=== PATIENT | female | born 1965 | race Caucasian/White ===

== ENCOUNTER 2022-10-14 13:50 | Outpatient (OUT) | payer BC, SELFPAY ==
--- NOTE | 2022-10-14 14:03 | XR_ITS ---
The [address] [address] Patient Name: CHINO SANDERS MRN: [id number] date: 1965 Sex: F Assigned Patient Location: [place] Current Patient Location: [place] Accession/Order Number: [id number] Exam Date: 10/14/2022 14:31 Report Date: 10/16/2022 17:19 At the request of: NON-STAFF PHYSICIAN Procedure: XR abdomen 1V EXAM: XR abdomen 1V HISTORY: Kidney stone N20.0 COMPARISON: None. TECHNIQUE: Abdominal X-ray, 1 view FINDINGS: Support devices: None. Bowel: Unremarkable bowel gas pattern. No bowel dilatation. Constipation. There are 0.2 cm and 0.3 cm calcific density overlying the right and left kidneys respectively, may represent nephrolithiasis.. Cholecystectomy clips are seen overlying the right upper abdomen. Additional findings: None. XR/XR abdomen 1V IMPRESSION: 0.2 cm and 0.3 cm calcific density overlying the right and left kidneys respectively, may represent nephrolithiasis.. Electronically authenticated by: BHARAT HARRIS Date: 10/16/2022 17:19
--- NOTE | 2022-10-14 14:07 | US_ITS ---
The [address] [address] Patient Name: CHINO SANDERS MRN: [id number] date: 1965 Sex: F Assigned Patient Location: Current Patient Location: Accession/Order Number: [id number] Exam Date: 10/14/2022 14:08 Report Date: 10/16/2022 07:35 At the request of: NON-STAFF PHYSICIAN Procedure: US renal BI EXAM: Renal ultrasound CLINICAL INDICATION: Kidney stone. TECHNIQUE: Grayscale and color Doppler imaging was obtained of both kidneys. FINDINGS: RIGHT: No hydronephrosis. Cortical echogenicity and thickness is preserved. The kidney measures 9.3 cm length. No abnormal renal masses identified. Multiple echogenic foci along the calyces measuring up to 3 mm. LEFT: No hydronephrosis. Cortical echogenicity and thickness is preserved. The kidney measures 9.5 cm length. No abnormal renal masses identified. Echogenic focus along a calyx measuring up to 3 mm. US/US renal BI IMPRESSION: 1. No hydronephrosis. 2. Bilateral nephrolithiasis. Electronically authenticated by: ЕЛЕНА VALDEZ Date: 10/16/2022 07:35
== END 2022-10-14 13:51 | disposition home or self-care (01) ==
LOC: US 13:57
DX: N20.0 Calculus of kidney (principal)
CPT/HCPCS: 74018; 76775

== ENCOUNTER 2022-12-19 12:40 | Outpatient (OUT) | payer BC, SELFPAY ==
--- NOTE | 2022-12-19 12:44 | MR_ITS ---
The [address] [address] Patient Name: CHINO SANDERS MRN: [id number] date: 1965 Sex: F Assigned Patient Location: MRI Current Patient Location: MRI Accession/Order Number: [id number] Exam Date: 12/19/2022 13:00 Report Date: 12/19/2022 14:05 At the request of: NON-STAFF PHYSICIAN Procedure: MR head/brain wo/w con MR head/brain wo/w con, 12/19/2022 1:00 PM EDT INDICATION: Malignant Neoplasm Of Lung C34.12 COMPARISON: Prior MRI of brain dated 07/07/2022 TECHNIQUE: Multiplanar, multisequential MRI images of brain were obtained without and with injection of contrast. FINDINGS: The cerebral sulci as well as ventricular system are appropriate for age. There is no restricted diffusion. Hyperintensities on T2 and FLAIR images in the zamora radiata and centrum semiovale with sparing of U fibers are nonspecific, most likely due to posttreatment changes. There is no intracranial mass, mass effect, midline shift, intra or extra-axial fluid collection or large hemorrhage. No abnormal enhancing lesion is noted. Normal flow-void in the intracranial vessels is noted. The visualized portions of orbits, mastoid air cells as well as paranasal sinuses are unremarkable. MR/MR head/brain wo/w con IMPRESSION: No acute intracranial process is noted. No evidence of metastasis in the current study. Electronically authenticated by: IRAJ PENALOZA Date: 12/19/2022 14:05
== END 2022-12-19 12:41 | disposition home or self-care (01) ==
LOC: MRI 12:41
DX: C34.12 Malignant neoplasm of upper lobe, left bronchus or lung (principal)
CPT/HCPCS: 70553; A9575

== ENCOUNTER 2023-02-14 15:25 | Outpatient (OUT) | payer BC, SELFPAY ==
[2023-02-14 15:50] LABS: Hematocrit 31.6 % (36.0-48.0); Hemoglobin 10.1 g/dL (12.0-16.0); Mean Corpuscular Hemoglobin 37.8 pg (26.7-34.0); Mean Corpuscular Volume 118.4 fL (81.0-99.0); Mean Platelet Volume 9.1 fL (9.5-13.5); Platelet Count 220 10^3/uL (150-450); Red Blood Count 2.67 10^6/uL (4.20-5.40); Red Cell Distribution Width 14.4 % (11.0-15.0); White Blood Count 7.6 10^3/uL (4.0-11.0)
[2023-02-14 16:07] LABS: Eosinophils Absolute Manual 0.07 10^3/uL (0.00-0.70); Lymphocytes Absolute Manual 1.36 10^3/uL (1.20-3.80); Segmented Neut Absolute Manual 5.85 10^3/uL (1.4-6.5)
[2023-02-14 16:08] LABS: Anisocytosis 1+; Macrocytosis 2+
[2023-02-14 16:36] LABS: Alanine Aminotransferase 13 U/L (14-59); Albumin Globulin Ratio 0.8; Albumin Level 2.9 g/dL (3.4-5.0); Alkaline Phosphatase 118 U/L (46-116); Anion Gap 10.4; Aspartate Amino Transferase 17 U/L (15-37); BUN Creatinine Ratio 16.7; Bilirubin Total 0.3 mg/dL (0.2-1.0); Calcium 8.5 mg/dL (8.5-10.1); Carbon Dioxide 29.3 mmol/L (21.0-32.0); Chloride 101 mmol/L (98-107); Estimated GFR (African America >60 (>=60); Estimated GFR (Non-African Ame >60 (>=60); Globulin 3.5 g/dL; Glucose 92 mg/dL (74-106); Potassium 4.7 mmol/L (3.5-5.1); Sodium 136 mmol/L (136-145); Thyroid Stimulating Hormone 0.826 uIU/mL (0.358-3.740); Total Protein 6.4 g/dL (6.4-8.2)
== END 2023-02-14 15:26 | disposition home or self-care (01) ==
LOC: LAB 15:30
PROVIDERS: Visit Provider Physician Assistant Medical
DX: D64.9 Anemia, unspecified (principal); C34.12 Malignant neoplasm of upper lobe, left bronchus or lung; R53.81 Other malaise; R53.83 Other fatigue
CPT/HCPCS: 36415; 80053; 84443; 85027

== ENCOUNTER 2023-04-27 12:29 | Outpatient (OUT) | payer BC, SELFPAY ==
--- NOTE | 2023-04-27 12:35 | MR_ITS ---
The [address] [address] Patient Name: CHINO SANDERS MRN: [id number] date: 1965 Sex: F Assigned Patient Location: MRI Current Patient Location: MRI Accession/Order Number: [id number] Exam Date: 04/27/2023 12:55 Report Date: 04/27/2023 13:53 At the request of: RAPHAEL JOLLEY Procedure: MR head/brain wo/w con EXAM: MR head/brain wo/w con HISTORY: malignant neoplasm of hilus of lung C34.00 COMPARISON: Brain MRI 12/19/2022. Technique: Multiplanar T1-weighted, axial FLAIR, and susceptibility images were obtained without intravenous contrast. Following intravenous gadolinium-based contrast administration, axial T2-weighted, diffusion, and T1-weighted images (in multiple planes) were obtained. Contrast: 7 mL Dotarem Findings: There is no mass effect, midline shift, or evidence of intracranial hemorrhage. The ventricles are proportionate to the cerebral sulci. Normal major vascular intracranial flow-voids. There is marked, confluent high signal intensity abnormality on T2/FLAIR primarily throughout the periventricular white matter with relative sparing of the subcortical U fibers, which is nonspecific, however which may be seen with post treatment changes, such as chemotherapy induced leukoencephalopathy and/or sequelae of underlying small vessel ischemic disease. Mild, patchy nonspecific high signal intensity abnormality is also seen in the lenard. There is moderate generalized cerebral atrophy. Postcontrast images demonstrate no abnormal intracranial enhancement. No abnormality of the skull marrow signal. There is a left mastoid air cell effusion and minimal fluid in the right mastoid air cells. Paranasal sinuses appear relatively clear. The orbits are grossly unremarkable. MR/MR head/brain wo/w con Impression: No convincing evidence for metastatic disease of the head or abnormal enhancement. Chronic, diffuse white matter changes are again seen. Electronically authenticated by: MERRY SILVA Date: 04/27/2023 13:53
== END 2023-04-27 12:30 | disposition home or self-care (01) ==
LOC: MRI 12:29
PROVIDERS: Visit Provider Physician Assistant Medical
DX: C34.00 Malignant neoplasm of unspecified main bronchus (principal); R53.81 Other malaise; R53.83 Other fatigue; R51.9 Headache, unspecified
CPT/HCPCS: 70553; A9575

== ENCOUNTER 2023-11-03 09:58 | Outpatient (OUT) | payer BC, SELFPAY ==
--- NOTE | 2023-11-03 10:07 | US_ITS ---
The [address] [address] Patient Name: CHINO SANDERS MRN: [id number] date: 1965 Sex: F Assigned Patient Location: US Current Patient Location: US Accession/Order Number: [id number] Exam Date: 11/03/2023 10:26 Report Date: 11/03/2023 11:06 At the request of: NASRIN RINCON Procedure: US renal BI EXAMINATION: US renal BI HISTORY: Renal stone COMPARISON: Ultrasound kidneys 10/14/2022 TECHNIQUE: Ultrasound examination was performed of the kidneys and urinary bladder. FINDINGS: RIGHT KIDNEY: Contain several nonobstructing stones, largest is 2 mm. Mild cortical thinning. Normal parenchymal echogenicity. Color Doppler demonstrates blood flow within the kidney. Kidney: 8.4 x 4.1 x 3.5 cm LEFT KIDNEY: No evidence of pelvocaliectasis, mass, or calculi. Mild cortical thinning. Normal parenchymal echogenicity. Color Doppler demonstrates blood flow within the kidney. Kidney: 8.0 x 3.7 x 4.2 cm BLADDER: No visible wall thickening, mass, or calculi. US/US renal BI IMPRESSION: 1. Nonobstructing right nephrolithiasis. 2. Minimal cortical thinning bilaterally; likely age related. Electronically authenticated by: SARA KIDD Date: 11/03/2023 11:06
--- NOTE | 2023-11-03 10:25 | XR_ITS ---
The [address] [address] Patient Name: CHINO SANDERS MRN: [id number] date: 1965 Sex: F Assigned Patient Location: US Current Patient Location: US Accession/Order Number: [id number] Exam Date: 11/03/2023 10:20 Report Date: 11/03/2023 10:50 At the request of: NASRIN RINCON Procedure: XR abdomen 1V EXAMINATION: XR abdomen 1V HISTORY: Renal stone COMPARISON: XR abdomen 10/14/2022 FINDINGS: KIDNEY/URETER - RIGHT: No visible renal or ureteral calcifications. KIDNEY/URETER - LEFT: No visible renal or ureteral calcifications. PELVIS: Numerous pelvic calcifications which appear grossly stable with most favoring phleboliths. BOWEL: No abnormal dilation or deviation. BONES: No acute abnormality. OTHER: Negative. No abnormal gaseous collections. XR/XR abdomen 1V IMPRESSION: 1. No visible urinary tract calculi, but evaluation is limited by dense overlying bowel content. 2. No appreciable ureteral stones, but there are numerous pelvic calcifications. A distal ureteral stone cannot be excluded. Electronically authenticated by: SARA KIDD Date: 11/03/2023 10:50
== END 2023-11-03 09:59 | disposition home or self-care (01) ==
LOC: US 09:58
PROVIDERS: Visit Provider Physician Assistant
DX: N20.0 Calculus of kidney (principal)
CPT/HCPCS: 74018; 76775

== ENCOUNTER 2024-01-26 12:49 | Outpatient (OUT) | payer BC, SELFPAY ==
--- NOTE | 2024-01-26 12:52 | MR_ITS ---
The [address] [address] Patient Name: CHINO SANDERS MRN: [id number] date: 1965 Sex: F Assigned Patient Location: MRI Current Patient Location: MRI Accession/Order Number: [id number] Exam Date: 01/26/2024 13:00 Report Date: 01/26/2024 15:54 At the request of: MICHAEL RDZ Procedure: MR head/brain wo/w con EXAM: MR head/brain wo/w con HISTORY: Malignant Neoplasm Of Lung, Syncope And Collapse COMPARISON: MRI brain 04/27/2023, 12/19/2022, 07/07/2022. TECHNIQUE: Multisequence MRI brain was performed with and without intravenous contrast. FINDINGS: Exam is distorted secondary to motion artifact. Findings are made within these confines. There is no acute infarct, no midline shift or abnormal extraaxial fluid collections. There is a 0.8 x 0.7 cm cortical/subcortical rim enhancing rounded lesion with restricted diffusion in the right frontal lobe (series 49488/14), new since 04/27/2023. There is surrounding mild vasogenic edema. There is mild to moderate cerebral volume loss. Redemonstrated is nonspecific confluent T2/FLAIR signal abnormality in the central lenard and supratentorial white matter. The major intracranial flow voids are visualized. The cerebellar tonsils are normal in position. The orbits demonstrate no suspicious enhancement or any focal lesions. The paranasal sinuses show no air-fluid level. There is chronic bilateral mastoid effusion, left greater than right. The calvarium and extracranial soft tissues are unremarkable. MR/MR head/brain wo/w con IMPRESSION: Within the limitations of motion artifact, no discrete acute intracranial abnormality identified. Interval development of a 0.8 x 0.7 cm cortical/subcortical rim-enhancing lesion with mild surrounding vasogenic edema in the right frontal lobe since 04/27/2023, suggestive of intracranial metastasis. Stable nonspecific supratentorial and central pontine white matter changes, likely relates to combination of posttreatment related change and small vessel disease, [id number] cerebral atrophy. Electronically authenticated by: ISSA RUSHING Date: 01/26/2024 15:54
== END 2024-01-26 12:50 | disposition home or self-care (01) ==
LOC: MRI 12:49
PROVIDERS: Visit Provider Internal Medicine Hematology & Oncology
DX: C34.90 Malignant neoplasm of unspecified part of unspecified bronchus or lung (principal); R55 Syncope and collapse
CPT/HCPCS: 70553; A9575

== ENCOUNTER 2024-03-29 13:20 | Outpatient (OUT) | payer BC, SELFPAY | END 2024-03-29 13:21 | disposition home or self-care (01) | PROVIDERS: Visit Provider Physician Assistant Medical | DX: R30.0 Dysuria (principal); C34.00 Malignant neoplasm of unspecified main bronchus | CPT/HCPCS: 81003; 87086 ==

== ENCOUNTER 2024-05-07 14:53 | Outpatient (OUT) | payer BC, SELFPAY ==
--- NOTE | 2024-05-07 14:55 | XR_ITS ---
The [address] [address] Patient Name: CHINO SANDERS MRN: [id number] date: 1965 Sex: F Assigned Patient Location: US Current Patient Location: US Accession/Order Number: [id number] Exam Date: 05/07/2024 15:44 Report Date: 05/07/2024 15:47 At the request of: NASRIN DINH Procedure: XR abdomen 1V SINGLE VIEW ABDOMEN COMPARISON: 11/02/2021 and 11/03/2023 CLINICAL DATA: Follow-up right-sided kidney stone. Supine view of the abdomen and pelvis was obtained. There is air within the stomach as well as small and large bowel loops. There is also stool throughout the colon. Both kidneys are obscured, greater on the left. No obvious radiopaque renal stones are identified. Pelvic phleboliths are again seen. There is atherosclerotic disease. No soft tissue masses are noted. There are mild degenerative changes at the spine. There are hemostasis clips from prior cholecystectomy. XR/XR abdomen 1V IMPRESSION: NONSPECIFIC BOWEL GAS PATTERN. NO OBVIOUS RADIOPAQUE CALCULI. Impression dictated by: Fany Shah M.D.05/07/2024 3:47 PM Dictation Location: [place] [address] Electronically authenticated by: [id number] Y Date: 05/07/2024 15:47
--- NOTE | 2024-05-07 14:55 | US_ITS ---
The [address] [address] Patient Name: CHINO SANDERS MRN: [id number] date: 1965 Sex: F Assigned Patient Location: US Current Patient Location: US Accession/Order Number: [id number] Exam Date: 05/07/2024 16:06 Report Date: 05/07/2024 16:10 At the request of: NASRIN DINH Procedure: US renal BI BILATERAL RENAL AND BLADDER ULTRASOUND CLINICAL HISTORY: Follow-up kidney stones COMPARISON: 11/03/2023 Estimation of renal size is approximately 8.8 cm on the right and 10.0 on the left. There are multiple echogenic foci within the right kidney suggesting stones. The largest is at the lower pole measuring 4 mm. No hydronephrosis is seen. No renal mass lesions were imaged. There is no perinephric fluid. The urinary bladder is poorly distended with a volume of 23 mL. This limits evaluation. US/US renal BI IMPRESSION: RIGHT NEPHROLITHIASIS. NO OBSTRUCTIVE UROPATHY. Impression dictated by: Fany Shah M.D.05/07/2024 4:10 PM Dictation Location: [place] [address] Electronically authenticated by: [id number] Y Date: 05/07/2024 16:10
== END 2024-05-07 14:54 | disposition home or self-care (01) ==
LOC: US 14:53
PROVIDERS: Visit Provider Physician Assistant
DX: N20.0 Calculus of kidney (principal)
CPT/HCPCS: 74018; 76775

== ENCOUNTER 2024-06-07 18:34 | Emergency (ER) | payer BC, SELFPAY ==
[2024-06-07] VITALS (21 sets, daily range): BP systolic 158–172; BP diastolic 72–101; PULSE 78–100; TEMP 37.1; O2SAT 97–100; BMI 18.0
--- OUTSIDE RECORDS SUMMARY | 2024-06-07 18:45 | XMS_ITS | CCD ---
Author Organization [facility] Care Team Providers Care Dye Lab Technician Name Role Phone Milton Madison Primary Care Provider Gasper Fong Unavailable Shaniqua OWUSU Mohamed Unavailable Shaniqua OWUSU Mohamed Unavailable [phone] Onofre OWUSU Stacy Unavailable Chris Blackburn Unavailable Milton Madison Primary Care Provider Gasper Fong Unavailable [phone] Shaniqua OWUSU, Mohamed Unavailable Onofre OWUSU Stacy Unavailable [phone] DO Finn Mejias Attending Provider NO FAMILY, PHYSICIAN Primary Care Provider Unava ilable Milton Madison Primary Care Provider Gasper Fong Unavailable Shaniqua OWUSU, Mohamed Unavailable [phone] Onofre OWUSU Stacy Unavailable [phone] Gilson Vergara Unavailable Milton Madison Primary Care Provider Gasper Fong Unavailable Shaniqua OWUSU, Mohamed Unavailable [phone] Onofre OWUSU Stacy Unavailable Mert Mcgovern MD E Unavailable NO FAMILY, PHYSICIAN Primary Care Unavailable Finn Mejias Attending Unavailabl e Randell, Finn Byrnes Admitting Unavailabl e ONOFRE, STACY Attending Unavailable ONOFRE, STACY Admitting Unavailable REQUEST, NONE LISTED Primary Care Unavaila ble ZIEBER, DR SARA [place] Consulting Unavailable KARRASHARD, STACY Consulting Unavailable MISC, DR GIRALDO Attending Unavailable REQUEST, NONE LISTED Primary Care Unavaila ble MISC, DR GIRALDO Consulting Unavailable MISC, DR GIRALDO Admitting Unavailable CHE, REI Consulting Unavailable SAMREEN, DR NOEMÍ Byrnes Consulting Unavailable SAMREEN, DR NOEMÍ Byrnes Attending Unavailable REQUEST, NONE LISTED Primary Care Unavaila ble SAMREEN, DR NOEMÍ Byrnes Admitting Unavailable RANDELL, MERRY Consulting Unavailable RANDELL, MERRY Attending Unavailable RANDELL, MERRY Admitting Unavailable REQUEST, NONE LISTED Primary Care Unavaila ble MCKENZIE, JESSIKA Attending Unavailable NEFCY, TORIN Consulting Unavailable MCKENZIE, JESSIKA Admitting Unavailable REQUEST, NONE LISTED Primary Care Unavaila ble ZITA, DENISE Consulting Unavailable MCKENZIE, JESSIKA Consulting Unavailable SAMREEN, DR NOEMÍ Byrnes Admitting Unavailable SAMREEN, DR NOEMÍ Byrnes Attending Unavailable REQUEST, NONE LISTED Primary Care Unavaila ble WEST, DR CHRIS Poole Consulting Unavailable SAMREEN, DR NOEMÍ Byrnes Consulting Unavailable SAMREEN, DR NOEMÍ Byrnes Admitting Unavailable SAMREEN, DR NOEMÍ Byrnes Consulting Unavailable SAMREEN, DR NOEMÍ Byrnes Attending Unavailable REQUEST, NONE LISTED Primary Care Unavaila ble SAMREEN, DR NOEMÍ Byrnes Admitting Unavailable SAMREEN, DR NOEMÍ Byrnes Consulting Unavailable SAMREEN, DR NOEMÍ Byrnes Attending Unavailable REQUEST, NONE LISTED Primary Care Unavaila ble Onofre OWSUU, Stacy Unavailable Judi Howell Unavailable JESSIKA ESQUIVEL Primary Care Physician [phone] MINA WALDEN Attending Unavailable STACY ADHIKARI Referring Unavailable AMBER PASTRANA Referring Unavailable JOSE RAFAEL FERNANDES Attending Unavailable Gasper Fong DO Unavailable Brianda Lewis Unavailable Luis Felipe SPIVEY, Mila Desir Unavailable Samreen PA-C, Noemí M Unavailable [phone] Reba OWUSU, Arya Unavailable Onofre OWUSU, Stacy Unavailable [phone] Onofre OWUSU, Stacy Unavailable Milton Madison Primary Care Provider Milton Madison DO Primary Care Provider Unavailable Primary Care Provider Unavailabl e Randell SINGH, Christopher Unavailable FIDELIA GARCIA Attending Unavailable Arimo , Gasper Wellsw Unavailable Unav ailable Arimo DO, Gasper Wellsw Unavailable SAMREEN, NOEMÍ M Referring Unavailable KARAMLOU, STACY Referring Unavailable ABHYANKAR, ARYA Referring Unavailable ARGENIS, ALFREDO Referring Unavailable ARGENIS, ALFREDO Admitting Unavailable ARGENIS, ALFREDO Referring Unavailable ARGENIS, ALFREDO Attending Unavailable SAMREEN, NOEMÍ M Referring Unavailable KARAMLOU, STACY Attending Unavailable SAMREEN, NOEMÍ M Referring Unavailable KARAMLOU, STACY Referring Unavailable KARAMLOU, STACY Referring Unavailable SAMREEN, NOEMÍ M Referring Unavailable SAMREEN, NOEMÍ M Referring Unavailable KARAMLOU, STACY Attending Unavailable SAMREEN, NOEMÍ M Referring Unavailable SAMREEN, NOEMÍ M Attending Unavailable KARAMLOU, STACY Referring Unavailable SAMREEN, NOEMÍ M Referring Unavailable JESSIKA CARTER Attending Unavailable ABHYANKAR, ARYA Referring Unavailable ARGENIS, ALFREDO Attending Unavailable ARGENIS, ALFREDO Attending Unavailable ARGENIS, ALFREDO Admitting Unavailable ARGENIS, ALFREDO Referring Unavailable ABHYANKAR, ARYA Referring Unavailable ABHYANKAR, ARYA Attending Unavailable SAMREEN, NOEMÍ M Referring Unavailable SAMREEN, NOEMÍ M Attending Unavailable ABHYANKAR, ARYA Referring Unavailable ARGENIS, ALFREDO Admitting Unavailable ARGENIS, ALFREDO Referring Unavailable ARGENIS, ALFREDO Attending Unavailable ARGENIS, ALFREDO Referring Unavailable SAMREEN, NOEMÍ M Referring Unavailable ABHYANKAR, ARYA Attending Unavailable KARAMLOU, STACY Referring Unavailable SAMREEN, NOEMÍ M Referring Unavailable ABHYANKAR, ARYA Attending Unavailable SAMREEN, NOEMÍ M Referring Unavailable KARAMLOU, STACY Referring Unavailable SAMREEN, NOEMÍ M Attending Unavailable SAMREEN, NOEMÍ M Referring Unavailable KARAMLOU, STACY Referring Unavailable SAMREEN, NOEMÍ M Referring Unavailable SAMREEN, NOEMÍ M Attending Unavailable KARAMLOU, STACY Referring Unavailable SAMREEN, NOEMÍ M Referring Unavailable KARAMLOU, STACY Attending Unavailable ABHYANKAR, ARYA Referring Unavailable ABHYANKAR, ARYA Attending Unavailable SAMREEN, NOEMÍ M Referring Unavailable ABHYANKAR, ARYA Referring Unavailable SAMREEN, NOEMÍ M Referring Unavailable ABHYANKAR, ARYA Referring Unavailable ABHYANKAR, ARYA Attending Unavailable SAMREEN, NOEMÍ M Attending Unavailable SAMREEN, NOEMÍ M Referring Unavailable KARAMLOU, STACY Referring Unavailable JESSIKA ESQUIVEL E Attending Unavailable MCKENZIEJESSIKA IRVIN E Attending Unavailable Allergies Allergy Classification Reported Allergen(s) Allergy Type Date of Onset Reaction(s) Facility Penicillins (antibiotic) (2 sources) Penicillins Drug Allergy 7 Unknown [facility] (12 sources) Penicillins; Translations: [penicillins] Drug Allergy 7 Unknown, Unknown (qualifier value) [facility] (9 sources) Penicillin V Drug Allergy Unknown [email or web address] Other (20 sources) Penicillins Drug Allergy 7 Unknown [facility] (1 source) Penicillins Drug allergy (disorder) 8 [facility] (1 source) Penicillins Drug allergy (disorder) 5 [facility] (2 sources) Penicillins Drug Allergy 7 Unknown [facility] Medications Current Medications Medication Drug Class(es) Dates Sig (Normalized) Sig (Original) 8 hr acetaminophen 650 mg extended release oral tablet (20 sources) Start: 06-06-2017 take 650 mg by mouth once Acetaminophen Active 650 MG PO Once June 06, 2017 12:00am Start: 02-07-2017 take 500 mg by mouth every four hours as needed for pain Tylenol 500 mg, Oral, q4hr, PRN as needed for pain Start Date: 02/07/17 Status: Ordered acetaminophen (T ylenol) 325 MG tablet every 6 (six) hours Active ACETAMINOPHEN (T YLENOL ORAL) Take by mouth. Active ACETAMINOPHEN (T YLENOL ORAL) Take by mouth. 0 Active Comment on above: Take by mouth. [id number] 200 actuat albuterol 0.09 mg/actuat metered dose inhaler (20 sources) beta2-Adrenergic Agonist Start: 06-06-2017 take 1 puff(s) by inhalation every four to six hours Albuterol Sulfate (Proair Hfa) 90 mcg/actuation Hfa Aerosol Inhaler Active 1 PUFF INHALATION EVERY 4-6 HOURS June 06, 2017 12:00am Start: 02-08-2017 take 2 puff(s) by in halation every six hours Pro-Air HFA CFC free 90 mcg/inh MDI 2 puff(s), Inhalation, q6hr Congestion, Refill(s) 0 Start Date: 02/08/17 Status: Ordered Start: 11-26-2016 End: 08-17-2022 take 1 puff(s) by mouth four times daily as needed PROAIR HFA 90 mcg/actuation inhaler INHALE 1 PUFF BY MOUTH 4 TIMES A DAY NEEDED 4 11/26/2016 08/17/2022 Discontinued Comment on above: INHALE 1 PUFF BY YAEL TH 4 TIMES A DAY NEEDED aspirin 81 mg oral tablet (20 sources) Platelet Aggregation Inhibitor, Nonsteroidal Anti-inflammatory Drug Start: 11-01-2022 take 1 mg by mouth once daily Adult Aspirin 81 mg oral tablet, chewable mg tab(s), Chewed, Daily, Refills(s) 0 Start Date: 11/01/22 Status: Ordered take 1 tablet by mouth once drew y aspirin, enteric coated (ASPIRIN, ENTERIC COATED) 81 mg EC tablet Take 81 mg by mouth once daily. Active Comment on above: Take 81 mg by mouth once daily. atorvastatin 40 mg oral tablet (20 sources) HMG-CoA Reductase Inhibitor Start: 3 take 1 tablet by mouth once daily atorvastatin (LIPITOR) 40 mg tablet Take 40 mg by mouth once daily. 06/09/2022 Active Comment on above: Take 40 mg by mouth once daily. buprenorphine 8 mg / naloxone 2 mg sublingual film (20 sources) Partial Opioid Agonist, Opioid Antagonist Start: 3 SUBOXONE 8-2 mg film Indications: Chronic bilateral low back pain without sciatica , Neck pain , Arthritis Dissolve 1 Film under the tongue twice daily for 1 day. Do not start before November 23, 2022. 0 11/23/2022 Active Start: 06-06-2017 Buprenorphine- Naloxone (Suboxone) 8-2 mg Film Active 1 FILM BUCCAL Q24H June 06, 2017 12:00am Start: 12-29-2016 End: 11-16-2022 SUBOXONE 8-2 mg film 0 12/2911/16/2022 Discontinued Start: 03-30-2015 Suboxone 8 mg- 2 mg sublingual film 1.5 strips, SubLingual, Daily, Refill(s) 0, Pain Start Date: 03/30/15 Status: Ordered take 1 tablet under the tongue once daily Suboxone 8-2 MG 1 tablet under the tongu e and allow to dissolve Sublingual Once a day Active Comment on above: Dissolve 1 Film unde r the tongue twice daily for 1 day. Do not start before November 23, 2022. Dissolve under the t ongue once daily. ciprofloxacin 500 mg oral tablet (8 sources) Quinolone Antimicrobial Start: 03-29-19 End: 04-05-19 take 1 tablet by mouth twice daily ciprofloxacin HCl (CIPRO) 500 mg tablet Take 1 tablet by mouth two times a day for 7 days. 14 tablet 03/29/2024 04/05/2024 Active Start: 02-21-2024 End: 02-28-2024 take 1 tablet by mouth twice daily ciprofloxacin HCl (CIPRO) 500 mg tablet Take 1 tablet by mouth two times a day for 7 days. 14 tablet 02/21/2024 02/28/2024 Discontinued Start: 01-25-2023 End: 02-01-2023 take 1 tablet by mouth twice daily ciprofloxacin HCl (CIPRO) 500 mg tablet Take 1 tablet by mouth two times a day for 7 days. 14 tablet 0 01/25/2023 02/01/2023 Active Start: 08-27-2021 End: 09-03-2021 take 1 tablet by mouth twice daily ciprofloxacin HCl (CIPRO) 500 mg tablet Take 1 tablet by mouth twice daily for 7 days. 14 tablet 0 08/27/2021 09/03/2021 Active Comment on above: Take 1 tablet by yael th twice daily for 7 days. Take 1 tablet by yael th two times a day for 7 days. dexamethasone 2 mg oral tablet (20 sources) Corticosteroid Start: 02-20-2024 dexAMETHasone (DECADRON) 2 mg tablet Start the day after your Gamma Knife Procedure: Decadron (dexamethasone) Take 4 mg (2 tablets) daily for 3 days. Take 2 mg (1 tablet) daily for 3 days then Stop Decadron Patient should start on February 20, 2024. 9 tablet 02/20/2024 Active Start: 01-31-2024 End: 02-28-2024 take 1 tablet by mouth twice daily at mealtime dexAMETHasone (DECADRON) 4 mg tablet Take 1 tablet by mouth two times a day with meals. 60 tablet 01/31/2024 02/28/2024 Discontinued dextrose 5 % solution 50 mL with pembrolizumab 100 MG/4ML solution (2 sources) dextrose 5 % nirmal ution 50 mL with pembrolizumab 100 MG/4ML solution Infuse into a venous catheter 1 (one) time Active famotidine 20 mg oral tablet (18 sources) Histamine-2 Receptor Antagonist Start: take 1 tablet by mouth once daily famotidine (PEPCID) 20 mg tablet Take 1 tablet by mouth once daily. 6 tablet 02/19/2024 Active fexofenadine (20 sources) Histamine-1 Receptor Antagonist Start: fexofenadine Oral, Refills(s) 0 Start Date: 09/21/21 Status: Ordered Start: 12-27-2019 End: 06-29-2022 take 1 tablet by mouth twice daily fexofenadine (DORITA) 60 mg tablet Take 60 mg by mouth twice daily. 12/27/2019 06/29/2022 Discontinued (Discontinued by Patient) Dorita Active Comment on above: Take 60 mg by mouth twice daily. folic acid 1 mg oral tablet (20 sources) Start: 09-21-2021 folic acid Daily, Refills(s) 0 Start Date: 09/21/21 Status: Ordered Start: 02-11-2021 End: 12-19-2023 take 1 tablet by mouth once daily folic acid 1 mg tablet take 1 tablet by mouth every day 90 tablet 3 12/19/2023 Active Comment on above: Take 1 tablet by yael th once daily. TAKE 1 TABLET BY YAEL TH EVERY DAY furosemide 20 mg oral tablet (20 sources) Loop Diuretic Start: 10-03-19 End: 02-09-20 take 1 tablet by mouth once daily furosemide (LASIX) 20 mg tablet TAKE 1 TABLET BY MOUTH EVERY DAY 90 tablet 1 02/02/2024 Active iv contrast (will be provided with radiology test) (20 sources) Start: 02-15-20 End: 02-16-20 inject 1 dose intravenously once iv contrast (will be provided with radiology test) Indications: Secondary malignant neoplasm of brain (HCC) MRI Brain Localization Inject, intravenously, once for 1 dose.No IV access, insert saline lock prior to beginning of sedation, infusion, injection of imaging exam.Discontinue saline lock post exam. If Pt. has a central line or IVAD, may access for administration according to line specific nursing protocol.Once exam is complete flush line and de-access according to line specific nursing protocol in the MR contrast administration guidelines link 1 Each 02/15/2024 02/16/2024 Active Start: 02-15-2024 End: 02-16-2024 inject 1 dose intravenously once iv contrast (will be provided with radiology test) Indications: Secondary malignant neoplasm of brain (HCC) MRI Brain Inject, intravenously, once for 1 dose.No IV access, insert saline lock prior to beginning of sedation, infusion, injection of imaging exam.Discontinue saline lock post exam. If Pt. has a central line or IVAD, may access for administration according to line specific nursing protocol.Once exam is complete flush line and de-access according to line specific nursing protocol in the MR contrast administration guidelines link 1 Each 02/15/2024 02/16/2024 Active Start: 12-27-2023 End: 12-28-2023 inject 1 dose intravenously once iv contrast (will be provided with radiology test) MRI Brain Inject, intravenously, once for 1 dose.No IV access, insert saline lock prior to beginning of sedation, infusion, injection of imaging exam.Discontinue saline lock post exam. If Pt. has a central line or IVAD, may access for administration according to line specific nursing protocol.Once exam is complete flush line and de-access according to line specific nursing protocol in the MR contrast administration guidelines link 1 Each 12/27/2023 12/28/2023 Start: 12-27-2023 End: 12-28-2023 inject 1 dose intravenously once iv contrast (will be provided with radiology test) MRI Brain Inject, intravenously, once for 1 dose.No IV access, insert saline lock prior to beginning of sedation, infusion, injection of imaging exam.Discontinue saline lock post exam. If Pt. has a central line or IVAD, may access for administration according to line specific nursing protocol.Once exam is complete flush line and de-access according to line specific nursing protocol in the MR contrast administration guidelines link 1 Each 12/27/2023 12/28/2023 Active Start: 08-22-2023 End: 08-23-2023 iv contrast (will be provide d with radiology test) Indications: Malignant neoplasm of hilus of lung, unspecified laterality (HCC) CT Chest W -Inject, intravenously, once for 1 dose.No IV access, insert saline lock prior to the beginning of sedation, infusion, injection of imaging exam. Discontinue saline lock post exam. If Pt. has a central line or IVAD, may access for administration according to line specific nursing protocol. Once exam is complete flush line and de-access according to line specific nursing protocol in the CT contrast administration guidelines link. 1 Each 0 08/22/2023 08/23/2023 Active Start: 10-13-2022 End: 11-16-2022 iv contrast (will be provide d with radiology test) Indications: Malignant neoplasm of unspecified part of unspecified bronchus or lung (HCC) , Pre-op testing , SOB (shortness of breath) CT Chest W -Inject, intravenously, once for 1 dose.No IV access, insert saline lock prior to the beginning of sedation, infusion, injection of imaging exam. Discontinue saline lock post exam. If Pt. has a central line or IVAD, may access for administration according to line specific nursing protocol. Once exam is complete flush line and de-access according to line specific nursing protocol in the CT contrast administration guidelines link. 1 Each 10/13/2022 11/16/2022 Discontinued Start: 10-13-2022 iv contrast (w ill be provided with radiology test) Indications: Malignant neoplasm of unspecified part of unspecified bronchus or lung (HCC) , Pre-op testing , SOB (shortness of breath) CT Chest W -Inject, intravenously, once for 1 dose.No IV access, insert saline lock prior to the beginning of sedation, infusion, injection of imaging exam. Discontinue saline lock post exam. If Pt. has a central line or IVAD, may access for administration according to line specific nursing protocol. Once exam is complete flush line and de-access according to line specific nursing protocol in the CT contrast administration guidelines link. 1 Each 0 10/13/2022 Active Start: 04-07-2022 End: 04-08-2022 iv contrast (will be provide d with radiology test) Indications: Malignant neoplasm of unspecified part of unspecified bronchus or lung (HCC) CT Chest W -Inject, intravenously, once for 1 dose.No IV access, insert saline lock prior to the beginning of sedation, infusion, injection of imaging exam. Discontinue saline lock post exam. If Pt. has a central line or IVAD, may access for administration according to line specific nursing protocol. Once exam is complete flush line and de-access according to line specific nursing protocol in the CT contrast administration guidelines link. 1 Each 0 04/07/2022 04/08/2022 Active Start: 09-29-2021 End: 06-29-2022 iv contrast (will be provide d with radiology test) CT ABD/PEL -Inject, intravenously, once for 1 dose.No IV access, insert saline lock prior to the beginning of sedation, infusion, injection of imaging exam. Discontinue saline lock post exam. If Pt. has a central line or IVAD, may access for administration according to line specific nursing protocol. Once exam is complete flush line and de-access according to line specific nursing protocol in the CT contrast administration guidelines link. 1 Each 09/29/2021 06/29/2022 Discontinued (Discontinued by Patient) Start: 09-29-2021 End: 06-29-2022 iv contrast (will be provide d with radiology test) CT Chest W -Inject, intravenously, once for 1 dose.No IV access, insert saline lock prior to the beginning of sedation, infusion, injection of imaging exam. Discontinue saline lock post exam. If Pt. has a central line or IVAD, may access for administration according to line specific nursing protocol. Once exam is complete flush line and de-access according to line specific nursing protocol in the CT contrast administration guidelines link. 1 Each 09/29/2021 06/29/2022 Discontinued (Discontinued by Patient) Start: 09-29-2021 iv contrast (w ill be provided with radiology test) CT ABD/PEL -Inject, intravenously, once for 1 dose.No IV access, insert saline lock prior to the beginning of sedation, infusion, injection of imaging exam. Discontinue saline lock post exam. If Pt. has a central line or IVAD, may access for administration according to line specific nursing protocol. Once exam is complete flush line and de-access according to line specific nursing protocol in the CT contrast administration guidelines link. 1 Each 0 09/29/2021 Active Start: 09-29-2021 iv contrast (w ill be provided with radiology test) CT Chest W -Inject, intravenously, once for 1 dose.No IV access, insert saline lock prior to the beginning of sedation, infusion, injection of imaging exam. Discontinue saline lock post exam. If Pt. has a central line or IVAD, may access for administration according to line specific nursing protocol. Once exam is complete flush line and de-access according to line specific nursing protocol in the CT contrast administration guidelines link. 1 Each 0 09/29/2021 Active Start: 09-14-2021 End: 09-15-2021 iv contrast (will be provide d with radiology test) CT Chest W -Inject, intravenously, once for 1 dose.No IV access, insert saline lock prior to the beginning of sedation, infusion, injection of imaging exam. Discontinue saline lock post exam. If Pt. has a central line or IVAD, may access for administration according to line specific nursing protocol. Once exam is complete flush line and de-access according to line specific nursing protocol in the CT contrast administration guidelines link. 1 Each 0 09/14/2021 09/15/2021 Active Start: 09-14-2021 End: 09-15-2021 inject 1 dose intravenously once iv contrast (will be provided with radiology test) MRI Brain Inject, intravenously, once for 1 dose.No IV access, insert saline lock prior to beginning of sedation, infusion, injection of imaging exam.Discontinue saline lock post exam. If Pt. has a central line or IVAD, may access for administration according to line specific nursing protocol.Once exam is complete flush line and de-access according to line specific nursing protocol in the MR contrast administration guidelines link 1 Each 0 09/14/2021 09/15/2021 Active Comment on above: CT Chest W -Inject, intravenously, once for 1 dose.No IV access, insert saline lock prior to the beginning of sedation, infusion, injection of imaging exam. Discontinue saline lock post exam. If Pt. has a central line or IVAD, may access for administration according to line specific nursing protocol. Once exam is complete flush line and de-access according to line specific nursing protocol in the CT contrast administration guidelines link. MRI Brain Inject, in travenously, once for 1 dose.No IV access, insert saline lock prior to beginning of sedation, infusion, injection of imaging exam.Discontinue saline lock post exam. If Pt. has a central line or IVAD, may access for administration according to line specific nursing protocol.Once exam is complete flush line and de-access according to line specific nursing protocol in the MR contrast administration guidelines link CT ABD/PEL -Inject, intravenously, once for 1 dose.No IV access, insert saline lock prior to the beginning of sedation, infusion, injection of imaging exam. Discontinue saline lock post exam. If Pt. has a central line or IVAD, may access for administration according to line specific nursing protocol. Once exam is complete flush line and de-access according to line specific nursing protocol in the CT contrast administration guidelines link. Nature's Bounty Probiotic (5 sources) Start: Nature's Bounty Probiotic Oral, Daily, Refill(s) 0 Start Date: 09/21/21 Status: Ordered nitrofurantoin, macrocrystals 25 mg / nitrofurantoin, monohydrate 75 mg oral capsule (1 source) Nitrofuran Antibacterial Start: End: take 1 capsule by mouth twice daily nitrofurantoin monohydrate and macrocrystal (MACROBID) 100 mg capsule Take 1 capsule by mouth two times a day for 7 days. 14 capsule 0 06/23/2023 06/30/2023 Active Comment on above: Take 1 capsule by [facility] two times a day for 7 days. nystatin [id number] unt/ml oral suspension (4 sources) Polyene Antifungal Start: End: take 5 mL by mouth four times daily nystatin (MYCOSTATIN) 100,000 unit/mL suspension Take 5 mL by mouth four times daily for 7 days. SWISH AND SWALLOW DIRECTED 140 mL 11/30/2023 12/07/2023 Active Start: 02-22-2022 End: 03-08-2022 take 5 mL by mouth four times daily nystatin (MYCOSTATIN) 100,000 unit/mL suspension Take 5 mL by mouth four times daily for 14 days. Swish and swallow. 280 mL 0 02/22/2022 03/08/2022 Active Start: 12-02-2021 End: 12-16-2021 take 5 mL by mouth four times daily nystatin (MYCOSTATIN) 100,000 unit/mL suspension Indications: Thrush Take 5 mL by mouth four times daily for 14 days. Swish and swallow. 280 mL 0 12/02/2021 12/16/2021 Active Start: 10-19-2021 End: 11-02-2021 take 5 mL by mouth four times daily nystatin (MYCOSTATIN) 100,000 unit/mL suspension Take 5 mL by mouth four times daily for 14 days. Swish and swallow. 280 mL 0 10/19/2021 11/02/2021 Active Comment on above: Take 5 mL by mouth f our times daily for 14 days. Swish and swallow. OLANZapine 5 mg oral tablet (10 sources) Atypical Antipsychotic Start: End: 4 take 1 tablet by mouth at bedtime OLANZapine (ZyPREXA) 5 MG tablet Take 1 tablet by mouth at bedtime 08/22/2023 Active ondansetron 8 mg oral tablet (20 sources) Serotonin-3 Receptor Antagonist Start: 4 End: 5 take 1 tablet by mouth every eight hours as needed for nausea ondansetron (ZOFRAN) 8 mg tablet Indications: Malignant neoplasm of hilus of lung, unspecified laterality (HCC) , Anemia, unspecified type Take 1 tablet by mouth every 8 hours as needed for nausea/vomiting. 90 tablet 04/29/2024 Active Start: 05-12-2023 End: 12-15-2023 take 1 tablet by mouth every eight hours as needed for nausea ondansetron (ZOFRAN) 8 mg tablet Indications: Malignant neoplasm of hilus of lung, unspecified laterality (HCC) , Anemia, unspecified type Take 1 tablet by mouth every 8 hours as needed for nausea/vomiting. 30 tablet 3 11/15/2023 12/15/2023 Discontinued Start: 05-28-2018 End: 03-26-2023 take 1 tablet by mouth every eight hours as needed for nausea ondansetron (ZOFRAN) 8 mg tablet Indications: Malignant neoplasm of hilus of lung, unspecified laterality (HCC) , Anemia, unspecified type Take 1 tablet by mouth every 8 hours as needed for Nausea/Vomiting. 30 tablet 3 05/28/2018 08/16/2021 Discontinued Start: 03-29-2018 take 1 tablet by yael th three times daily as needed for nausea Zofran 8 mg Tab 8 mg = 1 tab(s), Oral, TID, PRN Nausea, # 9 tab(s), Refills(s) 0 Start Date: 03/29/18 Status: Ordered Start: 06-06-2017 take 1 tablet by yael th once daily Ondansetron (Zofran Odt) 8 mg Tablet,Disintegrating Active 8 MG PO Daily June 06, 2017 12:00am Zofran Active Comment on above: Take 1 tablet by yael th every 8 hours as needed for nausea/vomiting. pantoprazole 40 mg delayed release oral tablet (20 sources) Proton Pump Inhibitor Start: 06-06-19 25 take 1 tablet by mouth twice daily pantoprazole DR (PROTONIX) 40 mg tablet Take 1 tablet by mouth two times a day. 60 tablet 1 06/05/2024 Active Start: 11-15-2022 End: 06-05-2024 take 1 tablet by mouth every twelve hours [address] (PROTONIX) 40 mg tablet Take 1 tablet by mouth every 12 (twelve) hours. 11/15/2022 06/05/2024 Discontinued Start: 11-21-2019 End: 11-05-2022 take 1 tablet by mouth twice daily Pantoprazole [address] Tab 40 mg, Oral, BID, X 6 months, # 60 tab(s), Refills(s) 5, Pharmacy: [id number], 154.9, cm, 11/21/19 12:51:00 EDT, Height/Length Dosing, 39, kg, 11/21/19 12:51:00 EDT, Weight Dosing Start Date: 11/21/19 Stop Date: 11/05/22 Status: Ordered Start: 06-06-2017 take 40 mg by mouth once daily Pantoprazole Active 40 MG PO Daily June 06, 2017 12:00am End: 09-29-2021 pantoprazole sodium (PROTONI X ORAL) Take 40 mg by mouth. Patient was taking this before and stopped in June. Will restart today, 10/24/17 09/29/2021 Discontinued take 1 tablet by yael th every twenty-four hours Protonix 20 MG 1 tablet Orally Once a day Active Comment on above: Take 40 mg by mouth. Patient was taking this before and stopped in June. Will restart today, 10/24/17 Take 1 tablet by yael th every 12 (twelve) hours. pembrolizumab 50 mg injection (1 source) Programmed Receptor-1 Blocking Antibody Start: Keytruda 50 mg intravenous injection Refills(s) 0 Start Date: 11/07/23 Status: Ordered polyethylene glycol 3350 41358 mg powder for oral solution (1 source) Osmotic Laxative Start: End: polyethylene glycol 3350 17 gram packet Take 1 Packet by mouth once daily for 7 days. For prevention of postoperative opioid induced constipation. Dissolve dose in 4 - 8 ounces of liquid and take as directed. 7 Packet 0 11/17/2022 11/24/2022 Active Comment on above: Take 1 Packet by yael once daily for 7 days. For prevention of postoperative opioid induced constipation. Dissolve dose in 4 - 8 ounces of liquid and take as directed. microencapsulated potassium chloride 20 meq extended release oral tablet (20 sources) Start: End: take 1 tablet by mouth once daily KLOR-CON M20 20 mEq tablet TAKE 1 TABLET BY MOUTH EVERY DAY 30 tablet 01/26/2024 Active Start: 10-03-2023 End: 10-03-2023 potassium chloride ER 20 mEq tab(s) (KLOR-CON) Start: 10-03-2023 End: 11-02-2023 take 1 tablet by mouth once daily potassium chloride ER (KLOR-CON) 20 mEq tablet Take 1 tablet by mouth once daily. 30 tablet 0 10/03/2023 11/02/2023 Active Start: 01-25-2023 End: 02-08-2023 take 1 tablet by mouth once daily potassium chloride ER (KLOR-CON) 20 mEq tablet Take 1 tablet by mouth once daily for 14 days. 7 tablet 1 01/25/2023 02/08/2023 Active Comment on above: Take 1 tablet by yael once daily for 14 days. rimegepant 75 mg disintegrating oral tablet (20 sources) Start: 03-14-2024 Rimegepant Sulfate (Nurtec) 75 MG tablet dispersible Indications: Episodic migraine (CMS/HCC) Take one 75 mg tablet by mouth every other day for migraine prevention. Allow tablet to dissolve entirely. 16 tablet 11 03/14/2024 Active Start: 05-04-2022 End: 01-30-2025 NURTEC ODT 75 mg disintegrat ing tablet DISSOLVE 1 TABLET ON THE TONGUE ONCE A DAY AT ONSET OF MIGRAINE 06/15/2022 Active Comment on above: DISSOLVE 1 TABLET ON THE TONGUE ONCE A DAY AT ONSET OF MIGRAINE sucralfate 1000 mg oral tablet (20 sources) Aluminum Complex Start: 10-01-2021 take 1 tablet by mouth every six hours Sucralfate 1 GM 1 tablet on an empty stomach Orally QID for 30 day(s) Sep, Active Start: 10-01-2021 take 1 tablet by yael four times daily Sucralfate 1 GM 1 tablet on an empty stomach Orally QID for 30 day(s) Sep, Active Start: 09-24-2021 End: 12-18-2023 take 1 tablet by mouth four times daily sucralfate (CARAFATE) 1 gram tablet take 1 tablet by mouth four times a day 360 tablet 1 12/18/2023 Active Start: 09-23-2021 take 10 mL by mouth four times daily Sucralfate 1 GM/10ML 10 ml on an empty stomach Orally four times a day for 30 day(s) Sep, Active Comment on above: TAKE 1 TABLET ON AN EMPTY STOMACH 4 TIMES A DAY FOR 30 DAYS Take 1 tablet by yael four times daily. TAKE 1 TABLET BY YAEL 4 TIMES A DAY take 1 tablet by yael four times a day zolpidem tartrate 5 mg oral tablet (1 source) gamma-Aminobutyric Acid-ergic Agonist Start: 06-06-2017 take 5 mg by mouth at bedtime Zolpidem Active 5 MG PO Bedtime June 06, 2017 12:00am Completed/Discontinued Medications Medication Drug Class(es) Dates Sig (Normalized) Sig (Original) ALPRAZolam 0.5 mg oral tablet (2 sources) Benzodiazepine Start: 02-19-2024 End: 02-19-2024 ALPRAZolam 0.5 mg tab(s) (XANAX) Start: 02-19-2024 End: 02-19-2024 take 0.5 mg by mouth once 0.5 mg, ORAL, ONCE, 1 dose, On Mon02/19/24 at 1200 bacitracin 0.5 unt/mg / polymyxin b 10 unt/mg topical ointment (2 sources) Polymyxin-class Antibacterial Start: 02-19-2024 End: 02-19-2024 bacitracin 500 units - polymyxin B 10,000 units topical ointment (POLYSPORIN) Start: 02-19-2024 End: 02-19-2024 1 Packet, TOPICAL, ONCE, 1 d ose, On Mon02/19/24 at 0900, RN to apply to all 4 pin sites post frame removal. FOR EXTERNAL USE ONLY benzonatate 100 mg oral capsule (20 sources) Non-narcotic Antitussive Start: 12-18-2023 End: 06-05-2024 take 1 capsule by mouth three times daily as needed for cough benzonatate (TESSALON PERLE) 100 mg capsule take 1 capsule by mouth three times a day as needed for cough 40 capsule 04/29/2024 06/05/2024 Discontinued Start: 09-04-2023 End: 12-15-2023 take 1 capsule by mouth three times daily as needed for cough benzonatate (TESSALON PERLE) 100 mg capsule take 1 capsule by mouth three times a day as needed for cough 40 capsule 11/15/2023 12/15/2023 Discontinued Start: 03-27-2023 End: 09-03-2023 take 1 capsule by mouth three times daily as needed for cough benzonatate (TESSALON PERLE) 100 mg capsule take 1 capsule by mouth three times a day as needed for cough 40 capsule 03/27/2023 09/03/2023 Discontinued Start: 11-13-2022 End: 02-15-2023 take 1 capsule by mouth three times daily as needed for cough benzonatate (TESSALON PERLE) 100 mg capsule take 1 capsule by mouth three times a day as needed for cough 11/13/2022 02/15/2023 Discontinued Start: 11-01-2022 take 1 mg by mouth t hree times daily Tessalon Perles mg, Oral, TID, Refills(s) 0 Start Date: 11/01/22 Status: Ordered Start: 08-03-2022 End: 11-01-2022 take 1 capsule by mouth every eight hours as needed benzonatate (TESSALON PERLE) 100 mg capsule Take 1 capsule by mouth three times daily as needed for cough. 100 capsule 2 08/03/2022 11/01/2022 Start: 12-24-2018 End: 08-03-2022 benzonatate (TESSALON PERLE) 100 mg capsule 2 12/24/2018 08/03/2022 Discontinued Start: 12-24-2018 benzonatate (T ESSALON PERLE) 100 mg capsule Comment on above: Take 1 capsule by mo uth three times daily as needed for cough. take 1 capsule by mo uth three times a day as needed for cough cyanocobalamin, vitamin B-12, (VITAMIN B-12 ORAL) (20 sources) End: 06-29-2022 cyanocobalamin, vitamin B-12, (VITAMIN B-12 ORAL) Take by mouth. 06/29/2022 Discontinued (Discontinued by Patient) cyanocobalamin, vitamin B-12, (VITAMIN B-12 ORAL) Take by mouth. 0 Active Comment on above: Take by mouth. estrogens, conjugated (alf) 0.625 mg/ml vaginal cream (20 sources) Estrogen Start: 09-21-2021 End: 08-17-2022 conjugated estrogens (PREMARIN) vaginal cream See Instructions, 30 gm, Refill(s) 5, 1 gm vaginally + apply pea-sized amount around urethra. daily x 3 weeks, then 3x per week thereafter., [facility]/pharmacy #[id number], 155, cm, 09/21/21 10:48:00 EDT, Height/Length Dosing, 37, kg, 09/21/21 10:48:00 EDT, Weigh... 09/21/2021 08/17/2022 Discontinued Start: 09-21-2021 conjugated est rogens 0.625 mg/g vaginal cream with applicator See Instructions, 30 gm, Refill(s) 5, 1 gm vaginally + apply pea-sized amount around urethra. daily x 3 weeks, then 3x per week thereafter., [facility]/pharmacy #[id number], 155, cm, 09/21/21 10:48:00 EDT, Height/Length Dosing, 37, kg, 09/21/21 10:48:00 EDT, Weigh... Start Date: 09/21/21 Status: Ordered Premarin Active Comment on above: See Instructions, 30 gm, Refill(s) 5, 1 gm vaginally + apply pea-sized amount around urethra. daily x 3 weeks, then 3x per week thereafter., [facility]/pharmacy #[id number], 155, cm, 09/21/21 10:48:00 EDT, Height/Length Dosing, 37, kg, 09/21/21 10:48:00 EDT, Weigh... ibuprofen 600 mg oral tablet (2 sources) Nonsteroidal Anti-inflammatory Drug Start: 11-16-2022 take 1 tablet by mouth every six hours as needed for pain ibuprofen (MOTRIN) 600 mg tablet Indications: Pain, postoperative, acute , Malignant neoplasm of lower lobe of right lung (HCC) Take 1 tablet by mouth every 6 hours as needed for pain. 60 tablet 0 11/16/2022 Active Comment on above: Take 1 tablet by yael th every 6 hours as needed for pain. Lidocaine (2 sources) Antiarrhythmic, Amide Local Anesthetic Start: 02-19-2024 End: 02-19-2024 lidocaine 20 mg/mL (2 %) 200-400 mg injection (XYLOCAINE) Start: 02-19-2024 End: 02-19-2024 200-400 mg, INTRADERMAL, ONC E, 1 dose, On 02/19/24 at 0900 methocarbamol 500 mg oral tablet (10 sources) Muscle Relaxant Start: 11-16-2022 End: 01-25-2023 take 1 tablet by mouth three times daily methocarbamol (ROBAXIN) 500 mg tablet Take 1 tablet by mouth three times daily. 24 tablet 11/16/2022 01/25/2023 Discontinued Comment on above: Take 1 tablet by yael th three times daily. 5 ml midazolam 1 mg/ml injection (2 sources) Benzodiazepine Start: 02-19-2024 End: 02-19-2024 midazolam (PF) 0.5-1 mg injection (VERSED) Start: 02-19-2024 End: 02-19-2024 0.5-1 mg, INTRAVENOUS, ONCE, 1 dose, On 02/19/24 at 0900 mupirocin 0.02 mg/mg topical ointment (3 sources) RNA Synthetase Inhibitor Antibacterial Start: 11-11-2022 mupirocin (BACTROBAN) 2 % ointment Apply a small amount in each nostril using a cotton swab twice the day before surgery and once the morning of surgery. 22 g 0 11/11/2022 Active Comment on above: Apply a small amount in each nostril using a cotton swab twice the day before surgery and once the morning of surgery. 24 hr nicotine 0.292 mg/hr transdermal system (9 sources) Cholinergic Nicotinic Agonist Start: 09-29-2021 End: 04-07-2022 nicotine (NICODERM) 7 mg/24 hr Apply 1 Patch as directed every 24 hours. 30 Patch 0 09/29/2021 04/07/2022 Discontinued Comment on above: Apply 1 Patch as dir ected every 24 hours. oxyCODONE hydrochloride 5 mg oral tablet (1 source) Opioid Agonist Start: 11-16-2022 End: 11-23-2022 take 1 tablet by mouth every six hours as needed oxyCODONE IR (ROXICODONE) 5 mg immediate release tablet Indications: Pain, postoperative, acute , Malignant neoplasm of lower lobe of right lung (HCC) Take 1 to 2 tablets by mouth every 6 hours as needed for up to 7 days. 56 tablet 0 11/16/2022 11/23/2022 Comment on above: Take 1 to 2 tablets by mouth every 6 hours as needed for up to 7 days. pembrolizumab 400 mg in NaCl 0.9% 74 mL (KEYTRUDA) (8 sources) Start: 05-02-2024 End: 05-02-2024 400 mg, INTRAVENOUS, Administer over 30 Minutes, ONCE, 1 dose, On Mon05/02/24 at 1330, EXP: 05/06/2024 1330 RT Administer with 0.2 micron filter. Start: 03-21-2024 End: 03-21-2024 400 mg, INTRAVENOUS, Adminis ter over 30 Minutes, ONCE, 1 dose, On Jonelle 03/21/24 at 1400, EXP: 03/25/2024 1345 RT Administer with 0.2 micron filter. Start: 02-07-2024 End: 02-07-2024 400 mg, INTRAVENOUS, Adminis ter over 30 Minutes, ONCE, 1 dose, On Mon02/07/24 at 1330, EXP: 02/11/2024 1330 RT Administer with 0.2 micron filter. Start: 12-27-2023 End: 12-27-2023 400 mg, INTRAVENOUS, Adminis ter over 30 Minutes, ONCE, 1 dose, On Mon12/27/23 at 1400, EXP: 12/31/2023 1405 RT Administer with 0.2 micron filter. Start: 11-15-2023 End: 11-15-2023 400 mg, INTRAVENOUS, Adminis ter over 30 Minutes, ONCE, 1 dose, On Mon11/15/23 at 1430, EXP: 11/19/2023 1430 RT Administer with 0.2 micron filter. Start: 10-03-2023 End: 10-03-2023 pembrolizumab 400 mg in NaCl 0.9% 74 mL (KEYTRUDA) Start: 08-22-2023 End: 08-22-2023 pembrolizumab 400 mg in NaCl 0.9% 74 mL (KEYTRUDA) Start: 07-11-2023 End: 07-11-2023 pembrolizumab 400 mg in NaCl 0.9% 74 mL (KEYTRUDA) prochlorperazine 10 mg oral tablet (20 sources) Phenothiazine Start: 12-18-2023 End: 07-05-2024 take 1 tablet by mouth every six hours as needed prochlorperazine (COMPAZINE) 10 mg tablet Indications: Malignant neoplasm of hilus of lung, unspecified laterality (HCC) , Anemia, unspecified type Take 1 tablet by mouth every 6 hours as needed. 100 tablet 03/25/2024 06/05/2024 Discontinued Start: 07-31-2023 End: 12-15-2023 take 1 tablet by mouth every six hours as needed prochlorperazine (COMPAZINE) 10 mg tablet Indications: Malignant neoplasm of hilus of lung, unspecified laterality (HCC) , Anemia, unspecified type Take 1 tablet by mouth every 6 hours as needed. 40 tablet 11/15/2023 12/15/2023 Discontinued Start: 05-12-2023 End: 07-20-2023 take 1 tablet by mouth every six hours as needed prochlorperazine (COMPAZINE) 10 mg tablet Indications: Malignant neoplasm of hilus of lung, unspecified laterality (HCC) , Anemia, unspecified type Take 1 tablet by mouth every 6 hours as needed. 40 tablet 05/12/2023 06/20/2023 Discontinued Start: 05-13-2021 take 1 tablet by yael th once daily Compazine 10 MG 1 TABLET Orally DAILY for 30 days May, Active Start: 03-29-2018 End: 02-26-2023 take 1 tablet by mouth every six hours as needed prochlorperazine (COMPAZINE) 10 mg tablet Indications: Malignant neoplasm of hilus of lung, unspecified laterality (HCC) , Anemia, unspecified type TAKE 1 TABLET BY MOUTH EVERY 6 HOURS NEEDED. 30 tablet 2 12/28/2020 03/09/2021 Discontinued Start: 06-06-2017 take 1 tablet by yael th every four hours Prochlorperazine Maleate (Compazine) 10 mg Tablet Active 10 MG PO Q4H June 06, 2017 12:00am Prochlorperazine Active Comment on above: TAKE 1 TABLET BY YAEL TH EVERY 6 HOURS NEEDED. TAKE 1 TABLET BY YAEL TH EVERY 6 HOURS NEEDED Problems Active Problems Problem Classification Problem Date Documented Date Episodic/Chronic Acute cerebrovascular disease (8 sources) Cerebrovascular accident; Translations: [Other cerebral infarction due to occlusion or stenosis of small artery] Onset: 11-10-2021 Chronic Asthma (20 sources) Asthma; Translations: [Unspecified asthma, uncomplicated] Onset: 01-12-2017 01-12-2017 Chronic Calculus of urinary tract (8 sources) Kidney stone; Translations: [Calculus of kidney] Onset: 05-04-2022 Episodic Cancer of brain and nervous system (7 sources) Malignant neoplasm of frontal lobe; Translations: [Malignant neoplasm of frontal lobe] Onset: 04-30-2024 02-02-2024 Chronic Cancer of bronchus; lung (20 sources) Malignant tumor of lung; Translations: [Malignant neoplasm of unspecified main bronchus] Onset: 03-10-2017 Resolved: 07-14-2022 Chronic Chronic obstructive pulmonary disease and bronchiectasis (20 sources) Centriacinar emphysema; Translations: [Centrilobular emphysema] Onset: 11-15-2022 11-16-2022 Chronic Coagulation and hemorrhagic disorders (20 sources) Platelet count below reference range; Translations: [Thrombocytopenia, unspecified] Onset: 05-08-2017 05-08-2017 Chronic Complications of surgical procedures or medical care (20 sources) Anemia due to antineoplastic chemotherapy; 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] Onset: 05-23-2017 05-23-2017 Chronic Deficiency and other anemia (20 sources) Anemia; Translations: [Anemia, unspecified] Onset: 01-01-2018 Episodic Esophageal disorders (11 sources) Gastroesophageal reflux disease; Translations: [Gastro-esophageal reflux disease without esophagitis] Onset: 04-13-2021 Resolved: 05-17-2021 Chronic Gastritis and duodenitis (11 sources) Chronic superficial gastritis; Translations: [Chronic superficial gastritis without bleeding] Onset: 04-13-2021 Resolved: 09-23-2021 Chronic Gastroduodenal ulcer (except hemorrhage) (20 sources) Peptic ulcer; Translations: [Peptic ulcer, site unspecified, unspecified as acute or chronic, without hemorrhage or perforation] Onset: 11-06-2017 11-06-2017 Chronic Genitourinary symptoms and ill-defined conditions (13 sources) Dysuria; Translations: [Dysuria] Onset: 03-02-2022 Episodic Headache; including migraine (3 sources) Migraine, unspecified, not intractable, without status migrainosus; Translations: [Migraine, unspecified, without mention of intractable migraine without mention of status migrainosus] 01-31-2024 Chronic Headache; including migraine (1 source) Headache; Translations: [Nonintractable headache, unspecified chronicity pattern, unspecified headache type] 01-12-2024 Episodic Mycoses (2 sources) Candidiasis of mouth; Translations: [Candidal stomatitis] Episodic Neoplasms of unspecified nature or uncertain behavior (2 sources) Neoplasm of lung ; Translations: [Neoplasm of unspecified behavior of respiratory system] 01-02-2023 Episodic Osteoarthritis (20 sources) Arthritis; Translations: [Unspecified osteoarthritis, unspecified site] Onset: 01-12-2017 01-12-2017 Chronic Other circulatory disease (1 source) Vascular insufficiency; Translations: [Other disorder of circulatory system] 01-02-2023 Episodic Other connective tissue disease (5 sources) H/O: musculoskeletal disease 02-07-2017 Episodic Other disorders of stomach and duodenum (5 sources) Nonulcer dyspepsia 09-05-2019 Episodic Other injuries and conditions due to external causes (1 source) Injury of head; Translations: [Unspecified injury of head, initial encounter] 06-06-2017 Episodic Other lower respiratory disease (5 sources) Lung mass 02-07-2017 Episodic Other lower respiratory disease (6 sources) Nodule of lung; Translations: [Solitary pulmonary nodule] Episodic Other lower respiratory disease (2 sources) Dyspnea; Translations: [Shortness of breath] 11-11-2022 Episodic Other lower respiratory disease (1 source) Multiple nodules of lung; Translations: [Other nonspecific abnormal finding of lung field] 02-25-2021 Episodic Other non-traumatic joint disorders (4 sources) Pain in right shoulder; Translations: [PAIN IN RIGHT SHOULDER] Onset: 05-13-2022 Episodic Other nutritional; endocrine; and metabolic disorders (1 source) Abnormal weight loss; Translations: [Abnormal weight loss] Episodic Other screening for suspected conditions (not mental disorders or infectious disease) (2 sources) Blood chemistry abnormal; Translations: [Abnormal finding of blood chemistry, unspecified] 11-07-2023 Episodic Other skin disorders (1 source) Disorder of pigmentation, unspecified Episodic Other upper respiratory disease (1 source) Bronchiolar disease; Translations: [Other diseases of bronchus, not elsewhere classified] Episodic Residual codes; unclassified (2 sources) Tobacco use and exposure - finding; Translations: [Tobacco use] 03-14-2024 Episodic Secondary malignancies (6 sources) Secondary malignant neoplasm of brain; Translations: [Secondary malignant neoplasm of brain] 02-06-2024 Chronic Secondary malignancies (1 source) Secondary malignant neoplasm of brain and spinal cord; Translations: [Secondary malignant neoplasm of brain] 02-15-2024 Chronic Secondary malignancies (1 source) Secondary malignant neoplasm of bone; 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 Syncope (2 sources) Syncope and collapse; Translations: [Syncope and collapse] 12-27-2023 Episodic Thyroid disorders (1 source) Thyroid dysfunction; Translations: [Disorder of thyroid, unspecified] 11-07-2023 Episodic Unclassified (1 source) Consult Onset: 09-21-2022 Unclassified (1 source) Episodic migraine (CMS/HCC) 01-31-2024 Past or Other Problems Problem Classification Problem Date Documented Date Episodic/Chronic Administrative/social admission (20 sources) Discharge status; Translations: [Encounter for administrative examinations, unspecified] Onset: 11-15-2022 11-16-2022 Episodic Gastritis and duodenitis (1 source) Acute gastritis without bleeding Onset: 05-17-2021 Resolved: 05-17-2021 Episodic Immunizations and screening for infectious disease (20 sources) Contact with or exposure to other viral diseases; Translations: [Close exposure to COVID-19 virus] Onset: 11-23-2022 Episodic Malaise and fatigue (15 sources) Malaise and fatigue; Translations: [Other malaise] Onset: 06-14-2023 01-03-2023 Episodic Nausea and vomiting (20 sources) Nausea; Translations: [Nausea] Onset: 02-12-2018 Resolved: 09-23-2021 02-12-2018 Episodic Nutritional deficiencies (1 source) Cachexia Onset: 09-23-2021 Resolved: 09-23-2021 Episodic Other lower respiratory disease (20 sources) Cough; Translations: [Cough in adult] Onset: 11-06-2017 11-06-2017 Episodic Other nervous system disorders (20 sources) Acute postoperative pain; Translations: [Other acute postprocedural pain] Onset: 11-15-2022 11-16-2022 Episodic Other nutritional; endocrine; and metabolic disorders (1 source) Abnormal weight loss Onset: 09-23-2021 Resolved: 09-23-2021 Episodic Pneumonia (except that caused by tuberculosis or sexually transmitted disease) (20 sources) Pneumonia; Translations: [Pneumonia, unspecified organism] Onset: 01-12-2017 Resolved: 01-12-2017 01-12-2017 Episodic Spondylosis; intervertebral disc disorders; other back problems (20 sources) Backache; Translations: [Dorsalgia, unspecified] Onset: 01-12-2017 01-12-2017 Episodic Unclassified (5 sources) Radiation therapy care 03-29-2018 Urinary tract infections (20 sources) Urinary tract infectious disease; Translations: [Urinary tract infection, site not specified] Onset: 12-15-2017 12-15-2017 Episodic Results Test Name Value Interpretation Reference Range Facility CBC W Auto Differential pane l (Bld)on 05-02-2024 Basophils (Bld) [#/Vol] 10*3/uL Normal <0.11 [facility] Comment on above: Order Comment: Speci men Type: BLOOD SPECIMENOrdering Facility: [facility] Address: [id number] [place] [address] Performed By: #### 5 7021-8 ####[facility] LABCLIA [id number] [place] [address] Basophils/100 WBC (Bld) 0.4 % Normal [facility] Comment on above: Order Comment: Speci men Type: BLOOD SPECIMENOrdering Facility: [facility] Address: [address] [place] [address] Performed By: #### 5 7021-8 ####[facility] LABCLIA [id number] [place] [address] Differential cell count method Nom (Bld) Auto Normal [facility] Comment on above: Order Comment: Speci men Type: BLOOD SPECIMENOrdering Facility: [facility] Address: [address] [place] [address] Performed By: #### 5 7021-8 ####[facility] LABCLIA [id number] [place] [address] Eosinophils (Bld) [#/Vol] 0.13 10*3/uL Normal <0.46 [facility] Comment on above: Order Comment: Speci men Type: BLOOD SPECIMENOrdering Facility: [facility] Address: [address] [place] [address] Performed By: #### 5 7021-8 ####[facility] LABCLIA [id number] [place] [address] Eosinophils/100 WBC (Bld) 2.3 % Normal [facility] Comment on above: Order Comment: Speci men Type: BLOOD SPECIMENOrdering Facility: [facility] Address: [address] [place] [address] Performed By: #### 5 7021-8 ####[facility] LABCLIA [id number] [place] [address] Erythrocyte distribution width (RBC) [Ratio] 14.0 % Normal 11.5-15.0 [facility] Comment on above: Order Comment: Speci men Type: BLOOD SPECIMENOrdering Facility: [facility] Address: [address] [place] [address] Performed By: #### 5 7021-8 ####[facility] LABCLIA [id number] [place] [address] Hematocrit (Bld) [Volume fraction] 32.5 % Low 36.0-46.0 [facility] Comment on above: Order Comment: Speci men Type: BLOOD SPECIMENOrdering Facility: [facility] Address: [address] [place] [address] Performed By: #### 5 7021-8 ####[facility] LABCLIA [id number] [place] [address] Hemoglobin (Bld) [Mass/Vol] 10.4 g/dL Low 11.5-15.5 [facility] Comment on above: Order Comment: Speci men Type: BLOOD SPECIMENOrdering Facility: [facility] Address: [address] [place] [address] Performed By: #### 5 7021-8 ####[facility] LABCLIA [id number] [place] [address] Immature granulocytes (Bld) [#/Vol] 0.05 10*3/uL Normal <0.10 [facility] Comment on above: Order Comment: Speci men Type: BLOOD SPECIMENOrdering Facility: [facility] Address: [address] [place] [address] Performed By: #### 5 7021-8 ####[facility] LABIA [id number] [place] [address] Immature granulocytes/100 WBC (Bld) 0.9 % Normal [facility] Comment on above: Order Comment: Speci men Type: BLOOD SPECIMENOrdering Facility: [facility] Address: [address] [place] [address] Performed By: #### 5 7021-8 ####[facility] LABCLIA [id number] [place] [address] Lymphocytes (Bld) [#/Vol] 1.68 10*3/uL Normal 1.00-4.00 [facility] Comment on above: Order Comment: Speci men Type: BLOOD SPECIMENOrdering Facility: [facility] Address: [address] [place] [address] Performed By: #### 5 7021-8 ####[facility] LABIA [id number] [place] [address] Lymphocytes/100 WBC (Bld) 29.9 % Normal [facility] Comment on above: Order Comment: Speci men Type: BLOOD SPECIMENOrdering Facility: [facility] Address: [address] [place] [address] Performed By: #### 5 7021-8 ####[facility] LABCLIA [id number] [place] [address] MCH (RBC) [Entitic mass] 32.9 pg Normal 26.0-34.0 [facility] Comment on above: Order Comment: Speci men Type: BLOOD SPECIMENOrdering Facility: [facility] Address: [address] [place] [address] Performed By: #### 5 7021-8 ####[facility] LABCLIA [id number] [place] [address] MCHC (RBC) [Mass/Vol] 32.0 g/dL Normal 30.5-36.0 [facility] Comment on above: Order Comment: Speci men Type: BLOOD SPECIMENOrdering Facility: [facility] Address: [address] [place] [address] Performed By: #### 5 7021-8 ####[facility] LABCLIA [id number] [place] [address] MCV (RBC) [Entitic vol] 102.8 fL High 80.0-100.0 [facility] Comment on above: Order Comment: Speci men Type: BLOOD SPECIMENOrdering Facility: [facility] Address: [address] [place] [address] Performed By: #### 5 7021-8 ####[facility] LABCLIA [id number] [place] [address] Monocytes (Bld) [#/Vol] 0.54 10*3/uL Normal <0.87 [facility] Comment on above: Order Comment: Speci men Type: BLOOD SPECIMENOrdering Facility: [facility] Address: [address] [place] [address] Performed By: #### 5 7021-8 ####[facility] LABCLIA [id number] [place] [address] Monocytes/100 WBC (Bld) 9.6 % Normal [facility] Comment on above: Order Comment: Speci men Type: BLOOD SPECIMENOrdering Facility: [facility] Address: [address] [place] [address] Performed By: #### 5 7021-8 ####[facility] LABCLIA [id number] [place] [address] Neutrophils (Bld) [#/Vol] 3.20 10*3/uL Normal 1.45-7.50 [facility] Comment on above: Order Comment: Speci men Type: BLOOD SPECIMENOrdering Facility: [facility] Address: [address] [place] [address] Performed By: #### 5 7021-8 ####[facility] LABCLIA [id number] [place] [address] Neutrophils/100 WBC (Bld) 56.9 % Normal [facility] Comment on above: Order Comment: Speci men Type: BLOOD SPECIMENOrdering Facility: [facility] Address: [address] [place] [address] Performed By: #### 5 7021-8 ####[facility] LABCLIA [id number] [place] [address] Nucleated RBC (Bld) [#/Vol] 10*3/uL Normal <0.01 [facility] Comment on above: Order Comment: Speci men Type: BLOOD SPECIMENOrdering Facility: [facility] Address: [address] [place] [address] Performed By: #### 5 7021-8 ####[facility] LABCLIA [id number] [place] [address] Nucleated RBC/100 WBC (Bld) [Ratio] 0.0 /100 WBC Normal [facility] Comment on above: Order Comment: Speci men Type: BLOOD SPECIMENOrdering Facility: [facility] Address: [address] [place] [address] Performed By: #### 5 7021-8 ####[facility] LABCLIA [id number] [place] [address] Platelet mean volume (Bld) [Entitic vol] 9.0 fL Normal 9.0-12.7 [facility] Comment on above: Order Comment: Speci men Type: BLOOD SPECIMENOrdering Facility: [facility] Address: [address] [place] [address] Performed By: #### 5 7021-8 ####[facility] LABCLIA [id number] [place] [address] Platelets (Bld) [#/Vol] 196 10*3/uL Normal 150-400 [facility] Comment on above: Order Comment: Speci men Type: BLOOD SPECIMENOrdering Facility: [facility] Address: [address] [place] [address] Performed By: #### 5 7021-8 ####[facility] LABIA [id number] [place] [address] RBC (Bld) [#/Vol] 3.16 10*6/uL Low 3.90-5.20 [facility] Comment on above: Order Comment: Speci men Type: BLOOD SPECIMENOrdering Facility: [facility] Address: [address] [place] [address] Performed By: #### 5 7021-8 ####[facility] [id number] [place] [address] WBC (Bld) [#/Vol] 5.62 10*3/uL Normal 3.70-11.00 [facility] Comment on above: Order Comment: Speci men Type: BLOOD SPECIMENOrdering Facility: [facility] Address: [address] [place] [address] Performed By: #### 5 7021-8 ####[facility] LABIA [id number] [place] [address] CNOVSPon 05-02-2024 CNOVSP Normal [facility] CNPNon 05-02-2024 CNPN Normal [facility] Comprehensive metabolic 2000 panelon 05-02-2024 Albumin [Mass/Vol] 3.6 g/dL Low 3.9-4.9 [facility] Comment on above: Order Comment: Speci men Type: BLOOD SPECIMENOrdering Facility: [facility] Address: [address] [place] [address] Performed By: #### 2 4323-8 ####[facility] LABIA [id number] [place] [address] ALP [Catalytic activity/Vol] 103 U/L Normal 34-123 [facility] Comment on above: Order Comment: Speci men Type: BLOOD SPECIMENOrdering Facility: [facility] Address: [address] [place] [address] Performed By: #### 2 4323-8 ####[facility] LABCLIA [id number] [place] [address] ALT [Catalytic activity/Vol] U/L Low 7-38 [facility] Comment on above: Order Comment: Speci men Type: BLOOD SPECIMENOrdering Facility: [facility] Address: [address] [place] [address] Performed By: #### 2 4323-8 ####[facility] LABCLIA [id number] [place] [address] Anion gap [Moles/Vol] 5 mmol/L Low 8-15 [facility] Comment on above: Order Comment: Speci men Type: BLOOD SPECIMENOrdering Facility: [facility] Address: [address] [place] [address] Performed By: #### 2 4323-8 ####[facility] LABCLIA [id number] [place] [address] AST [Catalytic activity/Vol] 13 U/L Normal 13-35 [facility] Comment on above: Order Comment: Speci men Type: BLOOD SPECIMENOrdering Facility: [facility] Address: [address] [place] [address] Performed By: #### 2 4323-8 ####[facility] LABCLIA [id number] [place] [address] Bilirubin [Mass/Vol] 0.2 mg/dL Normal 0.2-1.3 [facility] Comment on above: Order Comment: Speci men Type: BLOOD SPECIMENOrdering Facility: [facility] Address: [address] [place] [address] Performed By: #### 2 4323-8 ####[facility] LABCLIA [id number] [place] [address] Calcium [Mass/Vol] 9.2 mg/dL Normal 8.5-10.2 [facility] Comment on above: Order Comment: Speci men Type: BLOOD SPECIMENOrdering Facility: [facility] Address: [facility] [place] [address] Performed By: #### 2 4323-8 ####[facility] LABCLIA [id number] [place] [address] Chloride [Moles/Vol] 104 mmol/L Normal 98-107 [facility] Comment on above: Order Comment: Speci men Type: BLOOD SPECIMENOrdering Facility: [facility] Address: [address] [place] [address] Performed By: #### 2 4323-8 ####[facility] LABCLIA [id number] [place] [address] CO2 [Moles/Vol] 27 mmol/L Normal 22-30 [facility] Comment on above: Order Comment: Speci men Type: BLOOD SPECIMENOrdering Facility: [facility] Address: [address] [place] [address] Performed By: #### 2 4323-8 ####[facility] LABCLIA [id number] [place] [address] Creatinine [Mass/Vol] 0.70 mg/dL Normal 0.58-0.96 [facility] Comment on above: Order Comment: Speci men Type: BLOOD SPECIMENOrdering Facility: [facility] Address: [address] [place] [address] Performed By: #### 2 4323-8 ####[facility] LABCLIA [id number] [place] [address] Creatinine and Glomerular filtration rate.predicted panel (S/P/Bld) 99 mL/min/1.73m??? Normal >=60 [facility] Comment on above: Order Comment: Speci men Type: BLOOD SPECIMENOrdering Facility: [facility] Address: [address] [place], [place] [address] Result Comment: Audrey mated Glomerular Filtration Rate (eGFR) is calculated using the 2020 CKD-EPI creatinine equation. This equation utilizes serum creatinine, sex, and age as parameters. The creatinine assay has traceable calibration to isotope dilution-mass spectrometry. Refer to KDIGO guidelines for clinical interpretation. In patients with unstable renal function, e.g. those with acute kidney injury, the eGFR may not accurately reflect actual GFR. Performed By: #### 2 4323-8 ####[facility] LABCLIA [id number] [place] [address] Glucose [Mass/Vol] 136 mg/dL High 74-99 [facility] Comment on above: Order Comment: Speci men Type: BLOOD SPECIMENOrdering Facility: [facility] Address: [address] [place] [address] Result Comment: The [place] Diabetes Association (ADA) provides guidance for cutoff values for fasting glucose and random glucose. The ADA defines fasting as no caloric intake for at least 8 hours. Fasting plasma glucose results between 100 to 125 mg/dL indicate increased risk for diabetes (prediabetes).Fasting plasma glucose results greater than or equal to 126 mg/dL meet the criteria for diagnosis of diabetes. In the absence of unequivocal hyperglycemia, results should be confirmed by repeat testing. In a patient with classic symptoms of hyperglycemia or hyperglycemic crisis, random plasma glucose results greater than or equal to 200 mg/dL meet the criteria for diagnosis of diabetes.Reference: Standards of Medical Care in Diabetes 2016, [place] Diabetes Association. Diabetes Care. 2016.39(Suppl 1). Performed By: #### 2 4323-8 ####[facility] LABCLIA [id number] [place] [address] Potassium [Moles/Vol] 4.5 mmol/L Normal 3.7-5.1 [facility] Comment on above: Order Comment: Speci men Type: BLOOD SPECIMENOrdering Facility: [facility] Address: [address] [place] [address] Performed By: #### 2 4323-8 ####[facility] LABCLIA [id number] [place] [address] Protein [Mass/Vol] 6.1 g/dL Low 6.3-8.0 [facility] Comment on above: Order Comment: Speci men Type: BLOOD SPECIMENOrdering Facility: [facility] Address: [address] [place] [address] Performed By: #### 2 4323-8 ####[facility] LABCLIA [id number] [place] [address] Sodium [Moles/Vol] 136 mmol/L Normal 136-144 [facility] Comment on above: Order Comment: Speci men Type: BLOOD SPECIMENOrdering Facility: [facility] Address: [address] [place] [address] Performed By: #### 2 4323-8 ####[facility] LABCLIA [id number] [place] [address] Urea nitrogen [Mass/Vol] 18 mg/dL Normal 7-21 [facility] Comment on above: Order Comment: Speci men Type: BLOOD SPECIMENOrdering Facility: [facility] Address: [address] [place] [address] Performed By: #### 2 4323-8 ####[facility] LABCLIA [id number] [place] [address] Meghana Gopalon 05-02-19 25 Cortisol [Mass/Vol] 11.1 ug/dL Normal 4.8-19.5 [facility] Comment on above: Order Comment: Speci men Type: BLOOD SPECIMENOrdering Facility: [facility] Address: [address] [place] [address] Result Comment: Prov ided reference range is from 6-10 AM sample collection time.Cortisol Reference Range: 6-10 AM = 4.8-19.5 ug/dL, 4-8 PM = 2.5-11.9 ug/dL Performed By: #### 2 143-6, 3016-3 ####[facility] LABCLIA [id number] [facility] [id number] [address] [place] HbA1c (Bld)on 05-02-2024 Average glucose Estimated from glycated hemoglobin (Bld) [Mass/Vol] 82 mg/dL Normal [facility] Comment on above: Order Comment: Sheryl epperson Type: BLOOD SPECIMENOrdering Facility: [facility] Address: [address] [place] [address] Result Comment: eAG: (Estimated average glucose) is a calculated value from HgbA1c and is warehouse representative of the average blood glucose level in the last 2-3 month period. Performed By: #### 5 5454-3 ####[facility] LABCLIA [id number] [place] [address] [place] HbA1c (Bld) [Mass fraction] 4.5 % Normal 4.3-5.6 [facility] Comment on above: Order Comment: Sheryl epperson Type: BLOOD SPECIMENOrdering Facility: [facility] Address: [address] [place] [address] Result Comment: [place] Diabetes Association guidelines indicate that patients with HgbA1c in the range 5.7-6.4% are at increased risk for development of diabetes, and intervention by lifestyle modification may be beneficial. HgbA1c greater or equal to 6.5% is considered diagnostic of diabetes. Performed By: #### 5 5454-3 ####[facility] LABIA [id number] [place] [address] [place] TSH SerPl-aCncon 05-02-2024 TSH Qn 3.610 m[IU]/L Normal 0.270-4.200 [facility] Comment on above: Order Comment: Sheryl epperson Type: BLOOD SPECIMENOrdering Facility: [facility] Address: [address] [place] [address] Performed By: #### 2 143-6, 3016-3 ####[facility] LABIA [id number] [place] [address] [place] GLUCOSE, BLOOD (POC)on 04-30 Glucose [Mass/Vol] 107 mg/dL Abnormal 74 - 99 mg/dL [facility] Comment on above: Location:[facility], [address] [place] [address] , [place], [place], [address] The Accu-Chek Inform II glucose meter has not been approved for testing on patients receiving intensive medical intervention or therapy and results from this point of care glucose test should not be used for patient management decisions in these cases. Inaccurate results may also occur from other interfering factors, such as N-acetylcysteine (blood concentrations of greater than 5mg/dL), galactose, extremes of hematocrit (<10 or >65), or high doses of ascorbic acid (vitamin C) greater than 3mg/dL. Consider alternate testing mechanisms (e.g. core lab, blood gas instrument) in the above situations. Interpretation and review of laboratory results Abnormal [facility] NM PET/CT SKULL-THIGH SUBQon 04-30-2024 NM PET/CT SKULL-THIGH SUBQ Normal [facility] CBC W Auto Differential pane l (Bld)on 03-21-2024 Basophils (Bld) [#/Vol] 0.00 10*3/uL Normal <0.11 [facility] Comment on above: Order Comment: Speci men Type: BLOOD SPECIMENOrdering Facility: [facility] Address: [address] [place] [address] Performed By: #### 5 7021-8 ####[facility] LABCLIA [id number] [address] LABCLIA [id number] [place] [address] [place] Basophils/100 WBC (Bld) 0.0 % Normal [facility] Comment on above: Order Comment: Speci men Type: BLOOD SPECIMENOrdering Facility: [facility] Address: [address] [place] [address] Performed By: #### 5 7021-8 ####[facility] LABCLIA [id number] [address] LABCLIA [id number] [place] [address] [place] Dacrocytes LM Ql (Bld) Few Normal [facility] Comment on above: Order Comment: Speci men Type: BLOOD SPECIMENOrdering Facility: [facility] Address: [address] [place] [address] Performed By: #### 5 7021-8 ####[facility] LABCLIA [id number] [place] [id number] LABCLIA [id number] [place] [address] [place] Differential cell count method Nom (Bld) Manual Normal [facility] Comment on above: Order Comment: Speci men Type: BLOOD SPECIMENOrdering Facility: [facility] Address: [address] [place] [address] Performed By: #### 5 7021-8 ####[facility] LABCLIA [id number] [address] LABCLIA [id number] [place] [address] [place] Eosinophils (Bld) [#/Vol] 0.00 10*3/uL Normal <0.46 [facility] Comment on above: Order Comment: Speci men Type: BLOOD SPECIMENOrdering Facility: [facility] Address: [address] [place] [address] Performed By: #### 5 7021-8 ####[facility] LABCLIA [id number] [address] LABCLIA [id number] [place] [address] [place] Eosinophils/100 WBC (Bld) 0.0 % Normal [facility] Comment on above: Order Comment: Speci men Type: BLOOD SPECIMENOrdering Facility: [facility] Address: [address] [place] [address] Performed By: #### 5 7021-8 ####[facility] LABCLIA [id number] [address] LABCLIA [id number] [place] [address] [place] Erythrocyte distribution width (RBC) [Ratio] 14.5 % Normal 11.5-15.0 [facility] Comment on above: Order Comment: Speci men Type: BLOOD SPECIMENOrdering Facility: [facility] Address: [address] [place] [address] Performed By: #### 5 7021-8 ####[facility] LABCLIA [id number] [address] LABCLIA [id number] [place] [address] [place] Hematocrit (Bld) [Volume fraction] 31.4 % Low 36.0-46.0 [facility] Comment on above: Order Comment: Speci men Type: BLOOD SPECIMENOrdering Facility: [facility] Address: [address] [place] [address] Performed By: #### 5 7021-8 ####[facility] LABCLIA [id number] [address] LABCLIA [id number] [place] [address] [place] Hemoglobin (Bld) [Mass/Vol] 9.9 g/dL Low 11.5-15.5 [facility] Comment on above: Order Comment: Speci men Type: BLOOD SPECIMENOrdering Facility: [facility] Address: [address] [place] [address] Performed By: #### 5 7021-8 ####[facility] LABCLIA [id number] [address] LABCLIA [id number] [place] [address] [place] Lymphocytes (Bld) [#/Vol] 2.24 10*3/uL Normal 1.00-4.00 [facility] Comment on above: Order Comment: Speci men Type: BLOOD SPECIMENOrdering Facility: [facility] Address: [address] [place] [address] Performed By: #### 5 7021-8 ####[facility] LABCLIA [id number] [address] LABCLIA [id number] [place] [address] [place] Lymphocytes/100 WBC (Bld) 29.3 % Normal [facility] Comment on above: Order Comment: Speci men Type: BLOOD SPECIMENOrdering Facility: [facility] Address: [address] [place] [address] Performed By: #### 5 7021-8 ####[facility] LABCLIA [id number] [address] LABCLIA [id number] [place] [address] [place] MCH (RBC) [Entitic mass] 35.6 pg High 26.0-34.0 [facility] Comment on above: Order Comment: Speci men Type: BLOOD SPECIMENOrdering Facility: [facility] Address: [address] [place] [address] Performed By: #### 5 7021-8 ####[facility] LABCLIA [id number] [address] LABCLIA [id number] [place] [address] [place] MCHC (RBC) [Mass/Vol] 31.5 g/dL Normal 30.5-36.0 [facility] Comment on above: Order Comment: Speci men Type: BLOOD SPECIMENOrdering Facility: [facility] Address: [address] [place] [address] Performed By: #### 5 7021-8 ####[facility] LABCLIA [id number] [address] LABCLIA [id number] [place] [address] [place] MCV (RBC) [Entitic vol] 112.9 fL High 80.0-100.0 [facility] Comment on above: Order Comment: Speci men Type: BLOOD SPECIMENOrdering Facility: [facility] Address: [address] [place] [address] Performed By: #### 5 7021-8 ####[facility] LABCLIA [id number] [address] LABCLIA [id number] [place] [address] [place] Metamyelocytes/100 WBC (Bld) 3.4 % Normal [facility] Comment on above: Order Comment: Speci men Type: BLOOD SPECIMENOrdering Facility: [facility] [facility] Address: [address] [place] [address] Performed By: #### 5 7021-8 ####[facility] LABCLIA [id number] [address] LABCLIA [id number] [place] [address] [place] Monocytes (Bld) [#/Vol] 0.79 10*3/uL Normal <0.87 [facility] Comment on above: Order Comment: Speci men Type: BLOOD SPECIMENOrdering Facility: [facility] Address: [address] [place] [address] Performed By: #### 5 7021-8 ####[facility] LABCLIA [id number] [address] LABCLIA [id number] [place] [address] [place] Monocytes/100 WBC (Bld) 10.3 % Normal [facility] Comment on above: Order Comment: Speci men Type: BLOOD SPECIMENOrdering Facility: [facility] Address: [address] [place] [address] Performed By: #### 5 7021-8 ####[facility] LABCLIA [id number] [place] [id number] LABCLIA [id number] [place] [address] [place] Neutrophils (Bld) [#/Vol] 4.37 10*3/uL Normal 1.45-7.50 [facility] Comment on above: Order Comment: Speci men Type: BLOOD SPECIMENOrdering Facility: [facility] Address: [address] [place] [address] Performed By: #### 5 7021-8 ####[facility] LABCLIA [id number] [address] LABCLIA [id number] [place] [address] [place] Neutrophils/100 WBC (Bld) 57.0 % Normal [facility] Comment on above: Order Comment: Speci men Type: BLOOD SPECIMENOrdering Facility: [facility] Address: [address] [place] [address] Performed By: #### 5 7021-8 ####[facility] LABCLIA [id number] [address] LABCLIA [id number] [place] [address] [place] Nucleated RBC (Bld) [#/Vol] 10*3/uL Normal <0.01 [facility] Comment on above: Order Comment: Speci men Type: BLOOD SPECIMENOrdering Facility: [facility] Address: [address] [place] [address] Performed By: #### 5 7021-8 ####[facility] LABCLIA [id number] [address] LABCLIA [id number] [place] [address] [place] Nucleated RBC/100 WBC (Bld) [Ratio] 0.0 /100 WBC Normal [facility] Comment on above: Order Comment: Speci men Type: BLOOD SPECIMENOrdering Facility: [facility] Address: [address] [place] [address] Performed By: #### 5 7021-8 ####[facility] LABCLIA [id number] [address] LABCLIA [id number] [place] [address] [place] Ovalocytes LM Ql (Bld) Few Normal [facility] Comment on above: Order Comment: Speci men Type: BLOOD SPECIMENOrdering Facility: [facility] Address: [address] [place] [address] Performed By: #### 5 7021-8 ####[facility] LABCLIA [id number] [address] LABCLIA [id number] [place] [address] [place] Platelet mean volume (Bld) [Entitic vol] 9.3 fL Normal 9.0-12.7 [facility] Comment on above: Order Comment: Speci men Type: BLOOD SPECIMENOrdering Facility: [facility] Address: [address] [place] [address] Performed By: #### 5 7021-8 ####[facility] LABCLIA [id number] [address] LABCLIA [id number] [place] [address] [place] Platelets (Bld) [#/Vol] 177 10*3/uL Normal 150-400 [facility] Comment on above: Order Comment: Speci men Type: BLOOD SPECIMENOrdering Facility: [facility] Address: [address] [place] [address] Performed By: #### 5 7021-8 ####[facility] LABCLIA [id number] [place] [id number] LABCLIA [id number] [place] [address] [place] Platelets Estimate (Bld) [#/Vol] Adequate Normal [facility] Comment on above: Order Comment: Speci men Type: BLOOD SPECIMENOrdering Facility: [facility] Address: [address] [place] [address] Performed By: #### 5 7021-8 ####[facility] LABCLIA [id number] [address] LABCLIA [id number] [place] [address] [place] Polychromasia LM Ql (Bld) Slight Normal [facility] Comment on above: Order Comment: Speci men Type: BLOOD SPECIMENOrdering Facility: [facility] Address: [address] [place] [address] Performed By: #### 5 7021-8 ####[facility] LABCLIA [id number] [address] LABCLIA [id number] [place] [address] [place] RBC (Bld) [#/Vol] 2.78 10*6/uL Low 3.90-5.20 [facility] Comment on above: Order Comment: Speci men Type: BLOOD SPECIMENOrdering Facility: [facility] Address: [address] [place] [address] Performed By: #### 5 7021-8 ####[facility] LABCLIA [id number] [address] LABCLIA [id number] [place] [address] [place] RED CELL MORPH Reviewed: see result s of individual morphologies Normal [facility] Comment on above: Order Comment: Speci men Type: BLOOD SPECIMENOrdering Facility: [facility] Address: [address] [place] [address] Performed By: #### 5 7021-8 ####[facility] LABCLIA [id number] [place] [id number] LABCLIA [id number] [address] [address] [place] WBC (Bld) [#/Vol] 7.66 10*3/uL Normal 3.70-11.00 [facility] Comment on above: Order Comment: Speci men Type: BLOOD SPECIMENOrdering Facility: [facility] Address: [address] [place] [address] Performed By: #### 5 7021-8 ####[facility] LABCLIA [id number] [address] LABCLIA [id number] [place] [address] [place] WBC Left Shift Ql (Bld) Present Normal [facility] Comment on above: Order Comment: Speci men Type: BLOOD SPECIMENOrdering Facility: [facility] Address: [address] [place] [address] Performed By: #### 5 7021-8 ####[facility] LABCLIA [id number] [place] [id number] LABCLIA [id number] [place] [address] [place] CNOVSPon 03-21-2024 CNOVSP Normal [facility] Comprehensive metabolic 2000 panelon 03-21-2024 Albumin [Mass/Vol] 3.7 g/dL Low 3.9-4.9 [facility] Comment on above: Order Comment: Speci men Type: BLOOD SPECIMENOrdering Facility: [facility] Address: [address] [place] [address] Performed By: #### 2 4323-8 ####[facility] LABCLIA [id number] [place] [address] ALP [Catalytic activity/Vol] 119 U/L Normal 34-123 [facility] Comment on above: Order Comment: Speci men Type: BLOOD SPECIMENOrdering Facility: [facility] Address: [address] [place] [address] Performed By: #### 2 4323-8 ####[facility] LABCLIA [id number] [place] [address] ALT [Catalytic activity/Vol] 7 U/L Normal 7-38 [facility] Comment on above: Order Comment: Speci men Type: BLOOD SPECIMENOrdering Facility: [facility] Address: [address] [place] [address] Performed By: #### 2 4323-8 ####[facility] LABCLIA [id number] [place] [address] Anion gap [Moles/Vol] 10 mmol/L Normal 8-15 [facility] Comment on above: Order Comment: Speci men Type: BLOOD SPECIMENOrdering Facility: [facility] Address: [address] [place] [address] Performed By: #### 2 4323-8 ####[facility] LABCLIA [id number] [place] [address] AST [Catalytic activity/Vol] 11 U/L Low 13-35 [facility] Comment on above: Order Comment: Speci men Type: BLOOD SPECIMENOrdering Facility: [facility] Address: [address] [place] [address] Performed By: #### 2 4323-8 ####[facility] LABCLIA [id number] [place] [address] Bilirubin [Mass/Vol] mg/dL Low 0.2-1.3 [facility] Comment on above: Order Comment: Speci men Type: BLOOD SPECIMENOrdering Facility: [facility] Address: [address] [place] [address] Performed By: #### 2 4323-8 ####[facility] LABCLIA [id number] [place] [address] Calcium [Mass/Vol] 9.3 mg/dL Normal 8.5-10.2 [facility] Comment on above: Order Comment: Speci men Type: BLOOD SPECIMENOrdering Facility: [facility] Address: [address] [place] [address] Performed By: #### 2 4323-8 ####[facility] LABCLIA [id number] [place] [address] Chloride [Moles/Vol] 106 mmol/L Normal 98-107 [facility] Comment on above: Order Comment: Speci men Type: BLOOD SPECIMENOrdering Facility: [facility] Address: [address] [place] [address] Performed By: #### 2 4323-8 ####[facility] LABCLIA [id number] [place] [address] CO2 [Moles/Vol] 24 mmol/L Normal 22-30 [facility] Comment on above: Order Comment: Speci men Type: BLOOD SPECIMENOrdering Facility: [facility] Address: [address] [place] [address] Performed By: #### 2 4323-8 ####[facility] LABCLIA [id number] [place] [address] Creatinine [Mass/Vol] 0.65 mg/dL Normal 0.58-0.96 [facility] Comment on above: Order Comment: Speci men Type: BLOOD SPECIMENOrdering Facility: [facility] Address: [address] [place] [address] Performed By: #### 2 4323-8 ####[facility] LABCLIA [id number] [place] [address] Creatinine and Glomerular filtration rate.predicted panel (S/P/Bld) 101 mL/min/1.73m??? Normal >=60 [facility] Comment on above: Order Comment: Speci men Type: BLOOD SPECIMENOrdering Facility: [facility] Address: [address] [place] [address] Result Comment: Audrey mated Glomerular Filtration Rate (eGFR) is calculated using the 2020 CKD-EPI creatinine equation. This equation utilizes serum creatinine, sex, and age as parameters. The creatinine assay has traceable calibration to isotope dilution-mass spectrometry. Refer to KDIGO guidelines for clinical interpretation. In patients with unstable renal function, e.g. those with acute kidney injury, the eGFR may not accurately reflect actual GFR. Performed By: #### 2 4323-8 ####[facility] LABCLIA [id number] [place] [address] Glucose [Mass/Vol] 152 mg/dL High 74-99 [facility] Comment on above: Order Comment: Sheryl epperson Type: BLOOD SPECIMENOrdering Facility: [facility] Address: [address] [place] [address] Result Comment: The [place] Diabetes [employer] (ADA) provides guidance for cutoff values for fasting glucose and random glucose. The ADA defines fasting as no caloric intake for at least 8 hours. Fasting plasma glucose results between 100 to 125 mg/dL indicate increased risk for diabetes (prediabetes).Fasting plasma glucose results greater than or equal to 126 mg/dL meet the criteria for diagnosis of diabetes. In the absence of unequivocal hyperglycemia, results should be confirmed by repeat testing. In a patient with classic symptoms of hyperglycemia or hyperglycemic crisis, random plasma glucose results greater than or equal to 200 mg/dL meet the criteria for diagnosis of diabetes.Reference: Standards of Medical Care in Diabetes 2016, [place] [employer]. Diabetes Care. 2016.39(Suppl 1). Performed By: #### 2 4323-8 ####[facility] LABCLIA [id number] [place] [address] Potassium [Moles/Vol] 4.0 mmol/L Normal 3.7-5.1 [facility] Comment on above: Order Comment: Sheryl epperson Type: BLOOD SPECIMENOrdering Facility: [facility] Address: [address] [place] [address] Performed By: #### 2 4323-8 ####[facility] LABCLIA [id number] [place] [address] Protein [Mass/Vol] 6.1 g/dL Low 6.3-8.0 [facility] Comment on above: Order Comment: Speci men Type: BLOOD SPECIMENOrdering Facility: [facility] Address: [address] [place] [address] Performed By: #### 2 4323-8 ####[facility] LABCLIA [id number] [place] [address] Sodium [Moles/Vol] 140 mmol/L Normal 136-144 [facility] Comment on above: Order Comment: Speci men Type: BLOOD SPECIMENOrdering Facility: [facility] Address: [address] [place] [address] Performed By: #### 2 4323-8 ####[facility] LABCLIA [id number] [place] [address] Urea nitrogen [Mass/Vol] 18 mg/dL Normal 7-21 [facility] Comment on above: Order Comment: Speci men Type: BLOOD SPECIMENOrdering Facility: [facility] Address: [address] [place] [address] Performed By: #### 2 4323-8 ####[facility] LABCLIA [id number] [place] [address] TSH SerPl-aCncon 03-21-2024 TSH Qn 1.990 m[IU]/L Normal 0.270-4.200 [facility] Comment on above: Order Comment: Speci men Type: BLOOD SPECIMENOrdering Facility: [facility] Address: [address] [place] [address] Performed By: #### 3 016-3 ####[facility] LABCLIA [id number] [place] [address] [place] CBC W Auto Differential pane l (Bld)on 02-28-2024 Basophils (Bld) [#/Vol] 0.00 10*3/uL Normal <0.11 [facility] Comment on above: Order Comment: Speci men Type: BLOOD SPECIMENOrdering Facility: [facility] Address: [address] [place] [address] Performed By: #### 5 7021-8 ####[facility] LABCLIA [id number] [address] LABCLIA [id number] [place] [address] [place] Basophils/100 WBC (Bld) 0.0 % Normal [facility] Comment on above: Order Comment: Speci men Type: BLOOD SPECIMENOrdering Facility: [facility] Address: [address] [place] [address] Performed By: #### 5 7021-8 ####[facility] LABCLIA [id number] [address] LABCLIA [id number] [place] [address] [place] Dacrocytes LM Ql (Bld) Few Normal [facility] Comment on above: Order Comment: Speci men Type: BLOOD SPECIMENOrdering Facility: [facility] Address: [address] [place] [address] Performed By: #### 5 7021-8 ####[facility] LABCLIA [id number] [address] LABCLIA [id number] [place] [address] [place] Differential cell count method Nom (Bld) Manual Normal [facility] Comment on above: Order Comment: Speci men Type: BLOOD SPECIMENOrdering Facility: [facility] Address: [address] [place] [address] Performed By: #### 5 7021-8 ####[facility] LABCLIA [id number] [address] LABCLIA [id number] [place] [address] [place] Eosinophils (Bld) [#/Vol] 0.00 10*3/uL Normal <0.46 [facility] Comment on above: Order Comment: Speci men Type: BLOOD SPECIMENOrdering Facility: [facility] Address: [address] [place] [address] Performed By: #### 5 7021-8 ####[facility] LABCLIA [id number] [address] LABCLIA [id number] [place] [address] [place] Eosinophils/100 WBC (Bld) 0.0 % Normal [facility] Comment on above: Order Comment: Speci men Type: BLOOD SPECIMENOrdering Facility: [facility] Address: [address] [place] [address] Performed By: #### 5 7021-8 ####[facility] LABCLIA [id number] [address] LABCLIA [id number] [place] [address] [place] Erythrocyte distribution width (RBC) [Ratio] 12.8 % Normal 11.5-15.0 [facility] Comment on above: Order Comment: Speci men Type: BLOOD SPECIMENOrdering Facility: [facility] Address: [address] [place] [address] Performed By: #### 5 7021-8 ####[facility] LABCLIA [id number] [address] LABCLIA [id number] [place] [address] [place] Hematocrit (Bld) [Volume fraction] 34.7 % Low 36.0-46.0 [facility] Comment on above: Order Comment: Speci men Type: BLOOD SPECIMENOrdering Facility: [facility] Address: [address] [place] [address] Performed By: #### 5 7021-8 ####[facility] LABCLIA [id number] [address] LABCLIA [id number] [place] [address] [place] Hemoglobin (Bld) [Mass/Vol] 11.4 g/dL Low 11.5-15.5 [facility] Comment on above: Order Comment: Speci men Type: BLOOD SPECIMENOrdering Facility: [facility] Address: [address] [place] [address] Performed By: #### 5 7021-8 ####[facility] LABCLIA [id number] [address] LABCLIA [id number] [place] [address] [place] Lymphocytes (Bld) [#/Vol] 0.46 10*3/uL Low 1.00-4.00 [facility] Comment on above: Order Comment: Speci men Type: BLOOD SPECIMENOrdering Facility: [facility] Address: [address] [place] [address] Performed By: #### 5 7021-8 ####[facility] LABCLIA [id number] [place] [id number] LABCLIA [id number] [place] [address] [place] Lymphocytes/100 WBC (Bld) 5.1 % Normal [facility] Comment on above: Order Comment: Speci men Type: BLOOD SPECIMENOrdering Facility: [facility] Address: [address] [place] [address] Performed By: #### 5 7021-8 ####[facility] LABCLIA [id number] [address] LABCLIA [id number] [place] [address] [place] MCH (RBC) [Entitic mass] 36.2 pg High 26.0-34.0 [facility] Comment on above: Order Comment: Speci men Type: BLOOD SPECIMENOrdering Facility: [facility] Address: [address] [place] [address] Performed By: #### 5 7021-8 ####[facility] LABCLIA [id number] [address] LABCLIA [id number] [place] [address] [place] MCHC (RBC) [Mass/Vol] 32.9 g/dL Normal 30.5-36.0 [facility] Comment on above: Order Comment: Speci men Type: BLOOD SPECIMENOrdering Facility: [facility] Address: [address] [place] [address] Performed By: #### 5 7021-8 ####[facility] LABCLIA [id number] [address] LABCLIA [id number] [place] [address] [place] MCV (RBC) [Entitic vol] 110.2 fL High 80.0-100.0 [facility] Comment on above: Order Comment: Speci men Type: BLOOD SPECIMENOrdering Facility: [facility] Address: [address] [place] [address] Performed By: #### 5 7021-8 ####[facility] LABCLIA [id number] [address] LABCLIA [id number] [place] [address] [place] Metamyelocytes/100 WBC (Bld) 5.1 % Normal [facility] Comment on above: Order Comment: Speci men Type: BLOOD SPECIMENOrdering Facility: [facility] Address: [address] [place] [address] Performed By: #### 5 7021-8 ####[facility] LABCLIA [id number] [place] [id number] LABCLIA [id number] [address] [address] [place] Monocytes (Bld) [#/Vol] 0.61 10*3/uL Normal <0.87 [facility] Comment on above: Order Comment: Speci men Type: BLOOD SPECIMENOrdering Facility: [facility] Address: [address] [place] [address] Performed By: #### 5 7021-8 ####[facility] LABCLIA [id number] [address] LABCLIA [id number] [place] [address] [place] Monocytes/100 WBC (Bld) 6.8 % Normal [facility] Comment on above: Order Comment: Speci men Type: BLOOD SPECIMENOrdering Facility: [facility] Address: [address] [place] [address] Performed By: #### 5 7021-8 ####[facility] LABCLIA [id number] [address] LABCLIA [id number] [place] [address] [place] Neutrophils (Bld) [#/Vol] 7.42 10*3/uL Normal 1.45-7.50 [facility] Comment on above: Order Comment: Speci men Type: BLOOD SPECIMENOrdering Facility: [facility] Address: [address] [place] [address] Performed By: #### 5 7021-8 ####[facility] LABCLIA [id number] [place] [id number] LABCLIA [id number] [place] [address] [place] Neutrophils/100 WBC (Bld) 83.0 % Normal [facility] Comment on above: Order Comment: Speci men Type: BLOOD SPECIMENOrdering Facility: [facility] Address: [address] [place] [address] Performed By: #### 5 7021-8 ####[facility] LABCLIA [id number] [address] LABCLIA [id number] [place] [address] [place] Nucleated RBC (Bld) [#/Vol] 0.08 10*3/uL High <0.01 [facility] Comment on above: Order Comment: Speci men Type: BLOOD SPECIMENOrdering Facility: [facility] Address: [address] [place] [address] Performed By: #### 5 7021-8 ####[facility] LABCLIA [id number] [address] LABCLIA [id number] [place] [address] [place] Nucleated RBC/100 WBC (Bld) [Ratio] 0.9 /100 WBC Normal [facility] Comment on above: Order Comment: Speci men Type: BLOOD SPECIMENOrdering Facility: [facility] Address: [address] [place] [address] Performed By: #### 5 7021-8 ####[facility] LABCLIA [id number] [address] LABCLIA [id number] [place] [address] [place] Ovalocytes LM Ql (Bld) Few Normal [facility] Comment on above: Order Comment: Speci men Type: BLOOD SPECIMENOrdering Facility: [facility] Address: [address] [place] [address] Performed By: #### 5 7021-8 ####[facility] LABCLIA [id number] [place] [id number] LABCLIA [id number] [place] [address] [place] Platelet mean volume (Bld) [Entitic vol] 10.1 fL Normal 9.0-12.7 [facility] Comment on above: Order Comment: Speci men Type: BLOOD SPECIMENOrdering Facility: [facility] Address: [address] [place] [address] Performed By: #### 5 7021-8 ####[facility] LABCLIA [id number] [address] LABCLIA [id number] [place] [address] [place] Platelets (Bld) [#/Vol] 113 10*3/uL Low 150-400 [facility] Comment on above: Order Comment: Speci men Type: BLOOD SPECIMENOrdering Facility: [facility] Address: [address] [place] [address] Performed By: #### 5 7021-8 ####[facility] LABCLIA [id number] [address] LABCLIA [id number] [place] [address] [place] Platelets Estimate (Bld) [#/Vol] Decreased Normal [facility] Comment on above: Order Comment: Speci men Type: BLOOD SPECIMENOrdering Facility: [facility] Address: [address] [place] [address] Performed By: #### 5 7021-8 ####[facility] LABCLIA [id number] [address] LABCLIA [id number] [place] [address] [place] Polychromasia LM Ql (Bld) Slight Normal [facility] Comment on above: Order Comment: Speci men Type: BLOOD SPECIMENOrdering Facility: [facility] Address: [address] [place] [address] Performed By: #### 5 7021-8 ####[facility] LABCLIA [id number] [place] [id number] LABCLIA [id number] [place] [address] [place] RBC (Bld) [#/Vol] 3.15 10*6/uL Low 3.90-5.20 [facility] Comment on above: Order Comment: Speci men Type: BLOOD SPECIMENOrdering Facility: [facility] Address: [address] [place] [address] Performed By: #### 5 7021-8 ####[facility] LABCLIA [id number] [address] LABCLIA [id number] [place] [address] [place] RBC FRAGMENTS Few Abnormal None Seen [facility] Comment on above: Order Comment: Speci men Type: BLOOD SPECIMENOrdering Facility: [facility] Address: [address] [place] [address] Performed By: #### 5 7021-8 ####[facility]LUIS [facility] LABCLIA [id number] [address] LABCLIA [id number] [place] [address] [place] RED CELL MORPH Reviewed: see result s of individual morphologies Normal [facility] Comment on above: Order Comment: Speci men Type: BLOOD SPECIMENOrdering Facility: [facility] Address: [address] [place] [address] Performed By: #### 5 7021-8 ####[facility] LABCLIA [id number] [address] LABCLIA [id number] [address] [address] [place] WBC (Bld) [#/Vol] 8.94 10*3/uL Normal 3.70-11.00 [facility] Comment on above: Order Comment: Speci men Type: BLOOD SPECIMENOrdering Facility: [facility] Address: [address] [place] [address] Performed By: #### 5 7021-8 ####[facility] LABCLIA [id number] [place], [place] [address] [facility] [facility] LABCLIA [id number] [address] [address] [place] CNOVSPon 02-28-2024 CNOVSP Normal [facility] metabolic 2000 panelon 02-28-2024 Albumin [Mass/Vol] 4.0 g/dL Normal 3.9-4.9 [facility] Comment on above: Order Comment: Speci men Type: BLOOD SPECIMENOrdering Facility: [facility] Address: [address] [place] [address] Performed By: #### 2 4323-8 ####[facility] LABCLIA [id number] [place] [address] ALP [Catalytic activity/Vol] 96 U/L Normal 34-123 [facility] Comment on above: Order Comment: Speci men Type: BLOOD SPECIMENOrdering Facility: [facility] Address: [address] [place] [address] Performed By: #### 2 4323-8 ####[facility] LABCLIA [id number] [place] [address] ALT [Catalytic activity/Vol] 68 U/L High 7-38 [facility] Comment on above: Order Comment: Speci men Type: BLOOD SPECIMENOrdering Facility: [facility] Address: [address] [place] [address] Performed By: #### 2 4323-8 ####[facility] LABCLIA [id number] [place] [address] Anion gap [Moles/Vol] 11 mmol/L Normal 8-15 [facility] Comment on above: Order Comment: Speci men Type: BLOOD SPECIMENOrdering Facility: [facility] Address: [address] [place], [place] [address] Performed By: #### 2 4323-8 ####[facility] LABCLIA [id number] [place] [address] AST [Catalytic activity/Vol] 19 U/L Normal 13-35 [facility] Comment on above: Order Comment: Speci men Type: BLOOD SPECIMENOrdering Facility: [facility] Address: [address] [place] [address] Performed By: #### 2 4323-8 ####[facility] LABCLIA [id number] [place] [address] Bilirubin [Mass/Vol] 0.3 mg/dL Normal 0.2-1.3 [facility] Comment on above: Order Comment: Speci men Type: BLOOD SPECIMENOrdering Facility: [facility] Address: [address] [place] [address] Performed By: #### 2 4323-8 ####[facility] LABCLIA [id number] [place] [address] Calcium [Mass/Vol] 8.9 mg/dL Normal 8.5-10.2 [facility] Comment on above: Order Comment: Speci men Type: BLOOD SPECIMENOrdering Facility: [facility] Address: [address] [place] [address] Performed By: #### 2 4323-8 ####[facility] LABCLIA [id number] [place] [address] Chloride [Moles/Vol] 101 mmol/L Normal 98-107 [facility] Comment on above: Order Comment: Speci men Type: BLOOD SPECIMENOrdering Facility: [facility] Address: [address] [place] [address] Performed By: #### 2 4323-8 ####[facility] LABCLIA [id number] [place] [address] CO2 [Moles/Vol] 24 mmol/L Normal 22-30 [facility] Comment on above: Order Comment: Speci men Type: BLOOD SPECIMENOrdering Facility: [facility] Address: [address] [place] [address] Performed By: #### 2 4323-8 ####[facility] LABCLIA [id number] [place] [address] Creatinine [Mass/Vol] 0.52 mg/dL Low 0.58-0.96 [facility] Comment on above: Order Comment: Speci men Type: BLOOD SPECIMENOrdering Facility: [facility] Address: [address] [place] [address] Performed By: #### 2 4323-8 ####[facility] LABCLIA [id number] [place] [address] Creatinine and Glomerular filtration rate.predicted panel (S/P/Bld) 107 mL/min/1.73m??? Normal >=60 [facility] Comment on above: Order Comment: Speci men Type: BLOOD SPECIMENOrdering Facility: [facility] Address: [address] [place] [address] Result Comment: Audrey mated Glomerular Filtration Rate (eGFR) is calculated using the 2020 CKD-EPI creatinine equation. This equation utilizes serum creatinine, sex, and age as parameters. The creatinine assay has traceable calibration to isotope dilution-mass spectrometry. Refer to KDIGO guidelines for clinical interpretation. In patients with unstable renal function, e.g. those with acute kidney injury, the eGFR may not accurately reflect actual GFR. Performed By: #### 2 4323-8 ####[facility] LABCLIA [id number] [place] [address] Glucose [Mass/Vol] 139 mg/dL High 74-99 [facility] Comment on above: Order Comment: Speci men Type: BLOOD SPECIMENOrdering Facility: [facility] Address: [address] [place] [address] Result Comment: The [place] Diabetes Association (ADA) provides guidance for cutoff values for fasting glucose and random glucose. The ADA defines fasting as no caloric intake for at least 8 hours. Fasting plasma glucose results between 100 to 125 mg/dL indicate increased risk for diabetes (prediabetes).Fasting plasma glucose results greater than or equal to 126 mg/dL meet the criteria for diagnosis of diabetes. In the absence of unequivocal hyperglycemia, results should be confirmed by repeat testing. In a patient with classic symptoms of hyperglycemia or hyperglycemic crisis, random plasma glucose results greater than or equal to 200 mg/dL meet the criteria for diagnosis of diabetes.Reference: Standards of Medical Care in Diabetes 2016, [place] Diabetes Association. Diabetes Care. 2016.39(Suppl 1). Performed By: #### 2 4323-8 ####[facility] LABCLIA [id number] [place] [address] Potassium [Moles/Vol] 4.2 mmol/L Normal 3.7-5.1 [facility] Comment on above: Order Comment: Speci men Type: BLOOD SPECIMENOrdering Facility: [facility] Address: [address] [id number] Performed By: #### 2 4323-8 ####[facility] LABCLIA [id number] [place] [address] Protein [Mass/Vol] 5.9 g/dL Low 6.3-8.0 [facility] Comment on above: Order Comment: Speci men Type: BLOOD SPECIMENOrdering Facility: [facility] Address: [address] [place] [address] Performed By: #### 2 4323-8 ####[facility] LABCLIA [id number] [place] [address] Sodium [Moles/Vol] 136 mmol/L Normal 136-144 [facility] Comment on above: Order Comment: Speci men Type: BLOOD SPECIMENOrdering Facility: [facility] Address: [address] [place] [address] Performed By: #### 2 4323-8 ####[facility] LABCLIA [id number] [place] [address] Urea nitrogen [Mass/Vol] 26 mg/dL High 7-21 [facility] Comment on above: Order Comment: Speci men Type: BLOOD SPECIMENOrdering Facility: [facility] Address: [address] [place] [address] Performed By: #### 2 4323-8 ####[facility] LABCLIA [id number] [place] [address] Cortezra Corbinl-mCncon 02-28-20 24 Cortisol [Mass/Vol] 2.1 ug/dL Low 4.8-19.5 [facility] Comment on above: Order Comment: Speci men Type: BLOOD SPECIMENOrdering Facility: [facility] Address: [address] [place] [address] Result Comment: Prov ided reference range is from 6-10 AM sample collection time.Cortisol Reference Range: 6-10 AM = 4.8-19.5 ug/dL, 4-8 PM = 2.5-11.9 ug/dL Performed By: #### 3 016-3, 2143-6 ####[facility] LABCLIA [id number] [place] [address] [place] HbA1c (Bld)on 02-28-2024 Average glucose Estimated from glycated hemoglobin (Bld) [Mass/Vol] 105 mg/dL Normal [facility] Comment on above: Order Comment: Speci men Type: BLOOD SPECIMENOrdering Facility: [facility] Address: [address] [place] [address] Result Comment: eAG: (Estimated average glucose) is a calculated value from HgbA1c and is warehouse representative of the average blood glucose level in the last 2-3 month period. Performed By: #### 5 5454-3 ####[facility] LABCLIA [id number] [place] [address] [place] HbA1c (Bld) [Mass fraction] 5.3 % Normal 4.3-5.6 [facility] Comment on above: Order Comment: Speci men Type: BLOOD SPECIMENOrdering Facility: [facility] Address: [address] [place] [address] Result Comment: Angelica [place] Diabetes Association guidelines indicate that patients with HgbA1c in the range 5.7-6.4% are at increased risk for development of diabetes, and intervention by lifestyle modification may be beneficial. HgbA1c greater or equal to 6.5% is considered diagnostic of diabetes. Performed By: #### 5 5454-3 ####[facility] LABCLIA [id number] [place] [address] [place] TSH SerPl-aCncon 02-28-2024 TSH Qn 0.802 m[IU]/L Normal 0.270-4.200 [facility] Comment on above: Order Comment: Speci men Type: BLOOD SPECIMENOrdering Facility: [facility] Address: [address] [place], [place] [address] [address] Performed By: #### 3 016-3, 2143-6 ####[facility] LABCLIA [id number] [place] [address] [place] CNOVon 02-19-2024 CNOV Normal [facility] CT BRAIN STEREOLOCAL WO IVCO Non 02-19-2024 CT BRAIN STEREOLOCAL WO IVCON Normal [facility] CT Guidance for stereotactic biopsy of Head-- WO contraston 02-19-2024 IMPRESSION: Stereotactic localization examination. Integration Technician: ABELINO Transcribe Date/Time: Feb 19 2024 8:39A Dictated by : NESTOR TEE MD This examination was interpreted and the report reviewed and electronically signed by: LULU SILVA MD on Feb 19 2024 8:46AM [facility] DIVISION OF RADIOLOGY * * *Final Report* * * DATE OF EXAM: Feb 19 2024 8:35AM [facility] 0503 - CT BRAIN STEREOLOCAL WO IVCON / PROCEDURE REASON: Secondary malignant neoplasm of brain (HCC) * * * * Physician Interpretation * * * * EXAMINATION: CT STEREOLOCALIZATION BRAIN WITHOUT CONTRAST HISTORY: Secondary malignant neoplasm of brain (HCC) TECHNIQUE: CT head high-resolution stereotactic localization without contrast. M: CTBWO_3 CT Dose-Length Product (DLP): 1483 mGy*cm CT Dose Reduction Employed: No dose reduction techniques were required COMPARISON: MR brain from the same day RESULT: Examination performed with stereotactic head frame in place. Fixation pins result in streak artifact which obscures evaluation of the brain parenchyma on multiple images. No fracture or penetration of the calvarium by the grid pins. Post-operative change: None. Acute change: No evidence of an acute intracranial process. Hemorrhage: No evidence of acute intracranial hemorrhage. Mass Lesion / Mass Effect: Known right frontal parenchymal metastasis is better assessed on immediately prior brain MRI. No significant mass effect. Chronic change: Severe diffuse periventricular white matter hypoattenuation, likely from prior whole brain radiation therapy. Atherosclerotic calcifications of the cavernous ICAs and V4 vertebral arteries. Parenchyma: Mild generalized parenchymal volume loss. Ventricles: Ventricular caliber commensurate with volume loss. Other: The calvarium, skull base, orbits and extracranial soft tissues are unremarkable. Mild mucosal thickening in the sphenoid sinuses. Small mastoid effusions. DIVISION OF RADIOLOGY Provider, [facility] - 02/19/2024 * * *Final Report* * * DATE OF EXAM: Feb 19 2024 8:35AM [facility] 0503 - CT BRAIN STEREOLOCAL WO IVCON / PROCEDURE REASON: Secondary malignant neoplasm of brain (HCC) * * * * Physician Interpretation * * * * EXAMINATION: CT STEREOLOCALIZATION BRAIN WITHOUT CONTRAST HISTORY: Secondary malignant neoplasm of brain (HCC) TECHNIQUE: CT head high-resolution stereotactic localization without contrast. M: CTBWO_3 CT Dose-Length Product (DLP): 1483 mGy*cm CT Dose Reduction Employed: No dose reduction techniques were required COMPARISON: MR brain from the same day RESULT: Examination performed with stereotactic head frame in place. Fixation pins result in streak artifact which obscures evaluation of the brain parenchyma on multiple images. No fracture or penetration of the calvarium by the grid pins. Post-operative change: None. Acute change: No evidence of an acute intracranial process. Hemorrhage: No evidence of acute intracranial hemorrhage. Mass Lesion / Mass Effect: Known right frontal parenchymal metastasis is better assessed on immediately prior brain MRI. No significant mass effect. Chronic change: Severe diffuse periventricular white matter hypoattenuation, likely from prior whole brain radiation therapy. Atherosclerotic calcifications of the cavernous ICAs and V4 vertebral arteries. Parenchyma: Mild generalized parenchymal volume loss. Ventricles: Ventricular caliber commensurate with volume loss. Other: The calvarium, skull base, orbits and extracranial soft tissues are unremarkable. Mild mucosal thickening in the sphenoid sinuses. Small mastoid effusions. IMPRESSION IMPRESSION: Stereotactic localization examination. Integration Technician: ABELINO Transcribe Date/Time: Feb 19 2024 8:39A Dictated by : NESTOR TEE MD This examination was interpreted and the report reviewed and electronically signed by: LULU SILVA MD on Feb 19 2024 8:46AM EST [facility] CT Guidance for stereotactic biopsy of Head-- WO contrastOrdered By: Ccf Provider on 02-19-2024 [facility] MR Guidance for stereotactic localization of Brain-- W contrast Jaz 02-19-2024 * * *Final Report* * * DATE OF EXAM: Feb 19 2024 7:58AM [facility] 0289 - MRI BRAIN LOCAL W IVCON / PROCEDURE REASON: Secondary malignant neoplasm of brain (HCC) * * * * Physician Interpretation * * * * EXAMINATION: MRI BRAIN LOCAL W IVCON HISTORY: 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 History of prior whole brain radiation therapy. TECHNIQUE: High resolution, gadolinium enhanced axial gradient echo volume acquisition was performed of the head for preoperative localization. Supplemental: None Contrast: 4 mL Elucirem IV COMPARISON: FDG PET/CT dated 01/12/2024, MR brain dated 09/17/2022 and 01/26/2024 RESULT: Acute Change: No diffusion restriction to suggest acute infarct. Mass Lesion / Mass Effect: 7 mm enhancing parenchymal metastasis in the right anterior parasagittal frontal lobe (series 2 image 95), unchanged since 01/26/2024. No extra-axial collection. No midline shift. Chronic Change: Diffusely T1 hypointense periventricular white matter, likely from prior radiation therapy. Parenchyma: Mild parenchymal volume loss for age. Ventricles: Ventricular enlargement concordant with the degree of parenchymal volume loss. Skull Base: Grossly normal pituitary region. Normal craniocervical junction. No marrow replacing process. Other: Mild mucosal thickening in the sphenoid sinuses. Small bilateral mastoid effusions. Unremarkable orbits. Unremarkable extracranial soft tissues. 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 History of prior whole brain radiation therapy. TECHNIQUE: High resolution, gadolinium enhanced axial gradient echo volume acquisition was performed of the head for preoperative localization. Supplemental: None Contrast: 4 mL Elucirem IV COMPARISON: FDG PET/CT dated 01/12/2024, MR brain dated 09/17/2022 and 01/26/2024 RESULT: Acute Change: No diffusion restriction to suggest acute infarct. Mass Lesion / Mass Effect: 7 mm enhancing parenchymal metastasis in the right anterior parasagittal frontal lobe (series 2 image 95), unchanged since 01/26/2024. No extra-axial collection. No midline shift. Chronic Change: Diffusely T1 hypointense periventricular white matter, likely from prior radiation therapy. Parenchyma: Mild parenchymal volume loss for age. Ventricles: Ventricular enlargement concordant with the degree of parenchymal volume loss. Skull Base: Grossly normal pituitary region. Normal craniocervical junction. No marrow replacing process. Other: Mild mucosal thickening in the sphenoid sinuses. Small bilateral mastoid effusions. Unremarkable orbits. Unremarkable extracranial soft tissues. IMPRESSION IMPRESSION: Preprocedure localization examination. Integration Technician: PSCB Transcribe Date/Time: Feb 19 2024 8:18A Dictated by : NESTOR TEE MD This examination was interpreted and the report reviewed and electronically signed by: LULU SILVA MD on Feb 19 2024 8:32AM EST [facility] MR Guidance for stereotactic localization of Brain-- W contrast IVOrdered By: Ccf Provider on 02-19-2024 [facility] MRI BRAIN LOCAL W IVCONon MRI BRAIN LOCAL W IVCON Normal [facility] No Panel Informationon 02-18 Radiology Study observation (narrative) [facility] OPERATIVE NOon 02-19-2024 OPERATIVE NO Normal [facility] CNPNon 02-16-2024 CNPN Normal [facility] CNOVon 02-15-2024 CNOV Normal [facility] CBC W Auto Differential pane l (Bld)on 02-07-2024 Basophils (Bld) [#/Vol] [facility] Basophils/100 WBC (Bld) 0.1 % [facility] Differential cell count method Nom (Bld) Auto [facility] Eosinophils (Bld) [#/Vol] [facility] Eosinophils/100 WBC (Bld) 0.2 % [facility] Erythrocyte distribution width (RBC) [Ratio] 13.2 % 11.5 - 15.0 % [facility] Hematocrit (Bld) [Volume fraction] 38.5 % 36.0 - 46.0 % [facility] Hemoglobin (Bld) [Mass/Vol] 13.1 g/dL 11.5 - 15.5 g/dL [facility] Immature granulocytes (Bld) [#/Vol] 0.20 10*3/uL High [facility] Immature granulocytes/100 WBC (Bld) 1.7 % [facility] Interpretation and review of laboratory results Abnormal [facility] Lymphocytes (Bld) [#/Vol] 0.49 10*3/uL Low [facility] Lymphocytes/100 WBC (Bld) 4.3 % [facility] MCH (RBC) [Entitic mass] 37.4 pg High 26.0 - 34.0 pg [facility] MCHC (RBC) [Mass/Vol] 34.0 g/dL 30.5 - 36.0 g/dL [facility] MCV (RBC) [Entitic vol] 110.0 fL High 80.0 - 100.0 fL [facility] Monocytes (Bld) [#/Vol] 0.39 10*3/uL [facility] Monocytes/100 WBC (Bld) 3.4 % [facility] Neutrophils (Bld) [#/Vol] 10.32 10*3/uL High [facility] Neutrophils/100 WBC (Bld) 90.3 % [facility] Nucleated RBC (Bld) [#/Vol] [facility] Nucleated RBC/100 WBC (Bld) [Ratio] 0.0 % /100 WBC [facility] Platelet mean volume (Bld) [Entitic vol] 9.5 fL 9.0 - 12.7 fL [facility] Platelets (Bld) [#/Vol] 241 10*3/uL [facility] RBC (Bld) [#/Vol] 3.50 10*6/uL Low 3.90 - 5.2 0 m/uL [facility] WBC (Bld) [#/Vol] 11.43 10*3/uL High [facility] Basophils (Bld) [#/Vol] 10*3/uL Normal <0.11 [facility] Comment on above: Order Comment: Speci men Type: BLOOD SPECIMENOrdering Facility: [facility] Address: [address] [place] [address] Performed By: #### 5 7021-8 ####[facility] LABCLIA [id number] [place] [address] Basophils/100 WBC (Bld) 0.1 % Normal [facility] Comment on above: Order Comment: Speci men Type: BLOOD SPECIMENOrdering Facility: [facility] Address: [address] [place] [address] Performed By: #### 5 7021-8 ####[facility] LABCLIA [id number] [place] [address] Differential cell count method Nom (Bld) Auto Normal [facility] Comment on above: Order Comment: Speci men Type: BLOOD SPECIMENOrdering Facility: [facility] Address: [address] [place] [address] Performed By: #### 5 7021-8 ####[facility] LABCLIA [id number] [place] [address] Eosinophils (Bld) [#/Vol] 10*3/uL Normal <0.46 [facility] Comment on above: Order Comment: Speci men Type: BLOOD SPECIMENOrdering Facility: [facility] Address: [address] [place] [address] Performed By: #### 5 7021-8 ####[facility] LABCLIA [id number] [place] [address] Eosinophils/100 WBC (Bld) 0.2 % Normal [facility] Comment on above: Order Comment: Speci men Type: BLOOD SPECIMENOrdering Facility: [facility] Address: [address] [place] [address] Performed By: #### 5 7021-8 ####[facility] LABCLIA [id number] [place] [address] Erythrocyte distribution width (RBC) [Ratio] 13.2 % Normal 11.5-15.0 [facility] Comment on above: Order Comment: Speci men Type: BLOOD SPECIMENOrdering Facility: [facility] Address: [address] [place] [address] Performed By: #### 5 7021-8 ####[facility] LABCLIA [id number] [place] [address] Hematocrit (Bld) [Volume fraction] 38.5 % Normal 36.0-46.0 [facility] Comment on above: Order Comment: Speci men Type: BLOOD SPECIMENOrdering Facility: [facility] Address: [address] [place] [address] Performed By: #### 5 7021-8 ####[facility] LABCLIA [id number] [place] [address] Hemoglobin (Bld) [Mass/Vol] 13.1 g/dL Normal 11.5-15.5 [facility] Comment on above: Order Comment: Speci men Type: BLOOD SPECIMENOrdering Facility: [facility] Address: [address] [place] [address] Performed By: #### 5 7021-8 ####[facility] LABCLIA [id number] [place] [address] Immature granulocytes (Bld) [#/Vol] 0.20 10*3/uL High <0.10 [facility] Comment on above: Order Comment: Speci men Type: BLOOD SPECIMENOrdering Facility: [facility] Address: [address] [place] [address] Performed By: #### 5 7021-8 ####[facility] LABCLIA [id number] [place] [address] Immature granulocytes/100 WBC (Bld) 1.7 % Normal [facility] Comment on above: Order Comment: Speci men Type: BLOOD SPECIMENOrdering Facility: [facility] Address: [address] [place] [address] Performed By: #### 5 7021-8 ####[facility] LABCLIA [id number] [place] [address] Lymphocytes (Bld) [#/Vol] 0.49 10*3/uL Low 1.00-4.00 [facility] Comment on above: Order Comment: Speci men Type: BLOOD SPECIMENOrdering Facility: [facility] Address: [address] [place] [address] Performed By: #### 5 7021-8 ####[facility] LABCLIA [id number] [place] [place] [address] Lymphocytes/100 WBC (Bld) 4.3 % Normal [facility] Comment on above: Order Comment: Speci men Type: BLOOD SPECIMENOrdering Facility: [facility] Address: [address] [place] [address] Performed By: #### 5 7021-8 ####[facility] LABCLIA [id number] [place] [address] MCH (RBC) [Entitic mass] 37.4 pg High 26.0-34.0 [facility] Comment on above: Order Comment: Speci men Type: BLOOD SPECIMENOrdering Facility: [facility] Address: [address] [place] [address] Performed By: #### 5 7021-8 ####[facility] LABCLIA [id number] [place] [address] MCHC (RBC) [Mass/Vol] 34.0 g/dL Normal 30.5-36.0 [facility] Comment on above: Order Comment: Speci men Type: BLOOD SPECIMENOrdering Facility: [facility] Address: [address] [place] [address] Performed By: #### 5 7021-8 ####[facility] LABCLIA [id number] [place] [address] MCV (RBC) [Entitic vol] 110.0 fL High 80.0-100.0 [facility] Comment on above: Order Comment: Speci men Type: BLOOD SPECIMENOrdering Facility: [facility] Address: [address] [place] [address] Performed By: #### 5 7021-8 ####[facility] LABCLIA [id number] [place] [address] Monocytes (Bld) [#/Vol] 0.39 10*3/uL Normal <0.87 [facility] Comment on above: Order Comment: Speci men Type: BLOOD SPECIMENOrdering Facility: [facility] Address: [address] [place] [address] Performed By: #### 5 7021-8 ####[facility] LABIA [id number] [place] [address] Monocytes/100 WBC (Bld) 3.4 % Normal [facility] Comment on above: Order Comment: Speci men Type: BLOOD SPECIMENOrdering Facility: [facility] Address: [address] [place] [address] Performed By: #### 5 7021-8 ####[facility] LABCLIA [id number] [place] [address] Neutrophils (Bld) [#/Vol] 10.32 10*3/uL High 1.45-7.50 [facility] Comment on above: Order Comment: Speci men Type: BLOOD SPECIMENOrdering Facility: [facility] Address: [address] [place] [address] Performed By: #### 5 7021-8 ####[facility] LABCLIA [id number] [place] [address] Neutrophils/100 WBC (Bld) 90.3 % Normal [facility] Comment on above: Order Comment: Speci men Type: BLOOD SPECIMENOrdering Facility: [facility] Address: [address] [place] [address] Performed By: #### 5 7021-8 ####[facility] LABCLIA [id number] [place] [address] Nucleated RBC (Bld) [#/Vol] 10*3/uL Normal <0.01 [facility] Comment on above: Order Comment: Speci men Type: BLOOD SPECIMENOrdering Facility: [facility] Address: [address] [place] [address] Performed By: #### 5 7021-8 ####[facility] LABCLIA [id number] [place] [address] Nucleated RBC/100 WBC (Bld) [Ratio] 0.0 /100 WBC Normal [facility] Comment on above: Order Comment: Speci men Type: BLOOD SPECIMENOrdering Facility: [facility] Address: [address] [place] [address] Performed By: #### 5 7021-8 ####[facility] LABCLIA [id number] [place] [address] Platelet mean volume (Bld) [Entitic vol] 9.5 fL Normal 9.0-12.7 [facility] Comment on above: Order Comment: Speci men Type: BLOOD SPECIMENOrdering Facility: [facility] Address: [address] [place] [address] Performed By: #### 5 7021-8 ####[facility] LABCLIA [id number] [place] [address] Platelets (Bld) [#/Vol] 241 10*3/uL Normal 150-400 [facility] Comment on above: Order Comment: Speci men Type: BLOOD SPECIMENOrdering Facility: [facility] Address: [address] [place] [address] Performed By: #### 5 7021-8 ####[facility] LABIA [id number] [place] [address] RBC (Bld) [#/Vol] 3.50 10*6/uL Low 3.90-5.20 [facility] Comment on above: Order Comment: Speci men Type: BLOOD SPECIMENOrdering Facility: [facility] Address: [address] [place] [address] Performed By: #### 5 7021-8 ####[facility] LABIA [id number] [place] [address] WBC (Bld) [#/Vol] 11.43 10*3/uL High 3.70-11.00 [facility] Comment on above: Order Comment: Speci men Type: BLOOD SPECIMENOrdering Facility: [facility] Address: [address] [place] [address] Performed By: #### 5 7021-8 ####[facility] LABIA [id number] [place] [address] CNOVSPon 02-07-2024 CNOVSP Normal [facility] metabolic 2000 panelon 02-07-2024 Albumin [Mass/Vol] 4.4 g/dL 3.9 - 4.9 g/dL [facility] ALP [Catalytic activity/Vol] 93 U/L 34 - 123 U/L [facility] ALT [Catalytic activity/Vol] 16 U/L 7 - 38 U/L [facility] Anion gap [Moles/Vol] 11 mmol/L 8 - 15 mmol/L [facility] AST [Catalytic activity/Vol] 14 U/L 13 - 35 U/L [facility] Bilirubin [Mass/Vol] 0.3 mg/dL 0.2 - 1 .3 mg/dL [facility] Calcium [Mass/Vol] 9.6 mg/dL 8.5 - 10. 2 mg/dL [facility] Chloride [Moles/Vol] 94 mmol/L Low 98 - 10 7 mmol/L [facility] CO2 [Moles/Vol] 28 mmol/L 22 - 30 mmol/L [facility] Creatinine [Mass/Vol] 0.57 mg/dL Low 0.58 - 0.96 mg/dL [facility] GFR/1.73 sq M.predicted among non-blacks MDRD (S/P/Bld) [Vol rate/Area] 104 mL/min/{1.73_m2} - PINF [facility] Comment on above: Estimated Glomerular Filtration Rate (eGFR) is calculated using the 2020 CKD-EPI creatinine equation. This equation utilizes serum creatinine, sex, and age as parameters. The creatinine assay has traceable calibration to isotope dilution-mass spectrometry. Refer to KDIGO guidelines for clinical interpretation. In patients with unstable renal function, e.g. those with acute kidney injury, the eGFR may not accurately reflect actual GFR. Glucose [Mass/Vol] 144 mg/dL High 74 - 99 mg/dL [facility] Comment on above: The [place] Diabete s Association (ADA) provides guidance for cutoff values for fasting glucose and random glucose. The ADA defines fasting as no caloric intake for at least 8 hours. Fasting plasma glucose results between 100 to 125 mg/dL indicate increased risk for diabetes (prediabetes). Fasting plasma glucose results greater than or equal to 126 mg/dL meet the criteria for diagnosis of diabetes. In the absence of unequivocal hyperglycemia, results should be confirmed by repeat testing. In a patient with classic symptoms of hyperglycemia or hyperglycemic crisis, random plasma glucose results greater than or equal to 200 mg/dL meet the criteria for diagnosis of diabetes. Reference: Standards of Medical Care in Diabetes 2016, [place] Diabetes Association. Diabetes Care. 2016.39(Suppl 1). Interpretation and review of laboratory results Abnormal [facility] Potassium [Moles/Vol] 4.4 mmol/L 3.7 - 5.1 mmol/L [facility] Protein [Mass/Vol] 6.7 g/dL 6.3 - 8.0 g/dL [facility] Sodium [Moles/Vol] 133 mmol/L Low 136 - 144 mmol/L [facility] Urea nitrogen [Mass/Vol] 26 mg/dL High 7 - 21 mg/dL [facility] Albumin [Mass/Vol] 4.4 g/dL Normal 3.9-4.9 [facility] Comment on above: Order Comment: Speci men Type: BLOOD SPECIMENOrdering Facility: [facility] Address: [address] [place] [address] Performed By: #### 2 4323-8 ####[facility] LABCLIA [id number] [place] [address] ALP [Catalytic activity/Vol] 93 U/L Normal 34-123 [facility] Comment on above: Order Comment: Speci men Type: BLOOD SPECIMENOrdering Facility: [facility] Address: [address] [place] [address] Performed By: #### 2 4323-8 ####[facility] LABCLIA [id number] [place] [address] ALT [Catalytic activity/Vol] 16 U/L Normal 7-38 [facility] Comment on above: Order Comment: Speci men Type: BLOOD SPECIMENOrdering Facility: [facility] Address: [address] [place] [address] Performed By: #### 2 4323-8 ####[facility] LABCLIA [id number] [place] [address] Anion gap [Moles/Vol] 11 mmol/L Normal 8-15 [facility] Comment on above: Order Comment: Speci men Type: BLOOD SPECIMENOrdering Facility: [facility] Address: [address] [place] [address] Performed By: #### 2 4323-8 ####[facility] LABCLIA [id number] [place] [address] AST [Catalytic activity/Vol] 14 U/L Normal 13-35 [facility] Comment on above: Order Comment: Speci men Type: BLOOD SPECIMENOrdering Facility: [facility] Address: [address] [place] [address] Performed By: #### 2 4323-8 ####[facility] LABCLIA [id number] [place] [address] Bilirubin [Mass/Vol] 0.3 mg/dL Normal 0.2-1.3 [facility] Comment on above: Order Comment: Speci men Type: BLOOD SPECIMENOrdering Facility: [facility] Address: [address] [place] [address] Performed By: #### 2 4323-8 ####[facility] LABCLIA [id number] [place] [address] Calcium [Mass/Vol] 9.6 mg/dL Normal 8.5-10.2 [facility] Comment on above: Order Comment: Speci men Type: BLOOD SPECIMENOrdering Facility: [facility] Address: [address] [place] [address] Performed By: #### 2 4323-8 ####[facility] LABCLIA [id number] [place] [address] Chloride [Moles/Vol] 94 mmol/L Low 98-107 [facility] Comment on above: Order Comment: Speci men Type: BLOOD SPECIMENOrdering Facility: [facility] Address: [address] [place] [address] Performed By: #### 2 4323-8 ####[facility] LABCLIA [id number] [place] [address] CO2 [Moles/Vol] 28 mmol/L Normal 22-30 [facility] Comment on above: Order Comment: Speci men Type: BLOOD SPECIMENOrdering Facility: [facility] Address: [address] [place] [address] Performed By: #### 2 4323-8 ####[facility] LABCLIA [id number] [place] [address] Creatinine [Mass/Vol] 0.57 mg/dL Low 0.58-0.96 [facility] Comment on above: Order Comment: Speci men Type: BLOOD SPECIMENOrdering Facility: [facility] Address: [address] [place], [place] [address] Performed By: #### 2 4323-8 ####[facility] LABCLIA [id number] [place] [address] Creatinine and Glomerular filtration rate.predicted panel (S/P/Bld) 104 mL/min/1.73m??? Normal >=60 [facility] Comment on above: Order Comment: Albaestella epperson Type: BLOOD SPECIMENOrdering Facility: [facility] Address: [address] [place] [address] Result Comment: Audrey mated Glomerular Filtration Rate (eGFR) is calculated using the 2020 CKD-EPI creatinine equation. This equation utilizes serum creatinine, sex, and age as parameters. The creatinine assay has traceable calibration to isotope dilution-mass spectrometry. Refer to KDIGO guidelines for clinical interpretation. In patients with unstable renal function, e.g. those with acute kidney injury, the eGFR may not accurately reflect actual GFR. Performed By: #### 2 4323-8 ####[facility] LABIA [id number] [place] [address] Glucose [Mass/Vol] 144 mg/dL High 74-99 [facility] Comment on above: Order Comment: Speci zhou Type: BLOOD SPECIMENOrdering Facility: [facility] Address: [address] [place] [address] Result Comment: The [place] Diabetes Association (ADA) provides guidance for cutoff values for fasting glucose and random glucose. The ADA defines fasting as no caloric intake for at least 8 hours. Fasting plasma glucose results between 100 to 125 mg/dL indicate increased risk for diabetes (prediabetes).Fasting plasma glucose results greater than or equal to 126 mg/dL meet the criteria for diagnosis of diabetes. In the absence of unequivocal hyperglycemia, results should be confirmed by repeat testing. In a patient with classic symptoms of hyperglycemia or hyperglycemic crisis, random plasma glucose results greater than or equal to 200 mg/dL meet the criteria for diagnosis of diabetes.Reference: Standards of Medical Care in Diabetes 2016, [place] Diabetes Association. Diabetes Care. 2016.39(Suppl 1). Performed By: #### 2 4323-8 ####[facility] LABCLIA [id number] [place] [address] Potassium [Moles/Vol] 4.4 mmol/L Normal 3.7-5.1 [facility] Comment on above: Order Comment: Speci men Type: BLOOD SPECIMENOrdering Facility: [facility] Address: [address] [place] [address] Performed By: #### 2 4323-8 ####[facility] LABCLIA [id number] [place] [address] Protein [Mass/Vol] 6.7 g/dL Normal 6.3-8.0 [facility] Comment on above: Order Comment: Speci men Type: BLOOD SPECIMENOrdering Facility: [facility] Address: [address] [place] [address] Performed By: #### 2 4323-8 ####[facility] LABCLIA [id number] [place] [address] Sodium [Moles/Vol] 133 mmol/L Low 136-144 [facility] Comment on above: Order Comment: Speci men Type: BLOOD SPECIMENOrdering Facility: [facility] Address: [address] [place] [address] Performed By: #### 2 4323-8 ####[facility] LABCLIA [id number] [place] [address] Urea nitrogen [Mass/Vol] 26 mg/dL High 7-21 [facility] Comment on above: Order Comment: Speci men Type: BLOOD SPECIMENOrdering Facility: [facility] Address: [address] [place] [address] Performed By: #### 2 4323-8 ####[facility] LABCLIA [id number] [place] [address] [facility]is [facility]-[place] 02-07-20 24 Cortisol [Mass/Vol] 2.5 ug/dL Low 4.8-19.5 [facility] Comment on above: Order Comment: Speci men Type: BLOOD SPECIMENOrdering Facility: [facility] Address: [address] [place] [address] Result Comment: Prov ided reference range is from 6-10 AM sample collection time.Cortisol Reference Range: 6-10 AM = 4.8-19.5 ug/dL, 4-8 PM = 2.5-11.9 ug/dL Performed By: #### 3 016-3, 2143-6 ####[facility] LABCLIA [id number] [address] [facility] HbA1c (Bld)on 02-07-2024 Average glucose Estimated from glycated hemoglobin (Bld) [Mass/Vol] 91 mg/dL Normal [facility] Comment on above: Order Comment: Sheryl epperson Type: BLOOD SPECIMENOrdering Facility: [facility] Address: [address] [place] [address] Result Comment: eAG: (Estimated average glucose) is a calculated value from HgbA1c and is warehouse representative of the average blood glucose level in the last 2-3 month period. Performed By: #### 5 5454-3 ####[facility] LABIA [id number] [address] HbA1c (Bld) [Mass fraction] 4.8 % Normal 4.3-5.6 [facility] Comment on above: Order Comment: Sheryl epperson Type: BLOOD SPECIMENOrdering Facility: [facility] Address: [address] [place] [address] Result Comment: [place] Diabetes Association guidelines indicate that patients with HgbA1c in the range 5.7-6.4% are at increased risk for development of diabetes, and intervention by lifestyle modification may be beneficial. HgbA1c greater or equal to 6.5% is considered diagnostic of diabetes. Performed By: #### 5 5454-3 ####[facility] LABIA [id number] [address] [place] TSH SerPl-aCncon 02-07-2024 TSH Qn 0.696 m[IU]/L Normal 0.270-4.200 [facility] Comment on above: Order Comment: Sheryl epperson Type: BLOOD SPECIMENOrdering Facility: [facility] Address: [address] [place] [address] Performed By: #### 3 016-3, 2143-6 ####[facility] LABCLIA [id number] [id number] [address] [place] CNPNon 02-06-2024 CNPN Normal [facility] CNPNon 02-02-2024 CNPN Normal [facility] CNPNon 02-01-2024 CNPN Normal [facility] CNPNon 01-31-2024 CNPN Normal [facility] CNOVSPon 01-12-2024 CNOVSP Normal [facility] GLUCOSE, BLOOD (POC)on 01-11 Glucose [Mass/Vol] 96 mg/dL 74 - 99 mg/dL [facility] Comment on above: Location:[facility], [address] [place] [address] , [place], [place], [address] The Accu-Chek Inform II glucose meter has not been approved for testing on patients receiving intensive medical intervention or therapy and results from this point of care glucose test should not be used for patient management decisions in these cases. Inaccurate results may also occur from other interfering factors, such as N-acetylcysteine (blood concentrations of greater than 5mg/dL), galactose, extremes of hematocrit (<10 or >65), or high doses of ascorbic acid (vitamin C) greater than 3mg/dL. Consider alternate testing mechanisms (e.g. core lab, blood gas instrument) in the above situations. [facility] NM PET/CT SKULL-THIGH SUBQon 01-12-2024 NM PET/CT SKULL-THIGH SUBQ Normal [facility] CBC W Auto Differential pane l (Bld)on 12-27-2023 Basophils (Bld) [#/Vol] 0.03 10*3/uL Normal <0.11 [facility] Comment on above: Order Comment: Speci men Type: BLOOD SPECIMENOrdering Facility: [facility] Address: [address] [place] [address] Performed By: #### 5 7021-8 ####[facility] LABCLIA [id number] [place] [address] Basophils/100 WBC (Bld) 0.3 % Normal [facility] Comment on above: Order Comment: Speci men Type: BLOOD SPECIMENOrdering Facility: [facility] Address: [address] [place] [address] Performed By: #### 5 7021-8 ####[facility] LABCLIA [id number] [place] [address] Differential cell count method Nom (Bld) Auto Normal [facility] Comment on above: Order Comment: Speci men Type: BLOOD SPECIMENOrdering Facility: [facility] Address: [address] [place] [address] Performed By: #### 5 7021-8 ####[facility] LABCLIA [id number] [place] [address] Eosinophils (Bld) [#/Vol] 0.06 10*3/uL Normal <0.46 [facility] Comment on above: Order Comment: Speci men Type: BLOOD SPECIMENOrdering Facility: [facility] Address: [address] [place] [address] Performed By: #### 5 7021-8 ####[facility] LABCLIA [id number] [place] [address] Eosinophils/100 WBC (Bld) 0.6 % Normal [facility] Comment on above: Order Comment: Speci men Type: BLOOD SPECIMENOrdering Facility: [facility] Address: [address] [place] [address] Performed By: #### 5 7021-8 ####[facility] LABCLIA [id number] [place] [address] Erythrocyte distribution width (RBC) [Ratio] 15.7 % High 11.5-15.0 [facility] Comment on above: Order Comment: Speci men Type: BLOOD SPECIMENOrdering Facility: [facility] Address: [address] [place] [address] Performed By: #### 5 7021-8 ####[facility] LABCLIA [id number] [place] [address] Hematocrit (Bld) [Volume fraction] 33.4 % Low 36.0-46.0 [facility] Comment on above: Order Comment: Speci men Type: BLOOD SPECIMENOrdering Facility: [facility] Address: [address] [place] [address] Performed By: #### 5 7021-8 ####[facility] LABCLIA [id number] [place] [address] Hemoglobin (Bld) [Mass/Vol] 11.0 g/dL Low 11.5-15.5 [facility] Comment on above: Order Comment: Speci men Type: BLOOD SPECIMENOrdering Facility: [facility] Address: [address] [place] [address] Performed By: #### 5 7021-8 ####[facility] LABCLIA [id number] [place] [address] Immature granulocytes (Bld) [#/Vol] 0.12 10*3/uL High <0.10 [facility] Comment on above: Order Comment: Speci men Type: BLOOD SPECIMENOrdering Facility: [facility] Address: [address] [place] [address] Performed By: #### 5 7021-8 ####[facility] LABCLIA [id number] [place] [address] Immature granulocytes/100 WBC (Bld) 1.2 % Normal [facility] Comment on above: Order Comment: Speci men Type: BLOOD SPECIMENOrdering Facility: [facility] Address: [address] [place] [address] Performed By: #### 5 7021-8 ####[facility] LABCLIA [id number] [place] [address] Lymphocytes (Bld) [#/Vol] 1.32 10*3/uL Normal 1.00-4.00 [facility] Comment on above: Order Comment: Speci men Type: BLOOD SPECIMENOrdering Facility: [facility] Address: [address] [place] [address] Performed By: #### 5 7021-8 ####[facility] LABCLIA [id number] [place] [address] Lymphocytes/100 WBC (Bld) 13.2 % Normal [facility] Comment on above: Order Comment: Speci men Type: BLOOD SPECIMENOrdering Facility: [facility] Address: [address] [place] [address] Performed By: #### 5 7021-8 ####[facility] LABCLIA [id number] [place] [address] MCH (RBC) [Entitic mass] 38.1 pg High 26.0-34.0 [facility] Comment on above: Order Comment: Speci men Type: BLOOD SPECIMENOrdering Facility: [facility] Address: [address] [place] [address] Performed By: #### 5 7021-8 ####[facility] LABIA [id number] [place] [address] MCHC (RBC) [Mass/Vol] 32.9 g/dL Normal 30.5-36.0 [facility] Comment on above: Order Comment: Speci men Type: BLOOD SPECIMENOrdering Facility: [facility] Address: [address] [place] [address] Performed By: #### 5 7021-8 ####[facility] LABIA [id number] [place] [address] MCV (RBC) [Entitic vol] 115.6 fL High 80.0-100.0 [facility] Comment on above: Order Comment: Speci men Type: BLOOD SPECIMENOrdering Facility: [facility] Address: [address] [place] [address] Performed By: #### 5 7021-8 ####[facility] LABIA [id number] [place] [address] Monocytes (Bld) [#/Vol] 0.84 10*3/uL Normal <0.87 [facility] Comment on above: Order Comment: Speci men Type: BLOOD SPECIMENOrdering Facility: [facility] Address: [address] [place] [address] Performed By: #### 5 7021-8 ####[facility] LABCLIA [id number] [place] [address] Monocytes/100 WBC (Bld) 8.4 % Normal [facility] Comment on above: Order Comment: Speci men Type: BLOOD SPECIMENOrdering Facility: [facility] Address: [address] [place] [address] Performed By: #### 5 7021-8 ####[facility] LABCLIA [id number] [place] [address] Neutrophils (Bld) [#/Vol] 7.60 10*3/uL High 1.45-7.50 [facility] Comment on above: Order Comment: Speci men Type: BLOOD SPECIMENOrdering Facility: [facility] Address: [address] [place] [address] Performed By: #### 5 7021-8 ####[facility] LABCLIA [id number] [place] [address] Neutrophils/100 WBC (Bld) 76.3 % Normal [facility] Comment on above: Order Comment: Speci men Type: BLOOD SPECIMENOrdering Facility: [facility] Address: [address] [place] [address] Performed By: #### 5 7021-8 ####[facility] LABCLIA [id number] [place] [address] Nucleated RBC (Bld) [#/Vol] 10*3/uL Normal <0.01 [facility] Comment on above: Order Comment: Speci men Type: BLOOD SPECIMENOrdering Facility: [facility] Address: [address] [place] [address] Performed By: #### 5 7021-8 ####[facility] LABCLIA [id number] [place] [address] Nucleated RBC/100 WBC (Bld) [Ratio] 0.0 /100 WBC Normal [facility] Comment on above: Order Comment: Speci men Type: BLOOD SPECIMENOrdering Facility: [facility] Address: [address] [place] [address] Performed By: #### 5 7021-8 ####[facility] LABCLIA [id number] [place] [address] Platelet mean volume (Bld) [Entitic vol] 8.7 fL Low 9.0-12.7 [facility] Comment on above: Order Comment: Speci men Type: BLOOD SPECIMENOrdering Facility: [facility] Address: [address] [place] [address] Performed By: #### 5 7021-8 ####[facility] LABIA [id number] [place] [address] Platelets (Bld) [#/Vol] 212 10*3/uL Normal 150-400 [facility] Comment on above: Order Comment: Speci men Type: BLOOD SPECIMENOrdering Facility: [facility] Address: [address] [place] [address] Performed By: #### 5 7021-8 ####[facility] LABCLIA [id number] [place] [address] RBC (Bld) [#/Vol] 2.89 10*6/uL Low 3.90-5.20 [facility] Comment on above: Order Comment: Speci men Type: BLOOD SPECIMENOrdering Facility: [facility] Address: [address] [place] [address] Performed By: #### 5 7021-8 ####[facility] LABIA [id number] [place] [address] WBC (Bld) [#/Vol] 9.97 10*3/uL Normal 3.70-11.00 [facility] Comment on above: Order Comment: Speci men Type: BLOOD SPECIMENOrdering Facility: [facility] Address: [address] [place] [address] Performed By: #### 5 7021-8 ####[facility] LABCLIA [id number] [place] [address] CNOVSPon 12-27-2023 CNOVSP Normal [facility] CNPNon 12-27-2023 CNPN Normal [facility] metabolic 2000 panelon 12-27-2023 Albumin [Mass/Vol] 3.0 g/dL Low 3.9-4.9 [facility] Comment on above: Order Comment: Speci men Type: BLOOD SPECIMENOrdering Facility: [facility] Address: [address] [place] [address] Performed By: #### 2 4323-8 ####[facility] LABCLIA [id number] [place] [address] ALP [Catalytic activity/Vol] 217 U/L High 34-123 [facility] Comment on above: Order Comment: Speci men Type: BLOOD SPECIMENOrdering Facility: [facility] Address: [address] [place] [address] Performed By: #### 2 4323-8 ####[facility] LABCLIA [id number] [place] [address] ALT [Catalytic activity/Vol] 13 U/L Normal 7-38 [facility] Comment on above: Order Comment: Speci men Type: BLOOD SPECIMENOrdering Facility: [facility] Address: [address] [place] [address] Performed By: #### 2 4323-8 ####[facility] LABCLIA [id number] [place] [address] Anion gap [Moles/Vol] 9 mmol/L Normal 8-15 [facility] Comment on above: Order Comment: Speci men Type: BLOOD SPECIMENOrdering Facility: [facility] Address: [address] [place] [address] Performed By: #### 2 4323-8 ####[facility] LABCLIA [id number] [place] [address] AST [Catalytic activity/Vol] 18 U/L Normal 13-35 [facility] Comment on above: Order Comment: Speci men Type: BLOOD SPECIMENOrdering Facility: [facility] Address: [address] [place] [address] Performed By: #### 2 4323-8 ####[facility] LABCLIA [id number] [place] [address] Bilirubin [Mass/Vol] 0.4 mg/dL Normal 0.2-1.3 [facility] Comment on above: Order Comment: Speci men Type: BLOOD SPECIMENOrdering Facility: [facility] Address: [address] [place] [address] Performed By: #### 2 4323-8 ####[facility] LABCLIA [id number] [place] [address] Calcium [Mass/Vol] 8.5 mg/dL Normal 8.5-10.2 [facility] Comment on above: Order Comment: Speci men Type: BLOOD SPECIMENOrdering Facility: [facility] Address: [address] [place] [address] Performed By: #### 2 4323-8 ####[facility] LABCLIA [id number] [place] [address] Chloride [Moles/Vol] 100 mmol/L Normal 98-107 [facility] Comment on above: Order Comment: Speci men Type: BLOOD SPECIMENOrdering Facility: [facility] Address: [address] [place], [place] [address] Performed By: #### 2 4323-8 ####[facility] LABCLIA [id number] [place] [address] CO2 [Moles/Vol] 28 mmol/L Normal 22-30 [facility] Comment on above: Order Comment: Speci men Type: BLOOD SPECIMENOrdering Facility: [facility] Address: [address] [id number] Performed By: #### 2 4323-8 ####[facility] LABCLIA [id number] [place] [address] Creatinine [Mass/Vol] 0.66 mg/dL Normal 0.58-0.96 [facility] Comment on above: Order Comment: Speci men Type: BLOOD SPECIMENOrdering Facility: [facility] Address: [address] [place] [address] Performed By: #### 2 4323-8 ####[facility] LABCLIA [id number] [place] [address] Creatinine and Glomerular filtration rate.predicted panel (S/P/Bld) 101 mL/min/1.73m??? Normal >=60 [facility] Comment on above: Order Comment: Speci men Type: BLOOD SPECIMENOrdering Facility: [facility] Address: [address] [place] [address] Result Comment: Audrey mated Glomerular Filtration Rate (eGFR) is calculated using the 2020 CKD-EPI creatinine equation. This equation utilizes serum creatinine, sex, and age as parameters. The creatinine assay has traceable calibration to isotope dilution-mass spectrometry. Refer to KDIGO guidelines for clinical interpretation. In patients with unstable renal function, e.g. those with acute kidney injury, the eGFR may not accurately reflect actual GFR. Performed By: #### 2 4323-8 ####[facility] LABCLIA [id number] [place] [address] Glucose [Mass/Vol] 96 mg/dL Normal 74-99 [facility] Comment on above: Order Comment: Speci men Type: BLOOD SPECIMENOrdering Facility: [facility] Address: [address] [place] [address] Result Comment: The [place] Diabetes Association (ADA) provides guidance for cutoff values for fasting glucose and random glucose. The ADA defines fasting as no caloric intake for at least 8 hours. Fasting plasma glucose results between 100 to 125 mg/dL indicate increased risk for diabetes (prediabetes).Fasting plasma glucose results greater than or equal to 126 mg/dL meet the criteria for diagnosis of diabetes. In the absence of unequivocal hyperglycemia, results should be confirmed by repeat testing. In a patient with classic symptoms of hyperglycemia or hyperglycemic crisis, random plasma glucose results greater than or equal to 200 mg/dL meet the criteria for diagnosis of diabetes.Reference: Standards of Medical Care in Diabetes 2016, [place] Diabetes Association. Diabetes Care. 2016.39(Suppl 1). Performed By: #### 2 4323-8 ####[facility] LABCLIA [id number] [place] [address] Potassium [Moles/Vol] 3.2 mmol/L Low 3.7-5.1 [facility] Comment on above: Order Comment: Speci men Type: BLOOD SPECIMENOrdering Facility: [facility] Address: [address] [place] [address] Performed By: #### 2 4323-8 ####[facility] LABCLIA [id number] [place] [address] Protein [Mass/Vol] 5.7 g/dL Low 6.3-8.0 [facility] Comment on above: Order Comment: Speci men Type: BLOOD SPECIMENOrdering Facility: [facility] Address: [address] [place] [address] Performed By: #### 2 4323-8 ####[facility] LABCLIA [id number] [place] [address] Sodium [Moles/Vol] 137 mmol/L Normal 136-144 [facility] Comment on above: Order Comment: Speci men Type: BLOOD SPECIMENOrdering Facility: [facility] Address: [address] [place] [address] Performed By: #### 2 4323-8 ####[facility] LABCLIA [id number] [place] [address] Urea nitrogen [Mass/Vol] 14 mg/dL Normal 7-21 [facility] Comment on above: Order Comment: Speci men Type: BLOOD SPECIMENOrdering Facility: [facility] Address: [address] [place] [address] Performed By: #### 2 4323-8 ####[facility] LABCLIA [id number] [place] [address] Meghana Jones 12-27-19 Cortisol [Mass/Vol] 16.4 ug/dL Normal 4.8-19.5 [facility] Comment on above: Order Comment: Speci men Type: BLOOD SPECIMENOrdering Facility: [facility] Address: [address] [place] [address] Result Comment: Prov ided reference range is from 6-10 AM sample collection time.Cortisol Reference Range: 6-10 AM = 4.8-19.5 ug/dL, 4-8 PM = 2.5-11.9 ug/dL Performed By: #### 3 016-3, 2143-6 ####[facility] LABCLIA [id number] [place] [address] [place] HbA1c (Bld)on 12-27-2023 Average glucose Estimated from glycated hemoglobin (Bld) [Mass/Vol] 91 mg/dL Normal [facility] Comment on above: Order Comment: Speci men Type: BLOOD SPECIMENOrdering Facility: [facility] Address: [address] [place] [address] Result Comment: eAG: (Estimated average glucose) is a calculated value from HgbA1c and is warehouse representative of the average blood glucose level in the last 2-3 month period. Performed By: #### 5 5454-3 ####[facility] LABCLIA [id number] [place] [address] [place] HbA1c (Bld) [Mass fraction] 4.8 % Normal 4.3-5.6 [facility] Comment on above: Order Comment: Speci men Type: BLOOD SPECIMENOrdering Facility: [facility] Address: [address] [place] [address] Result Comment: [place] Diabetes Association guidelines indicate that patients with HgbA1c in the range 5.7-6.4% are at increased risk for development of diabetes, and intervention by lifestyle modification may be beneficial. HgbA1c greater or equal to 6.5% is considered diagnostic of diabetes. Performed By: #### 5 5454-3 ####[facility] LABCLIA [id number] [place] [address] [place] TSH SerPl-aCncon 12-27-2023 TSH Qn 2.220 m[IU]/L Normal 0.270-4.200 [facility] Comment on above: Order Comment: Speci men Type: BLOOD SPECIMENOrdering Facility: [facility] Address: [address] [place] [address] Performed By: #### 3 016-3, 2143-6 ####[facility] LABIA [id number] [place] [address] [place] CNPNon 12-22-2023 CNPN Normal [facility] T4 Free SerPl-mCncon 024 Free T4 [Mass/Vol] 1.1 ng/dL Normal 0.9-1.7 [facility] Comment on above: Order Comment: Speci men Type: BLOOD SPECIMENOrdering Facility: [facility] Address: [address] [place] [address] Performed By: #### 3 016-3, 3024-7 ####[facility] LABCLIA [id number] [place] [address] [place] TSH SerPl-aCncon 12-06-2023 TSH Qn 3.210 m[IU]/L Normal 0.270-4.200 [facility] Comment on above: Order Comment: Speci men Type: BLOOD SPECIMENOrdering Facility: [facility] Address: [address] [place] [address] Performed By: #### 3 016-3, 3024-7 ####[facility] LABCLIA [id number] [place] [address] [place] CBC W Auto Differential pane l (Bld)on 11-15-2023 Basophils (Bld) [#/Vol] 0.04 10*3/uL Normal <0.11 [facility] Comment on above: Order Comment: Speci men Type: BLOOD SPECIMENOrdering Facility: [facility] Address: [address] [place] [address] Performed By: #### 5 7021-8 ####[facility] LABCLIA [id number] [place] [address] Basophils/100 WBC (Bld) 0.4 % Normal [facility] Comment on above: Order Comment: Speci men Type: BLOOD SPECIMENOrdering Facility: [facility] Address: [address] [place] [address] Performed By: #### 5 7021-8 ####[facility] LABCLIA [id number] [place] [address] Differential cell count method Nom (Bld) Auto Normal [facility] Comment on above: Order Comment: Speci men Type: BLOOD SPECIMENOrdering Facility: [facility] Address: [address] [place] [address] Performed By: #### 5 7021-8 ####[facility] LABCLIA [id number] [place] [address] Eosinophils (Bld) [#/Vol] 0.15 10*3/uL Normal <0.46 [facility] Comment on above: Order Comment: Speci men Type: BLOOD SPECIMENOrdering Facility: [facility] Address: [address] [place] [address] Performed By: #### 5 7021-8 ####[facility] LABCLIA [id number] [place] [address] Eosinophils/100 WBC (Bld) 1.5 % Normal [facility] Comment on above: Order Comment: Speci men Type: BLOOD SPECIMENOrdering Facility: [facility] Address: [address] [place] [address] Performed By: #### 5 7021-8 ####[facility] LABCLIA [id number] [place] [address] Erythrocyte distribution width (RBC) [Ratio] 13.2 % Normal 11.5-15.0 [facility] Comment on above: Order Comment: Speci men Type: BLOOD SPECIMENOrdering Facility: [facility] Address: [address] [place] [address] Performed By: #### 5 7021-8 ####[facility] LABCLIA [id number] [place] [address] Hematocrit (Bld) [Volume fraction] 34.0 % Low 36.0-46.0 [facility] Comment on above: Order Comment: Speci men Type: BLOOD SPECIMENOrdering Facility: [facility] Address: [address] [place] [address] Performed By: #### 5 7021-8 ####[facility] LABCLIA [id number] [place] [address] Hemoglobin (Bld) [Mass/Vol] 11.7 g/dL Normal 11.5-15.5 [facility] Comment on above: Order Comment: Speci men Type: BLOOD SPECIMENOrdering Facility: [facility] Address: [address] [place] [address] Performed By: #### 5 7021-8 ####[facility] LABCLIA [id number] [place] [address] Immature granulocytes (Bld) [#/Vol] 0.09 10*3/uL Normal <0.10 [facility] Comment on above: Order Comment: Speci men Type: BLOOD SPECIMENOrdering Facility: [facility] Address: [address] [place] [address] Performed By: #### 5 7021-8 ####[facility] LABCLIA [id number] [place] [address] Immature granulocytes/100 WBC (Bld) 0.9 % Normal [facility] Comment on above: Order Comment: Speci men Type: BLOOD SPECIMENOrdering Facility: [facility] Address: [address] [place] [address] Performed By: #### 5 7021-8 ####[facility] LABCLIA [id number] [place] [address] Lymphocytes (Bld) [#/Vol] 1.48 10*3/uL Normal 1.00-4.00 [facility] Comment on above: Order Comment: Speci men Type: BLOOD SPECIMENOrdering Facility: [facility] Address: [address] [place] [address] Performed By: #### 5 7021-8 ####[facility] LABCLIA [id number] [place] [address] Lymphocytes/100 WBC (Bld) 14.5 % Normal [facility] Comment on above: Order Comment: Speci men Type: BLOOD SPECIMENOrdering Facility: [facility] Address: [address] [place] [address] Performed By: #### 5 7021-8 ####[facility] LABCLIA [id number] [place] [address] MCH (RBC) [Entitic mass] 38.4 pg High 26.0-34.0 [facility] Comment on above: Order Comment: Speci men Type: BLOOD SPECIMENOrdering Facility: [facility] Address: [address] [place] [address] Performed By: #### 5 7021-8 ####[facility] LABCLIA [id number] [place] [address] MCHC (RBC) [Mass/Vol] 34.4 g/dL Normal 30.5-36.0 [facility] Comment on above: Order Comment: Speci men Type: BLOOD SPECIMENOrdering Facility: [facility] Address: [address] [place] [address] Performed By: #### 5 7021-8 ####[facility] LABCLIA [id number] [place] [address] MCV (RBC) [Entitic vol] 111.5 fL High 80.0-100.0 [facility] Comment on above: Order Comment: Speci men Type: BLOOD SPECIMENOrdering Facility: [facility] Address: [address] [place] [address] Performed By: #### 5 7021-8 ####[facility] LABCLIA [id number] [place] [address] Monocytes (Bld) [#/Vol] 1.06 10*3/uL High <0.87 [facility] Comment on above: Order Comment: Speci men Type: BLOOD SPECIMENOrdering Facility: [facility] Address: [address] [place] [address] Performed By: #### 5 7021-8 ####[facility] LABCLIA [id number] [place] [address] Monocytes/100 WBC (Bld) 10.4 % Normal [facility] Comment on above: Order Comment: Speci men Type: BLOOD SPECIMENOrdering Facility: [facility] Address: [address] [place] [address] Performed By: #### 5 7021-8 ####[facility] LABCLIA [id number] [place] [address] Neutrophils (Bld) [#/Vol] 7.41 10*3/uL Normal 1.45-7.50 [facility] Comment on above: Order Comment: Speci men Type: BLOOD SPECIMENOrdering Facility: [facility] Address: [address] [place] [address] Performed By: #### 5 7021-8 ####[facility] LABIA [id number] [place] [address] Neutrophils/100 WBC (Bld) 72.3 % Normal [facility] Comment on above: Order Comment: Speci men Type: BLOOD SPECIMENOrdering Facility: [facility] Address: [address] [place] [address] Performed By: #### 5 7021-8 ####[facility] LABCLIA [id number] [place] [address] Nucleated RBC (Bld) [#/Vol] 10*3/uL Normal <0.01 [facility] Comment on above: Order Comment: Speci men Type: BLOOD SPECIMENOrdering Facility: [facility] Address: [address] [place] [address] Performed By: #### 5 7021-8 ####[facility] LABCLIA [id number] [place] [address] Nucleated RBC/100 WBC (Bld) [Ratio] 0.0 /100 WBC Normal [facility] Comment on above: Order Comment: Speci men Type: BLOOD SPECIMENOrdering Facility: [facility] Address: [address] [place] [address] Performed By: #### 5 7021-8 ####[facility] LABCLIA [id number] [place] [address] Platelet mean volume (Bld) [Entitic vol] 9.8 fL Normal 9.0-12.7 [facility] Comment on above: Order Comment: Speci men Type: BLOOD SPECIMENOrdering Facility: [facility] Address: [address] [place] [address] Performed By: #### 5 7021-8 ####[facility] LABCLIA [id number] [place] [address] Platelets (Bld) [#/Vol] 194 10*3/uL Normal 150-400 [facility] Comment on above: Order Comment: Speci men Type: BLOOD SPECIMENOrdering Facility: [facility] Address: [address] [place] [address] Performed By: #### 5 7021-8 ####[facility] LABCLIA [id number] [place] [address] RBC (Bld) [#/Vol] 3.05 10*6/uL Low 3.90-5.20 [facility] Comment on above: Order Comment: Speci men Type: BLOOD SPECIMENOrdering Facility: [facility] Address: [address] [place] [address] Performed By: #### 5 7021-8 ####[facility] LABCLIA [id number] [place] [address] WBC (Bld) [#/Vol] 10.23 10*3/uL Normal 3.70-11.00 [facility] Comment on above: Order Comment: Speci men Type: BLOOD SPECIMENOrdering Facility: [facility] Address: [address] [place] [address] Performed By: #### 5 7021-8 ####[facility] LABIA [id number] [place] [address] CNOVSPon 11-15-2023 CNOVSP Normal [facility] Comprehensive metabolic 2000 panelon 11-15-2023 Albumin [Mass/Vol] 3.5 g/dL Low 3.9-4.9 [facility] Comment on above: Order Comment: Speci men Type: BLOOD SPECIMENOrdering Facility: [facility] Address: [address] [place] [address] Performed By: #### 2 4323-8 ####[facility] LABCLIA [id number] [place] [address] ALP [Catalytic activity/Vol] 129 U/L High 34-123 [facility] Comment on above: Order Comment: Speci men Type: BLOOD SPECIMENOrdering Facility: [facility] Address: [address] [place] [address] Performed By: #### 2 4323-8 ####[facility] LABCLIA [id number] [place] [address] ALT [Catalytic activity/Vol] 10 U/L Normal 7-38 [facility] Comment on above: Order Comment: Speci men Type: BLOOD SPECIMENOrdering Facility: [facility] Address: [address] [id number] Performed By: #### 2 4323-8 ####[facility] LABCLIA [id number] [place] [address] Anion gap [Moles/Vol] 8 mmol/L Normal 8-15 [facility] Comment on above: Order Comment: Speci men Type: BLOOD SPECIMENOrdering Facility: [facility] Address: [address] [place] [address] Performed By: #### 2 4323-8 ####[facility] LABCLIA [id number] [place] [address] AST [Catalytic activity/Vol] 15 U/L Normal 13-35 [facility] Comment on above: Order Comment: Speci men Type: BLOOD SPECIMENOrdering Facility: [facility] Address: [address] [place] [address] Performed By: #### 2 4323-8 ####[facility] LABCLIA [id number] [place] [address] Bilirubin [Mass/Vol] 0.2 mg/dL Normal 0.2-1.3 [facility] Comment on above: Order Comment: Speci men Type: BLOOD SPECIMENOrdering Facility: [facility] Address: [address] [place] [address] Performed By: #### 2 4323-8 ####[facility] LABCLIA [id number] [place] [address] Calcium [Mass/Vol] 9.0 mg/dL Normal 8.5-10.2 [facility] Comment on above: Order Comment: Speci men Type: BLOOD SPECIMENOrdering Facility: [facility] Address: [address] [place], [place] [address] Performed By: #### 2 4323-8 ####[facility] LABCLIA [id number] [place] [address] Chloride [Moles/Vol] 103 mmol/L Normal 98-107 [facility] Comment on above: Order Comment: Speci men Type: BLOOD SPECIMENOrdering Facility: [facility] Address: [address] [place] [address] Performed By: #### 2 4323-8 ####[facility] LABCLIA [id number] [place] [address] CO2 [Moles/Vol] 28 mmol/L Normal 22-30 [facility] Comment on above: Order Comment: Speci men Type: BLOOD SPECIMENOrdering Facility: [facility] Address: [address] [place] [address] Performed By: #### 2 4323-8 ####[facility] LABCLIA [id number] [place] [address] Creatinine [Mass/Vol] 0.66 mg/dL Normal 0.58-0.96 [facility] Comment on above: Order Comment: Speci men Type: BLOOD SPECIMENOrdering Facility: [facility] Address: [address] [place] [address] Performed By: #### 2 4323-8 ####[facility] LABCLIA [id number] [place] [address] Creatinine and Glomerular filtration rate.predicted panel (S/P/Bld) 101 mL/min/1.73m??? Normal >=60 [facility] Comment on above: Order Comment: Speci men Type: BLOOD SPECIMENOrdering Facility: [facility] Address: [address] [place] [address] Result Comment: Audrey mated Glomerular Filtration Rate (eGFR) is calculated using the 2020 CKD-EPI creatinine equation. This equation utilizes serum creatinine, sex, and age as parameters. The creatinine assay has traceable calibration to isotope dilution-mass spectrometry. Refer to KDIGO guidelines for clinical interpretation. In patients with unstable renal function, e.g. those with acute kidney injury, the eGFR may not accurately reflect actual GFR. Performed By: #### 2 4323-8 ####[facility] LABCLIA [id number] [place] [address] Glucose [Mass/Vol] 78 mg/dL Normal 74-99 [facility] Comment on above: Order Comment: Speci men Type: BLOOD SPECIMENOrdering Facility: [facility] Address: [address] [place] [address] Result Comment: The [place] Diabetes Association (ADA) provides guidance for cutoff values for fasting glucose and random glucose. The ADA defines fasting as no caloric intake for at least 8 hours. Fasting plasma glucose results between 100 to 125 mg/dL indicate increased risk for diabetes (prediabetes).Fasting plasma glucose results greater than or equal to 126 mg/dL meet the criteria for diagnosis of diabetes. In the absence of unequivocal hyperglycemia, results should be confirmed by repeat testing. In a patient with classic symptoms of hyperglycemia or hyperglycemic crisis, random plasma glucose results greater than or equal to 200 mg/dL meet the criteria for diagnosis of diabetes.Reference: Standards of Medical Care in Diabetes 2016, [place] Diabetes Association. Diabetes Care. 2016.39(Suppl 1). Performed By: #### 2 4323-8 ####[facility] LABCLIA [id number] [place] [address] Potassium [Moles/Vol] 4.2 mmol/L Normal 3.7-5.1 [facility] Comment on above: Order Comment: Speci men Type: BLOOD SPECIMENOrdering Facility: [facility] Address: [address] [place] [address] Performed By: #### 2 4323-8 ####[facility] LABCLIA [id number] [place] [address] Protein [Mass/Vol] 5.6 g/dL Low 6.3-8.0 [facility] Comment on above: Order Comment: Speci men Type: BLOOD SPECIMENOrdering Facility: [facility] Address: [address] [place] [address] Performed By: #### 2 4323-8 ####[facility] LABCLIA [id number] [place] [address] Sodium [Moles/Vol] 139 mmol/L Normal 136-144 [facility] Comment on above: Order Comment: Speci men Type: BLOOD SPECIMENOrdering Facility: [facility] Address: [address] [place] [address] Performed By: #### 2 4323-8 ####[facility] LABCLIA [id number] [place] [address] Urea nitrogen [Mass/Vol] 11 mg/dL Normal 7-21 [facility] Comment on above: Order Comment: Speci men Type: BLOOD SPECIMENOrdering Facility: [facility] Address: [address] [place] [address] Performed By: #### 2 4323-8 ####[facility] LABCLIA [id number] [place] [address] Cortezra Shaquillel-mCncon 11-15-19 24 Cortisol [Mass/Vol] 13.6 ug/dL Normal 4.8-19.5 [facility] Comment on above: Order Comment: Speci men Type: BLOOD SPECIMENOrdering Facility: [facility] Address: [address] [place] [address] Result Comment: Prov ided reference range is from 6-10 AM sample collection time.Cortisol Reference Range: 6-10 AM = 4.8-19.5 ug/dL, 4-8 PM = 2.5-11.9 ug/dL Performed By: #### 2 143-6, 3016-3 ####[facility] LABCLIA [id number] [facility] [id number] [address] [place] HbA1c (Bld)on 11-15-2023 Average glucose Estimated from glycated hemoglobin (Bld) [Mass/Vol] 100 mg/dL Normal [facility] Comment on above: Order Comment: Speci men Type: BLOOD SPECIMENOrdering Facility: [facility] Address: [address] [place] [address] Result Comment: eAG: (Estimated average glucose) is a calculated value from HgbA1c and is warehouse representative of the average blood glucose level in the last 2-3 month period. Performed By: #### 5 5454-3 ####[facility] LABCLIA [id number] [place] [address] [place] HbA1c (Bld) [Mass fraction] 5.1 % Normal 4.3-5.6 [facility] Comment on above: Order Comment: Speci men Type: BLOOD SPECIMENOrdering Facility: [facility] Address: [address] [place] [address] Result Comment: Amer [place] Diabetes Association guidelines indicate that patients with HgbA1c in the range 5.7-6.4% are at increased risk for development of diabetes, and intervention by lifestyle modification may be beneficial. HgbA1c greater or equal to 6.5% is considered diagnostic of diabetes. Performed By: #### 5 5454-3 ####[facility] LABCLIA [id number] [place] [address] [place] TSH SerPl-aCncon 11-15-2023 TSH Qn 2.680 m[IU]/L Normal 0.270-4.200 [facility] Comment on above: Order Comment: Speci men Type: BLOOD SPECIMENOrdering Facility: [facility] Address: [address] [place] [address] Performed By: #### 2 143-6, 3016-3 ####[facility] LABIA [id number] [place] [address] [place] CNPNon 11-07-2023 CNPN Normal [facility] Urology Office/Clinic Noteon 11-07-2023 Urology Office/Clinic Note Urology Office/Clinic Note Chief Complaint 1 yr f/u w/ SOCRATES and KUB HPI Staff 58 yr old female here today for a 1 yr F/u with KUB [facility] SOCRATES Previous dx: Recurrent UTI, Renal stone Dysuria: denie Incomplete bladder emptying: denies Hematuria: no Frequency: pt states any time she is around running water or hears it she has to go Urgency: yes Nocturia: denies Stream: strong Leaking: denies Post void dripping: denies Wearing pads/ Depends: pads Urge incontinence: at times Stress incontinence: yes Incontinence without Sensory Awareness: denies Abdominal pain: yes Flank pain: denies Sexual complaints: _ History of Present Illness Tests reviewed: reviewed UA, KUB & SOCRATES I have reviewed the previous health record information and history for this patient from [facility]. I have reviewed and verified the staff HPI to be accurate for this encounter. Review of Systems No fever, chills, malaise, myalgia. No rash/lesions. No chest pain, palpitations, or SOB. No abdominal pain, nausea, vomiting. No unilateral calf swelling, redness, pain Physical Exam Vitals & Measurements HR: 92(Peripheral) BP: 156/84 HT: 61 in HT: 155 cm WT: 37.6 kg WT: 82.72 lb BMI: 15.65 General: nontoxic, NAD Mouth: moist mucosa Lungs: normal respiratory effort Cardio: regular rate, good distal perfusion Abdomen: nondistended, no suprapubic distention or tenderness, no CVA tenderness Neurologic: Grossly normal Skin: No rashes or suspicious lesions Assessment/Plan Pt has metastatic lung cancer, follows with Dr. Larkin at [facility] cancer center. Was initially treated w chemo and radiation. off treatment x 4 yrs, then recurrence last summer/fall. Now on Keytruda. more nodules were seen on recent imaging. not sure of next steps yet. BBS 15 (14). Not bothersome enough for treatment per pt. 1. Renal stone (N20.0: Calculus of kidney) SOCRATES 10/14/22 - no hydro. KUB 10/14/22 - several 0.2cm and 0.3cm calcific density overlying the Rt and Lt kidneys respectively. SOCRATES 11/03/23 - several nonobstructing R kidney stones, largest is 2mm. KUB 11/03/23 - numerous pelvic calcifications which appear grossly stable with most favoring phleboliths. cannot r/o distal ureteral stone. I reviewed KUB imaging personally and do not appreciate any significant changes from last year. Pt has no hydro on SOCRATES and has had no recent pain, gross hematuria. So we agree ureteral stone unlikely. Continue stone prevention diet. -Repeat KUB & SOCRATES in 1 year 2. Recurrent UTI (N39.0: Urinary tract infection, site not specified) UTI frequency every 1-2 mos prior to starting care with our office. UTIs started worsening in the past 1-2 yrs. Prior to that averaged UTIs very rarely. Pt's typical UTI sx include low abd pain/pressure, freq, urge. Pt has been using an OTC probiotic for over a year now, has helped prevent infections. UCx:10/12/22 - negative UA today shows trace-intact blood, negative for nitrites and leuks. Currently asx. Pt has had about 2-3 UTIs in the last year. We discussed that this is pretty typical since she is immunosuppressed. Says her oncologist typically treats them. I offered she can always let us know & we can treat them. Or if they become more frequent, she will let me know. -Pt is to call office if UTIs become more often or severe Follow-up With When Contact Information MCKENZIE COHEN, JESSIKA Andrade, [address] [place] [address] Additional Instructions: 1 year w/ [facility] Patient Education Kidney Stones Documentation recorded by the shari Benito accurately reflects the services(s) I performed and decisions made by me. Authenticated by Jessika Esquivel PA-C on 11/07/2023 11:22:03. I, Ashely Benito, personally scribed for Jessika Esquivel PA-C on 11/07/2023 10:47:56. . Problem List/Past Medical History Ongoing Chemotherapy Lung cancer Non-ulcer dyspepsia Recurrent UTI Renal stone Smoker Stomach ulcer UTI symptoms Historical Radiation therapy care Procedure/Surgical History Biopsy (08/10/2022), Bronchoscopy (02/08/2017), Carpal tunnel release, Esophagogastroduodenoscopy and biopsy, Gallbladder, Partial hysterectomy, Reconstruction of nose. Medications Adult Aspirin 81 mg oral tablet, chewable, Chewed, Daily Compazine 10 mg oral tablet, 10 mg= 1 tab(s), Oral, q6hr, PRN fexofenadine, Oral folic acid, Daily Keytruda 50 mg intravenous injection Nature's Bounty Probiotic, Oral, Daily Nurtec ODT 75 mg oral tablet, disintegrating, Oral, Once Suboxone 8 mg-2 mg sublingual film, 1.5 strips, SubLingual, Daily Tylenol, 500 mg, Oral, q4hr, PRN Zofran 8 mg Tab, 8 mg= 1 tab(s), Oral, TID, PRN Allergies penicillins (Unknown) Social History Alcohol - Denies Alcohol Use, 02/07/2017 Substance Abuse - Denies Substance Abuse, 02/07/2017 Tobacco - High Risk, 02/07/2017 10 or more cigarettes (1/2 pa (more content not included)... Normal [facility] Comment on above: Result Comment: Elec tronically Signed By: JESSIKA ESQUIVEL PA-C\.br\Date and Time Signed: 11/07/23 11:22 EDT\.br\Electronically Co-Signed By: Ashely Benito\.br\Date and Time Co-Signed: 11/07/23 10:48 EDT CBC W Auto Differential pane l (Bld)on 10-03-2023 Basophils (Bld) [#/Vol] 0.04 10*3/uL Normal <0.11 [facility] Comment on above: Order Comment: Speci men Type: BLOOD SPECIMENOrdering Facility: [facility] Address: [address] [place] [address] Performed By: #### 5 7021-8 ####[facility] LABCLIA [id number] [place] [id number] Basophils/100 WBC (Bld) 0.6 % Normal [facility] Comment on above: Order Comment: Speci men Type: BLOOD SPECIMENOrdering Facility: [facility] Address: [address] [place] [address] Performed By: #### 5 7021-8 ####[facility] LABCLIA [id number] [place] [address] Differential cell count method Nom (Bld) Auto Normal [facility] Comment on above: Order Comment: Speci men Type: BLOOD SPECIMENOrdering Facility: [facility] Address: [address] [place] [address] Performed By: #### 5 7021-8 ####[facility] LABCLIA [id number] [place] [address] Eosinophils (Bld) [#/Vol] 0.14 10*3/uL Normal <0.46 [facility] Comment on above: Order Comment: Speci men Type: BLOOD SPECIMENOrdering Facility: [facility] Address: [address] [place] [address] Performed By: #### 5 7021-8 ####[facility] LABCLIA [id number] [place] [address] Eosinophils/100 WBC (Bld) 2.0 % Normal [facility] Comment on above: Order Comment: Speci men Type: BLOOD SPECIMENOrdering Facility: [facility] Address: [address] [place] [address] Performed By: #### 5 7021-8 ####[facility] LABCLIA [id number] [place] [address] Erythrocyte distribution width (RBC) [Ratio] 13.5 % Normal 11.5-15.0 [facility] Comment on above: Order Comment: Speci men Type: BLOOD SPECIMENOrdering Facility: [facility] Address: [address] [place] [address] Performed By: #### 5 7021-8 ####[facility] LABCLIA [id number] [place] [address] Hematocrit (Bld) [Volume fraction] 36.8 % Normal 36.0-46.0 [facility] Comment on above: Order Comment: Speci men Type: BLOOD SPECIMENOrdering Facility: [facility] Address: [address] [place] [address] Performed By: #### 5 7021-8 ####[facility] LABCLIA [id number] [place] [address] Hemoglobin (Bld) [Mass/Vol] 12.6 g/dL Normal 11.5-15.5 [facility] Comment on above: Order Comment: Speci men Type: BLOOD SPECIMENOrdering Facility: [facility] Address: [address] [place] [address] Performed By: #### 5 7021-8 ####[facility] LABCLIA [id number] [place] [address] Immature granulocytes (Bld) [#/Vol] 0.04 10*3/uL Normal <0.10 [facility] Comment on above: Order Comment: Speci men Type: BLOOD SPECIMENOrdering Facility: [facility] Address: [address] [place] [address] Performed By: #### 5 7021-8 ####[facility] LABCLIA [id number] [place] [address] Immature granulocytes/100 WBC (Bld) 0.6 % Normal [facility] Comment on above: Order Comment: Speci men Type: BLOOD SPECIMENOrdering Facility: [facility] Address: [address] [place] [address] Performed By: #### 5 7021-8 ####[facility] LABCLIA [id number] [place] [address] Lymphocytes (Bld) [#/Vol] 1.52 10*3/uL Normal 1.00-4.00 [facility] Comment on above: Order Comment: Speci men Type: BLOOD SPECIMENOrdering Facility: [facility] Address: [address] [place] [address] Performed By: #### 5 7021-8 ####[facility] LABCLIA [id number] [place] [address] Lymphocytes/100 WBC (Bld) 22.3 % Normal [facility] Comment on above: Order Comment: Speci men Type: BLOOD SPECIMENOrdering Facility: [facility] Address: [address] [place] [address] Performed By: #### 5 7021-8 ####[facility] LABCLIA [id number] [place] [address] MCH (RBC) [Entitic mass] 36.8 pg High 26.0-34.0 [facility] Comment on above: Order Comment: Speci men Type: BLOOD SPECIMENOrdering Facility: [facility] Address: [address] [place] [address] Performed By: #### 5 7021-8 ####[facility] LABCLIA [id number] [place] [address] MCHC (RBC) [Mass/Vol] 34.2 g/dL Normal 30.5-36.0 [facility] Comment on above: Order Comment: Speci men Type: BLOOD SPECIMENOrdering Facility: [facility] Address: [address] [place] [address] Performed By: #### 5 7021-8 ####[facility] LABCLIA [id number] [place] [address] MCV (RBC) [Entitic vol] 107.6 fL High 80.0-100.0 [facility] Comment on above: Order Comment: Speci men Type: BLOOD SPECIMENOrdering Facility: [facility] Address: [address] [place] [address] Performed By: #### 5 7021-8 ####[facility] LABIA [id number] [place] [address] Monocytes (Bld) [#/Vol] 0.71 10*3/uL Normal <0.87 [facility] Comment on above: Order Comment: Speci men Type: BLOOD SPECIMENOrdering Facility: [facility] Address: [address] [place] [address] Performed By: #### 5 7021-8 ####[facility] LABIA [id number] [place] [address] Monocytes/100 WBC (Bld) 10.4 % Normal [facility] Comment on above: Order Comment: Speci men Type: BLOOD SPECIMENOrdering Facility: [facility] Address: [address] [place] [address] Performed By: #### 5 7021-8 ####[facility] LABCLIA [id number] [place] [address] Neutrophils (Bld) [#/Vol] 4.38 10*3/uL Normal 1.45-7.50 [facility] Comment on above: Order Comment: Speci men Type: BLOOD SPECIMENOrdering Facility: [facility] Address: [address] [place] [address] Performed By: #### 5 7021-8 ####[facility] LABCLIA [id number] [place] [address] Neutrophils/100 WBC (Bld) 64.1 % Normal [facility] Comment on above: Order Comment: Speci men Type: BLOOD SPECIMENOrdering Facility: [facility] Address: [address] [place] [address] Performed By: #### 5 7021-8 ####[facility] LABCLIA [id number] [place] [address] Nucleated RBC (Bld) [#/Vol] 10*3/uL Normal <0.01 [facility] Comment on above: Order Comment: Speci men Type: BLOOD SPECIMENOrdering Facility: [facility] Address: [address] [place] [address] Performed By: #### 5 7021-8 ####[facility] LABCLIA [id number] [place] [address] Nucleated RBC/100 WBC (Bld) [Ratio] 0.0 /100 WBC Normal [facility] Comment on above: Order Comment: Speci men Type: BLOOD SPECIMENOrdering Facility: [facility] Address: [address] [place] [address] Performed By: #### 5 7021-8 ####[facility] LABIA [id number] [place] [address] Platelet mean volume (Bld) [Entitic vol] 9.8 fL Normal 9.0-12.7 [facility] Comment on above: Order Comment: Speci men Type: BLOOD SPECIMENOrdering Facility: [facility] Address: [address] [place] [address] Performed By: #### 5 7021-8 ####[facility] LABIA [id number] [place] [address] Platelets (Bld) [#/Vol] 143 10*3/uL Low 150-400 [facility] Comment on above: Order Comment: Speci men Type: BLOOD SPECIMENOrdering Facility: [facility] Address: [address] [place] [address] Performed By: #### 5 7021-8 ####[facility] LABIA [id number] [place] [address] RBC (Bld) [#/Vol] 3.42 10*6/uL Low 3.90-5.20 [facility] Comment on above: Order Comment: Speci men Type: BLOOD SPECIMENOrdering Facility: [facility] Address: [address] [place] [address] Performed By: #### 5 7021-8 ####[facility] LABIA [id number] [place] [address] WBC (Bld) [#/Vol] 6.83 10*3/uL Normal 3.70-11.00 [facility] Comment on above: Order Comment: Speci men Type: BLOOD SPECIMENOrdering Facility: [facility] Address: [address] [place] [address] Performed By: #### 5 7021-8 ####[facility] LABIA [id number] [place] [address] CNOVSPon 10-03-2023 CNOVSP Normal [facility] CNPNon 10-03-2023 CNPN Normal [facility] Comprehensive metabolic 2000 panelon 10-03-2023 Albumin [Mass/Vol] 3.5 g/dL Low 3.9-4.9 [facility] Comment on above: Order Comment: Speci men Type: BLOOD SPECIMENOrdering Facility: [facility] Address: [address] [place] [address] Performed By: #### 2 4323-8 ####[facility] LABCLIA [id number] [place] [address] ALP [Catalytic activity/Vol] 114 U/L Normal 34-123 [facility] Comment on above: Order Comment: Speci men Type: BLOOD SPECIMENOrdering Facility: [facility] Address: [address] [place] [address] Performed By: #### 2 4323-8 ####[facility] LABCLIA [id number] [place] [address] ALT [Catalytic activity/Vol] 10 U/L Normal 7-38 [facility] Comment on above: Order Comment: Speci men Type: BLOOD SPECIMENOrdering Facility: [facility] Address: [address] [place] [address] Performed By: #### 2 4323-8 ####[facility] LABCLIA [id number] [place] [address] Anion gap [Moles/Vol] 7 mmol/L Low 8-15 [facility] Comment on above: Order Comment: Speci men Type: BLOOD SPECIMENOrdering Facility: [facility] Address: [address] [place] [address] Performed By: #### 2 4323-8 ####[facility] LABCLIA [id number] [place] [address] AST [Catalytic activity/Vol] 15 U/L Normal 13-35 [facility] Comment on above: Order Comment: Speci men Type: BLOOD SPECIMENOrdering Facility: [facility] Address: [address] [place] [address] Performed By: #### 2 4323-8 ####[facility] LABCLIA [id number] [place] [address] Bilirubin [Mass/Vol] 0.3 mg/dL Normal 0.2-1.3 [facility] Comment on above: Order Comment: Speci men Type: BLOOD SPECIMENOrdering Facility: [facility] Address: [address] [place] [address] Performed By: #### 2 4323-8 ####[facility] LABCLIA [id number] [place] [address] Calcium [Mass/Vol] 8.9 mg/dL Normal 8.5-10.2 [facility] Comment on above: Order Comment: Speci men Type: BLOOD SPECIMENOrdering Facility: [facility] Address: [address] [place] [address] Performed By: #### 2 4323-8 ####[facility] LABCLIA [id number] [place] [address] Chloride [Moles/Vol] 102 mmol/L Normal 98-107 [facility] Comment on above: Order Comment: Speci men Type: BLOOD SPECIMENOrdering Facility: [facility] Address: [address] [place] [address] Performed By: #### 2 4323-8 ####[facility] LABCLIA [id number] [place] [address] CO2 [Moles/Vol] 31 mmol/L High 22-30 [facility] Comment on above: Order Comment: Speci men Type: BLOOD SPECIMENOrdering Facility: [facility] Address: [address] [place] [address] Performed By: #### 2 4323-8 ####[facility] LABCLIA [id number] [place] [address] Creatinine [Mass/Vol] 0.73 mg/dL Normal 0.58-0.96 [facility] Comment on above: Order Comment: Speci men Type: BLOOD SPECIMENOrdering Facility: [facility] Address: [address] [place], [place] [address] Performed By: #### 2 4323-8 ####[facility] LABCLIA [id number] [place] [address] Creatinine and Glomerular filtration rate.predicted panel (S/P/Bld) 94 mL/min/1.73m??? Normal >=60 [facility] Comment on above: Order Comment: Sheryl epperson Type: BLOOD SPECIMENOrdering Facility: [facility] Address: [address] [place] [address] Result Comment: Audrey mated Glomerular Filtration Rate (eGFR) is calculated using the 2020 CKD-EPI creatinine equation. This equation utilizes serum creatinine, sex, and age as parameters. The creatinine assay has traceable calibration to isotope dilution-mass spectrometry. Refer to KDIGO guidelines for clinical interpretation. In patients with unstable renal function, e.g. those with acute kidney injury, the eGFR may not accurately reflect actual GFR. Performed By: #### 2 4323-8 ####[facility] LABCLIA [id number] [place] [address] Glucose [Mass/Vol] 100 mg/dL High 74-99 [facility] Comment on above: Order Comment: Sheryl epperson Type: BLOOD SPECIMENOrdering Facility: [facility] Address: [address] [place] [address] Result Comment: The [place] Diabetes Association (ADA) provides guidance for cutoff values for fasting glucose and random glucose. The ADA defines fasting as no caloric intake for at least 8 hours. Fasting plasma glucose results between 100 to 125 mg/dL indicate increased risk for diabetes (prediabetes).Fasting plasma glucose results greater than or equal to 126 mg/dL meet the criteria for diagnosis of diabetes. In the absence of unequivocal hyperglycemia, results should be confirmed by repeat testing. In a patient with classic symptoms of hyperglycemia or hyperglycemic crisis, random plasma glucose results greater than or equal to 200 mg/dL meet the criteria for diagnosis of diabetes.Reference: Standards of Medical Care in Diabetes 2016, [place] Diabetes Association. Diabetes Care. 2016.39(Suppl 1). Performed By: #### 2 4323-8 ####[facility] LABCLIA [id number] [place] [address] Potassium [Moles/Vol] 3.1 mmol/L Low 3.7-5.1 [facility] Comment on above: Order Comment: Speci men Type: BLOOD SPECIMENOrdering Facility: [facility] Address: [address] [place] [address] Performed By: #### 2 4323-8 ####[facility] LABCLIA [id number] [place] [address] Protein [Mass/Vol] 5.7 g/dL Low 6.3-8.0 [facility] Comment on above: Order Comment: Speci men Type: BLOOD SPECIMENOrdering Facility: [facility] Address: [address] [place] [address] Performed By: #### 2 4323-8 ####[facility] LABCLIA [id number] [place] [address] Sodium [Moles/Vol] 140 mmol/L Normal 136-144 [facility] Comment on above: Order Comment: Speci men Type: BLOOD SPECIMENOrdering Facility: [facility] Address: [address] [place] [address] Performed By: #### 2 4323-8 ####[facility] LABCLIA [id number] [place] [address] Urea nitrogen [Mass/Vol] 9 mg/dL Normal 7-21 [facility] Comment on above: Order Comment: Speci men Type: BLOOD SPECIMENOrdering Facility: [facility] Address: [address] [place] [address] Performed By: #### 2 4323-8 ####[facility] LABCLIA [id number] [place] [address] TSH SerPl-aCncon 10-03-2023 TSH Qn 6.910 m[IU]/L High 0.270-4.200 [facility] Comment on above: Order Comment: Speci men Type: BLOOD SPECIMENOrdering Facility: [facility] Address: [address] [place] [address] Performed By: #### 3 016-3 ####[facility] LABCLIA [id number] [address] [address] [place] CNPNon 10-02-2023 CNPN Normal [facility] CT ABD/PEL W IVCONon 024 CT ABD/PEL W IVCON Normal [facility] CT Abdomen and Pelvis W cont rast Jaz 09-28-2023 IMPRESSION: 1. No evidence of metastatic disease in the abdomen or pelvis. Transcribe Date/Time: Sep 28 2023 11:02A Dictated by: ANA TREJO MD This examination was interpreted and the report reviewed and electronically signed by: ANA TREJO MD on Sep 28 2023 11:11AM EST Thank you for allowing us to participate in the care of your patient. Should there be any questions regarding this interpretation, please call [phone]. If you are unable to reach us at the number above, please feel free to contact [facility] eRadiology at [phone]. DIVISION OF RADIOLOGY * * *Final Report* * * DATE OF EXAM: Sep 28 2023 8:48AM [facility] 0530 - CT ABD/PEL W IVCON / PROCEDURE REASON: multiple diagnoses * * * * Physician Interpretation * * * * RESULT: EXAMINATION: CT ABDOMEN AND PELVIS WITH IV CONTRAST CLINICAL HISTORY: Lung cancer. TECHNIQUE: CT of the abdomen and pelvis was performed using standard technique, scanning from just above the dome of the diaphragm to the symphysis pubis. MQ: CTAP_3 Contrast: IV: 70 ml of Omnipaque 300 Oral: 500 ml of Omni 240 10-25ml diluted with water CT Radiation dose: Integrated Dose-length product (DLP) for this visit = 283 mGy*cm. CT Dose Reduction Employed: Automated exposure control (AEC) COMPARISON: PET CT from 06/14/2023. RESULT: Liver: Subcentimeter hypodense hepatic lesions which are too small adequately characterize but may represent cysts or hemangiomas. Biliary: No bile duct dilation. Cholecystectomy. Spleen: No mass. No splenomegaly. Pancreas: No mass or duct dilation. Adrenals: No mass. Kidneys: Mild bilateral renal cortical atrophy. 3 mm nonobstructing stone in the mid to lower pole of the right kidney. GI tract: No dilation or wall thickening. Lymph nodes: No abdominal or pelvic lymphadenopathy. Mesentery/Peritoneum: No ascites or mass. Retroperitoneum: No mass. Vasculature: Moderate to marked atherosclerosis of the abdominal aorta and iliac arteries. Pelvis: Hysterectomy. Bones/Soft Tissues: Degenerative changes. Small fat-containing hernia along the midline upper abdominal wall. Lower thorax: A chest CT performed will be reported separately. Localizer images: No additional findings. DIVISION OF RADIOLOGY Provider, [facility] - 09/28/2023 * * *Final Report* * * DATE OF EXAM: Sep 28 2023 8:48AM [facility] 0530 - CT ABD/PEL W IVCON / PROCEDURE REASON: multiple diagnoses * * * * Physician Interpretation * * * * RESULT: EXAMINATION: CT ABDOMEN AND PELVIS WITH IV CONTRAST CLINICAL HISTORY: Lung cancer. TECHNIQUE: CT of the abdomen and pelvis was performed using standard technique, scanning from just above the dome of the diaphragm to the symphysis pubis. MQ: CTAP_3 Contrast: IV: 70 ml of Omnipaque 300 Oral: 500 ml of Omni 240 10-25ml diluted with water CT Radiation dose: Integrated Dose-length product (DLP) for this visit = 283 mGy*cm. CT Dose Reduction Employed: Automated exposure control (AEC) COMPARISON: PET CT from 06/14/2023. RESULT: Liver: Subcentimeter hypodense hepatic lesions which are too small adequately characterize but may represent cysts or hemangiomas. Biliary: No bile duct dilation. Cholecystectomy. Spleen: No mass. No splenomegaly. Pancreas: No mass or duct dilation. Adrenals: No mass. Kidneys: Mild bilateral renal cortical atrophy. 3 mm nonobstructing stone in the mid to lower pole of the right kidney. GI tract: No dilation or wall thickening. Lymph nodes: No abdominal or pelvic lymphadenopathy. Mesentery/Peritoneum: No ascites or mass. Retroperitoneum: No mass. Vasculature: Moderate to marked atherosclerosis of the abdominal aorta and iliac arteries. Pelvis: Hysterectomy. Bones/Soft Tissues: Degenerative changes. Small fat-containing hernia along the midline upper abdominal wall. Lower thorax: A chest CT performed will be reported separately. Localizer images: No additional findings. IMPRESSION IMPRESSION: 1. No evidence of metastatic disease in the abdomen or pelvis. Transcribe Date/Time: Sep 28 2023 11:02A Dictated by: ANA TREJO MD This examination was interpreted and the report reviewed and electronically signed by: ANA TREJO MD on Sep 28 2023 11:11AM EST Thank you for allowing us to participate in the care of your patient. Should there be any questions regarding this interpretation, please call [phone]. If you are unable to reach us at the number above, please feel free to contact [facility] eRadiology at [phone]. [facility] CT CHEST W IVCONon CT CHEST W IVCON Normal [facility] CT Chest W contrast Jaz IMPRESSION: 1. Stable appearance of posttreatment change/treated neoplasm in the right upper lobe. Within the posterior right lower lobe, there is an area of nodularity measuring 8 x 6 mm. This is new when compared to the prior chest CT from 10/31/2022 but is stable when compared to the PET/CT from 06/14/2023. This was not FDG avid on the prior PET/CT. This abuts a linear opacity. Therefore, it is possible that this representing nodular component of atelectasis. Would advise continued close imaging surveillance and attention to this region. Additionally, there are stable groundglass opacities in the right middle lobe which should undergo continued close imaging surveillance. 2. No significant thoracic adenopathy. Transcribe Date/Time: Sep 28 2023 10:44A Dictated by: ANA TREJO MD This examination was interpreted and the report reviewed and electronically signed by: ANA TREJO MD on Sep 28 2023 11:02AM EST Thank you for allowing us to participate in the care of your patient. Should there be any questions regarding this interpretation, please call [phone]. If you are unable to reach us at the number above, please feel [facility] at [phone]. DIVISION OF RADIOLOGY * * *Final Report* * * DATE OF EXAM: Sep 28 2023 8:48AM [facility] 0539 - CT CHEST W IVCON / PROCEDURE REASON: Malignant neoplasm of hilus of lung, unspecified laterality (HCC) * * * * Physician Interpretation * * * * RESULT: EXAMINATION: CHEST CT WITH CONTRAST CLINICAL HISTORY: Lung cancer. Technique: Spiral CT acquisition of the chest from the thoracic inlet to the upper abdomen following IV contrast. MQ: CTCW_6 Contrast: 70 mL Omnipaque [address] Radiation dose: Integrated Dose-length product (DLP) for this visit = 283 mGy*cm CT Dose Reduction Employed: Automated exposure control (AEC) Comparison: Chest CT with contrast from 10/31/2022 and PET/CT from 06/14/2023 RESULT: Limitations: None. Lines, tubes, and devices: None. Lung parenchyma and airways: Mild centrilobular emphysema. Stable area of masslike consolidation in the posterior right upper lobe and perihilar right upper lobe, consistent with treated neoplasm. Within the posterior right lower lobe, there is an area of nodularity measuring 8 x 6 mm in size on slice 157 of series 4. This is new when compared to the prior chest CT from 10/31/2022 but is stable when compared to the PET/CT from 06/14/2023. This was not FDG avid on the prior PET/CT. This abuts a linear opacity. Therefore, it is possible that this representing nodular component of atelectasis. Surgical john in the posterolateral right lower lobe consistent with wedge resection of a previously seen nodule in this location. Stable 5 mm groundglass opacity in the anterior right middle lobe on slice 91 of series 4. Stable 4 mm groundglass opacity in the posterior right middle lobe on slice 119 of series 4. Pleural space: No pleural effusion. No pleural thickening. Lower neck, lymph nodes, and mediastinum: No suspicious axillary, mediastinal, or hilar lymphadenopathy. Heart, pericardium, and thoracic vessels: No pericardial effusion. Mild coronary artery calcification. Bones and soft tissues: No destructive bone lesion. Chest wall is unremarkable. Upper abdomen: A CT of the abdomen and pelvis was performed and will be reported separately. Localizer images: No additional findings. DIVISION OF RADIOLOGY Provider, [facility] - 09/28/2023 * * *Final Report* * * DATE OF EXAM: Sep 28 2023 8:48AM [facility] 0539 - CT CHEST W IVCON / PROCEDURE REASON: Malignant neoplasm of hilus of lung, unspecified laterality (HCC) * * * * Physician Interpretation * * * * RESULT: EXAMINATION: CHEST CT WITH CONTRAST CLINICAL HISTORY: Lung cancer. Technique: Spiral CT acquisition of the chest from the thoracic inlet to the upper abdomen following IV contrast. MQ: CTCW_6 Contrast: 70 mL Omnipaque [address] Radiation dose: Integrated Dose-length product (DLP) for this visit = 283 mGy*cm CT Dose Reduction Employed: Automated exposure control (AEC) Comparison: Chest CT with contrast from 10/31/2022 and PET/CT from 06/14/2023 RESULT: Limitations: None. Lines, tubes, and devices: None. Lung parenchyma and airways: Mild centrilobular emphysema. Stable area of masslike consolidation in the posterior right upper lobe and perihilar right upper lobe, consistent with treated neoplasm. Within the posterior right lower lobe, there is an area of nodularity measuring 8 x 6 mm in size on slice 157 of series 4. This is new when compared to the prior chest CT from 10/31/2022 but is stable when compared to the PET/CT from 06/14/2023. This was not FDG avid on the prior PET/CT. This abuts a linear opacity. Therefore, it is possible that this representing nodular component of atelectasis. Surgical john in the posterolateral right lower lobe consistent with wedge resection of a previously seen nodule in this location. Stable 5 mm groundglass opacity in the anterior right middle lobe on slice 91 of series 4. Stable 4 mm groundglass opacity in the posterior right middle lobe on slice 119 of series 4. Pleural space: No pleural effusion. No pleural thickening. Lower neck, lymph nodes, and mediastinum: No suspicious axillary, mediastinal, or hilar lymphadenopathy. Heart, pericardium, and thoracic vessels: No pericardial effusion. Mild coronary artery calcification. Bones and soft tissues: No destructive bone lesion. Chest wall is unremarkable. Upper abdomen: A CT of the abdomen and pelvis was performed and will be reported separately. Localizer images: No additional findings. IMPRESSION IMPRESSION: 1. Stable appearance of posttreatment change/treated neoplasm in the right upper lobe. Within the posterior right lower lobe, there is an area of nodularity measuring 8 x 6 mm. This is new when compared to the prior chest CT from 10/31/2022 but is stable when compared to the PET/CT from 06/14/2023. This was not FDG avid on the prior PET/CT. This abuts a linear opacity. Therefore, it is possible that this representing nodular component of atelectasis. Would advise continued close imaging surveillance and attention to this region. Additionally, there are stable groundglass opacities in the right middle lobe which should undergo continued close imaging surveillance. 2. No significant thoracic adenopathy. Transcribe Date/Time: Sep 28 2023 10:44A Dictated by: ANA TREJO MD This examination was interpreted and the report reviewed and electronically signed by: ANA TREJO MD on Sep 28 2023 11:02AM EST Thank you for allowing us to participate in the care of your patient. Should there be any questions regarding this interpretation, please call [phone]. If you are unable to reach us at the number above, please feel free to contact [facility] eRadiology at [phone]. [facility] CT Chest W contrast IVOrdere d By: [facility] Provider on 09-28-2023 [facility] No Panel Informationon 09-27 Radiology Study observation (narrative) [facility] FERRITINon 08-30-2023 Ferritin [Mass/Vol] 34.0 ng/mL 14.7 - 205.1 ng/mL [facility] Ferritin [Mass/Vol]on 2023 Interpretation and review of laboratory results Normal [facility] Iron and Iron binding capaci ty panelon 08-30-2023 Interpretation and review of laboratory results Abnormal [facility] Iron [Mass/Vol] 40 ug/dL Low 41 - 186 ug/dL [facility] Iron binding capacity [Mass/Vol] 265 ug/dL 232 - 386 ug/dL [facility] Iron/TIBC [Molar ratio] 15.1 % 15.0 - 57.0 % [facility] CNPNon 08-29-2023 CNPN Normal [facility] Ferritin SerPl-mCncon 2023 Ferritin [Mass/Vol] 34.0 ng/mL Normal 14.7-205.1 [facility] Comment on above: Order Comment: Speci men Type: BLOOD SPECIMENOrdering Facility: [facility] Address: [address] [place], [place] [address] Performed By: #### 5 0190-8, 2276-4 ####[facility] LABCLIA [id number] [place] [address] [place] Iron and Iron binding capaci ty panelon 08-29-2023 Iron [Mass/Vol] 40 ug/dL Low 41-186 [facility] Comment on above: Order Comment: Speci men Type: BLOOD SPECIMENOrdering Facility: [facility] Address: [address] [place] [address] Performed By: #### 5 0190-8, 2276-4 ####[facility] LABCLIA [id number] [place] [address] [place] Iron binding capacity [Mass/Vol] 265 ug/dL Normal 232-386 [facility] Comment on above: Order Comment: Speci men Type: BLOOD SPECIMENOrdering Facility: [facility] Address: [address] [place] [address] Performed By: #### 5 0190-8, 2276-4 ####[facility] LABCLIA [id number] [place] [address] [place] Iron/TIBC [Molar ratio] 15.1 % Normal 15.0-57.0 [facility] Comment on above: Order Comment: Speci men Type: BLOOD SPECIMENOrdering Facility: [facility] Address: [address] [place] [address] Performed By: #### 5 0190-8, 2276-4 ####[facility] LABCLIA [id number] [place] [address] [place] CBC W Auto Differential pane l (Bld)on 08-22-2023 Basophils (Bld) [#/Vol] 10*3/uL Normal <0.11 [facility] Comment on above: Order Comment: Speci men Type: BLOOD SPECIMENOrdering Facility: [facility] Address: [address] [place] [address] Performed By: #### 5 7021-8 ####[facility] LABCLIA [id number] [place] [address] Basophils/100 WBC (Bld) 0.3 % Normal [facility] Comment on above: Order Comment: Speci men Type: BLOOD SPECIMENOrdering Facility: [facility] Address: [address] [place] [address] Performed By: #### 5 7021-8 ####[facility] LABCLIA [id number] [place] [address] Differential cell count method Nom (Bld) Auto Normal [facility] Comment on above: Order Comment: Speci men Type: BLOOD SPECIMENOrdering Facility: [facility] Address: [address] [place] [address] Performed By: #### 5 7021-8 ####[facility] LABCLIA [id number] [place] [address] Eosinophils (Bld) [#/Vol] 0.15 10*3/uL Normal <0.46 [facility] Comment on above: Order Comment: Speci men Type: BLOOD SPECIMENOrdering Facility: [facility] Address: [address] [place] [address] Performed By: #### 5 7021-8 ####[facility] LABCLIA [id number] [place] [address] Eosinophils/100 WBC (Bld) 2.1 % Normal [facility] Comment on above: Order Comment: Speci men Type: BLOOD SPECIMENOrdering Facility: [facility] Address: [address] [place] [address] Performed By: #### 5 7021-8 ####[facility] LABCLIA [id number] [place] [address] Erythrocyte distribution width (RBC) [Ratio] 12.5 % Normal 11.5-15.0 [facility] Comment on above: Order Comment: Speci men Type: BLOOD SPECIMENOrdering Facility: [facility] Address: [address] [place] [address] Performed By: #### 5 7021-8 ####[facility] LABCLIA [id number] [place] [address] Hematocrit (Bld) [Volume fraction] 36.5 % Normal 36.0-46.0 [facility] Comment on above: Order Comment: Speci men Type: BLOOD SPECIMENOrdering Facility: [facility] Address: [address] [place] [address] Performed By: #### 5 7021-8 ####[facility] LABCLIA [id number] [place] [address] Hemoglobin (Bld) [Mass/Vol] 12.6 g/dL Normal 11.5-15.5 [facility] Comment on above: Order Comment: Speci men Type: BLOOD SPECIMENOrdering Facility: [facility] Address: [address] [place] [address] Performed By: #### 5 7021-8 ####[facility] LABIA [id number] [place] [address] Immature granulocytes (Bld) [#/Vol] 10*3/uL Normal <0.10 [facility] Comment on above: Order Comment: Speci men Type: BLOOD SPECIMENOrdering Facility: [facility] Address: [address] [place] [address] Performed By: #### 5 7021-8 ####[facility] LABCLIA [id number] [place] [address] Immature granulocytes/100 WBC (Bld) 0.3 % Normal [facility] Comment on above: Order Comment: Speci men Type: BLOOD SPECIMENOrdering Facility: [facility] Address: [address] [place] [address] Performed By: #### 5 7021-8 ####[facility] LABIA [id number] [place] [address] Lymphocytes (Bld) [#/Vol] 1.66 10*3/uL Normal 1.00-4.00 [facility] Comment on above: Order Comment: Speci men Type: BLOOD SPECIMENOrdering Facility: [facility] Address: [address] [place] [address] Performed By: #### 5 7021-8 ####[facility] LABCLIA [id number] [place] [address] Lymphocytes/100 WBC (Bld) 23.2 % Normal [facility] Comment on above: Order Comment: Speci men Type: BLOOD SPECIMENOrdering Facility: [facility] Address: [address] [place] [address] Performed By: #### 5 7021-8 ####[facility] LABCLIA [id number] [place] [address] MCH (RBC) [Entitic mass] 37.1 pg High 26.0-34.0 [facility] Comment on above: Order Comment: Speci men Type: BLOOD SPECIMENOrdering Facility: [facility] Address: [address] [place] [address] Performed By: #### 5 7021-8 ####[facility] LABIA [id number] [place] [address] MCHC (RBC) [Mass/Vol] 34.5 g/dL Normal 30.5-36.0 [facility] Comment on above: Order Comment: Speci men Type: BLOOD SPECIMENOrdering Facility: [facility] Address: [address] [place] [address] Performed By: #### 5 7021-8 ####[facility] LABIA [id number] [place] [address] MCV (RBC) [Entitic vol] 107.4 fL High 80.0-100.0 [facility] Comment on above: Order Comment: Speci men Type: BLOOD SPECIMENOrdering Facility: [facility] Address: [address] [place] [address] Performed By: #### 5 7021-8 ####[facility] LABIA [id number] [place] [address] Monocytes (Bld) [#/Vol] 0.71 10*3/uL Normal <0.87 [facility] Comment on above: Order Comment: Speci men Type: BLOOD SPECIMENOrdering Facility: [facility] Address: [address] [place] [address] Performed By: #### 5 7021-8 ####[facility] LABCLIA [id number] [place] [address] Monocytes/100 WBC (Bld) 9.9 % Normal [facility] Comment on above: Order Comment: Speci men Type: BLOOD SPECIMENOrdering Facility: [facility] Address: [address] [place] [address] Performed By: #### 5 7021-8 ####[facility] LABCLIA [id number] [place] [address] Neutrophils (Bld) [#/Vol] 4.58 10*3/uL Normal 1.45-7.50 [facility] Comment on above: Order Comment: Speci men Type: BLOOD SPECIMENOrdering Facility: [facility] Address: [address] [place] [address] Performed By: #### 5 7021-8 ####[facility] LABCLIA [id number] [place] [address] Neutrophils/100 WBC (Bld) 64.2 % Normal [facility] Comment on above: Order Comment: Speci men Type: BLOOD SPECIMENOrdering Facility: [facility] Address: [address] [place] [address] Performed By: #### 5 7021-8 ####[facility] LABCLIA [id number] [place] [address] Nucleated RBC (Bld) [#/Vol] 10*3/uL Normal <0.01 [facility] Comment on above: Order Comment: Speci men Type: BLOOD SPECIMENOrdering Facility: [facility] Address: [address] [place] [address] Performed By: #### 5 7021-8 ####[facility] LABCLIA [id number] [place] [address] Nucleated RBC/100 WBC (Bld) [Ratio] 0.0 /100 WBC Normal [facility] Comment on above: Order Comment: Speci men Type: BLOOD SPECIMENOrdering Facility: [facility] Address: [address] [place] [address] Performed By: #### 5 7021-8 ####[facility] LABCLIA [id number] [place] [address] Platelet mean volume (Bld) [Entitic vol] 9.3 fL Normal 9.0-12.7 [facility] Comment on above: Order Comment: Speci men Type: BLOOD SPECIMENOrdering Facility: [facility] Address: [address] [place] [address] Performed By: #### 5 7021-8 ####[facility] LABCLIA [id number] [place] [address] Platelets (Bld) [#/Vol] 159 10*3/uL Normal 150-400 [facility] Comment on above: Order Comment: Speci men Type: BLOOD SPECIMENOrdering Facility: [facility] Address: [address] [place] [address] Performed By: #### 5 7021-8 ####[facility] LABCLIA [id number] [place] [address] RBC (Bld) [#/Vol] 3.40 10*6/uL Low 3.90-5.20 [facility] Comment on above: Order Comment: Speci men Type: BLOOD SPECIMENOrdering Facility: [facility] Address: [address] [place] [address] Performed By: #### 5 7021-8 ####[facility] LABCLIA [id number] [place] [address] WBC (Bld) [#/Vol] 7.14 10*3/uL Normal 3.70-11.00 [facility] Comment on above: Order Comment: Speci men Type: BLOOD SPECIMENOrdering Facility: [facility] Address: [address] [place] [address] Performed By: #### 5 7021-8 ####[facility] LABCLIA [id number] [place] [address] CNOVSPon 08-22-2023 CNOVSP Normal [facility] CNPNon 08-22-2023 CNPN Normal [facility] Comprehensive metabolic 2000 panelon 08-22-2023 Albumin [Mass/Vol] 4.0 g/dL Normal 3.9-4.9 [facility] [facility] Comment on above: Order Comment: Speci men Type: BLOOD SPECIMENOrdering Facility: [facility] Address: [address] [place] [address] Performed By: #### 2 4323-8 ####[facility] LABCLIA [id number] [place] [address] ALP [Catalytic activity/Vol] 111 U/L Normal 34-123 [facility] Comment on above: Order Comment: Speci men Type: BLOOD SPECIMENOrdering Facility: [facility] Address: [address] [place] [address] Performed By: #### 2 4323-8 ####[facility] LABCLIA [id number] [place] [address] ALT [Catalytic activity/Vol] 8 U/L Normal 7-38 [facility] Comment on above: Order Comment: Speci men Type: BLOOD SPECIMENOrdering Facility: [facility] Address: [address] [place] [address] Performed By: #### 2 4323-8 ####[facility] LABIA [id number] [place] [address] Anion gap [Moles/Vol] 7 mmol/L Low 8-15 [facility] Comment on above: Order Comment: Speci men Type: BLOOD SPECIMENOrdering Facility: [facility] Address: [address] [place] [address] Performed By: #### 2 4323-8 ####[facility] LABCLIA [id number] [place] [address] AST [Catalytic activity/Vol] 14 U/L Normal 13-35 [facility] Comment on above: Order Comment: Speci men Type: BLOOD SPECIMENOrdering Facility: [facility] Address: [address] [place] [address] Performed By: #### 2 4323-8 ####[facility] LABCLIA [id number] [place] [address] Bilirubin [Mass/Vol] 0.3 mg/dL Normal 0.2-1.3 [facility] Comment on above: Order Comment: Speci men Type: BLOOD SPECIMENOrdering Facility: [facility] Address: [address] [place] [address] Performed By: #### 2 4323-8 ####[facility] LABCLIA [id number] [place] [address] Calcium [Mass/Vol] 9.7 mg/dL Normal 8.5-10.2 [facility] Comment on above: Order Comment: Speci men Type: BLOOD SPECIMENOrdering Facility: [facility] Address: [address] [place] [address] Performed By: #### 2 4323-8 ####[facility] LABCLIA [id number] [place] [address] Chloride [Moles/Vol] 103 mmol/L Normal 98-107 [facility] Comment on above: Order Comment: Speci men Type: BLOOD SPECIMENOrdering Facility: [facility] Address: [address] [place] [address] Performed By: #### 2 4323-8 ####[facility] LABCLIA [id number] [place] [address] CO2 [Moles/Vol] 29 mmol/L Normal 22-30 [facility] Comment on above: Order Comment: Speci men Type: BLOOD SPECIMENOrdering Facility: [facility] Address: [address] [place] [address] Performed By: #### 2 4323-8 ####[facility] LABCLIA [id number] [place] [address] Creatinine [Mass/Vol] 0.68 mg/dL Normal 0.58-0.96 [facility] Comment on above: Order Comment: Speci men Type: BLOOD SPECIMENOrdering Facility: [facility] Address: [address] [place] [address] Performed By: #### 2 4323-8 ####[facility] LABCLIA [id number] [place] [address] Creatinine and Glomerular filtration rate.predicted panel (S/P/Bld) 100 mL/min/1.73m??? Normal >=60 [facility] Comment on above: Order Comment: Speci men Type: BLOOD SPECIMENOrdering Facility: [facility] Address: [address] [place] [address] Result Comment: Audrey mated Glomerular Filtration Rate (eGFR) is calculated using the 2020 CKD-EPI creatinine equation. This equation utilizes serum creatinine, sex, and age as parameters. The creatinine assay has traceable calibration to isotope dilution-mass spectrometry. Refer to KDIGO guidelines for clinical interpretation. In patients with unstable renal function, e.g. those with acute kidney injury, the eGFR may not accurately reflect actual GFR. Performed By: #### 2 4323-8 ####[facility] LABCLIA [id number] [place] [address] Glucose [Mass/Vol] 114 mg/dL High 74-99 [facility] Comment on above: Order Comment: Speci men Type: BLOOD SPECIMENOrdering Facility: [facility] Address: [address] [place] [address] Result Comment: The [place] Diabetes Association (ADA) provides guidance for cutoff values for fasting glucose and random glucose. The ADA defines fasting as no caloric intake for at least 8 hours. Fasting plasma glucose results between 100 to 125 mg/dL indicate increased risk for diabetes (prediabetes).Fasting plasma glucose results greater than or equal to 126 mg/dL meet the criteria for diagnosis of diabetes. In the absence of unequivocal hyperglycemia, results should be confirmed by repeat testing. In a patient with classic symptoms of hyperglycemia or hyperglycemic crisis, random plasma glucose results greater than or equal to 200 mg/dL meet the criteria for diagnosis of diabetes.Reference: Standards of Medical Care in Diabetes 2016, [place] Diabetes Association. Diabetes Care. 2016.39(Suppl 1). Performed By: #### 2 4323-8 ####[facility] LABCLIA [id number] [place] [address] Potassium [Moles/Vol] 3.6 mmol/L Low 3.7-5.1 [facility] Comment on above: Order Comment: Speci men Type: BLOOD SPECIMENOrdering Facility: [facility] Address: [address] [place] [address] Performed By: #### 2 4323-8 ####[facility] LABCLIA [id number] [place] [address] Protein [Mass/Vol] 6.4 g/dL Normal 6.3-8.0 [facility] Comment on above: Order Comment: Speci men Type: BLOOD SPECIMENOrdering Facility: [facility] Address: [address] [place] [address] Performed By: #### 2 4323-8 ####[facility] LABCLIA [id number] [place] [address] Sodium [Moles/Vol] 139 mmol/L Normal 136-144 [facility] Comment on above: Order Comment: Speci men Type: BLOOD SPECIMENOrdering Facility: [facility] Address: [address] [place] [address] Performed By: #### 2 4323-8 ####[facility] LABCLIA [id number] [place] [address] Urea nitrogen [Mass/Vol] 10 mg/dL Normal 7-21 [facility] Comment on above: Order Comment: Speci men Type: BLOOD SPECIMENOrdering Facility: [facility] Address: [address] [place] [address] Performed By: #### 2 4323-8 ####[facility] LABIA [id number] [place] [address] TSH SerPl-aCncon 08-22-2023 TSH Qn 2.880 m[IU]/L Normal 0.270-4.200 [facility] Comment on above: Order Comment: Speci men Type: BLOOD SPECIMENOrdering Facility: [facility] Address: [address] [place] [address] Performed By: #### 3 016-3 ####[facility] LABCLIA [id number] [place] [id number] [place] CBC W Auto Differential pane l (Bld)on 07-11-2023 Basophils (Bld) [#/Vol] 10*3/uL Normal <0.11 [facility] Comment on above: Order Comment: Speci men Type: BLOOD SPECIMENOrdering Facility: [facility] Address: [address] [place] [address] Performed By: #### 5 7021-8 ####[facility] LABIA [id number] [place] [address] Basophils/100 WBC (Bld) 0.3 % Normal [facility] Comment on above: Order Comment: Speci men Type: BLOOD SPECIMENOrdering Facility: [facility] Address: [address] [place] [address] Performed By: #### 5 7021-8 ####[facility] LABIA [id number] [place] [address] Differential cell count method Nom (Bld) Auto Normal [facility] Comment on above: Order Comment: Speci men Type: BLOOD SPECIMENOrdering Facility: [facility] Address: [address] [place] [address] Performed By: #### 5 7021-8 ####[facility] LABCLIA [id number] [place] [address] Eosinophils (Bld) [#/Vol] 0.22 10*3/uL Normal <0.46 [facility] Comment on above: Order Comment: Speci men Type: BLOOD SPECIMENOrdering Facility: [facility] Address: [address] [place] [address] Performed By: #### 5 7021-8 ####[facility] LABCLIA [id number] [place] [address] Eosinophils/100 WBC (Bld) 3.8 % Normal [facility] Comment on above: Order Comment: Speci men Type: BLOOD SPECIMENOrdering Facility: [facility] Address: [address] [place] [address] Performed By: #### 5 7021-8 ####[facility] LABIA [id number] [place] [address] Erythrocyte distribution width (RBC) [Ratio] 13.1 % Normal 11.5-15.0 [facility] Comment on above: Order Comment: Speci men Type: BLOOD SPECIMENOrdering Facility: [facility] Address: [address] [place] [address] Performed By: #### 5 7021-8 ####[facility] LABCLIA [id number] [place] [address] Hematocrit (Bld) [Volume fraction] 34.9 % Low 36.0-46.0 [facility] Comment on above: Order Comment: Speci men Type: BLOOD SPECIMENOrdering Facility: [facility] Address: [address] [place] [address] Performed By: #### 5 7021-8 ####[facility] LABIA [id number] [place] [address] Hemoglobin (Bld) [Mass/Vol] 11.8 g/dL Normal 11.5-15.5 [facility] Comment on above: Order Comment: Speci men Type: BLOOD SPECIMENOrdering Facility: [facility] Address: [address] [place] [address] Performed By: #### 5 7021-8 ####[facility] LABCLIA [id number] [place] [address] Immature granulocytes (Bld) [#/Vol] 0.04 10*3/uL Normal <0.10 [facility] Comment on above: Order Comment: Speci men Type: BLOOD SPECIMENOrdering Facility: [facility] Address: [address] [place] [address] Performed By: #### 5 7021-8 ####[facility] LABCLIA [id number] [place] [address] Immature granulocytes/100 WBC (Bld) 0.7 % Normal [facility] Comment on above: Order Comment: Speci men Type: BLOOD SPECIMENOrdering Facility: [facility] Address: [address] [place] [address] Performed By: #### 5 7021-8 ####[facility] LABCLIA [id number] [place] [address] Lymphocytes (Bld) [#/Vol] 1.35 10*3/uL Normal 1.00-4.00 [facility] Comment on above: Order Comment: Speci men Type: BLOOD SPECIMENOrdering Facility: [facility] Address: [address] [place] [address] Performed By: #### 5 7021-8 ####[facility] LABCLIA [id number] [place] [address] Lymphocytes/100 WBC (Bld) 23.1 % Normal [facility] Comment on above: Order Comment: Speci men Type: BLOOD SPECIMENOrdering Facility: [facility] Address: [address] [place] [address] Performed By: #### 5 7021-8 ####[facility] LABCLIA [id number] [place] [address] MCH (RBC) [Entitic mass] 36.5 pg High 26.0-34.0 [facility] Comment on above: Order Comment: Speci men Type: BLOOD SPECIMENOrdering Facility: [facility] Address: [address] [place] [address] Performed By: #### 5 7021-8 ####[facility] LABCLIA [id number] [place] [address] MCHC (RBC) [Mass/Vol] 33.8 g/dL Normal 30.5-36.0 [facility] Comment on above: Order Comment: Speci men Type: BLOOD SPECIMENOrdering Facility: [facility] Address: [address] [place] [address] Performed By: #### 5 7021-8 ####[facility] LABCLIA [id number] [place] [address] MCV (RBC) [Entitic vol] 108.0 fL High 80.0-100.0 [facility] Comment on above: Order Comment: Speci men Type: BLOOD SPECIMENOrdering Facility: [facility] Address: [address] [place] [address] Performed By: #### 5 7021-8 ####[facility] LABCLIA [id number] [place] [address] Monocytes (Bld) [#/Vol] 0.60 10*3/uL Normal <0.87 [facility] Comment on above: Order Comment: Speci men Type: BLOOD SPECIMENOrdering Facility: [facility] Address: [address] [place] [address] Performed By: #### 5 7021-8 ####[facility] LABCLIA [id number] [place] [address] Monocytes/100 WBC (Bld) 10.3 % Normal [facility] Comment on above: Order Comment: Speci men Type: BLOOD SPECIMENOrdering Facility: [facility] Address: [address] [place] [address] Performed By: #### 5 7021-8 ####[facility] LABCLIA [id number] [place] [address] Neutrophils (Bld) [#/Vol] 3.62 10*3/uL Normal 1.45-7.50 [facility] Comment on above: Order Comment: Speci men Type: BLOOD SPECIMENOrdering Facility: [facility] Address: [address] [place] [address] Performed By: #### 5 7021-8 ####[facility] LABCLIA [id number] [place] [address] Neutrophils/100 WBC (Bld) 61.8 % Normal [facility] Comment on above: Order Comment: Speci men Type: BLOOD SPECIMENOrdering Facility: [facility] Address: [address] [place] [address] Performed By: #### 5 7021-8 ####[facility] LABCLIA [id number] [place] [address] Nucleated RBC (Bld) [#/Vol] 10*3/uL Normal <0.01 [facility] Comment on above: Order Comment: Speci men Type: BLOOD SPECIMENOrdering Facility: [facility] Address: [address] [place] [address] Performed By: #### 5 7021-8 ####[facility] LABCLIA [id number] [place] [address] Nucleated RBC/100 WBC (Bld) [Ratio] 0.0 /100 WBC Normal [facility] Comment on above: Order Comment: Speci men Type: BLOOD SPECIMENOrdering Facility: [facility] Address: [address] [place] [address] Performed By: #### 5 7021-8 ####[facility] LABCLIA [id number] [place] [address] Platelet mean volume (Bld) [Entitic vol] 9.2 fL Normal 9.0-12.7 [facility] Comment on above: Order Comment: Speci men Type: BLOOD SPECIMENOrdering Facility: [facility] Address: [address] [place] [address] Performed By: #### 5 7021-8 ####[facility] LABIA [id number] [place] [address] Platelets (Bld) [#/Vol] 173 10*3/uL Normal 150-400 [facility] Comment on above: Order Comment: Speci men Type: BLOOD SPECIMENOrdering Facility: [facility] Address: [address] [place] [address] Performed By: #### 5 7021-8 ####[facility] LABIA [id number] [place] [address] RBC (Bld) [#/Vol] 3.23 10*6/uL Low 3.90-5.20 [facility] Comment on above: Order Comment: Speci men Type: BLOOD SPECIMENOrdering Facility: [facility] Address: [address] [place] [address] Performed By: #### 5 7021-8 ####[facility] LABIA [id number] [place] [address] WBC (Bld) [#/Vol] 5.85 10*3/uL Normal 3.70-11.00 [facility] Comment on above: Order Comment: Speci men Type: BLOOD SPECIMENOrdering Facility: [facility] Address: [address] [place] [address] Performed By: #### 5 7021-8 ####[facility] LABIA [id number] [place] [address] CNOVSPon 07-11-2023 CNOVSP Normal [facility] metabolic 2000 panelon 07-11-2023 Albumin [Mass/Vol] 3.8 g/dL Low 3.9-4.9 [facility] Comment on above: Order Comment: Speci men Type: BLOOD SPECIMENOrdering Facility: [facility] Address: [address] [place] [address] Performed By: #### 2 4323-8 ####[facility] LABCLIA [id number] [place] [address] ALP [Catalytic activity/Vol] 116 U/L Normal 34-123 [facility] Comment on above: Order Comment: Speci men Type: BLOOD SPECIMENOrdering Facility: [facility] Address: [address] [place] [address] Performed By: #### 2 4323-8 ####[facility] LABCLIA [id number] [place] [address] ALT [Catalytic activity/Vol] 8 U/L Normal 7-38 [facility] Comment on above: Order Comment: Speci men Type: BLOOD SPECIMENOrdering Facility: [facility] Address: [address] [place] [address] Performed By: #### 2 4323-8 ####[facility] LABCLIA [id number] [place] [address] Anion gap [Moles/Vol] 6 mmol/L Low 9-18 [facility] Comment on above: Order Comment: Speci men Type: BLOOD SPECIMENOrdering Facility: [facility] Address: [address] [place] [address] Performed By: #### 2 4323-8 ####[facility] LABCLIA [id number] [place] [address] AST [Catalytic activity/Vol] 13 U/L Normal 13-35 [facility] Comment on above: Order Comment: Speci men Type: BLOOD SPECIMENOrdering Facility: [facility] Address: [address] [place] [address] Performed By: #### 2 4323-8 ####[facility] LABCLIA [id number] [place] [address] Bilirubin [Mass/Vol] 0.3 mg/dL Normal 0.2-1.3 [facility] Comment on above: Order Comment: Speci men Type: BLOOD SPECIMENOrdering Facility: [facility] Address: [address] [place] [address] Performed By: #### 2 4323-8 ####[facility] LABCLIA [id number] [place] [address] Calcium [Mass/Vol] 8.8 mg/dL Normal 8.5-10.2 [facility] Comment on above: Order Comment: Speci men Type: BLOOD SPECIMENOrdering Facility: [facility] Address: [address] [place] [address] Performed By: #### 2 4323-8 ####[facility] LABCLIA [id number] [place] [address] Chloride [Moles/Vol] 106 mmol/L High 97-105 [facility] Comment on above: Order Comment: Speci men Type: BLOOD SPECIMENOrdering Facility: [facility] Address: [address] [place] [address] Performed By: #### 2 4323-8 ####[facility] LABCLIA [id number] [place] [address] CO2 [Moles/Vol] 29 mmol/L Normal 22-30 [facility] Comment on above: Order Comment: Speci men Type: BLOOD SPECIMENOrdering Facility: [facility] Address: [address] [place] [address] Performed By: #### 2 4323-8 ####[facility] LABCLIA [id number] [place] [address] Creatinine [Mass/Vol] 0.80 mg/dL Normal 0.58-0.96 [facility] Comment on above: Order Comment: Speci men Type: BLOOD SPECIMENOrdering Facility: [facility] Address: [address] [place] [address] Performed By: #### 2 4323-8 ####[facility] LABCLIA [id number] [place] [address] Creatinine and Glomerular filtration rate.predicted panel (S/P/Bld) 84 mL/min/1.73m??? Normal >=60 [facility] Comment on above: Order Comment: Sheryl epperson Type: BLOOD SPECIMENOrdering Facility: [facility] Address: [address] [place] [address] Result Comment: Audrey mated Glomerular Filtration Rate (eGFR) is calculated using the 2020 CKD-EPI creatinine equation. This equation utilizes serum creatinine, sex, and age as parameters. The creatinine assay has traceable calibration to isotope dilution-mass spectrometry. Refer to KDIGO guidelines for clinical interpretation. In patients with unstable renal function, e.g. those with acute kidney injury, the eGFR may not accurately reflect actual GFR. Performed By: #### 2 4323-8 ####[facility] LABCLIA [id number] [place] [address] Glucose [Mass/Vol] 100 mg/dL High 74-99 [facility] Comment on above: Order Comment: Sheryl epperson Type: BLOOD SPECIMENOrdering Facility: [facility] Address: [address] [place] [address] Result Comment: The [place] Diabetes [employer] (ADA) provides guidance for cutoff values for fasting glucose and random glucose. The ADA defines fasting as no caloric intake for at least 8 hours. Fasting plasma glucose results between 100 to 125 mg/dL indicate increased risk for diabetes (prediabetes).Fasting plasma glucose results greater than or equal to 126 mg/dL meet the criteria for diagnosis of diabetes. In the absence of unequivocal hyperglycemia, results should be confirmed by repeat testing. In a patient with classic symptoms of hyperglycemia or hyperglycemic crisis, random plasma glucose results greater than or equal to 200 mg/dL meet the criteria for diagnosis of diabetes.Reference: Standards of Medical Care in Diabetes 2016, [place] Diabetes [employer]. Diabetes Care. 2016.39(Suppl 1). Performed By: #### 2 4323-8 ####[facility] LABCLIA [id number] [place] [address] Potassium [Moles/Vol] 3.8 mmol/L Normal 3.7-5.1 [facility] Comment on above: Order Comment: Speci men Type: BLOOD SPECIMENOrdering Facility: [facility] Address: [address] [place] [address] Performed By: #### 2 4323-8 ####[facility] LABCLIA [id number] [place] [address] Protein [Mass/Vol] 6.0 g/dL Low 6.3-8.0 [facility] Comment on above: Order Comment: Speci men Type: BLOOD SPECIMENOrdering Facility: [facility] Address: [address] [place] [address] Performed By: #### 2 4323-8 ####[facility] LABCLIA [id number] [place] [address] Sodium [Moles/Vol] 141 mmol/L Normal 136-144 [facility] Comment on above: Order Comment: Speci men Type: BLOOD SPECIMENOrdering Facility: [facility] Address: [address] [place] [address] Performed By: #### 2 4323-8 ####[facility] LABCLIA [id number] [place] [address] Urea nitrogen [Mass/Vol] 13 mg/dL Normal 7-21 [facility] Comment on above: Order Comment: Speci men Type: BLOOD SPECIMENOrdering Facility: [facility] Address: [address] [place] [address] Performed By: #### 2 4323-8 ####[facility] LABCLIA [id number] [place] [address] TSH SerPl-aCncon 07-11-2023 TSH Qn 1.350 m[IU]/L Normal 0.270-4.200 [facility] Comment on above: Order Comment: Speci men Type: BLOOD SPECIMENOrdering Facility: [facility] Address: [address] [place] [address] Performed By: #### 3 016-3 ####[facility] LABCLIA [id number] [facility] [id number] [id number] [place] CBC W Auto Differential pane l (Bld)on 06-20-2023 Basophils (Bld) [#/Vol] 0.03 10*3/uL Normal <0.11 [facility] Comment on above: Order Comment: Speci men Type: BLOOD SPECIMENOrdering Facility: [facility] Address: [address] [place] [address] Performed By: #### 5 7021-8 ####[facility] LABCLIA [id number] [place] [address] Basophils/100 WBC (Bld) 0.5 % Normal [facility] Comment on above: Order Comment: Speci men Type: BLOOD SPECIMENOrdering Facility: [facility] Address: [address] [place] [address] Performed By: #### 5 7021-8 ####[facility] LABCLIA [id number] [place] [address] Differential cell count method Nom (Bld) Auto Normal [facility] Comment on above: Order Comment: Speci men Type: BLOOD SPECIMENOrdering Facility: [facility] Address: [address] [place] [address] Performed By: #### 5 7021-8 ####[facility] LABCLIA [id number] [place] [address] Eosinophils (Bld) [#/Vol] 0.15 10*3/uL Normal <0.46 [facility] Comment on above: Order Comment: Speci men Type: BLOOD SPECIMENOrdering Facility: [facility] Address: [address] [place] [address] Performed By: #### 5 7021-8 ####[facility] LABCLIA [id number] [place] [address] Eosinophils/100 WBC (Bld) 2.3 % Normal [facility] Comment on above: Order Comment: Speci men Type: BLOOD SPECIMENOrdering Facility: [facility] Address: [address] [place] [address] Performed By: #### 5 7021-8 ####[facility] LABCLIA [id number] [place] [address] Erythrocyte distribution width (RBC) [Ratio] 13.6 % Normal 11.5-15.0 [facility] Comment on above: Order Comment: Speci men Type: BLOOD SPECIMENOrdering Facility: [facility] Address: [address] [place] [address] Performed By: #### 5 7021-8 ####[facility] LABCLIA [id number] [place] [address] Hematocrit (Bld) [Volume fraction] 36.1 % Normal 36.0-46.0 [facility] Comment on above: Order Comment: Speci men Type: BLOOD SPECIMENOrdering Facility: [facility] Address: [address] [place] [address] Performed By: #### 5 7021-8 ####[facility] LABCLIA [id number] [place] [address] Hemoglobin (Bld) [Mass/Vol] 11.9 g/dL Normal 11.5-15.5 [facility] Comment on above: Order Comment: Speci men Type: BLOOD SPECIMENOrdering Facility: [facility] Address: [address] [place] [address] Performed By: #### 5 7021-8 ####[facility] LABCLIA [id number] [place] [address] Immature granulocytes (Bld) [#/Vol] 0.03 10*3/uL Normal <0.10 [facility] Comment on above: Order Comment: Speci men Type: BLOOD SPECIMENOrdering Facility: [facility] Address: [address] [place] [address] Performed By: #### 5 7021-8 ####[facility] LABCLIA [id number] [place] [address] Immature granulocytes/100 WBC (Bld) 0.5 % Normal [facility] Comment on above: Order Comment: Speci men Type: BLOOD SPECIMENOrdering Facility: [facility] Address: [address] [place] [address] Performed By: #### 5 7021-8 ####[facility] LABCLIA [id number] [place] [address] Lymphocytes (Bld) [#/Vol] 1.38 10*3/uL Normal 1.00-4.00 [facility] Comment on above: Order Comment: Speci men Type: BLOOD SPECIMENOrdering Facility: [facility] Address: [address] [place] [address] Performed By: #### 5 7021-8 ####[facility] LABCLIA [id number] [place] [address] Lymphocytes/100 WBC (Bld) 20.8 % Normal [facility] Comment on above: Order Comment: Speci men Type: BLOOD SPECIMENOrdering Facility: [facility] Address: [address] [place] [address] Performed By: #### 5 7021-8 ####[facility] LABCLIA [id number] [place] [address] MCH (RBC) [Entitic mass] 36.1 pg High 26.0-34.0 [facility] Comment on above: Order Comment: Speci men Type: BLOOD SPECIMENOrdering Facility: [facility] Address: [address] [place] [address] Performed By: #### 5 7021-8 ####[facility] LABCLIA [id number] [place] [address] MCHC (RBC) [Mass/Vol] 33.0 g/dL Normal 30.5-36.0 [facility] Comment on above: Order Comment: Speci men Type: BLOOD SPECIMENOrdering Facility: [facility] Address: [address] [place] [address] Performed By: #### 5 7021-8 ####[facility] LABCLIA [id number] [place] [address] MCV (RBC) [Entitic vol] 109.4 fL High 80.0-100.0 [facility] Comment on above: Order Comment: Speci men Type: BLOOD SPECIMENOrdering Facility: [facility] Address: [address] [place] [address] Performed By: #### 5 7021-8 ####[facility] LABCLIA [id number] [place] [address] Monocytes (Bld) [#/Vol] 0.70 10*3/uL Normal <0.87 [facility] Comment on above: Order Comment: Speci men Type: BLOOD SPECIMENOrdering Facility: [facility] Address: [address] [place] [address] Performed By: #### 5 7021-8 ####[facility] LABCLIA [id number] [place] [address] Monocytes/100 WBC (Bld) 10.5 % Normal [facility] Comment on above: Order Comment: Speci men Type: BLOOD SPECIMENOrdering Facility: [facility] Address: [address] [place] [address] Performed By: #### 5 7021-8 ####[facility] LABCLIA [id number] [place] [address] Neutrophils (Bld) [#/Vol] 4.35 10*3/uL Normal 1.45-7.50 [facility] Comment on above: Order Comment: Speci men Type: BLOOD SPECIMENOrdering Facility: [facility] Address: [address] [place] [address] Performed By: #### 5 7021-8 ####[facility] LABCLIA [id number] [place] [address] Neutrophils/100 WBC (Bld) 65.4 % Normal [facility] Comment on above: Order Comment: Speci men Type: BLOOD SPECIMENOrdering Facility: [facility] Address: [address] [place] [address] Performed By: #### 5 7021-8 ####[facility] LABCLIA [id number] [place] [address] Nucleated RBC (Bld) [#/Vol] 10*3/uL Normal <0.01 [facility] Comment on above: Order Comment: Speci men Type: BLOOD SPECIMENOrdering Facility: [facility] Address: [address] [place] [address] Performed By: #### 5 7021-8 ####[facility] LABCLIA [id number] [place] [address] Nucleated RBC/100 WBC (Bld) [Ratio] 0.0 /100 WBC Normal [facility] Comment on above: Order Comment: Speci men Type: BLOOD SPECIMENOrdering Facility: [facility] Address: [address] [place] [address] Performed By: #### 5 7021-8 ####[facility] LABCLIA [id number] [place] [address] Platelet mean volume (Bld) [Entitic vol] 9.5 fL Normal 9.0-12.7 [facility] Comment on above: Order Comment: Speci men Type: BLOOD SPECIMENOrdering Facility: [facility] Address: [address] [place] [address] Performed By: #### 5 7021-8 ####[facility] LABCLIA [id number] [place] [address] Platelets (Bld) [#/Vol] 173 10*3/uL Normal 150-400 [facility] Comment on above: Order Comment: Speci men Type: BLOOD SPECIMENOrdering Facility: [facility] Address: [address] [place] [address] Performed By: #### 5 7021-8 ####[facility] LABCLIA [id number] [place] [address] RBC (Bld) [#/Vol] 3.30 10*6/uL Low 3.90-5.20 [facility] Comment on above: Order Comment: Speci men Type: BLOOD SPECIMENOrdering Facility: [facility] Address: [address] [place] [address] Performed By: #### 5 7021-8 ####[facility] LABIA [id number] [place] [address] WBC (Bld) [#/Vol] 6.64 10*3/uL Normal 3.70-11.00 [facility] Comment on above: Order Comment: Speci men Type: BLOOD SPECIMENOrdering Facility: [facility] Address: [address] [place] [address] Performed By: #### 5 7021-8 ####[facility] LABIA [id number] [place] [address] CNOVSPon 06-20-2023 CNOVSP Normal [facility] Comprehensive metabolic 2000 panelon 06-20-2023 Albumin [Mass/Vol] 3.9 g/dL Normal 3.9-4.9 [facility] Comment on above: Order Comment: Speci men Type: BLOOD SPECIMENOrdering Facility: [facility] Address: [address] [place] [address] Performed By: #### 2 4323-8 ####[facility] LABCLIA [id number] [place] [address] ALP [Catalytic activity/Vol] 126 U/L High 34-123 [facility] Comment on above: Order Comment: Speci men Type: BLOOD SPECIMENOrdering Facility: [facility] Address: [address] [place] [address] Performed By: #### 2 4323-8 ####[facility] LABCLIA [id number] [place] [address] ALT [Catalytic activity/Vol] 7 U/L Normal 7-38 [facility] Comment on above: Order Comment: Speci men Type: BLOOD SPECIMENOrdering Facility: [facility] Address: [address] [place] [address] Performed By: #### 2 4323-8 ####[facility] LABCLIA [id number] [place] [address] Anion gap [Moles/Vol] 7 mmol/L Low 9-18 [facility] Comment on above: Order Comment: Speci men Type: BLOOD SPECIMENOrdering Facility: [facility] Address: [address] [place] [address] Performed By: #### 2 4323-8 ####[facility] LABCLIA [id number] [place] [address] AST [Catalytic activity/Vol] 15 U/L Normal 13-35 [facility] Comment on above: Order Comment: Speci men Type: BLOOD SPECIMENOrdering Facility: [facility] Address: [address] [place] [address] Performed By: #### 2 4323-8 ####[facility] LABCLIA [id number] [place] [address] Bilirubin [Mass/Vol] 0.3 mg/dL Normal 0.2-1.3 [facility] Comment on above: Order Comment: Speci men Type: BLOOD SPECIMENOrdering Facility: [facility] Address: [address] [place] [address] Performed By: #### 2 4323-8 ####[facility] LABCLIA [id number] [place] [address] Calcium [Mass/Vol] 9.4 mg/dL Normal 8.5-10.2 [facility] Comment on above: Order Comment: Speci men Type: BLOOD SPECIMENOrdering Facility: [facility] Address: [address] [place] [address] Performed By: #### 2 4323-8 ####[facility] LABCLIA [id number] [place] [address] Chloride [Moles/Vol] 101 mmol/L Normal 97-105 [facility] Comment on above: Order Comment: Speci men Type: BLOOD SPECIMENOrdering Facility: [facility] Address: [address] [place] [address] Performed By: #### 2 4323-8 ####[facility] LABCLIA [id number] [place] [address] CO2 [Moles/Vol] 28 mmol/L Normal 22-30 [facility] Comment on above: Order Comment: Speci men Type: BLOOD SPECIMENOrdering Facility: [facility] Address: [address] [place] [address] Performed By: #### 2 4323-8 ####[facility] LABCLIA [id number] [place] [address] Creatinine [Mass/Vol] 0.80 mg/dL Normal 0.58-0.96 [facility] Comment on above: Order Comment: Speci men Type: BLOOD SPECIMENOrdering Facility: [facility] Address: [address] [place] [address] Performed By: #### 2 4323-8 ####[facility] LABCLIA [id number] [place] [address] Creatinine and Glomerular filtration rate.predicted panel (S/P/Bld) 85 mL/min/1.73m??? Normal >=60 [facility] Comment on above: Order Comment: Speci men Type: BLOOD SPECIMENOrdering Facility: [facility] Address: [address] [place] [address] Result Comment: Audrey mated Glomerular Filtration Rate (eGFR) is calculated using the 2020 CKD-EPI creatinine equation. This equation utilizes serum creatinine, sex, and age as parameters. The creatinine assay has traceable calibration to isotope dilution-mass spectrometry. Refer to KDIGO guidelines for clinical interpretation. In patients with unstable renal function, e.g. those with acute kidney injury, the eGFR may not accurately reflect actual GFR. Performed By: #### 2 4323-8 ####[facility] LABCLIA [id number] [place] [address] Glucose [Mass/Vol] 93 mg/dL Normal 74-99 [facility] Comment on above: Order Comment: Speci men Type: BLOOD SPECIMENOrdering Facility: [facility] Address: [address] [place] [address] Result Comment: The [place] [employer] (ADA) provides guidance for cutoff values for fasting glucose and random glucose. The ADA defines fasting as no caloric intake for at least 8 hours. Fasting plasma glucose results between 100 to 125 mg/dL indicate increased risk for diabetes (prediabetes).Fasting plasma glucose results greater than or equal to 126 mg/dL meet the criteria for diagnosis of diabetes. In the absence of unequivocal hyperglycemia, results should be confirmed by repeat testing. In a patient with classic symptoms of hyperglycemia or hyperglycemic crisis, random plasma glucose results greater than or equal to 200 mg/dL meet the criteria for diagnosis of diabetes.Reference: Standards of Medical Care in Diabetes 2016, [place] [employer]. Diabetes Care. 2016.39(Suppl 1). Performed By: #### 2 4323-8 ####[facility] LABCLIA [id number] [place] [address] Potassium [Moles/Vol] 4.0 mmol/L Normal 3.7-5.1 [facility] Comment on above: Order Comment: Speci men Type: BLOOD SPECIMENOrdering Facility: [facility] Address: [address] [place] [address] Performed By: #### 2 4323-8 ####[facility] LABCLIA [id number] [place] [address] Protein [Mass/Vol] 6.2 g/dL Low 6.3-8.0 [facility] Comment on above: Order Comment: Speci men Type: BLOOD SPECIMENOrdering Facility: [facility] Address: [address] [place], [place] [address] Performed By: #### 2 4323-8 ####[facility] LABCLIA [id number] [place] [address] Sodium [Moles/Vol] 136 mmol/L Normal 136-144 [facility] Comment on above: Order Comment: Speci men Type: BLOOD SPECIMENOrdering Facility: [facility] Address: [address] [place] [address] Performed By: #### 2 4323-8 ####[facility] LABCLIA [id number] [place] [address] Urea nitrogen [Mass/Vol] 14 mg/dL Normal 7-21 [facility] Comment on above: Order Comment: Speci men Type: BLOOD SPECIMENOrdering Facility: [facility] Address: [address] [place] [address] Performed By: #### 2 4323-8 ####[facility] LABCLIA [id number] [place] [address] TSH SerPl-aCncon 06-20-2023 TSH Qn 1.930 m[IU]/L Normal 0.270-4.200 [facility] Comment on above: Order Comment: Speci men Type: BLOOD SPECIMENOrdering Facility: [facility] Address: [address] [place] [address] Performed By: #### 3 016-3 ####[facility] LABCLIA [id number] [place] [id number] [place] CNPNon 06-16-2023 CNPN Normal [facility] CNPNon 06-15-2023 CNPN Normal [facility] PET+CT Guidance for localiza tion of tumor of Skull base to mid-thigh-- W 18F-FDG Jaz 06-15-2023 IMPRESSION: HEAD/NECK: * No FDG avid neoplastic process. CHEST: * No FDG avid neoplastic process. ABDOMEN/PELVIS: * No FDG avid neoplastic process. MUSCULOSKELETAL: * No FDG avid neoplastic process. Transcribe Date/Time: Jun 15 2023 9:40A Dictated by: ANABELA RHODES MD This examination was interpreted and the report reviewed and electronically signed by: ANABELA RHODES MD on Jun 15 2023 9:55AM EST Thank you for allowing us to participate in the care of your patient. Should there be any questions regarding this interpretation, please call [phone]. If you are unable to reach us at the number above, please feel free to contact [facility] eRadiology at [phone]. DIVISION OF RADIOLOGY * * *Final Report* * * DATE OF EXAM: Jun 14 2023 1:01PM NRN [id number] - NM PET/CT SKULL-THIGH SUBQ / PROCEDURE REASON: multiple diagnoses * * * * Physician Interpretation * * * * RESULT: EXAMINATION: BODY FDG PET-CT CLINICAL HISTORY: Lung cancer. For follow-up evaluation INDICATION: Subsequent treatment strategy. TECHNIQUE: Radiopharmaceutical was administered IV followed about 60 minutes later by PET imaging from eyes to proximal thighs. Free breathing, low dose CT of the same body region was acquired without IV contrast for attenuation correction and anatomic localization. * CT Dose-Length Product (DLP): 100 mGy*cm * CT Dose Reduction Employed: Yes * Blood glucose (mg/dL): 132 * Radiopharmaceutical Dose: 6.9 mCi * Radiopharmaceutical: [id number] (FDG) COMPARISON: FDG PET/CT 03/01/2023 CORRELATION: No relevant imaging available RESULT: REFERENCES: SUV reference values: * Background liver activity: SUVmax 1.8; SUVmean 1.5 [employer] (topogram) images: No additional findings. Notes and limitations: * Standardized uptake values indicate the highest activity concentration (SUVmax) at a given location but can be variable and are not absolute. * Physiologic/non-neoplastic uptake is common in the brain, extraocular muscles, oral cavity, tonsils, salivary glands, vocal cords, myocardium, liver, GI tract, urinary tract, and bone marrow among others. Certain regions and organ systems can have more intense uptake, which could confound or obscure some pathology. * Unenhanced imaging is limited for the evaluation of some pathology and the acquired CT was not designed to produce or replace diagnostic CT scan quality. * PET-CT is often not sensitive for pulmonary nodules less than 8 mm. HEAD AND NECK: Imaged Head: No abnormal uptake. Neck & Lymph Nodes: No abnormal uptake. Thyroid: No abnormal uptake. CHEST: Lungs & Airways: No abnormal uptake. Unchanged posttreatment changes in the right perihilar region. Resolved prior nodule in the lingula. Pleura & Pericardium: No abnormal uptake. Cardiovascular: No abnormal uptake. Mediastinum & Lymph Nodes: No abnormal uptake. ABDOMEN AND PELVIS: Hepatobiliary: No abnormal uptake. Spleen: No abnormal uptake. Pancreas: No abnormal uptake. Adrenals: No abnormal uptake. Urinary Tract: No abnormal uptake. GI Tract: No abnormal uptake. Peritoneum: No abnormal uptake. Vasculature: No abnormal uptake. Retroperitoneum & Lymph Nodes: No abnormal uptake. Pelvis: No abnormal uptake. MUSCULOSKELETAL: Osseous: No abnormal uptake. Soft Tissues: No abnormal uptake. DIVISION OF RADIOLOGY Provider, [facility] - 06/15/2023 * * *Final Report* * * DATE OF EXAM: Jun 14 2023 1:01PM NRN [id number] - NM PET/CT SKULL-THIGH SUBQ / PROCEDURE REASON: multiple diagnoses * * * * Physician Interpretation * * * * RESULT: EXAMINATION: BODY FDG PET-CT CLINICAL HISTORY: Lung cancer. For follow-up evaluation INDICATION: Subsequent treatment strategy. TECHNIQUE: Radiopharmaceutical was administered IV followed about 60 minutes later by PET imaging from eyes to proximal thighs. Free breathing, low dose CT of the same body region was acquired without IV contrast for attenuation correction and anatomic localization. * CT Dose-Length Product (DLP): 100 mGy*cm * CT Dose Reduction Employed: Yes * Blood glucose (mg/dL): 132 * Radiopharmaceutical Dose: 6.9 mCi * Radiopharmaceutical: [id number]-[id number] (FDG) COMPARISON: FDG PET/CT 03/01/2023 CORRELATION: No relevant imaging available RESULT: REFERENCES: SUV reference values: * Background liver activity: SUVmax 1.8; SUVmean 1.5 [employer] (topogram) images: No additional findings. Notes and limitations: * Standardized uptake values indicate the highest activity concentration (SUVmax) at a given location but can be variable and are not absolute. * Physiologic/non-neoplastic uptake is common in the brain, extraocular muscles, oral cavity, tonsils, salivary glands, vocal cords, myocardium, liver, GI tract, urinary tract, and bone marrow among others. Certain regions and organ systems can have more intense uptake, which could confound or obscure some pathology. * Unenhanced imaging is limited for the evaluation of some pathology and the acquired CT was not designed to produce or replace diagnostic CT scan quality. * PET-CT is often not sensitive for pulmonary nodules less than 8 mm. HEAD AND NECK: Imaged Head: No abnormal uptake. Neck & Lymph Nodes: No abnormal uptake. Thyroid: No abnormal uptake. CHEST: Lungs & Airways: No abnormal uptake. Unchanged posttreatment changes in the right perihilar region. Resolved prior nodule in the lingula. Pleura & Pericardium: No abnormal uptake. Cardiovascular: No abnormal uptake. Mediastinum & Lymph Nodes: No abnormal uptake. ABDOMEN AND PELVIS: Hepatobiliary: No abnormal uptake. Spleen: No abnormal uptake. Pancreas: No abnormal uptake. Adrenals: No abnormal uptake. Urinary Tract: No abnormal uptake. GI Tract: No abnormal uptake. Peritoneum: No abnormal uptake. Vasculature: No abnormal uptake. Retroperitoneum & Lymph Nodes: No abnormal uptake. Pelvis: No abnormal uptake. MUSCULOSKELETAL: Osseous: No abnormal uptake. Soft Tissues: No abnormal uptake. IMPRESSION IMPRESSION: HEAD/NECK: * No FDG avid neoplastic process. CHEST: * No FDG avid neoplastic process. ABDOMEN/PELVIS: * No FDG avid neoplastic process. MUSCULOSKELETAL: * No FDG avid neoplastic process. Transcribe Date/Time: Jun 15 2023 9:40A Dictated by: ANABELA RHODES MD This examination was interpreted and the report reviewed and electronically signed by: ANABELA RHODES MD on Jun 15 2023 9:55AM EST Thank you for allowing us to participate in the care of your patient. Should there be any questions regarding this interpretation, please call [phone]. If you are unable to reach us at the number above, please feel free to contact [facility]Radiology at [phone]. [facility] PET+CT Guidance for localiza tion of tumor of Skull base to mid-thigh-- W 18F-FDG IVOrdered By: [facility]cf Provider on 06-15-2023 [facility] GLUCOSE, BLOOD (POC)on 06-13 Glucose [Mass/Vol] 132 mg/dL Abnormal 74 - 99 mg/dL [facility] Comment on above: Location:[facility], [address] [place] [address] , [place], [place], [address] The Accu-Chek Inform II glucose meter has not been approved for testing on patients receiving intensive medical intervention or therapy and results from this point of care glucose test should not be used for patient management decisions in these cases. Inaccurate results may also occur from other interfering factors, such as N-acetylcysteine (blood concentrations of greater than 5mg/dL), galactose, extremes of hematocrit (<10 or >65), or high doses of ascorbic acid (vitamin C) greater than 3mg/dL. Consider alternate testing mechanisms (e.g. core lab, blood gas instrument) in the above situations. Interpretation and review of laboratory results Abnormal [facility] NM PET/CT SKULL-THIGH SUBQon 06-14-2023 NM PET/CT SKULL-THIGH SUBQ Normal [facility] PET+CT Guidance for localiza tion of tumor of Skull base to mid-thigh-- W 18F-FDG Jaz 06-14-2023 Radiology Study observation (narrative) [facility] CBC W Auto Differential pane l (Bld)on 05-30-2023 Basophils (Bld) [#/Vol] 0.03 10*3/uL Normal <0.11 [facility] Comment on above: Order Comment: Speci men Type: BLOOD SPECIMENOrdering Facility: [facility] Address: [address] [place] [address] Performed By: #### 5 7021-8 ####[facility] LABCLIA [id number] [place] [address] Basophils/100 WBC (Bld) 0.4 % Normal [facility] Comment on above: Order Comment: Speci men Type: BLOOD SPECIMENOrdering Facility: [facility] Address: [address] [place] [address] Performed By: #### 5 7021-8 ####[facility] LABCLIA [id number] [place] [address] Differential cell count method Nom (Bld) Auto Normal [facility] Comment on above: Order Comment: Speci men Type: BLOOD SPECIMENOrdering Facility: [facility] Address: [address] [place] [address] Performed By: #### 5 7021-8 ####[facility] LABCLIA [id number] [place] [address] Eosinophils (Bld) [#/Vol] 0.08 10*3/uL Normal <0.46 [facility] Comment on above: Order Comment: Speci men Type: BLOOD SPECIMENOrdering Facility: [facility] Address: [address] [place] [address] Performed By: #### 5 7021-8 ####[facility] LABCLIA [id number] [place] [address] Eosinophils/100 WBC (Bld) 1.1 % Normal [facility] Comment on above: Order Comment: Speci men Type: BLOOD SPECIMENOrdering Facility: [facility] Address: [address] [place] [address] Performed By: #### 5 7021-8 ####[facility] LABIA [id number] [place] [address] Erythrocyte distribution width (RBC) [Ratio] 13.0 % Normal 11.5-15.0 [facility] Comment on above: Order Comment: Speci men Type: BLOOD SPECIMENOrdering Facility: [facility] Address: [address] [place] [address] Performed By: #### 5 7021-8 ####[facility] LABCLIA [id number] [place] [address] Hematocrit (Bld) [Volume fraction] 38.9 % Normal 36.0-46.0 [facility] Comment on above: Order Comment: Speci men Type: BLOOD SPECIMENOrdering Facility: [facility] Address: [address] [place] [address] Performed By: #### 5 7021-8 ####[facility] LABIA [id number] [place] [address] Hemoglobin (Bld) [Mass/Vol] 12.9 g/dL Normal 11.5-15.5 [facility] Comment on above: Order Comment: Speci men Type: BLOOD SPECIMENOrdering Facility: [facility] Address: [address] [place] [address] Performed By: #### 5 7021-8 ####[facility] LABCLIA [id number] [place] [address] Immature granulocytes (Bld) [#/Vol] 0.04 10*3/uL Normal <0.10 [facility] Comment on above: Order Comment: Speci men Type: BLOOD SPECIMENOrdering Facility: [facility] Address: [address] [place] [address] Performed By: #### 5 7021-8 ####[facility] LABCLIA [id number] [place] [address] Immature granulocytes/100 WBC (Bld) 0.6 % Normal [facility] Comment on above: Order Comment: Speci men Type: BLOOD SPECIMENOrdering Facility: [facility] Address: [address] [place] [address] Performed By: #### 5 7021-8 ####[facility] LABCLIA [id number] [place] [address] Lymphocytes (Bld) [#/Vol] 1.21 10*3/uL Normal 1.00-4.00 [facility] Comment on above: Order Comment: Speci men Type: BLOOD SPECIMENOrdering Facility: [facility] Address: [address] [place] [address] Performed By: #### 5 7021-8 ####[facility] LABCLIA [id number] [place] [address] Lymphocytes/100 WBC (Bld) 17.0 % Normal [facility] Comment on above: Order Comment: Speci men Type: BLOOD SPECIMENOrdering Facility: [facility] Address: [address] [place] [address] Performed By: #### 5 7021-8 ####[facility] LABCLIA [id number] [place] [address] MCH (RBC) [Entitic mass] 35.8 pg High 26.0-34.0 [facility] Comment on above: Order Comment: Speci men Type: BLOOD SPECIMENOrdering Facility: [facility] Address: [address] [place] [address] Performed By: #### 5 7021-8 ####[facility] LABCLIA [id number] [place] [address] MCHC (RBC) [Mass/Vol] 33.2 g/dL Normal 30.5-36.0 [facility] Comment on above: Order Comment: Speci men Type: BLOOD SPECIMENOrdering Facility: [facility] Address: [address] [place] [address] Performed By: #### 5 7021-8 ####[facility] LABCLIA [id number] [place] [address] MCV (RBC) [Entitic vol] 108.1 fL High 80.0-100.0 [facility] Comment on above: Order Comment: Speci men Type: BLOOD SPECIMENOrdering Facility: [facility] Address: [address] [place] [address] Performed By: #### 5 7021-8 ####[facility] LABCLIA [id number] [place] [address] Monocytes (Bld) [#/Vol] 0.61 10*3/uL Normal <0.87 [facility] Comment on above: Order Comment: Speci men Type: BLOOD SPECIMENOrdering Facility: [facility] Address: [address] [place] [address] Performed By: #### 5 7021-8 ####[facility] LABCLIA [id number] [place] [address] Monocytes/100 WBC (Bld) 8.6 % Normal [facility] Comment on above: Order Comment: Speci men Type: BLOOD SPECIMENOrdering Facility: [facility] Address: [address] [place] [address] Performed By: #### 5 7021-8 ####[facility] LABCLIA [id number] [place] [address] Neutrophils (Bld) [#/Vol] 5.15 10*3/uL Normal 1.45-7.50 [facility] Comment on above: Order Comment: Speci men Type: BLOOD SPECIMENOrdering Facility: [facility] Address: [address] [place] [address] Performed By: #### 5 7021-8 ####[facility] LABCLIA [id number] [place] [address] Neutrophils/100 WBC (Bld) 72.3 % Normal [facility] Comment on above: Order Comment: Speci men Type: BLOOD SPECIMENOrdering Facility: [facility] Address: [address] [place] [address] Performed By: #### 5 7021-8 ####[facility] LABCLIA [id number] [place] [address] Nucleated RBC (Bld) [#/Vol] 10*3/uL Normal <0.01 [facility] Comment on above: Order Comment: Speci men Type: BLOOD SPECIMENOrdering Facility: [facility] Address: [address] [place] [address] Performed By: #### 5 7021-8 ####[facility] LABCLIA [id number] [place] [address] Nucleated RBC/100 WBC (Bld) [Ratio] 0.0 /100 WBC Normal [facility] Comment on above: Order Comment: Speci men Type: BLOOD SPECIMENOrdering Facility: [facility] Address: [address] [place] [address] Performed By: #### 5 7021-8 ####[facility] LABCLIA [id number] [place] [address] Platelet mean volume (Bld) [Entitic vol] 9.3 fL Normal 9.0-12.7 [facility] Comment on above: Order Comment: Speci men Type: BLOOD SPECIMENOrdering Facility: [facility] Address: [address] [place] [address] Performed By: #### 5 7021-8 ####[facility] LABIA [id number] [place] [address] Platelets (Bld) [#/Vol] 162 10*3/uL Normal 150-400 [facility] Comment on above: Order Comment: Speci men Type: BLOOD SPECIMENOrdering Facility: [facility] Address: [address] [place] [address] Performed By: #### 5 7021-8 ####[facility] LABIA [id number] [place] [address] RBC (Bld) [#/Vol] 3.60 10*6/uL Low 3.90-5.20 [facility] Comment on above: Order Comment: Speci men Type: BLOOD SPECIMENOrdering Facility: [facility] Address: [address] [place] [address] Performed By: #### 5 7021-8 ####[facility] LABIA [id number] [place] [address] WBC (Bld) [#/Vol] 7.12 10*3/uL Normal 3.70-11.00 [facility] Comment on above: Order Comment: Speci men Type: BLOOD SPECIMENOrdering Facility: [facility] Address: [address] [place] [address] Performed By: #### 5 7021-8 ####[facility] LABIA [id number] [place] [address] CNOVSPon 05-30-2023 CNOVSP Normal [facility] metabolic 2000 panelon 05-30-2023 Albumin [Mass/Vol] 4.0 g/dL Normal 3.9-4.9 [facility] Comment on above: Order Comment: Speci men Type: BLOOD SPECIMENOrdering Facility: [facility] Address: [address] [place] [address] Performed By: #### 2 4323-8 ####[facility] LABCLIA [id number] [place] [address] ALP [Catalytic activity/Vol] 133 U/L High 34-123 [facility] Comment on above: Order Comment: Speci men Type: BLOOD SPECIMENOrdering Facility: [facility] Address: [address] [place] [address] Performed By: #### 2 4323-8 ####[facility] LABCLIA [id number] [place] [address] ALT [Catalytic activity/Vol] 8 U/L Normal 7-38 [facility] Comment on above: Order Comment: Speci men Type: BLOOD SPECIMENOrdering Facility: [facility] Address: [address] [place] [address] Performed By: #### 2 4323-8 ####[facility] LABCLIA [id number] [place] [address] Anion gap [Moles/Vol] 8 mmol/L Low 9-18 [facility] Comment on above: Order Comment: Speci men Type: BLOOD SPECIMENOrdering Facility: [facility] Address: [address] [place] [address] Performed By: #### 2 4323-8 ####[facility] LABCLIA [id number] [place] [address] AST [Catalytic activity/Vol] 14 U/L Normal 13-35 [facility] Comment on above: Order Comment: Speci men Type: BLOOD SPECIMENOrdering Facility: [facility] Address: [address] [place] [address] Performed By: #### 2 4323-8 ####[facility] LABCLIA [id number] [place] [address] Bilirubin [Mass/Vol] 0.3 mg/dL Normal 0.2-1.3 [facility] Comment on above: Order Comment: Speci men Type: BLOOD SPECIMENOrdering Facility: [facility] Address: [address] [place], [place] [address] Performed By: #### 2 4323-8 ####[facility] LABCLIA [id number] [place] [address] Calcium [Mass/Vol] 9.4 mg/dL Normal 8.5-10.2 [facility] Comment on above: Order Comment: Speci men Type: BLOOD SPECIMENOrdering Facility: [facility] Address: [address] [place] [address] Performed By: #### 2 4323-8 ####[facility] LABCLIA [id number] [place] [address] Chloride [Moles/Vol] 100 mmol/L Normal 97-105 [facility] Comment on above: Order Comment: Speci men Type: BLOOD SPECIMENOrdering Facility: [facility] Address: [address] [place] [address] Performed By: #### 2 4323-8 ####[facility] LABCLIA [id number] [place] [address] CO2 [Moles/Vol] 26 mmol/L Normal 22-30 [facility] Comment on above: Order Comment: Speci men Type: BLOOD SPECIMENOrdering Facility: [facility] Address: [address] [place] [address] Performed By: #### 2 4323-8 ####[facility] LABCLIA [id number] [place] [address] Creatinine [Mass/Vol] 0.67 mg/dL Normal 0.58-0.96 [facility] Comment on above: Order Comment: Speci men Type: BLOOD SPECIMENOrdering Facility: [facility] Address: [address] [place], [place] [address] Performed By: #### 2 4323-8 ####[facility] LABCLIA [id number] [place] [address] Creatinine and Glomerular filtration rate.predicted panel (S/P/Bld) 101 mL/min/1.73m??? Normal >=60 [facility] Comment on above: Order Comment: Sheryl epperson Type: BLOOD SPECIMENOrdering Facility: [facility] Address: [address] [place] [address] Result Comment: Audrey mated Glomerular Filtration Rate (eGFR) is calculated using the 2020 CKD-EPI creatinine equation. This equation utilizes serum creatinine, sex, and age as parameters. The creatinine assay has traceable calibration to isotope dilution-mass spectrometry. Refer to KDIGO guidelines for clinical interpretation. In patients with unstable renal function, e.g. those with acute kidney injury, the eGFR may not accurately reflect actual GFR. Performed By: #### 2 4323-8 ####[facility] LABCLIA [id number] [place] [address] Glucose [Mass/Vol] 118 mg/dL High 74-99 [facility] Comment on above: Order Comment: Sheryl epperson Type: BLOOD SPECIMENOrdering Facility: [facility] Address: [address] [place] [address] Result Comment: The [place] Diabetes [employer] (ADA) provides guidance for cutoff values for fasting glucose and random glucose. The ADA defines fasting as no caloric intake for at least 8 hours. Fasting plasma glucose results between 100 to 125 mg/dL indicate increased risk for diabetes (prediabetes).Fasting plasma glucose results greater than or equal to 126 mg/dL meet the criteria for diagnosis of diabetes. In the absence of unequivocal hyperglycemia, results should be confirmed by repeat testing. In a patient with classic symptoms of hyperglycemia or hyperglycemic crisis, random plasma glucose results greater than or equal to 200 mg/dL meet the criteria for diagnosis of diabetes.Reference: Standards of Medical Care in Diabetes 2016, [place] [employer]. Diabetes Care. 2016.39(Suppl 1). Performed By: #### 2 4323-8 ####[facility] LABCLIA [id number] [place] [address] Potassium [Moles/Vol] 3.6 mmol/L Low 3.7-5.1 [facility] Comment on above: Order Comment: Speci men Type: BLOOD SPECIMENOrdering Facility: [facility] Address: [address] [place] [address] Performed By: #### 2 4323-8 ####[facility] LABCLIA [id number] [place] [address] Protein [Mass/Vol] 6.3 g/dL Normal 6.3-8.0 [facility] Comment on above: Order Comment: Speci men Type: BLOOD SPECIMENOrdering Facility: [facility] Address: [address] [place] [address] Performed By: #### 2 4323-8 ####[facility] LABCLIA [id number] [place] [address] Sodium [Moles/Vol] 134 mmol/L Low 136-144 [facility] Comment on above: Order Comment: Speci men Type: BLOOD SPECIMENOrdering Facility: [facility] Address: [address] [place] [address] Performed By: #### 2 4323-8 ####[facility] LABCLIA [id number] [place] [address] Urea nitrogen [Mass/Vol] 10 mg/dL Normal 7-21 [facility] Comment on above: Order Comment: Speci men Type: BLOOD SPECIMENOrdering Facility: [facility] Address: [address] [place] [address] Performed By: #### 2 4323-8 ####[facility] LABCLIA [id number] [place] [address] TSH SerPl-aCncon 05-30-2023 TSH Qn 2.640 m[IU]/L Normal 0.270-4.200 [facility] Comment on above: Order Comment: Speci men Type: BLOOD SPECIMENOrdering Facility: [facility] Address: [address] [place] [address] Performed By: #### 3 016-3 ####[facility] LABCLIA [id number] [facility] [id number] [id number] [place] CBC W Auto Differential pane l (Bld)on 05-09-2023 Basophils (Bld) [#/Vol] 0.03 10*3/uL Normal <0.11 [facility] Comment on above: Order Comment: Speci men Type: BLOOD SPECIMENOrdering Facility: [facility] Address: [address] [place] [address] Performed By: #### 5 7021-8 ####[facility] LABCLIA [id number] [place] [address] Basophils/100 WBC (Bld) 0.4 % Normal [facility] Comment on above: Order Comment: Speci men Type: BLOOD SPECIMENOrdering Facility: [facility] Address: [address] [place] [address] Performed By: #### 5 7021-8 ####[facility] LABCLIA [id number] [place] [address] Differential cell count method Nom (Bld) Auto Normal [facility] Comment on above: Order Comment: Speci men Type: BLOOD SPECIMENOrdering Facility: [facility] Address: [address] [place] [address] Performed By: #### 5 7021-8 ####[facility] LABCLIA [id number] [place] [address] Eosinophils (Bld) [#/Vol] 0.20 10*3/uL Normal <0.46 [facility] Comment on above: Order Comment: Speci men Type: BLOOD SPECIMENOrdering Facility: [facility] Address: [address] [place] [address] Performed By: #### 5 7021-8 ####[facility] LABCLIA [id number] [place] [address] Eosinophils/100 WBC (Bld) 3.0 % Normal [facility] Comment on above: Order Comment: Speci men Type: BLOOD SPECIMENOrdering Facility: [facility] Address: [address] [place] [address] Performed By: #### 5 7021-8 ####[facility] LABCLIA [id number] [place] [address] Erythrocyte distribution width (RBC) [Ratio] 12.1 % Normal 11.5-15.0 [facility] Comment on above: Order Comment: Speci men Type: BLOOD SPECIMENOrdering Facility: [facility] Address: [address] [place] [address] Performed By: #### 5 7021-8 ####[facility] LABIA [id number] [place] [address] Hematocrit (Bld) [Volume fraction] 37.5 % Normal 36.0-46.0 [facility] Comment on above: Order Comment: Speci men Type: BLOOD SPECIMENOrdering Facility: [facility] Address: [address] [place] [address] Performed By: #### 5 7021-8 ####[facility] LABIA [id number] [place] [address] Hemoglobin (Bld) [Mass/Vol] 12.5 g/dL Normal 11.5-15.5 [facility] Comment on above: Order Comment: Speci men Type: BLOOD SPECIMENOrdering Facility: [facility] Address: [address] [place] [address] Performed By: #### 5 7021-8 ####[facility] LABIA [id number] [place] [address] Immature granulocytes (Bld) [#/Vol] 0.03 10*3/uL Normal <0.10 [facility] Comment on above: Order Comment: Speci men Type: BLOOD SPECIMENOrdering Facility: [facility] Address: [address] [place] [address] Performed By: #### 5 7021-8 ####[facility] LABIA [id number] [place] [address] Immature granulocytes/100 WBC (Bld) 0.4 % Normal [facility] Comment on above: Order Comment: Speci men Type: BLOOD SPECIMENOrdering Facility: [facility] Address: [address] [place] [address] Performed By: #### 5 7021-8 ####[facility] LABCLIA [id number] [place] [address] Lymphocytes (Bld) [#/Vol] 1.54 10*3/uL Normal 1.00-4.00 [facility] Comment on above: Order Comment: Speci men Type: BLOOD SPECIMENOrdering Facility: [facility] Address: [address] [place] [address] Performed By: #### 5 7021-8 ####[facility] LABCLIA [id number] [place] [address] Lymphocytes/100 WBC (Bld) 23.1 % Normal [facility] Comment on above: Order Comment: Speci men Type: BLOOD SPECIMENOrdering Facility: [facility] Address: [address] [place] [address] Performed By: #### 5 7021-8 ####[facility] LABCLIA [id number] [place] [address] MCH (RBC) [Entitic mass] 36.3 pg High 26.0-34.0 [facility] Comment on above: Order Comment: Speci men Type: BLOOD SPECIMENOrdering Facility: [facility] Address: [address] [place] [address] Performed By: #### 5 7021-8 ####[facility] LABCLIA [id number] [place] [address] MCHC (RBC) [Mass/Vol] 33.3 g/dL Normal 30.5-36.0 [facility] Comment on above: Order Comment: Speci men Type: BLOOD SPECIMENOrdering Facility: [facility] Address: [address] [place] [address] Performed By: #### 5 7021-8 ####[facility] LABCLIA [id number] [place] [address] MCV (RBC) [Entitic vol] 109.0 fL High 80.0-100.0 [facility] Comment on above: Order Comment: Speci men Type: BLOOD SPECIMENOrdering Facility: [facility] Address: [address] [place] [address] Performed By: #### 5 7021-8 ####[facility] LABCLIA [id number] [place] [address] Monocytes (Bld) [#/Vol] 0.85 10*3/uL Normal <0.87 [facility] Comment on above: Order Comment: Speci men Type: BLOOD SPECIMENOrdering Facility: [facility] Address: [address] [place] [address] Performed By: #### 5 7021-8 ####[facility] LABCLIA [id number] [place] [address] Monocytes/100 WBC (Bld) 12.7 % Normal [facility] Comment on above: Order Comment: Speci men Type: BLOOD SPECIMENOrdering Facility: [facility] Address: [address] [place] [address] Performed By: #### 5 7021-8 ####[facility] LABCLIA [id number] [place] [address] Neutrophils (Bld) [#/Vol] 4.02 10*3/uL Normal 1.45-7.50 [facility] Comment on above: Order Comment: Speci men Type: BLOOD SPECIMENOrdering Facility: [facility] Address: [address] [place] [address] Performed By: #### 5 7021-8 ####[facility] LABCLIA [id number] [place] [address] Neutrophils/100 WBC (Bld) 60.4 % Normal [facility] Comment on above: Order Comment: Speci men Type: BLOOD SPECIMENOrdering Facility: [facility] Address: [address] [place] [address] Performed By: #### 5 7021-8 ####[facility] LABCLIA [id number] [place] [address] Nucleated RBC (Bld) [#/Vol] 10*3/uL Normal <0.01 [facility] Comment on above: Order Comment: Speci men Type: BLOOD SPECIMENOrdering Facility: [facility] Address: [address] [place] [address] Performed By: #### 5 7021-8 ####[facility] LABCLIA [id number] [place] [address] Nucleated RBC/100 WBC (Bld) [Ratio] 0.0 /100 WBC Normal [facility] Comment on above: Order Comment: Speci men Type: BLOOD SPECIMENOrdering Facility: [facility] Address: [address] [place] [address] Performed By: #### 5 7021-8 ####[facility] LABCLIA [id number] [place] [address] Platelet mean volume (Bld) [Entitic vol] 9.1 fL Normal 9.0-12.7 [facility] Comment on above: Order Comment: Speci men Type: BLOOD SPECIMENOrdering Facility: [facility] Address: [address] [place] [address] Performed By: #### 5 7021-8 ####[facility] LABCLIA [id number] [place] [address] Platelets (Bld) [#/Vol] 197 10*3/uL Normal 150-400 [facility] Comment on above: Order Comment: Speci men Type: BLOOD SPECIMENOrdering Facility: [facility] Address: [address] [place] [address] Performed By: #### 5 7021-8 ####[facility] LABCLIA [id number] [place] [address] RBC (Bld) [#/Vol] 3.44 10*6/uL Low 3.90-5.20 [facility] Comment on above: Order Comment: Speci men Type: BLOOD SPECIMENOrdering Facility: [facility] Address: [address] [place] [address] Performed By: #### 5 7021-8 ####[facility] LABIA [id number] [place] [address] WBC (Bld) [#/Vol] 6.67 10*3/uL Normal 3.70-11.00 [facility] Comment on above: Order Comment: Speci men Type: BLOOD SPECIMENOrdering Facility: [facility] Address: [address] [place] [address] Performed By: #### 5 7021-8 ####[facility] [id number] [place] [address] CNOVSPon 05-09-2023 CNOVSP Normal [facility] Comprehensive metabolic 2000 panelon 05-09-2023 Albumin [Mass/Vol] 4.2 g/dL Normal 3.9-4.9 [facility] Comment on above: Order Comment: Speci men Type: BLOOD SPECIMENOrdering Facility: [facility] Address: [address] [place] [address] Performed By: #### 2 4323-8 ####[facility] LABIA [id number] [place] [address] ALP [Catalytic activity/Vol] 128 U/L High 34-123 [facility] Comment on above: Order Comment: Speci men Type: BLOOD SPECIMENOrdering Facility: [facility] Address: [address] [place] [address] Performed By: #### 2 4323-8 ####[facility] LABCLIA [id number] [place] [address] ALT [Catalytic activity/Vol] 7 U/L Normal 7-38 [facility] Comment on above: Order Comment: Speci men Type: BLOOD SPECIMENOrdering Facility: [facility] Address: [address] [place] [address] Performed By: #### 2 4323-8 ####[facility] LABCLIA [id number] [place] [address] Anion gap [Moles/Vol] 8 mmol/L Low 9-18 [facility] Comment on above: Order Comment: Speci men Type: BLOOD SPECIMENOrdering Facility: [facility] Address: [address] [place] [address] Performed By: #### 2 4323-8 ####[facility] LABCLIA [id number] [place] [address] AST [Catalytic activity/Vol] 12 U/L Low 13-35 [facility] Comment on above: Order Comment: Speci men Type: BLOOD SPECIMENOrdering Facility: [facility] Address: [address] [place] [address] Performed By: #### 2 4323-8 ####[facility] LABCLIA [id number] [place] [address] Bilirubin [Mass/Vol] 0.2 mg/dL Normal 0.2-1.3 [facility] Comment on above: Order Comment: Speci men Type: BLOOD SPECIMENOrdering Facility: [facility] Address: [address] [place] [address] Performed By: #### 2 4323-8 ####[facility] LABCLIA [id number] [place] [address] Calcium [Mass/Vol] 9.4 mg/dL Normal 8.5-10.2 [facility] Comment on above: Order Comment: Speci men Type: BLOOD SPECIMENOrdering Facility: [facility] Address: [address] [place] [address] Performed By: #### 2 4323-8 ####[facility] LABCLIA [id number] [place] [address] Chloride [Moles/Vol] 101 mmol/L Normal 97-105 [facility] Comment on above: Order Comment: Speci men Type: BLOOD SPECIMENOrdering Facility: [facility] Address: [address] [place] [address] Performed By: #### 2 4323-8 ####[facility] LABCLIA [id number] [place] [address] CO2 [Moles/Vol] 28 mmol/L Normal 22-30 [facility] Comment on above: Order Comment: Speci men Type: BLOOD SPECIMENOrdering Facility: [facility] Address: [address] [place] [address] Performed By: #### 2 4323-8 ####[facility] LABCLIA [id number] [place] [address] Creatinine [Mass/Vol] 0.79 mg/dL Normal 0.58-0.96 [facility] Comment on above: Order Comment: Speci men Type: BLOOD SPECIMENOrdering Facility: [facility] Address: [address] [place] [address] Performed By: #### 2 4323-8 ####[facility] LABCLIA [id number] [place] [address] Creatinine and Glomerular filtration rate.predicted panel (S/P/Bld) 86 mL/min/1.73m??? Normal >=60 [facility] Comment on above: Order Comment: Speci men Type: BLOOD SPECIMENOrdering Facility: [facility] Address: [address] [place] [address] Result Comment: Audrey mated Glomerular Filtration Rate (eGFR) is calculated using the 2020 CKD-EPI creatinine equation. This equation utilizes serum creatinine, sex, and age as parameters. The creatinine assay has traceable calibration to isotope dilution-mass spectrometry. Refer to KDIGO guidelines for clinical interpretation. In patients with unstable renal function, e.g. those with acute kidney injury, the eGFR may not accurately reflect actual GFR. Performed By: #### 2 4323-8 ####[facility] LABCLIA [id number] [place] [address] Glucose [Mass/Vol] 88 mg/dL Normal 74-99 [facility] Comment on above: Order Comment: Speci men Type: BLOOD SPECIMENOrdering Facility: [facility] Address: [address] [place] [address] Result Comment: The [place] Diabetes [employer] (ADA) provides guidance for cutoff values for fasting glucose and random glucose. The ADA defines fasting as no caloric intake for at least 8 hours. Fasting plasma glucose results between 100 to 125 mg/dL indicate increased risk for diabetes (prediabetes).Fasting plasma glucose results greater than or equal to 126 mg/dL meet the criteria for diagnosis of diabetes. In the absence of unequivocal hyperglycemia, results should be confirmed by repeat testing. In a patient with classic symptoms of hyperglycemia or hyperglycemic crisis, random plasma glucose results greater than or equal to 200 mg/dL meet the criteria for diagnosis of diabetes.Reference: Standards of Medical Care in Diabetes 2016, [place] Diabetes Association. Diabetes Care. 2016.39(Suppl 1). Performed By: #### 2 4323-8 ####[facility] LABCLIA [id number] [place] [address] Potassium [Moles/Vol] 4.5 mmol/L Normal 3.7-5.1 [facility] Comment on above: Order Comment: Speci men Type: BLOOD SPECIMENOrdering Facility: [facility] Address: [address] [place] [address] Performed By: #### 2 4323-8 ####[facility] LABCLIA [id number] [place] [address] Protein [Mass/Vol] 6.6 g/dL Normal 6.3-8.0 [facility] Comment on above: Order Comment: Speci men Type: BLOOD SPECIMENOrdering Facility: [facility] Address: [address] [place], [place] [id number] Performed By: #### 2 4323-8 ####[facility] LABCLIA [id number] [place] [address] Sodium [Moles/Vol] 137 mmol/L Normal 136-144 [facility] Comment on above: Order Comment: Speci men Type: BLOOD SPECIMENOrdering Facility: [facility] Address: [facility] [place] [address] Performed By: #### 2 4323-8 ####[facility] LABCLIA [id number] [place] [address] Urea nitrogen [Mass/Vol] 16 mg/dL Normal 7-21 [facility] Comment on above: Order Comment: Speci men Type: BLOOD SPECIMENOrdering Facility: [facility] Address: [address] [place], [place] [address] [address] Performed By: #### 2 4323-8 ####[facility] LABCLIA [id number] [place] [address] TSH SerPl-aCncon 05-09-2023 TSH Qn 2.000 m[IU]/L Normal 0.270-4.200 [facility] Comment on above: Order Comment: Speci men Type: BLOOD SPECIMENOrdering Facility: [facility] Address: 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 HEAD and NECK: No evidence of focal uptake to suggest FDG avid neoplastic process.. 2. CHEST: Status post resection of FDG avid nodules in the lingula and right lower lobe with residual inflammatory changes. Recommend follow-up with CT to rule out residual disease. 3. ABDOMEN/PELVIS: No evidence of focal uptake to suggest FDG avid neoplastic process.. 4. EXTREMITIES/SKELETON: No evidence of focal uptake to suggest FDG avid neoplastic process.. Transcribe Date/Time: Mar 02 2023 2:10P Dictated by: DIANNA PARKS MD This examination was interpreted and the report reviewed and electronically signed by: DIANNA PARKS MD on Mar 02 2023 2:23PM EST Thank you for allowing us to participate in the care of your patient. Should there be any questions regarding this interpretation, please call [phone]. If you are unable to reach us at the number above, please feel free to contact [facility] at [phone]. 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 INDICATION: Initial treatment strategy. TECHNIQUE: PET-CT scan: Approximately 60 minutes following the IV administration of 6.3mCi of F-18 FDG), PET and non contrast CT images were acquired from the skull base through proximal thigh. PET images were reconstructed with and without attenuation correction using attenuation coefficients. The blood glucose level before FDG injection is 107 mg/dL CT Radiation dose: Integrated Dose-length product (DLP) for this visit = 99 mGy*cm. CT Dose Reduction Employed: Automatic exposure control used (AED) COMPARISON: FDG PET-CT: 01/02/2023 CORRELATION: CT of the chest, abdomen and pelvis None. RESULTS: Liver SUV max 2.2 Mediastinal blood pool SUV max 1.6 Topogram review: Unremarkable, no acute findings. No retained foreign body. Head and Neck: No evidence of focal uptake to suggest FDG avid neoplastic process in the limited scanned region. No FDG avid cervical lymphadenopathy.. No significant anatomical abnormality to the limits of low dose noncontrast CT scan. Chest: No FDG avid axillary, mediastinal, or hilar lymphadenopathy.. Interval resolution of the FDG avid nodules in the lingula with residual mild linear uptake with SUV max 1.1 with adjacent tree-in-bud change. Right lower lobe FDG avid nodularity has occurred. Mild linear uptake at the location of the resection with SUV max 2.0 likely inflammatory. Likely post treatment changes in the right upper lobe again seen with mild uptake. No significant anatomical abnormality to the limits of low dose noncontrast CT scan. Abdomen and Pelvis: No evidence of focal uptake to suggest FDG avid neoplastic process. No FDG avid mesenteric, retroperitoneal, pelvic, or inguinal lymphadenopathy. Status post cholecystectomy No significant anatomical abnormality to the limits of low dose noncontrast CT scan. Extremities/Skeleton: No evidence of focal uptake to suggest FDG avid neoplastic process. No suspicious osseous lesions. Degenerative changes present. No significant anatomical abnormality to the limits of low dose noncontrast CT scan. 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 INDICATION: Initial treatment strategy. TECHNIQUE: PET-CT scan: Approximately 60 minutes following the IV administration of 6.3mCi of F-18 FDG), PET and non contrast CT images were acquired from the skull base through proximal thigh. PET images were reconstructed with and without attenuation correction using attenuation coefficients. The blood glucose level before FDG injection is 107 mg/dL CT Radiation dose: Integrated Dose-length product (DLP) for this visit = 99 mGy*cm. CT Dose Reduction Employed: Automatic exposure control used (AED) COMPARISON: FDG PET-CT: 01/02/2023 CORRELATION: CT of the chest, abdomen and pelvis None. RESULTS: Liver SUV max 2.2 Mediastinal blood pool SUV max 1.6 Topogram review: Unremarkable, no acute findings. No retained foreign body. Head and Neck: No evidence of focal uptake to suggest FDG avid neoplastic process in the limited scanned region. No FDG avid cervical lymphadenopathy.. No significant anatomical abnormality to the limits of low dose noncontrast CT scan. Chest: No FDG avid axillary, mediastinal, or hilar lymphadenopathy.. Interval resolution of the FDG avid nodules in the lingula with residual mild linear uptake with SUV max 1.1 with adjacent tree-in-bud change. Right lower lobe FDG avid nodularity has occurred. Mild linear uptake at the location of the resection with SUV max 2.0 likely inflammatory. Likely post treatment changes in the right upper lobe again seen with mild uptake. No significant anatomical abnormality to the limits of low dose noncontrast CT scan. Abdomen and Pelvis: No evidence of focal uptake to suggest FDG avid neoplastic process. No FDG avid mesenteric, retroperitoneal, pelvic, or inguinal lymphadenopathy. Status post cholecystectomy No significant anatomical abnormality to the limits of low dose noncontrast CT scan. Extremities/Skeleton: No evidence of focal uptake to suggest FDG avid neoplastic process. No suspicious osseous lesions. Degenerative changes present. No significant anatomical abnormality to the limits of low dose noncontrast CT scan. IMPRESSION IMPRESSION: 1. HEAD and NECK: No evidence of focal uptake to suggest FDG avid neoplastic process.. 2. CHEST: Status post resection of FDG avid nodules in the lingula and right lower lobe with residual inflammatory changes. Recommend follow-up with CT to rule out residual disease. 3. ABDOMEN/PELVIS: No evidence of focal uptake to suggest FDG avid neoplastic process.. 4. EXTREMITIES/SKELETON: No evidence of focal uptake to suggest FDG avid neoplastic process.. Transcribe Date/Time: Mar 02 2023 2:10P Dictated by: DIANNA PARKS MD This examination was interpreted and the report reviewed and electronically signed by: DIANNA PARKS MD on Mar 02 2023 2:23PM EST Thank you for allowing us to participate in the care of your patient. Should there be any questions regarding this interpretation, please call [phone]. If you are unable to reach us at the number above, please feel free to contact [facility]Radiology at [phone]. 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 Inaccurate results may also occur from other interfering factors, such as N-acetylcysteine (blood concentrations of greater than 5mg/dL), galactose, extremes of hematocrit (<10 or >65), or high doses of ascorbic acid (vitamin C) greater than 3mg/dL. Consider alternate testing mechanisms (e.g. core lab, blood gas instrument) in the above situations. Interpretation and review of laboratory results Abnormal [facility] PET+CT Guidance for localiza tion of tumor of Skull base to mid-thigh-- W 18F-FDG Jaz 03-01-2023 Radiology Study observation (narrative) [facility] CBC W Auto Differential pane l (Bld)on 01-04-2023 Basophils (Bld) [#/Vol] 0.04 10*3/uL <0.11 k/uL [facility] Basophils/100 WBC (Bld) 0.5 % [facility] Differential cell count method Nom (Bld) Auto [facility] Eosinophils (Bld) [#/Vol] 0.12 10*3/uL <0.46 k/uL [facility] Eosinophils/100 WBC (Bld) 1.4 % [facility] Erythrocyte distribution width (RBC) [Ratio] 14.0 % 11.5 - 15.0 % [facility] Hematocrit (Bld) [Volume fraction] 33.7 % Low 36.0 - 46.0 % [facility] Hemoglobin (Bld) [Mass/Vol] 10.5 g/dL Low 11.5 - 15.5 g/dL [facility] Immature granulocytes (Bld) [#/Vol] 0.08 10*3/uL <0.10 k/uL [facility] Immature granulocytes/100 WBC (Bld) 0.9 % [facility] Lymphocytes (Bld) [#/Vol] 1.74 10*3/uL 1.00 - 4.00 k/uL [facility] Lymphocytes/100 WBC (Bld) 20.4 % [facility] MCH (RBC) [Entitic mass] 37.0 pg High 26.0 - 34.0 pg [facility] MCHC (RBC) [Mass/Vol] 31.2 g/dL 30.5 - 36.0 g/dL [facility] MCV (RBC) [Entitic vol] 118.7 fL High 80.0 - 100.0 fL [facility] Monocytes (Bld) [#/Vol] 0.97 10*3/uL High <0.87 k/uL [facility] Monocytes/100 WBC (Bld) 11.4 % [facility] Neutrophils (Bld) [#/Vol] 5.57 10*3/uL 1.45 - 7.50 k/uL [facility] Neutrophils/100 WBC (Bld) 65.4 % [facility] Nucleated RBC (Bld) [#/Vol] <0.01 k/uL [facility] Nucleated RBC/100 WBC (Bld) [Ratio] 0.0 /100 WBC [facility] Platelet mean volume (Bld) [Entitic vol] 9.1 fL 9.0 - 12.7 fL [facility] Platelets (Bld) [#/Vol] 199 10*3/uL 150 - 400 k/uL [facility] RBC (Bld) [#/Vol] 2.84 10*6/uL Low 3.90 - 5.2 0 m/uL [facility] WBC (Bld) [#/Vol] 8.52 10*3/uL 3.70 - 11.00 k/uL [facility] Comprehensive metabolic 2000 panelon 01-04-2023 Albumin [Mass/Vol] 3.6 g/dL Low 3.9 - 4.9 g/dL [facility] ALP [Catalytic activity/Vol] 127 U/L High 34 - 123 U/L [facility] ALT [Catalytic activity/Vol] 6 U/L Low 7 - 38 U/L [facility] Anion gap [Moles/Vol] 4 mmol/L Low 9 - 18 mmol/L [facility] AST [Catalytic activity/Vol] 13 U/L 13 - 35 U/L [facility] Bilirubin [Mass/Vol] 0.2 mg/dL 0.2 - 1 .3 mg/dL [facility] Calcium [Mass/Vol] 8.8 mg/dL 8.5 - 10. 2 mg/dL [facility] Chloride [Moles/Vol] 106 mmol/L High 97 - 10 5 mmol/L [facility] CO2 [Moles/Vol] 27 mmol/L 22 - 30 mmol/L [facility] Creatinine [Mass/Vol] 0.64 mg/dL 0.58 - 0.96 mg/dL [facility] Estimated Glomerular Filtration Rate 102 mL/min/1.73m >=60 mL/min/1.73 m [facility] Glucose [Mass/Vol] 122 mg/dL High 74 - 99 mg/dL [facility] Potassium [Moles/Vol] 3.8 mmol/L 3.7 - 5.1 mmol/L [facility] Protein [Mass/Vol] 5.8 g/dL Low 6.3 - 8.0 g/dL [facility] Sodium [Moles/Vol] 137 mmol/L 136 - 144 mmol/L [facility] Urea nitrogen [Mass/Vol] 14 mg/dL 7 - 21 mg/dL [facility] PET+CT Guidance for localiza tion of tumor of Skull base to mid-thigh-- W 18F-FDG Jaz 01-03-2023 IMPRESSION: HEAD/NECK: * No FDG avid neoplastic process. CHEST: * Enlarging FDG avid lingular nodule, bronchoscopy proven adenocarcinoma * FDG avid left mediastinal lymph nodes, likely metastatic * Postoperative changes right lower lobe wedge resection. Uptake near the site of resection, likely related to posttherapy changes and healing. Attention on follow-up CT scan of the chest. * Stable posttreatment changes within right upper lobe ABDOMEN/PELVIS: * No FDG avid neoplastic process. BONES/EXTREMITIES: * New focus of FDG uptake in right gluteal musculature, concerning for metastasis * No suspicious FDG avid osseous lesion. Transcribe Date/Time: Jan 03 2023 10:07A Dictated by: NICOLASA VANG MD This examination was interpreted and the report reviewed and electronically signed by: SAY BUNDY MD on Jan 03 2023 12:45PM EST Thank you for allowing us to participate in the care of your patient. Should there be any questions regarding this interpretation, please call [phone]. If you are unable to reach us at the number above, please feel free to contact [facility] at [phone]. DIVISION OF RADIOLOGY * * *Final Report* * * DATE OF EXAM: Jan 02 2023 3:16PM NRN [id number] - NM PET/CT SKULL-THIGH INIT / PROCEDURE REASON: Neoplasm of lung * * * * Physician Interpretation * * * * RESULT: EXAM: NM PET/CT SKULL-THIGH INIT HISTORY: 57 year old with Neoplasm of lung. 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 Right lower lobe wedge resection 11/15/2022, pathology: adenocarcinoma INDICATION: Initial treatment strategy TECHNIQUE: 7.2 mCi of F18-FDG administered IV followed about 60 minutes later by PET imaging from eyes to proximal thighs. Free breathing low dose CT was performed without contrast for attenuation correction and anatomic localization. - Blood glucose before FDG injection: 90 CT Dose-Length Product (DLP): 85 mGy*cm CT Dose Reduction Employed: Automated exposure control (AEC) COMPARISON: 07/15/2022, 07/18/2019 CORRELATION: Chest CT 10/31/2022 RESULTS: REFERENCES: SUV reference values: - Mediastinal blood pool activity (max SUV): 1.2 - Background liver activity (max SUV): 1.7 [employer] (topogram) images: No additional findings. HEAD AND NECK: Physiologic uptake in the visualized brain, extraocular muscles, parapharyngeal soft tissues, base of tongue, salivary glands, and vocal cords. Imaged Head: No focal tracer avid lesion. Lymph nodes: No tracer avid lymph nodes. Thyroid: No tracer avid lesion. CHEST: Lungs & Airways: Bilateral lesions/nodules: - Right lower lobe wedge resection. Ill-defined peripheral right lower lobe bandlike opacity with adjacent pleural thickening (4:124), maximum SUV 5.5. A well-defined nodule was present in this area on chest CT 10/31/2022 - 1.7 x 1.2 cm lingular nodule with maximum SUV 5.4 (4:130), previously 0.8 x 0.6 cm with maximum SUV 2.5 - 0.5 cm left lower lobe superior segment subpleural nodule (4:85), non-FDG avid - 0.5 cm left lower lobe nodule in the medial aspect (4:102), non-FDG avid - Opacities extending from the right hilum to the pleura with low-level FDG uptake, in keeping with posttreatment change. Morphology is unchanged from 07/15/2022 -Please note, PET/CT is not sensitive for pulmonary nodules less than than 8 mm. Pleura: Pleural thickening associated with right lower lobe bandlike opacity described above. No pleural effusion. Mediastinum: No tracer avid mass. Lymph Nodes: Small FDG avid nodes are new from 07/15/2022 - 0.6 cm in short axis left lower paratracheal node with maximum SUV 4.0 (4:93) - 0.7 cm in short axis AP window node with maximum SUV 4.6 (4:95) Cardiovascular: Physiologic blood pool and myocardial activity. Atherosclerotic calcification without thoracic aortic aneurysm. Chest Wall: No tracer avid lesion. ABDOMEN AND PELVIS: Physiologic activity in the GI and tracts. Liver: No tracer avid lesion. Biliary: Cholecystectomy. Spleen: No tracer avid lesion. No splenomegaly. Pancreas: No tracer avid lesion. Adrenals: No tracer avid lesion. Kidneys: No focal tracer avid lesion. GI Tract: No focal tracer avid lesion. Lymph Nodes: No tracer avid lymph nodes. Mesentery/Peritoneum: No tracer avid lesion. No ascites. Retroperitoneum: No tracer avid lesion. Vasculature: Atherosclerotic calcifications without an abdominal aortic aneurysm. Pelvis: No tracer avid lesion. Abdominal Wall: No tracer avid lesion. BONES AND EXTREMITIES: Generalized low level FDG uptake throughout the subcutaneous tissues likely physiologic New focus of FDG uptake in the right gluteal musculature with maximum SUV 5.6 (4:237) Focal FDG uptake along external right rib 9 (4:134). No obvious underlying rib deformity. Generalized muscular FDG uptake in the left shoulder extending from the coracoid process and within the right obturator externus, possibly physiologic or due to strain No tracer avid lesion or suspicious osseous lesion. Multifocal degenerative osseous changes. DIVISION OF RADIOLOGY Provider, [facility] - 01/03/2023 * * *Final Report* * * DATE OF EXAM: Jan 02 2023 3:16PM NRN [id number] - NM PET/CT SKULL-THIGH INIT / PROCEDURE REASON: Neoplasm of lung * * * * Physician Interpretation * * * * RESULT: EXAM: NM PET/CT SKULL-THIGH INIT HISTORY: 57 year old with Neoplasm of lung. 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 Right lower lobe wedge resection 11/15/2022, pathology: adenocarcinoma INDICATION: Initial treatment strategy TECHNIQUE: 7.2 mCi of F18-FDG administered IV followed about 60 minutes later by PET imaging from eyes to proximal thighs. Free breathing low dose CT was performed without contrast for attenuation correction and anatomic localization. - Blood glucose before FDG injection: 90 CT Dose-Length Product (DLP): 85 mGy*cm CT Dose Reduction Employed: Automated exposure control (AEC) COMPARISON: 07/15/2022, 07/18/2019 CORRELATION: Chest CT 10/31/2022 RESULTS: REFERENCES: SUV reference values: - Mediastinal blood pool activity (max SUV): 1.2 - Background liver activity (max SUV): 1.7 [employer] (topogram) images: No additional findings. HEAD AND NECK: Physiologic uptake in the visualized brain, extraocular muscles, parapharyngeal soft tissues, base of tongue, salivary glands, and vocal cords. Imaged Head: No focal tracer avid lesion. Lymph nodes: No tracer avid lymph nodes. Thyroid: No tracer avid lesion. CHEST: Lungs & Airways: Bilateral lesions/nodules: - Right lower lobe wedge resection. Ill-defined peripheral right lower lobe bandlike opacity with adjacent pleural thickening (4:124), maximum SUV 5.5. A well-defined nodule was present in this area on chest CT 10/31/2022 - 1.7 x 1.2 cm lingular nodule with maximum SUV 5.4 (4:130), previously 0.8 x 0.6 cm with maximum SUV 2.5 - 0.5 cm left lower lobe superior segment subpleural nodule (4:85), non-FDG avid - 0.5 cm left lower lobe nodule in the medial aspect (4:102), non-FDG avid - Opacities extending from the right hilum to the pleura with low-level FDG uptake, in keeping with posttreatment change. Morphology is unchanged from 07/15/2022 -Please note, PET/CT is not sensitive for pulmonary nodules less than than 8 mm. Pleura: Pleural thickening associated with right lower lobe bandlike opacity described above. No pleural effusion. Mediastinum: No tracer avid mass. Lymph Nodes: Small FDG avid nodes are new from 07/15/2022 - 0.6 cm in short axis left lower paratracheal node with maximum SUV 4.0 (4:93) - 0.7 cm in short axis AP window node with maximum SUV 4.6 (4:95) Cardiovascular: Physiologic blood pool and myocardial activity. Atherosclerotic calcification without thoracic aortic aneurysm. Chest Wall: No tracer avid lesion. ABDOMEN AND PELVIS: Physiologic activity in the GI and tracts. Liver: No tracer avid lesion. Biliary: Cholecystectomy. Spleen: No tracer avid lesion. No splenomegaly. Pancreas: No tracer avid lesion. Adrenals: No tracer avid lesion. Kidneys: No focal tracer avid lesion. GI Tract: No focal tracer avid lesion. Lymph Nodes: No tracer avid lymph nodes. Mesentery/Peritoneum: No tracer avid lesion. No ascites. Retroperitoneum: No tracer avid lesion. Vasculature: Atherosclerotic calcifications without an abdominal aortic aneurysm. Pelvis: No tracer avid lesion. Abdominal Wall: No tracer avid lesion. BONES AND EXTREMITIES: Generalized low level FDG uptake throughout the subcutaneous tissues likely physiologic New focus of FDG uptake in the right gluteal musculature with maximum SUV 5.6 (4:237) Focal FDG uptake along external right rib 9 (4:134). No obvious underlying rib deformity. Generalized muscular FDG uptake in the left shoulder extending from the coracoid process and within the right obturator externus, possibly physiologic or due to strain No tracer avid lesion or suspicious osseous lesion. Multifocal degenerative osseous changes. IMPRESSION IMPRESSION: HEAD/NECK: * No FDG avid neoplastic process. CHEST: * Enlarging FDG avid lingular nodule, bronchoscopy proven adenocarcinoma * FDG avid left mediastinal lymph nodes, likely metastatic * Postoperative changes right lower lobe wedge resection. Uptake near the site of resection, likely related to posttherapy changes and healing. Attention on follow-up CT scan of the chest. * Stable posttreatment changes within right upper lobe ABDOMEN/PELVIS: * No FDG avid neoplastic process. BONES/EXTREMITIES: * New focus of FDG uptake in right gluteal musculature, concerning for metastasis * No suspicious FDG avid osseous lesion. Transcribe Date/Time: Jan 03 2023 10:07A Dictated by: (more content not included)... [facility] PET+CT Guidance for localiza tion of tumor of Skull base to mid-thigh-- W 18F-FDG IVOrdered By: Ccf Provider on 01-03-2023 [facility] GLUCOSE, BLOOD (POC)on 01-02 Glucose [Mass/Vol] 90 mg/dL 74 - 99 mg/dL [facility] Comment on above: Location:[facility], [address] [place] [address] , [place], [place], [address] The Accu-Chek Inform II glucose meter has not been approved for testing on patients receiving intensive medical intervention or therapy and results from this point of care glucose test should not be used for patient management decisions in these cases. Inaccurate results may also occur from other interfering factors, such as N-acetylcysteine (blood concentrations of greater than 5mg/dL), galactose, extremes of hematocrit (<10 or >65), or high doses of ascorbic acid (vitamin C) greater than 3mg/dL. Consider alternate testing mechanisms (e.g. core lab, blood gas instrument) in the above situations. [facility] PET+CT Guidance for localiza tion of tumor of Skull base to mid-thigh-- W 18F-FDG Jaz 01-02-2023 Radiology Study observation (narrative) [facility] XR Chest PA and Lateralon IMPRESSION: See result. Transcribed Using Voice Recognition Transcribe Date/Time: Nov 24 2022 9:39A Dictated by: AMBER BELTRAN MD This examination was interpreted and the report reviewed and electronically signed by: AMBER BELTRAN MD on Nov 24 2022 9:42AM [facility] RADIOLOGY * * *Final Report* * * DATE OF EXAM: Nov 23 2022 12:59PM [id number] [id number] - XR CHEST 2V FRONTAL/LAT / PROCEDURE REASON: Malignant neoplasm of lower lobe of right lung (HCC) * * * * Physician Interpretation * * * * RESULT: EXAMINATION: CHEST RADIOGRAPH (2 VIEW FRONTAL & LATERAL) CLINICAL HISTORY: Malignant neoplasm of lower lobe of right lung (HCC) MQ: XC2_6 EXAM DATE/TIME: 11/23/2022 12:59 PM COMPARISON: Chest radiograph dated 11/16/2022 RESULT: Lines, tubes, and devices: None. Lungs and pleura: Hyperinflated lungs. Postsurgical changes of right lower lobe wedge resection with mild thickening/scarring along the surgical staple line, likely postoperative in nature. Stable nodular opacity in projection of the left lower lung zone, better evaluated on a recent chest CT. Redemonstration of an irregularly marginated opacity in the RIGHT suprahilar region, likely representing treated neoplastic disease with post radiation fibrosis. New linear opacity in the lateral right upper lung zone, likely to represent atelectases/scarring. No substantial pleural effusions or large pneumothorax is identified. Cardiomediastinal silhouette: Stable cardiomediastinal silhouette. Bones and soft tissues: Surgical clips are present in the upper abdomen. [facility] RADIOLOGY Provider, Margret desir [place] - 11/24/2022 * * *Final Report* * * DATE OF EXAM: Nov 23 2022 12:59PM HMX [id number] - XR CHEST 2V FRONTAL/LAT / PROCEDURE REASON: Malignant neoplasm of lower lobe of right lung (HCC) * * * * Physician Interpretation * * * * RESULT: EXAMINATION: CHEST RADIOGRAPH (2 VIEW FRONTAL & LATERAL) CLINICAL HISTORY: Malignant neoplasm of lower lobe of right lung (HCC) MQ: XC2_6 EXAM DATE/TIME: 11/23/2022 12:59 PM COMPARISON: Chest radiograph dated 11/16/2022 RESULT: Lines, tubes, and devices: None. Lungs and pleura: Hyperinflated lungs. Postsurgical changes of right lower lobe wedge resection with mild thickening/scarring along the surgical staple line, likely postoperative in nature. Stable nodular opacity in projection of the left lower lung zone, better evaluated on a recent chest CT. Redemonstration of an irregularly marginated opacity in the RIGHT suprahilar region, likely representing treated neoplastic disease with post radiation fibrosis. New linear opacity in the lateral right upper lung zone, likely to represent atelectases/scarring. No substantial pleural effusions or large pneumothorax is identified. Cardiomediastinal silhouette: Stable cardiomediastinal silhouette. Bones and soft tissues: Surgical clips are present in the upper abdomen. IMPRESSION IMPRESSION: See result. Transcribed Using Voice Recognition Transcribe Date/Time: Nov 24 2022 9:39A Dictated by: AMBER BELTRAN MD This examination was interpreted and the report reviewed and electronically signed by: AMBER BELTRAN MD on Nov 24 2022 9:42AM EST [facility] XR Chest PA and LateralOrder ed By: Ccf Provider on 11-24-2022 [facility] CNOVon 11-23-2022 CNOV Office Visit ([place] ) DEBBY HERMOSILLO ([id number]) 1965 F Date Time Provider Department 11/23/22 1:00 PM JOSE RAFAEL FERNANDES During your visit today, we recorded the following information about you: Temperature Pulse Respiration Blood pressure 96.9 degrees 112/minute 18/minute 152/84 Weight Height 36.2 kg 1.524 m Jose Rafael Fernandes APRN.[employer] 11/23/2022 4:18 PM Signed [facility] - OUTPATIENT THORACIC SURGERY CLINIC NOTE PT NAME: Debby Hermosillo [facility] NO: [id number] THORACIC SURGEON: Mina Walden M.D. DATE OF SERVICE: 11/23/2022 PRINCIPAL DX: Adenocarcinoma of RLL of Lung SURGICAL HX 11/15/2022: Video assisted thoracoscopic surgery, right lower lobe wedge resection lung, mediastinal lymph node sampling, intercostal nerve block Surgical Pathology: Pending REASON FOR VISIT: First post-operative visit HPI: Debby Hermosillo is a 57 year old female current smoker (67.5 ppy Hx; down to 4 cigarettes/day) with PMH of Stage II combined small cell and SCC of the RUL treated with 5 cycles of carboplatin and topside combined with radiation back in 2018 referred by Stacy Adhikari MD for an opinion regarding management of RLL lung nodule. In June 2022, patient underwent CT scan that demonstrated 8mm TAM nodular opacity increased in size since March 2022 as well as new mild reticulonodular opacities in the RLL. PET/CT scan done 07/2022 revealed two solid nodules in the lingula and RLL have increased since last CT 06/23 and a hypermetabolic nodule in the TAM suspicious for neoplasm. EBUS done 08/10 was positive for adenocarcinoma in the lingula nodule and lymph node 4L. Brain MRI was unremarkable. Patient was presented to tumor board, with recommendation of diagnostic wedge resection vs IR biopsy of RLL lesion, with understanding that wedge will be advised if non diagnostic. On 11/15/2022, patient underwent Video assisted thoracoscopic surgery, right lower lobe wedge resection lung, mediastinal lymph node sampling, intercostal nerve block. Postoperative course was unremarkable and she was discharged home POD #1. Since Discharge: Debby Hermosillo presents to clinic today for first postoperative visit. She has been doing well. She denies any fevers, chills, night sweats. Patient only notes pain at old chest tube site suture. She has resumed her [employer] suboxone. Denies any SOB, lightheadedness, or dizziness. Notes productive cough every once in a while, with clear sputum. Notes nausea, but denies any vomiting. Reports poor appetite. Starting to get better the past couple of days. Notes regular BMs. Incisions are healing well and suture is removed. We have discussed increasing aerobic activity daily, as well as maintaining weight restriction of 5-10 lbs for the first month after surgery. We have also discussed no driving while on narcotics. Imaging: CXR 11/23/2022: Pending PHYSICAL EXAM: VITAL SIGNS: BP 152/84 (BP Site: Left Arm, BP Position: Sitting, BP Cuff Size: Small Adult) Pulse 112 Temp 36.1 ?C (96.9 ?F) (Temporal) Resp 18 Ht 152.4 cm (5') Wt 36.2 kg (79 lb 11.2 oz) SpO2 99% BMI 15.57 kg/m? Room air General appearance: Well appearing, alert, in no acute distress, thin Skin: Skin color, texture, turgor normal, no suspicious rashes or lesions Lungs: Lungs clear to auscultation. No wheezing, rhonchi, rales Heart: RRR without murmur, gallop, or rubs. No ectopy Abdomen: Abdomen soft, non-tender. Bowel sounds normal. Extremities: No deformities, edema, skin discoloration, clubbing or cyanosis. Musculoskeletal: No joint swelling, deformity, or tenderness Neuro: Gait normal. Sensation grossly intact. 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 She is s/p video assisted thoracoscopic surgery, right lower lobe wedge resection lung, mediastinal lymph node sampling, intercostal nerve block on 11/15/[address] Walden. Overall doing well from a surgical standpoint. CXR from today is still pending; to my eye, shows well expanded lungs. Final pathology is still pending. PLAN: - Will call patient with pathology results once in - Oncology management with Dr. Larkin - Encourage coughing, deep breathing, using IS, and increasing aerobic activity as tolerated Jose Rafael Fernandes APRN, CNP Allergies As of Date: 11/23/2022 Noted Allergy Reaction PENICILLINS 01/12/2017 16 - Unknown Date Reviewed: 11/23/2022 Reviewed by: Arabella Holly (more content not included)... [facility] XR CHEST 2V FRONTAL/LATon XR CHEST 2V FRONTAL/LAT * * *Final Report* * * DATE OF EXAM: Nov 23 2022 12:59PM HMX [id number] - XR CHEST 2V FRONTAL/LAT / PROCEDURE REASON: Malignant neoplasm of lower lobe of right lung (HCC) * * * * Physician Interpretation * * * * RESULT: EXAMINATION: CHEST RADIOGRAPH (2 VIEW FRONTAL and LATERAL) CLINICAL HISTORY: Malignant neoplasm of lower lobe of right lung (HCC) MQ: XC2_6 EXAM DATE/TIME: 11/23/2022 12:59 PM COMPARISON: Chest radiograph dated 11/16/2022 RESULT: Lines, tubes, and devices: None. Lungs and pleura: Hyperinflated lungs. Postsurgical changes of right lower lobe wedge resection with mild thickening/scarring along the surgical staple line, likely postoperative in nature. Stable nodular opacity in projection of the left lower lung zone, better evaluated on a recent chest CT. Redemonstration of an irregularly marginated opacity in the RIGHT suprahilar region, likely representing treated neoplastic disease with post radiation fibrosis. New linear opacity in the lateral right upper lung zone, likely to represent atelectases/scarring. No substantial pleural effusions or large pneumothorax is identified. Cardiomediastinal silhouette: Stable cardiomediastinal silhouette. Bones and soft tissues: Surgical clips are present in the upper abdomen. IMPRESSION: See result. Transcribed Using Voice Recognition Transcribe Date/Time: Nov 24 2022 9:39A Dictated by: AMBER BELTRAN MD This examination was interpreted and the report reviewed and electronically signed by: AMBER BELTRAN MD on Nov 24 2022 9:42AM EST [id number] [facility] XR Chest PA and Lateralon Radiology Study observation (narrative) [facility] NM CARDIAC PERF STRESS/EXERC ISEon 11-11-[address] [facility] [address] Chest W contrast Jaz IMPRESSION: 1. Interval increase in size of lingular and right lower lobe nodules, again concerning for neoplasm. 2. Newly appearing 0.6 cm nodule in the left lower lobe which may be infectious/inflammatory or neoplastic in nature. Recommend continued attention to this area on follow-up exams. Stable 0.6 cm nodule in the superior segment of the left lower lobe. 3. No evidence of intrathoracic adenopathy. Transcribe Date/Time: Oct 31 2022 9:30A Dictated by: ALE AKERS MD This examination was interpreted and the report reviewed and electronically signed by: ALE AKERS MD on Oct 31 2022 9:56AM EST Thank you for allowing us to participate in the care of your patient. Should there be any questions regarding this interpretation, please call [phone]. If you are unable to reach us at the number above, please feel free to contact [facility] eRadiology at [phone]. DIVISION OF RADIOLOGY * * *Final Report* * * DATE OF EXAM: Oct 31 2022 9:23AM [facility] 0539 - CT CHEST W IVCON / PROCEDURE REASON: multiple diagnoses * * * * Physician Interpretation * * * * RESULT: EXAMINATION: CHEST CT WITH CONTRAST CLINICAL HISTORY: History of lung cancer. Technique: Spiral CT acquisition of the chest from the thoracic inlet to the upper abdomen following IV contrast. MQ: CTCW_6 Contrast: 50 mL Omnipaque [address] Radiation dose: Integrated Dose-length product (DLP) for this visit = 118 mGy*cm CT Dose Reduction Employed: Automated exposure control (AEC) Comparison: CT performed 08/05/2022 RESULT: Limitations: None. Lines, tubes, and devices: None. Lung parenchyma and airways: There is mild centrilobular and paraseptal emphysema. Biapical pleural-parenchymal scarring is also noted. There is stable right upper lobe/right suprahilar masslike consolidative opacity (4:65) measuring approximately 3.7 x 3 cm, similar to prior exam. Findings are again in keeping with treated neoplasm status post radiation therapy. The previously described lingular nodule (3:137) has increased in size, now measuring approximately 1.2 x 1.2 cm, previously approximately 1 x 0.7 cm. There is also an enlarging nodular opacity in the right lower lobe (4:121) measuring 1 x 0.9 cm, previously 0.7 x 0.5 cm. There is a stable 0.6 cm nodular opacity in the superior segment of the left lower lobe (4:59). There is a new 0.6 cm nodule in the medial left lower lobe (4:90). Mild bronchial wall thickening is again visualized. The central airways are widely patent. Pleural space: No pleural effusion. No pleural thickening. Lower neck, lymph nodes, and mediastinum: The imaged thyroid gland is normal. No lymphadenopathy in the supraclavicular, axillary, mediastinal, or hilar regions. Heart, pericardium, and thoracic vessels: The thoracic aorta and main pulmonary artery are normal in caliber. The cardiac chambers are normal in size. Coronary artery atherosclerotic calcification is noted. No pericardial effusion or thickening. Bones and soft tissues: No destructive bone lesion. Chest wall is unremarkable. Upper abdomen: No abnormality in the imaged upper abdomen. [employer] (topogram) images: No additional findings. DIVISION OF RADIOLOGY Provider, [facility] - 10/31/2022 * * *Final Report* * * DATE OF EXAM: Oct 31 2022 9:23AM [facility] 0539 - CT CHEST W IVCON / PROCEDURE REASON: multiple diagnoses * * * * Physician Interpretation * * * * RESULT: EXAMINATION: CHEST CT WITH CONTRAST CLINICAL HISTORY: History of lung cancer. Technique: Spiral CT acquisition of the chest from the thoracic inlet to the upper abdomen following IV contrast. MQ: CTCW_6 Contrast: 50 mL Omnipaque [address] Radiation dose: Integrated Dose-length product (DLP) for this visit = 118 mGy*cm CT Dose Reduction Employed: Automated exposure control (AEC) Comparison: CT performed 08/05/2022 RESULT: Limitations: None. Lines, tubes, and devices: None. Lung parenchyma and airways: There is mild centrilobular and paraseptal emphysema. Biapical pleural-parenchymal scarring is also noted. There is stable right upper lobe/right suprahilar masslike consolidative opacity (4:65) measuring approximately 3.7 x 3 cm, similar to prior exam. Findings are again in keeping with treated neoplasm status post radiation therapy. The previously described lingular nodule (3:137) has increased in size, now measuring approximately 1.2 x 1.2 cm, previously approximately 1 x 0.7 cm. There is also an enlarging nodular opacity in the right lower lobe (4:121) measuring 1 x 0.9 cm, previously 0.7 x 0.5 cm. There is a stable 0.6 cm nodular opacity in the superior segment of the left lower lobe (4:59). There is a new 0.6 cm nodule in the medial left lower lobe (4:90). Mild bronchial wall thickening is again visualized. The central airways are widely patent. Pleural space: No pleural effusion. No pleural thickening. Lower neck, lymph nodes, and mediastinum: The imaged thyroid gland is normal. No lymphadenopathy in the supraclavicular, axillary, mediastinal, or hilar regions. Heart, pericardium, and thoracic vessels: The thoracic aorta and main pulmonary artery are normal in caliber. The cardiac chambers are normal in size. Coronary artery atherosclerotic calcification is noted. No pericardial effusion or thickening. Bones and soft tissues: No destructive bone lesion. Chest wall is unremarkable. Upper abdomen: No abnormality in the imaged upper abdomen. [employer] (topogram) images: No additional findings. IMPRESSION IMPRESSION: 1. Interval increase in size of lingular and right lower lobe nodules, again concerning for neoplasm. 2. Newly appearing 0.6 cm nodule in the left lower lobe which may be infectious/inflammatory or neoplastic in nature. Recommend continued attention to this area on follow-up exams. Stable 0.6 cm nodule in the superior segment of the left lower lobe. 3. No evidence of intrathoracic adenopathy. Transcribe Date/Time: Oct 31 2022 9:30A Dictated by: ALE AKERS MD This examination was interpreted and the report reviewed and electronically signed by: ALE AKERS MD on Oct 31 2022 9:56AM EST Thank you for allowing us to participate in the care of your patient. Should there be any questions regarding this interpretation, please call [phone]. If you are unable to reach us at the number above, please feel free to contact [facility] eRadiology at [phone]. [facility] Radiology Study observation (narrative) [facility] CT Chest W contrast IVOrdere d By: Ccf Provider on 10-31-2022 [facility] CNOVon 09-21-2022 CNOV Office Visit ([place] ) DEBBY HERMOSILLO ([id number]) 1965 F Date Time Provider Department 09/21/22 3:00 PM MINA WALDEN During your visit today, we recorded the following information about you: Temperature Pulse Respiration Blood pressure 97.6 degrees 66/minute 22/minute 153/69 Weight Height 37.3 kg 1.524 m Mina Walden MD 09/21/2022 4:46 PM Signed [facility] THORAC[facility] SURGERY OUTPATIENT CONSULT NOTE Dbeby Hermosillo [id number] Requesting Provider: Stacy Adhikari MD Thoracic Physician: Mina Walden MD Chief Complaint: New RLL nodule in setting of 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 [facility] STAFF PHYSICIAN NOTE OF PERSONAL INVOLVEMENT IN CARE IMPRESSION: Patient is a 57 year old female smoker presenting with new left lingular biopsy proven adenocarcinoma and a notable history of a RUL mixed SCLC/SqCLC trated in 2018. Her imaging also reveals a small lesion in the right base of uncertain etiology and, at tumor board discussion, the recommendation was to proceed with a right VATS wedge to exclude metastatic disease. We have discussed the conduct of the operation, risks/benefits and the expected postop course. We discussed the challenges due to her suboxone use which will likely lengthen her stay. Furthermore, due to past RT in the right chest, we may encounter adhesions requiring decort which could contribute to postop air leak. The patient is interested in proceeding with wedge resection thus we will contact her to make the necessary arrangements. PLAN: 1) stress test due to reports of chest pain and longstanding smoking history 2) update CT chest to assure RLL lesion has persisted at [facility] 3) Discuss plans for periop pain management with Dr. Browne 3) [facility] 4) Right VATS wedge I have reviewed the documentation obtained and documented by the Nurse Practitioner and I have personally performed the substantive portion of the visit which includes the medical decision making. I have discussed the case and management of the patient's care. STAFF PHYSICIAN: Mina Walden MD DATE OF SERVICE: September 21, 2022 TIME OF SERVICE: 4:39 PM Impression: Debby Hermosillo is a 57 year old White female with PMH of Stage II combined small cell and SCC of the RUL treated with 5 cycles of carboplatin and topside combined with radiation back in 2018 referred by Stacy Adhikari MD for an opinion regarding management of lung nodule. Plan: -Discussed in collaboration with and further plans to follow from Dr. Walden HPI: Debby Hermosillo is a 57 year old female current smoker (67.5 ppy Hx; down to 4 cigarettes/day) with PMH of Stage II combined small cell and SCC of the RUL treated with 5 cycles of carboplatin and topside combined with radiation back in 2018 referred by Stacy Adhikari MD for an opinion regarding management of lung nodule. In June 2022, patient underwent CT scan that demonstrated 8mm TAM nodular opacity increased in size since March 2022 as well as new mild reticulonodular opacities in the RLL. PET/CT scan done 07/2022 revealed two solid nodules in the lingula and RLL have increased since last CT 06/23 and a hypermetabolic nodule in the TAM suspicious for neoplasm. EBUS done 08/10 was positive for adenocarcinoma in the lingula nodule and lymph node 4L. Brain MRI was unremarkable. Patient was presented to tumor board, with recommendation of diagnostic wedge resection vs IR biopsy of RLL lesion, with understanding that wedge will be advised if non diagnostic. Denies any SOB. Notes occasional productive cough with a lot of clear mucus. Only notes hemoptysis after EBUS. States weight is stable. (document at least 4 of these elements) Location: RLL of Lung Quality: constant Timing: on 06/2022 CCT Associated signs and symptoms: Productive cough ECOG Score: 0 Living arrangement: Lives with family/friend Functional status: Independent Unintentional weight loss over last 3 months: No PAST MEDICAL HISTORY: PAST MEDICAL HISTORY Diagnosis Date Arthritis Asthma Back pain chronic Carpal tunnel syndrome, bilateral s/p repair - 2016 Current smoker DDD (degenerative disc disease), lumbar GERD (gastroesophageal reflux disease) Neck pain Neuropathy unclear origin- 6 months? saw neurologist (Dr. Heran- In [facility]); possible MS? Osteoporosis Pneumonia 06/2016 AND 12/2016 Small cell lung cancer in adult (HCC) 02/17/2017 Combined small cell carcinoma and squamous cell carcinoma with extensive necrosis PAST SURGICAL HISTORY: PAST SURGICAL HISTORY Procedure Laterality Date CARPAL TUNNEL CHOLECYSTECTOMY HX COLONOSCOPY HYSTERECTOMY HX NOSE SURGERY HX FRACTURE PAST SURGICAL HISTORY OF CONE BIOPSY 198 (more content not included)... Normal [facility] LUNG DIFFUSION CAPACITY (PATRIZIA O)on 09-21-2022 DLCO (ml/min/mmHg) 11.80 ml/min/mmHg [facility] DLCO/VA (ml/min/mmHg/L) 2.35 ml/min/mmHg/L [facility] [id number]% PRE (L/S) 1.48 L/S [facility] FEV1 PRE (L) 2.16 L [facility] FEV1/FVC PRE (%) 70 % [facility] FVC PRE (L) 3.07 L [facility] PEF PRE (L/S) 4.04 L/S [facility] VA (L) 5.03 L [facility] SPIROMETRY WITH DILATOR IF O BSTRUCTEDon 09-21-2022 [facility] MRI BRAIN WO/W IVCONon 09-17 [facility] BRONCHOSCOPYon 08-10-[address] [facility] [address] Chest WO contraston 08-05 IMPRESSION: 1. Few small groundglass and solid pulmonary nodules are noted. At least two of the solid nodules in the lingula and right lower lobe have increased in size since 06/23/2022 and are concerning for neoplastic/metastatic disease. 2. No new or increasing intrathoracic lymphadenopathy is noted. Transcribe Date/Time: Aug 05 2022 11:50A Dictated by: ALLAN MARI MD This examination was interpreted and the report reviewed and electronically signed by: ALLAN MARI MD on Aug 05 2022 12:02PM EST Thank you for allowing us to participate in the care of your patient. Should there be any questions regarding this interpretation, please call [phone]. If you are unable to reach us at the number above, please feel free to contact [facility] at [phone]. DIVISION OF RADIOLOGY * * *Final Report* * * DATE OF EXAM: Aug 05 2022 8:03AM [facility] 0541 - CT CHEST WO IVCON / PROCEDURE REASON: multiple diagnoses * * * * Physician Interpretation * * * * RESULT: EXAMINATION: CHEST CT WITHOUT CONTRAST CLINICAL HISTORY: 57 year old?female?with prior?Stage II A combined small cell and squamous cell carcinoma of the right upper lobe with metastasis to the right intralobar lymph node?s/p chemotherapy and radiation?followed by PDL 1 inhibition until March 2018, current smoker at least 45 pack years, cutting down to 4 cigarettes/day now with a left upper lobe nodule. Technique: Spiral CT acquisition of the chest from the thoracic inlet to the upper abdomen without contrast. MQ: CTCWO_6 CT Radiation dose: Integrated Dose-length product (DLP) for this visit = 122 mGy*cm CT Dose Reduction Employed: Automated exposure control (AEC) Comparison: 06/23/2022, PET/CT dated 07/15/2022 RESULT: Limitations: None. Lines, tubes, and devices: None. Lung parenchyma and airways: There is an 11 mm nodule in the lingula, which has increased in size since 06/23/2022 when it measured 8 mm, image 261. This nodule was hypermetabolic on recent prior PET/CT and is concerning for a neoplastic/metastatic process. Another 2 mm nodule in the right lower lobe on CT dated 06/23/2022 has increased in size and now measures 8 mm, image 221. Few additional scattered solid and groundglass nodules are also noted, which are unchanged. For example, there is a 6 x 4 mm nodule along the right minor fissure at image 184. A masslike consolidation is noted in the right upper lobe with associated architectural distortion and traction bronchiectasis, consistent with treated neoplasm with post radiation therapy changes. Multiple centrilobular nodules are noted in both lungs, likely smoking related. Mild biapical scarring is likely postinflammatory. Mild paraseptal and centrilobular emphysema is noted at the lung apices. Small amount of retained secretions are noted in the trachea and central bronchi. There is central and peripheral bronchial thickening. Pleural space: No pleural effusion. No pleural thickening. Lower neck, lymph nodes, and mediastinum: The imaged thyroid gland is normal. No lymphadenopathy in the supraclavicular, axillary, mediastinal, or hilar regions. Heart, pericardium, and thoracic vessels: The thoracic aorta and main pulmonary artery are normal in caliber. The cardiac chambers are normal in size. Scattered coronary artery atherosclerotic calcifications are noted, although the study is not optimized for coronary assessment. No pericardial effusion or thickening. Bones and soft tissues: No destructive bone lesion. Chest wall is unremarkable. Punctate calcification is noted in the right breast. Bones are osteopenic. There is mild scoliosis of the thoracolumbar spine. Upper abdomen: The patient is status post cholecystectomy. A nonobstructing right renal calculus is noted. There is moderate calcification of the abdominal aorta. [employer] (topogram) images: No additional findings. - DIVISION OF RADIOLOGY Provider, [facility] - 08/05/2022 * * *Final Report* * * DATE OF EXAM: Aug 05 2022 8:03AM [facility] 0541 - CT CHEST WO IVCON / PROCEDURE REASON: multiple diagnoses * * * * Physician Interpretation * * * * RESULT: EXAMINATION: CHEST CT WITHOUT CONTRAST CLINICAL HISTORY: 57 year old?female?with prior?Stage II A combined small cell and squamous cell carcinoma of the right upper lobe with metastasis to the right intralobar lymph node?s/p chemotherapy and radiation?followed by PDL 1 inhibition until March 2018, current smoker at least 45 pack years, cutting down to 4 cigarettes/day now with a left upper lobe nodule. Technique: Spiral CT acquisition of the chest from the thoracic inlet to the upper abdomen without contrast. MQ: CTCWO_6 CT Radiation dose: Integrated Dose-length product (DLP) for this visit = 122 mGy*cm CT Dose Reduction Employed: Automated exposure control (AEC) Comparison: 06/23/2022, PET/CT dated 07/15/2022 RESULT: Limitations: None. Lines, tubes, and devices: None. Lung parenchyma and airways: There is an 11 mm nodule in the lingula, which has increased in size since 06/23/2022 when it measured 8 mm, image 261. This nodule was hypermetabolic on recent prior PET/CT and is concerning for a neoplastic/metastatic process. Another 2 mm nodule in the right lower lobe on CT dated 06/23/2022 has increased in size and now measures 8 mm, image 221. Few additional scattered solid and groundglass nodules are also noted, which are unchanged. For example, there is a 6 x 4 mm nodule along the right minor fissure at image 184. A masslike consolidation is noted in the right upper lobe with associated architectural distortion and traction bronchiectasis, consistent with treated neoplasm with post radiation therapy changes. Multiple centrilobular nodules are noted in both lungs, likely smoking related. Mild biapical scarring is likely postinflammatory. Mild paraseptal and centrilobular emphysema is noted at the lung apices. Small amount of retained secretions are noted in the trachea and central bronchi. There is central and peripheral bronchial thickening. Pleural space: No pleural effusion. No pleural thickening. Lower neck, lymph nodes, and mediastinum: The imaged thyroid gland is normal. No lymphadenopathy in the supraclavicular, axillary, mediastinal, or hilar regions. Heart, pericardium, and thoracic vessels: The thoracic aorta and main pulmonary artery are normal in caliber. The cardiac chambers are normal in size. Scattered coronary artery atherosclerotic calcifications are noted, although the study is not optimized for coronary assessment. No pericardial effusion or thickening. Bones and soft tissues: No destructive bone lesion. Chest wall is unremarkable. Punctate calcification is noted in the right breast. Bones are osteopenic. There is mild scoliosis of the thoracolumbar spine. Upper abdomen: The patient is status post cholecystectomy. A nonobstructing right renal calculus is noted. There is moderate calcification of the abdominal aorta. [employer] (topogram) images: No additional findings. - IMPRESSION IMPRESSION: 1. Few small groundglass and solid pulmonary nodules are noted. At least two of the solid nodules in the lingula and right lower lobe have increased in size since 06/23/2022 and are concerning for neoplastic/metastatic disease. 2. No new or increasing intrathoracic lymphadenopathy is noted. Transcribe Date/Time: Aug 05 2022 11:50A Dictated by: ALLAN MARI MD This examination was interpreted and the report reviewed and electronically signed by: ALLAN MARI MD on Aug 05 2022 12:02PM EST Thank you for allowing us to participate in the care of your patient. Should there be any questions regarding this interpretation, please call [phone]. If you are unable to reach us at the number above, please feel free to contact [facility] at [phone]. [facility] Radiology Study observation (narrative) [facility] CT Chest WO contrastOrdered By: [facility] Provider on 08-05-2022 [facility] GLUCOSE, BLOOD (POC)on 07-15 Glucose [Mass/Vol] 129 mg/dL Abnormal 74 - 99 mg/dL [facility] Comment on above: Location:[facility], [address] [place] [address] , [place], [place], [facility] The Accu-Chek Inform II glucose meter has not been approved for testing on patients receiving intensive medical intervention or therapy and results from this point of care glucose test should not be used for patient management decisions in these cases. Inaccurate results may also occur from other interfering factors, such as N-acetylcysteine (blood concentrations of greater than 5mg/dL), galactose, extremes of hematocrit (<10 or >65), or high doses of ascorbic acid (vitamin C) greater than 3mg/dL. Consider alternate testing mechanisms (e.g. core lab, blood gas instrument) in the above situations. Interpretation and review of laboratory results Abnormal [facility] PET+CT Guidance for localiza tion of tumor of Skull base to mid-thigh-- W 18F-FDG Jaz 07-15-2022 IMPRESSION: 1. Neck: No suspicious hypermetabolic foci 2. Chest: Hypermetabolic nodule in the left upper lobe suspicious for neoplasm. No hypermetabolic lymphadenopathy. 3. Abdomen and pelvis: No evidence of FDG avid neoplastic process 4. Skeleton: No hypermetabolic osseous lesions Transcribe Date/Time: Jul 15 2022 3:24P Dictated by: FLORY GUILLEN MD This examination was interpreted and the report reviewed and electronically signed by: FLORY GUILLEN MD on Jul 15 2022 4:48PM EST Thank you for allowing us to participate in the care of your patient. Should there be any questions regarding this interpretation, please call [phone]. If you are unable to reach us at the number above, please feel free to contact [facility] at [phone]. DIVISION OF RADIOLOGY * * *Final Report* * * DATE OF EXAM: Jul 15 2022 1:11PM NRN [id number] - NM PET/CT SKULL-THIGH INIT / PROCEDURE REASON: Neoplasm of lung * * * * Physician Interpretation * * * * RESULT: FDG PET/CT SCAN: CLINICAL HISTORY: Neoplasm of lung. INDICATION: Initial treatment strategy. TECHNIQUE: 7.1 mCi 18-FDG IV, followed about 1 hour later by PET imaging from base of the skull to proximal femur. Non contrast CT was performed for attenuation correction and anatomic localization purposes. CT Dose-Length Product (DLP): 97 mGy*cm. CT Dose Reduction Employed: Yes BLOOD GLUCOSE: 129 mg/dL Comparison: Prior PET CT dated 07/18/2019. Correlation: CT chest 06/23/2022 RESULT: NECK: Likely physiological activity in the oral cavity, tonsillar regions, salivary glands. Diffuse uptake in the oral cavity and floor of mouth possibly physiological or inflammation. No suspicious hypermetabolic foci. There is no hypermetabolic cervical lymphadenopathy. CHEST: There are aortic and coronary calcifications. There is no hypermetabolic hilar or mediastinal lymphadenopathy. There is no hypermetabolic axillary lymphadenopathy. Focal opacity in the right upper lobe with low-level uptake (Max SUV 1.7) likely posttreatment change. Hypermetabolic Nodule in the left upper lobe lingular region measures 0.6 x 0.8 cm (max SUV 2.5). Few additional scattered subcentimeter nodules without significant FDG activity. ABDOMEN AND PELVIS: The liver is slightly heterogeneous activity but no focal lesions are identified. There are no hypermetabolic foci in the liver, spleen, adrenals. There is no hypermetabolic abdominal or pelvic lymphadenopathy. Physiologic activity is noted in the liver, renal collecting system, bladder and bowel. Bladder diverticula activity in the left pelvis. SKELETON: There are no hypermetabolic osseous lesions. [employer] (topogram) images:No additional findings. DIVISION OF RADIOLOGY ProviderMargret - 07/15/2022 * * *Final Report* * * DATE OF EXAM: Jul 15 2022 1:11PM [facility] [id number] - NM PET/CT SKULL-THIGH INIT / PROCEDURE REASON: Neoplasm of lung * * * * Physician Interpretation * * * * RESULT: FDG PET/CT SCAN: CLINICAL HISTORY: Neoplasm of lung. INDICATION: Initial treatment strategy. TECHNIQUE: 7.1 mCi 18-FDG IV, followed about 1 hour later by PET imaging from base of the skull to proximal femur. Non contrast CT was performed for attenuation correction and anatomic localization purposes. CT Dose-Length Product (DLP): 97 mGy*cm. CT Dose Reduction Employed: Yes BLOOD GLUCOSE: 129 mg/dL Comparison: Prior PET CT dated 07/18/2019. Correlation: CT chest 06/23/2022 RESULT: NECK: Likely physiological activity in the oral cavity, tonsillar regions, salivary glands. Diffuse uptake in the oral cavity and floor of mouth possibly physiological or inflammation. No suspicious hypermetabolic foci. There is no hypermetabolic cervical lymphadenopathy. CHEST: There are aortic and coronary calcifications. There is no hypermetabolic hilar or mediastinal lymphadenopathy. There is no hypermetabolic axillary lymphadenopathy. Focal opacity in the right upper lobe with low-level uptake (Max SUV 1.7) likely posttreatment change. Hypermetabolic Nodule in the left upper lobe lingular region measures 0.6 x 0.8 cm (max SUV 2.5). Few additional scattered subcentimeter nodules without significant FDG activity. ABDOMEN AND PELVIS: The liver is slightly heterogeneous activity but no focal lesions are identified. There are no hypermetabolic foci in the liver, spleen, adrenals. There is no hypermetabolic abdominal or pelvic lymphadenopathy. Physiologic activity is noted in the liver, renal collecting system, bladder and bowel. Bladder diverticula activity in the left pelvis. SKELETON: There are no hypermetabolic osseous lesions. [employer] (topogram) images:No additional findings. IMPRESSION IMPRESSION: 1. Neck: No suspicious hypermetabolic foci 2. Chest: Hypermetabolic nodule in the left upper lobe suspicious for neoplasm. No hypermetabolic lymphadenopathy. 3. Abdomen and pelvis: No evidence of FDG avid neoplastic process 4. Skeleton: No hypermetabolic osseous lesions Transcribe Date/Time: Jul 15 2022 3:24P Dictated by: FLORY GUILLEN MD This examination was interpreted and the report reviewed and electronically signed by: FLORY GUILLEN MD on Jul 15 2022 4:48PM EST Thank you for allowing us to participate in the care of your patient. Should there be any questions regarding this interpretation, please call [phone]. If you are unable to reach us at the number above, please feel free to contact [facility] at [phone]. [facility] Radiology Study observation (narrative) [facility] PET+CT Guidance for localiza tion of tumor of Skull base to mid-thigh-- W 18F-FDG IVOrdered By: Ccf Provider on 07-15-2022 [facility] MRI BRAIN WO W CONon 023 MRI BRAIN WO W CON EXAMINATION: MRI BRA IN WO W CON HISTORY: Primary malignant neoplasm of lower lobe, bronchus or lung COMPARISON: MRI brain 09/21/2021 TECHNIQUE: A variety of imaging planes and parameters were utilized for visualization of suspected pathology. Images were performed without and with ml Dotarem contrast. FINDINGS: CEREBRUM: No edema, hemorrhage, mass, acute infarction, or inappropriate atrophy. CEREBELLUM: No edema, hemorrhage, mass, acute infarction, or inappropriate atrophy. BRAINSTEM: No edema, hemorrhage, mass, acute infarction, or inappropriate atrophy. CSF SPACES: Ventricles, cisterns, and sulci are appropriate for age. No hydrocephalus, subarachnoid hemorrhage, or mass. SKULL: No mass or other significant visible lesion. SINUSES: Trace amount of fluid versus mucosal thickening within a few mastoid air cells bilaterally. Paranasal sinuses are clear. ORBITS: Limited views are unremarkable. OTHER: No abnormal meningeal or parenchymal enhancement. IMPRESSION: 1. No evidence of metastatic disease. 2. No suspicious findings. Electronically authenticated by: SARA KIDD Date: 2022-07-08 07:19 Normal [facility] CT Chest W contrast Jaz IMPRESSION: 1. New mild reticulonodular opacities in the right lower lobe most likely infectious/inflammatory in etiology. Superimposed neoplasm cannot be excluded. 2. 8 mm left upper lobe nodular opacity increased in size since 03/31/22, worrisome for neoplasm. 3. Other subcentimeter nodular opacities and groundglass opacities are stable. Transcribe Date/Time: Jun 23 2022 4:41P Dictated by: KIANA CARVAJAL MD This examination was interpreted and the report reviewed and electronically signed by: KIANA CARVAJAL MD on Jun 23 2022 5:05PM EST Thank you for allowing us to participate in the care of your patient. Should there be any questions regarding this interpretation, please call [phone]. If you are unable to reach us at the number above, please feel free to contact [facility] at [phone]. DIVISION OF RADIOLOGY * * *Final Report* * * DATE OF EXAM: Jun 23 2022 10:27AM [facility] 0539 - CT CHEST W IVCON / PROCEDURE REASON: Malignant neoplasm of unspecified part of unspecified bronchus or lung (HCC) * * * * Physician Interpretation * * * * RESULT: EXAMINATION: CHEST CT WITH CONTRAST CLINICAL HISTORY: Malignant neoplasm of unspecified part of unspecified bronchus or lung (HCC) Technique: Spiral CT acquisition of the chest from the thoracic inlet to the upper abdomen following IV contrast. MQ: CTCWR_5 Contrast: 50 mL Omnipaque [address] Dose-Length Product: 111 mGy*cm CT Dose Reduction Employed: Automated exposure control (AEC) Comparison: 03/30/22 RESULT: Limitations: None. Lines, tubes, and devices: None. Lung parenchyma and pleura: Right upper lobe patchy opacities are most likely due to post radiation change and/or other infectious/inflammatory etiologies, increased and now obscures the previously noted nodular opacity. Right middle lobe groundglass opacities measuring up to 5 mm (4:96, 123) are stable. 6 mm right middle lobe nodular opacity (4:110) and 5 mm right lower lobe nodular opacity (4:120), stable. 8 mm left upper lobe nodular opacity (4:137), previously 5 mm, increased in size. New mild reticulonodular opacities in the right lower lobe (4:146, 156) most likely infectious/inflammatory etiology. No pleural effusion. Central airways are patent. Thoracic inlet, heart, and mediastinum: No lymphadenopathy in the axillary, mediastinal, or hilar regions. The thoracic aorta and main pulmonary artery are normal in caliber. The cardiac chambers are normal in size. Atherosclerotic coronary artery calcifications are noted. No pericardial effusion or thickening. Bones and soft tissues: No suspicious lytic or blastic osseous lesions. Upper abdomen: No evidence of an adrenal mass. Cholecystectomy clips. Mild intrahepatic biliary ductal dilatation. DIVISION OF RADIOLOGY Provider, [facility] - 06/23/2022 * * *Final Report* * * DATE OF EXAM: Jun 23 2022 10:27AM [facility] 0539 - CT CHEST W IVCON / PROCEDURE REASON: Malignant neoplasm of unspecified part of unspecified bronchus or lung (HCC) * * * * Physician Interpretation * * * * RESULT: EXAMINATION: CHEST CT WITH CONTRAST CLINICAL HISTORY: Malignant neoplasm of unspecified part of unspecified bronchus or lung (HCC) Technique: Spiral CT acquisition of the chest from the thoracic inlet to the upper abdomen following IV contrast. MQ: CTCWR_5 Contrast: 50 mL Omnipaque [address] Dose-Length Product: 111 mGy*cm CT Dose Reduction Employed: Automated exposure control (AEC) Comparison: 03/30/22 RESULT: Limitations: None. Lines, tubes, and devices: None. Lung parenchyma and pleura: Right upper lobe patchy opacities are most likely due to post radiation change and/or other infectious/inflammatory etiologies, increased and now obscures the previously noted nodular opacity. Right middle lobe groundglass opacities measuring up to 5 mm (4:96, 123) are stable. 6 mm right middle lobe nodular opacity (4:110) and 5 mm right lower lobe nodular opacity (4:120), stable. 8 mm left upper lobe nodular opacity (4:137), previously 5 mm, increased in size. New mild reticulonodular opacities in the right lower lobe (4:146, 156) most likely infectious/inflammatory etiology. No pleural effusion. Central airways are patent. Thoracic inlet, heart, and mediastinum: No lymphadenopathy in the axillary, mediastinal, or hilar regions. The thoracic aorta and main pulmonary artery are normal in caliber. The cardiac chambers are normal in size. Atherosclerotic coronary artery calcifications are noted. No pericardial effusion or thickening. Bones and soft tissues: No suspicious lytic or blastic osseous lesions. Upper abdomen: No evidence of an adrenal mass. Cholecystectomy clips. Mild intrahepatic biliary ductal dilatation. IMPRESSION IMPRESSION: 1. New mild reticulonodular opacities in the right lower lobe most likely infectious/inflammatory in etiology. Superimposed neoplasm cannot be excluded. 2. 8 mm left upper lobe nodular opacity increased in size since 03/31/22, worrisome for neoplasm. 3. Other subcentimeter nodular opacities and groundglass opacities are stable. Transcribe Date/Time: Jun 23 2022 4:41P Dictated by: KIANA CARVAJAL MD This examination was interpreted and the report reviewed and electronically signed by: KIANA CARVAJAL MD on Jun 23 2022 5:05PM EST Thank you for allowing us to participate in the care of your patient. Should there be any questions regarding this interpretation, please call [phone]. If you are unable to reach us at the number above, please feel free to contact [facility] at [phone]. [facility] Radiology Study observation (narrative) [facility] CT Chest W contrast IVOrdere d By: [facility] Provider on 06-23-2022 [facility] XR SHOULDER RT 2V or >on XR SHOULDER RT 2V or > EXAM: XR SHOULDER RT 2V or > HISTORY: Pain of right shoulder joint COMPARISON: None. TECHNIQUE: 3 views of the right shoulder were obtained. FINDINGS/impression: Osteopenia is present. 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 Normal bony alignment is preserved. No acute fracture or subluxation. The visualized right lung shows a bandlike scarring from the right supra hilar lung. Dedicated PA and lateral views of the chest should be obtained for detailed evaluation of this finding. Electronically authenticated by: REI CHE Date: 2022-05-13 23:08 Normal [facility] CT Abdomen and Pelvis W cont rast Jaz 03-30-2022 IMPRESSION: 1. No evidence of metastatic disease in the abdomen or pelvis. 2. Moderate biliary ductal dilation, similar in appearance to prior CT chest, but new when compared to prior PET/CT. No obstructing calculus or mass is visualized. 3. Nonobstructive nephrolithiasis in the right kidney. Transcribe Date/Time: Mar 30 2022 1:55P Dictated by: ALE AKERS MD This examination was interpreted and the report reviewed and electronically signed by: ALE AKERS MD on Mar 30 2022 2:13PM EST Thank you for allowing us to participate in the care of your patient. Should there be any questions regarding this interpretation, please call [phone]. If you are unable to reach us at the number above, please feel free to contact [facility] at [phone]. DIVISION OF RADIOLOGY * * *Final Report* * * DATE OF EXAM: Mar 30 2022 11:41AM [facility] 0530 - CT ABD/PEL W IVCON / PROCEDURE REASON: Malignant neoplasm of unspecified part of unspecified bronchus or lung (HCC) * * * * Physician Interpretation * * * * RESULT: EXAMINATION: CT ABDOMEN AND PELVIS WITH IV CONTRAST CLINICAL HISTORY: History of lung cancer. TECHNIQUE: CT of the abdomen and pelvis was performed using standard technique, scanning from just above the dome of the diaphragm to the symphysis pubis. MQ: CTAP_3 Contrast: IV: 75 ml of Omnipaque 300 Oral: None CT Radiation dose: Integrated Dose-length product (DLP) for this visit = 289 mGy*cm. CT Dose Reduction Employed: Automated exposure control (AEC) COMPARISON: PET/CT performed 07/18/2019. Portions of the CT of the chest performed 09/07/2021 RESULT: Liver: No mass. Biliary: The gallbladder is surgically absent. There is moderate intrahepatic biliary ductal dilation. The common bile duct is also prominent measuring up to 8mm. Findings are new when compared to prior PET/CT dated 07/18/2019, but are similar in appearance when compared to prior CT chest dated 09/07/2021. No obstructing calculus or gross mass is seen Spleen: No mass. No splenomegaly. Pancreas: No mass or duct dilation. Adrenals: No mass. Kidneys: There is a nonobstructing 2 mm calculus in the lower pole of the right kidney. The kidneys symmetrically enhance. No hydronephrosis is seen in either kidney. GI tract: No dilation or wall thickening. Lymph nodes: No abdominal or pelvic lymphadenopathy. Mesentery/Peritoneum: No ascites or mass. Retroperitoneum: No mass. Vasculature: - Abdominal aorta and iliac arteries: Atherosclerotic calcifications without aneurysm. - Celiac and SMA: Patent without stenosis. - Portal venous system (SMV, splenic vein, portal vein and branches): Patent. - Hepatic veins: Patent. Pelvis: No mass, ascites or fluid collection. Bones/Soft Tissues: Mild degenerative changes noted in the lumbar spine. No destructive osseous lesions are seen. Superficial soft tissues are unremarkable. Lower thorax: A chest CT performed will be reported separately. [employer] (topogram) images: No additional findings. DIVISION OF RADIOLOGY Provider, [facility] - 03/30/2022 * * *Final Report* * * DATE OF EXAM: Mar 30 2022 11:41AM [facility] 0530 - CT ABD/PEL W IVCON / PROCEDURE REASON: Malignant neoplasm of unspecified part of unspecified bronchus or lung (HCC) * * * * Physician Interpretation * * * * RESULT: EXAMINATION: CT ABDOMEN AND PELVIS WITH IV CONTRAST CLINICAL HISTORY: History of lung cancer. TECHNIQUE: CT of the abdomen and pelvis was performed using standard technique, scanning from just above the dome of the diaphragm to the symphysis pubis. MQ: CTAP_3 Contrast: IV: 75 ml of Omnipaque 300 Oral: None CT Radiation dose: Integrated Dose-length product (DLP) for this visit = 289 mGy*cm. CT Dose Reduction Employed: Automated exposure control (AEC) COMPARISON: PET/CT performed 07/18/2019. Portions of the CT of the chest performed 09/07/2021 RESULT: Liver: No mass. Biliary: The gallbladder is surgically absent. There is moderate intrahepatic biliary ductal dilation. The common bile duct is also prominent measuring up to 8mm. Findings are new when compared to prior PET/CT dated 07/18/2019, but are similar in appearance when compared to prior CT chest dated 09/07/2021. No obstructing calculus or gross mass is seen Spleen: No mass. No splenomegaly. Pancreas: No mass or duct dilation. Adrenals: No mass. Kidneys: There is a nonobstructing 2 mm calculus in the lower pole of the right kidney. The kidneys symmetrically enhance. No hydronephrosis is seen in either kidney. GI tract: No dilation or wall thickening. Lymph nodes: No abdominal or pelvic lymphadenopathy. Mesentery/Peritoneum: No ascites or mass. Retroperitoneum: No mass. Vasculature: - Abdominal aorta and iliac arteries: Atherosclerotic calcifications without aneurysm. - Celiac and SMA: Patent without stenosis. - Portal venous system (SMV, splenic vein, portal vein and branches): Patent. - Hepatic veins: Patent. Pelvis: No mass, ascites or fluid collection. Bones/Soft Tissues: Mild degenerative changes noted in the lumbar spine. No destructive osseous lesions are seen. Superficial soft tissues are unremarkable. Lower thorax: A chest CT performed will be reported separately. [employer] (topogram) images: No additional findings. IMPRESSION IMPRESSION: 1. No evidence of metastatic disease in the abdomen or pelvis. 2. Moderate biliary ductal dilation, similar in appearance to prior CT chest, but new when compared to prior PET/CT. No obstructing calculus or mass is visualized. 3. Nonobstructive nephrolithiasis in the right kidney. Transcribe Date/Time: Mar 30 2022 1:55P Dictated by: ALE AKERS MD This examination was interpreted and the report reviewed and electronically signed by: ALE AKERS MD on Mar 30 2022 2:13PM EST Thank you for allowing us to participate in the care of your patient. Should there be any questions regarding this interpretation, please call [phone]. If you are unable to reach us at the number above, please feel free to contact [facility] at [phone]. [facility] CT Abdomen and Pelvis W cont rast IVOrdered By: [facility] Provider on 03-30-[address] [facility] [address] Chest W contrast Jaz IMPRESSION: 1. Interval development of a new 5 mm nodule in the right lower lobe. This may be infectious/inflammatory or neoplastic in nature. Recommend continued attention to this area on follow-up exams. 2. Stable appearance of 6 mm groundglass opacity in the right middle lobe. An additional 4 mm groundglass opacity more inferiorly in the right middle lobe appears slightly less conspicuous when compared to prior study. 3. Stable bandlike and nodular consolidative opacity in the right upper lobe and right suprahilar region, in keeping with postradiation fibrosis. Transcribe Date/Time: Mar 30 2022 1:25P Dictated by: ALE AKERS MD This examination was interpreted and the report reviewed and electronically signed by: ALE AKERS MD on Mar 30 2022 1:54PM EST Thank you for allowing us to participate in the care of your patient. Should there be any questions regarding this interpretation, please call [phone]. If you are unable to reach us at the number above, please feel free to contact [facility] at [phone]. DIVISION OF RADIOLOGY * * *Final Report* * * DATE OF EXAM: Mar 30 2022 11:41AM [facility] 0539 - CT CHEST W IVCON / PROCEDURE REASON: Malignant neoplasm of unspecified part of unspecified bronchus or lung (HCC) * * * * Physician Interpretation * * * * RESULT: EXAMINATION: CHEST CT WITH CONTRAST CLINICAL HISTORY: History of lung cancer. Technique: Spiral CT acquisition of the chest from the thoracic inlet to the upper abdomen following IV contrast. MQ: CTCW_6 Contrast: 75 mL Omnipaque [address] Radiation dose: Integrated Dose-length product (DLP) for this visit = 289 mGy*cm CT Dose Reduction Employed: Automated exposure control (AEC) Comparison: CT chest performed 08/30/2021 RESULT: Limitations: None. Lines, tubes, and devices: None. Lung parenchyma and airways: There is stable right upper lobe and right suprahilar bandlike elevated of opacity, likely relating to postradiation fibrosis. No new lobar consolidation is identified. There is a new 5 mm nodule in the right lower lobe (4:116). There is a stable groundglass opacity in the right middle lobe measuring up to 6 mm (4:97). There is a 4 mm groundglass nodule in the right middle lobe, adjacent to the major fissure (4:124) which appears slightly less conspicuous when compared to prior study. The central airways are widely patent. Pleural space: No pleural effusion. No pleural thickening. Lower neck, lymph nodes, and mediastinum: The imaged thyroid gland is normal. No lymphadenopathy in the supraclavicular, axillary, mediastinal, or hilar regions. Heart, pericardium, and thoracic vessels: The thoracic aorta and main pulmonary artery are normal in caliber. The cardiac chambers are normal in size. No coronary artery atherosclerotic calcifications are noted, although the study is not optimized for coronary assessment. No pericardial effusion or thickening. Bones and soft tissues: No destructive osseous lesions are seen. Superficial soft tissues are unremarkable. Upper abdomen: A dedicated CT of the abdomen and pelvis was performed concurrently and is reported separately. [employer] (topogram) images: No additional findings. DIVISION OF RADIOLOGY Provider, [facility] - 03/30/2022 * * *Final Report* * * DATE OF EXAM: Mar 30 2022 11:41AM [facility] 0539 - CT CHEST W IVCON / PROCEDURE REASON: Malignant neoplasm of unspecified part of unspecified bronchus or lung (HCC) * * * * Physician Interpretation * * * * RESULT: EXAMINATION: CHEST CT WITH CONTRAST CLINICAL HISTORY: History of lung cancer. Technique: Spiral CT acquisition of the chest from the thoracic inlet to the upper abdomen following IV contrast. MQ: CTCW_6 Contrast: 75 mL Omnipaque [address] Radiation dose: Integrated Dose-length product (DLP) for this visit = 289 mGy*cm CT Dose Reduction Employed: Automated exposure control (AEC) Comparison: CT chest performed 08/30/2021 RESULT: Limitations: None. Lines, tubes, and devices: None. Lung parenchyma and airways: There is stable right upper lobe and right suprahilar bandlike elevated of opacity, likely relating to postradiation fibrosis. No new lobar consolidation is identified. There is a new 5 mm nodule in the right lower lobe (4:116). There is a stable groundglass opacity in the right middle lobe measuring up to 6 mm (4:97). There is a 4 mm groundglass nodule in the right middle lobe, adjacent to the major fissure (4:124) which appears slightly less conspicuous when compared to prior study. The central airways are widely patent. Pleural space: No pleural effusion. No pleural thickening. Lower neck, lymph nodes, and mediastinum: The imaged thyroid gland is normal. No lymphadenopathy in the supraclavicular, axillary, mediastinal, or hilar regions. Heart, pericardium, and thoracic vessels: The thoracic aorta and main pulmonary artery are normal in caliber. The cardiac chambers are normal in size. No coronary artery atherosclerotic calcifications are noted, although the study is not optimized for coronary assessment. No pericardial effusion or thickening. Bones and soft tissues: No destructive osseous lesions are seen. Superficial soft tissues are unremarkable. Upper abdomen: A dedicated CT of the abdomen and pelvis was performed concurrently and is reported separately. [employer] (topogram) images: No additional findings. IMPRESSION IMPRESSION: 1. Interval development of a new 5 mm nodule in the right lower lobe. This may be infectious/inflammatory or neoplastic in nature. Recommend continued attention to this area on follow-up exams. 2. Stable appearance of 6 mm groundglass opacity in the right middle lobe. An additional 4 mm groundglass opacity more inferiorly in the right middle lobe appears slightly less conspicuous when compared to prior study. 3. Stable bandlike and nodular consolidative opacity in the right upper lobe and right suprahilar region, in keeping with postradiation fibrosis. Transcribe Date/Time: Mar 30 2022 1:25P Dictated by: ALE AKERS MD This examination was interpreted and the report reviewed and electronically signed by: ALE AKERS MD on Mar 30 2022 1:54PM EST Thank you for allowing us to participate in the care of your patient. Should there be any questions regarding this interpretation, please call [phone]. If you are unable to reach us at the number above, please feel free to contact [facility] at [phone]. [facility] No Panel Informationon 03-30 Radiology Study observation (narrative) [facility] CULTURE URINEon 03-02-2022 CULTURE URINE Culture Observations : NO GROWTH. Normal [facility] Comment on above: Performed By: #### C QIAN, LIPID #### [facility] [address] [place] [address] [id number] [address] Martell Epperson UA RANDOM W/MICROSCOPICon BACTERIA SMALL Abnormal NONE SEEN [facility] Comment on above: Performed By: #### U AMIC #### [facility] [address] [place], [place] [address] Dr. Martell Epperson Bilirubin Ql (U) Unable to perform te sting due to color interference. Abnormal NEGATIVE [facility] Comment on above: Performed By: #### U AMIC #### [facility] [address] [place] [address] Dr. Martell Epperson CAST NONE SEEN Normal NONE SEEN [facility] Comment on above: Performed By: #### U AMIC #### [facility] [address] [place] [address] [address] Martell Epperson Clarity (U) CLEAR Normal CLEAR [facility] Comment on above: Performed By: #### U AMIC #### [facility] [address] [place] [address] Dr. Martell Epperson Color (U) DK. ORANGE Abnormal YELLOW [facility] Comment on above: Performed By: #### U AMIC #### [facility] [address] [place] [address] Dr. Martell Epperson Crystals LM Nom (Urine sed) NONE SEEN Normal NONE SEEN [facility] Comment on above: Performed By: #### U AMIC #### [facility] [address] [place] [address] Dr. Martell Epperson Epithelial cells LM Ql (Urine sed) FEW Abnormal NONE SEEN /RARE [facility] Comment on above: Performed By: #### U AMIC #### [facility] [address] [place] [address] Dr. Martell Epperson Glucose Ql (U) Unable to perform te sting due to color interference. Abnormal NEGATIVE [facility] Comment on above: Performed By: #### U AMIC #### [facility] [address] [place] [address] Dr. Martell Epperson Hemoglobin Ql (U) Unable to perform te sting due to color interference. Abnormal NEGATIVE [facility] Comment on above: Performed By: #### U AMIC #### [facility] [address] [place] [address] Dr. Martell Epperson Ketones Ql (U) Unable to perform te sting due to color interference. Abnormal NEGATIVE [facility] Comment on above: Performed By: #### U AMIC #### [facility] [address] [place] [address] [address] Martell Epperson LEUKOCYTES Unable to perform te sting due to color interference. Abnormal NEGATIVE [facility] Comment on above: Performed By: #### U AMIC #### [facility] [address] [place] [address] [address] Martell Epperson MUCOUS SMALL Abnormal NONE SEEN [facility] Comment on above: Performed By: #### U AMIC #### [facility] [address] [place] [address] [address] Martell Epperson Nitrite Ql (U) Unable to perform te sting due to color interference. Abnormal NEGATIVE [facility] Comment on above: Performed By: #### U AMIC #### [facility] [address] [place] [address] Dr. Martell Epperson pH Unable to perform te sting due to color interference. Abnormal 5-9 [facility] Comment on above: Performed By: #### U AMIC #### [facility] [address] [place] [address] Dr. Martell Epperson RBC NONE SEEN Abnormal 0-2 [facility] Comment on above: Performed By: #### U AMIC #### [facility] [address] [place] [address] Dr. Martell Epperson SPEC GRAVITY 1.015 Normal 1.005-<=1.0 25 [facility] Comment on above: Performed By: #### U AMIC #### [facility] [address] [place] [address] Dr. Martell Epperson UA PROTEIN Unable to perform te sting due to color interference. Normal NEGATIVE/ TRACE [facility] Comment on above: Performed By: #### U AMIC #### [facility] [address] [place] [address] Dr. Martell Epperson UROBILINOGEN Unable to perform te sting due to color interference. Normal 0.2 - 1.0 [facility] Comment on above: Performed By: #### U AMIC #### [facility] [address] [place] [address] Dr. Martell Epperson WBC 2-5 Abnormal NONE SEEN [facility] Comment on above: Performed By: #### U AMIC #### [facility] [address] [place] [address] [address] angio neckon 11-30-2021 CT angio neck [facility] Main [address] [address] [address] Scan Report Signed Patient: Debby Hermosillo MR#: [id number] : 1965 Acct:[id number] Age/Sex: 56 / F ADM Date: 11/30/21 Loc: Room: Type: [facility] Attending Dr: Finn Mejias DO Copies to: Merry Mejias DO Ordering Provider: Merry Mejias DO Date of Service: 11/30/21 CT/CT angio neck: I63.9 ([id number]) CT/CT angio head: I63.9 CT angio head, CT angio neck 11/30/2021 2:52 PM SIGNS AND SYMPTOMS: History of lung cancer, possible CVA seen on MRI CONTRAST: 70 mL of intravenous Isovue-370 TECHNIQUE: Multi-detector CT angiography axial slices of the head and neck were obtained before and during intravenous administration of IV contrast material. Sagittal, coronal, and 3-D reconstructions were performed and viewed on a separate workstation. CT was performed with one or more of the following dose reduction techniques: Automated exposure control, adjustment of the mA and/or kV according to patient size, or use of iterative reconstruction technique. Stenoses were measured using the NASCET criteria. COMPARISON: 06/06/2017 FINDINGS: Noncontrast head CT: There is no shift of the midline structures, acute intracranial bleeding, mass effects, or evidence of acute ischemia. There is periventricular white matter hypoattenuation consistent with chronic microvascular ischemic change. There is subtle cortically based hypoattenuation in the left occipital lobe which may be secondary to beam hardening artifact or may represent infarct seen on the previous MRI. Comparison images are not available from that study. Atherosclerotic changes are noted in the V4 segments of the vertebral arteries. The ventricular system is normal in size. The brainstem and the cerebellum are unremarkable. The visualized intraorbital contents, the visualized paranasal sinuses, and the visualized soft tissue in the infratemporal spaces show no abnormality. The osseous structures in the skull base and the calvarium show no acute abnormality. CTA HEAD: The superior cerebellar arteries, posterior inferior cerebellar arteries, and the basilar artery are within normal limits. The posterior cerebral arteries are unremarkable. The intracranial segments of the internal carotid arteries are within normal limits. There are normal anterior and middle cerebral arteries. Anterior communicating artery is patent. Posterior communicating arteries are present. The deep venous system and dural venous systems appear to be patent. No bony abnormalities are appreciated. CTA NECK: Atherosclerotic changes are present in the aortic arch and origins of the great vessels. Calcified and noncalcified plaque is noted in the subclavian arteries bilaterally without significant stenosis. The vertebral arteries arise from the subclavian arteries and are normal in course and caliber up to the skull base. Atherosclerotic changes are noted at the left carotid bifurcation without significant stenosis. There is right perihilar scarring. No acute bony abnormalities are identified. The paraspinous soft tissues are within normal limits. CT/CT angio head IMPRESSION: There is subtle cortically based hypoattenuation in the left occipital lobe which may be secondary to beam hardening artifact or may represent infarct seen on the previous MRI. Comparison images are not available from that study. Chronic microvascular ischemic changes are noted. No evidence of focal stenosis, aneurysmal dilatation, dissection or occlusion. Impression dictated by: Seth Hendrickson M.D.11/30/2021 7:10 PM Dictation Location: [place] [address] Transcribed By: [facility] 11/30/211909 Dictated By: Seth Hendrickson II, MD 11/30/21 184 Signed By: 11/30/211909 Normal [facility] Creatinine (Bld) [Mass/Vol]O rdered By: Merry Mejias on 11-30-2021 Creatinine [Mass/Vol] 0.9 mg/dL 0.6-1.3 [facility] Comment on above: ER/ESD physician is notified/shown all ISTAT results. Critical values may be confirmed by laboratory testing if deemed necessary by ER attending doctor. [facility] echo transthoracicon [facility] echo transthoracic [facility] Main [place] [address] [place] [address] Echocardiogram Signed Patient: Debby Hermosillo MR#: [id number] : 1965 Acct:[id number] Age/Sex: 56 / F ADM Date: 11/30/21 Loc: Room: Type: [facility] Attending Dr: Finn Mejias DO Ordering Provider: Merry Mejias DO Date of Service: 11/30/21/ ECH/ECH echo transthoracic: CVA. Copies to: DO Shun Aponte MD, [facility] Weight: 79 lb Performed By: Ysabel Colunga RDCS BSA: 1.3 m2 BP: 139/74 mmHg HR: 85 Reason For Study: CVA. History: [place]. Lung Cancer. Family history of CAD. Interpretation Summary Ejection Fraction = 55-60%. The left ventricular size, thickness and function are normal The left ventricular wall motion is normal. No thrombus, vegetation or mass is seen. There is no prior echocardiogram noted for this patient. Normal transthoracic echocardiogram. Procedure/Quality: A two-dimensional transthoracic echocardiogram with color flow and Doppler was performed. The study was technically good in quality. There is no prior echocardiogram noted for this patient. Left Ventricle: The left ventricular size, thickness and function are normal. Ejection Fraction = 55-60%. The left ventricular wall motion is normal. Left Atrium: The left atrium appears normal in size. The atrial septum appears normal. Right Atrium: The right atrium appears normal in size. Right Ventricle: The right ventricular size, thickness and function are normal. Aortic Valve: The aortic valve is normal in structure and function. No aortic regurgitation is present. Mitral Valve: The mitral valve is normal in structure and function. There is no mitral regurgitation noted. Tricuspid Valve: The tricuspid valve is normal in structure and function. There is trace tricuspid regurgitation. Pulmonic Valve: The pulmonic valve is normal in structure and function. Arteries: The aortic root is normal size. Pericardium/Pleura: No pericardial effusion seen. There is no pleural effusion. IVC/Hepatic Viens: The inferior vena cava is normal in size, with a normal collapsibility index. Miscellaneous: No thrombus, vegetation or mass is seen. Measurements with Normals IVSd: 1.0 cm (0.7-1.1 cm)LVIDd: 4.2 cm (3.7-5.4 cm) LVPWd: 0.92 cm (0.7-1.1 cm)LVIDs: 3.1 cm (2.3-3.6 cm) LA dimension: 2.4 cm (2.3-4.0 cm)Ao root diam: 3.2 cm(2.0-3.6 cm) asc Aorta Diam: 3.1 cm(2.1-3.4cm) Doppler with Normals RVSP(TR): 26.7 mmHg (18-35mmHg) LV V1 max: 80.6 cm/sec (0.7-1.7m/s)MV E max barry: 64.8 cm/sec(0.8-1.3m/s) MV A max barry: 75.2 cm/sec(0.0-0.0m/s) MV E/A: 0.86 (<1.5) MMode/2D Measurements Calculations TAPSE: 2.2 cm FS: 26.7 % Ao root area: LVOT diam: 2.3 cm RV S Barry: EDV(Teich): 8.3 cm2 LVOT area: 4.1 cm2 11.7 cm/sec 78.8 ml ESV(Teich): 37.4 ml EF(Teich): 52.5 % __ LVLd ap4: 6.9 cm SV(MOD-sp4): LAV(MOD-sp4): LA A2 area: 8.3 cm2 EDV(MOD-sp4): 38.0 ml 8.9 ml 69.7 ml LAV(MOD-sp2): LA A4 area: 6.3 cm2 LVLs ap4: 5.9 cm 13.8 ml LA length (vol): ESV(MOD-sp4): 3.0 cm 31.7 ml LA vol: 14.8 ml EF(MOD-sp4): 54.5 % LA vol index: 11.7 ml/m2 Doppler Measurements Calculations MV dec time: E/E' lat: 9.2 MV dec slope: Ao V2 max: 0.15 sec E/E' med: 13.0 107.8 cm/sec 428.3 cm/sec2 Ao max P.6 mmHg Ao mean P.4 mmHg Ao V2 mean: 70.1 cm/sec Ao V2 VTI: 16.5 cm ISABELA(I,D): 4.0 cm2 ISABELA(V,D): 3.1 cm2 __ AI max barry: LV V1 max PG: TV max P.0 mmHgTR max barry: 422.1 cm/sec 2.6 mmHg 243.4 cm/sec AI max P.3 mmHg LV V1 mean PG: TR max PG: AI dec slope: 1.3 mmHg 23.7 mmHg 263.4 cm/sec2 LV V1 mean: RAP systole: AI P1/2t: 469.5 msec 49.9 cm/sec 3.0 mmHg LV V1 VTI: 15.8 cm Transcribed By: SCV Performed At: 11/30/21 1341 Signed By: Shun Coleman MD, [facility] 11/30/21 1504 Normal [facility] ISTAT XRay CREon 11-30-2021 Creatinine [Mass/Vol] 0.9 mg/dL Normal 0.6-1.3 [facility] Comment on above: Result Comment: ER/E SD physician is notified/shown all ISTAT results. Critical values may be confirmed by laboratory testing if deemed necessary by ER attending doctor. Performed By: #### I SCRE #### [address] Point of Care testing , ISTAT GFR ( > 60 Normal [facility] Comment on above: Result Comment: GFR estimated reference range: According to KDOQI guidelines, <60 ml/min/1.73m2 is sufficient to diagnose a patient with chronic kidney disease. PERFORMED BY: [place] [place] [address] PATHOLOGIST PAN DEVULCANIZER HELPER KIM FLEMING M.D. Performed By: #### I SCRE #### [address] Point of Care testing , ISTAT GFR (Non- Am > 60 Normal [facility] Comment on above: Performed By: #### I SCRE #### [facility] [address] Point of Care testing , No Panel InformationOrdered By: Merry Mejias on 11-30-2021 POC Estimated GFR > 60 [facility] Comment on above: GFR estimated refere nce range: According to KDOQI guidelines, <60 ml/min/1.73m2 is sufficient to diagnose a patient with chronic kidney disease. POC Estimated GFR Non- Amer > 60 [facility] CREATININEon 11-10-2021 Creatinine [Mass/Vol] 0.96 mg/dL Normal 0.55-1.02 [facility] Comment on above: Performed By: #### C QIAN, LIPID #### [facility] [address] [place] [address] Dr. Martell Epperson EGFR-AF POLISH >60 Normal >=60 [facility] Comment on above: Performed By: #### C QIAN, LIPID #### [facility] [address] [address] [address] Martell Epperson EGFR-NON AF POLISH =60 Normal >=60 [facility] Comment on above: Performed By: #### C QIAN, LIPID #### [facility] [address] [address] [address] Martell Epperson LIPID PROFILEon 11-10-2021 CHOL-HDL RATIO NORM SEE BELOW Normal [facility] Comment on above: Result Comment: 3.3 - 4.4 LOW RISK 4.4 - 7.1 AVERAGE RISK 7.1 - 11.0 MODERATE RISK >11.0 HIGH RISK Performed By: #### C QIAN, LIPID #### [facility] [address] [address] [address] Martell Epperson Cholesterol [Mass/Vol] 250 mg/dL Critically high <=200 [facility] Comment on above: Performed By: #### C QIAN, LIPID #### [facility] [address] [address] [address] Martell Epperson Cholesterol in HDL [Mass/Vol] 51 mg/dL Normal 40-60 [facility] Comment on above: Performed By: #### C QIAN, LIPID #### [facility] [address] [address] [address] Martell Epperson Cholesterol in LDL [Mass/Vol] 158.2 mg/dL Normal [facility] Comment on above: Performed By: #### C QIAN, LIPID #### [facility] [address] [address] [address] Martell Epperson Cholesterol.total/Ch olesterol in HDL [Mass ratio] 4.9 {ratio} Normal [facility] Comment on above: Performed By: #### C QIAN, LIPID #### [facility] [address] [place] [address] Dr. Martell Epperson HDL NORMAL > or = 60 mg/dl - LO W CARDIOVASCULAR RISK <40 mg/dl - HIGH CARDIOVASCULAR RISK Normal [facility] Comment on above: Performed By: #### C QIAN, LIPID #### [facility] [address] [place] [address] Dr. Martell Epperson LDL CALC NORMAL SEE BELOW Normal [facility] Comment on above: Result Comment: <100 mg/dl OPTIMAL 100 - 129 mg/dl NEAR OR ABOVE OPTIMAL 130 - 159 mg/dl BORDERLINE HIGH 160 - 189 mg/dl HIGH >190 mg/dl VERY HIGH Performed By: #### C QIAN, LIPID #### [facility] [address] [place] [address] Dr. aMrtell Epperson Triglyceride [Mass/Vol] 204 mg/dL Critically high <=150 [facility] Comment on above: Performed By: #### C QIAN, LIPID #### [facility] [address] [place] [address] Dr. Martell Epperson VLDL CALC 40.8 mg/dL Normal [facility] Comment on above: Performed By: #### C QIAN, LIPID #### [facility] [address] [place], [place] [id number] Dr. Martell Epperson US KIDNEYSon 11-04-2021 US KIDNEYS US KIDNEYS EXAM DATE: 11/04/2021 12:53 PM MDT COMPARISON: Abdomen radiograph 11/04/2021 INDICATION: Recurrent UTI TECHNIQUE: Real-time ultrasound scanning of the kidneys and bladder was performed by the network systems operator. Tube Drawing Supervisor static images are submitted for review. FINDINGS: Right Kidney: The right kidney measures 10 x 4.2 x 4 cm and has a volume of 89 mL. Normal echogenicity. No hydronephrosis. A focal echogenicity with twinkle artifact measures 4 x 4 by 2 mm. No obvious contour deforming lesion or solid renal mass. Renal cortex measures 1.1 cm. Left Kidney: The left kidney measures 9.4 x 4.9 x 5.3 cm and has a volume of 128 mL. Normal echogenicity. No hydronephrosis. No shadowing calculi. No obvious contour deforming lesion or solid renal mass. Renal cortex measures 1.4 cm. Bladder: Bladder volume measures up to 180 mL. Postvoid residual is 6 mL. No focal or diffuse bladder wall thickening noted. Bilateral ureteral jets visualized. IMPRESSION: 1. No hydronephrosis. 2. Nonobstructive right renal calculus measures up to 4 mm. 3. PVR of 60 mL. Electronically authenticated by: DENISE AHUMADA Date: 2021-11-04 16:02 Normal [facility] XR KUB 1 VIEWon 11-04-2021 XR KUB 1 VIEW EXAM: XR KUB 1 VIEW HISTORY: Urinary tract infectious disease COMPARISON: None. TECHNIQUE: AP supine and portable KUB abdomen FINDINGS: There is a fair amount of gas and fecal material throughout the colon, without evidence of obstruction or small bowel ileus. Surgical clips are seen in the right upper quadrant. Vascular calcifications are seen in the abdomen and pelvis. Multiple calcifications are seen in the pelvis, which have the appearance of phleboliths, although a distal ureteral calculus would be difficult to exclude. IMPRESSION: Unremarkable bowel gas pattern, without evidence of bowel obstruction. No calcifications project over the kidneys. Numerous calcifications are seen in the pelvis, as described. Comparison with a previous study may be helpful. Electronically authenticated by: TORIN KELLY Date: 2021-11-04 15:36 Normal [facility] MRI BRAIN WO W CONon 022 MRI BRAIN WO W CON EXAMINATION: MRI BRA IN WO W CON HISTORY: Primary malignant neoplasm of bronchus COMPARISON: 02/15/2021 TECHNIQUE: A variety of imaging planes and parameters were utilized for visualization of suspected pathology. Images were performed with 6 ml Dotarem contrast. FINDINGS: CEREBRUM: Extensive stable white matter signal abnormality. 5 mm focus of restricted diffusion identified in the left parietal lobe, diffusion image 39, without postcontrast enhancement CEREBELLUM: No edema, hemorrhage, mass, acute infarction, or inappropriate atrophy. BRAINSTEM: No edema, hemorrhage, mass, acute infarction, or inappropriate atrophy. CSF SPACES: Ventricles, cisterns, and sulci are appropriate for age. No hydrocephalus, subarachnoid hemorrhage, or mass. SKULL: No mass or other significant visible lesion. SINUSES: Limited views demonstrate no significant mucosal thickening or fluid. ORBITS: Limited views are unremarkable. OTHER: No abnormal meningeal or parenchymal enhancement. All results initiated through operations IMPRESSION: 5 mm focus of restricted diffusion in the left parietal lobe. An acute infarct should be considered. No enhancing mass to suggest metastatic disease to the brain Electronically authenticated by: CHRIS MOJICA Date: 2021-09-21 21:57 Normal [facility] CT Chest W contrast Jaz IMPRESSION: 1. Mild patchy airspace opacification within the lingula, favored to be infectious/inflammation. Continued attention on subsequent studies is suggested. 2. Since 02/25/2021, unchanged groundglass opacities within the right middle lobe measuring up to 0.5 cm. 3. 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 4. Unchanged moderate intrahepatic biliary ductal dilatation. Transcribe Date/Time: Sep 07 2021 11:04A Dictated by: KAYCE RODRIGUEZ MD This examination was interpreted and the report reviewed and electronically signed by: KAYCE RODRIGUEZ MD on Sep 07 2021 12:23PM EST Thank you for allowing us to participate in the care of your patient. Should there be any questions regarding this interpretation, please call [phone]. If you are unable to reach us at the number above, please feel free to contact [facility] at [phone]. FRED_DO_NOT _USE_DIVIS ION OF RADIOLOGY * * *Final Report* * * DATE OF EXAM: Sep 07 2021 10:47AM [facility] 0539 - CT CHEST W IVCON / PROCEDURE REASON: Malignant neoplasm of unspecified part of unspecified bronchus or lung (HCC) * * * * Physician Interpretation * * * * RESULT: EXAMINATION: CHEST CT WITH CONTRAST CLINICAL HISTORY: Non-small cell lung cancer, squamous, metastatic, post first-line therapy, assess tx response Technique: Spiral CT acquisition of the chest from the thoracic inlet to the upper abdomen following IV contrast. MQ: CTCW_6 Contrast: 50 mL Omnipaque [address] Radiation dose: Integrated Dose-length product (DLP) for this visit = 110 mGy*cm CT Dose Reduction Employed: Automated exposure control (AEC) Comparison: CT chest 02/25/2021; 07/30/2020 RESULT: Limitations: None. Lines, tubes, and devices: None. Lung parenchyma and airways: Since 02/25/2021, there is unchanged right upper lobe and right suprahilar bandlike consolidation and adjacent juxtapleural scarring, likely related to postradiation fibrosis. No new or enlarging nodule is identified within this region. Groundglass opacities within the right middle lobe measuring up to 0.5 cm (series 3, image 94 and 120) are unchanged. There is new focal patchy airspace opacification within the inferior lingula (series 3, image 139) favored to be infectious/inflammatory. There is unchanged mild diffuse centrilobular emphysema. The central tracheobronchial tree is patent. Pleural space: No pleural effusion. No pleural thickening. Lower neck, lymph nodes, and mediastinum: The imaged thyroid is unremarkable. There are no enlarged supraclavicular, axillary, mediastinal or hilar lymph nodes. Subcentimeter short axis mediastinal lymph nodes are unchanged. Heart, pericardium, and thoracic vessels: The thoracic aorta and main pulmonary artery are normal in caliber. The cardiac chambers are normal in size. Coronary artery atherosclerotic calcifications are noted, although the study is not optimized for coronary assessment. No pericardial effusion or thickening. Bones and soft tissues: There are no destructive lytic or blastic osseous abnormalities. Upper abdomen: There is unchanged partially imaged moderate intrahepatic biliary ductal dilatation. The gallbladder is absent. [employer] (topogram) images: No additional findings. ZZZ_DO_NOT _USE_DIVIS [facility] RADIOLOGY Provider, [facility] - 09/07/2021 * * *Final Report* * * DATE OF EXAM: Sep 07 2021 10:47AM [facility] 0539 - CT CHEST W IVCON / PROCEDURE REASON: Malignant neoplasm of unspecified part of unspecified bronchus or lung (HCC) * * * * Physician Interpretation * * * * RESULT: EXAMINATION: CHEST CT WITH CONTRAST CLINICAL HISTORY: Non-small cell lung cancer, squamous, metastatic, post first-line therapy, assess tx response Technique: Spiral CT acquisition of the chest from the thoracic inlet to the upper abdomen following IV contrast. MQ: CTCW_6 Contrast: 50 mL Omnipaque [address] Radiation dose: Integrated Dose-length product (DLP) for this visit = 110 mGy*cm CT Dose Reduction Employed: Automated exposure control (AEC) Comparison: CT chest 02/25/2021; 07/30/2020 RESULT: Limitations: None. Lines, tubes, and devices: None. Lung parenchyma and airways: Since 02/25/2021, there is unchanged right upper lobe and right suprahilar bandlike consolidation and adjacent juxtapleural scarring, likely related to postradiation fibrosis. No new or enlarging nodule is identified within this region. Groundglass opacities within the right middle lobe measuring up to 0.5 cm (series 3, image 94 and 120) are unchanged. There is new focal patchy airspace opacification within the inferior lingula (series 3, image 139) favored to be infectious/inflammatory. There is unchanged mild diffuse centrilobular emphysema. The central tracheobronchial tree is patent. Pleural space: No pleural effusion. No pleural thickening. Lower neck, lymph nodes, and mediastinum: The imaged thyroid is unremarkable. There are no enlarged supraclavicular, axillary, mediastinal or hilar lymph nodes. Subcentimeter short axis mediastinal lymph nodes are unchanged. Heart, pericardium, and thoracic vessels: The thoracic aorta and main pulmonary artery are normal in caliber. The cardiac chambers are normal in size. Coronary artery atherosclerotic calcifications are noted, although the study is not optimized for coronary assessment. No pericardial effusion or thickening. Bones and soft tissues: There are no destructive lytic or blastic osseous abnormalities. Upper abdomen: There is unchanged partially imaged moderate intrahepatic biliary ductal dilatation. The gallbladder is absent. [employer] (topogram) images: No additional findings. IMPRESSION IMPRESSION: 1. Mild patchy airspace opacification within the lingula, favored to be infectious/inflammation. Continued attention on subsequent studies is suggested. 2. Since 02/25/2021, unchanged groundglass opacities within the right middle lobe measuring up to 0.5 cm. 3. 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 4. Unchanged moderate intrahepatic biliary ductal dilatation. Transcribe Date/Time: Sep 07 2021 11:04A Dictated by: KAYCE RODRIGUEZ MD This examination was interpreted and the report reviewed and electronically signed by: KAYCE RODRIGUEZ MD on Sep 07 2021 12:23PM EST Thank you for allowing us to participate in the care of your patient. Should there be any questions regarding this interpretation, please call [phone]. If you are unable to reach us at the number above, please feel free to contact [facility]Radiology at [phone]. [facility] Radiology Study observation (narrative) [facility] CT Chest W contrast IVOrdere d By: [facility] Provider on 09-07-2021 [facility] CULTURE URINEon 08-26-2021 CULTURE URINE Culture Observations : LIGHT GROWTH OF MIXED GENITAL SULEIMAN. NO POTENTIAL PATHOGENS SEEN. Normal [facility] Comment on above: Performed By: #### U RCX #### [facility] [address] [place] [address] Dr. Martell Epperson UA RANDOMon 08-26-2021 Bilirubin Ql (U) Negative Normal NEGATIVE [facility] Comment on above: Performed By: #### U A #### [facility] [address] [place] [address] Dr. Martell Epperson Clarity (U) CLEAR Normal CLEAR [facility] Comment on above: Performed By: #### U A #### [facility] [address] [address] [address] Martell Epperson Color (U) DK. YELLOW Normal YELLOW [facility] Comment on above: Performed By: #### U A #### [facility] [address] [address] [address] Martell Epperson Glucose Ql (U) Negative Normal NEGATIVE [facility] Comment on above: Performed By: #### U A #### [facility] [address] [place] [address] Dr. Martell Epperson Hemoglobin Ql (U) Negative Normal NEGATIVE [facility] Comment on above: Performed By: #### U A #### [facility] [address] [place] [address] Dr. Martell Epperson Ketones Ql (U) Negative Normal NEGATIVE [facility] Comment on above: Performed By: #### U A #### [facility] [address] [place] [address] Dr. Martell Epperson LEUKOCYTES Negative Normal NEGATIVE [facility] Comment on above: Performed By: #### U A #### [facility] [address] [place] [address] Dr. Martell Epperson Nitrite Ql (U) Negative Normal NEGATIVE [facility] Comment on above: Performed By: #### U A #### [facility] [address] [place] [address] Dr. Martell Epperson pH (U) 5.0 [pH] Normal 5-9 [facility] Comment on above: Performed By: #### U A #### [facility] [address] [place] [address] Dr. Martell Epperson SPEC GRAVITY 1.025 Normal 1.005-<=1.0 25 [facility] Comment on above: Performed By: #### U A #### [facility] [address] [place] [address] Dr. Martell Epperson UA PROTEIN Negative Normal NEGATIVE/ TRACE [facility] Comment on above: Performed By: #### U A #### [facility] [address] [place] [address] Dr. Martell Epperson Urobilinogen Qn (U) 0.2 {Emiliano'U}/dL Normal 0.2 - 1. 0 [facility] Comment on above: Performed By: #### U A #### [facility] [address] [place] [address] Chest W contrast Jaz IMPRESSION: 1. Right upper lobe post radiation change, increased since 08/07/20, now obscuring the previously described reticulonodular opacity. 2. Other small subcentimeter groundglass opacities in the right lung, stable. Transcribe Date/Time: Feb 25 2021 8:56A Dictated by: KIANA CARVAJAL MD This examination was interpreted and the report reviewed and electronically signed by: KIANA CARVAJAL MD on Feb 25 2021 10:05AM EST Thank you for allowing us to participate in the care of your patient. Should there be any questions regarding this interpretation, please call [phone]. If you are unable to reach us at the number above, please feel free to contact [facility] at [phone]. DIVISION OF RADIOLOGY * * *Final Report* * * DATE OF EXAM: Feb 25 2021 8:55AM [facility] 0539 - CT CHEST W IVCON / PROCEDURE REASON: Lung nodules * * * * Physician Interpretation * * * * RESULT: EXAMINATION: CHEST CT WITH CONTRAST CLINICAL HISTORY: Lung nodules Technique: Spiral CT acquisition of the chest from the thoracic inlet to the upper abdomen following IV contrast. MQ: CTCWR_5 Contrast: 50 mL Omnipaque [address] Dose-Length Product: 123 mGy*cm CT Dose Reduction Employed: Automated exposure control (AEC) Comparison: 08/07/20 RESULT: Limitations: None. Lines, tubes, and devices: None. Lung parenchyma and pleura: Right upper lobe patchy opacities are most likely due to post radiation change and/or other infectious/inflammatory etiologies, increased and now obscures the previously noted nodular opacity. Right middle lobe groundglass opacities measuring up to 5 mm (image 3: 94, 121) are stable. No pleural effusion. Central airways are patent. Thoracic inlet, heart, and mediastinum: No lymphadenopathy in the axillary, mediastinal, or hilar regions. The thoracic aorta and main pulmonary artery are normal in caliber. The cardiac chambers are normal in size. Atherosclerotic coronary artery calcifications are noted. No pericardial effusion or thickening. Bones and soft tissues: No suspicious lytic or blastic osseous lesions. Upper abdomen: No evidence of an adrenal mass. Cholecystectomy clips. Mild intrahepatic biliary ductal dilatation. DIVISION OF RADIOLOGY Provider, [facility] - 02/25/2021 * * *Final Report* * * DATE OF EXAM: Feb 25 2021 8:55AM [facility] 0539 - CT CHEST W IVCON / PROCEDURE REASON: Lung nodules * * * * Physician Interpretation * * * * RESULT: EXAMINATION: CHEST CT WITH CONTRAST CLINICAL HISTORY: Lung nodules Technique: Spiral CT acquisition of the chest from the thoracic inlet to the upper abdomen following IV contrast. MQ: CTCWR_5 Contrast: 50 mL Omnipaque [address] Dose-Length Product: 123 mGy*cm CT Dose Reduction Employed: Automated exposure control (AEC) Comparison: 08/07/20 RESULT: Limitations: None. Lines, tubes, and devices: None. Lung parenchyma and pleura: Right upper lobe patchy opacities are most likely due to post radiation change and/or other infectious/inflammatory etiologies, increased and now obscures the previously noted nodular opacity. Right middle lobe groundglass opacities measuring up to 5 mm (image 3: 94, 121) are stable. No pleural effusion. Central airways are patent. Thoracic inlet, heart, and mediastinum: No lymphadenopathy in the axillary, mediastinal, or hilar regions. The thoracic aorta and main pulmonary artery are normal in caliber. The cardiac chambers are normal in size. Atherosclerotic coronary artery calcifications are noted. No pericardial effusion or thickening. Bones and soft tissues: No suspicious lytic or blastic osseous lesions. Upper abdomen: No evidence of an adrenal mass. Cholecystectomy clips. Mild intrahepatic biliary ductal dilatation. IMPRESSION IMPRESSION: 1. Right upper lobe post radiation change, increased since 08/07/20, now obscuring the previously described reticulonodular opacity. 2. Other small subcentimeter groundglass opacities in the right lung, stable. Transcribe Date/Time: Feb 25 2021 8:56A Dictated by: KIANA CARVAJAL MD This examination was interpreted and the report reviewed and electronically signed by: KIANA CARVAJAL MD on Feb 25 2021 10:05AM EST Thank you for allowing us to participate in the care of your patient. Should there be any questions regarding this interpretation, please call [phone]. If you are unable to reach us at the number above, please feel free to contact [facility]Radiology at [phone]. [facility] Radiology Study observation (narrative) [facility] CT Chest W contrast IVOrdere d By: [facility] Provider on 02-25-2021 [facility] Vital Signs Date Time Vital Sign Value Performing Clinician Facility 05-02-2024 12:51-0500 Diastolic blood pressure 80 mm[Hg] Arya Rdz MD Work Phone: [facility] Comment on above: recheck 05-02-2024 12:51-0500 Systolic blood pressure 163 mm[Hg] Arya Rdz MD Work Phone: [facility] Comment on above: recheck 05-02-2024 12:48-0500 Body mass index (BMI) [Ratio] 18.05 kg/m2 Arya Rdz MD Work Phone: [facility] 05-02-2024 12:48-0500 Body temperature 97.11 [degF] Arya Rdz MD Work Phone: [facility] 05-02-2024 12:48-0500 Body weight 41.7 kg Arya Rdz MD Work Phone: [facility] 05-02-2024 12:48-0500 Heart rate 106 /min Arya Rdz MD Work Phone: [facility] 05-02-2024 12:48-0500 Respiratory rate 18 /min Arya Rdz MD Work Phone: [facility] 05-02-2024 12:48-0500 SaO2% (BldA) [Mass fraction] 99 % Arya Rdz MD Work Phone: [facility] 03-21-2024 13:03-0500 Diastolic blood pressure 80 mm[Hg] Arya Rdz MD Work Phone: [facility] 03-21-2024 13:03-0500 Systolic blood pressure 157 mm[Hg] Arya Rdz MD Work Phone: [facility] 03-21-2024 13:01-0500 Body height 152 cm Arya Rdz MD Work Phone: [facility] 03-21-2024 13:01-0500 Body mass index (BMI) [Ratio] 17.96 kg/m2 Arya Rdz MD Work Phone: [facility] 03-21-2024 13:01-0500 Body temperature 97.5 [degF] Arya Rdz MD Work Phone: [facility] 03-21-2024 13:01-0500 Body weight 41.5 kg Arya Rdz MD Work Phone: [facility] 03-21-2024 13:01-0500 Heart rate 118 /min Arya Rdz MD Work Phone: [facility] 03-21-2024 13:01-0500 Respiratory rate 16 /min Arya Rdz MD Work Phone: [facility] 03-21-2024 13:01-0500 SaO2% (BldA) [Mass fraction] 98 % Arya Rdz MD Work Phone: [facility] 03-14-2024 13:00-0500 Body weight 42.19 kg Fidelia Garcia [employer] Work Phone: [facility] 03-14-2024 13:00-0500 Diastolic blood pressure 83 mm[Hg] Fidelia Garcia TRAVEL TRA[employer]ER [employer] Work Phone: [facility] 03-14-2024 13:00-0500 Heart rate 87 /min Fidelia Garcia TRAVEL TRAILER [employer]ER Work Phone: [facility] 03-14-2024 13:00-0500 Systolic blood pressure 144 mm[Hg] Fidelia Garcia TRAVEL TRAILER [employer]ER Work Phone: [facility] 02-28-2024 14:16-0500 Body height 152 cm Noemí Daviser PA-C Work Phone: [facility] 02-28-2024 14:16-0500 Body mass index (BMI) [Ratio] 18.26 kg/m2 Noemí Samreen PA-C Work Phone: [facility] 02-28-2024 14:16-0500 Body temperature 97.7 [degF] Noemí Daviser PA-C Work Phone: [facility] 02-28-2024 14:16-0500 Body weight 42.2 kg Noemí Samreen PA-C Work Phone: [facility] 02-28-2024 14:16-0500 Diastolic blood pressure 81 mm[Hg] Noemí Samreen PA-C Work Phone: [facility] 02-28-2024 14:16-0500 Heart rate 111 /min Noemí Samreen PA-C Work Phone: [facility] 02-28-2024 14:16-0500 Respiratory rate 16 /min Noemí Samreen PA-C Work Phone: [facility] 02-28-2024 14:16-0500 SaO2% (BldA) [Mass fraction] 95 % Noemí Samreen PA-C Work Phone: [facility] 02-28-2024 14:16-0500 Systolic blood pressure 160 mm[Hg] Noemí Samreen PA-C Work Phone: [facility] 02-19-2024 12:46-0500 Diastolic blood pressure 71 mm[Hg] [employer] Work Phone: [facility] 02-19-2024 12:46-0500 Heart rate 87 /min [employer] Work Phone: [facility] 02-19-2024 12:46-0500 Respiratory rate 16 /min [employer] Work Phone: [facility] 02-19-2024 12:46-0500 SaO2% (BldA) [Mass fraction] 94 % [employer] Work Phone: [facility] 02-19-2024 12:46-0500 Systolic blood pressure 161 mm[Hg] [employer] Work Phone: [facility] 02-15-2024 10:57-0500 Body height 152 cm Alfredo More MD Work Phone: [facility] 02-15-2024 10:57-0500 Body mass index (BMI) [Ratio] 16.62 kg/m2 Alfredo More MD Work Phone: [facility] 02-15-2024 10:57-0500 Body temperature 98.2 [degF] Alfredo More MD Work Phone: [facility] 02-15-2024 10:57-0500 Body weight 38.4 kg Alfredo More MD Work Phone: [facility] 02-15-2024 10:57-0500 Diastolic blood pressure 93 mm[Hg] Alfredo More MD Work Phone: [facility] Comment on above: notified 02-15-2024 10:57-0500 Heart rate 96 /min Alfredo More MD Work Phone: [facility] Comment on above: notified 02-15-2024 10:57-0500 Respiratory rate 17 /min Alfredo More MD Work Phone: [facility] 02-15-2024 10:57-0500 SaO2% (BldA) [Mass fraction] 95 % Alfredo More MD Work Phone: [facility] 02-15-2024 10:57-0500 Systolic blood pressure 198 mm[Hg] Alfredo More MD Work Phone: [facility] Comment on above: notified 02-07-2024 12:41-0500 Diastolic blood pressure 75 mm[Hg] Noemí Samreen PA-C Work Phone: [facility] Comment on above: recheck BP 02-07-2024 12:41-0500 Systolic blood pressure 184 mm[Hg] Noemí Samreen PA-C Work Phone: [facility] Comment on above: recheck BP 02-07-2024 12:37-0500 Body height 153.5 cm Noemí Samreen PA-C Work Phone: [facility] 02-07-2024 12:37-0500 Body mass index (BMI) [Ratio] 16.13 kg/m2 Noemí Samreen PA-C Work Phone: [facility] 02-07-2024 12:37-0500 Body temperature 96.69 [degF] Noemí Samreen PA-C Work Phone: [facility] 02-07-2024 12:37-0500 Body weight 38 kg Noemí Samreen PA-C Work Phone: [facility] 02-07-2024 12:37-0500 Heart rate 85 /min Noemí Samreen PA-C Work Phone: [facility] 02-07-2024 12:37-0500 Respiratory rate 16 /min Noemí Samreen PA-C Work Phone: [facility] 02-07-2024 12:37-0500 SaO2% (BldA) [Mass fraction] 98 % Noemí Samreen PA-C Work Phone: [facility] 01-12-2024 14:40-0400 Body mass index (BMI) [Ratio] 16.09 kg/m2 Arya Rdz MD Work Phone: [facility] 01-12-2024 14:40-0400 Body temperature 97.39 [degF] Arya Rdz MD Work Phone: [facility] 01-12-2024 14:40-0400 Body weight 37.9 kg Arya Rdz MD Work Phone: [facility] 01-12-2024 14:40-0400 Diastolic blood pressure 88 mm[Hg] Arya Rdz MD Work Phone: [facility] 01-12-2024 14:40-0400 Heart rate 92 /min Arya Rdz MD Work Phone: [facility] 01-12-2024 14:40-0400 Respiratory rate 18 /min Arya Rdz MD Work Phone: [facility] 01-12-2024 14:40-0400 SaO2% (BldA) [Mass fraction] 100 % Arya Rdz MD Work Phone: [facility] 01-12-2024 14:40-0400 Systolic blood pressure 172 mm[Hg] Arya Rdz MD Work Phone: [facility] 12-27-2023 13:05-0400 Body height 153.5 cm Arya Rdz MD Work Phone: [facility] 12-27-2023 13:05-0400 Body mass index (BMI) [Ratio] 15.87 kg/m2 Arya Rdz MD Work Phone: [facility] 12-27-2023 13:05-0400 Body temperature 97.59 [degF] Arya Rdz MD Work Phone: [facility] 12-27-2023 13:05-0400 Body weight 37.4 kg Arya Rdz MD Work Phone: [facility] 12-27-2023 13:05-0400 Diastolic blood pressure 77 mm[Hg] Arya Rdz MD Work Phone: [facility] 12-27-2023 13:05-0400 Heart rate 102 /min Aray Rdz MD Work Phone: [facility] 12-27-2023 13:05-0400 Respiratory rate 16 /min Arya Rdz MD Work Phone: [facility] 12-27-2023 13:05-0400 SaO2% (BldA) [Mass fraction] 97 % Arya Rdz MD Work Phone: [facility] 12-27-2023 13:05-0400 Systolic blood pressure 131 mm[Hg] Arya Rdz MD Work Phone: [facility] 11-15-2023 13:48-0400 Body height 153.5 cm Arya Rdz MD Work Phone: [facility] 11-15-2023 13:48-0400 Body mass index (BMI) [Ratio] 15.66 kg/m2 Arya Rdz MD Work Phone: [facility] 11-15-2023 13:48-0400 Body temperature 97.2 [degF] Arya Rdz MD Work Phone: [facility] 11-15-2023 13:48-0400 Body weight 36.9 kg Arya Rdz MD Work Phone: [facility] 11-15-2023 13:48-0400 Diastolic blood pressure 79 mm[Hg] Arya Rdz MD Work Phone: [facility] 11-15-2023 13:48-0400 Heart rate 92 /min Arya Rdz MD Work Phone: [facility] 11-15-2023 13:48-0400 Respiratory rate 16 /min Arya Rdz MD Work Phone: [facility] 11-15-2023 13:48-0400 SaO2% (BldA) [Mass fraction] 98 % Arya Rdz MD Work Phone: [facility] 11-15-2023 13:48-0400 Systolic blood pressure 173 mm[Hg] Arya Rdz MD Work Phone: [facility] 11-07-2023 09:58-0400 Blood Pressure Location JESSIKA ESQUIVEL [facility] 11-07-2023 09:58-0400 Diastolic blood pressure 84 mm[Hg] JESSIKA ESQUIVEL [facility] 11-07-2023 09:58-0400 Heart rate 92 /min JESSIKA ESQUIVEL [facility] 11-07-2023 09:58-0400 Systolic blood pressure 156 mm[Hg] JESSIKA ESQUIVEL [facility] 10-03-2023 13:42-0400 Body height 153.5 cm Stacy Adhikari MD Work Phone: [facility] 10-03-2023 13:42-0400 Body mass index (BMI) [Ratio] 16 kg/m2 Stacy Adhikari MD Work Phone: [facility] 10-03-2023 13:42-0400 Body temperature 97.11 [degF] Stacy Adhikari MD Work Phone: [facility] 10-03-2023 13:42-0400 Body weight 37.7 kg Stacy Adhikari MD Work Phone: [facility] 10-03-2023 13:42-0400 Diastolic blood pressure 85 mm[Hg] Stacy Adhikari MD Work Phone: [facility] 10-03-2023 13:42-0400 Heart rate 96 /min Stacy Adhikari MD Work Phone: [facility] 10-03-2023 13:42-0400 Respiratory rate 16 /min Stacy Adhikari MD Work Phone: [facility] 10-03-2023 13:42-0400 SaO2% (BldA) [Mass fraction] 100 % Stacy Adhikari MD Work Phone: [facility] 10-03-2023 13:42-0400 Systolic blood pressure 176 mm[Hg] Stacy Adhikari MD Work Phone: [facility] 08-22-2023 13:41-0400 Body height 153.5 cm Stacy Adhikari MD Work Phone: [facility] 08-22-2023 13:41-0400 Body mass index (BMI) [Ratio] 16.38 kg/m2 Stacy Adhikari MD Work Phone: [facility] 08-22-2023 13:41-0400 Body temperature 97.39 [degF] Stacy Adhikari MD Work Phone: [facility] 08-22-2023 13:41-0400 Body weight 38.6 kg Stacy Adhikari MD Work Phone: [facility] 08-22-2023 13:41-0400 Diastolic blood pressure 91 mm[Hg] Stacy Adhikari MD Work Phone: [facility] 08-22-2023 13:41-0400 Heart rate 90 /min Stacy Adhikari MD Work Phone: [facility] 08-22-2023 13:41-0400 Respiratory rate 16 /min Stacy Adhikari MD Work Phone: [facility] 08-22-2023 13:41-0400 SaO2% (BldA) [Mass fraction] 97 % Stacy Adhikari MD Work Phone: [facility] 08-22-2023 13:41-0400 Systolic blood pressure 166 mm[Hg] Stacy Adhikari MD Work Phone: [facility] 07-11-2023 13:55-0400 Diastolic blood pressure 74 mm[Hg] Noemí Samreen PA-C Work Phone: [facility] Comment on above: recheck 07-11-2023 13:55-0400 Systolic blood pressure 169 mm[Hg] Noemí Samreen PA-C Work Phone: [facility] Comment on above: recheck 07-11-2023 13:54-0400 Body height 153.5 cm Noemí Samreen PA-C Work Phone: [facility] 07-11-2023 13:54-0400 Body mass index (BMI) [Ratio] 16.89 kg/m2 Noemí Samreen PA-C Work Phone: [facility] 07-11-2023 13:54-0400 Body temperature 97.11 [degF] Noemí Samreen PA-C Work Phone: [facility] 07-11-2023 13:54-0400 Body weight 39.8 kg Noemí Samreen PA-C Work Phone: [facility] 07-11-2023 13:54-0400 Heart rate 87 /min Noemí Samreen PA-C Work Phone: [facility] 07-11-2023 13:54-0400 Respiratory rate 16 /min Noemí Samreen PA-C Work Phone: [facility] 07-11-2023 13:54-0400 SaO2% (BldA) [Mass fraction] 99 % Noemí Samreen PA-C Work Phone: [facility] 06-20-2023 13:17-0400 Body height 153.5 cm Stacy Adhikari MD Work Phone: [facility] 06-20-2023 13:17-0400 Body temperature 97.81 [degF] Stacy Adhikari MD Work Phone: [facility] 06-20-2023 13:17-0400 Body weight 39.9 kg Stacy Adhikari MD Work Phone: [facility] 06-20-2023 13:17-0400 Diastolic blood pressure 78 mm[Hg] Stacy Adhikari MD Work Phone: [facility] 06-20-2023 13:17-0400 Heart rate 97 /min Stacy Adhikari MD Work Phone: [facility] 06-20-2023 13:17-0400 Respiratory rate 16 /min Stacy Adhikari MD Work Phone: [facility] 06-20-2023 13:17-0400 SaO2% (BldA) [Mass fraction] 96 % Stacy Adhikari MD Work Phone: [facility] 06-20-2023 13:17-0400 Systolic blood pressure 146 mm[Hg] Stacy Adhikari MD Work Phone: [facility] 05-30-2023 13:17-0400 Body height 153.5 cm Noemí Samreen PA-C Work Phone: [facility] 05-30-2023 13:17-0400 Body temperature 97.2 [degF] Noemí Samreen PA-C Work Phone: [facility] 05-30-2023 13:17-0400 Body weight 39.6 kg Noemí Samreen PA-C Work Phone: [facility] 05-30-2023 13:17-0400 Diastolic blood pressure 84 mm[Hg] Noemí Samreen PA-C Work Phone: [facility] 05-30-2023 13:17-0400 Heart rate 91 /min Noemí Samreen PA-C Work Phone: [facility] 05-30-2023 13:17-0400 Respiratory rate 16 /min Noemí Samreen PA-C Work Phone: [facility] 05-30-2023 13:17-0400 SaO2% (BldA) [Mass fraction] 99 % Noemí Samreen PA-C Work Phone: [facility] 05-30-2023 13:17-0400 Systolic blood pressure 156 mm[Hg] Noemí Samreen PA-C Work Phone: [facility] 05-09-2023 14:21-0500 Body height 153.5 cm Noemí Samreen PA-C Work Phone: [facility] 05-09-2023 14:21-0500 Body temperature 97.39 [degF] Noemí Samreen PA-C Work Phone: [facility] 05-09-2023 14:21-0500 Body weight 39.3 kg Noemí Samreen PA-C Work Phone: [facility] 05-09-2023 14:21-0500 Diastolic blood pressure 78 mm[Hg] Noemí Samreen PA-C Work Phone: [facility] 05-09-2023 14:21-0500 Heart rate 83 /min Noemí Samreen PA-C Work Phone: [facility] 05-09-2023 14:21-0500 Respiratory rate 16 /min Noemí Samreen PA-C Work Phone: [facility] 05-09-2023 14:21-0500 SaO2% (BldA) [Mass fraction] 96 % Noemí Samreen PA-C Work Phone: [facility] 05-09-2023 14:21-0500 Systolic blood pressure 137 mm[Hg] Noemí Samreen PA-C Work Phone: [facility] 02-15-2023 13:28-0500 Body height 153.5 cm Stacy Adhikari MD Work Phone: [facility] 02-15-2023 13:28-0500 Body temperature 97.81 [degF] Stacy Adhikari MD Work Phone: [facility] 02-15-2023 13:28-0500 Body weight 37.47 kg Stacy Adhkiari MD Work Phone: [facility] 02-15-2023 13:28-0500 Diastolic blood pressure 70 mm[Hg] Stacy Adhikari MD Work Phone: [facility] 02-15-2023 13:28-0500 Heart rate 96 /min Stacy Adhikari MD Work Phone: [facility] 02-15-2023 13:28-0500 Respiratory rate 16 /min Stacy Adhikari MD Work Phone: [facility] 02-15-2023 13:28-0500 SaO2% (BldA) [Mass fraction] 100 % Stacy Adhikari MD Work Phone: [facility] 02-15-2023 13:28-0500 Systolic blood pressure 156 mm[Hg] Stacy Adhikari MD Work Phone: [facility] 01-25-2023 14:00-0500 Body height 153.5 cm Noemí Samreen PA-C Work Phone: [facility] 01-25-2023 14:00-0500 Body temperature 97.2 [degF] Noemí Samreen PA-C Work Phone: [facility] 01-25-2023 14:00-0500 Body weight 36.92 kg Noemí Samreen PA-C Work Phone: [facility] 01-25-2023 14:00-0500 Diastolic blood pressure 77 mm[Hg] Noemí Samreen PA-C Work Phone: [facility] 01-25-2023 14:00-0500 Heart rate 91 /min Noemí Samreen PA-C Work Phone: [facility] 01-25-2023 14:00-0500 Respiratory rate 16 /min Noemí Samreen PA-C Work Phone: [facility] 01-25-2023 14:00-0500 SaO2% (BldA) [Mass fraction] 100 % Noemí Samreen PA-C Work Phone: [facility] 01-25-2023 14:00-0500 Systolic blood pressure 157 mm[Hg] Noemí Samreen PA-C Work Phone: [facility] 01-12-2023 13:30-0400 Body height 154.94 cm Brianda Lewis Other [email or web address] Other 01-12-2023 13:30-0400 Body mass index (BMI) [Ratio] 14.93 kg/m2 Brianda Lewis Other [email or web address] Other 01-12-2023 13:30-0400 Body temperature 97.8 [degF] Brianda Lewis Other [email or web address] Other 01-12-2023 13:30-0400 Body weight 35.83 kg Brianda Lewis [email or web address] Other 01-12-2023 13:30-0400 Diastolic blood pressure 68 mm[Hg] Brianda Lewis Other [email or web address] Other 01-12-2023 13:30-0400 SaO2% (BldA) [Mass fraction] 98 % Brianda Lewis Other [email or web address] Other 01-12-2023 13:30-0400 Systolic blood pressure 110 mm[Hg] Brianda Lewis Other [email or web address] Other 01-04-2023 13:19-0400 Body height 153.5 cm Noemí Samreen PA-C Work Phone: [facility] 01-04-2023 13:19-0400 Body temperature 97.81 [degF] Noemí Samreen PA-C Work Phone: [facility] 01-04-2023 13:19-0400 Body weight 36.74 kg Noemí Samreen PA-C Work Phone: [facility] 01-04-2023 13:19-0400 Diastolic blood pressure 77 mm[Hg] Noemí Samreen PA-C Work Phone: [facility] 01-04-2023 13:19-0400 Heart rate 93 /min Noemí Samreen PA-C Work Phone: [facility] 01-04-2023 13:19-0400 Respiratory rate 16 /min Noemí Samreen PA-C Work Phone: [facility] 01-04-2023 13:19-0400 SaO2% (BldA) [Mass fraction] 97 % Noemí Samreen PA-C Work Phone: [facility] 01-04-2023 13:19-0400 Systolic blood pressure 153 mm[Hg] Noemí Samreen PA-C Work Phone: [facility] 11-23-2022 12:48-0400 Body height 152.4 cm [facility] [employer] Work Phone: [facility] 11-23-2022 12:48-0400 Body temperature 96.91 [degF] [facility] [employer]ERCIAL [employer]OR[employer] Work Phone: [facility] 11-23-2022 12:48-0400 Body weight 36.15 kg [facility] COMMERCIAL COLLECTOR[employer] Work Phone: [facility] 11-23-2022 12:48-0400 Diastolic blood pressure 84 mm[Hg] [facility] [employer]ERCIAL COLLECTOR[employer] Work Phone: [facility] 11-23-2022 12:48-0400 Heart rate 112 /min [facility] COMMERCIAL COLLECTOR[employer] Work Phone: [facility] 11-23-2022 12:48-0400 Respiratory rate 18 /min [facility] COMMERCIAL COLLECTOR[employer] Work Phone: [facility] 11-23-2022 12:48-0400 SaO2% (BldA) [Mass fraction] 99 % [facility] COMMERCIAL COL[employer]OR[employer] Work Phone: [facility] 11-23-2022 12:48-0400 Systolic blood pressure 152 mm[Hg] [facility] [employer]ERCIAL COLLECTOR[employer] Work Phone: [facility] 11-11-2022 12:58-0400 Body height 152.4 cm Mina Walden MD Work Phone: [facility] 11-11-2022 12:58-0400 Body temperature 98.91 [degF] Mina Walden MD Work Phone: [facility] 11-11-2022 12:58-0400 Body weight 36.74 kg Mina Walden MD Work Phone: [facility] 11-11-2022 12:58-0400 Diastolic blood pressure 86 mm[Hg] Mina Walden MD Work Phone: [facility] 11-11-2022 12:58-0400 Heart rate 97 /min Mina Walden MD Work Phone: [facility] 11-11-2022 12:58-0400 SaO2% (BldA) [Mass fraction] 96 % Mina Walden MD Work Phone: [facility] 11-11-2022 12:58-0400 Systolic blood pressure 144 mm[Hg] Mina Walden MD Work Phone: [facility] 11-01-2022 10:02-0400 Blood Pressure Location JESSIKA ESQUIVEL [facility] 11-01-2022 10:02-0400 Diastolic blood pressure 78 mm[Hg] JESSIKA RITTERRY [facility] 11-01-2022 10:02-0400 Heart rate 84 /min JESSIKA ESQUIVEL [facility] 11-01-2022 10:02-0400 Systolic blood pressure 138 mm[Hg] JESSIKA ESQUIVEL [facility] 09-21-2022 14:39-0400 Body height 152.4 cm Mina Walden MD Work Phone: [facility] 09-21-2022 14:39-0400 Body temperature 97.59 [degF] Mina Walden MD Work Phone: [facility] 09-21-2022 14:39-0400 Body weight 37.29 kg Mina Walden MD Work Phone: [facility] 09-21-2022 14:39-0400 Diastolic blood pressure 69 mm[Hg] Mina Walden MD Work Phone: [facility] 09-21-2022 14:39-0400 Heart rate 66 /min Mina Walden MD Work Phone: [facility] 09-21-2022 14:39-0400 Respiratory rate 22 /min Mina Walden MD Work Phone: [facility] 09-21-2022 14:39-0400 SaO2% (BldA) [Mass fraction] 99 % Mina Walden MD Work Phone: [facility] 09-21-2022 14:39-0400 Systolic blood pressure 153 mm[Hg] Mina Walden MD Work Phone: [facility] 08-17-2022 11:36-0400 Body height 154.9 cm Stacy Adhikari MD Work Phone: [facility] 08-17-2022 11:36-0400 Body temperature 98.29 [degF] Stacy Adhikari MD Work Phone: [facility] 08-17-2022 11:36-0400 Body weight 38.83 kg Stacy Adhikari MD Work Phone: [facility] 08-17-2022 11:36-0400 Diastolic blood pressure 74 mm[Hg] Stacy Adhikari MD Work Phone: [facility] 08-17-2022 11:36-0400 Heart rate 89 /min Stacy Adhikari MD Work Phone: [facility] 08-17-2022 11:36-0400 Respiratory rate 16 /min Stacy Adhikari MD Work Phone: [facility] 08-17-2022 11:36-0400 SaO2% (BldA) [Mass fraction] 99 % Stacy Adhikari MD Work Phone: [facility] 08-17-2022 11:36-0400 Systolic blood pressure 165 mm[Hg] Stacy Adhikari MD Work Phone: [facility] 08-10-2022 11:15-0400 Diastolic blood pressure 72 mm[Hg] Ana Smith MD Work Phone: [facility] 08-10-2022 11:15-0400 Heart rate 88 /min Ana Smith MD Work Phone: [facility] 08-10-2022 11:15-0400 Respiratory rate 20 /min Ana Smith MD Work Phone: [facility] 08-10-2022 11:15-0400 SaO2% (BldA) [Mass fraction] 95 % Ana Smith MD Work Phone: [facility] 08-10-2022 11:15-0400 Systolic blood pressure 163 mm[Hg] Ana Smith MD Work Phone: [facility] 08-10-2022 10:54-0400 Body temperature 97 [degF] Ana Smith MD Work Phone: [facility] 07-20-2022 13:28-0400 Body height 154.9 cm Stacy Adhikari MD Work Phone: [facility] 07-20-2022 13:28-0400 Body temperature 97.59 [degF] Stacy Adhikari MD Work Phone: [facility] 07-20-2022 13:28-0400 Body weight 39.01 kg Stacy Adhikari MD Work Phone: [facility] 07-20-2022 13:28-0400 Diastolic blood pressure 70 mm[Hg] Stacy Adhikari MD Work Phone: [facility] 07-20-2022 13:28-0400 Heart rate 81 /min Stacy Adhikari MD Work Phone: [facility] 07-20-2022 13:28-0400 Respiratory rate 16 /min Stacy Adhikari MD Work Phone: [facility] 07-20-2022 13:28-0400 SaO2% (BldA) [Mass fraction] 97 % Stacy Adhikari MD Work Phone: [facility] 07-20-2022 13:28-0400 Systolic blood pressure 151 mm[Hg] Stacy Adhikari MD Work Phone: [facility] 05-04-2022 11:02-0500 Blood Pressure Location JESSIKASAMANTHA ESQUIVEL [facility] 05-04-2022 11:02-0500 Diastolic blood pressure 82 mm[Hg] JESSIKA MCKENZIE [facility] 05-04-2022 11:02-0500 Heart rate 79 /min JESSIKA MCKENZIE [facility] 05-04-2022 11:02-0500 Respiratory rate 16 /min JESSIKA MCKENZIE [facility] 05-04-2022 11:02-0500 Systolic blood pressure 132 mm[Hg] JESSIKA MCKENZIE [facility] 04-07-2022 09:52-0500 Body height 154.9 cm Stacy Adhikari MD Work Phone: [facility] 04-07-2022 09:52-0500 Body temperature 97.11 [degF] Stacy Adhikari MD Work Phone: [facility] 04-07-2022 09:52-0500 Body weight 38.47 kg Stacy Adhikari MD Work Phone: [facility] 04-07-2022 09:52-0500 Diastolic blood pressure 77 mm[Hg] Stacy Adhikari MD Work Phone: [facility] 04-07-2022 09:52-0500 Heart rate 84 /min Stacy Adhikari MD Work Phone: [facility] 04-07-2022 09:52-0500 Respiratory rate 16 /min Stacy Adhikari MD Work Phone: [facility] 04-07-2022 09:52-0500 SaO2% (BldA) [Mass fraction] 100 % Stacy Adhikari MD Work Phone: [facility] 04-07-2022 09:52-0500 Systolic blood pressure 169 mm[Hg] Stacy Adhikari MD Work Phone: [facility] 09-29-2021 13:19-0400 Body height 154.9 cm Stacy Adhikari MD Work Phone: [facility] 09-29-2021 13:19-0400 Body temperature 97.3 [degF] Stacy Adhikari MD Work Phone: [facility] 09-29-2021 13:19-0400 Body weight 36.47 kg Stacy Adhikari MD Work Phone: [facility] 09-29-2021 13:19-0400 Diastolic blood pressure 69 mm[Hg] Stacy Adhikari MD Work Phone: [facility] 09-29-2021 13:19-0400 Heart rate 95 /min Stacy Adhikari MD Work Phone: [facility] 09-29-2021 13:19-0400 Respiratory rate 16 /min Stacy Adhikari MD Work Phone: [facility] 09-29-2021 13:19-0400 SaO2% (BldA) [Mass fraction] 100 % Stacy Adhikari MD Work Phone: [facility] 09-29-2021 13:19-0400 Systolic blood pressure 154 mm[Hg] Stacy Adhikari MD Work Phone: [facility] 09-23-2021 11:30-0400 Body height 154.94 cm Chris Blackburn Other [email or web address] Other 09-23-2021 11:30-0400 Body mass index (BMI) [Ratio] 15.3 kg/m2 Chris Blackburn Other [email or web address] Other 09-23-2021 11:30-0400 Body weight 36.74 kg Chris Blackburn Other [email or web address] Other 09-23-2021 11:30-0400 Diastolic blood pressure 80 mm[Hg] Chris Blackburn Other [email or web address] Other 09-23-2021 11:30-0400 Systolic blood pressure 138 mm[Hg] Chris Blackburn Other [email or web address] Other 09-14-2021 14:20-0400 Body height 154.9 cm Noemí Samreen PA-C Work Phone: [facility] 09-14-2021 14:20-0400 Body temperature 97.11 [degF] Noemí Samreen PA-C Work Phone: [facility] 09-14-2021 14:20-0400 Body weight 35.83 kg Noemí Samreen PA-C Work Phone: [facility] 09-14-2021 14:20-0400 Diastolic blood pressure 78 mm[Hg] Noemí Samreen PA-C Work Phone: [facility] 09-14-2021 14:20-0400 Heart rate 89 /min Noemí Samreen PA-C Work Phone: [facility] 09-14-2021 14:20-0400 Respiratory rate 16 /min Noemí Samreen PA-C Work Phone: [facility] 09-14-2021 14:20-0400 SaO2% (BldA) [Mass fraction] 98 % Noemí Samreen PA-C Work Phone: [facility] 09-14-2021 14:20-0400 Systolic blood pressure 143 mm[Hg] Noemí Samreen PA-C Work Phone: [facility] 05-17-2021 14:30-0500 Body height 154.94 cm Chris Blackburn Other [email or web address] Other 05-17-2021 14:30-0500 Body mass index (BMI) [Ratio] 16.06 kg/m2 Chris Harrisonkes Other [email or web address] Other 05-17-2021 14:30-0500 Body weight 38.56 kg Chris Harrisonkes Other [email or web address] Other 05-17-2021 14:30-0500 Diastolic blood pressure 96 mm[Hg] Chris Harrisonkes Other [email or web address] Other 05-17-2021 14:30-0500 Systolic blood pressure 156 mm[Hg] Chris Harrisonkes Other [email or web address] Other 04-13-2021 15:15-0500 Body height 154.94 cm Chris Harrisonkes Other [email or web address] Other 04-13-2021 15:15-0500 Body mass index (BMI) [Ratio] 18.89 kg/m2 Chris Harrisonkes Other [email or web address] Other 04-13-2021 15:15-0500 Body weight 45.36 kg Chris Harrisonkes Other [email or web address] Other 04-13-2021 15:15-0500 Diastolic blood pressure 64 mm[Hg] Chris Harrisonkes Other [email or web address] Other 04-13-2021 15:15-0500 Respiratory rate 16 /min Chris Harrisonkes Other [email or web address] Other 04-13-2021 15:15-0500 Systolic blood pressure 102 mm[Hg] Chris Blackburn Other [email or web address] Other Encounters Encounter Date Encounter Type Care Provider Facility Start: 06-10-2024 ambulatory JESSIKA Porter ty:SHY Patel Start: 06-05-2024 End: 06-05-2024 ambulatory Noemí Jolley PA-C Work Phone: Hematology/Oncology Comment on above: Ulcer meds Refill Request Start: 05-02-2024 End: 05-03-2024 Telephone encounter [facility] Comment on above: Results; Care 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) Start: 05-02-2024 End: 05-02-2024 ambulatory Chair Crissy Hunter Work Phone: Hematology/Oncology Comment on above: Malignant neoplasm o f unspecified part of unspecified bronchus or lung (HCC) (Primary Dx); Malignant neoplasm of upper lobe of left lung (HCC) Start: 04-30-2024 End: 04-30-2024 ambulatory ARYA RDZ Facility:[facility] Start: 04-30-2024 End: 04-30-2024 Subsequent hospital visit by physician Arrival Time Radiology Work Phone: Radiology Pet CT Comment on above: Malignant neoplasm o f frontal lobe of brain (HCC) [C71.1] Start: 04-28-2024 End: 04-29-2024 Refill Wendy Mayer APRN.CNP Work Phone: Hematology/Oncology Comment on above: Refill Request Start: 04-01-2024 End: 04-01-2024 Subsequent hospital visit by physician Mri 3 Radio Main Q (I-Stat/1.5t/3t) Work Phone: MRI Q Start: 03-29-2024 End: 03-29-2024 ambulatory Noemí Jolley PA-C Work Phone: Hematology/Oncology Comment on above: Uti Start: 03-25-2024 End: 03-25-2024 ambulatory Arya Rdz MD Work Phone: Hematology/Oncology Comment on above: Medication Start: 03-21-2024 End: 03-21-2024 Office outpatient visit 25 minutes Arya Rdz MD Work Phone: Hematology/Oncology Comment on above: Malignant neoplasm o f frontal lobe of brain (HCC) (Primary Dx); Malignant neoplasm of right lung, unspecified part of lung (HCC); 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); Malignant neoplasm of hilus of lung, unspecified laterality (HCC) Start: 03-21-2024 End: 03-21-2024 ambulatory Chair Lola Hunter Work Phone: Hematology/Oncology Comment on above: Malignant neoplasm o f unspecified part of unspecified bronchus or lung (HCC) (Primary Dx); Malignant neoplasm of upper lobe of left lung (HCC) Start: 03-14-2024 End: 03-14-2024 Bamboo flowsheet Fidelia Garcia TRAVEL TRAILER [employer]SEM[employer]ER Work Phone: [facility] Start: 03-14-2024 End: 03-14-2024 Bamboo flowsheet Fidelia Garcia TRAVEL TRAILER [employer]SEM[employer]ER Work Phone: [facility] Start: 03-14-2024 End: 03-14-2024 Office outpatient visit 25 minutes Fidelia Garcia NP Work Phone: [facility] Comment on above: Ischemic stroke (CMS /HCC) (Primary Dx); Malignant neoplasm of lung, unspecified laterality, unspecified part of lung (CMS/HCC); Tobacco use; Episodic migraine (CMS/HCC); 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) Start: 03-14-2024 End: 03-14-2024 ambulatory FIDELIA GARCIA Not Available Start: 02-28-2024 End: 02-28-2024 Office outpatient visit 15 minutes Noemí Jolley PA-C Work Phone: Hematology/Oncology Comment on above: Malignant neoplasm o f frontal lobe of brain (HCC) (Primary Dx); Malaise and fatigue Start: 02-28-2024 End: 02-28-2024 ambulatory NOEMÍ JOLLEY Facility:[facility] Start: 02-19-2024 End: 03-01-2024 Radiation Oncology Note Estevan Mauro MD Work Phone: [facility] Comment on above: Treatment Planning Completion Note Start: 02-19-2024 End: 03-01-2024 Patient encounter procedure Placement Neus Ca Ll Work Phone: Neurosurgery Comment on above: Secondary malignant neoplasm of brain (HCC) (Primary Dx) Start: 02-19-2024 End: 02-19-2024 Subsequent hospital visit by physician Mri Main Ca (1.5t) Work Phone: Radiology Comment on above: 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] Start: 02-19-2024 End: 02-19-2024 ambulatory ALFREDO MORE Facility:[facility] Start: 02-16-2024 End: 02-16-2024 Telephone encounter Alfredo More MD Work Phone: Neurosurgery Comment on above: Preparations For Pro cedures (GKRS) Start: 02-15-2024 End: 02-15-2024 Patient encounter procedure Alfredo More MD Work Phone: [facility] Comment on above: 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) Start: 02-15-2024 End: 02-15-2024 ambulatory Jessika Carter MD Work Phone: Radiation Oncology Comment on above: Primary malignant ne oplasm 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 (HCC) (Primary Dx) Start: 02-15-2024 End: 02-15-2024 Telemedicine consultation with patient Jessika Carter MD Work Phone: Radiation Oncology Start: 02-07-2024 End: 02-07-2024 Office outpatient visit 40 minutes Noemí Jolley PA-C Work Phone: Hematology/Oncology Comment on above: Malignant neoplasm o f frontal lobe of brain (HCC) (Primary Dx); Malignant neoplasm of hilus of lung, unspecified laterality (HCC); Malaise and fatigue Start: 02-07-2024 End: 02-07-2024 ambulatory Chair Lola Hunter Work Phone: Hematology/Oncology Comment on above: Malignant neoplasm o f unspecified part of unspecified bronchus or lung (HCC) (Primary Dx); Malignant neoplasm of upper lobe of left lung (HCC) Start: 02-06-2024 End: 02-06-2024 Telephone encounter [facility] Comment on above: Triage (Internal Ref erral ) Start: 02-02-2024 End: 02-02-2024 Refill Stacy Adhikari MD Work Phone: Hematology/Oncology Comment on above: Med Change Request Start: 02-02-2024 End: 02-06-2024 Telephone encounter Arya Rdz MD Work Phone: [facility] Comment on above: Appointment Start: 02-01-2024 End: 02-27-2024 Refill Arya Rdz MD Work Phone: Hematology/Oncology Comment on above: Refill Request Lab Orders Start: 01-31-2024 End: 02-01-2024 Telephone encounter Noemí Jolley PA-C Work Phone: Hematology/Oncology Comment on above: Results; Care [facility] (MRI results) Episodic migraine (C MS/HCC) (Primary Dx) Start: 01-26-2024 End: 01-26-2024 Refill Arya Rdz MD Work Phone: Hematology/Oncology Comment on above: Refill Request Start: 01-23-2024 End: 01-25-2024 ambulatory Arya Rdz MD Work Phone: Hematology/Oncology Comment on above: Mri Start: 01-12-2024 End: 01-12-2024 ambulatory ARYA ABBRITTNIBORIS Facility:[facility] Start: 01-12-2024 End: 01-12-2024 Office outpatient visit 25 minutes Arya Rdz MD Work Phone: Hematology/Oncology Comment on above: Malignant neoplasm o f unspecified part of unspecified bronchus or lung (HCC) (Primary Dx); Malignant neoplasm of right lung, unspecified part of lung (HCC); 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); Syncope and collapse; Malaise and fatigue; Nonintractable headache, unspecified chronicity pattern, unspecified headache type Start: 01-12-2024 End: 01-12-2024 [facility] Start: 01-12-2024 End: 01-12-2024 Subsequent hospital visit by physician Arrival Time Radiology Work Phone: Radiology Pet CT Comment on above: Malignant neoplasm o f unspecified part of unspecified bronchus or lung (HCC) [C34.90] Start: 01-10-2024 End: 01-10-2024 Refill Stacy Adhikari MD Work Phone: Hematology/Oncology Comment on above: Refill Request Start: 12-27-2023 End: 01-19-2024 Telephone encounter Arya Rdz MD Work Phone: Cancer [facility] Comment on above: Results Start: 12-27-2023 End: 12-27-2023 Office outpatient visit 40 minutes Arya Rdz MD Work Phone: Hematology/Oncology Comment on above: Malignant neoplasm o f unspecified part of unspecified bronchus or lung (HCC) (Primary Dx); Malignant neoplasm of hilus of lung, unspecified laterality (HCC); Malignant neoplasm of right lung, unspecified part of lung (HCC); 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); Syncope and collapse Start: 12-27-2023 End: 12-27-2023 ambulatory Chair Lola Hunter Work Phone: Hematology/Oncology Comment on above: Malignant neoplasm o f hilus of lung, unspecified laterality (HCC) (Primary Dx); Malignant neoplasm of upper lobe of left lung (HCC) Start: 12-22-2023 End: 12-25-2023 Telephone encounter Arya Rdz MD Work Phone: Hematology/Oncology Comment on above: Lab Orders Start: 12-18-2023 End: 12-19-2023 Refill Noemí Byrnes Samreen PA-C Work Phone: Hematology/Oncology Comment on above: Refill Request Start: 12-15-2023 End: 12-18-2023 Refill Noemí Jolley PA-C Work Phone: Hematology/Oncology Comment on above: Refill Request Start: 12-15-2023 End: 12-18-2023 Refill Arya Rdz MD Work Phone: Hematology/Oncology Comment on above: Refill Request Start: 12-06-2023 End: 12-06-2023 ambulatory NOEMÍ JOLLEY Facility:[facility] Start: 11-30-2023 End: 11-30-2023 ambulatory Noemí Jolley PA-C Work Phone: Hematology/Oncology Comment on above: Thrush Start: 11-15-2023 End: 11-15-2023 Office outpatient visit 25 minutes Arya Rdz MD Work Phone: Hematology/Oncology Comment on above: Malaise and fatigue (Primary Dx); Malignant neoplasm of hilus of lung, unspecified laterality (HCC); Anemia, unspecified type Start: 11-15-2023 End: 11-15-2023 ambulatory Chair 16 Dale Work Phone: Hematology/Oncology Comment on above: Malignant neoplasm o f hilus of lung, unspecified laterality (HCC) (Primary Dx); Malignant neoplasm of upper lobe of left lung (HCC) Start: 11-07-2023 End: 11-07-2023 Telephone encounter Arya Rdz MD Work Phone: Hematology/Oncology Comment on above: Lab Orders Start: 11-07-2023 End: 11-07-2023 ambulatory JESSIKA Lupe MCKENZIE Facility:[facility] Start: 11-07-2023 End: 11-07-2023 Patient encounter procedure JESSIKA ESQUIVEL [facility] Start: 10-03-2023 Refill Stacy Adhikari MD Work Phone: Hematology/Oncology Comment on above: Refill Request Start: 10-03-2023 Telephone encounter Stacy villagomez MD Work Phone: Cancer [facility] Comment on above: Referral Information (Podiatry) Start: 10-03-2023 End: 10-03-2023 Patient encounter procedure Stacy Adhikari MD Work Phone: Hematology/Oncology Start: 10-03-2023 End: 10-03-2023 ambulatory Stacy Adhikari MD Work Phone: Hematology/Oncology Comment on above: Malignant neoplasm o f hilus of lung, unspecified laterality (HCC) (Primary Dx); Onychomycosis Malignant neoplasm o f hilus of lung, unspecified laterality (HCC) (Primary Dx); Malignant neoplasm of upper lobe of left lung (HCC) Start: 10-02-2023 Telephone encounter Mila Briscoe RN Work Phone: Hematology/Oncology Comment on above: Care Coordination (S table CT results) Start: 09-28-2023 End: 09-28-2023 ambulatory STACY ADHIKARI Facility:[facility] Start: 09-28-2023 End: 09-28-2023 Subsequent hospital visit by physician Arrival Time Radiology Work Phone: Radiology Pet CT Comment on above: Malignant neoplasm o f hilus of lung, unspecified laterality (HCC) [C34.00] Start: 09-03-2023 Refill Noemí Jolley PA-C Work Phone: Hematology/Oncology Comment on above: Refill Request Start: 08-29-2023 End: 08-29-2023 ambulatory NOEMÍ JOLLEY Facility:[facility] Start: 08-29-2023 Telephone encounter Mila Briscoe RN Work Phone: Hematology/Oncology Comment on above: Care Coordination (L ab orders) Start: 08-22-2023 Telephone encounter Stacy villagomez MD Work Phone: Hematology/Oncology Comment on above: Patient Update Start: 08-22-2023 End: 08-22-2023 Patient encounter procedure Stacy Adhikari MD Work Phone: Hematology/Oncology Start: 08-22-2023 End: 08-22-2023 ambulatory Stacy Adhikari MD Work Phone: Hematology/Oncology Comment on above: Malignant neoplasm o f hilus of lung, unspecified laterality (HCC) (Primary Dx); Anemia, unspecified type; Malignant neoplasm of right lung, unspecified part of lung (HCC) Malignant neoplasm o f hilus of lung, unspecified laterality (HCC) (Primary Dx); Malignant neoplasm of upper lobe of left lung (HCC) Start: 07-11-2023 End: 07-11-2023 Office outpatient visit 15 minutes Noemí Jolley PA-C Work Phone: Hematology/Oncology Comment on above: Malignant neoplasm o f hilus of lung, unspecified laterality (HCC) (Primary Dx); Anemia, unspecified type; Malaise and fatigue Start: 07-11-2023 End: 07-12-2023 ambulatory Chair Crissy Hunter Work Phone: Hematology/Oncology Comment on above: Malignant neoplasm o f upper lobe of left lung (HCC) (Primary Dx); Malignant neoplasm of hilus of lung, unspecified laterality (HCC) Start: 06-23-2023 ambulatory Stacy Adhikari MD Work Phone: Hematology/Oncology Comment on above: Uti Start: 06-20-2023 End: 06-20-2023 Patient encounter procedure Stacy Adhikari MD Work Phone: [facility] Start: 06-20-2023 End: 06-20-2023 ambulatory Stacy Adhikari MD Work Phone: Hematology/Oncology Comment on above: Malignant neoplasm o f hilus of lung, unspecified laterality (HCC) (Primary Dx); Anemia, unspecified type Malignant neoplasm o f upper lobe of left lung (HCC) (Primary Dx); Malignant neoplasm of hilus of lung, unspecified laterality (HCC) Start: 06-16-2023 Telephone encounter Mila Briscoe RN Work Phone: Hematology/Oncology Comment on above: Care Coordination (P ET results) Start: 06-15-2023 Telephone encounter Mila Briscoe RN Work Phone: Hematology/Oncology Comment on above: Care Coordination (P ET results) Start: 06-14-2023 End: 06-14-2023 ambulatory ONEMÍ JOLLEY Facility:[facility] Start: 06-14-2023 End: 06-14-2023 Subsequent hospital visit by physician Arrival Time Radiology Work Phone: Radiology Pet CT Comment on above: Malignant neoplasm o f hilus of lung, unspecified laterality (HCC) [C34.00] Start: 05-30-2023 End: 05-30-2023 Patient encounter procedure Noemí DINH-C Work Phone: [facility] Start: 05-30-2023 End: 05-31-2023 ambulatory Noemí Jolley PA-C Work Phone: Hematology/Oncology Comment on above: Malignant neoplasm o f hilus of lung, unspecified laterality (HCC) (Primary Dx); Malaise and fatigue; Malignant neoplasm of unspecified part of unspecified bronchus or lung (HCC) Malignant neoplasm o f upper lobe of left lung (HCC) (Primary Dx); Malignant neoplasm of hilus of lung, unspecified laterality (HCC) Start: 05-09-2023 End: 05-09-2023 Patient encounter procedure Noemí DINH-C Work Phone: [facility] Start: 05-09-2023 End: 05-10-2023 ambulatory Noemí Jolley PA-C Work Phone: Hematology/Oncology Comment on above: Malignant neoplasm o f hilus of lung, unspecified laterality (HCC) (Primary Dx); Malaise and fatigue Malignant neoplasm o f upper lobe of left lung (HCC) (Primary Dx); Malignant neoplasm of hilus of lung, unspecified laterality (HCC) Start: 05-05-2023 Telephone encounter Mila Briscoe RN Work Phone: Hematology/Oncology Comment on above: Care Coordination (M RI results) Start: 03-01-2023 End: 03-01-2023 Subsequent hospital visit by physician Arrival Time Radiology Work Phone: Radiology Pet CT Comment on above: Malignant neoplasm o f upper lobe of left lung (HCC) [C34.12] Start: 02-15-2023 End: 02-15-2023 ambulatory Stacy Adhikari MD Work Phone: Hematology/Oncology Comment on above: Malignant neoplasm o f upper lobe of left lung (HCC) (Primary Dx) Malignant neoplasm o f upper lobe of left lung (HCC) (Primary Dx); Malignant neoplasm of hilus of lung, unspecified laterality (HCC) Start: 02-15-2023 End: 02-15-2023 Patient encounter procedure Stacy Adhikari MD Work Phone: [facility] Start: 01-25-2023 End: 01-25-2023 ambulatory Noemí Jolley PA-C Work Phone: Hematology/Oncology Comment on above: Anemia, unspecified type (Primary Dx); Malignant neoplasm of upper lobe of left lung (HCC); Malaise and fatigue; Dysuria Dysuria (Primary Dx) ; Malignant neoplasm of upper lobe of left lung (HCC); Malignant neoplasm of hilus of lung, unspecified laterality (HCC); Anemia, unspecified type Start: 01-25-2023 End: 01-25-2023 Patient encounter procedure Noemí Jolley PA-C Work Phone: [facility] Start: 01-12-2023 End: 01-12-2023 ambulatory Brianda Lewis Other [email or web address] Other Start: 01-12-2023 [facility] visit new patient Brianda Ruttin o [facility] Start: 01-09-2023 Telephone encounter Mila Briscoe RN Work Phone: Hematology/Oncology Comment on above: Care Coordination (C 1D1 treatment follow up call) Start: 01-04-2023 End: 01-04-2023 ambulatory Noemí Jolley PA-C Work Phone: Hematology/Oncology Comment on above: Malignant neoplasm o f upper lobe of left lung (HCC) (Primary Dx); Malaise and fatigue Malignant neoplasm o f upper lobe of left lung (HCC) (Primary Dx); Malignant neoplasm of hilus of lung, unspecified laterality (HCC) Start: 01-04-2023 End: 01-04-2023 Patient encounter procedure Noemí Jolley PA-C Work Phone: [facility] Start: 01-03-2023 Telephone encounter Noemí garcia PA-C Work Phone: Hematology/Oncology Comment on above: Lab Orders Start: 01-02-2023 Telephone encounter Mila Briscoe RN Work Phone: Hematology/Oncology Comment on above: Care Coordination (D iscoloration of left ring finger) Start: 01-02-2023 End: 01-02-2023 Subsequent hospital visit by physician Arrival Time Radiology Work Phone: Radiology Pet CT Comment on above: Neoplasm of lung [D4 9.1] Start: 01-02-2023 End: 01-02-2023 Nursing evaluation of patient and report Mila Briscoe RN Work Phone: Hematology/Oncology Comment on above: Malignant neoplasm o f upper lobe of left lung (HCC) (Primary Dx) Start: 12-09-2022 ambulatory Stacy Adhikari MD Work Phone: Hematology/Oncology Comment on above: Pathology Start: 11-23-2022 End: 11-23-2022 ambulatory [facility] Facility:[facility] Start: 11-23-2022 End: 11-23-2022 Patient encounter procedure [facility] [employer]ERCIAL [employer]OR[employer] Work Phone: Thoracic Surgery Comment on above: Malignant neoplasm o f unspecified part of unspecified bronchus or lung (HCC) (Primary Dx); Lung nodule Start: 11-23-2022 End: 11-23-2022 Subsequent hospital visit by physician Xr Issa [facility] Comment on above: Malignant neoplasm o f lower lobe of right lung (HCC) [C34.31] Start: 11-11-2022 End: 11-11-2022 Admission to same day surgery center Anesthesia Clearance Work Phone: [facility] Work Phone: Start: 11-11-2022 End: 11-11-2022 Patient encounter procedure Anesthesia Clearance Work Phone: Cardiothoracic Comment on above: Encounter for preope rative anesthesiology assessment for thoracic surgery (Primary Dx) Lung nodule (Primary Dx) Start: 11-11-2022 End: 11-11-2022 Patient encounter status Card In[facility] Start: 11-11-2022 End: 11-11-2022 Subsequent hospital visit by physician Card Injection Molecular Imaging Comment on above: Malignant neoplasm o f unspecified part of unspecified bronchus or lung (HCC) [C34.90] Start: 11-01-2022 End: 11-01-2022 Patient encounter procedure JESSIKA ESQUIVEL [facility] Start: 10-31-2022 End: 10-31-2022 Patient encounter status Arrival Radiology Work Phone: [facility] Start: 10-31-2022 End: 10-31-2022 Subsequent hospital visit by physician Arrival Time Radiology Work Phone: Radiology Pet CT Comment on above: Malignant neoplasm o f unspecified part of unspecified bronchus or lung (HCC) [C34.90] Start: 10-10-2022 End: 10-10-2022 Lab Drop off JESSIKA ESQUIVEL [facility] Start: 10-10-2022 End: 10-10-2022 Patient encounter procedure JESSIKA E MCKENZIE [facility] Start: 09-21-2022 End: 09-21-2022 ambulatory MINA WALDEN [facility] Comment on above: Spirometry Start: 09-21-2022 End: 09-21-2022 Patient encounter procedure [facility] Work Phone: [facility] Comment on above: Lung nodule [R91.1] (Primary Dx) Start: 09-19-2022 Telephone encounter Becky keller RN Work Phone: Hematology/Oncology Comment on above: Care Coordination (M RI Results) Start: 09-17-2022 End: 09-17-2022 Subsequent hospital visit by physician Faiza [facility] (I-Stat/1.5t) Work Phone: Radiology Comment on above: Malignant neoplasm o f lower lobe of left lung (HCC) [C34.32] Start: 08-17-2022 End: 08-17-2022 ambulatory Stacy Adhikari MD Work Phone: Hematology/Oncology Comment on above: Malignant neoplasm o f hilus of lung, unspecified laterality (HCC) (Primary Dx) Start: 08-17-2022 End: 08-17-2022 Patient encounter procedure Stacy Adhikari MD Work Phone: [facility] Start: 08-10-2022 End: 08-10-2022 Subsequent hospital visit by physician Ana Smith MD Work Phone: Admitting Comment on above: Bronchiolar disease [J98.09] Start: 08-05-2022 End: 08-05-2022 Patient encounter status Arrival Radiology Work Phone: [facility] [facility] Start: 08-05-2022 End: 08-05-2022 Subsequent hospital visit by physician Arrival Time Radiology Work Phone: Radiology Pet CT Comment on above: Small cell carcinoma of lung, 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] Start: 07-20-2022 End: 07-20-2022 ambulatory Stacy Adhikari MD Work Phone: Hematology/Oncology Comment on above: Malignant neoplasm o f hilus of lung, unspecified laterality (HCC); Anemia, unspecified type Start: 07-20-2022 End: 07-20-2022 Patient encounter procedure Stacy Adhikari MD Work Phone: [facility] Start: 07-15-2022 End: 07-15-2022 Subsequent hospital visit by physician Arrival Time Radiology Work Phone: Radiology Pet CT Comment on above: Neoplasm of lung [D4 9.1] Start: 07-11-2022 Refill Noemí Jolley PA-C Work Phone: Hematology/Oncology Comment on above: Refill Request Start: 07-07-2022 End: 07-08-2022 ambulatory STACY ADHIKARI Facility: Start: 07-07-2022 Telephone encounter Teresa Park Admitting Comment on above: Appointment; Care Co ordinator - Other Start: 07-06-2022 Orders Only Annalisa reece PA-C Work Phone: Pulmonary Medicine Comment on above: Preoperative examina tion (Primary Dx) Start: 07-06-2022 Preprocedural examination done Annalisa Whiteside PA-C Work Phone: Pulmonary Medicine Start: 07-05-2022 ambulatory Dre andrade MD Work Phone: Pulmonary Medicine Comment on above: Bronchoscopy Schedul ing (Initial Bronch Request ) Start: 07-05-2022 Patient encounter status Dre Cantor MD Work Phone: Pulmonary Medicine Start: 07-05-2022 Telephone encounter Mila Briscoe RN Work Phone: Hematology/Oncology Comment on above: Care Coordination (C linical update) Start: 06-23-2022 End: 06-23-2022 Subsequent hospital visit by physician Arrival Time Radiology Work Phone: Radiology Pet CT Comment on above: Malignant neoplasm o f unspecified part of unspecified bronchus or lung (HCC) [C34.90] Start: 06-10-2022 Refill Noemí Jolley PA-C Work Phone: Hematology/Oncology Comment on above: Refill Request Start: 05-13-2022 End: 05-14-[address] DOCTOR TAYLOR Facility:[facility]1 Start: 05-04-2022 End: 05-04-2022 Patient encounter procedure JESSIKA ESQUIVEL [facility] Start: 04-18-2022 End: 04-18-2022 ambulatory Gilson Vergara Other [email or web address] Other Start: 04-18-2022 Telephone encounter Gilson Zimmerman ck [facility] Start: 04-07-2022 End: 04-07-2022 ambulatory Stacy Adhikari MD Work Phone: Hematology/Oncology Comment on above: Malignant neoplasm o f unspecified part of unspecified bronchus or lung (HCC) (Primary Dx); Malignant neoplasm of hilus of lung, unspecified laterality (HCC); Anemia, unspecified type Start: 04-07-2022 End: 04-07-2022 Patient encounter procedure Stacy Adhikari MD Work Phone: [facility] Start: 03-30-2022 End: 03-30-2022 Subsequent hospital visit by physician Arrival Time Radiology Work Phone: Radiology Pet CT Comment on above: Malignant neoplasm o f unspecified part of unspecified bronchus or lung (HCC) [C34.90] Start: 03-24-2022 Telephone encounter Stacy villagomez MD Work Phone: [facility] Comment on above: Referral Information ; Care Coordination (Urology referral) Start: 03-02-2022 End: 03-03-[address] NOEMÍ JOLLEY Facility:[facility] Start: 02-21-2022 ambulatory Stacy Adhikari MD Work Phone: Hematology/Oncology Comment on above: Thrush Start: 12-08-2021 End: 12-08-2021 ambulatory Gilson Wilkersonormack Other [email or web address] Other Start: 12-08-2021 Telephone encounter Gilson Handleyfabiano ck [facility] Start: 12-02-2021 Telephone encounter Angella Kerr Hematology/Oncology Comment on above: Patient Question Start: 11-30-2021 End: 11-30-2021 ambulatory PHYSICIAN NO FAMILY Facility:[facility] Start: 11-30-2021 End: 11-30-2021 Patient encounter procedure DO Finn Mejias Work Phone: [facility] Start: 11-30-2021 ambulatory Facility:[id number] Start: 11-10-2021 End: 11-11-2021 ambulatory MERRY MEJIAS Facility:[facility] Start: 11-04-2021 End: 11-05-2021 ambulatory JESSIKA ESQUIVEL Facility:[facility] Start: 10-18-2021 ambulatory Noemí Jolley PA-C Work Phone: Hematology/Oncology Comment on above: Thrush Start: 10-04-2021 Telephone encounter Mila Briscoe RN Work Phone: Hematology/Oncology Comment on above: Care Coordination (l ab results) Start: 10-01-2021 End: 10-01-2021 ambulatory Chris Blackburn Other [email or web address] Other Start: 10-01-2021 Telephone encounter Chris Blackburn [facility] Start: 09-30-2021 ambulatory Stacy Adhikari MD Work Phone: Hematology/Oncology Comment on above: Covid test Start: 09-30-2021 E-mail encounter fro m caregiver Stacy Adhikari MD Work Phone: [facility] Start: 09-29-2021 Telephone encounter Stacy villagomez MD Work Phone: [facility] Comment on above: Referral Information (Neurology) Start: 09-29-2021 End: 09-29-2021 ambulatory Stacy Adhikari MD Work Phone: Hematology/Oncology Comment on above: Cerebrovascular acci dent (CVA) due to occlusion of small artery (HCC) (Primary Dx); Malignant neoplasm of unspecified part of unspecified bronchus or lung (HCC) Start: 09-29-2021 End: 09-29-2021 Patient encounter procedure Stacy Adhikari MD Work Phone: [facility] Start: 09-23-2021 End: 09-23-2021 ambulatory Chris Blackburn Other [email or web address] Other Start: 09-23-2021 Office outpatient vi sit 25 minutes Chris Blackburn [facility] Start: 09-21-2021 End: 09-22-[address] NOEMÍ JOLLEY Facility: Start: 09-14-2021 End: 09-14-2021 ambulatory Noemí Jolley PA-C Work Phone: Hematology/Oncology Comment on above: Abnormal weight loss (Primary Dx); Malignant neoplasm of unspecified part of unspecified bronchus or lung (HCC); Frequent UTI Start: 09-14-2021 End: 09-14-2021 Patient encounter procedure Noemí Jolley PA-C Work Phone: [facility] Start: 09-14-2021 Telephone encounter Noemí garcia PA-C [facility] Comment on above: Referral Information Start: 09-10-2021 Telephone encounter Becky keller RN Work Phone: Hematology/Oncology Comment on above: Care Coordination (C T Results) Start: 09-07-2021 End: 09-07-2021 Subsequent hospital visit by physician Arrival Time Radiology Work Phone: Radiology Pet CT Comment on above: Malignant neoplasm o f unspecified part of unspecified bronchus or lung (HCC) [C34.90] Start: 08-30-2021 Telephone encounter Marry Simpson RN Hematology/Oncology Comment on above: Results Start: 08-28-2021 ambulatory Noemí Jolley PA-C Work Phone: Hematology/Oncology Start: 08-27-2021 End: 08-27-[address] NOEMÍ JOLLEY Facility:[facility] Start: 08-26-2021 End: 08-27-2021 ambulatory Noemí Jolley PA-C Work Phone: Hematology/Oncology Comment on above: Uti Start: 08-16-2021 End: 08-16-2021 ambulatory Chris Blackburn Other [email or web address] Other Start: 08-16-2021 Telephone encounter Chris Blackburn [facility] Start: 08-15-2021 ambulatory Noemí Jolley PA-C Work Phone: Hematology/Oncology Comment on above: Zofran Start: 05-17-2021 End: 05-17-2021 ambulatory Chris Blackburn Other [email or web address] Other Start: 05-17-2021 Office outpatient vi sit 10 minutes Chris Blackburn [facility] Start: 05-12-2021 End: 05-12-2021 ambulatory Chris Blackburn Other [email or web address] Other Start: 05-12-2021 Telephone encounter Chris Blackburn [facility] Start: 04-13-2021 End: 04-13-2021 ambulatory Chris Blackburn Other [email or web address] Other Start: 04-13-2021 Office outpatient ne w 45 minutes Chris Blackburn [facility] Start: 02-25-2021 End: 02-25-2021 Subsequent hospital visit by physician Arrival Time Radiology Work Phone: Radiology Pet CT Comment on above: Lung nodules [R91.8] Procedures Date Procedure Procedure Detail Performing Clinician Start: 04-30-2024 Gluc bld gluc mntr d ev cleared fda spec home use [facility] Provider Start: 02-19-2024 Ct guidance stereota ctic localization Alfredo More MD Work Phone: Start: 02-19-2024 Unlisted magnetic re sonance procedure Alfredo More MD Work Phone: Start: 01-12-2024 Gluc bld gluc mntr d ev cleared fda spec home use [facility] Provider Start: 09-28-2023 Ct abdomen & pelvis w/contrast material Stacy Adhikari MD Work Phone: Start: 09-28-2023 Ct thorax w/contrast material Stacy Adhikari MD Work Phone: Start: 06-14-[address] atten uation skull base mid-thigh Noemí Jolley PA-C Work Phone: Start: 06-14-2023 Gluc bld gluc mntr d ev cleared fda spec home use [facility] Provider Start: 03-01-[address] atten uation skull base mid-thigh Stacy Adhikari MD Work Phone: Start: 03-01-2023 Gluc bld gluc mntr d ev cleared fda spec home use [facility] Provider Start: 01-02-[address] atten uation skull base mid-thigh Stacy Adhikari MD Work Phone: Start: 01-02-2023 Gluc bld gluc mntr d ev cleared fda spec home use [facility] Provider Start: 11-23-2022 Radiologic exam ches t 2 views Amber Pastrana [employer] Work Phone: Start: 11-11-2022 Myocardial spect mul tiple studies Mina Walden MD Work Phone: Start: 10-31-2022 Ct thorax w/contrast material Mina Walden MD Work Phone: Start: 09-21-2022 Co diffusing capacity Zulema Walden MD Work Phone: Start: 09-17-2022 Mri brain brain stem w/o w/contrast material Stacy Adhikari MD Work Phone: Start: 08-10-2022 Brnchsc incl fluor g dnce dx w/cell washg spx Stacy Adhikari MD Work Phone: Start: 08-10-2022 Biopsy JESSIKA PAULA Start: 08-05-2022 Ct thorax w/o contra st material Dre Cantor MD Work Phone: Start: 07-15-[address] atten uation skull base mid-thigh Stacy Adhikari MD Work Phone: Start: 07-15-2022 Gluc bld gluc mntr d ev cleared fda spec home use [facility] Provider Start: 06-23-2022 Ct thorax w/contrast material Stacy Adhikari MD Work Phone: Start: 03-30-2022 Ct abdomen & pelvis w/contrast material Stacy Adhikari MD Work Phone: Start: 03-30-2022 Ct thorax w/contrast material Stacy Adhikari MD Work Phone: Start: 11-30-2021 CT angiography of head DO Finn Meijas Work Phone: Start: 11-30-2021 CT angiography of ne ck vessels DO Finn Mejias Work Phone: Start: 09-27-2021 Adult depression scr eening assessment Stacy Adhikari MD Work Phone: Start: 09-07-2021 Ct thorax w/contrast material Stacy Adhikari MD Work Phone: Start: 02-25-2021 Ct thorax w/contrast material Noemí Jolley PA-C Work Phone: Start: 02-09-2021 Adult depression scr eening assessment Noemí Jolley PA-C Work Phone: Start: 02-08-2017 Bronchoscopy JESSIKA PAULA Chemotherapy Chemotherapy 1 JESSIKA Arzate Comment on above: Last 03/05/18 Decompression of med bj nerve JESSIKA ESQUIVEL Endoscopy and biopsy of upper gastrointestinal tract JESSIKA ESQUIVEL Gallbladder structur e (body structure) JESSIKA ESQUIVEL Partial hysterectomy CHERRY ESQUIVEL Reconstruction of nose LOYDA ESQUIVEL Plan of Treatment Date Care Activity Detail Author Start: 05-02-2027 Diabetes Screening Diabetes Screen[facility] Start: 03-21-2027 Diabetes Screening Diabetes [facility] Start: 02-27-2027 Diabetes Screening Diabetes [facility] Start: 02-06-2027 Diabetes Screening Diabetes [facility] Start: 12-26-2026 [facility] Start: 11-14-2026 [facility] Start: 10-02-2026 [facility] Start: 08-21-2026 [facility] Start: 07-10-2026 [facility] Start: 06-19-2026 Diabetes Screening Diabetes Screen[facility] Start: 05-29-2026 Diabetes Screening Diabetes [facility] Start: 05-09-2026 Diabetes Screening Diabetes [facility] Start: 04-19-2026 Diabetes Screening [facility] Start: 01-25-2026 Diabetes Screening [facility] Start: 01-04-2026 Diabetes Screening Diabetes Screenin g [facility] Start: 12-27-2025 Diabetes Screening Diabetes Screenin g [facility] Start: 11-16-2025 Diabetes Screening Diabetes Screenin g [facility] Start: 11-11-2025 DIABETES SCREEN DIABETES SCREEN [facility] Start: 07-25-2025 DIABETES SCREEN DIABETES SCREEN [facility] Start: 06-29-2025 DIABETES SCREEN DIABETES SCREEN [facility] Start: 04-07-2025 DIABETES SCREEN DIABETES SCREEN [facility] Start: 09-14-2024 DIABETES SCREEN DIABETES SCREEN [facility] Start: 06-13-2024 End: 06-13-2024 Follow-up encounter Hematology/Oncology Comment on above: 6 week follow up wit h lab chemotx Keytruda Start: 06-13-2024 End: 06-13-2024 Patient encounter procedure 06/13/2024 12:45 PM EDT Office Visit [facility] [address] [facility] [place] [address] 6 week follow up with lab chemotx Keytruda [facility] Comment on above: 6 week follow up wit h lab chemotx Keytruda Start: 05-14-2024 End: 05-14-2024 Patient encounter procedure 05/14/2024 2:40 PM EST Office Visit [facility] [address] [place] [id number] Fidelia Garcia, [address] [place] [address] [facility] Start: 05-02-2024 End: 05-02-2024 Follow-up encounter Hematology/Oncology Comment on above: 6 week follow up wit h lab chemotx Keytruda Start: 05-02-2024 End: 05-02-2024 Patient encounter procedure 05/02/2024 12:45 PM EST Office Visit [facility] [address] [place] [address] [place] [address] 6 week follow up with lab chemotx Keytruda [facility] Comment on above: 6 week follow up wit h lab chemotx Keytruda Start: 04-30-2024 End: 04-30-2024 Patient encounter procedure 04/30/2024 11:15 AM EST Appointment Radiology Pet CT [address] [place] [address] Comment on above: PET Start: 04-25-2024 End: 04-20-2025 PET+CT Guidance for localization of tumor of Skull base to mid-thigh-- W 18F-FDG IV NM PET/CT SKULL-THIGH SUBSEQUENT Radiology Routine 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) Malignant neoplasm of right lung, unspecified part of lung (HCC) 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, unspecified laterality (HCC) Expected: 04/25/2024 (Approximate), Expires: 04/20/2025 [facility] Work Phone: Comment on above: Expected: 04/25/2024 (Approximate), Expires: 04/20/2025 Start: 04-25-2024 End: 04-25-2024 Patient encounter procedure 04/25/2024 12:45 PM EST Appointment Radiology Pet CT [address] [place] [address] [place] [address] Comment on above: PET Start: 04-01-2024 End: 04-01-2024 Patient encounter procedure 04/01/2024 2:30 PM EST Office Visit [facility] [address] [place] [address] Hilaria Webber, [employer] [address] [facility] [address] [place] [address] 6-8 week follow up scan for brain metastasis , s/p gamma knife on February 18 [facility] Comment on above: 6-8 week follow up s can for brain metastasis , s/p gamma knife on February 18 Start: 04-01-2024 End: 04-01-2024 Patient encounter procedure 04/01/2024 12:20 PM EST Appointment MRI Q [address] [address] With Perfusion MRI Q Comment on above: With Perfusion Start: 04-01-2024 Subsequent hospital visit by physician 04/01/2024 12:20 PM EST Hospital Encounter MRI Q [address] [address] 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] MRI Q Comment on above: 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] Start: 03-21-2024 End: 03-21-2024 Follow-up encounter Hematology/Oncology Comment on above: 3 week follow up wit h lab chemotx Keytruda Start: 03-21-2024 End: 03-21-2024 Patient encounter procedure 03/21/2024 12:45 PM EST Office Visit [facility] [address] [place] [address] 3 week follow up with lab chemotx Keytruda [facility] Comment on above: 3 week follow up wit h lab chemotx Keytruda Start: 03-14-2024 End: 03-14-2024 Patient encounter procedure 03/14/2024 1:00 PM EST Office Visit [facility] [address] [place] [address] Fidelia Garcia NP [address] [place] [address] [facility] on above: Ar[facility] Start: 02-28-2024 End: 05-29-2024 CBC W Auto Differential panel - Blood COMPLETE BLOOD COUNT AND DIFFERENTIAL Lab Routine 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) Malaise and fatigue Expected: 02/28/2024, Expires: 05/29/2024 [facility] Comment on above: Expected: 02/28/2024 , Expires: 05/29/2024 Start: 02-28-2024 End: 05-29-2024 Comprehensive metabolic 2000 panel - Serum or Plasma COMPREHENSIVE METABOLIC PANEL Lab Routine 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) Malaise and fatigue Expected: 02/28/2024, Expires: 05/29/2024 [facility] Work Phone: Comment on above: Expected: 02/28/2024 , Expires: 05/29/2024 Start: 02-28-2024 End: 02-28-2024 Follow-up encounter 02/28/2024 2:00 PM EST Visit (SP) Office Hematology/Oncology [address] [place] [address] Noemí Jolley, PA-C [address] [place] [address] 3 week follow up with EM or Dr George Hematology/Oncology Comment on above: 3 week follow up wit h EM or Dr Ariel Start: 02-28-2024 End: 05-29-2024 Thyrotropin [Units/volume] in Serum or Plasma THYROID STIMULATING HORMONE Lab Routine 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) Malaise and fatigue Expected: 02/28/2024, Expires: 05/29/2024 [facility] Comment on above: Expected: 02/28/2024 , Expires: 05/29/2024 Start: 02-28-2024 End: 02-28-2024 Patient encounter procedure 02/28/2024 1:45 PM EST Office Visit [facility] [address] [place] [address] [place] [address] 3 week follow up with EM or Dr George [facility] Comment on above: 3 week follow up wit h EM or Dr George Start: 02-20-2024 End: 02-20-2024 Patient encounter procedure 02/20/2024 3:40 PM EST Office Visit [facility] [place] [facility] [address] [phone] Fidelia Garcia NP [address] [facility] [address] [place] [address] [facility] Start: 02-19-2024 End: 02-19-2024 Admission to same day surgery center 02/19/2024 8:10 PM EST - 02/19/2024 8:55 PM EST Surgery Anesthesia [address] [address] Alfredo More MD [address] [place], [place] [id number] STEREOTACTIC RADIOSURGERY 1 COMPLEX CRANIAL LESION Anesthesia Comment on above: STEREOTACTIC RADIOSU RGERY 1 COMPLEX CRANIAL LESION Start: 02-19-2024 End: 02-19-2024 Stereotactic radiosurgery 1 complex cranial les STEREOTACTIC RADIOSURGERY 1 COMPLEX CRANIAL LESION Secondary malignant neoplasm of brain (HCC) 02/19/2024 8:10 PM EST [facility] ANESTHESIA ONLY Start: 02-19-2024 Subsequent hospital visit by physician 02/19/2024 8:10 PM EST Hospital Encounter Anesthesia [address] [address] Alfredo More MD [address] [place] [address] 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] Anesthesia Comment on above: 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] Start: 02-19-2024 End: 02-19-2024 Patient encounter procedure Radiation Oncology Comment on above: AMM/JY (need cvg) AMM/JY (pp cvg per e mail) Start: 02-19-2024 End: 02-19-2024 Patient encounter procedure Radiology Comment on above: CPT 54065 Frame Cpt 70512 Template sent CCN Accepted Start: 02-15-2024 End: 02-15-2024 Patient encounter procedure Radiation Oncology Comment on above: Dx: Brain Mets Time Frame: EXPEDITE Start: 02-12-2024 DIABETES SCREEN DIABETES SCREEN [facility] Start: 02-07-2024 End: 05-08-2024 CBC W Auto Differential panel - Blood COMPLETE BLOOD COUNT AND DIFFERENTIAL Lab Routine 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) Malignant neoplasm of hilus of lung, unspecified laterality (HCC) Malaise and fatigue Expected: 02/07/2024, Expires: 05/08/2024 [facility] Comment on above: Expected: 02/07/2024 , Expires: 05/08/2024 Start: 02-07-2024 End: 05-08-2024 Comprehensive metabolic 2000 panel - Serum or Plasma COMPREHENSIVE METABOLIC PANEL Lab Routine 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) Malignant neoplasm of hilus of lung, unspecified laterality (HCC) Malaise and fatigue Expected: 02/07/2024, Expires: 05/08/2024 [facility] Work Phone: Comment on above: Expected: 02/07/2024 , Expires: 05/08/2024 Start: 02-07-2024 End: 05-08-2024 Thyrotropin [Units/volume] in Serum or Plasma THYROID STIMULATING HORMONE Lab Routine 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) Malignant neoplasm of hilus of lung, unspecified laterality (HCC) Malaise and fatigue Expected: 02/07/2024, Expires: 05/08/2024 [facility] Comment on above: Expected: 02/07/2024 , Expires: 05/08/2024 Start: 02-07-2024 End: 02-07-2024 Follow-up encounter Hematology/Oncology Comment on above: 4 week follow up wit h lab chemotx Keytruda Start: 02-07-2024 End: 02-07-2024 Patient encounter procedure 02/07/2024 12:45 PM EST Office Visit [facility] [address] [place] [address] 4 week follow up with lab chemotx Keytruda [facility] Comment on above: 4 week follow up wit h lab chemotx Keytruda Start: 01-12-2024 End: 01-12-2024 Follow-up encounter 01/12/2024 2:40 PM EDT Visit (SP) Office Hematology/Oncology [address] [facility] [place] [address] Arya Rdz MD [address] [place] [address] follow up after PET scan same day Hematology/Oncology Comment on above: follow up after PET scan same day Start: 01-12-2024 End: 01-12-2024 Patient encounter procedure 01/12/2024 12:45 PM EDT Appointment Radiology Pet CT [address] [facility] [place] [address] Comment on above: PET Start: 01-10-2024 End: 01-25-2025 PET+CT Guidance for localization of tumor of Skull base to mid-thigh-- W 18F-FDG IV NM PET/CT SKULL-THIGH SUBSEQUENT Radiology Routine Malignant neoplasm of unspecified part of unspecified bronchus or lung (HCC) Malignant neoplasm of hilus of lung, unspecified laterality (HCC) Malignant neoplasm of right lung, unspecified part of lung (HCC) 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) Expected: 01/10/2024 (Approximate), Expires: 01/25/2025 [facility] Work Phone: Comment on above: Expected: 01/10/2024 (Approximate), Expires: 01/25/2025 Start: 12-28-2023 End: 01-25-2025 MR Brain WO and W contrast IV MRI BRAIN WO/W IVCON Radiology STAT Malignant neoplasm of unspecified part of unspecified bronchus or lung (HCC) Syncope and collapse Expected: 12/28/2023 (Approximate), Expires: 01/25/2025 [facility] Comment on above: Expected: 12/28/2023 (Approximate), Expires: 01/25/2025 Start: 12-27-2023 End: 12-27-2023 Follow-up encounter Hematology/Oncology Comment on above: 6 WEEK FOLLOW UP CRONIN TRUDA Start: 12-27-2023 End: 12-27-2023 Patient encounter procedure 12/27/2023 1:00 PM EDT Office Visit [facility] [address] [place] [address] 6 [facility] Comment on above: 6 WEEK FOLLOW UP CRONIN TRUDA Start: 12-06-2023 End: 03-06-2024 Thyrotropin [Units/volume] in Serum or Plasma THYROID STIMULATING HORMONE Lab Routine Malignant neoplasm of hilus of lung, unspecified laterality (HCC) Malaise and fatigue Expected: 12/06/2023, Expires: 03/06/2024 [facility] Work Phone: Comment on above: Expected: 12/06/2023 , Expires: 03/06/2024 Start: 12-06-2023 End: 03-06-2024 Thyroxine (T4) free [Mass/volume] in Serum or Plasma T4 FREE/FREE THYROXINE Lab Routine Malignant neoplasm of hilus of lung, unspecified laterality (HCC) Malaise and fatigue Expected: 12/06/2023, Expires: 03/06/2024 [facility] Comment on above: Expected: 12/06/2023 , Expires: 03/06/2024 Start: 12-06-2023 End: 12-06-2023 Patient encounter procedure 12/06/2023 1:30 PM EDT Office Visit [facility] [address] [place] [address] 3 week lab [facility] Comment on above: 3 week lab Start: 11-15-2023 End: 02-14-2024 CBC W Auto Differential panel - Blood COMPLETE BLOOD COUNT AND DIFFERENTIAL Lab Routine Malignant neoplasm of hilus of lung, unspecified laterality (HCC) Thyroid dysfunction Abnormal blood chemistry Expected: 11/15/2023 (Approximate), Expires: 02/14/2024 [facility] Comment on above: Expected: 11/15/2023 (Approximate), Expires: 02/14/2024 Start: 11-15-2023 End: 02-14-2024 Comprehensive metabolic 2000 panel - Serum or Plasma COMPREHENSIVE METABOLIC PANEL Lab Routine Malignant neoplasm of hilus of lung, unspecified laterality (HCC) Thyroid dysfunction Abnormal blood chemistry Expected: 11/15/2023 (Approximate), Expires: 02/14/2024 [facility] Work Phone: Comment on above: Expected: 11/15/2023 (Approximate), Expires: 02/14/2024 Start: 11-15-2023 End: 02-14-2024 Cortisol [Mass/volume] in Serum or Plasma CORTISOL, SERUM Lab Routine Malignant neoplasm of hilus of lung, unspecified laterality (HCC) Thyroid dysfunction Abnormal blood chemistry Expected: 11/15/2023 (Approximate), Expires: 02/14/2024 [facility] Comment on above: Expected: 11/15/2023 (Approximate), Expires: 02/14/2024 Start: 11-15-2023 End: 11-15-2023 Follow-up encounter Hematology/Oncology Comment on above: 6 WEEK FOLLOW UP MEHRDAD ASTORGA Start: 11-15-2023 End: 02-14-2024 Hemoglobin A1c in Blood HEMOGLOBIN A1C Lab Routine Malignant neoplasm of hilus of lung, unspecified laterality (HCC) Thyroid dysfunction Abnormal blood chemistry Expected: 11/15/2023 (Approximate), Expires: 02/14/2024 [facility] Comment on above: Expected: 11/15/2023 (Approximate), Expires: 02/14/2024 Start: 11-15-2023 End: 02-14-2024 Thyrotropin [Units/volume] in Serum or Plasma THYROID STIMULATING HORMONE Lab Routine Malignant neoplasm of hilus of lung, unspecified laterality (HCC) Thyroid dysfunction Abnormal blood chemistry Expected: 11/15/2023 (Approximate), Expires: 02/14/2024 [facility] Comment on above: Expected: 11/15/2023 (Approximate), Expires: 02/14/2024 Start: 11-15-2023 End: 11-15-2023 Patient encounter procedure 11/15/2023 1:45 PM EDT Office Visit [facility] [address] [place] [address] [place] [address] 6 WEEK FOLLOW UP KEYTRUDA [facility] Comment on above: [facility] Start: 11-12-2023 Covid-19 Vaccine () Covid-19 Vaccine () [facility] Start: 11-12-2023 Covid-19 Vaccine () Covid-19 Vaccine () [facility] Start: 11-12-2023 Influenza vaccination [facility] Start: 10-03-2023 End: 01-02-2024 CBC W Auto Differential panel - Blood COMPLETE BLOOD COUNT AND DIFFERENTIAL Lab Routine Malignant neoplasm of hilus of lung, unspecified laterality (HCC) Expected: 10/03/2023 (Approximate), Expires: 01/02/2024 [facility] Comment on above: Expected: 10/03/2023 (Approximate), Expires: 01/02/2024 Start: 10-03-2023 End: 01-02-2024 Comprehensive metabolic 2000 panel - Serum or Plasma COMPREHENSIVE METABOLIC PANEL Lab Routine Malignant neoplasm of hilus of lung, unspecified laterality (HCC) Expected: 10/03/2023 (Approximate), Expires: 01/02/2024 [facility] Comment on above: Expected: 10/03/2023 (Approximate), Expires: 01/02/2024 Start: 10-03-2023 End: 09-20-2024 CT Abdomen and Pelvis W contrast IV CT ABD/PEL W IVCON Radiology Routine Malignant neoplasm of hilus of lung, unspecified laterality (HCC) Malignant neoplasm of right lung, unspecified part of lung (HCC) Expected: 10/03/2023 (Approximate), Expires: 09/20/2024 [facility] Comment on above: Expected: 10/03/2023 (Approximate), Expires: 09/20/2024 Start: 10-03-2023 End: 09-20-2024 CT Chest W contrast IV CT CHEST W IVCON Radiology Routine Malignant neoplasm of hilus of lung, unspecified laterality (HCC) Expected: 10/03/2023 (Approximate), Expires: 09/20/2024 [facility] Work Phone: Comment on above: Expected: 10/03/2023 (Approximate), Expires: 09/20/2024 Start: 10-03-2023 End: 01-02-2024 Thyrotropin [Units/volume] in Serum or Plasma THYROID STIMULATING HORMONE Lab Routine Malignant neoplasm of hilus of lung, unspecified laterality (HCC) Expected: 10/03/2023 (Approximate), Expires: 01/02/2024 [facility] Comment on above: Expected: 10/03/2023 (Approximate), Expires: 01/02/2024 Start: 10-03-2023 End: 10-03-2023 Follow-up encounter Hematology/Oncology Comment on above: 6 WEEK FOLLOW UP CRONIN RIZWAN Start: 10-03-2023 End: 10-03-2023 Patient encounter procedure 10/03/2023 1:30 PM EDT Office Visit [facility] [address] [place] [address] 6 WEEK FOLLOW UP [facility] Comment on above: 6 WEEK FOLLOW UP CRONIN TRUDA Start: 09-28-2023 End: 09-28-2023 Patient encounter procedure 09/28/2023 7:45 AM EDT Appointment Radiology Pet CT [address] [place] [address] CT CAP W IV Radiology Pet CT Comment on above: CT CAP W IV Start: 08-22-2023 End: 11-21-2023 CBC W Auto Differential panel - Blood COMPLETE BLOOD COUNT AND DIFFERENTIAL Lab Routine Malignant neoplasm of hilus of lung, unspecified laterality (HCC) Anemia, unspecified type Malaise and fatigue Expected: 08/22/2023 (Approximate), Expires: 11/21/2023 [facility] Comment on above: Expected: 08/22/2023 (Approximate), Expires: 11/21/2023 Start: 08-22-2023 End: 11-21-2023 Comprehensive metabolic 2000 panel - Serum or Plasma COMPREHENSIVE METABOLIC PANEL Lab Routine Malignant neoplasm of hilus of lung, unspecified laterality (HCC) Anemia, unspecified type Malaise and fatigue Expected: 08/22/2023 (Approximate), Expires: 11/21/2023 [facility] Work Phone: Comment on above: Expected: 08/22/2023 (Approximate), Expires: 11/21/2023 Start: 08-22-2023 End: 11-21-2023 Thyrotropin [Units/volume] in Serum or Plasma THYROID STIMULATING HORMONE Lab Routine Malignant neoplasm of hilus of lung, unspecified laterality (HCC) Anemia, unspecified type Malaise and fatigue Expected: 08/22/2023 (Approximate), Expires: 11/21/2023 [facility] Comment on above: Expected: 08/22/2023 (Approximate), Expires: 11/21/2023 Start: 08-22-2023 End: 08-22-2023 Follow-up encounter Hematology/Oncology Comment on above: 6 WEEK FOLLOW UP CRONIN TRUDA Start: 08-22-2023 End: 08-22-2023 Patient encounter procedure 08/22/2023 1:30 PM EDT Office Visit [facility] [address] [place] [address] [place] [address] [facility] on above: 6 WEEK FOLLOW UP CRONIN TRUDA Start: 07-11-2023 End: 10-10-2023 CBC W Auto Differential panel - Blood CBC + DIFF Lab Routine Malignant neoplasm of hilus of lung, unspecified laterality (HCC) Expected: 07/11/2023 (Approximate), Expires: 10/10/2023 [facility] Work Phone: Comment on above: Expected: 07/11/2023 (Approximate), Expires: 10/10/2023 Start: 07-11-2023 End: 10-10-2023 Comprehensive metabolic 2000 panel - Serum or Plasma COMP METABOLIC PANEL Lab Routine Malignant neoplasm of hilus of lung, unspecified laterality (HCC) Expected: 07/11/2023 (Approximate), Expires: 10/10/2023 [facility] Work Phone: Comment on above: Expected: 07/11/2023 (Approximate), Expires: 10/10/2023 Start: 07-11-2023 End: 10-10-2023 Thyrotropin [Units/volume] in Serum or Plasma TSH BLD Lab Routine Malignant neoplasm of hilus of lung, unspecified laterality (HCC) Expected: 07/11/2023 (Approximate), Expires: 10/10/2023 [facility] Work Phone: Comment on above: Expected: 07/11/2023 (Approximate), Expires: 10/10/2023 Start: 2023 RSV Vaccine (1 - 1-d ose 60+ series) RSV Vaccine (1 - 1-dose 60+ series) [facility] Start: 2023 RSV Vaccine (1 - Ris k 60-74 years 1-dose series) RSV Vaccine (1 - Risk 60-74 years 1-dose series) [facility] Start: 06-20-2023 End: 09-19-2023 CBC W Auto Differential panel - Blood CBC + DIFF Lab Routine Malignant neoplasm of hilus of lung, unspecified laterality (HCC) Malaise and fatigue Expected: 06/20/2023 (Approximate), Expires: 09/19/2023 [facility] Work Phone: Comment on above: Expected: 06/20/2023 (Approximate), Expires: 09/19/2023 Start: 06-20-2023 End: 09-19-2023 Comprehensive metabolic 2000 panel - Serum or Plasma COMP METABOLIC PANEL Lab Routine Malignant neoplasm of hilus of lung, unspecified laterality (HCC) Malaise and fatigue Expected: 06/20/2023 (Approximate), Expires: 09/19/2023 [facility] Work Phone: Comment on above: Expected: 06/20/2023 (Approximate), Expires: 09/19/2023 Start: 06-20-2023 End: 09-19-2023 Thyrotropin [Units/volume] in Serum or Plasma TSH BLD Lab Routine Malignant neoplasm of hilus of lung, unspecified laterality (HCC) Malaise and fatigue Expected: 06/20/2023 (Approximate), Expires: 09/19/2023 [facility] Work Phone: Comment on above: Expected: 06/20/2023 (Approximate), Expires: 09/19/2023 Start: 05-30-2023 End: 08-29-2023 CBC W Auto Differential panel - Blood CBC + DIFF Lab Routine Malignant neoplasm of hilus of lung, unspecified laterality (HCC) Malaise and fatigue Expected: 05/30/2023 (Approximate), Expires: 08/29/2023 [facility] Work Phone: Comment on above: Expected: 05/30/2023 (Approximate), Expires: 08/29/2023 Start: 05-30-2023 End: 08-29-2023 Comprehensive metabolic 2000 panel - Serum or Plasma COMP METABOLIC PANEL Lab Routine Malignant neoplasm of hilus of lung, unspecified laterality (HCC) Malaise and fatigue Expected: 05/30/2023 (Approximate), Expires: 08/29/2023 [facility] Work Phone: Comment on above: Expected: 05/30/2023 (Approximate), Expires: 08/29/2023 Start: 05-30-2023 End: 08-29-2023 Thyrotropin [Units/volume] in Serum or Plasma TSH BLD Lab Routine Malignant neoplasm of hilus of lung, unspecified laterality (HCC) Malaise and fatigue Expected: 05/30/2023 (Approximate), Expires: 08/29/2023 [facility] Work Phone: Comment on above: Expected: 05/30/2023 (Approximate), Expires: 08/29/2023 Start: 03-13-2023 Behavioral Health Screening Behavioral Health Screening [facility] Start: 03-13-2023 Depression Assessment Depression Ass essment [facility] Start: 03-13-2023 zzBehavioral Health Screening zzBehavioral Health Screening [facility] Start: 03-08-2023 End: 06-07-2023 CBC W Auto Differential panel - Blood CBC + DIFF Lab Routine Malignant neoplasm of upper lobe of left lung (HCC) Expected: 03/08/2023 (Approximate), Expires: 06/07/2023 [facility] Work Phone: Comment on above: Expected: 03/08/2023 (Approximate), Expires: 06/07/2023 Start: 03-08-2023 End: 06-07-2023 Comprehensive metabolic 2000 panel - Serum or Plasma COMP METABOLIC PANEL Lab Routine Malignant neoplasm of upper lobe of left lung (HCC) Expected: 03/08/2023 (Approximate), Expires: 06/07/2023 [facility] Work Phone: Comment on above: Expected: 03/08/2023 (Approximate), Expires: 06/07/2023 Start: 03-08-2023 End: 03-16-2024 NM PET/CT SKULL-THIGH SUBSEQUENT NM PET/CT SKULL-THIGH SUBSEQUENT Radiology Routine Malignant neoplasm of upper lobe of left lung (HCC) Expected: 03/08/2023 (Approximate), Expires: 03/16/2024 [facility] Work Phone: Comment on above: Expected: 03/08/2023 (Approximate), Expires: 03/16/2024 Start: 03-08-2023 End: 06-07-2023 Thyrotropin [Units/volume] in Serum or Plasma TSH BLD Lab Routine Malignant neoplasm of upper lobe of left lung (HCC) Expected: 03/08/2023 (Approximate), Expires: 06/07/2023 [facility] Work Phone: Comment on above: Expected: 03/08/2023 (Approximate), Expires: 06/07/2023 Start: 02-15-2023 End: 05-17-2023 CBC W Auto Differential panel - Blood CBC + DIFF Lab Routine Anemia, unspecified type Malignant neoplasm of upper lobe of left lung (HCC) Malaise and fatigue Expected: 02/15/2023 (Approximate), Expires: 05/17/2023 [facility] Work Phone: Comment on above: Expected: 02/15/2023 (Approximate), Expires: 05/17/2023 Start: 02-15-2023 End: 05-17-2023 Comprehensive metabolic 2000 panel - Serum or Plasma COMP METABOLIC PANEL Lab Routine Anemia, unspecified type Malignant neoplasm of upper lobe of left lung (HCC) Malaise and fatigue Expected: 02/15/2023 (Approximate), Expires: 05/17/2023 [facility] Work Phone: Comment on above: Expected: 02/15/2023 (Approximate), Expires: 05/17/2023 Start: 02-15-2023 End: 05-17-2023 Thyrotropin [Units/volume] in Serum or Plasma TSH BLD Lab Routine Anemia, unspecified type Malignant neoplasm of upper lobe of left lung (HCC) Malaise and fatigue Expected: 02/15/2023 (Approximate), Expires: 05/17/2023 [facility] Work Phone: Comment on above: Expected: 02/15/2023 (Approximate), Expires: 05/17/2023 Start: 01-25-2023 End: 04-26-2023 CBC W Auto Differential panel - Blood CBC + DIFF Lab Routine Malignant neoplasm of upper lobe of left lung (HCC) Malaise and fatigue Expected: 01/25/2023 (Approximate), Expires: 04/26/2023 [facility] Work Phone: Comment on above: Expected: 01/25/2023 (Approximate), Expires: 04/26/2023 Start: 01-25-2023 End: 04-26-2023 Cobalamin (Vitamin B12) [Mass/volume] in Serum or Plasma [facility] Work Phone: Comment on above: Expected: 01/25/2023 , Expires: 04/26/2023 Start: 01-25-2023 End: 04-26-2023 Comprehensive metabolic 2000 panel - Serum or Plasma COMP METABOLIC PANEL Lab Routine Malignant neoplasm of upper lobe of left lung (HCC) Malaise and fatigue Expected: 01/25/2023 (Approximate), Expires: 04/26/2023 [facility] Work Phone: Comment on above: Expected: 01/25/2023 (Approximate), Expires: 04/26/2023 Start: 01-25-2023 End: 04-26-2023 Ferritin [Mass/volume] in Serum or Plasma [facility] Work Phone: Comment on above: Expected: 01/25/2023 , Expires: 04/26/2023 Start: 01-25-2023 End: 04-26-2023 Folate [Mass/volume] in Serum or Plasma [facility] Work Phone: Comment on above: Expected: 01/25/2023 , Expires: 04/26/2023 Start: 01-25-2023 End: 04-26-2023 Iron and Iron binding capacity panel - Serum or Plasma [facility] Work Phone: Comment on above: Expected: 01/25/2023 , Expires: 04/26/2023 Start: 01-25-2023 End: 04-26-2023 Thyrotropin [Units/volume] in Serum or Plasma TSH BLD Lab Routine Malignant neoplasm of upper lobe of left lung (HCC) Malaise and fatigue Expected: 01/25/2023 (Approximate), Expires: 04/26/2023 [facility] Work Phone: Comment on above: Expected: 01/25/2023 (Approximate), Expires: 04/26/2023 Start: 01-25-2023 End: 04-26-2023 Urinalysis complete panel - Urine [facility] Work Phone: Comment on above: Expected: 01/25/2023 , Expires: 04/26/2023 Start: 01-03-2023 End: 04-04-2023 Thyrotropin [Units/volume] in Serum or Plasma TSH BLD Lab Routine Malaise and fatigue Expected: 01/03/2023, Expires: 04/04/2023 [facility] Work Phone: Comment on above: Expected: 01/03/2023 , Expires: 04/04/2023 Start: 11-11-2022 Covid-19 Vaccine () Covid-19 Vaccine () [facility] Start: 11-11-2022 Influenza vaccination [facility] Start: 09-27-2022 Adult depression screening assessment DEPRESSION SCREENING [facility] Start: 08-17-2022 End: 10-17-2022 MISC SEND OUT TST 1 MISC SEND OUT TST 1 Lab Routine Malignant neoplasm of hilus of lung, unspecified laterality (HCC) Expected: 08/17/2022, Expires: 10/17/2022 [facility] Work Phone: Comment on above: Expected: 08/17/2022 , Expires: 10/17/2022 Start: 07-06-2022 End: 09-05-2022 CBC W Auto Differential panel - Blood CBC + DIFF Lab Routine Malignant neoplasm of unspecified part of unspecified bronchus or lung (HCC) Expected: 07/06/2022 (Approximate), Expires: 09/05/2022 [facility] Work Phone: Comment on above: Expected: 07/06/2022 (Approximate), Expires: 09/05/2022 Start: 07-06-2022 End: 09-05-2022 Comprehensive metabolic 2000 panel - Serum or Plasma COMP METABOLIC PANEL Lab Routine Malignant neoplasm of unspecified part of unspecified bronchus or lung (HCC) Expected: 07/06/2022 (Approximate), Expires: 09/05/2022 [facility] Work Phone: Comment on above: Expected: 07/06/2022 (Approximate), Expires: 09/05/2022 Start: 07-06-2022 End: 05-07-2023 CT CHEST W IVCON CT CHEST W IVCON Radiology Routine Malignant neoplasm of unspecified part of unspecified bronchus or lung (HCC) Expected: 07/06/2022 (Approximate), Expires: 05/07/2023 [facility] Work Phone: Comment on above: Expected: 07/06/2022 (Approximate), Expires: 05/07/2023 Start: 07-06-2022 End: 07-07-2023 SARS-CoV-2 (COVID-19) RNA [Presence] in Respiratory specimen by SILVANO with probe detection PRE-PROCEDURE & PRE-OPERATIVE COVID Microbiology Routine Preoperative examination Expected: 07/06/2022, Expires: 07/07/2023 [facility] Work Phone: Comment on above: Expected: 07/06/2022 , Expires: 07/07/2023 Start: 07-05-2022 End: 09-04-2022 Basic metabolic 2000 panel - Serum or Plasma BASIC METABOLIC PNL Lab STAT Small cell carcinoma of lung, 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) Lung nodule Pre-op testing Expected: 07/05/2022, Expires: 09/04/2022 [facility] Work Phone: Comment on above: Expected: 07/05/2022 , Expires: 09/04/2022 Start: 07-05-2022 End: 09-04-2022 CBC W Auto Differential panel - Blood CBC + DIFF Lab STAT Small cell carcinoma of lung, 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) Lung nodule Pre-op testing Expected: 07/05/2022, Expires: 09/04/2022 [facility] Work Phone: Comment on above: Expected: 07/05/2022 , Expires: 09/04/2022 Start: 04-01-2022 End: 10-30-2022 Ct abdomen & pelvis w/contrast material CT ABD/PEL W IVCON Radiology Routine Malignant neoplasm of unspecified part of unspecified bronchus or lung (HCC) Expected: 04/01/2022, Expires: 10/30/2022 [facility] Work Phone: Comment on above: Expected: 04/01/2022 , Expires: 10/30/2022 Start: 04-01-2022 End: 10-30-2022 CT CHEST W IVCON CT CHEST W IVCON Radiology Routine Malignant neoplasm of unspecified part of unspecified bronchus or lung (HCC) Expected: 04/01/2022, Expires: 10/30/2022 [facility] Work Phone: Comment on above: Expected: 04/01/2022 , Expires: 10/30/2022 Start: 03-17-2022 End: 05-17-2022 CBC W Auto Differential panel - Blood CBC + DIFF Lab Routine Malignant neoplasm of unspecified part of unspecified bronchus or lung (HCC) Abnormal weight loss Expected: 03/17/2022 (Approximate), Expires: 05/17/2022 [facility] Work Phone: Comment on above: Expected: 03/17/2022 (Approximate), Expires: 05/17/2022 Start: 03-17-2022 End: 05-17-2022 Comprehensive metabolic 2000 panel - Serum or Plasma COMP METABOLIC PANEL Lab Routine Malignant neoplasm of unspecified part of unspecified bronchus or lung (HCC) Abnormal weight loss Expected: 03/17/2022 (Approximate), Expires: 05/17/2022 [facility] Work Phone: Comment on above: Expected: 03/17/2022 (Approximate), Expires: 05/17/2022 Start: 03-17-2022 End: 10-14-2022 Ct thorax w/contrast material CT CHEST W IVCON Radiology Routine Malignant neoplasm of unspecified part of unspecified bronchus or lung (HCC) Expected: 03/17/2022 (Approximate), Expires: 10/14/2022 [facility] Work Phone: Comment on above: Expected: 03/17/2022 (Approximate), Expires: 10/14/2022 Start: 03-13-2022 DEPRESSION ASSESSMENT DEPRESSION ASS ESSMENT [facility] Start: 02-09-2022 Adult depression screening assessment DEPRESSION SCREENING [facility] Start: 11-11-2021 Influenza vaccination INFLUENZA (#1) [facility] Start: 09-30-2021 End: 10-14-2021 Influenza virus A and B RNA and SARS-CoV-2 (COVID-19) N gene panel - Respiratory specimen by SILVANO with probe detection COVID WITH FLUA+B, ROUTINE Microbiology Routine Close exposure to COVID-19 virus Expected: 09/30/2021, Expires: 10/14/2021 [facility] Work Phone: Comment on above: Expected: 09/30/2021 , Expires: 10/14/2021 Start: 09-27-2021 COVID-19 VACCINE (5 - Booster for Pfizer series) COVID-19 VACCINE (5 - Booster for Pfizer series) [facility] Start: 09-27-2021 COVID-19 VACCINE (5 - Pfizer series) COVID-19 VACCINE (5 - Pfizer series) [facility] Start: 04-20-2021 COVID-19 VACCINE (4 - Booster for Pfizer series) COVID-19 VACCINE (4 - Booster for Pfizer series) [facility] Start: 03-13-2021 DEPRESSION ASSESSMENT DEPRESSION ASS ESSMENT [facility] Start: 06-27-2013 SHINGRIX VACCINE (1 of 2) SHINGRIX VACCINE (1 of 2) [facility] Start: 06-27-2008 COLOGUARD (FIT-DNA) COLOGUARD (FIT-D NA) [facility] Start: 06-27-2008 Colonoscopy COLONOSCOPY [facility] Start: 06-27-2008 COLORECTAL CANCER SCREENING COLORECTAL CANCER SCREENING [facility] Start: 06-27-[address] COLONOGRAPHY [facility] Start: 06-27-2008 FECAL OCCULT BLOOD FECAL OCCULT BLOO D [facility] Start: 06-27-2008 Lipid 1996 panel - S aruna or Plasma Lipid Screening [facility] Start: 06-27-2008 Lipid panel Lipid Screening [facility] Start: 06-27-2008 LIPID SCREEN LIPID SCREEN [facility] Start: 06-27-2008 Screening for malign ant neoplasm of colon [facility] Start: 06-27-2008 SIGMOIDOSCOPY SIGMOIDOSCOPY [facility] Start: 2003 Mammography [facility] Start: 2003 Screening for malign ant neoplasm of breast [facility] Start: 01-18-2003 PNEUMOCOCCAL (2 - PCV) PNEUMOCOCCAL (2 - PCV) [facility] Start: 10-04-2001 Urine microalbumin profile [facility] Start: 06-27-1993 HPV TESTING HPV TESTING [facility] Start: 06-27-1993 Screening for malign ant neoplasm of cervix [facility] Start: 06-27-1993 Zoledronic acid therapy Alpha- 1 Antitrypsin Deficiency Screening [facility] Start: 06-27-1984 PAP TESTING PAP TESTING [facility] Start: 06-27-1984 Screening for malign ant neoplasm of cervix [facility] Start: 06-27-1982 SHINGRIX VACCINE (1 of 2) SHINGRIX VACCINE (1 of 2) [facility] Start: 06-27-1981 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 VISIT ANNUAL PCP TEAM CHRONIC DISEASE VISIT [facility] Start: 06-27-1981 Anxiety Screening Anxiety Screening [facility] Start: 06-27-1981 Depression Screening Depression Scre ening [facility] Start: 06-27-1981 HEPATITIS C SCREENING HEPATITIS C [facility] Start: 06-27-1981 Hepatitis C screening Hepatitis C [facility] Start: 06-27-1981 HIV SCREENING HIV SCREENING [facility] Start: 06-27-1981 HIV screening HIV Screening [facility] Start: 1963 HEPATITIS B (1 of 3 - 3-dose series) HEPATITIS B (1 of 3 - 3-dose series) [facility] Start: 1965 Screening for malign ant neoplasm of colon [facility] Bacteria identified in Urine by Culture URINE CULTURE Microbiology Routine Dysuria Ordered: 08/26/2021 [facility] Work Phone: Comment on above: Ordered: 08/26/2021 Bacteria identified in Urine by Culture BACTERIAL CULTURE, URINE Microbiology Routine Dysuria Malignant neoplasm of hilus of lung, unspecified laterality (HCC) Ordered: 03/29/2024 [facility] Comment on above: Ordered: 03/29/2024 End: 12-24-2024 CBC W Auto Differential panel - Blood COMPLETE BLOOD COUNT AND DIFFERENTIAL Lab Routine Malignant neoplasm of right lung, unspecified part of lung (HCC) Every 6 weeks for 9 Occurrences starting 12/25/2023 until 12/24/2024 [facility] Comment on above: Every 6 weeks for 9 Occurrences starting 12/25/2023 until 12/24/2024 End: 12-24-2024 Comprehensive metabolic 2000 panel - Serum or Plasma COMPREHENSIVE METABOLIC PANEL Lab Routine Malignant neoplasm of right lung, unspecified part of lung (HCC) Every 6 weeks for 9 Occurrences starting 12/25/2023 until 12/24/2024 [facility] Work Phone: Comment on above: Every 6 weeks for 9 Occurrences starting 12/25/2023 until 12/24/2024 End: 12-24-2024 Cortisol [Mass/volume] in Serum or Plasma CORTISOL, SERUM Lab Routine Abnormal blood chemistry Every 6 weeks for 9 Occurrences starting 12/25/2023 until 12/24/2024 [facility] Comment on above: Every 6 weeks for 9 Occurrences starting 12/25/2023 until 12/24/2024 End: 08-04-2023 Ct thorax w/o contrast material CT CHEST WO IVCON Radiology Routine Small cell carcinoma of lung, 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) Lung nodule Pre-op testing 1 Occurrences starting 07/05/2022 until 08/04/2023 [facility] Work Phone: Comment on above: 1 Occurrences starti ng 07/05/2022 until 08/04/2023 CYTOLOGY NON-DOCTORATE OF CHIROPRACTIC [facility] Work Phone: Comment on above: Release Upon Orderin g for 1 Occurrences starting 08/10/2022, 1 completed End: 07-06-2023 ECG COMPLETE ECG COMPLETE ECG STAT Small cell carcinoma of lung, 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) Lung nodule Pre-op testing 1 Occurrences starting 07/05/2022 until 07/06/2023 [facility] Work Phone: Comment on above: 1 Occurrences starti ng 07/05/2022 until 07/06/2023 End: 12-24-2024 Hemoglobin A1c in Blood HEMOGLOBIN A1C Lab Routine Abnormal blood chemistry Every 6 weeks for 9 Occurrences starting 12/25/2023 until 12/24/2024 [facility] Comment on above: Every 6 weeks for 9 Occurrences starting 12/25/2023 until 12/24/2024 End: 10-14-2022 Mri brain brain stem w/o w/contrast material MRI BRAIN WO/W IVCON Radiology Routine Malignant neoplasm of unspecified part of unspecified bronchus or lung (HCC) 1 Occurrences starting 09/14/2021 until 10/14/2022 [facility] Work Phone: Comment on above: 1 Occurrences starti ng 09/14/2021 until 10/14/2022 End: 2024 PET+CT Guidance for localization of tumor of Skull base to mid-thigh-- W 18F-FDG IV NM PET/CT SKULL-THIGH SUBSEQUENT Radiology Routine Malignant neoplasm of hilus of lung, unspecified laterality (HCC) Malaise and fatigue Malignant neoplasm of unspecified part of unspecified bronchus or lung (HCC) 1 Occurrences starting 05/30/2023 until 2024 [facility] Work Phone: Comment on above: 1 Occurrences starti ng 05/30/2023 until 2024 PET+CT Guidance for localization of tumor of Skull base to mid-thigh-- W 18F-FDG IV NM PET/CT SKULL-THIGH SUBSEQUENT Radiology Routine Malignant neoplasm of unspecified part of unspecified bronchus or lung (HCC) Malignant neoplasm of hilus of lung, unspecified laterality (HCC) Malignant neoplasm of right lung, unspecified part of lung (HCC) 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) 01/12/2024 2:46 PM EDT [facility] Work Phone: PET+CT Guidance for localization of tumor of Skull base to mid-thigh-- W 18F-FDG IV NM PET/CT SKULL-THIGH SUBSEQUENT Radiology Routine 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) Malignant neoplasm of right lung, unspecified part of lung (HCC) 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, unspecified laterality (HCC) 04/30/2024 12:57 PM EST [facility] Work Phone: REFERRAL FOR ADDITIO NAL BIOMARKER AND MOLECULAR TESTING [facility] Work Phone: SARS-CoV-2 (COVID-19 ) RNA [Presence] in Respiratory specimen by SILVANO with probe detection SELF CHECK COVID Microbiology Routine Small cell carcinoma of lung, 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) Lung nodule Pre-op testing Ordered: 07/05/2022 [facility] Work Phone: Comment on above: Ordered: 07/05/2022 SURGICAL PATHOLOGY [facility] Work Phone: Comment on above: Release Upon Orderin g for 1 Occurrences starting 08/10/2022, 1 completed Thyrotropin [Units/volume] in Serum or Plasma TSH BLD Lab Routine Malaise and fatigue 01/04/2023 1:15 PM EDT [facility] Work Phone: End: 12-24-2024 Thyrotropin [Units/volume] in Serum or Plasma THYROID STIMULATING HORMONE Lab Routine Malaise and fatigue Every 6 weeks for 9 Occurrences starting 12/25/2023 until 12/24/2024 [facility] Comment on above: Every 6 weeks for 9 Occurrences starting 12/25/2023 until 12/24/2024 UA DIP, URINE (POC) UA DIP, URIN E (POC) Lab Routine Dysuria Ordered: 08/26/2021 [facility] Work Phone: Comment on above: Ordered: 08/26/2021 UA DIP, URINE (POC) UA DIP, URIN E (POC) Lab Routine Dysuria Malignant neoplasm of hilus of lung, unspecified laterality (HCC) Ordered: 03/29/2024 [facility] Work Phone: Comment on above: Ordered: 03/29/[address] [facility] [address] & VAS [facility] Immunizations Immunization Date Immunization Notes Care Provider [facility] 08-05-2022 pneumococcal (PCV20) vaccine, 20 valent (PREVNAR 20) Stacy Adhikari MD Work Phone: [facility] 12-16-2021 influenza nasal, unspecified formulation Jose Rafael Fernandes APRN.CNP Work Phone: [facility] 12-16-2021 influenza virus vaccine, unspecified formulation JESSIKA ESQUIVEL [facility] 12-16-2021 influenza, injectabl e, quadrivalent, contains preservative [facility] Work Phone: [facility] 08-02-2021 COVID-19 original vaccine, age 12+ yr, monovalent ([email or web address] - FOSTER TOP) Stacy Adhikari MD Work Phone: [facility] 08-02-2021 SARS-CoV-2 mRNA (jvcdknzqgzu-oxoa-lndjv se) vaccine JESSIKA ESQUIVEL [facility] 12-18-2020 SARS-CoV-2 (COVID-19 ) mRNA BNT-162b2 vax JESSIKA ESQUIVEL [facility] 11-26-2020 influenza nasal, unspecified formulation Dre Cantor MD Work Phone: [facility] 11-26-2020 influenza virus vaccine, unspecified formulation JESSIKA ESQUIVEL [facility] 11-26-2020 influenza, injectabl e, quadrivalent, preservative free Noemí Samreen PA-C Work Phone: [facility] 06-03-2020 COVID-19 vaccine, ag e 12+ yr (PFIZER-BIONTECH - PURPLE TOP) Noemí Daviser PA-C Work Phone: [facility] 05-13-2020 COVID-19 vaccine, ag e 12+ yr (PFIZER-BIONTECH - PURPLE TOP) Noemí Samreen PA-C Work Phone: [facility] 01-16-2020 influenza nasal, unspecified formulation Dre Cantor MD Work Phone: [facility] 01-16-2020 influenza virus vaccine, unspecified formulation JESSIKA ESQUIVEL [facility] 01-16-2020 Influenza, injectabl e, Madin Codorus Canine Kidney, preservative free, quadrivalent Noemí Samreen PA-C Work Phone: [facility] 01-18-2002 pneumococcal polysaccharide vaccine, 23 valent Noemí Jolley PA-C Work Phone: [facility] 10-03-2001 TD(adult) unspecifie d formulation; Translations: [Td(adult) unspecified formulation] Noemí Jolley PA-C Work Phone: [facility] NEGATED: Highlighted row has not occurred!09-21-2021 SARS-CoV-2 mRNA (tojuliannan 5y-11y) vaccine JESSIKAMELY ESQUIVEL [facility] Payers Date Payer Category Payer Self-pay [id number] 2017 Blue [employer] Blue Shield [id number] 2017 Unknown [employer] BLUE CARD PPO OOS [id number] 2017-Present [phone] [address] [place] [address] PPO [id number] 2017 Unknown [id number] 2017 Unknown [id number] 1965 Unknown [id number] 56 1963 Unknown [id number] 93 1963 Unknown [id number] 93 1963 Unknown [id number] 93 1963 Unknown [id number] 93 1963 Unknown [id number] 93 1963 Unknown [id number] 93 1963 Unknown [id number] 93 1963 Unknown [id number] 93 1963 Unknown [id number] 259 1963 Unknown [id number] 27 1963 Unknown [id number] 27 1959 [facility] [id number] Unknown [id number] 31 Social History Date Type Detail Facility Start: 01-12-2017 End: 09-21-2022 Tobacco smoking status NVIS Smokes tobacco daily [facility] History of tobacco use Cigarette Smoker [facility] Start: 01-12-2017 End: 07-20-2022 Cigarettes smoked current (pack per day) - Reported 1.5 [facility] Start: 01-12-2017 End: 09-21-2022 Tobacco use and exposure Smokeless tobacco non-user [facility] Start: 02-11-2021 End: 05-02-2024 Alcohol intake Current non-drinker of alcohol (finding) [facility] Start: 1965 Sex Assigned At Not on file [facility] Start: 07-20-2022 End: 08-26-2022 Sex Assigned At [facility] Start: 01-26-2021 End: 09-29-2021 Exposure to SARS-CoV-2 (event) Not sure [facility] Start: 06-06-2017 Tobacco smoking stat us NHIS Smoker (finding) [facility] Start: 1965 Sex Assigned At Female F [facility] Start: 05-20-2020 End: 11-07-2023 Tobacco smoking status Heavy tobacco smoker (finding) [facility] Comment on above: Started smoking nicholasi luyl barahona Adult Depression Screening Assessment 0 [facility] Start: 09-21-2022 Tobacco Comment 4 cigs per day [facility] Start: 11-01-2022 Tobacco smoking status Light t obacco smoker (finding) [facility] Tobacco smoking stat us NHIS Tobacco smoking consumption unknown [facility] Start: 10-18-2023 Gender identity Identifies as female gender (finding) [facility] Functional Status Date Assessment Result Facility 11-07-2023 Functional Status N/A [facility] 11-01-2022 Functional Status N/A [facility] 05-04-2022 Functional Status N/A [facility] 01-12-2017 Are you deaf, or do you have serious difficulty hearing No 01/12/2017 3:33 PM Tae Sharif No [facility] 01-12-2017 Are you blind, or do you have serious difficulty seeing, even when wearing glasses No 01/12/2017 3:33 PM Tae Sharif No [facility] 01-12-2017 Do you have serious difficulty walking or climbing stairs No 01/12/2017 3:33 PM Tae Sharif No [facility] 01-12-2017 Do you have difficul ty dressing or bathing No 01/12/2017 3:33 PM Tae Sharif No [facility] 01-12-2017 Because of a physica l, mental, or emotional condition, do you have difficulty doing errands alone such as visiting a physician's office or shopping No 01/12/2017 3:33 PM Tae Sharif [facility] Mental Status Date Assessment Result Facility 01-12-2017 Because of a physica l, mental, or emotional condition, do you have serious difficulty concentrating, remembering, or making decisions No 01/12/2017 3:33 PM Tae Sharif No [facility] Clinical Notes 01-12-2017 to 06-05-2024 Telephone Encounter - Noemí Jolley PA-C - 06/05/2024 12:14 PM EDTTelephone Encounter - Noemí Jolley PA-C - 06/05/2024 12:14 PM EDTTelephone Encounter - Briseyda Ewing - 05/02/2024 1:30 PM EST Note Date & Type Note Facility 06-05-2024 Telephone encounter Note Absolutely. I sent the refill to [facility] in [place]. Noemí Jolley PA-C [facility] 06-05-2024 Miscellaneous Notes Absolutely. I sent the refill to [facility] in [place]. Noemí Jolley PA-C documented in this encounter [facility] 05-03-2024 Telephone encounter Note Images from the original note were not included. Arya Rdz MD Cullen, Tiffany G, RN Hi Tiff - PET/CT is negative. Message left with this information on pt's voicemail Mila Briscoe RN [facility] Work Phone: 05-03-2024 Miscellaneous Notes Images from the original note were not included. Arya Rdz MD Cullen, Tiffany G, RN Hi Shawf - PET/CT is negative. Message left with this information on pt's voicemail Mila Briscoe RN Images from the original note were not included. documented in this encounter [facility] 05-02-2024 Telephone encounter Note Images from the original note were not included. [facility] 05-02-2024 Instructions Marina Castro - 05/02/2024 1:10 PM EST Mila Luis Felipe to call results of PET scan Proceed C8 Keytruda today RTC with me in 6 weeks for C9 [facility] same day documented in this encounter [facility] 05-02-2024 History of Present illness Narrative Images from the original note were not included. NAME: HermosilloDebby robertson [facility] NO.: [id number] DATE OF SERVICE: May 02, 2024 ([email or web address]) Some elements in this clinic note that are critical to medical decision making have been carefully reviewed and included from a prior clinic note dated: March 21, 2024 (Reba) Referring Provider: Stacy Adhikari MD Additional Clinicians involved in Debby Gann Hermosillo's care: DIAGNOSIS: 1. 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 Previously managed by Dr. Beaver 2. Recurrent Adenocarcinoma- Stage IV 07/2022, confirmed 11/2022- Adenocarcinoma- KRAS A146V, P53, PDL-1 100%, ALK, ROS-1, NTRK, Her-2 and RET fusions, BRAF negative. Guardant 360 08/2022: MICHAEL splice site SNV, JAYLIN ASSESSMENT: 58 year old female here for follow up. 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 06/2022 with enlarging TAM opacity has enlarged, PET scan confirms that the lesion is PET avid and does not detail any additional sites of disease. Patient was presented at the tumor board and repeat CT 07/2022 with increasing lingular and RLL lesion. She underwent a bronch and EBUS and the lingula and 4L node are both positive for Adenocarcinoma, RLL also adenocarcinoma and both lesions have similar molecular characteristics with KRAS A146V mutation and no other abnormalities and PDL-1 100%. PET with stage IV disease and MRI Brain negative. Started Single agent Pembro 01/04/2023. PET 06/[address] 09/2023 no progression , PET 01/2024 no progression, MRI brain 01/2024 with new right frontal lesion with edema and symptoms. S/P Gamma Knife on 02/19/2024. She did have PCI in 2018 when she had small cell lung cancer. She is finishing a Dexamethasone taper and her symptoms improving. PLAN: Mila Briscoe to call results of PET scan Proceed C8 Keytruda today RTC with me in 6 weeks for C9 [facility] same day HPI: CASE HISTORY: Reverse Chronological Order 04/30/2024 - PET/CT: Final reading in process 1. Since 01/12/2024, no evidence of FDG avid disease. 2. Posttreatment changes in the right lung. 02/19/2024 - GKS Right frontal lesion 01/26/2024 - MRI brain: Interval development of a 0.8 x 0.7 cm cortical/subcortical rim-enhancing lesion with mild surrounding vasogenic edema in the right frontal lobe since 04/27/2023, suggestive of intracranial metastasis. 01/12/2024 - PET/CT: PRIMARY DISEASE SITE: Stable treatment changes in the right upper lobe without hypermetabolic recurrence. JUAN ANTONIO DISEASE: No metabolically active regional lymphadenopathy. METASTATIC DISEASE: No metabolically active distant metastases. ADDITIONAL FINDINGS: Mild uptake in the musculature surrounding the right ischium, likely strain or trauma. 09/28/2023 - CT CAP: Chest: Stable appearance of posttreatment change/treated neoplasm in the right upper lobe. Within the posterior right lower lobe, there is an area of nodularity measuring 8 x 6 mm. This is new when compared to the prior chest CT from 10/31/2022 but is stable when compared to the PET/CT from 06/14/2023. This was not FDG avid on the prior PET/CT. This abuts a linear opacity. Therefore, it is possible that this representing nodular component of atelectasis. Would advise continued close imaging surveillance and attention to this region. Additionally, there are stable groundglass opacities in the right middle lobe which should undergo continued close imaging surveillance. No significant thoracic adenopathy. A/P: No evidence of metastatic disease in the abdomen or pelvis. 06/14/2023 - PET/CT: No FDG avid neoplastic process. 04/27/2023 - MRI Brain: No convincing evidence for metastatic disease Chronic, diffuse white matter changes are seen 03/01/2023 - PET/CT: HEAD and NECK: No evidence of focal uptake to suggest FDG avid neoplastic process.. CHEST: Status post resection of FDG avid nodules in the lingula and right lower lobe with residual inflammatory changes. Recommend follow-up with CT to rule out residual disease. ABDOMEN/PELVIS: No evidence of focal uptake to suggest FDG avid neoplastic process.. EXTREMITIES/SKELETON: No evidence of focal uptake to suggest FDG avid neoplastic process.. 01/04/2023-Current - Keytruda q 6 weeks 12/2022 - PET/CT: HEAD/NECK: No FDG avid neoplastic process. CHEST: Enlarging FDG avid lingular nodule, bronchoscopy proven adenocarcinoma FDG avid left mediastinal lymph nodes, likely metastatic Postoperative changes right lower lobe wedge resection. Uptake near the site of resection, likely related to posttherapy changes and healing. Attention on follow-up CT scan of the chest. Stable posttreatment changes within right upper lobe ABDOMEN/PELVIS: No FDG avid neoplastic process. BONES/EXTREMITIES: New focus of FDG uptake in right gluteal musculature, concerning for metastasis No suspicious FDG avid osseous lesion. 12/2022 - MRI Brain: No acute intracranial process is noted. No evidence of metastasis in the current study. 07/2022 - Bronch Lingula and 4L: A - TRANSBRONCHIAL FINE-NEEDLE ASPIRATION - LINGULA NODULE - Positive for malignant cells. - Adenocarcinoma. B - EBUS TRANSBRONCHIAL FINE NEEDLE ASPIRATE, LYMPH NODE - 4L - Positive for malignant cells. - Adenocarcinoma. 07/2022 - CT Chest: Few small groundglass and solid pulmonary nodules are noted. At least two of the solid nodules in the lingula and right lower lobe have increased in size since 06/23/2022 and are concerning for neoplastic/metastatic disease. No new or increasing intrathoracic lymphadenopathy is noted. 07/2022 - PET/CT: Neck: No suspicious hypermetabolic foci Chest: Hypermetabolic nodule in the left upper lobe suspicious for neoplasm. No hypermetabolic lymphadenopathy. Abdomen and pelvis: No evidence of FDG avid neoplastic process Skeleton: No hypermetabolic osseous lesions 06/2022 - MRI Brain: No evidence of metastatic disease No suspicious findings 06/2022 - CT Chest: New mild reticulonodular opacities in the right lower lobe most likely infectious/inflammatory in etiology. Superimposed neoplasm cannot be excluded. 8 mm left upper lobe nodular opacity increased in size since 03/31/22, worrisome for neoplasm. Other subcentimeter nodular opacities and groundglass opacities are stable. 03/2022 - CT CAP: Chest: Interval development of a new 5 mm nodule in the right lower lobe. This may be infectious/inflammatory or neoplastic in nature. Recommend continued attention to this area on follow-up exams. Stable appearance of 6 mm groundglass opacity in the right middle lobe. An additional 4 mm groundglass opacity more inferiorly in the right middle lobe appears slightly less conspicuous when compared to prior study. Stable bandlike and nodular consolidative opacity in the right upper lobe and right suprahilar region, in keeping with postradiation fibrosis. A/P: No evidence of metastatic disease in the abdomen or pelvis. Moderate biliary ductal dilation, similar in appearance to prior CT chest, but new when compared to prior PET/CT. No obstructing calculus or mass is visualized. Nonobstructive nephrolithiasis in the right kidney. 09/21/2021 - MRI Brain: 5mm focus of restricted diffusion in the left parietal lobe. An acute infarct should be considered. No enhancing mass to suggest metastatic disease to the brain. 08/2021 - CT Chest: Mild patchy airspace opacification within the lingula, favored to be infectious/inflammation. Continued attention on subsequent studies is suggested. Since 02/25/2021, unchanged groundglass opacities within the right middle lobe measuring up to 0.5 cm. 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 Unchanged moderate intrahepatic biliary ductal dilatation. 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 Possibly related to prior treatment for lung cancer. No acute infarct No enhancing mass to suggest metastatic disease to the brain 02/2021 - CT Chest: Right upper lobe post radiation change, increased since 08/07/20, now obscuring the previously described reticulonodular opacity. Other small subcentimeter groundglass opacities in the right lung, Stable. 08/12/2020 - CT Chest: No interval change since 01/17/2020. 1.3 x 0.7 cm right upper lobe nodular opacity, most likely the known primary neoplasm, stable Adjacent right upper lobe patchy opacities most likely related to post radiation change or other infectious/inflammatory etiologies, stable. Other small subcentimeter groundglass opacities in the right lung, stable. 01/20/2020 - CT Chest: Interval decrease in size of right upper lobe nodular opacity, now measuring 1.5 cm in size. Slight interval increase in surrounding groundglass and reticular opacities, likely on the basis of posttreatment change. No evidence of bulky intrathoracic lymphadenopathy. 07/18/2019 - PET/CT: NECK: NO FDG AVID NEOPLASTIC PROCESS.. CHEST: NO FDG AVID NEOPLASTIC PROCESS. 1.4 X 0.9 CM HYPOMETABOLIC RIGHT UPPER LOBE NODULE WITH ADJACENT PARENCHYMAL SCARRING LATERALLY, IMPROVED SINCE 01/09/2019. FINDINGS ARE COMPATIBLE WITH SATISFACTORY RESPONSE OF TREATED RIGHT UPPER LOBE NODULE POST CHEMORADIATION. 0.6 CM AND 0.4 CM FAINT RIGHT MIDDLE LOBE GROUNDGLASS ATTENUATION DENSITIES, STABLE SINCE 09/12/2017. ABDOMEN/PELVIS: NO FDG AVID NEOPLASTIC PROCESS. EXTREMITIES/SKELETON: NO SUSPICIOUS FDG AVID OSSEOUS LESION. 04/09/2018 - Discontinued Imfinzi per Dr. Beaver due to pancreatitis 01/16/2018-01/30/2024 - PCI whole brain 2500 cGy in [address] Carrero 03/24/2017-07/12/2017 - Concurrent carboplatin and etoposide (5 cycles) 03/24/2017-05/17/2017 - Concurrent radiation Updated Visit, May 02, 2024: Debby returns to continue Keytruda. She endorses mouth pain, worse in her lower jaw. Final reading of her PET/CT is in process but imaging appear stable from my perspective. She has not had any recent falls and headaches have improved since completing GKRS. Updated Visit, March 21, 2024: Finished GKRS in February and is off steroids Here with Noel. Feels pretty good and balance is improving with no syncope. Both arms have multiple ecchymoses, skin is thin. Still smoking. Weakness in proximal muscles - can't get up from off the ground but that is improving also. Declines PT referral. Updated Visit, February 28, 2024: Since her last visit she did undergo GKS on 02/19/24 to her right frontal lesion. She is finishing a steroid taper per NS team. She has not had any more episodes of passing out or getting lost. She fels better overall. She did also finish cipro for UTI. She is gaining weight and eating well on the dex. She is having constipation. No abdominal pain or vomiting Updated Visit, February 07, 2024: Debby returns for follow up. The patient rescheduled her MRI brain multiple times and it was finally done on 01/25 and showed a new right frontal lesion with some vasogenic edema. She is on dex 4 mg BID. She is scheduled to see GKNS team 02/14. She has had multiple falls and her family finds her laying on the floor and she doesn't remember how she got there. She also was driving her son to work and got lost and didn't know how to get home. She did have some diarrhea for 2-3 weeks liquid stools 4-5 times a day. It went away on its own. She is eating and drinking okay. She does have some vision changes. She is no longer driving. No pain. Updated Visit, January 12, 2024: Debby returns for a follow up. She has her MRI of the brain scheduled for 01/14. Final reading of today's PET/CT are in process - on my initial view, I do not see any cause for concern. For the past 1.5 months, she has not had the strength to get back up after bending over. She endorses difficulty driving in the dark - recommended she follow up with her tube coater. Updated Visit, December 27, 2023: Debyb returns for a follow up. She reports about 3 weeks ago, her found her asleep on the floor but she does not remember how she got there. Her elbows had wounds indicative of a fall - healed now. She complains of buttock pain, similar to a pain she had in the past. I will order a PET/CT and MRI of the brain to evaluate her symptoms. Her potassium is low on her labs today - she was prescribed a supplement. She says it caused abnormal sleeping habits and she discontinued use thinking it caused her fall. Her 4 children are her closest support system, she talks to them every day. Initial Visit, November 15, 2023: Transition of Care Debby Hermosillo presents today to transition her care following Dr. Adhikari's relocation. Doing well. Will need to re-scan in December Still smokes 4 cigs / day. Thyroid is starting to show hypothyroidism as an AE to Keytruda - will wait to correct with next lab test. - mother had thyroid cancer More tired than usual - especially in afternoon. October 03, 2023: Debby Hermosillo is a 58 year old year old female here for follow up. She is doing well and denies any rash, diarrhea and or SOB and or cough. She has had loss of appetite. REVIEW OF SYSTEMS Per HPI and otherwise negative by full review of organ systems. ECOG PERFORMANCE STATUS: 1 PHYSICAL EXAMINATION: Vitals: BP 163/80[recheck[ Pulse 106 Temp (Src) 97.1 (Temporal) Resp 18 Wt 91 lb 14.9 oz (41.7kg) SpO2 99% Body surface area is 1.33 meters squared. Exam limited to gross visualization where appropriate. Gen.: This is an age-appropriate patient in no acute distress. Head: Appears atraumatic with no visible lesions. Eyes: Pupils equally round and reactive to light, extraocular muscles are intact. Neck: Supple. Respiratory: Appears to be respiring comfortably. Neurologic: Nonfocal to gross visualization. Alert and oriented 3. Psychiatric: No evidence of inappropriate anxiety or depression. Skin: Visible areas of skin without rash, lesions, wounds or petechiae. ALLERGIES: ALLERGIES Allergen Reactions Penicillins Unknown MEDICATIONS: ondansetron (ZOFRAN) 8 mg tablet Take 1 tablet by mouth every 8 hours as needed for nausea/vomiting. benzonatate (TESSALON PERLE) 100 mg capsule take 1 capsule by mouth three times a day as needed for cough dexAMETHasone (DECADRON) 2 mg tablet Start the day after your Gamma Knife Procedure: Decadron (dexamethasone) Take 4 mg (2 tablets) daily for 3 days. Take 2 mg (1 tablet) daily for 3 days then Stop Decadron Patient should start on February 20, 2024. famotidine (PEPCID) 20 mg tablet Take 1 tablet by mouth once daily. furosemide (LASIX) 20 mg tablet TAKE 1 TABLET BY MOUTH EVERY DAY KLOR-CON M20 20 mEq tablet TAKE 1 TABLET BY MOUTH EVERY DAY folic acid 1 mg tablet take 1 tablet by mouth every day sucralfate (CARAFATE) 1 gram tablet take 1 tablet by mouth four times a day buprenorphine-naloxone (SUBOXONE) 8-2 mg film Dissolve under the tongue once daily. pantoprazole DR (PROTONIX) 40 mg tablet Take 1 tablet by mouth every 12 (twelve) hours. aspirin, enteric coated (ASPIRIN, ENTERIC COATED) 81 mg EC tablet Take 81 mg by mouth once daily. atorvastatin (LIPITOR) 40 mg tablet Take 40 mg by mouth once daily. NURTEC ODT 75 mg disintegrating tablet DISSOLVE 1 TABLET ON THE TONGUE ONCE A DAY AT ONSET OF MIGRAINE ACETAMINOPHEN (TYLENOL ORAL) Take by mouth. prochlorperazine (COMPAZINE) 10 mg tablet Take 1 tablet by mouth every 6 hours as needed. SUBOXONE 8-2 mg film Dissolve 1 Film under the tongue twice daily for 1 day. Do not start before November 23, 2022. LABORATORY VALUES: WBC (k/uL) Date Value 05/02/2024 5.62 RBC (m/uL) Date Value 05/02/2024 3.16 (L) Hemoglobin (g/dL) Date Value 05/02/2024 10.4 (L) Hematocrit (%) Date Value 05/02/2024 32.5 (L) MCV (fL) Date Value 05/02/2024 102.8 (H) MCH (pg) Date Value 05/02/2024 32.9 MCHC (g/dL) Date Value 05/02/2024 32.0 RDW-CV (%) Date Value 05/02/2024 14.0 Platelet Count (k/uL) Date Value 05/02/2024 196 MPV (fL) Date Value 05/02/2024 9.0 Glucose (mg/dL) Date Value 05/02/2024 136 (H) BUN (mg/dL) Date Value 05/02/2024 18 Creatinine (mg/dL) Date Value 05/02/2024 0.70 Sodium (mmol/L) Date Value 05/02/2024 136 Potassium (mmol/L) Date Value 05/02/2024 4.5 Chloride (mmol/L) Date Value 05/02/2024 104 CO2 (mmol/L) Date Value 05/02/2024 27 Protein, Total (g/dL) Date Value 05/02/2024 6.1 (L) Albumin (g/dL) Date Value 05/02/2024 3.6 (L) Calcium, Total (mg/dL) Date Value 05/02/2024 9.2 Alkaline Phosphatase (U/L) Date Value 05/02/2024 103 Bilirubin, Total (mg/dL) Date Value 05/02/2024 0.2 AST (U/L) Date Value 05/02/2024 13 ALT (U/L) Date Value 05/02/2024 <5 (L) DIAGNOSIS: (C34.00) Malignant neoplasm of hilus of lung, unspecified laterality (HCC) (primary encounter diagnosis) (C71.1) 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) (C34.91) Malignant neoplasm of right lung, unspecified part of lung (HCC) (C34.90, C79.51) 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 saw neurologist (Dr. Hearn- In [facility]); possible MS? 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 PAST SURGICAL HISTORY Procedure Laterality Date CARPAL TUNNEL CHOLECYSTECTOMY HX COLONOSCOPY HYSTERECTOMY HX Partial NOSE SURGERY HX FRACTURE PAST SURGICAL HISTORY OF CONE BIOPSY 1983 WEDGE RESECT LUNG Right 11/15/2022 VATS right lower lobe wedge resection, mediastinal lymph node sampling, intercostal nerve block Social History Tobacco Use Smoking status: Every Day Current packs/day: 1.50 Average packs/day: 1.5 packs/day for 45.0 years (67.5 ttl pk-yrs) Types: Cigarettes Smokeless tobacco: Never Tobacco comments: 4 cigs per day Vaping Use Vaping status: Never Used Substance Use Topics Alcohol use: No Drug use: Yes Frequency: 1.0 times per week Types: Marijuana Comment: previous marijuana FAMILY HISTORY Problem Relation Age of Onset Arthritis Mother Diabetes Mother Cancer Mother bowel, thyroid Hypertension Father other (cabg) Father Cancer Brother colon Cancer Brother colon other (leukemia) Brother Diabetes Sister Diabetes Sister Diabetes Sister I spent a total of 30 minutes on the date of service which included preparing to see the patient, [id number] patient care, completing clinical documentation, performing a medically appropriate examination, counseling and educating the patient/family/caregiver, ordering medications, tests, or procedures, independently interpreting results (not separately reported), communicating results to the patient/family/caregiver, and care coordination (not separately reported). Arya Rdz MD, CPE Hematology [facility] Oncology Services Provided at: [place], [place] Scribe Attestation: This note was scribed by Marina Castro on May 02, 2024 under the direction and supervision of Dr. Arya Rdz. I attest that all of the information documented is correct to the best of my knowledge. Provider Attestation: I, Arya Rdz MD, attest that all information documented by the above scribe is correct, and was supervised by me and under my direction. CC: Milton Madison MD documented in this encounter [facility] 05-02-2024 Note [facility] 04-30-2024 History of Present illness Narrative RADIOLOGY SERVICE PROGRESS NOTE SERVICE DATE: 04/30/2024 SERVICE TIME: 12:11 PM PATIENT IDENTITY VERIFICATION COMPLETED USING TWO (2) STANDARD IDENTIFIERS: Name and Date of confirmed by patient verbally POST EXAM PIV STATUS: Discontinued PROCEDURE TYPE: NM INJECT: PET/CT BODY SCAN. 6.4 mCi F18 FDG. No other medications given.. ADMINISTRATION TIME: 1124 PATIENT DISCHARGED TO: Ambulatory patient, left [place] department area. Is this a therapy: No A Diagnostic radioactive procedure has taken place, with no further precautions necessary other than routine body substance precautions. More information regarding radiation safety can be found using this link: [email or web address] SIGNATURE: Becky Yovanno, RT(R) PATIENT NAME: Debby Hermosillo DATE: April 30, 2024 TIME: 12:11 PM PAGER/CONTACT #: Radiology Service Progress Note DATE OF SERVICE: April 30, 2024 TIME: 12:46 PM PATIENT WEIGHT: 91LBS PATIENT IDENTITY VERIFICATION COMPLETED USING TWO (2) STANDARD IDENTIFIERS: Name and Date of confirmed by patient verbally. FALL SCREENING: Has the patient had 2 falls in the last year or 1 fall with injury or currently using an Ambulatory Assistive Device (Walker, Cane, Wheelchair, Crutches, etc.)? No PATIENT GENDER DATA: Assigned female at . status: : No status: NO. ALLERGIES: Reviewed and unchanged CONTRAST ALLERGY: No EXAM: CT -CONTRAST INDUCED NEPHROPATHY RISK FACTORS: Patient age > 60 years CREATININE: Creatinine Date Value Ref Range Status 03/21/2024 0.65 0.58 - 0.96 mg/dL Final 02/28/2024 0.52 (L) 0.58 - 0.96 mg/dL Final 02/07/2024 0.57 (L) 0.58 - 0.96 mg/dL Final Estimated Glomerular Filtration Rate Date Value Ref Range Status 03/21/2024 101 >=60 mL/min/1.73m Final Comment: Estimated Glomerular Filtration Rate (eGFR) is calculated using the 2020 CKD-EPI creatinine equation. This equation utilizes serum creatinine, sex, and age as parameters. The creatinine assay has traceable calibration to isotope dilution-mass spectrometry. Refer to KDIGO guidelines for clinical interpretation. In patients with unstable renal function, e.g. those with acute kidney injury, the eGFR may not accurately reflect actual GFR. eGFR- Date Value Ref Range Status 02/11/2021 52 Final P.O.C.T. RESULTS: POC done: Yes, See Lab Tab April 30, 2024 TREATMENT: N/A IV SITE: Ambulatory: A peripheral IV was started in the Left antecubital site with a Angio cath: 22 gauge. IV SITE APPEARANCE: Clean,Dry and Intact SIGNATURE: Yue Alcocer RN PATIENT NAME: Debby Hermosillo DATE: April 30, 2024 TIME: 12:46 PM documented in this encounter [facility] 04-30-2024 Note [facility] 04-30-2024 Note [facility] 03-29-2024 Telephone encounter Note Prefer she gets a urinalysis and culture before starting antibiotic. Orders placed. She can get it at [facility] or here. Will send in cipro to [facility] but advise her to get urine sample first. Noemí Jolley PA-C [facility] 03-29-2024 Miscellaneous Notes Prefer she gets a urinalysis and culture before starting antibiotic. Orders placed. She can get it at [facility] or here. Will send in cipro to [facility] but advise her to get urine sample first. Noemí Jolley PA-C documented in this encounter [facility] 03-25-2024 Telephone encounter Note The following approved medication requests have been transmitted electronically. Requested Prescriptions Signed Prescriptions Disp Refills ondansetron (ZOFRAN) 8 mg tablet 90 tablet 0 Sig: Take 1 tablet by mouth every 8 hours as needed for nausea/vomiting. Authorizing Provider: WENDY MAYER prochlorperazine (COMPAZINE) 10 mg tablet 100 tablet 0 Sig: Take 1 tablet by mouth every 6 hours as needed. Authorizing Provider: WENDY MAYER Please notify I increased the dispense dose. Resend if I need to change it. Wendy Cabello APRN.[employer] [facility] 03-25-2024 Miscellaneous Notes The following approved medication requests have been transmitted electronically. Requested Prescriptions Signed Prescriptions Disp Refills ondansetron (ZOFRAN) 8 mg tablet 90 tablet 0 Sig: Take 1 tablet by mouth every 8 hours as needed for nausea/vomiting. Authorizing Provider: WENDY MAYER prochlorperazine (COMPAZINE) 10 mg tablet 100 tablet 0 Sig: Take 1 tablet by mouth every 6 hours as needed. Authorizing Provider: WENDY MAYER Please notify I increased the dispense dose. Resend if I need to change it. Thanks, Wendy Mayer APRN.[employer] Pt requesting refill of both zofran and compazine. She is out of both. Pended for review and sign Angella Malloy RN documented in this encounter [facility] 03-25-2024 Telephone encounter Note Pt requesting refill of both zofran and compazine. She is out of both. Pended for review and sign Angella Malloy RN [facility] 03-21-2024 Instructions Arya Rdz MD - 03/21/2024 1:29 PM EST Keytruda today and in 6 weeks with labs same day. PET/CT in 5 weeks RTC with me in 6 weeks to review scans and treat after. documented in this encounter [facility] 03-21-2024 Note [facility] 03-21-2024 History of Present illness Narrative Patient would like you to look at her arms, she has yung on both of them (looks similar to bruises-she is not on blood thinners). Jessie Dill MA Images from the original note were not included. NAME: Debby Hermosillo CLINIC NO.: [id number] DATE OF SERVICE: March 21, 2024 ([facility]) Some elements in this clinic note that are critical to medical decision making have been carefully reviewed and included from a prior clinic note dated: January 12, 2024 ([facility]) Referring Provider: Stacy Adhikari MD Additional Clinicians involved in Debby Hermosillo's care: DIAGNOSIS: 1. 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 Previously managed by Dr. Beaver 2. Recurrent Adenocarcinoma- Stage IV 07/2022, confirmed 11/2022- Adenocarcinoma- KRAS A146V, P53, PDL-1 100%, ALK, ROS-1, NTRK, Her-2 and RET fusions, BRAF negative. Guardant 360 08/2022: MICHAEL splice site SNV, JAYLIN ASSESSMENT: 58 year old female here for follow up. 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 06/2022 with enlarging TAM opacity has enlarged, PET scan confirms that the lesion is PET avid and does not detail any additional sites of disease. Patient was presented at the tumor board and repeat CT 07/2022 with increasing lingular and RLL lesion. She underwent a bronch and EBUS and the lingula and 4L node are both positive for Adenocarcinoma, RLL also adenocarcinoma and both lesions have similar molecular characteristics with KRAS A146V mutation and no other abnormalities and PDL-1 100%. PET with stage IV disease and MRI Brain negative. Started Single agent Pembro 01/04/2023. PET 06/[address] 09/2023 no progression , PET 01/2024 no progression, MRI brain 01/2024 with new right frontal lesion with edema and symptoms. S/P Gamma Knife on 02/19/2024. She did have PCI in 2018 when she had small cell lung cancer. She is finishing a Dexamethasone taper and her symptoms improving. PLAN: Keytruda today and in 6 weeks with labs same day. PET/CT in 5 weeks RTC with me in 6 weeks to review scans and treat after. HPI: CASE HISTORY: Reverse Chronological Order 02/19/2024 - GKS Right frontal lesion 01/26/2024 - MRI brain: Interval development of a 0.8 x 0.7 cm cortical/subcortical rim-enhancing lesion with mild surrounding vasogenic edema in the right frontal lobe since 04/27/2023, suggestive of intracranial metastasis. 01/12/2024 - PET/CT: PRIMARY DISEASE SITE: Stable treatment changes in the right upper lobe without hypermetabolic recurrence. JUAN ANTONIO DISEASE: No metabolically active regional lymphadenopathy. METASTATIC DISEASE: No metabolically active distant metastases. ADDITIONAL FINDINGS: Mild uptake in the musculature surrounding the right ischium, likely strain or trauma. 09/28/2023 - CT CAP: Chest: Stable appearance of posttreatment change/treated neoplasm in the right upper lobe. Within the posterior right lower lobe, there is an area of nodularity measuring 8 x 6 mm. This is new when compared to the prior chest CT from 10/31/2022 but is stable when compared to the PET/CT from 06/14/2023. This was not FDG avid on the prior PET/CT. This abuts a linear opacity. Therefore, it is possible that this representing nodular component of atelectasis. Would advise continued close imaging surveillance and attention to this region. Additionally, there are stable groundglass opacities in the right middle lobe which should undergo continued close imaging surveillance. No significant thoracic adenopathy. A/P: No evidence of metastatic disease in the abdomen or pelvis. 06/14/2023 - PET/CT: No FDG avid neoplastic process. 04/27/2023 - MRI Brain: No convincing evidence for metastatic disease Chronic, diffuse white matter changes are seen 03/01/2023 - PET/CT: HEAD and NECK: No evidence of focal uptake to suggest FDG avid neoplastic process.. CHEST: Status post resection of FDG avid nodules in the lingula and right lower lobe with residual inflammatory changes. Recommend follow-up with CT to rule out residual disease. ABDOMEN/PELVIS: No evidence of focal uptake to suggest FDG avid neoplastic process.. EXTREMITIES/SKELETON: No evidence of focal uptake to suggest FDG avid neoplastic process.. 01/04/2023-Current - Keytruda q 6 weeks 12/2022 - PET/CT: HEAD/NECK: No FDG avid neoplastic process. CHEST: Enlarging FDG avid lingular nodule, bronchoscopy proven adenocarcinoma FDG avid left mediastinal lymph nodes, likely metastatic Postoperative changes right lower lobe wedge resection. Uptake near the site of resection, likely related to posttherapy changes and healing. Attention on follow-up CT scan of the chest. Stable posttreatment changes within right upper lobe ABDOMEN/PELVIS: No FDG avid neoplastic process. BONES/EXTREMITIES: New focus of FDG uptake in right gluteal musculature, concerning for metastasis No suspicious FDG avid osseous lesion. 12/2022 - MRI Brain: No acute intracranial process is noted. No evidence of metastasis in the current study. 07/2022 - Bronch Lingula and 4L: A - TRANSBRONCHIAL FINE-NEEDLE ASPIRATION - LINGULA NODULE - Positive for malignant cells. - Adenocarcinoma. B - EBUS TRANSBRONCHIAL FINE NEEDLE ASPIRATE, LYMPH NODE - 4L - Positive for malignant cells. - Adenocarcinoma. 07/2022 - CT Chest: Few small groundglass and solid pulmonary nodules are noted. At least two of the solid nodules in the lingula and right lower lobe have increased in size since 06/23/2022 and are concerning for neoplastic/metastatic disease. No new or increasing intrathoracic lymphadenopathy is noted. 07/2022 - PET/CT: Neck: No suspicious hypermetabolic foci Chest: Hypermetabolic nodule in the left upper lobe suspicious for neoplasm. No hypermetabolic lymphadenopathy. Abdomen and pelvis: No evidence of FDG avid neoplastic process Skeleton: No hypermetabolic osseous lesions 06/2022 - MRI Brain: No evidence of metastatic disease No suspicious findings 06/2022 - CT Chest: New mild reticulonodular opacities in the right lower lobe most likely infectious/inflammatory in etiology. Superimposed neoplasm cannot be excluded. 8 mm left upper lobe nodular opacity increased in size since 03/31/22, worrisome for neoplasm. Other subcentimeter nodular opacities and groundglass opacities are stable. 03/2022 - CT CAP: Chest: Interval development of a new 5 mm nodule in the right lower lobe. This may be infectious/inflammatory or neoplastic in nature. Recommend continued attention to this area on follow-up exams. Stable appearance of 6 mm groundglass opacity in the right middle lobe. An additional 4 mm groundglass opacity more inferiorly in the right middle lobe appears slightly less conspicuous when compared to prior study. Stable bandlike and nodular consolidative opacity in the right upper lobe and right suprahilar region, in keeping with postradiation fibrosis. A/P: No evidence of metastatic disease in the abdomen or pelvis. Moderate biliary ductal dilation, similar in appearance to prior CT chest, but new when compared to prior PET/CT. No obstructing calculus or mass is visualized. Nonobstructive nephrolithiasis in the right kidney. 09/21/2021 - MRI Brain: 5mm focus of restricted diffusion in the left parietal lobe. An acute infarct should be considered. No enhancing mass to suggest metastatic disease to the brain. 08/2021 - CT Chest: Mild patchy airspace opacification within the lingula, favored to be infectious/inflammation. Continued attention on subsequent studies is suggested. Since 02/25/2021, unchanged groundglass opacities within the right middle lobe measuring up to 0.5 cm. 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 Unchanged moderate intrahepatic biliary ductal dilatation. 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 Possibly related to prior treatment for lung cancer. No acute infarct No enhancing mass to suggest metastatic disease to the brain 02/2021 - CT Chest: Right upper lobe post radiation change, increased since 08/07/20, now obscuring the previously described reticulonodular opacity. Other small subcentimeter groundglass opacities in the right lung, Stable. 08/12/2020 - CT Chest: No interval change since 01/17/2020. 1.3 x 0.7 cm right upper lobe nodular opacity, most likely the known primary neoplasm, stable Adjacent right upper lobe patchy opacities most likely related to post radiation change or other infectious/inflammatory etiologies, stable. Other small subcentimeter groundglass opacities in the right lung, stable. 01/20/2020 - CT Chest: Interval decrease in size of right upper lobe nodular opacity, now measuring 1.5 cm in size. Slight interval increase in surrounding groundglass and reticular opacities, likely on the basis of posttreatment change. No evidence of bulky intrathoracic lymphadenopathy. 07/18/2019 - PET/CT: NECK: NO FDG AVID NEOPLASTIC PROCESS.. CHEST: NO FDG AVID NEOPLASTIC PROCESS. 1.4 X 0.9 CM HYPOMETABOLIC RIGHT UPPER LOBE NODULE WITH ADJACENT PARENCHYMAL SCARRING LATERALLY, IMPROVED SINCE 01/09/2019. FINDINGS ARE COMPATIBLE WITH SATISFACTORY RESPONSE OF TREATED RIGHT UPPER LOBE NODULE POST CHEMORADIATION. 0.6 CM AND 0.4 CM FAINT RIGHT MIDDLE LOBE GROUNDGLASS ATTENUATION DENSITIES, STABLE SINCE 09/12/2017. ABDOMEN/PELVIS: NO FDG AVID NEOPLASTIC PROCESS. EXTREMITIES/SKELETON: NO SUSPICIOUS FDG AVID OSSEOUS LESION. 04/09/2018 - Discontinued Imfinzi per Dr. Beaver due to pancreatitis 01/16/2018-01/30/2024 - PCI whole brain 2500 cGy in [address] Carrero 03/24/2017-07/12/2017 - Concurrent carboplatin and etoposide (5 cycles) 03/24/2017-05/17/2017 - Concurrent radiation Updated Visit, March 21, 2024: Finished GKRS in February and is off steroids Here with Noel. Feels pretty good and balance is improving with no syncope. Both arms have multiple ecchymoses, skin is thin. Still smoking. Weakness in proximal muscles - can't get up from off the ground but that is improving also. Declines PT referral. Updated Visit, February 28, 2024: Since her last visit she did undergo GKS on 02/19/24 to her right frontal lesion. She is finishing a steroid taper per NS team. She has not had any more episodes of passing out or getting lost. She fels better overall. She did also finish cipro for UTI. She is gaining weight and eating well on the dex. She is having constipation. No abdominal pain or vomiting Updated Visit, February 07, 2024: Debby returns for follow up. The patient rescheduled her MRI brain multiple times and it was finally done on 01/25 and showed a new right frontal lesion with some vasogenic edema. She is on dex 4 mg BID. She is scheduled to see GKNS team 02/14. She has had multiple falls and her family finds her laying on the floor and she doesn't remember how she got there. She also was driving her son to work and got lost and didn't know how to get home. She did have some diarrhea for 2-3 weeks liquid stools 4-5 times a day. It went away on its own. She is eating and drinking okay. She does have some vision changes. She is no longer driving. No pain. Updated Visit, January 12, 2024: Debby returns for a follow up. She has her MRI of the brain scheduled for 01/14. Final reading of today's PET/CT are in process - on my initial view, I do not see any cause for concern. For the past 1.5 months, she has not had the strength to get back up after bending over. She endorses difficulty driving in the dark - recommended she follow up with her tube coater. Updated Visit, December 27, 2023: Debby returns for a follow up. She reports about 3 weeks ago, her found her asleep on the floor but she does not remember how she got there. Her elbows had wounds indicative of a fall - healed now. She complains of buttock pain, similar to a pain she had in the past. I will order a PET/CT and MRI of the brain to evaluate her symptoms. Her potassium is low on her labs today - she was prescribed a supplement. She says it caused abnormal sleeping habits and she discontinued use thinking it caused her fall. Her 4 children are her closest support system, she talks to them every day. Initial Visit, November 15, 2023: Transition of Care Debby Hermosillo presents today to transition her care as her previous provider left the practice. Doing well. Will need to re-scan in December Still smokes 4 cigs / day. Thyroid is starting to show hypothyroidism as an AE to Keytruda - will wait to correct with next lab test. - mother had thyroid cancer More tired than usual - especially in afternoon. October 03, 2023: Debby Hermosillo is a 58 year old year old female here for follow up. She is doing well and denies any rash, diarrhea and or SOB and or cough. She has had loss of appetite. REVIEW OF SYSTEMS Per HPI and otherwise negative by full review of organ systems. ECOG PERFORMANCE STATUS: 1 PHYSICAL EXAMINATION: Vitals: BP 157/80 Pulse 118 Temp (Src) 97.5 (Temporal) Resp 16 Ht 4' 11.843 (1.52m) Wt 91 lb 7.9 oz (41.5kg) SpO2 98% BMI 17.96 kg/(m^2). Body surface area is 1.32 meters squared. Exam limited to gross visualization where appropriate. Gen.: This is an age-appropriate patient in no acute distress. Head: Appears atraumatic with no visible lesions. Eyes: Pupils equally round and reactive to light, extraocular muscles are intact. Neck: Supple. Respiratory: Appears to be respiring comfortably. Neurologic: Nonfocal to gross visualization. Alert and oriented 3. Psychiatric: No evidence of inappropriate anxiety or depression. Skin: Visible areas of skin without rash, lesions, wounds or petechiae. ALLERGIES: ALLERGIES Allergen Reactions Penicillins Unknown MEDICATIONS: benzonatate (TESSALON PERLE) 100 mg capsule take 1 capsule by mouth three times a day as needed for cough dexAMETHasone (DECADRON) 2 mg tablet Start the day after your Gamma Knife Procedure: Decadron (dexamethasone) Take 4 mg (2 tablets) daily for 3 days. Take 2 mg (1 tablet) daily for 3 days then Stop Decadron Patient should start on February 20, 2024. famotidine (PEPCID) 20 mg tablet Take 1 tablet by mouth once daily. ondansetron (ZOFRAN) 8 mg tablet Take 1 tablet by mouth every 8 hours as needed for nausea/vomiting. furosemide (LASIX) 20 mg tablet TAKE 1 TABLET BY MOUTH EVERY DAY KLOR-CON M20 20 mEq tablet TAKE 1 TABLET BY MOUTH EVERY DAY folic acid 1 mg tablet take 1 tablet by mouth every day sucralfate (CARAFATE) 1 gram tablet take 1 tablet by mouth four times a day buprenorphine-naloxone (SUBOXONE) 8-2 mg film Dissolve under the tongue once daily. pantoprazole DR (PROTONIX) 40 mg tablet Take 1 tablet by mouth every 12 (twelve) hours. aspirin, enteric coated (ASPIRIN, ENTERIC COATED) 81 mg EC tablet Take 81 mg by mouth once daily. atorvastatin (LIPITOR) 40 mg tablet Take 40 mg by mouth once daily. NURTEC ODT 75 mg disintegrating tablet DISSOLVE 1 TABLET ON THE TONGUE ONCE A DAY AT ONSET OF MIGRAINE ACETAMINOPHEN (TYLENOL ORAL) Take by mouth. prochlorperazine (COMPAZINE) 10 mg tablet Take 1 tablet by mouth every 6 hours as needed. SUBOXONE 8-2 mg film Dissolve 1 Film under the tongue twice daily for 1 day. Do not start before November 23, 2022. LABORATORY VALUES: WBC (k/uL) Date Value 03/21/2024 7.66 RBC (m/uL) Date Value 03/21/2024 2.78 (L) Hemoglobin (g/dL) Date Value 03/21/2024 9.9 (L) Hematocrit (%) Date Value 03/21/2024 31.4 (L) MCV (fL) Date Value 03/21/2024 112.9 (H) MCH (pg) Date Value 03/21/2024 35.6 (H) MCHC (g/dL) Date Value 03/21/2024 31.5 RDW-CV (%) Date Value 03/21/2024 14.5 Platelet Count (k/uL) Date Value 03/21/2024 177 MPV (fL) Date Value 03/21/2024 9.3 Glucose (mg/dL) Date Value 03/21/2024 152 (H) BUN (mg/dL) Date Value 03/21/2024 18 Creatinine (mg/dL) Date Value 03/21/2024 0.65 Sodium (mmol/L) Date Value 03/21/2024 140 Potassium (mmol/L) Date Value 03/21/2024 4.0 Chloride (mmol/L) Date Value 03/21/2024 106 CO2 (mmol/L) Date Value 03/21/2024 24 Protein, Total (g/dL) Date Value 03/21/2024 6.1 (L) Albumin (g/dL) Date Value 03/21/2024 3.7 (L) Calcium, Total (mg/dL) Date Value 03/21/2024 9.3 Alkaline Phosphatase (U/L) Date Value 03/21/2024 119 Bilirubin, Total (mg/dL) Date Value 03/21/2024 <0.2 (L) AST (U/L) Date Value 03/21/2024 11 (L) ALT (U/L) Date Value 03/21/2024 7 DIAGNOSIS: (C71.1) 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) (primary encounter diagnosis) Plan: NM PET/CT SKULL-THIGH SUBSEQUENT (C34.91) Malignant neoplasm of right lung, unspecified part of lung (HCC) Plan: NM PET/CT SKULL-THIGH SUBSEQUENT (C34.90, C79.51) 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) Plan: NM PET/CT SKULL-THIGH SUBSEQUENT (C34.00) Malignant neoplasm of hilus of lung, unspecified laterality (HCC) Plan: NM PET/CT SKULL-THIGH SUBSEQUENT PAST MEDICAL HISTORY Diagnosis Date Acute, but ill-defined, cerebrovascular disease 10/2021 Adenocarcinoma of left lung (HCC) 08/10/2022 4L and Lingula Arthritis Asthma Back pain chronic Carpal tunnel syndrome, bilateral s/p repair - 2016 Current smoker DDD (degenerative disc disease), lumbar GERD (gastroesophageal reflux disease) Kidney stones Malignant neoplasm of lower lobe of right lung (HCC) 11/15/2022 Neck pain Neuropathy unclear origin- 6 months? saw neurologist (Dr. Hearn- In [facility]); possible MS? 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 PAST SURGICAL HISTORY Procedure Laterality Date CARPAL TUNNEL CHOLECYSTECTOMY HX COLONOSCOPY HYSTERECTOMY HX Partial NOSE SURGERY HX FRACTURE PAST SURGICAL HISTORY OF CONE BIOPSY 1983 WEDGE RESECT LUNG Right 11/15/2022 VATS right lower lobe wedge resection, mediastinal lymph node sampling, intercostal nerve block Social History Tobacco Use Smoking status: Every Day Current packs/day: 1.50 Average packs/day: 1.5 packs/day for 45.0 years (67.5 ttl pk-yrs) Types: Cigarettes Smokeless tobacco: Never Tobacco comments: 4 cigs per day Vaping Use Vaping status: Never Used Substance Use Topics Alcohol use: No Drug use: Yes Frequency: 1.0 times per week Types: Marijuana Comment: previous marijuana FAMILY HISTORY Problem Relation Age of Onset Arthritis Mother Diabetes Mother Cancer Mother bowel, thyroid Hypertension Father other (cabg) Father Cancer Brother colon Cancer Brother colon other (leukemia) Brother Diabetes Sister Diabetes Sister Diabetes Sister I spent a total of 30 minutes on the date of service which included preparing to see the patient, [id number] patient care, completing clinical documentation, performing a medically appropriate examination, counseling and educating the patient/family/caregiver, ordering medications, tests, or procedures, independently interpreting results (not separately reported), communicating results to the patient/family/caregiver, and care coordination (not separately reported). Arya Rdz MD, CPE Hematology and Oncology Services Provided at: [place], [place] CC: Milton Madison MD documented in this encounter [facility] 03-21-2024 Note [facility] 03-14-2024 History of Present illness Narrative Images from the original note were not included. Chief Complaint Patient presents with Stroke Migraine Subjective Debby Hermosillo, 58 y.o., female Patient presents today for a follow up for history of stroke and migraines. Last seen here on 12/21/22. Since last visit here she has been diagnosed with brain metastasis and is status post gamma knife radiosurgery in February. Reports that migraines have increased since last seen. Admits to unilateral pain mostly on the right with accompanying light and sound sensitivity. Denies any nausea or vomiting. States she has been having headaches/migraines 15-20 days per month. She states that Nurtec was previously effective but admits to being out of this for several months. Admits to following with oncology and states she is on Keytruda infusions every 6 weeks. States she has a follow up with oncology later this month, unsure of her follow up with neurosurgery. Denies any symptoms to suggest stroke recurrence, continues on Atorvastatin and aspirin. Denies any other concerns today. Review of Systems Constitutional: Negative for appetite change, fatigue and fever. Eyes: Negative for pain and visual disturbance. Respiratory: Negative for cough, shortness of breath and wheezing. Cardiovascular: Negative for chest pain, palpitations and leg swelling. Gastrointestinal: Negative for abdominal pain, constipation, diarrhea and nausea. Musculoskeletal: Negative for arthralgias, gait problem and myalgias. Neurological: Positive for headaches. Negative for dizziness, tremors and numbness. Past Medical History: Diagnosis Date Arthritis Asthma (CMS/HCC) Back pain CTS (carpal tunnel syndrome) CVA (cerebral vascular accident) (CMS/HCC) GERD (gastroesophageal reflux disease) Kidney stone Lung cancer, primary, with metastasis from lung to other site (CMS/HCC) brain Neck pain Neuropathy Osteoporosis (CMS/HCC) Pneumonia Recurrent UTI Smoker Past Surgical History: Procedure Laterality Date CARPAL TUNNEL RELEASE Bilateral CHOLECYSTECTOMY COLONOSCOPY HYSTERECTOMY LUNG CANCER SURGERY NOSE SURGERY Family History Problem Relation Name Age of Onset Diabetes Mother Arthritis Mother Cancer Mother Hypertension Father Diabetes Sister Cancer Brother Social History Tobacco Use Smoking status: Every Day Types: Cigarettes Smokeless tobacco: Never Substance Use Topics Alcohol use: Not on file Allergies: Penicillins Vitals: 03/14/24 1300 BP: 144/83 Pulse: 87 There is no height or weight on file to calculate BMI. weight: 93 lb Neurologic exam: Mental status: Well nourished, well developed and in no acute distress. Grossly oriented to person, place and time. Recent and remote memory are intact. Language is fluent without aphasia. Attention and concentration are normal. Fund of knowledge is appropriate for level of education. Cranial nerves: CN II: Visual acuity is normal. Visual manning full to confrontation. CN III, IV, : pupils equal round and reactive to light. Extraocular movements intact. No ptosis present. CN V: Facial sensation is normal. CN VII: Full and symmetric facial movement. CN VIII: Hearing is intact. CN IX and X: Palate elevates symmetrically. CN XI: Shoulder shrug is normal bilaterally. CN XII: Tongue is midline without atrophy or fasciculation. Motor: RUE Strength deltoid, , biceps , triceps , wrist extensors , wrist flexor , life skills trainer strength 5/5. LUE Strength deltoid , biceps , triceps , wrist extensors , wrist flexor , life skills trainer strength 5/5. RLE Strength illopsoas, quadriceps, tibialis anterior, and gastrocnemius strength 5/5. LLE Strength illopsoas, quadriceps, tibialis anterior, and gastrocnemius strength 5/5. Normal tone x4 extremities. Bulk is normal. Sensory: Sensation is intact to light touch throughout distal extremities. Reflexes: RUE biceps reflex 2+ brachioradialis reflex 2+ . LUE biceps reflex 2+ brachioradialis reflex 2+ . RLE knee reflex 2+ . LLE knee reflex 2+ . Craft's sign negative. Coordination: [id number] testing is normal Rapid alternating movements are normal Gait: Normal Review and summary of old records: [facility] note dated 02/19/2024: Admitting diagnosis secondary malignant neoplasm of the brain. Procedure performed gamma nice head frame placement. MRI of the brain with contrast on 02/19/2024: 7 mm enhancing parenchymal metastasis in the right anterior parasagittal frontal lobe, unchanged since 01/26/2024: No extra-axial collection. No midline shift. MRI of the brain with without contrast at [facility] on 01/26/2024: There is no acute infarct, midline shift or abnormal extra-axial fluid collections. There is a 0.8 x 0.7 cm cortical / subcortical rim enhancing rounded lesion with restricted diffusion in the right frontal lobe, new since 04/27/2023, suggestive of intracranial metastasis. Stable nonspecific supratentorial and central pontine white matter changes, likely relates to combination of posttreatment related to change and small-vessel disease, mild to moderate cerebral atrophy. MRI of the brain on 12/19/22: No acute intracranial process. No evidence of metastasis. ECHO at [facility] on 11/30/21: no thrombus vegetation or masses seen. CTA head and neck at [facility] on 11/30/21: there is subtle cortically based hypoattenuation in the left occipital lobe which may be secondary to beam hardening artifact or may represent infarct seen on previous MRI. Chronic microvascular ischemic changes are noted. No evidence of focal stenosis, aneurysmal dilatation, dissection or occlusion. Labs on 11/10/21: Cholesterol 250 (H), Triglycerides 204 (H), LDL 158.2 (H) MRI of the brain with and without contrast on 09/21/21 mm focus of restricted diffusion in the left parietal lobe. An acute infarct should be considered. No metastatic disease identified. MRI of the brain with and without contrast on 02/15/21: Moderate white matter signal abnormality suspicious for sequelae of treatment for lung cancer. Assessment/Plan Diagnoses and all orders for this visit: Ischemic stroke (CMS/HCC) The patient has evidence of an ischemic infarct on MRI imaging of the brain in 2021. She has multiple stroke risk factors inclusive of tobacco abuse and a history of lung cancer. She was not initially on any antiplatelet or statin medication but we have since started her on them. Clinically, she does not seem to have much symptomatology or exam findings related to the infarct. ECHO showed no mass, vegetation, or thrombus. CTA head and neck showed no focal stenosis, aneurysmal dilatation, dissection or occlusion. LDL was high (158.2). Repeat MRI brain in nov 2022 did NOT show any new stroke or evidence of mets PLAN: - Continue atorvastatin (currently managed by PCP) - Continue aspirin 81 mg daily - Signs and symptoms of stroke were discussed in detail and the patient was advised to seek emergent evaluation in the ED should any such signs and symptoms develop. The patient verbalized understanding. - Smoking cessation was again discussed (She states she is down to 4 per day from a pack and a half). Patient aware that this is a stroke risk factor Malignant neoplasm of lung, unspecified laterality, unspecified part of lung (CMS/HCC) Patient has lung cancer and has undergone multiple treatments for this. Certainly this poses an additional risk for stroke. Although brain MRI in 2022 did not show evidence of metastasis it seems this has now been diagnosed. The patient is now status post Gamma Knife Radiosurgery. PLAN: - Continue follow up with [facility] and [facility] Tobacco use Stroke risk factor. Cessation was again discussed. Episodic migraine (CMS/HCC) Patient has a long standing history of migraine starting in her 30s. Previously getting about 1-2 per month of which were amenable to Nurtec. However the patient states she has been out of this and admits to increase in frequency. I do have concern that increase in symptoms may be related to brain mets and the patient recently underwent Gamma Knife Radiosurgery. PLAN - I have recommended the patient reach out to both oncology and neurosurgery regarding her increase in headache frequency and she verbalized understanding. - Will attempt to increase Nurtec 75 mg to every other day to attempt to better control the patients symptoms. Samples provided today. - AVOID triptans due to CV risk factors - Recommended adequate hydration, sleep hygiene, regular exercise as tolerated and avoidance of triggers. 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 Follow up with neurosurgery and oncology as per their recommendations. See above. Follow up in 1-2 months or sooner if symptoms worsen, fail to improve, or should a new neurological concern arise. Pt has been fully educated on their diagnosis, treatment options, follow up plan, and return instructions documented in this encounter [facility] 02-28-2024 Note [facility] 02-28-2024 History of Present illness Narrative Images from the original note were not included. NAME: Debby Hermosillo CLINIC NO.: [id number] DATE OF SERVICE: January 12, 2024 (nadine) Some elements in this clinic note that are critical to medical decision making have been carefully reviewed and included from a prior clinic note dated: December 27, 2023 (Reba) Referring Provider: Stacy Adhikari MD Additional Clinicians involved in Debby Hermosillo's care: DIAGNOSIS: 1. 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 Previously managed by Dr. Baever 2. Recurrent Adenocarcinoma- Stage IV 07/2022, confirmed 11/2022- Adenocarcinoma- KRAS A146V, P53, PDL-1 100%, ALK, ROS-1, NTRK, Her-2 and RET fusions, BRAF negative. Guardant 360 08/2022: MICHAEL splice site SNV, JAYLIN ASSESSMENT: 58 year old female here for follow up. 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 06/2022 with enlarging TAM opacity has enlarged, PET scan confirms that the lesion is PET avid and does not detail any additional sites of disease. Patient was presented at the tumor board and repeat CT 07/2022 with increasing lingular and RLL lesion. She underwent a bronch and EBUS and the lingula and 4L node are both positive for Adenocarcinoma, RLL also adenocarcinoma and both lesions have similar molecular characteristics with KRAS A146V mutation and no other abnormalities and PDL-1 100%. PET with stage IV disease and MRI Brain negative. Started Single agent Pembro 01/04/2023. PET 06/[address] 09/2023 no progression , PET 01/2024 no progression, MRI brain 01/2024 with new right frontal lesion with edema and symptoms. S/P Gamma Knife on 02/19/2024. She did have PCI in 2018 when she had small cell lung cancer. She is finishing a Dexamethasone taper and her symptoms improving. She will continue with her systemic treatment with Keytruda in 3 weeks when we see her back She is having constipation and I reviewed Miralax and stool softeners with her today. HPI: CASE HISTORY: Reverse Chronological Order 02/19/2024 - GKS Right frontal lesion 01/26/2024 - MRI brain: Interval development of a 0.8 x 0.7 cm cortical/subcortical rim-enhancing lesion with mild surrounding vasogenic edema in the right frontal lobe since 04/27/2023, suggestive of intracranial metastasis. 01/12/2024 - PET/CT: PRIMARY DISEASE SITE: * Stable treatment changes in the right upper lobe without hypermetabolic recurrence. JUAN ANTONIO DISEASE: * No metabolically active regional lymphadenopathy. METASTATIC DISEASE: * No metabolically active distant metastases. ADDITIONAL FINDINGS: * Mild uptake in the musculature surrounding the right ischium, likely strain or trauma. 09/28/2023 - CT CAP: Chest: Stable appearance of posttreatment change/treated neoplasm in the right upper lobe. Within the posterior right lower lobe, there is an area of nodularity measuring 8 x 6 mm. This is new when compared to the prior chest CT from 10/31/2022 but is stable when compared to the PET/CT from 06/14/2023. This was not FDG avid on the prior PET/CT. This abuts a linear opacity. Therefore, it is possible that this representing nodular component of atelectasis. Would advise continued close imaging surveillance and attention to this region. Additionally, there are stable groundglass opacities in the right middle lobe which should undergo continued close imaging surveillance. No significant thoracic adenopathy. A/P: No evidence of metastatic disease in the abdomen or pelvis. 06/14/2023 - PET/CT: No FDG avid neoplastic process. 04/27/2023 - MRI Brain: No convincing evidence for metastatic disease Chronic, diffuse white matter changes are seen 03/01/2023 - PET/CT: HEAD and NECK: No evidence of focal uptake to suggest FDG avid neoplastic process.. CHEST: Status post resection of FDG avid nodules in the lingula and right lower lobe with residual inflammatory changes. Recommend follow-up with CT to rule out residual disease. ABDOMEN/PELVIS: No evidence of focal uptake to suggest FDG avid neoplastic process.. EXTREMITIES/SKELETON: No evidence of focal uptake to suggest FDG avid neoplastic process.. 01/04/2023-Current - Keytruda q 6 weeks 12/2022 - PET/CT: HEAD/NECK: No FDG avid neoplastic process. CHEST: Enlarging FDG avid lingular nodule, bronchoscopy proven adenocarcinoma FDG avid left mediastinal lymph nodes, likely metastatic Postoperative changes right lower lobe wedge resection. Uptake near the site of resection, likely related to posttherapy changes and healing. Attention on follow-up CT scan of the chest. Stable posttreatment changes within right upper lobe ABDOMEN/PELVIS: No FDG avid neoplastic process. BONES/EXTREMITIES: New focus of FDG uptake in right gluteal musculature, concerning for metastasis No suspicious FDG avid osseous lesion. 12/2022 - MRI Brain: No acute intracranial process is noted. No evidence of metastasis in the current study. 07/2022 - Bronch Lingula and 4L: A - TRANSBRONCHIAL FINE-NEEDLE ASPIRATION - LINGULA NODULE - Positive for malignant cells. - Adenocarcinoma. B - EBUS TRANSBRONCHIAL FINE NEEDLE ASPIRATE, LYMPH NODE - 4L - Positive for malignant cells. - Adenocarcinoma. 07/2022 - CT Chest: Few small groundglass and solid pulmonary nodules are noted. At least two of the solid nodules in the lingula and right lower lobe have increased in size since 06/23/2022 and are concerning for neoplastic/metastatic disease. No new or increasing intrathoracic lymphadenopathy is noted. 07/2022 - PET/CT: Neck: No suspicious hypermetabolic foci Chest: Hypermetabolic nodule in the left upper lobe suspicious for neoplasm. No hypermetabolic lymphadenopathy. Abdomen and pelvis: No evidence of FDG avid neoplastic process Skeleton: No hypermetabolic osseous lesions 06/2022 - MRI Brain: No evidence of metastatic disease No suspicious findings 06/2022 - CT Chest: New mild reticulonodular opacities in the right lower lobe most likely infectious/inflammatory in etiology. Superimposed neoplasm cannot be excluded. 8 mm left upper lobe nodular opacity increased in size since 03/31/22, worrisome for neoplasm. Other subcentimeter nodular opacities and groundglass opacities are stable. 03/2022 - CT CAP: Chest: Interval development of a new 5 mm nodule in the right lower lobe. This may be infectious/inflammatory or neoplastic in nature. Recommend continued attention to this area on follow-up exams. Stable appearance of 6 mm groundglass opacity in the right middle lobe. An additional 4 mm groundglass opacity more inferiorly in the right middle lobe appears slightly less conspicuous when compared to prior study. Stable bandlike and nodular consolidative opacity in the right upper lobe and right suprahilar region, in keeping with postradiation fibrosis. A/P: No evidence of metastatic disease in the abdomen or pelvis. Moderate biliary ductal dilation, similar in appearance to prior CT chest, but new when compared to prior PET/CT. No obstructing calculus or mass is visualized. Nonobstructive nephrolithiasis in the right kidney. 09/21/2021 - MRI Brain: 5mm focus of restricted diffusion in the left parietal lobe. An acute infarct should be considered. No enhancing mass to suggest metastatic disease to the brain. 08/2021 - CT Chest: Mild patchy airspace opacification within the lingula, favored to be infectious/inflammation. Continued attention on subsequent studies is suggested. Since 02/25/2021, unchanged groundglass opacities within the right middle lobe measuring up to 0.5 cm. 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 Unchanged moderate intrahepatic biliary ductal dilatation. 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 Possibly related to prior treatment for lung cancer. No acute infarct No enhancing mass to suggest metastatic disease to the brain 02/2021 - CT Chest: Right upper lobe post radiation change, increased since 08/07/20, now obscuring the previously described reticulonodular opacity. Other small subcentimeter groundglass opacities in the right lung, Stable. 08/12/2020 - CT Chest: No interval change since 01/17/2020. 1.3 x 0.7 cm right upper lobe nodular opacity, most likely the known primary neoplasm, stable Adjacent right upper lobe patchy opacities most likely related to post radiation change or other infectious/inflammatory etiologies, stable. Other small subcentimeter groundglass opacities in the right lung, stable. 01/20/2020 - CT Chest: Interval decrease in size of right upper lobe nodular opacity, now measuring 1.5 cm in size. Slight interval increase in surrounding groundglass and reticular opacities, likely on the basis of posttreatment change. No evidence of bulky intrathoracic lymphadenopathy. 07/18/2019 - PET/CT: NECK: NO FDG AVID NEOPLASTIC PROCESS.. CHEST: NO FDG AVID NEOPLASTIC PROCESS. 1.4 X 0.9 CM HYPOMETABOLIC RIGHT UPPER LOBE NODULE WITH ADJACENT PARENCHYMAL SCARRING LATERALLY, IMPROVED SINCE 01/09/2019. FINDINGS ARE COMPATIBLE WITH SATISFACTORY RESPONSE OF TREATED RIGHT UPPER LOBE NODULE POST CHEMORADIATION. 0.6 CM AND 0.4 CM FAINT RIGHT MIDDLE LOBE GROUNDGLASS ATTENUATION DENSITIES, STABLE SINCE 09/12/2017. ABDOMEN/PELVIS: NO FDG AVID NEOPLASTIC PROCESS. EXTREMITIES/SKELETON: NO SUSPICIOUS FDG AVID OSSEOUS LESION. 04/09/2018 - Discontinued Imfinzi per Dr. Beaver due to pancreatitis 01/16/2018-01/30/2024 - PCI whole brain 2500 cGy in [address] Carrero 03/24/2017-07/12/2017 - Concurrent carboplatin and etoposide (5 cycles) 03/24/2017-05/17/2017 - Concurrent radiation Updated Visit, February 28, 2024: Since her last visit she did undergo GKS on 02/19/24 to her right frontal lesion. She is finishing a steroid taper per NS team. She has not had any more episodes of passing out or getting lost. She fels better overall. She did also finish cipro for UTI. She is gaining weight and eating well on the dex. She is having constipation. No abdominal pain or vomiting Updated Visit, February 07, 2024: Debby returns for follow up. The patient rescheduled her MRI brain multiple times and it was finally done on 01/25 and showed a new right frontal lesion with some vasogenic edema. She is on dex 4 mg BID. She is scheduled to see [facility] team 02/14. She has had multiple falls and her family finds her laying on the floor and she doesn't remember how she got there. She also was driving her son to work and got lost and didn't know how to get home. She did have some diarrhea for 2-3 weeks liquid stools 4-5 times a day. It went away on its own. She is eating and drinking okay. She does have some vision changes. She is no longer driving. No pain. Updated Visit, January 12, 2024: Debby returns for a follow up. She has her MRI of the brain scheduled for 01/14. Final reading of today's PET/CT are in process - on my initial view, I do not see any cause for concern. For the past 1.5 months, she has not had the strength to get back up after bending over. She endorses difficulty driving in the dark - recommended she follow up with her tube coater. Updated Visit, December 27, 2023: Debby returns for a follow up. She reports about 3 weeks ago, her found her asleep on the floor but she does not remember how she got there. Her elbows had wounds indicative of a fall - healed now. She complains of buttock pain, similar to a pain she had in the past. I will order a PET/CT and MRI of the brain to evaluate her symptoms. Her potassium is low on her labs today - she was prescribed a supplement. She says it caused abnormal sleeping habits and she discontinued use thinking it caused her fall. Her 4 children are her closest support system, she talks to them every day. Initial Visit, November 15, 2023: Transition of Care Debby Hermosillo presents today to transition her care as her previous provider left the practice. Doing well. Will need to re-scan in December Still smokes 4 cigs / day. Thyroid is starting to show hypothyroidism as an AE to Keytruda - will wait to correct with next lab test. - mother had thyroid cancer More tired than usual - especially in afternoon. October 03, 2023: Debby Hermosillo is a 58 year old year old female here for follow up. She is doing well and denies any rash, diarrhea and or SOB and or cough. She has had loss of appetite. REVIEW OF SYSTEMS Per HPI and otherwise negative by full review of organ systems. ECOG PERFORMANCE STATUS: 1 PHYSICAL EXAMINATION: Vitals: BP 160/81 Pulse 111 Temp (Src) 97.7 (Temporal) Resp 16 Ht 4' 11.843 (1.52m) Wt 93 lb 0.6 oz (42.2kg) SpO2 95% BMI 18.27 kg/(m^2). Body surface area is 1.33 meters squared. General: Alert and oriented, no distress, pleasant and cooperative. Cushingoid face Heart: Regular, normal S1 and S2, no murmurs, rubs, or gallops Lungs: Clear to auscultation bilaterally Abdomen: Benign Extremities: Feet/ankles without edema, posterior tibial pulses full and symmetrical ALLERGIES: ALLERGIES Allergen Reactions Penicillins Unknown MEDICATIONS: dexAMETHasone (DECADRON) 2 mg tablet Start the day after your Gamma Knife Procedure: Decadron (dexamethasone) Take 4 mg (2 tablets) daily for 3 days. Take 2 mg (1 tablet) daily for 3 days then Stop Decadron Patient should start on February 20, 2024. famotidine (PEPCID) 20 mg tablet Take 1 tablet by mouth once daily. ondansetron (ZOFRAN) 8 mg tablet Take 1 tablet by mouth every 8 hours as needed for nausea/vomiting. prochlorperazine (COMPAZINE) 10 mg tablet Take 1 tablet by mouth every 6 hours as needed. furosemide (LASIX) 20 mg tablet TAKE 1 TABLET BY MOUTH EVERY DAY KLOR-CON M20 20 mEq tablet TAKE 1 TABLET BY MOUTH EVERY DAY folic acid 1 mg tablet take 1 tablet by mouth every day sucralfate (CARAFATE) 1 gram tablet take 1 tablet by mouth four times a day buprenorphine-naloxone (SUBOXONE) 8-2 mg film Dissolve under the tongue once daily. pantoprazole DR (PROTONIX) 40 mg tablet Take 1 tablet by mouth every 12 (twelve) hours. aspirin, enteric coated (ASPIRIN, ENTERIC COATED) 81 mg EC tablet Take 81 mg by mouth once daily. atorvastatin (LIPITOR) 40 mg tablet Take 40 mg by mouth once daily. NURTEC ODT 75 mg disintegrating tablet DISSOLVE 1 TABLET ON THE TONGUE ONCE A DAY AT ONSET OF MIGRAINE ACETAMINOPHEN (TYLENOL ORAL) Take by mouth. benzonatate (TESSALON PERLE) 100 mg capsule take 1 capsule by mouth three times a day as needed for cough SUBOXONE 8-2 mg film Dissolve 1 Film under the tongue twice daily for 1 day. Do not start before November 23, 2022. LABORATORY VALUES: WBC (k/uL) Date Value 02/28/2024 8.94 RBC (m/uL) Date Value 02/28/2024 3.15 (L) Hemoglobin (g/dL) Date Value 02/28/2024 11.4 (L) Hematocrit (%) Date Value 02/28/2024 34.7 (L) MCV (fL) Date Value 02/28/2024 110.2 (H) MCH (pg) Date Value 02/28/2024 36.2 (H) MCHC (g/dL) Date Value 02/28/2024 32.9 RDW-CV (%) Date Value 02/28/2024 12.8 Platelet Count (k/uL) Date Value 02/28/2024 113 (L) MPV (fL) Date Value 02/28/2024 10.1 Glucose (mg/dL) Date Value 02/28/2024 139 (H) BUN (mg/dL) Date Value 02/28/2024 26 (H) Creatinine (mg/dL) Date Value 02/28/2024 0.52 (L) Sodium (mmol/L) Date Value 02/28/2024 136 Potassium (mmol/L) Date Value 02/28/2024 4.2 Chloride (mmol/L) Date Value 02/28/2024 101 CO2 (mmol/L) Date Value 02/28/2024 24 Protein, Total (g/dL) Date Value 02/28/2024 5.9 (L) Albumin (g/dL) Date Value 02/28/2024 4.0 Calcium, Total (mg/dL) Date Value 02/28/2024 8.9 Alkaline Phosphatase (U/L) Date Value 02/28/2024 96 Bilirubin, Total (mg/dL) Date Value 02/28/2024 0.3 AST (U/L) Date Value 02/28/2024 19 ALT (U/L) Date Value 02/28/2024 68 (H) DIAGNOSIS: (C71.1) 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) (primary encounter diagnosis) Plan: COMPREHENSIVE METABOLIC PANEL, COMPLETE BLOOD COUNT AND DIFFERENTIAL, THYROID STIMULATING HORMONE (R53.81, R53.83) Malaise and fatigue Plan: COMPREHENSIVE METABOLIC PANEL, COMPLETE BLOOD COUNT AND DIFFERENTIAL, THYROID STIMULATING HORMONE PAST MEDICAL HISTORY Diagnosis Date Acute, but ill-defined, cerebrovascular disease 10/2021 Adenocarcinoma of left lung (HCC) 08/10/2022 4L and Lingula Arthritis Asthma Back pain chronic Carpal tunnel syndrome, bilateral s/p repair - 2016 Current smoker DDD (degenerative disc disease), lumbar GERD (gastroesophageal reflux disease) Kidney stones Malignant neoplasm of lower lobe of right lung (HCC) 11/15/2022 Neck pain Neuropathy unclear origin- 6 months? saw neurologist (Dr. Hearn- In [facility]); possible MS? 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 PAST SURGICAL HISTORY Procedure Laterality Date CARPAL TUNNEL CHOLECYSTECTOMY HX COLONOSCOPY HYSTERECTOMY HX Partial NOSE SURGERY HX FRACTURE PAST SURGICAL HISTORY OF CONE BIOPSY 1982 WEDGE RESECT LUNG Right 11/15/2022 VATS right lower lobe wedge resection, mediastinal lymph node sampling, intercostal nerve block Social History Tobacco Use Smoking status: Every Day Current packs/day: 1.50 Average packs/day: 1.5 packs/day for 45.0 years (67.5 ttl pk-yrs) Types: Cigarettes Smokeless tobacco: Never Tobacco comments: 4 cigs per day Vaping Use Vaping status: Never Used Substance Use Topics Alcohol use: No Drug use: Yes Frequency: 1.0 times per week Types: Marijuana Comment: previous marijuana FAMILY HISTORY Problem Relation Age of Onset Arthritis Mother Diabetes Mother Cancer Mother bowel, thyroid Hypertension Father other (cabg) Father Cancer Brother colon Cancer Brother colon other (leukemia) Brother Diabetes Sister Diabetes Sister Diabetes Sister I spent a total of 20 minutes on the date of the service which included preparing to see the patient, [id number] patient care, completing clinical documentation, performing a medically appropriate examination, counseling and educating the patient/family/caregiver, ordering medications, tests, or procedures, independently interpreting results (not separately reported), communicating results to the patient/family/caregiver, and care coordination (not separately reported). Noemí Jolley PA-C Hematology and Oncology Services Provided at: [place], [place] CC: Milton Madison MD documented in this encounter [facility] 02-19-2024 History of Present illness Narrative Radiology Service Progress Note PATIENT NAME: Debby Hermosillo DATE OF SERVICE: February 19, 2024 TIME: 8:35 AM PATIENT IDENTITY VERIFICATION COMPLETED USING TWO (2) IDENTIFIERS: Name and Date of confirmed by patient verbally and Name and Date of confirmed by identification band. FALL SCREENING: Has the patient had 2 falls in the last year or 1 fall with injury or currently using an Ambulatory Assistive Device (Walker, Cane, Wheelchair, Crutches, etc.)? No PATIENT GENDER DATA: Female. status: : No status: NO. PATIENT RELEVANT IMPLANT DATA REVIEWED: Yes PATIENT PRESENTS WITH AN IMPLANTABLE OR ATTACHED ENVIRONMENTAL RESEARCH SCIENTIST: No RADIOLOGY DEPARTMENT: CT; Exam(s) Completed: Brain PERIPHERAL IV DATA: Not applicable SIGNED BY: RT Lisseth(Abdiel) February 19, 2024 8:35 AM documented in this encounter [facility] 02-19-2024 Note [facility] 02-19-2024 Instructions Gloria Fuentes RN - 02/19/2024 8:39 AM EST [facility] Discharge Instructions - As with any surgery there are risks and potential side effects. There is a slight chance of developing brain swelling days or months after the Gamma Knife radiosurgery. If you experience nausea, vomiting, severe headache, visual changes, difficulty speaking, a seizure or any other symptom unusual for you, contact your physician immediately or go to the nearest emergency room. These may or may not be symptoms of brain swelling. If you go to a physician or hospital other than the [facility] with any problem related to the Gamma Knife procedure, please notify the Gamma Knife nurse. 1.) Keep the pin sites clean and dry: You may remove the bandaids from the pin sites the morning after your radiosurgery. Clean the sites twice a day with hydrogen peroxide or mild soap and water. You may then apply a small amount of antibiotic ointment such as Neosporin or Bacitracin to the pin sites for 3-4 days. Bandaids over the pin sites for 2-3 days are sufficient. Often the sites on the back of your head will not have bandaids, as the bandaid will not adhere to hair. A small amount of pink drainage on your pillow the first or second night after your radiosurgery is not unusual. The pin sites may be tender to the touch, as with any small wound, for 3-4 days. Infection of the pin sites is very rare. If a couple days post-radiosurgery you notice increased pain, redness, swelling, the pin sites feel hot to the touch, a cloudy or foul smelling drainage from the pin sites, or a fever of 101 degrees F or higher, contact your physician. 2.) You may wash your hair/scalp 48 hours after your radiosurgery: This gives the pin sites a chance to begin to heal and not introduce any infection into the wounds. 3.) Avoid wearing tight bands or wigs over the pin sites for a few days: This gives the wounds a chance to heal in a dry, clean environment. 4.) Keep your head elevated on a couple of pillows for one week: This will help lessen swelling at the pin sites and minimize pressure within your head. Occasionally patients will notice a small amount of swelling or slight bruising at the pin sites. This swelling may even spread to below your eyes. Applying ice packs to the affected area may help lessen the amount of swelling. This swelling usually lasts less than a week. 5.) You may take non-aspirin pain medication, such as Tylenol, if you are having any discomfort: Some patients are placed on steroids, such as Decadron, and an antacid, such as Pepcid, following their radiosurgery. Certain conditions require these medications to lessen the chance of swelling around the treated area. When prescribed, these medications are extremely important in the period immediately following your Gamma Knife treatment and must be taken exactly as directed. The Gamma Knife nurse will discuss your particular situation with you. Do not take any Decadron for the remainder of today. Begin following the below regimen on 02/20/24: Decadron (dexamethasone) 2mg tablets Take 4mg (2 tablets) daily with breakfast for 3 days, then take 2mg (1 tablet) daily with breakfast for 3 days, then stop. Please also take Pepcid 20mg once daily while taking Decadron. Stop taking Pepcid 20mg once the decadron taper is complete. Resume all other regular medications. Taking good care of your general health is an important step to recovery. Continue to eat well and get plenty of rest. At the time of discharge, you will be given your follow-up appointments with your neurosurgeon and radiation oncologist. If not, these appointment dates and times will be mailed to you. If you have any questions or problems, you may call your physician, Dr. Yamileth More at [phone] In the evening or on weekends, call [phone]; [phone] or toll-free [phone] and ask the pretzel twisting machine operator to page your neurosurgeon's resident unit receptionist. Monday through Monday 8:00 am to 5:00 pm or the Gamma Knife nurse Monday through Monday 8:00 am to 4:00 pm at [phone]. documented in this encounter [facility] 02-19-2024 Note IMPRESSION: Preprocedure localization examination. Integration Technician: ABELINO Transcribe Date/Time: Feb 19 2024 8:18A Dictated by : NESTRO TEE MD This examination was interpreted and the report reviewed and electronically signed by: LULU SILVA MD on Feb 19 2024 8:32AM EST DIVISION OF RADIOLOGY 02-19-2024 History of Present illness Narrative Radiology Service Progress Note DATE OF SERVICE: February 19, 2024 TIME: 7:42 AM PATIENT WEIGHT: 84LBS PATIENT IDENTITY VERIFICATION COMPLETED USING TWO (2) STANDARD IDENTIFIERS: Name and Date of confirmed by patient verbally and Name and Date of confirmed by identification band. FALL SCREENING: Has the patient had 2 falls in the last year or 1 fall with injury or currently using an Ambulatory Assistive Device (Walker, Cane, Wheelchair, Crutches, etc.)? No PATIENT GENDER DATA: Female. status: : No status: NO. ALLERGIES: Reviewed and unchanged CONTRAST ALLERGY: No EXAM: MRI - CONTRAST TYPE: GROUP II IV SITE: Ambulatory: A peripheral IV was started in the Left antecubital site with a Angio cath: 22 gauge. and A Saline lock was inserted per protocol IV SITE APPEARANCE: Clean,Dry and Intact SIGNATURE: Staci Pino RN PATIENT NAME: Debby Hermosillo DATE: February 19, 2024 TIME: 7:42 AM Radiology Service Progress Note PATIENT NAME: Debby Hermosillo DATE OF SERVICE: February 19, 2024 TIME: 7:45 AM PATIENT IDENTITY VERIFICATION COMPLETED USING TWO (2) IDENTIFIERS: Name and Date of confirmed by patient verbally. FALL SCREENING: Has the patient had 2 falls in the last year or 1 fall with injury or currently using an Ambulatory Assistive Device (Walker, Cane, Wheelchair, Crutches, etc.)? No PATIENT GENDER DATA: Female. status: : No status: NO. PATIENT RELEVANT IMPLANT DATA REVIEWED: Yes PATIENT PRESENTS WITH AN IMPLANTABLE OR ATTACHED ENVIRONMENTAL RESEARCH SCIENTIST: No RADIOLOGY DEPARTMENT: MR; Exam(s) Completed: Head: Localization PERIPHERAL IV DATA: Site assessment: Clean,Dry and Intact, Site disposition Left in for next appointment SIGNED BY: Elisabet Pandey RT(R) February 19, 2024 7:45 AM documented in this encounter [facility] 02-19-2024 Note [facility] 02-19-2024 Note [facility] 02-19-2024 Note [facility] 02-19-2024 History of Present illness Narrative February 19, 2024 0727 Debby Hermosillo arrived ambulatory with post MRI imaging. Debby arrived for [facility] ID verified with patient: name and ; ID band applied, allergies reviewed Gloria Fuentes RN Debby assessed for the following: Does Debby have any pain? No. Pain 0 on scale of 0-10 Does Debby have: Unintentional weight loss or gain of greater than 10 pounds due to a change of appetite and/or intake: No Difficulty Chewing/Swallowing: No Fall Risk Assessment: Not at risk for falls Concerns for physical/emotional abuse: No Patient Allergies Reviewed: Yes Glasses: Yes . Dentures:No Hearing Aid: No Transportation verification: Is patient on immunotherapy? Yes, eric. H&P Completion Date: . IV Access Site: left arm #22 angiocath/mediport placed/accessed prior to arrival to [facility]K. Gloria Fuentes RN Debby positioned in up-right position for stereotactic frame application UNIVERSAL PROTOCOL / SAFETY CHECKLIST: Procedure to be Performed: Gamma Knife Head-frame Placement Sign-In Communication: Completed 818 Time Out: Team confirms the Correct Patient, Correct Procedure, Correct Site, Site Marking, & Correct Position. Gloria Fuentes RN 821 IV Versed 1 mg per order of Dr. Yamileth More for anxiolysis, Gloria Fuentes RN. Falls Risk Assessment: Patient now at risk for falls d/t administration of versed for frame placement. 823 Head Frame: [place], pin size 4 utilized for anterior x2 and posterior x2. Frame placement by Dr. Yamileth More. Post-Frame Scannin Report called to ALLYSSA Jenkins in imaging; transported to CT scan via cart. 0840 Debby returned to Gamma Knife center waiting with significant other. Nutrition offered. Debby updated regarding treatment planning. Pt reported Decadron 4 mg PO taken prior to arrival in [facility]. No additional decadron to be given per order of Gloria Petty RN. 1200 Xanax 0.5mg PO given per order of Gloria Lou RN Shelley Pain Assessment: No. Pain 0 on scale of 0-10 1214 GKRS treatment start time. 1239 [facility] treatment end time. 1245 Head frame removed; four pin site wounds cleansed with hydrogen peroxide, antibiotic ointment applied, Band-Aids to Frontal area pin sites. IV access d/c'd. ALLYSSA Cruz Pain Assessment: No. Pain 0 on scale of 0-10 Debby is able to move within pre-procedural abilities. Discharge Information: Written and verbal post-procedural discharge instructions given to Debby with stated understanding. Reviewed pin site care of cleansing pin sites twice per day and application of antibiotic ointment to sites. May take Ibuprofen, Tylenol, or non-aspirin pain medication for discomfort post GK treatment. Discharge Prescriptions eScripted to Pharmacy of Choice: Yes, [facility] in [place], [place]. Contact phone numbers for [facility]/Gamma Knife RN desk hours of availability, Dr. Yamileth More's clinic telephone number, and [facility] local and toll free numbers given to Debby and family/visitors/care takers. 1300 Debby left ambulatory with Gloria Fuentes RN documented in this encounter [facility] 02-19-2024 History of Present illness Narrative DEBBY HERMOSILLO [id number] 02/19/2024 [facility] of Radiation Oncology [facility] RADIATION ONCOLOGY GAMMA KNIFE TREATMENT PLANNING NOTE For reasons stated in the consult note, DEBBY HERMOSILLO is a candidate for palliative radiosurgery. Based on review and interpretation of the relevant diagnostic studies together with the exam findings, DEBBY HERMOSILLO was imaged on 02/19/2024. The CT and MRI imaging was fused and checked in Gamma Plan by the radiation oncologist/neurosurgeon and physicist and the target volume to be treated as well as the critical normal structure(s) were delineated. After participating in the treatment planning process with neurosurgery and medical physics, I approved the best plan to deliver my prescribed course of radiosurgery. The target tissue was planned using Gamma Plan to allow for the best isodose distribution and dosimetry/DVH. The dose to normal tissue and target tissue was confirmed upon review of the calculated dose. A completed summary of this plan dated 02/19/2024 incorporated herein by reference includes dose, isodose distribution and DVH. Electronically Signed Estevan Muaro M.D. 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 Recurrent Adenocarcinoma- with metastasis 07/2022, confirmed 11/2022- Adenocarcinoma- KRAS A146V, P53, PDL-1 100%, ALK, ROS-1, NTRK, Her-2 and RET fusions, BRAF negative. Guardant 360 08/2022: MICHAEL splice site SNV, JAYLIN. 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 The plan utilized 1 shot using 8 mm sector. GTV volume = 0.24 cm3. Maximum dose = 4070.0 cGy. Maximum diameter = 0.96 cm. MD/PD = 1.696. PIV/CTV = 2.021. Gradient Index = 2.5. Number of Fractions = 1. 1 separate treatment plans were devised. ELAPSED TREATMENT TIME: 25 minutes (one session). TOLERANCE: Excellent. RESPONSE: To be evaluated. REMARKS: The patient will follow-up in 2 months with repeat MRI scan. Authorized user was present during the entire treatment. The total treatment time was within 10% of the written directive. Staff Physician Estevan Mauro M.D [id number] AM Electronically Signed cc: Dr. Jessika More documented in this encounter [facility] 02-19-2024 Note HNO ID: [id number] Author: ESTEVAN MAURO MD Service: Radiation Oncology Author Type: Physician Type: Progress Notes Filed: 02/27/2024 09:13 Note Text: DEBBY HERMOSILLO [id number] 02/19/2024 [facility] Department of Radiation Oncology [facility] RADIATION ONCOLOGY GAMMA KNIFE TREATMENT PLANNING NOTE For reasons stated in the consult note, DEBBY HERMOSILLO is a candidate for palliative radiosurgery. Based on review and interpretation of the relevant diagnostic studies together with the exam findings, DEBBY HERMOSILLO was imaged on 02/19/2024. The CT and MRI imaging was fused and checked in Gamma Plan by the radiation oncologist/neurosurgeon and physicist and the target volume to be treated as well as the critical normal structure(s) were delineated. After participating in the treatment planning process with neurosurgery and medical physics, I approved the best plan to deliver my prescribed course of radiosurgery. The target tissue was planned using Gamma Plan to allow for the best isodose distribution and dosimetry/DVH. The dose to normal tissue and target tissue was confirmed upon review of the calculated dose. A completed summary of this plan dated 02/19/2024 incorporated herein by reference includes dose, isodose distribution and DVH. Electronically Signed Estevan Mauro M.D. 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 Recurrent Adenocarcinoma- with metastasis 07/2022, confirmed 11/2022- Adenocarcinoma- KRAS A146V, P53, PDL-1 100%, ALK, ROS-1, NTRK, Her-2 and RET fusions, BRAF negative. Guardant 360 08/2022: MICHAEL splice site SNV, JAYLIN. 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 The plan utilized 1 shot using 8 mm sector. GTV volume = 0.24 cm3. Maximum dose = 4070.0 cGy. Maximum diameter = 0.96 cm. MD/PD = 1.696. PIV/CTV = 2.021. Gradient Index = 2.5. Number of Fractions = 1. 1 separate treatment plans were devised. ELAPSED TREATMENT TIME: 25 minutes (one session). TOLERANCE: Excellent. RESPONSE: To be evaluated. REMARKS: The patient will follow-up in 2 months with repeat MRI scan. Authorized user was present during the entire treatment. The total treatment time was within 10% of the written directive. Staff Physician Estevan Mauro M.D [id number] AM Electronically Signed cc: Dr. Jessika More [facility] 02-16-2024 Telephone encounter Note I left a message for Debby regarding Gamma Knife Stereotactic Radiosurgery procedure on 02/19/24. Reviewed contents of Gamma Knife information package. Patient may take morning meds and can eat and drink. Encouraged patient to take any pain medications as ordered/needed as well as to bring any medications that they may take throughout the day so as not to miss any doses. Instructed Debby to report to [facility]- at 0710. Patient instructed to disregard any other emails, phone calls, or Mychart messages regarding arrival time. Directions given regarding desk pens assembler parking at [facility] entrance. Jayleen Enrique RN [facility] 02-16-2024 Miscellaneous Notes I left a message for Debby regarding Gamma Knife Stereotactic Radiosurgery procedure on 02/19/24. Reviewed contents of Gamma Knife information package. Patient may take morning meds and can eat and drink. Encouraged patient to take any pain medications as ordered/needed as well as to bring any medications that they may take throughout the day so as not to miss any doses. Instructed Debby to report to [facility] at 0710. Patient instructed to disregard any other emails, phone calls, or Mychart messages regarding arrival time. Directions given regarding desk pens assembler parking at [facility] entrance. Jayleen Enrique RN documented in this encounter [facility] 02-15-2024 History of Present illness Narrative Images from the original note were not included. Brain Tumor Neuro-Oncology Center New Patient Consultation Referred by No referring provider defined for this encounter. 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 Beaver.during surveillance she developed recurrence 2022 , biopsy showed adenocarcinoma of the lung , underwent surgery in addition to keytruda Last PET scan is negative no progression MRI brain done as she was complaining of headache twice per week responding to med , more in the morning 6/10 , nausea no other complaints MRI showing right frontal brain lesion with mild edema ASSESSMENT: 58 year old female here for follow up. Last Chemo: Keytruda Current Steroids dose: dexamethasone 4 mg BID Current AED Dose: nil Therapy Status Data Form Past Medical History: PAST MEDICAL HISTORY Diagnosis Date Acute, but ill-defined, cerebrovascular disease 10/2021 Adenocarcinoma of left lung (HCC) 08/10/2022 4L and Lingula Arthritis Asthma Back pain chronic Carpal tunnel syndrome, bilateral s/p repair - 2016 Current smoker DDD (degenerative disc disease), lumbar GERD (gastroesophageal reflux disease) Kidney stones Malignant neoplasm of lower lobe of right lung ([facility]) 11/15/2022 Neck pain Neuropathy unclear origin- 6 months? saw neurologist (Dr. Hearn- In [facility]); possible MS? 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 Past Surgical History: PAST SURGICAL HISTORY Procedure Laterality Date CARPAL TUNNEL CHOLECYSTECTOMY HX COLONOSCOPY HYSTERECTOMY HX Partial NOSE SURGERY HX FRACTURE PAST SURGICAL HISTORY OF CONE BIOPSY 1983 WEDGE RESECT LUNG Right 11/15/2022 VATS right lower lobe wedge resection, mediastinal lymph node sampling, intercostal nerve block Family History: FAMILY HISTORY Problem Relation Age of Onset Arthritis Mother Diabetes Mother Cancer Mother bowel, thyroid Hypertension Father other (cabg) Father Cancer Brother colon Cancer Brother colon other (leukemia) Brother Diabetes Sister Diabetes Sister Diabetes Sister Social History Tobacco Use Smoking status: Every Day Current packs/day: 1.50 Average packs/day: 1.5 packs/day for 45.0 years (67.5 ttl pk-yrs) Types: Cigarettes Smokeless tobacco: Never Tobacco comments: 4 cigs per day Vaping Use Vaping status: Never Used Substance Use Topics Alcohol use: No Drug use: Yes Frequency: 1.0 times per week Types: Marijuana Comment: previous marijuana Allergies: Penicillins Current Outpatient Medications Medication Sig ondansetron (ZOFRAN) 8 mg tablet Take 1 tablet by mouth every 8 hours as needed for nausea/vomiting. prochlorperazine (COMPAZINE) 10 mg tablet Take 1 tablet by mouth every 6 hours as needed. benzonatate (TESSALON PERLE) 100 mg capsule take 1 capsule by mouth three times a day as needed for cough furosemide (LASIX) 20 mg tablet TAKE 1 TABLET BY MOUTH EVERY DAY dexAMETHasone (DECADRON) 4 mg tablet Take 1 tablet by mouth two times a day with meals. KLOR-CON M20 20 mEq tablet TAKE 1 TABLET BY MOUTH EVERY DAY folic acid 1 mg tablet take 1 tablet by mouth every day sucralfate (CARAFATE) 1 gram tablet take 1 tablet by mouth four times a day buprenorphine-naloxone (SUBOXONE) 8-2 mg film Dissolve under the tongue once daily. pantoprazole DR (PROTONIX) 40 mg tablet Take 1 tablet by mouth every 12 (twelve) hours. SUBOXONE 8-2 mg film Dissolve 1 Film under the tongue twice daily for 1 day. Do not start before November 23, 2022. aspirin, enteric coated (ASPIRIN, ENTERIC COATED) 81 mg EC tablet Take 81 mg by mouth once daily. atorvastatin (LIPITOR) 40 mg tablet Take 40 mg by mouth once daily. NURTEC ODT 75 mg disintegrating tablet DISSOLVE 1 TABLET ON THE TONGUE ONCE A DAY AT ONSET OF MIGRAINE ACETAMINOPHEN (TYLENOL ORAL) Take by mouth. No current facility-administered medications for this visit. Review of systems: Constitutional: No recent fever or weight loss. Eyes: No history of glaucoma or cataracts. ENMT: No recent ear infection, nasal congestion, mouth sores or sore throat. CV: No history of chest pain, palpitations or leg swelling. Respiratory: No history of SOB, asthma or recent cough. Gastrointestinal: No history of nausea, vomiting, dysphagia or abdominal pain. Genitourinary: No history of hematuria or dysuria. Musculoskeletal: No complaint of arthritis, unstable gait or arm/leg weakness. Psychiatric: No history of hallucinations or depression or anxiety. ROS Neurological: No complaint of headache. No complaint of tinnitus. No complaint of decreased hearing. No complaint of diplopia. No complaints of decreased visual acuity. No complaint of arm/leg numbness. No problem with limb coordination. No complaint of syncope, seizures or disorientation. Objective Physical Exam: There were no vitals taken for this visit. General appearance: well appearing, in no acute distress, alert Head: NC/AT Eyes: clear, anicteric Oropharynx: clear, no lesions Neck: supple, no LAD Lungs: CTA bilaterally, no W/C Heart: RR without murmur noted Abdomen: soft, NT/ND Extremities: warm, no cyanosis or edema Skin: color, texture, and turgor unremarkable. No rashes or lesions. PE Neuro: A&O x3. CN II-XII grossly intact. Motor: appropriate muscle bulk, tone, and strength. Sensorium: grossly intact. Gait: Unremarkable Karnofsky performance status: 90 - Able to carry on normal activity, minor signs or symptoms of disease. ECOG performance status: 0 - Fully active, able to carry on all pre-disease performance without restriction. PHQ depression alert addressed with patient: No 12/12/2022 PHQ 2 and 9 Total Scores PHQ-2 Score 0 Labs: Latest Ref Rng & Units 11/15/2023 12/27/2023 02/07/2024 CBC WBC 3.70 - 11.00 k/uL 10.23 9.97 11.43 RBC 3.90 - 5.20 m/uL 3.05 2.89 3.50 Hemoglobin 11.5 - 15.5 g/dL 11.7 11.0 13.1 Hematocrit 36.0 - 46.0 % 34.0 33.4 38.5 MCV 80.0 - 100.0 fL 111.5 115.6 110.0 MCH 26.0 - 34.0 pg 38.4 38.1 37.4 MCHC 30.5 - 36.0 g/dL 34.4 32.9 34.0 RDW-CV 11.5 - 15.0 % 13.2 15.7 13.2 Platelet Count 150 - 400 k/uL 194 212 241 MPV 9.0 - 12.7 fL 9.8 8.7 9.5 Baso% % 0.4 0.3 0.1 Abs Neut (ANC) 1.45 - 7.50 k/uL 7.41 7.60 10.32 Abs Lymph 1.00 - 4.00 k/uL 1.48 1.32 0.49 Abs [place] <0.87 k/uL 1.06 0.84 0.39 Abs Eosin <0.46 k/uL 0.15 0.06 <0.03 Abs Baso <0.11 k/uL 0.04 0.03 <0.03 NRBC /100 WBC 0.0 0.0 0.0 Latest Ref Rng & Units 11/15/2023 12/27/2023 02/07/2024 CMP Sodium 136 - 144 mmol/L 139 137 133 Potassium 3.7 - 5.1 mmol/L 4.2 3.2 4.4 Chloride 98 - 107 mmol/L 103 100 94 CO2 22 - 30 mmol/L 28 28 28 Glucose 74 - 99 mg/dL 78 96 144 BUN 7 - 21 mg/dL 11 14 26 Creatinine 0.58 - 0.96 mg/dL 0.66 0.66 0.57 EGFR >=60 mL/min/1.73m 101 101 104 Protein, Total 6.3 - 8.0 g/dL 5.6 5.7 6.7 Albumin 3.9 - 4.9 g/dL 3.5 3.0 4.4 Calcium 8.5 - 10.2 mg/dL 9.0 8.5 9.6 Bilirubin, Total 0.2 - 1.3 mg/dL 0.2 0.4 0.3 AST 13 - 35 U/L 15 18 14 ALT 7 - 38 U/L 10 13 16 Alkaline Phosphatase 34 - 123 U/L 129 217 93 Final Pathology: nil Imaging: MRI Report MRI BRAIN WO/W IVCON Exam End: 09/17/2022 3:39 PM (Final result) Narrative: * * *Final Report* * * DATE OF EXAM: Sep 17 2022 3:39PM [facility] [id number] - MRI BRAIN WO/W IVCON / PROCEDURE REASON: Malignant neoplasm of lower lobe of left lung (HCC) * * * * Physician Interpretation * * * * EXAMINATION: MRI BRAIN WO/W IVCON HISTORY: Malignant neoplasm of lower lobe of left lung (HCC) TECHNIQUE: Routine brain MRI protocol without and with contrast including diffusion and gradient echo images. MQ: MRBWOW_2 Contrast: 8 mL Dotarem IV COMPARISON: Brain MRI 03/08/2017, brain CT 07/30/2018, outside brain MRI 01/05/2018 RESULT: Acute Change: There is no evidence of restricted diffusion to suggest an acute infarct. Hemorrhage: No evidence of prior parenchymal hemorrhage on the gradient echo images. Mass Lesion/ Mass Effect: No evidence of an intracranial mass or extra-axial fluid collection. No abnormal parenchymal or leptomeningeal enhancement is noted following contrast administration. No significant mass effect. Chronic Change: Extensive, confluent increased T2 and FLAIR signal is present in the supratentorial white matter and patchy FLAIR hyperintensity within the lenard which is nonspecific but likely represents extensive chronic microvascular ischemia and/or posttreatment changes. Parenchyma: There is mild generalized parenchymal volume loss. The brain parenchyma is otherwise within normal limits of signal intensity and morphology. Ventricles: Ventriculomegaly corresponds to the degree of parenchymal volume loss. Skull Base: Partially empty sella Hypothalamic and pituitary region are otherwise grossly normal. Craniocervical junction is normal. No significant marrow replacement process. Vasculature: Major intracranial arterial structures, and dural venous sinuses show typical flow void, suggesting patency by spin echo criteria. Other: Sinuses are clear. There is partial mastoid sclerosis and mild left/minor right mastoid fluid. Orbits and extracranial soft tissues are grossly unremarkable. Impression: IMPRESSION: No MR evidence for acute intracranial abnormality. Extensive confluent FLAIR hyperintensity within the supratentorial white matter and lenard with progression possibly chronic ischemic changes and/or posttreatment related changes. Additional findings as discussed. Integration Technician: ABELINO Transcribe Date/Time: Sep 17 2022 3:44P Dictated by : FEMI BARNETT MD This examination was interpreted and the report reviewed and electronically signed by: FEMI BARNETT MD on Sep 17 2022 4:01PM EST , CT Brain Report CT BRAIN W IVCON Exam End: 07/30/2018 11:00 AM (Final result) Narrative: * * *Final Report* * * DATE OF EXAM: Jul 30 2018 11:00AM [facility] 0005 - CT BRAIN W IVCON / PROCEDURE REASON: multiple diagnoses * * * * Physician Interpretation * * * * RESULT: EXAMINATION: CT BRAIN W IVCON CLINICAL HISTORY: Headache; lung cancer. TECHNIQUE: Serial axial images with IV contrast were obtained from the vertex to the foramen magnum. MQ: CTBWOW_1 Contrast: 90 mL Omnipaque [address] Dose-Length Product (DLP): 761 mGy*cm CT Dose Reduction Employed: Automated exposure control (AEC) COMPARISON: Outside MRI brain without/with contrast dated 01/05/2018 RESULT: Age-appropriate brain volume without structural abnormality with no more than minimal nonspecific white matter changes. Negative for an acute parenchymal insult, hemorrhage, mass effect, extra-axial collection, and abnormal enhancement. The visualized osseous structures, soft tissues, orbits, paranasal sinuses, and right mastoid are unremarkable with mild left mastoid effusion again noted. Impression: IMPRESSION: No CT evidence of acute intracranial pathology or abnormal enhancement to suggest metastatic disease. If headaches progress or persist, consider intracranial mass protocol MRI brain without/with contrast for further evaluation. Transcribe Date/Time: Jul 30 2018 11:31A Dictated by: MARYSOL BAIG MD This examination was interpreted and the report reviewed and electronically signed by: MARYSOL BAIG MD on Jul 30 2018 11:37AM EST Thank you for allowing us to participate in the care of your patient. Should there be any questions regarding this interpretation, please call [phone]. If you are unable to reach us at the number above, please feel free to contact [facility] at [phone]. Data Review: Personal review of medical records: I [facility] the [facility] chart. Personal review of image, tracing or specimen: yes Lesion size: Multifocal: No Subependymal spread: No Assessment & Plan KPS score:80 MEDICAL DECISION MAKING Data Review: Treatment Options and Risks: I have discussed the management options and respective risks and benefits with the patient. We reviewed the radiographic findings (above) and their significance. We discussed observation, surgery (craniotomy vs. biopsy), chemotherapy, radiation and radiosurgery. Of these I believe that Gamma Knife is the most appropriate next step. We discussed the Gamma Knife procedure. The morning of the procedure an IV is started and an MRI obtained. Thereafter, local anesthetic is injected at four sites into the scalp. A reference frame is then secured to the head at those sites - some discomfort (pressure) is common for the first five to ten minutes but then usually goes away. Measurement are taken and then the patient is sent for a CT scan. The CT and MRI are transferred to our planning computer where I fuse the images and define regions to be treated (or not). Thereafter I create a plan by applying different size, intensities and locations of focused radiation to the lesion such that the end result is that the treatment dose of radiation nearly matches the size, shape and location of the lesion. The radiation oncologist reviews the plan and assigns a dose of radiation. The radiation physicist reviews the plan and confirms the machine is working properly. During this time the patient rests in the waiting area. Treatment typically is in the afternoon. The patient lies down on the treatment couch and the hogshead mat assembler is part of a positioning device that will direct, with great accuracy, up to 192 beams of radiation to converge at the point I picked on the computer. The staff will leave the room prior to treatment and the patient will be monitored by 3 television cameras and 2 intercom systems. The patient will then slide into the device up to their lower chest for the duration of treatment, and then exit. Once the treatment is completed, the patient will be taken to the recovery room where the frame will be removed and band aids applied. The patient will be observed, typically for 1/2 to 2 hours then discharged. Postoperative and follow-up instructions will be given prior to discharge. Per the patient's request, we will proceed with scheduling the case in the coming days. All questions and issues were addressed with the patient and she appears satisfied with the current plan. Recommendations: As above Medicines: No Change Instructions: Continue present activity No resident was available to participate in this visit. I saw and evaluated the patient. I reviewed the fellow's note and agree with findings and plan as written. Josep Menchaca MD 12:00 pm 02/15/2024 [facility] I spent a total of 60 minutes on the date of the service which included preparing to see the patient, [id number] patient care, completing clinical documentation, obtaining and/or reviewing separately obtained history, counseling and educating the patient/family/caregiver, independently interpreting results (not separately reported), and care coordination (not separately reported). Alfredo More MD February 15, 2024 documented in this encounter [facility] 02-15-2024 Note [facility] 02-15-2024 Nurse Note Additional intake questions: Has the patient had fever, nausea, vomiting, diarrhea, constipation, fatigue for > 1 week? No Does the patient have a decreased appetite? No Does patient want to see a Hand Plate Stacker? No (yes to any of above refer patient to schedulers for dietitian appointment) ) Does patient have any new or increased numbness or tingling of extremities? No Is patient interested in fertility information? No Does patient need any prescription refills? No Does patient have an advanced directive in place? No, Patient referred to [facility] 02-15-2024 Nurse Note Additional intake questions: Has the patient had fever, nausea, vomiting, diarrhea, constipation, fatigue for > 1 week? No Does the patient have a decreased appetite? No Does patient want to see a Hand Plate Stacker? No (yes to any of above refer patient to schedulers for dietitian appointment) ) Does patient have any new or increased numbness or tingling of extremities? No Is patient interested in fertility information? No Does patient need any prescription refills? No Does patient have an advanced directive in place? No, Patient referred to [facility] documented in this encounter [facility] 02-15-2024 Note [facility] 02-15-2024 History of Present illness Narrative Radiation Oncology - New Patient/Consult Note Patient consents to this virtual visit. PATIENT NAME: Debby Hermosillo PATIENT REQUESTING PROVIDER: Dr. More DIAGNOSIS: 58 year old female with hx Stage II A, T2a, N1, M0 combined small cell and squamous cell carcinoma the lung s/p chemorads and PCI (25Gy/10fx) in 2017 followed by PDL 1 inhibition. Recurrent Adenocarcinoma- with metastasis 07/2022, confirmed 11/2022- Adenocarcinoma- KRAS A146V, P53, PDL-1 100%, ALK, ROS-1, NTRK, Her-2 and RET fusions, BRAF negative. Guardant 360 08/2022: MICHAEL splice site SNV, JAYLIN. Now with single rt frontal brain metastasis HPI: The patient is a 58 year ol female who presents with above diagnosis, for an opinion regarding the role of radiation therapy in the management of the patient's disease. Final recommendations will be communicated back to the requesting physician by way of the shared medical record, or letter to requesting physician via US mail. DIAGNOSIS: Patient was dx with stage IIa combined small cell squamous cell cancer of the right upper lobe status post concurrent chemotherapy plus radiation to the chest completed 05/2017, carboplatin/etoposide through 07/2017. She received PCI to the brain 25 Gy/10 fractions completed 01/2018, followed by PDL 1 inhibition until March 2018. Patient recurred in her lungs in 06/2022 with enlarging TAM lesion. Repeat CT 07/2022 showed increasing lingular and RLL lesion. She underwent a bronch and EBUS and the lingula and 4L node are both positive for Adenocarcinoma, RLL also adenocarcinoma and both lesions have similar molecular characteristics with KRAS A146V mutation and no other abnormalities and PDL-1 100%. PET suggestive of distant metastasis, MRI Brain negative. Started Single agent Pembro 01/04/2023. PET 06/[address] 09/2023 no progression , PET 01/2024 no progression, MRI brain 01/2024 showed 0.8 cm new right frontal lesion with edema and symptoms. Currently on Dex 4 mg BID. She reports occasional migraines, B/l weakness when rising up. Gait instability with falls. Her last fall occurred last week and she hurt knee. Denies n/v,numbness/tingling, memory/WFD. She endorses decreased vision which she attributes to cataracts. ALLERGIES Allergen Reactions Penicillins Unknown MEDICATIONS: ondansetron (ZOFRAN) 8 mg tablet Take 1 tablet by mouth every 8 hours as needed for nausea/vomiting. prochlorperazine (COMPAZINE) 10 mg tablet Take 1 tablet by mouth every 6 hours as needed. benzonatate (TESSALON PERLE) 100 mg capsule take 1 capsule by mouth three times a day as needed for cough furosemide (LASIX) 20 mg tablet TAKE 1 TABLET BY MOUTH EVERY DAY dexAMETHasone (DECADRON) 4 mg tablet Take 1 tablet by mouth two times a day with meals. KLOR-CON M20 20 mEq tablet TAKE 1 TABLET BY MOUTH EVERY DAY folic acid 1 mg tablet take 1 tablet by mouth every day sucralfate (CARAFATE) 1 gram tablet take 1 tablet by mouth four times a day buprenorphine-naloxone (SUBOXONE) 8-2 mg film Dissolve under the tongue once daily. pantoprazole DR (PROTONIX) 40 mg tablet Take 1 tablet by mouth every 12 (twelve) hours. SUBOXONE 8-2 mg film Dissolve 1 Film under the tongue twice daily for 1 day. Do not start before November 23, 2022. aspirin, enteric coated (ASPIRIN, ENTERIC COATED) 81 mg EC tablet Take 81 mg by mouth once daily. atorvastatin (LIPITOR) 40 mg tablet Take 40 mg by mouth once daily. NURTEC ODT 75 mg disintegrating tablet DISSOLVE 1 TABLET ON THE TONGUE ONCE A DAY AT ONSET OF MIGRAINE ACETAMINOPHEN (TYLENOL ORAL) Take by mouth. PAST MEDICAL HISTORY Diagnosis Date Acute, but ill-defined, cerebrovascular disease 10/2021 Adenocarcinoma of left lung (HCC) 08/10/2022 4L and Lingula Arthritis Asthma Back pain chronic Carpal tunnel syndrome, bilateral s/p repair 2016 Current smoker DDD (degenerative disc disease), lumbar GERD (gastroesophageal reflux disease) Kidney stones Malignant neoplasm of lower lobe of right lung (HCC) 11/15/2022 Neck pain Neuropathy unclear origin- 6 months? saw neurologist (Dr. Hearn- In [facility]); possible MS? 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 Prior radiation therapy, collagen vascular disease, or inflammatory bowel disease: Yes RT to chest and brain Any implanted or external electric devices? No status: Post-menopausal. PAST SURGICAL HISTORY Procedure Laterality Date CARPAL TUNNEL CHOLECYSTECTOMY HX COLONOSCOPY HYSTERECTOMY HX Partial NOSE SURGERY HX FRACTURE PAST SURGICAL HISTORY OF CONE BIOPSY 1983 WEDGE RESECT LUNG Right 11/15/2022 VATS right lower lobe wedge resection, mediastinal lymph node sampling, intercostal nerve block FAMILY HISTORY Problem Relation Age of Onset Arthritis Mother Diabetes Mother Cancer Mother bowel, thyroid Hypertension Father other (cabg) Father Cancer Brother colon Cancer Brother colon other (leukemia) Brother Diabetes Sister Diabetes Sister Diabetes Sister SOCIAL HISTORY: Marital Status: Children: 4 adult children Occupation: not working now Tobacco Use: smoking since 11 years old, down to 4 cig/day Alcohol Use: no COMPLETE REVIEW OF SYSTEMS: GENERAL: no recent change in weight Neuro detailed: Headache: Yes Decreased visual acuity: Yes Diplopia: No Visual Field Changes: No Tinnitus: No Hearing loss: none Dysphagia: No Decreased balance: mild Arm/leg numbness: No Focal weakness: Yes Limb discoordination: Yes Disorientation: none Decreased concentration: none Memory changes: none Word finding difficulty: none Dysarthria: none Seizures: No Virtual encounter PHYSICAL EXAM: VS: There were no vitals taken for this visit. KPS: 80 Neuro function score (NFS): NFS 1 (Minor neurologic symptoms; fully active at home/work without assistance) General Appearance: Alert and oriented. No acute distress. Neck: Normal ROM. Chest: No respiratory distress. Neuro: Speech fluent. 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 Recurrent Adenocarcinoma- with metastasis 07/2022, confirmed 11/2022- Adenocarcinoma- KRAS A146V, P53, PDL-1 100%, ALK, ROS-1, NTRK, Her-2 and RET fusions, BRAF negative. Guardant 360 08/2022: MICHAEL splice site SNV, JAYLIN. Now with single rt frontal brain metastasis. She is an appropriate candidate for GKRS. The rationale, risks, acute/late side effects, benefits, mechanics, personnel and alternatives were reviewed in detail with the patient . All questions were answered to her satisfaction. The patient signed informed consent agrees to proceed with simulation and treatment. A total of 30 minutes were spent with the patient of which over 50% was spent discussing treatment recommendations. Head frame/mask will be used. Radiosurgery will be done in a single fraction using the Gamma Knife Icon system, which uses up to 192 beams of radiation. A head CT and brain MRI will be performed the day of the procedure. The images will be co registered for target contouring and treatment planning. The CT scan is necessary to correct for the spatial distortion of the MRI. Both scans will be evaluated by a radiologist and the results will be discussed with the patient. Signed by: Jessika Carter MD cc: To use this Smartlink, specify the provider ID whose address you want to display, e.g., .[email or web address][1 (where 1 is the provider ID). Arya Rdz [address] [place] [address] [place] [id number] [facility] documented in this encounter [facility] 02-07-2024 History of Present illness Narrative Images from the original note were not included. NAME: Debby Hermosillo NO.: [id number] DATE OF SERVICE: January 12, 2024 (Reba) Some elements in this clinic note that are critical to medical decision making have been carefully reviewed and included from a prior clinic note dated: December 27, 2023 (Reba) Referring Provider: Stacy Adhikari MD Additional Clinicians involved in Debby Hermosillo's care: DIAGNOSIS: 1. 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 Previously managed by Dr. Beaver 2. Recurrent Adenocarcinoma- Stage IV 07/2022, confirmed 11/2022- Adenocarcinoma- KRAS A146V, P53, PDL-1 100%, ALK, ROS-1, NTRK, Her-2 and RET fusions, BRAF negative. Guardant 360 08/2022: MICHAEL splice site SNV, JAYLIN ASSESSMENT: 58 year old female here for follow up. 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 06/2022 with enlarging TAM opacity has enlarged, PET scan confirms that the lesion is PET avid and does not detail any additional sites of disease. Patient was presented at the tumor board and repeat CT 07/2022 with increasing lingular and RLL lesion. She underwent a bronch and EBUS and the lingula and 4L node are both positive for Adenocarcinoma, RLL also adenocarcinoma and both lesions have similar molecular characteristics with KRAS A146V mutation and no other abnormalities and PDL-1 100%. PET with stage IV disease and MRI Brain negative. Started Single agent Pembro 01/04/2023. PET 06/[address] 09/2023 no progression , PET 01/2024 no progression, MRI brain 01/2024 with new right frontal lesion with edema and symptoms. Currently on Dex 4 mg BID and seeing [facility] team on 02/15/2024. She did have PCI in 2018 when she had small cell lung cancer. She will continue with her systemic treatment with Keytruda today and every 6 weeks. I would like her to return in 3 weeks for follow up and labs only. HPI: CASE HISTORY: Reverse Chronological Order 01/26/2024 - MRI brain: Interval development of a 0.8 x 0.7 cm cortical/subcortical rim-enhancing lesion with mild surrounding vasogenic edema in the right frontal lobe since 04/27/2023, suggestive of intracranial metastasis. 01/12/2024 - PET/CT: PRIMARY DISEASE SITE: * Stable treatment changes in the right upper lobe without hypermetabolic recurrence. JUAN ANTONIO DISEASE: * No metabolically active regional lymphadenopathy. METASTATIC DISEASE: * No metabolically active distant metastases. ADDITIONAL FINDINGS: * Mild uptake in the musculature surrounding the right ischium, likely strain or trauma. 09/28/2023 - CT CAP: Chest: Stable appearance of posttreatment change/treated neoplasm in the right upper lobe. Within the posterior right lower lobe, there is an area of nodularity measuring 8 x 6 mm. This is new when compared to the prior chest CT from 10/31/2022 but is stable when compared to the PET/CT from 06/14/2023. This was not FDG avid on the prior PET/CT. This abuts a linear opacity. Therefore, it is possible that this representing nodular component of atelectasis. Would advise continued close imaging surveillance and attention to this region. Additionally, there are stable groundglass opacities in the right middle lobe which should undergo continued close imaging surveillance. No significant thoracic adenopathy. A/P: No evidence of metastatic disease in the abdomen or pelvis. 06/14/2023 - PET/CT: No FDG avid neoplastic process. 04/27/2023 - MRI Brain: No convincing evidence for metastatic disease Chronic, diffuse white matter changes are seen 03/01/2023 - PET/CT: HEAD and NECK: No evidence of focal uptake to suggest FDG avid neoplastic process.. CHEST: Status post resection of FDG avid nodules in the lingula and right lower lobe with residual inflammatory changes. Recommend follow-up with CT to rule out residual disease. ABDOMEN/PELVIS: No evidence of focal uptake to suggest FDG avid neoplastic process.. EXTREMITIES/SKELETON: No evidence of focal uptake to suggest FDG avid neoplastic process.. 01/04/2023-Current - Keytruda q 6 weeks 12/2022 - PET/CT: HEAD/NECK: No FDG avid neoplastic process. CHEST: Enlarging FDG avid lingular nodule, bronchoscopy proven adenocarcinoma FDG avid left mediastinal lymph nodes, likely metastatic Postoperative changes right lower lobe wedge resection. Uptake near the site of resection, likely related to posttherapy changes and healing. Attention on follow-up CT scan of the chest. Stable posttreatment changes within right upper lobe ABDOMEN/PELVIS: No FDG avid neoplastic process. BONES/EXTREMITIES: New focus of FDG uptake in right gluteal musculature, concerning for metastasis No suspicious FDG avid osseous lesion. 12/2022 - MRI Brain: No acute intracranial process is noted. No evidence of metastasis in the current study. 07/2022 - Bronch Lingula and 4L: A - TRANSBRONCHIAL FINE-NEEDLE ASPIRATION - LINGULA NODULE - Positive for malignant cells. - Adenocarcinoma. B - EBUS TRANSBRONCHIAL FINE NEEDLE ASPIRATE, LYMPH NODE - 4L - Positive for malignant cells. - Adenocarcinoma. 07/2022 - CT Chest: Few small groundglass and solid pulmonary nodules are noted. At least two of the solid nodules in the lingula and right lower lobe have increased in size since 06/23/2022 and are concerning for neoplastic/metastatic disease. No new or increasing intrathoracic lymphadenopathy is noted. 07/2022 - PET/CT: Neck: No suspicious hypermetabolic foci Chest: Hypermetabolic nodule in the left upper lobe suspicious for neoplasm. No hypermetabolic lymphadenopathy. Abdomen and pelvis: No evidence of FDG avid neoplastic process Skeleton: No hypermetabolic osseous lesions 06/2022 - MRI Brain: No evidence of metastatic disease No suspicious findings 06/2022 - CT Chest: New mild reticulonodular opacities in the right lower lobe most likely infectious/inflammatory in etiology. Superimposed neoplasm cannot be excluded. 8 mm left upper lobe nodular opacity increased in size since 03/31/22, worrisome for neoplasm. Other subcentimeter nodular opacities and groundglass opacities are stable. 03/2022 - CT CAP: Chest: Interval development of a new 5 mm nodule in the right lower lobe. This may be infectious/inflammatory or neoplastic in nature. Recommend continued attention to this area on follow-up exams. Stable appearance of 6 mm groundglass opacity in the right middle lobe. An additional 4 mm groundglass opacity more inferiorly in the right middle lobe appears slightly less conspicuous when compared to prior study. Stable bandlike and nodular consolidative opacity in the right upper lobe and right suprahilar region, in keeping with postradiation fibrosis. A/P: No evidence of metastatic disease in the abdomen or pelvis. Moderate biliary ductal dilation, similar in appearance to prior CT chest, but new when compared to prior PET/CT. No obstructing calculus or mass is visualized. Nonobstructive nephrolithiasis in the right kidney. 09/21/2021 - MRI Brain: 5mm focus of restricted diffusion in the left parietal lobe. An acute infarct should be considered. No enhancing mass to suggest metastatic disease to the brain. 08/2021 - CT Chest: Mild patchy airspace opacification within the lingula, favored to be infectious/inflammation. Continued attention on subsequent studies is suggested. Since 02/25/2021, unchanged groundglass opacities within the right middle lobe measuring up to 0.5 cm. 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 Unchanged moderate intrahepatic biliary ductal dilatation. 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 Possibly related to prior treatment for lung cancer. No acute infarct No enhancing mass to suggest metastatic disease to the brain 02/2021 - CT Chest: Right upper lobe post radiation change, increased since 08/07/20, now obscuring the previously described reticulonodular opacity. Other small subcentimeter groundglass opacities in the right lung, Stable. 08/12/2020 - CT Chest: No interval change since 01/17/2020. 1.3 x 0.7 cm right upper lobe nodular opacity, most likely the known primary neoplasm, stable Adjacent right upper lobe patchy opacities most likely related to post radiation change or other infectious/inflammatory etiologies, stable. Other small subcentimeter groundglass opacities in the right lung, stable. 01/20/2020 - CT Chest: Interval decrease in size of right upper lobe nodular opacity, now measuring 1.5 cm in size. Slight interval increase in surrounding groundglass and reticular opacities, likely on the basis of posttreatment change. No evidence of bulky intrathoracic lymphadenopathy. 07/18/2019 - PET/CT: NECK: NO FDG AVID NEOPLASTIC PROCESS.. CHEST: NO FDG AVID NEOPLASTIC PROCESS. 1.4 X 0.9 CM HYPOMETABOLIC RIGHT UPPER LOBE NODULE WITH ADJACENT PARENCHYMAL SCARRING LATERALLY, IMPROVED SINCE 01/09/2019. FINDINGS ARE COMPATIBLE WITH SATISFACTORY RESPONSE OF TREATED RIGHT UPPER LOBE NODULE POST CHEMORADIATION. 0.6 CM AND 0.4 CM FAINT RIGHT MIDDLE LOBE GROUNDGLASS ATTENUATION DENSITIES, STABLE SINCE 09/12/2017. ABDOMEN/PELVIS: NO FDG AVID NEOPLASTIC PROCESS. EXTREMITIES/SKELETON: NO SUSPICIOUS FDG AVID OSSEOUS LESION. 04/09/2018 - Discontinued Imfinzi per Dr. Beaver due to pancreatitis 01/16/2018-01/30/2024 - PCI whole brain 2500 cGy in [address] Carrero 03/24/2017-07/12/2017 - Concurrent carboplatin and etoposide (5 cycles) 03/24/2017-05/17/2017 - Concurrent radiation Updated Visit, February 07, 2024: Debby returns for follow up. The patient rescheduled her MRI brain multiple times and it was finally done on 01/25 and showed a new right frontal lesion with some vasogenic edema. She is on dex 4 mg BID. She is scheduled to see [facility] team 02/14. She has had multiple falls and her family finds her laying on the floor and she doesn't remember how she got there. She also was driving her son to work and got lost and didn't know how to get home. She did have some diarrhea for 2-3 weeks liquid stools 4-5 times a day. It went away on its own. She is eating and drinking okay. She does have some vision changes. She is no longer driving. No pain. Updated Visit, January 12, 2024: Debby returns for a follow up. She has her MRI of the brain scheduled for 01/14. Final reading of today's PET/CT are in process - on my initial view, I do not see any cause for concern. For the past 1.5 months, she has not had the strength to get back up after bending over. She endorses difficulty driving in the dark - recommended she follow up with her tube coater. Updated Visit, December 27, 2023: Debby returns for a follow up. She reports about 3 weeks ago, her found her asleep on the floor but she does not remember how she got there. Her elbows had wounds indicative of a fall - healed now. She complains of buttock pain, similar to a pain she had in the past. I will order a PET/CT and MRI of the brain to evaluate her symptoms. Her potassium is low on her labs today - she was prescribed a supplement. She says it caused abnormal sleeping habits and she discontinued use thinking it caused her fall. Her 4 children are her closest support system, she talks to them every day. Initial Visit, November 15, 2023: Transition of Care Debby Hermosillo presents today to transition her care as her previous provider left the practice. Doing well. Will need to re-scan in December Still smokes 4 cigs / day. Thyroid is starting to show hypothyroidism as an AE to Keytruda - will wait to correct with next lab test. - mother had thyroid cancer More tired than usual - especially in afternoon. October 03, 2023: Debby Hermosillo is a 58 year old year old female here for follow up. She is doing well and denies any rash, diarrhea and or SOB and or cough. She has had loss of appetite. REVIEW OF SYSTEMS Per HPI and otherwise negative by full review of organ systems. ECOG PERFORMANCE STATUS: 1 PHYSICAL EXAMINATION: Vitals: BP 184/75[recheck BP[ Pulse 85 Temp (Src) 96.7 (Temporal) Resp 16 Ht 5' .433 (1.54m) Wt 83 lb 12.4 oz (38.0kg) SpO2 98% BMI 16.13 kg/(m^2). Body surface area is 1.27 meters squared. General: Alert and oriented, no distress, pleasant and cooperative. Heart: Regular, normal S1 and S2, no murmurs, rubs, or gallops Lungs: Clear to auscultation bilaterally Abdomen: Benign Extremities: Feet/ankles without edema, posterior tibial pulses full and symmetrical ALLERGIES: ALLERGIES Allergen Reactions Penicillins Unknown MEDICATIONS: ondansetron (ZOFRAN) 8 mg tablet Take 1 tablet by mouth every 8 hours as needed for nausea/vomiting. prochlorperazine (COMPAZINE) 10 mg tablet Take 1 tablet by mouth every 6 hours as needed. benzonatate (TESSALON PERLE) 100 mg capsule take 1 capsule by mouth three times a day as needed for cough furosemide (LASIX) 20 mg tablet TAKE 1 TABLET BY MOUTH EVERY DAY dexAMETHasone (DECADRON) 4 mg tablet Take 1 tablet by mouth two times a day with meals. KLOR-CON M20 20 mEq tablet TAKE 1 TABLET BY MOUTH EVERY DAY folic acid 1 mg tablet take 1 tablet by mouth every day sucralfate (CARAFATE) 1 gram tablet take 1 tablet by mouth four times a day buprenorphine-naloxone (SUBOXONE) 8-2 mg film Dissolve under the tongue once daily. pantoprazole DR (PROTONIX) 40 mg tablet Take 1 tablet by mouth every 12 (twelve) hours. SUBOXONE 8-2 mg film Dissolve 1 Film under the tongue twice daily for 1 day. Do not start before November 23, 2022. aspirin, enteric coated (ASPIRIN, ENTERIC COATED) 81 mg EC tablet Take 81 mg by mouth once daily. atorvastatin (LIPITOR) 40 mg tablet Take 40 mg by mouth once daily. NURTEC ODT 75 mg disintegrating tablet DISSOLVE 1 TABLET ON THE TONGUE ONCE A DAY AT ONSET OF MIGRAINE ACETAMINOPHEN (TYLENOL ORAL) Take by mouth. LABORATORY VALUES: WBC (k/uL) Date Value 02/07/2024 11.43 (H) RBC (m/uL) Date Value 02/07/2024 3.50 (L) Hemoglobin (g/dL) Date Value 02/07/2024 13.1 Hematocrit (%) Date Value 02/07/2024 38.5 MCV (fL) Date Value 02/07/2024 110.0 (H) MCH (pg) Date Value 02/07/2024 37.4 (H) MCHC (g/dL) Date Value 02/07/2024 34.0 RDW-CV (%) Date Value 02/07/2024 13.2 Platelet Count (k/uL) Date Value 02/07/2024 241 MPV (fL) Date Value 02/07/2024 9.5 Glucose (mg/dL) Date Value 02/07/2024 144 (H) BUN (mg/dL) Date Value 02/07/2024 26 (H) Creatinine (mg/dL) Date Value 02/07/2024 0.57 (L) Sodium (mmol/L) Date Value 02/07/2024 133 (L) Potassium (mmol/L) Date Value 02/07/2024 4.4 Chloride (mmol/L) Date Value 02/07/2024 94 (L) CO2 (mmol/L) Date Value 02/07/2024 28 Protein, Total (g/dL) Date Value 02/07/2024 6.7 Albumin (g/dL) Date Value 02/07/2024 4.4 Calcium, Total (mg/dL) Date Value 02/07/2024 9.6 Alkaline Phosphatase (U/L) Date Value 02/07/2024 93 Bilirubin, Total (mg/dL) Date Value 02/07/2024 0.3 AST (U/L) Date Value 02/07/2024 14 ALT (U/L) Date Value 02/07/2024 16 DIAGNOSIS: (C71.1) 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) (primary encounter diagnosis) Plan: COMPREHENSIVE METABOLIC PANEL, COMPLETE BLOOD COUNT AND DIFFERENTIAL, THYROID STIMULATING HORMONE (C34.00) Malignant neoplasm of hilus of lung, unspecified laterality (HCC) Plan: COMPREHENSIVE METABOLIC PANEL, COMPLETE BLOOD COUNT AND DIFFERENTIAL, THYROID STIMULATING HORMONE (R53.81, R53.83) Malaise and fatigue Plan: COMPREHENSIVE METABOLIC PANEL, COMPLETE BLOOD COUNT AND DIFFERENTIAL, THYROID STIMULATING HORMONE PAST MEDICAL HISTORY Diagnosis Date Acute, but ill-defined, cerebrovascular disease 10/2021 Adenocarcinoma of left lung (HCC) 08/10/2022 4L and Lingula Arthritis Asthma Back pain chronic Carpal tunnel syndrome, bilateral s/p repair - 2016 Current smoker DDD (degenerative disc disease), lumbar GERD (gastroesophageal reflux disease) Kidney stones Malignant neoplasm of lower lobe of right lung (HCC) 11/15/2022 Neck pain Neuropathy unclear origin- 6 months? saw neurologist (Dr. Haern- In [facility]); possible MS? 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 PAST SURGICAL HISTORY Procedure Laterality Date CARPAL TUNNEL CHOLECYSTECTOMY HX COLONOSCOPY HYSTERECTOMY HX Partial NOSE SURGERY HX FRACTURE PAST SURGICAL HISTORY OF CONE BIOPSY 1983 WEDGE RESECT LUNG Right 11/15/2022 VATS right lower lobe wedge resection, mediastinal lymph node sampling, intercostal nerve block Social History Tobacco Use Smoking status: Every Day Current packs/day: 1.50 Average packs/day: 1.5 packs/day for 45.0 years (67.5 ttl pk-yrs) Types: Cigarettes Smokeless tobacco: Never Tobacco comments: 4 cigs per day Vaping Use Vaping status: Never Used Substance Use Topics Alcohol use: No Drug use: Yes Frequency: 1.0 times per week Types: Marijuana Comment: previous marijuana FAMILY HISTORY Problem Relation Age of Onset Arthritis Mother Diabetes Mother Cancer Mother bowel, thyroid Hypertension Father other (cabg) Father Cancer Brother colon Cancer Brother colon other (leukemia) Brother Diabetes Sister Diabetes Sister Diabetes Sister I spent a total of 47 minutes on the date of the service which included preparing to see the patient, [id number] patient care, completing clinical documentation, performing a medically appropriate examination, counseling and educating the patient/family/caregiver, ordering medications, tests, or procedures, independently interpreting results (not separately reported), communicating results to the patient/family/caregiver, and care coordination (not separately reported). Noemí Jolley PA-C Hematology and Oncology Services Provided at: [place], [place] CC: Milton Madison MD documented in this encounter [facility] 02-07-2024 Note [facility] 02-06-2024 Telephone encounter Note Patient has been scheduled on 02/14 per patient's chart and scheduling spoke w/ patient. Briseyda Ewing [facility] 02-06-2024 Miscellaneous Notes Patient has been scheduled on 02/14 per patient's chart and scheduling spoke w/ patient. Briseyda Ewing I called and left a message on 's voicemail requesting a call back. Mila Briscoe, RN Stephen Álvarez, Do you have an update with this patient? Thanks! Briseyda Ewing Can we check on this? Nothing has been scheduled. Noemí Jolley PA-C Sent message to Preeti Moore with patient information.Also sent message to scheduling [place] Please refer patient to [facility] knife center for new frontal lobe lesion. I tried to message Dr. Turner, but she has not gotten back to me. THe patient is symptomatic and needs seen. Noemí Jolley PA-C documented in this encounter [facility] 02-06-2024 Telephone encounter Note Spoke to patient and scheduled both appointments for 02/14. Windy Curiel [facility] 02-06-2024 Miscellaneous Notes Spoke to patient and scheduled both appointments for 02/14. Windy Curiel Images from the original note were not included. Time Frame: EXPEDITE Provider: Yue / Lon / Mohsen / Argenis / Jacinto AND Rad/Onc Referring: Noemí Jolley PA-C/ Arya Rdz MD Dx: Brain mets - GK consult -------- Order CONSULT TO NEUROSURGERY [[id number]] (Order [id number]) Patient Info Patient Name Sex Debby Hedrick ([id number]) Female 1965 Order Information Date and Time Department Ordering/Authorizing 02/02/2024 3:17 PM Popeye Noemí Bhakta Order Providers Authorizing Provider Encounter Provider Noemí Jolley PA-C Musser, Mindy M, PA-C Future Order Information Expires 02/01/25 Associated Diagnoses 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) [C71.1] Comments [facility] Reason for Exam Priority: Routine Dx: 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) [C71.1 (ICD-10-CM)] Comments: [facility] Order Questions Question Answer [facility] Epic access? Yes [facility] Brain Tumor ADT-Related Order Information Priority and Order Details Priority Class Routine Sammy Internal Referral Order History Outpatient Date/Time Action Taken User Additional Information 02/02/24 1517 Sign Noemí Jolley PA-C Detailed Information Referral Reprint Requisition CONSULT TO NEUROSURGERY (Order#[id number]) on 02/02/24 documented in this encounter [facility] 02-06-2024 Telephone encounter Note Images from the original note were not included. Time Frame: EXPEDITE Provider: Yue / Lon / Mohsen / Argenis / Jacinto AND Rad/Onc Referring: Noemí Jolley PA-C/ Arya Rdz MD Dx: Brain mets - GK consult -------- [facility] 02-06-2024 Telephone encounter Note Order CONSULT TO NEUROSURGERY [[id number]] (Order [id number]) Patient Info Patient Name Sex Debby Hedrick ([id number]) Female 1965 Order Information Date and Time Department Ordering/Authorizing 02/02/2024 3:17 PM Noemí Atkinson Order Providers Authorizing Provider Encounter Provider Noemí Jolley PA-C Musser, Mindy M, PA-C Future Order Information Expires 02/01/25 Associated Diagnoses 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) [C71.1] Comments [facility] Reason for Exam Priority: Routine Dx: 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) [C71.1 (ICD-10-CM)] Comments: [facility] Order Questions Question Answer [facility] Epic access? Yes [facility] Brain Tumor ADT-Related Order Information Priority and Order Details Priority Class Routine Sammy Internal Referral Order History Outpatient Date/Time Action Taken User Additional Information 02/02/24 1517 Sign Noemí Jolley PA-C Detailed Information Referral Reprint Requisition CONSULT TO NEUROSURGERY (Order#[id number]) on 02/02/24 [facility] 02-06-2024 Telephone encounter Note I called and left a message on 's [employer] requesting a call back. Mila Briscoe RN [facility] Work Phone: 02-06-2024 Telephone encounter Note Stephen Álvarez, Do you have an update with this patient? Thanks! Briseyda Ewing [facility] 02-06-2024 Telephone encounter Note Can we check on this? Nothing has been scheduled. Noemí Jolley PA-C [facility] 02-02-2024 Telephone encounter Note Patient Debby Hermosillo Patient prefers to do virtual at her home. new frontal lobe lesion. [facility] 02-02-2024 Miscellaneous Notes Patient Debby Hermosillo Patient prefers to do virtual at her home. new frontal lobe lesion. documented in this encounter [facility] 02-02-2024 Telephone encounter Note Sent message to Preeti Moore with patient information.Also sent message to scheduling pool [facility] 02-02-2024 Telephone encounter Note Please refer patient to gamma knife center for new frontal lobe lesion. I tried to message Dr. Turner, but she has not gotten back to me. THe patient is symptomatic and needs seen. Noemí Jolley PA-C [facility] 02-01-2024 Telephone encounter Note Your seeing this patient 02/07/24 for lab/TX. Her Q6 week CBC, CMP was used 01/11. The rest of her orders we can use, but can you place new orders for those 2 tests? Thank you, Milagros Connor MLT [facility] 02-01-2024 Miscellaneous Notes Your seeing this patient 02/07/24 for lab/TX. Her Q6 week CBC, CMP was used 01/11. The rest of her orders we can use, but can you place new orders for those 2 tests? Thank you, Milagros Connor MLT documented in this encounter [facility] 01-31-2024 Telephone encounter Note Pt notified and is agreeable to this. Mila Briscoe RN [facility] Work Phone: 01-31-2024 Miscellaneous Notes Pt notified and is agreeable to this. Mila Briscoe RN I would recommend she does not drive until she is evaluated by Neurosurgery and treated for this brain lesion. Dex script sent. Noemí Jolley PA-C Call placed to pt and results discussed with her. Pt is very tearful on the phone and states she's upset that her cancer is no longer curable. Pt state she's had several falls over the last few weeks, her has found her laying on the ground and she doesn't remember how she got there, what happened, or where she's at. Pt states she has some cuts and bruises on her body and she feels they're most likely from the falls. Pt took her son to work a couple nights ago and ended up 5 miles away from their home and she didn't know where she was, how she got there, or how to get home. Pt also states she's had a terrible migraine for a couple of weeks and she's been taking migraine medicine with no relief. Pt c/o blurry vision, especially at night. Pt also admits to confusion often, not knowing where she's at or what she's doing. Notified pt that script for dex will be sent to her pharmacy, and that we are awaiting on a response from Dr Turner as to next steps. Pt aware we will be calling her as soon as we hear from Yue. MM: please sign pending script to go to [facility] Mila Briscoe RN LM on for patient to call back to review recent MRI brain results which show small mass in right frontal lobe with vasogenic edema. Dr. Abhyankar would like her started on Dexamethasone 4 mg BID and I am sending a message to Dr. Turner about getting her in for possible gamma knife radiosurgery. Please assess patient's current symptoms as well if she calls back. I also need to know which pharmacy to send Dex to. Noemí Jolley PA-C documented in this encounter [facility] 01-31-2024 Telephone encounter Note The patient calls in for refills of Nurtec. States that she has a brain tumor and has a hard time getting out of the house and has to rely on someone bringing her to her appts. Last seen 12/22/2023 with request for 4 wk f/u. Pt has been scheduled for an appt on 02/20/2024 for f/u. Okay to send meds? Patient is almost out. [facility] 01-31-2024 Miscellaneous Notes The patient calls in for refills of Nurtec. States that she has a brain tumor and has a hard time getting out of the house and has to rely on someone bringing her to her appts. Last seen 12/22/2023 with request for 4 wk f/u. Pt has been scheduled for an appt on 02/20/2024 for f/u. Okay to send meds? Patient is almost out. documented in this encounter [facility] 01-31-2024 Telephone encounter Note I would recommend she does not drive until she is evaluated by Neurosurgery and treated for this brain lesion. Dex script sent. Noemí Jolley PA-C [facility] 01-31-2024 Telephone encounter Note Call placed to pt and results discussed with her. Pt is very tearful on the phone and states she's upset that her cancer is no longer curable. Pt state she's had several falls over the last few weeks, her has found her laying on the ground and she doesn't remember how she got there, what happened, or where she's at. Pt states she has some cuts and bruises on her body and she feels they're most likely from the falls. Pt took her son to work a couple nights ago and ended up 5 miles away from their home and she didn't know where she was, how she got there, or how to get home. Pt also states she's had a terrible migraine for a couple of weeks and she's been taking migraine medicine with no relief. Pt c/o blurry vision, especially at night. Pt also admits to confusion often, not knowing where she's at or what she's doing. Notified pt that script for dex will be sent to her pharmacy, and that we are awaiting on a response from Dr Turner as to next steps. Pt aware we will be calling her as soon as we hear from Yue. MM: please sign pending script to go to [facility] Mila Briscoe RN [facility] 01-31-2024 Telephone encounter Note LM on for patient to call back to review recent MRI brain results which show small mass in right frontal lobe with vasogenic edema. Dr. Rdz would like her started on Dexamethasone 4 mg BID and I am sending a message to Dr. Turner about getting her in for possible gamma knife radiosurgery. Please assess patient's current symptoms as well if she calls back. I also need to know which pharmacy to send Dex to. Noemí Jolley PA-C [facility] 01-23-2024 Telephone encounter Note She is now scheduled for MRI on 01/26/24 at 1:00. [facility] 01-23-2024 Miscellaneous Notes She is now scheduled for MRI on 01/26/24 at 1:00. Spoke with pt. She is going to obtain Immodium and take as directed. She has compazine and Zofran, previously prescribed. Encouraged to take one, 1 hour prior to MRI, if continued nausea can take other medication 30 minutes prior to MRI. They are hoping to rescheduled to end of this week. Ariel : any further recommendations or changes to above? Angella Malloy RN I'm not sure what she is requesting - would you mind calling her to clarify? documented in this encounter [facility] 01-23-2024 Telephone encounter Note Spoke with pt. She is going to obtain Immodium and take as directed. She has compazine and Zofran, previously prescribed. Encouraged to take one, 1 hour prior to MRI, if continued nausea can take other medication 30 minutes prior to MRI. They are hoping to rescheduled to end of this week. Ariel : any further recommendations or changes to above? Angella Malloy RN [facility] 01-23-2024 Telephone encounter Note I'm not sure what she is requesting - would you mind calling her to clarify? [facility] 01-15-2024 Telephone encounter Note Patient has re-scheduled her MRI again to 01-23-24 @ 1:00. [facility] 01-15-2024 Miscellaneous Notes Patient has re-scheduled her MRI again to 01-23-24 @ 1:00. MRI has been re-scheduled again to 01/15/24 @ 8:00. Racheal: can you get results of MRI at [facility]. She was going to have it on 01/09 Thanks Mila Briscoe RN Images from the original note were not included. Patient has rescheduled her MRI again to 01-10-24 at 1:00 MRI was rescheduled to 01/03/24 @ 9am. Racheal: can you see if there's results on [place] portal? Thanks Mila Briscoe, ALLYSSA Patient has been scheduled for STAT MRI Brain tomorrow 12/27 @ 5 pm at [facility]. Briseyda Ewing documented in this encounter [facility] 01-12-2024 Telephone encounter Note MRI has been re-scheduled again to 01/15/24 @ 8:00. [facility] 01-12-2024 Telephone encounter Note Racheal: can you get results of MRI at [place] please. She was going to have it on 01/09 Thanks Mila Briscoe, RN [facility] Work Phone: 01-12-2024 Telephone encounter Note Images from the original note were not included. [facility] 01-12-2024 Instructions Marina Castro - 01/12/2024 2:56 PM EDT Keep MRI Brain as scheduled on 01/15/2024 Mila Briscoe to call with results of PET and MRI RTC in 4 weeks for Keytruda C6 Labs same day May need to start Synthroid Continue potassium supplement daily documented in this encounter [facility] 01-12-2024 History of Present illness Narrative Images from the original note were not included. NAME: Debby Hermosillo CLINIC NO.: [id number] DATE OF SERVICE: January 12, 2024 (Reba) Some elements in this clinic note that are critical to medical decision making have been carefully reviewed and included from a prior clinic note dated: December 27, 2023 (Reba) Referring Provider: Stacy Adhikari MD Additional Clinicians involved in Debby Hermosillo's care: DIAGNOSIS: 1. 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 Previously managed by Dr. Beaver 2. Recurrent Adenocarcinoma- Stage IV 07/2022, confirmed 11/2022- Adenocarcinoma- KRAS A146V, P53, PDL-1 100%, ALK, ROS-1, NTRK, Her-2 and RET fusions, BRAF negative. Guardant 360 08/2022: MICHAEL splice site SNV, JAYLIN ASSESSMENT: 58 year old female here for follow up. 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 06/2022 with enlarging TAM opacity has enlarged, PET scan confirms that the lesion is PET avid and does not detail any additional sites of disease. Patient was presented at the tumor board and repeat CT 07/2022 with increasing lingular and RLL lesion. She underwent a bronch and EBUS and the lingula and 4L node are both positive for Adenocarcinoma, RLL also adenocarcinoma and both lesions have similar molecular characteristics with KRAS A146V mutation and no other abnormalities and PDL-1 100%. PET with stage IV disease and MRI Brain negative. Started Single agent Pembro 01/04/2023. PET 06/[address] 09/2023 no progression , will continue Keytruda q 6 weeks PLAN: Keep MRI Brain as scheduled on 01/15/2024 Mila Briscoe to call with results of PET and MRI RTC in 4 weeks for Keytruda C6 Labs same day May need to start Synthroid Continue potassium supplement daily HPI: CASE HISTORY: Reverse Chronological Order 01/12/2024 - PET/CT: PRIMARY DISEASE SITE: * Stable treatment changes in the right upper lobe without hypermetabolic recurrence. JUAN ANTONIO DISEASE: * No metabolically active regional lymphadenopathy. METASTATIC DISEASE: * No metabolically active distant metastases. ADDITIONAL FINDINGS: * Mild uptake in the musculature surrounding the right ischium, likely strain or trauma. 09/28/2023 - CT CAP: Chest: Stable appearance of posttreatment change/treated neoplasm in the right upper lobe. Within the posterior right lower lobe, there is an area of nodularity measuring 8 x 6 mm. This is new when compared to the prior chest CT from 10/31/2022 but is stable when compared to the PET/CT from 06/14/2023. This was not FDG avid on the prior PET/CT. This abuts a linear opacity. Therefore, it is possible that this representing nodular component of atelectasis. Would advise continued close imaging surveillance and attention to this region. Additionally, there are stable groundglass opacities in the right middle lobe which should undergo continued close imaging surveillance. No significant thoracic adenopathy. A/P: No evidence of metastatic disease in the abdomen or pelvis. 06/14/2023 - PET/CT: No FDG avid neoplastic process. 04/27/2023 - MRI Brain: No convincing evidence for metastatic disease Chronic, diffuse white matter changes are seen 03/01/2023 - PET/CT: HEAD and NECK: No evidence of focal uptake to suggest FDG avid neoplastic process.. CHEST: Status post resection of FDG avid nodules in the lingula and right lower lobe with residual inflammatory changes. Recommend follow-up with CT to rule out residual disease. ABDOMEN/PELVIS: No evidence of focal uptake to suggest FDG avid neoplastic process.. EXTREMITIES/SKELETON: No evidence of focal uptake to suggest FDG avid neoplastic process.. 01/04/2023-Current - Keytruda q 6 weeks 12/2022 - PET/CT: HEAD/NECK: No FDG avid neoplastic process. CHEST: Enlarging FDG avid lingular nodule, bronchoscopy proven adenocarcinoma FDG avid left mediastinal lymph nodes, likely metastatic Postoperative changes right lower lobe wedge resection. Uptake near the site of resection, likely related to posttherapy changes and healing. Attention on follow-up CT scan of the chest. Stable posttreatment changes within right upper lobe ABDOMEN/PELVIS: No FDG avid neoplastic process. BONES/EXTREMITIES: New focus of FDG uptake in right gluteal musculature, concerning for metastasis No suspicious FDG avid osseous lesion. 12/2022 - MRI Brain: No acute intracranial process is noted. No evidence of metastasis in the current study. 07/2022 - Bronch Lingula and 4L: A - TRANSBRONCHIAL FINE-NEEDLE ASPIRATION - LINGULA NODULE - Positive for malignant cells. - Adenocarcinoma. B - EBUS TRANSBRONCHIAL FINE NEEDLE ASPIRATE, LYMPH NODE - 4L - Positive for malignant cells. - Adenocarcinoma. 07/2022 - CT Chest: Few small groundglass and solid pulmonary nodules are noted. At least two of the solid nodules in the lingula and right lower lobe have increased in size since 06/23/2022 and are concerning for neoplastic/metastatic disease. No new or increasing intrathoracic lymphadenopathy is noted. 07/2022 - PET/CT: Neck: No suspicious hypermetabolic foci Chest: Hypermetabolic nodule in the left upper lobe suspicious for neoplasm. No hypermetabolic lymphadenopathy. Abdomen and pelvis: No evidence of FDG avid neoplastic process Skeleton: No hypermetabolic osseous lesions 06/2022 - MRI Brain: No evidence of metastatic disease No suspicious findings 06/2022 - CT Chest: New mild reticulonodular opacities in the right lower lobe most likely infectious/inflammatory in etiology. Superimposed neoplasm cannot be excluded. 8 mm left upper lobe nodular opacity increased in size since 03/31/22, worrisome for neoplasm. Other subcentimeter nodular opacities and groundglass opacities are stable. 03/2022 - CT CAP: Chest: Interval development of a new 5 mm nodule in the right lower lobe. This may be infectious/inflammatory or neoplastic in nature. Recommend continued attention to this area on follow-up exams. Stable appearance of 6 mm groundglass opacity in the right middle lobe. An additional 4 mm groundglass opacity more inferiorly in the right middle lobe appears slightly less conspicuous when compared to prior study. Stable bandlike and nodular consolidative opacity in the right upper lobe and right suprahilar region, in keeping with postradiation fibrosis. A/P: No evidence of metastatic disease in the abdomen or pelvis. Moderate biliary ductal dilation, similar in appearance to prior CT chest, but new when compared to prior PET/CT. No obstructing calculus or mass is visualized. Nonobstructive nephrolithiasis in the right kidney. 09/21/2021 - MRI Brain: 5mm focus of restricted diffusion in the left parietal lobe. An acute infarct should be considered. No enhancing mass to suggest metastatic disease to the brain. 08/2021 - CT Chest: Mild patchy airspace opacification within the lingula, favored to be infectious/inflammation. Continued attention on subsequent studies is suggested. Since 02/25/2021, unchanged groundglass opacities within the right middle lobe measuring up to 0.5 cm. 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 Unchanged moderate intrahepatic biliary ductal dilatation. 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 Possibly related to prior treatment for lung cancer. No acute infarct No enhancing mass to suggest metastatic disease to the brain 02/2021 - CT Chest: Right upper lobe post radiation change, increased since 08/07/20, now obscuring the previously described reticulonodular opacity. Other small subcentimeter groundglass opacities in the right lung, Stable. 08/12/2020 - CT Chest: No interval change since 01/17/2020. 1.3 x 0.7 cm right upper lobe nodular opacity, most likely the known primary neoplasm, stable Adjacent right upper lobe patchy opacities most likely related to post radiation change or other infectious/inflammatory etiologies, stable. Other small subcentimeter groundglass opacities in the right lung, stable. 01/20/2020 - CT Chest: Interval decrease in size of right upper lobe nodular opacity, now measuring 1.5 cm in size. Slight interval increase in surrounding groundglass and reticular opacities, likely on the basis of posttreatment change. No evidence of bulky intrathoracic lymphadenopathy. 07/18/2019 - PET/CT: NECK: NO FDG AVID NEOPLASTIC PROCESS.. CHEST: NO FDG AVID NEOPLASTIC PROCESS. 1.4 X 0.9 CM HYPOMETABOLIC RIGHT UPPER LOBE NODULE WITH ADJACENT PARENCHYMAL SCARRING LATERALLY, IMPROVED SINCE 01/09/2019. FINDINGS ARE COMPATIBLE WITH SATISFACTORY RESPONSE OF TREATED RIGHT UPPER LOBE NODULE POST CHEMORADIATION. 0.6 CM AND 0.4 CM FAINT RIGHT MIDDLE LOBE GROUNDGLASS ATTENUATION DENSITIES, STABLE SINCE 09/12/2017. ABDOMEN/PELVIS: NO FDG AVID NEOPLASTIC PROCESS. EXTREMITIES/SKELETON: NO SUSPICIOUS FDG AVID OSSEOUS LESION. 04/09/2018 - Discontinued Imfinzi per Dr. Beaver due to pancreatitis 03/24/2017-07/12/2017 - Concurrent carboplatin and etoposide (5 cycles) 03/24/2017-05/17/2017 - Concurrent radiation Updated Visit, January 12, 2024: Debby returns for a follow up. She has her MRI of the brain scheduled for 01/14. Final reading of today's PET/CT are in process - on my initial view, I do not see any cause for concern. For the past 1.5 months, she has not had the strength to get back up after bending over. She endorses difficulty driving in the dark - recommended she follow up with her tube coater. Updated Visit, December 27, 2023: Debby returns for a follow up. She reports about 3 weeks ago, her found her asleep on the floor but she does not remember how she got there. Her elbows had wounds indicative of a fall - healed now. She complains of buttock pain, similar to a pain she had in the past. I will order a PET/CT and MRI of the brain to evaluate her symptoms. Her potassium is low on her labs today - she was prescribed a supplement. She says it caused abnormal sleeping habits and she discontinued use thinking it caused her fall. Her 4 children are her closest support system, she talks to them every day. Initial Visit, November 15, 2023: Transition of Care Debby Hermosillo presents today to transition her care as her previous provider left the practice. Doing well. Will need to re-scan in December Still smokes 4 cigs / day. Thyroid is starting to show hypothyroidism as an AE to Keytruda - will wait to correct with next lab test. - mother had thyroid cancer More tired than usual - especially in afternoon. October 03, 2023: Debby Hermosillo is a 58 year old year old female here for follow up. She is doing well and denies any rash, diarrhea and or SOB and or cough. She has had loss of appetite. REVIEW OF SYSTEMS Per HPI and otherwise negative by full review of organ systems. ECOG PERFORMANCE STATUS: 1 PHYSICAL EXAMINATION: Vitals: BP 172/88 Pulse 92 Temp (Src) 97.4 (Temporal) Resp 18 Wt 83 lb 8.9 oz (37.9kg) SpO2 100% Body surface area is 1.27 meters squared. Exam limited to gross visualization where appropriate. Gen.: This is an age-appropriate patient in no acute distress. Head: Appears atraumatic with no visible lesions. Eyes: Pupils equally round and reactive to light, extraocular muscles are intact. Neck: Supple. Respiratory: Appears to be respiring comfortably. Neurologic: Nonfocal to gross visualization. Alert and oriented 3. Psychiatric: No evidence of inappropriate anxiety or depression. Skin: Visible areas of skin without rash, lesions, wounds or petechiae. ALLERGIES: ALLERGIES Allergen Reactions Penicillins Unknown MEDICATIONS: furosemide (LASIX) 20 mg tablet Take 1 tablet by mouth once daily. potassium chloride ER (KLOR-CON) 20 mEq tablet Take 1 tablet by mouth once daily. folic acid 1 mg tablet take 1 tablet by mouth every day sucralfate (CARAFATE) 1 gram tablet take 1 tablet by mouth four times a day ondansetron (ZOFRAN) 8 mg tablet Take 1 tablet by mouth every 8 hours as needed for nausea/vomiting. prochlorperazine (COMPAZINE) 10 mg tablet Take 1 tablet by mouth every 6 hours as needed. benzonatate (TESSALON PERLE) 100 mg capsule take 1 capsule by mouth three times a day as needed for cough buprenorphine-naloxone (SUBOXONE) 8-2 mg film Dissolve under the tongue once daily. pantoprazole DR (PROTONIX) 40 mg tablet Take 1 tablet by mouth every 12 (twelve) hours. aspirin, enteric coated (ASPIRIN, ENTERIC COATED) 81 mg EC tablet Take 81 mg by mouth once daily. atorvastatin (LIPITOR) 40 mg tablet Take 40 mg by mouth once daily. NURTEC ODT 75 mg disintegrating tablet DISSOLVE 1 TABLET ON THE TONGUE ONCE A DAY AT ONSET OF MIGRAINE ACETAMINOPHEN (TYLENOL ORAL) Take by mouth. SUBOXONE 8-2 mg film Dissolve 1 Film under the tongue twice daily for 1 day. Do not start before November 23, 2022. LABORATORY VALUES: WBC (k/uL) Date Value 12/27/2023 9.97 RBC (m/uL) Date Value 12/27/2023 2.89 (L) Hemoglobin (g/dL) Date Value 12/27/2023 11.0 (L) Hematocrit (%) Date Value 12/27/2023 33.4 (L) MCV (fL) Date Value 12/27/2023 115.6 (H) MCH (pg) Date Value 12/27/2023 38.1 (H) MCHC (g/dL) Date Value 12/27/2023 32.9 RDW-CV (%) Date Value 12/27/2023 15.7 (H) Platelet Count (k/uL) Date Value 12/27/2023 212 MPV (fL) Date Value 12/27/2023 8.7 (L) Glucose (mg/dL) Date Value 12/27/2023 96 BUN (mg/dL) Date Value 12/27/2023 14 Creatinine (mg/dL) Date Value 12/27/2023 0.66 Sodium (mmol/L) Date Value 12/27/2023 137 Potassium (mmol/L) Date Value 12/27/2023 3.2 (L) Chloride (mmol/L) Date Value 12/27/2023 100 CO2 (mmol/L) Date Value 12/27/2023 28 Protein, Total (g/dL) Date Value 12/27/2023 5.7 (L) Albumin (g/dL) Date Value 12/27/2023 3.0 (L) Calcium, Total (mg/dL) Date Value 12/27/2023 8.5 Alkaline Phosphatase (U/L) Date Value 12/27/2023 217 (H) Bilirubin, Total (mg/dL) Date Value 12/27/2023 0.4 AST (U/L) Date Value 12/27/2023 18 ALT (U/L) Date Value 12/27/2023 13 DIAGNOSIS: (C34.90) Malignant neoplasm of unspecified part of unspecified bronchus or lung (HCC) (primary encounter diagnosis) (C34.91) Malignant neoplasm of right lung, unspecified part of lung (HCC) (C34.90, C79.51) 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) (R55) Syncope and collapse (R53.81, R53.83) Malaise and fatigue (R51.9) Nonintractable headache, unspecified chronicity pattern, unspecified headache type PAST MEDICAL HISTORY Diagnosis Date Acute, but ill-defined, cerebrovascular disease 10/2021 Adenocarcinoma of left lung (HCC) 08/10/2022 4L and Lingula Arthritis Asthma Back pain chronic Carpal tunnel syndrome, bilateral s/p repair - 2016 Current smoker DDD (degenerative disc disease), lumbar GERD (gastroesophageal reflux disease) Kidney stones Malignant neoplasm of lower lobe of right lung (HCC) 11/15/2022 Neck pain Neuropathy unclear origin- 6 months? saw neurologist (Dr. Hearn- In [facility]); possible MS? 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 PAST SURGICAL HISTORY Procedure Laterality Date CARPAL TUNNEL CHOLECYSTECTOMY HX COLONOSCOPY HYSTERECTOMY HX Partial NOSE SURGERY HX FRACTURE PAST SURGICAL HISTORY OF CONE BIOPSY 1983 WEDGE RESECT LUNG Right 11/15/2022 VATS right lower lobe wedge resection, mediastinal lymph node sampling, intercostal nerve block Social History Tobacco Use Smoking status: Every Day Current packs/day: 1.50 Average packs/day: 1.5 packs/day for 45.0 years (67.5 ttl pk-yrs) Types: Cigarettes Smokeless tobacco: Never Tobacco comments: 4 cigs per day Vaping Use Vaping status: Never Used Substance Use Topics Alcohol use: No Drug use: Yes Frequency: 1.0 times per week Types: Marijuana Comment: previous marijuana FAMILY HISTORY Problem Relation Age of Onset Arthritis Mother Diabetes Mother Cancer Mother bowel, thyroid Hypertension Father other (cabg) Father Cancer Brother colon Cancer Brother colon other (leukemia) Brother Diabetes Sister Diabetes Sister Diabetes Sister I spent a total of 30 minutes on the date of the service which included preparing to see the patient, [id number] patient care, completing clinical documentation, obtaining and/or reviewing separately obtained history, performing a medically appropriate examination, counseling and educating the patient/family/caregiver, ordering medications, tests, or procedures, independently interpreting results (not separately reported), communicating results to the patient/family/caregiver, and care coordination (not separately reported). Arya Rdz MD, CPE Hematology and Oncology Services Provided at: [place], [place] CC: Milton Madison MD documented in this encounter [facility] 01-12-2024 Note [facility] 01-12-2024 History of Present illness Narrative Radiology Service Progress Note DATE OF SERVICE: January 12, 2024 TIME: 12:47 PM PATIENT IDENTITY VERIFICATION COMPLETED USING TWO (2) STANDARD IDENTIFIERS: Name and Date of confirmed by patient verbally. FALL SCREENING: Has the patient had 2 falls in the last year or 1 fall with injury or currently using an Ambulatory Assistive Device (Walker, Cane, Wheelchair, Crutches, etc.)? No PATIENT GENDER DATA: Female. status: : No status: NO. EXAM: CT -CONTRAST INDUCED NEPHROPATHY RISK FACTORS: Not applicable CREATININE: Creatinine Date Value Ref Range Status 12/27/2023 0.66 0.58 - 0.96 mg/dL Final 11/15/2023 0.66 0.58 - 0.96 mg/dL Final 10/03/2023 0.73 0.58 - 0.96 mg/dL Final Estimated Glomerular Filtration Rate Date Value Ref Range Status 12/27/2023 101 >=60 mL/min/1.73m Final Comment: Estimated Glomerular Filtration Rate (eGFR) is calculated using the 2020 CKD-EPI creatinine equation. This equation utilizes serum creatinine, sex, and age as parameters. The creatinine assay has traceable calibration to isotope dilution-mass spectrometry. Refer to KDIGO guidelines for clinical interpretation. In patients with unstable renal function, e.g. those with acute kidney injury, the eGFR may not accurately reflect actual GFR. eGFR- Date Value Ref Range Status 02/11/2021 52 Final P.O.C.T. RESULTS: N/A January 12, 2024 TREATMENT: N/A IV SITE: Ambulatory: A peripheral IV was started in the Left antecubital site with a Angio cath: 22 gauge. IV SITE APPEARANCE: Clean,Dry and Intact SIGNATURE: Kerri Sethi RN PATIENT NAME: Debby Hermosillo DATE: January 12, 2024 TIME: 12:47 PM documented in this encounter [facility] 01-12-2024 Note [facility] 01-12-2024 Note [facility] 01-03-2024 Telephone encounter Note Patient has rescheduled her MRI again to 01-10-24 at 1:00 [facility] 12-29-2023 Telephone encounter Note MRI was rescheduled to 01/03/24 @ 9am. [facility] 12-29-2023 Telephone encounter Note Racheal: can you see if there's results on [employer] portal? Thanks Mila Briscoe RN [facility] 12-27-2023 Telephone encounter Note Patient has been scheduled for STAT MRI Brain tomorrow 12/27 @ 5 pm at [facility]. Briseyda Ewing [facility] 12-27-2023 Instructions Marina Castro - 12/27/2023 1:49 PM EDT Proceed keytruda today Start taking potassium supplement daily - rx sent MRI Brain stat PET/CT in 2 weeks RTC same day to review, no treatment RTC in 6 weeks for clinician, labs, treatment same day. May need to start Synthroid. documented in this encounter [facility] 12-27-2023 History of Present illness Narrative Images from the original note were not included. NAME: Debby Hermosillo [facility] NO.: [id number] DATE OF SERVICE: December 27, 2023 ([facility]) Some elements in this clinic note that are critical to medical decision making have been carefully reviewed and included from a prior clinic note dated: November 15, 2023 (Reba) Referring Provider: Stacy Adhikari MD Additional Clinicians involved in Debby Sanjuanita Hermosillo's care: DIAGNOSIS: 1. 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 Previously managed by Dr. Beaver 2. Recurrent Adenocarcinoma- Stage IV 07/2022, confirmed 11/2022- Adenocarcinoma- KRAS A146V, P53, PDL-1 100%, ALK, ROS-1, NTRK, Her-2 and RET fusions, BRAF negative. Guardant 360 08/2022: MICHAEL splice site SNV, JAYLIN ASSESSMENT: 58 year old female here for follow up. 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 06/2022 with enlarging TAM opacity has enlarged, PET scan confirms that the lesion is PET avid and does not detail any additional sites of disease. Patient was presented at the tumor board and repeat CT 07/2022 with increasing lingular and RLL lesion. She underwent a bronch and EBUS and the lingula and 4L node are both positive for Adenocarcinoma, RLL also adenocarcinoma and both lesions have similar molecular characteristics with KRAS A146V mutation and no other abnormalities and PDL-1 100%. PET with stage IV disease and MRI Brain negative. Started Single agent Pembro 01/04/2023. PET 06/[address] 09/2023 no progression , will continue Keytruda q 6 weeks PLAN: Proceed Keytruda today Start taking potassium supplement daily - rx sent MRI Brain stat PET/CT in 2 weeks RTC same day to review, no treatment RTC in 6 weeks for clinician, labs, treatment same day. May need to start Synthroid. HPI: CASE HISTORY: Reverse Chronological Order 09/2023 - CT CAP: Chest: Stable appearance of posttreatment change/treated neoplasm in the right upper lobe. Within the posterior right lower lobe, there is an area of nodularity measuring 8 x 6 mm. This is new when compared to the prior chest CT from 10/31/2022 but is stable when compared to the PET/CT from 06/14/2023. This was not FDG avid on the prior PET/CT. This abuts a linear opacity. Therefore, it is possible that this representing nodular component of atelectasis. Would advise continued close imaging surveillance and attention to this region. Additionally, there are stable groundglass opacities in the right middle lobe which should undergo continued close imaging surveillance. No significant thoracic adenopathy. A/P: No evidence of metastatic disease in the abdomen or pelvis. 06/2023 - PET/CT: No FDG avid neoplastic process. 02/2023 - PET/CT: HEAD and NECK: No evidence of focal uptake to suggest FDG avid neoplastic process.. CHEST: Status post resection of FDG avid nodules in the lingula and right lower lobe with residual inflammatory changes. Recommend follow-up with CT to rule out residual disease. ABDOMEN/PELVIS: No evidence of focal uptake to suggest FDG avid neoplastic process.. EXTREMITIES/SKELETON: No evidence of focal uptake to suggest FDG avid neoplastic process.. 01/04/2023-Current - Keytruda q 6 weeks 12/2022 - PET/CT: HEAD/NECK: No FDG avid neoplastic process. CHEST: Enlarging FDG avid lingular nodule, bronchoscopy proven adenocarcinoma FDG avid left mediastinal lymph nodes, likely metastatic Postoperative changes right lower lobe wedge resection. Uptake near the site of resection, likely related to posttherapy changes and healing. Attention on follow-up CT scan of the chest. Stable posttreatment changes within right upper lobe ABDOMEN/PELVIS: No FDG avid neoplastic process. BONES/EXTREMITIES: New focus of FDG uptake in right gluteal musculature, concerning for metastasis No suspicious FDG avid osseous lesion. 12/2022 - MRI Brain: No acute intracranial process is noted. No evidence of metastasis in the current study. 07/2022 - Bronch Lingula and 4L: A - TRANSBRONCHIAL FINE-NEEDLE ASPIRATION - LINGULA NODULE - Positive for malignant cells. - Adenocarcinoma. B - EBUS TRANSBRONCHIAL FINE NEEDLE ASPIRATE, LYMPH NODE - 4L - Positive for malignant cells. - Adenocarcinoma. 07/2022 - CT Chest: Few small groundglass and solid pulmonary nodules are noted. At least two of the solid nodules in the lingula and right lower lobe have increased in size since 06/23/2022 and are concerning for neoplastic/metastatic disease. No new or increasing intrathoracic lymphadenopathy is noted. 07/2022 - PET/CT: Neck: No suspicious hypermetabolic foci Chest: Hypermetabolic nodule in the left upper lobe suspicious for neoplasm. No hypermetabolic lymphadenopathy. Abdomen and pelvis: No evidence of FDG avid neoplastic process Skeleton: No hypermetabolic osseous lesions 06/2022 - MRI Brain: No evidence of metastatic disease No suspicious findings 06/2022 - CT Chest: New mild reticulonodular opacities in the right lower lobe most likely infectious/inflammatory in etiology. Superimposed neoplasm cannot be excluded. 8 mm left upper lobe nodular opacity increased in size since 03/31/22, worrisome for neoplasm. Other subcentimeter nodular opacities and groundglass opacities are stable. 03/2022 - CT CAP: Chest: Interval development of a new 5 mm nodule in the right lower lobe. This may be infectious/inflammatory or neoplastic in nature. Recommend continued attention to this area on follow-up exams. Stable appearance of 6 mm groundglass opacity in the right middle lobe. An additional 4 mm groundglass opacity more inferiorly in the right middle lobe appears slightly less conspicuous when compared to prior study. Stable bandlike and nodular consolidative opacity in the right upper lobe and right suprahilar region, in keeping with postradiation fibrosis. A/P: No evidence of metastatic disease in the abdomen or pelvis. Moderate biliary ductal dilation, similar in appearance to prior CT chest, but new when compared to prior PET/CT. No obstructing calculus or mass is visualized. Nonobstructive nephrolithiasis in the right kidney. 09/21/2021 - MRI Brain: 5mm focus of restricted diffusion in the left parietal lobe. An acute infarct should be considered. No enhancing mass to suggest metastatic disease to the brain. 08/2021 - CT Chest: Mild patchy airspace opacification within the lingula, favored to be infectious/inflammation. Continued attention on subsequent studies is suggested. Since 02/25/2021, unchanged groundglass opacities within the right middle lobe measuring up to 0.5 cm. 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 Unchanged moderate intrahepatic biliary ductal dilatation. 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 Possibly related to prior treatment for lung cancer. No acute infarct No enhancing mass to suggest metastatic disease to the brain 02/2021 - CT Chest: Right upper lobe post radiation change, increased since 08/07/20, now obscuring the previously described reticulonodular opacity. Other small subcentimeter groundglass opacities in the right lung, Stable. 08/12/2020 - CT Chest: No interval change since 01/17/2020. 1.3 x 0.7 cm right upper lobe nodular opacity, most likely the known primary neoplasm, stable Adjacent right upper lobe patchy opacities most likely related to post radiation change or other infectious/inflammatory etiologies, stable. Other small subcentimeter groundglass opacities in the right lung, stable. 01/20/2020 - CT Chest: Interval decrease in size of right upper lobe nodular opacity, now measuring 1.5 cm in size. Slight interval increase in surrounding groundglass and reticular opacities, likely on the basis of posttreatment change. No evidence of bulky intrathoracic lymphadenopathy. 07/18/2019 - PET/CT: NECK: NO FDG AVID NEOPLASTIC PROCESS.. CHEST: NO FDG AVID NEOPLASTIC PROCESS. 1.4 X 0.9 CM HYPOMETABOLIC RIGHT UPPER LOBE NODULE WITH ADJACENT PARENCHYMAL SCARRING LATERALLY, IMPROVED SINCE 01/09/2019. FINDINGS ARE COMPATIBLE WITH SATISFACTORY RESPONSE OF TREATED RIGHT UPPER LOBE NODULE POST CHEMORADIATION. 0.6 CM AND 0.4 CM FAINT RIGHT MIDDLE LOBE GROUNDGLASS ATTENUATION DENSITIES, STABLE SINCE 09/12/2017. ABDOMEN/PELVIS: NO FDG AVID NEOPLASTIC PROCESS. EXTREMITIES/SKELETON: NO SUSPICIOUS FDG AVID OSSEOUS LESION. 04/09/2018 - Discontinued Imfinzi per Dr. Beaver due to pancreatitis 03/24/2017-07/12/2017 - Concurrent carboplatin and etoposide (5 cycles) 03/24/2017-05/17/2017 - Concurrent radiation Updated Visit, December 27, 2023: Debby returns for a follow up. She reports about 3 weeks ago, her found her asleep on the floor but she does not remember how she got there. Her elbows had wounds indicative of a fall - healed now. She complains of buttock pain, similar to a pain she had in the past. I will order a PET/CT and MRI of the brain to evaluate her symptoms. Her potassium is low on her labs today - she was prescribed a supplement. She says it caused abnormal sleeping habits and she discontinued use thinking it caused her fall. Her 4 children are her closest support system, she talks to them every day. Initial Visit, November 15, 2023: Transition of Care Debby Hermosillo presents today to transition her care as her previous provider left the practice. Doing well. Will need to re-scan in December Still smokes 4 cigs / day. Thyroid is starting to show hypothyroidism as an AE to Keytruda - will wait to correct with next lab test. - mother had thyroid cancer More tired than usual - especially in afternoon. October 03, 2023: Debby Hermosillo is a 58 year old year old female here for follow up. She is doing well and denies any rash, diarrhea and or SOB and or cough. She has had loss of appetite. REVIEW OF SYSTEMS Per HPI and otherwise negative by full review of organ systems. ECOG PERFORMANCE STATUS: 1 PHYSICAL EXAMINATION: Vitals: BP 131/77 Pulse 102 Temp (Src) 97.6 (Temporal) Resp 16 Ht 5' .433 (1.54m) Wt 82 lb 7.2 oz (37.4kg) SpO2 97% BMI 15.87 kg/(m^2). Body surface area is 1.26 meters squared. Exam limited to gross visualization where appropriate. Gen.: This is an age-appropriate patient in no acute distress. Head: Appears atraumatic with no visible lesions. Eyes: Pupils equally round and reactive to light, extraocular muscles are intact. Neck: Supple. Respiratory: Appears to be respiring comfortably. Neurologic: Nonfocal to gross visualization. Alert and oriented 3. Psychiatric: No evidence of inappropriate anxiety or depression. Skin: Visible areas of skin without rash, lesions, wounds or petechiae. ALLERGIES: ALLERGIES Allergen Reactions Penicillins Unknown MEDICATIONS: folic acid 1 mg tablet take 1 tablet by mouth every day sucralfate (CARAFATE) 1 gram tablet take 1 tablet by mouth four times a day ondansetron (ZOFRAN) 8 mg tablet Take 1 tablet by mouth every 8 hours as needed for nausea/vomiting. prochlorperazine (COMPAZINE) 10 mg tablet Take 1 tablet by mouth every 6 hours as needed. benzonatate (TESSALON PERLE) 100 mg capsule take 1 capsule by mouth three times a day as needed for cough buprenorphine-naloxone (SUBOXONE) 8-2 mg film Dissolve under the tongue once daily. pantoprazole DR (PROTONIX) 40 mg tablet Take 1 tablet by mouth every 12 (twelve) hours. aspirin, enteric coated (ASPIRIN, ENTERIC COATED) 81 mg EC tablet Take 81 mg by mouth once daily. atorvastatin (LIPITOR) 40 mg tablet Take 40 mg by mouth once daily. NURTEC ODT 75 mg disintegrating tablet DISSOLVE 1 TABLET ON THE TONGUE ONCE A DAY AT ONSET OF MIGRAINE ACETAMINOPHEN (TYLENOL ORAL) Take by mouth. potassium chloride ER (KLOR-CON) 20 mEq tablet Take 1 tablet by mouth once daily. furosemide (LASIX) 20 mg tablet Take 1 tablet by mouth once daily. SUBOXONE 8-2 mg film Dissolve 1 Film under the tongue twice daily for 1 day. Do not start before November 23, 2022. LABORATORY VALUES: WBC (k/uL) Date Value 12/27/2023 9.97 RBC (m/uL) Date Value 12/27/2023 2.89 (L) Hemoglobin (g/dL) Date Value 12/27/2023 11.0 (L) Hematocrit (%) Date Value 12/27/2023 33.4 (L) MCV (fL) Date Value 12/27/2023 115.6 (H) MCH (pg) Date Value 12/27/2023 38.1 (H) MCHC (g/dL) Date Value 12/27/2023 32.9 RDW-CV (%) Date Value 12/27/2023 15.7 (H) Platelet Count (k/uL) Date Value 12/27/2023 212 MPV (fL) Date Value 12/27/2023 8.7 (L) Glucose (mg/dL) Date Value 12/27/2023 96 BUN (mg/dL) Date Value 12/27/2023 14 Creatinine (mg/dL) Date Value 12/27/2023 0.66 Sodium (mmol/L) Date Value 12/27/2023 137 Potassium (mmol/L) Date Value 12/27/2023 3.2 (L) Chloride (mmol/L) Date Value 12/27/2023 100 CO2 (mmol/L) Date Value 12/27/2023 28 Protein, Total (g/dL) Date Value 12/27/2023 5.7 (L) Albumin (g/dL) Date Value 12/27/2023 3.0 (L) Calcium, Total (mg/dL) Date Value 12/27/2023 8.5 Alkaline Phosphatase (U/L) Date Value 12/27/2023 217 (H) Bilirubin, Total (mg/dL) Date Value 12/27/2023 0.4 AST (U/L) Date Value 12/27/2023 18 ALT (U/L) Date Value 12/27/2023 13 DIAGNOSIS: (C34.90) Malignant neoplasm of unspecified part of unspecified bronchus or lung (HCC) (primary encounter diagnosis) Plan: NM PET/CT SKULL-THIGH SUBSEQUENT, MRI BRAIN WO/W IVCON (C34.00) Malignant neoplasm of hilus of lung, unspecified laterality (HCC) Plan: NM PET/CT SKULL-THIGH SUBSEQUENT (C34.91) Malignant neoplasm of right lung, unspecified part of lung (HCC) Plan: NM PET/CT SKULL-THIGH SUBSEQUENT (C34.90, C79.51) 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 saw neurologist (Dr. Hearn- In [facility]); possible MS? 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 PAST SURGICAL HISTORY Procedure Laterality Date CARPAL TUNNEL CHOLECYSTECTOMY HX COLONOSCOPY HYSTERECTOMY HX Partial NOSE SURGERY HX FRACTURE PAST SURGICAL HISTORY OF CONE BIOPSY 1983 WEDGE RESECT LUNG Right 11/15/2022 VATS right lower lobe wedge resection, mediastinal lymph node sampling, intercostal nerve block Social History Tobacco Use Smoking status: Every Day Current packs/day: 1.50 Average packs/day: 1.5 packs/day for 45.0 years (67.5 ttl pk-yrs) Types: Cigarettes Smokeless tobacco: Never Tobacco comments: 4 cigs per day Vaping Use Vaping status: Never Used Substance Use Topics Alcohol use: No Drug use: Yes Frequency: 1.0 times per week Types: Marijuana Comment: previous marijuana FAMILY HISTORY Problem Relation Age of Onset Arthritis Mother Diabetes Mother Cancer Mother bowel, thyroid Hypertension Father other (cabg) Father Cancer Brother colon Cancer Brother colon other (leukemia) Brother Diabetes Sister Diabetes Sister Diabetes Sister I spent a total of 40 minutes on the date of the service which included preparing to see the patient, [id number] patient care, completing clinical documentation, obtaining and/or reviewing separately obtained history, performing a medically appropriate examination, counseling and educating the patient/family/caregiver, ordering medications, tests, or procedures, independently interpreting results (not separately reported), communicating results to the patient/family/caregiver, and care coordination (not separately reported). Arya Rdz MD, CPE Hematology and Oncology Services Provided at: [facility] [place], [place] Scribe Attestation: This note was scribed by Marina Castro on December 27, 2023 under the direction and supervision of Dr. Arya Rdz. I attest that all of the information documented is correct to the best of my knowledge. Provider Attestation: I, Arya Rdz MD, attest that all information documented by the above scribe is correct, and was supervised by me and under my direction. CC: Milton Madison MD documented in this encounter [facility] 12-27-2023 Note [facility] 12-22-2023 Telephone encounter Note Please place lab orders for appt on 12/26 if needed. Barbara Pereira MA [facility] 12-22-[address] lab orders for appt on 12/26 if needed. Barbara Pereira MA documented in this encounter [facility] 11-15-2023 History of Present illness Narrative Images from the original note were not included. PATIENT NAME: Debby Hermosillo CLINIC NO.: [id number] DATE OF SERVICE: November 15, 2023 (Reba) Some elements in this clinic note that are critical to medical decision making have been carefully reviewed and included from a prior clinic note dated: October 03, 2023 (Onofre) Referring Provider: Stacy Adhikari MD Diagnosis: 1. 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 Previously managed by Dr. Beaver 2. Recurrent Adenocarcinoma- Stage IV 07/2022, confirmed 11/2022- Adenocarcinoma- KRAS A146V, P53, PDL-1 100%, ALK, ROS-1, NTRK, Her-2 and RET fusions, BRAF negative. Guardant 360 08/2022: MICHAEL splice site SNV, JAYLIN Assessment: Debby Hermosillo is a 58 year old year old female here for follow up. 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 06/2022 with enlarging TAM opacity has enlarged, PET scan confirms that the lesion is PET avid and does not detail any additional sites of disease. Patient was presented at the tumor board and repeat CT 07/2022 with increasing lingular and RLL lesion. She underwent a bronch and EBUS and the lingula and 4L node are both positive for Adenocarcinoma, RLL also adenocarcinoma and both lesions have similar molecular characteristics with KRAS A146V mutation and no other abnormalities and PDL-1 100%. PET with stage IV disease and MRI Brain negative. Started Single agent Pembro 01/04/2023. PET 06/[address] 09/2023 no progression , will continue Keytruda q 6 weeks PLAN: Labs in 3 weeks : TSH, FT4 Proceed keytruda today RTC in 6 weeks for clinician, labs, treatment same day. May need to start Synthroid. Treatment History: 1. Carboplatin and etoposide started March 24, 2017, combined with radiation. Radiotherapy completed May 17, 2017 right upper lobe Patient received a total of 5 cycles of carboplatin and etoposide last on July 12, 2017 Patient was subsequently placed on Imfinzi Per Dr. Beaver and last dose April 09, 2018 and per review of my notes stopped secondary to pancreatitis. 2. Keytruda 01/04/2023 Initial Visit, November 15, 2023: Transition of Care Jazmin Hermosillo presents today to transition her care as her previous provider left the practice. Doing well. Will need to re-scan in December Still smokes 4 cigs / day. Thyroid is starting to show hypothyroidism as an AE to Keytruda - will wait to correct with next lab test. - mother had thyroid cancer More tired than usual - especially in afternoon. October 03, 2023: Debby Hermosillo is a 58 year old year old female here for follow up. She is doing well and denies any rash, diarrhea and or SOB and or cough. She has had loss of appetite. PAST MEDICAL HISTORY 10/2021: Acute, but ill-defined, cerebrovascular disease 08/10/2022: Adenocarcinoma of left lung (HCC) Comment: 4L and Lingula No date: Arthritis No date: Asthma No date: Back pain Comment: chronic No date: Carpal tunnel syndrome, bilateral Comment: s/p repair - 2016 No date: Current smoker No date: DDD (degenerative disc disease), lumbar No date: GERD (gastroesophageal reflux disease) No date: Kidney stones 11/15/2022: Malignant neoplasm of lower lobe of right lung (HCC) No date: Neck pain No date: Neuropathy Comment: unclear origin- 6 months? saw neurologist (Dr. Hearn- In [facility]); possible MS? No date: Osteoporosis 06/2016 & 12/2016: Pneumonia 11/04/2021: Recurrent UTI 02/17/2017: Small cell lung cancer in adult (HCC) Comment: Combined small cell carcinoma and squamous cell carcinoma with extensive necrosis Social History Tobacco Use Smoking status: Every Day Current packs/day: 1.50 Average packs/day: 1.5 packs/day for 45.0 years (67.5 ttl pk-yrs) Types: Cigarettes Smokeless tobacco: Never Tobacco comments: 4 cigs per day Vaping Use Vaping status: Never Used Substance Use Topics Alcohol use: No Drug use: Yes Frequency: 1.0 times per week Types: Marijuana Comment: previous marijuana FAMILY HISTORY Problem Relation Age of Onset Arthritis Mother Diabetes Mother Cancer Mother bowel, thyroid Hypertension Father other (cabg) Father Cancer Brother colon Cancer Brother colon other (leukemia) Brother Diabetes Sister Diabetes Sister Diabetes Sister Past medical, social and family history reviewed without any changes. REVIEW OF SYSTEMS Per HPI and otherwise negative by full review of organ systems. PHYSICAL EXAMINATION: BP 173/79 Pulse 92 Temp (Src) 97.2 (Temporal) Resp 16 Ht 5' .433 (1.54m) Wt 81 lb 5.6 oz (36.9kg) SpO2 98% BMI 15.66 kg/(m^2). ECOG PERFORMANCE STATUS: 0- Fully active, able to carry on all pre-disease performance w/o restriction. Exam limited to gross visualization where appropriate. Gen.: This is an age-appropriate patient in no acute distress. Head: Appears atraumatic with no visible lesions. Eyes: Pupils equally round and reactive to light, extraocular muscles are intact. Neck: Supple. Respiratory: Appears to be respiring comfortably. Neurologic: Nonfocal to gross visualization. Alert and oriented 3. Psychiatric: No evidence of inappropriate anxiety or depression. Skin: Visible areas of skin without rash, lesions, wounds or petechiae.\ LABS: WBC (k/uL) Date Value 11/15/2023 10.23 RBC (m/uL) Date Value 11/15/2023 3.05 (L) Hemoglobin (g/dL) Date Value 11/15/2023 11.7 Hematocrit (%) Date Value 11/15/2023 34.0 (L) MCV (fL) Date Value 11/15/2023 111.5 (H) MCH (pg) Date Value 11/15/2023 38.4 (H) MCHC (g/dL) Date Value 11/15/2023 34.4 RDW-CV (%) Date Value 11/15/2023 13.2 Platelet Count (k/uL) Date Value 11/15/2023 194 MPV (fL) Date Value 11/15/2023 9.8 Glucose (mg/dL) Date Value 11/15/2023 78 BUN (mg/dL) Date Value 11/15/2023 11 Creatinine (mg/dL) Date Value 11/15/2023 0.66 Sodium (mmol/L) Date Value 11/15/2023 139 Potassium (mmol/L) Date Value 11/15/2023 4.2 Chloride (mmol/L) Date Value 11/15/2023 103 CO2 (mmol/L) Date Value 11/15/2023 28 Protein, Total (g/dL) Date Value 11/15/2023 5.6 (L) Albumin (g/dL) Date Value 11/15/2023 3.5 (L) Calcium, Total (mg/dL) Date Value 11/15/2023 9.0 Alkaline Phosphatase (U/L) Date Value 11/15/2023 129 (H) Bilirubin, Total (mg/dL) Date Value 11/15/2023 0.2 AST (U/L) Date Value 11/15/2023 15 ALT (U/L) Date Value 11/15/2023 10 PATH: Saúl biopsy February 2017: Right lung, upper lobe nodule, endobronchial biopsy 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 Bronch Lingula and 4L 07/2022: A - TRANSBRONCHIAL FINE-NEEDLE ASPIRATION - LINGULA NODULE Positive for malignant cells. Adenocarcinoma. B - EBUS TRANSBRONCHIAL FINE NEEDLE ASPIRATE, LYMPH NODE - 4L Positive for malignant cells. Adenocarcinoma. Imaging: PET scan July 18, 2019: 1. NECK: * NO FDG AVID NEOPLASTIC PROCESS.. 2. CHEST: * NO FDG AVID NEOPLASTIC PROCESS. * 1.4 X 0.9 CM HYPOMETABOLIC RIGHT UPPER LOBE NODULE WITH ADJACENT PARENCHYMAL SCARRING LATERALLY, IMPROVED SINCE 01/09/2019. FINDINGS ARE COMPATIBLE WITH SATISFACTORY RESPONSE OF TREATED RIGHT UPPER LOBE NODULE POST CHEMORADIATION. * 0.6 CM AND 0.4 CM FAINT RIGHT MIDDLE LOBE GROUNDGLASS ATTENUATION DENSITIES, STABLE SINCE 09/12/2017. 3. ABDOMEN/PELVIS: * NO FDG AVID NEOPLASTIC PROCESS. . 4. EXTREMITIES/SKELETON: * NO SUSPICIOUS FDG AVID OSSEOUS LESION. CT of the chest with contrast January 20, 2020: 1. Interval decrease in size of right upper lobe nodular opacity, now measuring 1.5 cm in size. 2. Slight interval increase in surrounding groundglass and reticular opacities, likely on the basis of posttreatment change. 3. No evidence of bulky intrathoracic lymphadenopathy. CT scan of the chest August 12, 2020: 1. No interval change since 01/17/2020. 2. 1.3 x 0.7 cm right upper lobe nodular opacity, most likely the known primary neoplasm, stable 3. Adjacent right upper lobe patchy opacities most likely related to post radiation change or other infectious/inflammatory etiologies, stable. 4. Other small subcentimeter groundglass opacities in the right lung, stable. CT of the Chest 02/2021: 1. Right upper lobe post radiation change, increased since 08/07/20, now obscuring the previously described reticulonodular opacity. 2. Other small subcentimeter groundglass opacities in the right lung, Stable. MRI Brain 02/2021: CT Chest 08/2021: 1. Mild patchy airspace opacification within the lingula, favored to be infectious/inflammation. Continued attention on subsequent studies is suggested. 2. Since 02/25/2021, unchanged groundglass opacities within the right middle lobe measuring up to 0.5 cm. 3. 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 4. Unchanged moderate intrahepatic biliary ductal dilatation. MRI Brain 09/2021: CT Scan of the Chest and Abdomen and Pelvis 03/2022: 1. Interval development of a new 5 mm nodule in the right lower lobe. This may be infectious/inflammatory or neoplastic in nature. Recommend continued attention to this area on follow-up exams. 2. Stable appearance of 6 mm groundglass opacity in the right middle lobe. An additional 4 mm groundglass opacity more inferiorly in the right middle lobe appears slightly less conspicuous when compared to prior study. 3. Stable bandlike and nodular consolidative opacity in the right upper lobe and right suprahilar region, in keeping with postradiation fibrosis. 1. No evidence of metastatic disease in the abdomen or pelvis. 2. Moderate biliary ductal dilation, similar in appearance to prior CT chest, but new when compared to prior PET/CT. No obstructing calculus or mass is visualized. 3. Nonobstructive nephrolithiasis in the right kidney. CT Chest 06/2022: 1. New mild reticulonodular opacities in the right lower lobe most likely infectious/inflammatory in etiology. Superimposed neoplasm cannot be excluded. 2. 8 mm left upper lobe nodular opacity increased in size since 03/31/22, worrisome for neoplasm. 3. Other subcentimeter nodular opacities and groundglass opacities are stable. PET Scan 07/2022: 1. Neck: No suspicious hypermetabolic foci 2. Chest: Hypermetabolic nodule in the left upper lobe suspicious for neoplasm. No hypermetabolic lymphadenopathy. 3. Abdomen and pelvis: No evidence of FDG avid neoplastic process 4. Skeleton: No hypermetabolic osseous lesions MRI Brain 06/2022: CT 07/2022: 1. Few small groundglass and solid pulmonary nodules are noted. At least two of the solid nodules in the lingula and right lower lobe have increased in size since 06/23/2022 and are concerning for neoplastic/metastatic disease. 2. No new or increasing intrathoracic lymphadenopathy is noted. MRI Brain 12/2022: PET Scan 12/2022: IMPRESSION: HEAD/NECK: * No FDG avid neoplastic process. CHEST: * Enlarging FDG avid lingular nodule, bronchoscopy proven adenocarcinoma * FDG avid left mediastinal lymph nodes, likely metastatic * Postoperative changes right lower lobe wedge resection. Uptake near the site of resection, likely related to posttherapy changes and healing. Attention on follow-up CT scan of the chest. * Stable posttreatment changes within right upper lobe ABDOMEN/PELVIS: * No FDG avid neoplastic process. BONES/EXTREMITIES: * New focus of FDG uptake in right gluteal musculature, concerning for metastasis * No suspicious FDG avid osseous lesion. PET Scan 02/2023: 1. HEAD and NECK: No evidence of focal uptake to suggest FDG avid neoplastic process.. 2. CHEST: Status post resection of FDG avid nodules in the lingula and right lower lobe with residual inflammatory changes. Recommend follow-up with CT to rule out residual disease. 3. ABDOMEN/PELVIS: No evidence of focal uptake to suggest FDG avid neoplastic process.. 4. EXTREMITIES/SKELETON: No evidence of focal uptake to suggest FDG avid neoplastic process.. PET Scan 06/2023: HEAD/NECK: * No FDG avid neoplastic process. CHEST: * No FDG avid neoplastic process. ABDOMEN/PELVIS: * No FDG avid neoplastic process. MUSCULOSKELETAL: * No FDG avid neoplastic process. CT Scan of the Chest and Abdomen and Pelvis 09/2023: 1. Stable appearance of posttreatment change/treated neoplasm in the right upper lobe. Within the posterior right lower lobe, there is an area of nodularity measuring 8 x 6 mm. This is new when compared to the prior chest CT from 10/31/2022 but is stable when compared to the PET/CT from 06/14/2023. This was not FDG avid on the prior PET/CT. This abuts a linear opacity. Therefore, it is possible that this representing nodular component of atelectasis. Would advise continued close imaging surveillance and attention to this region. Additionally, there are stable groundglass opacities in the right middle lobe which should undergo continued close imaging surveillance. 2. No significant thoracic adenopathy. 1. No evidence of metastatic disease in the abdomen or pelvis. I spent a total of 30 minutes on the date of service which included preparing to see the patient, [id number] patient care, completing clinical documentation, obtaining and/or reviewing separately obtained history, performing a medically appropriate examination, counseling and educating the patient/family/caregiver, ordering medications, tests, or procedures, independently interpreting results (not separately reported), communicating results to the patient/family/caregiver, and care coordination (not separately reported). Arya Rdz MD, CPE Hematology and Oncology Services Provided at: [place], [place] CC: Milton Madison MD documented in this encounter [facility] 11-15-2023 Note [facility] 11-15-2023 Instructions Arya Rdz MD - 11/15/2023 1:58 PM EDT Labs in 3 weeks : TSH, FT4 Proceed keytruda today RTC in 6 weeks for clinician, labs, treatment same day. May need to start Synthroid. documented in this encounter [facility] 11-07-2023 Hospital Discharge instructions Patient Education 11/07/2023 10:28:53 Kidney Stones Kidney Stones Kidney stones are solid, rock-like deposits that form inside of the kidneys. The kidneys are a pair of organs that make urine. A kidney stone may form in a kidney and move into other parts of the urinary tract, including the tubes that connect the kidneys to the bladder (ureters), the bladder, and the tube that carries urine out of the body (urethra). As the stone moves through these areas, it can cause intense pain and block the flow of urine. Kidney stones are created when high levels of certain minerals are found in the urine. The stones are usually passed out of the body through urination, but in some cases, medical treatment may be needed to remove them. What are the causes? Kidney stones may be caused by: A condition in which certain glands produce too much parathyroid hormone (primary hyperparathyroidism), which causes too much calcium buildup in the blood. A buildup of uric acid crystals in the bladder (hyperuricosuria). Uric acid is a chemical that the body produces when you eat certain foods. It usually leaves the body in the urine. Narrowing (stricture) of one or both of the ureters. A kidney blockage that is present at (congenital obstruction). Past surgery on the kidney or the ureters. What increases the risk? The following factors may make you more likely to develop this condition: Having had a kidney stone in the past. Having a family history of kidney stones. Not drinking enough water. Eating a diet that is high in protein, salt (sodium), or sugar. Being overweight or obese. What are the signs or symptoms? Symptoms of a kidney stone may include: Pain in the side of the abdomen, right below the ribs (flank pain). Pain usually spreads (radiates) to the groin. Needing to urinate often or urgently. Painful urination. Blood in the urine (hematuria). Nausea. Vomiting. Fever and chills. How is this diagnosed? This condition may be diagnosed based on: Your symptoms and medical history. A physical exam. Blood tests. Urine tests. These may be done before and after the stone passes out of your body through urination. Imaging tests, such as a CT scan, abdominal X-ray, or ultrasound. A procedure to examine the inside of the bladder (cystoscopy). How is this treated? Treatment for kidney stones depends on the size, location, and makeup of the stones. Kidney stones will often pass out of the body through urination. You may need to: Increase your fluid intake to help pass the stone. In some cases, you may be given fluids through an IV and may need to be monitored in the hospital. Take medicine for pain. Make changes in your diet to help prevent kidney stones from coming back. Sometimes, procedures are needed to remove a kidney stone. This may involve: A procedure to break up kidney stones using: ?A focused beam of light (laser therapy). ?Shock waves (extracorporeal shock wave lithotripsy). Surgery to remove kidney stones. This may be needed if you have severe pain or have stones that block your urinary tract. Follow these instructions at home: Medicines Take [id number] and prescription medicines only as told by your health care provider. Ask your health care provider if the medicine prescribed to you requires you to avoid driving or using heavy machinery. Eating and drinking Drink enough fluid to keep your urine pale yellow. You may be instructed to drink at least 8 10 glasses of water each day. This will help you pass the kidney stone. If directed, change your diet. This may include: ?Limiting how much sodium you eat. ?Eating more fruits and vegetables. ?Limiting how much animal protein you eat. Animal proteins include red meat, poultry, fish, and eggs. ?Eating a normal amount of calcium (1,000 1,300 mg per day). Follow instructions from your health care provider about eating or drinking restrictions. General instructions Collect urine samples as told by your health care provider. You may need to collect a urine sample: ?24 hours after you pass the stone. ?8 12 weeks after you pass the kidney stone, and every 6 12 months after that. Strain your urine every time you urinate, for as long as directed. Use the strainer that your health care provider recommends. Do not throw out the kidney stone after passing it. Keep the stone so it can be tested by your health care provider. Testing the makeup of your kidney stone may help prevent you from getting kidney stones in the future. Keep all follow-up visits. You may need follow-up X-rays or ultrasounds to make sure that your stone has passed. How is this prevented? To prevent another kidney stone: Drink enough fluid to keep your urine pale yellow. This is the best way to prevent kidney stones. Eat a healthy diet. Follow recommendations from your health care provider about foods to avoid. Recommendations vary depending on the type of kidney stone that you have. You may be instructed to eat a low-protein diet. Maintain a healthy weight. Where to find more information National Kidney Foundation (NKF): www.kidney.org [employer] (UCF): www.urologyhealth.org Contact a health care provider if: You have pain that gets worse or does not get better with medicine. Get help right away if: You have a fever or chills. You develop severe pain. You develop new abdominal pain. You faint. You are unable to urinate. Summary Kidney stones are solid, rock-like deposits that form inside of the kidneys. Kidney stones can cause nausea, vomiting, blood in the urine, abdominal pain, and the urge to urinate often. Treatment for kidney stones depends on the size, location, and makeup of the stones. Kidney stones will often pass out of the body through urination. Kidney stones can be prevented by drinking enough fluids, eating a healthy diet, and maintaining a healthy weight. This information is not intended to replace advice given to you by your health care provider. Make sure you discuss any questions you have with your health care provider. Document Revised: 06/08/2022 Document Reviewed: 06/08/2022 [employer] Patient Education 2022 [employer] Follow Up Care 11/01/2022 10:36:17 With:MCKENZIE COHEN, JESSIKA Anrdade, URL Address: [address] [place], [place] [address]alphonso Tim[facility] [place] [address] When: Unknown Comments:1 year w/ [facility] 11-07-2023 Telephone encounter Note Patient has an appt on 11/15/23. Would you like labs, if so place orders (She is a transition of care). Jessie Dill MA [facility] 11-07-2023 Miscellaneous Notes Patient has an appt on 11/15/23. Would you like labs, if so place orders (She is a transition of care). Jessie Dill MA documented in this encounter [facility] 11-07-2023 Note Patient Education Urology Kidney Stones Kidney stones are solid, rock-like deposits that form inside of the kidneys. The kidneys are a pair of organs that make urine. A kidney stone may form in a kidney and move into other parts of the urinary tract, including the tubes that connect the kidneys to the bladder (ureters), the bladder, and the tube that carries urine out of the body (urethra). As the stone moves through these areas, it can cause intense pain and block the flow of urine. Kidney stones are created when high levels of certain minerals are found in the urine. The stones are usually passed out of the body through urination, but in some cases, medical treatment may be needed to remove them. What are the causes? Kidney stones may be caused by: ? A condition in which certain glands produce too much parathyroid hormone (primary hyperparathyroidism), which causes too much calcium buildup in the blood. ? A buildup of uric acid crystals in the bladder (hyperuricosuria). Uric acid is a chemical that the body produces when you eat certain foods. It usually leaves the body in the urine. ? Narrowing (stricture) of one or both of the ureters. ? A kidney blockage that is present at (congenital obstruction). ? Past surgery on the kidney or the ureters. What increases the risk? The following factors may make you more likely to develop this condition: ? Having had a kidney stone in the past. ? Having a family history of kidney stones. ? Not drinking enough water. ? Eating a diet that is high in protein, salt (sodium), or sugar. ? Being overweight or obese. What are the signs or symptoms? Symptoms of a kidney stone may include: ? Pain in the side of the abdomen, right below the ribs (flank pain). Pain usually spreads (radiates) to the groin. ? Needing to urinate often or urgently. ? Painful urination. ? Blood in the urine (hematuria). ? Nausea. ? Vomiting. ? Fever and chills. How is this diagnosed? This condition may be diagnosed based on: ? Your symptoms and medical history. ? A physical exam. ? Blood tests. ? Urine tests. These may be done before and after the stone passes out of your body through urination. ? Imaging tests, such as a CT scan, abdominal X-ray, or ultrasound. ? A procedure to examine the inside of the bladder (cystoscopy). How is this treated? Treatment for kidney stones depends on the size, location, and makeup of the stones. Kidney stones will often pass out of the body through urination. You may need to: ? Increase your fluid intake to help pass the stone. In some cases, you may be given fluids through an IV and may need to be monitored in the hospital. ? Take medicine for pain. ? Make changes in your diet to help prevent kidney stones from coming back. Sometimes, procedures are needed to remove a kidney stone. This may involve: ? A procedure to break up kidney stones using: ? A focused beam of light (laser therapy). ? Shock waves (extracorporeal shock wave lithotripsy). ? Surgery to remove kidney stones. This may be needed if you have severe pain or have stones that block your urinary tract. Follow these instructions at home: Medicines ? Take [id number] and prescription medicines only as told by your health care provider. ? Ask your health care provider if the medicine prescribed to you requires you to avoid driving or using heavy machinery. Eating and drinking ? Drink enough fluid to keep your urine pale yellow. You may be instructed to drink at least 8?10 glasses of water each day. This will help you pass the kidney stone. ? If directed, change your diet. This may include: ? Limiting how much sodium you eat. ? Eating more fruits and vegetables. ? Limiting how much animal protein you eat. Animal proteins include red meat, poultry, fish, and eggs. ? Eating a normal amount of calcium (1,000?1,300 mg per day). ? Follow instructions from your health care provider about eating or drinking restrictions. General instructions ? Collect urine samples as told by your health care provider. You may need to collect a urine sample: ? 24 hours after you pass the stone. ? 8?12 weeks after you pass the kidney stone, and every 6?12 months after that. ? Strain your urine every time you urinate, for as long as directed. Use the strainer that your health care provider recommends. ? Do not throw out the kidney stone after passing it. Keep the stone so it can be tested by your health care provider. Testing the makeup of your kidney stone may help prevent you from getting kidney stones in the future. ? Keep all follow-up visits. You may need follow-up X-rays or ultrasounds to make sure that your stone has passed. How is this prevented? To prevent another kidney stone: ? Drink enough fluid to keep your urine pale yellow. This is the best way to prevent kidney stones. ? Eat a healthy diet. Follow r (more content not included)... [facility] 10-17-2023 Telephone encounter Note Patient is scheduled for , 10/18 @ 1:20 pm in the [place] office with Dr. Guzman. Briseyda Ewing [facility] 10-17-2023 Miscellaneous Notes Patient is scheduled for , 10/18 @ 1:20 pm in the [place] office with Dr. Guzman. Briseyda Ewing Records faxed to [facility]. Referral for Podiatry. Racheal/Ubaldo: Patient resides in [place]. Can we refer patient to [facility] and follow up? Thanks! Briseyda Ewing documented in this encounter [facility] 10-03-2023 Telephone encounter Note Records faxed to [facility] [place] office. [facility] 10-03-2023 Note [facility] 10-03-2023 History of Present illness Narrative Dr. Adhikari made aware via secure chat of patient's potassium= 3.1 today. Script written for Lasix and oral potassium due to edema in BLE but was not sure if Dr. Adhikari knew of the low potassium itself. Orders given for pt to receive KCl 20 mEq PO prior to discharge from clinic today. Mellisa Rincon, RN documented in this encounter [facility] 10-03-2023 Telephone encounter Note Referral for Podiatry. Racheal/Ubaldo: Patient resides in [place]. Can we refer patient to [facility] and follow up? Thanks! Briseyda Ewing [facility] 10-03-2023 Note [facility] 10-03-2023 History of Present illness Narrative Images from the original note were not included. PATIENT NAME: Debby Hermosillo CLINIC NO.: [id number] ATTENDING PHYSICIAN: Stacy Adhikari MD DATE OF SERVICE: October 03, 2023 Some of the elements of this note have been copied from my previous progress note dated 08/22/2023. All the information has been reviewed carefully. Dear Dr. Gasper Beaver MD here is an update on a follow up visit on female Debby Hermosillo at the clinic October 03, 2023 Diagnosis: 1. 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 Previously managed by Dr. Beaver 2. Recurrent Adenocarcinoma- Stage IV 07/2022, confirmed 11/2022- Adenocarcinoma- KRAS A146V, P53, PDL-1 100%, ALK, ROS-1, NTRK, Her-2 and RET fusions, BRAF negative. Guardant 360 08/2022: MICHAEL splice site SNV, JAYLIN Treatment History: 1. Carboplatin and etoposide started March 24, 2017, combined with radiation. Radiotherapy completed May 17, 2017 right upper lobe Patient received a total of 5 cycles of carboplatin and etoposide last on July 12, 2017 Patient was subsequently placed on Imfinzi Per Dr. Beaver and last dose April 09, 2018 and per review of my notes stopped secondary to pancreatitis. 2. Keytruda 01/04/2023 HPI: Debby Hermosillo is a 58 year old year old female here for follow up. She is doing well and denies any rash, diarrhea and or SOB and or cough. She has had loss of appetite. PAST MEDICAL HISTORY Diagnosis Date Acute, but ill-defined, cerebrovascular disease 10/2021 Adenocarcinoma of left lung (HCC) 08/10/2022 4L and Lingula Arthritis Asthma Back pain chronic Carpal tunnel syndrome, bilateral s/p repair - 2016 Current smoker DDD (degenerative disc disease), lumbar GERD (gastroesophageal reflux disease) Kidney stones Malignant neoplasm of lower lobe of right lung (HCC) 11/15/2022 Neck pain Neuropathy unclear origin- 6 months? saw neurologist (Dr. Hearn- In [facility]); possible MS? 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 Social History Tobacco Use Smoking status: Every Day Packs/day: 1.50 Years: 45.00 Additional pack years: 0.00 Total pack years: 67.50 Types: Cigarettes Smokeless tobacco: Never Tobacco comments: 4 cigs per day Vaping Use Vaping Use: Never used Substance Use Topics Alcohol use: No Drug use: Yes Frequency: 1.0 times per week Types: Marijuana Comment: previous marijuana FAMILY HISTORY Problem Relation Age of Onset Arthritis Mother Diabetes Mother Cancer Mother bowel, thyroid Hypertension Father other (cabg) Father Cancer Brother colon Cancer Brother colon other (leukemia) Brother Diabetes Sister Diabetes Sister Diabetes Sister Past medical, social and family history reviewed without any changes. REVIEW OF SYSTEMS GENERAL: No weight loss, malaise or fevers. No night sweats. HEENT: Negative for headaches, No changes in hearing or vision, no nose bleeds or other nasal problems. RESPIRATORY: Negative for cough, wheezing and shortness of breath CARDIOVASCULAR: Negative for chest pain, leg swelling and palpitations GI: Negative for abdominal discomfort, blood in stools or black stools and change in bowel habits : Negative for dysuria, frequency and incontinence MUSCULOSKELETAL: Negative for joint pain or swelling, back pain, and muscle pain. SKIN: Negative for lesions, rash, and itching. HEMATOLOGY/LYMPHOLOGY Negative for prolonged bleeding, bruising easily, and swollen nodes. NEURO: Negative for numbness or tingling of hands/feet. No weakness. PHYSICAL EXAMINATION: BP 176/85 Pulse 96 Temp (Src) 97.1 (Temporal) Resp 16 Ht 5' .433 (1.54m) Wt 83 lb 1.8 oz (37.7kg) SpO2 100% BMI 16.00 kg/(m^2). Wt 40.1 kg (88 lb 6.4 oz) BMI 16.71 kg/m2 Last 3 Encounter Wt Readings: Date: Wt: 07/19/2019 40.1 kg (88 lb 6.4 oz) 01/16/2019 40.6 kg (89 lb 6.4 oz) 08/01/2018 42.1 kg (92 lb 12.8 oz) General appearance:ECOG PERFORMANCE STATUS: 0- Fully active, able to carry on all pre-disease performance w/o restriction. Patient in NAD. Skin: Skin color, texture, turgor normal. No rashes or lesions. Eyes: Anicteric sclera. Pupils are equally round and reactive to light. Extraocular movements are intact. Lymph Nodes: No cervical, supraclavicular, axillary or inguinal adenopathy. Oropharynx: Lips, mucosa, and tongue normal. Back: No pain to percussion. Negative SLR test Lungs clear to auscultation, No wheezing or rhonchi Heart: RRR without murmur, gallop, or rubs. Abdomen soft, non-tender. No masses, organomegaly Extremities: No deformities. No edema Neuro: Gait and speech normal. Reflexes normal and symmetric. Muscular strength intact. Sensation grossly intact. Rectal: Deferred : Deferred LABS: Glucose (mg/dL) Date Value 10/03/2023 100 02/11/2021 118 Potassium (mmol/L) Date Value 10/03/2023 3.1 02/11/2021 4.0 Sodium (mmol/L) Date Value 10/03/2023 140 02/11/2021 138 Chloride (mmol/L) Date Value 10/03/2023 102 02/11/2021 104 CO2 (mmol/L) Date Value 10/03/2023 31 02/11/2021 26 Creatinine (mg/dL) Date Value 10/03/2023 0.73 02/11/2021 1.28 BUN (mg/dL) Date Value 10/03/2023 9 02/11/2021 26 Anion Gap (mmol/L) Date Value 10/03/2023 7 02/11/2021 8 Calcium (mg/dL) Date Value 02/11/2021 9.7 Calcium, Total (mg/dL) Date Value 10/03/2023 8.9 Protein, Total (g/dL) Date Value 10/03/2023 5.7 02/11/2021 6.7 02/11/2021 6.4 Albumin (g/dL) Date Value 10/03/2023 3.5 02/11/2021 4.6 Bilirubin, Total (mg/dL) Date Value 10/03/2023 0.3 02/11/2021 <0.2 Alkaline Phosphatase (U/L) Date Value 10/03/2023 114 02/11/2021 67 AST (U/L) Date Value 10/03/2023 15 02/11/2021 11 ALT (U/L) Date Value 10/03/2023 10 02/11/2021 5 WBC Date Value Ref Range Status 10/03/2023 6.83 3.70 - 11.00 k/uL Final RBC Date Value Ref Range Status 10/03/2023 3.42 (L) 3.90 - 5.20 m/uL Final Hemoglobin Date Value Ref Range Status 10/03/2023 12.6 11.5 - 15.5 g/dL Final Hematocrit Date Value Ref Range Status 10/03/2023 36.8 36.0 - 46.0 % Final MCV Date Value Ref Range Status 10/03/2023 107.6 (H) 80.0 - 100.0 fL Final MCH Date Value Ref Range Status 10/03/2023 36.8 (H) 26.0 - 34.0 pg Final MCHC Date Value Ref Range Status 10/03/2023 34.2 30.5 - 36.0 g/dL Final RDW-CV Date Value Ref Range Status 10/03/2023 13.5 11.5 - 15.0 % Final Platelet Count Date Value Ref Range Status 10/03/2023 143 (L) 150 - 400 k/uL Final MPV Date Value Ref Range Status 10/03/2023 9.8 9.0 - 12.7 fL Final Abs Neut Date Value Ref Range Status 10/03/2023 4.38 1.45 - 7.50 k/uL Final Lymphocytes % Date Value Ref Range Status 10/03/2023 22.3 % Final Abs Lymph Date Value Ref Range Status 10/03/2023 1.52 1.00 - 4.00 k/uL Final Monocytes % Date Value Ref Range Status 10/03/2023 10.4 % Final Abs [place] Date Value Ref Range Status 10/03/2023 0.71 <0.87 k/uL Final Abs Eosin Date Value Ref Range Status 10/03/2023 0.14 <0.46 k/uL Final Basophils % Date Value Ref Range Status 10/03/2023 0.6 % Final Abs Baso Date Value Ref Range Status 10/03/2023 0.04 <0.11 k/uL Final PATH: Saúl biopsy February 2017: Right lung, upper lobe nodule, endobronchial biopsy 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 Bronch Lingula and 4L 07/2022: A - TRANSBRONCHIAL FINE-NEEDLE ASPIRATION - LINGULA NODULE Positive for malignant cells. Adenocarcinoma. B - EBUS TRANSBRONCHIAL FINE NEEDLE ASPIRATE, LYMPH NODE - 4L Positive for malignant cells. Adenocarcinoma. Imaging: PET scan July 18, 2019: 1. NECK: * NO FDG AVID NEOPLASTIC PROCESS.. 2. CHEST: * NO FDG AVID NEOPLASTIC PROCESS. * 1.4 X 0.9 CM HYPOMETABOLIC RIGHT UPPER LOBE NODULE WITH ADJACENT PARENCHYMAL SCARRING LATERALLY, IMPROVED SINCE 01/09/2019. FINDINGS ARE COMPATIBLE WITH SATISFACTORY RESPONSE OF TREATED RIGHT UPPER LOBE NODULE POST CHEMORADIATION. * 0.6 CM AND 0.4 CM FAINT RIGHT MIDDLE LOBE GROUNDGLASS ATTENUATION DENSITIES, STABLE SINCE 09/12/2017. 3. ABDOMEN/PELVIS: * NO FDG AVID NEOPLASTIC PROCESS. . 4. EXTREMITIES/SKELETON: * NO SUSPICIOUS FDG AVID OSSEOUS LESION. CT of the chest with contrast January 20, 2020: 1. Interval decrease in size of right upper lobe nodular opacity, now measuring 1.5 cm in size. 2. Slight interval increase in surrounding groundglass and reticular opacities, likely on the basis of posttreatment change. 3. No evidence of bulky intrathoracic lymphadenopathy. CT scan of the chest August 12, 2020: 1. No interval change since 01/17/2020. 2. 1.3 x 0.7 cm right upper lobe nodular opacity, most likely the known primary neoplasm, stable 3. Adjacent right upper lobe patchy opacities most likely related to post radiation change or other infectious/inflammatory etiologies, stable. 4. Other small subcentimeter groundglass opacities in the right lung, stable. CT of the Chest 02/2021: 1. Right upper lobe post radiation change, increased since 08/07/20, now obscuring the previously described reticulonodular opacity. 2. Other small subcentimeter groundglass opacities in the right lung, Stable. MRI Brain 02/2021: CT Chest 08/2021: 1. Mild patchy airspace opacification within the lingula, favored to be infectious/inflammation. Continued attention on subsequent studies is suggested. 2. Since 02/25/2021, unchanged groundglass opacities within the right middle lobe measuring up to 0.5 cm. 3. 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 4. Unchanged moderate intrahepatic biliary ductal dilatation. MRI Brain 09/2021: CT Scan of the Chest and Abdomen and Pelvis 03/2022: 1. Interval development of a new 5 mm nodule in the right lower lobe. This may be infectious/inflammatory or neoplastic in nature. Recommend continued attention to this area on follow-up exams. 2. Stable appearance of 6 mm groundglass opacity in the right middle lobe. An additional 4 mm groundglass opacity more inferiorly in the right middle lobe appears slightly less conspicuous when compared to prior study. 3. Stable bandlike and nodular consolidative opacity in the right upper lobe and right suprahilar region, in keeping with postradiation fibrosis. 1. No evidence of metastatic disease in the abdomen or pelvis. 2. Moderate biliary ductal dilation, similar in appearance to prior CT chest, but new when compared to prior PET/CT. No obstructing calculus or mass is visualized. 3. Nonobstructive nephrolithiasis in the right kidney. CT Chest 06/2022: 1. New mild reticulonodular opacities in the right lower lobe most likely infectious/inflammatory in etiology. Superimposed neoplasm cannot be excluded. 2. 8 mm left upper lobe nodular opacity increased in size since 03/31/22, worrisome for neoplasm. 3. Other subcentimeter nodular opacities and groundglass opacities are stable. PET Scan 07/2022: 1. Neck: No suspicious hypermetabolic foci 2. Chest: Hypermetabolic nodule in the left upper lobe suspicious for neoplasm. No hypermetabolic lymphadenopathy. 3. Abdomen and pelvis: No evidence of FDG avid neoplastic process 4. Skeleton: No hypermetabolic osseous lesions MRI Brain 06/2022: CT 07/2022: 1. Few small groundglass and solid pulmonary nodules are noted. At least two of the solid nodules in the lingula and right lower lobe have increased in size since 06/23/2022 and are concerning for neoplastic/metastatic disease. 2. No new or increasing intrathoracic lymphadenopathy is noted. MRI Brain 12/2022: PET Scan 12/2022: IMPRESSION: HEAD/NECK: * No FDG avid neoplastic process. CHEST: * Enlarging FDG avid lingular nodule, bronchoscopy proven adenocarcinoma * FDG avid left mediastinal lymph nodes, likely metastatic * Postoperative changes right lower lobe wedge resection. Uptake near the site of resection, likely related to posttherapy changes and healing. Attention on follow-up CT scan of the chest. * Stable posttreatment changes within right upper lobe ABDOMEN/PELVIS: * No FDG avid neoplastic process. BONES/EXTREMITIES: * New focus of FDG uptake in right gluteal musculature, concerning for metastasis * No suspicious FDG avid osseous lesion. PET Scan 02/2023: 1. HEAD and NECK: No evidence of focal uptake to suggest FDG avid neoplastic process.. 2. CHEST: Status post resection of FDG avid nodules in the lingula and right lower lobe with residual inflammatory changes. Recommend follow-up with CT to rule out residual disease. 3. ABDOMEN/PELVIS: No evidence of focal uptake to suggest FDG avid neoplastic process.. 4. EXTREMITIES/SKELETON: No evidence of focal uptake to suggest FDG avid neoplastic process.. PET Scan 06/2023: HEAD/NECK: * No FDG avid neoplastic process. CHEST: * No FDG avid neoplastic process. ABDOMEN/PELVIS: * No FDG avid neoplastic process. MUSCULOSKELETAL: * No FDG avid neoplastic process. CT Scan of the Chest and Abdomen and Pelvis 09/2023: 1. Stable appearance of posttreatment change/treated neoplasm in the right upper lobe. Within the posterior right lower lobe, there is an area of nodularity measuring 8 x 6 mm. This is new when compared to the prior chest CT from 10/31/2022 but is stable when compared to the PET/CT from 06/14/2023. This was not FDG avid on the prior PET/CT. This abuts a linear opacity. Therefore, it is possible that this representing nodular component of atelectasis. Would advise continued close imaging surveillance and attention to this region. Additionally, there are stable groundglass opacities in the right middle lobe which should undergo continued close imaging surveillance. 2. No significant thoracic adenopathy. 1. No evidence of metastatic disease in the abdomen or pelvis. Assessment and Plan: Debby Hermosillo is a 58 year old year old female here for follow up. 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 06/2022 with enlarging TAM opacity has enlarged, PET scan confirms that the lesion is PET avid and does not detail any additional sites of disease. Patient was presented at the tumor board and repeat CT 07/2022 with increasing lingular and RLL lesion. She underwent a bronch and EBUS and the lingula and 4L node are both positive for Adenocarcinoma, RLL also adenocarcinoma and both lesions have similar molecular characteristics with KRAS A146V mutation and no other abnormalities and PDL-1 100%. PET with stage IV disease and MRI Brain negative. Started Single agent Pembro 01/04/2023. PET 06/[address] 09/2023 no progression , will continue Keytruda q 6 weeks Referral to Podiatry for onychomycosis Lasix and also Kcl for mild lower extremity swelling See back in 6 weeks for chemo and labs and Exam Thank you for the kind referral. If there are any questions and or concerns please do not hesitate to contact me at [phone]. Stacy Adhikari MD Hematology/Medical Oncology [facility] CC: Milton Madison MD I spent a total of 30 minutes on the date of the service which included preparing to see the patient, [id number] patient care, completing clinical documentation, obtaining and/or reviewing separately obtained history, performing a medically appropriate examination, counseling and educating the patient/family/caregiver and ordering medications, tests, or procedures. documented in this encounter [facility] 10-02-2023 Telephone encounter Note Message left with this information on pt's voicemail. Mila Briscoe RN [facility] Work Phone: 10-02-2023 Miscellaneous Notes Message left with this information on pt's voicemail. Mila Briscoe RN ----- Message from Stacy Adhikari MD sent at 10/02/2023 8:48 AM EDT ----- Please call with stable CT documented in this encounter [facility] 10-02-2023 Telephone encounter Note ----- Message from Stacy Adhikari MD sent at 10/02/2023 8:48 AM EDT ----- Please call with stable CT [facility] 09-28-2023 History of Present illness Narrative Radiology Service Progress Note DATE OF SERVICE: September 28, 2023 TIME: 7:57 AM PATIENT WEIGHT: 82LBS PATIENT IDENTITY VERIFICATION COMPLETED USING TWO (2) STANDARD IDENTIFIERS: Name and Date of confirmed by patient verbally. FALL SCREENING: Has the patient had 2 falls in the last year or 1 fall with injury or currently using an Ambulatory Assistive Device (Walker, Cane, Wheelchair, Crutches, etc.)? No PATIENT GENDER DATA: Female. status: : No status: NO. ALLERGIES: Reviewed and unchanged CONTRAST ALLERGY: No EXAM: CT -CONTRAST INDUCED NEPHROPATHY RISK FACTORS: Patient age > 60 years CREATININE: Creatinine Date Value Ref Range Status 08/22/2023 0.68 0.58 - 0.96 mg/dL Final 07/11/2023 0.80 0.58 - 0.96 mg/dL Final 06/20/2023 0.80 0.58 - 0.96 mg/dL Final Estimated Glomerular Filtration Rate Date Value Ref Range Status 08/22/2023 100 >=60 mL/min/1.73m Final Comment: Estimated Glomerular Filtration Rate (eGFR) is calculated using the 2020 CKD-EPI creatinine equation. This equation utilizes serum creatinine, sex, and age as parameters. The creatinine assay has traceable calibration to isotope dilution-mass spectrometry. Refer to KDIGO guidelines for clinical interpretation. In patients with unstable renal function, e.g. those with acute kidney injury, the eGFR may not accurately reflect actual GFR. eGFR- Date Value Ref Range Status 02/11/2021 52 Final P.O.C.T. RESULTS: POC done: Yes, See Lab Tab September 28, 2023 TREATMENT: N/A IV SITE: Ambulatory: A peripheral IV was started in the Right with a Angio cath: 20 gauge. IV SITE APPEARANCE: Clean,Dry and Intact SIGNATURE: Kerri Sethi RN PATIENT NAME: Debby Hermosillo DATE: September 28, 2023 TIME: 7:57 AM Radiology Service Progress Note PATIENT NAME: Debby Hermosillo DATE OF SERVICE: September 28, 2023 TIME: 8:42 AM PATIENT IDENTITY VERIFICATION COMPLETED USING TWO (2) IDENTIFIERS: Name and Date of confirmed by patient verbally. FALL SCREENING: Has the patient had 2 falls in the last year or 1 fall with injury or currently using an Ambulatory Assistive Device (Walker, Cane, Wheelchair, Crutches, etc.)? No PATIENT GENDER DATA: Female. status: : No status: NO. PATIENT RELEVANT IMPLANT DATA REVIEWED: Not Applicable PATIENT PRESENTS WITH AN IMPLANTABLE OR ATTACHED ENVIRONMENTAL RESEARCH SCIENTIST: No RADIOLOGY DEPARTMENT: CT; Exam(s) Completed: Chest Abdomen Pelvis PERIPHERAL IV DATA: Site assessment: Clean,Dry and Intact, Site disposition Discontinued SIGNED BY: Becky Ledezma, RT(R) September 28, 2023 8:42 AM documented in this encounter [facility] 09-28-2023 Note [facility] 09-28-2023 Note [facility] 08-29-2023 Telephone encounter Note Please sign pending lab orders. Thanks Mila Briscoe RN [facility] 08-29-2023 Miscellaneous Notes Please sign pending lab orders. Thanks Mila Briscoe RN documented in this encounter [facility] 08-28-2023 Telephone encounter Note Patient is scheduled for labwork on 08/28 at 2pm. Mary - For possible treatment scheduling. Thanks, Chani Connors [facility] 08-28-2023 Miscellaneous Notes Patient is scheduled for labwork on 08/28 at 2pm. Mary - For possible treatment scheduling. Thanks, Chani Connors Iron studies pended for you to sign. PSS-please schedule pt for lab only appointment. Also can we check her iron studies I send the Olanzapine for her already Pt forgot to tell you that she has noticed recently that her hair is falling out in handfuls. She wanted you to know that she's had a b12 deficiency in the past. Pt is also expecting a script for appetite stimulant that you talked about. documented in this encounter [facility] 08-28-2023 Telephone encounter Note Iron studies pended for you to sign. PSS-please schedule pt for lab only appointment. [facility] 08-24-2023 Telephone encounter Note Also can we check her iron studies [facility] 08-23-2023 Telephone encounter Note I send the Olanzapine for her already [facility] 08-22-2023 Telephone encounter Note Pt forgot to tell you that she has noticed recently that her hair is falling out in handfuls. She wanted you to know that she's had a b12 deficiency in the past. Pt is also expecting a script for appetite stimulant that you talked about. [facility] 08-22-2023 Note [facility] 08-22-2023 History of Present illness Narrative Patient forgot to mention to Dr Adhikari that she has been losing her hair by the hand full. Discussed with truck driver teamster, Fabiano Corrales RN who will send a phone enc to notify provider Sally Blanco RN documented in this encounter [facility] 08-22-2023 Note [facility] 08-22-2023 History of Present illness Narrative Images from the original note were not included. PATIENT NAME: Debby Hermosillo CLINIC NO.: [id number] ATTENDING PHYSICIAN: Stacy Adhikari MD DATE OF SERVICE: August 22, 2023 Some of the elements of this note have been copied from my previous progress note dated 06/20/2023. All the information has been reviewed carefully. Dear Dr. Gasper Beaver MD here is an update on a follow up visit on female Debby Hermosillo at the clinic August 22, 2023 Diagnosis: 1. 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 Previously managed by Dr. Beaver 2. Recurrent Adenocarcinoma- Stage IV 07/2022, confirmed 11/2022- Adenocarcinoma- KRAS A146V, P53, PDL-1 100%, ALK, ROS-1, NTRK, Her-2 and RET fusions, BRAF negative. Guardant 360 08/2022: MICHAEL splice site SNV, JAYLIN Treatment History: 1. Carboplatin and etoposide started March 24, 2017, combined with radiation. Radiotherapy completed May 17, 2017 right upper lobe Patient received a total of 5 cycles of carboplatin and etoposide last on July 12, 2017 Patient was subsequently placed on Imfinzi Per Dr. Beaver and last dose April 09, 2018 and per review of my notes stopped secondary to pancreatitis. 2. Keytruda 01/04/2023 HPI: Debby Hermosillo is a 58 year old year old female here for follow up. She is doing well and denies any rash, diarrhea and or SOB and or cough. She has had loss of appetite. PAST MEDICAL HISTORY Diagnosis Date Acute, but ill-defined, cerebrovascular disease 10/2021 Adenocarcinoma of left lung (HCC) 08/10/2022 4L and Lingula Arthritis Asthma Back pain chronic Carpal tunnel syndrome, bilateral s/p repair - 2016 Current smoker DDD (degenerative disc disease), lumbar GERD (gastroesophageal reflux disease) Kidney stones Malignant neoplasm of lower lobe of right lung (HCC) 11/15/2022 Neck pain Neuropathy unclear origin- 6 months? saw neurologist (Dr. Hearn- In [facility]); possible MS? 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 Social History Tobacco Use Smoking status: Every Day Packs/day: 1.50 Years: 45.00 Additional pack years: 0.00 Total pack years: 67.50 Types: Cigarettes Smokeless tobacco: Never Tobacco comments: 4 cigs per day Vaping Use Vaping Use: Never used Substance Use Topics Alcohol use: No Drug use: Yes Frequency: 1.0 times per week Types: Marijuana Comment: previous marijuana FAMILY HISTORY Problem Relation Age of Onset Arthritis Mother Diabetes Mother Cancer Mother bowel, thyroid Hypertension Father other (cabg) Father Cancer Brother colon Cancer Brother colon other (leukemia) Brother Diabetes Sister Diabetes Sister Diabetes Sister Past medical, social and family history reviewed without any changes. REVIEW OF SYSTEMS GENERAL: No weight loss, malaise or fevers. No night sweats. HEENT: Negative for headaches, No changes in hearing or vision, no nose bleeds or other nasal problems. RESPIRATORY: Negative for cough, wheezing and shortness of breath CARDIOVASCULAR: Negative for chest pain, leg swelling and palpitations GI: Negative for abdominal discomfort, blood in stools or black stools and change in bowel habits : Negative for dysuria, frequency and incontinence MUSCULOSKELETAL: Negative for joint pain or swelling, back pain, and muscle pain. SKIN: Negative for lesions, rash, and itching. HEMATOLOGY/LYMPHOLOGY Negative for prolonged bleeding, bruising easily, and swollen nodes. NEURO: Negative for numbness or tingling of hands/feet. No weakness. PHYSICAL EXAMINATION: BP 166/91 Pulse 90 Temp (Src) 97.4 (Temporal) Resp 16 Ht 5' .433 (1.54m) Wt 85 lb 1.6 oz (38.6kg) SpO2 97% BMI 16.38 kg/(m^2). Wt 40.1 kg (88 lb 6.4 oz) BMI 16.71 kg/m2 Last 3 Encounter Wt Readings: Date: Wt: 07/19/2019 40.1 kg (88 lb 6.4 oz) 01/16/2019 40.6 kg (89 lb 6.4 oz) 08/01/2018 42.1 kg (92 lb 12.8 oz) General appearance:ECOG PERFORMANCE STATUS: 0- Fully active, able to carry on all pre-disease performance w/o restriction. Patient in NAD. Skin: Skin color, texture, turgor normal. No rashes or lesions. Eyes: Anicteric sclera. Pupils are equally round and reactive to light. Extraocular movements are intact. Lymph Nodes: No cervical, supraclavicular, axillary or inguinal adenopathy. Oropharynx: Lips, mucosa, and tongue normal. Back: No pain to percussion. Negative SLR test Lungs clear to auscultation, No wheezing or rhonchi Heart: RRR without murmur, gallop, or rubs. Abdomen soft, non-tender. No masses, organomegaly Extremities: No deformities. No edema Neuro: Gait and speech normal. Reflexes normal and symmetric. Muscular strength intact. Sensation grossly intact. Rectal: Deferred : Deferred LABS: Glucose (mg/dL) Date Value 07/11/2023 100 02/11/2021 118 Potassium (mmol/L) Date Value 07/11/2023 3.8 02/11/2021 4.0 Sodium (mmol/L) Date Value 07/11/2023 141 02/11/2021 138 Chloride (mmol/L) Date Value 07/11/2023 106 02/11/2021 104 CO2 (mmol/L) Date Value 07/11/2023 29 02/11/2021 26 Creatinine (mg/dL) Date Value 07/11/2023 0.80 02/11/2021 1.28 BUN (mg/dL) Date Value 07/11/2023 13 02/11/2021 26 Anion Gap (mmol/L) Date Value 07/11/2023 6 02/11/2021 8 Calcium (mg/dL) Date Value 02/11/2021 9.7 Calcium, Total (mg/dL) Date Value 07/11/2023 8.8 Protein, Total (g/dL) Date Value 07/11/2023 6.0 02/11/2021 6.7 02/11/2021 6.4 Albumin (g/dL) Date Value 07/11/2023 3.8 02/11/2021 4.6 Bilirubin, Total (mg/dL) Date Value 07/11/2023 0.3 02/11/2021 <0.2 Alkaline Phosphatase (U/L) Date Value 07/11/2023 116 02/11/2021 67 AST (U/L) Date Value 07/11/2023 13 02/11/2021 11 ALT (U/L) Date Value 07/11/2023 8 02/11/2021 5 WBC Date Value Ref Range Status 08/22/2023 7.14 3.70 - 11.00 k/uL Final RBC Date Value Ref Range Status 08/22/2023 3.40 (L) 3.90 - 5.20 m/uL Final Hemoglobin Date Value Ref Range Status 08/22/2023 12.6 11.5 - 15.5 g/dL Final Hematocrit Date Value Ref Range Status 08/22/2023 36.5 36.0 - 46.0 % Final MCV Date Value Ref Range Status 08/22/2023 107.4 (H) 80.0 - 100.0 fL Final MCH Date Value Ref Range Status 08/22/2023 37.1 (H) 26.0 - 34.0 pg Final MCHC Date Value Ref Range Status 08/22/2023 34.5 30.5 - 36.0 g/dL Final RDW-CV Date Value Ref Range Status 08/22/2023 12.5 11.5 - 15.0 % Final Platelet Count Date Value Ref Range Status 08/22/2023 159 150 - 400 k/uL Final MPV Date Value Ref Range Status 08/22/2023 9.3 9.0 - 12.7 fL Final Abs Neut Date Value Ref Range Status 08/22/2023 4.58 1.45 - 7.50 k/uL Final Lymphocytes % Date Value Ref Range Status 08/22/2023 23.2 % Final Abs Lymph Date Value Ref Range Status 08/22/2023 1.66 1.00 - 4.00 k/uL Final Monocytes % Date Value Ref Range Status 08/22/2023 9.9 % Final Abs [place] Date Value Ref Range Status 08/22/2023 0.71 <0.87 k/uL Final Abs Eosin Date Value Ref Range Status 08/22/2023 0.15 <0.46 k/uL Final Basophils % Date Value Ref Range Status 08/22/2023 0.3 % Final Abs Baso Date Value Ref Range Status 08/22/2023 <0.03 <0.11 k/uL Final PATH: Saúl biopsy February 2017: Right lung, upper lobe nodule, endobronchial biopsy 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 Bronch Lingula and 4L 07/2022: A - TRANSBRONCHIAL FINE-NEEDLE ASPIRATION - LINGULA NODULE Positive for malignant cells. Adenocarcinoma. B - EBUS TRANSBRONCHIAL FINE NEEDLE ASPIRATE, LYMPH NODE - 4L Positive for malignant cells. Adenocarcinoma. Imaging: PET scan July 18, 2019: 1. NECK: * NO FDG AVID NEOPLASTIC PROCESS.. 2. CHEST: * NO FDG AVID NEOPLASTIC PROCESS. * 1.4 X 0.9 CM HYPOMETABOLIC RIGHT UPPER LOBE NODULE WITH ADJACENT PARENCHYMAL SCARRING LATERALLY, IMPROVED SINCE 01/09/2019. FINDINGS ARE COMPATIBLE WITH SATISFACTORY RESPONSE OF TREATED RIGHT UPPER LOBE NODULE POST CHEMORADIATION. * 0.6 CM AND 0.4 CM FAINT RIGHT MIDDLE LOBE GROUNDGLASS ATTENUATION DENSITIES, STABLE SINCE 09/12/2017. 3. ABDOMEN/PELVIS: * NO FDG AVID NEOPLASTIC PROCESS. . 4. EXTREMITIES/SKELETON: * NO SUSPICIOUS FDG AVID OSSEOUS LESION. CT of the chest with contrast January 20, 2020: 1. Interval decrease in size of right upper lobe nodular opacity, now measuring 1.5 cm in size. 2. Slight interval increase in surrounding groundglass and reticular opacities, likely on the basis of posttreatment change. 3. No evidence of bulky intrathoracic lymphadenopathy. CT scan of the chest August 12, 2020: 1. No interval change since 01/17/2020. 2. 1.3 x 0.7 cm right upper lobe nodular opacity, most likely the known primary neoplasm, stable 3. Adjacent right upper lobe patchy opacities most likely related to post radiation change or other infectious/inflammatory etiologies, stable. 4. Other small subcentimeter groundglass opacities in the right lung, stable. CT of the Chest 02/2021: 1. Right upper lobe post radiation change, increased since 08/07/20, now obscuring the previously described reticulonodular opacity. 2. Other small subcentimeter groundglass opacities in the right lung, Stable. MRI Brain 02/2021: CT Chest 08/2021: 1. Mild patchy airspace opacification within the lingula, favored to be infectious/inflammation. Continued attention on subsequent studies is suggested. 2. Since 02/25/2021, unchanged groundglass opacities within the right middle lobe measuring up to 0.5 cm. 3. 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 4. Unchanged moderate intrahepatic biliary ductal dilatation. MRI Brain 09/2021: CT Scan of the Chest and Abdomen and Pelvis 03/2022: 1. Interval development of a new 5 mm nodule in the right lower lobe. This may be infectious/inflammatory or neoplastic in nature. Recommend continued attention to this area on follow-up exams. 2. Stable appearance of 6 mm groundglass opacity in the right middle lobe. An additional 4 mm groundglass opacity more inferiorly in the right middle lobe appears slightly less conspicuous when compared to prior study. 3. Stable bandlike and nodular consolidative opacity in the right upper lobe and right suprahilar region, in keeping with postradiation fibrosis. 1. No evidence of metastatic disease in the abdomen or pelvis. 2. Moderate biliary ductal dilation, similar in appearance to prior CT chest, but new when compared to prior PET/CT. No obstructing calculus or mass is visualized. 3. Nonobstructive nephrolithiasis in the right kidney. CT Chest 06/2022: 1. New mild reticulonodular opacities in the right lower lobe most likely infectious/inflammatory in etiology. Superimposed neoplasm cannot be excluded. 2. 8 mm left upper lobe nodular opacity increased in size since 03/31/22, worrisome for neoplasm. 3. Other subcentimeter nodular opacities and groundglass opacities are stable. PET Scan 07/2022: 1. Neck: No suspicious hypermetabolic foci 2. Chest: Hypermetabolic nodule in the left upper lobe suspicious for neoplasm. No hypermetabolic lymphadenopathy. 3. Abdomen and pelvis: No evidence of FDG avid neoplastic process 4. Skeleton: No hypermetabolic osseous lesions MRI Brain 06/2022: CT 07/2022: 1. Few small groundglass and solid pulmonary nodules are noted. At least two of the solid nodules in the lingula and right lower lobe have increased in size since 06/23/2022 and are concerning for neoplastic/metastatic disease. 2. No new or increasing intrathoracic lymphadenopathy is noted. MRI Brain 12/2022: PET Scan 12/2022: IMPRESSION: HEAD/NECK: * No FDG avid neoplastic process. CHEST: * Enlarging FDG avid lingular nodule, bronchoscopy proven adenocarcinoma * FDG avid left mediastinal lymph nodes, likely metastatic * Postoperative changes right lower lobe wedge resection. Uptake near the site of resection, likely related to posttherapy changes and healing. Attention on follow-up CT scan of the chest. * Stable posttreatment changes within right upper lobe ABDOMEN/PELVIS: * No FDG avid neoplastic process. BONES/EXTREMITIES: * New focus of FDG uptake in right gluteal musculature, concerning for metastasis * No suspicious FDG avid osseous lesion. PET Scan 02/2023: 1. HEAD and NECK: No evidence of focal uptake to suggest FDG avid neoplastic process.. 2. CHEST: Status post resection of FDG avid nodules in the lingula and right lower lobe with residual inflammatory changes. Recommend follow-up with CT to rule out residual disease. 3. ABDOMEN/PELVIS: No evidence of focal uptake to suggest FDG avid neoplastic process.. 4. EXTREMITIES/SKELETON: No evidence of focal uptake to suggest FDG avid neoplastic process.. PET Scan 06/2023: HEAD/NECK: * No FDG avid neoplastic process. CHEST: * No FDG avid neoplastic process. ABDOMEN/PELVIS: * No FDG avid neoplastic process. MUSCULOSKELETAL: * No FDG avid neoplastic process. Assessment and Plan: Debby Hermosillo is a 58 year old year old female here for follow up. 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 06/2022 with enlarging TAM opacity has enlarged, PET scan confirms that the lesion is PET avid and does not detail any additional sites of disease. Patient was presented at the tumor board and repeat CT 07/2022 with increasing lingular and RLL lesion. She underwent a bronch and EBUS and the lingula and 4L node are both positive for Adenocarcinoma, RLL also adenocarcinoma and both lesions have similar molecular characteristics with KRAS A146V mutation and no other abnormalities and PDL-1 100%. PET with stage IV disease and MRI Brain negative. Started Single agent Pembro 01/04/2023. PET 06/2023 in [place] and discussed and will continue Keytruda and she is on a q 6 week schedule Olanzapine for appetite See back in 6 weeks for chemo and labs and Exam and also repeat CT to assess disease status Thank you for the kind referral. If there are any questions and or concerns please do not hesitate to contact me at [phone]. Stacy Adhikari MD Hematology/Medical Oncology [facility] CC: Milton Madison MD I spent a total of 30 minutes on the date of the service which included preparing to see the patient, [id number] patient care, completing clinical documentation, obtaining and/or reviewing separately obtained history, performing a medically appropriate examination, counseling and educating the patient/family/caregiver and ordering medications, tests, or procedures. documented in this encounter [facility] 07-11-2023 History of Present illness Narrative Images from the original note were not included. PATIENT NAME: Debby Gann Hermosillo [facility] NO.: [id number] ATTENDING PHYSICIAN: Stacy Adhikari MD DATE OF SERVICE: July 11, 2023 (Elements copied from Dr. Adhikari's note dated June 20, 2023, have been reviewed and updated where appropriate, and all reflect current assessment and medical decision making during today's encounter, July 11, 2023) CC: Follow up and treatment Diagnosis: 1. 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 Previously managed by Dr. Beaver 2. Recurrent Adenocarcinoma- Stage IV 07/2022, confirmed 11/2022- Adenocarcinoma- KRAS A146V, P53, PDL-1 100%, ALK, ROS-1, NTRK, Her-2 and RET fusions, BRAF negative. Guardant 360 08/2022: MICHAEL splice site SNV, JAYLIN Treatment History: 1. Carboplatin and etoposide started March 24, 2017, combined with radiation. Radiotherapy completed May 17, 2017 right upper lobe Patient received a total of 5 cycles of carboplatin and etoposide last on July 12, 2017 Patient was subsequently placed on Imfinzi Per Dr. Beaver and last dose April 09, 2018 and per review of my notes stopped secondary to pancreatitis. 2. Keytruda 01/04/2023 HPI: Debby returns for follow up. Overall doing well. Her appetite remains poor. She is still taking her GI meds. She has breakthrough nausea still. She has maintained her weight. Denies any diarrhea, rash, itching, or shortness of breath. PAST MEDICAL HISTORY Diagnosis Date Acute, but ill-defined, cerebrovascular disease 10/2021 Adenocarcinoma of left lung (HCC) 08/10/2022 4L and Lingula Arthritis Asthma Back pain chronic Carpal tunnel syndrome, bilateral s/p repair - 2016 Current smoker DDD (degenerative disc disease), lumbar GERD (gastroesophageal reflux disease) Kidney stones Malignant neoplasm of lower lobe of right lung (HCC) 11/15/2022 Neck pain Neuropathy unclear origin- 6 months? saw neurologist (Dr. Hearn- In [facility]); possible MS? 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 Social History Tobacco Use Smoking status: Every Day Packs/day: 1.50 Years: 45.00 Additional pack years: 0.00 Total pack years: 67.50 Types: Cigarettes Smokeless tobacco: Never Tobacco comments: 4 cigs per day Vaping Use Vaping Use: Never used Substance Use Topics Alcohol use: No Drug use: Yes Frequency: 1.0 times per week Types: Marijuana Comment: previous marijuana FAMILY HISTORY Problem Relation Age of Onset Arthritis Mother Diabetes Mother Cancer Mother bowel, thyroid Hypertension Father other (cabg) Father Cancer Brother colon Cancer Brother colon other (leukemia) Brother Diabetes Sister Diabetes Sister Diabetes Sister Past medical, social and family history reviewed without any changes. REVIEW OF SYSTEMS GENERAL: No weight loss, malaise or fevers. No night sweats. HEENT: Negative for headaches, No changes in hearing or vision, no nose bleeds or other nasal problems. RESPIRATORY: Negative for cough, wheezing and shortness of breath CARDIOVASCULAR: Negative for chest pain, leg swelling and palpitations GI: Negative for abdominal discomfort, blood in stools or black stools and change in bowel habits +chronic nausea : Negative for dysuria, frequency and incontinence MUSCULOSKELETAL: Negative for joint pain or swelling, back pain, and muscle pain. SKIN: Negative for lesions, rash, and itching. HEMATOLOGY/LYMPHOLOGY Negative for prolonged bleeding, bruising easily, and swollen nodes. NEURO: Negative for numbness or tingling of hands/feet. No weakness. PHYSICAL EXAMINATION: BP 169/74[recheck[ Pulse 87 Temp (Src) 97.1 (Temporal) Resp 16 Ht 5' .433 (1.54m) Wt 87 lb 11.9 oz (39.8kg) SpO2 99% BMI 16.89 kg/(m^2). ECOG PERFORMANCE STATUS: 0- Fully active, able to carry on all pre-disease performance w/o restriction. General: Alert and oriented, no distress, pleasant and cooperative. Heart: Regular, normal S1 and S2, no murmurs, rubs, or gallops Lungs: Clear to auscultation bilaterally Abdomen: Benign Extremities: Feet/ankles without edema, posterior tibial pulses full and symmetrical LABS: Glucose (mg/dL) Date Value 07/11/2023 100 02/11/2021 118 Potassium (mmol/L) Date Value 07/11/2023 3.8 02/11/2021 4.0 Sodium (mmol/L) Date Value 07/11/2023 141 02/11/2021 138 Chloride (mmol/L) Date Value 07/11/2023 106 02/11/2021 104 CO2 (mmol/L) Date Value 07/11/2023 29 02/11/2021 26 Creatinine (mg/dL) Date Value 07/11/2023 0.80 02/11/2021 1.28 BUN (mg/dL) Date Value 07/11/2023 13 02/11/2021 26 Anion Gap (mmol/L) Date Value 07/11/2023 6 02/11/2021 8 Calcium (mg/dL) Date Value 02/11/2021 9.7 Calcium, Total (mg/dL) Date Value 07/11/2023 8.8 Protein, Total (g/dL) Date Value 07/11/2023 6.0 02/11/2021 6.7 02/11/2021 6.4 Albumin (g/dL) Date Value 07/11/2023 3.8 02/11/2021 4.6 Bilirubin, Total (mg/dL) Date Value 07/11/2023 0.3 02/11/2021 <0.2 Alkaline Phosphatase (U/L) Date Value 07/11/2023 116 02/11/2021 67 AST (U/L) Date Value 07/11/2023 13 02/11/2021 11 ALT (U/L) Date Value 07/11/2023 8 02/11/2021 5 WBC Date Value Ref Range Status 07/11/2023 5.85 3.70 - 11.00 k/uL Final RBC Date Value Ref Range Status 07/11/2023 3.23 (L) 3.90 - 5.20 m/uL Final Hemoglobin Date Value Ref Range Status 07/11/2023 11.8 11.5 - 15.5 g/dL Final Hematocrit Date Value Ref Range Status 07/11/2023 34.9 (L) 36.0 - 46.0 % Final MCV Date Value Ref Range Status 07/11/2023 108.0 (H) 80.0 - 100.0 fL Final MCH Date Value Ref Range Status 07/11/2023 36.5 (H) 26.0 - 34.0 pg Final MCHC Date Value Ref Range Status 07/11/2023 33.8 30.5 - 36.0 g/dL Final RDW-CV Date Value Ref Range Status 07/11/2023 13.1 11.5 - 15.0 % Final Platelet Count Date Value Ref Range Status 07/11/2023 173 150 - 400 k/uL Final MPV Date Value Ref Range Status 07/11/2023 9.2 9.0 - 12.7 fL Final Abs Neut Date Value Ref Range Status 07/11/2023 3.62 1.45 - 7.50 k/uL Final Lymphocytes % Date Value Ref Range Status 07/11/2023 23.1 % Final Abs Lymph Date Value Ref Range Status 07/11/2023 1.35 1.00 - 4.00 k/uL Final Monocytes % Date Value Ref Range Status 07/11/2023 10.3 % Final Abs [place] Date Value Ref Range Status 07/11/2023 0.60 <0.87 k/uL Final Abs Eosin Date Value Ref Range Status 07/11/2023 0.22 <0.46 k/uL Final Basophils % Date Value Ref Range Status 07/11/2023 0.3 % Final Abs Baso Date Value Ref Range Status 07/11/2023 <0.03 <0.11 k/uL Final PATH: Saúl biopsy February 2017: Right lung, upper lobe nodule, endobronchial biopsy 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 Bronch Lingula and 4L 07/2022: A - TRANSBRONCHIAL FINE-NEEDLE ASPIRATION - LINGULA NODULE Positive for malignant cells. Adenocarcinoma. B - EBUS TRANSBRONCHIAL FINE NEEDLE ASPIRATE, LYMPH NODE - 4L Positive for malignant cells. Adenocarcinoma. Imaging: PET scan July 18, 2019: 1. NECK: * NO FDG AVID NEOPLASTIC PROCESS.. 2. CHEST: * NO FDG AVID NEOPLASTIC PROCESS. * 1.4 X 0.9 CM HYPOMETABOLIC RIGHT UPPER LOBE NODULE WITH ADJACENT PARENCHYMAL SCARRING LATERALLY, IMPROVED SINCE 01/09/2019. FINDINGS ARE COMPATIBLE WITH SATISFACTORY RESPONSE OF TREATED RIGHT UPPER LOBE NODULE POST CHEMORADIATION. * 0.6 CM AND 0.4 CM FAINT RIGHT MIDDLE LOBE GROUNDGLASS ATTENUATION DENSITIES, STABLE SINCE 09/12/2017. 3. ABDOMEN/PELVIS: * NO FDG AVID NEOPLASTIC PROCESS. . 4. EXTREMITIES/SKELETON: * NO SUSPICIOUS FDG AVID OSSEOUS LESION. CT of the chest with contrast January 20, 2020: 1. Interval decrease in size of right upper lobe nodular opacity, now measuring 1.5 cm in size. 2. Slight interval increase in surrounding groundglass and reticular opacities, likely on the basis of posttreatment change. 3. No evidence of bulky intrathoracic lymphadenopathy. CT scan of the chest August 12, 2020: 1. No interval change since 01/17/2020. 2. 1.3 x 0.7 cm right upper lobe nodular opacity, most likely the known primary neoplasm, stable 3. Adjacent right upper lobe patchy opacities most likely related to post radiation change or other infectious/inflammatory etiologies, stable. 4. Other small subcentimeter groundglass opacities in the right lung, stable. CT of the Chest 02/2021: 1. Right upper lobe post radiation change, increased since 08/07/20, now obscuring the previously described reticulonodular opacity. 2. Other small subcentimeter groundglass opacities in the right lung, Stable. MRI Brain 02/2021: CT Chest 08/2021: 1. Mild patchy airspace opacification within the lingula, favored to be infectious/inflammation. Continued attention on subsequent studies is suggested. 2. Since 02/25/2021, unchanged groundglass opacities within the right middle lobe measuring up to 0.5 cm. 3. 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 4. Unchanged moderate intrahepatic biliary ductal dilatation. MRI Brain 09/2021: CT Scan of the Chest and Abdomen and Pelvis 03/2022: 1. Interval development of a new 5 mm nodule in the right lower lobe. This may be infectious/inflammatory or neoplastic in nature. Recommend continued attention to this area on follow-up exams. 2. Stable appearance of 6 mm groundglass opacity in the right middle lobe. An additional 4 mm groundglass opacity more inferiorly in the right middle lobe appears slightly less conspicuous when compared to prior study. 3. Stable bandlike and nodular consolidative opacity in the right upper lobe and right suprahilar region, in keeping with postradiation fibrosis. 1. No evidence of metastatic disease in the abdomen or pelvis. 2. Moderate biliary ductal dilation, similar in appearance to prior CT chest, but new when compared to prior PET/CT. No obstructing calculus or mass is visualized. 3. Nonobstructive nephrolithiasis in the right kidney. CT Chest 06/2022: 1. New mild reticulonodular opacities in the right lower lobe most likely infectious/inflammatory in etiology. Superimposed neoplasm cannot be excluded. 2. 8 mm left upper lobe nodular opacity increased in size since 03/31/22, worrisome for neoplasm. 3. Other subcentimeter nodular opacities and groundglass opacities are stable. PET Scan 07/2022: 1. Neck: No suspicious hypermetabolic foci 2. Chest: Hypermetabolic nodule in the left upper lobe suspicious for neoplasm. No hypermetabolic lymphadenopathy. 3. Abdomen and pelvis: No evidence of FDG avid neoplastic process 4. Skeleton: No hypermetabolic osseous lesions MRI Brain 06/2022: CT 07/2022: 1. Few small groundglass and solid pulmonary nodules are noted. At least two of the solid nodules in the lingula and right lower lobe have increased in size since 06/23/2022 and are concerning for neoplastic/metastatic disease. 2. No new or increasing intrathoracic lymphadenopathy is noted. MRI Brain 12/2022: PET Scan 12/2022: IMPRESSION: HEAD/NECK: * No FDG avid neoplastic process. CHEST: * Enlarging FDG avid lingular nodule, bronchoscopy proven adenocarcinoma * FDG avid left mediastinal lymph nodes, likely metastatic * Postoperative changes right lower lobe wedge resection. Uptake near the site of resection, likely related to posttherapy changes and healing. Attention on follow-up CT scan of the chest. * Stable posttreatment changes within right upper lobe ABDOMEN/PELVIS: * No FDG avid neoplastic process. BONES/EXTREMITIES: * New focus of FDG uptake in right gluteal musculature, concerning for metastasis * No suspicious FDG avid osseous lesion. PET Scan 02/2023: 1. HEAD and NECK: No evidence of focal uptake to suggest FDG avid neoplastic process.. 2. CHEST: Status post resection of FDG avid nodules in the lingula and right lower lobe with residual inflammatory changes. Recommend follow-up with CT to rule out residual disease. 3. ABDOMEN/PELVIS: No evidence of focal uptake to suggest FDG avid neoplastic process.. 4. EXTREMITIES/SKELETON: No evidence of focal uptake to suggest FDG avid neoplastic process.. PET Scan 06/2023: HEAD/NECK: * No FDG avid neoplastic process. CHEST: * No FDG avid neoplastic process. ABDOMEN/PELVIS: * No FDG avid neoplastic process. MUSCULOSKELETAL: * No FDG avid neoplastic process. Assessment and Plan: Debby Hermosillo is a 57 year old year old female here for follow up. 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 06/2022 with enlarging TAM opacity has enlarged, PET scan confirms that the lesion is PET avid and does not detail any additional sites of disease. Patient was presented at the tumor board and repeat CT 07/2022 with increasing lingular and RLL lesion. She underwent a bronch and EBUS and the lingula and 4L node are both positive for Adenocarcinoma, RLL also adenocarcinoma and both lesions have similar molecular characteristics with KRAS A146V mutation and no other abnormalities and PDL-1 100%. PET with stage IV disease and MRI Brain negative. Started Single agent Pembro 01/04/2023. PET 06/2023 in CR and discussed switching to q 6 weeks Keytruda today. Treatment today and return in 6 weeks. Noemí Jolley PA-C I spent a total of 20 minutes on the date of the service which included preparing to see the patient, [id number] patient care, completing clinical documentation, performing a medically appropriate examination, counseling and educating the patient/family/caregiver, ordering medications, tests, or procedures, independently interpreting results (not separately reported), and communicating results to the patient/family/caregiver. documented in this encounter [facility] 07-11-2023 Note [facility] 06-23-2023 Miscellaneous Notes Thanks Can we start Abx? Thanks Ideally we would do a urinalysis, culture and sensitivity, but with it being the weekend, she can start an antibiotic, but if her symptoms worsen, or if she develops fevers or flank pain she will need to go to ER. Noemí Jolley PA-C documented in this encounter [facility] 06-20-2023 Note [facility] 06-20-2023 History of Present illness Narrative Images from the original note were not included. PATIENT NAME: Debby Hermosillo CLINIC NO.: [id number] ATTENDING PHYSICIAN: Stacy Adhikari MD DATE OF SERVICE: June 20, 2023 Some of the elements of this note have been copied from my previous progress note dated 03/08/2023. All the information has been reviewed carefully. Dear Dr. Gasper Beaver MD here is an update on a follow up visit on female Debby Hermosillo at the clinic June 20, 2023 Diagnosis: 1. 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 Previously managed by Dr. Beaver 2. Recurrent Adenocarcinoma- Stage IV 07/2022, confirmed 11/2022- Adenocarcinoma- KRAS A146V, P53, PDL-1 100%, ALK, ROS-1, NTRK, Her-2 and RET fusions, BRAF negative. Guardant 360 08/2022: MICHAEL splice site SNV, JAYLIN Treatment History: 1. Carboplatin and etoposide started March 24, 2017, combined with radiation. Radiotherapy completed May 17, 2017 right upper lobe Patient received a total of 5 cycles of carboplatin and etoposide last on July 12, 2017 Patient was subsequently placed on Imfinzi Per Dr. Beaver and last dose April 09, 2018 and per review of my notes stopped secondary to pancreatitis. 2. Keytruda 01/04/2023 HPI: Debby Hermosillo is a 57 year old year old female here for follow up. She is doing well and denies any rash, diarrhea and or SOB and or cough. PAST MEDICAL HISTORY Diagnosis Date Acute, but ill-defined, cerebrovascular disease 10/2021 Adenocarcinoma of left lung (HCC) 08/10/2022 4L and Lingula Arthritis Asthma Back pain chronic Carpal tunnel syndrome, bilateral s/p repair - 2016 Current smoker DDD (degenerative disc disease), lumbar GERD (gastroesophageal reflux disease) Kidney stones Malignant neoplasm of lower lobe of right lung (HCC) 11/15/2022 Neck pain Neuropathy unclear origin- 6 months? saw neurologist (Dr. Hearn- In [facility]); possible MS? 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 Social History Tobacco Use Smoking status: Every Day Packs/day: 1.50 Years: 45.00 Additional pack years: 0.00 Total pack years: 67.50 Types: Cigarettes Smokeless tobacco: Never Tobacco comments: 4 cigs per day Vaping Use Vaping Use: Never used Substance Use Topics Alcohol use: No Drug use: Yes Frequency: 1.0 times per week Types: Marijuana Comment: previous marijuana FAMILY HISTORY Problem Relation Age of Onset Arthritis Mother Diabetes Mother Cancer Mother bowel, thyroid Hypertension Father other (cabg) Father Cancer Brother colon Cancer Brother colon other (leukemia) Brother Diabetes Sister Diabetes Sister Diabetes Sister Past medical, social and family history reviewed without any changes. REVIEW OF SYSTEMS GENERAL: No weight loss, malaise or fevers. No night sweats. HEENT: Negative for headaches, No changes in hearing or vision, no nose bleeds or other nasal problems. RESPIRATORY: Negative for cough, wheezing and shortness of breath CARDIOVASCULAR: Negative for chest pain, leg swelling and palpitations GI: Negative for abdominal discomfort, blood in stools or black stools and change in bowel habits : Negative for dysuria, frequency and incontinence MUSCULOSKELETAL: Negative for joint pain or swelling, back pain, and muscle pain. SKIN: Negative for lesions, rash, and itching. HEMATOLOGY/LYMPHOLOGY Negative for prolonged bleeding, bruising easily, and swollen nodes. NEURO: Negative for numbness or tingling of hands/feet. No weakness. PHYSICAL EXAMINATION: BP 146/78 Pulse 97 Temp (Src) 97.8 (Temporal) Resp 16 Ht 5' .433 (1.54m) Wt 87 lb 15.4 oz (39.9kg) SpO2 96% BMI 16.93 kg/(m^2). Wt 40.1 kg (88 lb 6.4 oz) BMI 16.71 kg/m2 Last 3 Encounter Wt Readings: Date: Wt: 07/19/2019 40.1 kg (88 lb 6.4 oz) 01/16/2019 40.6 kg (89 lb 6.4 oz) 08/01/2018 42.1 kg (92 lb 12.8 oz) General appearance:ECOG PERFORMANCE STATUS: 0- Fully active, able to carry on all pre-disease performance w/o restriction. Patient in NAD. Skin: Skin color, texture, turgor normal. No rashes or lesions. Eyes: Anicteric sclera. Pupils are equally round and reactive to light. Extraocular movements are intact. Lymph Nodes: No cervical, supraclavicular, axillary or inguinal adenopathy. Oropharynx: Lips, mucosa, and tongue normal. Back: No pain to percussion. Negative SLR test Lungs clear to auscultation, No wheezing or rhonchi Heart: RRR without murmur, gallop, or rubs. Abdomen soft, non-tender. No masses, organomegaly Extremities: No deformities. No edema Neuro: Gait and speech normal. Reflexes normal and symmetric. Muscular strength intact. Sensation grossly intact. Rectal: Deferred : Deferred LABS: Glucose (mg/dL) Date Value 05/30/2023 118 02/11/2021 118 Potassium (mmol/L) Date Value 05/30/2023 3.6 02/11/2021 4.0 Sodium (mmol/L) Date Value 05/30/2023 134 02/11/2021 138 Chloride (mmol/L) Date Value 05/30/2023 100 02/11/2021 104 CO2 (mmol/L) Date Value 05/30/2023 26 02/11/2021 26 Creatinine (mg/dL) Date Value 05/30/2023 0.67 02/11/2021 1.28 BUN (mg/dL) Date Value 05/30/2023 10 02/11/2021 26 Anion Gap (mmol/L) Date Value 05/30/2023 8 02/11/2021 8 Calcium (mg/dL) Date Value 02/11/2021 9.7 Calcium, Total (mg/dL) Date Value 05/30/2023 9.4 Protein, Total (g/dL) Date Value 05/30/2023 6.3 02/11/2021 6.7 02/11/2021 6.4 Albumin (g/dL) Date Value 05/30/2023 4.0 02/11/2021 4.6 Bilirubin, Total (mg/dL) Date Value 05/30/2023 0.3 02/11/2021 <0.2 Alkaline Phosphatase (U/L) Date Value 05/30/2023 133 02/11/2021 67 AST (U/L) Date Value 05/30/2023 14 02/11/2021 11 ALT (U/L) Date Value 05/30/2023 8 02/11/2021 5 WBC Date Value Ref Range Status 06/20/2023 6.64 3.70 - 11.00 k/uL Final RBC Date Value Ref Range Status 06/20/2023 3.30 (L) 3.90 - 5.20 m/uL Final Hemoglobin Date Value Ref Range Status 06/20/2023 11.9 11.5 - 15.5 g/dL Final Hematocrit Date Value Ref Range Status 06/20/2023 36.1 36.0 - 46.0 % Final MCV Date Value Ref Range Status 06/20/2023 109.4 (H) 80.0 - 100.0 fL Final MCH Date Value Ref Range Status 06/20/2023 36.1 (H) 26.0 - 34.0 pg Final MCHC Date Value Ref Range Status 06/20/2023 33.0 30.5 - 36.0 g/dL Final RDW-CV Date Value Ref Range Status 06/20/2023 13.6 11.5 - 15.0 % Final Platelet Count Date Value Ref Range Status 06/20/2023 173 150 - 400 k/uL Final MPV Date Value Ref Range Status 06/20/2023 9.5 9.0 - 12.7 fL Final Abs Neut Date Value Ref Range Status 06/20/2023 4.35 1.45 - 7.50 k/uL Final Lymphocytes % Date Value Ref Range Status 06/20/2023 20.8 % Final Abs Lymph Date Value Ref Range Status 06/20/2023 1.38 1.00 - 4.00 k/uL Final Monocytes % Date Value Ref Range Status 06/20/2023 10.5 % Final Abs [place] Date Value Ref Range Status 06/20/2023 0.70 <0.87 k/uL Final Abs Eosin Date Value Ref Range Status 06/20/2023 0.15 <0.46 k/uL Final Basophils % Date Value Ref Range Status 06/20/2023 0.5 % Final Abs Baso Date Value Ref Range Status 06/20/2023 0.03 <0.11 k/uL Final PATH: Saúl biopsy February 2017: Right lung, upper lobe nodule, endobronchial biopsy 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 Bronch Lingula and 4L 07/2022: A - TRANSBRONCHIAL FINE-NEEDLE ASPIRATION - LINGULA NODULE Positive for malignant cells. Adenocarcinoma. B - EBUS TRANSBRONCHIAL FINE NEEDLE ASPIRATE, LYMPH NODE - 4L Positive for malignant cells. Adenocarcinoma. Imaging: PET scan July 18, 2019: 1. NECK: * NO FDG AVID NEOPLASTIC PROCESS.. 2. CHEST: * NO FDG AVID NEOPLASTIC PROCESS. * 1.4 X 0.9 CM HYPOMETABOLIC RIGHT UPPER LOBE NODULE WITH ADJACENT PARENCHYMAL SCARRING LATERALLY, IMPROVED SINCE 01/09/2019. FINDINGS ARE COMPATIBLE WITH SATISFACTORY RESPONSE OF TREATED RIGHT UPPER LOBE NODULE POST CHEMORADIATION. * 0.6 CM AND 0.4 CM FAINT RIGHT MIDDLE LOBE GROUNDGLASS ATTENUATION DENSITIES, STABLE SINCE 09/12/2017. 3. ABDOMEN/PELVIS: * NO FDG AVID NEOPLASTIC PROCESS. . 4. EXTREMITIES/SKELETON: * NO SUSPICIOUS FDG AVID OSSEOUS LESION. CT of the chest with contrast January 20, 2020: 1. Interval decrease in size of right upper lobe nodular opacity, now measuring 1.5 cm in size. 2. Slight interval increase in surrounding groundglass and reticular opacities, likely on the basis of posttreatment change. 3. No evidence of bulky intrathoracic lymphadenopathy. CT scan of the chest August 12, 2020: 1. No interval change since 01/17/2020. 2. 1.3 x 0.7 cm right upper lobe nodular opacity, most likely the known primary neoplasm, stable 3. Adjacent right upper lobe patchy opacities most likely related to post radiation change or other infectious/inflammatory etiologies, stable. 4. Other small subcentimeter groundglass opacities in the right lung, stable. CT of the Chest 02/2021: 1. Right upper lobe post radiation change, increased since 08/07/20, now obscuring the previously described reticulonodular opacity. 2. Other small subcentimeter groundglass opacities in the right lung, Stable. MRI Brain 02/2021: CT Chest 08/2021: 1. Mild patchy airspace opacification within the lingula, favored to be infectious/inflammation. Continued attention on subsequent studies is suggested. 2. Since 02/25/2021, unchanged groundglass opacities within the right middle lobe measuring up to 0.5 cm. 3. 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 4. Unchanged moderate intrahepatic biliary ductal dilatation. MRI Brain 09/2021: CT Scan of the Chest and Abdomen and Pelvis 03/2022: 1. Interval development of a new 5 mm nodule in the right lower lobe. This may be infectious/inflammatory or neoplastic in nature. Recommend continued attention to this area on follow-up exams. 2. Stable appearance of 6 mm groundglass opacity in the right middle lobe. An additional 4 mm groundglass opacity more inferiorly in the right middle lobe appears slightly less conspicuous when compared to prior study. 3. Stable bandlike and nodular consolidative opacity in the right upper lobe and right suprahilar region, in keeping with postradiation fibrosis. 1. No evidence of metastatic disease in the abdomen or pelvis. 2. Moderate biliary ductal dilation, similar in appearance to prior CT chest, but new when compared to prior PET/CT. No obstructing calculus or mass is visualized. 3. Nonobstructive nephrolithiasis in the right kidney. CT Chest 06/2022: 1. New mild reticulonodular opacities in the right lower lobe most likely infectious/inflammatory in etiology. Superimposed neoplasm cannot be excluded. 2. 8 mm left upper lobe nodular opacity increased in size since 03/31/22, worrisome for neoplasm. 3. Other subcentimeter nodular opacities and groundglass opacities are stable. PET Scan 07/2022: 1. Neck: No suspicious hypermetabolic foci 2. Chest: Hypermetabolic nodule in the left upper lobe suspicious for neoplasm. No hypermetabolic lymphadenopathy. 3. Abdomen and pelvis: No evidence of FDG avid neoplastic process 4. Skeleton: No hypermetabolic osseous lesions MRI Brain 06/2022: CT 07/2022: 1. Few small groundglass and solid pulmonary nodules are noted. At least two of the solid nodules in the lingula and right lower lobe have increased in size since 06/23/2022 and are concerning for neoplastic/metastatic disease. 2. No new or increasing intrathoracic lymphadenopathy is noted. MRI Brain 12/2022: PET Scan 12/2022: IMPRESSION: HEAD/NECK: * No FDG avid neoplastic process. CHEST: * Enlarging FDG avid lingular nodule, bronchoscopy proven adenocarcinoma * FDG avid left mediastinal lymph nodes, likely metastatic * Postoperative changes right lower lobe wedge resection. Uptake near the site of resection, likely related to posttherapy changes and healing. Attention on follow-up CT scan of the chest. * Stable posttreatment changes within right upper lobe ABDOMEN/PELVIS: * No FDG avid neoplastic process. BONES/EXTREMITIES: * New focus of FDG uptake in right gluteal musculature, concerning for metastasis * No suspicious FDG avid osseous lesion. PET Scan 02/2023: 1. HEAD and NECK: No evidence of focal uptake to suggest FDG avid neoplastic process.. 2. CHEST: Status post resection of FDG avid nodules in the lingula and right lower lobe with residual inflammatory changes. Recommend follow-up with CT to rule out residual disease. 3. ABDOMEN/PELVIS: No evidence of focal uptake to suggest FDG avid neoplastic process.. 4. EXTREMITIES/SKELETON: No evidence of focal uptake to suggest FDG avid neoplastic process.. PET Scan 06/2023: HEAD/NECK: * No FDG avid neoplastic process. CHEST: * No FDG avid neoplastic process. ABDOMEN/PELVIS: * No FDG avid neoplastic process. MUSCULOSKELETAL: * No FDG avid neoplastic process. Assessment and Plan: Debby Hermosillo is a 57 year old year old female here for follow up. 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 06/2022 with enlarging TAM opacity has enlarged, PET scan confirms that the lesion is PET avid and does not detail any additional sites of disease. Patient was presented at the tumor board and repeat CT 07/2022 with increasing lingular and RLL lesion. She underwent a bronch and EBUS and the lingula and 4L node are both positive for Adenocarcinoma, RLL also adenocarcinoma and both lesions have similar molecular characteristics with KRAS A146V mutation and no other abnormalities and PDL-1 100%. PET with stage IV disease and MRI Brain negative. Started Single agent Pembro 01/04/2023. PET 06/2023 in CR and discussed switching to q 6 weeks Keytruda with the next visit See back in 3 weeks for chemo and labs and Exam Thank you for the kind referral. If there are any questions and or concerns please do not hesitate to contact me at [phone]. Stacy Adhikari MD Hematology/Medical Oncology [facility] CC: Milton Madison MD I spent a total of 30 minutes on the date of the service which included preparing to see the patient, [id number] patient care, completing clinical documentation, obtaining and/or reviewing separately obtained history, performing a medically appropriate examination, counseling and educating the patient/family/caregiver and ordering medications, tests, or procedures. documented in this encounter [facility] 06-16-2023 Miscellaneous Notes Pt notified of results Mila Briscoe RN ----- Message from Stacy Adhikari MD sent at 06/15/2023 11:48 PM EDT ----- Call with negative PET documented in this encounter [facility] 06-15-2023 Miscellaneous Notes Pt notified of results iMla Briscoe RN ----- Message from Noemí Jolley PA-C sent at 06/15/2023 12:33 PM EDT ----- Please call with negative PET documented in this encounter [facility] 06-14-2023 History of Present illness Narrative Radiology Service Progress Note DATE OF SERVICE: June 14, 2023 TIME: 11:59 AM PATIENT IDENTITY VERIFICATION COMPLETED USING TWO (2) STANDARD IDENTIFIERS: Name and Date of confirmed by patient verbally. FALL SCREENING: Has the patient had 2 falls in the last year or 1 fall with injury or currently using an Ambulatory Assistive Device (Walker, Cane, Wheelchair, Crutches, etc.)? No PATIENT GENDER DATA: Female. status: : No status: NO. EXAM: CT -CONTRAST INDUCED NEPHROPATHY RISK FACTORS: Not applicable CREATININE: Creatinine Date Value Ref Range Status 05/30/2023 0.67 0.58 - 0.96 mg/dL Final 05/09/2023 0.79 0.58 - 0.96 mg/dL Final 04/19/2023 0.80 0.58 - 0.96 mg/dL Final Estimated Glomerular Filtration Rate Date Value Ref Range Status 05/30/2023 101 >=60 mL/min/1.73m Final Comment: Estimated Glomerular Filtration Rate (eGFR) is calculated using the 2020 CKD-EPI creatinine equation. This equation utilizes serum creatinine, sex, and age as parameters. The creatinine assay has traceable calibration to isotope dilution-mass spectrometry. Refer to KDIGO guidelines for clinical interpretation. In patients with unstable renal function, e.g. those with acute kidney injury, the eGFR may not accurately reflect actual GFR. eGFR- Date Value Ref Range Status 02/11/2021 52 Final P.O.C.T. RESULTS: N/A June 14, 2023 TREATMENT: N/A IV SITE: Ambulatory: A peripheral IV was started in the Left antecubital site with a Angio cath: 22 gauge. IV SITE APPEARANCE: Clean,Dry and Intact SIGNATURE: Kerri Sethi RN PATIENT NAME: Debby Hermosillo DATE: June 14, 2023 TIME: 11:59 AM RADIOLOGY SERVICE PROGRESS NOTE SERVICE DATE: 06/14/2023 SERVICE TIME: 12:07 PM PATIENT IDENTITY VERIFICATION COMPLETED USING TWO (2) STANDARD IDENTIFIERS: Name and Date of confirmed by patient verbally FALL SCREENING: Has the patient had 2 falls in the last year or 1 fall with injury or currently using an Ambulatory Assistive Device (Walker, Cane, Wheelchair, Crutches, etc.)? No PATIENT GENDER DATA: .female : No ALLERGIES: Reviewed and unchanged MEDICATIONS REVIEWED: Yes PATIENT RELEVANT IMPLANT DATA REVIEWED: Not Applicable PATIENT PRESENTS WITH AN IMPLANTABLE OR ATTACHED ENVIRONMENTAL RESEARCH SCIENTIST: No IV SITE: lt ac POST EXAM PIV STATUS: Discontinued PROCEDURE TYPE: NM INJECT: PET/CT BODY SCAN. 6.9 mCi F18 FDG. No other medications given.. ADMINISTRATION TIME: 1200 PATIENT DISCHARGED TO: Ambulatory patient, left [place] department area. A Diagnostic radioactive procedure has taken place, with no further precautions necessary other than routine body substance precautions. More information regarding radiation safety can be found using this link: [email or web address] SIGNATURE: RT Jason(R) PATIENT NAME: Debby Hermosillo DATE: June 14, 2023 TIME: 12:07 PM PAGER/CONTACT #: documented in this encounter [facility] 06-14-2023 Note [facility] 06-14-2023 Note [facility] 05-30-2023 History of Present illness Narrative Images from the original note were not included. PATIENT NAME: Debby Hermosillo [facility] NO.: [id number] ATTENDING PHYSICIAN: Stacy Adhikari MD DATE OF SERVICE: May 30, 2023 (Elements copied from my note dated May 09, 2022, have been reviewed and updated where appropriate, and all reflect current assessment and medical decision making during today's encounter, May 30 2023) CC: Follow up Diagnosis: 1. 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 Previously managed by Dr. Beaver 2. Recurrent Adenocarcinoma- Stage IV 07/2022, confirmed 11/2022- Adenocarcinoma- KRAS A146V, P53, PDL-1 100%, ALK, ROS-1, NTRK, Her-2 and RET fusions, BRAF negative. Guardant 360 08/2022: MICHAEL splice site SNV, JAYLIN Treatment History: 1. Carboplatin and etoposide started March 24, 2017, combined with radiation. Radiotherapy completed May 17, 2017 right upper lobe Patient received a total of 5 cycles of carboplatin and etoposide last on July 12, 2017 Patient was subsequently placed on Imfinzi Per Dr. Beaver and last dose April 09, 2018 and per review of my notes stopped secondary to pancreatitis. 2. Keytruda 01/04/2023 HPI: Debby returns for follow up. She has noticed that her right buttock is getting hot again. It happens about once a day and stays that way for 5 minutes. This happened before and she had a positive PETscan in that area in December 2022 Otherwise she tolerating treatment without rash, itching, diarrhea or shortness of breath. She did have some vomiting of mucus this morning and happens about once a week. This has been going on for months. PAST MEDICAL HISTORY Diagnosis Date Acute, but ill-defined, cerebrovascular disease 10/2021 Adenocarcinoma of left lung (HCC) 08/10/2022 4L and Lingula Arthritis Asthma Back pain chronic Carpal tunnel syndrome, bilateral s/p repair - 2016 Current smoker DDD (degenerative disc disease), lumbar GERD (gastroesophageal reflux disease) Kidney stones Malignant neoplasm of lower lobe of right lung ([facility]) 11/15/2022 Neck pain Neuropathy unclear origin- 6 months? saw neurologist (Dr. Hearn- In [facility]); possible MS? 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 Social History Tobacco Use Smoking status: Every Day Packs/day: 1.50 Years: 45.00 Additional pack years: 0.00 Total pack years: 67.50 Types: Cigarettes Smokeless tobacco: Never Tobacco comments: 4 cigs per day Vaping Use Vaping Use: Never used Substance Use Topics Alcohol use: No Drug use: Yes Frequency: 1.0 times per week Types: Marijuana Comment: previous marijuana FAMILY HISTORY Problem Relation Age of Onset Arthritis Mother Diabetes Mother Cancer Mother bowel, thyroid Hypertension Father other (cabg) Father Cancer Brother colon Cancer Brother colon other (leukemia) Brother Diabetes Sister Diabetes Sister Diabetes Sister Past medical, social and family history reviewed without any changes. REVIEW OF SYSTEMS GENERAL: No weight loss, malaise or fevers. No night sweats. HEENT: Negative for changes in hearing or vision, no nose bleeds or other nasal problems. RESPIRATORY: Negative for cough, wheezing and shortness of breath CARDIOVASCULAR: Negative for chest pain, leg swelling and palpitations GI: Negative for abdominal discomfort, blood in stools or black stools and change in bowel habits +chronic nausea, some vomiting this morning : Negative for dysuria, frequency and incontinence MUSCULOSKELETAL: Negative for joint pain or swelling, back pain, and muscle pain. SKIN: Negative for lesions, rash, and itching. HEMATOLOGY/LYMPHOLOGY Negative for prolonged bleeding, bruising easily, and swollen nodes. NEURO: Negative for numbness or tingling of hands/feet. No weakness. PHYSICAL EXAMINATION: BP 156/84 Pulse 91 Temp (Src) 97.2 (Temporal) Resp 16 Ht 5' .433 (1.54m) Wt 87 lb 4.8 oz (39.6kg) SpO2 99% BMI 16.81 kg/(m^2). ECOG PERFORMANCE STATUS: 0- Fully active, able to carry on all pre-disease performance w/o restriction. General: Alert and oriented, no distress, pleasant and cooperative. Heart: Regular, normal S1 and S2, no murmurs, rubs, or gallops Lungs: Clear to auscultation bilaterally Abdomen: Benign Extremities: Feet/ankles without edema, posterior tibial pulses full and symmetrical LABS: Glucose (mg/dL) Date Value 05/30/2023 118 02/11/2021 118 Potassium (mmol/L) Date Value 05/30/2023 3.6 02/11/2021 4.0 Sodium (mmol/L) Date Value 05/30/2023 134 02/11/2021 138 Chloride (mmol/L) Date Value 05/30/2023 100 02/11/2021 104 CO2 (mmol/L) Date Value 05/30/2023 26 02/11/2021 26 Creatinine (mg/dL) Date Value 05/30/2023 0.67 02/11/2021 1.28 BUN (mg/dL) Date Value 05/30/2023 10 02/11/2021 26 Anion Gap (mmol/L) Date Value 05/30/2023 8 02/11/2021 8 Calcium (mg/dL) Date Value 02/11/2021 9.7 Calcium, Total (mg/dL) Date Value 05/30/2023 9.4 Protein, Total (g/dL) Date Value 05/30/2023 6.3 02/11/2021 6.7 02/11/2021 6.4 Albumin (g/dL) Date Value 05/30/2023 4.0 02/11/2021 4.6 Bilirubin, Total (mg/dL) Date Value 05/30/2023 0.3 02/11/2021 <0.2 Alkaline Phosphatase (U/L) Date Value 05/30/2023 133 02/11/2021 67 AST (U/L) Date Value 05/30/2023 14 02/11/2021 11 ALT (U/L) Date Value 05/30/2023 8 02/11/2021 5 WBC Date Value Ref Range Status 05/30/2023 7.12 3.70 - 11.00 k/uL Final RBC Date Value Ref Range Status 05/30/2023 3.60 (L) 3.90 - 5.20 m/uL Final Hemoglobin Date Value Ref Range Status 05/30/2023 12.9 11.5 - 15.5 g/dL Final Hematocrit Date Value Ref Range Status 05/30/2023 38.9 36.0 - 46.0 % Final MCV Date Value Ref Range Status 05/30/2023 108.1 (H) 80.0 - 100.0 fL Final MCH Date Value Ref Range Status 05/30/2023 35.8 (H) 26.0 - 34.0 pg Final MCHC Date Value Ref Range Status 05/30/2023 33.2 30.5 - 36.0 g/dL Final RDW-CV Date Value Ref Range Status 05/30/2023 13.0 11.5 - 15.0 % Final Platelet Count Date Value Ref Range Status 05/30/2023 162 150 - 400 k/uL Final MPV Date Value Ref Range Status 05/30/2023 9.3 9.0 - 12.7 fL Final Abs Neut Date Value Ref Range Status 05/30/2023 5.15 1.45 - 7.50 k/uL Final Lymphocytes % Date Value Ref Range Status 05/30/2023 17.0 % Final Abs Lymph Date Value Ref Range Status 05/30/2023 1.21 1.00 - 4.00 k/uL Final Monocytes % Date Value Ref Range Status 05/30/2023 8.6 % Final Abs [place] Date Value Ref Range Status 05/30/2023 0.61 <0.87 k/uL Final Abs Eosin Date Value Ref Range Status 05/30/2023 0.08 <0.46 k/uL Final Basophils % Date Value Ref Range Status 05/30/2023 0.4 % Final Abs Baso Date Value Ref Range Status 05/30/2023 0.03 <0.11 k/uL Final PATH: Saúl biopsy February 2017: Right lung, upper lobe nodule, endobronchial biopsy 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 Bronch Lingula and 4L 07/2022: A - TRANSBRONCHIAL FINE-NEEDLE ASPIRATION - LINGULA NODULE Positive for malignant cells. Adenocarcinoma. B - EBUS TRANSBRONCHIAL FINE NEEDLE ASPIRATE, LYMPH NODE - 4L Positive for malignant cells. Adenocarcinoma. Imaging: PET scan July 18, 2019: 1. NECK: * NO FDG AVID NEOPLASTIC PROCESS.. 2. CHEST: * NO FDG AVID NEOPLASTIC PROCESS. * 1.4 X 0.9 CM HYPOMETABOLIC RIGHT UPPER LOBE NODULE WITH ADJACENT PARENCHYMAL SCARRING LATERALLY, IMPROVED SINCE 01/09/2019. FINDINGS ARE COMPATIBLE WITH SATISFACTORY RESPONSE OF TREATED RIGHT UPPER LOBE NODULE POST CHEMORADIATION. * 0.6 CM AND 0.4 CM FAINT RIGHT MIDDLE LOBE GROUNDGLASS ATTENUATION DENSITIES, STABLE SINCE 09/12/2017. 3. ABDOMEN/PELVIS: * NO FDG AVID NEOPLASTIC PROCESS. . 4. EXTREMITIES/SKELETON: * NO SUSPICIOUS FDG AVID OSSEOUS LESION. CT of the chest with contrast January 20, 2020: 1. Interval decrease in size of right upper lobe nodular opacity, now measuring 1.5 cm in size. 2. Slight interval increase in surrounding groundglass and reticular opacities, likely on the basis of posttreatment change. 3. No evidence of bulky intrathoracic lymphadenopathy. CT scan of the chest August 12, 2020: 1. No interval change since 01/17/2020. 2. 1.3 x 0.7 cm right upper lobe nodular opacity, most likely the known primary neoplasm, stable 3. Adjacent right upper lobe patchy opacities most likely related to post radiation change or other infectious/inflammatory etiologies, stable. 4. Other small subcentimeter groundglass opacities in the right lung, stable. CT of the Chest 02/2021: 1. Right upper lobe post radiation change, increased since 08/07/20, now obscuring the previously described reticulonodular opacity. 2. Other small subcentimeter groundglass opacities in the right lung, Stable. MRI Brain 02/2021: CT Chest 08/2021: 1. Mild patchy airspace opacification within the lingula, favored to be infectious/inflammation. Continued attention on subsequent studies is suggested. 2. Since 02/25/2021, unchanged groundglass opacities within the right middle lobe measuring up to 0.5 cm. 3. 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 4. Unchanged moderate intrahepatic biliary ductal dilatation. MRI Brain 09/2021: CT Scan of the Chest and Abdomen and Pelvis 03/2022: 1. Interval development of a new 5 mm nodule in the right lower lobe. This may be infectious/inflammatory or neoplastic in nature. Recommend continued attention to this area on follow-up exams. 2. Stable appearance of 6 mm groundglass opacity in the right middle lobe. An additional 4 mm groundglass opacity more inferiorly in the right middle lobe appears slightly less conspicuous when compared to prior study. 3. Stable bandlike and nodular consolidative opacity in the right upper lobe and right suprahilar region, in keeping with postradiation fibrosis. 1. No evidence of metastatic disease in the abdomen or pelvis. 2. Moderate biliary ductal dilation, similar in appearance to prior CT chest, but new when compared to prior PET/CT. No obstructing calculus or mass is visualized. 3. Nonobstructive nephrolithiasis in the right kidney. CT Chest 06/2022: 1. New mild reticulonodular opacities in the right lower lobe most likely infectious/inflammatory in etiology. Superimposed neoplasm cannot be excluded. 2. 8 mm left upper lobe nodular opacity increased in size since 03/31/22, worrisome for neoplasm. 3. Other subcentimeter nodular opacities and groundglass opacities are stable. PET Scan 07/2022: 1. Neck: No suspicious hypermetabolic foci 2. Chest: Hypermetabolic nodule in the left upper lobe suspicious for neoplasm. No hypermetabolic lymphadenopathy. 3. Abdomen and pelvis: No evidence of FDG avid neoplastic process 4. Skeleton: No hypermetabolic osseous lesions MRI Brain 06/2022: CT 07/2022: 1. Few small groundglass and solid pulmonary nodules are noted. At least two of the solid nodules in the lingula and right lower lobe have increased in size since 06/23/2022 and are concerning for neoplastic/metastatic disease. 2. No new or increasing intrathoracic lymphadenopathy is noted. MRI Brain 12/2022: PET Scan 12/2022: IMPRESSION: HEAD/NECK: * No FDG avid neoplastic process. CHEST: * Enlarging FDG avid lingular nodule, bronchoscopy proven adenocarcinoma * FDG avid left mediastinal lymph nodes, likely metastatic * Postoperative changes right lower lobe wedge resection. Uptake near the site of resection, likely related to posttherapy changes and healing. Attention on follow-up CT scan of the chest. * Stable posttreatment changes within right upper lobe ABDOMEN/PELVIS: * No FDG avid neoplastic process. BONES/EXTREMITIES: * New focus of FDG uptake in right gluteal musculature, concerning for metastasis * No suspicious FDG avid osseous lesion. PET Scan 02/2023: 1. HEAD and NECK: No evidence of focal uptake to suggest FDG avid neoplastic process.. 2. CHEST: Status post resection of FDG avid nodules in the lingula and right lower lobe with residual inflammatory changes. Recommend follow-up with CT to rule out residual disease. 3. ABDOMEN/PELVIS: No evidence of focal uptake to suggest FDG avid neoplastic process.. 4. EXTREMITIES/SKELETON: No evidence of focal uptake to suggest FDG avid neoplastic process.. Assessment and Plan: Debby Hermosillo is a 57 year old year old female here for follow up. 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 06/2022 with enlarging TAM opacity has enlarged, PET scan confirms that the lesion is PET avid and does not detail any additional sites of disease. Patient was presented at the tumor board and repeat CT 07/2022 with increasing lingular and RLL lesion. She underwent a bronch and EBUS and the lingula and 4L node are both positive for Adenocarcinoma, RLL also adenocarcinoma and both lesions have similar molecular characteristics with KRAS A146V mutation and no other abnormalities and PDL-1 100%. PET with stage IV disease and MRI Brain negative. Started Single agent Pembro 01/04/2023. PET 02/2023 with CR. Tolerating and responding to treatment. Labs stable. Proceed with cycle 8. Plan for a PET scan in 3 weeks to assess response and see us back. Headache-- MRI brain 04/2023 was negative and headaches resolved Folate deficiency-found in 2020. Continue folic acid Chronic nausea- Seeing GI Return in 3 weeks for PET, treatment and labs Noemí Jolley PA-C I spent a total of 30 minutes on the date of the service which included preparing to see the patient, [id number] patient care, completing clinical documentation, obtaining and/or reviewing separately obtained history, performing a medically appropriate examination, counseling and educating the patient/family/caregiver, ordering medications, tests, or procedures, independently interpreting results (not separately reported), and communicating results to the patient/family/caregiver. documented in this encounter [facility] 05-30-2023 Note [facility] 05-30-2023 Nurse Note Patient states that she had a fall a few days ago she did land on her bed, she was falling backwards. She sates her balance has been off. Jessie Dill MA documented in this encounter [facility] 05-09-2023 Note [facility] 05-09-2023 History of Present illness Narrative Images from the original note were not included. PATIENT NAME: Debby Hermosillo [facility] NO.: [id number] ATTENDING PHYSICIAN: Stacy Adhikari MD DATE OF SERVICE: April 19, 2023 (Elements copied from my note dated March 29, 2022, have been reviewed and updated where appropriate, and all reflect current assessment and medical decision making during today's encounter, April 19, 2023) CC: Follow up Diagnosis: 1. 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 Previously managed by Dr. Beaver 2. Recurrent Adenocarcinoma- Stage IV 07/2022, confirmed 11/2022- Adenocarcinoma- KRAS A146V, P53, PDL-1 100%, ALK, ROS-1, NTRK, Her-2 and RET fusions, BRAF negative. Guardant 360 08/2022: MICHAEL splice site SNV, JAYLIN Treatment History: 1. Carboplatin and etoposide started March 24, 2017, combined with radiation. Radiotherapy completed May 17, 2017 right upper lobe Patient received a total of 5 cycles of carboplatin and etoposide last on July 12, 2017 Patient was subsequently placed on Imfinzi Per Dr. Beaver and last dose April 09, 2018 and per review of my notes stopped secondary to pancreatitis. 2. Keytruda 01/04/2023 HPI: Debby returns for follow up. Her headaches resolved and her MRI brain 04/27/2023 was negative. She continues to tolerate treatment with Keytruda. Denies any diarrhea, rash, itching, worsening cough or shortness of breath. PAST MEDICAL HISTORY Diagnosis Date Acute, but ill-defined, cerebrovascular disease 10/2021 Adenocarcinoma of left lung (HCC) 08/10/2022 4L and Lingula Arthritis Asthma Back pain chronic Carpal tunnel syndrome, bilateral s/p repair - 2016 Current smoker DDD (degenerative disc disease), lumbar GERD (gastroesophageal reflux disease) Kidney stones Malignant neoplasm of lower lobe of right lung (HCC) 11/15/2022 Neck pain Neuropathy unclear origin- 6 months? saw neurologist (Dr. Hearn- In [facility]); possible MS? 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 Social History Tobacco Use Smoking status: Every Day Packs/day: 1.50 Years: 45.00 Additional pack years: 0.00 Total pack years: 67.50 Types: Cigarettes Smokeless tobacco: Never Tobacco comments: 4 cigs per day Vaping Use Vaping Use: Never used Substance Use Topics Alcohol use: No Drug use: Yes Frequency: 1.0 times per week Types: Marijuana Comment: previous marijuana FAMILY HISTORY Problem Relation Age of Onset Arthritis Mother Diabetes Mother Cancer Mother bowel, thyroid Hypertension Father other (cabg) Father Cancer Brother colon Cancer Brother colon other (leukemia) Brother Diabetes Sister Diabetes Sister Diabetes Sister Past medical, social and family history reviewed without any changes. REVIEW OF SYSTEMS GENERAL: No weight loss, malaise or fevers. No night sweats. HEENT: Negative for changes in hearing or vision, no nose bleeds or other nasal problems. RESPIRATORY: Negative for cough, wheezing and shortness of breath CARDIOVASCULAR: Negative for chest pain, leg swelling and palpitations GI: Negative for abdominal discomfort, blood in stools or black stools and change in bowel habits +chronic nausea : Negative for dysuria, frequency and incontinence MUSCULOSKELETAL: Negative for joint pain or swelling, back pain, and muscle pain. SKIN: Negative for lesions, rash, and itching. HEMATOLOGY/LYMPHOLOGY Negative for prolonged bleeding, bruising easily, and swollen nodes. NEURO: Negative for numbness or tingling of hands/feet. No weakness. PHYSICAL EXAMINATION: BP 137/78 Pulse 83 Temp (Src) 97.4 (Temporal) Resp 16 Ht 5' .433 (1.54m) Wt 86 lb 10.3 oz (39.3kg) SpO2 96% BMI 16.68 kg/(m^2). :ECOG PERFORMANCE STATUS: 0- Fully active, able to carry on all pre-disease performance w/o restriction. General: Alert and oriented, no distress, pleasant and cooperative. Heart: Regular, normal S1 and S2, no murmurs, rubs, or gallops Lungs: Clear to auscultation bilaterally Abdomen: Benign Extremities: Feet/ankles without edema, posterior tibial pulses full and symmetrical LABS: Glucose (mg/dL) Date Value 05/09/2023 88 02/11/2021 118 Potassium (mmol/L) Date Value 05/09/2023 4.5 02/11/2021 4.0 Sodium (mmol/L) Date Value 05/09/2023 137 02/11/2021 138 Chloride (mmol/L) Date Value 05/09/2023 101 02/11/2021 104 CO2 (mmol/L) Date Value 05/09/2023 28 02/11/2021 26 Creatinine (mg/dL) Date Value 05/09/2023 0.79 02/11/2021 1.28 BUN (mg/dL) Date Value 05/09/2023 16 02/11/2021 26 Anion Gap (mmol/L) Date Value 05/09/2023 8 02/11/2021 8 Calcium (mg/dL) Date Value 02/11/2021 9.7 Calcium, Total (mg/dL) Date Value 05/09/2023 9.4 Protein, Total (g/dL) Date Value 05/09/2023 6.6 02/11/2021 6.7 02/11/2021 6.4 Albumin (g/dL) Date Value 05/09/2023 4.2 02/11/2021 4.6 Bilirubin, Total (mg/dL) Date Value 05/09/2023 0.2 02/11/2021 <0.2 Alkaline Phosphatase (U/L) Date Value 05/09/2023 128 02/11/2021 67 AST (U/L) Date Value 05/09/2023 12 02/11/2021 11 ALT (U/L) Date Value 05/09/2023 7 02/11/2021 5 WBC Date Value Ref Range Status 05/09/2023 6.67 3.70 - 11.00 k/uL Final RBC Date Value Ref Range Status 05/09/2023 3.44 (L) 3.90 - 5.20 m/uL Final Hemoglobin Date Value Ref Range Status 05/09/2023 12.5 11.5 - 15.5 g/dL Final Hematocrit Date Value Ref Range Status 05/09/2023 37.5 36.0 - 46.0 % Final MCV Date Value Ref Range Status 05/09/2023 109.0 (H) 80.0 - 100.0 fL Final MCH Date Value Ref Range Status 05/09/2023 36.3 (H) 26.0 - 34.0 pg Final MCHC Date Value Ref Range Status 05/09/2023 33.3 30.5 - 36.0 g/dL Final RDW-CV Date Value Ref Range Status 05/09/2023 12.1 11.5 - 15.0 % Final Platelet Count Date Value Ref Range Status 05/09/2023 197 150 - 400 k/uL Final MPV Date Value Ref Range Status 05/09/2023 9.1 9.0 - 12.7 fL Final Abs Neut Date Value Ref Range Status 05/09/2023 4.02 1.45 - 7.50 k/uL Final Lymphocytes % Date Value Ref Range Status 05/09/2023 23.1 % Final Abs Lymph Date Value Ref Range Status 05/09/2023 1.54 1.00 - 4.00 k/uL Final Monocytes % Date Value Ref Range Status 05/09/2023 12.7 % Final Abs [place] Date Value Ref Range Status 05/09/2023 0.85 <0.87 k/uL Final Abs Eosin Date Value Ref Range Status 05/09/2023 0.20 <0.46 k/uL Final Basophils % Date Value Ref Range Status 05/09/2023 0.4 % Final Abs Baso Date Value Ref Range Status 05/09/2023 0.03 <0.11 k/uL Final PATH: Saúl biopsy February 2017: Right lung, upper lobe nodule, endobronchial biopsy 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 Bronch Lingula and 4L 07/2022: A - TRANSBRONCHIAL FINE-NEEDLE ASPIRATION - LINGULA NODULE Positive for malignant cells. Adenocarcinoma. B - EBUS TRANSBRONCHIAL FINE NEEDLE ASPIRATE, LYMPH NODE - 4L Positive for malignant cells. Adenocarcinoma. Imaging: PET scan July 18, 2019: 1. NECK: * NO FDG AVID NEOPLASTIC PROCESS.. 2. CHEST: * NO FDG AVID NEOPLASTIC PROCESS. * 1.4 X 0.9 CM HYPOMETABOLIC RIGHT UPPER LOBE NODULE WITH ADJACENT PARENCHYMAL SCARRING LATERALLY, IMPROVED SINCE 01/09/2019. FINDINGS ARE COMPATIBLE WITH SATISFACTORY RESPONSE OF TREATED RIGHT UPPER LOBE NODULE POST CHEMORADIATION. * 0.6 CM AND 0.4 CM FAINT RIGHT MIDDLE LOBE GROUNDGLASS ATTENUATION DENSITIES, STABLE SINCE 09/12/2017. 3. ABDOMEN/PELVIS: * NO FDG AVID NEOPLASTIC PROCESS. . 4. EXTREMITIES/SKELETON: * NO SUSPICIOUS FDG AVID OSSEOUS LESION. CT of the chest with contrast January 20, 2020: 1. Interval decrease in size of right upper lobe nodular opacity, now measuring 1.5 cm in size. 2. Slight interval increase in surrounding groundglass and reticular opacities, likely on the basis of posttreatment change. 3. No evidence of bulky intrathoracic lymphadenopathy. CT scan of the chest August 12, 2020: 1. No interval change since 01/17/2020. 2. 1.3 x 0.7 cm right upper lobe nodular opacity, most likely the known primary neoplasm, stable 3. Adjacent right upper lobe patchy opacities most likely related to post radiation change or other infectious/inflammatory etiologies, stable. 4. Other small subcentimeter groundglass opacities in the right lung, stable. CT of the Chest 02/2021: 1. Right upper lobe post radiation change, increased since 08/07/20, now obscuring the previously described reticulonodular opacity. 2. Other small subcentimeter groundglass opacities in the right lung, Stable. MRI Brain 02/2021: CT Chest 08/2021: 1. Mild patchy airspace opacification within the lingula, favored to be infectious/inflammation. Continued attention on subsequent studies is suggested. 2. Since 02/25/2021, unchanged groundglass opacities within the right middle lobe measuring up to 0.5 cm. 3. 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 4. Unchanged moderate intrahepatic biliary ductal dilatation. MRI Brain 09/2021: CT Scan of the Chest and Abdomen and Pelvis 03/2022: 1. Interval development of a new 5 mm nodule in the right lower lobe. This may be infectious/inflammatory or neoplastic in nature. Recommend continued attention to this area on follow-up exams. 2. Stable appearance of 6 mm groundglass opacity in the right middle lobe. An additional 4 mm groundglass opacity more inferiorly in the right middle lobe appears slightly less conspicuous when compared to prior study. 3. Stable bandlike and nodular consolidative opacity in the right upper lobe and right suprahilar region, in keeping with postradiation fibrosis. 1. No evidence of metastatic disease in the abdomen or pelvis. 2. Moderate biliary ductal dilation, similar in appearance to prior CT chest, but new when compared to prior PET/CT. No obstructing calculus or mass is visualized. 3. Nonobstructive nephrolithiasis in the right kidney. CT Chest 06/2022: 1. New mild reticulonodular opacities in the right lower lobe most likely infectious/inflammatory in etiology. Superimposed neoplasm cannot be excluded. 2. 8 mm left upper lobe nodular opacity increased in size since 03/31/22, worrisome for neoplasm. 3. Other subcentimeter nodular opacities and groundglass opacities are stable. PET Scan 07/2022: 1. Neck: No suspicious hypermetabolic foci 2. Chest: Hypermetabolic nodule in the left upper lobe suspicious for neoplasm. No hypermetabolic lymphadenopathy. 3. Abdomen and pelvis: No evidence of FDG avid neoplastic process 4. Skeleton: No hypermetabolic osseous lesions MRI Brain 06/2022: CT 07/2022: 1. Few small groundglass and solid pulmonary nodules are noted. At least two of the solid nodules in the lingula and right lower lobe have increased in size since 06/23/2022 and are concerning for neoplastic/metastatic disease. 2. No new or increasing intrathoracic lymphadenopathy is noted. MRI Brain 12/2022: PET Scan 12/2022: IMPRESSION: HEAD/NECK: * No FDG avid neoplastic process. CHEST: * Enlarging FDG avid lingular nodule, bronchoscopy proven adenocarcinoma * FDG avid left mediastinal lymph nodes, likely metastatic * Postoperative changes right lower lobe wedge resection. Uptake near the site of resection, likely related to posttherapy changes and healing. Attention on follow-up CT scan of the chest. * Stable posttreatment changes within right upper lobe ABDOMEN/PELVIS: * No FDG avid neoplastic process. BONES/EXTREMITIES: * New focus of FDG uptake in right gluteal musculature, concerning for metastasis * No suspicious FDG avid osseous lesion. PET Scan 02/2023: 1. HEAD and NECK: No evidence of focal uptake to suggest FDG avid neoplastic process.. 2. CHEST: Status post resection of FDG avid nodules in the lingula and right lower lobe with residual inflammatory changes. Recommend follow-up with CT to rule out residual disease. 3. ABDOMEN/PELVIS: No evidence of focal uptake to suggest FDG avid neoplastic process.. 4. EXTREMITIES/SKELETON: No evidence of focal uptake to suggest FDG avid neoplastic process.. Assessment and Plan: Debby Hermosillo is a 57 year old year old female here for follow up. 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 06/2022 with enlarging TAM opacity has enlarged, PET scan confirms that the lesion is PET avid and does not detail any additional sites of disease. Patient was presented at the tumor board and repeat CT 07/2022 with increasing lingular and RLL lesion. She underwent a bronch and EBUS and the lingula and 4L node are both positive for Adenocarcinoma, RLL also adenocarcinoma and both lesions have similar molecular characteristics with KRAS A146V mutation and no other abnormalities and PDL-1 100%. PET with stage IV disease and MRI Brain negative. Started Single agent Pembro 01/04/2023. PET 02/2023 with CR. Tolerating and responding to treatment. Proceed with cycle 7 today and return in 3 weeks. Plan for imaging after cycle 8 Headache-- MRI brain 04/2023 was negative and headaches resolved Folate deficiency-found in 2020. Continue folic acid Return in 3 weeks for treatment and labs Noemí Jolley PA-C CC: Milton Madison MD documented in this encounter [facility] 05-05-2023 Miscellaneous Notes Pt notified of negative MRI results Mila Briscoe RN documented in this encounter [facility] 03-01-2023 History of Present illness Narrative Radiology Service Progress Note DATE OF SERVICE: March 01, 2023 TIME: 12:57 PM PATIENT WEIGHT: 83LBS PATIENT IDENTITY VERIFICATION COMPLETED USING TWO (2) STANDARD IDENTIFIERS: Name and Date of confirmed by patient verbally. FALL SCREENING: Has the patient had 2 falls in the last year or 1 fall with injury or currently using an Ambulatory Assistive Device (Walker, Cane, Wheelchair, Crutches, etc.)? No PATIENT GENDER DATA: Female. status: : No status: NO. ALLERGIES: Reviewed and unchanged CONTRAST ALLERGY: No EXAM: CT -CONTRAST INDUCED NEPHROPATHY RISK FACTORS: Not applicable CREATININE: Creatinine Date Value Ref Range Status 01/25/2023 0.60 0.58 - 0.96 mg/dL Final 01/04/2023 0.64 0.58 - 0.96 mg/dL Final 12/27/2022 0.59 0.58 - 0.96 mg/dL Final Estimated Glomerular Filtration Rate Date Value Ref Range Status 01/25/2023 104 >=60 mL/min/1.73m Final Comment: Estimated Glomerular Filtration Rate (eGFR) is calculated using the 2020 CKD-EPI creatinine equation. This equation utilizes serum creatinine, sex, and age as parameters. The creatinine assay has traceable calibration to isotope dilution-mass spectrometry. Refer to KDIGO guidelines for clinical interpretation. In patients with unstable renal function, e.g. those with acute kidney injury, the eGFR may not accurately reflect actual GFR. eGFR- Date Value Ref Range Status 02/11/2021 52 Final P.O.C.T. RESULTS: POC done: Yes, See Lab Tab March 01, 2023 TREATMENT: No Hydration needed. IV SITE: Ambulatory: A peripheral IV was started in the Left antecubital site with a Angio cath: 24 gauge. IV SITE APPEARANCE: Clean,Dry and Intact SIGNATURE: Yue Alcocer RN PATIENT NAME: Debby Hermosillo DATE: March 01, 2023 TIME: 12:57 PM RADIOLOGY SERVICE PROGRESS NOTE SERVICE DATE: 03/01/2023 SERVICE TIME: 1:33 PM PATIENT IDENTITY VERIFICATION COMPLETED USING TWO (2) STANDARD IDENTIFIERS: Name and Date of confirmed by patient verbally POST EXAM PIV STATUS: Discontinued PROCEDURE TYPE: NM INJECT: PET/CT BODY SCAN. 6.3 mCi F18 FDG. No other medications given.. ADMINISTRATION TIME: 1258 PATIENT DISCHARGED TO: Ambulatory patient, left NM department area. A Diagnostic radioactive procedure has taken place, with no further precautions necessary other than routine body substance precautions. More information regarding radiation safety can be found using this link: [email or web address] SIGNATURE: RT Bhavana(Abdiel) PATIENT NAME: Debby Hermosillo DATE: March 01, 2023 TIME: 1:33 PM PAGER/CONTACT #: documented in this encounter [facility] 02-15-2023 History of Present illness Narrative Images from the original note were not included. PATIENT NAME: Debby Hermosillo CLINIC NO.: [id number] ATTENDING PHYSICIAN: Stacy Adhikari MD DATE OF SERVICE: February 15, 2023 Some of the elements of this note have been copied from my previous progress note dated 12/13/2022. All the information has been reviewed carefully. Dear Dr. Gasper Beaver MD here is an update on a follow up visit on female Debby Hermosillo at the clinic February 15, 2023 Diagnosis: 1. 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 Previously managed by Dr. Beaver 2. Recurrent Adenocarcinoma- Stage IV 07/2022, confirmed 11/2022- Adenocarcinoma- KRAS A146V, P53, PDL-1 100%, ALK, ROS-1, NTRK, Her-2 and RET fusions, BRAF negative. Guardant 360 08/2022: MICHAEL splice site SNV, JAYLIN Treatment History: 1. Carboplatin and etoposide started March 24, 2017, combined with radiation. Radiotherapy completed May 17, 2017 right upper lobe Patient received a total of 5 cycles of carboplatin and etoposide last on July 12, 2017 Patient was subsequently placed on Imfinzi Per Dr. Beaver and last dose April 09, 2018 and per review of my notes stopped secondary to pancreatitis. 2. Keytruda 01/04/2023 HPI: Debby Hermosillo is a 57 year old year old female here for follow up. She is doing well and also the pain in her buttocks has resolved PAST MEDICAL HISTORY Diagnosis Date Acute, but ill-defined, cerebrovascular disease 10/2021 Adenocarcinoma of left lung (HCC) 08/10/2022 4L and Lingula Arthritis Asthma Back pain chronic Carpal tunnel syndrome, bilateral s/p repair - 2016 Current smoker DDD (degenerative disc disease), lumbar GERD (gastroesophageal reflux disease) Kidney stones Malignant neoplasm of lower lobe of right lung (HCC) 11/15/2022 Neck pain Neuropathy unclear origin- 6 months? saw neurologist (Dr. Hearn- In [facility]); possible MS? 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 Social History Tobacco Use Smoking status: Every Day Packs/day: 1.50 Years: 45.00 Additional pack years: 0.00 Total pack years: 67.50 Types: Cigarettes Smokeless tobacco: Never Tobacco comments: 4 cigs per day Vaping Use Vaping Use: Never used Substance Use Topics Alcohol use: No Drug use: Yes Frequency: 1.0 times per week Types: Marijuana Comment: previous marijuana FAMILY HISTORY Problem Relation Age of Onset Arthritis Mother Diabetes Mother Cancer Mother bowel, thyroid Hypertension Father other (cabg) Father Cancer Brother colon Cancer Brother colon other (leukemia) Brother Diabetes Sister Diabetes Sister Diabetes Sister Past medical, social and family history reviewed without any changes. REVIEW OF SYSTEMS GENERAL: No weight loss, malaise or fevers. No night sweats. HEENT: Negative for headaches, No changes in hearing or vision, no nose bleeds or other nasal problems. RESPIRATORY: Negative for cough, wheezing and shortness of breath CARDIOVASCULAR: Negative for chest pain, leg swelling and palpitations GI: Negative for abdominal discomfort, blood in stools or black stools and change in bowel habits : Negative for dysuria, frequency and incontinence MUSCULOSKELETAL: Negative for joint pain or swelling, back pain, and muscle pain. SKIN: Negative for lesions, rash, and itching. HEMATOLOGY/LYMPHOLOGY Negative for prolonged bleeding, bruising easily, and swollen nodes. NEURO: Negative for numbness or tingling of hands/feet. No weakness. PHYSICAL EXAMINATION: Ht 5' .433 (1.54m) Wt 40.1 kg (88 lb 6.4 oz) BMI 16.71 kg/m2 Last 3 Encounter Wt Readings: Date: Wt: 07/19/2019 40.1 kg (88 lb 6.4 oz) 01/16/2019 40.6 kg (89 lb 6.4 oz) 08/01/2018 42.1 kg (92 lb 12.8 oz) General appearance:ECOG PERFORMANCE STATUS: 0- Fully active, able to carry on all pre-disease performance w/o restriction. Patient in NAD. Skin: Skin color, texture, turgor normal. No rashes or lesions. Eyes: Anicteric sclera. Pupils are equally round and reactive to light. Extraocular movements are intact. Lymph Nodes: No cervical, supraclavicular, axillary or inguinal adenopathy. Oropharynx: Lips, mucosa, and tongue normal. Back: No pain to percussion. Negative SLR test Lungs clear to auscultation, No wheezing or rhonchi Heart: RRR without murmur, gallop, or rubs. Abdomen soft, non-tender. No masses, organomegaly Extremities: No deformities. No edema Neuro: Gait and speech normal. Reflexes normal and symmetric. Muscular strength intact. Sensation grossly intact. Rectal: Deferred : Deferred LABS: Glucose (mg/dL) Date Value 01/25/2023 87 02/11/2021 118 Potassium (mmol/L) Date Value 01/25/2023 3.4 02/11/2021 4.0 Sodium (mmol/L) Date Value 01/25/2023 142 02/11/2021 138 Chloride (mmol/L) Date Value 01/25/2023 107 02/11/2021 104 CO2 (mmol/L) Date Value 01/25/2023 28 02/11/2021 26 Creatinine (mg/dL) Date Value 01/25/2023 0.60 02/11/2021 1.28 BUN (mg/dL) Date Value 01/25/2023 15 02/11/2021 26 Anion Gap (mmol/L) Date Value 01/25/2023 7 02/11/2021 8 Calcium (mg/dL) Date Value 02/11/2021 9.7 Calcium, Total (mg/dL) Date Value 01/25/2023 8.8 Protein, Total (g/dL) Date Value 01/25/2023 6.2 02/11/2021 6.7 02/11/2021 6.4 Albumin (g/dL) Date Value 01/25/2023 3.1 02/11/2021 4.6 Bilirubin, Total (mg/dL) Date Value 01/25/2023 0.2 02/11/2021 <0.2 Alkaline Phosphatase (U/L) Date Value 01/25/2023 186 02/11/2021 67 AST (U/L) Date Value 01/25/2023 9 02/11/2021 11 ALT (U/L) Date Value 01/25/2023 <5 02/11/2021 5 WBC Date Value Ref Range Status 01/25/2023 6.52 3.70 - 11.00 k/uL Final RBC Date Value Ref Range Status 01/25/2023 2.69 (L) 3.90 - 5.20 m/uL Final Hemoglobin Date Value Ref Range Status 01/25/2023 9.8 (L) 11.5 - 15.5 g/dL Final Hematocrit Date Value Ref Range Status 01/25/2023 30.6 (L) 36.0 - 46.0 % Final MCV Date Value Ref Range Status 01/25/2023 113.8 (H) 80.0 - 100.0 fL Final MCH Date Value Ref Range Status 01/25/2023 36.4 (H) 26.0 - 34.0 pg Final MCHC Date Value Ref Range Status 01/25/2023 32.0 30.5 - 36.0 g/dL Final RDW-CV Date Value Ref Range Status 01/25/2023 12.8 11.5 - 15.0 % Final Platelet Count Date Value Ref Range Status 01/25/2023 94 (L) 150 - 400 k/uL Final Comment: No clot detected. MPV Date Value Ref Range Status 01/25/2023 10.2 9.0 - 12.7 fL Final Abs Neut Date Value Ref Range Status 01/25/2023 5.03 1.45 - 7.50 k/uL Final Lymphocytes % Date Value Ref Range Status 01/25/2023 14.4 % Final Abs Lymph Date Value Ref Range Status 01/25/2023 0.94 (L) 1.00 - 4.00 k/uL Final Monocytes % Date Value Ref Range Status 01/25/2023 6.1 % Final Abs [place] Date Value Ref Range Status 01/25/2023 0.40 <0.87 k/uL Final Eosinophils % Date Value Ref Range Status 01/25/2023 1.1 % Final Abs Eosin Date Value Ref Range Status 01/25/2023 0.07 <0.46 k/uL Final Basophils % Date Value Ref Range Status 01/25/2023 0.3 % Final Abs Baso Date Value Ref Range Status 01/25/2023 <0.03 <0.11 k/uL Final PATH: Saúl biopsy February 2017: Right lung, upper lobe nodule, endobronchial biopsy 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 Bronch Lingula and 4L 07/2022: A - TRANSBRONCHIAL FINE-NEEDLE ASPIRATION - LINGULA NODULE Positive for malignant cells. Adenocarcinoma. B - EBUS TRANSBRONCHIAL FINE NEEDLE ASPIRATE, LYMPH NODE - 4L Positive for malignant cells. Adenocarcinoma. Imaging: PET scan July 18, 2019: 1. NECK: * NO FDG AVID NEOPLASTIC PROCESS.. 2. CHEST: * NO FDG AVID NEOPLASTIC PROCESS. * 1.4 X 0.9 CM HYPOMETABOLIC RIGHT UPPER LOBE NODULE WITH ADJACENT PARENCHYMAL SCARRING LATERALLY, IMPROVED SINCE 01/09/2019. FINDINGS ARE COMPATIBLE WITH SATISFACTORY RESPONSE OF TREATED RIGHT UPPER LOBE NODULE POST CHEMORADIATION. * 0.6 CM AND 0.4 CM FAINT RIGHT MIDDLE LOBE GROUNDGLASS ATTENUATION DENSITIES, STABLE SINCE 09/12/2017. 3. ABDOMEN/PELVIS: * NO FDG AVID NEOPLASTIC PROCESS. . 4. EXTREMITIES/SKELETON: * NO SUSPICIOUS FDG AVID OSSEOUS LESION. CT of the chest with contrast January 20, 2020: 1. Interval decrease in size of right upper lobe nodular opacity, now measuring 1.5 cm in size. 2. Slight interval increase in surrounding groundglass and reticular opacities, likely on the basis of posttreatment change. 3. No evidence of bulky intrathoracic lymphadenopathy. CT scan of the chest August 12, 2020: 1. No interval change since 01/17/2020. 2. 1.3 x 0.7 cm right upper lobe nodular opacity, most likely the known primary neoplasm, stable 3. Adjacent right upper lobe patchy opacities most likely related to post radiation change or other infectious/inflammatory etiologies, stable. 4. Other small subcentimeter groundglass opacities in the right lung, stable. CT of the Chest 02/2021: 1. Right upper lobe post radiation change, increased since 08/07/20, now obscuring the previously described reticulonodular opacity. 2. Other small subcentimeter groundglass opacities in the right lung, Stable. MRI Brain 02/2021: CT Chest 08/2021: 1. Mild patchy airspace opacification within the lingula, favored to be infectious/inflammation. Continued attention on subsequent studies is suggested. 2. Since 02/25/2021, unchanged groundglass opacities within the right middle lobe measuring up to 0.5 cm. 3. 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 4. Unchanged moderate intrahepatic biliary ductal dilatation. MRI Brain 09/2021: CT Scan of the Chest and Abdomen and Pelvis 03/2022: 1. Interval development of a new 5 mm nodule in the right lower lobe. This may be infectious/inflammatory or neoplastic in nature. Recommend continued attention to this area on follow-up exams. 2. Stable appearance of 6 mm groundglass opacity in the right middle lobe. An additional 4 mm groundglass opacity more inferiorly in the right middle lobe appears slightly less conspicuous when compared to prior study. 3. Stable bandlike and nodular consolidative opacity in the right upper lobe and right suprahilar region, in keeping with postradiation fibrosis. 1. No evidence of metastatic disease in the abdomen or pelvis. 2. Moderate biliary ductal dilation, similar in appearance to prior CT chest, but new when compared to prior PET/CT. No obstructing calculus or mass is visualized. 3. Nonobstructive nephrolithiasis in the right kidney. CT Chest 06/2022: 1. New mild reticulonodular opacities in the right lower lobe most likely infectious/inflammatory in etiology. Superimposed neoplasm cannot be excluded. 2. 8 mm left upper lobe nodular opacity increased in size since 03/31/22, worrisome for neoplasm. 3. Other subcentimeter nodular opacities and groundglass opacities are stable. PET Scan 07/2022: 1. Neck: No suspicious hypermetabolic foci 2. Chest: Hypermetabolic nodule in the left upper lobe suspicious for neoplasm. No hypermetabolic lymphadenopathy. 3. Abdomen and pelvis: No evidence of FDG avid neoplastic process 4. Skeleton: No hypermetabolic osseous lesions MRI Brain 06/2022: CT 07/2022: 1. Few small groundglass and solid pulmonary nodules are noted. At least two of the solid nodules in the lingula and right lower lobe have increased in size since 06/23/2022 and are concerning for neoplastic/metastatic disease. 2. No new or increasing intrathoracic lymphadenopathy is noted. MRI Brain 12/2022: PET Scan 12/2022: IMPRESSION: HEAD/NECK: * No FDG avid neoplastic process. CHEST: * Enlarging FDG avid lingular nodule, bronchoscopy proven adenocarcinoma * FDG avid left mediastinal lymph nodes, likely metastatic * Postoperative changes right lower lobe wedge resection. Uptake near the site of resection, likely related to posttherapy changes and healing. Attention on follow-up CT scan of the chest. * Stable posttreatment changes within right upper lobe ABDOMEN/PELVIS: * No FDG avid neoplastic process. BONES/EXTREMITIES: * New focus of FDG uptake in right gluteal musculature, concerning for metastasis * No suspicious FDG avid osseous lesion. Assessment and Plan: Debby Hermosillo is a 57 year old year old female here for follow up. 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 06/2022 with enlarging TAM opacity has enlarged, PET scan confirms that the lesion is PET avid and does not detail any additional sites of disease. Patient was presented at the tumor board and repeat CT 07/2022 with increasing lingular and RLL lesion. She underwent a bronch and EBUS and the lingula and 4L node are both positive for Adenocarcinoma, RLL also adenocarcinoma and both lesions have similar molecular characteristics with KRAS A146V mutation and no other abnormalities and PDL-1 100%. PET with stage IV disease and MRI Brain negative. Started Single agent Pembro 01/04/2023. See back in 3 weeks and will repeat imaging at that time Thank you for the kind referral. If there are any questions and or concerns please do not hesitate to contact me at [phone]. Stacy Adhikari MD Hematology/Medical Oncology [facility] CC: Milton Madison MD I spent a total of 30 minutes on the date of the service which included preparing to see the patient, [id number] patient care, completing clinical documentation, obtaining and/or reviewing separately obtained history, performing a medically appropriate examination, counseling and educating the patient/family/caregiver and ordering medications, tests, or procedures. documented in this encounter [facility] 01-25-2023 History of Present illness Narrative Images from the original note were not included. PATIENT NAME: Debby Gann Hermosillo [facility] NO.: [id number] ATTENDING PHYSICIAN: Stacy Adhikari MD DATE OF SERVICE: Jan 25, 2023 (Elements copied from my note dated January 05, 3032, have been reviewed and updated where appropriate, and all reflect current assessment and medical decision making during today's encounter, Jan 25 2023) CC: Follow up to start treamtent Diagnosis: 1. 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 Previously managed by Dr. Beaver 2. Recurrent Adenocarcinoma- Stage IV 07/2022, confirmed 11/2022- Adenocarcinoma- KRAS A146V, P53, PDL-1 100%, ALK, ROS-1, NTRK, Her-2 and RET fusions, BRAF negative. Guardant 360 08/2022: MICHAEL splice site SNV, JAYLIN Treatment History: 1. Carboplatin and etoposide started March 24, 2017, combined with radiation. Radiotherapy completed May 17, 2017 right upper lobe Patient received a total of 5 cycles of carboplatin and etoposide last on July 12, 2017 Patient was subsequently placed on Imfinzi Per Dr. Beaver and last dose April 09, 2018 and per review of my notes stopped secondary to pancreatitis. 2.Keytruda started 01/04/2023 HPI: Debby returns for follow up. She has been having UTI symptoms but no fever, chills or flank pain. She is also fatigued, but otherwise is doing well. Saw vascular who felt she had microvascular disease from her history of smoking. Denies any diarrhea, cough, shortness of breath, or rash. PAST MEDICAL HISTORY Diagnosis Date Acute, but ill-defined, cerebrovascular disease 10/2021 Adenocarcinoma of left lung (HCC) 08/10/2022 4L and Lingula Arthritis Asthma Back pain chronic Carpal tunnel syndrome, bilateral s/p repair - 2016 Current smoker DDD (degenerative disc disease), lumbar GERD (gastroesophageal reflux disease) Kidney stones Malignant neoplasm of lower lobe of right lung (HCC) 11/15/2022 Neck pain Neuropathy unclear origin- 6 months? saw neurologist (Dr. Hearn- In [facility]); possible MS? 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 Social History Tobacco Use Smoking status: Every Day Packs/day: 1.50 Years: 45.00 Additional pack years: 0.00 Total pack years: 67.50 Types: Cigarettes Smokeless tobacco: Never Tobacco comments: 4 cigs per day Vaping Use Vaping Use: Never used Substance Use Topics Alcohol use: No Drug use: Yes Frequency: 1.0 times per week Types: Marijuana Comment: previous marijuana FAMILY HISTORY Problem Relation Age of Onset Arthritis Mother Diabetes Mother Cancer Mother bowel, thyroid Hypertension Father other (cabg) Father Cancer Brother colon Cancer Brother colon other (leukemia) Brother Diabetes Sister Diabetes Sister Diabetes Sister Past medical, social and family history reviewed without any changes. REVIEW OF SYSTEMS GENERAL: No weight loss, malaise or fevers. No night sweats. +fatigue HEENT: Negative for headaches, No changes in hearing or vision, no nose bleeds or other nasal problems. RESPIRATORY: Negative for cough, wheezing and shortness of breath CARDIOVASCULAR: Negative for chest pain, leg swelling and palpitations GI: Negative for abdominal discomfort, blood in stools or black stools and change in bowel habits : Negative for dysuria, frequency and incontinence MUSCULOSKELETAL: Negative for joint pain or swelling, back pain, and muscle pain. SKIN: Negative for lesions, rash, and itching. HEMATOLOGY/LYMPHOLOGY Negative for prolonged bleeding, bruising easily, and swollen nodes. NEURO: Negative for numbness or tingling of hands/feet. No weakness. PHYSICAL EXAMINATION: BP 157/77 Pulse 91 Temp (Src) 97.2 (Temporal) Resp 16 Ht 5' .433 (1.54m) Wt 81 lb 6.4 oz (36.9kg) SpO2 100% BMI 15.67 kg/(m^2). ECOG PERFORMANCE STATUS: 0- Fully active, able to carry on all pre-disease performance w/o restriction. General: Alert and oriented, no distress, pleasant and cooperative. Heart: Regular, normal S1 and S2, no murmurs, rubs, or gallops Lungs: Clear to auscultation bilaterally Abdomen: Benign Extremities: Feet/ankles without edema, posterior tibial pulses full and symmetrical LABS: Glucose (mg/dL) Date Value 01/25/2023 87 02/11/2021 118 Potassium (mmol/L) Date Value 01/25/2023 3.4 02/11/2021 4.0 Sodium (mmol/L) Date Value 01/25/2023 142 02/11/2021 138 Chloride (mmol/L) Date Value 01/25/2023 107 02/11/2021 104 CO2 (mmol/L) Date Value 01/25/2023 28 02/11/2021 26 Creatinine (mg/dL) Date Value 01/25/2023 0.60 02/11/2021 1.28 BUN (mg/dL) Date Value 01/25/2023 15 02/11/2021 26 Anion Gap (mmol/L) Date Value 01/25/2023 7 02/11/2021 8 Calcium (mg/dL) Date Value 02/11/2021 9.7 Calcium, Total (mg/dL) Date Value 01/25/2023 8.8 Protein, Total (g/dL) Date Value 01/25/2023 6.2 02/11/2021 6.7 02/11/2021 6.4 Albumin (g/dL) Date Value 01/25/2023 3.1 02/11/2021 4.6 Bilirubin, Total (mg/dL) Date Value 01/25/2023 0.2 02/11/2021 <0.2 Alkaline Phosphatase (U/L) Date Value 01/25/2023 186 02/11/2021 67 AST (U/L) Date Value 01/25/2023 9 02/11/2021 11 ALT (U/L) Date Value 01/25/2023 <5 02/11/2021 5 WBC Date Value Ref Range Status 01/25/2023 6.52 3.70 - 11.00 k/uL Final RBC Date Value Ref Range Status 01/25/2023 2.69 (L) 3.90 - 5.20 m/uL Final Hemoglobin Date Value Ref Range Status 01/25/2023 9.8 (L) 11.5 - 15.5 g/dL Final Hematocrit Date Value Ref Range Status 01/25/2023 30.6 (L) 36.0 - 46.0 % Final MCV Date Value Ref Range Status 01/25/2023 113.8 (H) 80.0 - 100.0 fL Final MCH Date Value Ref Range Status 01/25/2023 36.4 (H) 26.0 - 34.0 pg Final MCHC Date Value Ref Range Status 01/25/2023 32.0 30.5 - 36.0 g/dL Final RDW-CV Date Value Ref Range Status 01/25/2023 12.8 11.5 - 15.0 % Final Platelet Count Date Value Ref Range Status 01/25/2023 94 (L) 150 - 400 k/uL Final Comment: No clot detected. MPV Date Value Ref Range Status 01/25/2023 10.2 9.0 - 12.7 fL Final Abs Neut Date Value Ref Range Status 01/25/2023 5.03 1.45 - 7.50 k/uL Final Lymphocytes % Date Value Ref Range Status 01/25/2023 14.4 % Final Abs Lymph Date Value Ref Range Status 01/25/2023 0.94 (L) 1.00 - 4.00 k/uL Final Monocytes % Date Value Ref Range Status 01/25/2023 6.1 % Final Abs [place] Date Value Ref Range Status 01/25/2023 0.40 <0.87 k/uL Final Eosinophils % Date Value Ref Range Status 01/25/2023 1.1 % Final Abs Eosin Date Value Ref Range Status 01/25/2023 0.07 <0.46 k/uL Final Basophils % Date Value Ref Range Status 01/25/2023 0.3 % Final Abs Baso Date Value Ref Range Status 01/25/2023 <0.03 <0.11 k/uL Final PATH: Saúl biopsy February 2017: Right lung, upper lobe nodule, endobronchial biopsy 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 Bronch Lingula and 4L 07/2022: A - TRANSBRONCHIAL FINE-NEEDLE ASPIRATION - LINGULA NODULE Positive for malignant cells. Adenocarcinoma. B - EBUS TRANSBRONCHIAL FINE NEEDLE ASPIRATE, LYMPH NODE - 4L Positive for malignant cells. Adenocarcinoma. Imaging: PET scan July 18, 2019: 1. NECK: * NO FDG AVID NEOPLASTIC PROCESS.. 2. CHEST: * NO FDG AVID NEOPLASTIC PROCESS. * 1.4 X 0.9 CM HYPOMETABOLIC RIGHT UPPER LOBE NODULE WITH ADJACENT PARENCHYMAL SCARRING LATERALLY, IMPROVED SINCE 01/09/2019. FINDINGS ARE COMPATIBLE WITH SATISFACTORY RESPONSE OF TREATED RIGHT UPPER LOBE NODULE POST CHEMORADIATION. * 0.6 CM AND 0.4 CM FAINT RIGHT MIDDLE LOBE GROUNDGLASS ATTENUATION DENSITIES, STABLE SINCE 09/12/2017. 3. ABDOMEN/PELVIS: * NO FDG AVID NEOPLASTIC PROCESS. . 4. EXTREMITIES/SKELETON: * NO SUSPICIOUS FDG AVID OSSEOUS LESION. CT of the chest with contrast January 20, 2020: 1. Interval decrease in size of right upper lobe nodular opacity, now measuring 1.5 cm in size. 2. Slight interval increase in surrounding groundglass and reticular opacities, likely on the basis of posttreatment change. 3. No evidence of bulky intrathoracic lymphadenopathy. CT scan of the chest August 12, 2020: 1. No interval change since 01/17/2020. 2. 1.3 x 0.7 cm right upper lobe nodular opacity, most likely the known primary neoplasm, stable 3. Adjacent right upper lobe patchy opacities most likely related to post radiation change or other infectious/inflammatory etiologies, stable. 4. Other small subcentimeter groundglass opacities in the right lung, stable. CT of the Chest 02/2021: 1. Right upper lobe post radiation change, increased since 08/07/20, now obscuring the previously described reticulonodular opacity. 2. Other small subcentimeter groundglass opacities in the right lung, Stable. MRI Brain 02/2021: CT Chest 08/2021: 1. Mild patchy airspace opacification within the lingula, favored to be infectious/inflammation. Continued attention on subsequent studies is suggested. 2. Since 02/25/2021, unchanged groundglass opacities within the right middle lobe measuring up to 0.5 cm. 3. 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 4. Unchanged moderate intrahepatic biliary ductal dilatation. MRI Brain 09/2021: CT Scan of the Chest and Abdomen and Pelvis 03/2022: 1. Interval development of a new 5 mm nodule in the right lower lobe. This may be infectious/inflammatory or neoplastic in nature. Recommend continued attention to this area on follow-up exams. 2. Stable appearance of 6 mm groundglass opacity in the right middle lobe. An additional 4 mm groundglass opacity more inferiorly in the right middle lobe appears slightly less conspicuous when compared to prior study. 3. Stable bandlike and nodular consolidative opacity in the right upper lobe and right suprahilar region, in keeping with postradiation fibrosis. 1. No evidence of metastatic disease in the abdomen or pelvis. 2. Moderate biliary ductal dilation, similar in appearance to prior CT chest, but new when compared to prior PET/CT. No obstructing calculus or mass is visualized. 3. Nonobstructive nephrolithiasis in the right kidney. CT Chest 06/2022: 1. New mild reticulonodular opacities in the right lower lobe most likely infectious/inflammatory in etiology. Superimposed neoplasm cannot be excluded. 2. 8 mm left upper lobe nodular opacity increased in size since 03/31/22, worrisome for neoplasm. 3. Other subcentimeter nodular opacities and groundglass opacities are stable. PET Scan 07/2022: 1. Neck: No suspicious hypermetabolic foci 2. Chest: Hypermetabolic nodule in the left upper lobe suspicious for neoplasm. No hypermetabolic lymphadenopathy. 3. Abdomen and pelvis: No evidence of FDG avid neoplastic process 4. Skeleton: No hypermetabolic osseous lesions MRI Brain 06/2022: CT 07/2022: 1. Few small groundglass and solid pulmonary nodules are noted. At least two of the solid nodules in the lingula and right lower lobe have increased in size since 06/23/2022 and are concerning for neoplastic/metastatic disease. 2. No new or increasing intrathoracic lymphadenopathy is noted. MRI brain 12/2022: PET/CT 12/2022 HEAD/NECK: * No FDG avid neoplastic process. CHEST: * Enlarging FDG avid lingular nodule, bronchoscopy proven adenocarcinoma * FDG avid left mediastinal lymph nodes, likely metastatic * Postoperative changes right lower lobe wedge resection. Uptake near the site of resection, likely related to posttherapy changes and healing. Attention on follow-up CT scan of the chest. * Stable posttreatment changes within right upper lobe ABDOMEN/PELVIS: * No FDG avid neoplastic process. BONES/EXTREMITIES: * New focus of FDG uptake in right gluteal musculature, concerning for metastasis * No suspicious FDG avid osseous lesion. Assessment and Plan: Debby Hermosillo is a 57 year old year old female here for follow up. 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 06/2022 with enlarging TAM opacity has enlarged, PET scan confirms that the lesion is PET avid and does not detail any additional sites of disease. Patient was presented at the tumor board and repeat CT 07/2022 with increasing lingular and RLL lesion. She underwent a bronch and EBUS and the lingula and 4L node are both positive for Adenocarcinoma, RLL also adenocarcinoma and both lesions have similar molecular characteristics with KRAS [id number] mutation and no other abnormalities and PDL-1 100%. MRI brain 12/2022 negative PET 12/2022 with area of FDG uptake in right gluteal musculature. Pembro started 01/25/2023. Tolerating well. Proceed with cycle 2 and see us in 3 weeks. Dysuria--ua c and s today and start cipro Hypokalemia--oral potassium 20 meq daily for a week. Anemia--check anemia labs Thrombocytopenia--?immunotherapy? monitor She will return in 3 weeks for her next cycle. Noemí Jolley PA-C CC: Milton Madison MD documented in this encounter [facility] 01-12-2023 Evaluation note Encounter Date Diagnosis Assessment Notes Jan, Discoloration of skin of finger (ICD-10 - L81.9) The patient did show me a picture where she had the discoloration on the palmar aspect of the left fourth finger. This is not present in the office today. Full physical exam in the office today was quite benign. She has easily palpable brachial and radial pulse and a good signal throughout the palmar arch with a hand-held Doppler in the office. She is able to move all digits without issue. She has no open sores or ulcers. She most likely has some aspect of microvascular disease due to her years of smoking. This was discussed with her at length and all of her questions were addressed. It is imperative that she stop smoking. She has 3 types of lung cancer currently going through treatment. She is working on her smoking cessation and down to about 4 cigarettes a day. She continues to work hard at this. There is no need for scheduled follow-up in our office, she knows to call us or return if any issues or concerns arise. Jan, Current every day smoker (ICD-10 - F17.200) Discussed the health risks associated with tobacco smoking. Patient understands her risks and is working hard on her smoking cessation journey. [email or web address] Other 11-01-2023 Miscellaneous Notes* Telephone Encounter - Yudi Vega - 01/11/2023 10:06 AM EDT Called [facility] office. Patient is scheduled to see Dr Parsons tomorrow 01/12. Yudi Chapa * Telephone Encounter - Mila Briscoe RN - 01/09/2023 12:07 PM EDT Pt calls back and states she has called vascular and left them a message to schedule her appointment. Mila Briscoe RN * Telephone Encounter - Mila Briscoe RN - 01/09/2023 11:56 AM EDT Spoke with pt on the phone and she states she has vascular's number written down and she will be calling them when we get off the phone. Pt states her finger hasn't turned black since her visit here,but she how has numbness in her pointer finger on the same hand. When she exercises her fingers it will go away, but returns after a while. Pt will call vascular now to schedule and appointment. Mila Briscoe RN * Telephone Encounter - Mila Briscoe RN - 01/09/2023 9:45 AM EDT Call placed to pt and message left for her to call our office back to get an update on how her finger is and to inform her that vascular is trying to get a hold of her. Mila Briscoe RN * Telephone Encounter - Yudi Vega - 01/09/2023 8:57 AM EDT Called [facility] office. They have called and left pt messages on 01/04 and 01/06 to call theiroffice to get scheduled. Their retail marketing coordinator will call patient tomorrow which will be their 3rd attempt, if patient does not answer, they will close this referral. Yudi Chapa * Telephone Encounter - Yudi Vega - 01/04/2023 10:27 AM EDT Called [facility] office. They have received this referral and they will be calling patient soonto get scheduled. Yudi Chapa * Telephone Encounter - Jessika Valerio - 01/02/2023 2:37 PM EDT Records faxed to [facility]. * Telephone Encounter - Yudi Vega - 01/02/2023 2:11 PM EDT Racheal: Information ready for you. Yudi Guerrero Pss * Telephone Encounter - Noemí Jolley PA-C - 01/02/2023 1:55 PM EDT Agree. Patient's ring finger of her left hand was mildly discolored but good capillary refill and radial pulse palpated. Finger was not cold to touch. Patient reports this comes and goes for the lastmonth. Some days it turns almost completely black she reports, but moving and bending it makes it go away. No pain per the patient. Recommended vascular consult. If worsens she was advised to go to ER. Referal order signed Noemí Jolley PA-C * Telephone Encounter - Mila Briscoe RN - 01/02/2023 1:39 PM EDT Pt here for immunotherapy education today and has concerns regarding darkening of left ring finger.Pt states for a bout a week now her finger has been dark in color, almost appears as it's bruised. Pt states sometimes her finger will be completely black with the exception of the tip, and the tip of her finger will go numb. Pt denies pain or discomfort. States if she exercises her fingers the color will lighten a little, and the numbness will go away. Radial pulse strong and finger warm to touch like other fingers. No swelling noted. Pt states she lifted a case of pop last week and it's been like this ever since. Noemí assessed pt's finger as well. Pt notified that we will be referring her to vascular so they can assess this further. Pt notified that she needs to proceed to the ER urgently with any pain or blackening that lighten up with movement. Verbalized understanding. MM: please sign pending referral. PSS: pt prefers to be seen in [place]. Thanks Mila Briscoe RN [facility] Miscellaneous Notes* Telephone Encounter - Mila Briscoe RN - 01/09/2023 11:24 AM EDT CYCLE 1/DAY 1 POST TREATMENT CALL Today's date: January 09, 2023 Treatment Regimen: pembrolizumab C1D1 Date: 01/04/23 Called patient to follow-up on symptom management. Spoke with patient SYMPTOM ASSESSMENT Neuro: None CV/Resp: Cough: Yes; no changes since prior to treatment GI/: Appetite: no changes in appetite, appetite good, Nausea started this morning. Took compazine which helped, just took zofran before this phone call. Pt states she's had nausea off and on ever since diagnosis and this hasn't changed at all Denies diarrhea/constipation. Integument: None Activity: Denies weakness and fatigue Pain: No=0 (pain 0 on a scale of 0-10). Fever: No Chills: No Any new referrals needed? No Reinforced CURRENT treatment education based on current and anticipated symptoms. Discussed port/line care and patient verbalizes understanding: Yes pt states peripheral IV site is fine, no concerns Patient instructed to contact office or after hours Hematology/Oncology fellow for: temperature ? 100.4; questions or concerns. Patient verbalized understanding of when to seek medical attention and after hours number protocol. Mila Briscoe RN [facility] History of Present illness Narrative* Noemí Jolley PA-C - 01/04/2023 1:22 PM EDT Images from the original note were not included. PATIENT NAME: Debby Hermosillo [facility] NO.: [id number] ATTENDING PHYSICIAN: Stacy Adhikari MD DATE OF SERVICE: January 04, 2023 (Elements copied from Dr. Adhikari's note dated December 14, 3031, have been reviewed and updated where appropriate, and all reflect current assessment and medical decision making during today's encounter, January 04, 2023) CC: Follow up to start treamtent Diagnosis: 1. 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 Previously managed by Dr. Beaver 2. Recurrent Adenocarcinoma- Stage IV 07/2022, confirmed 11/2022- Adenocarcinoma- KRAS A146V, P53, PDL-1 100%, ALK, ROS-1, NTRK, Her-2 and RET fusions, BRAF negative. Guardant 360 08/2022: MICHAEL splice site SNV, JAYLIN Treatment History: 1. Carboplatin and etoposide started March 24, 2017, combined with radiation. Radiotherapy completed May 17, 2017 right upper lobe Patient received a total of 5 cycles of carboplatin and etoposide last on July 12, 2017 Patient was subsequently placed on Imfinzi Per Dr. Beaver and last dose April 09, 2018 and per review of my notes stopped secondary to pancreatitis. 2.Keytruda started 01/04/2023 HPI: Debby returns for follow up. MRI brain was done and negative. PET scan 12/2022 showed known lingular nodule, left mediastinal lymph nodes and a new FDG avid right gluteal musculature lesion. She denies any injury to that area. She has had pain off and on there. PAST MEDICAL HISTORY Diagnosis Date Acute, but ill-defined, cerebrovascular disease 10/2021 Adenocarcinoma of left lung (HCC) 08/10/2022 4L and Lingula Arthritis Asthma Back pain chronic Carpal tunnel syndrome, bilateral s/p repair - 2016 Current smoker DDD (degenerative disc disease), lumbar GERD (gastroesophageal reflux disease) Kidney stones Malignant neoplasm of lower lobe of right lung (HCC) 11/15/2022 Neck pain Neuropathy unclear origin- 6 months? saw neurologist (Dr. [facility]n- [facility]); possible MS? 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 Social History Tobacco Use Smoking status: Every Day Packs/day: 1.50 Years: 45.00 Additional pack years: 0.00 Total pack years: 67.50 Types: Cigarettes Smokeless tobacco: Never Tobacco comments: 4 cigs per day Vaping Use Vaping Use: Never used Substance Use Topics Alcohol use: No Drug use: Yes Frequency: 1.0 times per week Types: Marijuana Comment: previous marijuana FAMILY HISTORY Problem Relation Age of Onset Arthritis Mother Diabetes Mother Cancer Mother bowel, thyroid Hypertension Father other (cabg) Father Cancer Brother colon Cancer Brother colon other (leukemia) Brother Diabetes Sister Diabetes Sister Diabetes Sister Past medical, social and family history reviewed without any changes. REVIEW OF SYSTEMS GENERAL: No weight loss, malaise or fevers. No night sweats. HEENT: Negative for headaches, No changes in hearing or vision, no nose bleeds or other nasal problems. RESPIRATORY: Negative for cough, wheezing and shortness of breath CARDIOVASCULAR: Negative for chest pain, leg swelling and palpitations GI: Negative for abdominal discomfort, blood in stools or black stools and change in bowel habits : Negative for dysuria, frequency and incontinence MUSCULOSKELETAL: Negative for joint pain or swelling, back pain, and muscle pain. SKIN: Negative for lesions, rash, and itching. HEMATOLOGY/LYMPHOLOGY Negative for prolonged bleeding, bruising easily, and swollen nodes. NEURO: Negative for numbness or tingling of hands/feet. No weakness. PHYSICAL EXAMINATION: BP 153/77 Pulse 93 Temp (Src) 97.8 (Temporal) Resp 16 Ht 5' .433 [verified by 2 caregivers shoes on[ (1.54m) Wt 81 lb (36.7kg) SpO2 97% BMI 15.59 kg/(m^2). ECOG PERFORMANCE STATUS: 0- Fully active, able to carry on all pre-disease performance w/o restriction. PHYSICAL EXAMINATION General: Alert and oriented, no distress, pleasant and cooperative. Heart: Regular, normal S1 and S2, no murmurs, rubs, or gallops Lungs: Clear to auscultation bilaterally Abdomen: Benign Extremities: Feet/ankles without edema, posterior tibial pulses full and symmetrical Right gluteal area without a palpable mass LABS: Glucose (mg/dL) Date Value 01/04/2023 122 02/11/2021 118 Potassium (mmol/L) Date Value 01/04/2023 3.8 02/11/2021 4.0 Sodium (mmol/L) Date Value 01/04/2023 137 02/11/2021 138 Chloride (mmol/L) Date Value 01/04/2023 106 02/11/2021 104 CO2 (mmol/L) Date Value 01/04/2023 27 02/11/2021 26 Creatinine (mg/dL) Date Value 01/04/2023 0.64 02/11/2021 1.28 BUN (mg/dL) Date Value 01/04/2023 14 02/11/2021 26 Anion Gap (mmol/L) Date Value 01/04/2023 4 02/11/2021 8 Calcium (mg/dL) Date Value 02/11/2021 9.7 Calcium, Total (mg/dL) Date Value 01/04/2023 8.8 Protein, Total (g/dL) Date Value 01/04/2023 5.8 02/11/2021 6.7 02/11/2021 6.4 Albumin (g/dL) Date Value 01/04/2023 3.6 02/11/2021 4.6 Bilirubin, Total (mg/dL) Date Value 01/04/2023 0.2 02/11/2021 <0.2 Alkaline Phosphatase (U/L) Date Value 01/04/2023 127 02/11/2021 67 AST (U/L) Date Value 01/04/2023 13 02/11/2021 11 ALT (U/L) Date Value 01/04/2023 6 02/11/2021 5 WBC Date Value Ref Range Status 01/04/2023 8.52 3.70 - 11.00 k/uL Final RBC Date Value Ref Range Status 01/04/2023 2.84 (L) 3.90 - 5.20 m/uL Final Hemoglobin Date Value Ref Range Status 01/04/2023 10.5 (L) 11.5 - 15.5 g/dL Final Hematocrit Date Value Ref Range Status 01/04/2023 33.7 (L) 36.0 - 46.0 % Final MCV Date Value Ref Range Status 01/04/2023 118.7 (H) 80.0 - 100.0 fL Final MCH Date Value Ref Range Status 01/04/2023 37.0 (H) 26.0 - 34.0 pg Final MCHC Date Value Ref Range Status 01/04/2023 31.2 30.5 - 36.0 g/dL Final RDW-CV Date Value Ref Range Status 01/04/2023 14.0 11.5 - 15.0 % Final Platelet Count Date Value Ref Range Status 01/04/2023 199 150 - 400 k/uL Final MPV Date Value Ref Range Status 01/04/2023 9.1 9.0 - 12.7 fL Final Abs Neut Date Value Ref Range Status 01/04/2023 5.57 1.45 - 7.50 k/uL Final Lymphocytes % Date Value Ref Range Status 01/04/2023 20.4 % Final Abs Lymph Date Value Ref Range Status 01/04/2023 1.74 1.00 - 4.00 k/uL Final Monocytes % Date Value Ref Range Status 01/04/2023 11.4 % Final Abs [place] Date Value Ref Range Status 01/04/2023 0.97 (H) <0.87 k/uL Final Eosinophils % Date Value Ref Range Status 01/04/2023 1.4 % Final Abs Eosin Date Value Ref Range Status 01/04/2023 0.12 <0.46 k/uL Final Basophils % Date Value Ref Range Status 01/04/2023 0.5 % Final Abs Baso Date Value Ref Range Status 01/04/2023 0.04 <0.11 k/uL Final PATH: Saúl biopsy February 2017: Right lung, upper lobe nodule, endobronchial biopsy 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 Bronch Lingula and 4L 07/2022: A - TRANSBRONCHIAL FINE-NEEDLE ASPIRATION - LINGULA NODULE Positive for malignant cells. Adenocarcinoma. B - EBUS TRANSBRONCHIAL FINE NEEDLE ASPIRATE, LYMPH NODE - 4L Positive for malignant cells. Adenocarcinoma. Imaging: PET scan July 18, 2019: 1. NECK: * NO FDG AVID NEOPLASTIC PROCESS.. 2. CHEST: * NO FDG AVID NEOPLASTIC PROCESS. * 1.4 X 0.9 CM HYPOMETABOLIC RIGHT UPPER LOBE NODULE WITH ADJACENT PARENCHYMAL SCARRING LATERALLY, IMPROVED SINCE 01/09/2019. FINDINGS ARE COMPATIBLE WITH SATISFACTORY RESPONSE OF TREATED RIGHT UPPER LOBE NODULE POST CHEMORADIATION. * 0.6 CM AND 0.4 CM FAINT RIGHT MIDDLE LOBE GROUNDGLASS ATTENUATION DENSITIES, STABLE SINCE 09/12/2017. 3. ABDOMEN/PELVIS: * NO FDG AVID NEOPLASTIC PROCESS. . 4. EXTREMITIES/SKELETON: * NO SUSPICIOUS FDG AVID OSSEOUS LESION. CT of the chest with contrast January 20, 2020: 1. Interval decrease in size of right upper lobe nodular opacity, now measuring 1.5 cm in size. 2. Slight interval increase in surrounding groundglass and reticular opacities, likely on the basis of posttreatment change. 3. No evidence of bulky intrathoracic lymphadenopathy. CT scan of the chest August 12, 2020: 1. No interval change since 01/17/2020. 2. 1.3 x 0.7 cm right upper lobe nodular opacity, most likely the known primary neoplasm, stable 3. Adjacent right upper lobe patchy opacities most likely related to post radiation change or other infectious/inflammatory etiologies, stable. 4. Other small subcentimeter groundglass opacities in the right lung, stable. CT of the Chest 02/2021: 1. Right upper lobe post radiation change, increased since 08/07/20, now obscuring the previously described reticulonodular opacity. 2. Other small subcentimeter groundglass opacities in the right lung, Stable. MRI Brain 02/2021: CT Chest 08/2021: 1. Mild patchy airspace opacification within the lingula, favored to be infectious/inflammation. Continued attention on subsequent studies is suggested. 2. Since 02/25/2021, unchanged groundglass opacities within the right middle lobe measuring up to 0.5 cm. 3. 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 4. Unchanged moderate intrahepatic biliary ductal dilatation. MRI Brain 09/2021: CT Scan of the Chest and Abdomen and Pelvis 03/2022: 1. Interval development of a new 5 mm nodule in the right lower lobe. This may be infectious/inflammatory or neoplastic in nature. Recommend continued attention to this area on follow-up exams. 2. Stable appearance of 6 mm groundglass opacity in the right middle lobe. An additional 4 mm groundglass opacity more inferiorly in the right middle lobe appears slightly less conspicuous when compared to prior study. 3. Stable bandlike and nodular consolidative opacity in the right upper lobe and right suprahilar region, in keeping with postradiation fibrosis. 1. No evidence of metastatic disease in the abdomen or pelvis. 2. Moderate biliary ductal dilation, similar in appearance to prior CT chest, but new when compared to prior PET/CT. No obstructing calculus or mass is visualized. 3. Nonobstructive nephrolithiasis in the right kidney. CT Chest 06/2022: 1. New mild reticulonodular opacities in the right lower lobe most likely infectious/inflammatory in etiology. Superimposed neoplasm cannot be excluded. 2. 8 mm left upper lobe nodular opacity increased in size since 03/31/22, worrisome for neoplasm. 3. Other subcentimeter nodular opacities and groundglass opacities are stable. PET Scan 07/2022: 1. Neck: No suspicious hypermetabolic foci 2. Chest: Hypermetabolic nodule in the left upper lobe suspicious for neoplasm. No hypermetabolic lymphadenopathy. 3. Abdomen and pelvis: No evidence of FDG avid neoplastic process 4. Skeleton: No hypermetabolic osseous lesions MRI Brain 06/2022: CT 07/2022: 1. Few small groundglass and solid pulmonary nodules are noted. At least two of the solid nodules in the lingula and right lower lobe have increased in size since 06/23/2022 and are concerning for neoplastic/metastatic disease. 2. No new or increasing intrathoracic lymphadenopathy is noted. MRI brain 12/2022: PET/CT 12/2022 HEAD/NECK: * No FDG avid neoplastic process. CHEST: * Enlarging FDG avid lingular nodule, bronchoscopy proven adenocarcinoma * FDG avid left mediastinal lymph nodes, likely metastatic * Postoperative changes right lower lobe wedge resection. Uptake near the site of resection, likely related to posttherapy changes and healing. Attention on follow-up CT scan of the chest. * Stable posttreatment changes within right upper lobe ABDOMEN/PELVIS: * No FDG avid neoplastic process. BONES/EXTREMITIES: * New focus of FDG uptake in right gluteal musculature, concerning for metastasis * No suspicious FDG avid osseous lesion. Assessment and Plan: Debby Hermosillo is a 57 year old year old female here for follow up. 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 06/2022 with enlarging TAM opacity has enlarged, PET scan confirms that the lesion is PET avid and does not detail any additional sites of disease. Patient was presented at the tumor board and repeat CT 07/2022 with increasing lingular and RLL lesion. She underwent a bronch and EBUS and the lingula and 4L node are both positive for Adenocarcinoma, RLL also adenocarcinoma and both lesions have similar molecular characteristics with KRAS [id number] mutation and no other abnormalities and PDL-1 100%. MRI brain 12/2022 negative PET 12/2022 with area of FDG uptake in right gluteal musculature. Today we discussed Pembrolizumab therapy and the potential side effects of immunotherapy. She consented to treatment and we will proceed with her first dose of Keytruda. She previously had possible pancreatitis related to Imfinzi, and she will need to be monitored closely while on pembro. She will return in 3 weeks for her next cycle. Noemí Jolley PA-C CC: Milton Madison MD documented in this encounterH[facility]10-[facility]23 Miscellaneous Notes* Telephone Encounter - Hanh Chacon - 01/03/2023 11:34 AM EDT Patient has an OTV appointment on 01/04. Labs done 12/27. Please place lab orders if interested. Hanh Chacon documented in this encounterH[facility]10-23-2023 History of Present illness Narrative* Becky Ledezma RT(R) - 01/02/2023 1:30 PM EDT RADIOLOGY SERVICE PROGRESS NOTE SERVICE DATE: 01/02/2023 SERVICE TIME: 1:42 PM PATIENT IDENTITY VERIFICATION COMPLETED USING TWO (2) STANDARD IDENTIFIERS: Name and Date of confirmed by patient verbally POST EXAM PIV STATUS: Discontinued PROCEDURE TYPE: NM INJECT: PET/CT BODY SCAN. 7.2 mCi F18 FDG. No other medications given.. ADMINISTRATION TIME: 1332 PATIENT DISCHARGED TO: Ambulatory patient, left [place] department area. A Diagnostic radioactive procedure has taken place, with no further precautions necessary other than routine body substance precautions. More information regarding radiation safety can be found usingthis link: [email or web address] SIGNATURE: RT Bhavana(R) PATIENT NAME: Debby Hermosillo DATE: January 02, 2023 TIME: 1:42 PM PAGER/CONTACT #: documented in this encounterHarrison [facility]10-23-2023 History of Present illness Narrative* Mila Briscoe RN - 01/02/2023 1:28 PM EDT ONCOLOGY PATIENT EDUCATION NOTE TOPIC: Immunotherapy, Medications: pembrolizumab READINESS TO LEARN: COGNITIVE ABILITY: Alert and oriented MOTIVATION TO LEARN: Interested FAMILY SUPPORT: High - Very involved in pt care INSTRUCTION PROVIDED TO: Patient INSTRUCTION PROVIDED BY: Nurse Coordinator PATIENT LEARNS BEST BY: Multiple Methods FACTORS AFFECTING LEARNING: None PHYSICAL LIMITATIONS AFFECTING LEARNING: None LEARNING RESPONSE DIAGNOSIS: SCLC METHOD OF INSTRUCTION: Individual instruction Written instruction - handouts Verbal instruction PATIENT/FAMILY RESPONSE: Verbalizes understanding of: CHEMOTHERAPY-Regimen, toxicity and side effects INFECTION MANAGEMENT-Signs and symptoms of an infection and importance of contacting the physician MEDICAL REGIMEN-Importance of following prescribed medical regimen MEDICATION PRESCRIBED-Accurate knowledge of prescribed medication prior to discharge MEDICATION ROUTE-Correct route for administration of the prescribed medication MEDICATION SIDE EFFECTS-Side effects associated with the medication that warrant a call to the physician PATIENT SAFETY PRINCIPLES SYMPTOM MANAGEMENT-Correct actions to take to manage symptoms associated with his/her disease/illness WORSENING CONDITION-Signs and symptoms of a worsening condition that warrant a call to the physician Information received as demonstrated by interest and questions FOLLOW UP PLAN: Patient instructed to call with any further issues Recommend - Recommend continued instruction and follow up as directed Follow up phone call. Contact information given. SUPPLEMENTAL MATERIAL: Written material was provided at this visit with the following information: - Immunotherapy education was provided by a pharmacist NO - Side effect management information was provided/discussed including but not limited to: abdominaldiscomfort, anemia, appetite changes, arthralgia, bowel habit changes, chest pain, diet, electrolyte disturbances, fatigue, headache, hypersensitivity reaction, infection, kidney toxicity, myalgia, na usea/vomitting, neutropenia, rash, risk for DVT, shortness of breath, skin changes, taste changes, thrombocytopenia, pneumonitis, gastritis, hepatitis, thyroiditis YES - Provided important phone numbers and contacts during and after hours. YES - Provided information on symptoms that require immediate assistance. YES - Provided Immunotherapy when to call handouts YES - Preventing infection. YES - Treatment schedule and confirmation of appointment times. YES - Available support groups. NA - The importance of contraception during the course of chemotherapy NA - Neutropenic fever protocol discussed with patient, which included the importance of reporting anyfever of 100.4F (38.0C) or greater to the healthcare team as noted on the provided wallet card and/or magnet. YES - pt has my journey binder at home from initial treatment, and has antiemetics on hand at home as well as needed. Time Spent: 20 minutes REFERRAL (RECOMMENDATION): N/A Mila Briscoe RN documented in this encounterH[facility]10-02-2023 Miscellaneous Notes* Telephone Encounter - Jessika Lange RN - 12/12/2022 8:14 AM EDT Can we get this patient schedule per Dr. Adhikari's message. Then make patient aware. \ Thanks, Jessika Lange RN * Telephone Encounter - Stacy Adhikari MD - 12/09/2022 4:40 PM EDT Can she be scheduled to see me sometime next week please. Thanks documented in this encounterH[facility]09-13-2023 NoteHNO ID: [id number] Author: Jose Rafael Fernandes APRN.STEPHANIE Service: ? Author Type: Nurse Practitioner Type: Progress Notes Filed: 11/23/2022 4:18 PM Note Text: [facility] - OUTPATIENT THORACIC SURGERY CLINIC NOTE PT NAME: Debby Gann [facility] NO: [id number] THORACIC SURGEON: Mnia Walden M.D. DATE OF SERVICE: 11/23/2022 PRINCIPAL DX: Adenocarcinoma of RLL of Lung SURGICAL HX 11/15/2022: Video assisted thoracoscopic surgery, right lower lobe wedge resection lung, mediastinal lymph node sampling, intercostal nerve block Surgical Pathology: Pending REASON FOR VISIT: First post-operative visit HPI: Debby Hermosillo is a 57 year old female current smoker (67.5 ppy Hx; down to 4 cigarettes/day) with PMH of Stage II combined small cell and SCC of the RUL treated with 5 cycles of carboplatin and topside combined with radiation back in 2018 referred by Stacy Adhikari MD for an opinion regarding management of RLL lung nodule. In June 2022, patient underwent CT scan that demonstrated 8mm TAM nodular opacity increased in size since March 2022 as well as new mild reticulonodular opacities in the RLL. PET/CT scan done 07/2022 revealed two solid nodules in the lingula and RLL have increased since last CT 06/23 and a hypermetabolic nodule in the TAM suspicious for neoplasm. EBUS done 08/10 was positive for adenocarcinoma in the lingula nodule and lymph node 4L. Brain MRI was unremarkable. Patient was presented to tumor board, with recommendation of diagnostic wedge resection vs IR biopsy of RLL lesion, with understanding that wedge will be advised if non diagnostic. On 11/15/2022, patient underwent Video assisted thoracoscopic surgery, right lower lobe wedge resection lung, mediastinal lymph node sampling, intercostal nerve block. Postoperative course was unremarkable and she was discharged home POD #1. Since Discharge: Debby Hermosillo presents to clinic today for first postoperative visit. She has been doing well. She denies any fevers, chills, night sweats. Patient only notes pain at old chest tube site suture. She has resumed her [employer] suboxone. Denies any SOB, lightheadedness, or dizziness. Notes productive cough every once in a while, with clear sputum. Notes nausea, but denies any vomiting. Reports poor appetite. Starting to get better the past couple of days. Notes regular BMs. Incisions are healing well and suture is removed. We have discussed increasing aerobic activity daily, as well as maintaining weight restriction of 5-10 lbs for the first month after surgery. We have also discussed no driving while on narcotics. Imaging: CXR 11/23/2022: Pending PHYSICAL EXAM: VITAL SIGNS: BP 152/84 (BP Site: Left Arm, BP Position: Sitting, BP Cuff Size: Small Adult) Pulse 112 Temp 36.1 ?C (96.9 ?F) (Temporal) Resp 18 Ht 152.4 cm (5') Wt 36.2 kg (79 lb 11.2 oz) SpO2 99% BMI 15.57 kg/m? Room air General appearance: Well appearing, alert, in no acute distress, thin Skin: Skin color, texture, turgor normal, no suspicious rashes or lesions Lungs: Lungs clear to auscultation. No wheezing, rhonchi, rales Heart: RRR without murmur, gallop, or rubs. No ectopy Abdomen: Abdomen soft, non-tender. Bowel sounds normal. Extremities: No deformities, edema, skin discoloration, clubbing or cyanosis. Musculoskeletal: No joint swelling, deformity, or tenderness Neuro: Gait normal. Sensation grossly intact. 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 She is s/p video assisted thoracoscopic surgery, right lower lobe wedge resection lung, mediastinal lymph node sampling, intercostal nerve block on 11/15/[address] Walden. Overall doing well from a surgical standpoint. CXR from today is still pending; to my eye, shows well expanded lungs. Final pathology is still pending. PLAN: - Will call patient with pathology results once in - Oncology management with Dr. Larkin - Encourage coughing, deep breathing, using IS, and increasing aerobic activity as tolerated Jose Rafael Fernandes APRN, [facility]09-13-2023 History of Present illness Narrative* Jose Rafael Fernandes APRN.[facility] - 11/23/2022 12:49 PM EDT [facility] - OUTPATIENT THORACIC SURGERY CLINIC NOTE PT NAME: Debby Hermosillo [facility] NO: [id number] THORACIC SURGEON: Mina Walden M.D. DATE OF SERVICE: 11/23/2022 PRINCIPAL DX: Adenocarcinoma of RLL of Lung SURGICAL HX 11/15/2022: Video assisted thoracoscopic surgery, right lower lobe wedge resection lung, mediastinal lymph node sampling, intercostal nerve block Surgical Pathology: Pending REASON FOR VISIT: First post-operative visit HPI: Debby Hermosillo is a 57 year old female current smoker (67.5 ppy Hx; down to 4 cigarettes/day) with PMH of Stage II combined small cell and SCC of the RUL treated with 5 cycles of carboplatin and topside combined with radiation back in 2018 referred by Stacy Adhikari MD for an opinion regarding management of RLL lung nodule. In June 2022, patient underwent CT scan that demonstrated 8mm TAM nodular opacity increased in size since March 2022 as well as new mild reticulonodular opacities in the RLL. PET/CT scan done 07/2022 revealed two solid nodules in the lingula and RLL have increased since last CT 06/23 and a hypermetabolic nodule in the TAM suspicious for neoplasm. EBUS done 08/10 was po sitive for adenocarcinoma in the lingula nodule and lymph node 4L. Brain MRI was unremarkable. Patient was presented to tumor board, with recommendation of diagnostic wedge resection vs IR biopsy of RLL lesion, with understanding that wedge will be advised if non diagnostic. On 11/15/2022, patient underwent Video assisted thoracoscopic surgery, right lower lobe wedge resection lung, mediastinal lymph node sampling, intercostal nerve block. Postoperative course was unremarkable and she was discharged home POD #1. Since Discharge: Debby Hermosillo presents to clinic today for first postoperative visit. She has been doing well. She denies any fevers, chills, night sweats. Patient only notes pain at old chest tube site suture. She has resumed her [employer] suboxone. Denies any SOB, lightheadedness, or dizziness. Notes productive cough every once in a while, with clear sputum. Notes nausea, but denies any vomiting. Reports poor appetite. Starting to get better the past couple of days. Notes regular BMs. Incisions are healing welland suture is removed. We have discussed increasing aerobic activity daily, as well as maintaining weight restriction of 5-10 lbs for the first month after surgery. We have also discussed no driving while on narcotics. Imaging: CXR 11/23/2022: Pending PHYSICAL EXAM: VITAL SIGNS: BP 152/84 (BP Site: Left Arm, BP Position: Sitting, BP Cuff Size: Small Adult) [id number] Temp 36.1 C (96.9 F) (Temporal) Resp 18 Ht 152.4 cm (5') Wt 36.2 kg (79 lb 11.2 oz) SpO2 99% BMI 15.57 kg/m Room air General appearance: Well appearing, alert, in no acute distress, thin Skin: Skin color, texture, turgor normal, no suspicious rashes or lesions Lungs: Lungs clear to auscultation. No wheezing, rhonchi, rales Heart: RRR without murmur, gallop, or rubs. No ectopy Abdomen: Abdomen soft, non-tender. Bowel sounds normal. Extremities: No deformities, edema, skin discoloration, clubbing or cyanosis. Musculoskeletal: No joint swelling, deformity, or tenderness Neuro: Gait normal. Sensation grossly intact. 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 She is s/p video assisted thoracoscopic surgery, right lower lobe wedge resection lung, mediastinal lymph node sampling, intercostal nerve block on 11/15/[address] Walden. Overall doing well from a surgical standpoint. CXR from today is still pending; to my eye, shows well expanded lungs. Final pathology is still pending. PLAN: - Will call patient with pathology results once in - Oncology management with Dr. Larkin - Encourage coughing, deep breathing, using IS, and increasing aerobic activity as tolerated Jose Rafael Fernandes APRN, STEPHANIE documented in this encounterH[facility]09-01-2023 History of Present illness Narrative* Chris Garcia MD - 11/11/2022 2:40 PM EDT Cardiothoracic Anesthesiology Preoperative Assessment Service Date: 11/11/2022 Service Time: 11:25 AM Primary Care Physician: No primary care provider on file. Subjective Patient Entered Data: Cardiothoracic Surgery Pre-Op Questionnaire 11/04/2022 Previous anesthesia problems No Family history anesthesia problems No Blood consent Yes Esophageal history Hiatal Hernia Implanted devices No History difficult airway No Airway surgery No Ongoing pain issues No Heparin intolerance No Daily alcohol use No Illicit drug use Yes Scheduled procedure: R VATS + wedge resection Surgeon: Mina Walden Scheduled date: 11/15/2022 HPI: 57 year old F with PMH notable for: - new left lingular biopsy proven adenocarcinoma and a notable history of a RUL mixed SCLC/SqCLC trated in 2018, HLD, CP Pt presents for preoperative evaluation prior to R VATS + wedge resection. Pt is currently asymptomatic without any chest pain, shortness of breath, recent weight loss, fever, chills, nausea/vomiting, diarrhea. Pt denies any problems with prior anesthetics. We additionally discussed the anesthetic plan, what to expect, and any questions or concerns the patient may have had. Review no known heparin intolerance anticoagulant/antiplatelet medication(s) - Patient is taking anticoagulant and/or antiplatelet medication Anticoagulation / antiplatelet medication plan: ASA81. no non-cardiac IEDs present esophageal disorder(s) (hiatal hernia) - blood transfusion consented -. No resulted type & screen to review COVID-19 Immunization Status Overdue - COVID-19 VACCINE (5 - Pfizer series) Overdue since 09/27/2021 08/02/2021 Imm Admin: COVID-19 original vaccine, age 12+ yr, monovalent (PFIZER- BIONTECH - FOSTER TOP) 12/18/2020 Imm Admin: COVID-19 original vaccine, age 12+ yr, monovalent (PFIZER- BIONTECH - PURPLE TOP) 06/03/2020 Imm Admin: COVID-19 original vaccine, age 12+ yr, monovalent (PFIZER- BIONTECH - PURPLE TOP) Only the first 3 history entries have been loaded, but more history exists. The patient has the following: ACTIVE PROBLEM LIST Arthritis Asthma Back Pain Current Smoker Neck Pain Malignant Neoplasm of [place] of Lung (Hcc) Small Cell Carcinoma of Lung, Right (Hcc) Squamous Cell Carcinoma of Right Lung (Hcc) Thrombocytopenia (Hcc) Anemia Due to Antineoplastic Chemotherapy Peptic Ulcer Cough in Adult Urinary Tract Infection Without Hematuria Anemia Nausea PAST MEDICAL HISTORY Diagnosis Date Acute, but ill-defined, cerebrovascular disease 10/2021 Adenocarcinoma of left lung (HCC) 08/10/2022 4L and Lingula Arthritis Asthma Back pain chronic Carpal tunnel syndrome, bilateral s/p repair 2016 Current smoker DDD (degenerative disc disease), lumbar GERD (gastroesophageal reflux disease) Kidney stones Neck pain Neuropathy unclear origin- 6 months? saw neurologist (Dr. Hearn- [facility]); possible MS? 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 PAST SURGICAL HISTORY Procedure Laterality Date CARPAL TUNNEL CHOLECYSTECTOMY HX COLONOSCOPY HYSTERECTOMY HX Partial NOSE SURGERY HX FRACTURE PAST SURGICAL HISTORY OF CONE BIOPSY 1982 FAMILY HISTORY Problem Relation Age of Onset Arthritis Mother Diabetes Mother Cancer Mother bowel, thyroid Hypertension Father other (cabg) Father Cancer Brother colon Cancer Brother colon other (leukemia) Brother Diabetes Sister Diabetes Sister Diabetes Sister Social History Tobacco Use Smoking status: Every Day Packs/day: 1.50 Years: 45.00 Additional pack years: 0.00 Total pack years: 67.50 Types: Cigarettes Smokeless tobacco: Never Tobacco comments: 4 cigs per day Vaping Use Vaping Use: Never used Substance Use Topics Alcohol use: No Drug use: Yes Frequency: 1.0 times per week Types: Marijuana Comment: previous marijuana Prior to Admission medications as of 10/14/22 1119 Medication Sig Last Dose Taking mupirocin (BACTROBAN) 2 % ointment Apply a small amount in each nostril using a cotton swab twice the day before surgery and once the morning of surgery. folic acid 1 mg tablet TAKE 1 TABLET BY MOUTH EVERY DAY iv contrast (will be provided with radiology test) CT Chest W -Inject, intravenously, once for 1 dose.No IV access, insert saline lock prior to the beginning of sedation, infusion, injection of imaging exam. Discontinue saline lock post exam. If Pt. has a central line or IVAD, may access for administration according to line specific nursing protocol. Once exam is complete flush line and de-accessaccording to line specific nursing protocol in the CT contrast administration guidelines link. ondansetron (ZOFRAN) 8 mg tablet Take 1 tablet by mouth every 8 hours as needed for nausea/vomiting. prochlorperazine (COMPAZINE) 10 mg tablet TAKE 1 TABLET BY MOUTH EVERY 6 HOURS NEEDED atorvastatin (LIPITOR) 40 mg tablet Take 40 mg by mouth once daily. NURTEC ODT 75 mg disintegrating tablet DISSOLVE 1 TABLET ON THE TONGUE ONCE A DAY AT ONSET OF MIGRAINE sucralfate (CARAFATE) 1 gram tablet TAKE 1 TABLET ON AN EMPTY STOMACH 4 TIMES A DAY FOR 30 DAYS SUBOXONE 8-2 mg film ACETAMINOPHEN (TYLENOL ORAL) Take by mouth. No medication comments found. ALLERGIES Allergen Reactions Penicillins Unknown Objective Pain Assessment: Vitals: There were no vitals taken for this visit. Diagnostic tests reviewed for today's visit: Lab Value Units Date High Low HB 12.5 g/dL 11/11/2022 15.5 11.5 HCT 37.0 % 11/11/2022 46.0 36.0 WBC 7.42 k/uL 11/11/2022 11.00 3.70 PLT 186 k/uL 11/11/2022 400 150 NA 142 mmol/L 11/11/2022 144 136 K 3.5 mmol/L 11/11/2022 5.1 3.7 GLUC 105 mg/dL 11/11/2022 99 74 BUN 11 mg/dL 11/11/2022 21 7 CREAT 0.75 mg/dL 11/11/2022 0.96 0.58 PTSEC 10.3 sec 11/11/2022 13.0 9.7 INR 1.0 no uni* 11/11/2022 1.3 0.9 APTT 29.3 sec 11/11/2022 32.4 23.0 ALT 9 U/L 11/11/2022 38 7 AST 12 U/L 11/11/2022 35 13 TBILI 0.3 mg/dL 11/11/2022 1.3 0.2 TSH No results within date range. Lab Value Units Date High Low HCGQT No results within date range. UHCG No results within date range. HCG, BODY* No results within date range. Lab Value Units Date High Low ABORHD No results within date range. ABSCREEN No results within date range. No results found for: HBA1C Recent Results (from the past 8760 hour(s)) ECG COMPLETE Collection Time: 11/11/22 9:03 AM Impression NORMAL SINUS RHYTHM NONSPECIFIC ST ABNORMALITY ABNORMAL ECG CT CHEST W IVCON Collection Time: 10/31/22 9:23 AM Impression IMPRESSION: 1. Interval increase in size of lingular and right lower lobe nodules, again concerning for neoplasm. 2. Newly appearing 0.6 cm nodule in the left lower lobe which may be infectious/inflammatory or neoplastic in nature. Recommend continued attention to this area on follow-up exams. Stable 0.6 cm nodule in the superior segment of the left lower lobe. 3. No evidence of intrathoracic adenopathy. Transcribe Date/Time: Oct 31 2022 9:30A Dictated by: ALE AKERS MD This examination was interpreted and the report reviewed and electronically signed by: ALE AKERS MD on Oct 31 2022 9:56AM EST Thank you for allowing us to participate in the care of your patient. Should there be any questions regarding this interpretation, please call [phone]. If you are unable to reach us at the number above, please feel free to contact [facility] at [phone]. Assessment No problem-specific Assessment & Plan notes found for this encounter. ANESTHESIA FINDINGS: Intubation History: No history of difficult intubation Significant Anesthesia Considerations: none Airway History: No history of difficult airway Prepared for Surgery: optimally prepared for surgery. The Following Tests/Procedures Have Been Initiated: Orders Placed This Encounter mupirocin (BACTROBAN) 2 % ointment Sig: Apply a small amount in each nostril using a cotton swab twice the day before surgery and oncethe morning of surgery. Dispense: 22 g Refill: 0 Order Comments: Supply patient with Q-tips and instruction sheet ASA Class: 4 Planned Anesthetic: general I - PHYSICAL EVALUATION AIRWAY Patient intubated: No. Tracheostomy tube not present Mallampati: II. TM distance: >3 FB. Neck ROM: full ROM without neurological symptoms. Mouth opening: adequate. Short neck: no. Thick neck: no Upper lip bite test: no teeth. DENTAL Dentures, upper: complete. Dentures, lower: complete. II - ANESTHESIA PLAN ASA Score: 4 Anesthetic Plan: general Airway type: ETT Beta Brennan Monitoring Plan Post Procedure Analgesic Plan Informed Consent Anesthetic risks, benefits, alternatives, personnel and consent discussed: yes. Patient / Responsible Republican agrees to proceed: yes Patient / Surrogate agrees to blood products: Yes Instructions Given to Patient: Instructions located in the after visit summary. Patient given verbal and written preop instructions and voices comprehension and compliance. Signature: Ana Quigley MD Patient Name: Debby Hermosillo Date: November 11, 2022 Time: 11:25 AM Pager/Contact #: documented in this encounter[facility] History of Present illness Narrative* Mina Walden MD - 11/11/2022 2:20 PM EDT I had the pleasure of seeing Debby Hermosillo back in the office today for a scheduled pre-anesthesia evaluation in preparation for her right video lung resection scheduled for 11/15/22. We have discussed the conduct of the operation, the risks/benefits and the expected post-op course. After our discussion, the patient signed her informed consent. I have spent 20 minutes in counseling and coordination of care for this patient. I spent more than 50% of the visit face to face with the patient counseling on treatment options and the subsequent plan. Mina Walden MD CHART COPY DO NOT DISCARD . Patient here today for [facility] visit. . Surgery Right VATS Lower Lobe Wedge Resection scheduled for 11/15/2022Monday. . Meds allergies reviewed. Latex Allergy: No Anticoag:MVI/Supplements-last dose 11/11/2022 Medport: No Preoperative instructions; NPO after midnight night prior to surgery and Listerine after brushing teeth and Hibiclens Shower. Patient verbalized understanding of instructions. . Last clinic note 09/21/2022 per Mina Walden M.D. 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 IMPRESSION: Patient is a 57 year old female smoker presenting with new left lingular biopsy proven adenocarcinoma and a notable history of a RUL mixed SCLC/SqCLC trated in 2018. Her imaging also reveals a small lesion in the right base of uncertain etiology and, at tumor board discussion, the recommendation was to proceed with a right VATS wedge to exclude metastatic disease. We have discussed the conduct ofthe operation, risks/benefits and the expected postop course. We discussed the challenges due to her suboxone use which will likely lengthen her stay. Furthermore, due to past RT in the right chest, we may encounter adhesions requiring decort which could contribute to postop air leak. The patient is interested in proceeding with wedge resection thus we will contact her to make the necessary arrangements. PLAN: 1) stress test due to reports of chest pain and longstanding smoking history 2) update CT chest to assure RLL lesion has persisted at [facility] 3) Discuss plans for periop pain management with Dr. Browne 3) T[facility] 4) Right VATS wedge . Brain MRI: 09/17/2022 IMPRESSION: No MR evidence for acute intracranial abnormality. Extensive confluent FLAIR hyperintensity within the supratentorial white matter and lenard with progression possibly chronic ischemic changes and/or posttreatment related changes. Additional findings as discussed. . Today's visit 11/11/2022: CCT: 10/31/2022 IMPRESSION: 1. Interval increase in size of lingular and right lower lobe nodules, again concerning for neoplasm. 2. Newly appearing 0.6 cm nodule in the left lower lobe which may be infectious/inflammatory or neoplastic in nature. Recommend continued attention to this area on follow-up exams. Stable 0.6 cm nodule in the superior segment of the left lower lobe. 3. No evidence of intrathoracic adenopathy. . PFT: 09/21/2022 FEV1 (L) 2.16 1.48 2.06 2.60 105 DLCOunc (ml/min/mmHg) 11.80 13.91 20.08 26.25 58 6MW: none Cardiac Studies: Nuclear Medicine Stress Test: 11/11/2022 CONCLUSIONS: 1. SPECT Perfusion Study: Normal. 2. There is no scintigraphic evidence for inducible ischemia. 3. No evidence of scarred myocardium. 4. Left ventricle is normal in size. The left ventricle systolic function is normal. 5. Right ventricle is normal in size. The right ventricle systolic function is normal. 6. This is a low risk scan. Gated Stress FBP Gated Rest FBP LVEF % 68 68 EK11/11/2022 Prelim. Diagnosis: NORMAL SINUS RHYTHM NONSPECIFIC ST ABNORMALITY ABNORMAL ECG Risk, benefits, and alternatives discussed per Mina Walden M.D. H&P 11/11/[address] Walden Films 10/31/2022 CCT Jessika Cochran RN PHYSICAL EXAM BP 144/86 Pulse 97 Temp (Src) 98.9 (Oral) Ht 5' 0 (1.52m) Wt 81 lb (36.7kg) SpO2 96% BMI 15.82 kg/(m^2). Constitutional: Well developed, Well nourished , and No distress HEENT: Sclera anicteric, Poor dentition, and Neck No masses and No cervical, supraclavicular, or axillary adenopathy Resp: Clear Cardiovascular: Regular rate & rhythm and S1, S2 normal GI: Soft, Non-tender, and Non-distended Integumentary: Warm and No rash on chest, arms or legs Musculoskeletal: No deformities Neurological/Psychiatric: Oriented to time, place & person , Alert, Steady gait , and No gross focal neurologic deficits documented in this encounterH[facility] Hospital Discharge instructions Patient Education 11/01/2022 10:35:27 Dietary Guidelines to Help Prevent Kidney Stones Dietary Guidelines to Help Prevent Kidney Stones Kidney stones are deposits of minerals and salts that form inside your kidneys. Your risk of developing kidney stones may be greater depending on your diet, your lifestyle, the medicines you take, and whether you have certain medical conditions. Most people can lower their chances of developing kidney stones by following the instructions below. Your dietitian may give you more specific instructions depending on your overall health and the type of kidney stones you tend to develop. What are tips for following this plan? Reading food labels Choose foods with no salt added or low-salt labels. Limit your salt (sodium) intake to less than 1,500 mg a day. Choose foods with calcium for each meal and snack. Try to eat about 300 mg of calcium at each meal.Foods that contain 200 500 mg of calcium a serving include: ?8 oz (237 mL) of milk, dogqzuh-belcbhianird-uftok milk, and calcium- fortifiedfruit juice. Calcium-fortified means that calcium has been added to these drinks. ?8 oz (237 mL) of kefir, yogurt, and soy yogurt. ?4 oz (114 g) of tofu. ?1 oz (28 g) of cheese. ?1 cup (150 g) of dried figs. ?1 cup (91 g) of cooked broccoli. ?One 3 oz (85 g) can of sardines or mackerel. Most people need 1,000 1,500 mg of calcium a day. Talk to your dietitian about how much calcium is recommended for you. Shopping Buy plenty of fresh fruits and vegetables. Most people do not need to avoid fruits and vegetables, even if these foods contain nutrients that may contribute to kidney stones. When shopping for convenience foods, choose: ?Whole pieces of fruit. ?Pre-made salads with dressing on the side. ?Low-fat fruit and yogurt smoothies. Avoid buying frozen meals or prepared deli foods. These can be high in sodium. Look for foods with live cultures, such as yogurt and kefir. Choose high-fiber grains, such as whole-wheat breads, oat bran, and wheat cereals. Cooking Do not add salt to food when cooking. Place a salt shaker on the table and allow each person to addhis or her own salt to taste. Use vegetable protein, such as beans, textured vegetable protein (TVP), or tofu, instead of meat inpasta, casseroles, and soups. Meal planning Eat less salt, if told by your dietitian. To do this: ?Avoid eating processed or pre-made food. ?Avoid eating fast food. Eat less animal protein, including cheese, meat, poultry, or fish, if told by your dietitian. To dothis: ?Limit the number of times you have meat, poultry, fish, or cheese each week. Eat a diet free of meat at least 2 days a week. ?Eat only one serving each day of meat, poultry, fish, or seafood. ?When you prepare animal protein, cut pieces into small portion sizes. For most meat and fish, one serving is about the size of the palm of your hand. Eat at least five servings of fresh fruits and vegetables each day. To do this: ?Keep fruits and vegetables on hand for snacks. ?Eat one piece of fruit or a handful of berries with breakfast. ?Have a salad and fruit at lunch. ?Have two kinds of vegetables at dinner. Limit foods that are high in a substance called oxalate. These include: ?Spinach (cooked), rhubarb, beets, sweet potatoes, and Tog[place]ese chard. ?Peanuts. ?Potato chips, malawian fries, and baked potatoes with skin on. ?Nuts and nut products. ?Chocolate. If you regularly take a diuretic medicine, make sure to eat at least 1 or 2 servings of fruits or vegetables that are high in potassium each day. These include: ?Avocado. ?Banana. ?[place], prune, carrot, or tomato juice. ?Baked potato. ?Cabbage. ?Beans and split peas. Lifestyle Drink enough fluid to keep your urine pale yellow. This is the most important thing you can do. Spread your fluid intake throughout the day. If you drink alcohol: ?Limit how much you use to: ?0 1 drink a day for women who are not . ?0 2 drinks a day for men. ?Be aware of how much alcohol is in your drink. In the [place] one drink equals one 12 oz bottle of beer (355 mL), one 5 oz glass of wine (148 mL), or one 1 oz glass of hard liquor (44 mL). Lose weight if told by your health care provider. Work with your dietitian to find an eating plan and weight loss strategies that work best for you. General information Talk to your health care provider and dietitian about taking daily supplements. You may be told thefollowing depending on your health and the cause of your kidney stones: ?Not to take supplements with vitamin C. ?To take a calcium supplement. ?To take a daily probiotic supplement. ?To take other supplements such as magnesium, fish oil, or vitamin B6. Take wifj-nyy-kpjakju and prescription medicines only as told by your health care provider. These include supplements. What foods should I limit? Limit your intake of the following foods, or eat them as told by your dietitian. Vegetables Spinach. Rhubarb. Beets. Canned vegetables. Pickles. Olives. Baked potatoes with skin. Grains Wheat bran. Baked goods. Salted crackers. Cereals high in sugar. Meats and other proteins Nuts. Nut butters. Large portions of meat, poultry, or fish. Salted, precooked, or cured meats, such as sausages, meat loaves, and hot dogs. Dairy Cheese. Beverages Regular soft drinks. Regular vegetable juice. Seasonings and condiments Seasoning blends with salt. Salad dressings. Soy sauce. Ketchup. Barbecue sauce. Other foods Canned soups. Canned pasta sauce. Casseroles. Pizza. Lasagna. Frozen meals. Potato chips. [place] fries. The items listed above may not be a complete list of foods and beverages you should limit. Contact a dietitian for more information. What foods should I avoid? Talk to your dietitian about specific foods you should avoid based on the type of kidney stones youhave and your overall health. Fruits Grapefruit. The item listed above may not be a complete list of foods and beverages you should avoid. Contact adietitian for more information. Summary Kidney stones are deposits of minerals and salts that form inside your kidneys. You can lower your risk of kidney stones by making changes to your diet. The most important thing you can do is drink enough fluid. Drink enough fluid to keep your urine pale yellow. Talk to your dietitian about how much calcium you should have each day, and eat less salt and animal protein as told by your dietitian. This information is not intended to replace advice given to you by your health care provider. Make sure you discuss any questions you have with your health care provider. Document Revised: 11/08/2021 Document Reviewed: 11/08/2021 [employer] Patient Education 2022 [employer] Follow Up Care 05/04/2022 11:31:31 With:JESSIKA ESQUIVEL PA-C, URL Address: [address] [place] [id number] When:Within 1 Year(s) Comments:w/[employer] [facility] 08-21-2023 History of Present illness Narrative* Kerri Sethi RN - 10/31/2022 9:15 AM EDT Radiology Service Progress Note DATE OF SERVICE: October 31, 2022 TIME: 9:06 AM PATIENT WEIGHT: 83LBS PATIENT IDENTITY VERIFICATION COMPLETED USING TWO (2) STANDARD IDENTIFIERS: Name and Date of confirmed by patient verbally. FALL SCREENING: Has the patient had 2 falls in the last year or 1 fall with injury or currently using an Ambulatory Assistive Device (Walker, Cane, Wheelchair, Crutches, etc.)? No PATIENT GENDER DATA: Female. status: : No status: NO. ALLERGIES: Reviewed and unchanged CONTRAST ALLERGY: No EXAM: CT -CONTRAST INDUCED NEPHROPATHY RISK FACTORS: Not applicable CREATININE: Creatinine Date Value Ref Range Status 07/25/2022 1.01 (H) 0.58 - 0.96 mg/dL Final 06/29/2022 0.78 0.58 - 0.96 mg/dL Final 04/07/2022 0.81 0.58 - 0.96 mg/dL Final Estimated Glomerular Filtration Rate Date Value Ref Range Status 07/25/2022 64 >=60 mL/min/1.73m Final Comment: Estimated Glomerular Filtration Rate (eGFR) is calculated using the 2020 CKD-EPI creatinine equation. This equation utilizes serum creatinine, sex, and age as parameters. The creatinine assay has traceable calibration to isotope dilution- mass spectrometry. Refer to KDIGO guidelines for clinical interpretation. In patients with unstable renal function, e.g. those with acute kidney injury, the eGFRmay not accurately reflect actual GFR. eGFR- Date Value Ref Range Status 02/11/2021 52 Final P.O.C.T. RESULTS: POC done: Yes, See Lab Tab October 31, 2022 TREATMENT: N/A IV SITE: Ambulatory: A peripheral IV was started in the Left antecubital site with a Angio cath: 22gauge. IV SITE APPEARANCE: Clean,Dry and Intact SIGNATURE: Kerri Sethi RN PATIENT NAME: Debby Hermosillo DATE: October 31, 2022 TIME: 9:06 AM * Becky Ledezma, RT(R) - 10/31/2022 9:15 AM EDT Radiology Service Progress Note PATIENT NAME: Debby Hermosillo DATE OF SERVICE: October 31, 2022 TIME: 9:18 AM PATIENT IDENTITY VERIFICATION COMPLETED USING TWO (2) IDENTIFIERS: Name and Date of confirmedby patient verbally. FALL SCREENING: Has the patient had 2 falls in the last year or 1 fall with injury or currently using an Ambulatory Assistive Device (Walker, Cane, Wheelchair, Crutches, etc.)? No PATIENT GENDER DATA: Female. status: : No status: NO. PATIENT RELEVANT IMPLANT DATA REVIEWED: Not Applicable RADIOLOGY DEPARTMENT: CT; Exam(s) Completed: Chest PERIPHERAL IV DATA: Site assessment: Clean,Dry and Intact, Site disposition Discontinued SIGNED BY: RT Bhavana(R) October 31, 2022 9:18 AM documented in this encounterH[facility]07-12-2023 NoteHNO ID: [id number] Author: Mina Walden MD Service: ? 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 [facility] STAFF PHYSICIAN NOTE OF PERSONAL INVOLVEMENT IN CARE IMPRESSION: Patient is a 57 year old female smoker presenting with new left lingular biopsy proven adenocarcinoma and a notable history of a RUL mixed SCLC/SqCLC trated in 2018. Her imaging also reveals a small lesion in the right base of uncertain etiology and, at tumor board discussion, the recommendation was to proceed with a right VATS wedge to exclude metastatic disease. We have discussed the conduct of the operation, risks/benefits and the expected postop course. We discussed the challenges due to her suboxone use which will likely lengthen her stay. Furthermore, due to past RT in the right chest, we may encounter adhesions requiring decort which could contribute to postop air leak. The patient is interested in proceeding with wedge resection thus we will contact her to make the necessary arrangements. PLAN: 1) stress test due to reports of chest pain and longstanding smoking history 2) update CT chest to assure RLL lesion has persisted at [facility] 3) Discuss plans for periop pain management with Dr. Browne 3) TCI 4) Right VATS wedge I have reviewed the documentation obtained and documented by the Nurse Practitioner and I have personally performed the substantive portion of the visit which includes the medical decision making. I have discussed the case and management of the patient's care. STAFF PHYSICIAN: Mina Walden MD DATE OF SERVICE: September 21, 2022 TIME OF SERVICE: 4:39 PM Impression: Debby Hermosillo is a 57 year old White female with PMH of Stage II combined small cell and SCC of the RUL treated with 5 cycles of carboplatin and topside combined with radiation back in 2018 referred by Stacy Adhikari MD for an opinion regarding management of lung nodule. Plan: -Discussed in collaboration with and further plans to follow from Dr. Walden HPI: Debby Hermosillo is a 57 year old female current smoker (67.5 ppy Hx; down to 4 cigarettes/day) with PMH of Stage II combined small cell and SCC of the RUL treated with 5 cycles of carboplatin and topside combined with radiation back in 2018 referred by Stacy Adhikari MD for an opinion regarding management of lung nodule. In June 2022, patient underwent CT scan that demonstrated 8mm TAM nodular opacity increased in size since March 2022 as well as new mild reticulonodular opacities in the RLL. PET/CT scan done 07/2022 revealed two solid nodules in the lingula and RLL have increased since last CT 06/23 and a hypermetabolic nodule in the TAM suspicious for neoplasm. EBUS done 08/10 was positive for adenocarcinoma in the lingula nodule and lymph node 4L. Brain MRI was unremarkable. Patient was presented to tumor board, with recommendation of diagnostic wedge resection vs IR biopsy of RLL lesion, with understanding that wedge will be advised if non diagnostic. Denies any SOB. Notes occasional productive cough with a lot of clear mucus. Only notes hemoptysis after EBUS. States weight is stable. (document at least 4 of these elements) Location: RLL of Lung Quality: constant Timing: on 06/2022 CCT Associated signs and symptoms: Productive cough ECOG Score: 0 Living arrangement: Lives with family/friend Functional status: Independent Unintentional weight loss over last 3 months: No PAST MEDICAL HISTORY: PAST MEDICAL HISTORY Diagnosis Date Arthritis Asthma Back pain chronic Carpal tunnel syndrome, bilateral s/p repair - 2016 Current smoker DDD (degenerative disc disease), lumbar GERD (gastroesophageal reflux disease) Neck pain Neuropathy unclear origin- 6 months? saw neurologist (Dr. Hearn- [facility]); possible MS? Osteoporosis Pneumonia 06/2016 AND 12/2016 Small cell lung cancer in adult (HCC) 02/17/2017 Combined small cell carcinoma and squamous cell carcinoma with extensive necrosis PAST SURGICAL HISTORY: PAST SURGICAL HISTORY Procedure Laterality Date CARPAL TUNNEL CHOLECYSTECTOMY HX COLONOSCOPY HYSTERECTOMY HX NOSE SURGERY HX FRACTURE PAST SURGICAL HISTORY OF CONE BIOPSY 1982 FAMILY HISTORY: FAMILY HISTORY Problem Relation Age of Onset Arthritis Mother Diabetes Mother Cancer Mother bowel, thyroid Hypertension Father other (cabg) Father Cancer Brother colon Cancer Brother colon other (leukemia) Brother Diabetes Sister Diabetes Sister Diabetes Si (more content not included)...[facility]07-12-2023 History of Present illness Narrative* Mina Walden MD - 09/21/2022 3:00 PM EDT [facility] THORAC[facility] SURGERY OUTPATIENT CONSULT NOTE Debby Hermosillo [id number] Requesting Provider: Stacy Adhikari MD Thoracic Physician: Mina Walden MD Chief Complaint: New RLL nodule in setting of 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 [facility] STAFF PHYSICIAN NOTE OF PERSONAL INVOLVEMENT IN CARE IMPRESSION: Patient is a 57 year old female smoker presenting with new left lingular biopsy proven adenocarcinoma and a notable history of a RUL mixed SCLC/SqCLC trated in 2018. Her imaging also reveals a small lesion in the right base of uncertain etiology and, at tumor board discussion, the recommendation was to proceed with a right VATS wedge to exclude metastatic disease. We have discussed the conduct of the operation, risks/benefits and the expected postop course. We discussed the challenges due to her suboxone use which will likely lengthen her stay. Furthermore, due to past RT in the right chest, we may encounter adhesions requiring decort which could contribute to postop air leak. The patient is interested in proceeding with wedge resection thus we will contact her to make the necessary arrangements. PLAN: 1) stress test due to reports of chest pain and longstanding smoking history 2) update CT chest to assure RLL lesion has persisted at [facility] 3) Discuss plans for periop pain management with Dr. Browne 3) [facility] 4) Right VATS wedge I have reviewed the documentation obtained and documented by the Nurse Practitioner and I have personally performed the substantive portion of the visit which includes the medical decision making. I have discussed the case and management of the patient's care. STAFF PHYSICIAN: Mina Walden MD DATE OF SERVICE: September 21, 2022 TIME OF SERVICE: 4:39 PM Impression: Debby Hermosillo is a 57 year old White female with PMH of Stage II combined small celland SCC of the RUL treated with 5 cycles of carboplatin and topside combined with radiation back [id number] referred by Stacy Adhikari MD for an opinion regarding management of lung nodule. Plan: -Discussed in collaboration with and further plans to follow from Dr. Walden HPI: Debby Hermosillo is a 57 year old female current smoker (67.5 ppy Hx; down to 4 cigarettes/day) with PMH of Stage II combined small cell and SCC of the RUL treated with 5 cycles of carboplatin and topside combined with radiation back in 2017 referred by Stacy Adhikari MD for an opinion regarding management of lung nodule. In June 2022, patient underwent CT scan that demonstrated 8mm TAM nodular opacity increased in size since March 2022 as well as new mild reticulonodular opacities in the RLL. PET/CT scan done 07/2022 revealed two solid nodules in the lingula and RLL have increased since last CT 06/23 and a hypermetabolic nodule in the TAM suspicious for neoplasm. EBUS done 08/10 was p ositive for adenocarcinoma in the lingula nodule and lymph node 4L. Brain MRI was unremarkable. Patient was presented to tumor board, with recommendation of diagnostic wedge resection vs IR biopsy ofRLL lesion, with understanding that wedge will be advised if non diagnostic. Denies any SOB. Notes occasional productive cough with a lot of clear mucus. Only notes hemoptysis after EBUS. States weight is stable. (document at least 4 of these elements) Location: RLL of Lung Quality: constant Timing: on 06/2022 CCT Associated signs and symptoms: Productive cough ECOG Score: 0 Living arrangement: Lives with family/friend Functional status: Independent Unintentional weight loss over last 3 months: No PAST MEDICAL HISTORY: PAST MEDICAL HISTORY Diagnosis Date Arthritis Asthma Back pain chronic Carpal tunnel syndrome, bilateral s/p repair 2016 Current smoker DDD (degenerative disc disease), lumbar GERD (gastroesophageal reflux disease) Neck pain Neuropathy unclear origin- 6 months? saw neurologist (Dr. Hearn- In [facility]); possible MS? Osteoporosis Pneumonia 06/2016 & 12/2016 Small cell lung cancer in adult (HCC) 02/17/2017 Combined small cell carcinoma and squamous cell carcinoma with extensive necrosis PAST SURGICAL HISTORY: PAST SURGICAL HISTORY Procedure Laterality Date CARPAL TUNNEL CHOLECYSTECTOMY HX COLONOSCOPY HYSTERECTOMY HX NOSE SURGERY HX FRACTURE PAST SURGICAL HISTORY OF CONE BIOPSY 1982 FAMILY HISTORY: FAMILY HISTORY Problem Relation Age of Onset Arthritis Mother Diabetes Mother Cancer Mother bowel, thyroid Hypertension Father other (cabg) Father Cancer Brother colon Cancer Brother colon other (leukemia) Brother Diabetes Sister Diabetes Sister Diabetes Sister SOCIAL HISTORY: Social History Tobacco Use Smoking status: Every Day Packs/day: 1.50 Years: 45.00 Pack years: 67.50 Types: Cigarettes Smokeless tobacco: Never Vaping Use Vaping Use: Never used Substance Use Topics Alcohol use: No Drug use: Yes Frequency: 1.0 times per week Types: Marijuana Comment: previous marijuana MEDICATIONS: Prior to Admission Medications: benzonatate (TESSALON PERLE) 100 mg capsule Take 1 capsule by mouth three times daily as needed forcough. ondansetron (ZOFRAN) 8 mg tablet Take 1 tablet by mouth every 8 hours as needed for nausea/vomiting. prochlorperazine (COMPAZINE) 10 mg tablet TAKE 1 TABLET BY MOUTH EVERY 6 HOURS NEEDED atorvastatin (LIPITOR) 40 mg tablet Take 40 mg by mouth once daily. NURTEC ODT 75 mg disintegrating tablet DISSOLVE 1 TABLET ON THE TONGUE ONCE A DAY AT ONSET OF MIGRAINE folic acid 1 mg tablet TAKE 1 TABLET BY MOUTH EVERY DAY sucralfate (CARAFATE) 1 gram tablet TAKE 1 TABLET ON AN EMPTY STOMACH 4 TIMES A DAY FOR 30 DAYS SUBOXONE 8-2 mg film ACETAMINOPHEN (TYLENOL ORAL) Take by mouth. ALLERGIES: ALLERGIES Allergen Reactions Penicillins Unknown Chemical Exposure: No Asbestos Exposure No COMPLETE REVIEW OF SYSTEMS Constitutional: +Fatigue No weight loss or fevers. HEENT: +Cataracts Negative for frequent or significant headaches, No changes in hearing or vision, no nose bleeds or other nasal problems Resp: +See HPI Cardiovascular: +Centralized chest heaviness that lasted a few minutes last night and improved withtylenol Negative for chest pain, leg swelling or palpitations GI: +Loss of appetite at times. Nausea a couple of times a week that improves with zofran or compazine. Negative for abdominal discomfort, blood in stools or black stools or change in bowel habits : +H/o frequent UTI-follows with Urologist No history of dysuria, frequency, or incontinence and No difficulty urination, nocturia >1 times per night or hematuria Endo: Negative for cold or heat intolerance, polyuria, polydipsia and goiter Heme/Lymph: Negative for prolonged bleeding, bruising easily or swollen nodes Neurologic: +Migraines every once in a while-usually once a month, TIA-follows with Neurologist No history of syncope, paralysis, seizures or tremors Integumentary: Negative for lesions, rash, and itching. Additional systems reviewed: No additional systems reviewed PHYSICAL EXAM BP 153/69 Pulse 66 Temp (Src) 97.6 (Temporal) Resp 22 Ht 5' 0 (1.52m) Wt 82 lb 3.2 oz (37.3kg) SpO2 99% BMI 16.05 kg/(m^2). RA Constitutional: Thin and No acute distress HEENT: PERRLA and Sclera anicteric Resp: Clear and Respiratory effort: normal Cardiovascular: Regular rate & rhythm and S1, S2 normal GI: Soft, Non-tender, Bowel sounds present, and Non-distended Integumentary: Warm and Dry Musculoskeletal: No deformities and No joint deformities Neurological/Psychiatric: Oriented to time, place & person and No gross focal neurologic deficits Additional systems reviewed: No additional systems reviewed DATA: Pathology:08/10/2022 FINAL DIAGNOSIS A - TRANSBRONCHIAL FINE-NEEDLE ASPIRATION - LINGULA NODULE Positive for malignant cells. Adenocarcinoma. B - EBUS TRANSBRONCHIAL FINE NEEDLE ASPIRATE, LYMPH NODE - 4L Positive for malignant cells. Adenocarcinoma. Procedures:EBUS 08/10/2022 Impression: - Lung mass - Lymph node sizing and sampling was performed. - Rapid On-Site Evaluation (ADEN): Preliminary cytology was suggestive of atypical cells in node level 4L (final results are pending). Imaging . PET/CT: 07/15/2022 IMPRESSION: 1. Neck: No suspicious hypermetabolic foci 2. Chest: Hypermetabolic nodule in the left upper lobe suspicious for neoplasm. No hypermetabolic lymphadenopathy. 3. Abdomen and pelvis: No evidence of FDG avid neoplastic process 4. Skeleton: No hypermetabolic osseous lesions CT (chest): 08/05/2022 IMPRESSION: 1. Few small groundglass and solid pulmonary nodules are noted. At least two of the solid nodules in the lingula and right lower lobe have increased in size since 06/23/2022 and are concerning for neoplastic/metastatic disease. 2. No new or increasing intrathoracic lymphadenopathy is noted. CT (chest) 06/23/2022 IMPRESSION: 1. New mild reticulonodular opacities in the right lower lobe most likely infectious/inflammatory in etiology. Superimposed neoplasm cannot be excluded. 2. 8 mm left upper lobe nodular opacity increased in size since 03/31/22, worrisome for neoplasm. 3. Other subcentimeter nodular opacities and groundglass opacities are stable. CT (chest): 03/30/2022 IMPRESSION: 1. Interval development of a new 5 mm nodule in the right lower lobe. This may be infectious/inflammatory or neoplastic in nature. Recommend continued attention to this area on follow-up exams. 2. Stable appearance of 6 mm groundglass opacity in the right middle lobe. An additional 4 mm groundglass opacity more inferiorly in the right middle lobe appears slightly less conspicuous when compared to prior study. 3. Stable bandlike and nodular consolidative opacity in the right upper lobe and right suprahilar region, in keeping with postradiation fibrosis. MRI Brain 09/17/2022: IMPRESSION: No MR evidence for acute intracranial abnormality. Extensive confluent FLAIR hyperintensity within the supratentorial white matter and lenard with progression possibly chronic ischemic changes and/or posttreatment related changes. UGI: . Cardiopulmonary Testing . PFT's/DLCO: Requested PRE-BRONCH POST-BRONCH Pre LLN Pred ULN %Pred Post %Pred %Chg SPIROMETRY FVC (L) 3.07 1.85 2.53 3.24 121 FEV1 (L) 2.16 1.48 2.06 2.60 105 FEV1/FVC 0.70 0.69 0.81 0.91 86 DLCOunc (ml/min/mmHg) 11.80 13.91 20.08 26.25 58 Cardiac: I have personally reviewed the following images/data: CT scan, MRI, Pathology, PET Scan, and PFT/screening almita Outside Paper Medical Records Review personally performed by: myself SIGNATURE: Jose Rafael Fernandes APRN.CNP DATE of SERVICE: 09/21/2022 TIME of SERVICE: 1:10 PM documented in [facility] History of Present illness Narrative* Yen Dailey BOTTLE INSPECTOR - 09/21/2022 1:50 PM EDT PULM FUNCTION SMARTBLOCK: Provider: Mina Walden MD Assisting Tech: Yen Dailey BOTTLE INSPECTOR Spirometry: 1 DLCO: 1 documented in this encounterH[facility]07-10-2023 Miscellaneous Notes* Telephone Encounter - Becky Olivares RN - 09/19/2022 4:32 PM EDT Pt notified and verbalizes understanding. Becky Olivares RN * Telephone Encounter - Becky Olivares RN - 09/19/2022 4:32 PM EDT ----- Message from Stacy Adhikari MD sent at 09/19/2022 10:49 AM EDT ----- Call with negative MRI documented in this encounterH[facility]07-[facility]23 History of Present illness Narrative* Pamela Bailon RN - 09/17/2022 3:00 PM EDT Radiology Service Progress Note DATE OF SERVICE: September 17, 2022 TIME: 2:45 PM PATIENT WEIGHT: LBS PATIENT IDENTITY VERIFICATION COMPLETED USING TWO (2) STANDARD IDENTIFIERS: Name and Date of confirmed by patient verbally. FALL SCREENING: Has the patient had 2 falls in the last year or 1 fall with injury or currently using an Ambulatory Assistive Device (Walker, Cane, Wheelchair, Crutches, etc.)? No PATIENT GENDER DATA: Female. status: : No status: NO. ALLERGIES: Reviewed and unchanged CONTRAST ALLERGY: No EXAM: MRI - CONTRAST TYPE: GROUP II IV SITE: Ambulatory: A peripheral IV was started in the Left antecubital site with a Angio cath: 22gauge. IV SITE APPEARANCE: Clean,Dry and Intact SIGNATURE: Pamela Bailon RN PATIENT NAME: Debby Hermosillo DATE: September 17, 2022 TIME: 2:45 PM * Becky Eastman RT(R) - 09/17/2022 3:00 PM EDT Radiology Service Progress Note PATIENT NAME: Debby Hermosillo DATE OF SERVICE: September 17, 2022 TIME: 3:16 PM PATIENT IDENTITY VERIFICATION COMPLETED USING TWO (2) IDENTIFIERS: Name and Date of confirmedby patient verbally. FALL SCREENING: Has the patient had 2 falls in the last year or 1 fall with injury or currently using an Ambulatory Assistive Device (Walker, Cane, Wheelchair, Crutches, etc.)? No PATIENT GENDER DATA: Female. status: : No status: NO. PATIENT RELEVANT IMPLANT DATA REVIEWED: Yes RADIOLOGY DEPARTMENT: MR; Exam(s) Completed: Head: Routine Brain PERIPHERAL IV DATA: Site assessment: Clean,Dry and Intact, Site disposition Discontinued SIGNED BY: RT Patrice(R) September 17, 2022 3:16 PM documented in this encounterH[facility]06-07-[facility]23 History of Present illness Narrative* Stacy Adhikari MD - 08/17/2022 11:43 AM EDT Images from the original note were not included. PATIENT NAME: Debby Hermosillo [facility] NO.: [id number] ATTENDING PHYSICIAN: Stacy Adhikari MD DATE OF SERVICE: August 17, 2022 Some of the elements of this note have been copied from my previous progress note dated 07/20/2022. All the information has been reviewed carefully. Dear Dr. Gasper Beaver MD here is an update on a follow up visit on female Debby Hermosillo at the clinic August 17, 2022 Diagnosis: 1. 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 Previously managed by Dr. Beaver Treatment History: 1. Carboplatin and etoposide started March 24, 2017, combined with radiation. Radiotherapy completed May 17, 2017 right upper lobe Patient received a total of 5 cycles of carboplatin and etoposide last on July 12, 2017 Patient was subsequently placed on Imfinzi Per Dr. Beaver and last dose April 09, 2018 and per review of my notes stopped secondary to pancreatitis. HPI: Debby Hermosillo is a 57 year old year old female here for follow up. She underwent navigational bronch and also biopsy 08/10/2022 and overall doing well. PAST MEDICAL HISTORY Diagnosis Date Arthritis Asthma Back pain chronic Carpal tunnel syndrome, bilateral s/p repair - 2016 Current smoker DDD (degenerative disc disease), lumbar GERD (gastroesophageal reflux disease) Neck pain Neuropathy unclear origin- 6 months? saw neurologist (Dr. Hearn- In [facility]); possible MS? Osteoporosis Pneumonia 06/2016 & 12/2016 Small cell lung cancer in adult (HCC) 02/17/2017 Combined small cell carcinoma and squamous cell carcinoma with extensive necrosis Social History Tobacco Use Smoking status: Every Day Packs/day: 1.50 Years: 45.00 Pack years: 67.50 Types: Cigarettes Smokeless tobacco: Never Vaping Use Vaping Use: Never used Substance Use Topics Alcohol use: No Drug use: Yes Frequency: 1.0 times per week Types: Marijuana Comment: previous marijuana FAMILY HISTORY Problem Relation Age of Onset Arthritis Mother Diabetes Mother Cancer Mother bowel, thyroid Hypertension Father other (cabg) Father Cancer Brother colon Cancer Brother colon other (leukemia) Brother Diabetes Sister Diabetes Sister Diabetes Sister Past medical, social and family history reviewed without any changes. REVIEW OF SYSTEMS GENERAL: No weight loss, malaise or fevers. No night sweats. HEENT: Negative for headaches, No changes in hearing or vision, no nose bleeds or other nasal problems. RESPIRATORY: Negative for cough, wheezing and shortness of breath CARDIOVASCULAR: Negative for chest pain, leg swelling and palpitations GI: Negative for abdominal discomfort, blood in stools or black stools and change in bowel habits : Negative for dysuria, frequency and incontinence MUSCULOSKELETAL: Negative for joint pain or swelling, back pain, and muscle pain. SKIN: Negative for lesions, rash, and itching. HEMATOLOGY/LYMPHOLOGY Negative for prolonged bleeding, bruising easily, and swollen nodes. NEURO: Negative for numbness or tingling of hands/feet. No weakness. PHYSICAL EXAMINATION: BP 165/74 Pulse 89 Temp (Src) 98.3 (Temporal) Resp 16 Ht 5' .984 (1.55m) Wt 85 lb 9.6 oz(38.8kg) SpO2 99% BMI 16.18 kg/(m^2). Wt 40.1 kg (88 lb 6.4 oz) BMI 16.71 kg/m2 Last 3 Encounter Wt Readings: Date: Wt: 07/19/2019 40.1 kg (88 lb 6.4 oz) 01/16/2019 40.6 kg (89 lb 6.4 oz) 08/01/2018 42.1 kg (92 lb 12.8 oz) General appearance:ECOG PERFORMANCE STATUS: 0- Fully active, able to carry on all pre-disease performance w/o restriction. Patient in NAD. Skin: Skin color, texture, turgor normal. No rashes or lesions. Eyes: Anicteric sclera. Pupils are equally round and reactive to light. Extraocular movements are intact. Lymph Nodes: No cervical, supraclavicular, axillary or inguinal adenopathy. Oropharynx: Lips, mucosa, and tongue normal. Back: No pain to percussion. Negative SLR test Lungs clear to auscultation, No wheezing or rhonchi Heart: RRR without murmur, gallop, or rubs. Abdomen soft, non-tender. No masses, organomegaly Extremities: No deformities. No edema Neuro: Gait and speech normal. Reflexes normal and symmetric. Muscular strength intact. Sensation grossly intact. Rectal: Deferred : Deferred LABS: Glucose (mg/dL) Date Value 07/25/2022 100 02/11/2021 118 Potassium (mmol/L) Date Value 07/25/2022 4.1 02/11/2021 4.0 Sodium (mmol/L) Date Value 07/25/2022 138 02/11/2021 138 Chloride (mmol/L) Date Value 07/25/2022 101 02/11/2021 104 CO2 (mmol/L) Date Value 07/25/2022 27 02/11/2021 26 Creatinine (mg/dL) Date Value 07/25/2022 1.01 02/11/2021 1.28 BUN (mg/dL) Date Value 07/25/2022 25 02/11/2021 26 Anion Gap (mmol/L) Date Value 07/25/2022 10 02/11/2021 8 Calcium (mg/dL) Date Value 02/11/2021 9.7 Calcium, Total (mg/dL) Date Value 07/25/2022 10.0 Protein, Total (g/dL) Date Value 06/29/2022 6.6 02/11/2021 6.7 02/11/2021 6.4 Albumin (g/dL) Date Value 06/29/2022 4.4 02/11/2021 4.6 Bilirubin, Total (mg/dL) Date Value 06/29/2022 0.2 02/11/2021 <0.2 Alkaline Phosphatase (U/L) Date Value 06/29/2022 91 02/11/2021 67 AST (U/L) Date Value 06/29/2022 10 02/11/2021 11 ALT (U/L) Date Value 06/29/2022 5 02/11/2021 5 WBC Date Value Ref Range Status 07/25/2022 9.93 3.70 - 11.00 k/uL Final RBC Date Value Ref Range Status 07/25/2022 3.49 (L) 3.90 - 5.20 m/uL Final Hemoglobin Date Value Ref Range Status 07/25/2022 12.5 11.5 - 15.5 g/dL Final Hematocrit Date Value Ref Range Status 07/25/2022 37.3 36.0 - 46.0 % Final MCV Date Value Ref Range Status 07/25/2022 106.9 (H) 80.0 - 100.0 fL Final MCH Date Value Ref Range Status 07/25/2022 35.8 (H) 26.0 - 34.0 pg Final MCHC Date Value Ref Range Status 07/25/2022 33.5 30.5 - 36.0 g/dL Final RDW-CV Date Value Ref Range Status 07/25/2022 13.0 11.5 - 15.0 % Final Platelet Count Date Value Ref Range Status 07/25/2022 182 150 - 400 k/uL Final MPV Date Value Ref Range Status 07/25/2022 9.3 9.0 - 12.7 fL Final Abs Neut Date Value Ref Range Status 07/25/2022 7.28 1.45 - 7.50 k/uL Final Lymphocytes % Date Value Ref Range Status 07/25/2022 16.2 % Final Abs Lymph Date Value Ref Range Status 07/25/2022 1.61 1.00 - 4.00 k/uL Final Monocytes % Date Value Ref Range Status 07/25/2022 8.6 % Final Abs [place] Date Value Ref Range Status 07/25/2022 0.85 <0.87 k/uL Final Eosinophils % Date Value Ref Range Status 07/25/2022 1.1 % Final Abs Eosin Date Value Ref Range Status 07/25/2022 0.11 <0.46 k/uL Final Basophils % Date Value Ref Range Status 07/25/2022 0.2 % Final Abs Baso Date Value Ref Range Status 07/25/2022 <0.03 <0.11 k/uL Final PATH: Saúl biopsy February 2017: Right lung, upper lobe nodule, endobronchial biopsy 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 Bronch Lingula and 4L 07/2022: A - TRANSBRONCHIAL FINE-NEEDLE ASPIRATION - LINGULA NODULE Positive for malignant cells. Adenocarcinoma. B - EBUS TRANSBRONCHIAL FINE NEEDLE ASPIRATE, LYMPH NODE - 4L Positive for malignant cells. Adenocarcinoma. Imaging: PET scan July 18, 2019: 1. NECK: * NO FDG AVID NEOPLASTIC PROCESS.. 2. CHEST: * NO FDG AVID NEOPLASTIC PROCESS. * 1.4 X 0.9 CM HYPOMETABOLIC RIGHT UPPER LOBE NODULE WITH ADJACENT PARENCHYMAL SCARRING LATERALLY, IMPROVED SINCE 01/09/2019. FINDINGS ARE COMPATIBLE WITH SATISFACTORY RESPONSE OF TREATED RIGHT UPPER LOBE NODULE POST CHEMORADIATION. * 0.6 CM AND 0.4 CM FAINT RIGHT MIDDLE LOBE GROUNDGLASS ATTENUATION DENSITIES, STABLE SINCE 09/12/2017. 3. ABDOMEN/PELVIS: * NO FDG AVID NEOPLASTIC PROCESS. . 4. EXTREMITIES/SKELETON: * NO SUSPICIOUS FDG AVID OSSEOUS LESION. CT of the chest with contrast January 20, 2020: 1. Interval decrease in size of right upper lobe nodular opacity, now measuring 1.5 cm in size. 2. Slight interval increase in surrounding groundglass and reticular opacities, likely on the basis of posttreatment change. 3. No evidence of bulky intrathoracic lymphadenopathy. CT scan of the chest August 12, 2020: 1. No interval change since 01/17/2020. 2. 1.3 x 0.7 cm right upper lobe nodular opacity, most likely the known primary neoplasm, stable 3. Adjacent right upper lobe patchy opacities most likely related to post radiation change or other infectious/inflammatory etiologies, stable. 4. Other small subcentimeter groundglass opacities in the right lung, stable. CT of the Chest 02/2021: 1. Right upper lobe post radiation change, increased since 08/07/20, now obscuring the previously described reticulonodular opacity. 2. Other small subcentimeter groundglass opacities in the right lung, Stable. MRI Brain 02/2021: CT Chest 08/2021: 1. Mild patchy airspace opacification within the lingula, favored to be infectious/inflammation. Continued attention on subsequent studies is suggested. 2. Since 02/25/2021, unchanged groundglass opacities within the right middle lobe measuring up to 0.5 cm. 3. 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 4. Unchanged moderate intrahepatic biliary ductal dilatation. MRI Brain 09/2021: CT Scan of the Chest and Abdomen and Pelvis 03/2022: 1. Interval development of a new 5 mm nodule in the right lower lobe. This may be infectious/inflammatory or neoplastic in nature. Recommend continued attention to this area on follow-up exams. 2. Stable appearance of 6 mm groundglass opacity in the right middle lobe. An additional 4 mm groundglass opacity more inferiorly in the right middle lobe appears slightly less conspicuous when compared to prior study. 3. Stable bandlike and nodular consolidative opacity in the right upper lobe and right suprahilar region, in keeping with postradiation fibrosis. 1. No evidence of metastatic disease in the abdomen or pelvis. 2. Moderate biliary ductal dilation, similar in appearance to prior CT chest, but new when compared to prior PET/CT. No obstructing calculus or mass is visualized. 3. Nonobstructive nephrolithiasis in the right kidney. CT Chest 06/2022: 1. New mild reticulonodular opacities in the right lower lobe most likely infectious/inflammatory in etiology. Superimposed neoplasm cannot be excluded. 2. 8 mm left upper lobe nodular opacity increased in size since 03/31/22, worrisome for neoplasm. 3. Other subcentimeter nodular opacities and groundglass opacities are stable. PET Scan 07/2022: 1. Neck: No suspicious hypermetabolic foci 2. Chest: Hypermetabolic nodule in the left upper lobe suspicious for neoplasm. No hypermetabolic lymphadenopathy. 3. Abdomen and pelvis: No evidence of FDG avid neoplastic process 4. Skeleton: No hypermetabolic osseous lesions MRI Brain 06/2022: CT 07/2022: 1. Few small groundglass and solid pulmonary nodules are noted. At least two of the solid nodules in the lingula and right lower lobe have increased in size since 06/23/2022 and are concerning for neoplastic/metastatic disease. 2. No new or increasing intrathoracic lymphadenopathy is noted. Assessment and Plan: Debby Hermosillo is a 57 year old year old female here for follow up. 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 06/2022 with enlarging TAM opacity has enlarged, PET scan confirms that the lesion is PET avid and does not detail any additional sites of disease. Patient was presented at the tumor board and repeat CT 07/2022 with increasing lingular and RLL lesion. She underwent a bronch and EBUS and the lingula and 4L node are both positive for Adenocarcinoma and molecular studies pending. Likely stage IV disease and will present at [facility] next week and discuss. Will reach out to the patient after the TB [employer] today as well. See back in 1 week Thank you for the kind referral. If there are any questions and or concerns please do not hesitate to contact me at [phone]. Stacy Adhikari MD Hematology/Medical Oncology [facility] CC: Milton Madison MD I spent a total of 30 minutes on the date of the service which included preparing to see the patient, [id number] patient care, completing clinical documentation, obtaining and/or reviewing separately obtained history, performing a medically appropriate examination, counseling and educating the pat ient/family/caregiver and ordering medications, tests, or procedures. documented in this encounterH[facility]05-[facility] History of Present illness Narrative* Becky Ledezma RT(R) - 08/05/2022 7:45 AM EDT Radiology Service Progress Note PATIENT NAME: Debby Hermosillo DATE OF SERVICE: August 05, 2022 TIME: 7:57 AM PATIENT IDENTITY VERIFICATION COMPLETED USING TWO (2) IDENTIFIERS: Name and Date of confirmedby patient verbally. FALL SCREENING: Has the patient had 2 falls in the last year or 1 fall with injury or currently using an Ambulatory Assistive Device (Walker, Cane, Wheelchair, Crutches, etc.)? No PATIENT GENDER DATA: Female. status: : No status: NO. PATIENT RELEVANT IMPLANT DATA REVIEWED: Not Applicable RADIOLOGY DEPARTMENT: CT; Exam(s) Completed: Chest-SUPER D PERIPHERAL IV DATA: Not applicable SIGNED BY: RT Bhavana(R) August 05, 2022 7:57 AM documented in this [facility] History of Present illness Narrative* Stacy Adhikari MD - 07/20/2022 1:54 PM EDT Images from the original note were not included. PATIENT NAME: Debby Hermosillo CLINIC NO.: [id number] ATTENDING PHYSICIAN: Stacy Adhikari MD DATE OF SERVICE: July 20, 2022 Some of the elements of this note have been copied from my previous progress note dated 06/29/2022. All the information has been reviewed carefully. Dear Dr. Gasper Beaver MD here is an update on a follow up visit on female Debby Hermosillo at the clinic July 20, 2022 Diagnosis: 1. 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 Previously managed by Dr. Beaver Treatment History: 1. Carboplatin and etoposide started March 24, 2017, combined with radiation. Radiotherapy completed May 17, 2017 right upper lobe Patient received a total of 5 cycles of carboplatin and etoposide last on July 12, 2017 Patient was subsequently placed on Imfinzi Per Dr. Beaver and last dose April 09, 2018 and per review of my notes stopped secondary to pancreatitis. HPI: Debby Hermosillo is a 57 year old year old female here for follow up. She denies any new complaints. She has been contacted by the pulmonary service and a biopsy is potentially scheduled for August 02. PAST MEDICAL HISTORY Diagnosis Date Arthritis Asthma Back pain chronic Carpal tunnel syndrome, bilateral s/p repair - 2016 Current smoker DDD (degenerative disc disease), lumbar GERD (gastroesophageal reflux disease) Neck pain Neuropathy unclear origin- 6 months? saw neurologist (Dr. Hearn- In [facility]); possible MS? Osteoporosis Pneumonia 06/2016 & 12/2016 Small cell lung cancer in adult (HCC) 02/17/2017 Combined small cell carcinoma and squamous cell carcinoma with extensive necrosis Social History Tobacco Use Smoking status: Every Day Packs/day: 0.25 Years: 35.00 Pack years: 8.75 Types: Cigarettes Smokeless tobacco: Never Vaping Use Vaping Use: Never used Substance Use Topics Alcohol use: No Drug use: Yes Frequency: 1.0 times per week Types: Marijuana Comment: previous marijuana FAMILY HISTORY Problem Relation Age of Onset Arthritis Mother Diabetes Mother Cancer Mother bowel, thyroid Hypertension Father other (cabg) Father Cancer Brother colon Cancer Brother colon other (leukemia) Brother Diabetes Sister Diabetes Sister Diabetes Sister Past medical, social and family history reviewed without any changes. REVIEW OF SYSTEMS GENERAL: No weight loss, malaise or fevers. No night sweats. HEENT: Negative for headaches, No changes in hearing or vision, no nose bleeds or other nasal problems. RESPIRATORY: Negative for cough, wheezing and shortness of breath CARDIOVASCULAR: Negative for chest pain, leg swelling and palpitations GI: Negative for abdominal discomfort, blood in stools or black stools and change in bowel habits : Negative for dysuria, frequency and incontinence MUSCULOSKELETAL: Negative for joint pain or swelling, back pain, and muscle pain. SKIN: Negative for lesions, rash, and itching. HEMATOLOGY/LYMPHOLOGY Negative for prolonged bleeding, bruising easily, and swollen nodes. NEURO: Negative for numbness or tingling of hands/feet. No weakness. PHYSICAL EXAMINATION: BP 151/70 Pulse 81 Temp (Src) 97.6 (Temporal) Resp 16 Ht 5' .984 (1.55m) Wt 86 lb (39.0kg) SpO2 97% BMI 16.26 kg/(m^2). Wt 40.1 kg (88 lb 6.4 oz) BMI 16.71 kg/m2 Last 3 Encounter Wt Readings: Date: Wt: 07/19/2019 40.1 kg (88 lb 6.4 oz) 01/16/2019 40.6 kg (89 lb 6.4 oz) 08/01/2018 42.1 kg (92 lb 12.8 oz) General appearance:ECOG PERFORMANCE STATUS: 0- Fully active, able to carry on all pre-disease performance w/o restriction. Patient in NAD. Skin: Skin color, texture, turgor normal. No rashes or lesions. Eyes: Anicteric sclera. Pupils are equally round and reactive to light. Extraocular movements are intact. Lymph Nodes: No cervical, supraclavicular, axillary or inguinal adenopathy. Oropharynx: Lips, mucosa, and tongue normal. Back: No pain to percussion. Negative SLR test Lungs clear to auscultation, No wheezing or rhonchi Heart: RRR without murmur, gallop, or rubs. Abdomen soft, non-tender. No masses, organomegaly Extremities: No deformities. No edema Neuro: Gait and speech normal. Reflexes normal and symmetric. Muscular strength intact. Sensation grossly intact. Rectal: Deferred : Deferred LABS: Glucose (mg/dL) Date Value 06/29/2022 104 02/11/2021 118 Potassium (mmol/L) Date Value 06/29/2022 3.5 02/11/2021 4.0 Sodium (mmol/L) Date Value 06/29/2022 138 02/11/2021 138 Chloride (mmol/L) Date Value 06/29/2022 104 02/11/2021 104 CO2 (mmol/L) Date Value 06/29/2022 26 02/11/2021 26 Creatinine (mg/dL) Date Value 06/29/2022 0.78 02/11/2021 1.28 BUN (mg/dL) Date Value 06/29/2022 15 02/11/2021 26 Anion Gap (mmol/L) Date Value 06/29/2022 8 02/11/2021 8 Calcium (mg/dL) Date Value 02/11/2021 9.7 Calcium, Total (mg/dL) Date Value 06/29/2022 9.6 Protein, Total (g/dL) Date Value 06/29/2022 6.6 02/11/2021 6.7 02/11/2021 6.4 Albumin (g/dL) Date Value 06/29/2022 4.4 02/11/2021 4.6 Bilirubin, Total (mg/dL) Date Value 06/29/2022 0.2 02/11/2021 <0.2 Alkaline Phosphatase (U/L) Date Value 06/29/2022 91 02/11/2021 67 AST (U/L) Date Value 06/29/2022 10 02/11/2021 11 ALT (U/L) Date Value 06/29/2022 5 02/11/2021 5 WBC Date Value Ref Range Status 06/29/2022 8.29 3.70 - 11.00 k/uL Final RBC Date Value Ref Range Status 06/29/2022 3.43 (L) 3.90 - 5.20 m/uL Final Hemoglobin Date Value Ref Range Status 06/29/2022 12.2 11.5 - 15.5 g/dL Final Hematocrit Date Value Ref Range Status 06/29/2022 36.7 36.0 - 46.0 % Final MCV Date Value Ref Range Status 06/29/2022 107.0 (H) 80.0 - 100.0 fL Final MCH Date Value Ref Range Status 06/29/2022 35.6 (H) 26.0 - 34.0 pg Final MCHC Date Value Ref Range Status 06/29/2022 33.2 30.5 - 36.0 g/dL Final RDW-CV Date Value Ref Range Status 06/29/2022 12.9 11.5 - 15.0 % Final Platelet Count Date Value Ref Range Status 06/29/2022 159 150 - 400 k/uL Final MPV Date Value Ref Range Status 06/29/2022 9.0 9.0 - 12.7 fL Final Abs Neut Date Value Ref Range Status 06/29/2022 5.99 1.45 - 7.50 k/uL Final Lymphocytes % Date Value Ref Range Status 06/29/2022 18.5 % Final Abs Lymph Date Value Ref Range Status 06/29/2022 1.53 1.00 - 4.00 k/uL Final Monocytes % Date Value Ref Range Status 06/29/2022 7.7 % Final Abs [place] Date Value Ref Range Status 06/29/2022 0.64 <0.87 k/uL Final Eosinophils % Date Value Ref Range Status 06/29/2022 1.0 % Final Abs Eosin Date Value Ref Range Status 06/29/2022 0.08 <0.46 k/uL Final Basophils % Date Value Ref Range Status 06/29/2022 0.2 % Final Abs Baso Date Value Ref Range Status 06/29/2022 <0.03 <0.11 k/uL Final PATH: Saúl biopsy February 2017: Right lung, upper lobe nodule, endobronchial biopsy 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 Imaging: PET scan July 18, 2019: 1. NECK: * NO FDG AVID NEOPLASTIC PROCESS.. 2. CHEST: * NO FDG AVID NEOPLASTIC PROCESS. * 1.4 X 0.9 CM HYPOMETABOLIC RIGHT UPPER LOBE NODULE WITH ADJACENT PARENCHYMAL SCARRING LATERALLY, IMPROVED SINCE 01/09/2019. FINDINGS ARE COMPATIBLE WITH SATISFACTORY RESPONSE OF TREATED RIGHT UPPER LOBE NODULE POST CHEMORADIATION. * 0.6 CM AND 0.4 CM FAINT RIGHT MIDDLE LOBE GROUNDGLASS ATTENUATION DENSITIES, STABLE SINCE 09/12/2017. 3. ABDOMEN/PELVIS: * NO FDG AVID NEOPLASTIC PROCESS. . 4. EXTREMITIES/SKELETON: * NO SUSPICIOUS FDG AVID OSSEOUS LESION. CT of the chest with contrast January 20, 2020: 1. Interval decrease in size of right upper lobe nodular opacity, now measuring 1.5 cm in size. 2. Slight interval increase in surrounding groundglass and reticular opacities, likely on the basis of posttreatment change. 3. No evidence of bulky intrathoracic lymphadenopathy. CT scan of the chest August 12, 2020: 1. No interval change since 01/17/2020. 2. 1.3 x 0.7 cm right upper lobe nodular opacity, most likely the known primary neoplasm, stable 3. Adjacent right upper lobe patchy opacities most likely related to post radiation change or other infectious/inflammatory etiologies, stable. 4. Other small subcentimeter groundglass opacities in the right lung, stable. CT of the Chest 02/2021: 1. Right upper lobe post radiation change, increased since 08/07/20, now obscuring the previously described reticulonodular opacity. 2. Other small subcentimeter groundglass opacities in the right lung, Stable. MRI Brain 02/2021: CT Chest 08/2021: 1. Mild patchy airspace opacification within the lingula, favored to be infectious/inflammation. Continued attention on subsequent studies is suggested. 2. Since 02/25/2021, unchanged groundglass opacities within the right middle lobe measuring up to 0.5 cm. 3. 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 4. Unchanged moderate intrahepatic biliary ductal dilatation. MRI Brain 09/2021: CT Scan of the Chest and Abdomen and Pelvis 03/2022: 1. Interval development of a new 5 mm nodule in the right lower lobe. This may be infectious/inflammatory or neoplastic in nature. Recommend continued attention to this area on follow-up exams. 2. Stable appearance of 6 mm groundglass opacity in the right middle lobe. An additional 4 mm groundglass opacity more inferiorly in the right middle lobe appears slightly less conspicuous when compared to prior study. 3. Stable bandlike and nodular consolidative opacity in the right upper lobe and right suprahilar region, in keeping with postradiation fibrosis. 1. No evidence of metastatic disease in the abdomen or pelvis. 2. Moderate biliary ductal dilation, similar in appearance to prior CT chest, but new when compared to prior PET/CT. No obstructing calculus or mass is visualized. 3. Nonobstructive nephrolithiasis in the right kidney. CT Chest 06/2022: 1. New mild reticulonodular opacities in the right lower lobe most likely infectious/inflammatory in etiology. Superimposed neoplasm cannot be excluded. 2. 8 mm left upper lobe nodular opacity increased in size since 03/31/22, worrisome for neoplasm. 3. Other subcentimeter nodular opacities and groundglass opacities are stable. PET Scan 07/2022: 1. Neck: No suspicious hypermetabolic foci 2. Chest: Hypermetabolic nodule in the left upper lobe suspicious for neoplasm. No hypermetabolic lymphadenopathy. 3. Abdomen and pelvis: No evidence of FDG avid neoplastic process 4. Skeleton: No hypermetabolic osseous lesions MRI Brain 06/2022: Assessment and Plan: Debby Hermosillo is a 57 year old year old female here for follow up. 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 06/2022 with enlarging TAM opacity has enlarged, PET scan confirms that the lesion is PET avid and does not detail any additional sites of disease. Patient was presented at the tumor board and the plan is for her to see pulmonary for potential navigational bronchoscopy and biopsy. See back in 1 month Thank you for the kind referral. If there are any questions and or concerns please do not hesitate to contact me at [phone]. Stacy Adhikari MD Hematology/Medical Oncology [facility] CC: Milton Madison MD I spent a total of 30 minutes on the date of the service which included preparing to see the patient, [id number] patient care, completing clinical documentation, obtaining and/or reviewing separately obtained history, performing a medically appropriate examination, counseling and educating the pat ient/family/caregiver and ordering medications, tests, or procedures. documented in this encounterH[facility]05-[facility]23 History of Present illness Narrative* Yue Pineda RN - 07/15/2022 12:00 PM EDT Radiology Service Progress Note DATE OF SERVICE: July 15, 2022 TIME: 12:09 PM PATIENT WEIGHT: 86 LBS PATIENT IDENTITY VERIFICATION COMPLETED USING TWO (2) STANDARD IDENTIFIERS: Name and Date of confirmed by patient verbally. FALL SCREENING: Has the patient had 2 falls in the last year or 1 fall with injury or currently using an Ambulatory Assistive Device (Walker, Cane, Wheelchair, Crutches, etc.)? No PATIENT GENDER DATA: Female. status: : No status: NO. ALLERGIES: Reviewed and unchanged EXAM: CT -CONTRAST INDUCED NEPHROPATHY RISK FACTORS: Not applicable CREATININE: Creatinine Date Value Ref Range Status 06/29/2022 0.78 0.58 - 0.96 mg/dL Final 04/07/2022 0.81 0.58 - 0.96 mg/dL Final 09/14/2021 0.91 0.58 - 0.96 mg/dL Final Estimated Glomerular Filtration Rate Date Value Ref Range Status 06/29/2022 88 >=60 mL/min/1.73m Final Comment: Estimated Glomerular Filtration Rate (eGFR) is calculated using the 2020 CKD-EPI creatinine equation. This equation utilizes serum creatinine, sex, and age as parameters. The creatinine assay has traceable calibration to isotope dilution- mass spectrometry. Refer to KDIGO guidelines for clinical interpretation. In patients with unstable renal function, e.g. those with acute kidney injury, the eGFRmay not accurately reflect actual GFR. eGFR- Date Value Ref Range Status 02/11/2021 52 Final P.O.C.T. RESULTS: POC done: Yes, See Lab Tab July 15, 2022 TREATMENT: N/A IV SITE: Ambulatory: A peripheral IV was started in the Left antecubital site with a Angio cath: 22gauge. IV SITE APPEARANCE: Clean,Dry and Intact SIGNATURE: Yue Pineda RN PATIENT NAME: Debby Hermosillo DATE: July 15, 2022 TIME: 12:09 PM * Becky Ledezma, RT(R) - 07/15/2022 12:00 PM EDT RADIOLOGY SERVICE PROGRESS NOTE SERVICE DATE: 07/15/2022 SERVICE TIME: 12:10 PM PATIENT IDENTITY VERIFICATION COMPLETED USING TWO (2) STANDARD IDENTIFIERS: Name and Date of confirmed by patient verbally POST EXAM PIV STATUS: Discontinued PROCEDURE TYPE: NM INJECT: PET/CT BODY SCAN. 7.1 mCi F18 FDG. No other medications given.. ADMINISTRATION TIME: 1206 PATIENT DISCHARGED TO: Ambulatory patient, left [place] department area. A Diagnostic radioactive procedure has taken place, with no further precautions necessary other than routine body substance precautions. More information regarding radiation safety can be found usingthis link: [email or web address] SIGNATURE: RT Bhavana(R) PATIENT NAME: Debby Hermosillo DATE: July 15, 2022 TIME: 12:10 PM PAGER/CONTACT #: documented in this encounterHarrison [facility] Hospital04-25-2023 Miscellaneous Notes* Telephone Encounter - Mila Briscoe RN - 07/05/2022 2:50 PM EDT Pt notified of recommendations and is agreeable to plan. Pt is scheduled for PET on 07/15. Mila Briscoe RN * Telephone Encounter - Mila Briscoe RN - 07/05/2022 2:39 PM EDT ----- Message from Stacy Adhikari MD sent at 07/05/2022 7:39 AM EDT ----- Regarding: update [Lease let her know that I presented at the TB at [facility] and will await a PET and if PET negatve theyrecommemded an EBUS and navigational biopsy at [facility] if she is agreeable. Thanks documented in this encounterHarrison [facility] Hospital04-25-2023 History of Present illness Narrative* Dre Cantor MD - 07/05/2022 8:04 AM EDT Bronchoscopy Request: Message sent to MDs if patient is [facility] beam Candidate (07/05) Please schedule patient for the following: Outpatient Visit: New Consult with Staff: Patient Choice (Virtual or In-Person) Bronchoscopy Procedures: Staging EBUS Robotic Bronchoscopy Auris (BRENDAN/SS/MM/FA/CG) Robotic Bronchoscopy ION (TG/CG/LL/AM/MA/SL/SS/BRENDAN/SG/BB) Diagnosis/Reason for Bronchoscopy: Lung nodule(s)/Mass, needs staging and diagnosis Timing: Next available Time Allotment/Tier: Tier 3 (Hany + staging) Physician Performing Bronchoscopy:Dr. Sierra, Dr. Mi, Dr. Abdul, Dr. Vazquez, Dr Cantor, Dre, Dr. Munguia, Dr. Ram , Dr. Candelario, Dr. Smith, and Dr. Joe (If ION Robot, TG, FA, BRENDAN, SS, CG, MA, SG, SL, or LL; If Robot ([place]eds), MM, FA, BRENDAN, SS, CG, SL or LL) Needs Labs: Yes, CBC, BMP, and COVID screen Needs EKG: Yes Needs CT prior: Yes EMN Bronchoscopy Protocol Chest CT Does the pt need cardiac clearance?: No Is she on anticoagulants/anti-plt therapy?: No Nursing Considerations: (ie: skilled nursing, TB, respiratory isolation, clinical trial, Specific protocol etc.) none Additional notes to the pretzel twisting machine operator: Localize and sample enlarging lingular nodule, if possible, followed by staging. 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 Consultation request/referral by: Stacy Adhikari/ tumor board Reviewed by: MD Dre Weaver MD July 05, 2022 8:04 AM Addendum: CBC with diff: WBC 8.29 06/29/2022 RBC 3.43 06/29/2022 Hemoglobin 12.2 06/29/2022 Hematocrit 36.7 06/29/2022 MCV 107.0 06/29/2022 MCH 35.6 06/29/2022 MCHC 33.2 06/29/2022 RDW-CV 12.9 06/29/2022 Platelet Count 159 06/29/2022 MPV 9.0 06/29/2022 Neut% 72.2 06/29/2022 Lymph% 18.5 06/29/2022 [place]% 7.7 06/29/2022 Eosin% 2.0 02/11/2021 Baso% 0.2 06/29/2022 Abs Neut (ANC) 5.99 06/29/2022 Abs Lym 0.86 06/20/2017 Abs [place] 0.64 06/29/2022 Abs Eosin 0.08 06/29/2022 Abs Baso <0.03 06/29/2022 Potassium Date Value Ref Range Status 06/29/2022 3.5 (L) 3.7 - 5.1 mmol/L Final 04/07/2022 3.7 3.7 - 5.1 mmol/L Final 09/14/2021 3.3 (L) 3.7 - 5.1 mmol/L Final Sodium Date Value Ref Range Status 06/29/2022 138 136 - 144 mmol/L Final 04/07/2022 141 136 - 144 mmol/L Final 09/14/2021 141 136 - 144 mmol/L Final BUN Date Value Ref Range Status 06/29/2022 15 7 - 21 mg/dL Final Creatinine Date Value Ref Range Status 06/29/2022 0.78 0.58 - 0.96 mg/dL Final documented in this encounterHarrison [facility] Hospital04-13-2023 History of Present illness Narrative* Yue Pindea RN - 06/23/2022 10:15 AM EDT Radiology Service Progress Note DATE OF SERVICE: June 23, 2022 TIME: 10:17 AM PATIENT WEIGHT: 87 LBS PATIENT IDENTITY VERIFICATION COMPLETED USING TWO (2) STANDARD IDENTIFIERS: Name and Date of confirmed by patient verbally. FALL SCREENING: Has the patient had 2 falls in the last year or 1 fall with injury or currently using an Ambulatory Assistive Device (Walker, Cane, Wheelchair, Crutches, etc.)? No PATIENT GENDER DATA: Female. status: : No status: NO. ALLERGIES: Reviewed and unchanged CONTRAST ALLERGY: No EXAM: CT -CONTRAST INDUCED NEPHROPATHY RISK FACTORS: Not applicable CREATININE: Creatinine Date Value Ref Range Status 04/07/2022 0.81 0.58 - 0.96 mg/dL Final 09/14/2021 0.91 0.58 - 0.96 mg/dL Final 02/11/2021 1.28 (H) 0.58 - 0.96 mg/dL Final Estimated Glomerular Filtration Rate Date Value Ref Range Status 04/07/2022 84 >=60 mL/min/1.73m Final Comment: Estimated Glomerular Filtration Rate (eGFR) is calculated using the 2020 CKD-EPI creatinine equation. This equation utilizes serum creatinine, sex, and age as parameters. The creatinine assay has traceable calibration to isotope dilution- mass spectrometry. Refer to KDIGO guidelines for clinical interpretation. In patients with unstable renal function, e.g. those with acute kidney injury, the eGFRmay not accurately reflect actual GFR. eGFR- Date Value Ref Range Status 02/11/2021 52 Final P.O.C.T. RESULTS: N/A June 23, 2022 TREATMENT: N/A IV SITE: Ambulatory: A peripheral IV was started in the Right antecubital site with a Angio cath: 20 gauge. IV SITE APPEARANCE: Clean,Dry and Intact SIGNATURE: Yue Pineda RN PATIENT NAME: Debby Hermosillo DATE: June 23, 2022 TIME: 10:17 AM * Becky Ledezma RT(R) - 06/23/2022 10:15 AM EDT Radiology Service Progress Note PATIENT NAME: Debby Hermosillo DATE OF SERVICE: June 23, 2022 TIME: 10:20 AM PATIENT IDENTITY VERIFICATION COMPLETED USING TWO (2) IDENTIFIERS: Name and Date of confirmedby patient verbally. FALL SCREENING: Has the patient had 2 falls in the last year or 1 fall with injury or currently using an Ambulatory Assistive Device (Walker, Cane, Wheelchair, Crutches, etc.)? No PATIENT GENDER DATA: Female. status: : No status: NO. PATIENT RELEVANT IMPLANT DATA REVIEWED: Not Applicable RADIOLOGY DEPARTMENT: CT; Exam(s) Completed: Chest PERIPHERAL IV DATA: Site assessment: Clean,Dry and Intact, Site disposition Discontinued SIGNED BY: RT Bhavana(R) June 23, 2022 10:20 AM documented in this encounterHarrison [facility]02-22-2023 Hospital Discharge instructions Patient Education 05/04/2022 11:26:21 Dietary Guidelines to Help Prevent Kidney Stones Dietary Guidelines to Help Prevent Kidney Stones Kidney stones are deposits of minerals and salts that form inside your kidneys. Your risk of developing kidney stones may be greater depending on your diet, your lifestyle, the medicines you take, and whether you have certain medical conditions. Most people can reduce their chances of developing kidney stones by following the instructions below. Depending on your overall health and the type of kidney stones you tend to develop, your dietitian may give you more specific instructions. What are tips for following this plan? Reading food labels Choose foods with no salt added or low-salt labels. Limit your sodium intake to less than 1500 mg per day. Choose foods with calcium for each meal and snack. Try to eat about 300 mg of calcium at each meal.Foods that contain 200 500 mg of calcium per serving include: ?8 oz (237 ml) of milk, fortified nondairy milk, and fortified fruit juice. ?8 oz (237 ml) of kefir, yogurt, and soy yogurt. ?4 oz (118 ml) of tofu. ?1 oz of cheese. ?1 cup (300 g) of dried figs. ?1 cup (91 g) of cooked broccoli. ?1 3 oz can of sardines or mackerel. Most people need 1000 to 1500 mg of calcium each day. Talk to your dietitian about how much calciumis recommended for you. Shopping Buy plenty of fresh fruits and vegetables. Most people do not need to avoid fruits and vegetables, even if they contain nutrients that may contribute to kidney stones. When shopping for convenience foods, choose: ?Whole pieces of fruit. ?Premade salads with dressing on the side. ?Low-fat fruit and yogurt smoothies. Avoid buying frozen meals or prepared deli foods. Look for foods with live cultures, such as yogurt and kefir. Cooking Do not add salt to food when cooking. Place a salt shaker on the table and allow each person to addhis or her own salt to taste. Use vegetable protein, such as beans, textured vegetable protein (TVP), or tofu instead of meat in pasta, casseroles, and soups. Meal planning Eat less salt, if told by your dietitian. To do this: ?Avoid eating processed or premade food. ?Avoid eating fast food. Eat less animal protein, including cheese, meat, poultry, or fish, if told by your dietitian. To dothis: ?Limit the number of times you have meat, poultry, fish, or cheese each week. Eat a diet free of meat at least 2 days a week. ?Eat only one serving each day of meat, poultry, fish, or seafood. ?When you prepare animal protein, cut pieces into small portion sizes. For most meat and fish, one serving is about the size of one deck of cards. Eat at least 5 servings of fresh fruits and vegetables each day. To do this: ?Keep fruits and vegetables on hand for snacks. ?Eat 1 piece of fruit or a handful of berries with breakfast. ?Have a salad and fruit at lunch. ?Have two kinds of vegetables at dinner. Limit foods that are high in a substance called oxalate. These include: ?Spinach. ?Rhubarb. ?Beets. ?Potato chips and mal[place] fries. ?Nuts. If you regularly take a diuretic medicine, make sure to eat at least 1 2 fruits or vegetables high in potassium each day. These include: ?Avocado. ?Banana. ?[place], prune, carrot, or tomato juice. ?Baked potato. ?Cabbage. ?Beans and split peas. General instructions Drink enough fluid to keep your urine clear or pale yellow. This is the most important thing you can do. Talk to your health care provider and dietitian about taking daily supplements. Depending on your health and the cause of your kidney stones, you may be advised: ?Not to take supplements with vitamin C. ?To take a calcium supplement. ?To take a daily probiotic supplement. ?To take other supplements such as magnesium, fish oil, or vitamin B6. Take all medicines and supplements as told by your health care provider. Limit alcohol intake to no more than 1 drink a day for non women and 2 drinks a day for men. One drink equals 12 oz of beer, 5 oz of wine, or 1 oz of hard liquor. Lose weight if told by your health care provider. Work with your dietitian to find strategies and an eating plan that works best for you. What foods are not recommended? Limit your intake of the following foods, or as told by your dietitian. Talk to your dietitian about specific foods you should avoid based on the type of kidney stones and your overall health. Grains Breads. Bagels. Rolls. Baked goods. Salted crackers. Cereal. Pasta. Vegetables Spinach. Rhubarb. Beets. Canned vegetables. Pickles. Olives. Meats and other protein foods Nuts. Nut butters. Large portions of meat, poultry, or fish. Salted or cured meats. Deli meats. Hotdogs. Sausages. Dairy Cheese. Beverages Regular soft drinks. Regular vegetable juice. Seasonings and other foods Seasoning blends with salt. Salad dressings. Canned soups. Soy sauce. Ketchup. Barbecue sauce. Canned pasta sauce. Casseroles. Pizza. Lasagna. Frozen meals. Potato chips. Cameroonian fries. Summary You can reduce your risk of kidney stones by making changes to your diet. The most important thing you can do is drink enough fluid. You should drink enough fluid to keep your urine clear or pale yellow. Ask your health care provider or dietitian how much protein from animal sources you should eat eachday, and also how much salt and calcium you should have each day. This information is not intended to replace advice given to you by your health care provider. Make sure you discuss any questions you have with your health care provider. Document Released: 06/24/2011 Document Revised: 06/19/2019 Document Reviewed: 02/07/2017 [employer] Patient Education 2020 [employer] Follow Up Care 04/07/2022 09:22:30 With:MCKENZIE COHEN, JESSIKA Andrade, URL Address: [address] [place], [place] [address]es [facility] [place] [address] When: Unknown [facility] 02-06-2023 Evaluation note* Encounter Date Diagnosis Assessment Notes Treatment Notes Treatment Clinical Notes Apr, Nausea & vomiting (ICD-10 - R11.2) [email or web address] Other 01-26-2023 History of Present illness Narrative* Stacy Adhikari MD - 04/07/2022 10:01 AM EST Images from the original note were not included. PATIENT NAME: Debby Hermosillo CLINIC NO.: [id number] ATTENDING PHYSICIAN: Stacy Adhikari MD DATE OF SERVICE: April 07, 2022 Some of the elements of this note have been copied from my previous progress note dated 09/29/2021. All the information has been reviewed carefully. Dear Dr. Gasper Beaver MD here is an update on a follow up visit on female Debby Hermosillo at the clinic April 07, 2022 Diagnosis: 1. 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 Previously managed by Dr. Beaver Treatment History: 1. Carboplatin and etoposide started March 24, 2017, combined with radiation. Radiotherapy completed May 17, 2017 right upper lobe Patient received a total of 5 cycles of carboplatin and etoposide last on July 12, 2017 Patient was subsequently placed on Imfinzi Per Dr. Beaver and last dose April 09, 2018 and per review of my notes stopped secondary to pancreatitis. HPI: Debby Hermosillo is a 56 year old year old female here for follow up. She feels ok and denies any abdominal pain and or diarrhea. She also has a chronic cough and has allergies off and on PAST MEDICAL HISTORY Diagnosis Date Arthritis Asthma Back pain chronic Carpal tunnel syndrome, bilateral s/p repair - 2016 Current smoker DDD (degenerative disc disease), lumbar GERD (gastroesophageal reflux disease) Neck pain Neuropathy unclear origin- 6 months? saw neurologist (Dr. Hearn- In [facility]); possible MS? Osteoporosis Pneumonia 06/2016 & 12/2016 Small cell lung cancer in adult (HCC) 02/17/2017 Combined small cell carcinoma and squamous cell carcinoma with extensive necrosis Social History Tobacco Use Smoking status: Every Day Packs/day: 0.25 Years: 35.00 Pack years: 8.75 Types: Cigarettes Smokeless tobacco: Never Vaping Use Vaping Use: Never used Substance Use Topics Alcohol use: No Drug use: Yes Frequency: 1.0 times per week Types: Marijuana Comment: previous marijuana FAMILY HISTORY Problem Relation Age of Onset Arthritis Mother Diabetes Mother Cancer Mother bowel, thyroid Hypertension Father other (cabg) Father Cancer Brother colon Cancer Brother colon other (leukemia) Brother Diabetes Sister Diabetes Sister Diabetes Sister Past medical, social and family history reviewed without any changes. REVIEW OF SYSTEMS GENERAL: No weight loss, malaise or fevers. No night sweats. HEENT: Negative for headaches, No changes in hearing or vision, no nose bleeds or other nasal problems. RESPIRATORY: Negative for cough, wheezing and shortness of breath CARDIOVASCULAR: Negative for chest pain, leg swelling and palpitations GI: Negative for abdominal discomfort, blood in stools or black stools and change in bowel habits : Negative for dysuria, frequency and incontinence MUSCULOSKELETAL: Negative for joint pain or swelling, back pain, and muscle pain. SKIN: Negative for lesions, rash, and itching. HEMATOLOGY/LYMPHOLOGY Negative for prolonged bleeding, bruising easily, and swollen nodes. NEURO: Negative for numbness or tingling of hands/feet. No weakness. PHYSICAL EXAMINATION: BP 169/77 Pulse 84 Temp (Src) 97.1 (Temporal) Resp 16 Ht 5' .984 (1.55m) Wt 84 lb 12.8 oz (38.5kg) SpO2 100% BMI 16.03 kg/(m^2). Wt 40.1 kg (88 lb 6.4 oz) BMI 16.71 kg/m2 Last 3 Encounter Wt Readings: Date: Wt: 07/19/2019 40.1 kg (88 lb 6.4 oz) 01/16/2019 40.6 kg (89 lb 6.4 oz) 08/01/2018 42.1 kg (92 lb 12.8 oz) General appearance:ECOG PERFORMANCE STATUS: 0- Fully active, able to carry on all pre-disease performance w/o restriction. Patient in NAD. Skin: Skin color, texture, turgor normal. No rashes or lesions. Eyes: Anicteric sclera. Pupils are equally round and reactive to light. Extraocular movements are intact. Lymph Nodes: No cervical, supraclavicular, axillary or inguinal adenopathy. Oropharynx: Lips, mucosa, and tongue normal. Back: No pain to percussion. Negative SLR test Lungs clear to auscultation, No wheezing or rhonchi Heart: RRR without murmur, gallop, or rubs. Abdomen soft, non-tender. No masses, organomegaly Extremities: No deformities. No edema Neuro: Gait and speech normal. Reflexes normal and symmetric. Muscular strength intact. Sensation grossly intact. Rectal: Deferred : Deferred LABS: Glucose (mg/dL) Date Value 09/14/2021 120 02/11/2021 118 Potassium (mmol/L) Date Value 09/14/2021 3.3 02/11/2021 4.0 Sodium (mmol/L) Date Value 09/14/2021 141 02/11/2021 138 Chloride (mmol/L) Date Value 09/14/2021 108 02/11/2021 104 CO2 (mmol/L) Date Value 09/14/2021 22 02/11/2021 26 Creatinine (mg/dL) Date Value 09/14/2021 0.91 02/11/2021 1.28 BUN (mg/dL) Date Value 09/14/2021 17 02/11/2021 26 Anion Gap (mmol/L) Date Value 09/14/2021 11 02/11/2021 8 Calcium (mg/dL) Date Value 02/11/2021 9.7 Calcium, Total (mg/dL) Date Value 09/14/2021 9.4 Protein, Total (g/dL) Date Value 09/14/2021 6.5 02/11/2021 6.7 02/11/2021 6.4 Albumin (g/dL) Date Value 09/14/2021 4.7 02/11/2021 4.6 Bilirubin, Total (mg/dL) Date Value 09/14/2021 0.2 02/11/2021 <0.2 Alkaline Phosphatase (U/L) Date Value 09/14/2021 80 02/11/2021 67 AST (U/L) Date Value 09/14/2021 12 02/11/2021 11 ALT (U/L) Date Value 09/14/2021 8 02/11/2021 5 WBC Date Value Ref Range Status 04/07/2022 5.55 3.70 - 11.00 k/uL Final RBC Date Value Ref Range Status 04/07/2022 3.31 (L) 3.90 - 5.20 m/uL Final Hemoglobin Date Value Ref Range Status 04/07/2022 12.1 11.5 - 15.5 g/dL Final Hematocrit Date Value Ref Range Status 04/07/2022 36.2 36.0 - 46.0 % Final MCV Date Value Ref Range Status 04/07/2022 109.4 (H) 80.0 - 100.0 fL Final MCH Date Value Ref Range Status 04/07/2022 36.6 (H) 26.0 - 34.0 pg Final MCHC Date Value Ref Range Status 04/07/2022 33.4 30.5 - 36.0 g/dL Final RDW-CV Date Value Ref Range Status 04/07/2022 12.7 11.5 - 15.0 % Final Platelet Count Date Value Ref Range Status 04/07/2022 156 150 - 400 k/uL Final MPV Date Value Ref Range Status 04/07/2022 9.0 9.0 - 12.7 fL Final Abs Neut Date Value Ref Range Status 04/07/2022 2.85 1.45 - 7.50 k/uL Final Lymph% Date Value Ref Range Status 04/07/2022 27.2 % Final Abs Lymph Date Value Ref Range Status 04/07/2022 1.51 1.00 - 4.00 k/uL Final [place]% Date Value Ref Range Status 04/07/2022 13.3 % Final Abs [place] Date Value Ref Range Status 04/07/2022 0.74 <0.87 k/uL Final Eosin% Date Value Ref Range Status 04/07/2022 7.0 % Final Abs Eosin Date Value Ref Range Status 04/07/2022 0.39 <0.46 k/uL Final Baso% Date Value Ref Range Status 04/07/2022 0.7 % Final Abs Baso Date Value Ref Range Status 04/07/2022 0.04 <0.11 k/uL Final PATH: Saúl biopsy February 2017: Right lung, upper lobe nodule, endobronchial biopsy 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 Imaging: PET scan July 18, 2019: 1. NECK: * NO FDG AVID NEOPLASTIC PROCESS.. 2. CHEST: * NO FDG AVID NEOPLASTIC PROCESS. * 1.4 X 0.9 CM HYPOMETABOLIC RIGHT UPPER LOBE NODULE WITH ADJACENT PARENCHYMAL SCARRING LATERALLY, IMPROVED SINCE 01/09/2019. FINDINGS ARE COMPATIBLE WITH SATISFACTORY RESPONSE OF TREATED RIGHT UPPER LOBE NODULE POST CHEMORADIATION. * 0.6 CM AND 0.4 CM FAINT RIGHT MIDDLE LOBE GROUNDGLASS ATTENUATION DENSITIES, STABLE SINCE 09/12/2017. 3. ABDOMEN/PELVIS: * NO FDG AVID NEOPLASTIC PROCESS. . 4. EXTREMITIES/SKELETON: * NO SUSPICIOUS FDG AVID OSSEOUS LESION. CT of the chest with contrast January 20, 2020: 1. Interval decrease in size of right upper lobe nodular opacity, now measuring 1.5 cm in size. 2. Slight interval increase in surrounding groundglass and reticular opacities, likely on the basis of posttreatment change. 3. No evidence of bulky intrathoracic lymphadenopathy. CT scan of the chest August 12, 2020: 1. No interval change since 01/17/2020. 2. 1.3 x 0.7 cm right upper lobe nodular opacity, most likely the known primary neoplasm, stable 3. Adjacent right upper lobe patchy opacities most likely related to post radiation change or other infectious/inflammatory etiologies, stable. 4. Other small subcentimeter groundglass opacities in the right lung, stable. CT of the Chest 02/2021: 1. Right upper lobe post radiation change, increased since 08/07/20, now obscuring the previously described reticulonodular opacity. 2. Other small subcentimeter groundglass opacities in the right lung, Stable. MRI Brain 02/2021: CT Chest 08/2021: 1. Mild patchy airspace opacification within the lingula, favored to be infectious/inflammation. Continued attention on subsequent studies is suggested. 2. Since 02/25/2021, unchanged groundglass opacities within the right middle lobe measuring up to 0.5 cm. 3. 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 4. Unchanged moderate intrahepatic biliary ductal dilatation. MRI Brain 09/2021: CT Scan of the Chest and Abdomen and Pelvis 03/2022: 1. Interval development of a new 5 mm nodule in the right lower lobe. This may be infectious/inflammatory or neoplastic in nature. Recommend continued attention to this area on follow-up exams. 2. Stable appearance of 6 mm groundglass opacity in the right middle lobe. An additional 4 mm groundglass opacity more inferiorly in the right middle lobe appears slightly less conspicuous when compared to prior study. 3. Stable bandlike and nodular consolidative opacity in the right upper lobe and right suprahilar region, in keeping with postradiation fibrosis. 1. No evidence of metastatic disease in the abdomen or pelvis. 2. Moderate biliary ductal dilation, similar in appearance to prior CT chest, but new when compared to prior PET/CT. No obstructing calculus or mass is visualized. 3. Nonobstructive nephrolithiasis in the right kidney. Assessment and Plan: Debby Hermosillo is a 56 year old year old female here for follow up. 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 03/2022 with a new RLL 5 mm nodule. Nausea- Better She has reduced smoking and I encouraged that as well. See back in [address] of the chest Thank you for the kind referral. If there are any questions and or concerns please do not hesitate to contact me at [phone]. Stacy Adhikari MD Hematology/Medical Oncology [facility] CC: Milton Madison MD I spent a total of 30 minutes on the date of the service which included preparing to see the patient, [id number] patient care, completing clinical documentation, obtaining and/or reviewing separately obtained history, performing a medically appropriate examination, counseling and educating the pat ient/family/caregiver and ordering medications, tests, or procedures. documented in this encounterH[facility]01-18-2023 History of Present illness Narrative* Angella Malloy RN - 03/30/2022 10:45 AM EST Radiology Service Progress Note DATE OF SERVICE: March 30, 2022 TIME: 10:46 AM PATIENT WEIGHT: 83 LBS PATIENT IDENTITY VERIFICATION COMPLETED USING TWO (2) STANDARD IDENTIFIERS: Name and Date of confirmed by patient verbally. FALL SCREENING: Has the patient had 2 falls in the last year or 1 fall with injury or currently using an Ambulatory Assistive Device (Walker, Cane, Wheelchair, Crutches, etc.)? No PATIENT GENDER DATA: Female. status: : No status: NO. ALLERGIES: Reviewed and unchanged CONTRAST ALLERGY: No EXAM: CT -CONTRAST INDUCED NEPHROPATHY RISK FACTORS: Not applicable CREATININE: Creatinine Date Value Ref Range Status 09/14/2021 0.91 0.58 - 0.96 mg/dL Final 02/11/2021 1.28 (H) 0.58 - 0.96 mg/dL Final 07/24/2020 0.73 0.58 - 0.96 mg/dL Final Estimated Glomerular Filtration Rate Date Value Ref Range Status 09/14/2021 73 >=60 mL/min/1.73m Final Comment: Estimated Glomerular Filtration Rate (eGFR) is calculated using the 2020 CKD-EPI creatinine equation. This equation utilizes serum creatinine, sex, and age as parameters. The creatinine assay has traceable calibration to isotope dilution- mass spectrometry. Refer to KDIGO guidelines for clinical interpretation. In patients with unstable renal function, e.g. those with acute kidney injury, the eGFRmay not accurately reflect actual GFR. eGFR- Date Value Ref Range Status 02/11/2021 52 Final P.O.C.T. RESULTS: N/A March 30, 2022 TREATMENT: N/A IV SITE: Ambulatory: A peripheral IV was started in the Right antecubital site with a Angio cath: 20 gauge. IV SITE APPEARANCE: Clean,Dry and Intact SIGNATURE: Angella Malloy RN PATIENT NAME: Debby Hermosillo DATE: March 30, 2022 TIME: 10:46 AM * Becky Ledezma RT(R) - 03/30/2022 10:45 AM EST Radiology Service Progress Note PATIENT NAME: Debby Hermosillo DATE OF SERVICE: March 30, 2022 TIME: 11:14 AM PATIENT IDENTITY VERIFICATION COMPLETED USING TWO (2) IDENTIFIERS: Name and Date of confirmedby patient verbally. FALL SCREENING: Has the patient had 2 falls in the last year or 1 fall with injury or currently using an Ambulatory Assistive Device (Walker, Cane, Wheelchair, Crutches, etc.)? No PATIENT GENDER DATA: Female. status: : No status: NO. PATIENT RELEVANT IMPLANT DATA REVIEWED: Not Applicable RADIOLOGY DEPARTMENT: CT; Exam(s) Completed: Chest Abdomen Pelvis With IV and Oral contrast PERIPHERAL IV DATA: Site assessment: Clean,Dry and Intact, Site disposition Discontinued SIGNED BY: RT Bhavana(R) March 30, 2022 11:14 AM documented in this encounterHarrison [facility]01-12-2023 Miscellaneous Notes* Telephone Encounter - Mila Briscoe RN - 03/24/2022 10:30 AM EST Call placed to pt who is agreeable to calling and rescheduling an appointment with urology. Explained the importance of this and pt verbalized understanding. Mila Briscoe RN * Telephone Encounter - Noemí Jolley PA-C - 03/24/2022 9:30 AM EST Please call patient and advise that we tecommend she reschedule and keep an appointment with urology due to her recurrent UTIs Noemí * Telephone Encounter - Yudi Chapa - 03/24/2022 7:35 AM EST Called [facility] spoke with Shelbi. She states patient was scheduled with their office on 02/23 and no-showed and scheduled on 03/16 to which she called and cancelled. Yudi Guerrero Pss documented in this encounterHarrison [facility] Hospital12-13-2022 Miscellaneous Notes* Telephone Encounter - Stacy Adhikari MD - 02/22/2022 5:32 PM EST Nystatin documented in this encounterHarrison [facility] Hospital09-22-2022 Miscellaneous Notes* Telephone Encounter - Angella Malloy RN - 12/02/2021 10:52 AM EDT Pt aware RX sent to [facility]. Encouraged to call for any additional needs or concerns. Angella Malloy RN * Telephone Encounter - Angella Malloy RN - 12/02/2021 8:19 AM EDT Pt sent a My Chart message requesting thrush medication as previously prescribed. Her note is included below. PUJA/JOSÉ MANUEL: I have pended a Nystatin as Rx'd in October. Please review and sign. Thank you, ALLYSSA Humphrey Dr I am getting thrush again, I started noticing when I got up today but tonight it hurts more and looks worse. Can I please get that medicine again? Can t eat much. Thank you so much, Debby hermosillo documented in this encounterHarrison [facility] Hospital07-25-2022 Miscellaneous Notes* Telephone Encounter - Mila Briscoe RN - 10/04/2021 1:45 PM EDT Pt has reviewed her negative covid results on my chart Mila Briscoe RN * Telephone Encounter - Mila Briscoe RN - 10/04/2021 1:45 PM EDT ----- Message from Stacy Adhikari MD sent at 10/02/2021 10:28 AM EDT ----- Call with results documented in this encounterHarrison [facility] Hospital07-25-2022 Miscellaneous Notes* Telephone Encounter - Yudi Guerrero Pss - 10/04/2021 8:32 AM EDT Called [facility] spoke with Alissa. Patient is scheduled 11/10 @ 1:[address] Mejias at their [place] office. Yudi Guerrero Pss * Telephone Encounter - Jessika Muse [facility] - 09/30/2021 7:53 AM EDT Records faxed to [facility]. * Telephone Encounter - Yudi Guerrero Pss - 09/29/2021 1:53 PM EDT [facility]: Information ready for you. Yudi Guerrero Pss * Telephone Encounter - Briseyda Ewing - 09/29/2021 1:50 PM EDT Patient to be referred to Neurology. Patient's preference is to stay local with [facility]. Racheal/Ubaldo: Can you please send information and follow up? Thank you! Briseydachema Ewing documented in this encounterHarrison [facility] Hospital07-21-2022 Miscellaneous Notes* Telephone Encounter - Mila Briscoe RN - 09/30/2021 5:17 PM EDT Order faxed to [facility] Mila Briscoe, RN documented in this encounterHarrison [facility] Hospital07-20-2022 History of Present illness Narrative* Stacy Adhikari MD - 09/29/2021 1:29 PM EDT Images from the original note were not included. PATIENT NAME: Debby Hermosillo CLINIC NO.: [id number] ATTENDING PHYSICIAN: Stacy Adhikari MD DATE OF SERVICE: September 29, 2021 Some of the elements of this note have been copied from my previous progress note dated 03/09/2021.All the information has been reviewed carefully. Dear Dr. Gasper Beaver MD here is an update on a follow up visit on female Debby Hermosillo at the clinic September 29, 2021 Diagnosis: 1. 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 Previously managed by Dr. Beaver Treatment History: 1. Carboplatin and etoposide started March 24, 2017, combined with radiation. Radiotherapy completed May 17, 2017 right upper lobe Patient received a total of 5 cycles of carboplatin and etoposide last on July 12, 2017 Patient was subsequently placed on Imfinzi Per Dr. Beaver and last dose April 09, 2018 and per review of my notes stopped secondary to pancreatitis. HPI: Debby Hermosillo is a 56 year old year old female here for follow up. She states that her abdominal symptoms have improved on Carafate. Also states that for the past fewmonths she has had memory challenges and does not recall something's. Denies any HUGHES and or neuropathy and also denies any worsening SOB and would like to quit smoking and requested nicotine patches PAST MEDICAL HISTORY Diagnosis Date Arthritis Asthma Back pain chronic Carpal tunnel syndrome, bilateral s/p repair - 2016 Current smoker DDD (degenerative disc disease), lumbar GERD (gastroesophageal reflux disease) Neck pain Neuropathy unclear origin- 6 months? saw neurologist (Dr. Hearn- In [facility]); possible MS? Osteoporosis Pneumonia 06/2016 & 12/2016 Small cell lung cancer in adult (HCC) 02/17/2017 Combined small cell carcinoma and squamous cell carcinoma with extensive necrosis Social History Tobacco Use Smoking status: Current Every Day Smoker Packs/day: 1.50 Years: 35.00 Pack years: 52.50 Types: Cigarettes Smokeless tobacco: Never Used Vaping Use Vaping Use: Never used Substance Use Topics Alcohol use: No Drug use: Yes Frequency: 1.0 times per week Types: Marijuana Comment: previous marijuana FAMILY HISTORY Problem Relation Age of Onset Arthritis Mother Diabetes Mother Cancer Mother bowel, thyroid Hypertension Father other (cabg) Father Cancer Brother colon Cancer Brother colon other (leukemia) Brother Diabetes Sister Diabetes Sister Diabetes Sister Past medical, social and family history reviewed without any changes. REVIEW OF SYSTEMS GENERAL: No weight loss, malaise or fevers. No night sweats. HEENT: Negative for headaches, No changes in hearing or vision, no nose bleeds or other nasal problems. RESPIRATORY: Negative for cough, wheezing and shortness of breath CARDIOVASCULAR: Negative for chest pain, leg swelling and palpitations GI: Negative for abdominal discomfort, blood in stools or black stools and change in bowel habits : Negative for dysuria, frequency and incontinence MUSCULOSKELETAL: Negative for joint pain or swelling, back pain, and muscle pain. SKIN: Negative for lesions, rash, and itching. HEMATOLOGY/LYMPHOLOGY Negative for prolonged bleeding, bruising easily, and swollen nodes. NEURO: Negative for numbness or tingling of hands/feet. No weakness. PHYSICAL EXAMINATION: BP 154/69 Pulse 95 Temp (Src) 97.3 (Temporal) Resp 16 Ht 5' .984 (1.55m) Wt 80 lb 6.4 oz(36.5kg) SpO2 100% BMI 15.20 kg/(m^2). Wt 40.1 kg (88 lb 6.4 oz) BMI 16.71 kg/m2 Last 3 Encounter Wt Readings: Date: Wt: 07/19/2019 40.1 kg (88 lb 6.4 oz) 01/16/2019 40.6 kg (89 lb 6.4 oz) 08/01/2018 42.1 kg (92 lb 12.8 oz) General appearance:ECOG PERFORMANCE STATUS: 0- Fully active, able to carry on all pre-disease performance w/o restriction. Patient in NAD. Skin: Skin color, texture, turgor normal. No rashes or lesions. Eyes: Anicteric sclera. Pupils are equally round and reactive to light. Extraocular movements are intact. Lymph Nodes: No cervical, supraclavicular, axillary or inguinal adenopathy. Oropharynx: Lips, mucosa, and tongue normal. Back: No pain to percussion. Negative SLR test Lungs clear to auscultation, No wheezing or rhonchi Heart: RRR without murmur, gallop, or rubs. Abdomen soft, non-tender. No masses, organomegaly Extremities: No deformities. No edema Neuro: Gait and speech normal. Reflexes normal and symmetric. Muscular strength intact. Sensation grossly intact. Rectal: Deferred : Deferred LABS: Glucose (mg/dL) Date Value 09/14/2021 120 02/11/2021 118 Potassium (mmol/L) Date Value 09/14/2021 3.3 02/11/2021 4.0 Sodium (mmol/L) Date Value 09/14/2021 141 02/11/2021 138 Chloride (mmol/L) Date Value 09/14/2021 108 02/11/2021 104 CO2 (mmol/L) Date Value 09/14/2021 22 02/11/2021 26 Creatinine (mg/dL) Date Value 09/14/2021 0.91 02/11/2021 1.28 BUN (mg/dL) Date Value 09/14/2021 17 02/11/2021 26 Anion Gap (mmol/L) Date Value 09/14/2021 11 02/11/2021 8 Calcium (mg/dL) Date Value 02/11/2021 9.7 Calcium, Total (mg/dL) Date Value 09/14/2021 9.4 Protein, Total (g/dL) Date Value 09/14/2021 6.5 02/11/2021 6.7 02/11/2021 6.4 Albumin (g/dL) Date Value 09/14/2021 4.7 02/11/2021 4.6 Bilirubin, Total (mg/dL) Date Value 09/14/2021 0.2 02/11/2021 <0.2 Alkaline Phosphatase (U/L) Date Value 09/14/2021 80 02/11/2021 67 AST (U/L) Date Value 09/14/2021 12 02/11/2021 11 ALT (U/L) Date Value 09/14/2021 8 02/11/2021 5 WBC Date Value Ref Range Status 09/14/2021 6.31 3.70 - 11.00 k/uL Final RBC Date Value Ref Range Status 09/14/2021 3.44 (L) 3.90 - 5.20 m/uL Final Hemoglobin Date Value Ref Range Status 09/14/2021 12.8 11.5 - 15.5 g/dL Final Hematocrit Date Value Ref Range Status 09/14/2021 36.7 36.0 - 46.0 % Final MCV Date Value Ref Range Status 09/14/2021 106.7 (H) 80.0 - 100.0 fL Final MCH Date Value Ref Range Status 09/14/2021 37.2 (H) 26.0 - 34.0 pg Final MCHC Date Value Ref Range Status 09/14/2021 34.9 30.5 - 36.0 g/dL Final RDW-CV Date Value Ref Range Status 09/14/2021 12.8 11.5 - 15.0 % Final Platelet Count Date Value Ref Range Status 09/14/2021 166 150 - 400 k/uL Final MPV Date Value Ref Range Status 09/14/2021 8.9 (L) 9.0 - 12.7 fL Final Abs Neut Date Value Ref Range Status 09/14/2021 3.47 1.45 - 7.50 k/uL Final Lymph% Date Value Ref Range Status 09/14/2021 32.3 % Final Abs Lymph Date Value Ref Range Status 09/14/2021 2.04 1.00 - 4.00 k/uL Final [place]% Date Value Ref Range Status 09/14/2021 10.0 % Final Abs [place] Date Value Ref Range Status 09/14/2021 0.63 <0.87 k/uL Final Eosin% Date Value Ref Range Status 09/14/2021 1.6 % Final Abs Eosin Date Value Ref Range Status 09/14/2021 0.10 <0.46 k/uL Final Baso% Date Value Ref Range Status 09/14/2021 0.5 % Final Abs Baso Date Value Ref Range Status 09/14/2021 0.03 <0.11 k/uL Final PATH: Saúl biopsy February 2017: Right lung, upper lobe nodule, endobronchial biopsy 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 Imaging: PET scan July 18, 2019: 1. NECK: * NO FDG AVID NEOPLASTIC PROCESS.. 2. CHEST: * NO FDG AVID NEOPLASTIC PROCESS. * 1.4 X 0.9 CM HYPOMETABOLIC RIGHT UPPER LOBE NODULE WITH ADJACENT PARENCHYMAL SCARRING LATERALLY, IMPROVED SINCE 01/09/2019. FINDINGS ARE COMPATIBLE WITH SATISFACTORY RESPONSE OF TREATED RIGHT UPPER LOBE NODULE POST CHEMORADIATION. * 0.6 CM AND 0.4 CM FAINT RIGHT MIDDLE LOBE GROUNDGLASS ATTENUATION DENSITIES, STABLE SINCE 09/12/2017. 3. ABDOMEN/PELVIS: * NO FDG AVID NEOPLASTIC PROCESS. . 4. EXTREMITIES/SKELETON: * NO SUSPICIOUS FDG AVID OSSEOUS LESION. CT of the chest with contrast January 20, 2020: 1. Interval decrease in size of right upper lobe nodular opacity, now measuring 1.5 cm in size. 2. Slight interval increase in surrounding groundglass and reticular opacities, likely on the basis of posttreatment change. 3. No evidence of bulky intrathoracic lymphadenopathy. CT scan of the chest August 12, 2020: 1. No interval change since 01/17/2020. 2. 1.3 x 0.7 cm right upper lobe nodular opacity, most likely the known primary neoplasm, stable 3. Adjacent right upper lobe patchy opacities most likely related to post radiation change or other infectious/inflammatory etiologies, stable. 4. Other small subcentimeter groundglass opacities in the right lung, stable. CT of the Chest 02/2021: 1. Right upper lobe post radiation change, increased since 08/07/20, now obscuring the previously described reticulonodular opacity. 2. Other small subcentimeter groundglass opacities in the right lung, Stable. MRI Brain 02/2021: CT Chest 08/2021: 1. Mild patchy airspace opacification within the lingula, favored to be infectious/inflammation. Continued attention on subsequent studies is suggested. 2. Since 02/25/2021, unchanged groundglass opacities within the right middle lobe measuring up to 0.5 cm. 3. 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 4. Unchanged moderate intrahepatic biliary ductal dilatation. MRI Brain 09/2021: Assessment and Plan: Debby Hermosillo is a 56 year old year old female here for follow up. 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 Beaver. Most recent imaging studies does not show any evidence of progression of disease. Patient is clinically doing well. Her Brain MRI also negative except for a small focus of possible acute CVA She also having memory issues and with the recent MRI will refer to neurology Persistent Nausea- Better on Carafate We'll see patient back in 6 months for follow-up and repeat Chest CT Nicotine patch prescribed as well. Thank you for the kind referral. If there are any questions and or concerns please do not hesitate to contact me at [phone]. Stacy Adhikari MD Hematology/Medical Oncology [facility] CC: Milton Madison MD I spent a total of 25 minutes on the date of the service which included preparing to see the patient, [id number] patient care, completing clinical documentation, obtaining and/or reviewing separately obtained history, performing a medically appropriate examination, counseling and educating the pat ient/family/caregiver and ordering medications, tests, or procedures. documented in this encounterH[facility]07-14-[facility]22 Evaluation note* Encounter Date Diagnosis Assessment Notes Treatment Notes Treatment Clinical Notes Sep, Chronic superficial gastritis without bleeding (ICD-10 - K29.30) Sep, Primary malignant neoplasm of lung metastatic to other site, unspecified laterality (ICD-10 - C34.90) Sep, Cachexia (ICD-10 - R64) Sep, Weight loss (ICD-10 - R63.4) Start Sucralfate susp four times a day Pt to call if symptoms worsen or do not improve Sep, Nausea & vomiting (ICD-10 - R11.2) Continue [facility] Other 07-07-2022 Miscellaneous Notes* Telephone Encounter - Briseyda Ewing - 09/16/2021 1:36 PM EDT Patient has been scheduled with FABRIZIO Hereida with Urology on Monday, 09/21. Pam at Dr. Blackburn's office is going to reach out to the patient for an appointment. Briseyda Ewing * Telephone Encounter - Briseyda Ewing - 09/14/2021 3:58 PM EDT Sent referral to [facility] for referral. Sent information for an appointment for Dr. Blackburn regarding weight loss and worsening nausea. Patient is established. Briseyda Ewing documented in this encounterH[facility]07-05-2022 History of Present illness Narrative* Noemí Jolley PA-C - 09/14/2021 2:30 PM EDT Images from the original note were not included. PATIENT NAME: Debby Gann [facility] NO.: [id number] ATTENDING PHYSICIAN: Stacy Adhikari MD DATE OF SERVICE: September 14, 2021 (Elements copied from Dr. Mariscal's note dated March 09, 2022, have been reviewed and updated where appropriate, and all reflect current assessment and medical decision making during today's encounter, September 14, 2021) CC: 6 month check up Diagnosis: 1. 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 Previously managed by Dr. Beaver Treatment History: 1. Carboplatin and etoposide started March 24, 2017, combined with radiation. Radiotherapy completed May 17, 2017 right upper lobe Patient received a total of 5 cycles of carboplatin and etoposide last on July 12, 2017 Patient was subsequently placed on Imfinzi Per Dr. Beaver and last dose April 09, 2018 and per review of my notes stopped secondary to pancreatitis. HPI: Debby returns for follow up. She is very teary today because she has lost more weight. She has not been hungry for a few weeks or a month and has her ongoing nausea. Last saw Bere 3 months ago. Hesaid if worsens, then will need EGD. She doesn't have a current follow up. She has also had more headaches the last few weeks. No vision changes or ataxia. Otherwise, doing well. Breathing is good. UTI resolved but she is concerned because she gets them frequently. She explains that she gets them a few times a year. Her PCP has left the state and she does not have a new PCP to call. PAST MEDICAL HISTORY Diagnosis Date Arthritis Asthma Back pain chronic Carpal tunnel syndrome, bilateral s/p repair - 2016 Current smoker DDD (degenerative disc disease), lumbar GERD (gastroesophageal reflux disease) Neck pain Neuropathy unclear origin- 6 months? saw neurologist (Dr. Hearn- In [facility]); possible MS? Osteoporosis Pneumonia 06/2016 & 12/2016 Small cell lung cancer in adult (HCC) 02/17/2017 Combined small cell carcinoma and squamous cell carcinoma with extensive necrosis Social History Tobacco Use Smoking status: Current Every Day Smoker Packs/day: 1.50 Years: 35.00 Pack years: 52.50 Types: Cigarettes Smokeless tobacco: Never Used Vaping Use Vaping Use: Never used Substance Use Topics Alcohol use: No Drug use: Yes Frequency: 1.0 times per week Types: Marijuana Comment: previous marijuana FAMILY HISTORY Problem Relation Age of Onset Arthritis Mother Diabetes Mother Cancer Mother bowel, thyroid Hypertension Father other (cabg) Father Cancer Brother colon Cancer Brother colon other (leukemia) Brother Diabetes Sister Diabetes Sister Diabetes Sister Past medical, social and family history reviewed without any changes. REVIEW OF SYSTEMS GENERAL: No weight loss, malaise or fevers. No night sweats. HEENT: Negative for headaches, No changes in hearing or vision, no nose bleeds or other nasal problems. RESPIRATORY: Negative for cough, wheezing and shortness of breath CARDIOVASCULAR: Negative for chest pain, leg swelling and palpitations GI: Negative for abdominal discomfort, blood in stools or black stools and change in bowel habits : Negative for dysuria, frequency and incontinence MUSCULOSKELETAL: Negative for joint pain or swelling, back pain, and muscle pain. SKIN: Negative for lesions, rash, and itching. HEMATOLOGY/LYMPHOLOGY Negative for prolonged bleeding, bruising easily, and swollen nodes. NEURO: Negative for numbness or tingling of hands/feet. No weakness. PHYSICAL EXAMINATION: BP 143/78 Pulse 89 Temp (Src) 97.1 (Temporal) Resp 16 Ht 5' .984 (1.55m) Wt 79 lb (35.8kg) SpO2 98% BMI 14.93 kg/(m^2). ECOG PERFORMANCE STATUS: 0- Fully active, able to carry on all pre-disease performance w/o restriction. General: Alert and oriented, no distress, pleasant and cooperative. Heart: Regular, normal S1 and S2, no murmurs, rubs, or gallops Lungs: Clear to auscultation bilaterally Abdomen: Benign Extremities: Feet/ankles without edema, posterior tibial pulses full and symmetrical Neuro: CN 2-12 intact LABS: Glucose (mg/dL) Date Value 09/14/2021 120 02/11/2021 118 Potassium (mmol/L) Date Value 09/14/2021 3.3 02/11/2021 4.0 Sodium (mmol/L) Date Value 09/14/2021 141 02/11/2021 138 Chloride (mmol/L) Date Value 09/14/2021 108 02/11/2021 104 CO2 (mmol/L) Date Value 09/14/2021 22 02/11/2021 26 Creatinine (mg/dL) Date Value 09/14/2021 0.91 02/11/2021 1.28 BUN (mg/dL) Date Value 09/14/2021 17 02/11/2021 26 Anion Gap (mmol/L) Date Value 09/14/2021 11 02/11/2021 8 Calcium (mg/dL) Date Value 02/11/2021 9.7 Calcium, Total (mg/dL) Date Value 09/14/2021 9.4 Protein, Total (g/dL) Date Value 09/14/2021 6.5 02/11/2021 6.7 02/11/2021 6.4 Albumin (g/dL) Date Value 09/14/2021 4.7 02/11/2021 4.6 Bilirubin, Total (mg/dL) Date Value 09/14/2021 0.2 02/11/2021 <0.2 Alkaline Phosphatase (U/L) Date Value 09/14/2021 80 02/11/2021 67 AST (U/L) Date Value 09/14/2021 12 02/11/2021 11 ALT (U/L) Date Value 09/14/2021 8 02/11/2021 5 WBC Date Value Ref Range Status 09/14/2021 6.31 3.70 - 11.00 k/uL Final RBC Date Value Ref Range Status 09/14/2021 3.44 (L) 3.90 - 5.20 m/uL Final Hemoglobin Date Value Ref Range Status 09/14/2021 12.8 11.5 - 15.5 g/dL Final Hematocrit Date Value Ref Range Status 09/14/2021 36.7 36.0 - 46.0 % Final MCV Date Value Ref Range Status 09/14/2021 106.7 (H) 80.0 - 100.0 fL Final MCH Date Value Ref Range Status 09/14/2021 37.2 (H) 26.0 - 34.0 pg Final MCHC Date Value Ref Range Status 09/14/2021 34.9 30.5 - 36.0 g/dL Final RDW-CV Date Value Ref Range Status 09/14/2021 12.8 11.5 - 15.0 % Final Platelet Count Date Value Ref Range Status 09/14/2021 166 150 - 400 k/uL Final MPV Date Value Ref Range Status 09/14/2021 8.9 (L) 9.0 - 12.7 fL Final Abs Neut Date Value Ref Range Status 09/14/2021 3.47 1.45 - 7.50 k/uL Final Lymph% Date Value Ref Range Status 09/14/2021 32.3 % Final Abs Lymph Date Value Ref Range Status 09/14/2021 2.04 1.00 - 4.00 k/uL Final [place]% Date Value Ref Range Status 09/14/2021 10.0 % Final Abs [place] Date Value Ref Range Status 09/14/2021 0.63 <0.87 k/uL Final Eosin% Date Value Ref Range Status 09/14/2021 1.6 % Final Abs Eosin Date Value Ref Range Status 09/14/2021 0.10 <0.46 k/uL Final Baso% Date Value Ref Range Status 09/14/2021 0.5 % Final Abs Baso Date Value Ref Range Status 09/14/2021 0.03 <0.11 k/uL Final PATH: Saúl biopsy February 2017: Right lung, upper lobe nodule, endobronchial biopsy 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 Imaging: PET scan July 18, 2019: 1. NECK: * NO FDG AVID NEOPLASTIC PROCESS.. 2. CHEST: * NO FDG AVID NEOPLASTIC PROCESS. * 1.4 X 0.9 CM HYPOMETABOLIC RIGHT UPPER LOBE NODULE WITH ADJACENT PARENCHYMAL SCARRING LATERALLY, IMPROVED SINCE 01/09/2019. FINDINGS ARE COMPATIBLE WITH SATISFACTORY RESPONSE OF TREATED RIGHT UPPER LOBE NODULE POST CHEMORADIATION. * 0.6 CM AND 0.4 CM FAINT RIGHT MIDDLE LOBE GROUNDGLASS ATTENUATION DENSITIES, STABLE SINCE 09/12/2017. 3. ABDOMEN/PELVIS: * NO FDG AVID NEOPLASTIC PROCESS. . 4. EXTREMITIES/SKELETON: * NO SUSPICIOUS FDG AVID OSSEOUS LESION. CT of the chest with contrast January 20, 2020: 1. Interval decrease in size of right upper lobe nodular opacity, now measuring 1.5 cm in size. 2. Slight interval increase in surrounding groundglass and reticular opacities, likely on the basis of posttreatment change. 3. No evidence of bulky intrathoracic lymphadenopathy. CT scan of the chest August 12, 2020: 1. No interval change since 01/17/2020. 2. 1.3 x 0.7 cm right upper lobe nodular opacity, most likely the known primary neoplasm, stable 3. Adjacent right upper lobe patchy opacities most likely related to post radiation change or other infectious/inflammatory etiologies, stable. 4. Other small subcentimeter groundglass opacities in the right lung, stable. CT of the Chest 02/2021: 1. Right upper lobe post radiation change, increased since 08/07/20, now obscuring the previously described reticulonodular opacity. 2. Other small subcentimeter groundglass opacities in the right lung, Stable. MRI Brain 02/2021: CT chest 09/07/2021 1. Mild patchy airspace opacification within the lingula, favored to be infectious/inflammation. Continued attention on subsequent studies is suggested. 2. Since 02/25/2021, unchanged groundglass opacities within the right middle lobe measuring up to 0.5 cm. 3. 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 4. Unchanged moderate intrahepatic biliary ductal dilatation. Assessment and Plan: Debby Hermosillo is a 55 year old year old female here for follow up. 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 Beaver. Latest CT chest without progression. Now with weight loss, ongoing nausea and headaches. Recommended MRI brain and appointment with GI for EGD as she does have a history of ulcers. Will see her back in 2 weeks for follow up. Her next CT chest will be in 6 months. She also had frequent UTIs and would like to see urology and I will send a referral for that as well. She will follow up with our section [employer] w[employer] for her weight loss as well. Noemí Jolley PA-C documented in this encounterH[facility]07-05-2022 Nurse Note* Jessie Dill MA - 09/14/2021 2:24 PM EDT Patient states that her weight loss has been effecting her, she was not feeling well recently but is now.Jessie Dill MA documented in this encounterH[facility]07-01-2022 Miscellaneous Notes* Telephone Encounter - Becky Olivares RN - 09/10/2021 11:18 AM EDT Pt notified and verbalizes understanding. Becky Olivares RN * Telephone Encounter - Becky Olivares RN - 09/10/2021 8:56 AM EDT Call placed to pt. No answer. Message left requesting call back. Becky Olivares RN * Telephone Encounter - Becky Olivares RN - 09/10/2021 8:56 AM EDT ----- Message from Stacy Adhikari MD sent at 09/09/2021 7:07 PM EDT ----- Regarding: Stable CT Please let her know that her CT does not show any progresion,. Thanks documented in this encounterH[facility]2022 History of Present illness Narrative* Angella Malloy RN - 09/07/2021 10:15 AM EDT Radiology Service Progress Note DATE OF SERVICE: September 07, 2021 TIME: 10:29 AM PATIENT WEIGHT: 81 LBS PATIENT IDENTITY VERIFICATION COMPLETED USING TWO (2) STANDARD IDENTIFIERS: Name and Date of confirmed by patient verbally. FALL SCREENING: Has the patient had 2 falls in the last year or 1 fall with injury or currently using an Ambulatory Assistive Device (Walker, Cane, Wheelchair, Crutches, etc.)? No PATIENT GENDER DATA: Female. status: : No status: NO. ALLERGIES: Reviewed and unchanged CONTRAST ALLERGY: No EXAM: CT -CONTRAST INDUCED NEPHROPATHY RISK FACTORS: Not applicable CREATININE: Creatinine Date Value Ref Range Status 02/11/2021 1.28 (H) 0.58 - 0.96 mg/dL Final 07/24/2020 0.73 0.58 - 0.96 mg/dL Final 01/17/2020 0.78 0.58 - 0.96 mg/dL Final eGFR-All Other Races Date Value Ref Range Status 02/11/2021 43 . Final Comment: eGFR (Estimated GFR) Units of measure: mL/min/1.73 meters squared eGFR is derived from the reexpressed MDRD Study equation using the following parameters: serum creatinine, age, gender and race. The creatinine assay has been calibrated to be traceable to IDMS. An eGFR <60 mL/min/1.73m2 for >3 months is consistent with chronic kidney disease. Refer to KDOQI guidelines for clinical interpretation. In patients with unstable renal function, e.g. those with acute kidney injury, the eGFR may not accurately reflect actual GFR. Note: On 05/08/2021, the eGFR calculation will be updated to the NKF-ASN Task Force recommended 2020 CKD-EPI creatinine equation which does not include a race variable. For more information or to access a 2020 CKD-EPI calculator, visit the National Kid[employer] website at kidney.org/professionals/kdoqi/gfr_calculator. eGFR- Date Value Ref Range Status 02/11/2021 52 Final P.O.C.T. RESULTS: N/A September 07, 2021 TREATMENT: N/A IV SITE: Ambulatory: A peripheral IV was started in the Left antecubital site with a Angio cath: 20gauge. IV SITE APPEARANCE: Clean,Dry and Intact SIGNATURE: Angella Malloy RN PATIENT NAME: Debby Hermosillo DATE: September 07, 2021 TIME: 10:29 AM * Becky Ledezma, RT(R) - 09/07/2021 10:15 AM EDT Radiology Service Progress Note PATIENT NAME: Debby Hermosillo DATE OF SERVICE: September 07, 2021 TIME: 10:41 AM PATIENT IDENTITY VERIFICATION COMPLETED USING TWO (2) IDENTIFIERS: Name and Date of confirmedby patient verbally. FALL SCREENING: Has the patient had 2 falls in the last year or 1 fall with injury or currently using an Ambulatory Assistive Device (Walker, Cane, Wheelchair, Crutches, etc.)? No PATIENT GENDER DATA: Female. status: : No status: NO. PATIENT RELEVANT IMPLANT DATA REVIEWED: Not Applicable RADIOLOGY DEPARTMENT: CT; Exam(s) Completed: Chest PERIPHERAL IV DATA: Site assessment: Clean,Dry and Intact, Site disposition Discontinued SIGNED BY: RT Bhavana(R) September 07, 2021 10:41 AM documented in this encounterHarrison [facility] Hospital06-20-2022 Miscellaneous Notes* Telephone Encounter - Marry Simpson RN - 08/30/2021 11:53 AM EDT Informed pt of UA results. Pt verbalized understanding and denies further needs at this time. Marry Simpson RN documented in this encounterHarrison [facility] Hospital06-18-2022 History of Present illness Narrative* Noemí Jolley PA-C - 08/28/2021 10:40 AM EDT Called patient and advised her to not take zofran while on cipro due to potential interaction. Verbalized understanding. Noemí Jolley PA-C documented in this encounterHarrison [facility] Hospital06-17-2022 Miscellaneous Notes* Telephone Encounter - Marry Simpson RN - 08/27/2021 4:22 PM EDT Pt informed and is still symptomatic and will begin Cipro. Marry Simpson RN * Telephone Encounter - Noemí Jolley PA-C - 08/27/2021 3:47 PM EDT If she is having symptoms, will start on Cipro since we don't have results and it is the weekend. Noemí Jolley PA-C * Telephone Encounter - Marry Simpson RN - 08/27/2021 3:31 PM EDT Spoke with [facility], culture pending, UA not ordered. Lab is going to run stat UA and fax results over aubrey. Marry Simpson RN * Telephone Encounter - Noemí Jolley PA-C - 08/27/2021 3:04 PM EDT Can you please call the patient ask patient if she did her urine test? I have not seen results. Noemí Jolley PA-C * Telephone Encounter - Noemí Jolley PA-C - 08/26/2021 3:41 PM EDT Can she please check a urinalysis and urine culture Prior to prescribing anything? Noemí Jolley PA-C documented in this encounterHarrison [facility]03-07-2022 Evaluation note* Encounter Date Diagnosis Assessment Notes Treatment Notes Treatment Clinical Notes May, Gastroesophageal reflux disease, unspecified whether esophagitis present (ICD-10 - K21.9) CONTINUE PANTOPRAZOLE 40 MG TWICE A DAY PRN May, Acute gastritis without hemorrhage, unspecified gastritis type (ICD-10 - K29.00) May, Nausea & vomiting (ICD-10 - R11.2) CONTINUE COMPAZINE DIRECTED [email or web address] Other 02-01-2022 Evaluation note* Encounter Date Diagnosis Assessment Notes Treatment Notes Treatment Clinical Notes Apr, Gastroesophageal reflux disease, unspecified whether esophagitis present (ICD-10 - K21.9) Apr, Chronic superficial gastritis without bleeding (ICD-10 - K29.30) Apr, Nausea & vomiting (ICD-10 - R11.2) START PANTOPRAZOLE 40 MG BID OBTAIN RECORDS FROM [facility] RTO 4 WEEKS Apr, 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 FALL SCREENING: Has the patient had 2 falls in the last year or 1 fall with injury or currently using an Ambulatory Assistive Device (Walker, Cane, Wheelchair, Crutches, etc.)? No PATIENT GENDER DATA: Female. status: : No status: NO. PATIENT RELEVANT IMPLANT DATA REVIEWED: Not Applicable RADIOLOGY DEPARTMENT: CT; Exam(s) Completed: Chest PERIPHERAL IV DATA: Site assessment: Clean,Dry and Intact, Site disposition Discontinued SIGNED BY: RT Bhavana(R) February 25, 2021 9:22 AM documented in this encounterHarrison [facility] Hospital12-16-2021 Nurse Note* Angella Malloy RN - 02/25/2021 8:15 AM EST Radiology Service Progress Note DATE OF SERVICE: February 25, 2021 TIME: 8:25 AM PATIENT WEIGHT: 83 LBS PATIENT IDENTITY VERIFICATION COMPLETED USING TWO (2) STANDARD IDENTIFIERS: Name and Date of confirmed by patient verbally. FALL SCREENING: Has the patient had 2 falls in the last year or 1 fall with injury or currently using an Ambulatory Assistive Device (Walker, Cane, Wheelchair, Crutches, etc.)? No PATIENT GENDER DATA: Female. status: : No status: NO. ALLERGIES: Reviewed and unchanged CONTRAST ALLERGY: No EXAM: CT -CONTRAST INDUCED NEPHROPATHY RISK FACTORS: Not applicable CREATININE: Creatinine Date Value Ref Range Status 02/11/2021 1.28 (H) 0.58 - 0.96 mg/dL Final 07/24/2020 0.73 0.58 - 0.96 mg/dL Final 01/17/2020 0.78 0.58 - 0.96 mg/dL Final eGFR-All Other Races Date Value Ref Range Status 02/11/2021 43 . Final Comment: eGFR (Estimated GFR) Units of measure: mL/min/1.73 meters squared eGFR is derived from the reexpressed MDRD Study equation using the following parameters: serum creatinine, age, gender and race. The creatinine assay has been calibrated to be traceable to IDMS. An eGFR <60 mL/min/1.73m2 for >3 months is consistent with chronic kidney disease. Refer to KDOQI guidelines for clinical interpretation. In patients with unstable renal function, e.g. those with acute kidney injury, the eGFR may not accurately reflect actual GFR. Note: On 05/08/2021, the eGFR calculation will be updated to the NKF-ASN Task Force recommended 2020 CKD-EPI creatinine equation which does not include a race variable. For more information or to access a 2020 CKD-EPI calculator, visit the [employer] website at kidney.org/professionals/kdoqi/gfr_calculator. eGFR- Date Value Ref Range Status 02/11/2021 52 Final P.O.C.T. RESULTS: N/A February 25, 2021 TREATMENT: N/A IV SITE: Ambulatory: A peripheral IV was started in the Left antecubital site with a Angio cath: 20gauge. IV SITE APPEARANCE: Clean,Dry and Intact SIGNATURE: Angella Malloy RN, BSN PATIENT NAME: Debby Hermosillo DATE: February 25, 2021 TIME: 8:25 AM [facility]12-16-2021 Nurse Note* Angella Malloy, RN - 02/25/2021 8:15 AM EST Radiology Service Progress Note DATE OF SERVICE: February 25, 2021 TIME: 8:25 AM PATIENT WEIGHT: 83 LBS PATIENT IDENTITY VERIFICATION COMPLETED USING TWO (2) STANDARD IDENTIFIERS: Name and Date of confirmed by patient verbally. FALL SCREENING: Has the patient had 2 falls in the last year or 1 fall with injury or currently using an Ambulatory Assistive Device (Walker, Cane, Wheelchair, Crutches, etc.)? No PATIENT GENDER DATA: Female. status: : No status: NO. ALLERGIES: Reviewed and unchanged CONTRAST ALLERGY: No EXAM: CT -CONTRAST INDUCED NEPHROPATHY RISK FACTORS: Not applicable CREATININE: Creatinine Date Value Ref Range Status 02/11/2021 1.28 (H) 0.58 - 0.96 mg/dL Final 07/24/2020 0.73 0.58 - 0.96 mg/dL Final 01/17/2020 0.78 0.58 - 0.96 mg/dL Final eGFR-All Other Races Date Value Ref Range Status 02/11/2021 43 . Final Comment: eGFR (Estimated GFR) Units of measure: mL/min/1.73 meters squared eGFR is derived from the reexpressed MDRD Study equation using the following parameters: serum creatinine, age, gender and race. The creatinine assay has been calibrated to be traceable to IDMS. An eGFR <60 mL/min/1.73m2 for >3 months is consistent with chronic kidney disease. Refer to KDOQI guidelines for clinical interpretation. In patients with unstable renal function, e.g. those with acute kidney injury, the eGFR may not accurately reflect actual GFR. Note: On 05/08/2021, the eGFR calculation will be updated to the NKF-ASN Task Force recommended 2020 CKD-EPI creatinine equation which does not include a race variable. For more information or to access a 2020 CKD-EPI calculator, visit the National [employer] website at kidney.org/professionals/kdoqi/gfr_calculator. eGFR- Date Value Ref Range Status 02/11/2021 52 Final P.O.C.T. RESULTS: N/A February 25, 2021 TREATMENT: N/A IV SITE: Ambulatory: A peripheral IV was started in the Left antecubital site with a Angio cath: 20gauge. IV SITE APPEARANCE: Clean,Dry and Intact SIGNATURE: Angella Malloy RN, BSN PATIENT NAME: Debby Hermosillo DATE: February 25, 2021 TIME: 8:25 AM [place] [id number] History of Past illness Narrative* Problem Noted Date Resolved Date Pneumonia 01/12/2017 01/12/2017 documented as of this encounter (statuses as of 08/16/2021) [address] History of Past illness Narrative* Problem Noted Date Resolved Date Pneumonia 01/12/2017 01/12/2017 documented as of this encounter (statuses as of 08/27/2021) [address]2017 History of Past illness Narrative* Problem Noted Date Resolved Date Pneumonia 01/12/2017 01/12/2017 documented as of this encounter (statuses as of 08/28/2021) [address]-2017 History of Past illness Narrative* Problem Noted Date Resolved Date Pneumonia 01/12/2017 01/12/2017 documented as of this encounter (statuses as of 08/30/2021) [address]-2017 History of Past illness Narrative* Problem Noted Date Resolved Date Pneumonia 01/12/2017 01/12/2017 documented as of this encounter (statuses as of 09/10/2021) [address]2017 History of Past illness Narrative* Problem Noted Date Resolved Date Pneumonia 01/12/2017 01/12/2017 documented as of this encounter (statuses as of 09/14/2021) [address]2017 History of Past illness Narrative* Problem Noted Date Resolved Date Pneumonia 01/12/2017 01/12/2017 documented as of this encounter (statuses as of 09/16/2021) [address]2017 History of Past illness Narrative* Problem Noted Date Resolved Date Pneumonia 01/12/2017 01/12/2017 documented as of this encounter (statuses as of 09/30/2021) [address]2017 History of Past illness Narrative* Problem Noted Date Resolved Date Pneumonia 01/12/2017 01/12/2017 documented as of this encounter (statuses as of 09/30/2021) [address]2017 History of Past illness Narrative* Problem Noted Date Resolved Date Pneumonia 01/12/2017 01/12/2017 documented as of this encounter (statuses as of 10/01/2021) [address]2017 History of Past illness Narrative* Problem Noted Date Resolved Date Pneumonia 01/12/2017 01/12/2017 documented as of this encounter (statuses as of 10/04/2021) [address]2017 History of Past illness Narrative* Problem Noted Date Resolved Date Pneumonia 01/12/2017 01/12/2017 documented as of this encounter (statuses as of 10/20/2021) [address]2017 History of Past illness Narrative* Problem Noted Date Resolved Date Pneumonia 01/12/2017 01/12/2017 documented as of this encounter (statuses as of 12/02/2021) [address]2017 History of Past illness Narrative* Problem Noted Date Resolved Date Pneumonia 01/12/2017 01/12/2017 documented as of this encounter (statuses as of 02/23/2022) [address]2017 History of Past illness Narrative* Problem Noted Date Resolved Date Pneumonia 01/12/2017 01/12/2017 documented as of this encounter (statuses as of 03/24/2022) [address]2017 History of Past illness Narrative* Problem Noted Date Resolved Date Pneumonia 01/12/2017 01/12/2017 documented as of this encounter (statuses as of 04/07/2022) [address]2017 History of Past illness Narrative* Problem Noted Date Resolved Date Pneumonia 01/12/2017 01/12/2017 documented as of this encounter (statuses as of 06/10/2022) [address]2017 History of Past illness Narrative* Problem Noted Date Resolved Date Pneumonia 01/12/2017 01/12/2017 documented as of this encounter (statuses as of 07/05/2022) [address]2017 History of Past illness Narrative* Problem Noted Date Resolved Date Pneumonia 01/12/2017 01/12/2017 documented as of this encounter (statuses as of 07/06/2022) [address]2017 History of Past illness Narrative* Problem Noted Date Resolved Date Pneumonia 01/12/2017 01/12/2017 documented as of this encounter (statuses as of 07/07/2022) [address]2017 History of Past illness Narrative* Problem Noted Date Resolved Date Pneumonia 01/12/2017 01/12/2017 documented as of this encounter (statuses as of 07/07/2022) [address]2017 History of Past illness Narrative* Problem Noted Date Resolved Date Pneumonia 01/12/2017 01/12/2017 documented as of this encounter (statuses as of 07/11/2022) [address]2017 History of Past illness Narrative* Problem Noted Date Resolved Date Pneumonia 01/12/2017 01/12/2017 documented as of this encounter (statuses as of 07/21/2022) [address]2017 History of Past illness Narrative* Problem Noted Date Resolved Date Pneumonia 01/12/2017 01/12/2017 documented as of this encounter (statuses as of 08/11/2022) [address]-2017 History of Past illness Narrative* Problem Noted Date Resolved Date Pneumonia 01/12/2017 01/12/2017 documented as of this encounter (statuses as of 08/17/2022) [address]02-2017 History of Past illness Narrative* Problem Noted Date Diagnosed Date Resolved Date Pneumonia 01/12/2017 01/12/2017 documented as of this encounter (statuses as of 09/20/2022) [address]-2017 History of Past illness Narrative* Problem Noted Date Diagnosed Date Resolved Date Pneumonia 01/12/2017 01/12/2017 documented as of this encounter (statuses as of 09/22/2022) [address]-2017 History of Past illness Narrative* Problem Noted Date Diagnosed Date Resolved Date Pneumonia 01/12/2017 01/12/2017 documented as of this encounter (statuses as of 09/22/2022) [address]-2017 History of Past illness Narrative* Problem Noted Date Diagnosed Date Resolved Date Pneumonia 01/12/2017 01/12/2017 documented as of this encounter (statuses as of 11/11/2022) [address]-2017 History of Past illness Narrative* Problem Noted Date Diagnosed Date Resolved Date Pneumonia 01/12/2017 01/12/2017 documented as of this encounter (statuses as of 11/11/2022) [address]-2017 History of Past illness Narrative* Problem Noted Date Diagnosed Date Resolved Date Pneumonia 01/12/2017 01/12/2017 documented as of this encounter (statuses as of 11/12/2022) [address]-2017 History of Past illness Narrative* Problem Noted Date Diagnosed Date Resolved Date Pneumonia 01/12/2017 01/12/2017 documented as of this encounter (statuses as of 11/24/2022) [address]-2017 History of Past illness Narrative* Problem Noted Date Diagnosed Date Resolved Date Pneumonia 01/12/2017 01/12/2017 documented as of this encounter (statuses as of 12/13/2022) [address]02-2017 History of Past illness Narrative* Problem Noted Date Diagnosed Date Resolved Date Pneumonia 01/12/2017 01/12/2017 documented as of this encounter (statuses as of 01/02/2023) [address]02-2017 History of Past illness Narrative* Problem Noted Date Diagnosed Date Resolved Date Pneumonia 01/12/2017 01/12/2017 documented as of this encounter (statuses as of 01/04/2023) [address]02-2017 History of Past illness Narrative* Problem Noted Date Diagnosed Date Resolved Date Pneumonia 01/12/2017 01/12/2017 documented as of this encounter (statuses as of 01/05/2023) [address]02-2017 History of Past illness Narrative* Problem Noted Date Diagnosed Date Resolved Date Pneumonia 01/12/2017 01/12/2017 documented as of this encounter (statuses as of 01/09/2023) [address]02-2017 History of Past illness Narrative* Problem Noted Date Diagnosed Date Resolved Date Pneumonia 01/12/2017 01/12/2017 documented as of this encounter (statuses as of 01/11/2023) [address]02-2017 History of Past illness Narrative* Problem Noted Date Diagnosed Date Resolved Date Pneumonia 01/12/2017 01/12/2017 documented as of this encounter (statuses as of 01/16/2023) [address]02-2017 History of Past illness Narrative* Problem Noted Date Diagnosed Date Resolved Date Pneumonia 01/12/2017 01/12/2017 documented as of this encounter (statuses as of 01/25/2023) [address]02-2017 History of Past illness Narrative* Problem Noted Date Diagnosed Date Resolved Date Pneumonia 01/12/2017 01/12/2017 documented as of this encounter (statuses as of 01/26/2023) [address]02-2017 History of Past illness Narrative* Problem Noted Date Diagnosed Date Resolved Date Pneumonia 01/12/2017 01/12/2017 documented as of this encounter (statuses as of 02/15/2023) [address]02-2017 History of Past illness Narrative* Problem Noted Date Diagnosed Date Resolved Date Pneumonia 01/12/2017 01/12/2017 documented as of this encounter (statuses as of 02/16/2023) [address]02-2017 History of Past illness Narrative* Problem Noted Date Diagnosed Date Resolved Date Pneumonia 01/12/2017 01/12/2017 documented as of this encounter (statuses as of 05/05/2023) [address]02-2017 History of Past illness Narrative* Problem Noted Date Diagnosed Date Resolved Date Pneumonia 01/12/2017 01/12/2017 documented as of this encounter (statuses as of 05/10/2023) [address]02-2017 History of Past illness Narrative* Problem Noted Date Diagnosed Date Resolved Date Pneumonia 01/12/2017 01/12/2017 documented as of this encounter (statuses as of 05/10/2023) [address]02-2017 History of Past illness Narrative* Problem Noted Date Diagnosed Date Resolved Date Pneumonia 01/12/2017 01/12/2017 documented as of this encounter (statuses as of 05/30/2023) [address]02-2017 History of Past illness Narrative* Problem Noted Date Diagnosed Date Resolved Date Pneumonia 01/12/2017 01/12/2017 documented as of this encounter (statuses as of 05/30/2023) [address]02-2017 History of Past illness Narrative* Problem Noted Date Diagnosed Date Resolved Date Pneumonia 01/12/2017 01/12/2017 documented as of this encounter (statuses as of 06/16/2023) [address]02-2017 History of Past illness Narrative* Problem Noted Date Diagnosed Date Resolved Date Pneumonia 01/12/2017 01/12/2017 documented as of this encounter (statuses as of 06/21/2023) [address]02-2017 History of Past illness Narrative* Problem Noted Date Diagnosed Date Resolved Date Pneumonia 01/12/2017 01/12/2017 documented as of this encounter (statuses as of 06/21/2023) [address]02-2017 History of Past illness Narrative* Problem Noted Date Diagnosed Date Resolved Date Pneumonia 01/12/2017 01/12/2017 documented as of this encounter (statuses as of 06/23/2023) [facility] Appointment Date:11/01/2022 10:00:00 AM Scheduled Provider:JESSIKA ESQUIVEL PA-C Location:[facility] Appointment Type:URO Office Visit [facility] evaluation + Plan note Future Appointments Appointment Date:11/01/2022 10:00:00 AM Scheduled Provider:JESSIKA ESQUIVEL PA-C Location:[facility] Appointment Type:URO Office Visit Diagnostic Tests Pending * [facility] Future Appointments Appointment Date:11/07/2023 10:00:00 AM Scheduled Provider:JESSIKA ESQUIVEL PA-C Location:[facility] Appointment Type:URO Office Visit [facility] evaluation note* Diagnosis Malignant neoplasm of hilus of lung, unspecified laterality (HCC) Anemia, unspecified type [facility] Diagnosis Dysuria- Primary [facility] Other Evaluation note* Diagnosis Abnormal weight loss- Primary Loss of weight Malignant neoplasm of unspecified part of unspecified bronchus or lung (HCC) Frequent UTI Urinary tract infection, site not specified [facility]* Diagnosis Cerebrovascular accident (CVA) due to occlusion of small artery (HCC)- Primary Malignant neoplasm of unspecified part of unspecified bronchus or lung (HCC) [facility] Diagnosis Close exposure to COVID-19 virus- Primary [facility] assessment information [facility] Work Phone: evaluation note* Diagnosis Thrush- Primary Candidiasis of mouth [facility]* Diagnosis Malignant neoplasm of unspecified part of unspecified bronchus or lung (HCC)- Primary Malignant neoplasm of hilus of lung, unspecified laterality (HCC) Anemia, unspecified type [facility] Diagnosis Malignant neoplasm of hilus of lung, unspecified laterality (HCC) Anemia, unspecified type [facility]* Diagnosis Lung nodule- Primary Solitary pulmonary nodule Small cell carcinoma of lung, 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) Pre-op testing Preoperative examination, unspecified [facility] Diagnosis Preoperative examination- Primary Preoperative examination, unspecified [facility] Diagnosis Malignant neoplasm of hilus of lung, unspecified laterality (HCC) Anemia, unspecified type [facility] Diagnosis Bronchiolar disease Other diseases of trachea and bronchus Lung nodule Solitary pulmonary nodule [facility] Diagnosis Malignant neoplasm of hilus of lung, unspecified laterality (HCC)- Primary [facility]* Diagnosis Malignant neoplasm of upper lobe of left lung (HCC) [facility] Diagnosis Malignant neoplasm of upper lobe of left lung (HCC) [facility] Diagnosis Lung nodule [R91.1]- Primary Solitary pulmonary nodule [facility] Diagnosis Encounter for preoperative anesthesiology assessment for thoracic surgery- Primary Malignant neoplasm of unspecified part of unspecified bronchus or lung (HCC) Pre-op testing Preoperative examination, unspecified SOB (shortness of breath) Shortness of breath [facility] Diagnosis Lung nodule- Primary Solitary pulmonary nodule Malignant neoplasm of unspecified part of unspecified bronchus or lung (HCC) Pre-op testing Preoperative examination, unspecified SOB (shortness of breath) Shortness of breath [facility] Diagnosis Malignant neoplasm of unspecified part of unspecified bronchus or lung (HCC) Pre-op testing Preoperative examination, unspecified SOB (shortness of breath) Shortness of breath Encounter for other preprocedural examination Malignant neoplasm of unspecified part of unspecified bronchus or lung (HCC) Pre-op testing Preoperative examination, unspecified SOB (shortness of breath) Shortness of breath [facility] Malignant neoplasm of unspecified part of unspecified bronchus or lung (HCC)- Primary Lung nodule Solitary pulmonary nodule [facility] Diagnosis Malignant neoplasm of upper lobe of left lung (HCC)- Primary [facility] Diagnosis Malignant neoplasm of upper lobe of left lung (HCC)- Primary Anemia, unspecified type Malaise and fatigue Other malaise and fatigue [facility] Diagnosis Malignant neoplasm of upper lobe of left lung (HCC)- Primary Malaise and fatigue Other malaise and fatigue [facility] Diagnosis Malignant neoplasm of upper lobe of left lung (HCC)- Primary Malignant neoplasm of hilus of lung, unspecified laterality (HCC) [facility] Diagnosis Vascular insufficiency- Primary Unspecified circulatory system disorder [facility] Diagnosis Malignant neoplasm of lower lobe of left lung (HCC) [facility] Diagnosis Anemia, unspecified type- Primary Malignant neoplasm of upper lobe of left lung (HCC) Malaise and fatigue Other malaise and fatigue Dysuria [facility] Diagnosis Dysuria- Primary Malignant neoplasm of upper lobe of left lung (HCC) Malignant neoplasm of hilus of lung, unspecified laterality (HCC) Anemia, unspecified type [facility] Diagnosis Malignant neoplasm of upper lobe of left lung (HCC)- Primary [facility] Diagnosis Malignant neoplasm of upper lobe of left lung (HCC)- Primary Malignant neoplasm of hilus of lung, unspecified laterality (HCC) [facility] Diagnosis Malignant neoplasm of hilus of lung, unspecified laterality (HCC)- Primary Malaise and fatigue Other malaise and fatigue [facility] Diagnosis Malignant neoplasm of upper lobe of left lung (HCC)- Primary Malignant neoplasm of hilus of lung, unspecified laterality (HCC) [facility] Diagnosis Malignant neoplasm of hilus of lung, unspecified laterality (HCC)- Primary Malaise and fatigue Other malaise and fatigue Malignant neoplasm of unspecified part of unspecified bronchus or lung (HCC) [facility] Diagnosis Malignant neoplasm of hilus of lung, unspecified laterality (HCC)- Primary Anemia, unspecified type [facility] Diagnosis Malignant neoplasm of hilus of lung, unspecified laterality (HCC)- Primary Anemia, unspecified type Malaise and fatigue Other malaise and fatigue [facility] Diagnosis Malignant neoplasm of upper lobe of left lung (HCC)- Primary Malignant neoplasm of hilus of lung, unspecified laterality (HCC) [facility] Diagnosis Malignant neoplasm of hilus of lung, unspecified laterality (HCC)- Primary Anemia, unspecified type Malignant neoplasm of right lung, unspecified part of lung (HCC) [facility] Diagnosis Malignant neoplasm of hilus of lung, unspecified laterality (HCC)- Primary Malignant neoplasm of upper lobe of left lung (HCC) [facility] Diagnosis Anemia, unspecified type- Primary [facility] Diagnosis Malaise and fatigue- Primary Other malaise and fatigue [facility] Diagnosis Malignant neoplasm of hilus of lung, unspecified laterality (HCC)- Primary Onychomycosis Dermatophytosis of nail [facility] Diagnosis Malignant neoplasm of hilus of lung, unspecified laterality (HCC)- Primary Malignant neoplasm of upper lobe of left lung (HCC) [facility] Diagnosis Malignant neoplasm of hilus of lung, unspecified laterality (HCC) Anemia, unspecified type [facility] Diagnosis Malignant neoplasm of hilus of lung, unspecified laterality (HCC)- Primary Thyroid dysfunction Unspecified disorder of thyroid Abnormal blood chemistry Other abnormal blood chemistry [facility] Diagnosis Malaise and fatigue- Primary Other malaise and fatigue Malignant neoplasm of hilus of lung, unspecified laterality (HCC) Anemia, unspecified type [facility] Diagnosis Malignant neoplasm of hilus of lung, unspecified laterality (HCC) Malignant neoplasm of right lung, unspecified part of lung (HCC) [facility] Diagnosis Malignant neoplasm of hilus of lung, unspecified laterality (HCC) Malaise and fatigue Other malaise and fatigue Malignant neoplasm of unspecified part of unspecified bronchus or lung (HCC) [facility] Diagnosis Malignant neoplasm of upper lobe of left lung (HCC) [facility] Diagnosis Neoplasm of lung Neoplasm of unspecified nature of respiratory system [facility] this encounter [facility] [facility]* Diagnosis Malignant neoplasm of unspecified part of unspecified bronchus or lung (HCC) Pre-op testing Preoperative examination, unspecified SOB (shortness of breath) Shortness of breath [facility] Malignant neoplasm of lower lobe of right lung (HCC) [facility] Diagnosis Small cell carcinoma of lung, 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) Lung nodule Solitary pulmonary nodule Pre-op testing Preoperative examination, unspecified [facility] Diagnosis Malignant neoplasm of unspecified part of unspecified bronchus or lung (HCC) [facility] Diagnosis Neoplasm of lung Neoplasm of unspecified nature of respiratory system [facility] Diagnosis Malignant neoplasm of unspecified part of unspecified bronchus or lung (HCC) [facility] Diagnosis Malignant neoplasm of unspecified part of unspecified bronchus or lung (HCC) [facility] Diagnosis Lung nodules Other nonspecific abnormal finding of lung field [facility] Diagnosis Malignant neoplasm of hilus of lung, unspecified laterality (HCC) Anemia, unspecified type [facility] Diagnosis Malaise and fatigue- Primary Other malaise and fatigue Malignant neoplasm of hilus of lung, unspecified laterality (HCC) Malignant neoplasm of right lung, unspecified part of lung (HCC) Abnormal blood chemistry Other abnormal blood chemistry [facility] Diagnosis Malignant neoplasm of unspecified part of unspecified bronchus or lung (HCC)- Primary Malignant neoplasm of hilus of lung, unspecified laterality (HCC) Malignant neoplasm of right lung, unspecified part of lung (HCC) 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) Syncope and collapse [facility] Diagnosis Malignant neoplasm of unspecified part of unspecified bronchus or lung (HCC) Malignant neoplasm of hilus of lung, unspecified laterality (HCC) Malignant neoplasm of right lung, unspecified part of lung (HCC) 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) [facility] Diagnosis Malignant neoplasm of unspecified part of unspecified bronchus or lung (HCC)- Primary Malignant neoplasm of right lung, unspecified part of lung (HCC) 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) Syncope and collapse Malaise and fatigue Other malaise and fatigue Nonintractable headache, unspecified chronicity pattern, unspecified headache type [facility] Diagnosis Episodic migraine (CMS/HCC)- Primary [facility] Diagnosis Malignant neoplasm of hilus of lung, unspecified laterality (HCC) Anemia, unspecified type [facility] Diagnosis 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 [facility] Diagnosis 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)- Primary 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 [facility] Diagnosis 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)- Primary 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 Malignant neoplasm of hilus of lung, unspecified laterality (HCC) Malaise and fatigue Other malaise and fatigue [facility] Diagnosis Malignant neoplasm of unspecified part of unspecified bronchus or lung (HCC)- Primary Malignant neoplasm of upper lobe of left lung (HCC) [facility] Diagnosis Primary malignant neoplasm 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 (HCC)- Primary 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 [facility] Diagnosis 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 [facility] Diagnosis Secondary malignant neoplasm of brain (HCC)- Primary Secondary malignant neoplasm of brain and spinal cord [facility] Diagnosis 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 [facility] Diagnosis 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 [facility] Diagnosis Malignant neoplasm of unspecified part of unspecified bronchus or lung (HCC)- Primary [facility] Diagnosis 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)- Primary 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 Malaise and fatigue Other malaise and fatigue [facility] Diagnosis Ischemic stroke (CMS/HCC)- Primary Malignant neoplasm of lung, unspecified laterality, unspecified part of lung (CMS/HCC) Tobacco use Episodic migraine (CMS/HCC) 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) Secondary malignant neoplasm of brain and spinal cord [facility] Diagnosis 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)- Primary 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 Malignant neoplasm of right lung, unspecified part of lung (HCC) 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, unspecified laterality (HCC) [facility] Diagnosis Malignant neoplasm of unspecified part of unspecified bronchus or lung (HCC)- Primary Malignant neoplasm of upper lobe of left lung (HCC) [facility] Diagnosis Malignant neoplasm of hilus of lung, unspecified laterality (HCC) Anemia, unspecified type [facility] Diagnosis Dysuria- Primary Malignant neoplasm of hilus of lung, unspecified laterality (HCC) [facility] Diagnosis Malignant neoplasm of hilus of lung, unspecified laterality (HCC) Anemia, unspecified type [facility] Diagnosis 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) 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 Malignant neoplasm of right lung, unspecified part of lung (HCC) 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, unspecified laterality (HCC) [facility] Diagnosis Malignant neoplasm of unspecified part of unspecified bronchus or lung (HCC)- Primary Malignant neoplasm of upper lobe of left lung (HCC) [facility] Diagnosis Malignant neoplasm of hilus of lung, unspecified laterality (HCC)- Primary 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) 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 Malignant neoplasm of right lung, unspecified part of lung (HCC) 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) [facility] Narrative - Reported* Type Description Date Medical History metastatic lung cancer Medical History GERD Surgical History hysterectomy 2012 Surgical History cholecystectomy 1985 Hospitalization History see above [email or web address] Other History general Narrative - Reported* Type Description Date Medical History metastatic lung cancer- small ce ll Medical History GERD Surgical History hysterectomy 2012 Surgical History cholecystectomy 1984 Surgical History Lung Biopsy Surgical History Wedge Resection Hospitalization History see above [email or web address] Other Hospital course Narrative No data available for this section [facility] [employer] Hospital Discharge instructions No data available for this section [facility] [employer] progress note No data available for this section [facility] [employer] reason for referral (narrative)* Diagnostic Procedure Only (Urgent) - Closed Specialty Diagnoses / Procedures Referred By Contac t Referred To Contact MOLECULAR & FUNCTIONAL IMAGING Diagnoses Malignant neoplasm of unspecified part of unspecified bronchus or lung (HCC) Pre-op testing SOB (shortness of breath) Encounter for other preprocedural examination Procedures NM CARDIAC PERF STRESS/EXERCISE MYOCARDIAL SPECT MULTIPLE STUDIES Mina Walden MD [address] [place] [address] Molecular & Functional Imaging [address] [place] [address] Referral ID Status Reason Start Date Expiration Date V isits Requested Visits Authorized [id number] Closed Auto-Generate d Referral 10/28/2022 03/12/2023 2 2 [facility] for referral (narrative)* Diagnostic Procedure Only (Routine) - Authorized Specialty Diagnoses / Procedures Referred By Contac t Referred To Contact MOLECULAR & FUNCTIONAL IMAGING Diagnoses Malignant neoplasm of upper lobe of left lung (HCC) Procedures NM PET/CT SKULL-THIGH SUBSEQUENT PET IMAGING CT ATTENUATION SKULL BASE MID-THIGH Stacy Adhikari MD [address] [place] [id number] Molecular & Functional Imaging [address] [place] [address] Referral ID Status Reason Start Date Expiration Date Visits Requested Visits Authorized [id number] Authorized Auto-Generat ed Referral 02/15/2023 03/12/2023 1 1 [facility] for referral (narrative)* Diagnostic Procedure Only (Routine) - Open Specialty Diagnoses / Procedures [facility] MOLECULAR & FUNCTIONAL IMAGING Diagnoses Malignant neoplasm of hilus of lung, unspecified laterality (HCC) Malaise and fatigue Malignant neoplasm of unspecified part of unspecified bronchus or lung (HCC) Procedures NM PET/CT SKULL-THIGH SUBSEQUENT PET IMAGING CT ATTENUATION SKULL BASE MID-THIGH Noemí Jolley PA-C [address] [place] [address] Molecular & Functional Imaging [address] [place] [address] Referral ID Status Reason Start Date Expiration Date V isits Requested Visits Authorized [id number] Open Auto-Generate d Referral 05/30/2023 2024 1 1 [facility] for referral (narrative)* Diagnostic Procedure Only (Routine) - Closed Specialty Diagnoses / Procedures Referred By Gayle t Referred To Contact MOLECULAR & FUNCTIONAL IMAGING Diagnoses Malignant neoplasm of hilus of lung, unspecified laterality (HCC) Malaise and fatigue Malignant neoplasm of unspecified part of unspecified bronchus or lung (HCC) Procedures NM PET/CT SKULL-THIGH SUBSEQUENT PET IMAGING CT ATTENUATION SKULL BASE MID-THIGH Noemí Jolley PA-C [address] [place] [address] Molecular & Functional Imaging [address] [place] [address] Referral ID Status Reason Start Date Expiration Date V isits Requested Visits Authorized [id number] Closed Auto-Generate d Referral 06/01/2023 03/12/2024 1 1 [facility] for referral (narrative)* Diagnostic Procedure Only (Routine) - Closed Specialty Diagnoses / Procedures Referred By Contac t Referred To Contact MOLECULAR & FUNCTIONAL IMAGING Diagnoses Malignant neoplasm of upper lobe of left lung (HCC) Procedures NM PET/CT SKULL-THIGH SUBSEQUENT PET IMAGING CT ATTENUATION SKULL BASE MID-THIGH Stacy Adhikari MD [address] [place] [address] Molecular & Functional Imaging [address] [place] [address] Referral ID Status Reason Start Date Expiration Date V isits Requested Visits Authorized [id number] Closed Auto-Generate d Referral 02/15/2023 03/12/2023 1 1 [facility] for referral (narrative)* Diagnostic Procedure Only (Urgent) - Closed Specialty Diagnoses / Procedures Referred By Contac t Referred To Contact MOLECULAR & FUNCTIONAL IMAGING Diagnoses Neoplasm of lung Procedures NM PET/CT SKULL-THIGH INITIAL PET IMAGING CT ATTENUATION SKULL BASE MID-THIGH Stacy Adhikari MD [address] [place] [phone] Molecular & Functional Imaging [address] [place], [place] [id number] Referral ID Status Reason Start Date Expiration Date V isits Requested Visits Authorized [id number] Closed Auto-Generate d Referral 12/19/2022 03/12/2023 1 1 [facility] for referral (narrative)* Diagnostic Procedure Only (Routine) - Closed Specialty Diagnoses / Procedures Referred By Gayle moran Referred To Contact MOLECULAR & FUNCTIONAL IMAGING Diagnoses Neoplasm of lung Procedures NM PET/CT SKULL-THIGH INITIAL PET IMAGING CT ATTENUATION SKULL BASE MID-THIGH Stacy Adhikari MD [address] [place] [address] Molecular & Functional Imaging [address] [place] [address] Referral ID Status Reason Start Date Expiration Date V isits Requested Visits Authorized [id number] Closed Auto-Generate d Referral 07/15/2022 07/15/2022 1 1 [facility] for referral (narrative)* Diagnostic Procedure Only (Routine) - Closed Specialty Diagnoses / Procedures Referred By Gayle moran Referred To Contact CT IMAGING Diagnoses Malignant neoplasm of unspecified part of unspecified bronchus or lung (HCC) Procedures CT CHEST W IVCON DIAGNOSTIC COMPUTED TOMOGRAPHY THORAX W/CONTRAST Stacy Adhikari MD [address] [place] [address] [address] [facility] Referral ID Status Reason Start Date Expiration Date Visits Re quested Visits Authorized [id number] Closed 03/17/2022 03/12/2023 1 1 * Diagnostic Procedure Only (Routine) - Closed Specialty Diagnoses / Procedures Referred By Gayle moran Referred To Contact CT IMAGING Diagnoses Malignant neoplasm of unspecified part of unspecified bronchus or lung (HCC) Procedures CT ABD/PEL W IVCON CT ABD & PELVIS W/CONTRAST Stacy Adhikari MD [address] [place] [address] [address] [place] [address] Referral ID Status Reason Start Date Expiration Date Visits Re quested Visits Authorized [id number] Closed 03/17/2022 03/12/2023 1 1 [facility] for referral (narrative)* Diagnostic Procedure Only (Routine) - Pending Review Specialty Diagnoses / Procedures Referred By Contac t Referred To Contact MOLECULAR & FUNCTIONAL IMAGING Diagnoses 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) Malignant neoplasm of right lung, unspecified part of lung (HCC) 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, unspecified laterality (HCC) Procedures NM PET/CT SKULL-THIGH SUBSEQUENT PET IMAGING CT ATTENUATION SKULL BASE MID-THIGH Arya Rdz MD [address] [place] [address] [place] [address] Molecular & Functional Imaging [address] [place] [address] Referral ID Status Reason Start Date Expiration Date Visits Requested Visits Authorized [id number] Pending Review Auto-Generat ed Referral 04/25/2024 04/20/2025 1 1 [facility] for visit NarrativePT HERE AT REQUEST OF DR ADHIKARI FOR EVALUATION AND TREATMENT OF NAUSEA AND VOMITING, [facility]ERRAL NOTE [facility] for visit Narrative* Ada Prior Authorization (Routine) - Authorized Specialty Diagnoses / Procedures Referred By Contotto t Referred To Contact Diagnoses Malignant neoplasm of upper lobe of left lung (HCC) Malignant neoplasm of unspecified part of unspecified bronchus or lung Procedures INJ PEMBROLIZUMAB Stacy Adhikari MD [address] [place] [address] [place] [address] Phone: tel: fax: Hematology/Oncology [address] [place] [address] [place] [address] Phone: tel: fax: Referral ID Status Reason Start Date Expiration Date V isits Requested Visits Authorized [id number] Authorized 06/20/2023 07/11/2024 17 17 [facility] Reason for Referral Specialty Diagnoses / Procedures Referred By Contotto t Referred To Contact CT IMAGING Diagnoses Secondary malignant neoplasm of brain (HCC) Procedures CT BRAIN STEREOLOCAL WO IVCON CT GUIDANCE STEREOTACTIC LOCALIZATION Alfredo More MD [address] [place] [address] Ct Imaging [facility] Referral ID Status Reason Start Date Expiration Date V isits Requested Visits Authorized [id number] Closed Auto-Generat ed Referral Patient Cleared - Admin/Chairm an/Director advise to proceed or did not respond 02/15/2024 03/16/2025 1 1 Specialty Diagnoses / Procedures Referred By Contac t Referred To Contact MR IMAGING Diagnoses Secondary malignant neoplasm of brain (HCC) Procedures MRI BRAIN LOCALIZATION W IVCON MAGNETIC RESONANCE ELASTOGRAPHY Alfredo More MD [address] [place] [address] Mr Imaging [facility] Referral ID Status Reason Start Date Expiration Date V isits Requested Visits Authorized [id number] Closed Auto-Generate d Referral 02/15/2024 03/12/2024 1 1 Specialty Diagnoses / Procedures Referred By Contac t Referred To Contact Neurosurgery Diagnoses 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) Procedures CONSULT TO NEUROSURGERY OFFICE/OUTPATIENT [facility] 60 MINUTES Noemí Jolley PA-C [address] [place] [address] [place] [address] Referral ID Status Reason Start Date Expiration Date Visits Requested Visits Authorized [id number] Authorized PCP Requested Referral 02/01/2025 1 1 Specialty Diagnoses / Procedures Referred By Contac t Referred To Contact CT IMAGING Diagnoses Lung nodules Procedures CT CHEST W IVCON CAT SCAN OF CHEST CONTRAST Noemí Jolley PA-C [address] [place] [address] [place] [address] Ct Imaging [facility] Referral ID Status Reason Start Date Expiration Date V isits Requested Visits Authorized [id number] Closed Auto-Generate d Referral 02/15/2021 03/12/2021 1 1 Specialty Diagnoses / Procedures Referred By Contac t Referred To Contact Podiatry Diagnoses Onychomycosis Procedures CONSULT TO PODIATRY OFFICE/OUTPATIENT [facility] MDM 60 MINUTES Stacy Adhikari MD [address] [place] [address] Referral ID Status Reason Start Date Expiration Date Visits Requested Visits Authorized [id number] Authorized PCP Requested Referral 10/03/2023 10/02/2024 1 1 Specialty Diagnoses / Procedures Referred By Contac t Referred To Contact Vascular Medicine Diagnoses Vascular insufficiency Procedures CONSULT TO VASCULAR MEDICINE OFFICE/OUTPATIENT [facility] 60-74 MINUTES Noemí Jolley PA-C [address] [place] [address] Referral ID Status Reason Start Date Expiration Date Visits Requested Visits Authorized [id number] Authorized PCP Requested Referral 01/02/2024 1 1 Specialty Diagnoses / Procedures Referred By Contac t Referred To Contact CT IMAGING Diagnoses Small cell carcinoma of lung, 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) Lung nodule Pre-op testing Procedures CT CHEST WO IVCON DIAGNOSTIC COMPUTED TOMOGRAPHY THORAX W/O CNTRST Dre Cantor MD [address] [place] [address] Ct Imaging Referral ID Status Reason Start Date Expiration Date Visits Requested Visits Authorized [id number] Pending Review Auto-Generat ed Referral 07/05/2022 08/04/2023 1 1 Specialty Diagnoses / Procedures Referred By Contac t Referred To [facility] Diagnoses Small cell carcinoma of lung, 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) Lung nodule Pre-op testing Procedures ECG COMPLETE ECG ROUTINE ECG W/LEAST 12 LDS W/I&R Dre Cantor MD [address] [place] [address] Heart [facility] [place] [facility] [place] [address] Referral ID Status Reason Start Date Expiration Date Visits Requested Visits Authorized [id number] Pending Review Auto-Generat ed Referral 07/05/2022 07/05/2023 1 1 Specialty Diagnoses / Procedures Referred By Contac t Referred To Contact Urology Diagnoses Frequent UTI Procedures CONSULT TO UROLOGY OFFICE/OUTPATIENT [facility]DM 60-74 MINUTES Noemí Jolley PA-C [address] [place] [address] Referral ID Status Reason Start Date Expiration Date Visits Requested Visits Authorized [id number] Authorized PCP Requested Referral 09/14/2021 09/14/2022 1 1 Specialty Diagnoses / Procedures Referred By Contac t Referred To Contact MR IMAGING Diagnoses Malignant neoplasm of unspecified part of unspecified bronchus or lung (HCC) Procedures MRI BRAIN WO/W IVCON MRI BRAIN BRAIN STEM W/O W/CONTRAST MATERIAL Noemí Jolley PA-C [address] [place] [address] Mr Imaging Referral ID Status Reason Start Date Expiration Date Visits Requested Visits Authorized [id number] Pending Review Auto-Generat ed Referral 09/14/2021 10/14/2022 1 1 Specialty Diagnoses / Procedures Referred By Contac t Referred To Contact CT IMAGING Diagnoses Malignant neoplasm of unspecified part of unspecified bronchus or lung (HCC) Procedures CT CHEST W IVCON DIAGNOSTIC COMPUTED TOMOGRAPHY THORAX W/CONTRAST Noemí Jolley PA-C [address] [place] [address] Ct Imaging Referral ID Status Reason Start Date Expiration Date Visits Requested Visits Authorized [id number] Pending Review Auto-Generat ed Referral 03/17/2022 10/14/2022 1 1 Health Concerns Infection Onset Date Last Indicated Resolved Time COVID-19 Rule-Out 10/01/2021 10/01/2021 10/02/2021 8:03 AM EDT Chief Complaint and Reason for Visit Chief Complaint I63.9 Advance Directives Advance Directive Response Recorded Date/ Time Advance Directives No June 06 018 3:47pm Summary Purpose Family History No Family History Records FoundNo Family History Records FoundNo Family History Records FoundNo Family History Records Found No data available for this section No Family History Records FoundNo Family History Records FoundNo Family History Records FoundNo Family History Records Found Medications Administered Section Inactive Administered Medications - up to 3 most recent administrations Medication Order MAR Action Action Date Dose Rate Site pembrolizumab 200 mg in NaCl 0.9% 66 mL (KEYTRUDA) 200 mg, INTRAVENOUS, Administer over 30 Minutes, ONCE, 1 dose, On Mon01/04/23 at 1400, Approx Total Volume: 66 mL EXP: 01/04/23 2000 RT Administer with 0.2 micron filter. New Bag/Syringe/Bottle 01/04/2023 2:15 PM EDT 200 mg Inactive Administered Medications - up to 3 most recent administrations Medication Order MAR Action Action Date Dose Rate Site pembrolizumab 200 mg in NaCl 0.9% 66 mL (KEYTRUDA) 200 mg, INTRAVENOUS, Administer over 30 Minutes, ONCE, 1 dose, On Mon01/25/23 at 1530, Approx Total Volume: 66 mL EXP 1500 01/26/23 RF Administer with 0.2 micron filter. New Bag/Syringe/Bottle 01/25/2023 3:27 PM EST 200 mg Inactive Administered Medications - up to 3 most recent administrations Medication Order MAR Action Action Date Dose Rate Site pembrolizumab 200 mg in NaCl 0.9% 66 mL (KEYTRUDA) 200 mg, INTRAVENOUS, Administer over 30 Minutes, ONCE, 1 dose, On Mon02/15/23 at 1430, Approx Total Volume: 66 mL EXP: 02/15/23 2020 RT Administer with 0.2 micron filter. New Bag/Syringe/Bottle 02/15/2023 2:31 PM EST 200 mg Additional Source Comments Source Comments (unrecognize d section and content) In the event this informatio n is protected by the Federal Confidentiality of Alcohol and Drug Abuse Patient Records regulations: The Federal rules restrict any use of the information to criminally investigate or prosecute any alcohol or drug abuse patient.[facility]In the event this information is protected by the Federal Confidentiality of Alcohol and Drug Abuse Patient Records regulations: The Federal rules restrict any use of the information to criminally investigate or prosecute any alcohol or drug abuse patient.[facility] HospitalIn the event this information is protected by the Federal Confidentiality of Alcohol and Drug Abuse Patient Records regulations: The Federal rules restrict any use of the information to criminally investigate or prosecute any alcohol or drug abuse patient.[facility] HospitalIn the event this information is protected by the Federal Confidentiality of Alcohol and Drug Abuse Patient Records regulations: The Federal rules restrict any use of the information to criminally investigate or prosecute any alcohol or drug abuse patient.[facility] HospitalIn the event this information is protected by the Federal Confidentiality of Alcohol and Drug Abuse Patient Records regulations: The Federal rules restrict any use of the information to criminally investigate or prosecute any alcohol or drug abuse patient.[facility] HospitalIn the event this information is protected by the Federal Confidentiality of Alcohol and Drug Abuse Patient Records regulations: The Federal rules restrict any use of the information to criminally investigate or prosecute any alcohol or drug abuse patient.[facility] HospitalIn the event this information is protected by the Federal Confidentiality of Alcohol and Drug Abuse Patient Records regulations: The Federal rules restrict any use of the information to criminally investigate or prosecute any alcohol or drug abuse patient.[facility] HospitalIn the event this information is protected by the Federal Confidentiality of Alcohol and Drug Abuse Patient Records regulations: The Federal rules restrict any use of the information to criminally investigate or prosecute any alcohol or drug abuse patient.[facility] HospitalIn the event this information is protected by the Federal Confidentiality of Alcohol and Drug Abuse Patient Records regulations: The Federal rules restrict any use of the information to criminally investigate or prosecute any alcohol or drug abuse patient.[facility] HospitalIn the event this information is protected by the Federal Confidentiality of Alcohol and Drug Abuse Patient Records regulations: The Federal rules restrict any use of the information to criminally investigate or prosecute any alcohol or drug abuse patient.[facility] HospitalIn the event this information is protected by the Federal Confidentiality of Alcohol and Drug Abuse Patient Records regulations: The Federal rules restrict any use of the information to criminally investigate or prosecute any alcohol or drug abuse patient.[facility] HospitalIn the event this information is protected by the Federal Confidentiality of Alcohol and Drug Abuse Patient Records regulations: The Federal rules restrict any use of the information to criminally investigate or prosecute any alcohol or drug abuse patient.[facility] HospitalIn the event this information is protected by the Federal Confidentiality of Alcohol and Drug Abuse Patient Records regulations: The Federal rules restrict any use of the information to criminally investigate or prosecute any alcohol or drug abuse patient.[facility] HospitalIn the event this information is protected by the Federal Confidentiality of Alcohol and Drug Abuse Patient Records regulations: The Federal rules restrict any use of the information to criminally investigate or prosecute any alcohol or drug abuse patient.[facility] HospitalIn the event this information is protected by the Federal Confidentiality of Alcohol and Drug Abuse Patient Records regulations: The Federal rules restrict any use of the information to criminally investigate or prosecute any alcohol or drug abuse patient.[facility] HospitalIn the event this information is protected by the Federal Confidentiality of Alcohol and Drug Abuse Patient Records regulations: The Federal rules restrict any use of the information to criminally investigate or prosecute any alcohol or drug abuse patient.[facility] HospitalIn the event this information is protected by the Federal Confidentiality of Alcohol and Drug Abuse Patient Records regulations: The Federal rules restrict any use of the information to criminally investigate or prosecute any alcohol or drug abuse patient.[facility] HospitalIn the event this information is protected by the Federal Confidentiality of Alcohol and Drug Abuse Patient Records regulations: The Federal rules restrict any use of the information to criminally investigate or prosecute any alcohol or drug abuse patient.[facility] HospitalIn the event this information is protected by the Federal Confidentiality of Alcohol and Drug Abuse Patient Records regulations: The Federal rules restrict any use of the information to criminally investigate or prosecute any alcohol or drug abuse patient.[facility] HospitalIn the event this information is protected by the Federal Confidentiality of Alcohol and Drug Abuse Patient Records regulations: The Federal rules restrict any use of the information to criminally investigate or prosecute any alcohol or drug abuse patient.[facility] HospitalIn the event this information is protected by the Federal Confidentiality of Alcohol and Drug Abuse Patient Records regulations: The Federal rules restrict any use of the information to criminally investigate or prosecute any alcohol or drug abuse patient.[facility] HospitalIn the event this information is protected by the Federal Confidentiality of Alcohol and Drug Abuse Patient Records regulations: The Federal rules restrict any use of the information to criminally investigate or prosecute any alcohol or drug abuse patient.[facility] HospitalIn the event this information is protected by the Federal Confidentiality of Alcohol and Drug Abuse Patient Records regulations: The Federal rules restrict any use of the information to criminally investigate or prosecute any alcohol or drug abuse patient.[facility] HospitalIn the event this information is protected by the Federal Confidentiality of Alcohol and Drug Abuse Patient Records regulations: The Federal rules restrict any use of the information to criminally investigate or prosecute any alcohol or drug abuse patient.[facility] HospitalIn the event this information is protected by the Federal Confidentiality of Alcohol and Drug Abuse Patient Records regulations: The Federal rules restrict any use of the information to criminally investigate or prosecute any alcohol or drug abuse patient.[facility] HospitalIn the event this information is protected by the Federal Confidentiality of Alcohol and Drug Abuse Patient Records regulations: The Federal rules restrict any use of the information to criminally investigate or prosecute any alcohol or drug abuse patient.[facility] HospitalIn the event this information is protected by the Federal Confidentiality of Alcohol and Drug Abuse Patient Records regulations: The Federal rules restrict any use of the information to criminally investigate or prosecute any alcohol or drug abuse patient.[facility] HospitalIn the event this information is protected by the Federal Confidentiality of Alcohol and Drug Abuse Patient Records regulations: The Federal rules restrict any use of the information to criminally investigate or prosecute any alcohol or drug abuse patient.[facility] HospitalIn the event this information is protected by the Federal Confidentiality of Alcohol and Drug Abuse Patient Records regulations: The Federal rules restrict any use of the information to criminally investigate or prosecute any alcohol or drug abuse patient.[facility] HospitalIn the event this information is protected by the Federal Confidentiality of Alcohol and Drug Abuse Patient Records regulations: The Federal rules restrict any use of the information to criminally investigate or prosecute any alcohol or drug abuse patient.[facility] HospitalIn the event this information is protected by the Federal Confidentiality of Alcohol and Drug Abuse Patient Records regulations: The Federal rules restrict any use of the information to criminally investigate or prosecute any alcohol or drug abuse patient.[facility] HospitalIn the event this information is protected by the Federal Confidentiality of Alcohol and Drug Abuse Patient Records regulations: The Federal rules restrict any use of the information to criminally investigate or prosecute any alcohol or drug abuse patient.[facility] HospitalIn the event this information is protected by the Federal Confidentiality of Alcohol and Drug Abuse Patient Records regulations: The Federal rules restrict any use of the information to criminally investigate or prosecute any alcohol or drug abuse patient.[facility] HospitalIn the event this information is protected by the Federal Confidentiality of Alcohol and Drug Abuse Patient Records regulations: The Federal rules restrict any use of the information to criminally investigate or prosecute any alcohol or drug abuse patient.[facility] HospitalIn the event this information is protected by the Federal Confidentiality of Alcohol and Drug Abuse Patient Records regulations: The Federal rules restrict any use of the information to criminally investigate or prosecute any alcohol or drug abuse patient.[facility] HospitalIn the event this information is protected by the Federal Confidentiality of Alcohol and Drug Abuse Patient Records regulations: The Federal rules restrict any use of the information to criminally investigate or prosecute any alcohol or drug abuse patient.[facility] HospitalIn the event this information is protected by the Federal Confidentiality of Alcohol and Drug Abuse Patient Records regulations: The Federal rules restrict any use of the information to criminally investigate or prosecute any alcohol or drug abuse patient.[facility] HospitalIn the event this information is protected by the Federal Confidentiality of Alcohol and Drug Abuse Patient Records regulations: The Federal rules restrict any use of the information to criminally investigate or prosecute any alcohol or drug abuse patient.[facility] HospitalIn the event this information is protected by the Federal Confidentiality of Alcohol and Drug Abuse Patient Records regulations: The Federal rules restrict any use of the information to criminally investigate or prosecute any alcohol or drug abuse patient.[facility] HospitalIn the event this information is protected by the Federal Confidentiality of Alcohol and Drug Abuse Patient Records regulations: The Federal rules restrict any use of the information to criminally investigate or prosecute any alcohol or drug abuse patient.[facility] HospitalIn the event this information is protected by the Federal Confidentiality of Alcohol and Drug Abuse Patient Records regulations: The Federal rules restrict any use of the information to criminally investigate or prosecute any alcohol or drug abuse patient.[facility] HospitalIn the event this information is protected by the Federal Confidentiality of Alcohol and Drug Abuse Patient Records regulations: The Federal rules restrict any use of the information to criminally investigate or prosecute any alcohol or drug abuse patient.[facility] HospitalIn the event this information is protected by the Federal Confidentiality of Alcohol and Drug Abuse Patient Records regulations: The Federal rules restrict any use of the information to criminally investigate or prosecute any alcohol or drug abuse patient.[facility] HospitalIn the event this information is protected by the Federal Confidentiality of Alcohol and Drug Abuse Patient Records regulations: The Federal rules restrict any use of the information to criminally investigate or prosecute any alcohol or drug abuse patient.[facility] HospitalIn the event this information is protected by the Federal Confidentiality of Alcohol and Drug Abuse Patient Records regulations: The Federal rules restrict any use of the information to criminally investigate or prosecute any alcohol or drug abuse patient.[facility] HospitalIn the event this information is protected by the Federal Confidentiality of Alcohol and Drug Abuse Patient Records regulations: The Federal rules restrict any use of the information to criminally investigate or prosecute any alcohol or drug abuse patient.[facility] HospitalIn the event this information is protected by the Federal Confidentiality of Alcohol and Drug Abuse Patient Records regulations: The Federal rules restrict any use of the information to criminally investigate or prosecute any alcohol or drug abuse patient.[facility] HospitalIn the event this information is protected by the Federal Confidentiality of Alcohol and Drug Abuse Patient Records regulations: The Federal rules restrict any use of the information to criminally investigate or prosecute any alcohol or drug abuse patient.[facility] HospitalIn the event this information is protected by the Federal Confidentiality of Alcohol and Drug Abuse Patient Records regulations: The Federal rules restrict any use of the information to criminally investigate or prosecute any alcohol or drug abuse patient.[facility] HospitalIn the event this information is protected by the Federal Confidentiality of Alcohol and Drug Abuse Patient Records regulations: The Federal rules restrict any use of the information to criminally investigate or prosecute any alcohol or drug abuse patient.[facility] HospitalIn the event this information is protected by the Federal Confidentiality of Alcohol and Drug Abuse Patient Records regulations: The Federal rules restrict any use of the information to criminally investigate or prosecute any alcohol or drug abuse patient.[facility] HospitalIn the event this information is protected by the Federal Confidentiality of Alcohol and Drug Abuse Patient Records regulations: The Federal rules restrict any use of the information to criminally investigate or prosecute any alcohol or drug abuse patient.[facility] HospitalIn the event this information is protected by the Federal Confidentiality of Alcohol and Drug Abuse Patient Records regulations: The Federal rules restrict any use of the information to criminally investigate or prosecute any alcohol or drug abuse patient.[facility] HospitalIn the event this information is protected by the Federal Confidentiality of Alcohol and Drug Abuse Patient Records regulations: The Federal rules restrict any use of the information to criminally investigate or prosecute any alcohol or drug abuse patient.[facility] HospitalIn the event this information is protected by the Federal Confidentiality of Alcohol and Drug Abuse Patient Records regulations: The Federal rules restrict any use of the information to criminally investigate or prosecute any alcohol or drug abuse patient.[facility] HospitalIn the event this information is protected by the Federal Confidentiality of Alcohol and Drug Abuse Patient Records regulations: The Federal rules restrict any use of the information to criminally investigate or prosecute any alcohol or drug abuse patient.[facility] HospitalIn the event this information is protected by the Federal Confidentiality of Alcohol and Drug Abuse Patient Records regulations: The Federal rules restrict any use of the information to criminally investigate or prosecute any alcohol or drug abuse patient.[facility] HospitalIn the event this information is protected by the Federal Confidentiality of Alcohol and Drug Abuse Patient Records regulations: The Federal rules restrict any use of the information to criminally investigate or prosecute any alcohol or drug abuse patient.[facility] HospitalIn the event this information is protected by the Federal Confidentiality of Alcohol and Drug Abuse Patient Records regulations: The Federal rules restrict any use of the information to criminally investigate or prosecute any alcohol or drug abuse patient.[facility] HospitalIn the event this information is protected by the Federal Confidentiality of Alcohol and Drug Abuse Patient Records regulations: The Federal rules restrict any use of the information to criminally investigate or prosecute any alcohol or drug abuse patient.[facility] HospitalIn the event this information is protected by the Federal Confidentiality of Alcohol and Drug Abuse Patient Records regulations: The Federal rules restrict any use of the information to criminally investigate or prosecute any alcohol or drug abuse patient.[facility] HospitalIn the event this information is protected by the Federal Confidentiality of Alcohol and Drug Abuse Patient Records regulations: The Federal rules restrict any use of the information to criminally investigate or prosecute any alcohol or drug abuse patient.[facility] HospitalIn the event this information is protected by the Federal Confidentiality of Alcohol and Drug Abuse Patient Records regulations: The Federal rules restrict any use of the information to criminally investigate or prosecute any alcohol or drug abuse patient.[facility] HospitalIn the event this information is protected by the Federal Confidentiality of Alcohol and Drug Abuse Patient Records regulations: The Federal rules restrict any use of the information to criminally investigate or prosecute any alcohol or drug abuse patient.[facility] HospitalIn the event this information is protected by the Federal Confidentiality of Alcohol and Drug Abuse Patient Records regulations: The Federal rules restrict any use of the information to criminally investigate or prosecute any alcohol or drug abuse patient.[facility] HospitalIn the event this information is protected by the Federal Confidentiality of Alcohol and Drug Abuse Patient Records regulations: The Federal rules restrict any use of the information to criminally investigate or prosecute any alcohol or drug abuse patient.[facility] HospitalIn the event this information is protected by the Federal Confidentiality of Alcohol and Drug Abuse Patient Records regulations: The Federal rules restrict any use of the information to criminally investigate or prosecute any alcohol or drug abuse patient.[facility] HospitalIn the event this information is protected by the Federal Confidentiality of Alcohol and Drug Abuse Patient Records regulations: The Federal rules restrict any use of the information to criminally investigate or prosecute any alcohol or drug abuse patient.[facility] HospitalIn the event this information is protected by the Federal Confidentiality of Alcohol and Drug Abuse Patient Records regulations: The Federal rules restrict any use of the information to criminally investigate or prosecute any alcohol or drug abuse patient.[facility] HospitalIn the event this information is protected by the Federal Confidentiality of Alcohol and Drug Abuse Patient Records regulations: The Federal rules restrict any use of the information to criminally investigate or prosecute any alcohol or drug abuse patient.[facility] HospitalIn the event this information is protected by the Federal Confidentiality of Alcohol and Drug Abuse Patient Records regulations: The Federal rules restrict any use of the information to criminally investigate or prosecute any alcohol or drug abuse patient.[facility] HospitalIn the event this information is protected by the Federal Confidentiality of Alcohol and Drug Abuse Patient Records regulations: The Federal rules restrict any use of the information to criminally investigate or prosecute any alcohol or drug abuse patient.[facility] HospitalIn the event this information is protected by the Federal Confidentiality of Alcohol and Drug Abuse Patient Records regulations: The Federal rules restrict any use of the information to criminally investigate or prosecute any alcohol or drug abuse patient.[facility] HospitalIn the event this information is protected by the Federal Confidentiality of Alcohol and Drug Abuse Patient Records regulations: The Federal rules restrict any use of the information to criminally investigate or prosecute any alcohol or drug abuse patient.[facility] HospitalIn the event this information is protected by the Federal Confidentiality of Alcohol and Drug Abuse Patient Records regulations: The Federal rules restrict any use of the information to criminally investigate or prosecute any alcohol or drug abuse patient.[facility] HospitalIn the event this information is protected by the Federal Confidentiality of Alcohol and Drug Abuse Patient Records regulations: The Federal rules restrict any use of the information to criminally investigate or prosecute any alcohol or drug abuse patient.[facility] HospitalIn the event this information is protected by the Federal Confidentiality of Alcohol and Drug Abuse Patient Records regulations: The Federal rules restrict any use of the information to criminally investigate or prosecute any alcohol or drug abuse patient.[facility] HospitalIn the event this information is protected by the Federal Confidentiality of Alcohol and Drug Abuse Patient Records regulations: The Federal rules restrict any use of the information to criminally investigate or prosecute any alcohol or drug abuse patient.[facility] HospitalIn the event this information is protected by the Federal Confidentiality of Alcohol and Drug Abuse Patient Records regulations: The Federal rules restrict any use of the information to criminally investigate or prosecute any alcohol or drug abuse patient.[facility] HospitalIn the event this information is protected by the Federal Confidentiality of Alcohol and Drug Abuse Patient Records regulations: The Federal rules restrict any use of the information to criminally investigate or prosecute any alcohol or drug abuse patient.[facility] HospitalIn the event this information is protected by the Federal Confidentiality of Alcohol and Drug Abuse Patient Records regulations: The Federal rules restrict any use of the information to criminally investigate or prosecute any alcohol or drug abuse patient.[facility] HospitalIn the event this information is protected by the Federal Confidentiality of Alcohol and Drug Abuse Patient Records regulations: The Federal rules restrict any use of the information to criminally investigate or prosecute any alcohol or drug abuse patient.[facility] HospitalIn the event this information is protected by the Federal Confidentiality of Alcohol and Drug Abuse Patient Records regulations: The Federal rules restrict any use of the information to criminally investigate or prosecute any alcohol or drug abuse patient.[facility] HospitalIn the event this information is protected by the Federal Confidentiality of Alcohol and Drug Abuse Patient Records regulations: The Federal rules restrict any use of the information to criminally investigate or prosecute any alcohol or drug abuse patient.[facility] HospitalIn the event this information is protected by the Federal Confidentiality of Alcohol and Drug Abuse Patient Records regulations: The Federal rules restrict any use of the information to criminally investigate or prosecute any alcohol or drug abuse patient.[facility] HospitalIn the event this information is protected by the Federal Confidentiality of Alcohol and Drug Abuse Patient Records regulations: The Federal rules restrict any use of the information to criminally investigate or prosecute any alcohol or drug abuse patient.[facility] HospitalIn the event this information is protected by the Federal Confidentiality of Alcohol and Drug Abuse Patient Records regulations: The Federal rules restrict any use of the information to criminally investigate or prosecute any alcohol or drug abuse patient.[facility] HospitalIn the event this information is protected by the Federal Confidentiality of Alcohol and Drug Abuse Patient Records regulations: The Federal rules restrict any use of the information to criminally investigate or prosecute any alcohol or drug abuse patient.[facility] HospitalIn the event this information is protected by the Federal Confidentiality of Alcohol and Drug Abuse Patient Records regulations: The Federal rules restrict any use of the information to criminally investigate or prosecute any alcohol or drug abuse patient.[facility] HospitalIn the event this information is protected by the Federal Confidentiality of Alcohol and Drug Abuse Patient Records regulations: The Federal rules restrict any use of the information to criminally investigate or prosecute any alcohol or drug abuse patient.[facility] HospitalIn the event this information is protected by the Federal Confidentiality of Alcohol and Drug Abuse Patient Records regulations: The Federal rules restrict any use of the information to criminally investigate or prosecute any alcohol or drug abuse patient.[facility] HospitalIn the event this information is protected by the Federal Confidentiality of Alcohol and Drug Abuse Patient Records regulations: The Federal rules restrict any use of the information to criminally investigate or prosecute any alcohol or drug abuse patient.[facility] HospitalIn the event this information is protected by the Federal Confidentiality of Alcohol and Drug Abuse Patient Records regulations: The Federal rules restrict any use of the information to criminally investigate or prosecute any alcohol or drug abuse patient.[facility] HospitalIn the event this information is protected by the Federal Confidentiality of Alcohol and Drug Abuse Patient Records regulations: The Federal rules restrict any use of the information to criminally investigate or prosecute any alcohol or drug abuse patient.[facility] HospitalIn the event this information is protected by the Federal Confidentiality of Alcohol and Drug Abuse Patient Records regulations: The Federal rules restrict any use of the information to criminally investigate or prosecute any alcohol or drug abuse patient.[facility] HospitalIn the event this information is protected by the Federal Confidentiality of Alcohol and Drug Abuse Patient Records regulations: The Federal rules restrict any use of the information to criminally investigate or prosecute any alcohol or drug abuse patient.[facility] HospitalIn the event this information is protected by the Federal Confidentiality of Alcohol and Drug Abuse Patient Records regulations: The Federal rules restrict any use of the information to criminally investigate or prosecute any alcohol or drug abuse patient.[facility] HospitalIn the event this information is protected by the Federal Confidentiality of Alcohol and Drug Abuse Patient Records regulations: The Federal rules restrict any use of the information to criminally investigate or prosecute any alcohol or drug abuse patient.[facility] HospitalIn the event this information is protected by the Federal Confidentiality of Alcohol and Drug Abuse Patient Records regulations: The Federal rules restrict any use of the information to criminally investigate or prosecute any alcohol or drug abuse patient.[facility] HospitalIn the event this information is protected by the Federal Confidentiality of Alcohol and Drug Abuse Patient Records regulations: The Federal rules restrict any use of the information to criminally investigate or prosecute any alcohol or drug abuse patient.[facility] HospitalIn the event this information is protected by the Federal Confidentiality of Alcohol and Drug Abuse Patient Records regulations: The Federal rules restrict any use of the information to criminally investigate or prosecute any alcohol or drug abuse patient.[facility] HospitalIn the event this information is protected by the Federal Confidentiality of Alcohol and Drug Abuse Patient Records regulations: The Federal rules restrict any use of the information to criminally investigate or prosecute any alcohol or drug abuse patient.[facility] HospitalIn the event this information is protected by the Federal Confidentiality of Alcohol and Drug Abuse Patient Records regulations: The Federal rules restrict any use of the information to criminally investigate or prosecute any alcohol or drug abuse patient.[facility] HospitalIn the event this information is protected by the Federal Confidentiality of Alcohol and Drug Abuse Patient Records regulations: The Federal rules restrict any use of the information to criminally investigate or prosecute any alcohol or drug abuse patient.[facility] HospitalIn the event this information is protected by the Federal Confidentiality of Alcohol and Drug Abuse Patient Records regulations: The Federal rules restrict any use of the information to criminally investigate or prosecute any alcohol or drug abuse patient.[facility] HospitalIn the event this information is protected by the Federal Confidentiality of Alcohol and Drug Abuse Patient Records regulations: The Federal rules restrict any use of the information to criminally investigate or prosecute any alcohol or drug abuse patient.[facility] HospitalIn the event this information is protected by the Federal Confidentiality of Alcohol and Drug Abuse Patient Records regulations: The Federal rules restrict any use of the information to criminally investigate or prosecute any alcohol or drug abuse patient.[facility] HospitalIn the event this information is protected by the Federal Confidentiality of Alcohol and Drug Abuse Patient Records regulations: The Federal rules restrict any use of the information to criminally investigate or prosecute any alcohol or drug abuse patient.[facility] HospitalIn the event this information is protected by the Federal Confidentiality of Alcohol and Drug Abuse Patient Records regulations: The Federal rules restrict any use of the information to criminally investigate or prosecute any alcohol or drug abuse patient.[facility] HospitalIn the event this information is protected by the Federal Confidentiality of Alcohol and Drug Abuse Patient Records regulations: The Federal rules restrict any use of the information to criminally investigate or prosecute any alcohol or drug abuse patient.[facility] HospitalIn the event this information is protected by the Federal Confidentiality of Alcohol and Drug Abuse Patient Records regulations: The Federal rules restrict any use of the information to criminally investigate or prosecute any alcohol or drug abuse patient.[facility] HospitalIn the event this information is protected by the Federal Confidentiality of Alcohol and Drug Abuse Patient Records regulations: The Federal rules restrict any use of the information to criminally investigate or prosecute any alcohol or drug abuse patient.[facility] HospitalIn the event this information is protected by the Federal Confidentiality of Alcohol and Drug Abuse Patient Records regulations: The Federal rules restrict any use of the information to criminally investigate or prosecute any alcohol or drug abuse patient.[facility] HospitalIn the event this information is protected by the Federal Confidentiality of Alcohol and Drug Abuse Patient Records regulations: The Federal rules restrict any use of the information to criminally investigate or prosecute any alcohol or drug abuse patient.[facility] HospitalIn the event this information is protected by the Federal Confidentiality of Alcohol and Drug Abuse Patient Records regulations: The Federal rules restrict any use of the information to criminally investigate or prosecute any alcohol or drug abuse patient.[facility] HospitalIn the event this information is protected by the Federal Confidentiality of Alcohol and Drug Abuse Patient Records regulations: The Federal rules restrict any use of the information to criminally investigate or prosecute any alcohol or drug abuse patient.[facility] HospitalIn the event this information is protected by the Federal Confidentiality of Alcohol and Drug Abuse Patient Records regulations: The Federal rules restrict any use of the information to criminally investigate or prosecute any alcohol or drug abuse patient.[facility] HospitalIn the event this information is protected by the Federal Confidentiality of Alcohol and Drug Abuse Patient Records regulations: The Federal rules restrict any use of the information to criminally investigate or prosecute any alcohol or drug abuse patient.[facility] HospitalIn the event this information is protected by the Federal Confidentiality of Alcohol and Drug Abuse Patient Records regulations: The Federal rules restrict any use of the information to criminally investigate or prosecute any alcohol or drug abuse patient.[facility] HospitalIn the event this information is protected by the Federal Confidentiality of Alcohol and Drug Abuse Patient Records regulations: The Federal rules restrict any use of the information to criminally investigate or prosecute any alcohol or drug abuse patient.[facility] HospitalIn the event this information is protected by the Federal Confidentiality of Alcohol and Drug Abuse Patient Records regulations: The Federal rules restrict any use of the information to criminally investigate or prosecute any alcohol or drug abuse patient.[facility] HospitalIn the event this information is protected by the Federal Confidentiality of Alcohol and Drug Abuse Patient Records regulations: The Federal rules restrict any use of the information to criminally investigate or prosecute any alcohol or drug abuse patient.[facility] HospitalIn the event this information is protected by the Federal Confidentiality of Alcohol and Drug Abuse Patient Records regulations: The Federal rules restrict any use of the information to criminally investigate or prosecute any alcohol or drug abuse patient.[facility] HospitalIn the event this information is protected by the Federal Confidentiality of Alcohol and Drug Abuse Patient Records regulations: The Federal rules restrict any use of the information to criminally investigate or prosecute any alcohol or drug abuse patient.[facility] HospitalIn the event this information is protected by the Federal Confidentiality of Alcohol and Drug Abuse Patient Records regulations: The Federal rules restrict any use of the information to criminally investigate or prosecute any alcohol or drug abuse patient.[facility] HospitalIn the event this information is protected by the Federal Confidentiality of Alcohol and Drug Abuse Patient Records regulations: The Federal rules restrict any use of the information to criminally investigate or prosecute any alcohol or drug abuse patient.[facility] HospitalIn the event this information is protected by the Federal Confidentiality of Alcohol and Drug Abuse Patient Records regulations: The Federal rules restrict any use of the information to criminally investigate or prosecute any alcohol or drug abuse patient.[facility] Care Teams (unrecognized sec tion and content) Dye Lab Technician Relationship Specialty Start Date End Date Milton Madison PCP - General Family Practice 01/05/17 Gasper Fong Referring Orthopedics 01/05/17 Mert Mcgovern MD Radiation Oncology 03/08/17 Stacy Adhikari MD [address] [place] [address] Physician Hematology/Oncology 03/20/19 Dye Lab Technician Relationship Specialty Start Date End Date Milton Madison PCP - General Family Practice 01/05/17 Gasper Fong Referring Orthopedics 01/05/17 Mert Mcgovern MD Radiation Oncology 03/08/17 Stacy Adhikari MD [address] [place] [address] Physician Hematology/Oncology 03/20/19 Dye Lab Technician Relationship Specialty Start Date End Date Milton Madison PCP - General Family Practice 01/05/17 Gasper Fong Referring Orthopedics 01/05/17 Mert Mcgovern MD Radiation Oncology 03/08/17 Stacy Adhikari MD [address] [place] [address] Physician Hematology/Oncology 03/20/19 Dye Lab Technician Relationship Specialty Start Date End Date Milton Madison PCP - General Family Practice 01/05/17 Gasper Fong Referring Orthopedics 01/05/17 Mert Mcgovern MD Radiation Oncology 03/08/17 Stacy Adhikari MD [address] [place] [address] Physician Hematology/Oncology 03/20/19 Dye Lab Technician Relationship Specialty Start Date End Date Milton Madison Stevie PCP - General Family Practice 01/05/17 Gasper Fong Referring Orthopedics 01/05/17 Mert Mcgovern MD Radiation Oncology 03/08/17 Stacy Adhikari MD [address] [place] [address] Physician Hematology/Oncology 03/20/19 Dye Lab Technician Relationship Specialty Start Date End Date Milton Madison PCP - General Family Practice 01/05/17 Gasper Fong Referring Orthopedics 01/05/17 Mert Mcgovern MD Radiation Oncology 03/08/17 Stacy Adhikari MD [address] [place] [address] Physician Hematology/Oncology 03/20/19 Dye Lab Technician Relationship Specialty Start Date End Date Milton Madison PCP - General Family Practice 01/05/17 Gasper Fong Referring Orthopedics 01/05/17 Mert Mcgovern MD Radiation Oncology 03/08/17 Stacy Adhikari MD [address] [place] [address] Physician Hematology/Oncology 03/20/19 Dye Lab Technician Relationship Specialty Start Date End Date PavMilton courtney Stevie PCP - General Family Practice 01/05/17 Gasper Fong Referring Orthopedics 01/05/17 Mert Mcgovern MD Radiation Oncology 03/08/17 Stacy Adhikari MD [address] [place], [place] [id number] Physician Hematology/Oncology 03/20/19 Team Status: Inactive Member Role Status Dates Finn Mejais DO Attending Provider Active PHYSICIAN NO FAMILY Primary Care Provider Active Team Status: Active Member Role Status Dates PHYSICIAN NO FAMILY Primary Care Provider Active Dye Lab Technician Relationship Specialty Start Date End Date Gricelda Milton Hubbard PCP - General Family Medicine 01/05/17 Gasper Fong Referring Orthopedics 01/05/17 Mert Mcgovern MD Radiation Oncology 03/08/17 Stacy Adhikari MD [address] [place] [address] Physician Hematology/Oncology 03/20/19 Dye Lab Technician Relationship Specialty Start Date End Date Milton Madison Stevie PCP - General Family Medicine 01/05/17 Gasper Fong Referring Orthopedics 01/05/17 Mert Mcgovern MD Radiation Oncology 03/08/17 Stacy Adhikari MD [address] [place] [address] Physician Hematology/Oncology 03/20/19 Dye Lab Technician Relationship Specialty Start Date End Date Milton Madison Stevie PCP - General Family Medicine 01/05/17 Gasper Fong Referring Orthopedics 01/05/17 Mert Mcgovern MD Radiation Oncology 03/08/17 Stacy Adhikari MD [address] [place] [address] Physician Hematology/Oncology 03/20/19 Dye Lab Technician Relationship Specialty Start Date End Date Gricelda Milton Hubbard PCP - General Family Medicine 01/05/17 Gasper Fong Referring Orthopedics 01/05/17 Mert Mcgovern MD Radiation Oncology 03/08/17 Stacy Adhikari MD [address] [place] [address] Physician Hematology/Oncology 03/20/19 Dye Lab Technician Relationship Specialty Start Date End Date Juiceroz Milton Hubbard PCP - General Family Medicine 01/05/17 Gasper Fong Referring Orthopedics 01/05/17 Mert Mcgovern MD Radiation Oncology 03/08/17 Stacy Adhikari MD [address] [place] [address] Physician Hematology/Oncology 03/20/19 Dye Lab Technician Relationship Specialty Start Date End Date Milton Madison Stevie PCP - General Family Medicine 01/05/17 Gasper Fong Referring Orthopedics 01/05/17 Mert Mcgovern MD Radiation Oncology 03/08/17 Stacy Adhikari MD [address] [place] [address] Physician Hematology/Oncology 03/20/19 Dye Lab Technician Relationship Specialty Start Date End Date Milton Madison PCP - General Family Medicine 01/05/17 Gasper Fong Referring Orthopedics 01/05/17 Mert Mcgovern MD Radiation Oncology 03/08/17 Stacy Adhikari MD [address] [place] [address] Physician Hematology/Oncology 03/20/19 Dye Lab Technician Relationship Specialty Start Date End Date Milton Madison PCP - General Family Medicine 01/05/17 Gasper Fong Referring Orthopedics 01/05/17 Mert Mcgovern MD Radiation Oncology 03/08/17 Stacy Adhikari MD [address] [place] [address] Physician Hematology/Oncology 03/20/19 Dye Lab Technician Relationship Specialty Start Date End Date Milton Madison PCP - General Family Medicine 01/05/17 Gasper Fong Referring Orthopedics 01/05/17 Mert Mcgovern MD Radiation Oncology 03/08/17 Stacy Adhikari MD [address] [place] [address] Physician Hematology/Oncology 03/20/19 Dye Lab Technician Relationship Specialty Start Date End Date Gasper Fong Referring Orthopedics 01/05/17 Mert Mcgovern MD Radiation Oncology 03/08/17 Stacy Adhikari MD [address] [place] [address] Physician Hematology/Oncology 03/20/19 Dye Lab Technician Relationship Specialty Start Date End Date Gasper Fong Referring Orthopedics 01/05/17 Mert Mcgovern MD Radiation Oncology 03/08/17 Stacy Adhikari MD [address] [place] [address] Physician Hematology/Oncology 03/20/19 Dye Lab Technician Relationship Specialty Start Date End Date Gasper Fong Referring Orthopedics 01/05/17 Mert Mcgovern MD Radiation Oncology 03/08/17 Stacy Adhikari MD [address] [facility] [place] [address] Physician Hematology/Oncology 03/20/19 Stacy Adhikari MD [address] [facility] [place] [address] Referring Hematology/Oncology 08/23/22 Dye Lab Technician Relationship Specialty Start Date End Date Gasper Fong Referring Orthopedics 01/05/17 Mert Mcgovern MD Radiation Oncology 03/08/17 Stacy Adhikari MD [address] [place] [address] Physician Hematology/Oncology 03/20/19 Stacy Adhikari MD [address] [place] [address] Referring Hematology/Oncology 08/23/22 Judi Howell [address] [place] [address] Family Medicine 09/21/22 Dye Lab Technician Relationship Specialty Start Date End Date Gasper Fong Referring Orthopedics 01/05/17 Mert Mcgovern MD Radiation Oncology 03/08/17 Stacy Adhikari MD [address] [facility] [place] [address] Physician Hematology/Oncology 03/20/19 Stacy Adhikari MD [address] [facility] [place] [address] Referring Hematology/Oncology 08/23/22 Judi Howell [address] [place] [id number] Family Medicine 09/21/22 Dye Lab Technician Relationship Specialty Start Date End Date Gasper Fong Referring Orthopedics 01/05/17 Mert Mcgovern MD Radiation Oncology 03/08/17 Stacy Adhikari MD [address] [place] [address] Physician Hematology/Oncology 03/20/19 Stacy Adhikari MD [address] [facility] [place] [address] Referring Hematology/Oncology 08/23/22 Judi Howell [address] [place] [id number] Family Medicine 09/21/22 Dye Lab Technician Relationship Specialty Start Date End Date AjitGasper mauriciow Referring Orthopedics 01/05/17 Mert Mcgovern MD Radiation Oncology 03/08/17 Stacy Adhikari MD [address] [facility] [place] [address] Physician Hematology/Oncology 03/20/19 Stacy Adhikari MD [address] [facility] [place] [address] Referring Hematology/Oncology 08/23/22 Judi Howell [address] [place] [phone] Family Medicine 09/21/22 Dye Lab Technician Relationship Specialty Start Date End Date Gasper Fongw Referring Orthopedics 01/05/17 Mert Mcgovern MD Radiation Oncology 03/08/17 Stacy Adhikari MD [address] [facility] [place] [address] Physician Hematology/Oncology 03/20/19 Stacy Adhikari MD [address] [facility] [place] [address] Referring Hematology/Oncology 08/23/22 Judi Howell [address] [place] [address] Family Medicine 09/21/22 Dye Lab Technician Relationship Specialty Start Date End Date Gasper Fong Referring Orthopedics 01/05/17 Mert Mcgovern MD Radiation Oncology 03/08/17 Stacy Adhikari MD [address] [place] [address] Physician Hematology/Oncology 03/20/19 Stacy Adhikari MD [address] [employer] [place] [address] Referring Hematology/Oncology 08/23/22 Judi Howell [address] [place] [address] Family Medicine 09/21/22 Dye Lab Technician Relationship Specialty Start Date End Date Gasper Fong DO Referring Orthopedics 01/05/17 Mert Mcgovern MD Radiation Oncology 03/08/17 Stacy Adhikari MD [address] [place] [address] Physician Hematology/Oncology 03/20/19 Stacy Adhikari MD [address] [place] [address] Referring Hematology/Oncology 08/23/22 Judi Howell [address] [place] [address] Family Medicine 09/21/22 Dye Lab Technician Relationship Specialty Start Date End Date Gasper Fong DO Referring Orthopedics 01/05/17 Mert Mcgovern MD Radiation Oncology 03/08/17 Stacy Adhikari MD [address] [place] [address] Physician Hematology/Oncology 03/20/19 Stacy Adhikari MD [address] [place] [address] Referring Hematology/Oncology 08/23/22 Judi Howell [address] [place] [address] Family Medicine 09/21/22 Dye Lab Technician Relationship Specialty Start Date End Date Gasper Fong DO Referring Orthopedics 01/05/17 Mert Mcgovern MD Radiation Oncology 03/08/17 Stacy Adhikari MD [address] [facility] [place] [address] Physician Hematology/Oncology 03/20/19 Stacy Adhikari MD [address] [facility] [place] [address] Referring Hematology/Oncology 08/23/22 Judi Howell [address] [place] [phone] Family Medicine 09/21/22 Dye Lab Technician Relationship Specialty Start Date End Date Gasper Fong DO Referring Orthopedics 01/05/17 Mert Mcgovern MD Radiation Oncology 03/08/17 Stacy Adhikari MD [address] [facility] [place] [address] Physician Hematology/Oncology 03/20/19 Stacy Adhikari MD [address] [facility] [place] [address] Referring Hematology/Oncology 08/23/22 Judi Howell [address] [place] [phone] Family Medicine 09/21/22 Dye Lab Technician Relationship Specialty Start Date End Date Gasper Fong DO Referring Orthopedics 01/05/17 Mert Mcgovern MD Radiation Oncology 03/08/17 Stacy Adhikari MD [address] [facility] [place] [address] Physician Hematology/Oncology 03/20/19 Stacy Adhikari MD [address] [facility] [place] [address] Referring Hematology/Oncology 08/23/22 Judi Howell [address] [place] [phone] Family Medicine 09/21/22 Dye Lab Technician Relationship Specialty Start Date End Date Gasper Fong DO Referring Orthopedics 01/05/17 Mert Mcgovern MD Radiation Oncology 03/08/17 Stacy Adhikari MD [address] [facility] [place] [address] Physician Hematology/Oncology 03/20/19 Stacy Adhikari MD [address] [facility] [place] [address] Referring Hematology/Oncology 08/23/22 Judi Howell [address] [place] [phone] Family Medicine 09/21/22 Dye Lab Technician Relationship Specialty Start Date End Date Gasper Fong DO Referring Orthopedics 01/05/17 Mert Mcgovern MD Radiation Oncology 03/08/17 Stacy Adhikari MD [address] [facility] [place] [address] Physician Hematology/Oncology 03/20/19 Stacy Adhikari MD [address] [place] [address] Referring Hematology/Oncology 08/23/22 Judi Howell [address] [place] [phone] Family Medicine 09/21/22 Dye Lab Technician Relationship Specialty Start Date End Date Gasper Fong DO Referring Orthopedics 01/05/17 Mert Mcgovern MD Radiation Oncology 03/08/17 Stacy Adhikari MD [address] [place] [address] Physician Hematology/Oncology 03/20/19 Stacy Adhikari MD [address] [place] [address] Referring Hematology/Oncology 08/23/22 Dye Lab Technician Relationship Specialty Start Date End Date Gasper Fong DO Referring Orthopedics 01/05/17 Mert Mcgovern MD Radiation Oncology 03/08/17 Stacy Adhikari MD [address] [facility] [place] [address] Physician Hematology/Oncology 03/20/19 Stacy Adhikari MD [address] [place] [address] Referring Hematology/Oncology 08/23/22 Judi Howell [address] [place] [address] Family Medicine 09/21/22 Dye Lab Technician Relationship Specialty Start Date End Date Gasper Fong DO Referring Orthopedics 01/05/17 Mert Mcgovern MD Radiation Oncology 03/08/17 Stacy Adhikari MD [address] [place] [address] Physician Hematology/Oncology 03/20/19 Stacy Adhikari MD [address] [place] [address] Referring Hematology/Oncology 08/23/22 Judi Howell [address] [place] [phone] Family Medicine 09/21/22 Dye Lab Technician Relationship Specialty Start Date End Date Gasper Fong DO Referring Orthopedics 01/05/17 Mert Mcgovern MD Radiation Oncology 03/08/17 Stacy Adhikari MD [address] [facility] [place] [address] Physician Hematology/Oncology 03/20/19 Stacy Adhikari MD [address] [facility] [place] [address] Referring Hematology/Oncology 08/23/22 Judi Howell [address] [place] [phone] Family Medicine 09/21/22 Dye Lab Technician Relationship Specialty Start Date End Date Gasper Fong DO Referring Orthopedics 01/05/17 Mert Mcgovern MD Radiation Oncology 03/08/17 Stacy Adhikari MD [address] [place] [address] Physician Hematology/Oncology 03/20/19 Stacy Adhikari MD [address] [facility] [place] [address] Referring Hematology/Oncology 08/23/22 Judi Howell [address] [place] [phone] Family Medicine 09/21/22 Dye Lab Technician Relationship Specialty Start Date End Date Gasper Fong DO Referring Orthopedics 01/05/17 Mert Mcgovern MD Radiation Oncology 03/08/17 Stacy Adhikari MD [address] [facility] [place] [address] Referring Hematology/Oncology 08/23/22 Judi Howell [address] [place] [phone] Family Medicine 09/21/22 Mila Briscoe RN [address] [facility] [place] [address] Specialty Home School Coordinator Hematology/Oncology 05/05/23 Noemí Jolley PA-C [address] [place] [address] [place] [address] Physician Esl Tutor Hematology/Oncology 05/05/23 Dye Lab Technician Relationship Specialty Start Date End Date Gasper Fong DO Referring Orthopedics 01/05/17 Mert Mcgovern MD Radiation Oncology 03/08/17 Stacy Adhikari MD [address] [facility] [place] [address] Referring Hematology/Oncology 08/23/22 Judi Howell [address] [place] [phone] Family Medicine 09/21/22 Mila Briscoe RN [address] [facility] [place] [place] [address] Specialty Home School Coordinator Hematology/Oncology 05/05/23 Noemí Jolley PA-C [address] [place] [address] [place] [address] Physician Esl Tutor Hematology/Oncology 05/05/23 Dye Lab Technician Relationship Specialty Start Date End Date Gasper Fong DO Referring Orthopedics 01/05/17 Mert Mcgovern MD Radiation Oncology 03/08/17 Stacy Adhikari MD [address] [place] [address] [place] [address] Referring Hematology/Oncology 08/23/22 Judi Howell [address] [place] [phone] [facility] Medicine 09/21/22 Mila Briscoe RN [address] [facility] [place] [address] Specialty Home School Coordinator Hematology/Oncology 05/05/23 Noemí Jolley PA-C [address] [place] [address] [place] [address] Physician Esl Tutor Hematology/Oncology 05/05/23 Dye Lab Technician Relationship Specialty Start Date End Date Gasper Fong DO Referring Orthopedics 01/05/17 Mert Mcgovern MD Radiation Oncology 03/08/17 Stacy Adhikari MD [address] [place] [address] [place] [address] Referring Hematology/Oncology 08/23/22 Judi Howell [address] [place] [phone] [facility] Medicine 09/21/22 Mila Briscoe RN [address] [facility] [place] [address] Specialty Home School Coordinator Hematology/Oncology 05/05/23 Noemí Jolley PA-C [address] [facility] [place] [address] Physician Esl Tutor Hematology/Oncology 05/05/23 Dye Lab Technician Relationship Specialty Start Date End Date Gasper Fong DO Referring Orthopedics 01/05/17 Mert Mcgovern MD Radiation Oncology 03/08/17 Stacy Adhikari MD [address] [place] [address] [place] [address] Referring Hematology/Oncology 08/23/22 Judi Howell [address] [place] [phone] [facility] Medicine 09/21/22 Mila Briscoe RN [address] [facility] [place] [address] Specialty Home School Coordinator Hematology/Oncology 05/05/23 Noemí Jolley PA-C [address] [facility] [place] [address] Physician Esl Tutor Hematology/Oncology 05/05/23 Dye Lab Technician Relationship Specialty Start Date End Date Gasper Fong DO Referring Orthopedics 01/05/17 Mert Mcgovern MD Radiation Oncology 03/08/17 Stacy Adhikari MD [address] [place] [address] [place] [address] Referring Hematology/Oncology 08/23/22 Judi Howell [address] [place] [phone] Family Medicine 09/21/22 Mila Briscoe RN [address] [facility] [place] [address] Specialty Home School Coordinator Hematology/Oncology 05/05/23 Noemí Jolley PA-C [address] [place] [address] [place] [address] Physician Esl Tutor Hematology/Oncology 05/05/23 Dye Lab Technician Relationship Specialty Start Date End Date Gasper Fong DO Referring Orthopedics 01/05/17 Mert Mcgovern MD Radiation Oncology 03/08/17 Stacy Adhikari MD [address] [facility] [place] [address] Referring Hematology/Oncology 08/23/22 Judi Howell [address] [place] [phone] Family Medicine 09/21/22 Mila Briscoe RN [address] [facility] [place] [address] Specialty Home School Coordinator Hematology/Oncology 05/05/23 Noemí Jolley, PA-C [address] [place] [address] [place] [address] Physician Esl Tutor Hematology/Oncology 05/05/23 Dye Lab Technician Relationship Specialty Start Date End Date Gasper Fong DO Referring Orthopedics 01/05/17 Mert Mcgovern MD Radiation Oncology 03/08/17 Stacy Adhikari MD [address] [facility] [place] [address] Referring Hematology/Oncology 08/23/22 Judi Howell [address] [place] [phone] Family Medicine 09/21/22 Mila Briscoe RN [address] [facility] [place] [address] Specialty Home School Coordinator Hematology/Oncology 05/05/23 Noemí Jolley, PA-C [address] [facility] [place] [address] Physician Esl Tutor Hematology/Oncology 05/05/23 Dye Lab Technician Relationship Specialty Start Date End Date Gasper Fong DO Referring Orthopedics 01/05/17 Mert Mcgovern MD Radiation Oncology 03/08/17 Stacy Adhikari MD [address] [place] [address] Referring Hematology/Oncology 08/23/22 Judi Howell [address] [place] [phone] Family Medicine 09/21/22 Mila Briscoe RN [address] [facility] [place] [address] Specialty Home School Coordinator Hematology/Oncology 05/05/23 Noemí Jolley PABenC [address] [place] [address] [place] [address] Physician Esl Tutor Hematology/Oncology 05/05/23 Dye Lab Technician Relationship Specialty Start Date End Date Gasper Fong DO Referring Orthopedics 01/05/17 Mert Mcgovern MD Radiation Oncology 03/08/17 Stacy Adhikari MD [address] [facility] [place] [address] Referring Hematology/Oncology 08/23/22 Judi Howell [address] [place] [phone] Family Medicine 09/21/22 Mila Briscoe RN [address] [facility] [place] [address] Specialty Home School Coordinator Hematology/Oncology 05/05/23 Noemí Jolley PA-C [address] [place] [address] [place] [address] Physician Esl Tutor Hematology/Oncology 05/05/23 Dye Lab Technician Relationship Specialty Start Date End Date Gasper Fong DO Referring Orthopedics 01/05/17 Mert Mcgovern MD Radiation Oncology 03/08/17 Stacy Adhikari MD [address] [place] [address] [place] [address] Referring Hematology/Oncology 08/23/22 Judi Howell [address] [place] [phone] Family Medicine 09/21/22 Mila Briscoe RN [address] [facility] [place] [address] Specialty Home School Coordinator Hematology/Oncology 05/05/23 Noemí Jolley PA-C [address] [place] [address] [place] [address] Physician Esl Tutor Hematology/Oncology 05/05/23 Dye Lab Technician Relationship Specialty Start Date End Date Gasper Fong DO Referring Orthopedics 01/05/17 Mert Mcgovern MD Radiation Oncology 03/08/17 Stacy Adhikari MD [address] [place] [address] Referring Hematology/Oncology 08/23/22 Judi Howell [address] [place] [phone] Family Medicine 09/21/22 Mila Briscoe RN [address] [facility] [place] [address] Specialty Home School Coordinator Hematology/Oncology 05/05/23 Noemí Jolley PA-C [address] [facility] [place] [address] Physician Esl Tutor Hematology/Oncology 05/05/23 Dye Lab Technician Relationship Specialty Start Date End Date Gasper Fong DO Referring Orthopedics 01/05/17 Mert Mcgovern MD Radiation Oncology 03/08/17 Stacy Adhikari MD [address] [place] [address] Referring Hematology/Oncology 08/23/22 Judi Howell [address] [place] [phone] Family Medicine 09/21/22 Mila Briscoe RN [address] [facility] [place] [address] Specialty Home School Coordinator Hematology/Oncology 05/05/23 Noemí Jolley PA-C [address] [facility] [place] [address] Physician Esl Tutor Hematology/Oncology 05/05/23 Dye Lab Technician Relationship Specialty Start Date End Date Gasper Fong DO Referring Orthopedics 01/05/17 Mert Mcgovern MD Radiation Oncology 03/08/17 Stacy Adhikari MD [address] [facility] [place] [address] Referring Hematology/Oncology 08/23/22 Judi Howell [address] [place] [address] Family Medicine 09/21/22 Mila Briscoe RN [address] [facility] [place] [address] Specialty Home School Coordinator Hematology/Oncology 05/05/23 Noemí Jolley PA-C [address] [facility] [place] [address] Physician Esl Tutor Hematology/Oncology 05/05/23 Dye Lab Technician Relationship Specialty Start Date End Date Gasper Fong DO Referring Orthopedics 01/05/17 Mert Mcgovern MD Radiation Oncology 03/08/17 Stacy Adhikari MD [address] [place] [address] Referring Hematology/Oncology 08/23/22 Judi Howell [address] [place] [phone] Family Medicine 09/21/22 Mila Briscoe, RN [address] [facility] [place] [address] Specialty Home School Coordinator Hematology/Oncology 05/05/23 Noemí Jolley PA-C [address] [facility] [place] [address] Physician Esl Tutor Hematology/Oncology 05/05/23 Dye Lab Technician Relationship Specialty Start Date End Date Gasper Fong DO Referring Orthopedics 01/05/17 Mert Mcgovern MD Radiation Oncology 03/08/17 Stacy Adhikari MD [address] [place] [address] Referring Hematology/Oncology 08/23/22 Judi Howell [address] [place] [phone] Family Medicine 09/21/22 Mila Briscoe, RN [address] [facility] [place] [address] Specialty Home School Coordinator Hematology/Oncology 05/05/23 Noemí Jolley PA-C [address] [facility] [place] [address] Physician Esl Tutor Hematology/Oncology 05/05/23 Dye Lab Technician Relationship Specialty Start Date End Date Gasper Fong DO Referring Orthopedics 01/05/17 Mert Mcgovern MD Radiation Oncology 03/08/17 Stacy Adhikari MD [address] [place] [address] [place] [address] Referring Hematology/Oncology 08/23/22 Judi Howell [address] [place] [phone] Family Medicine 09/21/22 Mila Briscoe, RN [address] [facility] [place] [address] Specialty Home School Coordinator Hematology/Oncology 05/05/23 Noemí Jolley PA-C [address] [place] [address] [place] [address] Physician Esl Tutor Hematology/Oncology 05/05/23 Dye Lab Technician Relationship Specialty Start Date End Date Gasper Fong DO Referring Orthopedics 01/05/17 Mert Mcgovern MD Radiation Oncology 03/08/17 Stacy Adhikari MD [address] [place] [address] [place] [address] Referring Hematology/Oncology 08/23/22 Judi Howell [address] [place] [phone] Family Medicine 09/21/22 Mila Briscoe, RN [address] [facility] [place] [address] Specialty Home School Coordinator Hematology/Oncology 05/05/23 Noemí Jolley PA-C [address] [facility] [place] [address] Physician Esl Tutor Hematology/Oncology 05/05/23 Dye Lab Technician Relationship Specialty Start Date End Date Gasper Fong DO Referring Orthopedics 01/05/17 Mert Mcgovern MD Radiation Oncology 03/08/17 Judi Howell [address] [place] [phone] [facility] 09/21/22 Mila Briscoe RN [address] [facility] [place] [address] Specialty Home School Coordinator Hematology/Oncology 05/05/23 Noemí Jolley PA-C [address] [facility] [place] [address] Physician Esl Tutor Hematology/Oncology 05/05/23 Arya Rdz MD [address] [facility] [place] [address] Physician Hematology/Oncology 11/15/23 Dye Lab Technician Relationship Specialty Start Date End Date Gasper Fong DO Referring Orthopedics 01/05/17 Mert Mcgovern MD Radiation Oncology 03/08/17 Judi Howell [address] [place] [phone] Family Medicine 09/21/22 Mila Briscoe RN [address] [place] [address] Specialty Home School Coordinator Hematology/Oncology 05/05/23 Noemí Jolley, VICKI [address] [facility] [place] [address] Physician Esl Tutor Hematology/Oncology 05/05/23 Arya Rdz MD [address] [facility] [place] [address] Physician Hematology/Oncology 11/15/23 Dye Lab Technician Relationship Specialty Start Date End Date Ajit Gasper MendozaDO Referring Orthopedics 01/05/17 Mert Mcgovern MD Radiation Oncology 03/08/17 Stacy Adhikari MD [address] [facility] [place] [address] Referring Hematology/Oncology 08/23/22 11/14/23 Judi Howell [address] [place] [phone] Family Medicine 09/21/22 Mila Briscoe RN [address] [facility] [place] [address] Specialty Home School Coordinator Hematology/Oncology 05/05/23 Noemí Jolley PA-C [address] [facility] [place] [address] Physician Esl Tutor Hematology/Oncology 05/05/23 Dye Lab Technician Relationship Specialty Start Date End Date Gasper Fong DO Referring Orthopedics 01/05/17 Mert Mcgovern MD Radiation Oncology 03/08/17 Stacy Adhikari MD [address] [facility] [place] [address] Referring Hematology/Oncology 08/23/22 11/14/23 Judi Howell [address] [place] [address] Family Medicine 09/21/22 Mila Briscoe RN [address] [facility] [place] [address] Specialty Home School Coordinator Hematology/Oncology 05/05/23 Noemí Jolley PA-C [address] [facility] [place] [address] Physician Esl Tutor Hematology/Oncology 05/05/23 Dye Lab Technician Relationship Specialty Start Date End Date Gasper Fong DO Referring Orthopedics 01/05/17 Mert Mcgovern MD Radiation Oncology 03/08/17 Stacy Adhikari MD [address] [facility] [place] [address] Physician Hematology/Oncology 03/20/19 05/04/23 Stacy Adhikari MD [address] [place] [address] Referring Hematology/Oncology 08/23/22 11/14/23 Judi Howell [address] [place] [phone] Family Medicine 09/21/22 Dye Lab Technician Relationship Specialty Start Date End Date Gasper Fong DO Referring Orthopedics 01/05/17 Mert Mcgovern MD Radiation Oncology 03/08/17 Stacy Adhikari MD [address] [place] [address] Physician Hematology/Oncology 03/20/19 05/04/23 Stacy Adhikari MD [address] [place] [address] Referring Hematology/Oncology 08/23/22 11/14/23 Judi Howell [address] [place] [address] Family Medicine 09/21/22 Dye Lab Technician Relationship Specialty Start Date End Date Gasper Fong DO Referring Orthopedics 01/05/17 Mert Mcgovern MD Radiation Oncology 03/08/17 Stacy Adhikari MD [address] [facility] [place] [address] Physician Hematology/Oncology 03/20/19 05/04/23 Stacy Adhikari MD [address] [facility] [place] [address] Referring Hematology/Oncology 08/23/22 11/14/23 Judi Howell [address] [place] [phone] Family Medicine 09/21/22 Dye Lab Technician Relationship Specialty Start Date End Date Gasper Fong DO Referring Orthopedics 01/05/17 Mert Mcgovern MD Radiation Oncology 03/08/17 Judi Howell [address] [place] [phone] Family Medicine 09/21/22 Mila Briscoe, RN [address] [facility] [address] [place], [place] [address] Specialty Home School Coordinator Hematology/Oncology 05/05/23 Noemí Jolley, PA-C [address] [facility] [place] [address] Physician Esl Tutor Hematology/Oncology 05/05/23 Arya Rdz MD [address] [place] [address] [place] [address] Physician Hematology/Oncology 11/15/23 Dye Lab Technician Relationship Specialty Start Date End Date Gasper Fong DO Referring Orthopedics 01/05/17 Mert Mcgovern MD Radiation Oncology 03/08/17 Stacy Adhikari MD [address] [place] [address] [place] [address] Physician Hematology/Oncology 03/20/19 05/04/23 Dye Lab Technician Relationship Specialty Start Date End Date Milton Madison PCP - General Family Medicine 01/05/17 08/04/22 Gasper Fong DO Referring Orthopedics 01/05/17 Mert Mcgovern MD Radiation Oncology 03/08/17 Stacy Adhikari MD [address] [place] [address] [place] [address] Physician Hematology/Oncology 03/20/19 05/04/23 Dye Lab Technician Relationship Specialty Start Date End Date Milton Madison PCP - General Family Medicine 01/05/17 08/04/22 Gasper Fong DO Referring Orthopedics 01/05/17 Mert Mcgovern MD Radiation Oncology 03/08/17 Stacy Adhikari MD [address] [place] [address] Physician Hematology/Oncology 03/20/19 05/04/23 Dye Lab Technician Relationship Specialty Start Date End Date Milton Madison PCP - General Family Medicine 01/05/17 08/04/22 Gasper Fong DO Referring Orthopedics 01/05/17 Mert Mcgovern MD Radiation Oncology 03/08/17 Stacy Adhikari MD [address] [place] [address] Physician Hematology/Oncology 03/20/19 05/04/23 Dye Lab Technician Relationship Specialty Start Date End Date Milton Madison DO PCP - General Family Medicine 01/05/17 08/04/22 Gasper Fong DO Referring Orthopedics 01/05/17 Mert Mcgovern MD Radiation Oncology 03/08/17 Stacy Adhikari MD [address] [place] [address] Physician Hematology/Oncology 03/20/19 05/04/23 Dye Lab Technician Relationship Specialty Start Date End Date GriceldaMilton PCP - General Family Medicine 01/05/17 08/04/22 Gasper Fong DO Referring Orthopedics 01/05/17 Mert Mcgovern MD Radiation Oncology 03/08/17 Stacy Adhikari MD [address] [place] [address] Physician Hematology/Oncology 03/20/19 05/04/23 Dye Lab Technician Relationship Specialty Start Date End Date Gasper Fong DO Referring Orthopedics 01/05/17 Mert Mcgovern MD Radiation Oncology 03/08/17 Judi Howell [address] [place] [address] Family Medicine 09/21/22 Mila Briscoe, RN [address] [facility] [place] [address] Specialty Home School Coordinator Hematology/Oncology 05/05/23 Noemí Jolley PA-C [address] [facility] [place] [address] Physician Esl Tutor Hematology/Oncology 05/05/23 Arya Rdz MD [address] [facility] [place] [address] Physician Hematology/Oncology 11/15/23 Dye Lab Technician Relationship Specialty Start Date End Date Gasper Fong DO Referring Orthopedics 01/05/17 Mert Mcgovern MD Radiation Oncology 03/08/17 Judi Howell [address] [place] [phone] Family Medicine 09/21/22 Mila Briscoe, RN [address] [facility] [place] [address] Specialty Home School Coordinator Hematology/Oncology 05/05/23 Noemí Jolley PA-C [address] [facility] [place] [address] Physician Esl Tutor Hematology/Oncology 05/05/23 Arya Rdz MD [address] [facility] [place] [address] Physician Hematology/Oncology 11/15/23 Dye Lab Technician Relationship Specialty Start Date End Date Gasper Fong DO Referring Orthopedics 01/05/17 Mert Mcgovern MD Radiation Oncology 03/08/17 Judi Howell [address] [place] [phone] [facility] Medicine 09/21/22 Mila Bricsoe RN [address] [facility] [place] [address] Specialty Home School Coordinator Hematology/Oncology 05/05/23 Noemí Jolley PA-C [address] [place] [address] [place] [address] Physician Esl Tutor Hematology/Oncology 05/05/23 Arya Rdz MD [address] [facility] [place] [address] Physician Hematology/Oncology 11/15/23 Dye Lab Technician Relationship Specialty Start Date End Date Gasper Fong DO Referring Orthopedics 01/05/17 Mert Mcgovern MD Radiation Oncology 03/08/17 Judi Howell [address] [place] [phone] [facility] Medicine 09/21/22 Mila Briscoe RN [address] [facility] [place] [address] Specialty Home School Coordinator Hematology/Oncology 05/05/23 Noemí Jolley PA-C [address] [place] [address] [place] [address] Physician Esl Tutor Hematology/Oncology 05/05/23 Arya Rdz MD [address] [facility] [place] [address] Physician Hematology/Oncology 11/15/23 Dye Lab Technician Relationship Specialty Start Date End Date Ajit Gasper MendozaDO Referring Orthopedics 01/05/17 Mert Mcgovern MD Radiation Oncology 03/08/17 Judi Howell [address] [place] [phone] Family Medicine 09/21/22 Mila Briscoe RN [address] [facility] [place] [address] Specialty Home School Coordinator Hematology/Oncology 05/05/23 Noemí Jolley PA-C [address] [facility] [place] [address] Physician Esl Tutor Hematology/Oncology 05/05/23 Arya Rdz MD [address] [facility] [facility] [place] [address] Physician Hematology/Oncology 11/15/23 Dye Lab Technician Relationship Specialty Start Date End Date Gasper Fong DO Referring Orthopedics 01/05/17 Mert Mcgovern MD Radiation Oncology 03/08/17 Judi Howell [address] [place] [phone] Family Medicine 09/21/22 Mila Briscoe RN [address] [place] [address] Specialty Home School Coordinator Hematology/Oncology 05/05/23 Noemí Jolley, PA-C [address] [place] [address] Physician Esl Tutor Hematology/Oncology 05/05/23 Arya Rdz MD [address] [facility] [place] [address] Physician Hematology/Oncology 11/15/23 Dye Lab Technician Relationship Specialty Start Date End Date Gasper Fong DO Referring Orthopedics 01/05/17 Mert Mcgovern MD Radiation Oncology 03/08/17 Judi Howell [address] [place] [phone] Family Medicine 09/21/22 Mila Briscoe RN [address] [facility] [place] [address] Specialty Home School Coordinator Hematology/Oncology 05/05/23 Noemí Jolley, PA-C [address] [facility] [place] [address] Physician Esl Tutor Hematology/Oncology 05/05/23 Arya Rdz MD [address] [place] [address] Physician Hematology/Oncology 11/15/23 Dye Lab Technician Relationship Specialty Start Date End Date Gasper Fong NicolasaDO Referring Orthopedics 01/05/17 Mert Mcgovern MD Radiation Oncology 03/08/17 Judi Howell [address] [place] [phone] Family Medicine 09/21/22 Mila Briscoe RN [address] [facility] [place] [address] Specialty Home School Coordinator Hematology/Oncology 05/05/23 Noemí Jolley PA-C [address] [place] [address] [place] [address] Physician Esl Tutor Hematology/Oncology 05/05/23 Arya Rdz MD [address] [place], [place] [address] [facility] [place] [address] Physician Hematology/Oncology 11/15/23 Dye Lab Technician Relationship Specialty Start Date End Date Gasper Fong DO Referring Orthopedics 01/05/17 Mert Mcgovern MD Radiation Oncology 03/08/17 Judi Howell [address] [place] [phone] Family Medicine 09/21/22 Mila Briscoe RN [address] [facility] [place] [address] Specialty Home School Coordinator Hematology/Oncology 05/05/23 Noemí Jolley PA-C [address] [place] [address] [place] [address] Physician Esl Tutor Hematology/Oncology 05/05/23 Arya Rdz MD [address] [place] [address] [place] [address] Physician Hematology/Oncology 11/15/23 Dye Lab Technician Relationship Specialty Start Date End Date Gasper Fong DO Referring Orthopedics 01/05/17 Mert Mcgovern MD Radiation Oncology 03/08/17 Judi Howell [address] [place] [address] Family Medicine 09/21/22 Mila Briscoe, RN [address] [place] [address] [place] [address] Specialty Home School Coordinator Hematology/Oncology 05/05/23 Noemí Jolley PA-C [address] [place] [address] [place] [address] Physician Esl Tutor Hematology/Oncology 05/05/23 Arya Rdz MD [address] [place] [address] [place] [address] Physician Hematology/Oncology 11/15/23 Dye Lab Technician Relationship Specialty Start Date End Date Gasper Fong DO Referring Orthopedics 01/05/17 Mert Mcgovern MD Radiation Oncology 03/08/17 Judi Howell [address] [place] [phone] Family Medicine 09/21/22 Mila Briscoe, RN [address] [place] [address] Specialty Home School Coordinator Hematology/Oncology 05/05/23 Noemí Jolley PA-C [address] [place] [address] Physician Esl Tutor Hematology/Oncology 05/05/23 Arya Rdz MD [address] [facility] [place] [address] Physician Hematology/Oncology 11/15/23 Dye Lab Technician Relationship Specialty Start Date End Date Gasper Fong DO Referring Orthopedics 01/05/17 Mert Mcgovern MD Radiation Oncology 03/08/17 Judi Howell [address] [place] [phone] [facility] 09/21/22 Mila Briscoe, RN [address] [place] [address] Specialty Home School Coordinator Hematology/Oncology 05/05/23 Noemí Jolley PA-C [address] [place] [address] Physician Esl Tutor Hematology/Oncology 05/05/23 Arya Rdz MD [address] [place] [address] [place] [address] Physician Hematology/Oncology 11/15/23 Dye Lab Technician Relationship Specialty Start Date End Date Gasper Fong DO Referring Orthopedics 01/05/17 Mert Mcgovern MD Radiation Oncology 03/08/17 Judi Howell [address] [place] [phone] Family Medicine 09/21/22 Mila Briscoe RN [address] [facility] [place] [address] Specialty Home School Coordinator Hematology/Oncology 05/05/23 Noemí Jolley PA-C [address] [place] [address] [place] [address] Physician Esl Tutor Hematology/Oncology 05/05/23 Arya Rdz MD [address] [place] [address] [place] [address] Physician Hematology/Oncology 11/15/23 Dye Lab Technician Relationship Specialty Start Date End Date Gasper Fong DO Referring Orthopedics 01/05/17 Mert Mcgovern MD Radiation Oncology 03/08/17 Judi Howell [address] [place] [phone] [facility] Medicine 09/21/22 Mila Briscoe RN [address] [place] [address] Specialty Home School Coordinator Hematology/Oncology 05/05/23 oNemí Jolley PA-C [address] [facility] [place] [address] Physician Esl Tutor Hematology/Oncology 05/05/23 Arya Rdz MD [address] [place], [place] [address] [facility] [place] [address] Physician Hematology/Oncology 11/15/23 Dye Lab Technician Relationship Specialty Start Date End Date Gasper Fong DO Referring Orthopedics 01/05/17 Mert Mcgovern MD Radiation Oncology 03/08/17 Judi Howell [address] [place] [phone] [facility] Medicine 09/21/22 Mila Briscoe RN [address] [facility] [place] [address] Specialty Home School Coordinator Hematology/Oncology 05/05/23 Noemí Jolley PA-C [address] [facility] [place] [address] Physician Esl Tutor Hematology/Oncology 05/05/23 Arya Rdz MD [address] [place] [address] Physician Hematology/Oncology 11/15/23 Dye Lab Technician Relationship Specialty Start Date End Date Merry Mejias DO [address] [address] Referring Physician Neurology 03/14/24 Dye Lab Technician Relationship Specialty Start Date End Date Merry Mejias DO [address] [address] Referring Physician Neurology 03/14/24 Dye Lab Technician Relationship Specialty Start Date End Date Gasper Fong DO Referring Orthopedics 01/05/17 Mert Mcgovern MD Radiation Oncology 03/08/17 Judi [place] [address] [place] [phone] Family Medicine 09/21/22 Mila Briscoe, ALLYSSA [address] [facility] [place] [address] Specialty Home School Coordinator Hematology/Oncology 05/05/23 Noemí Jolley, PABenC [address] [place] [address] [place] [address] Physician Esl Tutor Hematology/Oncology 05/05/23 Arya Rdz MD [address] [facility] [place] [address] Physician Hematology/Oncology 11/15/23 Dye Lab Technician Relationship Specialty Start Date End Date Gasper Fong DO Referring Orthopedics 01/05/17 Mert Mcgovern MD Radiation Oncology 03/08/17 Judi Howell [address] [place] [phone] Family Medicine 09/21/22 Mila Briscoe, RN [address] [place] [address] Specialty Home School Coordinator Hematology/Oncology 05/05/23 Noemí Jolley PA-C [address] [place] [address] Physician Esl Tutor Hematology/Oncology 05/05/23 Arya Rdz MD [address] [place] [address] Physician Hematology/Oncology 11/15/23 Dye Lab Technician Relationship Specialty Start Date End Date Gasper Fong DO Referring Orthopedics 01/05/17 Mert Mcgovern MD Radiation Oncology 03/08/17 Judi [place] [address] [place] [phone] Family Medicine 09/21/22 Mila Briscoe, RN [address] [place] [address] Specialty Home School Coordinator Hematology/Oncology 05/05/23 Noemí Jolley PA-C [address] [place] [address] Physician Esl Tutor Hematology/Oncology 05/05/23 Arya Rdz MD [address] [place], [place] [address] [facility] [place] [address] Physician Hematology/Oncology 11/15/23 Dye Lab Technician Relationship Specialty Start Date End Date Gasper Fong DO Referring Orthopedics 01/05/17 Mert Mcgovern MD Radiation Oncology 03/08/17 Judi [place] [address] [place] [phone] Family Medicine 09/21/22 Mila Briscoe, RN [address] [facility] [place] [address] Specialty Home School Coordinator Hematology/Oncology 05/05/23 Noemí Jolley PABenC [facility] [address] [facility] [place] [address] Physician Esl Tutor Hematology/Oncology 05/05/23 Arya Rdz MD [address] [place] [address] [place] [address] Physician Hematology/Oncology 11/15/23 Dye Lab Technician Relationship Specialty Start Date End Date Gasper Fong DO Referring Orthopedics 01/05/17 Mert Mcgovern MD Radiation Oncology 03/08/17 Judi Howell [address] [place] [phone] Family Medicine 09/21/22 Mila Briscoe RN [address] [facility] [place] [address] Specialty Home School Coordinator Hematology/Oncology 05/05/23 Noemí Jolley, PA-C [address] [facility] [place] [address] Physician Esl Tutor Hematology/Oncology 05/05/23 Arya Rdz MD [address] [facility] [place] [address] Physician Hematology/Oncology 11/15/23 Dye Lab Technician Relationship Specialty Start Date End Date Gasper Fong DO Referring Orthopedics 01/05/17 Mert Mcgovern MD Radiation Oncology 03/08/17 Judi [place] [address] [place] [phone] Family Medicine 09/21/22 Mila Briscoe RN [address] [facility] [place] [address] Specialty Home School Coordinator Hematology/Oncology 05/05/23 Noemí Jolley PA-C [address] [facility] [place] [address] Physician Esl Tutor Hematology/Oncology 05/05/23 Arya Rdz MD [address] [place] [address] Physician Hematology/Oncology 11/15/23 Dye Lab Technician Relationship Specialty Start Date End Date Gasper Fong DO Referring Orthopedics 01/05/17 Mert Mcgovern MD Radiation Oncology 03/08/17 Judi [place] [address] [place] [phone] [facility] Medicine 09/21/22 Mila Briscoe, RN [address] [facility] [place] [address] Specialty Home School Coordinator Hematology/Oncology 05/05/23 Noemí Jolley, KATIEC [address] [facility] [place] [address] Physician Esl Tutor Hematology/Oncology 05/05/23 Arya Rdz MD [address] [facility] [place] [address] Physician Hematology/Oncology 11/15/23 Dye Lab Technician Relationship Specialty Start Date End Date Gasper Fnog DO Referring Orthopedics 01/05/17 Mert Mcgovern MD Radiation Oncology 03/08/17 Judi [place] [address] [place] [phone] Family Medicine 09/21/22 Mila Briscoe, RN [address] [facility] [place] [address] Specialty Home School Coordinator Hematology/Oncology 05/05/23 Noemí Jolley PA-C [address] [facility] [place] [address] Physician Esl Tutor Hematology/Oncology 05/05/23 Arya Rdz MD [address] [facility] [place] [address] Physician Hematology/Oncology 11/15/23 Dye Lab Technician Relationship Specialty Start Date End Date Gasper Fong DO Referring Orthopedics 01/05/17 Mert Mcgovern MD Radiation Oncology 03/08/17 Judi [place] [address] [place] [phone] Family Medicine 09/21/22 Mila Briscoe RN [address] [facility] [place] [address] Specialty Home School Coordinator Hematology/Oncology 05/05/23 Noemí Jolley PA-C [address] [facility] [place] [address] Physician Esl Tutor Hematology/Oncology 05/05/23 Arya Rdz MD [address] [facility] [place] [address] Physician Hematology/Oncology 11/15/23 Dye Lab Technician Relationship Specialty Start Date End Date Gasper Fong DO Referring Orthopedics 01/05/17 Mert Mcgovern MD Radiation Oncology 03/08/17 JhonatanmaximechapincitoJudi Zulema [address] [place] [phone] Family Medicine 09/21/22 Mila Briscoe, RN [address] [facility] [place] [address] Specialty Home School Coordinator Hematology/Oncology 05/05/23 Noemí Jolley PABenC [address] [place] [address] [place] [address] Physician Esl Tutor Hematology/Oncology 05/05/23 Arya Rdz MD [address] [facility] [place] [address] Physician Hematology/Oncology 11/15/23 Reason for Visit (unrecogniz ed section and content) Reason Comments Radiology CT Specialty Diagnoses / Procedures Referred By Contac t Referred To Contact ADMITTING Diagnoses 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] Procedures STEREOTACTIC RADIOSURGERY 1 COMPLEX CRANIAL LES STEREOTACTIC RADIOSURGERY 1 COMPLEX CRANIAL LESION [facility] [address] [address] Referral ID Status Reason Start Date Expiration Date Visits Re quested Visits Authorized [id number] 1 1 Reason Comments Radiology MRI Reason Comments Results Reason Comments Care Coordination CT Results Reason Comments Lung Cancer 6 month follow up Reason Comments Referral Information Reason Comments Lung Cancer follow up after imag ing Reason Comments Referral Information Neurology Reason Comments Care Coordination lab results Reason Comments Patient Question Reason Comments Referral Information Care Coordination Urology referral Reason Comments Lung Cancer Cerebrovascular accident (CVA) due to oc clusion of small ar Reason Comments Refill Request Reason Onset Date Comments Bronchoscopy Scheduling 07/05/2022 Initial Bronch Request Reason Comments Care Coordination Clinical update Reason Comments Appointment Home School Coordinator - Other Reason Comments Lung Cancer Follow up Specialty Diagnoses / Procedures Referred By Contac t Referred To Contact ADMITTING Diagnoses Bronchiolar disease Procedures BRNCHSC INCL FLUOR GDNCE DX W/CELL WASHG SPX BRONCHOSCOPY FLEXIBLE [facility] [address] [id number] Referral ID Status Reason Start Date Expiration Date Visits Re quested Visits Authorized [id number] 1 1 Reason Comments Care Coordination MRI Results Reason Comments Spirometry Specialty Diagnoses / Procedures Referred By [facility] Referred To Contact RESPIRATORY [place] Diagnoses Malignant neoplasm of upper lobe of left lung (HCC) Procedures LUNG DIFFUSION CAPACITY (DLCO) DIFFUSING CAPACITY Mina Walden MD [address] [id number] [place] [address] Referral ID Status Reason Start Date Expiration Date V isits Requested Visits Authorized [id number] Closed Auto-Generate d Referral 09/08/2022 03/12/2023 1 1 Specialty Diagnoses / Procedures Referred By [facility] Referred To Contact RESPIRATORY [place] Diagnoses Malignant neoplasm of upper lobe of left lung (HCC) Procedures SPIROMETRY WITH DILATOR IF OBSTRUCTED BRNCDILAT RSPSE SPMTRY PRE&POST-BRNCDILAT ADMN Mina Walden MD [address] [place] [address] [facility] [address] [place] [address] Referral ID Status Reason Start Date Expiration Date V isits Requested Visits Authorized [id number] Closed Auto-Generate d Referral 09/08/2022 03/12/2023 1 1 Reason Comments Consult Reason Comments Radiology NM Specialty Diagnoses / Procedures Referred By [facility] Referred To Contact MOLECULAR & FUNCTIONAL IMAGING Diagnoses Malignant neoplasm of unspecified part of unspecified bronchus or lung (HCC) Pre-op testing SOB (shortness of breath) Encounter for other preprocedural examination Procedures NM CARDIAC PERF STRESS/EXERCISE MYOCARDIAL SPECT MULTIPLE STUDIES Mina Walden MD [address] [place] [address] Molecular & Functional Imaging [address] [id number] Referral ID Status Reason Start Date Expiration Date V isits Requested Visits Authorized [id number] Closed Auto-Generate d Referral 10/28/2022 03/12/2023 2 2 Reason Comments Post-Op Visit Reason Comments First Time Treatment Education Reason Comments Lab Orders Reason Comments Lung Cancer Treatment visit Specialty Diagnoses / Procedures Referred By Gayle t Referred To Contact Diagnoses Malignant neoplasm of hilus of lung, unspecified laterality (HCC) Malignant neoplasm of upper lobe of left lung (HCC) Procedures INJ PEMBROLIZUMAB Stacy Adhikari MD [address] [place] [address] [facility] Mc [address] [facility] [address] Referral ID Status Reason Start Date Expiration Date V isits Requested Visits Authorized [id number] Authorized 12/13/2022 01/04/2024 34 34 Reason Comments Care Coordination C1D1 treatment follo w up call Reason Comments Care Coordination Discoloration of lef t ring finger Specialty Diagnoses / Procedures Referred By Gayle t Referred To Contact MR IMAGING Diagnoses Malignant neoplasm of lower lobe of left lung (HCC) Procedures MRI BRAIN WO/W IVCON MRI BRAIN BRAIN STEM W/O W/CONTRAST MATERIAL Stacy Adhikari MD [address] [place] [address] [place] [address] Referral ID Status Reason Start Date Expiration Date V isits Requested Visits Authorized [id number] Closed Auto-Generate d Referral 09/05/2022 03/12/2023 1 1 Reason Comments Lung Cancer Reason Comments Lung Cancer Treatment visit Reason Comments Care Coordination MRI results Reason Comments Lung Cancer 2 week follow up Reason Comments Lung Cancer 3 week follow up Reason Comments Care Coordination PET results Reason Comments Lung Cancer OTV Referral ID Status Reason Start Date Expiration Date Visits Re quested Visits Authorized [id number] Closed 12/13/2022 01/04/2024 34 34 Referral ID Status Reason Start Date Expiration Date V isits Requested Visits Authorized [id number] Authorized 06/20/2023 07/11/2024 17 17 Reason Comments Patient Update Reason Onset Date Comments Refill Request 09/03/2023 Reason Comments Care Coordination Lab orders Reason Comments Care Coordination Stable CT results Reason Comments Lung Cancer OTV Reason Comments Referral Information Podiatry Reason Comments Lung Cancer SAMMY Reason Comments Radiology CT Specialty Diagnoses / Procedures Referred By Gayle t Referred To Contact CT IMAGING Diagnoses Malignant neoplasm of hilus of lung, unspecified laterality (HCC) Procedures CT CHEST W IVCON DIAGNOSTIC COMPUTED TOMOGRAPHY THORAX W/CONTRAST Stacy Adhikari MD [address] [place] [address] [address] [facility] [place] [address] Referral ID Status Reason Start Date Expiration Date V isits Requested Visits Authorized [id number] Closed Auto-Generate d Referral 09/07/2023 03/12/2024 1 1 Specialty Diagnoses / Procedures Referred By Contac t Referred To Contact MOLECULAR & FUNCTIONAL IMAGING Diagnoses Malignant neoplasm of hilus of lung, unspecified laterality (HCC) Malaise and fatigue Malignant neoplasm of unspecified part of unspecified bronchus or lung (HCC) Procedures NM PET/CT SKULL-THIGH SUBSEQUENT PET IMAGING CT ATTENUATION SKULL BASE MID-THIGH Noemí Jolley PA-C [address] [place] [address] Molecular [facility] Functional Imaging [address] [place] [address] Referral ID Status Reason Start Date Expiration Date V isits Requested Visits Authorized [id number] Closed Auto-Generate d Referral 06/01/2023 03/12/2024 1 1 Specialty Diagnoses / Procedures Referred By Contac t Referred To Contact MOLECULAR & FUNCTIONAL IMAGING Diagnoses Malignant neoplasm of upper lobe of left lung (HCC) Procedures NM PET/CT SKULL-THIGH SUBSEQUENT PET IMAGING CT ATTENUATION SKULL BASE MID-THIGH Stacy Adhikari MD [address] [place] [address] [facility] [address] [place] [address] Referral ID Status Reason Start Date Expiration Date V isits Requested Visits Authorized [id number] Closed Auto-Generate d Referral 02/15/2023 03/12/2023 1 1 Specialty Diagnoses / Procedures Referred By Contac t Referred To Contact MOLECULAR & FUNCTIONAL IMAGING Diagnoses Neoplasm of lung Procedures NM PET/CT SKULL-THIGH INITIAL PET IMAGING CT ATTENUATION SKULL BASE MID-THIGH Stacy Adhikari MD [address] [place] [address] [facility] [address] [place] [address] Referral ID Status Reason Start Date Expiration Date V isits Requested Visits Authorized [id number] Closed Auto-Generate d Referral 12/19/2022 03/12/2023 1 1 Specialty Diagnoses / Procedures Referred By Contac t Referred To Contact CT IMAGING Diagnoses Malignant neoplasm of unspecified part of unspecified bronchus or lung (HCC) Pre-op testing SOB (shortness of breath) Procedures CT CHEST W IVCON DIAGNOSTIC COMPUTED TOMOGRAPHY THORAX W/CONTRAST Mina Walden MD [address] [place] [address] [facility] [place] [address] Referral ID Status Reason Start Date Expiration Date V isits Requested Visits Authorized [id number] Closed Auto-Generate d Referral 10/19/2022 03/12/2023 1 1 Specialty Diagnoses / Procedures Referred By Contac t Referred To Contact CT IMAGING Diagnoses Small cell carcinoma of lung, 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) Lung nodule Pre-op testing Procedures CT CHEST WO IVCON DIAGNOSTIC COMPUTED TOMOGRAPHY THORAX W/O CNTRST Dre Cantor MD [address] [place] [address] [facility] [place] [address] Referral ID Status Reason Start Date Expiration Date V isits Requested Visits Authorized [id number] Closed Auto-Generate d Referral 07/28/2022 03/12/2023 1 1 Specialty Diagnoses / Procedures Referred By Contac t Referred To Contact CT IMAGING Diagnoses Malignant neoplasm of unspecified part of unspecified bronchus or lung (HCC) Procedures CT CHEST W IVCON DIAGNOSTIC COMPUTED TOMOGRAPHY THORAX W/CONTRAST Stacy Adhikari MD [address] [place] [address] [address] [facility] Referral ID Status Reason Start Date Expiration Date V isits Requested Visits Authorized [id number] Closed Auto-Generate d Referral 07/06/2022 05/07/2023 1 1 Referral ID Status Reason Start Date Expiration Date V isits Requested Visits Authorized [id number] Closed Auto-Generate d Referral 07/15/2022 07/15/2022 1 1 Referral ID Status Reason Start Date Expiration Date Visits Re quested Visits Authorized [id number] Closed 03/17/2022 03/12/2023 1 1 Specialty Diagnoses / Procedures Referred By Contac t Referred To Contact CT IMAGING Diagnoses Malignant neoplasm of unspecified part of unspecified bronchus or lung (HCC) Procedures CT CHEST W IVCON CAT SCAN OF CHEST CONTRAST Stacy Adhikari MD [address] [place] [address] [place] [address] [address] [facility] [place] [address] Referral ID Status Reason Start Date Expiration Date V isits Requested Visits Authorized [id number] Closed Auto-Generate d Referral 08/27/2021 03/12/2022 1 1 Specialty Diagnoses / Procedures Referred By Contac t Referred To Contact CT IMAGING Diagnoses Lung nodules Procedures CT CHEST W IVCON CAT SCAN OF CHEST CONTRAST Noemí Jolley PA-C [address] [place] [address] [place] [address] Ct Imaging [facility] Referral ID Status Reason Start Date Expiration Date V isits Requested Visits Authorized [id number] Closed Auto-Generate d Referral 02/15/2021 03/12/2021 1 1 Reason Onset Date Comments Refill Request 12/15/2023 Reason Comments Malaise and fatigue Treatment visit Reason Onset Date Comments Refill Request 01/10/2024 Reason Comments Radiology NM Specialty Diagnoses / Procedures Referred By Contac t Referred To Contact MOLECULAR & FUNCTIONAL IMAGING Diagnoses Malignant neoplasm of unspecified part of unspecified bronchus or lung (HCC) Malignant neoplasm of hilus of lung, unspecified laterality (HCC) Malignant neoplasm of right lung, unspecified part of lung (HCC) 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) Procedures NM PET/CT SKULL-THIGH SUBSEQUENT PET IMAGING CT ATTENUATION SKULL BASE MID-THIGH Arya Rdz MD [address] [place] [address] [place] [address] Molecular & Functional Imaging [address] [place] [address] Referral ID Status Reason Start Date Expiration Date V isits Requested Visits Authorized [id number] Closed Auto-Generate d Referral 01/12/2024 03/12/2024 1 1 Reason Comments Results Care Coordination MRI results Reason Onset Date Comments Refill Request 02/01/2024 Reason Comments Med Change Request Reason Comments Triage Internal Referral Reason Comments Appointment Specialty Diagnoses / Procedures Referred By Contac t Referred To Contact Diagnoses Malignant neoplasm of upper lobe of left lung (HCC) Malignant neoplasm of unspecified part of unspecified bronchus or lung Procedures INJ PEMBROLIZUMAB Stacy Adhikari MD [address] [place] [address] [facility] [place] [address] [facility] [place] [address] Reason Comments New Patient Reason Comments Preparations For Procedures GKRS Reason Comments Procedure GKRS Specialty Diagnoses / [facility] To [facility] AD[facility] Diagnoses 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] Procedures STEREOTACTIC RADIOSURGERY 1 COMPLEX CRANIAL LES STEREOTACTIC RADIOSURGERY 1 COMPLEX CRANIAL LESION [facility] [address] [place] [address] Reason Onset Date Comments Lab Orders 02/01/2024 Reason Comments Malignant neoplasm of frontal lobe of br ain Follow up Reason Comments Stroke Migraine Reason Comments Lung Cancer Reason Onset Date Comments Refill Request 04/28/2024 Specialty Diagnoses / Procedures [facility] Ref[facility] To Contact MOLECULAR & FUNCTIONAL IMAGING Diagnoses 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) Malignant neoplasm of right lung, unspecified part of lung (HCC) 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, unspecified laterality (HCC) Procedures NM PET/CT SKULL-THIGH SUBSEQUENT PET IMAGING CT ATTENUATION SKULL BASE MID-THIGH Arya Rdz MD [address] [facility] [place] [address] Phone: tel: fax: Molecular Imaging [address] [place], [place] [id number] Phone: tel: Referral ID Status Reason Start Date Expiration Date V isits Requested Visits Authorized [id number] Closed Auto-Generate d Referral 04/08/2024 05/09/2024 1 1 Reason Comments Results Care Coordination PET results Reason Onset Date Comments Refill Request 06/05/2024 Goals (unrecognized section and content) Goals may be documented in a n alternate section INFORMATION SOURCE (unrecogn ized section and content) DATE CREATED AUTHOR 12/12/2021 [facility] DATE CREATED AUTHOR AUTHOR'S ORGANIZ ATION 04/16/2022 [facility] DATE CREATED AUTHOR AUTHOR'S ORGANIZ ATION 07/11/2022 [facility] DATE CREATED AUTHOR AUTHOR'S ORGANIZ ATION 11/25/2022 [facility] DATE CREATED AUTHOR AUTHOR'S ORGANIZ ATION 03/02/2024 [facility] DATE CREATED AUTHOR AUTHOR'S ORGANIZ ATION 03/21/2024 [facility] DATE CREATED AUTHOR AUTHOR'S ORGANIZ ATION 05/04/2024 [facility] DATE CREATED AUTHOR AUTHOR'S ORGANIZ ATION 05/05/2024 [facility] Inactive Administered Medications - up to 3 most recent administrations Administered Medications (un recognized section and content) Medication Order MAR Action Action Date Dose Rate Site pembrolizumab 200 mg in NaCl 0.9% 66 mL (KEYTRUDA) 200 mg, INTRAVENOUS, Administer over 30 Minutes, ONCE, 1 dose, On Mon05/09/23 at 1500, Approx Total Volume: 66 mL EXP 209905/09/23 Administer with 0.2 micron filter. New Bag/Syringe/Bottle 05/09/2023 3:16 PM EST 200 mg Inactive Administered Medications - up to 3 most recent administrations Medication Order MAR Action Action Date Dose Rate Site pembrolizumab 200 mg in NaCl 0.9% 66 mL (KEYTRUDA) 200 mg, INTRAVENOUS, Administer over 30 Minutes, ONCE, 1 dose, On Mon05/30/23 at 1400, Approx Total Volume: 66 mL EXP 199905/30/23 Administer with 0.2 micron filter. New Bag/Syringe/Bottle 05/30/2023 2:08 PM EDT 200 mg Inactive Administered Medications - up to 3 most recent administrations Medication Order MAR Action Action Date Dose Rate Site pembrolizumab 200 mg in NaCl 0.9% 66 mL (KEYTRUDA) 200 mg, INTRAVENOUS, Administer over 30 Minutes, ONCE, 1 dose, On Mon06/20/23 at 1400, Approx Total Volume: 66 mL EXP: 06/20/20231999 RT Administer with 0.2 micron filter. New Bag/Syringe/Bottle 06/20/2023 2:20 PM EDT 200 mg FOR RECORDS PERTAINING TO PATIENTS WHO ARE OR HAVE BEEN ENROLLED IN A CHEMICAL DEPENDENCY/SUBSTANCEABUSE PROGRAM, SOME INFORMATION MAY BE OMITTED. This clinical summary was aggregated from multiple sources. Caution should be exercised in using it in the provision of clinical care. This summary normalizes information from multiple sources, and as a consequence, information in this document may materially change the coding, format and clinical context of patient data. In addition, data may be omitted in some cases. CLINICAL DECISIONS SHOULD BE BASED ON THE PRIMARY CLINICAL RECORDS. [facility]. provides no warranty or guarantee of the accuracy or completeness of information in this document.
--- NOTE | 2024-06-07 19:01 | ECG_ITS ---
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 Measurements Intervals [place] Rate: 89 P: 72 [place]: 142 QRS: 70 QRSD: 70 T: 54 QT: 352 QTc: 399 Interpretive Statements 1100 Sinus rhythm 9110 normal ECG No previous ECG available for comparison Electronically Signed On 06-07-2024 19:27:23 EDT by MAYO CAZARES M.D.
--- NOTE | 2024-06-07 19:03 | ED_ITS ---
HPI HPI - General Adult General Chief complaint: Abdominal Pain Stated complaint: abd pain Time Seen by Provider: 06/07/24 18:56 Source: patient Mode of arrival: walk-in Limitations: no limitations History of Present Illness HPI narrative: Patient is a 58-year-old female presents to the ER with concerns of epigastric abdominal pain she reports a burning sensation for the past 3 days only relieved for about 10 minutes after taking Pepcid earlier today she is on Carafate and Protonix daily reports having a EGD done a year ago and diagnosed with gastric ulcers. She denies any syncope or chest pain she denies any pain radiating to her back. She has had pancreatitis in the past as well. She denies any alcohol or drug use denies any anti-inflammatory or steroid use. Patient states she has had current discomfort for the past week without noting relief. She does report a history of hiatal hernia as well which adds to her symptoms. She denies any diarrhea or dark tarry stools she denies any blood in her stools and is without any dysuria. Patient appears nontoxic in no acute distress. Location: Reports abdomen Severity: mild Quality: Reports burning Pain Consistency: Reports constant Relieving factors: Reports medication Exacerbating factors: Reports none Treatments prior to arrival: Reports other (Pepcid prior to arrival) Related Data Allergies Allergy/AdvReac Type Severity Reaction Status Date / Time Penicillins Allergy Severe Rash Verified 06/07/24 18:39 Opioid HPI Opioid Management Most Recent Opioid Data: Last Pain Scale 0 06/07/24 20:07 06/07/24 Last ED Pain Assessment 06/07/24 20:07 Review of Systems ROS Constitutional Denies: fever or chills Eyes Denies: seeing flashes Ears, nose, mouth, and throat Denies: throat pain, neck pain or throat swelling Cardiovascular Denies: chest pain or palpitations Respiratory Denies: shortness of breath or cough Gastrointestinal Reports: abdominal pain and heartburn; Denies: diarrhea, change in bowel habits, painful bowel movements, rectal pain or blood in stool Genitourinary Denies: painful urination Musculoskeletal Denies: back pain, neck pain or extremity pain Integumentary/Breast Denies: rash or itching Neurological Denies: headache Psychiatric Denies: anxiety PFSH PFSH Social History Little interest or pleasure in doing things: not at all Feeling down, depressed, or hopeless: not at all Exam Narrative Exam Narrative: Nurses notes and vital signs reviewed and patient is not hypoxic. General: The patient appears well and in no apparent distress. Patient is resting comfortably on cart. Skin: Warm, dry, no pallor noted. Head: Normocephalic, atraumatic Neck: Supple, trachea mid-line, no tenderness, no lymphadenopathy Eye: Pupils are equal, round and reactive to light, EOMI Ears, Nose, Mouth, and Throat: external Exam unremarkable Cardiovascular: Regular Rate and Rhythm Respiratory: Patient is in no distress, no accessory muscle use, lungs are clear to auscultation, no wheezing, rales or rhonchi. Chest Wall: no tenderness Back: non-tender, no CVA tenderness Musculoskeletal: normal ROM, no tenderness, no swelling GI: Normal bowel sounds, no tenderness to palpation, mild epigastric soreness on palpation. No masses appreciated. No rebound, guarding, or rigidity noted. Neurological: A&O x4 Psychiatric: Cooperative Constitutional Vital Signs, click to edit/add: Last Vital Signs Temp 98.7 F 06/07/24 18:39 Pulse 82 06/07/24 20:02 Resp 15 06/07/24 20:02 BP 164/91 H 06/07/24 19:32 Pulse Ox 100 06/07/24 20:02 Course Vital Signs Vital signs: Vital Signs Temperature 98.7 F 06/07/24 18:39 Pulse Rate 97 H 06/07/24 18:39 Respiratory Rate 16 06/07/24 18:39 Blood Pressure 159/87 H 06/07/24 18:39 Pulse Oximetry 99 06/07/24 18:39 Temperature 98.7 F 06/07/24 18:39 Pulse Rate 82 06/07/24 20:02 Respiratory Rate 15 06/07/24 20:02 Blood Pressure 164/91 H 06/07/24 19:32 Pulse Oximetry 100 06/07/24 20:02 Medical Decision Making [facility] Narrative Medical decision making narrative: Patient be medicated wit GI cocktail, Protonix and Zofran. Patient reevaluated noted near 100% relief of pain after medication we discussed her laboratory studies her hemoglobin appears slightly improved from prior s ample at our facility. Patient had a slight delay regarding radiology read from chest x-ray and upon reevaluation noted that she was started to get a slight burning sensation but was overall much better than before. We discussed her home medication and were going to give an additional dose of Tums and IV Pepcid. The patient states she has the Carafate at home but only took 1 dose this morning and has not taken it 4 times a day as prescribed. We have recommended that she take her normal prescribed medications and follow-up with health department for reevaluation of her symptoms and if needed be in touch with gastroenterology. Patient admits she has not seen a family doctor in over a year as her provider left and went out of state from the health department but is aware that there are other providers there that may continue her care. The oncologist gives me the prescriptions I need. Patient declined additional medications wishing to be discharged home. We discussed her length of symptoms over the past week, normal troponin and unremarkable EKG. She may return to the ER if any symptoms worsen or new symptoms develop but currently appears stable for discharge home with overall improvement in symptoms. The patient is to followup with primary care physician in next 2-3 days or to return to the emergency department should any of the signs or symptoms worsen or new symptoms develop. Patient had questions answered. The patient agrees with the following Diagnosis and Treatment plan and the patient will be discharged home. Lab Data Lab results reviewed: Yes I reviewed the patient's lab results Labs: Lab Results 06/07/24 Range/Units 19:15 WBC 10.6 (4.0-11.0) 10^3/uL RBC 3.18 L (4.20-5.40) 10^6/uL Hgb 10.3 L (12.0-16.0) g/dL Hct 31.9 L (36.0-48.0) % MCV 100.3 H (81.0-99.0) fL MCH 32.4 (26.7-34.0) pg MCHC 32.3 (29.9-35.2) g/dL RDW 13.9 (11.0-15.0) % Plt Count 177 (150-450) 10^3/uL MPV 9.7 (9.5-13.5) fL Neut % (Auto) 73.2 (43.0-75.0) % Lymph % (Auto) 14.1 L (20.5-60.0) % [place] % (Auto) 9.6 (1.7-12.0) % Eos % (Auto) 2.1 (0.9-7.0) % Baso % (Auto) 0.3 (0.2-2.0) % Neut # (Auto) 7.8 H (1.4-6.5) 10^3/uL Lymph # (Auto) 1.5 (1.2-3.8) 10^3/uL [place] # (Auto) 1.0 H (0.3-0.8) 10^3/uL Eos # (Auto) 0.2 (0.0-0.7) 10^3/uL Baso # (Auto) 0.0 (0.0-0.1) 10^3/uL Abs Immat Gran (auto) 0.07 H (0.00-0.03) 10^3/uL Imm/Tot Granulo (auto) 0.7 H (0.0-0.5) % Sodium 137 (136-145) mmol/L Potassium 3.9 (3.5-5.1) mmol/L Chloride 100 (98-107) mmol/L Carbon Dioxide 29.2 (21.0-32.0) mmol/L Anion Gap 11.7 BUN 14.0 (7.0-18.0) mg/dL Creatinine 0.73 (0.55-1.02) mg/dL Est GFR ( Amer) >60 (>=60 mL/min/1.73m^2) Est GFR (Non-Af Amer) >60 (>=60 mL/min/1.73m^2) BUN/Creatinine Ratio 19.2 Glucose 117 H (74-106) mg/dL Calcium 8.6 (8.5-10.1) mg/dL Total Bilirubin 0.2 (0.2-1.0) mg/dL AST 13 L (15-37) U/L ALT 16 (14-59) U/L Alkaline Phosphatase 195 H (46-116) U/L Troponin I High Sens 8.1 (4.0-51.3) pg/mL Total Protein 5.8 L (6.4-8.2) g/dL Albumin 2.4 L (3.4-5.0) g/dL Globulin 3.4 g/dL Albumin/Globulin Ratio 0.7 Lipase 30.0 (16.0-77.0) U/L Imaging Data Chest x-ray: Attestation: I personally reviewed and interpreted this imaging study as follows: Radiologist's impression: Chest x-ray shows emphysema no lobar consolidation or edema no pleural effusion or pneumothorax, no fracture or foreign body, mild pulmonary parenchymal scarring in the right upper lobe near the right hilum, no free air in the upper abdomen. ECG Data Attestation: I personally reviewed and interpreted this ECG as follows: Interpretation: EKG interpretation: Emergency Department physician interpretation, normal sinus rhythm 9 bpm, no ectopy, no ST segment elevation, normal axis. Discharge Plan Discharge Chief Complaint: Abdominal Pain Clinical Impression: Epigastric abdominal pain Patient Disposition: Home, Self-Care Time of Disposition Decision: 21:02 Condition: Good Print Language: Czech Instructions: GERD (Gastroesophageal Reflux Disease) (ED), Epigastric Pain (ED) Additional Instructions: Contact [facility] for follow up. [phone] Recommend appt in 2-4 days Take Current medication as prescribed Dr. Hooper [facility] [phone] ( call for appt) Referrals: Jessika Nielson NP [Physician] - As soon as possible
[2024-06-07] MEDS: lidocaine HCL 15 ML, MAG HYDROX/ALUMINUM HYD/SIMETH 30 ML, HYOSCYAMINE SULFATE 0.25 MG PO (19:24)
[2024-06-07] MEDS: 0.9 % SODIUM CHLORIDE 1,000 ML 999 ML IV (19:25)
[2024-06-07] MEDS: ONDANSETRON PF 4 MG/2 ML VIAL IV (19:26)
[2024-06-07] MEDS: PANTOPRAZOLE SODIUM 40 MG VIAL IV (19:26)
[2024-06-07 19:30] LABS: Basophils Percent Auto 0.3 % (0.2-2.0); Eosinophils Absolute Auto 0.2 10^3/uL (0.0-0.7); Eosinophils Percent Auto 2.1 % (0.9-7.0); Hematocrit 31.9 % (36.0-48.0); Hemoglobin 10.3 g/dL (12.0-16.0); Immature Granulocytes Abs Auto 0.07 10^3/uL (0.00-0.03); Immature Granulocytes Pct Auto 0.7 % (0.0-0.5); Lymphocytes Absolute Auto 1.5 10^3/uL (1.2-3.8); Lymphocytes Percent Auto 14.1 % (20.5-60.0); Mean Corpuscular HGB Conc 32.3 g/dL (29.9-35.2); Mean Corpuscular Hemoglobin 32.4 pg (26.7-34.0); Mean Corpuscular Volume 100.3 fL (81.0-99.0); Mean Platelet Volume 9.7 fL (9.5-13.5); Monocytes Percent Auto 9.6 % (1.7-12.0); Neutrophils Absolute Auto 7.8 10^3/uL (1.4-6.5); Neutrophils Percent Auto 73.2 % (43.0-75.0); Platelet Count 177 10^3/uL (150-450); Red Blood Count 3.18 10^6/uL (4.20-5.40); Red Cell Distribution Width 13.9 % (11.0-15.0); White Blood Count 10.6 10^3/uL (4.0-11.0)
[2024-06-07 19:48] LABS: Alanine Aminotransferase 16 U/L (14-59); Albumin Globulin Ratio 0.7; Albumin Level 2.4 g/dL (3.4-5.0); Alkaline Phosphatase 195 U/L (46-116); Anion Gap 11.7; Aspartate Amino Transferase 13 U/L (15-37); BUN Creatinine Ratio 19.2; Bilirubin Total 0.2 mg/dL (0.2-1.0); Calcium 8.6 mg/dL (8.5-10.1); Carbon Dioxide 29.2 mmol/L (21.0-32.0); Chloride 100 mmol/L (98-107); Estimated GFR (African America >60 (>=60 mL/min/1.73m^2); Estimated GFR (Non-African Ame >60 (>=60 mL/min/1.73m^2); Globulin 3.4 g/dL; Glucose 117 mg/dL (74-106); Potassium 3.9 mmol/L (3.5-5.1); Sodium 137 mmol/L (136-145); Total Protein 5.8 g/dL (6.4-8.2); Troponin I High Sensitivity 8.1 pg/mL (4.0-51.3)
== END 2024-06-07 21:11 | disposition home or self-care (01) ==
PROVIDERS: Personal Emergency Response Attendant; Emergency Provider Emergency Medicine
DX: R10.13 Epigastric pain (principal); K44.9 Diaphragmatic hernia without obstruction or gangrene; J43.9 Emphysema, unspecified; Z79.899 Other long term (current) drug therapy
CPT/HCPCS: 36415; 71045; 80053; 83690; 84484; 85025; 93005; 96374; 96375; 99285; J2405

== ENCOUNTER 2024-06-17 14:54 | Outpatient (OUT) | payer BC, SELFPAY ==
[2024-06-17 16:08] LABS: Albumin Globulin Ratio 0.6; Albumin Level 2.2 g/dL (3.4-5.0); Alkaline Phosphatase 1047 U/L (46-116); Bilirubin Direct 0.2 mg/dL (0.0-0.2); Bilirubin Total 0.3 mg/dL (0.2-1.0); Chol HDL Ratio 3.6; Cholesterol 108 mg/dL (<=200); Globulin 3.8 g/dL; HDL Cholesterol 30 mg/dL (40-60); Triglycerides 123 mg/dL (<=150); VLDL CHOLESTEROL 24.6 mg/dL
[2024-06-17 16:18] LABS: Alanine Aminotransferase 636 U/L (14-59); Aspartate Amino Transferase 599 U/L (15-37)
== END 2024-06-17 14:55 | disposition home or self-care (01) ==
LOC: LAB 14:55
PROVIDERS: Visit Provider Nurse Practitioner Family
DX: E78.5 Hyperlipidemia, unspecified (principal); Z51.81 Encounter for therapeutic drug level monitoring
CPT/HCPCS: 36415; 80061; 80076

== ENCOUNTER 2024-06-18 09:27 | Emergency (ER) | payer BC, SELFPAY ==
[2024-06-18 09:33] VITALS: BP 169/90; PULSE 129; TEMP 36.9; O2SAT 98; BMI 18.2
--- NOTE | 2024-06-18 09:47 | ECG_ITS ---
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 Measurements Intervals [place] Rate: 102 P: 77 [place]: 142 QRS: 76 QRSD: 74 T: -22 QT: 334 QTc: 393 Interpretive Statements 1120 Sinus tachycardia [address] depression 4564 Tw[place] abnormality, possible lateral ischemia 4664 [place] abnormality, possible inferior ischemia 9150 abnormal ECG Compared to ECG 06/07/2024 18:45:07 ST (T wave) deviation now present Possible ischemia now present Electronically Signed On 06-18-2024 19:59:41 EDT by MAYO CAZARES M.D.
--- NOTE | 2024-06-18 09:48 | ED.GENADUL1 ---
HPI HPI - General Adult General Chief complaint: Recheck/Abnormal Lab/Rx Stated complaint: ABNORMAL LABS Time Seen by Provider: 06/18/24 09:38 Source: patient Mode of arrival: walk-in History of Present Illness HPI narrative: 58-year-old female presents to the emergency department for abnormal blood test. Blood tests were ordered by her neurologist and LFTs were abnormal and she was contacted yesterday and she came in here today. She has no symptoms. No abdominal pain. She had a little bit of diarrhea today but no blood in it. She has a history of lung cancer and sees a cancer specialist in [place] for that issue. She states it has spread to her brain but she was not aware of any liver involvement. Related Data Home Medications ?Medication ?Instructions ?Recorded ?Confirmed benzonatate 100 mg capsule mg PO 06/18/24 buprenorphine 8 mg-naloxone 2 mg film 06/18/24 sublingual film folic acid 1 mg tablet 06/18/24 ondansetron HCl 8 mg tablet mg 06/18/24 pantoprazole 40 mg tablet,delayed mg PO 06/18/24 release prochlorperazine maleate 10 mg mg 06/18/24 tablet rimegepant 75 mg disintegrating mg 06/18/24 tablet (Nurtec ODT) sucralfate 1 gram tablet 06/18/24 Allergies Allergy/AdvReac Type Severity Reaction Status Date / Time Penicillins Allergy Severe Rash Verified 06/07/24 18:39 Opioid HPI Opioid Management Most Recent Opioid Data: Last Pain Scale 0 06/07/24 20:07 06/07/24 Review of Systems ROS Narrative A ten point review of systems is negative except as noted above. PFSH PFSH Social History Little interest or pleasure in doing things: not at all Feeling down, depressed, or hopeless: not at all Exam Narrative Exam Narrative: Nurses note and vital signs reviewed and patient is not hypoxic. General: The patient appears well and in no apparent distress. Patient is resting comfortably on cart. Skin: Warm, dry, no pallor noted. There is no rash noted. Head: Normocephalic, atraumatic Eye: Normal conjunctiva, no drainage Ears, Nose, Mouth, and Throat: oral mucosa is moist. Nares patent. Cardiovascular: Regular Rate and Rhythm Respiratory: Patient is in no distress, no accessory muscle use, lungs are clear to auscultation, no wheezing, rales or rhonchi Back: non-tender, no CVA tenderness bilaterally to percussion. GI: Soft nontender Musculoskeletal: The patient has no evidence of calf tenderness, no pitting edema, symmetrical pulses noted bilaterally Neurological: A&O, normal speech Psychiatric: Cooperative Constitutional Vital Signs, click to edit/add: Last Vital Signs Temp 98.4 F 06/18/24 09:33 Pulse 99 H 06/18/24 10:42 Resp 16 06/18/24 10:42 BP 138/80 06/18/24 10:42 Pulse Ox 99 06/18/24 10:42 Course Vital Signs Vital signs: Vital Signs Temperature 98.4 F 06/18/24 09:33 Pulse Rate 129 H 06/18/24 09:33 Respiratory Rate 16 06/18/24 09:33 Blood Pressure 169/90 H 06/18/24 09:33 Pulse Oximetry 98 06/18/24 09:33 Temperature 98.4 F 06/18/24 09:33 Pulse Rate 99 H 06/18/24 10:42 Respiratory Rate 16 06/18/24 10:42 Blood Pressure 138/80 06/18/24 10:42 Pulse Oximetry 99 06/18/24 10:42 Medical Decision Making MDM Narrative Medical decision making narrative: LFTs are elevated but not to the degree that they were yesterday. She has no symptoms at all. She does not have a gallbladder and CT of the abdomen shows no acute findings. Radiologist and the impression suggest intra and extrahepatic biliary dilatation, probably related to cholecystectomy. They suggested follow-up with MRI or MRCP. She does not require this emergently and was referred for follow-up. Treatment diagnosis and follow-up were discussed with the patient. There is no evidence of metastatic cancer regarding the liver. Recent PET scan showed no intra-abdominal pathology. Differential Diagnosis Differential Diagnosis: Metastasis, medication side effect Lab Data Lab results reviewed: Yes I reviewed the patient's lab results Labs: Lab Results 06/18/24 Range/Units 09:50 WBC 9.1 (4.0-11.0) 10^3/uL RBC 3.59 L (4.20-5.40) 10^6/uL Hgb 11.4 L (12.0-16.0) g/dL Hct 36.3 (36.0-48.0) % MCV 101.1 H (81.0-99.0) fL MCH 31.8 (26.7-34.0) pg MCHC 31.4 (29.9-35.2) g/dL RDW 14.4 (11.0-15.0) % Plt Count 315 (150-450) 10^3/uL MPV 9.8 (9.5-13.5) fL Neut % (Auto) 70.2 (43.0-75.0) % Lymph % (Auto) 18.2 L (20.5-60.0) % [place] % (Auto) 8.1 (1.7-12.0) % Eos % (Auto) 1.5 (0.9-7.0) % Baso % (Auto) 0.2 (0.2-2.0) % Neut # (Auto) 6.4 (1.4-6.5) 10^3/uL Lymph # (Auto) 1.7 (1.2-3.8) 10^3/uL [place] # (Auto) 0.7 (0.3-0.8) 10^3/uL Eos # (Auto) 0.1 (0.0-0.7) 10^3/uL Baso # (Auto) 0.0 (0.0-0.1) 10^3/uL Abs Immat Gran (auto) 0.16 H (0.00-0.03) 10^3/uL Imm/Tot Granulo (auto) 1.8 H (0.0-0.5) % Sodium 138 (136-145) mmol/L Potassium 3.4 L (3.5-5.1) mmol/L Chloride 102 (98-107) mmol/L Carbon Dioxide 29.0 (21.0-32.0) mmol/L Anion Gap 10.4 BUN 22.0 H (7.0-18.0) mg/dL Creatinine 0.75 (0.55-1.02) mg/dL Est GFR ( Amer) >60 (>=60 mL/min/1.73m^2) Est GFR (Non-Af Amer) >60 (>=60 mL/min/1.73m^2) BUN/Creatinine Ratio 29.3 Glucose 118 H (74-106) mg/dL Calcium 8.5 (8.5-10.1) mg/dL Total Bilirubin 0.3 (0.2-1.0) mg/dL Direct Bilirubin 0.2 (0.0-0.2) mg/dL AST 240 H (15-37) U/L ALT 459 H (14-59) U/L Alkaline Phosphatase 967 H (46-116) U/L Total Protein 6.2 L (6.4-8.2) g/dL Albumin 2.5 L (3.4-5.0) g/dL Globulin 3.7 g/dL Albumin/Globulin Ratio 0.7 Amylase 63 (25-115) U/L Lipase 96.0 H (16.0-77.0) U/L Imaging Data CT scan - abdomen: Radiologist's impression: Intra and extrahepatic biliary dilatation, probably related to cholecystectomy Discharge Plan Discharge Chief Complaint: Recheck/Abnormal Lab/Rx Clinical Impression: Elevated LFTs Patient Disposition: Home, Self-Care Time of Disposition Decision: 11:23 Condition: Good Mode of Transportation: Private Vehicle Prescriptions / Home Meds: No Action ondansetron HCl 8 mg tablet sucralfate 1 gram tablet prochlorperazine maleate 10 mg tablet benzonatate 100 mg capsule PO pantoprazole 40 mg tablet,delayed release (DR/EC) PO folic acid 1 mg tablet buprenorphine-naloxone 8-2 mg film Nurtec ODT 75 mg tablet,disintegrating Print Language: Estonian Referrals: Callum Shepherd MD [Physician] - 1 week Callum Sethi MD [Physician] - 1 week Physician,Non-Staff, [Primary Care Provider] - 1 week
[2024-06-18 09:58] LABS: Basophils Percent Auto 0.2 % (0.2-2.0); Eosinophils Absolute Auto 0.1 10^3/uL (0.0-0.7); Eosinophils Percent Auto 1.5 % (0.9-7.0); Hematocrit 36.3 % (36.0-48.0); Hemoglobin 11.4 g/dL (12.0-16.0); Immature Granulocytes Abs Auto 0.16 10^3/uL (0.00-0.03); Immature Granulocytes Pct Auto 1.8 % (0.0-0.5); Lymphocytes Absolute Auto 1.7 10^3/uL (1.2-3.8); Lymphocytes Percent Auto 18.2 % (20.5-60.0); Mean Corpuscular HGB Conc 31.4 g/dL (29.9-35.2); Mean Corpuscular Hemoglobin 31.8 pg (26.7-34.0); Mean Corpuscular Volume 101.1 fL (81.0-99.0); Mean Platelet Volume 9.8 fL (9.5-13.5); Monocytes Absolute Auto 0.7 10^3/uL (0.3-0.8); Monocytes Percent Auto 8.1 % (1.7-12.0); Neutrophils Absolute Auto 6.4 10^3/uL (1.4-6.5); Neutrophils Percent Auto 70.2 % (43.0-75.0); Platelet Count 315 10^3/uL (150-450); Red Blood Count 3.59 10^6/uL (4.20-5.40); Red Cell Distribution Width 14.4 % (11.0-15.0); White Blood Count 9.1 10^3/uL (4.0-11.0)
[2024-06-18 09:59] VITALS: PULSE 106
[2024-06-18 10:18] LABS: Alanine Aminotransferase 459 U/L (14-59); Albumin Globulin Ratio 0.7; Albumin Level 2.5 g/dL (3.4-5.0); Alkaline Phosphatase 967 U/L (46-116); Amylase 63 U/L (25-115); Anion Gap 10.4; Aspartate Amino Transferase 240 U/L (15-37); BUN Creatinine Ratio 29.3; Bilirubin Direct 0.2 mg/dL (0.0-0.2); Bilirubin Total 0.3 mg/dL (0.2-1.0); Calcium 8.5 mg/dL (8.5-10.1); Chloride 102 mmol/L (98-107); Estimated GFR (African America >60 (>=60 mL/min/1.73m^2); Estimated GFR (Non-African Ame >60 (>=60 mL/min/1.73m^2); Globulin 3.7 g/dL; Glucose 118 mg/dL (74-106); Potassium 3.4 mmol/L (3.5-5.1); Sodium 138 mmol/L (136-145); Total Protein 6.2 g/dL (6.4-8.2)
[2024-06-18 10:42] VITALS: BP 138/80; PULSE 99; O2SAT 99
== END 2024-06-18 11:33 | disposition home or self-care (01) ==
PROVIDERS: Emergency Provider Emergency Medicine
DX: R79.89 Other specified abnormal findings of blood chemistry (principal); C34.90 Malignant neoplasm of unspecified part of unspecified bronchus or lung; C79.31 Secondary malignant neoplasm of brain; Z90.49 Acquired absence of other specified parts of digestive tract
CPT/HCPCS: 36415; 74177; 80048; 80076; 82150; 83690; 85025; 93005; 99285; Q9967

== ENCOUNTER 2024-10-29 13:52 | Outpatient (OUT) | payer BC, SELFPAY ==
[2024-10-29 14:47] LABS: Alanine Aminotransferase 20 U/L (14-59); Albumin Globulin Ratio 1.0; Albumin Level 3.3 g/dL (3.4-5.0); Alkaline Phosphatase 107 U/L (46-116); Aspartate Amino Transferase 13 U/L (15-37); Cholesterol 212 mg/dL (<=200); Globulin 3.2 g/dL; HDL Cholesterol 79 mg/dL (40-60); Total Protein 6.5 g/dL (6.4-8.2); Triglycerides 174 mg/dL (<=150); VLDL CHOLESTEROL 34.8 mg/dL
== END 2024-10-29 13:53 | disposition home or self-care (01) ==
LOC: LAB 13:53
PROVIDERS: Visit Provider Nurse Practitioner Family
DX: Z51.81 Encounter for therapeutic drug level monitoring (principal)
CPT/HCPCS: 36415; 80061; 80076

== ENCOUNTER 2025-01-08 14:15 | Outpatient (OUT) | payer BC, SELFPAY ==
--- OUTSIDE RECORDS SUMMARY | 2021-01-27 07:11 | XMS_ITS | Continuity of Care Document ---
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 Name Role Phone Milton Madison DO Unavailable Allergies, Adverse Reactions, Alerts Substance Reaction Status Criticality Penicillins Active No Information Medications Medication Instructions Dosage Effective Dates (start - stop) Status Comments ProAir HFA 90 mcg/actuation aerosol inhaler INHALE 1 PUFF BY MOUTH 4 TIMES A DAY NEEDED - Active Dorita Allergy 180 mg tablet take 1 tablet by oral route every day 180 MG - Active benzonatate 100 mg capsule TAKE 1 CAPSULE BY MOUTH 3 TIMES A DAY NEEDED FOR COUGH - Active ondansetron HCl 8 mg tablet take 1 tablet by oral route 3 times every day 1 tablet - Active pantoprazole 40 mg tablet,delayed release take 1 tablet by oral route every day 40 MG - Active Suboxone 8 mg-[address] 1 & 1/2 films by sublingual route every day allow to dissolve slowly in mouth without chewing or swallowing - Active F11.10 [id number] folic acid 1 mg tablet take 1 tablet by oral route every day 1 MG - Active Bactrim DS 800 mg-160 mg tablet take 1 tablet by oral route every 12 hours 1.00 tablet - No Longer Active Procedures Procedure Date DRUG TEST PRSMV DIR OPT OBS OFFICE/OUTPATIENT VISIT, EST OFFICE/OUTPATIENT VISIT, EST DRUG TEST PRSMV DIR OPT OBS OFFICE/OUTPATIENT VISIT, EST DRUG TEST PRSMV DIR OPT OBS DRUG TEST PRSMV DIR OPT OBS OFFICE/OUTPATIENT VISIT, EST DRUG TEST PRSMV DIR OPT OBS OFFICE/OUTPATIENT VISIT, EST DRUG TEST PRSMV DIR OPT OBS OFFICE/OUTPATIENT VISIT, EST DRUG TEST PRSMV DIR OPT OBS OFFICE/OUTPATIENT VISIT, EST OFFICE/OUTPATIENT VISIT, EST DRUG TEST PRSMV DIR OPT OBS OFFICE/OUTPATIENT VISIT, EST DRUG TEST PRSMV DIR OPT OBS OFFICE/OUTPATIENT VISIT, EST DRUG TEST PRSMV DIR OPT OBS OFFICE/OUTPATIENT VISIT, EST DRUG TEST PRSMV DIR OPT OBS OFFICE/OUTPATIENT VISIT, EST DRUG TEST PRSMV DIR OPT OBS OFFICE/OUTPATIENT VISIT, EST OFFICE/OUTPATIENT VISIT, EST DRUG TEST PRSMV DIR OPT OBS OFFICE/OUTPATIENT VISIT, EST DRUG TEST PRSMV DIR OPT OBS OFFICE/OUTPATIENT VISIT, EST URINALYSIS NONAUTO W/O SCOPE OFFICE/OUTPATIENT VISIT, EST DRUG TEST PRSMV DIR OPT OBS OFFICE/OUTPATIENT VISIT, EST No Charge DRUG TEST PRSMV DIR OPT OBS OFFICE/OUTPATIENT VISIT, EST DRUG TEST PRSMV DIR OPT OBS OFFICE/OUTPATIENT VISIT, EST DRUG TEST PRSMV DIR OPT OBS OFFICE/OUTPATIENT VISIT, EST DRUG TEST PRSMV DIR OPT OBS OFFICE/OUTPATIENT VISIT, EST DRUG TEST PRSMV DIR OPT OBS OFFICE/OUTPATIENT VISIT, EST OFFICE/OUTPATIENT VISIT, EST DRUG TEST PRSMV DIR OPT OBS OFFICE/OUTPATIENT VISIT, EST DRUG TEST PRSMV DIR OPT OBS URINALYSIS NONAUTO W/O SCOPE OFFICE/OUTPATIENT VISIT, EST DRUG TEST PRSMV DIR OPT OBS OFFICE/OUTPATIENT VISIT, EST DRUG TEST PRSMV DIR OPT OBS OFFICE/OUTPATIENT VISIT, EST URINALYSIS NONAUTO W/O SCOPE OFFICE/OUTPATIENT VISIT, EST DRUG TEST PRSMV DIR OPT OBS OFFICE/OUTPATIENT VISIT, EST DRUG TEST PRSMV DIR OPT OBS OFFICE/OUTPATIENT VISIT, EST DRUG TEST PRSMV DIR OPT OBS OFFICE/OUTPATIENT VISIT, EST DRUG TEST PRSMV DIR OPT OBS OFFICE/OUTPATIENT VISIT, EST DRUG TEST PRSMV DIR OPT OBS DRUG SCREENING FENTANYL OFFICE/OUTPATIENT VISIT, EST OFFICE/OUTPATIENT VISIT, EST OFFICE/OUTPATIENT VISIT, EST DRUG SCREENING FENTANYL DRUG TEST PRSMV DIR OPT OBS Advance Directives Directive Yes / No Effective Date File Name No Information Encounters Encounter Description Practice Location Reason(s) For Visit Diagnoses Date Provider Providers Copied on Encounter [facility], [address] [place] [address], [id number] , [place] tel: [phone] [facility] No Information 1 [facility] [address] [place] [address], [id number] , [place]. tel: [phone] [facility], [address] [place] [address], [id number] , [place] tel: [phone] [facility] No Information 1 [facility] DO Max. [address], [place], [id number] , [place]. tel: [phone] OFFICE/OUTPA TIENT VISIT, [facility], [address], [place], [id number] , [place] tel: [phone] [facility] Suboxone (chief complaint) UDS (chief complaint) Opioid dependence, uncomplicatedBody mass index [BMI] 19.9 or less, adult Jan- 1 [facility] DO Max[facility] [address], [place], [id number] , [place]. tel: [phone] OFFICE/OUTPA TIENT VISIT, [facility], [address], [place], [id number] , [place] tel: [phone] [facility] Suboxone (chief complaint) UDS (chief complaint) Body mass index [BMI] 19.9 or less, adultOpioid dependence, uncomplicated 1 [facility] DO Max. [address], [place], [id number] , [place]. tel: [phone] OFFICE/OUTPA TIENT VISIT, [facility], [address], [place], [id number] , [place] tel: [phone] [facility] Suboxone (chief complaint) Body mass index [BMI] 19.9 or less, adultOpioid dependence, uncomplicated 1 [facility] DO Max. [address], [place], [id number] , [place]. tel: [phone] OFFICE/OUTPA TIENT VISIT, [facility], [address], [place], [id number] , [place] tel: [phone] [facility] Suboxone (chief complaint) Opioid dependence, uncomplicatedBody mass index [BMI] 19.9 or less, adult 1 [facility] DO Max[facility] [address], [place], [id number] , [place]. tel: [phone] OFFICE/OUTPA TIENT VISIT, [facility], [address], [place], [id number] , [place] tel: [phone] [facility] Suboxone (chief complaint) Body mass index [BMI] 19.9 or less, adultOpioid dependence, uncomplicated 1 [facility] DO Max. [address], [place], [id number] , [place]. tel: [phone] OFFICE/OUTPA TIENT VISIT, [facility], [address], [place], [id number] , [place] tel:+ [phone] [facility] Suboxone (chief complaint) UDS (chief complaint) Body mass index [BMI] 19.9 or less, adultOpioid dependence, uncomplicated 1 [facility] DO Max. [address], [place], [id number] , [place]. tel: [phone] OFFICE/OUTPA TIENT VISIT, [facility], [address], [place], [id number] , [place] tel:+ [phone] [facility] SUBOXONE (chief complaint) UDS (chief complaint) Opioid dependence, uncomplicatedBody mass index [BMI] 19.9 or less, adult 1 [facility] DO Max. [address], [place], [id number] , [place]. tel: [phone] OFFICE/OUTPA TIENT VISIT, [facility], [address], [place], [id number] , [place] tel: [phone] [facility] Suboxone (chief complaint) UDS (chief complaint) Opioid dependence, uncomplicatedBronchit isUTI 1 [facility] DO Max. [address], [place], [id number] , [place]. tel:+ [phone] OFFICE/OUTPA TIENT VISIT, [facility], [address], [place], [id number] , [place] tel:+ [phone] [facility] Suboxone (chief complaint) Body mass index [BMI] 19.9 or less, adultOpioid dependence, uncomplicated May-3 1 [facility] DO Max. [address], [place], [address] , [place]. tel: [phone] OFFICE/OUTPA TIENT VISIT, [facility], [address], [place], [id number] , [place] tel: [phone] [facility] Suboxone (chief complaint) UDS (chief complaint) Body mass index [BMI] 19.9 or less, adultOpioid dependence, uncomplicated May-0 1 [facility] DO Max. [address], [place], [id number] , [place]. tel: [phone] OFFICE/OUTPA TIENT VISIT, [facility], [address], [place], [id number] , [place] tel: [phone] [facility] Suboxone (chief complaint) UDS (chief complaint) Body mass index [BMI] 19.9 or less, adultOpioid dependence, uncomplicatedCOPD mixed type 1 [facility] DO Max. [address], [place], [id number] , [place]. tel: [phone] OFFICE/OUTPA TIENT VISIT, [facility], [address], [place], [id number] , [place] tel: [phone] [facility] Suboxone (chief complaint) UDS (chief complaint) Opioid dependence, uncomplicatedBody mass index [BMI] 19.9 or less, adult 1 [facility] DO Max. [address], [place], [id number] , [place]. tel: [phone] OFFICE/OUTPA TIENT VISIT, [facility], [address], [place], [id number] , [place] tel: [phone] [facility] Suboxone (chief complaint) UDS (chief complaint) Opioid dependence, uncomplicatedBody mass index [BMI] 19.9 or less, adultMalignant neoplasm of lung, unspecified laterality, unspecified part of lung 0 [facility] DO Max. [address], [place], [id number] , [place]. tel: [phone] OFFICE/OUTPA TIENT VISIT, [facility], [address], [place], [id number] , [place] tel: [phone] [facility] suboxone (chief complaint) Body mass index [BMI] 19.9 or less, adultOpioid dependence, uncomplicatedMalignan t neoplasm of lung, unspecified laterality, unspecified part of lung 0 [facility] DO Max. [address], [place], [id number] , [place]. tel: [phone] OFFICE/OUTPA TIENT VISIT, [facility], [address], [place], [id number] , [place] tel: [phone] [facility] Suboxone (chief complaint) UDS (chief complaint) Body mass index [BMI] 19.9 or less, adultOpioid dependence, uncomplicatedMalignan t neoplasm of lung, unspecified laterality, unspecified part of lung 0 [facility] DO Max. [address], [place], [id number] , [place]. tel: [phone] OFFICE/OUTPA TIENT VISIT, [facility], [address], [place], [id number] , [place] tel: [phone] [facility] Suboxone (chief complaint) UDS (chief complaint) Opioid dependence, uncomplicatedBody mass index (BMI) 19.9 or less, adultMalignant neoplasm of lung, unspecified laterality, unspecified part of lungCOPD mixed type 0 [facility] DO Max. [address], [place], [id number] , [place]. tel: [phone] OFFICE/OUTPA TIENT VISIT, [facility], [address], [place], [id number] , [place] tel: [phone] [facility] UTI SX (chief complaint) UTI (chief complaint) Body mass index (BMI) 19.9 or less, adultUTI 0 [facility] DO Max. [address], [place], [address] , [place]. tel: [phone] OFFICE/OUTPA TIENT VISIT, [facility], [address], [place], [address] , [place] tel: [phone] [facility] Suboxone (chief complaint) drug screen (chief complaint) Body mass index (BMI) 19.9 or less, adultUncomplicated opioid abuseMalignant neoplasm of lung, unspecified laterality, unspecified part of lung 0 [facility] DO Max. [address], [place], [id number] , [place]. tel: [phone] [facility], [address], [place], [id number] , [place] tel: [phone] [facility] Encounter for screening for other viral diseases 0 [facility] DO [facility]. [address], [place], [id number] , [place]. tel: [phone] OFFICE/OUTPA TIENT VISIT, [facility], [address], [place], [address] , [place] tel: [phone] [facility] SUBOXONE (chief complaint) UDS (chief complaint) Uncomplicated opioid abuse 0 [facility] DO Max. [address], [place], [address] , [place]. tel: [phone] OFFICE/OUTPA TIENT VISIT, [facility], [address], [place], [address] , [place] tel: [phone] [facility] SUBOXONE (chief complaint) UDS (chief complaint) Body mass index (BMI) 19.9 or less, adultUncomplicated opioid abuse 0 [facility] DO Max. [address], [place], 9[address] , [place]. tel: [phone] OFFICE/OUTPA TIENT VISIT, [facility], [address], [place], [address] , [place] tel: [phone] [facility] Suboxone (chief complaint) Drug Screen (chief complaint) Uncomplicated opioid abuseBody mass index (BMI) 19.9 or less, adultMalignant neoplasm of lung, unspecified laterality, unspecified part of lung Apr-3 0-202 0 [facility] DO Max. [address], [place], [id number] , [place]. tel: [phone] OFFICE/OUTPA TIENT VISIT, [facility], [address], [place], [id number] , [place] tel: [phone] [facility] SUBOXONE (chief complaint) DRUG SCREEN (chief complaint) Body mass index (BMI) 19.9 or less, adultUncomplicated opioid abuse Apr-0 2-202 0 [facility] DO Max. [address], [place], [address] , [place]. tel: [phone] OFFICE/OUTPA TIENT VISIT, [facility], [address], [place], 859[address] , [place] tel: [phone] [facility] SUBOXONE (chief complaint) UDS (chief complaint) Body mass index (BMI) 19.9 or less, adultUncomplicated opioid abuse Mar-0 5-202 0 [facility] DO Max. [address], [place], 83956[address] , [place]. tel: [phone] OFFICE/OUTPA TIENT VISIT, [facility], [address], [place], 7455[address] , [place] tel: [phone] [facility] f/u cold sx (chief complaint) cough (chief complaint) Body mass index (BMI) 19.9 or less, adultCOPD mixed type Fe-2 8- 0 [facility] DO Max. [address], [place], 8255[address] , [place]. tel: [phone] [facility], [address], [place], [address] , [place] tel: [phone] [facility] Screening for colon cancer 0 [facility] DO Max. [address], [place], [id number] , [place]. tel: [phone] OFFICE/OUTPA TIENT VISIT, [facility], [address], [place], 9737[address] , [place] tel: [phone] [facility] SUBOXONE (chief complaint) DRUG SCREEN (chief complaint) Uncomplicated opioid abuseBody mass index (BMI) 19.9 or less, adultBruising, spontaneousMalignant neoplasm of lung, unspecified laterality, unspecified part of lung 0 [facility] DO Max. [address], [place], [address] , [place]. tel: [phone] OFFICE/OUTPA TIENT VISIT, [facility], [address], [place], 529728[address] , [place] tel: [phone] [facility] SUBOXONE (chief complaint) DRUG SCREEN (chief complaint) Uncomplicated opioid abuseBody mass index (BMI) 19.9 or less, adultUTI 0 [facility] DO Max. [address], [place], [address] , [place]. tel: [phone] OFFICE/OUTPA TIENT VISIT, [facility], [address], [place], [id number] , [place] tel: [phone] [facility] SUBOXONE (chief complaint) DRUG SCREEN (chief complaint) Uncomplicated opioid abuseBody mass index (BMI) 19.9 or less, adultContusion of rib on right side, initial encounter 9 [facility] DO Max. [address], [place], [id number] , [place]. tel: [phone] OFFICE/OUTPA TIENT VISIT, [facility], [address] [place] [address], [id number] , [place] tel: [phone] [facility] SUBOXONE (chief complaint) DRUG SCREEN (chief complaint) Uncomplicated opioid abuseBody mass index (BMI) 19.9 or less, adultCOPD mixed type 9 [facility] Max. [address], [place], [id number] , [place]. tel: [phone] OFFICE/OUTPA TIENT VISIT, [facility], [address], [place], [id number] , [place] tel: [phone] [facility] TALK ABOUT CONDITION (chief complaint) UTIBody mass index (BMI) 19.9 or less, adultMalignant neoplasm of lung, unspecified laterality, unspecified part of lung 9 [facility]. [address], [place], [id number] , [place]. tel: [phone] OFFICE/OUTPA TIENT VISIT, [facility], [address] [place] [address], [id number] , [place] tel: [phone] [facility] SUBOXONE (chief complaint) DRUG SCREEN (chief complaint) Uncomplicated opioid abuseBody mass index (BMI) 19.9 or less, adultMalignant neoplasm of lung, unspecified laterality, unspecified part of lung 9 [facility]. [address], [place], [address]40[address] , [place]. tel: [phone] OFFICE/OUTPA TIENT VISIT, [facility], [address], [place], 815394[address] , [place] tel: [phone] [facility] SUBOXONE (chief complaint) DRUG SCREEN (chief complaint) Cough (chief complaint) Uncomplicated opioid abuseBody mass index (BMI) 19.9 or less, adultBronchitis 9 [facility]. [address], [place], [id number] , [place]. tel: [phone] OFFICE/OUTPA TIENT VISIT, [facility], [address], [place], [id number] , [place] tel: [phone] [facility] SUBOXONE (chief complaint) DRUG SCREEN (chief complaint) Uncomplicated opioid abuse 9 [facility] Max. [address], [place], [address] , [place]. tel:+ [phone] OFFICE/OUTPA TIENT VISIT, [facility], [address], [place], 5622[address]70 , [place] tel: [phone] [facility] SUBOXONE (chief complaint) DRUG SCREEN (chief complaint) Uncomplicated opioid abuseBody mass index (BMI) 19.9 or less, adultCOPD mixed type 9 [facility] Max. [address], [place], 790451390 , [place]. tel:+ [phone] OFFICE/OUTPA TIENT VISIT, [facility], [address], [place], 935894649 , [place] tel: [phone] [facility] SUBOXONE (chief complaint) DRUG SCREEN (chief complaint) Body mass index (BMI) 19.9 or less, adultUncomplicated opioid abuseMalignant neoplasm of lung, unspecified laterality, unspecified part of lung 9 [facility] Max. [address], [place], 8485[address] , [place]. tel:+ [phone] OFFICE/OUTPA TIENT VISIT, [facility], [address], [place], [id number] , [place] tel:+ [phone] [facility] NOT FEELING WELL (chief complaint) Body mass index (BMI) 19.9 or less, adultBronchitis 9 [facility] Max. [address], [place], [address] , [place]. tel:+ [phone] OFFICE/OUTPA TIENT VISIT, [facility], [address], [place], [id number] , [place] tel:+ [phone] [facility] SUBOXONE (chief complaint) DRUG SCREEN (chief complaint) Uncomplicated opioid abuseBody mass index (BMI) 19.9 or less, adult 9 [facility] Max. [address], [place], [address]68[address] , [place]. tel: [phone] [facility], [address], [place], [id number] , [place] tel: [phone] [facility] Suboxone (chief complaint) Drug Screen (chief complaint) Body mass index (BMI) 19.9 or less, adultUncomplicated opioid abuseMalignant neoplasm of lung, unspecified laterality, unspecified part of lungCyst on ear July-0 2 9 [facility] Max. [address], [place], [id number] , [place]. tel: [phone] [facility], [address] [place] [address], [id number] , [place] tel: [phone] [facility] Suboxone (chief complaint) Drug screen (chief complaint) Body mass index (BMI) 19.9 or less, adultUncomplicated opioid abuse Jun-0 - 9 [facility]. [address], [place], 989655[address] , [place]. tel: [phone] [facility], [address] [place] [address], [id number] , [place] tel: [phone] [facility] Suboxone (chief complaint) Drug Screen (chief complaint) Body mass index (BMI) 19.9 or less, adultBronchitisMalign ant neoplasm of lung, unspecified laterality, unspecified part of lungUncomplicated opioid abuse May-0 7 9 [facility] [address], [id number] , [place]. tel: [phone] [facility], [address] [place] [address], [id number] , [place] tel: [phone] [facility] Suboxone (chief complaint) Drug Screen (chief complaint) Body mass index (BMI) 19.9 or less, adultUncomplicated opioid abuseMalignant neoplasm of lung, unspecified laterality, unspecified part of lung Mar-3 9 [facility] DO [facility] [address] [place] [address], [id number] , [place]. tel: [phone] [facility], [address], [place], [id number] , [place] tel: [phone] [facility] No Information 8 Rem[facility] Marquez. [address], [place], [id number] , [place]. tel: [phone] Family History Family Member Type Diagnosis Age At Onset Mother Problem (finding) Alive and well Mother Problem (finding) cancer of colon Mother Problem (finding) Renal disease Mother Problem (finding) hypertension Brother Problem (finding) Leukemia Father Problem (finding) hypertension Brother Problem (finding) cancer of colon Sister Problem (finding) Alive and well Brother Problem (finding) Alive and well Father Problem (finding) Alive and well Payers Payer name Insurance type Covered alliance party ID Barbara santillanjessie(s) Kaur CHRISTOPHER [id number] Social History Type Description Quantity Date Captured Comments Alcohol Use Details Unknown Caffeine Use Details Unknown Tobacco Use Status Smoking Status No Information Sex Female Sexual Orientation Straight or heterosexual Feb Gender Identity Female Chief Complaint And Reason For Visit No Information Reason For Referral Reason For Referral No Information Plan Of Treatment Date Type Action Status Goal Dietary management education , guidance, and counseling completed Goal Tobacco cessation counseling completed Goal Dietary management education , guidance, and counseling completed Goal Tobacco cessation counseling completed Goal Dietary management education , guidance, and counseling completed Goal Tobacco cessation counseling completed Goal Tobacco cessation counseling completed Goal Dietary education for weight gain completed Goal Tobacco cessation counseling completed Goal Dietary management education , guidance, and counseling completed Goal Dietary management education , guidance, and counseling completed Goal Tobacco cessation counseling completed Goal Dietary management education , guidance, and counseling completed Goal Tobacco cessation counseling completed Goal Tobacco cessation counseling completed Goal Tobacco cessation counseling completed Goal Dietary education for weight gain completed Goal Dietary management education , guidance, and counseling completed Goal Tobacco cessation counseling completed Goal Dietary management education , guidance, and counseling completed Goal Tobacco cessation counseling completed Goal Dietary management education , guidance, and counseling completed Goal Tobacco cessation counseling completed Goal Dietary management education , guidance, and counseling completed Goal Tobacco cessation counseling completed Goal Tobacco cessation counseling completed Goal Dietary education for weight gain completed Goal Tobacco cessation counseling completed Goal Dietary management education , guidance, and counseling completed Goal Dietary management education , guidance, and counseling completed Goal Tobacco cessation counseling completed Goal Tobacco cessation counseling completed Goal Dietary management education , guidance, and counseling completed Goal Dietary management education , guidance, and counseling completed Goal Tobacco cessation counseling completed Goal Dietary management education , guidance, and counseling completed Goal Tobacco cessation counseling completed Goal Dietary management education , guidance, and counseling completed Goal Tobacco cessation counseling completed Goal Dietary management education , guidance, and counseling completed Goal Tobacco cessation counseling completed Goal Dietary management education , guidance, and counseling completed Goal Tobacco cessation counseling completed Goal Dietary management education , guidance, and counseling completed Goal Tobacco cessation counseling completed Goal Tobacco cessation counseling completed Goal Dietary management education , guidance, and counseling completed Goal Tobacco cessation counseling completed Goal Dietary management education , guidance, and counseling completed Goal Tobacco cessation counseling completed Goal Dietary management education , guidance, and counseling completed Goal Tobacco cessation counseling completed Goal Dietary management education , guidance, and counseling completed Goal Tobacco cessation counseling completed Goal Dietary management education , guidance, and counseling completed Goal Tobacco cessation counseling completed Goal Tobacco cessation counseling completed Goal Tobacco cessation counseling completed Goal Dietary management education , guidance, and counseling completed Goal Tobacco cessation counseling completed Goal Tobacco cessation counseling completed Goal Dietary education for weight gain completed Goal Tobacco cessation counseling completed Goal Dietary management education , guidance, and counseling completed Goal Tobacco cessation counseling completed Goal Dietary management education , guidance, and counseling completed Goal Tobacco cessation counseling completed Goal Dietary management education , guidance, and counseling completed Goal Dietary management education , guidance, and counseling completed Goal Tobacco cessation counseling completed Referral Ordered: SCREENING COLONOSCOPY [id number] Order: Lab OrderCompliance Drug Analysis, Ur ([id number]), Collected on: , Sent on: [id number] Order: Lab OrderUrine, Naloxone Urine Cofirm ([id number]), Collected on: , Sent on: [id number] Order: Lab OrderCompliance Drug Analysis, Ur ([id number]), Collected on: [id number] Order: Lab Order Urine, Naloxone Urine Cofirm ([id number]), Collected on: [id number] History Of Present Illness Encounter Date Complaint History Of Prese nt Illness UDS UDS performed, p t + for BUP & THCTGrodi 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 Pt given letter today informing him Dr. Madison leaving our office & last day was 02/03. No medications or apts will be made after this day Pt signed letter and verbalized understanding. OARRS completed, last filled Suboxone 12/25/20TGrodi STATION MANAGER Pt states doing well not having any new problems ,above was reviewed and agreed with MLP Suboxone Pt here for Subo xone refill. Pt has been on 12mg since 11/02/2017. Sees counselor at the [facility]. OARRS completed, last refill of Suboxone on 11/27. Pt denies any other issues or concerns. ALLYSSA Valderrama UDS UDS-positive for BUP, THC, TCA. ALLYSSA Valderrama Suboxone Pt here for Subo xone refill. Pt has been on 12mg since 11/02/2017. Sees counselor at the [facility]. OARRS completed. Last refill of Suboxone on 10/30/2020. No other complaints. KconleyRNRUDS: Positive for BUP, TCA, THC Pt states doing well not having any new problems ,above was reviewed and agreed with [facility] Suboxone Pt here for Subo xone refill. Pt has been on 12mg since 11/02/2017. Sees counselor at the [facility]. OARRS completed. Last refill of Suboxone on 10/02/2020. No other complaints. KconleyRNRUDS: positive for TCA, THC, BUP Pt states doing well not having any new problems ,above was reviewed and agreed with [facility] Suboxone Pt here for Subo xone refill. Pt has been on 12mg since 11/02/2017. Sees counselor at the [facility]. OARRS completed. Last refill of Suboxone on 09/04/2020. No other complaints. KconleyRNUDS: positive for BUP, TCA, THCUrine sent out to [facility] Pt states doing well not having any new problems ,above was reviewed and agreed with [facility] UDS UDS - Positive f or BUP and THC. Filiberto Suboxone Pt here for Subo xone refill. Pt has been on 12mg since 11/02/2017. Sees counselor at [facility]. OARRS completed. Last refill of Suboxone 08/05/2020. Voices no other problems or concerns at this time. Filiberto. Pt states doing well not having any new problems ,above was reviewed and agreed with [facility] SUBOXONE Pt here for Subo xone refill, she has been on 12mg since 11/02/2017. [facility]. OARRS completed, last filled Suboxone on 07/10/20. Pt denies any other issues or concerns. ALLYSSA Valderrama Pt states doing well not having any new problems ,above was reviewed and agreed with [facility] UDS UDS-positive for BUP, THC. ALLYSSA Valderrama Suboxone Pt here today fo r Suboxone refill. PT HAS BEEN ON 12MG. Pt states she feels like she is getting sick, scratchy throat, nasal congestion, slight fever (nothing over 100), productive clear cough. Pt states this is day 3 of symptoms. Pt states she was put on medication for UTI but still feels like she has UTI (feels like she has to urinate). OARRS completed, last filled Suboxone 06/12TGrodi STATION MANAGER ,above was reviewed and agreed with [facility] UDS UDS performed, p t + forTGrodi STATION MANAGER Suboxone Patient here for suboxone refill. Patient is doing well and has no issues at this time. Did complete covid 19 vaccine series. Francisco Bernal.OARRS- Suboxone 05/15/20.Francisco BernalUDTanya- Positive THC, FEN and BUP. Francisco Bernal. Pt states doing well not having any new problems ,above was reviewed and agreed with [facility] UDS UDS performed, p t+ for BUP & THCTGrodi 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 Pt states she got the first dose of Pfizer vaccine this past Monday. Pt denies any issues with the vaccine except a sore armOARRS completed, TGrodi STATION MANAGER Pt states doing well not having any new problems ,above was reviewed and agreed with [facility] UDS UDS performed, p t + for BUP & THCTGrodi STATION MANAGER Suboxone PT here today fo r Suboxone refill. OARRS completed, last filled Suboxone 03/20/20TGrodi STATION MANAGER PT states she has been having sinus issues for the past few days but not very sick ,above was reviewed and agreed with [facility] UDS UDS performed, p t + for THC & BUPTGrodi 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 PT HAS BEEN ON 12MG SINCE 11/02/17. Pt states that her father just last night. OARRS completed, last filled Suboxone 02/20TGrodi LPNPT states she feels good her cancer is still in remission, has a while before the next test for spread, Pt is otherwise doing well ,above was reviewed and agreed with [facility] UDS UDS performed, p t + for BUP & THC FAINT FENTANYLTGrodi 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 PT HAS BEEN ON 12MG SINCE 11/02/17. OARRS completed, last filled Suboxone 01/22TGrodi STATION MANAGER Pt states doing well not having any new problems ,above was reviewed and agreed with [facility] suboxone Patient here for suboxone. Patient has been on 12mg since 11/04/2017. Patient had scan last monday and goes tomorrow for the results. No issues at this time.Francisco Bernal.OARRS completed-last fill 12/26/19 qt 45.Francisco BernalUDS-(+) THC and BUP Francisco Bernal. Pt states doing well not having any new problems ,above was reviewed and agreed with [facility] UDS UDS performed, p t + for BUP & THCTGrodi 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 PT states she has been very nauseous the past week. Pt states the Zofran is helping for about an hour then the nauseousness comes right back.OARRS completed, last filled Suboxone TGrodi STATION MANAGER ,above was reviewed and agreed with [facility] UDS UDS performed, p t + for BUP & THCTGrodi 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 PT HAS BEEN ON 12MG SINCE 11/04/17OARRS completed, last filled Suboxone 10/30TGrodi LPNPt states she has been having cough and sinus issue for the last few weeks otherwise doing well UTI The severity of the problem is moderate. The problem has worsened. The symptoms are constant. Presenting/Initial symptoms include burning, lower back pain, suprapubic pain and urgency. Symptoms are not associated with diabetes, , recent catheterization or recurring urinary tract infection. Aggravating factors include urination. Symptoms are not aggravated by baths or certain foods. Symptoms are not relieved by increased fluids, OTC analgesics, pain medication or rest. Associated symptoms include dysuria, fatigue, frequency and urgency. Pertinent negatives include abdominal pain, dribbling, fever, nausea, nocturia, pelvic pain, pressure, rash or retention. UTI SX Pt here today fo r UTI symptoms. Pt states it has been a week since its started. Pt states she has burning with urination, lower back pain. No other issues or concernsTGrodi STATION MANAGER Suboxone Pt here for Subo xone refill, she has been on 12mg since 11/04/17. Pt does not attend counseling. OARRS COMPLETED, LAST FILLED SUBOXONE ON 09/05/19. No other complaints at this time. Gavin Montiel RN Pt states doing well not having any new problems ,above was reviewed and agreed with [facility] drug screen Urine drug scree n performed today. Pt (+) BUP, THC. Gavin Montiel RN SUBOXONE Pt here for Subo xone refill, she has been on 12mg since 11/04/17. Pt does not attend counseling. OARRS COMPLETED, LAST FILLED SUBOXONE ON 08/08/19. Pt denies any other issues or concerns. Jaqueline Valderrama going to see GI specialist later today for her abdominal pain UDS UDS+BUP, THC, ET G ALLYSSA Valderrama SUBOXONE Pt here for Subo xone refill, she has been on 12mg since 11/04/17. [facility]. OARRS COMPLETED, LAST FILLED SUBOXONE ON 07/10. Pt denies any issues or concerns. ALLYSSA Valderrama RNPt happy her last CT show the cancer size did not change, and she is just not happy that her strength is still not good otherwise doing well ,above was reviewed and agreed with [facility] UDS UDS +BUP, THC. Tanya Moon RN Suboxone Pt here today fo r Suboxone film refill. PT HAS BEEN ON 12MGPT states she has her next scan coming up next week. OARRS completed, last filled Suboxone 4/2TGrodi STATION MANAGER Drug Screen Rapid urine drug screen performed, pt + for BUPTGrodi STATION MANAGER SUBOXONE Pt here today fo r Suboxone film refill. PT HAS BEEN ON 12MG. OARRS completed, last filled Suboxone 3/5TGrodi STATION MANAGER Pt states doing well not having any new problems Pt husbands has a cough and it worries her, ,above was reviewed and agreed with [facility] DRUG SCREEN Rapid urine drug screen performed, pt + for BUP & THCTGrodi STATION MANAGER UDS UDS+ BUP, THC SR jayant SPIVEY SUBOXONE Pt here today fo r Suboxone refill. Pt has been on 12mg since 11/04/17. [facility] OARRS COMPLETED, LAST FILLED SUBOXONE 04/18/19. Pt denies any other issues or concerns. Anila Parsons states she is feeling better and is over the cold, ,above was reviewed and agreed with [facility] f/u cold sx Pt here today wi th c/o cold symptoms. Pt c/o stuffy/runny nose, productive cough of clear sputum, chest feels heavy, denies any fever or chills, started yesterday, pt taking Tylenol OTC, denies any further issues or concerns. Anila SPIVEY cough Onset: sudden. S everity: moderate. The patient describes the cough as productive (of clear sputum). It occurs persistently. Context: COPD, sick family member, smoke exposure and lung cancer. There are no aggravating factors. There are no relieving factors. Associated symptoms include chills, cough, fatigue, hoarseness, nasal congestion, post-nasal drainage, sinus pressure and sore throat. Pertinent negatives include dyspnea, dyspnea on exertion, epistaxis, fever, heartburn, hemoptysis, night sweats and pleuritic pain. SUBOXONE Pt here today fo r Suboxone film refill. PT HAS BEEN ON 12MG PT states she was in the grocery store with her grandchildren and the corner of her L eye is black and blue. The other side is starting to turn that color too. Pt denies injury to the area. Pt states she also has a cough and feels like some swollen lymph nodes in her neck on the L side. [facility], [facility] Suboxone 03/21TGrodi STATION MANAGER ,above was reviewed and agreed with [facility] DRUG SCREEN Rapid urine drug screen performed, pt + for BUP & ETGTGrodi STATION MANAGER SUBOXONE Pt here today fo r Suboxone film refill. PT HAS BEEN ON 12MGPt is attending [facility]. PT states she thinks she has a UTI, Pt has frequent urination. PT states she has been throwing up alot. Pt has been out of her nausea medication and insurance limits how much she can get a month. OARRS completed, last filled Suboxone 02/21TGrodi LPNPt states she is otherwise doing well with her cancer and still want to cont on current regiment DRUG SCREEN Rapid urine drug screen performed, pt + for BUP, THC, FAINT BENZOTGrodi STATION MANAGER SUBOXONE Pt here today fo r Suboxone film refill. PT HAS BEEN ON 12MGPt is attending counseling at the cancer center. PT has film wrappers with her today. Pt states she thinks she injured 2 ribs on her R side. PT was reaching over to the passenger floor in her car and felt her emergency break lever go up under her rib and heard a pop. OARRS completed, last filled Suboxone 01/24TGrodi LPNPt states it is slowly getting better otherwise she is doing well, needs to find new oncologist the last on left the group DRUG SCREEN Rapid urine drug screen performed, pt + for BUP & THCTGrodi STATION MANAGER DRUG SCREEN Rapid urine drug screen performed, pt + for BUP, ETG & THCTGrodi STATION MANAGER SUBOXONE Pt here today fo r Suboxone film refill. PT states she thinks she is getting sick again. Pt has nasal congestion, a clear productive cough, scratchy throat, sinus pressure, headaches. [facility] PT has film wrappers with her today. PT has 45 wrappers with her today but has 5 different lot numbers. There is also sharpie markers on some of the wrappers as well. OARRS completed, last filled Suboxone LPNPT was very happy with last Ct report showing the Lung Mass/Cancer has not change since last Chemotherapy. TALK ABOUT CONDITION Pt here tod ay with to talk and ask questions about her illness. Pt states she also thinks she may have a UTI so wants checked for that. Pt states she had a scan done today from Dr. Beaver. Pt states she follows up with him next Monday. No other issues or concerns todayTGrodi LPNPt and pt wanted to discuss her cancer and the care she is going to have and where things are. Pt wants to make sure her understands that she is not going to survive this cancer that it is stage 4 lung Ca, and she has respond well to the chemo but it is not a cure just prolongs life. We discussed this and that they need to talk with Dr Beaver about how the lung scan turned out. SUBOXONE Pt here today fo r Suboxone film refill. PT HAS BEEN ON 12MGPt is attending counseling at the cancer center. Pt has film wrappers with her today. OARRS completed, last filled Suboxone 11/29TG LPNPt is worried her lung cancer is getting worse has a scan coming up DRUG SCREEN Rapid urine drug screen performed, pt + for BUP & THCTGrodi STATION MANAGER DRUG SCREEN Rapid urine drug screen performed, pt + for BUP & THCTGrodi STATION MANAGER SUBOXONE Pt here today fo r Suboxone film refill. PT is attending counseling at the cancer center. PT states she has had a cough since Monday and was not feeling well. Pt states it is a dry cough that is sometimes productive that is clear in color. Pt states her throat is dry and scratchy. Pt had a small fever on Monday and Monday. OARRS completed, last filled Suboxone 11/01TGrodi STATION MANAGER Cough Onset: gradual. Severity: moderate. The patient describes the cough as hacking and non-productive. Context: COPD. Symptoms are aggravated by stress. Associated symptoms include cough, fatigue, fever and rhinitis. Pertinent negatives include dyspnea. SUBOXONE PT here today fo r Suboxone film refill. PT is attending counseling at the cancer center. Pt has film wrappers with her today. PT states she had a really bad UTI last week but had refills on an antibiotic. OARRS completed, last filled Suboxone 10/04TGrodi STATION MANAGER DRUG SCREEN Rapid urine drug screen performed, pt + for BUP & THCTGrodi STATION MANAGER Pt states doing well not having any new problems ,above was reviewed and agreed with DRUG SCREEN Rapid urine drug screen performed, pt + for BUP & THCTGrodi STATION MANAGER SUBOXONE Pt here today fo r Suboxone film refill. Pt is attending [facility]. Pt states for about 5-6 days now she has had a cough. She states it is so bad it will wake her up at night. OARRS completed, last filled Suboxone 09/06TGrodi LPNPt also notes she has lost weight again. SUBOXONE PT here today fo r Suboxone film refill. Pt is attending [facility] the [facility]. pt states she is feeling much better since her last apt. Pt states her feet are swelling up. This started on Monday. She is not sure what causing this. OARRS completed, last filled Suboxone 08/09TGrodi STATION MANAGER ,above was reviewed and agreed with DRUG SCREEN Rapid urine drug screen performed, pt + for BUP & THCFentanyl NEGTGrodi STATION MANAGER NOT FEELING WELL Pt here today w ith complaints of not feeling well and a cough. Pt was put on a cough medication ( Tessalon Pearles) that did not work for her. Pt states symptoms started last . Symptoms include; productive clear cough, runny nose, facial pressure, sore throat off and on. Pt states she noticed she has been wheezing and has some shortness of breath. Pt denies fever. PT has not tried anything OTC besides Tylenol. PT NEEDS REFILL ON ZOFRANPt has no other issues/concerns today. Barbara RAY ,above was reviewed and agreed with DRUG SCREEN Rapid urine drug screen performed.Patient positive for BUP and THC.Fentanyl dip negative.Ros Chan SUBOXONE Patient presents for Suboxone film refill. Patient did bring all films with her today.Attending counseling with social science research assistant at [facility]. OARRS completed. Last filled Suboxone 07/12/18.No other problems or concerns today.Ros White. Pt states doing well not having any new problems ,above was reviewed and agreed with Drug Screen Rapid urine drug screen performed, pt + for THC, BUP & possible benzo, oxyFentanyl very very light. Barbara RAY Suboxone Pt here today fo r Suboxone, Pt sees a therapist at the cancer center. Pt has 2 active types of lung cancer. Pt a little worried today, she said they are going to do a full body scan on her soon. She said she has not had one in a year now and it makes her nervous. Pt has films with her today. OARRS completed, last filled Suboxone 06/14TGrodestella URBANt notes she got blood out of left ear earlier today Drug screen Urine drug posit jose juan for BUP, BZO and THC. Fentanyl- Neg. Francisco Bernal. Suboxone Patient here for suboxone. [facility]. Patient declines Hep A. Patient has no issues at this time.Patient has films with her today.OARRS completed. Last fill was 05/18/18 suboxone.Francisco Bernla.Pt states that sis is doing well at this time Suboxone pt here today fo r Suboxone film refill. Pt states she is not attending counseling. Pt states she talks to a social science research assistant at the [facility] center alot. Informed her of new law and she may need to do counseling. Pt has film wrappers with her today. OARRS completed, last filled 04/19TGrodi LPNPt states they had to stop the chemo for her lung cancer because he had pancreatitis Drug Screen Rapid urine drug screen performed, pt + for THC, Bup, possible benzo & oxy. Pt has active lung cancer. Not sending out urine. Fentanyl -TGrodi STATION MANAGER Suboxone Pt here today fo r Suboxone film refill. Pt states she is not attending counseling at this time. Pt does not have films with her this time. Informed her she needs to bring them every visit. OARRS completed, last filled 03/22 for [address] Boyce states she is doing well, not having all of problems her cancer treatment is on hold because she got sick a few weeks ago. Drug Screen rapid urine drug screen performed, pt + for buprenorphine, benzo, & THCTGrodi STATION MANAGER Functional Status Date Functional Assessmen t No Information Instructions Date Instruction Additional Infor april Dietary management e ducation, guidance, and counseling Related to Body mass index [BMI] 19.9 or less, adult Dietary management e ducation, guidance, and counseling Related to Body mass index [BMI] 19.9 or less, adult Dietary management e ducation, guidance, and counseling Related to Body mass index [BMI] 19.9 or less, adult Dietary education for weight gai n Related to Body mass index [BMI] 19.9 or less, adult Dietary management e ducation, guidance, and counseling Related to Body mass index [BMI] 19.9 or less, adult Dietary management e ducation, guidance, and counseling Related to Body mass index [BMI] 19.9 or less, adult Dietary management e ducation, guidance, and counseling Related to Body mass index [BMI] 19.9 or less, adult Dietary education for weight gai n Related to Body mass index [BMI] 19.9 or less, adult Dietary management e ducation, guidance, and counseling Related to Body mass index [BMI] 19.9 or less, adult Dietary management e ducation, guidance, and counseling Related to Body mass index [BMI] 19.9 or less, adult Dietary management e ducation, guidance, and counseling Related to Body mass index [BMI] 19.9 or less, adult Dietary management e ducation, guidance, and counseling Related to Body mass index [BMI] 19.9 or less, adult Dietary education for weight gai n Related to Body mass index [BMI] 19.9 or less, adult Weight gain advised Related to B hailee mass index [BMI] 19.9 or less, adult Dietary management e ducation, guidance, and counseling Related to Body mass index (BMI) 19.9 or less, adult Dietary management e ducation, guidance, and counseling Related to Body mass index (BMI) 19.9 or less, adult Dietary management e ducation, guidance, and counseling Related to Body mass index (BMI) 19.9 or less, adult Dietary management e ducation, guidance, and counseling Related to Body mass index (BMI) 19.9 or less, adult Dietary management e ducation, guidance, and counseling Related to Body mass index (BMI) 19.9 or less, adult Dietary management e ducation, guidance, and counseling Related to Body mass index (BMI) 19.9 or less, adult Dietary management e ducation, guidance, and counseling Related to Body mass index (BMI) 19.9 or less, adult Dietary management e ducation, guidance, and counseling Related to Body mass index (BMI) 19.9 or less, adult Dietary management e ducation, guidance, and counseling Related to Body mass index (BMI) 19.9 or less, adult Weight gain advised Related to B hailee mass index (BMI) 19.9 or less, adult Dietary management e ducation, guidance, and counseling Related to Body mass index (BMI) 19.9 or less, adult Dietary management e ducation, guidance, and counseling Related to Body mass index (BMI) 19.9 or less, adult Dietary management e ducation, guidance, and counseling Related to Body mass index (BMI) 19.9 or less, adult Dietary management e ducation, guidance, and counseling Related to Body mass index (BMI) 19.9 or less, adult Dietary management e ducation, guidance, and counseling Related to Body mass index (BMI) 19.9 or less, adult Weight gain advised Related to B hailee mass index (BMI) 19.9 or less, adult Weight gain advised Related to B hailee mass index (BMI) 19.9 or less, adult Dietary management e ducation, guidance, and counseling Related to Body mass index (BMI) 19.9 or less, adult Dietary education for weight gai n Related to Body mass index (BMI) 19.9 or less, adult Dietary management e ducation, guidance, and counseling Related to Body mass index (BMI) 19.9 or less, adult Dietary management e ducation, guidance, and counseling Related to Body mass index (BMI) 19.9 or less, adult Dietary management e ducation, guidance, and counseling Related to Body mass index (BMI) 19.9 or less, adult Dietary management e ducation, guidance, and counseling Related to Body mass index (BMI) 19.9 or less, adult Assessments Type Assessment Date No Information Goals Health Concern Goal Type Priority Status Date Patient needs education to manage opioid dependence. Pt has been on 12mg since 2018 Keep patient sober and stable at 12mg. Continue to prescribe Suboxone to patient Patient Goal New Patient Care Teams Name Effective Dates (start - stop) Status Members No Information
--- OUTSIDE RECORDS SUMMARY | 2025-01-08 14:17 | XMS_ITS | Clinical Summary ---
Author Organization [facility] Address [address] [place] [address] Phone Care Team Providers Care Communications Media Professor Name Role Phone Unavailable Primary Care Provider Unavailabl e Social History Tobacco UseTypesPacks/DayYears UsedDateSmoking Tobacco: Never Assessed CommentsUnknownSex and Gender InformationValueDate RecordedSex Assigned at Not on fileLegal DuvNbdkzr74/25/2022 10:22 AM ESTGender IdentityNot on file Sexual OrientationNot on file Plan of Treatment Not on file
--- OUTSIDE RECORDS SUMMARY | 2025-01-08 14:17 | XMS_ITS | Clinical Summary ---
Author Organization [facility] Healthcare Address [address] [place] [address] Care Team Providers Care House Mover Helper Name Role Phone Fili Mejias DO Unavailable Allergies Active AllergyReactionsCriticalityNoted PbrrObovdhwxEjojlkxdegmYnvtcdc07/02/2017 Medications MedicationSigDispense QuantityRefillsLast FilledStart DateEnd DateStatus acetaminophen (Tylenol) 325 MG tablet every 6 (six) hoursActive aspirin 81 MG EC tablet Take 81 mg by mouth in the morning.Active benzonatate (Tessalon) 100 MG capsule 02/28/2024ctive Buprenorphine HCl-Naloxone HCl (Suboxone) 8-2 MG SL film Active famotidine (Pepcid) 20 MG tablet Take 20 mg by mouth in the morning.02/19/2024ctive folic acid (Folvite) 1 MG tablet Take 1 mg by mouth in the morning.12/19/2023ctive furosemide (Lasix) 20 MG tablet Take 20 mg by mouth in the morning.02/02/2024ctive OLANZapine (ZyPREXA) 5 MG tablet Take 1 tablet by mouth at uukmfkq8008/22/2023ctive ondansetron (Zofran) 8 MG tablet Take 8 mg by mouth every 8 (eight) hours if pfyyvx1902/02/2024ctive pantoprazole (ProtoNix) 40 MG EC tablet Take 40 mg by mouth Daily12/23/2023ctive KLOR-CON 20 MEQ ER tablet Take 20 mEq by mouth Daily01/26/2024ctive prochlorperazine (Compazine) 10 MG tablet Take 10 mg by mouth every 6 (six) hours if pjsoqx0802/02/2024ctive dextrose 5 % solution 50 mL with pembrolizumab 100 MG/4ML solution Infuse into a venous catheter 1 (one) timeActive Rimegepant Sulfate (Nurtec) 75 MG tablet dispersible Indications:Episodic migraineTake one 75 mg tablet by mouth every other day for migraine prevention. Allow tablet to dissolve entirely. 16 tablet 5Active levothyroxine (Synthroid, Levoxyl) 25 MCG tablet Take by mouth in the morning. Take before meals.Active Active Problems ProblemNoted DateDiagnosed DateLung cancer metastatic to bone01/12/2024 Resolved Problems ProblemNoted DateDiagnosed DateResolved DateAdmission for ozegtjsdevbl02/20/2025 10/30/2024 Overview (10/30/2024): Last 03/05/18 Age-related osteoporosis without current pathological /20/2025 10/30/2024arpal tunnel syndrome, lefturrent smoker Overview (10/30/2024): Added secondary to documentation in Social History. Epigastric painFamily history of colon wvijer2010/30/2024 10/30/2024Herniated cervical discHistory of musculoskeletal esafjtfe14Lung massNon-ulcer dyspepsia Primary malignant neoplasm of lungRenal stoneSpinal cord goyjfqkeyyr41UTI symptoms Vitamin D hinyxnkrnq12Vomiting10/30/2024 10/30/2024Malignant neoplasm of upper lobe of left lungRed blood cell antibody cmqngylj04 Overview (10/30/2024): See Blood Bank Report, Antibody Interpretation for details. Discharge planning pgzhys52entrilobular udrnzdsee05/05/2023 10/30/2024Malignant neoplasm of lower lobe of right lung Pain, postoperative, acuteNausea1nemia ough in adultPeptic ulcer11/06/2017 10/30/2024nemia due to antineoplastic ljielkdjaqlj51 Gaaxsqstqwcljcjy16Malignant neoplasm of unspecified part of right bronchus or lunghronic bilateral low back pain without mpktiktw29Nicotine use alwpbjrj56 Encounters DateTypeDepartmentCare ZzgtNhvddoqeqkw60/21/2025 2:30 PM EDTOffice Visit [facility] [address] [place] [address] Rico Boyce DO Tobacco abuse (Primary Dx); Chronic rhinitis; Tongue urmonw2510/31/2024amboo [facility]sheet [facility] [address] [place] [address] Rico Boyce DO 10/31/2024Travelfrom Last 3 Months Immunizations ImmunizationAdministration DatesNext DueInfluenza, Xeplhrejmnj20/06/2022 Influenza, injectable, MDCK, preservative free, giabeeuvmxmf60/05/2020Influenza, injectable, quadrivalent, preservative free1Pneumococcal Conjugate PCV 3Pneumococcal Polysaccharide VPQJ629803/20/2001Td (adult), unspecified 10/03/2001 Family History Medical HistoryRelationNameCommentsCancerBrotherHypertensionFatherArthritis MotherCancerMotherDiabetesMotherDiabetesSisterRelationNameStatusCommentsBrother FatherMotherSister Social History Tobacco UseTypesPacks/DayYears UsedDateSmoking Tobacco: Every DayCigarettes Smokeless Tobacco: Never Tobacco Cessation:Ready to Q uit: Not Asked; Counseling Given: Not Answered CommentsUnknownSex and Gender InformationValueDate RecordedSex Assigned at EnymfLitybd55/07/2024 1:35 PM EDTLegal WlyYeznay03/15/2023 6:53 PM EDTGender TlbccnfiPzkidn06/07/2024 1:35 PM EDTSexual OrientationNot on file Last Filed Vital Signs Vital SignReadingTime TakenCommentsBlood Zqinaesn913/8004 2:42 PM EDT Diuel0480 1:00 PM ESTTemperature--Respiratory Rate--Oxygen Saturation-- Inhaled Oxygen Concentration--Jinanv97.8 kg (90 lb)10/31/2024 2:12 PM EDTHeight 149.9 cm (4' 11 )10/31/2024 2:12 PM EDTBody Mass Index18.1808 2:12 PM EDT Plan of Treatment Health MaintenanceDue DateLast DoneCommentsCT Abwxcsyjcgpl81/17/1964Colonoscopy 1963Colorectal Cancer Zowchywkx44/17/1964FIT-DNA1963FIT1963 FOBT06/28/19637176Rhgxlcqqafqoj12/17/1964Pap Smear06/27/1984Cervical Cancer Xnarofzsf96/17/1994HPV/Ahqoin0306/27/19938130Jrlkrcsxu54/17/2004Influenza Vaccine (#1) /08/2021, 11/26/2020, 01/16/2020 Insurance [address] [place] [address] Care Teams Team MemberRelationshipSpecialtyStart DateEnd Date Fili Mejias DO [address] [place] [address] Referring PhysicianNeurology1
--- OUTSIDE RECORDS SUMMARY | 2025-01-08 14:24 | XMS_ITS | CCD ---
Author Organization [facility] Care Team Providers Care [employer] Supervisor Name Role Phone Milton Madison Primary Care Provider Gasper Fong Unavailable Shaniqua OWUSU Mohamed Unavailable Shaniqua OWUSU Mohamed Unavailable Andry OWUSU, Otoniel Unavailable [phone] Chris Blackburn Unavailable Milton Madison Primary Care Provider Gasper Fong Unavailable Shaniqua OWUSU, Mohamed Unavailable Andry OWUSU Otoniel Unavailable [phone] DO Finn Mejias Attending Provider [phone] NO FAMILY, PHYSICIAN Primary Care Provider Unava ilable Milton Madison Primary Care Provider Gasper Fong Unavailable Shaniqua OWUSU Mohamed Unavailable [phone] Andry OWUSU Otoniel Unavailable [phone] Gilson Vergara Unavailable Milton Madison Primary Care Provider Gasper Fong Unavailable Shaniqua OWUSU Mohamed Unavailable [phone] Andry OWUSU Otoniel Unavailable [phone] Dolores Mcgovern MDamed E Unavailable [phone] NO FAMILY, PHYSICIAN Primary Care Unavailable Finn Mejias Attending Unavailabl e Finn Mejias Admitting Unavailabl e KARAMLOU, OTONIEL Attending Unavailable KARAMLOU, OTONIEL Admitting Unavailable REQUEST, NONE LISTED Primary Care Unavaila ble ZIEBER, DR SARA Maedows Consulting Unavailable KARAMLOU, OTONIEL Consulting Unavailable MISC, DR GIRALDO Attending Unavailable REQUEST, NONE LISTED Primary Care Unavaila ble MISC, DR GIRALDO Consulting Unavailable MISC, DR GIRALDO Admitting Unavailable CHE, REI Consulting Unavailable FRANCO, DR RAPHAEL Byrnes Consulting Unavailable FRANCO, DR RAPHAEL Byrnes Attending Unavailable REQUEST, NONE LISTED Primary Care Unavaila ble FRANCO, DR RAPHAEL Byrnes Admitting Unavailable RANDELL, MERRY Consulting Unavailable RANDELL, MERRY Attending Unavailable RANDELL, MERRY Admitting Unavailable REQUEST, NONE LISTED Primary Care Unavaila ble MCKENZIE, JESSIKA Attending Unavailable NEFCY, TORIN Consulting Unavailable MCKENZIE, JESSIKA Admitting Unavailable REQUEST, NONE LISTED Primary Care Unavaila ble SCHNECHAS, DENISE Consulting Unavailable MCKENZIE, JESSIKA Consulting Unavailable FRANCO, DR RAPHAEL Byrnes Admitting Unavailable FRANCO, DR RAPHAEL Byrnes Attending Unavailable REQUEST, NONE LISTED Primary Care Unavaila ble WEST, DR CHRIS Poole Consulting Unavailable FRANCO, DR RAPHAEL Byrnes Consulting Unavailable FRANCO, DR RAPHAEL Byrnes Admitting Unavailable FRANCO, DR RAPHAEL Byrnes Consulting Unavailable FRANCO, DR RAPHAEL Byrnes Attending Unavailable REQUEST, NONE LISTED Primary Care Unavaila ble FRANCO, DR RAPHAEL Byrnes Admitting Unavailable FRANCO, DR RAPHAEL Byrnes Consulting Unavailable FRANCO, DR RAPHAEL Byrnes Attending Unavailable REQUEST, NONE LISTED Primary Care Unavaila ble Andry OWUSU, Otoniel Unavailable [phone] Judi Howell Unavailable JESSIKA RINCON Primary Care Physician EVETTE WALDEN Attending Unavailable ANDRY, OTONIEL Referring Unavailable DEIDRE PASTRANA Referring Unavailable JOSE RAFAEL FERNANDES Attending Unavailable Gasper Fong DO Unavailable Brianda Lewis Unavailable Luis Felipe SPIVEY, Mila Gao Unavailable Raphael Jolley PA-C Unavailable [phone] Michael Britton MD Unavailable Otoniel Adhikari MD Unavailable [phone] Otoniel Adhikari MD Unavailable Milton Madison Primary Care Provider Milton Madison DO Primary Care Provider Unavailable Primary Care Provider Unavailabl e Raghav Mejias DOer Unavailable Ajit DO, Gasper Wellsw Unavailable Unav ailable Lamberton , Gasper Wellsw Unavailable Moreno ARIZMENDI.Shyla BROWN Unavailable NO FAMILY, PHYSICIAN Primary Care Provider Unava ilable Coco OWUSU, Imnancy Attending Provider [phone] Donald RAZON-[employer]ERIFF'S OFFICER-CAneta Attending Provider Merry Mejias DO Unavailable MERRY MEJIAS Attending Unavailable CINTHIA CLAYTON Attending Unavailable KRYSTINA GARCIA Attending Unavailable JESSIKA RINCON Attending Unavailable JESSIKA RINCON Attending Unavailable Tri Savage Attending Unavaila ble ALFREDO MORE Attending Unavailable ABHYANKAR, MICHAEL Referring Unavailable ABHYANKAR, MICHAEL Attending Unavailable ABHYANKAR, MICHAEL Attending Unavailable ABHYANKAR, MICHAEL Referring Unavailable FRANCO, RAPHAEL M Referring Unavailable ABHYANKAR, MICHAEL Referring Unavailable FRANCO, RAPHAEL M Referring Unavailable ABHYANKAR, MICHAEL Referring Unavailable ABHYANKAR, MICHAEL Attending Unavailable FRANCO, RAPHAEL M Referring Unavailable FRANCO, RAPHAEL M Referring Unavailable ALIS FONSECA Attending Unavailable ABHYANKAR, MICHAEL Referring Unavailable FRANCO, RAPHAEL M Attending Unavailable FRANCO, RAPHAEL M Referring Unavailable FRANCO, RAPHAEL M Referring Unavailable SHYLA MAYER Attending Unavailable ABHYANKAR, MICHAEL Referring Unavailable FRANCO, RAPHAEL M Referring Unavailable ARGENIS, ALFREDO Referring Unavailable ABHYANKAR, MICHAEL Attending Unavailable ABHYANKAR, MICHAEL Referring Unavailable ABHYANKAR, MICHAEL Attending Unavailable ABHYANKAR, MICHAEL Referring Unavailable FRANCO, RAPHAEL M Referring Unavailable MORENO, SHYLA Referring Unavailable FRANCO, RAPHAEL M Referring Unavailable ABHYANKAR, MICHAEL Referring Unavailable FRANCO, RAPHAEL M Attending Unavailable FRANCO, RAPHAEL M Referring Unavailable FRANCO, RAPHAEL M Referring Unavailable MORENO, SHYLA Referring Unavailable FRANCO, RAPHAEL M Referring Unavailable ABHYANKAR, MICHAEL Referring Unavailable ABHYANKAR, MICHAEL Attending Unavailable FRANCO, RAPHAEL M Referring Unavailable ARGENIS, ALFREDO Referring Unavailable ARGENIS, ALFREDO Admitting Unavailable ARGENIS, ALFREDO Referring Unavailable ARGENIS, ALFREDO Attending Unavailable ABHYANKAR, MCIHAEL Referring Unavailable ARGENIS, ALFREDO Attending Unavailable ARGENIS, ALFREDO Admitting Unavailable ARGENIS, ALFREDO Referring Unavailable ARGENIS, ALFREDO Admitting Unavailable ARGENIS, ALFREDO Referring Unavailable ARGENIS, ALFREDO Attending Unavailable FRANCO, RAPHAEL M Referring Unavailable JESSIKA CARTER Attending Unavailable ABHYANKAR, MICHAEL Referring Unavailable FRANCO, RAPHAEL M Referring Unavailable MORENO, SHYLA Attending Unavailable ABHYANKAR, MICHAEL Referring Unavailable MORENO, SHYLA Attending Unavailable ABHYANKAR, MICHAEL Referring Unavailable ABHYANKAR, MICHAEL Attending Unavailable ABHYANKAR, MICHAEL Referring Unavailable Allergies Allergy ClassificationReported Allergen(s)Allergy TypeDate of OnsetReaction(s) FacilityPenicillins (antibiotic) (2 sources)PenicillinsDrug Nuqelpp85-26-0288NgcvfdnKgngoepyn Clinic (14 sources)Penicillins; Translations: [penicillins]Drug Zrnsrvl61-51-5843 Unknown, Unknown (qualifier value)[facility] (11 sources)Penicillin VDrug Gxkbhqu50-31-5682Fcbriik, Unknown ReactionZanesville City Hospital (20 sources)PenicillinsDrug Tdwdmjm58-51-3404YxwuxkqXgjiwahrm Clinic (1 source)PenicillinsDrug allergy (disorder)58-79-9842LrspuleupZanesville City Hospital Repository (1 source)PenicillinsDrug allergy (disorder)78-56-7871KrlMet[facility] (10 sources)Penicillins; Translations: [penicillins]Drug Elcizit63-36-2190 Unknown, Unknown (qualifier value)[facility] (20 sources)PenicillinsDrug Gzpacfe21-18-7977DbkpmqiThsnmiotk Clinic Medications Current Medications MedicationDrug Class(es)DatesSig (Normalized)Sig (Original)8 hr acetaminophen 650 mg extended release oral tablet (20 sources)Start: 85-81-1518qsur 1 tablet by mouth onceAcetaminophen 650 mg Tablet Extended Release Active 650 MG PO Once June 06, 2017 12:00am Complies with drug therapyStart: 47-08-9446eixj 500 mg by mouth every four hours as needed for painTylenol 500 mg, Oral, q4hr, PRN as needed for pain Start Date: 02/07/17 Status: Ordered Repeat number: 1acetaminophen (Tylenol) 325 MG tablet every 6 (six) hours ActiveACETAMINOPHEN (TYLENOL ORAL) Take by mouth. Active ACETAMINOPHEN (TYLENOL ORAL) Take by mouth. 0 ActiveComment on above:Take by mouth.aspirin 81 mg oral tablet (20 sources)Platelet Aggregation Inhibitor, Nonsteroidal Anti-inflammatory Drug Start: 79-45-8690tbal 1 mg by mouth once dailyAdult Aspirin 81 mg oral tablet, chewable mg tab(s), Chewed, Daily, Refills(s) 0 Start Date: 11/01/22 Status: Ordered Repeat number: 1take 1 tablet by mouth once dailyaspirin, enteric coated (ASPIRIN, ENTERIC COATED) 81 mg EC tablet Take 81 mg by mouth once daily. Ac tiveComment on above:Take 81 mg by mouth once daily.atorvastatin 40 mg oral tablet (20 sources)HMG-CoA Reductase InhibitorStart: 06-09-2022 End: 57-55-9215uqqb 1 tablet by mouth once dailyatorvastatin (LIPITOR) 40 mg tablet Take 40 mg by mouth once daily. 06/09/2022 ActiveComment on above:Take 40 mg by mouth once daily.benzonatate 100 mg oral capsule (20 sources)Non-narcotic AntitussiveStart: 45-81-3165apld 1 capsule by mouth three times daily as needed for coughbenzonatate (TESSALON PERLE) 100 mg capsule take 1 capsule by mouth three times a day as needed forcough 90 capsule 11/01/2024 ActiveStart: 12-18-2023 End: 72-86-8306lklz 1 capsule by mouth three times daily as needed for cough benzonatate (TESSALON PERLE) 100 mg capsule take 1 capsule by mouth three times a day as needed forcough 90 capsule 09/10/2024 ActiveStart: 09-04-2023 End: 84-76-3510nzma 1 capsule by mouth three times daily as needed for cough benzonatate (TESSALON PERLE) 100 mg capsule take 1 capsule by mouth three times a day as needed forcough 40 capsule 11/15/2023 12/15/2023 DiscontinuedStart: 03-27-2023 End: 00-63-6543aftv 1 capsule by mouth three times daily as needed for cough benzonatate (TESSALON PERLE) 100 mg capsule take 1 capsule by mouth three times a day as needed forcough 40 capsule 03/27/2023 09/03/2023 DiscontinuedStart: 11-13-2022 End: 98-16-8495wnba 1 capsule by mouth three times daily as needed for cough benzonatate (TESSALON PERLE) 100 mg capsule take 1 capsule by mouth three times a day as needed forcough 11/13/2022 02/15/2023 DiscontinuedStart: 42-30-7925ixbu 1 mg by mouth three times dailyTessalon Perles mg, Oral, TID, Refills(s) 0 Start Date: 11/01/22 Status: OrderedStart: 08-03-2022 End: 94-76-2538vpev 1 capsule by mouth every eight hours as neededbenzonatate (TESSALON PERLE) 100 mg capsule Take 1 capsule by mouth three times daily as needed forcough. 100 capsule 2 08/03/2022 11/01/2022 ExpiredStart: 12-24-2018 End: 80-83-5322rqbynmwqreg (TESSALON PERLE) 100 mg capsule 2 12/24/2018 08/03/2022 DiscontinuedStart: 72-03-9349tmnvihlbwxr (TESSALON PERLE) 100 mg capsuleComment on above:Take 1 capsule by mouth three times daily as needed for cough.take 1 capsule by mouth three times a day as needed for coughbuprenorphine 8 mg / naloxone 2 mg sublingual film (20 sources)Partial Opioid Agonist, Opioid AntagonistStart: 15-99-2181PXZFREUD 8-2 mg film Indications: Chronic bilateral low back pain without sciatica , Neck pain , Arthritis Dissolve 1 Film under the tongue twice daily for 1 day. Do not start before November 23, 2022. 0 11/23/2022 ActiveStart: 06-06-2017 Buprenorphine-Naloxone (Suboxone) 8-2 mg Film Active 1 FILM BUCCAL Q24H June 06, 2017 12:00am Complies with drug therapyStart: 12-29-2016 End: 59-70-5706JDENHNTL 8-2 mg film 0 12/29/2016 11/16/2022 DiscontinuedStart: 73-50-2293Ffugmhld 8 mg-2 mg sublingual film 1.5 strips, SubLingual, Daily, Refill(s) 0, Pain Start Date: 03/30/15 Status: Ordered Repeat number: 1take 1 tablet under the tongue once dailySuboxone 8-2 MG 1 tablet under the tongue and allow to dissolve Sublingual Once a day ActiveComment on above:Dissolve 1 Film under the tongue twice daily for 1 day. Do not start before November 23, 2022. Dissolve under the tongue once daily.ciprofloxacin 500 mg oral tablet (8 sources)Quinolone AntimicrobialStart: 03-29-2024 End: 18-00-5973iael 1 tablet by mouth twice dailyciprofloxacin HCl (CIPRO) 500 mg tablet Take 1 tablet by mouth two times a day for 7 days. 14 tablet 03/29/2024 04/05/2024 ActiveStart: 02-21-2024 End: 45-36-3869kcgc 1 tablet by mouth twice dailyciprofloxacin HCl (CIPRO) 500 mg tablet Take 1 tablet by mouth two times a day for 7 days. 14 tablet 02/21/2024 02/28/2024 DiscontinuedStart: 01-25-2023 End: 24-95-4855zvfy 1 tablet by mouth twice dailyciprofloxacin HCl (CIPRO) 500 mg tablet Take 1 tablet by mouth two times a day for 7 days. 14 tablet 0 01/25/2023 02/01/2023 ActiveStart: 08-27-2021 End: 62-23-1630ehfe 1 tablet by mouth twice dailyciprofloxacin HCl (CIPRO) 500 mg tablet Take 1 tablet by mouth twice daily for 7 days. 14 tablet 0 08/27/2021 09/03/2021 ActiveComment on above:Take 1 tablet by mouth twice daily for 7 days. Take 1 tablet by mouth two times a day for 7 days.dextrose 5 % solution 50 mL with pembrolizumab 100 MG/4ML solution (9 sources)dextrose 5 % solution 50 mL with pembrolizumab 100 MG/4ML solution Infuse into a venous catheter 1 (one) time Activedicyclomine hydrochloride 10 mg oral capsule (1 source)AnticholinergicStart: 10-23-2024 End: 46-81-8597yibf 1 capsule by mouth four times dailyBentyl 10 mg Cap 10 mg = 1 cap(s), Oral, QID, X 14 day(s), # 56 cap(s), Refills(s) 3, Pharmacy: [facility]/ pharmacy #[id number], 149.8, cm, 10/23/24 10:20:00 EDT, Height/Length Dosing, 39.9, kg, 10/23/24 10:20:00EDT, Weight Dosing Start Date: 10/23/24 Stop Date: 12/18/24 Status: Ordered Quantity: 56.0 Unit: cap(s) Repeat number: 4famotidine 20 mg oral tablet (20 sources)Histamine-2 Receptor AntagonistStart: 12-24-6317rpif 1 tablet by mouth once dailyfamotidine (PEPCID) 20 mg tablet TAKE 1 TABLET BY MOUTH EVERY DAY 90 tablet 11/21/2024 ActiveStart: 02-19-2024 End: 15-46-5162vrmh 1 tablet by mouth once dailyfamotidine (PEPCID) 20 mg tablet Take 1 tablet by mouth once daily. 90 tablet 08/16/2024 5Active fexofenadine (20 sources)Histamine-1 Receptor AntagonistStart: 61-93-0945vhmuzqmacsnc Oral, Refills(s) 0 Start Date: 09/21/21 Status: Ordered Repeat number: 1Start: 11-19-9347kwnbapuowjva Oral, Refills(s) 0 Start Date: 09/21/21 Status: Ordered Start: 12-27-2019 End: 07-26-2269jgdf 1 tablet by mouth twice dailyfexofenadine (LEONARD) 60 mg tablet Take 60 mg by mouth twice daily. 12/27/2019 06/29/2022 Discontinued (Discontinued by Patient)Leonard ActiveComment on above:Take 60 mg by mouth twice daily.folic acid 1 mg oral tablet (20 sources)Start: 04-17-3098rtrtc acid Daily, Refills(s) 0 Start Date: 09/21/21 Status: Ordered Repeat number: 1Start: 59-93-6815zjmip acid Daily, Refills(s) 0 Start Date: 09/21/21 Status: OrderedStart: 02-11-2021 End: 31-28-2037rxum 1 tablet by mouth once dailyfolic acid 1 mg tablet take 1 tablet by mouth every day 90 tablet 3 12/19/2023 ActiveComment on above:Take 1 tablet by mouth once daily.TAKE 1 TABLET BY MOUTH EVERY DAYfurosemide 20 mg oral tablet (20 sources)Loop DiureticStart: 56-33-5859scqs 1 tablet by mouth once daily furosemide (LASIX) 20 mg tablet Take 1 tablet by mouth once daily. 90 tablet 1 08/19/2024 ActiveStart: 10-03-2023 End: 84-15-5817dhkp 1 tablet by mouth in the morningfurosemide (Lasix) 20 MG tablet Take 20 mg by mouth in the morning. 02/02/2024 ActiveIbgard 90 mg oral delayed release capsule (2 sources)Start: 80-42-2984tdjk 2 capsules by mouth twice dailyIbgard 90 mg oral delayed release capsule 180 mg = 2 cap(s), Oral, BID, # 12 cap(s), Refills(s) 0, samples given to patient (Rx) Start Date: 10/23/24 Status: Ordered Quantity: 12.0 Unit: cap(s) Repeatnumber: 1Start: 68-05-4205sgwr 2 capsules by mouth twice dailyIbgard 90 mg oral delayed release capsule 180 mg = 2 cap(s), Oral, BID, # 48 cap(s), Refills(s) 3, Pharmacy: [facility]/pharmacy #[id number], 149.8, cm, 10/23/24 10:20:00 EDT, Height/Length Dosing, 39.9, kg, 10/23/24 10:20:00 EDT, Weight Dosing Start Date: 10/23/24 Status: Ordered Quantity: 48.0 Unit: cap(s) Repeat number: 4iv contrast (will be provided with radiology test) (20 sources)Start: 02-15-2024 End: 40-92-6937wpoiiu 1 dose intravenously onceiv contrast (will be provided with radiology test) 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 If Pt. 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 If Pt.has a central line or IVAD, may access for administration according to line specific nursing protocol.Once exam is complete flush line and de-access according to line specific nursing protocol in theMR contrast administration guidelines link 1 Each 02/15/2024 02/16/2024 ActiveStart: 12-27-2023 End: 99-72-5063pnbwit 1 dose intravenously onceiv contrast (will be provided with radiology test) [...] administration guidelines link 1 Each 12/27/2023 12/28/2023 ExpiredStart: 12-27-2023 End: 89-84-8454ytcevf 1 dose intravenously onceiv contrast (will be provided with radiology test) [...] administration guidelines link 1 Each 12/27/2023 12/28/2023 ActiveStart: 08-22-2023 End: 06-36-3509lf contrast (will be provided with radiology test) Indications: Malignant neoplasm of hilus of lung, unspecified laterality (HCC) CT Chest W - Inject, intravenously, once for 1 dose.No IV access, insert saline lock prior to the beginning of sedation, infusion, injection of imaging exam. Discontinue s des lock post exam. If Pt. has a central line or IVAD, may access for administration according toline specific nursing protocol. Once exam is complete flush line and de-access according to line specific nursing protocol in the CT contrast administration guidelines link. 1 Each 0 08/22/2023 08/23/2023 Active Start: 10-13-2022 End: 31-43-6651da contrast (will be provided with radiology test) Indications: Malignant neoplasm of unspecified part of unspecified bronchus or lung (HCC) , Pre-op testing , SOB (shortness of breath) CT Chest W -Inject, intravenously, once for 1 dose.No IV access, insert saline lock prior to the beginning of rupert tion, infusion, injection of imaging exam. Discontinue saline lock post exam. If Pt. has a central line or IVAD, may access for administration according to line specific nursing protocol. Once exam is complete flush line and de-access according to line specific nursing protocol in the CT contrast administration guidelines link. 1 Each 10/13/2022 11/16/2022 DiscontinuedStart: 41-67-2059oe contrast (will be provided with radiology test) Indications: Malignant [...] administration guidelines link. 1 Each 0 10/13/2022 ActiveStart: 04-07-2022 End: 72-15-7408yl contrast (will be provided with radiology test) Indications: Malignant neoplasm of unspecified part of unspecified bronchus or lung (HCC) CT Chest W -Inject, intravenously, once for 1 dose.No IV access, insert saline lock prior to the beginning of sedation, infusion, injection of imaging exam. Di scontinue saline lock post exam. If Pt. has a central line or IVAD, may access for administration according to line specific nursing protocol. Once exam is complete flush line and de-access accordingto line specific nursing protocol in the CT contrast administration guidelines link. 1 Each 0 04/07/2022 04/08/2022 ActiveStart: 09-29-2021 End: 94-10-0334rw contrast (will be provided with radiology test) CT ABD/PEL - Inject, intravenously, once for 1 dose.No IV access, insert saline lock prior to the beginning of sedation, infusion, injection of imaging exam. Discontinue saline lock post exam. If Pt. has a central line or IVAD, may access for adminis tration according to line specific nursing protocol. Once exam is complete flush line and de-accessaccording to line specific nursing protocol in the CT contrast administration guidelines link. 1 Each 09/29/2021 06/29/2022 Discontinued (Discontinued by Patient)Start: 09-29-2021 End: 53-50-9424ye contrast (will be provided with radiology test) CT Chest W - Inject, intravenously, once for 1 dose.No IV access, insert saline lock prior to the beginning of sedation, infusion, injection of imaging exam. Discontinue saline lock post exam. If Pt. has a central line or IVAD, may access for adminis tration according to line specific nursing protocol. Once exam is complete flush line and de-accessaccording to line specific nursing protocol in the CT contrast administration guidelines link. 1 Each 09/29/2021 06/29/2022 Discontinued (Discontinued by Patient)Start: 03-53-8261ob contrast (will be provided with radiology test) CT ABD/PEL -Inject, intravenously, once for 1 dos e.No IV access, insert saline lock prior to the beginning of sedation, infusion, injection of imaging exam. Discontinue saline lock post exam. If Pt. has a central line or IVAD, may access for administration according to line specific nursing protocol. Once exam is complete flush line and de-accessaccording to line specific nursing protocol in the CT contrast administration guidelines link. 1 Each 0 09/29/2021 ActiveStart: 48-78-9065qq contrast (will be provided with radiology test) [...] administration guidelines link. 1 Each 0 09/29/2021 ActiveStart: 09-14-2021 End: 87-91-5700rv contrast (will be provided with radiology test) CT Chest W - Inject, intravenously, once for 1 dose.No IV access, insert saline lock prior to the beginning of sedation, infusion, injection of imaging exam. Discontinue saline lock post exam. If Pt. has a central line or IVAD, may access for adminis tration according to line specific nursing protocol. Once exam is complete flush line and de-accessaccording to line specific nursing protocol in the CT contrast administration guidelines link. 1 Each 0 09/14/2021 09/15/2021 Active Start: 09-14-2021 End: 25-34-5012wmlpwp 1 dose intravenously onceiv contrast (will be provided with radiology test) [...] guidelines link 1 Each 0 09/14/2021 09/15/2021 ActiveComment on above:CT Chest W -Inject, intravenously, once for 1 dose.No IV access, insert saline lock prior to the beg inning of sedation, infusion, injection of imaging exam. Discontinue saline lock post exam. If Pt. has a central line or IVAD, may access for administration according to line specific nursing protocol. Once exam is complete flush line and de-access according to line specific nursing protocol in theCT contrast administration guidelines link.MRI Brain Inject, intravenously, once for 1 dose.No IV access, insert saline lock prior to beginning of sedation, infusion, injection of imaging exam.Discontinue saline lock post exam. If Pt. 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 TAKE 1 TABLETBY MOUTH EVERY DAY 90 tablet 1 11/06/2024 ActiveStart: 06-20-2024 End: 68-86-6600lmbt 1 tablet by mouth once dailySYNTHROID 25 mcg tablet 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 TAKE 1 TABLET BY MOUTH EVERY DAY 90 tablet 1 07/15/2024 ActiveNature's Bounty Probiotic (6 sources)Start: 64-61-4366Moaunt's Bounty Probiotic Oral, Daily, Refill(s) 0 Start Date: 09/21/21 Status: Ordered Repeat number: 1Start: 64-04-7008Bndsgs's Bounty Probiotic Oral, Daily, Refill(s) 0 Start Date: 09/21/21 Status: Ordered nitrofurantoin, macrocrystals 25 mg / nitrofurantoin, monohydrate 75 mg oral capsule (1 source)Nitrofuran AntibacterialStart: 06-23-2023 End: 33-76-4835laad 1 capsule by mouth twice dailynitrofurantoin monohydrate and macrocrystal (MACROBID) 100 mg capsule Take 1 capsule by mouth two times a day for 7 days. 14 capsule 0 06/23/2023 06/30/2023 ActiveComment on above:Take 1 capsule by mouth two times a day for 7 days.nystatin 586412 unt/ml oral suspension (4 sources)Polyene AntifungalStart: 11-30-2023 End: 27-22-2374eknv 5 mL by mouth four times dailynystatin (MYCOSTATIN) 100,000 unit/mL suspension Take 5 mL by mouth four times daily for 7 days. SWISH AND SWALLOW DIRECTED 140 mL 11/30/2023 12/07/2023 ActiveStart: 02-22-2022 End: 77-85-9216jiuj 5 mL by mouth four times dailynystatin (MYCOSTATIN) 100,000 unit/mL suspension Take 5 mL by mouth four times daily for 14 days. Swish and swallow. 280 mL 0 02/22/2022 03/08/2022 ActiveStart: 12-02-2021 End: 65-51-7026fwon 5 mL by mouth four times dailynystatin (MYCOSTATIN) 100,000 unit/mL suspension Indications: Thrush Take 5 mL by mouth four times daily for 14 days. Swish and swallow. 280 mL 0 12/02/2021 12/16/2021 ActiveStart: 10-19-2021 End: 39-31-8881rweu 5 mL by mouth four times dailynystatin (MYCOSTATIN) 100,000 unit/mL suspension Take 5 mL by mouth four times daily for 14 days. Swish and swallow. 280 mL 0 10/19/2021 11/02/2021 ActiveComment on above:Take 5 mL by mouth four times daily for 14 days. Swish and swallow.OLANZapine 5 mg oral tablet (17 sources)Atypical AntipsychoticStart: 08-22-2023 End: 93-26-4305ljwc 1 tablet by mouth at bedtimeOLANZapine (ZyPREXA) 5 MG tablet Take 1 tablet by mouth at bedtime 08/22/2023 Activeondansetron 8 mg oral tablet (20 sources)Serotonin-3 Receptor AntagonistStart: 19-80-5011eycq 1 tablet by mouth every eight hours as needed for nauseaondansetron (ZOFRAN) 8 mg tablet Indications: Malignant neoplasm of hilus of lung, unspecified laterality (HCC) , Anemia, unspecified type Take 1 tablet by mouth every 8 hours as needed for nausea/vomiting. 90 tablet 10/11/2024 ActiveStart: 12-18-2023 End: 37-07-8346thpm 1 tablet by mouth every eight hours as neededondansetron (Zofran) 8 MG tablet Take 8 mg by mouth every 8 (eight) hours if needed 02/02/2024 ActiveStart: 05-12-2023 End: 77-13-0186rais 1 tablet by mouth every eight hours as needed for nausea ondansetron (ZOFRAN) 8 mg tablet Indications: Malignant neoplasm of hilus of lung, unspecified laterality (HCC) , Anemia, unspecified type Take 1 tablet by mouth every 8 hours as needed for nausea/vomiting. 30 tablet 3 11/15/2023 12/15/2023 DiscontinuedStart: 05-28-2018 End: 08-79-3606wimn 1 tablet by mouth every eight hours as needed for nausea ondansetron (ZOFRAN) 8 mg tablet Indications: Malignant neoplasm of hilus of lung, unspecified laterality (HCC) , Anemia, unspecified type Take 1 tablet by mouth every 8 hours as needed for Nausea/Vomiting. 30 tablet 3 05/28/2018 08/16/2021 DiscontinuedStart: 89-35-5296gseo 1 tablet by mouth three times daily as needed for nauseaZofran 8 mg Tab 8 mg = 1 tab(s), Oral, TID, PRN Nausea, # 9 tab(s), Refills(s) 0 Start Date: 03/29/18 Status: Ordered Quantity: 9.0 Unit: tab(s) Repeat number: 1Start: 59-67-1584lpxo 1 tablet by mouth once daily as needed for nausea and vomitingOndansetron (Zofran Odt) 8 mg Tablet,Disintegrating Active 8 MG PO Daily as needed for Nausea And Vomiting June 06, 2017 12:00am Complies with drug therapyZofran ActiveComment on above:Take 1 tablet by mouth every 8 hours as needed for nausea/vomiting. pantoprazole 40 mg delayed release oral tablet (20 sources)Proton Pump InhibitorStart: 06-26-2024 End: 54-58-0675dgkr 1 tablet by mouth twice dailypantoprazole DR (PROTONIX) 40 mg tablet TAKE 1 TABLET BY MOUTH TWICE A DAY 180 tablet 1 11/25/2024 Active Start: 89-99-6114balt 1 tablet by mouth twice dailypantoprazole DR (PROTONIX) 40 mg tablet Take 1 tablet by mouth two times a day. 60 tablet 1 06/05/2024 Active Start: 11-21-2019 End: 94-98-5782jufe 1 tablet by mouth twice dailyPantoprazole [address] Tab 40 mg, Oral, BID, X 6 months, # 60 tab(s), Refills(s) 5, Pharmacy: [id number], 154.9, cm, 11/21/19 12:51:00 EDT, Height/Length Dosing, 39, kg, 11/21/19 12:51:00 EDT, Weight Dosing Start Date: 11/21/19 Stop Date: 11/05/22 Status: OrderedStart: 06-06-2017 End: 65-39-5480lkty 1 tablet by mouth once dailypantoprazole (ProtoNix) 40 MG EC tablet Take 40 mg by mouth Daily 12/23/2023 Active End: 36-60-3466bmycpkahqifk sodium (PROTONIX ORAL) Take 40 mg by mouth. Patient was taking this before and stoppedin June. Will restart today, 10/24/17 09/29/2021 Discontinuedtake 1 tablet by mouth every twenty-four hoursProtonix 20 MG 1 tablet Orally Once a day ActiveComment on above:Take 40 mg by mouth. Patient was taking this before and stopped in June. Will restart today, 10/24/17 Take 1 tablet by mouth every 12 (twelve) hours.4 ml pembrolizumab 25 mg/ml injection (20 sources)Programmed Receptor-1 Blocking AntibodyStart: 11-07-2024 KEYTRUDA 25 mg/mL injection INFUSE 168 MG INTRAVENOUSLY EVERY 6 WEEKS 8 mL 11/07/2024 ActiveStart: 78-65-0624naqq 25 mg intravenously five times weekly Pembrolizumab 25 mg/mL solution Active 400 MG IV EVERY 6 WEEKS September 26, 2024 12:00am administer over 30 mins Complies with drug therapyStart: 07-24-2024 pembrolizumab (KEYTRUDA) 25 mg/mL injection Inject 168 mg intravenously every 6 weeks. 8 mL 1 07/24/2024 ActiveStart: 14-79-6251Sbcmjogy 50 mg intravenous injection Refills(s) 0 Start Date: 11/07/23 Status: Orderedpolyethylene glycol 3350 58220 mg powder for oral solution (1 source)Osmotic LaxativeStart: 11-17-2022 End: 78-34-5945pihsxpwaysiw glycol 3350 17 gram packet Take 1 Packet by mouth once daily for 7 days. For prevention of postoperative opioid induced constipation. Dissolve dose in 4 - 8 ounces of liquid and take as directed. 7 Packet 0 11/17/2022 11/24/2022 ActiveComment on above:Take 1 Packet by mouth once daily for 7 days. For prevention of postoperative opioid induced constip ation. Dissolve dose in 4 - 8 ounces of liquid and take as directed. microencapsulated potassium chloride 20 meq extended release oral tablet (20 sources)Start: 12-27-2023 End: 19-50-5306qzzi 1 tablet by mouth once dailyKLOR-CON M20 20 mEq tablet TAKE 1 TABLET BY MOUTH EVERY DAY 30 tablet 01/26/2024 ActiveStart: 10-03-2023 End: 63-42-3686uxztgqqkw chloride ER 20 mEq tab(s) (KLOR-CON)Start: 10-03-2023 End: 82-78-7135dpxb 1 tablet by mouth once dailypotassium chloride ER (KLOR-CON) 20 mEq tablet Take 1 tablet by mouth once daily. 30 tablet 0 10/03/2023 11/02/2023 ActiveStart: 01-25-2023 End: 62-08-4494arck 1 tablet by mouth once dailypotassium chloride ER (KLOR-CON) 20 mEq tablet Take 1 tablet by mouth once daily for 14 days. 7 tablet 1 01/25/2023 02/08/2023 ActiveComment on above:Take 1 tablet by mouth once daily for 14 days.predniSONE 10 mg oral tablet (5 sources)Start: 11-07-2024 End: 58-30-9738hekv 1 tablet by mouth once dailypredniSONE (DELTASONE) 10 mg tablet Take 1 tablet by mouth once daily. 90 tablet 11/07/2024 02/05/2025 Active Start: 06-20-2024 End: 48-12-2240vikv 4 tablets by mouth once dailypredniSONE (DELTASONE) 10 mg tablet Take 4 tablets by mouth once daily. Taper as directed. 120 tablet 06/20/2024 07/20/2024 Activeprochlorperazine 10 mg oral tablet (20 sources)PhenothiazineStart: 12-18-2023 End: 08-37-7997fshl 1 tablet by mouth every six hours as neededprochlorperazine (COMPAZINE) 10 mg tablet Indications: Malignant neoplasm of hilus of lung, unspecified laterality (HCC) , Anemia, unspecified type TAKE 1 TABLET BY MOUTH EVERY 6 HOURS NEEDED 100 tablet 10/03/2024 ActiveStart: 07-31-2023 End: 04-19-4036ixzu 1 tablet by mouth every six hours as neededprochlorperazine (COMPAZINE) 10 mg tablet Indications: Malignant neoplasm of hilus of lung, unspecified laterality (HCC) , Anemia, unspecified type Take 1 tablet by mouth every 6 hours as needed. 40 tablet 11/15/2023 12/15/2023 DiscontinuedStart: 41-55-3775dvxf 1 tablet by mouth once dailyCompazine 10 MG 1 TABLET Orally DAILY for 30 days May, ActiveStart: 03-29-2018 End: 79-75-9448kydp 1 tablet by mouth every six hours as neededprochlorperazine (COMPAZINE) 10 mg tablet Indications: Malignant neoplasm of hilus of lung, unspecified laterality (HCC) , Anemia, unspecified type Take 1 tablet by mouth every 6 hours as needed. 40 tablet 05/12/2023 06/20/2023 DiscontinuedStart: 43-31-2665ytdd 1 tablet by mouth every four hours as needed for nausea and vomitingProchlorperazine Maleate (Compazine) 10 mg Tablet Active 10 MG PO Q4H as needed for Nausea And Vomiting June 06, 2017 12:00am Complies with drug therapyProchlorperazine ActiveComment on above:TAKE 1 TABLET BY MOUTH EVERY 6 HOURS NEEDED.TAKE 1 TABLET BY MOUTH EVERY 6 HOURS NEEDEDrimegepant 75 mg disintegrating oral tablet (20 sources)Start: 17-45-3716Ewuuwfctag Sulfate (Nurtec) 75 MG tablet dispersible Indications: Episodic migraine Take one 75 mg tablet by mouth every other day for migraine prevention. Allow tablet to dissolve entirely. 16 tablet 11 03/14/2024 ActiveStart: 05-04-2022 End: 39-27-3441CSYEYG ODT 75 mg disintegrating tablet DISSOLVE 1 TABLET ON THE TONGUE ONCE A DAY AT ONSET OF MIGRAINE 06/15/2022 ActiveComment on above: DISSOLVE 1 TABLET ON THE TONGUE ONCE A DAY AT ONSET OF MIGRAINEsucralfate 1000 mg oral tablet (20 sources)Aluminum ComplexStart: 20-10-1747nobn 1 tablet by mouth four times dailysucralfate (CARAFATE) 1 gram tablet TAKE 1 TABLET BY MOUTH FOUR TIMES A DAY 360 tablet 1 06/17/2024tiveStart: 13-52-8036rxva 1 tablet by mouth every six hoursSucralfate 1 GM 1 tablet on an empty stomach Orally QID for 30 day(s) Sep, ActiveStart: 68-25-0680qrlu 1 tablet by mouth four times daily Sucralfate 1 GM 1 tablet on an empty stomach Orally QID for 30 day(s) Sep, ActiveStart: 09-24-2021 End: 89-14-3767rhto 1 tablet by mouth four times dailysucralfate (CARAFATE) 1 gram tablet take 1 tablet by mouth four times a day 360 tablet 1 12/18/2023 ActiveStart: 06-31-6624wwbf 10 mL by mouth four times dailySucralfate 1 GM/10ML 10 ml on an empty stomach Orally four times a day for 30 day(s) Sep, Ac tiveComment on above:TAKE 1 TABLET ON AN EMPTY STOMACH 4 TIMES A DAY FOR 30 DAYS Take 1 tablet by mouth four times daily.TAKE 1 TABLET BY MOUTH 4 TIMES A DAYtake 1 tablet by mouth four times a day Completed/Discontinued Medications MedicationDrug Class(es)DatesSig (Normalized)Sig (Original)[id number] 200 actuat albuterol 0.09 mg/actuat metered dose inhaler (20 sources)beta2-Adrenergic AgonistStart: 06-06-2017 End: 92-38-2655bpaf 1 puff(s) by inhalation every four to six hours as needed for wheezingAlbuterol Sulfate (Proair Hfa) 90 mcg/actuation Hfa Aerosol Inhaler Discontinued 1 PUFF INHALATION EVERY 4-6 HOURS as needed for Shortness Of Breath Or Wheezing June 06, 2017 12:00am September 26, 2024 9:01amStart: 02-08-2017 take 2 puff(s) by inhalation every six hoursPro-Air HFA CFC free 90 mcg/inh MDI 2 puff(s), Inhalation, q6hr Congestion, Refill(s) 0 Start Date:02/08/17 Status: OrderedStart: 11-26-2016 End: 75-42-9227omcq 1 puff(s) by mouth four times daily as neededPROAIR HFA 90 mcg/actuation inhaler INHALE 1 PUFF BY MOUTH 4 TIMES A DAY NEEDED 4 11/26/2016 08/17/2022 DiscontinuedComment on above:INHALE 1 PUFF BY MOUTH 4 TIMES A DAY NEEDEDALPRAZolam 0.5 mg oral tablet (2 sources)BenzodiazepineStart: 02-19-2024 End: 62-95-0269RNHQUEhtob 0.5 mg tab(s) (XANAX)Start: 02-19-2024 End: 90-63-7276ubfq 0.5 mg by mouth once0.5 mg, ORAL, ONCE, 1 dose, On Mon02/19/24 at 1200bacitracin 0.5 unt/mg / polymyxin b 10 unt/mg topical ointment (2 sources)Polymyxin-class AntibacterialStart: 02-19-2024 End: 39-13-1282iyfcqfpatd 500 units - polymyxin B 10,000 units topical ointment (POLYSPORIN)Start: 02-19-2024 End: Packet, TOPICAL, ONCE, 1 dose, On Mon02/19/24 at 0900, RN to apply to all 4 pin sites post frame removal. FOR EXTERNAL USE ONLY cyanocobalamin, vitamin B-12, (VITAMIN B-12 ORAL) (20 sources) End: 70-02-0392krdtzxujssomqm, vitamin B-12, (VITAMIN B-12 ORAL) Take by mouth. 06/29/2022 Discontinued (Discontinued by Patient)cyanocobalamin, vitamin B-12, (VITAMIN B-12 ORAL) Take by mouth. 0 ActiveComment on above:Take by mouth. dexamethasone 2 mg oral tablet (20 sources)CorticosteroidStart: 02-20-2024 End: 27-40-2158mhfOVVZJsqaxt (DECADRON) 2 mg tablet Start the day after your Gamma Knife Procedure: Decadron (dexamethasone) Take 4 mg (2 tablets) daily for 3 days. Take 2 mg (1 tablet) daily for 3 days then Stop Decadron Patient should start on February 20, 2024. 9 tablet 02/20/2024 06/20/2024 DiscontinuedStart: 01-31-2024 End: 56-72-6106iwrq 1 tablet by mouth twice daily at mealtimedexAMETHasone (DECADRON) 4 mg tablet Take 1 tablet by mouth two times a day with meals. 60 tablet 01/31/2024 02/28/2024 Discontinuedestrogens, conjugated (long term) 0.625 mg/ml vaginal cream (20 sources)EstrogenStart: 09-21-2021 End: 02-81-9293ywphrmewvy estrogens (PREMARIN) vaginal cream See Instructions, 30 gm, Refill(s) 5, 1 gm vaginally + apply pea-sized amount around urethra. daily x 3 weeks, then 3x per week thereafter., [id number], 155, cm, 09/21/21 10:48:00 EDT, Height/Length Dosing, 37, kg, 09/21/21 10:48:00 EDT, Weigh... 09/21/2021 08/17/2022 DiscontinuedStart: 97-89-3857ciuylobvsp estrogens 0.625 mg/g vaginal cream with applicator See Instructions, 30 gm, Refill(s) 5,1 gm vaginally + apply pea-sized amount around urethra. daily x 3 weeks, then 3x per week thereafter., [id number], 155, cm, 09/21/21 10:48:00 EDT, Height/Length Dosing, 37, kg, 09/21/21 10:48:00 EDT, Weigh... Start Date: 09/21/21 Status: OrderedPremarin ActiveComment on above: See Instructions, 30 gm, Refill(s) 5, 1 gm vaginally + apply pea-sized amount around urethra. dailyx 3 weeks, then 3x per week thereafter., [facility]/pharmacy #[id number], 155, cm, 09/21/21 10:48:00 EDT, Height/Length Dosing, 37, kg, 09/21/21 10:48:00 EDT, Weigh...ibuprofen 600 mg oral tablet (2 sources)Nonsteroidal Anti-inflammatory DrugStart: 35-35-5810dfhq 1 tablet by mouth every six hours as needed for painibuprofen (MOTRIN) 600 mg tablet Indications: Pain, postoperative, acute , Malignant neoplasm of lower lobe of right lung (HCC) Take 1 tablet by mouth every 6 hours as needed for pain. 60 tablet 0 11/16/2022 ActiveComment on above:Take 1 tablet by mouth every 6 hours as needed for pain.Lidocaine (2 sources)Antiarrhythmic, Amide Local AnestheticStart: 02-19-2024 End: 19-78-1758ypexefyue 20 mg/mL (2 %) 200-400 mg injection (XYLOCAINE)Start: 02-19-2024 End: 28-16-4472613-400 mg, INTRADERMAL, ONCE, 1 dose, On Mon02/19/24 at 0900 methocarbamol 500 mg oral tablet (10 sources)Muscle RelaxantStart: 11-16-2022 End: 72-36-7442ytrl 1 tablet by mouth three times dailymethocarbamol (ROBAXIN) 500 mg tablet Take 1 tablet by mouth three times daily. 24 tablet 11/16/2022 01/25/2023 DiscontinuedComment on above:Take 1 tablet by mouth three times daily.5 ml midazolam 1 mg/ml injection (2 sources)BenzodiazepineStart: 02-19-2024 End: 96-39-2883zhibjerdr (PF) 0.5-1 mg injection (VERSED)Start: 02-19-2024 End: .5-1 mg, INTRAVENOUS, ONCE, 1 dose, On Mon02/19/24 at 0900 mupirocin 0.02 mg/mg topical ointment (3 sources)RNA Synthetase Inhibitor AntibacterialStart: 15-28-7595ruenagnyz (BACTROBAN) 2 % ointment Apply a small amount in each nostril using a cotton swab twice the day before surgery and once the morning of surgery. 22 g 0 11/11/2022 ActiveComment on above:Apply a small amount in each nostril using a cotton swab twice the day before surgery and once the morning of surgery.24 hr nicotine 0.292 mg/hr transdermal system (9 sources)Cholinergic Nicotinic AgonistStart: 09-29-2021 End: 26-40-4209hasyqiic (NICODERM) 7 mg/24 hr Apply 1 Patch as directed every 24 hours. 30 Patch 0 09/29/2021 04/07/2022 DiscontinuedComment on above:Apply 1 Patch as directed every 24 hours.oxyCODONE hydrochloride 5 mg oral tablet (1 source)Opioid AgonistStart: 11-16-2022 End: 94-46-6216yntz 1 tablet by mouth every six hours as neededoxyCODONE IR (ROXICODONE) 5 mg immediate release tablet Indications: Pain, postoperative, acute , Malignant neoplasm of lower lobe of right lung (HCC) Take 1 to 2 tablets by mouth every 6 hours as needed for up to 7 days. 56 tablet 0 11/16/2022 11/23/2022 ExpiredComment on above:Take 1 to 2 tablets by mouth every 6 hours as needed for up to 7 days.pembrolizumab 159.6 mg in NaCl 0.9% 64.384 mL (KEYTRBOOK A TIGER) (1 source)Start: 11-07-2024 End: 67-50-5655986.6 mg (4 mg/kg/dose 39.9 kg Treatment plan Recorded weight), INTRAVENOUS, Administer over 30 Minutes, ONCE, 1 dose, On Jonelle 11/07/24 at 1500, EXP 1430 11/08/24 RF Administer with 0.2 micron filter.pembrolizumab 400 mg in NaCl 0.9% 74 mL (KEYTRBOOK A TIGER) (9 sources)Start: 09-05-2024 End: mg, INTRAVENOUS, Administer over 30 Minutes, ONCE, 1 dose, On Jonelle 09/05/24 at 1000, EXP: 09/09/2024 0940 Refrigerated Administer with 0.2 micron filter.Start: 05-02-2024 End: mg, INTRAVENOUS, Administer over 30 Minutes, ONCE, 1 dose, On Jonelle /20/25 at 1330, EXP: 05/06/2024 1330 RT Administer with 0.2 micron filter. Start: 03-21-2024 End: 45-01-9292920 mg, INTRAVENOUS, Administer over 30 Minutes, ONCE, 1 dose, On Mon03/21/24 at 1400, EXP: 03/25/2024 1345 RT Administer with 0.2 micron filter. Start: 02-07-2024 End: 92-61-1426798 mg, INTRAVENOUS, Administer over 30 Minutes, ONCE, 1 dose, On Mon02/07/24 at 1330, EXP: 02/11/2024 1330 RT Administer with 0.2 micron filter.Start: 12-27-2023 End: 58-18-2231970 mg, INTRAVENOUS, Administer over 30 Minutes, ONCE, 1 dose, On Mon12/27/23 at 1400, EXP: 12/31/2023 1405 RT Administer with 0.2 micron filter.Start: 11-15-2023 End: 73-30-5632641 mg, INTRAVENOUS, Administer over 30 Minutes, ONCE, 1 dose, On Mon11/15/23 at 1430, EXP: 11/19/2023 1430 RT Administer with 0.2 micron filter. Start: 10-03-2023 End: 60-00-8094kzlmjragxqzfs 400 mg in NaCl 0.9% 74 mL (KEYTRUDA)Start: 08-22-2023 End: 68-23-8885yduquccmeajhk 400 mg in NaCl 0.9% 74 mL (KEYTRUDA)Start: 07-11-2023 End: 53-25-2437hcvdkdsdpmjnm 400 mg in NaCl 0.9% 74 mL (KEYTRUDA)zolpidem tartrate 5 mg oral tablet (3 sources)gamma-Aminobutyric Acid-ergic AgonistStart: 06-06-2017 End: 08-50-4452pqgq 1 tablet by mouth at bedtime as neededZolpidem 5 mg Tablet Discontinued 5 MG PO Bedtime as needed for Insomnia June 06, 2017 12:00am Ju lorenza 2024 9:03am Problems Active Problems Problem ClassificationProblemDateDocumented DateEpisodic/ChronicAcute cerebrovascular disease (10 sources)Cerebrovascular accident; Translations: [Other cerebral infarction due to occlusion or stenosis of small artery]Onset: 86-38-9278YsrxcesXjmsep (20 sources)Asthma; Translations: [Unspecified asthma, uncomplicated]Onset: 768181-71-5963CheiuikBxxtnw of brain and nervous system (8 sources)Malignant neoplasm of frontal lobe; Translations: [Malignant neoplasm of frontal lobe]Onset: 553216-88-1070DgkffqaLbrvby of bronchus; lung (20 sources)Malignant tumor of lung; Translations: [Malignant neoplasm of unspecified main bronchus]Onset: 03-10-2017 Resolved: 43-52-1904YbzlksiJjgxqw; other respiratory and intrathoracic (1 source)Malignant neoplasm of lower respiratory -94-2231CjdkprhVftthpe obstructive pulmonary disease and bronchiectasis (20 sources)Centriacinar emphysema; Translations: [Centrilobular emphysema] Onset: 11-15-2022 Resolved: 588236-32-6592YqiompjLgegyfchhfs and hemorrhagic disorders (20 sources)Platelet count below reference range; Translations: [Thrombocytopenia, unspecified]Onset: 05-08-2017 Resolved: 423364-35-5760WthikheInevbbtqsbvvt of surgical procedures or medical care (20 sources)Anemia due to antineoplastic chemotherapy; 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]Onset: 05-23-2017 Resolved: 788506-39-4151BayjadgEmevqmvwmr disorders (11 sources)Gastroesophageal reflux disease; Translations: [Gastro-esophageal reflux disease without esophagitis]Onset: 04-13-2021 Resolved: 21-89-4967MzfnsjgKkbcyuiqth disorders (1 source)Esophageal disorders; Translations: [Gastro-esophageal reflux disease with esophagitis, without bleeding]Onset: 98-95-8849Hlaluzmwa and duodenitis (11 sources)Chronic superficial gastritis; Translations: [Chronic superficial gastritis without bleeding]Onset: 04-13-2021 Resolved: 06-18-2141YvhzguaVmptdftxrfhoni ulcer (except hemorrhage) (20 sources)Peptic ulcer; Translations: [Peptic ulcer, site unspecified, unspecified as acute or chronic, without hemorrhage or perforation]Onset: 11-06-2017 Resolved: 008056-86-5419WurqtocUnxbrgysztwczx ulcer (except hemorrhage) (4 sources)H/O: gastric ulcer; Translations: [Personal history of peptic ulcer disease]89-32-9050SscjvaayPcpksjvvnszhh symptoms and ill-defined conditions (20 sources)Dysuria; Translations: [Dysuria]Onset: 03-02-2022 Resolved: 54-40-8789KikiadiqBnoamhes; including migraine (4 sources)Migraine, unspecified, not intractable, without status migrainosus; Translations: [Migraine, unspecified, without mention of intractable migraine without mention of status migrainosus]Onset: 228783-90-6373Ymdxqba Headache; including migraine (1 source)Headache; Translations: [Nonintractable headache, unspecified chronicity pattern, unspecified headache type]96-71-5163GupwwuvuGxkezpmjmri chemotherapy; radiotherapy (5 sources)Patient encounter status; Translations: [Encounter for antineoplastic chemotherapy]Onset: 09-05-2024 Resolved: 731127-17-2334DyhorusTyjvowtqe neoplasm without specification of site (1 source)Malignant (primary) neoplasm, unspecified; Translations: [Malignant neoplasm (HCC)]Onset: 25-89-5149OcomrudMqxcywd (2 sources)Candidiasis of mouth; Translations: [Candidal stomatitis]Episodic Nausea and vomiting (20 sources)Nausea; Translations: [Nausea]Onset: 02-12-2018 Resolved: 183354-97-3153RxffgycoPzrpifgfg of unspecified nature or uncertain behavior (2 sources)Neoplasm of lung ; Translations: [Neoplasm of unspecified behavior of respiratory system]76-46-3082DhfuduuwRnqlrvuefnallv (20 sources)Arthritis; Translations: [Unspecified osteoarthritis, unspecified site]Onset: 009883-17-3762DlxrejrRuglu aftercare (2 sources)Patient encounter status; Translations: [Encounter for therapeutic drug level monitoring]25-07-6054IozhlcadGvbjs circulatory disease (1 source)Vascular insufficiency; Translations: [Other disorder of circulatory system]68-18-4102XzydvfjiKdzev gastrointestinal disorders (2 sources)Diarrhea; Translations: [Diarrhea, unspecified]56-70-1180Jpdtdiln Other injuries and conditions due to external causes (3 sources)Injury of head; Translations: [Unspecified injury of head, initial encounter]58-88-6292WfhieeubKrygioi on above:Problem List clean-up per request of Phys. EHR CmteOther liver diseases (2 sources)Elevated liver enzymes level; Translations: [Abnormal levels of other serum enzymes]80-99-9125AtgiymkrTfeuz lower respiratory disease (6 sources)Nodule of lung; Translations: [Solitary pulmonary nodule]Episodic Other lower respiratory disease (2 sources)Dyspnea; Translations: [Shortness of breath]48-47-4816UwactvsvRuezc lower respiratory disease (1 source)Multiple nodules of lung; Translations: [Other nonspecific abnormal finding of lung field]62-71-2374ErzzqzuaBxprm non-traumatic joint disorders (4 sources)Pain in right shoulder; Translations: [PAIN IN RIGHT SHOULDER]Onset: 21-83-4783QkitndebCnpui nutritional; endocrine; and metabolic disorders (1 source)Abnormal weight loss; Translations: [Abnormal weight loss]Episodic Other skin disorders (1 source)Disorder of pigmentation, unspecifiedEpisodicOther skin disorders (1 source)Thin skin; Translations: [Changes in skin texture]84-40-0495Znioedcl Other upper respiratory disease (2 sources)Chronic rhinitis; Translations: [Chronic rhinitis]91-51-0809Sqgcduo Other upper respiratory disease (1 source)Bronchiolar disease; Translations: [Other diseases of bronchus, not elsewhere classified]EpisodicResidual codes; unclassified (3 sources)Tobacco use and exposure - finding; Translations: [Tobacco use] 52-23-2093UlbdrkoqZjzbfjmp codes; unclassified (1 source)Family history of malignant neoplasm of digestive organ; Translations: [Family history of malignantneoplasm of digestive organs]Onset: 10-23-2024 EpisodicResidual codes; unclassified (2 sources)Tobacco user; Translations: [Tobacco use]40-31-3389NqfvoraaXuunzahr codes; unclassified (1 source)Localized edema; Translations: [Localized edema]Onset: 12-17-2024 EpisodicSecondary malignancies (9 sources)Secondary malignant neoplasm of brain; Translations: [Secondary malignant neoplasm of brain]28-31-4326ScabfreRzuwssoxl malignancies (1 source)Secondary malignant neoplasm of brain and spinal cord; Translations: [Secondary malignant neoplasm of brain]40-51-1249GguhehjVbeayylmg malignancies (1 source)Secondary malignant neoplasm of vpkg57-45-2225PjfxpzxUlizpxwdn malignancies (1 source)Secondary malignant neoplasm of bone; Translations: [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)]Onset: 77-69-9489XuzayklHuzsjdxuz malignancies (1 source)Secondary malignant neoplasm of brain; Translations: [Secondary malignant neoplasm of brain (HCC)]Onset: 84-49-9067WfwybedFnzeoylhk-related disorders (20 sources)Smoker; Translations: [Nicotine dependence, unspecified, uncomplicated]Onset: 01-12-2017 Resolved: 459624-35-7011HcplxucNzxwmje on above:Added secondary to documentation in Social History.Syncope (2 sources)Syncope and collapse; Translations: [Syncope and collapse]12-27-2023 EpisodicThyroid disorders (5 sources)Hypothyroidism caused by drug; 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]Onset: hronic Thyroid disorders (1 source)Thyroid dysfunction; Translations: [Disorder of thyroid, unspecified] 90-18-5116AkupzizqCcdprxugwpdw (1 source)ConsultOnset: 72-27-2446Xahenuxgdjsl (1 source)Episodic migraine (CMS/HCC)01-31-2024 Past or Other Problems Problem ClassificationProblemDateDocumented DateEpisodic/ChronicAbdominal pain (9 sources)Epigastric pain; Translations: [Epigastric pain]Onset: 10-22-2024 Resolved: 287436-57-6699FhzizyvhShdvjgdnpqojkz/social admission (20 sources)Discharge status; Translations: [Encounter for administrative examinations, unspecified]Onset: 11-15-2022 Resolved: 049719-29-4588WjinxiiiUznpdwqq of urinary tract (12 sources)Kidney stone; Translations: [Calculus of kidney]Onset: 05-04-2022 Resolved: 38-32-5968JwuyxtamPwxuqu of bronchus; lung (2 sources)History of malignant neoplasm of thoracic cavity structure; Translations: [Personal history of other malignant neoplasm of bronchus and lung]Onset: 134502-64-1364JqehhyxbNfljhjpslu and other anemia (20 sources)Anemia; Translations: [Anemia, unspecified]Onset: 01-01-2018 Resolved: 27-55-0161JisnzmjbJtopxiajtt and other anemia (1 source)Anemia, unspecified; Translations: [Anemia, unspecified type]Onset: 33-72-1209UcdodsxoZuwyhhmx of mouth; excluding dental (7 sources)Lesion of tongue; Translations: [Other diseases of tongue]Onset: 746255-28-0198RcmlqvvzWfpbhjwbx and duodenitis (1 source)Acute gastritis without bleedingOnset: 05-17-2021 Resolved: 80-34-1574JguacqasOnmsgbucb (4 sources)Acute hepatitis; Translations: [Acute viral hepatitis, unspecified] Onset: 820058-00-0578ZwancutqOhcqgmyytfuns and screening for infectious disease (20 sources)Contact with or exposure to other viral diseases; Translations: [Close exposure to COVID-19 virus]Onset: 11-23-2022 Resolved: 57-51-1709YuylxqsjMnnxwmx and fatigue (16 sources)Malaise and fatigue; Translations: [Other malaise]Onset: 07-04-2024 48-87-8388EnmgoxiwOjfipfgtudemt gastroenteritis (3 sources)Colitis; Translations: [Noninfective gastroenteritis and colitis, unspecified]Onset: 606578-04-4021AujbhjphRohznxitrlm deficiencies (3 sources)Vitamin D deficiency; Translations: [Vitamin D deficiency, unspecified]Onset: 10-30-2024 Resolved: 188180-62-5415RfkxuceXwecrltmdpr deficiencies (1 source)CachexiaOnset: 09-23-2021 Resolved: 98-50-7984RwkyrdanTuzmtbckxiua (3 sources)Senile osteoporosis; Translations: [Age-related osteoporosis without current pathological fracture]Onset: 10-30-2024 Resolved: 453754-66-3718ExknhszOxmep connective tissue disease (9 sources)H/O: musculoskeletal disease; Translations: [Personal history of other diseases of the musculoskeletal system and connective tissue]Onset: 10-30-2024 Resolved: 286766-94-6342MxrrnuhpYtloo disorders of stomach and duodenum (9 sources)Nonulcer dyspepsia; Translations: [Functional dyspepsia]Onset: 10-30-2024 Resolved: 443681-36-8838XdusiueiWpeqw gastrointestinal disorders (1 source)Diarrhea, unspecified; Translations: [Diarrhea, unspecified type] Onset: 99-34-5724HdzahputXhoul liver diseases (1 source)Abnormal levels of other serum enzymes; Translations: [Elevated liver enzymes]Onset: 11-04-0717RrefrijbFbqpf lower respiratory disease (20 sources)Cough; Translations: [Cough in adult]Onset: 11-06-2017 Resolved: 017786-61-8238QavrmumjIoaso lower respiratory disease (9 sources)Lung mass; Translations: [Other nonspecific abnormal finding of lung field]Onset: 10-30-2024 Resolved: 743483-87-9631SvcrwksfElrov nervous system disorders (3 sources)Carpal tunnel syndrome of left wrist; Translations: [Carpal tunnel syndrome, left upper limb]Onset: 10-30-2024 Resolved: 446650-28-8141OjdvxfwBexpt nervous system disorders (3 sources)Spinal cord compression; Translations: [Unspecified cord compression] Onset: 10-30-2024 Resolved: 430471-06-7801BjetansIpphe nervous system disorders (20 sources)Acute postoperative pain; Translations: [Other acute postprocedural pain]Onset: 11-15-2022 Resolved: 451726-14-9257KsiygdzaLfbdh nutritional; endocrine; and metabolic disorders (1 source)Abnormal weight lossOnset: 09-23-2021 Resolved: 95-21-0189LrgxikfrVuzdp screening for suspected conditions (not mental disorders or infectious disease) (4 sources)Blood chemistry abnormal; Translations: [Abnormal finding of blood chemistry, unspecified]Onset: 017555-97-9844VumhyewmAqowq skin disorders (1 source)Changes in skin texture; Translations: [Thinning of skin]Onset: 71-29-6047McbkhktnEylqjsvng (except that caused by tuberculosis or sexually transmitted disease) (20 sources)Pneumonia; Translations: [Pneumonia, unspecified organism]Onset: 01-12-2017 Resolved: 041877-68-6345XxjuetufFpwinnjr codes; unclassified (4 sources)Family history of cancer of colon; Translations: [Family history of malignant neoplasm of digestiveorgans]Onset: 10-30-2024 Resolved: 766094-97-6157RadppkhnVfqplxqte and history of mental health and substance abuse codes (1 source)Personal history of nicotine dependence; Translations: [Personal history of tobacco use]Onset: 44-45-3829KcanzsaqOhwucugafia; intervertebral disc disorders; other back problems (3 sources)Displacement of cervical intervertebral disc; Translations: [Other cervical disc displacement, unspecified cervical region]Onset: 10-30-2024 Resolved: 869477-98-0326HzqkcheMtgebmrpwqq; intervertebral disc disorders; other back problems (20 sources)Backache; Translations: [Dorsalgia, unspecified]Onset: 01-12-2017 Resolved: 179038-83-0175DyjixytaKhhsziljmbfx (6 sources)Radiation therapy cufu18-90-4945Yfofgrw tract infections (20 sources)Urinary tract infectious disease; Translations: [Urinary tract infection, site not specified]Onset: 345404-83-5525Vmheeniq Results Test NameValueInterpretationReference RangeFacilityCNPNon 14-41-9708UGCRWevbbz [facility] W Auto Differential panel (Bld)on 12-17-2024 Basophils (Bld) [#/Vol]0.06 10*3/uLNormal<0.11CVeterans Health Administration on above:Order Comment: Specimen Type: BLOOD SPECIMENOrdering Facility: [facility] Address:[address] [place] [address] Performed By: #### 19247-3 ####[facility] LABCLIA [id number] [place], [place] [address]Rppktganm/100 WBC (Bld)0.6 % NormalMount Carmel Health System on above:Order Comment: Specimen Type: BLOOD SPECIMENOrdering Facility: [facility] Address:[address] [place], [place] [address]Performed By: #### 92112-7 ####[facility] LABCLIA [id number] [place] [address] Differential cell count method Nom (Bld)AutoNormalClevelAtrium Health [facility]inas [facility] Comment on above:Order Comment: Specimen Type: BLOOD SPECIMENOrdering Facility: [facility] Address:[address] [place] [address] Performed By: #### 43930-1 ####[facility] LABCLIA [id number] [place], [place] [address]Eoyqfpbuwnn (Bld) [#/Vol]0.04 10*3/uLNormal<0.46[facility] on above:Order Comment: Specimen Type: BLOOD SPECIMENOrdering Facility: [facility] Address:[address] [place], [place] [address]Performed By: #### 39493-6 ####[facility] LABCLIA [id number] [place], [place] [address]Pvzycekiwls/100 WBC (Bld)0.4 %NormalMount Carmel Health System on above:Order Comment: Specimen Type: BLOOD SPECIMENOrdering Facility: [facility] Address:[address] [place], [place] [address]Performed By: #### 73514-0 ####[facility] LABIA [id number] [place], [place] [address]Csgocqyftxf distribution width (RBC) [Ratio]17.6 %High11.5-15.0[facility] on above:Order Comment: Specimen Type: BLOOD SPECIMENOrdering Facility: [facility] Address:[address] [place], [place] [address]Performed By: #### 70901- 8 ####[facility] LABCLIA [id number] [place], [place] [address]Zeprlcckop (Bld) [Volume fraction]37.7 %Yjqmbp21.0-46.0 [facility] on above:Order Comment: Specimen Type: BLOOD SPECIMENOrdering Facility: [facility] Address:[address] [place], [place] [address]Performed By: #### 56035-6 ####[facility] LABCLIA [id number] [place], [place] [address]Ttlxbxbaqv (Bld) [Mass/Vol]12.0 g/lWNasgvv52.5-15.5CVeterans Health Administration on above: Order Comment: Specimen Type: BLOOD SPECIMENOrdering Facility: [facility] Address:[address] [place], [place] [address]Performed By: #### 17281- 8 ####[facility] LABCLIA [id number] [place], [place] [address]Ivfkuppw granulocytes (Bld) [#/Vol]0.22 10*3/uLHigh<0.10 [facility] on above:Order Comment: Specimen Type: BLOOD SPECIMENOrdering Facility: [facility] Address:[address] [place], [place] [address]Performed By: #### 85659-0 ####[facility] LABIA [id number] [place], [place] [address]Pxwxlsfa granulocytes/100 WBC (Bld)2.2 %NormalMount Carmel Health System on above: Order Comment: Specimen Type: BLOOD SPECIMENOrdering Facility: [facility] Address:[address] [place], [place] [address]Performed By: #### 85344- 8 ####[facility] LABIA [id number] [place], [place] [address]Hlotxvveeri (Bld) [#/Vol]1.38 10*3/uLNormal1.00-4.00 [facility] on above:Order Comment: Specimen Type: BLOOD SPECIMENOrdering Facility: [facility] Address:[address] [place], [place] [address]Performed By: #### 11287-1 ####[facility] LABCLIA [id number] [place], [place] [address]Tlehhuqphef/100 WBC (Bld)13.5 %NormalMount Carmel Health System on above:Order Comment: Specimen Type: BLOOD SPECIMENOrdering Facility: [facility] Address:[address] [place], [place] [address]Performed By: #### 23363-8 ####[facility] LABCLIA [id number] [place], [place] [address]DZG (RBC) [Entitic mass]30.1 oiSejhxi11.0-34.0[facility] on above:Order Comment: Specimen Type: BLOOD SPECIMENOrdering Facility: [facility] Address:[address] [place], [place] [address]Performed By: #### 35985-8 ####[facility] LABCLIA [id number] [place], [place] [address]XFBW (RBC) [Mass/Vol]31.8 g/jHEcgurr89.5-36.0[facility] on above: Order Comment: Specimen Type: BLOOD SPECIMENOrdering Facility: [facility] Address:[address] [place], [place] [address]Performed By: #### 08796- 8 ####[facility] LABCLIA [id number] [place], [place] [address]PQZ (RBC) [Entitic vol]94.5 qKWvgjuu62.0-100.0[facility] on above:Order Comment: Specimen Type: BLOOD SPECIMENOrdering Facility: [facility] Address:[address] [place], [place] [address]Performed By: #### 55823-7 ####[facility] LABCLIA [id number] [place], [place] [address]Ndqgidcrn (Bld) [#/Vol]1.62 10*3/uLHigh<0.87[facility] on above:Order Comment: Specimen Type: BLOOD SPECIMENOrdering Facility: [facility] Address:[address] [place], [place] [address]Performed By: #### 72175- 8 ####[facility] LABCLIA [id number] [place], [place] [address]Efiqrcjrz/100 WBC (Bld)15.9 %NormalMount Carmel Health System on above:Order Comment: Specimen Type: BLOOD SPECIMENOrdering Facility: [facility] Address:[address] [place], [place] [address]Performed By: #### 65795-0 ####[facility] LABIA [id number] [place], [place] [address]Skoasyojjfa (Bld) [#/Vol]6.87 10*3/uLNormal1.45-7.50[facility] on above:Order Comment: Specimen Type: BLOOD SPECIMENOrdering Facility: [facility] Address:[address] [place], [place] [address]Performed By: #### 29888-9 ####[facility] LABCLIA [id number] [place], [place] [address]Oemwfilggqr/100 WBC (Bld)67.4 %NormalMount Carmel Health System on above:Order Comment: Specimen Type: BLOOD SPECIMENOrdering Facility: [facility] Address:[address] [place], [place] [address]Performed By: #### 24176-6 ####[facility] LABIA [id number] [place], [place] [address]Honotiftp RBC (Bld) [#/Vol] 10*3/uLNormal<0.01[facility] on above:Order Comment: Specimen Type: BLOOD SPECIMENOrdering Facility: [facility] Address:[address] [place], [place] [address]Performed By: #### 85926-2 ####[facility] LABCLIA [id number] [place], [place] [address]Ygbotakmb RBC/100 WBC (Bld) [Ratio]0.0 /100 WBCNormal [facility] on above:Order Comment: Specimen Type: BLOOD SPECIMENOrdering Facility: [facility] Address:[address] [place], [place] [address]Performed By: #### 66065-2 ####[facility] LABCLIA [id number] [place], [place] [address]Mzbnqbfj mean volume (Bld) [Entitic vol]9.4 fLNormal9.0-12.7CVeterans Health Administration on above:Order Comment: Specimen Type: BLOOD SPECIMENOrdering Facility: [facility] Address:[address] [place] [address] Performed By: #### 76946-9 ####[facility] LABCLIA [id number] [place], [place] [address]Xxuioxmwm (Bld) [#/Vol]338 10*3/zDAhcsus008-293YccdkxmmnMount Carmel Health System on above:Order Comment: Specimen Type: BLOOD SPECIMENOrdering Facility: [facility] Address:[address] [place], [place] [address]Performed By: #### 60100-5 ####[facility] LABCLIA [id number] [place], [place] [address]BUG (Bld) [#/Vol]3.99 10*6/uLNormal3.90-5.20[facility] on above:Order Comment: Specimen Type: BLOOD SPECIMENOrdering Facility: [facility] Address:[address] [place], [place] [address]Performed By: #### 37715-7 ####[facility] LABCLIA [id number] [facility], [place] [address]ILP (Bld) [#/Vol]10.19 10*3/uLNormal3.70-11.00[facility] on above: Order Comment: Specimen Type: BLOOD SPECIMENOrdering Facility: [facility] Address:[address] [place], [place] [address]Performed By: #### 26799- 8 ####[facility] LABCLIA [id number] [facility] [place], [place] [address]GOSSMKam 51-36-0616NGOSIYUtfpndMlvltvwciAdena Health System metabolic 2000 panelon 69-33-8590Xjkvbst [Mass/Vol]4.1 g/dLNormal 3.9-4.9CVeterans Health Administration on above:Order Comment: Specimen Type: BLOOD SPECIMENOrdering Facility: [facility] Address:[address] [place], [place] [address]Performed By: #### 63959-2 ####[facility] LABCLIA [id number] [place]ANNET[place]TRAJ[place]DAHF[place], [place] [address]MTE [Catalytic activity/Vol]208 U/TSdbz08-919YfardfmnhMount Carmel Health System on above:Order Comment: Specimen Type: BLOOD SPECIMENOrdering Facility: [facility] Address:[address] [place], [place] [address]Performed By: #### 20319-4 ####[facility] LABCLIA [id number] [facility] T[facility] TURCIOSWINSLOW INDI[facility] HEALTHCARE CENTERELIZABETHALBION, [place] [address]NVG [Catalytic activity/Vol]11 U/LNormal7-38[facility] on above:Order Comment: Specimen Type: BLOOD SPECIMENOrdering Facility: [facility] Address:[address] [place], [place] [address]Performed By: #### 79752-2 ####[facility] LABCLIA [id number] [facility] [facility] CENTERJUDAHWINSLOW INDIAN HEALTHCARE CENTERKHADIJAHBLOOMER, [place] [address]Nepel gap [Moles/Vol]15 mmol/LNormal8-15[facility] on above:Order Comment: Specimen Type: BLOOD SPECIMENOrdering Facility: [facility] Address:[address] [place], [place] [address]Performed By: #### 95556- 8 ####[facility] LABCLIA [id number] [facility] [place], [place] [address]TFY [Catalytic activity/Vol]14 U/AXalekk15-66XckxuxkstMount Carmel Health System on above:Order Comment: Specimen Type: BLOOD SPECIMENOrdering Facility: [facility] Address:[address] [place], [place] [address]Performed By: #### 89667-7 ####[facility] LABCLIA [id number] [address] [facility] MEDICAL CENTERJUDAHFOUNTAIN, [place] [address]Kwuqpzrvv [Mass/Vol]0.4 mg/dLNormal0.2-1.3CVeterans Health Administration on above:Order Comment: Specimen Type: BLOOD SPECIMENOrdering Facility: [facility] Address:[address] [place], [place] [address]Performed By: #### 79462- 8 ####[facility] LABCLIA [id number] [facility] [place] [place], [place] [address]Nncnmjt [Mass/Vol]9.4 mg/dLNormal8.5-10.2CVeterans Health Administration on above:Order Comment: Specimen Type: BLOOD SPECIMENOrdering Facility: [facility] Address:[address] [place], [place] [address]Performed By: #### 60665-3 ####[facility] LABIA [id number] [place], [place] [address]Sxwedctr [Moles/Vol]97 mmol/L Ons28-291NoeftmjmyMount Carmel Health System on above:Order Comment: Specimen Type: BLOOD SPECIMENOrdering Facility: [facility] Address:[address] [place], [place] [address]Performed By: #### 71161-8 ####[facility] LABCLIA [id number] [place] [address] CO2 [Moles/Vol]24 mmol/ELgoghy62-95LihefswzqMount Carmel Health System on above: Order Comment: Specimen Type: BLOOD SPECIMENOrdering Facility: [facility] Address:[address] [place], [place] [address]Performed By: #### 36526- 8 ####[facility] LABIA [id number] [place], [place] [address]Ijlllkthei [Mass/Vol]1.16 mg/dLHigh0.58-0.96[facility] on above:Order Comment: Specimen Type: BLOOD SPECIMENOrdering Facility: [facility] Address:[address] [place], [place] [address]Performed By: #### 26602-1 ####[facility] [id number] [place], [place] [address]yTYYkw SerPlBld CKD-EPI 699751 mL/min/1.73m???Low>=60[facility] on above: Order Comment: Specimen Type: BLOOD SPECIMENOrdering Facility: [facility] Address:[address] [place], [place] [address]Result Comment: Estimated Glomerular Filtration Rate (eGFR) is calculated using the 2020 CKD-EPI cre atinine equation. This equation utilizes serum creatinine, sex, and age as parameters. The creatinine assay has traceable calibration to isotope dilution- mass spectrometry. Refer to KDIGO guidelines for clinical interpretation. In patients with unstable renal function, e.g. those with acute kidney injury, the eGFR may not accurately reflect actual GFR.Performed By: #### 31429-6 ####[facility] LABIA [id number] [place], [place] [address]Gzznivm [Mass/Vol]154 mg/sLYsye78-53IebhsnrbtMount Carmel Health System on above:Order Comment: Specimen Type: BLOOD SPECIMENOrdering Facility: [facility] Address:[address] [place], [place] [address]Result Comment: The [place] Diabetes Association (ADA) provides guidance for cutoff values for fasting glucose and random glucose. The ADA defines fasting as no caloric intake for at least 8 hours. Fasting plasma glucose results between 100 to 125 mg/dL indicate increased risk for diabetes (prediab etes).Fasting plasma glucose results greater than or equal to 126 mg/dL meet the criteria for diagnosis of diabetes. In the absence of unequivocal hyperglycemia, results should be confirmed by repeattesting. In a patient with classic symptoms of hyperglycemia or hyperglycemic crisis, random plasmaglucose results greater than or equal to 200 mg/dL meet the criteria for diagnosis of diabetes.Reference: Standards of Medical Care in Diabetes 2016, [place] [employer] Association. Diabetes Care. 2016.39(Suppl 1).Performed By: #### 86675-1 ####[facility] LABCLIA [id number] [place], [place] [address]Ninasulxt [Moles/Vol]3.9 mmol/LNormal3.7-5.1CVeterans Health Administration on above:Order Comment: Specimen Type: BLOOD SPECIMENOrdering Facility: [facility] Address:[address] [place], [place] [address]Performed By: #### 84228-9 ####[facility] LABCLIA [id number] [place], [place] [address]Wgjwlfk [Mass/Vol]7.3 g/dLNormal6.3-8.0[facility] on above:Order Comment: Specimen Type: BLOOD SPECIMENOrdering Facility: [facility] Address:[address] [place], [place] [address]Performed By: #### 92659- 8 ####[facility] LABCLIA [id number] [place], [place] [address]Aaqbtw [Moles/Vol]136 mmol/RKepfef033-981OtfgddkfwMount Carmel Health System on above:Order Comment: Specimen Type: BLOOD SPECIMENOrdering Facility: [facility] Address:[address] [place], [place] [address]Performed By: #### 62442-1 ####[facility] LABCLIA [id number] [place], [place] [address]Mzdo nitrogen [Mass/Vol]20 mg/dLNormal-[facility] on above:Order Comment: Specimen Type: BLOOD SPECIMENOrdering Facility: [facility] Address:[address] [place], [place] [address]Performed By: #### 57919-4 ####[facility] LABCLIA [id number] [place], [place] [address]Ncqrbc SerPl-mCncon 62-84-1380Kiaimaje [Mass/Vol]26.4 ug/dLHigh4.8-19.5CVeterans Health Administration on above:Order Comment: Specimen Type: BLOOD SPECIMENOrdering Facility: [facility] Address:[address] [place], [place] [address]Result Comment: Provided reference range is from 6-10 AM sample collection time.Cortisol Reference Range: 6-10 AM = 4.8-19.5 ug/dL, 4-8 PM = 2.5-11.9 ug/dLPerformed By: #### 2143-6, 3016-3 ####[facility] LABIA [id number] [place] [id number] [place] SSZUFIWMyI3a (Bld)on 66-55-7853Luojzfu glucose Estimated from glycated hemoglobin (Bld) [Mass/Vol]103 mg/dLNormal [facility] on above:Order Comment: Specimen Type: BLOOD SPECIMENOrdering Facility: [facility] Address:[address] [place], [place] [address]Result Comment: eAG: (Estimated average glucose) is a calculated value from HgbA1c and is insurance sales representative of the average blood glucose level in the last 2-3 month period.Performed By: #### 99824-6 ####[facility] LABIA [id number] [address] [address] [place] QOQTJDHIgY1a (Bld) [Mass fraction]5.2 %Normal4.3-5.6 [facility] on above:Order Comment: Specimen Type: BLOOD SPECIMENOrdering Facility: [facility] Address:[address] [place], [place] [address]Result Comment: [place] [employer] guidelines indicate that patients with HgbA1c in the range 5.7-6.4% are at increased risk for development of diabetes, and intervention by lifestyle modification may be beneficial. HgbA1c greater or equal to 6.5% is considered diagnostic of diabetes.Performed By: #### [id number] ####[facility] [id number] [place] [address] [place] TSH SerPl-aCncon [id number] Qn1.980 m[IU]/LNormal0.270-4.200[facility] on above:Order Comment: Specimen Type: BLOOD SPECIMENOrdering Facility: [facility] [facility] Address:[address] [place], [place] [address]Performed By: #### 2143-6, 3016-3 ####[facility] LABIA [id number] [place] [address] [place] Bacteria Ur Culton 53-18-7732Shxrnixr identified Cx Nom (U)ORGANISM ID: 1 10,000 -<50,000 CFU/ml Normal urogenital floraNormalCACMC Healthcare System Glen[facility] Comment on above:Performed By: #### 630-4 ####[facility] LABIA [id number] [place] [id number] [place] AMERICANM PET/CT SKULL-THIGH SUBQon 93-12-1115CH PET/CT SKULL-THIGH SUBQNormal [facility] Private HospitalUrinalysis complete panel (U)on 27-36-1118Cdyycfwo LM.HPF (Urine sed) [#/Area]NegativeNormalNegativeKeenan Private Hospital Comment on above:Order Comment: Specimen Type: URINE SPECIMENOrdering Facility: [facility] Address:[address] [place] [address] Performed By: #### 89088-4 ####[facility] LABCLIA [id number] [address] [place] [address] [place] Bilirubin Ql (U)NegativeNormalNegativeMount Carmel Health System on above:Order Comment: Specimen Type: URINE SPECIMENOrdering Facility: [facility] Address:[address] [place], [place] [address]Performed By: #### 33136-9 ####[facility] LABCLIA [id number] [address] [place] [address] [place] AMERICAClarity (Unsp spec) ClearNormalClearMount Carmel Health System on above:Order Comment: Specimen Type: URINE SPECIMENOrdering Facility: [facility] Address:[address] [place], [place] [address]Performed By: #### 97718-8 ####[facility] LABCLIA [id number] [address] [place] [address] [place] AMERICAColor (U)YellowNormalYellow [facility] on above:Order Comment: Specimen Type: URINE SPECIMENOrdering Facility: [facility] Address:[address] [place], [place] [address]Performed By: #### 48987-0 ####[facility] LABCLIA [id number] [address] [place] [address] [place] AMERICAEpithelial cells LM.HPF (Urine sed) [#/Area]None SeenNoSt. Vincent Hospital on above:Order Comment: Specimen Type: URINE SPECIMENOrdering Facility: [facility] Address:[address] [place], [place] [address]Performed By: #### 79838-2 ####[facility] LABCLIA [id number] [address] [place] [address] [place] AMERICAGlucose Test strip (U) [Mass/Vol]NegativeNormalNegativeMount Carmel Health System on above:Order Comment: Specimen Type: URINE SPECIMENOrdering Facility: [facility] Address:[address] [place], [place] [address]Performed By: #### 45428-3 ####[facility] LABCLIA [id number] [place] [address] [place] Hemoglobin Ql (U)NegativeNormalNegativeMount Carmel Health System on above:Order Comment: Specimen Type: URINE SPECIMENOrdering Facility: [facility] Address:[address] [place], [place] [address]Performed By: #### 74656-0 ####[facility] LABCLIA [id number] [place] [address] [place] AMERICAHyaline casts (Urine sed) [#/Area]0 /[LPF]Normal0 /LPFCVeterans Health Administration on above: Order Comment: Specimen Type: URINE SPECIMENOrdering Facility: [facility] Address:[address] [place], [place] [address]Performed By: #### 60296- 8 ####[facility] LABCLIA [id number] [place] [address] [place] AMERICAKetones Ql (U)NegativeNormal NegativeMount Carmel Health System on above:Order Comment: Specimen Type: URINE SPECIMENOrdering Facility: [facility] Address:[address] [place], [place] [address]Performed By: #### 65502-2 ####[facility] LABCLIA [id number] [place] [address] [place] AMERICALeukocyte esterase Test strip Ql (U)NegativeNormal NegativeMount Carmel Health System on above:Order Comment: Specimen Type: URINE SPECIMENOrdering Facility: [facility] Address:[address] [place], [place] [address]Performed By: #### 78669-4 ####[facility] LABCLIA [id number] [address], [facility]95 [place] AMERICANitrite Ql (U)NegativeNormalNegativeMount Carmel Health System on above:Order Comment: Specimen Type: URINE SPECIMENOrdering Facility: [facility] Address:[address] [place], [place] [address]Performed By: #### 94860-0 ####[facility] LABCLIA [id number] [place] [address] [place] pH (U)6.5 [pH]Normal5.0-8.0[facility] on above:Order Comment: Specimen Type: URINE SPECIMENOrdering Facility: [facility] Address:[address] [place], [place] [address]Performed By: #### 31655- 8 ####[facility] LABCLIA [id number] [address] STATES HEALTH SYSTEMProtein (U) [Mass/Vol]Negative NormalNegativeMount Carmel Health System on above:Order Comment: Specimen Type: URINE SPECIMENOrdering Facility: [facility] Address:[address] [place], [place] [address]Performed By: #### 59546-5 ####[facility] LABCLIA [id number] [place] [address] [place] [facility] MED[facility] CENTERRB LM.HPF (Urine sed) [#/Area]0-2 /HPFNormal0-2 /HPF [facility] on above:Order Comment: Specimen Type: URINE SPECIMENOrdering Facility: [facility] Address:[address] [place], [place] [address]Performed By: #### 51822-8 ####[facility] LABCLIA [id number] [place] [address] [place] AMERICASpecific gravity (U) [Rel density]1.927Dvxgow5.005-1.030[facility] on above:Order Comment: Specimen Type: URINE SPECIMENOrdering Facility: [facility] Address:[address] [place], [place] [address]Performed By: #### 51296-1 ####[facility] LABCLIA [id number] [place] [address] [place] Urobilinogen Ql (U)0.2 EU/dLNormal0.2-1.0 EU/dLMount Carmel Health System on above:Order Comment: Specimen Type: URINE SPECIMENOrdering Facility: [facility] Address:[address] [place] [address] Performed By: #### 33119-0 ####[facility] LABIA [id number] [place] [address] [place] WBC LM.HPF (Urine sed) [#/Area]0-5 /HPFNormal0-5 /HPFKeenan Private Hospital Comment on above:Order Comment: Specimen Type: URINE SPECIMENOrdering Facility: [facility] Address:[address] [place] [address] Performed By: #### 53453-3 ####[facility]ITAL[facility] [id number] [place] [address] [place] CBC W Auto Differential panel (Bld)on 06-59-0709Nwjwpmcgk (Bld) [#/Vol]0.06 10*3/uLNormal<0.11CVeterans Health Administration on above:Order Comment: Specimen Type: BLOOD SPECIMENOrdering Facility: [facility] Address:[address] [place], [place] [address]Performed By: #### 18478-4 ####[facility] LABCLIA [id number] [place], [place] [address]Hstzkyjkk/100 WBC (Bld)0.4 %NormalMount Carmel Health System on above:Order Comment: Specimen Type: BLOOD SPECIMENOrdering Facility: [facility] Address:[address] [place], [place] [address]Performed By: #### 68354-6 ####[facility] LABCLIA [id number] [place], [place] [address]Kdkfsdjgnghf cell count method Nom (Bld)AutoNormalCVeterans Health Administration on above:Order Comment: Specimen Type: BLOOD SPECIMENOrdering Facility: [facility] Address:[address] [place], [place] [address]Performed By: #### 75092-3 ####[facility] LABCLIA [id number] [place], [place] [address]Ebyfudcmzqo (Bld) [#/Vol]0.03 10*3/uLNormal<0.46[facility] on above:Order Comment: Specimen Type: BLOOD SPECIMENOrdering Facility: [facility] Address:[address] [place], [place] [address]Performed By: #### 34345-5 ####[facility] LABIA [id number] [place], [place] [address]Dkffwpmrxks/100 WBC (Bld)0.2 %NormalMount Carmel Health System on above:Order Comment: Specimen Type: BLOOD SPECIMENOrdering Facility: [facility] Address:[address] [place], [place] [address]Performed By: #### 89203-2 ####[facility] LABIA [id number] [place], [place] [address]Dlurdfqruxj distribution width (RBC) [Ratio]15.8 %High 11.5-15.0[facility] on above:Order Comment: Specimen Type: BLOOD SPECIMENOrdering Facility: [facility] Address:[address] [place], [place] [address]Performed By: #### 76270-3 ####[facility] LABIA [id number] [place] [address] Hematocrit (Bld) [Volume fraction]37.7 %Qkvocm46.0-46.0[facility] on above:Order Comment: Specimen Type: BLOOD SPECIMENOrdering Facility: [facility] Address:[address] [place], [place] [address]Performed By: #### 11465-4 ####[facility] LABCLIA [id number] [place], [place] [address]Snaihilskk (Bld) [Mass/Vol]11.9 g/xGKixkal99.5-15.5CVeterans Health Administration on above:Order Comment: Specimen Type: BLOOD SPECIMENOrdering Facility: [facility] Address:[address] [place], [place] [address]Performed By: #### 77441-0 ####[facility] LABCLIA [id number] [place], [place] [address]Ydfnkvtw granulocytes (Bld) [#/Vol]0.23 10*3/uLHigh<0.10 [facility] on above:Order Comment: Specimen Type: BLOOD SPECIMENOrdering Facility: [facility] Address:[address] [place], [place] [address]Performed By: #### 90243-4 ####[facility] LABCLIA [id number] [place], [place] [address]Syemwfnn granulocytes/100 WBC (Bld)1.4 %[facility] on above: Order Comment: Specimen Type: BLOOD SPECIMENOrdering Facility: [facility] Address:[address] [place], [place] [address]Performed By: #### 09878- 8 ####[facility] LABCLIA [id number] [place], [place] [address]Tkpfblebpcj (Bld) [#/Vol]1.15 10*3/uLNormal1.00-4.00 [facility] on above:Order Comment: Specimen Type: BLOOD SPECIMENOrdering Facility: [facility] Address:[address] [place], [place] [address]Performed By: #### 77957-9 ####[facility] LABIA [id number] [place], [place] [address]Bvdyvzruksz/100 WBC (Bld)6.9 %NormalMount Carmel Health System on above:Order Comment: Specimen Type: BLOOD SPECIMENOrdering Facility: [facility] Address:[address] [place], [place] [address]Performed By: #### 68530-2 ####[facility] LABCLIA [id number] [place], [place] [address]RBM (RBC) [Entitic mass]30.3 mlDgceuv56.0-34.0[facility] on above:Order Comment: Specimen Type: BLOOD SPECIMENOrdering Facility: [facility] Address:[address] [place], [place] [address]Performed By: #### 72106-7 ####[facility] LABCLIA [id number] [place], [place] [address]SQOY (RBC) [Mass/Vol]31.6 g/kCLiwdxr82.5-36.0[facility] on above: Order Comment: Specimen Type: BLOOD SPECIMENOrdering Facility: [facility] Address:[address] [place], [place] [address]Performed By: #### 32140- 8 ####[facility] LABIA [id number] [place], [place] [address]MDL (RBC) [Entitic vol]95.9 qIYjovxs20.0-100.0[facility] on above:Order Comment: Specimen Type: BLOOD SPECIMENOrdering Facility: [facility] Address:[address] [place], [place] [address]Performed By: #### 16120-8 ####[facility] LABIA [id number] [place], [place] [address]Jyciahfam (Bld) [#/Vol]0.67 10*3/uLNormal<0.87[facility] on above:Order Comment: Specimen Type: BLOOD SPECIMENOrdering Facility: [facility] Address:[address] [place], [place] [address]Performed By: #### 25421- 8 ####[facility] LABCLIA [id number] [place], [place] [address]Oldpvreyv/100 WBC (Bld)4.0 %NormalMount Carmel Health System on above:Order Comment: Specimen Type: BLOOD SPECIMENOrdering Facility: [facility] Address:[address] [place], [place] [address]Performed By: #### 89118-7 ####[facility] LABCLIA [id number] [place], [place] [address]Hgnlkkbcwdq (Bld) [#/Vol]14.44 10*3/uLHigh1.45-7.50[facility] on above:Order Comment: Specimen Type: BLOOD SPECIMENOrdering Facility: [facility] Address:[address] [place], [place] [address]Performed By: #### 55168-8 ####[facility] LABCLIA [id number] [place], [place] [address]Xbdpywrlnvm/100 WBC (Bld)87.1 %NormalMount Carmel Health System on above:Order Comment: Specimen Type: BLOOD SPECIMENOrdering Facility: [facility] Address:[address] [place], [place] [address]Performed By: #### 25791-7 ####[facility] LABCLIA [id number] [place], [place] [address]Wkvqxburu RBC (Bld) [#/Vol] 10*3/uLNormal<0.01[facility] on above:Order Comment: Specimen Type: BLOOD SPECIMENOrdering Facility: [facility] Address:[address] [place], [place] [address]Performed By: #### 66112-2 ####[facility] LABCLIA [id number] [place], [place] [address]Vqnmzetbg RBC/100 WBC (Bld) [Ratio]0.0 /100 WBCNormal [facility] on above:Order Comment: Specimen Type: BLOOD SPECIMENOrdering Facility: [facility] Address:[address] [place], [place] [address]Performed By: #### 76434-9 ####[facility] LABCLIA [id number] [place], [place] [address]Upycwroi mean volume (Bld) [Entitic vol]9.1 fLNormal9.0-12.7CVeterans Health Administration on above:Order Comment: Specimen Type: BLOOD SPECIMENOrdering Facility: [facility] Address:[address] [place] [address] Performed By: #### 09530-8 ####[facility] LABCLIA [id number] [place], [place] [address]Oaxrfrbel (Bld) [#/Vol]297 10*3/zBNiyxua605-301WfueajaosMount Carmel Health System on above:Order Comment: Specimen Type: BLOOD SPECIMENOrdering Facility: [facility] Address:[address] [place], [place] [address]Performed By: #### 81208-1 ####[facility] LABCLIA [id number] [place], [place] [address]ZIR (Bld) [#/Vol]3.93 10*6/uLNormal3.90-5.20[facility] on above:Order Comment: Specimen Type: BLOOD SPECIMENOrdering Facility: [facility] Address:[address] [place], [place] [address]Performed By: #### 81008-9 ####[facility] LABIA [id number] [place], [place] [address]MME (Bld) [#/Vol]16.58 10*3/uLHigh3.70-11.00[facility] on above: Order Comment: Specimen Type: BLOOD SPECIMENOrdering Facility: [facility] Address:[address] [place], [place] [address]Performed By: #### 07151- 8 ####[facility] LABCLIA [id number] ABBE TURCIOSWINSLOW INDIAN [facility]ALTHCARE [place]ENTER[place]AB[place] [address]AEZABUpz 72-49-6672LHVQBZFgreqiFgmovnieyAdena Health System metabolic 2000 panelon 20-61-4461Rbkbarc [Mass/Vol]4.4 g/dLNormal 3.9-4.9CVeterans Health Administration on above:Order Comment: Specimen Type: BLOOD SPECIMENOrdering Facility: [facility] Address:[address] [place], [place] [address]Performed By: #### 14959-4 ####[facility] LABCLIA [id number] ABBE HERRERAWINSLOW INDIAN HEALTHCARE CENTERELIZABETHALB[place], [place] [address]ULQ [Catalytic activity/Vol]120 U/GVqqlwz97-583HqtlkxjasMount Carmel Health System on above:Order Comment: Specimen Type: BLOOD SPECIMENOrdering Facility: [facility] Address:[address] [place], [place] [address]Performed By: #### 53879-4 ####[facility] LABCLIA [id number] [place]ANNETTE [place], [place] [address]UXF [Catalytic activity/Vol]9 U/LNormal7-38[facility] on above:Order Comment: Specimen Type: BLOOD SPECIMENOrdering Facility: [facility] Address:[address] [place], [place] [address]Performed By: #### 40950-3 ####[facility] LABCLIA [id number] JEANNETTEST. ANTHONY HOSPITALJUDAHWINSLOW INDIAN HEALTHCARE CENTERKHADIJAHBLOOMER, [place] [address]Ttnag gap [Moles/Vol]12 mmol/LNormal8-15[facility] on above:Order Comment: Specimen Type: BLOOD SPECIMENOrdering Facility: [facility] Address:[address] [place], [place] [address]Performed By: #### 00809- 8 ####[facility] LABCLIA [id number] JEANNETTE TARA TURCIOSWINSLOW INDIAN HEALTHCARE CENTERELIZABETHALBION, [place] [address]PZZ [Catalytic activity/Vol]12 U/UHah14-00Voomqwdwp Clinic ClevelandComment on above:Order Comment: Specimen Type: BLOOD SPECIMENOrdering Facility: [facility] Address:[address] [place], [place] [address]Performed By: #### 91694-3 ####[facility] LABCLIA [id number] [place], [place] [address]Akgpnwxop [Mass/Vol]0.3 mg/dLNormal0.2-1.3CVeterans Health Administration on above:Order Comment: Specimen Type: BLOOD SPECIMENOrdering Facility: [facility] Address:[address] [place], [place] [address]Performed By: #### 72744- 8 ####[facility] LABCLIA [id number] [facility] [place], [place] [address]Wgbtamj [Mass/Vol]9.7 mg/dLNormal8.5-10.2CVeterans Health Administration on above:Order Comment: Specimen Type: BLOOD SPECIMENOrdering Facility: [facility] Address:[address] [place], [place] [address]Performed By: #### 78220-7 ####[facility] LABCLIA [id number] [place], [place] [address]Vtcocarj [Moles/Vol]96 mmol/L Rzh17-517DhdocnmloMount Carmel Health System on above:Order Comment: Specimen Type: BLOOD SPECIMENOrdering Facility: [facility] Address:[address] [place], [place] [address]Performed By: #### 84871-6 ####[facility] LABCLIA [id number] [place] [address] CO2 [Moles/Vol]28 mmol/WRfoxgw28-43OuhqyxnjtMount Carmel Health System on above: Order Comment: Specimen Type: BLOOD SPECIMENOrdering Facility: [facility] Address:[address] [place], [place] [address]Performed By: #### 24030- 8 ####[facility] LABCLIA [id number] [place], [place] [address]Vlsyugwpaq [Mass/Vol]1.12 mg/dLHigh0.58-0.96[facility] on above:Order Comment: Specimen Type: BLOOD SPECIMENOrdering Facility: [facility] Address:[address] [place], [place] [address]Performed By: #### 61512-6 ####[facility] LABCLIA [id number] [place], [place] [address]yOMKkc SerPlBld CKD-EPI 567852 mL/min/1.73m???Low>=60[facility] on above: Order Comment: Specimen Type: BLOOD SPECIMENOrdering Facility: [facility] Address:[address] [place], [place] [address]Result Comment: Estimated Glomerular Filtration Rate (eGFR) is calculated using the 2020 CKD-EPI cre atinine equation. This equation utilizes serum creatinine, sex, and age as parameters. The creatinine assay has traceable calibration to isotope dilution- mass spectrometry. Refer to KDIGO guidelines for clinical interpretation. In patients with unstable renal function, e.g. those with acute kidney injury, the eGFR may not accurately reflect actual GFR.Performed By: #### 60778-8 ####[facility] LABCLIA [id number] [place], [place] [address]Dccifoi [Mass/Vol]134 mg/iLCssz59-08UvpblavmsMount Carmel Health System on above:Order Comment: Specimen Type: BLOOD SPECIMENOrdering Facility: [facility] Address:[address] [place], [place] [address]Result Comment: The [place] Diabetes Association (ADA) provides guidance for cutoff values for fasting glucose and random glucose. The ADA defines fasting as no caloric intake for at least 8 hours. Fasting plasma glucose results between 100 to 125 mg/dL indicate increased risk for diabetes (prediab etes).Fasting plasma glucose results greater than or equal to 126 mg/dL meet the criteria for diagnosis of diabetes. In the absence of unequivocal hyperglycemia, results should be confirmed by repeattesting. In a patient with classic symptoms of hyperglycemia or hyperglycemic crisis, random plasmaglucose results greater than or equal to 200 mg/dL meet the criteria for diagnosis of diabetes.Reference: Standards of Medical Care in Diabetes 2016, [place] Diabetes Association. Diabetes Care. 2016.39(Suppl 1).Performed By: #### 64928-5 ####[facility] LABCLIA [id number] [place], [place] [address]Jfsftpypw [Moles/Vol]4.1 mmol/LNormal3.7-5.1CVeterans Health Administration on above:Order Comment: Specimen Type: BLOOD SPECIMENOrdering Facility: [facility] Address:[address] [place], [place] [address]Performed By: #### 54749-8 ####[facility] LABIA [id number] [place], [place] [address]Wouybzl [Mass/Vol]6.8 g/dLNormal6.3-8.0[facility] on above:Order Comment: Specimen Type: BLOOD SPECIMENOrdering Facility: [facility] Address:[address] [place], [place] [address]Performed By: #### 85956- 8 ####[facility] LABCLIA [id number] [place], [place] [address]Nkhoqu [Moles/Vol]136 mmol/AQqnpep437-034RsuokyyyqMount Carmel Health System on above:Order Comment: Specimen Type: BLOOD SPECIMENOrdering Facility: [facility] Address:[address] [place], [place] [address]Performed By: #### 69180-3 ####[facility] LABCLIA [id number] [place], [place] [address]Dzvj nitrogen [Mass/Vol]23 mg/dLHigh7-21[facility] on above:Order Comment: Specimen Type: BLOOD SPECIMENOrdering Facility: [facility] Address:[address] [place], [place] [address]Performed By: #### 26926-2 ####[facility] LABCLIA [id number] [place] [address] Meghana Miguel-mCncon 63-06-2130Cmxqjesh [Mass/Vol]4.4 ug/dLLow4.8-19.5CVeterans Health Administration on above:Order Comment: Specimen Type: BLOOD SPECIMENOrdering Facility: [facility] Address:[address] [id number] Comment: Provided reference range is from 6-10 AM sample collection time.Cortisol Reference Range: 6-10 AM = 4.8-19.5 ug/dL, 4-8 PM = 2.5-11.9 ug/dLPerformed By: #### 3016-3, 2143-6 ####[facility] LABIA [id number] [place] [id number] [place] VEJJXTAAlR9a (Bld)on [id number] glucose Estimated from glycated hemoglobin (Bld) [Mass/Vol]120 mg/dLNormalCVeterans Health Administration on above:Order Comment: Specimen Type: BLOOD SPECIMENOrdering Facility: [facility] Address:[address] [place] [id number] Comment: eAG: (Estimated average glucose) is a calculated value from HgbA1c and is insurance sales representative of the average blood glucose level in the last 2-3 month period. Performed By: #### 27238-5 ####[facility] LABIA [id number] [place] [id number] [place] HbA1c (Bld) [Mass fraction]5.8 %High4.3-5.6CVeterans Health Administration on above:Order Comment: Specimen Type: BLOOD SPECIMENOrdering Facility: [facility] Address:[address] [place], [place] [address]Dxqejy Comment: [place] [employer] guidelines indicate that patients with HgbA1c in the range 5.7-6.4% are at increased risk for development of diabetes, and intervention by lifestyle modification may be beneficial. HgbA1c greater or equal to 6.5% is considered diagnostic of diabetes.Performed By: #### 02599-2 ####[facility] LABCLIA [id number] [address] [place] [id number] [facility] SerPl-aCncon [id number] Qn 2.970 m[IU]/LNormal0.270-4.200Keenan Private HospitalComment on above:Order Comment: Specimen Type: BLOOD SPECIMENOrdering Facility: [facility] Address:[facility] [place], [place] [address]Performed By: #### 3016- 3, 2143-6 ####[facility] DEMETRIAIA [id number] DINAH FERRISLAWRENCE MEDICAL CENTERMarc [address]ETCNPNon [id number] NormalKeenan Private HospitalGastroenterology Office/Clinic Noteon 10-24-2024 Gastroenterology Office/Clinic NoteGastroenterology Office/Clinic Note Chief Complaint Abdominal pain and vomiting. HPI Staff NEW Patient is a(n) 59 year old female who presents for a sick call for epigastric pain and vomiting. Patient states that she has cancer and has medication prescribed for nausea. PET scan every 3 months at [facility] in [place]. She was last seen at this clinic in 2020 for Non-ulcer dyspepsia and family history of colon cancer. Abdominal pain: When did you first have this pain: 2020 Quality (sharp, dull): sharp - July 2024 patient went to [facility] ER Constant or comes or go: constant location and radiation: all of abdomen Relation to food: no Improving or worsening factors: None Any blood thinners? aspirin Any GLP-1 agonists? no PET scan 08/28/24 @ [facility]: IMPRESSION Since FDG PET/CT 04/30/2024, PRIMARY DISEASE SITE: * Right upper lobe peribronchiolar nodular opacity with air bronchograms and associated low-level metabolic activity is not substantially changed, presumed posttreatment related uptake. JUAN ANTONIO DISEASE: * No metabolically active regional lymphadenopathy. METASTATIC DISEASE: * No metabolically active distant metastases. ADDITIONAL FINDINGS: * Persistent, intense metabolic activity localizing to the right aspect of the tongue . Although this is nonspecific and may be physiologic, correlation with direct visualization is recommended to evaluate for an underlying lesion. History of Present Illness Reviewed HPI collected by staff Review of Systems PHQ Score Initial Depression Screen Score: 0 SCORE All systems reviewed, negative; Except for above Physical Exam Vitals & Measurements HR: 81(Peripheral) BP: 150/78 HT: 149.8 cm HT: 59 in WT: 39.9 kg WT: 87.964 lb BMI: 17.78 No acute distress Procedure EGD w/ Dr. Jimenes 04/05/2018: Findings Esophagus: small sliding hiatal hernia, hiatal narrowing at 40 cm,Z line/GE junction at 38 cm Stomach: mild antral gastritis, multiple random biopsies obtained using cold biopsy forceps to ruleout H. pylori Duodenum: normal being examined portion of the duodenum Impression and Plan small sliding hiatal hernia mild antral gastritis, biopsied Pathology: Final Diagnosis (Verified) STOMACH, BIOPSY: ??? 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 ??? NO INTESTINAL METAPLASIA. Last Colonoscopy w/ Dr. Mcdonald 04/21/2015: Impression and Plan Diagnosis: rectal polyp status post snare polypectomy. Pathology Final Diagnosis (Verified) POLYP, RECTUM, POLYPECTOMY: HYPERPLASTIC POLYP. Assessment/Plan 1. Epigastric pain (R10.13: Epigastric pain) Has pain and burning in stomach No know triggers Lasts for 4-5 days Early satiety Takes Pepto for relief Denies constipation and diarrhea, reports normal BMs Hx of cancer, started as lung. Sees Dr Michael Britton EGD 04/05/18 showed a small sliding hiatal hernia, biopsy from the stomach showed mild chronic inactive gastritis with foveolar hyperplasia. - Schedule Gastric emptying study to evaluate - Bentyl prescribed - IBGard samples given - If colonoscopy is not needed we can consider EGD next follow-up if symptoms are not better 2. Vomiting (R11.10: Vomiting, unspecified) 3. Family history of colon cancer (Z80.0: Family history of malignant neoplasm of digestive organs) Mother, diagnosed in her 70s Brother, diagnosed in his 50s Colonoscopy 2016: 1 HP removed from rectum, otherwise normal - Will discuss with Dr Koenig to see if he supports screening colonoscopy given her FHx and her own personal history with cancer I, Eva Burr, personally scribed for Tri Savage on 10/23/2024 10:33:47. . Follow-up No qualifying data available Problem List/Past Medical History Ongoing Chemotherapy Epigastric pain Family history of colon cancer Lung cancer Non-ulcer dyspepsia Recurrent UTI Renal stone Smoker Stomach ulcer UTI symptoms Vomiting Historical Radiation therapy care Procedure/Surgical History Gamma-knife excision. (02/2024), Biopsy (08/10/2022), Bronchoscopy (02/08/2017), Carpal tunnel release, Esophagogastroduodenoscopy and biopsy, Gallbladder, Partial hysterectomy, Reconstruction of nose, Thoracoscopic wedge resection of lung. Medications Adult Aspirin 81 mg oral tablet, chewable, Chewed, Daily Bentyl 10 mg Cap, 10 mg= 1 cap(s), Oral, QID, 3 refills Compazine 10 mg oral tablet, 10 mg= 1 tab(s), Oral, q6hr, PRN famotidine 20 mg Tab fexofenadine, Oral folic acid, Daily Ibgard 90 mg oral delayed release capsule, 180 mg= 2 cap(s), Oral, BID, 3 refills Keytruda 50 mg intravenous injection Nature's Bounty Probiotic, Oral, Daily Nurtec ODT 75 mg oral tablet, disintegrating, Oral, Once Pantoprazole [address] Tab Suboxone 8 mg-2 mg sublingual film, 1.5 strips, SubLingual, Daily Tylenol, 500 mg, Oral, q4hr, PRN Zofran 8 mg T (more content not included)...[facility] Comment on above:Result Comment: Electronically Signed By: Eva Burr MA\.br\Date and Time Signed: 10/23/24 10:55 EDT\.br\Electronically Co-Signed By: Tri Savage MD\.br\Date and Time Co-Signed: 10/24/24 11:44 EDT Ambulatory Visit Summaryon 31-04-4223Bdseirggsb Visit SummaryAmbulatory Visit Summary DEBBY HERMOSILLO :1965 Visit Date:10/23/2024 Ambulatory Visit Instructions Your Diagnosis Epigastric pain Vomiting Family history of colon cancer Your Care Team Attending Physician - Tri Savage MD This Is Your Medications List dicyclomine (Bentyl 10 mg Cap) peppermint oil (Ibgard 90 mg oral delayed release capsule) Contact prescribing physician if questions or concerns acetaminophen (Tylenol) aspirin (Adult Aspirin 81 mg oral tablet, chewable) bifidobacterium-lactobacillus (Nature's Bounty Probiotic) buprenorphine-naloxone (Suboxone 8 mg-2 mg sublingual film) famotidine (famotidine 20 mg Tab) fexofenadine folic acid ondansetron (Zofran 8 mg Tab) pantoprazole (Pantoprazole [address] Tab) pembrolizumab (Keytruda 50 mg intravenous injection) prochlorperazine (Compazine 10 mg oral tablet) rimegepant (Nurtec ODT 75 mg oral tablet, disintegrating) Procedures Performed Gamma-knife excision. (02/2024), Biopsy (08/10/2022), Bronchoscopy (02/08/2017), Carpal tunnel release, Esophagogastroduodenoscopy and biopsy, Gallbladder, Partial hysterectomy, Reconstruction of nose, Thoracoscopic wedge resection of lung. Discharge Vitals Heart Rate (Peripheral) 81 Blood Pressure 150/78 Height 59 in Height 149.8 cm Weight 87.964 lb Weight 39.9 kg BMI 17.78 What to do next Scheduled Follow-Up Appointments Monday2025 2:40 PM EDT With: JESSIKA RINCON PA-C Where: [facility] [address] [address]- You Need to Complete the Following NM Gastric Emptying Study, 10/23/24, Routine, Order for Future Visit, Transport Mode: Wheelchair, Reason: Nausea, Epigastric pain Vomiting Family history of colon cancer, No, pp_set_radiology_subspecialty, [facility] Medications What How Much When Instructions New dicyclomine (Bentyl 10 mg Cap) 1 Capsules By Mouth 4 times a day Duration: 14 Days Refills: 3 Pickup at [facility]/pharmacy #[id number] New peppermint oil (Ibgard 90 mg oral delayed release capsule) 2 Capsules By Mouth 2 times a day Refills: 3 Pickup at [facility]/pharmacy #[id number] Unchanged acetaminophen (Tylenol) 500 Milligram By Mouth Every 4 hours as needed for as needed for pain Contact prescribing physician if questions or concerns Unchanged aspirin (Adult Aspirin 81 mg oral tablet, chewable) Chewed Every day Contact prescribing physician if questions or concerns Unchanged bifidobacterium-lactobacillus (Nature's Bounty Probiotic) By Mouth Every day Contact prescribing physician if questions or concerns Unchanged buprenorphine-naloxone (Suboxone 8 mg-2 mg sublingual film) 1.5 strips Sublingual Every day Contact prescribing physician if questions or concerns Unchanged famotidine (famotidine 20 mg Tab) Contact prescribing physician if questions or concerns Unchanged fexofenadine By Mouth Contact prescribing physician if questions or concerns Unchanged folic acid Every day Contact prescribing physician if questions or concerns Unchanged ondansetron (Zofran 8 mg Tab) 1 Tablets By Mouth 3 times a day as needed for Nausea Contact prescribing physician if questions or concerns Unchanged pantoprazole (Pantoprazole [address] Tab) Contact prescribing physician if questions or concerns Unchanged pembrolizumab (Keytruda 50 mg intravenous injection) Contact prescribing physician if questions or concerns Unchanged prochlorperazine (Compazine 10 mg oral tablet) 1 Tablets By Mouth Every 6 hours as neededfor Nausea Contact prescribing physician if questions or concerns Unchanged rimegepant (Nurtec ODT 75 mg oral tablet, disintegrating) By Mouth Once Contact prescribing physician if questions or concerns Pharmacy Information [facility]/pharmacy #[id number]: [address], [place] [id number] [phone] Allergies penicillins (Unknown) Problems Ongoing - Any problem that you are currently receiving treatment for. Chemotherapy Epigastric pain Family history of colon cancer Lung cancer Non-ulcer dyspepsia Recurrent UTI Renal stone Smoker Stomach ulcer UTI symptoms Vomiting Historical - Any problem that you are no longer receiving treatment for. Radiation therapy care Patient Survey You may receive a survey via text or e-mail asking about your office visit. Please share your experience with us by completing your survey. We appreciate your feedback and thank you for choosing us for your care. Patient Portal You may access all of your results and other medical record information on our secure patient portal. If you are not signed up for this yet, please contact [employer] at [phone] to get signed up today. Language Information Language assistance services are available as needed. [facility] CenterCNPNon [id number] [facility]an Private HospitalCNPNon 15-12-8126BEPRXctxffOqsmfpnsn [facility] [place] CBC W Auto Differential panel (Bld)on 54-34-8198Jmzrndcrl (Bld) [#/Vol]0.04 10*3/uLNormal<0.11CVeterans Health Administration on above:Order Comment: Specimen Type: BLOOD SPECIMENOrdering Facility: [facility] Address:[address] [place], [place] [address]Performed By: #### 50222-7 ####[facility] LABCLIA [id number] [place], [place] [address]Mnpmhecwn/100 WBC (Bld)0.3 %[facility] on above:Order Comment: Specimen Type: BLOOD SPECIMENOrdering Facility: [facility] Address:[address] [place], [place] [address]Performed By: #### 13082-2 ####[facility] LABCLIA [id number] [place], [place] [address]Pygxpsmblvdn cell count method Nom (Bld)AutoNormalCVeterans Health Administration on above:Order Comment: Specimen Type: BLOOD SPECIMENOrdering Facility: [facility] Address:[address] [place], [place] [address]Performed By: #### 80065-8 ####[facility] LABCLIA [id number] [place], [place] [address]Fvucwtiedhf (Bld) [#/Vol]0.08 10*3/uLNormal<0.46[facility] on above:Order Comment: Specimen Type: BLOOD SPECIMENOrdering Facility: [facility] Address:[address] [place], [place] [address]Performed By: #### 41309-7 ####[facility] LABCLIA [id number] [place], [place] [address]Qoxfzyhujla/100 WBC (Bld)0.7 %[facility] on above:Order Comment: Specimen Type: BLOOD SPECIMENOrdering Facility: [facility] Address:[address] [place], [place] [address]Performed By: #### 61905-2 ####[facility] LABIA [id number] [place], [place] [address]Mqpcjtnrqra distribution width (RBC) [Ratio]14.9 %Normal 11.5-15.0[facility] on above:Order Comment: Specimen Type: BLOOD SPECIMENOrdering Facility: [facility] Address:[address] [place], [place] [address]Performed By: #### 12137-0 ####[facility] LABIA [id number] [place] [address] Hematocrit (Bld) [Volume fraction]37.4 %Tqzrwn78.0-46.0[facility] on above:Order Comment: Specimen Type: BLOOD SPECIMENOrdering Facility: [facility] Address:[address] [place], [place] [address]Performed By: #### 43574-5 ####[facility] LABIA [id number] [place], [place] [address]Kqctfwusjt (Bld) [Mass/Vol]11.9 g/nZEjuxye04.5-15.5CVeterans Health Administration on above:Order Comment: Specimen Type: BLOOD SPECIMENOrdering Facility: [facility] Address:[address] [place], [place] [address]Performed By: #### 94284-9 ####[facility] LABIA [id number] [place], [place] [address]Ydwuctqt granulocytes (Bld) [#/Vol]0.22 10*3/uLHigh<0.10 [facility] on above:Order Comment: Specimen Type: BLOOD SPECIMENOrdering Facility: [facility] Address:[address] [place], [place] [address]Performed By: #### 48931-3 ####[facility] LABIA [id number] [place], [place] [address]Gwhcofce granulocytes/100 WBC (Bld)1.9 %NormalMount Carmel Health System on above: Order Comment: Specimen Type: BLOOD SPECIMENOrdering Facility: [facility] Address:[address] [place], [place] [address]Performed By: #### 39425- 8 ####[facility] LABCLIA [id number] [place], [place] [address]Uclncpkckyh (Bld) [#/Vol]3.66 10*3/uLNormal1.00-4.00 [facility] on above:Order Comment: Specimen Type: BLOOD SPECIMENOrdering Facility: [facility] Address:[address] [place], [place] [address]Performed By: #### 47634-9 ####[facility] LABCLIA [id number] [place], [place] [address]Iyzsntpwaoq/100 WBC (Bld)31.6 %NormalMount Carmel Health System on above:Order Comment: Specimen Type: BLOOD SPECIMENOrdering Facility: [facility] Address:[address] [place], [place] [address]Performed By: #### 21352-9 ####[facility] LABCLIA [id number] [place], [place] [address]QTF (RBC) [Entitic mass]31.5 jdEfahwm75.0-34.0[facility] on above:Order Comment: Specimen Type: BLOOD SPECIMENOrdering Facility: [facility] Address:[address] [place], [place] [address]Performed By: #### 59047-9 ####[facility] LABCLIA [id number] [place], [place] [address]MNLH (RBC) [Mass/Vol]31.8 g/aJJgyfrz34.5-36.0[facility] on above: Order Comment: Specimen Type: BLOOD SPECIMENOrdering Facility: [facility] Address:[address] [place], [place] [address]Performed By: #### 59985- 8 ####[facility] LABCLIA [id number] [place], [place] [address]XDX (RBC) [Entitic vol]98.9 lZAylyvc96.0-100.0[facility] on above:Order Comment: Specimen Type: BLOOD SPECIMENOrdering Facility: [facility] Address:[address] [place], [place] [address]Performed By: #### 17600-8 ####[facility] LABCLIA [id number] [place], [place] [address]Sadjdptlk (Bld) [#/Vol]1.26 10*3/uLHigh<0.87[facility] on above:Order Comment: Specimen Type: BLOOD SPECIMENOrdering Facility: [facility] Address:[address] [place], [place] [address]Performed By: #### 64433- 8 ####[facility] LABCLIA [id number] [place], [place] [address]Avsgoljqc/100 WBC (Bld)10.9 %NormalMount Carmel Health System on above:Order Comment: Specimen Type: BLOOD SPECIMENOrdering Facility: [facility] Address:[address] [place], [place] [address]Performed By: #### 26163-8 ####[facility] LABIA [id number] [place], [place] [address]Azopqkbskbd (Bld) [#/Vol]6.32 10*3/uLNormal1.45-7.50[facility] on above:Order Comment: Specimen Type: BLOOD SPECIMENOrdering Facility: [facility] Address:[address] [place], [place] [address]Performed By: #### 98078-1 ####[facility] LABCLIA [id number] [place], [place] [address]Jijpnvzawzg/100 WBC (Bld)54.6 %NormalMount Carmel Health System on above:Order Comment: Specimen Type: BLOOD SPECIMENOrdering Facility: [facility] Address:[address] [place], [place] [address]Performed By: #### 25280-4 ####[facility] LABCLIA [id number] [place], [place] [address]Psludaysp RBC (Bld) [#/Vol] 10*3/uLNormal<0.01[facility] on above:Order Comment: Specimen Type: BLOOD SPECIMENOrdering Facility: [facility] Address:[address] [place], [place] [address]Performed By: #### 20893-3 ####[facility] LABCLIA [id number] [place], [place] [address]Muravjiwq RBC/100 WBC (Bld) [Ratio]0.0 /100 WBCNormal [facility] on above:Order Comment: Specimen Type: BLOOD SPECIMENOrdering Facility: [facility] Address:[address] [place], [place] [address]Performed By: #### 39106-2 ####[facility] LABCLIA [id number] [place], [place] [address]Vivktgah mean volume (Bld) [Entitic vol]9.3 fLNormal9.0-12.7CVeterans Health Administration on above:Order Comment: Specimen Type: BLOOD SPECIMENOrdering Facility: [facility] Address:[address] [place] [address] Performed By: #### 91026-9 ####[facility] LABCLIA [id number] [place], [place] [address]Imkykodzw (Bld) [#/Vol]326 10*3/jTDnphud930-914GfusefxjuMount Carmel Health System on above:Order Comment: Specimen Type: BLOOD SPECIMENOrdering Facility: [facility] Address:[address] [place], [place] [address]Performed By: #### 10877-5 ####[facility] LABCLIA [id number] [facility] [place], [place] [address]THI (Bld) [#/Vol]3.78 10*6/uLLow3.90-5.20[facility] on above:Order Comment: Specimen Type: BLOOD SPECIMENOrdering Facility: [facility] Address:[address] [place], [place] [address]Performed By: #### 20002-3 ####[facility] LABCLIA [id number] [place], [place] [address]EXB ([facility]) [#/Vol]11.58 10*3/uL High3.70-11.00[facility] on above:Order Comment: Specimen Type: BLOOD SPECIMENOrdering Facility: [facility] Address:[address] [place], [place] [address]Performed By: #### 82998-6 ####[facility] LABIA [id number] [place] [address] CNOVSPon 87-16-6698LVYVNXNdtwqeAkjhcwhez Clinic ClevelandCNPNon 95-56-7265XPMV NormalKeenan Private HospitalComprehensive metabolic 2000 panelon 09-05-2024 Albumin [Mass/Vol]4.2 g/dLNormal3.9-4.9CVeterans Health Administration on above:Order Comment: Specimen Type: BLOOD SPECIMENOrdering Facility: [facility] Address:[address] [place], [place] [address]Performed By: #### 34885-3 ####[facility] LABIA [id number] [place], [place] [address]OID [Catalytic activity/Vol]293 U/SOnul84-098 [facility] on above:Order Comment: Specimen Type: BLOOD SPECIMENOrdering Facility: [facility] Address:[address] [place], [place] [address]Performed By: #### 90119-3 ####[facility]OD[facility] LABCLIA [id number] AB[facility] HERRERAWINSLOW INDI[facility] HEALTHCARE CENTERELIZABETHALBION, [place] [address]HJP [Catalytic activity/Vol]17 U/LNormal7-38[facility] on above:Order Comment: Specimen Type: BLOOD SPECIMENOrdering Facility: [facility] Address:[address] [place], [place] [address]Performed By: #### 98847- 8 ####[facility] LABCLIA [id number] [facility] [place], [place] [address]Chknm gap [Moles/Vol]12 mmol/LNormal8-15[facility] on above:Order Comment: Specimen Type: BLOOD SPECIMENOrdering Facility: [facility] Address:[address] [place], [place] [address]Performed By: #### 03889-2 ####[facility] LABCLIA [id number] [facility] [place], [place] [address]BKD [Catalytic activity/Vol]12 U/RLuu49-36VwwisxzzoMount Carmel Health System on above:Order Comment: Specimen Type: BLOOD SPECIMENOrdering Facility: [facility] Address:[address] [place], [place] [address]Performed By: #### 02498-1 ####[facility] LABCLIA [id number] [facility] [place] [address] Bilirubin [Mass/Vol]0.2 mg/dLNormal0.2-1.3CVeterans Health Administration on above:Order Comment: Specimen Type: BLOOD SPECIMENOrdering Facility: [facility] Address:[address] [place], [place] [address]Performed By: #### 78076-5 ####[facility] LABCLIA [id number] [facility] [place], [place] [address]Fejtjpr [Mass/Vol]9.8 mg/dLNormal8.5-10.2[facility] ClevelandComment on above:Order Comment: Specimen Type: BLOOD SPECIMENOrdering Facility: [facility] Address:[address] [place], [place] [address]Performed By: #### 96463-2 ####[facility] LABCLIA [id number] [place], [place] [address]Bvvlpjpf [Moles/Vol]98 mmol/MQthkkn89-096OjndcyyitMount Carmel Health System on above:Order Comment: Specimen Type: BLOOD SPECIMENOrdering Facility: [facility] Address:[address] [place], [place] [address]Performed By: #### 93590- 8 ####[facility] LABCLIA [id number] [place], [place] [address]FK6 [Moles/Vol]30 mmol/IPblxja99-55GjtbufqktMount Carmel Health System on above:Order Comment: Specimen Type: BLOOD SPECIMENOrdering Facility: [facility] Address:[address] [place], [place] [address]Performed By: #### 89128-1 ####[facility] LABCLIA [id number] [place], [place] [address]Gdmzumdwak [Mass/Vol]0.80 mg/dL Normal0.58-0.96[facility] on above:Order Comment: Specimen Type: BLOOD SPECIMENOrdering Facility: [facility] Address:[address] [place], [place] [address]Performed By: #### 74653-6 ####[facility] LABCLIA [id number] [place], [place] [address]Weyuvkahmn and Glomerular filtration rate.predicted panel (S/P/Bld)84 mL/min/1.73m???Normal>=60[facility] on above:Order Comment: Specimen Type: BLOOD SPECIMENOrdering Facility: [facility] Address:[address] [place], [place] [address]Result Comment: Estimated Glomerular Filtration Rate (eGFR) is calculated using the 2020 CKD-EPI creatinine equation. This equation utilizes serum creatinine, sex, and age as parameters. The creatinine assay has traceable calibration to isotope dilution- mass spectrometry. Refer to KDIGO guidelines for clinical interpretation. In patients with unstable renal function, e.g. those with acute kidney injury, the eGFR may not accurately reflect actual GFR.Performed By: #### 67325-9 ####[facility] LABCLIA [id number] [place], [place] [address]Gewpaqq [Mass/Vol]98 mg/uIUyuuju44-32ErbugzlfwMount Carmel Health System on above:Order Comment: Specimen Type: BLOOD SPECIMENOrdering Facility: [facility] Address:[address] [place], [place] [address]Result Comment: The [place] [employer] (ADA) provides guidance for cutoff values for fasting glucose and random glucose. The ADA defines fasting as no caloric intake for at least 8 hours. Fasting plasma glucose results between 100 to 125 mg/dL indicate increased risk for diabetes (prediab etes).Fasting plasma glucose results greater than or equal to 126 mg/dL meet the criteria for diagnosis of diabetes. In the absence of unequivocal hyperglycemia, results should be confirmed by repeattesting. In a patient with classic symptoms of hyperglycemia or hyperglycemic crisis, random plasmaglucose results greater than or equal to 200 mg/dL meet the criteria for diagnosis of diabetes.Reference: Standards of Medical Care in Diabetes 2016, [place] [employer]. Diabetes Care. 2016.39(Suppl 1).Performed By: #### 17710-1 ####[facility] LABCLIA [id number] [place], [place] [address]Nhwoylrhy [Moles/Vol]3.7 mmol/LNormal3.7-5.1CVeterans Health Administration on above:Order Comment: Specimen Type: BLOOD SPECIMENOrdering Facility: [facility] Address:[address] [place], [place] [address]Ctewbclbz By: #### 83549-7 ####[facility] LABCLIA [id number] [place], [place] [address]Inpdvcc [Mass/Vol]6.8 g/dLNormal6.3-8.0[facility] ClevelandComment on above:Order Comment: Specimen Type: BLOOD SPECIMENOrdering Facility: [facility] Address:[address] [place], [place] [address]Performed By: #### 68911- 8 ####[facility] LABCLIA [id number] [place], [place] [address]Gxvcjx [Moles/Vol]140 mmol/ITsntzc581-803HmxfiqymtMount Carmel Health System on above:Order Comment: Specimen Type: BLOOD SPECIMENOrdering Facility: [facility] Address:[address] [place], [place] [address]Performed By: #### 24774-6 ####[facility] LABCLIA [id number] [place], [place] [address]Ails nitrogen [Mass/Vol]20 mg/dLNormal7-21Keenan Private HospitalComtrinity health liv[facility] on above:Order Comment: Specimen Type: BLOOD SPECIMENOrdering Facility: [facility] Address:[address] [place], [place] [address]Performed By: #### 01778-5 ####[facility] LABCLIA [id number] [place], [place] [address]Dwrnop SerPl-mCncon 37-69-8154Txuyrvpk [Mass/Vol]6.5 ug/dLNormal4.8-19.5CVeterans Health Administration on above:Order Comment: Specimen Type: BLOOD SPECIMENOrdering Facility: [facility] Address:[address] [place], [place] [address]Result Comment: Provided reference range is from 6-10 AM sample collection time.Cortisol Reference Range: 6-10 AM = 4.8-19.5 ug/dL, 4-8 PM = 2.5-11.9 ug/dLPerformed By: #### 3016-3, 2143-6 ####[facility] LABCLIA [id number] [address] OF XOHVBAEYiZ2q (Bld)on 55-49-4525Ogqhxvo glucose Estimated from glycated hemoglobin (Bld) [Mass/Vol]103 mg/dLNormal [facility] on above:Order Comment: Specimen Type: BLOOD SPECIMENOrdering Facility: [facility] Address:[address] [place], [place] [address]Result Comment: eAG: (Estimated average glucose) is a calculated value from HgbA1c and is insurance sales representative of the average blood glucose level in the last 2-3 month period.Performed By: #### 86289-4 ####[facility] LABCLIA [id number] [address] STATES OF NEFWKYBYaG2r (Bld) [Mass fraction]5.2 %Normal4.3-5.6 [facility] on above:Order Comment: Specimen Type: BLOOD SPECIMENOrdering Facility: [facility] Address:[address] [place], [place] [address]Result Comment: [place] Diabetes [employer] guidelines indicate that patients with HgbA1c in the range 5.7-6.4% are at increased risk for development of diabetes, and intervention by lifestyle modification may be beneficial. HgbA1c greater or equal to 6.5% is considered diagnostic of diabetes.Performed By: #### 34771-9 ####[facility]ITALIA [id number] [address] [place] TSH SerPl-aCncon 92-99-7859MLL Qn12.500 m[IU]/LHigh0.270-4.200[facility] on above:Order Comment: Specimen Type: BLOOD SPECIMENOrdering Facility: [facility] Address:[address] [place], [place] [address]Performed By: #### 3016-3, 2143-6 ####[facility] LABIA [id number] [place] [address] [place] Urinalysis complete panel (U)on 07-92-4315Egmjycxr LM.HPF (Urine sed) [#/Area] NegativeNegative /HPFCleveland ClinicBilirubin Ql (U)NegativeNegativeCleregency hospital cleveland west ClinicClarity (Unsp spec)ClearClearCleveland ClinicColor (U)YellowYellow [facility] HospitalEpithelial cells LM.HPF (Urine sed) [#/Area]None Seen/HPF [facility] HospitalGlucose Test strip (U) [Mass/Vol]NegativeNegativeSuburban Community Hospital & Brentwood HospitalHemoglobin Ql (U)NegativeNegativeSuburban Community Hospital & Brentwood HospitalHyaline casts (Urine sed) [#/Area]1-3 /LPFAbnormal0 /LPFCleveland ClinicInterpretation and review of laboratory resultsAbnormalCleveland ClinicKetones Ql (U)NegativeNegative [facility] HospitalLeukocyte esterase Test strip Ql (U)NegativeNegativeSuburban Community Hospital & Brentwood HospitalNitrite Ql (U)NegativeNegativeHerculaneum ClinicpH (U)6 [pH]NINF - 8.5 Herculaneum ClinicProtein (U) [Mass/Vol]NegativeNegativeSuburban Community Hospital & Brentwood HospitalRBC LM.HPF (Urine sed) [#/Area]0-2 /HPF0-2 /HPFSalem City Hospitalpecific gravity (U) [Rel density]1.0081.005 - 1.030[facility] Brent[facility] HospitalUrobilinogen Ql (U)0.2 EU/dL0.2-1.0 EU/dLSuburban Community Hospital & Brentwood HospitalWBC LM.HPF (Urine sed) [#/Area]0-5 /HPF0-5 /HPFHerculaneum ClinicThis test was developed and its performance characteristics determined by [facility]'s [facility] Pathology and Laboratory Medicine [place] ([facility] HOSPITALPLMI). It has not been cleared or approved by the FDA. [facility] is regulated under CLIA as qualified to perform high-complexity testing. Thistest is used for clinical purposes. It should not be regarded as investigational or for research. [facility] ClinicBacteria LM.HPF (Urine sed) [#/Area]Negative NormalNegativeBlanchard Valley Health System Blanchard Valley HospitalvelandComment on above:Order Comment: Specimen Type: URINE SPECIMENOrdering Facility: [facility] Address:[address] [place], [place] [address]Performed By: #### 59660-8 ####[facility] LABCLIA [id number] [address] AMERICABilirubin Ql (U)NegativeNormalNegativeKeenan Private HospitalComment on above:Order Comment: Specimen Type: URINE SPECIMENOrdering Facility: [facility] Address:[address] [place], [place] [address]Performed By: #### 18582-9 ####[facility] LABCLIA [id number] [address] [place] [address] [place] Clarity (Unsp spec)ClearNormalClearMount Carmel Health System on above: Order Comment: Specimen Type: URINE SPECIMENOrdering Facility: [facility] Address:[address] [place], [place] [address]Performed By: #### 01843- 8 ####[facility] LABCLIA [id number] [address] [address] [place] AMERICAColor (U)YellowNormalYellow [facility] on above:Order Comment: Specimen Type: URINE SPECIMENOrdering Facility: [facility] Address:[address] [place], [place] [address]Performed By: #### 51257-2 ####[facility] LABCLIA [id number] [address] [place] [address] [place] AMERICAEpithelial cells LM.HPF (Urine sed) [#/Area]None SeenNormalCVeterans Health Administration on above:Order Comment: Specimen Type: URINE SPECIMENOrdering Facility: [facility] Address:[address] [place], [place] [address]Performed By: #### 83855-6 ####[facility] LABCLIA [id number] [address] [place] [address] [place] AMERICAGlucose Test strip (U) [Mass/Vol]NegativeNormalNegativeMount Carmel Health System on above:Order Comment: Specimen Type: URINE SPECIMENOrdering Facility: [facility] Address:[address] [place], [place] [address]Performed By: #### 13396-6 ####[facility] LABCLIA [id number] [address] [address] [place] Hemoglobin Ql (U)NegativeNormalNegativeMount Carmel Health System on above:Order Comment: Specimen Type: URINE SPECIMENOrdering Facility: [facility] Address:[address] [place], [place] [address]Performed By: #### 63678-6 ####[facility] LABCLIA [id number] [address] [place] [address] [place] AMERICAHyaline casts (Urine sed) [#/Area]1-3 /LPFAbnormal0 /LPFCVeterans Health Administration on above: Order Comment: Specimen Type: URINE SPECIMENOrdering Facility: [facility] Address:[address] [place], [place] [address]Performed By: #### 23763- 8 ####[facility] LABCLIA [id number] [place] [address] [place] AMERICAKetones Ql (U)NegativeNormal NegativeMount Carmel Health System on above:Order Comment: Specimen Type: URINE SPECIMENOrdering Facility: [facility] Address:[address] [place], [place] [address]Performed By: #### 20874-8 ####[facility] LABCLIA [id number] [address] [address] [place] AMERICALeukocyte esterase Test strip Ql (U)NegativeNormal NegativeMount Carmel Health System on above:Order Comment: Specimen Type: URINE SPECIMENOrdering Facility: [facility] Address:[address] [place], [place] [address]Performed By: #### 20734-4 ####[facility] LABCLIA [id number] [address] [address] [place] AMERICANitrite Ql (U)NegativeNormalNegativeMount Carmel Health System on above:Order Comment: Specimen Type: URINE SPECIMENOrdering Facility: [facility] Address:[address] [place], [place] [address]Performed By: #### 40138-2 ####[facility] LABCLIA [id number] [place] [address] [place] pH (U)6.0 [pH]Normal<8.5CVeterans Health Administration on above:Order Comment: Specimen Type: URINE SPECIMENOrdering Facility: [facility] Address:[address] [place], [place] [address]Performed By: #### 44616- 8 ####[facility] LABIA [id number] [place] [address] [place] AMERICAProtein (U) [Mass/Vol]Negative NormalNegativeMount Carmel Health System on above:Order Comment: Specimen Type: URINE SPECIMENOrdering Facility: [facility] Address:[address] [place], [place] [address]Performed By: #### 67704-3 ####[facility] [id number] [place] [address] [place] [facility] MEDICAL CENTERRBC LM.HPF (Urine sed) [#/Area]0-2 /HPFNormal0-2 /HPF [facility] on above:Order Comment: Specimen Type: URINE SPECIMENOrdering Facility: [facility] Address:[address] [place], [place] [address]Performed By: #### 48935-1 ####[facility] [id number] [place] [address] [place] AMERICASpecific gravity (U) [Rel density]1.265Tjvmcx0.005-1.030[facility] on above:Order Comment: Specimen Type: URINE SPECIMENOrdering Facility: [facility] Address:[address] [place], [place] [address]Performed By: #### 04603-2 ####[facility] LABNORTHEASTERN [facility] [id number] [place] [address] [place] Urobilinogen Ql (U)0.2 EU/dLNormal0.2-1.0 EU/dLMount Carmel Health System on above:Order Comment: Specimen Type: URINE SPECIMENOrdering Facility: [facility] Address:[address] [place] [address] Performed By: #### 58510-5 ####[facility] HOSPITALIA [id number] [place] [address] [place] WBC LM.HPF (Urine sed) [#/Area]0-5 /HPFNormal0-5 /HPFKeenan Private Hospital Comment on above:Order Comment: Specimen Type: URINE SPECIMENOrdering Facility: [facility] Address:[address] [place] [address] Performed By: #### 86432-6 ####[facility] [id number] [place] [address] [place] GLUCOSE, BLOOD (POC)on 74-79-5236Fclgfjs [Mass/Vol]144 mg/sZMixviiaf74 - 99 mg/dLSelect Medical [facility] on above:Location:[facility], [address] [place] [address] , [place], [place], [facility] The Accu-Chek Inform II glucose meter has [...] above situations. Interpretation and review of laboratory resultsAbnormalCOhio Valley Surgical HospitalNM PET/CT SKULL-THIGH SUBQon 30-93-8381NN PET/CT SKULL-THIGH SUBQNormal [facility] W Auto Differential panel (Bld)on 08-09-2024 Basophils (Bld) [#/Vol]0.03 10*3/uLNormal<0.11CVeterans Health Administration on above:Order Comment: Specimen Type: BLOOD SPECIMENOrdering Facility: [facility] Address:[address] [place] [address] Performed By: #### 65525-2 ####[facility] LABCLIA [id number] [place], [place] [address]Txyoorghp/100 WBC (Bld)0.2 % NormalMount Carmel Health System on above:Order Comment: Specimen Type: BLOOD SPECIMENOrdering Facility: [facility] Address:[address] [place], [place] [address]Performed By: #### 91324-5 ####[facility] LABCLIA [id number] [place] [address] Differential cell count method Nom (Bld)AutoNormalCACMC Healthcare System Glen[facility] Comment on above:Order Comment: Specimen Type: BLOOD SPECIMENOrdering Facility: [facility] Address:[address] [place] [address] Performed By: #### 69131-8 ####[facility] LABCLIA [id number] [place], [place] [address]Sucmiwanjxd (Bld) [#/Vol] 10*3/uLNormal<0.46[facility] on above:Order Comment: Specimen Type: BLOOD SPECIMENOrdering Facility: [facility] Address:[address] [place], [place] [address]Performed By: #### 96700-9 ####[facility] LABCLIA [id number] [place], [place] [address]Fkznvvxewbg/100 WBC (Bld)0.1 %NormalMount Carmel Health System on above:Order Comment: Specimen Type: BLOOD SPECIMENOrdering Facility: [facility] Address:[address] [place], [place] [address]Performed By: #### 35335-1 ####[facility] LABIA [id number] [place], [place] [address]Mmbulnffrxk distribution width (RBC) [Ratio]15.5 %High11.5-15.0[facility] on above:Order Comment: Specimen Type: BLOOD SPECIMENOrdering Facility: [facility] Address:[address] [place], [place] [address]Performed By: #### 49174- 8 ####[facility] LABCLIA [id number] [place], [place] [address]Ygdxtimuxu (Bld) [Volume fraction]33.9 %Low36.0-46.0 [facility] on above:Order Comment: Specimen Type: BLOOD SPECIMENOrdering Facility: [facility] Address:[address] [place], [place] [address]Performed By: #### 25870-5 ####[facility] LABIA [id number] [place], [place] [address]Vqwdruvakh (Bld) [Mass/Vol]10.7 g/dLLow11.5-15.5CVeterans Health Administration on above:Order Comment: Specimen Type: BLOOD SPECIMENOrdering Facility: [facility] Address:[address] [place], [place] [address]Performed By: #### 38718- 8 ####[facility] LABCLIA [id number] [place], [place] [address]Olkvlddj granulocytes (Bld) [#/Vol]0.24 10*3/uLHigh<0.10 [facility] on above:Order Comment: Specimen Type: BLOOD SPECIMENOrdering Facility: [facility] Address:[address] [place], [place] [address]Performed By: #### 11978-0 ####[facility] LABIA [id number] [place], [place] [address]Prdpnizi granulocytes/100 WBC (Bld)1.6 %NormalMount Carmel Health System on above: Order Comment: Specimen Type: BLOOD SPECIMENOrdering Facility: [facility] Address:[address] [place], [place] [address]Performed By: #### 82663- 8 ####[facility] LABCLIA [id number] [place], [place] [address]Tspyfquesze (Bld) [#/Vol]1.08 10*3/uLNormal1.00-4.00 [facility] on above:Order Comment: Specimen Type: BLOOD SPECIMENOrdering Facility: [facility] Address:[address] [place], [place] [address]Performed By: #### 29720-6 ####[facility] LABCLIA [id number] [place], [place] [address]Fonzkmxairz/100 WBC (Bld)7.0 %NormalMount Carmel Health System on above:Order Comment: Specimen Type: BLOOD SPECIMENOrdering Facility: [facility] Address:[address] [place], [place] [address]Performed By: #### 63726-1 ####[facility] LABCLIA [id number] [place], [place] [address]RXA (RBC) [Entitic mass]31.5 jkGbxvbh60.0-34.0[facility] on above:Order Comment: Specimen Type: BLOOD SPECIMENOrdering Facility: [facility] Address:[address] [place], [place] [address]Performed By: #### 62017-4 ####[facility] LABCLIA [id number] [place], [place] [address]JQZG (RBC) [Mass/Vol]31.6 g/pBJqpynd57.5-36.0[facility] on above: Order Comment: Specimen Type: BLOOD SPECIMENOrdering Facility: [facility] Address:[address] [place], [place] [address]Performed By: #### 22649- 8 ####[facility] LABCLIA [id number] [place], [place] [address]YOJ (RBC) [Entitic vol]99.7 xZCofoat88.0-100.0[facility] on above:Order Comment: Specimen Type: BLOOD SPECIMENOrdering Facility: [facility] Address:[address] [place], [place] [address]Performed By: #### 88972-7 ####[facility] LABCLIA [id number] [place], [place] [address]Okgwxvkff (Bld) [#/Vol]0.58 10*3/uLNormal<0.87[facility] on above:Order Comment: Specimen Type: BLOOD SPECIMENOrdering Facility: [facility] Address:[address] [place], [place] [address]Performed By: #### 60252- 8 ####[facility] LABCLIA [id number] [place], [place] [address]Kpxfdlxtw/100 WBC (Bld)3.8 %NormalMount Carmel Health System on above:Order Comment: Specimen Type: BLOOD SPECIMENOrdering Facility: [facility] Address:[address] [place], [place] [address]Performed By: #### 74312-3 ####[facility] LABCLIA [id number] [place], [place] [address]Codkhfumzjx (Bld) [#/Vol]13.44 10*3/uLHigh1.45-7.50[facility] on above:Order Comment: Specimen Type: BLOOD SPECIMENOrdering Facility: [facility] Address:[address] [place], [place] [address]Performed By: #### 06586-1 ####[facility] LABCLIA [id number] [place], [place] [address]Uobaryjwdor/100 WBC (Bld)87.3 %NormalMount Carmel Health System on above:Order Comment: Specimen Type: BLOOD SPECIMENOrdering Facility: [facility] Address:[address] [place], [place] [address]Performed By: #### 32184-2 ####[facility] LABCLIA [id number] [place], [place] [address]Nddifjmve RBC (Bld) [#/Vol] 10*3/uLNormal<0.01[facility] on above:Order Comment: Specimen Type: BLOOD SPECIMENOrdering Facility: [facility] Address:[address] [place], [place] [address]Performed By: #### 16210-0 ####[facility] LABCLIA [id number] [place], [place] [address]Ptnbxmgft RBC/100 WBC (Bld) [Ratio]0.0 /100 WBCNormal [facility] on above:Order Comment: Specimen Type: BLOOD SPECIMENOrdering Facility: [facility] Address:[address] [place], [place] [address]Performed By: #### 88272-0 ####[facility] LABIA [id number] [place], [place] [address]Yskgikdi mean volume (Bld) [Entitic vol]9.6 fLNormal9.0-12.7CVeterans Health Administration on above:Order Comment: Specimen Type: BLOOD SPECIMENOrdering Facility: [facility] Address:[address] [place] [address] Performed By: #### 95924-3 ####[facility] LABIA [id number] [place], [place] [address]Ytbdzbfvm (Bld) [#/Vol]232 10*3/bKCaztkp022-022XsmbsxylyMount Carmel Health System on above:Order Comment: Specimen Type: BLOOD SPECIMENOrdering Facility: [facility] Address:[address] [place], [place] [address]Performed By: #### 34324-8 ####[facility] LABCLIA [id number] [place], [place] [address]JXX (Bld) [#/Vol]3.40 10*6/uLLow3.90-5.20[facility] on above:Order Comment: Specimen Type: BLOOD SPECIMENOrdering Facility: [facility] Address:[address] [place], [place] [address]Performed By: #### 57082-7 ####[facility] LABIA [id number] [place], [place] [address]LHO (Bld) [#/Vol]15.39 10*3/uL High3.70-11.00[facility] on above:Order Comment: Specimen Type: BLOOD SPECIMENOrdering Facility: [facility] Address:[address] [place], [place] [address]Performed By: #### 31529-8 ####[facility] LABIA [id number] [place] [address] CNOVSPon 16-18-1164CSVTCRUbocbjEmivnekje Clinic ClevelandComprehensive metabolic 2000 panelon 99-94-0261Npaitpm [Mass/Vol]4.1 g/dLNormal3.9-4.9CVeterans Health Administration on above:Order Comment: Specimen Type: BLOOD SPECIMENOrdering Facility: [facility] Address:[address] [place], [place] [address]Performed By: #### 51477-1 ####[facility] LABIA [id number] [place], [place] [address]JGG [Catalytic activity/Vol]413 U/BPqhi18-376ZatrpimryMount Carmel Health System on above:Order Comment: Specimen Type: BLOOD SPECIMENOrdering Facility: [facility] Address:[address] [place], [place] [address]Performed By: #### 63870-0 ####[facility] LABIA [id number] [place] [address] ALT [Catalytic activity/Vol]43 U/LHigh7-38[facility] on above:Order Comment: Specimen Type: BLOOD SPECIMENOrdering Facility: [facility] Address:[address] [place], [place] [address]Performed By: #### 51858-4 ####[facility] LABCLIA [id number] JEANNETTE TARA TURCIOSWINSLOW INDI[facility] [place] [address]Jrahu gap [Moles/Vol]9 mmol/LNormal8-15[facility] on above:Order Comment: Specimen Type: BLOOD SPECIMENOrdering Facility: [facility] Address:[address] [place], [place] [address]Performed By: #### 96415-4 ####[facility] LABCLIA [id number] [place], [place] [address]WUE [Catalytic activity/Vol]58 U/MUbpl70-14UyzrliueoMount Carmel Health System on above:Order Comment: Specimen Type: BLOOD SPECIMENOrdering Facility: [facility] Address:[address] [place], [place] [address]Performed By: #### 29249-0 ####[facility] LABCLIA [id number] [place] [address] Bilirubin [Mass/Vol]0.3 mg/dLNormal0.2-1.3CVeterans Health Administration on above:Order Comment: Specimen Type: BLOOD SPECIMENOrdering Facility: [facility] Address:[address] [place], [place] [address]Performed By: #### 24812-5 ####[facility] LABCLIA [id number] [address] [facility]ENT MEDICAL CENTERJUDAHFOUNTAIN, [place] [address]Siyswaj [Mass/Vol]9.4 mg/dLNormal8.5-10.2CVeterans Health Administration on above:Order Comment: Specimen Type: BLOOD SPECIMENOrdering Facility: [facility] Address:[address] [place], [place] [address]Performed By: #### 87358-8 ####[facility] LABCLIA [id number] [facility]THON[facility] HOSPITALJ[place]DA[place], [place] [address]Mgxosstz [Moles/Vol]97 mmol/THde35-133PvevlqvkyMount Carmel Health System on above:Order Comment: Specimen Type: BLOOD SPECIMENOrdering Facility: [facility] Address:[address] [place], [place] [address]Performed By: #### [id number]- 8 ####[facility] LABCLIA [id number] [place], [place] [address]CM6 [Moles/Vol]27 mmol/KIryalu41-74UqzezcbdlMount Carmel Health System on above:Order Comment: Specimen Type: BLOOD SPECIMENOrdering Facility: [facility] Address:[address] [place], [place] [address]Performed By: #### 68599-5 ####[facility] LABIA [id number] [place], [place] [address]Ldudhylhow [Mass/Vol]0.77 mg/dL Normal0.58-0.96[facility] on above:Order Comment: Specimen Type: BLOOD SPECIMENOrdering Facility: [facility] Address:[address] [place], [place] [address]Performed By: #### 73423-0 ####[facility] LABIA [id number] [place], [place] [address]Nkujzikavj and Glomerular filtration rate.predicted panel (S/P/Bld)88 mL/min/1.73m???Normal>=60[facility] on above:Order Comment: Specimen Type: BLOOD SPECIMENOrdering Facility: [facility] Address:[address] [place], [place] [address]Result Comment: Estimated Glomerular Filtration Rate (eGFR) is calculated using the 2020 CKD-EPI creatinine equation. This equation utilizes serum creatinine, sex, and age as parameters. The creatinine assay has traceable calibration to isotope dilution- mass spectrometry. Refer to KDIGO guidelines for clinical interpretation. In patients with unstable renal function, e.g. those with acute kidney injury, the eGFR may not accurately reflect actual GFR.Performed By: #### 26630-3 ####[facility] LABCLIA [id number] [place], [place] [address]Uvjmvbl [Mass/Vol]121 mg/dOLviz22-05FeggzsqshMount Carmel Health [facility] on above:Order Comment: Specimen Type: BLOOD SPECIMENOrdering Facility: [facility] Address:[address] [place], [place] [address]Result Comment: The [place] Diabetes Association (ADA) provides guidance for cutoff values for fasting glucose and random glucose. The ADA defines fasting as no caloric intake for at least 8 hours. Fasting plasma glucose results between 100 to 125 mg/dL indicate increased risk for diabetes (prediab etes).Fasting plasma glucose results greater than or equal to 126 mg/dL meet the criteria for diagnosis of diabetes. In the absence of unequivocal hyperglycemia, results should be confirmed by repeattesting. In a patient with classic symptoms of hyperglycemia or hyperglycemic crisis, random plasmaglucose results greater than or equal to 200 mg/dL meet the criteria for diagnosis of diabetes.Reference: Standards of Medical Care in Diabetes 2016, [place] Diabetes Association. Diabetes Care. 2016.39(Suppl 1).Performed By: #### 51887-6 ####[facility] LABCLIA [id number] [place], [place] [address]Knywhbkep [Moles/Vol]5.0 mmol/LNormal3.7-5.1CVeterans Health Administration on above:Order Comment: Specimen Type: BLOOD SPECIMENOrdering Facility: [facility] Address:[address] [place] [address]Rmvejtnir By: #### 22576-4 ####[facility] LABCLIA [id number] [place], [place] [address]Ibejfjh [Mass/Vol]6.6 g/dLNormal6.3-8.0[facility] on above:Order Comment: Specimen Type: BLOOD SPECIMENOrdering Facility: [facility] Address:[address] [place], [place] [address]Performed By: #### 21327- 8 ####[facility] LABCLIA [id number] [place], [place] [address]Pwcbqg [Moles/Vol]133 mmol/NDpq050-444Prxnjojcq Clinic ClevelandComment on above:Order Comment: Specimen Type: BLOOD SPECIMENOrdering Facility: [facility] Address:[address] [place], [place] [address]Performed By: #### 19534-9 ####[facility] LABCLIA [id number] [place], [place] [address]Vpxz nitrogen [Mass/Vol]19 mg/dLNormal7-21[facility] on above:Order Comment: Specimen Type: BLOOD SPECIMENOrdering Facility: [facility] Address:[address] [place], [place] [address]Performed By: #### 05335-8 ####[facility] LABIA [id number] [place], [place] [address]DGO W Auto Differential panel (Bld)on 85-17-4879Leegllwyx (Bld) [#/Vol]0.05 10*3/uLNormal<0.11CVeterans Health Administration on above: Order Comment: Specimen Type: BLOOD SPECIMENOrdering Facility: [facility] Address:[address] [place], [place] [address]Performed By: #### 98894- 8 ####[facility] LABIA [id number] [place], [place] [address]Fulfxiudf/100 WBC (Bld)0.6 %NormalMount Carmel Health System on above:Order Comment: Specimen Type: BLOOD SPECIMENOrdering Facility: [facility] Address:[address] [place], [place] [address]Performed By: #### 72717-2 ####[facility] LABIA [id number] [place], [place] [address]Tsjkfbkopzse cell count method Nom (Bld)AutoNormalClevelMercy Health St. [facility] on above:Order Comment: Specimen Type: BLOOD SPECIMENOrdering Facility: [facility] Address:[address] [place], [place] [address]Performed By: #### 51284-2 ####[facility] LABCLIA [id number] [place], [place] [address]Fqnnzbjjuok (Bld) [#/Vol]0.28 10*3/uLNormal<0.46[facility] on above:Order Comment: Specimen Type: BLOOD SPECIMENOrdering Facility: [facility] Address:[address] [place], [place] [address]Performed By: #### 99287-4 ####[facility] LABCLIA [id number] [place], [place] [address]Tkzegclczos/100 WBC (Bld)3.3 %NormalMount Carmel Health System on above:Order Comment: Specimen Type: BLOOD SPECIMENOrdering Facility: [facility] Address:[address] [place], [place] [address]Performed By: #### 63835-5 ####[facility] LABIA [id number] [place], [place] [address]Pfwwhubtsgb distribution width (RBC) [Ratio]16.4 %High 11.5-15.0[facility] on above:Order Comment: Specimen Type: BLOOD SPECIMENOrdering Facility: [facility] Address:[address] [place], [place] [address]Performed By: #### 60196-3 ####[facility] LABIA [id number] [place] [address] Hematocrit (Bld) [Volume fraction]33.1 %Low36.0-46.0[facility] Comment on above:Order Comment: Specimen Type: BLOOD SPECIMENOrdering Facility: [facility] Address:[address] [place] [address] Performed By: #### 87590-6 ####[facility] LABIA [id number] [place], [place] [address]Gagmpetldo (Bld) [Mass/Vol]10.5 g/dLLow11.5-15.5CVeterans Health Administration on above:Order Comment: Specimen Type: BLOOD SPECIMENOrdering Facility: [facility] Address:[address] [place], [place] [address]Performed By: #### 33568-4 ####[facility] LABCLIA [id number] [place], [place] [address]Uujptkvr granulocytes (Bld) [#/Vol]0.09 10*3/uLNormal <0.10[facility] on above:Order Comment: Specimen Type: BLOOD SPECIMENOrdering Facility: [facility] Address:[address] [place], [place] [address]Performed By: #### 46590-9 ####[facility] LABCLIA [id number] [place], [place] [address]Gdbtbyeq granulocytes/100 WBC (Bld)1.0 %NormalMount Carmel Health System on above: Order Comment: Specimen Type: BLOOD SPECIMENOrdering Facility: [facility] Address:[address] [place], [place] [address]Performed By: #### 81381- 8 ####[facility] LABCLIA [id number] [place], [place] [address]Rajlksetizx (Bld) [#/Vol]1.40 10*3/uLNormal1.00-4.00 [facility] on above:Order Comment: Specimen Type: BLOOD SPECIMENOrdering Facility: [facility] Address:[address] [place], [place] [address]Performed By: #### 95912-4 ####[facility] LABCLIA [id number] [place], [place] [address]Lhkvvgdwldp/100 WBC (Bld)16.3 %NormalMount Carmel Health System on above:Order Comment: Specimen Type: BLOOD SPECIMENOrdering Facility: [facility] Address:[address] [place], [place] [address]Performed By: #### 82955-6 ####[facility] LABCLIA [id number] [place], [place] [address]QMP (RBC) [Entitic mass]31.7 quAbvcgm07.0-34.0[facility] on above:Order Comment: Specimen Type: BLOOD SPECIMENOrdering Facility: [facility] Address:[address] [place], [place] [address]Performed By: #### 09480-8 ####[facility] LABCLIA [id number] [place], [place] [address]KDTV (RBC) [Mass/Vol]31.7 g/mPHhtalw89.5-36.0[facility] on above: Order Comment: Specimen Type: BLOOD SPECIMENOrdering Facility: [facility] Address:[address] [place], [place] [address]Performed By: #### 97449- 8 ####[facility] LABCLIA [id number] [place], [place] [address]ELH (RBC) [Entitic vol]100.0 yVVqzeiz42.0-100.0[facility] on above:Order Comment: Specimen Type: BLOOD SPECIMENOrdering Facility: [facility] Address:[address] [place], [place] [address]Performed By: #### 63266-9 ####[facility] LABCLIA [id number] [place], [place] [address]Hvxofkfou (Bld) [#/Vol]0.71 10*3/uLNormal<0.87[facility] on above:Order Comment: Specimen Type: BLOOD SPECIMENOrdering Facility: [facility] Address:[address] [place], [place] [address]Performed By: #### 77986- 8 ####[facility] LABIA [id number] [place], [place] [address]Ouvothymt/100 WBC (Bld)8.3 %NormalMount Carmel Health System on above:Order Comment: Specimen Type: BLOOD SPECIMENOrdering Facility: [facility] Address:[address] [place], [place] [address]Performed By: #### 98147-9 ####[facility] LABCLIA [id number] [place], [place] [address]Pxmcwrhtnim (Bld) [#/Vol]6.06 10*3/uLNormal1.45-7.50[facility] on above:Order Comment: Specimen Type: BLOOD SPECIMENOrdering Facility: [facility] Address:[address] [place], [place] [address]Performed By: #### 02094-6 ####[facility] LABCLIA [id number] [place], [place] [address]Mtexxwsluyp/100 WBC (Bld)70.5 %NormalMount Carmel Health System on above:Order Comment: Specimen Type: BLOOD SPECIMENOrdering Facility: [facility] Address:[address] [place], [place] [address]Performed By: #### 23937-1 ####[facility] LABCLIA [id number] [place], [place] [address]Lcgmzvoha RBC (Bld) [#/Vol] 10*3/uLNormal<0.01[facility] on above:Order Comment: Specimen Type: BLOOD SPECIMENOrdering Facility: [facility] Address:[address] [place], [place] [address]Performed By: #### 98023-2 ####[facility] LABCLIA [id number] [place], [place] [address]Lekekiwnt RBC/100 WBC (Bld) [Ratio]0.0 /100 WBCNormal [facility] on above:Order Comment: Specimen Type: BLOOD SPECIMENOrdering Facility: [facility] Address:[address] [place], [place] [address]Performed By: #### 61873-1 ####[facility] LABCLIA [id number] [place], [place] [address]Dntmsaim mean volume (Bld) [Entitic vol]10.1 fLNormal9.0-12.7CVeterans Health Administration on above:Order Comment: Specimen Type: BLOOD SPECIMENOrdering Facility: [facility] Address:[address] [place] [address] Performed By: #### 56812-8 ####[facility] LABCLIA [id number] [place], [place] [address]Hgtvnahgx (Bld) [#/Vol]207 10*3/zQMaaixl269-384XjonzyiusMount Carmel Health System on above:Order Comment: Specimen Type: BLOOD SPECIMENOrdering Facility: [facility] Address:[address] [place], [place] [address]Performed By: #### 79927-5 ####[facility] LABCLIA [id number] [place], [place] [address]YXS (Bld) [#/Vol]3.31 10*6/uLLow3.90-5.20[facility] on above:Order Comment: Specimen Type: BLOOD SPECIMENOrdering Facility: [facility] Address:[address] [place], [place] [address]Performed By: #### 61574-6 ####[facility] LABCLIA [id number] [place], [place] [address]KGL (Bld) [#/Vol]8.59 10*3/uL Normal3.70-11.00[facility] on above:Order Comment: Specimen Type: BLOOD SPECIMENOrdering Facility: [facility] Address:[address] [place], [place] [address]Performed By: #### 61039-5 ####[facility] LABCLIA [id number] [place], [place] [address]SHCRKYbu 42-89-2018LYUIAAPpezjhFjjtzwbzs [facility] CNPNon 65-57-2523JWVNHktkolVksmmllxa Clinic ClevelandComprehenve metabolic 2000 panelon 20-87-1533Wtcdqvp [Mass/Vol]3.4 g/dLLow3.9-4.9CVeterans Health Administration on above:Order Comment: Specimen Type: BLOOD SPECIMENOrdering Facility: [facility] Address:[address] [place], [place] [address]Performed By: #### 12875-1 ####[facility] LABCLIA [id number] [place], [place] [address]TQP [Catalytic activity/Vol] 1338 U/PDzfd54-269XxcoysdiaMount Carmel Health System on above:Order Comment: Specimen Type: BLOOD SPECIMENOrdering Facility: [facility] Address:[address] [place], [place] [address]Performed By: #### 85711-5 ####[facility] LABCLIA [id number] [place], [place] [address]FZZ [Catalytic activity/Vol]151 U/LHigh7-38[facility] on above:Order Comment: Specimen Type: BLOOD SPECIMENOrdering Facility: [facility] Address:[address] [place], [place] [address]Performed By: #### 08627-4 ####[facility] LABCLIA [id number] [place], [place] [address]Nxmzs gap [Moles/Vol]9 mmol/LNormal8-15[facility] on above:Order Comment: Specimen Type: BLOOD SPECIMENOrdering Facility: [facility] Address:[address] [place], [place] [address]Performed By: #### 27144- 8 ####[facility] LABIA [id number] [place], [place] [address]YAA [Catalytic activity/Vol]255 U/BIrqs80-25DvozpbrgrMount Carmel Health System on above:Order Comment: Specimen Type: BLOOD SPECIMENOrdering Facility: [facility] Address:[address] [place], [place] [address]Performed By: #### 00821-9 ####[facility] LABCLIA [id number] [place] [address]Wievegtlg [Mass/Vol]0.3 mg/dLNormal0.2-1.3CVeterans Health Administration on above:Order Comment: Specimen Type: BLOOD SPECIMENOrdering Facility: [facility] Address:[address] [place], [place] [address]Performed By: #### 69775- 8 ####[facility] LABCLIA [id number] [facility] [place], [place] [address]Betdldv [Mass/Vol]9.1 mg/dLNormal8.5-10.2CVeterans Health Administration on above:Order Comment: Specimen Type: BLOOD SPECIMENOrdering Facility: [facility] Address:[address] [place], [place] [address]Performed By: #### 55999-2 ####[facility] LABCLIA [id number] [place], [place] [address]Xqjprctr [Moles/Vol]101 mmol/L Fijasc35-188DioctpnhaMount Carmel Health System on above:Order Comment: Specimen Type: BLOOD SPECIMENOrdering Facility: [facility] Address:[address] [place], [place] [address]Performed By: #### 49707-1 ####[facility] LABCLIA [id number] [address] [place] [address] CO2 [Moles/Vol]25 mmol/YVimqfa75-22DkmsgdhtyMount Carmel Health System on above: Order Comment: Specimen Type: BLOOD SPECIMENOrdering Facility: [facility] Address:[address] [place], [place] [address]Performed By: #### 14035- 8 ####[facility] LABCLIA [id number] [facility] [place], [place] [address]Heradtmqym [Mass/Vol]0.57 mg/dLLow0.58-0.96[facility] on above:Order Comment: Specimen Type: BLOOD SPECIMENOrdering Facility: [facility] Address:[address] [place] [address]Hwkmztgtl By: #### 53295-0 ####[facility] LABCLIA [id number] [place], [place] [address]Kwgiohzfig and Glomerular filtration rate.predicted panel (S/P/Bld)104 mL/min/1.73m???Normal >=60[facility] on above:Order Comment: Specimen Type: BLOOD SPECIMENOrdering Facility: [facility] Address:[address] [place] [address]Kzpkzh Comment: Estimated Glomerular Filtration Rate (eGFR) is calculated using the 2020 CKD-EPI creatinine equation. This equation utilizes serum creatinine, sex, and age as parameters. The creatinine assay has traceable calibration to isotope dilution-mass spectrometry. Refer to KDIGO guidelines for clinical interpretation. In patients with unstable renal function, e.g. those with acute kidney injury, the eGFR may not accurately reflect actual GFR.Performed By: #### 10394-7 ####[facility] LABCLIA [id number] [place], [place] [address]Pbwwniz [Mass/Vol]117 mg/tPWofi05-95XoamgclzgMount Carmel Health System on above:Order Comment: Specimen Type: BLOOD SPECIMENOrdering Facility: [facility] Address:[address] [place] [address]Fuljoj Comment: The [place] Diabetes Association (ADA) provides guidance for cutoff values for fast ing glucose and random glucose. The ADA defines fasting as no caloric intake for at least 8 hours. Fasting plasma glucose results between 100 to 125 mg/dL indicate increased risk for diabetes (prediabetes).Fasting plasma glucose results greater than or equal to 126 mg/dL meet the criteria for diagnosis of diabetes. In the absence of unequivocal hyperglycemia, results should be confirmed by repeattesting. In a patient with classic symptoms of hyperglycemia or hyperglycemic crisis, random plasmaglucose results greater than or equal to 200 mg/dL meet the criteria for diagnosis of diabetes.Reference: Standards of Medical Care in Diabetes 2016, [place] Diabetes Association. Diabetes Care. 2016.39(Suppl 1).Performed By: #### 58548-3 ####[facility] LABCLIA [id number] [place], [place] [address]Wlxlnzhdp [Moles/Vol]4.1 mmol/LNormal3.7-5.1CVeterans Health Administration on above: Order Comment: Specimen Type: BLOOD SPECIMENOrdering Facility: [facility] Address:[address] [place], [place] [address]Performed By: #### 02340- 8 ####[facility] LABCLIA [id number] [place], [place] [address]Fbhtswo [Mass/Vol]6.1 g/dLLow6.3-8.0[facility] on above:Order Comment: Specimen Type: BLOOD SPECIMENOrdering Facility: [facility] Address:[address] [place], [place] [address]Performed By: #### 77154-8 ####[facility] LABCLIA [id number] [place], [place] [address]Hlvbuk [Moles/Vol]135 mmol/LLow 136-144[facility] on above:Order Comment: Specimen Type: BLOOD SPECIMENOrdering Facility: [facility] Address:[address] [place], [place] [address]Performed By: #### 60102-7 ####[facility] LABCLIA [id number] [place], [place] [address]Dwiu nitrogen [Mass/Vol]14 mg/dLNormal7-21[facility] on above: Order Comment: Specimen Type: BLOOD SPECIMENOrdering Facility: [facility] Address:[address] [place], [place] [address]Performed By: #### 40703- 8 ####[facility] LABCLIA [id number] [place], [place] [address]Oxtlyr SerPl-mCncon 27-51-4568Bnkxvgeg [Mass/Vol]10.1 ug/dLNormal4.8-19.5CVeterans Health Administration on above:Order Comment: Specimen Type: BLOOD SPECIMENOrdering Facility: [facility] Address:[address] [place], [place] [address]Result Comment: Provided reference range is from 6-10 AM sample collection time.Cortisol Reference Range: 6-10 AM = 4.8-19.5 ug/dL, 4-8 PM = 2.5-11.9 ug/dLPerformed By: #### 2143-6, 3016-3 ####[facility] LABCLIA [id number] [place] [address] [place] DVZMDZTNjE1v (Bld)on 13-77-3607Hdcggmn glucose Estimated from glycated hemoglobin (Bld) [Mass/Vol]94 mg/dLNormal [facility] on above:Order Comment: Specimen Type: BLOOD SPECIMENOrdering Facility: [facility] Address:[address] [place], [place] [address]Result Comment: eAG: (Estimated average glucose) is a calculated value from HgbA1c and is insurance sales representative of the average blood glucose level in the last 2-3 month period.Performed By: #### 11587-1 ####[facility] [id number] [place] [address] [place] HEALTH SYSTEMEYAXXODCwG2z (Bld) [Mass fraction]4.9 %Normal4.3-5.6 [facility] on above:Order Comment: Specimen Type: BLOOD SPECIMENOrdering Facility: [facility] Address:[address] [place], [place] [address]Result Comment: [place] Diabetes Association guidelines indicate that patients with HgbA1c in the range 5.7-6.4% are at increased risk for development of diabetes, and intervention by lifestyle modification may be beneficial. HgbA1c greater or equal to 6.5% is considered diagnostic of diabetes.Performed By: #### 85151-5 ####[facility] LABCLIA [id number] [address] [address] [place] TSH SerPl-aCncon 56-76-5460DBW Qn9.620 m[IU]/LHigh0.270-4.200[facility] on above:Order Comment: Specimen Type: BLOOD SPECIMENOrdering Facility: [facility] Address:[address] [place], [place] [address]Performed By: #### 2143-6, 3016-3 ####[facility] LABCLIA [id number] [address] OF [facility] CNPNon 26-87-8018WDFPByukzpNtplkxnqr Clinic ClevelandCBC W Auto Differential panel (Bld)on 30-86-8879Llypaoopw (Bld) [#/Vol]0.03 10*3/uLNormal<0.11CVeterans Health Administration on above:Order Comment: Specimen Type: BLOOD SPECIMENOrdering Facility: [facility] Address:[address] [place], [place] [address]Performed By: #### 32408-7 ####[facility] LABCLIA [id number] [place], [place] [address]Mkahcvahx/100 WBC (Bld)0.2 %NormalMount Carmel Health System on above:Order Comment: Specimen Type: BLOOD SPECIMENOrdering Facility: [facility] Address:[address] [place], [place] [address]Performed By: #### 11425-0 ####[facility] LABCLIA [id number] [place], [place] [address]Nqofhcsperqn cell count method Nom (Bld)AutoNormal [facility] on above:Order Comment: Specimen Type: BLOOD SPECIMENOrdering Facility: [facility] Address:[address] [place], [place] [address]Performed By: #### 96075-7 ####[facility] LABCLIA [id number] [place], [place] [address]Vtbbbltzqsz (Bld) [#/Vol]10*3/uLNormal<0.46[facility] ClevelandComment on above:Order Comment: Specimen Type: BLOOD SPECIMENOrdering Facility: [facility] Address:[address] [place], [place] [address]Performed By: #### 10944- 8 ####[facility] LABCLIA [id number] [place], [place] [address]Axvllfaozte/100 WBC (Bld)0.2 %NormalMount Carmel Health System on above:Order Comment: Specimen Type: BLOOD SPECIMENOrdering Facility: [facility] Address:[address] [place], [place] [address]Performed By: #### 37027-1 ####[facility] LABIA [id number] [place], [place] [address]Zaxdzxzzazz distribution width (RBC) [Ratio]15.3 %High11.5-15.0[facility] on above:Order Comment: Specimen Type: BLOOD SPECIMENOrdering Facility: [facility] Address:[address] [place], [place] [address]Performed By: #### 05409- 8 ####[facility] LABIA [id number] [place], [place] [address]Pkcywqefxp (Bld) [Volume fraction]31.7 %Low36.0-46.0 [facility] on above:Order Comment: Specimen Type: BLOOD SPECIMENOrdering Facility: [facility] Address:[address] [place], [place] [address]Performed By: #### 03280-7 ####[facility] LABIA [id number] [place], [place] [address]Rhyrjkidkm (Bld) [Mass/Vol]9.9 g/dLLow11.5-15.5CVeter[facility] on above:Order Comment: Specimen Type: BLOOD SPECIMENOrdering Facility: [facility] Address:[address] [place], [place] [address]Performed By: #### [id number]- 8 ####[facility] LABCLIA [id number] [place], [place] [address]Chiybhfx granulocytes (Bld) [#/Vol]0.21 10*3/uLHigh<0.10 [facility] on above:Order Comment: Specimen Type: BLOOD SPECIMENOrdering Facility: [facility] Address:[address] [place], [place] [address]Performed By: #### 10676-5 ####[facility] LABCLIA [id number] [place], [place] [address]Mljvqjmd granulocytes/100 WBC (Bld)1.7 %NormalMount Carmel Health System on above: Order Comment: Specimen Type: BLOOD SPECIMENOrdering Facility: [facility] Address:[address] [place], [place] [address]Performed By: #### [id number]- 8 ####[facility] LABCLIA [id number] [place], [place] [address]Grqbsnqjzfd (Bld) [#/Vol]1.25 10*3/uLNormal1.00-4.00 [facility] on above:Order Comment: Specimen Type: BLOOD SPECIMENOrdering Facility: [facility] Address:[address] [place], [place] [address]Performed By: #### 75885-3 ####[facility] LABCLIA [id number] [place], [place] [address]Ggaxgtuyyjw/100 WBC (Bld)10.0 %NormalMount Carmel Health System on above:Order Comment: Specimen Type: BLOOD SPECIMENOrdering Facility: [facility] Address:[address] [place], [place] [address]Performed By: #### 96080-4 ####[facility] LABIA [id number] [place], [place] [address]OXG (RBC) [Entitic mass]31.2 mpCmvikl25.0-34.0[facility] on above:Order Comment: Specimen Type: BLOOD SPECIMENOrdering Facility: [facility] Address:[address] [place], [place] [address]Performed By: #### 88976-6 ####[facility] LABCLIA [id number] [place], [place] [address]SHGV (RBC) [Mass/Vol]31.2 g/fQJxcoly68.5-36.0[facility] on above: Order Comment: Specimen Type: BLOOD SPECIMENOrdering Facility: [facility] Address:[address] [place], [place] [address]Performed By: #### 22022- 8 ####[facility] LABIA [id number] [place], [place] [address]BKT (RBC) [Entitic vol]100.0 oUKdgsur26.0-100.0[facility] on above:Order Comment: Specimen Type: BLOOD SPECIMENOrdering Facility: [facility] Address:[address] [place], [place] [address]Performed By: #### 13564-8 ####[facility] LABIA [id number] [place], [place] [address]Kvtikqtqi (Bld) [#/Vol]0.77 10*3/uLNormal<0.87[facility] on above:Order Comment: Specimen Type: BLOOD SPECIMENOrdering Facility: [facility] Address:[address] [place], [place] [address]Performed By: #### 32149- 8 ####[facility] LABCLIA [id number] [place], [place] [address]Udypzozut/100 WBC (Bld)6.2 %NormalMount Carmel Health System on above:Order Comment: Specimen Type: BLOOD SPECIMENOrdering Facility: [facility] Address:[address] [place], [place] [address]Performed By: #### 79059-0 ####[facility] LABCLIA [id number] [place], [place] [address]Mjlxwlpfaxw (Bld) [#/Vol]10.18 10*3/uLHigh1.45-7.50[facility] on above:Order Comment: Specimen Type: BLOOD SPECIMENOrdering Facility: [facility] Address:[address] [place], [place] [address]Performed By: #### 06513-0 ####[facility] LABCLIA [id number] [place], [place] [address]Ejmwmqkijyz/100 WBC (Bld)81.7 %NormalMount Carmel Health System on above:Order Comment: Specimen Type: BLOOD SPECIMENOrdering Facility: [facility] Address:[address] [place], [place] [address]Performed By: #### 39788-6 ####[facility] LABIA [id number] [place], [place] [address]Fausxiapy RBC (Bld) [#/Vol] 10*3/uLNormal<0.01[facility] on above:Order Comment: Specimen Type: BLOOD SPECIMENOrdering Facility: [facility] Address:[address] [place], [place] [address]Performed By: #### 26547-8 ####[facility] LABCLIA [id number] [place], [place] [address]Vkextlkka RBC/100 WBC (Bld) [Ratio]0.0 /100 WBCNormal [facility] on above:Order Comment: Specimen Type: BLOOD SPECIMENOrdering Facility: [facility] Address:[address] [place], [place] [address]Performed By: #### 57230-3 ####[facility] LABIA [id number] [place], [place] [address]Aozxpcnl mean volume (Bld) [Entitic vol]9.0 fLNormal9.0-12.7CVeterans Health Administration on above:Order Comment: Specimen Type: BLOOD SPECIMENOrdering Facility: [facility] Address:[address] [place], [place] [address] Performed By: #### 55709-6 ####[facility] LABCLIA [id number] [place], [place] [address]Lofwdszid (Bld) [#/Vol]276 10*3/xYCyrjvw812-561EvginfwreMount Carmel Health System on above:Order Comment: Specimen Type: BLOOD SPECIMENOrdering Facility: [facility] Address:[address] [place], [place] [address]Performed By: #### 83154-1 ####[facility] LABCLIA [id number] [place], [place] [address]ENL (Bld) [#/Vol]3.17 10*6/uLLow3.90-5.20[facility] on above:Order Comment: Specimen Type: BLOOD SPECIMENOrdering Facility: [facility] Address:[address] [place], [place] [address]Performed By: #### 15501-8 ####[facility] LABIA [id number] [place], [place] [address]CZW (Bld) [#/Vol]12.46 10*3/uL High3.70-11.00[facility] on above:Order Comment: Specimen Type: BLOOD SPECIMENOrdering Facility: [facility] Address:[address] [place], [place] [address]Performed By: #### 94014-2 ####[facility] LABIA [id number] [place] [address] CNOVSPon 28-72-9785PVODIVBgkbqeZoswnrhrh Clinic ClevelandComprehensive metabolic 2000 panelon 47-86-5955Eauymxw [Mass/Vol]3.4 g/dLLow3.9-4.9CVeterans Health Administration on above:Order Comment: Specimen Type: BLOOD SPECIMENOrdering Facility: [facility] Address:[address] [place], [place] [address]Performed By: #### 13529-9 ####[facility] LABCLIA [id number] [place], [place] [address]YMP [Catalytic activity/Vol]334 U/EDtvo48-415BoerdmkiwMount [facility]el Health [facility] on above:Order Comment: Specimen Type: BLOOD SPECIMENOrdering Facility: [facility] Address:[address] [place], [place] [address]Performed By: #### 47288-0 ####[facility] LABCLIA [id number] [place] [address] ALT [Catalytic activity/Vol]15 U/LNormal7-38[facility] on above:Order Comment: Specimen Type: BLOOD SPECIMENOrdering Facility: [facility] Address:[address] [place], [place] [address]Performed By: #### 03133-8 ####[facility] LABCLIA [id number] [facility] TURCIOSWINSLOW INDIAN HEALTHCARE CENTERKHADIJAHBLOOMER, [place] [address]Obxwl gap [Moles/Vol]7 mmol/LLow8-15[facility] on above:Order Comment: Specimen Type: BLOOD SPECIMENOrdering Facility: [facility] Address:[address] [place], [place] [address]Performed By: #### 75431-9 ####[facility] LABCLIA [id number] [facility] [address] [facility] CENTERJUDAHWINSLOW INDIAN HEALTHCARE CENTERKHADIJAHBLOOMER, [place] [address]DNM [Catalytic activity/Vol]17 U/VIuvzzp69-81BurkqgiweMount Carmel Health System on above:Order Comment: Specimen Type: BLOOD SPECIMENOrdering Facility: [facility] Address:[address] [place], [place] [address]Performed By: #### 97694-9 ####[facility] LABCLIA [id number] [address] [facility] [place] [address] Bilirubin [Mass/Vol]0.2 mg/dLNormal0.2-1.3CVeter[facility] Administration on above:Order Comment: Specimen Type: BLOOD SPECIMENOrdering Facility: [facility] Address:[address] [place], [place] [address]Performed By: #### 55548-1 ####[facility] LABCLIA [id number] JEANNETTEST. ANTHONY HOSPITALJUDAHWINSLOW INDIAN [place] [address]Mrtclpa [Mass/Vol]9.4 mg/dLNormal8.5-10.2CVeterans Health Administration on above:Order Comment: Specimen Type: BLOOD SPECIMENOrdering Facility: [facility] Address:[address] [place], [place] [address]Performed By: #### 63666-8 ####[facility] LABCLIA [id number] [place], [place] [address]Hxsrtqzf [Moles/Vol]104 mmol/MPbwgjo35-232WwexagcylMount [facility] on above: Order Comment: Specimen Type: BLOOD SPECIMENOrdering Facility: [facility] Address:[address] [place], [place] [address]Performed By: #### 51774- 8 ####[facility] LABCLIA [id number] [facility] [place], [place] [address]VM1 [Moles/Vol]25 mmol/FQkeqqi50-86ObupmrfkzMount [facility] on above:Order Comment: Specimen Type: BLOOD SPECIMENOrdering Facility: [facility] Address:[address] [place], [place] [address]Performed By: #### 66106-1 ####[facility] LABCLIA [id number] [address] [facility] MED[facility] CENTERJUDAHFOUNTAIN, [place] [address]Xjpugswixp [Mass/Vol]0.63 mg/dL Normal0.58-0.96[facility] on above:Order Comment: Specimen Type: BLOOD SPECIMENOrdering Facility: [facility] Address:[address] [place], [place] [address]Performed By: #### 01439-7 ####[facility] LABCLIA [id number] [place], [place] [address]Yvtmjatyqo and Glomerular filtration rate.predicted panel (S/P/Bld)101 mL/min/1.73m???Normal>=60[facility] on above:Order Comment: Specimen Type: BLOOD SPECIMENOrdering Facility: [facility] Address:[address] [place], [place] [address]Result Comment: Estimated Glomerular Filtration Rate (eGFR) is calculated using the 2020 CKD-EPI creatinine equation. This equation utilizes serum creatinine, sex, and age as parameters. The creatinine assay has traceable calibration to isotope dilution- mass spectrometry. Refer to KDIGO guidelines for clinical interpretation. In patients with unstable renal function, e.g. those with acute kidney injury, the eGFR may not accurately reflect actual GFR.Performed By: #### 18338-1 ####[facility] LABCLIA [id number] [place], [place] [address]Iwqddub [Mass/Vol]99 mg/wDBnpjrt11-83NieeffznzMount Carmel Health System on above:Order Comment: Specimen Type: BLOOD SPECIMENOrdering Facility: [facility] Address:[address] [place] [address] Comment: The [place] Diabetes [employer] (ADA) provides guidance for cutoff values for fasting glucose and random glucose. The ADA defines fasting as no caloric intake for at least 8 hours. Fasting plasma glucose results between 100 to 125 mg/dL indicate increased risk for diabetes (prediab etes).Fasting plasma glucose results greater than or equal to 126 mg/dL meet the criteria for diagnosis of diabetes. In the absence of unequivocal hyperglycemia, results should be confirmed by repeattesting. In a patient with classic symptoms of hyperglycemia or hyperglycemic crisis, random plasmaglucose results greater than or equal to 200 mg/dL meet the criteria for diagnosis of diabetes.Reference: Standards of Medical Care in Diabetes 2016, [place] [employer]. Diabetes Care. 2016.39(Suppl 1).Performed By: #### 40656-4 ####[facility] LABCLIA [id number] [place], [place] [address]Iiltydokg [Moles/Vol]3.7 mmol/LNormal3.7-5.1CVeterans Health Administration on above:Order Comment: Specimen Type: BLOOD SPECIMENOrdering Facility: [facility] Address:[address] [place], [place] [address]Performed By: #### 76454-4 ####[facility] LABCLIA [id number] [place], [place] [address]Uqcetmi [Mass/Vol]6.0 g/dLLow6.3-8.0[facility] on above:Order Comment: Specimen Type: BLOOD SPECIMENOrdering Facility: [facility] Address:[address] [place], [place] [address]Performed By: #### 12650- 8 ####[facility] LABCLIA [id number] [place], [place] [address]Hiyeqv [Moles/Vol]136 mmol/FOolnuy171-742BuxgltxahMount Carmel Health System on above:Order Comment: Specimen Type: BLOOD SPECIMENOrdering Facility: [facility] Address:[address] [place], [place] [address]Performed By: #### 79417-4 ####[facility] LABCLIA [id number] [place], [place] [address]Pxfm nitrogen [Mass/Vol]17 mg/dLNormal7-21[facility] on above:Order Comment: Specimen Type: BLOOD SPECIMENOrdering Facility: [facility] Address:[address] [place], [place] [address]Performed By: #### 45626-4 ####[facility] LABCLIA [id number] [place], [place] [address]Lczhdx SerPl-mCncon 69-88-8635Oxwspznr [Mass/Vol]6.0 ug/dLNormal4.8-19.5CVeterans Health Administration on above:Order Comment: Specimen Type: BLOOD SPECIMENOrdering Facility: [facility] Address:[address] [place], [place] [address]Result Comment: Provided reference range is from 6-10 AM sample collection time.Cortisol Reference Range: 6-10 AM = 4.8-19.5 ug/dL, 4-8 PM = 2.5-11.9 ug/dLPerformed By: #### 2143-6, 3016-3 ####[facility] LABCLIA [id number] [facility]ITALC[facility] [address] [address] [facility] SerPl-aCncon 51-77-7956HIP Qn 11.600 m[IU]/LHigh0.270-4.200[facility] on above:Order Comment: Specimen Type: BLOOD SPECIMENOrdering Facility: [facility] Address:[address] [place], [place] [address]Performed By: #### 2143- 6, 3016-3 ####[facility] LABCLIA [id number] [address] Auto Differential panel (Bld)on 20-23-9581Tlxtomcez (Bld) [#/Vol]0.03 10*3/uLNormal<0.11CVeterans Health Administration on above:Order Comment: Specimen Type: BLOOD SPECIMENOrdering Facility: [facility] Address:[address] [place], [place] [address]Performed By: #### 08837-4 ####[facility] LABCLIA [id number] [place], [place] [address]Mvieelunz/100 WBC (Bld)0.4 %NormalMount Carmel Health System on above:Order Comment: Specimen Type: BLOOD SPECIMENOrdering Facility: [facility] Address:[address] [place], [place] [address]Performed By: #### 30952-2 ####[facility] LABCLIA [id number] [place], [place] [address]Xmubdawlbnla cell count method Nom (Bld)AutoNormal [facility] on above:Order Comment: Specimen Type: BLOOD SPECIMENOrdering Facility: [facility] Address:[address] [place], [place] [address]Performed By: #### 38777-3 ####[facility] LABCLIA [id number] [place], [place] [address]Sezrwwugucy (Bld) [#/Vol]0.12 10*3/uLNormal<0.46[facility] on above: Order Comment: Specimen Type: BLOOD SPECIMENOrdering Facility: [facility] Address:[address] [place], [place] [address]Performed By: #### 62668- 8 ####[facility] LABCLIA [id number] [place], [place] [address]Eslwqmyyulo/100 WBC (Bld)1.5 %NormalMount Carmel Health System on above:Order Comment: Specimen Type: BLOOD SPECIMENOrdering Facility: [facility] Address:[address] [place], [place] [address]Performed By: #### 29999-6 ####[facility] LABIA [id number] [place], [place] [address]Owachqingph distribution width (RBC) [Ratio]14.7 %Qzqsas16.5-15.0[facility] on above: Order Comment: Specimen Type: BLOOD SPECIMENOrdering Facility: [facility] Address:[address] [place], [place] [address]Performed By: #### 31743- 8 ####[facility] LABIA [id number] [place], [place] [address]Gcwryghlof (Bld) [Volume fraction]32.9 %Low36.0-46.0 [facility] on above:Order Comment: Specimen Type: BLOOD SPECIMENOrdering Facility: [facility] Address:[address] [place], [place] [address]Performed By: #### 67147-9 ####[facility] LABIA [id number] [place], [place] [address]Yekvhdhtyl (Bld) [Mass/Vol]10.3 g/dLLow11.5-15.5CVeterans Health Administration on above:Order Comment: Specimen Type: BLOOD SPECIMENOrdering Facility: [facility] Address:[address] [place], [place] [address]Performed By: #### 32521- 8 ####[facility] LABCLIA [id number] [place], [place] [address]Vvdgcawg granulocytes (Bld) [#/Vol]0.25 10*3/uLHigh<0.10 [facility] on above:Order Comment: Specimen Type: BLOOD SPECIMENOrdering Facility: [facility] Address:[address] [place], [place] [address]Performed By: #### 23927-6 ####[facility] LABCLIA [id number] [place], [place] [address]Iaqxflkg granulocytes/100 WBC (Bld)3.1 %[facility] on above: Order Comment: Specimen Type: BLOOD SPECIMENOrdering Facility: [facility] Address:[address] [place], [place] [address]Performed By: #### 20024- 8 ####[facility] LABCLIA [id number] [place], [place] [address]Fooxtknamuo (Bld) [#/Vol]1.86 10*3/uLNormal1.00-4.00 [facility] on above:Order Comment: Specimen Type: BLOOD SPECIMENOrdering Facility: [facility] Address:[address] [place], [place] [address]Performed By: #### 68825-3 ####[facility] LABIA [id number] [place], [place] [address]Qcardbxkxfe/100 WBC (Bld)23.1 %[facility] on above:Order Comment: Specimen Type: BLOOD SPECIMENOrdering Facility: [facility] Address:[address] [place], [place] [address]Performed By: #### 42000-2 ####[facility] LABCLIA [id number] [place], [place] [address]ZNB (RBC) [Entitic mass]31.8 obJzzxgt90.0-34.0[facility] on above:Order Comment: Specimen Type: BLOOD SPECIMENOrdering Facility: [facility] Address:[address] [place], [place] [address]Performed By: #### 90949-5 ####[facility] LABCLIA [id number] [place], [place] [address]GJFH (RBC) [Mass/Vol]31.3 g/lQXpjwzv42.5-36.0[facility] on above: Order Comment: Specimen Type: BLOOD SPECIMENOrdering Facility: [facility] Address:[address] [place], [place] [address]Performed By: #### 01493- 8 ####[facility] LABCLIA [id number] [place], [place] [address]PUZ (RBC) [Entitic vol]101.5 fEZoak03.0-100.0[facility] on above:Order Comment: Specimen Type: BLOOD SPECIMENOrdering Facility: [facility] Address:[address] [place], [place] [address]Performed By: #### 34414-3 ####[facility] LABIA [id number] [place], [place] [address]Omwfrxyls (Bld) [#/Vol]0.75 10*3/uLNormal<0.87[facility] on above:Order Comment: Specimen Type: BLOOD SPECIMENOrdering Facility: [facility] Address:[address] [place], [place] [address]Performed By: #### 67070- 8 ####[facility] LABIA [id number] [place], [place] [address]Xhkfpnnpp/100 WBC (Bld)9.3 %NormalMount Carmel Health System on above:Order Comment: Specimen Type: BLOOD SPECIMENOrdering Facility: [facility] Address:[address] [place], [place] [address]Performed By: #### 48244-1 ####[facility] LABCLIA [id number] [place], [place] [address]Yjgdtfaamhc (Bld) [#/Vol]5.05 10*3/uLNormal1.45-7.50[facility] on above:Order Comment: Specimen Type: BLOOD SPECIMENOrdering Facility: [facility] Address:[address] [place], [place] [address]Performed By: #### 19243-2 ####[facility] LABCLIA [id number] [place], [place] [address]Scksarppeym/100 WBC (Bld)62.6 %NormalMount Carmel Health System on above:Order Comment: Specimen Type: BLOOD SPECIMENOrdering Facility: [facility] Address:[address] [place], [place] [address]Performed By: #### 74998-2 ####[facility] LABCLIA [id number] [place], [place] [address]Oehqhylcq RBC (Bld) [#/Vol] 10*3/uLNormal<0.01[facility] on above:Order Comment: Specimen Type: BLOOD SPECIMENOrdering Facility: [facility] Address:[address] [place], [place] [address]Performed By: #### 94376-2 ####[facility] LABCLIA [id number] [place], [place] [address]Dscgntqwd RBC/100 WBC (Bld) [Ratio]0.0 /100 WBCNormal [facility] on above:Order Comment: Specimen Type: BLOOD SPECIMENOrdering Facility: [facility] Address:[address] [place], [place] [address]Performed By: #### 70716-1 ####[facility] LABCLIA [id number] [place], [place] [address]Fckdymtc mean volume (Bld) [Entitic vol]9.3 fLNormal9.0-12.7CVeterans Health Administration on above:Order Comment: Specimen Type: BLOOD SPECIMENOrdering Facility: [facility] Address:[address] [place] [address] Performed By: #### 78335-4 ####[facility] LABCLIA [id number] [place], [place] [address]Qlcilbmfr (Bld) [#/Vol]242 10*3/hRNqbsvq191-168CfywnikzmMount [facility] on above:Order Comment: Specimen Type: BLOOD SPECIMENOrdering Facility: [facility] Address:[address] [place], [place] [address]Performed By: #### 87568-8 ####[facility] LABCLIA [id number] [place], [place] [address]KVH (Bld) [#/Vol]3.24 10*6/uLLow3.90-5.20[facility] on above:Order Comment: Specimen Type: BLOOD SPECIMENOrdering Facility: [facility] Address:[address] [place], [place] [address]Performed By: #### 11268-6 ####[facility] LABCLIA [id number] [place], [place] [address]EWF (Bld) [#/Vol]8.06 10*3/uL Normal3.70-11.00[facility] on above:Order Comment: Specimen Type: BLOOD SPECIMENOrdering Facility: [facility] Address:[address] [place], [place] [address]Performed By: #### 63331-6 ####[facility] LABCLIA [id number] [place], [place] [address]BLPCFQia 01-89-1374DTXUDDZkzmbmKslskbdtvAdena Health System metabolic 2000 panelon 22-84-1718Zindhjy [Mass/Vol]3.1 g/dLLow 3.9-4.9CVeterans Health Administration on above:Order Comment: Specimen Type: BLOOD SPECIMENOrdering Facility: [facility] Address:[address] [place], [place] [address]Performed By: #### 52714-7 ####[facility] LABCLIA [id number] [place], [place] [address]MBH [Catalytic activity/Vol]710 U/PCflt18-961QuvtpnqgdMount [facility] on above:Order Comment: Specimen Type: BLOOD SPECIMENOrdering Facility: [facility] Address:[address] [place], [place] [address]Performed By: #### 01106-9 ####[facility] LABCLIA [id number] [place], [place] [address]GUZ [Catalytic activity/Vol]141 U/LHigh7-38[facility] on above:Order Comment: Specimen Type: BLOOD SPECIMENOrdering Facility: [facility] Address:[address] [place], [place] [address]Performed By: #### 35932-9 ####[facility] LABCLIA [id number] [place], [place] [address]Mxejo gap [Moles/Vol]6 mmol/LLow8-15[facility] on above:Order Comment: Specimen Type: BLOOD SPECIMENOrdering Facility: [facility] Address:[address] [place], [place] [address]Performed By: #### 70006- 8 ####[facility] LABIA [id number] [place], [place] [address]QGB [Catalytic activity/Vol]38 U/THimw34-80KvgynapsrMount Carmel Health [facility] on above:Order Comment: Specimen Type: BLOOD SPECIMENOrdering Facility: [facility] Address:[address] [place], [place] [address]Performed By: #### 19875-4 ####[facility] LABCLIA [id number] [place] [address]Mrbhiswbg [Mass/Vol]0.2 mg/dLNormal0.2-1.3CVeterans Health Administration on above:Order Comment: Specimen Type: BLOOD SPECIMENOrdering Facility: [facility] Address:[address] [place], [place] [address]Performed By: #### [id number]- 8 ####[facility] LABCLIA [id number] [facility] [place], [place] [address]Hahimgl [Mass/Vol]8.7 mg/dLNormal8.5-10.2CVeterans Health Administration on above:Order Comment: Specimen Type: BLOOD SPECIMENOrdering Facility: [facility] Address:[address] [place], [place] [address]Performed By: #### 08307-0 ####[facility] LABCLIA [id number] [place], [place] [address]Tvtbqisa [Moles/Vol]104 mmol/L Ozqhnv98-772WaoomriznMount Carmel Health [facility] on above:Order Comment: Specimen Type: BLOOD SPECIMENOrdering Facility: [facility] Address:[address] [place], [place] [address]Performed By: #### 53358-3 ####[facility] LABCLIA [id number] [facility] [place] [address] CO2 [Moles/Vol]26 mmol/GJxdqmp23-83XcdgpsralMount Carmel Health System on above: Order Comment: Specimen Type: BLOOD SPECIMENOrdering Facility: [facility] Address:[address] [place], [place] [address]Performed By: #### 68722- 8 ####[facility] LABCLIA [id number] [facility] [place] [address]Hdofuolcgx [Mass/Vol]0.59 mg/dLNormal0.58-0.96[facility] on above:Order Comment: Specimen Type: BLOOD SPECIMENOrdering Facility: [facility] Address:[address] [place] [address]Kowimjcqx By: #### 12801-4 ####[facility] LABCLIA [id number] [place], [place] [address]Hwiizprbec and Glomerular filtration rate.predicted panel (S/P/Bld)103 mL/min/1.73m???Normal >=60[facility] on above:Order Comment: Specimen Type: BLOOD SPECIMENOrdering Facility: [facility] Address:[address] [place] [address]Jxcaer Comment: Estimated Glomerular Filtration Rate (eGFR) is calculated using the 2020 CKD-EPI creatinine equation. This equation utilizes serum creatinine, sex, and age as parameters. The creatinine assay has traceable calibration to isotope dilution-mass spectrometry. Refer to KDIGO guidelines for clinical interpretation. In patients with unstable renal function, e.g. those with acute kidney injury, the eGFR may not accurately reflect actual GFR.Performed By: #### 72022-7 ####[facility] LABCLIA [id number] [place], [place] [address]Vvskngs [Mass/Vol]97 mg/aUIiyvll71-19CmrhemeubMount Carmel Health System on above:Order Comment: Specimen Type: BLOOD SPECIMENOrdering Facility: [facility] Address:[address] [place] [address]Zbwhnn Comment: The [place] Diabetes Association (ADA) provides guidance for cutoff values for fast ing glucose and random glucose. The ADA defines fasting as no caloric intake for at least 8 hours. Fasting plasma glucose results between 100 to 125 mg/dL indicate increased risk for diabetes (prediabetes).Fasting plasma glucose results greater than or equal to 126 mg/dL meet the criteria for diagnosis of diabetes. In the absence of unequivocal hyperglycemia, results should be confirmed by repeattesting. In a patient with classic symptoms of hyperglycemia or hyperglycemic crisis, random plasmaglucose results greater than or equal to 200 mg/dL meet the criteria for diagnosis of diabetes.Reference: Standards of Medical Care in Diabetes 2016, [place] Diabetes Association. Diabetes Care. 2016.39(Suppl 1).Performed By: #### 81146-7 ####[facility] LABCLIA [id number] [place], [place] [address]Vnzmxpfcy [Moles/Vol]4.1 mmol/LNormal3.7-5.1CVeterans Health Administration on above: Order Comment: Specimen Type: BLOOD SPECIMENOrdering Facility: [facility] Address:[address] [place], [place] [address]Performed By: #### 43140- 8 ####[facility] LABCLIA [id number] [place], [place] [address]Knxribf [Mass/Vol]5.5 g/dLLow6.3-8.0[facility] on above:Order Comment: Specimen Type: BLOOD SPECIMENOrdering Facility: [facility] Address:[address] [place], [place] [address]Performed By: #### 55416-8 ####[facility] LABCLIA [id number] [place], [place] [address]Zljhnp [Moles/Vol]136 mmol/L Terffi626-893CylfadlnjMount Carmel Health System on above:Order Comment: Specimen Type: BLOOD SPECIMENOrdering Facility: [facility] Address:[address] [place], [place] [address]Performed By: #### 23821-5 ####[facility] LABCLIA [id number] [place] [address] Urea nitrogen [Mass/Vol]17 mg/dLNormal7-21[facility] on above:Order Comment: Specimen Type: BLOOD SPECIMENOrdering Facility: [facility] Address:[address] [place], [place] [address]Performed By: #### 53426-9 ####[facility] LABCLIA [id number] [place], [place] [address]FZN LIPID PROFILE (FASTING)on 44-74-9254ROFY HDL RATIO3.6NOMS HealthcareComment on above:3.3 - 4.4 LOW RISK 4.4 - 7.1 AVERAGE RISK 7.1 - 11.0 MODERATE RISK >11.0 HIGH RISK Cholesterol [Mass/Vol]108 mg/dLNINF - 200 mg/dLNOSaint John's HospitalCholesterol in HDL [Mass/Vol]30 mg/dLLow40 - 60 mg/dLNOMI HealthcareComment on above:> or =60 mg/dl - LOW CARDIOVASCULAR RISK <40 mg/dl - HIGH CARDIOVASCULAR RISK Magnesium [Mass/Vol]54 mg/dLNOMI HealthcareComment on above:<100 mg/dl OPTIMAL 100-129 mg/dl NEAR OR ABOVE OPTIMAL 130-159 mg/dl BORDERLINE HIGH 160-189 mg/dl HIGH >190 mg/dl VERY HIGH Triglyceride [Mass/Vol]123 mg/dLNINF - 150 mg/dLNOMI HealthcareVLDL CHOLESTEROL 24.6 mg/dLCox SouthHMHP LIVER PANELon 54-83-8016Qgjjmfr [Mass/Vol]2.2 g/dL Low3.4 - 5.0 g/dLCox SouthALBUMIN GLOBULIN RATIO0.6NOMI HealthcareALP [Catalytic activity/Vol]1047 U/LHigh46 - 116 U/LNOMS HealthcareALT [Catalytic activity/Vol]636 U/LCritically high14 - 59 U/LNOMS HealthcareComment on above: RESULTS CALLED TO DR. SYMONE WELLERAST [Catalytic activity/Vol]599 U/LCritically high15 - 37 U/LNOMS HealthcareComment on above:RESULTS CALLED TO DR. SYMONE WELLER Bilirubin [Mass/Vol]0.3 mg/dL0.2 - 1.0 mg/dLCox SouthBilirubin.indirect [Mass/Vol]0.2 mg/dL0.0 - 0.2 mg/dLCox SouthGlobulin (S) [Mass/Vol]3.8 g/dL NOM HealthcareProtein [Mass/Vol]6 g/dLLow6.4 - 8.2 g/dLCox SouthNo Panel Informationon 75-61-9852Dazzifjtkrgunh and review of laboratory resultsAbnormal NOMS HealthcareCLINISYNCNOMS HealthcareCNPNon 99-01-0955CYXUIghjiwEbyrketee Clinic ClevelandCBC W Auto Differential panel (Bld)on 47-98-7641Qtxvffzhs (Bld) [#/Vol]0.05 10*3/uLNormal<0.11CVeterans Health Administration on above:Order Comment: Specimen Type: BLOOD SPECIMENOrdering Facility: [facility] Address:[address] [place], [place] [address]Performed By: #### 03890- 8 ####[facility] LABCLIA [id number] [place], [place] [address]Htapifegx/100 WBC (Bld)0.5 %NormalMount Carmel Health System on above:Order Comment: Specimen Type: BLOOD SPECIMENOrdering Facility: [facility] Address:[address] [place], [place] [address]Performed By: #### 54145-7 ####[facility] LABCLIA [id number] [place], [place] [address]Lsnksvrimeiz cell count method Nom (Bld)AutoNormalCVeterans Health Administration on above:Order Comment: Specimen Type: BLOOD SPECIMENOrdering Facility: [facility] Address:[address] [place], [place] [address]Performed By: #### 36824-4 ####[facility] LABCLIA [id number] [place], [place] [address]Raxduetnajk (Bld) [#/Vol]0.21 10*3/uLNormal<0.46[facility] on above:Order Comment: Specimen Type: BLOOD SPECIMENOrdering Facility: [facility] Address:[address] [place], [place] [address]Performed By: #### 71572-2 ####[facility] LABCLIA [id number] [place], [place] [address]Drqeqwoqrpp/100 WBC (Bld)2.2 %NormalMount Carmel Health System on above:Order Comment: Specimen Type: BLOOD SPECIMENOrdering Facility: [facility] Address:[address] [place], [place] [address]Performed By: #### 70346-9 ####[facility] LABCLIA [id number] [place], [place] [address]Glxfjotunpu distribution width (RBC) [Ratio]14.5 %Normal 11.5-15.0[facility] on above:Order Comment: Specimen Type: BLOOD SPECIMENOrdering Facility: [facility] Address:[address] [place], [place] [address]Performed By: #### 62393-9 ####[facility] LABIA [id number] [place] [address] Hematocrit (Bld) [Volume fraction]34.6 %Low36.0-46.0[facility] Comment on above:Order Comment: Specimen Type: BLOOD SPECIMENOrdering Facility: [facility] Address:[address] [place] [address] Performed By: #### 14201-5 ####[facility] LABIA [id number] [place], [place] [address]Iakwyotrxt (Bld) [Mass/Vol]11.0 g/dLLow11.5-15.5CVeterans Health Administration on above:Order Comment: Specimen Type: BLOOD SPECIMENOrdering Facility: [facility] Address:[address] [place], [place] [address]Performed By: #### 85875-7 ####[facility] LABIA [id number] [place], [place] [address]Nypalpia granulocytes (Bld) [#/Vol]0.09 10*3/uLNormal <0.10[facility] on above:Order Comment: Specimen Type: BLOOD SPECIMENOrdering Facility: [facility] Address:[address] [place], [place] [address]Performed By: #### 91473-6 ####[facility] LABIA [id number] [place], [place] [address]Xzsmgrph granulocytes/100 WBC (Bld)0.9 %NormalMount Carmel Health System on above: Order Comment: Specimen Type: BLOOD SPECIMENOrdering Facility: [facility] Address:[address] [place], [place] [address]Performed By: #### 13635- 8 ####[facility] LABCLIA [id number] [place], [place] [address]Zsyxpykkxqi (Bld) [#/Vol]1.42 10*3/uLNormal1.00-4.00 [facility] on above:Order Comment: Specimen Type: BLOOD SPECIMENOrdering Facility: [facility] Address:[address] [place], [place] [address]Performed By: #### 78000-5 ####[facility] LABCLIA [id number] [place], [place] [address]Ajxaibadejc/100 WBC (Bld)14.9 %NormalMount Carmel Health System on above:Order Comment: Specimen Type: BLOOD SPECIMENOrdering Facility: [facility] Address:[address] [place], [place] [address]Performed By: #### 98205-2 ####[facility] LABCLIA [id number] [place], [place] [address]DNW (RBC) [Entitic mass]31.7 kwZyhatk68.0-34.0[facility] on above:Order Comment: Specimen Type: BLOOD SPECIMENOrdering Facility: [facility] Address:[address] [place], [place] [address]Performed By: #### 52359-7 ####[facility] LABCLIA [id number] [place], [place] [address]EXYA (RBC) [Mass/Vol]31.8 g/fDJdjqoj50.5-36.0[facility] on above: Order Comment: Specimen Type: BLOOD SPECIMENOrdering Facility: [facility] Address:[address] [place], [place] [address]Performed By: #### 52016- 8 ####[facility] LABCLIA [id number] [place], [place] [address]DPL (RBC) [Entitic vol]99.7 vCRwcdtm35.0-100.0[facility] on above:Order Comment: Specimen Type: BLOOD SPECIMENOrdering Facility: [facility] Address:[address] [place], [place] [address]Performed By: #### 69980-5 ####[facility] LABCLIA [id number] [place], [place] [address]Zcwmwqcxy (Bld) [#/Vol]0.91 10*3/uLHigh<0.87[facility] on above:Order Comment: Specimen Type: BLOOD SPECIMENOrdering Facility: [facility] Address:[address] [place], [place] [address]Performed By: #### 79816- 8 ####[facility] LABCLIA [id number] [place], [place] [address]Izxdpyzsa/100 WBC (Bld)9.6 %NormalMount Carmel Health System on above:Order Comment: Specimen Type: BLOOD SPECIMENOrdering Facility: [facility] Address:[address] [place], [place] [address]Performed By: #### 13905-2 ####[facility] LABCLIA [id number] [place], [place] [address]Ulyuysqqfnv (Bld) [#/Vol]6.84 10*3/uLNormal1.45-7.50[facility] on above:Order Comment: Specimen Type: BLOOD SPECIMENOrdering Facility: [facility] Address:[address] [place], [place] [address]Performed By: #### 26388-0 ####[facility] LABCLIA [id number] [place], [place] [address]Vsscelbaebx/100 WBC (Bld)71.9 %NormalMount Carmel Health System on above:Order Comment: Specimen Type: BLOOD SPECIMENOrdering Facility: [facility] Address:[address] [place], [place] [address]Performed By: #### 73287-4 ####[facility] LABCLIA [id number] [place], [place] [address]Hiqaqaugx RBC (Bld) [#/Vol] 10*3/uLNormal<0.01[facility] on above:Order Comment: Specimen Type: BLOOD SPECIMENOrdering Facility: [facility] Address:[address] [place], [place] [address]Performed By: #### 05610-8 ####[facility] LABCLIA [id number] [place], [place] [address]Hnrspsmqk RBC/100 WBC (Bld) [Ratio]0.0 /100 WBCNormal [facility] on above:Order Comment: Specimen Type: BLOOD SPECIMENOrdering Facility: [facility] Address:[address] [place], [place] [address]Performed By: #### 44030-2 ####[facility] LABCLIA [id number] [place], [place] [address]Uztlurjz mean volume (Bld) [Entitic vol]9.5 fLNormal9.0-12.7CVeterans Health Administration on above:Order Comment: Specimen Type: BLOOD SPECIMENOrdering Facility: [facility] Address:[address] [place] [address] Performed By: #### 95089-3 ####[facility] LABCLIA [id number] [place], [place] [address]Rzvoivgrp (Bld) [#/Vol]248 10*3/oFSubgsw845-909IzqulxfxzMount [facility] on above:Order Comment: Specimen Type: BLOOD SPECIMENOrdering Facility: [facility] Address:[address] [place], [place] [address]Performed By: #### 57872-4 ####[facility] LABCLIA [id number] [place], [place] [address]YJN (Bld) [#/Vol]3.47 10*6/uLLow3.90-5.20[facility] on above:Order Comment: Specimen Type: BLOOD SPECIMENOrdering Facility: [facility] Address:[address] [place], [place] [address]Performed By: #### 64925-7 ####[facility] LABCLIA [id number] [place], [place] [address]THD (Bld) [#/Vol]9.52 10*3/uL Normal3.70-11.00[facility] on above:Order Comment: Specimen Type: BLOOD SPECIMENOrdering Facility: [facility] Address:[address] [place], [place] [address]Performed By: #### 80892-7 ####[facility] LABIA [id number] [place], [place] [address]RHWZRIak 71-17-3179YMAJWESudlgnSoxvsftwxAdena Health System metabolic 2000 panelon 57-23-8094Ynifrvy [Mass/Vol]3.3 g/dLLow 3.9-4.9CVeterans Health Administration on above:Order Comment: Specimen Type: BLOOD SPECIMENOrdering Facility: [facility] Address:[address] [place], [place] [address]Performed By: #### 31972-7 ####[facility] LABCLIA [id number] [place], [place] [address]BES [Catalytic activity/Vol]425 U/IOvhv11-001ZxnnadoovMount Carmel Health [facility] on above:Order Comment: Specimen Type: BLOOD SPECIMENOrdering Facility: [facility] Address:[address] [place], [place] [address]Performed By: #### 10516-1 ####[facility] LABCLIA [id number] [place], [place] [address]YVL [Catalytic activity/Vol]53 U/LHigh7-38[facility] on above:Order Comment: Specimen Type: BLOOD SPECIMENOrdering Facility: [facility] Address:[address] [place], [place] [address]Performed By: #### 57509-9 ####[facility] LABCLIA [id number] JEANNETTEST. ANTHONY HOSPITALJUDAHFOUNTAIN, [place] [address]Gtycg gap [Moles/Vol]8 mmol/LNormal8-15[facility] on above:Order Comment: Specimen Type: BLOOD SPECIMENOrdering Facility: [facility] Address:[address] [place], [place] [address]Performed By: #### 45261- 8 ####[facility] LABCLIA [id number] [facility] [place], [place] [address]PEA [Catalytic activity/Vol]105 U/XEppr56-73WzsyfzxecMount [facility] on above:Order Comment: Specimen Type: BLOOD SPECIMENOrdering Facility: [facility] Address:[address] [place], [place] [address]Performed By: #### 89677-5 ####[facility] LABCLIA [id number] JEANNETTEST. ANTHONY HOSPITALJUDAHWINSLOW INDIAN HEALTHCARE CENTERKHADIJAHBLOOMER, [place] [address]Qfirzoapn [Mass/Vol]0.2 mg/dLNormal0.2-1.3CVeterans Health Administration on above:Order Comment: Specimen Type: BLOOD SPECIMENOrdering Facility: [facility] Address:[address] [place], [place] [address]Performed By: #### 68474- 8 ####[facility] LABCLIA [id number] [facility] TAMWINSLOW INDIAN HEALTHCARE CENTERKHADIJAHBLOOMER, [place] [address]Eefabgw [Mass/Vol]8.9 mg/dLNormal8.5-10.2CVeterans Health Administration on above:Order Comment: Specimen Type: BLOOD SPECIMENOrdering Facility: [facility] Address:[address] [place], [place] [address]Performed By: #### 86550-9 ####[facility] LABCLIA [id number] [place], [place] [address]Fqjnjfft [Moles/Vol]101 mmol/L Ncoply07-321HysgnhwnoMount Carmel Health [facility] on above:Order Comment: Specimen Type: BLOOD SPECIMENOrdering Facility: [facility] Address:[address] [place], [place] [address]Performed By: #### 28987-8 ####[facility] LABCLIA [id number] [place] [address] CO2 [Moles/Vol]27 mmol/LHlmrlu30-91RsyjqyyyxMount [facility] on above: Order Comment: Specimen Type: BLOOD SPECIMENOrdering Facility: [facility] Address:[address] [place], [place] [address]Performed By: #### 55712- 8 ####[facility] LABCLIA [id number] [place], [place] [address]Pncugbaosp [Mass/Vol]0.74 mg/dLNormal0.58-0.96[facility] on above:Order Comment: Specimen Type: BLOOD SPECIMENOrdering Facility: [facility] Address:[address] [place], [place] [address]Performed By: #### 26983-5 ####[facility] LABCLIA [id number] [place], [place] [address]Bqyswwuiuw and Glomerular filtration rate.predicted panel (S/P/Bld)93 mL/min/1.73m???Normal>=60 [facility] on above:Order Comment: Specimen Type: BLOOD SPECIMENOrdering Facility: [facility] Address:[address] [place], [place] [address]Result Comment: Estimated Glomerular Filtration Rate (eGFR) is calculated using the 2020 CKD-EPI creatinine equation. This equation utilizes serum creatinine, sex, and age as parameters. The creatinine assay has traceable calibration to isotope dilution-mass spectrometry. Refer to KDIGO guidelines for clinical interpretation. In patients with unstable renal function, e.g. those with acute kidney injury, the eGFR may not accurately reflect actual GFR.Performed By: #### 93151-0 ####[facility] LABCLIA [id number] [place], [place] [address]Rfdrtfm [Mass/Vol]117 mg/jOEzlp05-79EixpsfplmMount Carmel Health [facility] on above:Order Comment: Specimen Type: BLOOD SPECIMENOrdering Facility: [facility] Address:[address] [place], [place] [address]Result Comment: The [place] Diabetes Association (ADA) provides guidance for cutoff values for fast ing glucose and random glucose. The ADA defines fasting as no caloric intake for at least 8 hours. Fasting plasma glucose results between 100 to 125 mg/dL indicate increased risk for diabetes (prediabetes).Fasting plasma glucose results greater than or equal to 126 mg/dL meet the criteria for diagnosis of diabetes. In the absence of unequivocal hyperglycemia, results should be confirmed by repeattesting. In a patient with classic symptoms of hyperglycemia or hyperglycemic crisis, random plasmaglucose results greater than or equal to 200 mg/dL meet the criteria for diagnosis of diabetes.Reference: Standards of Medical Care in Diabetes 2016, [place] [employer]. Diabetes Care. 2016.39(Suppl 1).Performed By: #### 44744-8 ####[facility] LABCLIA [id number] [place], [place] [address]Edsfydlca [Moles/Vol]4.1 mmol/LNormal3.7-5.1CVeterans Health Administration on above: Order Comment: Specimen Type: BLOOD SPECIMENOrdering Facility: [facility] Address:[address] [place], [place] [address]Performed By: #### 90615- 8 ####[facility] LABCLIA [id number] [place], [place] [address]Apbwcof [Mass/Vol]6.1 g/dLLow6.3-8.0[facility] on above:Order Comment: Specimen Type: BLOOD SPECIMENOrdering Facility: [facility] Address:[address] [place], [place] [address]Performed By: #### 30591-5 ####[facility] LABCLIA [id number] [place], [place] [address]Vidhjj [Moles/Vol]136 mmol/L Uuxtga104-444GkfflpkfgMount Carmel Health System on above:Order Comment: Specimen Type: BLOOD SPECIMENOrdering Facility: [facility] Address:[address] [place], [place] [address]Performed By: #### 13743-7 ####[facility] LABCLIA [id number] [place] [address] Urea nitrogen [Mass/Vol]21 mg/dLNormal7-21[facility] on above:Order Comment: Specimen Type: BLOOD SPECIMENOrdering Facility: [facility] Address:[address] [place], [place] [address]Performed By: #### 04844-5 ####[facility] LABCLIA [id number] [place], [place] [address]Jypoyn SerPl-mCncon 41-84-4498Yphbpuvm [Mass/Vol] 16.4 ug/dLNormal4.8-19.5CVeterans Health Administration on above:Order Comment: Specimen Type: BLOOD SPECIMENOrdering Facility: [facility] Address:[address] [place], [place] [address]Result Comment: Provided reference range is from 6-10 AM sample collection time.Cortisol Reference Range: 6-10 AM = 4.8-19.5 ug/dL, 4-8 PM = 2.5-11.9 ug/dLPerformed By: #### 2143-6, 3016-3 ####[facility] LABCLIA [id number] [place] [address] [place] MSTRNJNHdE4q (Bld)on 38-48-0116Himzdfl glucose Estimated from glycated hemoglobin (Bld) [Mass/Vol]111 mg/dLNormal [facility] on above:Order Comment: Specimen Type: BLOOD SPECIMENOrdering Facility: [facility] Address:[address] [place], [place] [address]Result Comment: eAG: (Estimated average glucose) is a calculated value from HgbA1c and is insurance sales representative of the average blood glucose level in the last 2-3 month period.Performed By: #### 67090-3 ####[facility] [id number] [place] [id number] [place] RHJUKDLMfM1q (Bld) [Mass fraction]5.5 %Normal4.3-5.6 [facility] on above:Order Comment: Specimen Type: BLOOD SPECIMENOrdering Facility: [facility] Address:[address] [place], [place] [address]Result Comment: [place] [employer] guidelines indicate that patients with HgbA1c in the range 5.7-6.4% are at increased risk for development of diabetes, and intervention by lifestyle modification may be beneficial. HgbA1c greater or equal to 6.5% is considered diagnostic of diabetes.Performed By: #### 56452-2 ####[facility] [id number] [place] [id number] [facility] TSH SerPl-aCncon 53-37-1388BHZ Qn9.060 m[IU]/LHigh0.270-4.200[facility] on above:Order Comment: Specimen Type: BLOOD SPECIMENOrdering Facility: [facility] Address:[address] [place], [place] [address]Performed By: #### 2143-6, 3016-3 ####[facility] [id number] [place] [id number] [facility] Ambulatory Visit Summaryon 39-40-6269Mdyhgqjiik Visit SummaryAmbulatory Visit Summary DEBBY HERMOSILLO :1965 Visit Date:06/10/2024 Ambulatory Visit Instructions Your Diagnosis Renal stone Recurrent UTI Your Care Team Attending Physician - JESSIKA RINCON PA-C This Is Your Medications List Contact prescribing physician if questions or concerns acetaminophen (Tylenol) aspirin (Adult Aspirin 81 mg oral tablet, chewable) bifidobacterium-lactobacillus (Nature's Bounty Probiotic) buprenorphine-naloxone (Suboxone 8 mg-2 mg sublingual film) fexofenadine folic acid ondansetron (Zofran 8 mg Tab) pembrolizumab (Keytruda 50 mg intravenous injection) prochlorperazine (Compazine 10 mg oral tablet) rimegepant (Nurtec ODT 75 mg oral tablet, disintegrating) Procedures Performed Gamma-knife excision. (02/2024), Biopsy (08/10/2022), Bronchoscopy (02/08/2017), Carpal tunnel release, Esophagogastroduodenoscopy and biopsy, Gallbladder, Partial hysterectomy, Reconstruction of nose, Thoracoscopic wedge resection of lung. Discharge Vitals Temperature (Temporal Artery) 37 ???C Heart Rate (Peripheral) 85 Respiratory Rate 16 Blood Pressure 117/60 Height 155 cm Height 61 in Weight 41.7 kg Weight 91.933 lb BMI 17.36 What to do next Scheduled Follow-Up Appointments Monday2025 2:40 PM EDT With: JESSIKA RINCON PA-C Where: [facility] [address] [place] [address] [place] [address]- You Need to Schedule the Following Appointments Follow Up with JESSIKA RINCON PA-C, URL When: In 18 months Where: [address] [facility] [place] [id number] Medications What How Much When Instructions Unchanged acetaminophen (Tylenol) 500 Milligram By Mouth Every 4 hours as needed for as needed for pain Contact prescribing physician if questions or concerns Unchanged aspirin (Adult Aspirin 81 mg oral tablet, chewable) Chewed Every day Contact prescribing physician if questions or concerns Unchanged bifidobacterium-lactobacillus (Nature's Bounty Probiotic) By Mouth Every day Contact prescribing physician if questions or concerns Unchanged buprenorphine-naloxone (Suboxone 8 mg-2 mg sublingual film) 1.5 strips Sublingual Every day Contact prescribing physician if questions or concerns Unchanged fexofenadine By Mouth Contact prescribing physician if questions or concerns Unchanged folic acid Every day Contact prescribing physician if questions or concerns Unchanged ondansetron (Zofran 8 mg Tab) 1 Tablets By Mouth 3 times a day as needed for Nausea Contact prescribing physician if questions or concerns Unchanged pembrolizumab (Keytruda 50 mg intravenous injection) Contact prescribing physician if questions or concerns Unchanged prochlorperazine (Compazine 10 mg oral tablet) 1 Tablets By Mouth Every 6 hours as neededfor Nausea Contact prescribing physician if questions or concerns Unchanged rimegepant (Nurtec ODT 75 mg oral tablet, disintegrating) By Mouth Once Contact prescribing physician if questions or concerns Allergies penicillins (Unknown) Problems Ongoing - Any problem that you are currently receiving treatment for. Chemotherapy Lung cancer Non-ulcer dyspepsia Recurrent UTI Renal stone Smoker Stomach ulcer UTI symptoms Historical - Any problem that you are no longer receiving treatment for. Radiation therapy care Patient Survey You may receive a survey via text or e-mail asking about your office visit. Please share your experience with us by completing your survey. We appreciate your feedback and thank you for choosing us for your care. Education Materials Kidney Stones Kidney stones are rock-like masses that form inside of the kidneys. Kidneys are organs that make pee (urine). A kidney stone may move into other parts of the urinary tract, including: ??? The tubes that connect the kidneys to the bladder (ureters). ??? The bladder. ??? The tube that carries urine out of the body (urethra). Kidney stones can cause very bad pain and can block the flow of pee. The stone usually leaves your body through your pee. A doctor may need to take out the stone. What are the causes? Kidney stones may be caused by: ??? Too much calcium in the body. This may be caused by too much parathyroid hormone in the blood. ??? Uric acid crystals in the bladder. The body makes uric acid when you eat certain foods. ??? Narrowing of one or both of the ureters. ??? A kidney blockage that you were born with. ??? Past surgery on the kidney or the ureters. What increases the risk? You are more likely to develop this condition if: ??? You have had a kidney stone in the past. ??? Other people in your family have had kidney stones. ??? You do not drink enough water. ??? You eat a diet that is high in protein, salt (sodium), or sugar. ??? You are very overweight (obese). (more content not included)...[facility] Office/Clinic Noteon [id number] Office/Clinic NoteUrology Office/Clinic Note Chief Complaint f/u with KUB and SOCRATES HPI Staff 58 yr old female here for 1 yr f/u w/ KUB & SOCRATES Previous dx: Recurrent UTI, Renal stone Pt states that she has to rand to the bathroom once in a while. She does have leakage every now andthen. She does wear a pad daily but states that most days she doesn't have to change at all. Denies any dysuria, visible blood or abdominal or flank pain. Review of Systems PHQ Score Initial Depression Screen Score: 0 SCORE no fever, chills, malaise, myalgia. no rash/lesions. no chest pain, palpitations, or SOB. no abdominal pain, nausea, vomiting. Physical Exam Vitals & Measurements T: 37 ???C(Temporal Artery) HR: 85(Peripheral) RR: 16 BP: 117/60 HT: 155 cm HT: 61 in WT: 41.7 kg WT: 91.933 lb BMI: 17.36 General: nontoxic, NAD Assessment/Plan Pt has metastatic lung cancer, follows with Dr. Larkin at [facility] cancer center. Was initially treated w chemo and radiation. Off treatment x 4 yrs, then recurrence summer/fall. Had 2 tx Keytrudawith marked improvement in ca. However then brain tumor found. Had gamma knife. BBS 13 (15). Good Control. Not bothersome enough for treatment per pt. 1. Renal stone (N20.0: Calculus of kidney) SOCRATES & KUB 05/07/24 - No stones visible on KUB, obscured. Bilat small stones (largest 4mm) on SOCRATES, no hydro. Continue stone prevention diet. Repeat KUB & SOCRATES in 1.5 years Ordered: E&M of Est. Patient Low 20-29 Min 14911 2. Recurrent UTI (N39.0: Urinary tract infection, site not specified) UTI frequency every 1-2 mos prior to starting care with our office. UTIs started worsening in the past 1-2 yrs. Prior to that averaged UTIs very rarely. Pt's typical UTI sx include low abd pain/pressure, freq, urge. Pt has been using an OTC probiotic for over a year now, has helped prevent infections. No increase in frequency of UTIs. No gross hematuria. Ordered: E&M of Est. Patient Low 20-29 Min 03719 Follow-up With When Contact Information MCKENZIE COHEN, JESSIKA Andrade, URL In 18 months [address] [place] [address] Additional Instructions: Patient Education Kidney Stones, Avam-qn-Qies Problem List/Past Medical History Ongoing Chemotherapy Lung cancer Non-ulcer dyspepsia Recurrent UTI Renal stone Smoker Stomach ulcer UTI symptoms Historical Radiation therapy care Procedure/Surgical History Gamma-knife excision. (02/2024), Biopsy (08/10/2022), Bronchoscopy (02/08/2017), Carpal tunnel release, Esophagogastroduodenoscopy and biopsy, Gallbladder, Partial hysterectomy, Reconstruction of nose, Thoracoscopic wedge resection of lung. Medications Adult Aspirin 81 mg oral tablet, [...] History Alcohol - Denies Alcohol Use, 02/07/2017 Never., 06/09/2024 Substance Abuse - Denies Substance Abuse, 02/07/2017 Never., 06/09/2024 Tobacco - High Risk, 02/07/2017 10 or more cigarettes (1/2 pack or more)/day in last 30 days Tobacco Use:. Never Smokeless Tobacco Use:. Cigarettes, Yes, 06/10/2024 4 or less cigarettes(less than 1/4 pack)/day in last 30 days Tobacco Use:. Cigarettes, Yes, 11/01/2022 Current Every Day Smoker, Cigarettes, 20 per day., 02/07/2017 Family History Colon cancer: Brother. Immunizations Vaccine Date Status Comments pneumococcal 20-valent conjugate vaccine 08/05/2022 Recorded influenza virus vaccine, inactivated 12/16/2021 Recorded SARS-CoV-2 mRNA (tozinameran 5y-11y) vac - Not Given Postpone due to refusal SARSCoV2 mRNA(btxotgtyc-zxue-gwjijt) vac 08/02/2021 Recorded SARS-CoV-2 (COVID-19) mRNA BNT-162b2 vax 12/18/2020 Recorded influenza virus vaccine, inactivated 11/26/2020 Recorded SARS-CoV-2 (COVID-19) mRNA BNT-162b2 vax 06/03/2020 Recorded SARS-CoV-2 (COVID-19) mRNA BNT-162b2 vax 05/13/2020 Recorded influenza virus vaccine, inactivated 01/16/2020 Recorded pneumococcal 23-valent vaccine 01/18/2002 Recorded Td(adult) unspecified formulation 10/03/2001 RecordedNoHarrison Community HospitalComment on above:Result Comment: Electronically Signed By: JESSIKA RINCON PA-C\Haibr\Date and Time Signed: 06/10/2514:40 EDTCBC W Auto Differential panel (Bld)on 95-69-7421Qzrhdujem (Bld) [#/Vol]10*3/uLNormal<0.11CVeterans Health Administration on above:Order Comment: Specimen Type: BLOOD SPECIMENOrdering Facility: [facility] Address:[address] [place], [place] [address]Performed By: #### 47200-7 ####[facility] LABCLIA [id number] [place], [place] [address]Gnhclwzcu/100 WBC (Bld)0.4 %NormalMount Carmel Health System on above:Order Comment: Specimen Type: BLOOD SPECIMENOrdering Facility: [facility] Address:[address] [place], [place] [address]Performed By: #### 91513-0 ####[facility] LABCLIA [id number] [place], [place] [address]Rqlpptxghree cell count method Nom (Bld)AutoNormal [facility] on above:Order Comment: Specimen Type: BLOOD SPECIMENOrdering Facility: [facility] Address:[address] [place], [place] [address]Performed By: #### 03001-1 ####[facility] LABCLIA [id number] [place], [place] [address]Oggwwvctggu (Bld) [#/Vol]0.13 10*3/uLNormal<0.46[facility] on above: Order Comment: Specimen Type: BLOOD SPECIMENOrdering Facility: [facility] Address:[address] [place], [place] [address]Performed By: #### 79832- 8 ####[facility] LABCLIA [id number] [place], [place] [address]Rxsunospcws/100 WBC (Bld)2.3 %NormalMount Carmel Health System on above:Order Comment: Specimen Type: BLOOD SPECIMENOrdering Facility: [facility] Address:[address] [place], [place] [address]Performed By: #### 34421-5 ####[facility] LABIA [id number] [place], [place] [address]Hzjvyvkvipf distribution width (RBC) [Ratio]14.0 %Yhvcuf18.5-15.0[facility] on above: Order Comment: Specimen Type: BLOOD SPECIMENOrdering Facility: [facility] Address:[address] [place], [place] [address]Performed By: #### 24035- 8 ####[facility] LABCLIA [id number] [place], [place] [address]Nbnotpnraw (Bld) [Volume fraction]32.5 %Low36.0-46.0 [facility] on above:Order Comment: Specimen Type: BLOOD SPECIMENOrdering Facility: [facility] Address:[address] [place], [place] [address]Performed By: #### 14628-2 ####[facility] LABCLIA [id number] [place], [place] [address]Ycmtabllxo (Bld) [Mass/Vol]10.4 g/dLLow11.5-15.5CVeterans Health Administration on above:Order Comment: Specimen Type: BLOOD SPECIMENOrdering Facility: [facility] Address:[address] [place], [place] [address]Performed By: #### 56734- 8 ####[facility] LABCLIA [id number] [place], [place] [address]Mhpdaora granulocytes (Bld) [#/Vol]0.05 10*3/uLNormal <0.10[facility] on above:Order Comment: Specimen Type: BLOOD SPECIMENOrdering Facility: [facility] Address:[address] [place], [place] [address]Performed By: #### 80459-9 ####[facility] LABIA [id number] [place], [place] [address]Kgounoda granulocytes/100 WBC (Bld)0.9 %NormalMount Carmel Health System on above: Order Comment: Specimen Type: BLOOD SPECIMENOrdering Facility: [facility] Address:[address] [place], [place] [address]Performed By: #### 44644- 8 ####[facility] LABCLIA [id number] [place], [place] [address]Zbutqshvahi (Bld) [#/Vol]1.68 10*3/uLNormal1.00-4.00 [facility] on above:Order Comment: Specimen Type: BLOOD SPECIMENOrdering Facility: [facility] Address:[address] [place], [place] [address]Performed By: #### 62547-8 ####[facility] LABIA [id number] [place], [place] [address]Lupneerphaw/100 WBC (Bld)29.9 %NormalMount Carmel Health System on above:Order Comment: Specimen Type: BLOOD SPECIMENOrdering Facility: [facility] Address:[address] [place], [place] [address]Performed By: #### 24939-8 ####[facility] LABCLIA [id number] [place], [place] [address]QYJ (RBC) [Entitic mass]32.9 ypPnexzp07.0-34.0[facility] on above:Order Comment: Specimen Type: BLOOD SPECIMENOrdering Facility: [facility] Address:[address] [place], [place] [address]Performed By: #### 85689-5 ####[facility] LABCLIA [id number] [place], [place] [address]BGND (RBC) [Mass/Vol]32.0 g/uELdhpuc60.5-36.0[facility] on above: Order Comment: Specimen Type: BLOOD SPECIMENOrdering Facility: [facility] Address:[address] [place], [place] [address]Performed By: #### 77170- 8 ####[facility] LABCLIA [id number] [place], [place] [address]QWM (RBC) [Entitic vol]102.8 sQXfny07.0-100.0[facility] on above:Order Comment: Specimen Type: BLOOD SPECIMENOrdering Facility: [facility] Address:[address] [place], [place] [address]Performed By: #### 01915-4 ####[facility] LABCLIA [id number] [place], [place] [address]Zojiwrenx (Bld) [#/Vol]0.54 10*3/uLNormal<0.87[facility] on above:Order Comment: Specimen Type: BLOOD SPECIMENOrdering Facility: [facility] Address:[address] [place], [place] [address]Performed By: #### 64736- 8 ####[facility] LABCLIA [id number] [place], [place] [address]Soigvfydf/100 WBC (Bld)9.6 %NormalMount Carmel Health System on above:Order Comment: Specimen Type: BLOOD SPECIMENOrdering Facility: [facility] Address:[address] [place], [place] [address]Performed By: #### 33848-9 ####[facility] LABCLIA [id number] [place], [place] [address]Lulugbujedq (Bld) [#/Vol]3.20 10*3/uLNormal1.45-7.50[facility] on above:Order Comment: Specimen Type: BLOOD SPECIMENOrdering Facility: [facility] Address:[address] [place], [place] [address]Performed By: #### 19824-9 ####[facility] LABCLIA [id number] [place], [place] [address]Vvvbudhcots/100 WBC (Bld)56.9 %NormalMount Carmel Health System on above:Order Comment: Specimen Type: BLOOD SPECIMENOrdering Facility: [facility] Address:[address] [place], [place] [address]Performed By: #### 44227-4 ####[facility] LABCLIA [id number] [place], [place] [address]Awzysvitb RBC (Bld) [#/Vol] 10*3/uLNormal<0.01[facility] on above:Order Comment: Specimen Type: BLOOD SPECIMENOrdering Facility: [facility] Address:[address] [place], [place] [address]Performed By: #### 67384-5 ####[facility] LABCLIA [id number] [place], [place] [address]Yohdpoddp RBC/100 WBC (Bld) [Ratio]0.0 /100 WBCNormal [facility] on above:Order Comment: Specimen Type: BLOOD SPECIMENOrdering Facility: [facility] Address:[address] [place], [place] [address]Performed By: #### 47874-7 ####[facility] LABCLIA [id number] [place], [place] [address]Jiaibhyb mean volume (Bld) [Entitic vol]9.0 fLNormal9.0-12.7CVeterans Health Administration on above:Order Comment: Specimen Type: BLOOD SPECIMENOrdering Facility: [facility] Address:[address] [place] [address] Performed By: #### 81221-5 ####[facility] LABCLIA [id number] [place], [place] [address]Fequfeecu (Bld) [#/Vol]196 10*3/cTJcburh941-298JkbhyfimnMount Carmel Health System on above:Order Comment: Specimen Type: BLOOD SPECIMENOrdering Facility: [facility] Address:[address] [place], [place] [address]Performed By: #### 35097-1 ####[facility] LABCLIA [id number] [place], [place] [address]CFM (Bld) [#/Vol]3.16 10*6/uLLow3.90-5.20[facility] on above:Order Comment: Specimen Type: BLOOD SPECIMENOrdering Facility: [facility] Address:[address] [place], [place] [address]Performed By: #### 39816-7 ####[facility] LABCLIA [id number] [place], [place] [address]ZND (Bld) [#/Vol]5.62 10*3/uL Normal3.70-11.00[facility] on above:Order Comment: Specimen Type: BLOOD SPECIMENOrdering Facility: [facility] Address:[address] [place], [place] [address]Performed By: #### 22256-3 ####[facility] LABCLIA [id number] [place] [address]WFTTNScd 65-70-2508EXBXWEPkkeovPvrvnhywq [facility] CNPNon 23-52-5523XHBTTwwdmlUuzcffuzn Clinic ClevelandComprehensive metabolic 2000 panelon 21-17-5599Hqjjdur [Mass/Vol]3.6 g/dLLow3.9-4.9CVeterans Health Administration on above:Order Comment: Specimen Type: BLOOD SPECIMENOrdering Facility: [facility] Address:[address] [place], [place] [address]Performed By: #### 62023-1 ####[facility] LABCLIA [id number] JEANNETTE TARAUNIVERSITY [facility] U[facility] H[facility]ITALEL[place], [place] [address]YDV [Catalytic activity/Vol]103 U/CBwcjhh16-618NyqpmqkkkMount Carmel Health System on above:Order Comment: Specimen Type: BLOOD SPECIMENOrdering Facility: [facility] Address:[address] [place], [place] [address]Performed By: #### 21041-5 ####[facility] LABCLIA [id number] [facility] [place], [place] [address]DFA [Catalytic activity/Vol]U/LLow7-38[facility] on above:Order Comment: Specimen Type: BLOOD SPECIMENOrdering Facility: [facility] Address:[address] [place], [place] [address]Performed By: #### 07161-5 ####[facility] LABCLIA [id number] [place], [place] [address]Ajcmo gap [Moles/Vol]5 mmol/L Low8-15[facility] on above:Order Comment: Specimen Type: BLOOD SPECIMENOrdering Facility: [facility] Address:[address] [place], [place] [address]Performed By: #### 12538-8 ####[facility] LABCLIA [id number] [place], [place] [address]JBN [Catalytic activity/Vol]13 U/DOgilqt34-26RqqntorxtMount Carmel Health System on above:Order Comment: Specimen Type: BLOOD SPECIMENOrdering Facility: [facility] Address:[address] [place], [place] [address]Performed By: #### 82959-6 ####[facility] LABCLIA [id number] [facility] [place] [address]Smkjbhpoi [Mass/Vol]0.2 mg/dLNormal0.2-1.3CVeterans Health Administration on above:Order Comment: Specimen Type: BLOOD SPECIMENOrdering Facility: [facility] Address:[address] [place], [place] [address]Performed By: #### 34478-9 ####[facility] LABCLIA [id number] JEANNETTEST. ANTHONY HOSPITALJUDAHFOUNT[place], [place] [address]Mkwhrtz [Mass/Vol]9.2 mg/dLNormal8.5-10.2CVeterans Health Administration on above: Order Comment: Specimen Type: BLOOD SPECIMENOrdering Facility: [facility] Address:[address] [place], [place] [address]Performed By: #### 69354- 8 ####[facility] LABCLIA [id number] [facility]TES[facility] [place] [place], [place] [address]Xxbvdxol [Moles/Vol]104 mmol/WMklpwy77-039KcdsxphahMount Carmel Health System on above:Order Comment: Specimen Type: BLOOD SPECIMENOrdering Facility: [facility] Address:[address] [place], [place] [address]Performed By: #### 41813-1 ####[facility] LABCLIA [id number] [place], [place] [address]WG7 [Moles/Vol] 27 mmol/QOdgwym30-92OpafkxbvqMount Carmel Health System on above:Order Comment: Specimen Type: BLOOD SPECIMENOrdering Facility: [facility] Address:[address] [place], [place] [address]Performed By: #### 65534-8 ####[facility] LABCLIA [id number] [place], [place] [address]Bzntwygthb [Mass/Vol]0.70 mg/dLNormal0.58-0.96[facility] on above:Order Comment: Specimen Type: BLOOD SPECIMENOrdering Facility: [facility] Address:[address] [place], [place] [address]Performed By: #### 65554-6 ####[facility] LABIA [id number] [place], [place] [address]Ahktfrkqxb and Glomerular filtration rate.predicted panel (S/P/Bld)99 mL/min/1.73m???Normal>=60 [facility] on above:Order Comment: Specimen Type: BLOOD SPECIMENOrdering Facility: [facility] Address:[address] [place], [place] [address]Result Comment: Estimated Glomerular Filtration Rate (eGFR) is calculated using the 2020 CKD-EPI creatinine equation. This equation utilizes serum creatinine, sex, and age as parameters. The creatinine assay has traceable calibration to isotope dilution-mass spectrometry. Refer to KDIGO guidelines for clinical interpretation. In patients with unstable renal function, e.g. those with acute kidney injury, the eGFR may not accurately reflect actual GFR.Performed By: #### 89711-1 ####[facility] LABIA [id number] [place], [place] [address]Jzdusyp [Mass/Vol]136 mg/xPXezb67-69OezlnemacMount Carmel Health System on above:Order Comment: Specimen Type: BLOOD SPECIMENOrdering Facility: [facility] Address:[address] [place], [place] [address]Result Comment: The [place] Diabetes Association (ADA) provides guidance for cutoff values for fast ing glucose and random glucose. The ADA defines fasting as no caloric intake for at least 8 hours. Fasting plasma glucose results between 100 to 125 mg/dL indicate increased risk for diabetes (prediabetes).Fasting plasma glucose results greater than or equal to 126 mg/dL meet the criteria for diagnosis of diabetes. In the absence of unequivocal hyperglycemia, results should be confirmed by repeattesting. In a patient with classic symptoms of hyperglycemia or hyperglycemic crisis, random plasmaglucose results greater than or equal to 200 mg/dL meet the criteria for diagnosis of diabetes.Reference: Standards of Medical Care in Diabetes 2016, [place] Diabetes Association. Diabetes Care. 2016.39(Suppl 1).Performed By: #### 57663-9 ####[facility] LABCLIA [id number] [place], [place] [address]Falthggie [Moles/Vol]4.5 mmol/LNormal3.7-5.1CVeterans Health Administration on above: Order Comment: Specimen Type: BLOOD SPECIMENOrdering Facility: [facility] Address:[address] [place], [place] [address]Performed By: #### 09670- 8 ####[facility] LABCLIA [id number] [place], [place] [address]Bbaglrz [Mass/Vol]6.1 g/dLLow6.3-8.0[facility] on above:Order Comment: Specimen Type: BLOOD SPECIMENOrdering Facility: [facility] Address:[address] [place], [place] [address]Performed By: #### 64466-2 ####[facility] LABIA [id number] [place], [place] [address]Nrrqdi [Moles/Vol]136 mmol/L Snienz664-780KtrmwzlukMount Carmel Health System on above:Order Comment: Specimen Type: BLOOD SPECIMENOrdering Facility: [facility] Address:[address] [place], [place] [address]Performed By: #### 44798-7 ####[facility] LABCLIA [id number] [place] [address] Urea nitrogen [Mass/Vol]18 mg/dLNormal7-21[facility] on above:Order Comment: Specimen Type: BLOOD SPECIMENOrdering Facility: [facility] Address:[address] [place], [place] [address]Performed By: #### 51506-4 ####[facility] LABCLIA [id number] [place], [place] [address]Bdijee SerPl-mCncon 96-92-1634Tvtnsxem [Mass/Vol] 11.1 ug/dLNormal4.8-19.5CVeterans Health Administration on above:Order Comment: Specimen Type: BLOOD SPECIMENOrdering Facility: [facility] Address:[address] [place], [place] [address]Tlvbuf Comment: Provided reference range is from 6-10 AM sample collection time.Cortisol Reference Range: 6-10 AM = 4.8-19.5 ug/dL, 4-8 PM = 2.5-11.9 ug/dLPerformed By: #### 2143-6, 3016-3 ####[facility] LABIA [id number] [address] OF LUPFKQMLwA6q (Bld)on 19-76-8129Ngnltbi glucose Estimated from glycated hemoglobin (Bld) [Mass/Vol]82 mg/dLNormal [facility] on above:Order Comment: Specimen Type: BLOOD SPECIMENOrdering Facility: [facility] Address:[address] [place] [address]Ijfclv Comment: eAG: (Estimated average glucose) is a calculated value from HgbA1c and is insurance sales representative of the average blood glucose level in the last 2-3 month period.Performed By: #### 51978-1 ####[facility] LABIA [id number] [place] [address] [place] RDYMHRDVrN3g (Bld) [Mass fraction]4.5 %Normal4.3-5.6 [facility] on above:Order Comment: Specimen Type: BLOOD SPECIMENOrdering Facility: [facility] Address:[address] [place], [place] [address]Wzdehv Comment: [place] Diabetes [employer] guidelines indicate that patients with HgbA1c in the range 5.7-6.4% are at increased risk for development of diabetes, and intervention by lifestyle modification may be beneficial. HgbA1c greater or equal to 6.5% is considered diagnostic of diabetes.Performed By: #### 12508-9 ####[facility] LABCLIA [id number] [place] [address] [place] TSH SerPl-aCncon 80-35-5966XQJ Qn3.610 m[IU]/LNormal0.270-4.200[facility] on above:Order Comment: Specimen Type: BLOOD SPECIMENOrdering Facility: [facility] Address:[address] [place], [place] [address]Performed By: #### 2143-6, 3016-3 ####[facility] LABCLIA [id number] [place] [address] [place] GLUCOSE, BLOOD (POC)on 25-83-3264Flulexw [Mass/Vol]107 mg/jGOiagbkzd92 - 99 mg/dLSelect Medical [facility] on above:Location:[facility], [address] [place] [address] , [place], [place], [facility] The Accu-Chek Inform II glucose meter has [...] above situations. Interpretation and review of laboratory resultsAbnormalCOhio Valley Surgical HospitalNM PET/CT SKULL-THIGH SUBQon 76-49-2298JM PET/CT SKULL-THIGH SUBQNormal [facility] W Auto Differential panel (Bld)on 03-21-2024 Basophils (Bld) [#/Vol]0.00 10*3/uLNormal<0.11CVeterans Health Administration on above:Order Comment: Specimen Type: BLOOD SPECIMENOrdering Facility: [facility] Address:[address] [place] [address] Performed By: #### 75574-2 ####[facility] LABCLIA [id number] [address] LABCLIA [id number] [place] [address] [place] AMERICABasophils/100 WBC (Bld)0.0 %NormalMount Carmel Health System on above:Order Comment: Specimen Type: BLOOD SPECIMENOrdering Facility: [facility] Address:[address] [place], [place] [address]Performed By: #### 01945-3 ####[facility] LABCLIA [id number] [address] LABCLIA [id number] [place] [address] [place] AMERICADacrocytes LM Ql (Bld)FewNoSt. Vincent Hospital on above:Order Comment: Specimen Type: BLOOD SPECIMENOrdering Facility: [facility] Address:[address] [place], [place] [address]Performed By: #### 73875-1 ####[facility] LABCLIA [id number] [address] LABCLIA [id number] [place] [address] [place] AMERICADifferential cell count method Nom (Bld)ManualNoSt. Vincent Hospital on above:Order Comment: Specimen Type: BLOOD SPECIMENOrdering Facility: [facility] Address:[address] [place], [place] [address]Performed By: #### 66068-7 ####[facility] LABCLIA [id number] [address] LABCLIA [id number] [place] [address] [place] AMERICAEosinophils (Bld) [#/Vol]0.00 10*3/uLNormal<0.46[facility] on above: Order Comment: Specimen Type: BLOOD SPECIMENOrdering Facility: [facility] Address:[address] [place], [place] [address]Performed By: #### 93101- 8 ####[facility] LABCLIA [id number] [address] LABCLIA [id number] [place] [address] [place] AMERICAEosinophils/100 WBC (Bld)0.0 %NormalMount Carmel Health System on above:Order Comment: Specimen Type: BLOOD SPECIMENOrdering Facility: [facility] Address:[address] [place], [place] [address]Performed By: #### 90953-4 ####[facility] LABCLIA [id number] [address] LABCLIA [id number] [place] [address] [place] AMERICAErythrocyte distribution width (RBC) [Ratio]14.5 %Eogoad63.5-15.0[facility] Comment on above:Order Comment: Specimen Type: BLOOD SPECIMENOrdering Facility: [facility] Address:[address] [place] [address] Performed By: #### 87345-7 ####[facility] LABCLIA [id number] [address] LABCLIA [id number] [place] [address] [place] AMERICAHematocrit (Bld) [Volume fraction]31.4 %Low36.0-46.0[facility] on above:Order Comment: Specimen Type: BLOOD SPECIMENOrdering Facility: [facility] Address:[address] [place], [place] [address]Performed By: #### 96467-3 ####[facility] LABCLIA [id number] [place], [place] [address]SMEAYRPIMSELECT [facility]ICAL [facility] LABCLIA [id number] [address] [address] [place] AMERICAHemoglobin (Bld) [Mass/Vol]9.9 g/dLLow11.5-15.5CAC[facility] Comment on above:Order Comment: Specimen Type: BLOOD SPECIMENOrdering Facility: [facility] Address:[address] [place], [place] [address] Performed By: #### 62150-1 ####[facility] LABCLIA [id number] [address] LABCLIA [id number] [place] [address] [place] AMERICALymphocytes (Bld) [#/Vol]2.24 10*3/uLNormal1.00-4.00[facility] HospitalComment on above:Order Comment: Specimen Type: BLOOD SPECIMENOrdering Facility: [facility] Address:[address] [place], [place] [address]Performed By: #### 09651-6 ####[facility] LABCLIA [id number] [place] [address] LABCLIA [id number] [place] [address] [place] AMERICALymphocytes/100 WBC (Bld)29.3 %NormalKeenan Private HospitalComment on above:Order Comment: Specimen Type: BLOOD SPECIMENOrdering Facility: [facility] Address:[address] [place], [place] [address] Performed By: #### 60036-2 ####[facility] LABCLIA [id number] [address] LABCLIA [id number] [place] [address] [place] AMERICAMCH (RBC) [Entitic mass]35.6 hjQrnx01.0-34.0[facility] Comment on above:Order Comment: Specimen Type: BLOOD SPECIMENOrdering Facility: [facility] Address:[address] [place] [address] Performed By: #### 56910-7 ####[facility] LABCLIA [id number] [address] LABCLIA [id number] [place] [address] [place] [facility] CENTERHC (RBC) [Mass/Vol]31.5 g/eGMobwua82.5-36.0[facility] Comment on above:Order Comment: Specimen Type: BLOOD SPECIMENOrdering Facility: [facility] Address:[address] [place] [address] Performed By: #### 46058-1 ####[facility] LABCLIA [id number] [address] LABCLIA [id number] [place] [address] [place] [facility] MEDICAL CENTERV (RBC) [Entitic vol]112.9 wECwrl64.0-100.0[facility] Comment on above:Order Comment: Specimen Type: BLOOD SPECIMENOrdering Facility: [facility] Address:[address] [place] [address] Performed By: #### 03585-1 ####[facility] LABCLIA [id number] [address] LABCLIA [id number] [place] [address] [place] AMERICAMetamyelocytes/100 WBC (Bld)3.4 %NormalKeenan Private HospitalComment on above:Order Comment: Specimen Type: BLOOD SPECIMENOrdering Facility: [facility] Address:[address] [place] [address] Performed By: #### 65318-1 ####[facility] LABCLIA [id number] [place] [address] LABCLIA [id number] [place] [address] [place] AMERICAMonocytes (Bld) [#/Vol]0.79 10*3/uLNormal<0.87[facility] Comment on above:Order Comment: Specimen Type: BLOOD SPECIMENOrdering Facility: [facility] Address:[address] [place] [address] Performed By: #### 72186-3 ####[facility] LABCLIA [id number] [address] LABCLIA [id number] [place] [address] [place] AMERICAMonocytes/100 WBC (Bld)10.3 %NormalKeenan Private HospitalComment on above:Order Comment: Specimen Type: BLOOD SPECIMENOrdering Facility: [facility] Address:[address] [place], [place] [address]Performed By: #### 47842-1 ####[facility] LABCLIA [id number] [address] LABCLIA [id number] [place] [address] [place] AMERICANeutrophils (Bld) [#/Vol]4.37 10*3/uLNormal1.45-7.50[facility] HospitalComment on above:Order Comment: Specimen Type: BLOOD SPECIMENOrdering Facility: [facility] Address:[address] [place], [place] [address]Performed By: #### 38958-4 ####[facility] LABCLIA [id number] [address] LABCLIA [id number] [place] [address] [place] AMERICANeutrophils/100 WBC (Bld)57.0 %NormalMount Carmel Health System on above:Order Comment: Specimen Type: BLOOD SPECIMENOrdering Facility: [facility] Address:[address] [place], [place] [address]Performed By: #### 11210-6 ####[facility]AD[facility] LABCLIA [id number] [address] LABCLIA [id number] [place] [address] [place] AMERICANucleated RBC (Bld) [#/Vol]10*3/uLNormal<0.01[facility] on above:Order Comment: Specimen Type: BLOOD SPECIMENOrdering Facility: [facility] Address:[address] [place], [place] [address]Performed By: #### 39469- 8 ####[facility]ERYLUIS [facility] LABCLIA [id number] [address] LABCLIA [id number] [place] [address] [place] AMERICANucleated RBC/100 WBC (Bld) [Ratio]0.0 /100 WBCNormJ.W. Ruby Memorial Hospital on above:Order Comment: Specimen Type: BLOOD SPECIMENOrdering Facility: [facility] Address:[address] [place], [place] [address]Performed By: #### 44238-3 ####[facility]LUIS [facility] LABCLIA [id number] [address] LABCLIA [id number] [place] [address] [place] AMERICAOvalocytes LM Ql (Bld)FewNormJ.W. Ruby Memorial Hospital on above:Order Comment: Specimen Type: BLOOD SPECIMENOrdering Facility: [facility] Address:[address] [place], [place] [address]Performed By: #### 47633-7 ####[facility]INEDOD[facility] LABCLIA [id number] [address] [facility] LABCLIA [id number] [address] [address] [place] AMERICAPlatelet mean volume (Bld) [Entitic vol]9.3 fLNormal9.0-12.7CACMC Healthcare System GlenbeighComment on above:Order Comment: Specimen Type: BLOOD SPECIMENOrdering Facility: [facility] Address:[address] [place] [address] Performed By: #### 31897-1 ####[facility] LABCLIA [id number] [address] LABCLIA [id number] [place] [address] [place] AMERICAPlatelets (Bld) [#/Vol]177 10*3/qBKjoysn520-520AkawkqtqnKeenan Private Hospital Comment on above:Order Comment: Specimen Type: BLOOD SPECIMENOrdering Facility: [facility] Address:[address] [place] [address] Performed By: #### 64537-3 ####[facility] LABCLIA [id number] [address] LABCLIA [id number] [place] [address] [place] AMERICAPlatelets Estimate (Bld) [#/Vol]AdequateNormalCACMC Healthcare [facility] Comment on above:Order Comment: Specimen Type: BLOOD SPECIMENOrdering Facility: [facility] Address:[address] [place] [address] Performed By: #### 32552-0 ####[facility] LABCLIA [id number] [address] LABCLIA [id number] [place] [address] [place] AMERICAPolychromasia LM Ql (Bld)SlightNormalCACMC Healthcare System GlenbeighComment on above:Order Comment: Specimen Type: BLOOD SPECIMENOrdering Facility: [facility] Address:[address] [place] [address] Performed By: #### 64173-3 ####[facility] LABCLIA [id number] [facility], [place] [address]AUQFWACESSELECT [facility]ICAL [facility] LABCLIA [id number] [address] [address] [facility] NORTH ALABAMARBC (Bld) [#/Vol]2.78 10*6/uLLow3.90-5.20[facility] Comment on above:Order Comment: Specimen Type: BLOOD SPECIMENOrdering Facility: [facility] Address:[address] [place] [address] Performed By: #### 93523-9 ####[facility] LABCLIA [id number] [place] [address] LABCLIA [id number] [place] [address] [place] HEALTH SYSTEMRED CELL MORPHReviewed: see results of individual morphologiesNoal Keenan Private HospitalComtrinity health [facility] on above:Order Comment: Specimen Type: BLOOD SPECIMENOrdering Facility: [facility] Address:[address] [place], [place] [address]Performed By: #### 06991-9 ####[facility] LABCLIA [id number] [place], [place] [address]HOQVZUXNGSELECT [facility]ICAL [facility] LABCLIA [id number] [place] [address] [place] AMERICAW (Bld) [#/Vol]7.66 10*3/uLNormal3.70-11.00[facility] on above:Order Comment: Specimen Type: BLOOD SPECIMENOrdering Facility: [facility] Address:[address] [place], [place] [address]Performed By: #### 54747-5 ####[facility] LABCLIA [id number] [facility]WHZDKJDZOSELECT [facility] LABCLIA [id number] [place] [address] [place] AMERICAWBC Left Shift Ql (Bld)PresentNormJ.W. Ruby [facility] Hospital on above:Order Comment: Specimen Type: BLOOD SPECIMENOrdering Facility: [facility] Address:[address] [place], [place] [address]Performed By: #### 13154-9 ####[facility] LABCLIA [id number] [place], [place] [address]RGBYZGRUNSELECT MEDICAL [facility] LABCLIA [id number] [place] [address] [place] AMERICACNOVSPon 98-78-4476KGPPASQjsknyZoqervwbd Clinic ClevelandComprehensive metabolic 2000 panelon 01-35-9245Msacrzr [Mass/Vol]3.7 g/dLLow3.9-4.9CVeterans Health Administration on above:Order Comment: Specimen Type: BLOOD SPECIMENOrdering Facility: [facility] Address:[address] [place], [place] [address]Performed By: #### 12334-2 ####[facility] LABIA [id number] [place], [place] [address]XLO [Catalytic activity/Vol]119 U/QLihglf34-324CbveaaxqpMount [facility] on above:Order Comment: Specimen Type: BLOOD SPECIMENOrdering Facility: [facility] Address:[address] [place], [place] [address]Performed By: #### 53696- 8 ####[facility] LABCLIA [id number] [facility] [place], [place] [address]BTH [Catalytic activity/Vol]7 U/LNormal7-38[facility] on above:Order Comment: Specimen Type: BLOOD SPECIMENOrdering Facility: [facility] Address:[address] [place], [place] [address]Performed By: #### 67650-9 ####[facility] LABIA [id number] [place], [place] [address]Qauxn gap [Moles/Vol]10 mmol/LNormal8-15[facility] on above:Order Comment: Specimen Type: BLOOD SPECIMENOrdering Facility: [facility] Address:[address] [place], [place] [address]Performed By: #### 69972- 8 ####[facility] LABCLIA [id number] [place], [place] [address]LTS [Catalytic activity/Vol]11 U/EPdx29-34WgxfmvnegMount Carmel Health System on above:Order Comment: Specimen Type: BLOOD SPECIMENOrdering Facility: [facility] Address:[address] [place], [place] [address]Performed By: #### 67453-0 ####[facility] LABCLIA [id number] [place], [place] [address]Vhuihyzrv [Mass/Vol]mg/dLLow0.2-1.3CVeterans Health Administration on above:Order Comment: Specimen Type: BLOOD SPECIMENOrdering Facility: [facility] Address:[address] [place], [place] [address]Performed By: #### 18201- 8 ####[facility] LABCLIA [id number] [facility] [place], [place] [address]Vmaxctw [Mass/Vol]9.3 mg/dLNormal8.5-10.2CVeterans Health Administration on above:Order Comment: Specimen Type: BLOOD SPECIMENOrdering Facility: [facility] Address:[address] [place], [place] [address]Performed By: #### 69433-6 ####[facility] LABCLIA [id number] [place], [place] [address]Efzycjir [Moles/Vol]106 mmol/L Rquqat00-735VfdqdbnkvMount Carmel Health System on above:Order Comment: Specimen Type: BLOOD SPECIMENOrdering Facility: [facility] Address:[address] [place], [place] [address]Performed By: #### 22265-0 ####[facility] LABCLIA [id number] [place] [address] CO2 [Moles/Vol]24 mmol/KGjplfa73-58RvyrzrszkMount Carmel Health System on above: Order Comment: Specimen Type: BLOOD SPECIMENOrdering Facility: [facility] Address:[address] [place], [place] [address]Performed By: #### 07051- 8 ####[facility] LABCLIA [id number] [place], [place] [address]Desfjjnmrw [Mass/Vol]0.65 mg/dLNormal0.58-0.96[facility] on above:Order Comment: Specimen Type: BLOOD SPECIMENOrdering Facility: [facility] Address:[address] [place], [place] [address]Performed By: #### 24292-4 ####[facility] LABIA [id number] [place], [place] [address]Qyrjmktaaq and Glomerular filtration rate.predicted panel (S/P/Bld)101 mL/min/1.73m???Normal >=60[facility] on above:Order Comment: Specimen Type: BLOOD SPECIMENOrdering Facility: [facility] Address:[address] [place], [place] [address]Result Comment: Estimated Glomerular Filtration Rate (eGFR) is calculated using the 2020 CKD-EPI creatinine equation. This equation utilizes serum creatinine, sex, and age as parameters. The creatinine assay has traceable calibration to isotope dilution-mass spectrometry. Refer to KDIGO guidelines for clinical interpretation. In patients with unstable renal function, e.g. those with acute kidney injury, the eGFR may not accurately reflect actual GFR.Performed By: #### 34672-3 ####[facility] LABIA [id number] [place], [place] [address]Qjuzfxi [Mass/Vol]152 mg/yMRubk61-15QssztkxueMount Carmel Health System on above:Order Comment: Specimen Type: BLOOD SPECIMENOrdering Facility: [facility] Address:[address] [place], [place] [address]Hqmsnp Comment: The [place] Diabetes Association (ADA) provides guidance for cutoff values for fast ing glucose and random glucose. The ADA defines fasting as no caloric intake for at least 8 hours. Fasting plasma glucose results between 100 to 125 mg/dL indicate increased risk for diabetes (prediabetes).Fasting plasma glucose results greater than or equal to 126 mg/dL meet the criteria for diagnosis of diabetes. In the absence of unequivocal hyperglycemia, results should be confirmed by repeattesting. In a patient with classic symptoms of hyperglycemia or hyperglycemic crisis, random plasmaglucose results greater than or equal to 200 mg/dL meet the criteria for diagnosis of diabetes.Reference: Standards of Medical Care in Diabetes 2016, [place] Diabetes Association. Diabetes Care. 2016.39(Suppl 1).Performed By: #### 51830-9 ####[facility] LABCLIA [id number] [place], [place] [address]Dhlpkfipm [Moles/Vol]4.0 mmol/LNormal3.7-5.1CVeterans Health Administration on above: Order Comment: Specimen Type: BLOOD SPECIMENOrdering Facility: [facility] Address:[address] [place] [address]Performed By: #### 87033- 8 ####[facility] LABCLIA [id number] [place], [place] [address]Btvkaas [Mass/Vol]6.1 g/dLLow6.3-8.0[facility] on above:Order Comment: Specimen Type: BLOOD SPECIMENOrdering Facility: [facility] Address:[address] [place], [place] [address]Qajjjjlxr By: #### 97153-9 ####[facility] LABCLIA [id number] [place], [place] [address]Zorvko [Moles/Vol]140 mmol/L Kzgfxi669-754CdqcluqqaMount Carmel Health System on above:Order Comment: Specimen Type: BLOOD SPECIMENOrdering Facility: [facility] Address:[address] [place] [address]Performed By: #### 21567-7 ####[facility] LABCLIA [id number] [place] [address] Urea nitrogen [Mass/Vol]18 mg/dLNormal7-[facility] on above:Order Comment: Specimen Type: BLOOD SPECIMENOrdering Facility: [facility] Address:[address] [place], [place] [address]Performed By: #### 04699-6 ####[facility] LABCLIA [id number] [place], [place] [address]TZO SerPl-aCncon 39-85-0326GAP Qn1.990 m[IU]/LNormal 0.270-4.200[facility] on above:Order Comment: Specimen Type: BLOOD SPECIMENOrdering Facility: [facility] Address:[address] [place], [place] [address]Performed By: #### 3016-3 ####[facility] LABIA [id number] [place] [address] [place] AMERICACB W Auto Differential panel (Bld)on 02-28-2024 Basophils (Bld) [#/Vol]0.00 10*3/uLNormal<0.11CVeterans Health Administration on above:Order Comment: Specimen Type: BLOOD SPECIMENOrdering Facility: [facility] Address:[address] [place] [address] Performed By: #### 73551-5 ####[facility] LABCLIA [id number] [place], [place] [address]GIENAIZWPSELECT [facility]ICAL [facility] LABCLIA [id number] [facility] [id number] [place] [address] [place] AMERICABasophils/100 WBC (Bld)0.0 %NormalMount Carmel Health System on above:Order Comment: Specimen Type: BLOOD SPECIMENOrdering Facility: [facility] Address:[address] [place], [place] [address]Performed By: #### 85674-9 ####[facility] LABCLIA [id number] [place] [address] LABCLIA [id number] [place] [address] [place] AMERICADacrocytes LM Ql (Bld)FewNormalCVeterans Health Administration on above:Order Comment: Specimen Type: BLOOD SPECIMENOrdering Facility: [facility] Address:[address] [place], [place] [address]Performed By: #### 27658-6 ####[facility] LABCLIA [id number] [address] LABCLIA [id number] [place] [address] [place] AMERICADifferential cell count method Nom (Bld)ManualNoSt. Vincent Hospital on above:Order Comment: Specimen Type: BLOOD SPECIMENOrdering Facility: [facility] Address:[address] [place], [place] [address]Performed By: #### 21805-0 ####[facility] LABCLIA [id number] [address] LABCLIA [id number] [place] [address] [place] AMERICAEosinophils (Bld) [#/Vol]0.00 10*3/uLNormal<0.46[facility] on above: Order Comment: Specimen Type: BLOOD SPECIMENOrdering Facility: [facility] Address:[address] [place], [place] [address]Performed By: #### 06835- 8 ####[facility] LABCLIA [id number] [address] LABCLIA [id number] [place] [address] [place] AMERICAEosinophils/100 WBC (Bld)0.0 %NormalMount Carmel Health System on above:Order Comment: Specimen Type: BLOOD SPECIMENOrdering Facility: [facility] Address:[address] [place], [place] [address]Performed By: #### 29830-9 ####[facility] LABCLIA [id number] [address] LABCLIA [id number] [place] [address] [place] AMERICAErythrocyte distribution width (RBC) [Ratio]12.8 %Jyoynl06.5-15.0[facility] Comment on above:Order Comment: Specimen Type: BLOOD SPECIMENOrdering Facility: [facility] Address:[address] [place] [address] Performed By: #### 35562-2 ####[facility] LABCLIA [id number] [address] LABCLIA [id number] [place] [address] [place] AMERICAHematocrit (Bld) [Volume fraction]34.7 %Low36.0-46.0[facility] on above:Order Comment: Specimen Type: BLOOD SPECIMENOrdering Facility: [facility] Address:[address] [place], [place] [address]Performed By: #### 59049-3 ####[facility] LABCLIA [id number] [address] LABCLIA [id number] [place] [address] [place] AMER[place]AHemoglobin (Bld) [Mass/Vol]11.4 g/dLLow11.5-15.5CVeterans Health Administration on above:Order Comment: Specimen Type: BLOOD SPECIMENOrdering Facility: [facility] [facility] Address:[address] [place], [place] [address]Performed By: #### 93181-8 ####[facility] LABCLIA [id number] [address] LABCLIA [id number] [place] [address] [place] AMERICALymphocytes (Bld) [#/Vol]0.46 10*3/uLLow1.00-4.00[facility] on above:Order Comment: Specimen Type: BLOOD SPECIMENOrdering Facility: [facility] Address:[address] [place], [place] [address]Performed By: #### 89982-0 ####[facility] LABCLIA [id number] [address] LABCLIA [id number] [place] [address] [place] AMERICALymphocytes/100 WBC (Bld)5.1 %NormalMount Carmel Health System on above:Order Comment: Specimen Type: BLOOD SPECIMENOrdering Facility: [facility] Address:[address] [place], [place] [address]Performed By: #### 50731-0 ####[facility] LABCLIA [id number] [address] LABCLIA [id number] [address] (RBC) [Entitic mass]36.2 ftAbgt34.0-34.0[facility] on above: Order Comment: Specimen Type: BLOOD SPECIMENOrdering Facility: [facility] Address:[address] [place], [place] [address]Performed By: #### 60159- 8 ####[facility] LABCLIA [id number] [address] LABCLIA [id number] [place] [address] [facility] (RBC) [Mass/Vol]32.9 g/oOUbfhhd76.5-36.0[facility] on above: Order Comment: Specimen Type: BLOOD SPECIMENOrdering Facility: [facility] Address:[address] [place], [place] [address]Performed By: #### 84234- 8 ####[facility] LABCLIA [id number] [address] LABCLIA [id number] [place] [address] [place] AMERICAMCV (RBC) [Entitic vol]110.2 zVHzqy22.0-100.0[facility] on above: Order Comment: Specimen Type: BLOOD SPECIMENOrdering Facility: [facility] Address:[address] [place], [place] [address]Performed By: #### 22222- 8 ####[facility] LABCLIA [id number] [address] LABCLIA [id number] [place] [address] [place] Metamyelocytes/100 WBC (Bld)5.1 %NormalMount Carmel Health System on above:Order Comment: Specimen Type: BLOOD SPECIMENOrdering Facility: [facility] Address:[address] [place], [place] [address]Performed By: #### 82619-6 ####[facility] LABCLIA [id number] [address] LABCLIA [id number] [place] [address] [place] AMERICAMonocytes (Bld) [#/Vol]0.61 10*3/uLNormal<0.87[facility] on above:Order Comment: Specimen Type: BLOOD SPECIMENOrdering Facility: [facility] Address:[address] [place], [place] [address]Performed By: #### 20021- 8 ####[facility] LABCLIA [id number] [place] [id number] LABCLIA [id number] [place] [address] [place] AMERICAMonocytes/100 WBC (Bld)6.8 %NormalMount Carmel Health System on above:Order Comment: Specimen Type: BLOOD SPECIMENOrdering Facility: [facility] Address:[address] [place], [place] [address]Performed By: #### 93942-6 ####[facility] LABCLIA [id number] [address] LABCLIA [id number] [place] [address] [place] AMERICANeutrophils (Bld) [#/Vol]7.42 10*3/uLNormal1.45-7.50[facility] on above:Order Comment: Specimen Type: BLOOD SPECIMENOrdering Facility: [facility] Address:[address] [place], [place] [address]Performed By: #### 73317-2 ####[facility] LABCLIA [id number] [address] LABCLIA [id number] [place] [address] [place] AMERICANeutrophils/100 WBC (Bld)83.0 %NormalMount Carmel Health System on above:Order Comment: Specimen Type: BLOOD SPECIMENOrdering Facility: [facility] Address:[address] [place], [place] [address]Performed By: #### 62820-1 ####[facility] LABCLIA [id number] [address] LABCLIA [id number] [place] [address] [place] AMERICANucleated RBC (Bld) [#/Vol]0.08 10*3/uLHigh<0.01[facility] on above: Order Comment: Specimen Type: BLOOD SPECIMENOrdering Facility: [facility] Address:[address] [place], [place] [address]Performed By: #### 50524- 8 ####[facility] LABCLIA [id number] [address] LABCLIA [id number] [place] [address] [place] AMERICANucleated RBC/100 WBC (Bld) [Ratio]0.9 /100 WBCNoSt. Vincent Hospital on above:Order Comment: Specimen Type: BLOOD SPECIMENOrdering Facility: [facility] Address:[address] [place], [place] [address]Performed By: #### 25734-7 ####[facility] LABCLIA [id number] [address] LABCLIA [id number] [place] [address] [place] AMERICAOvalocytes LM Ql (Bld)FewNoSt. Vincent Hospital on above:Order Comment: Specimen Type: BLOOD SPECIMENOrdering Facility: [facility] Address:[address] [place], [place] [address]Performed By: #### 57227-4 ####[facility] LABCLIA [id number] [address] LABCLIA [id number] [place] [address] [place] AMERICAPlatelet mean volume (Bld) [Entitic vol]10.1 fLNormal9.0-12.7CVeterans Health Administration on above:Order Comment: Specimen Type: BLOOD SPECIMENOrdering Facility: [facility] Address:[address] [place] [address] Performed By: #### 88884-3 ####[facility] LABCLIA [id number] [address] [facility] LABCLIA [id number] [address] [address] [place] AMERICAPlatelets (Bld) [#/Vol]113 10*3/sJPjy459-761NxjxmwncoKeenan Private Hospital Comment on above:Order Comment: Specimen Type: BLOOD SPECIMENOrdering Facility: [facility] Address:[address] [place] [address] Performed By: #### 83130-2 ####[facility] LABCLIA [id number] [place] [address] LABCLIA [id number] [place] [address] [place] AMERICAPlatelets Estimate (Bld) [#/Vol]DecreasedNormalCACMC Healthcare System GlenbeighComment on above:Order Comment: Specimen Type: BLOOD SPECIMENOrdering Facility: [facility] Address:[address] [place], [place] [address]Performed By: #### 48215-4 ####[facility] LABCLIA [id number] [place] [address] LABCLIA [id number] [place] [address] [place] AMERICAPolychromasia LM Ql (Bld)SlightNormalCACMC Healthcare System GlenbeighComment on above:Order Comment: Specimen Type: BLOOD SPECIMENOrdering Facility: [facility] Address:[address] [place] [address] Performed By: #### 13469-0 ####[facility] LABCLIA [id number] [place] [address] LABCLIA [id number] [place] [address] [place] AMERICARBC (Bld) [#/Vol]3.15 10*6/uLLow3.90-5.20[facility] Comment on above:Order Comment: Specimen Type: BLOOD SPECIMENOrdering Facility: [facility] Address:[address] [place] [address] Performed By: #### 04486-7 ####[facility] LABCLIA [id number] [place] [address] LABCLIA [id number] [address] [address] [place] [facility] FRAGMENTSFewAbnormalNone SeenKeenan Private HospitalComment on above:Order Comment: Specimen Type: BLOOD SPECIMENOrdering Facility: [facility] Address:[address] [place], [place] [address]Performed By: #### 75041-9 ####[facility] LABCLIA [id number] [address] LABCLIA [id number] [place] [id number] [facility] HEALTH SYSTEMRED CELL MORPH Reviewed: see results of individual [facility] Comment on above:Order Comment: Specimen Type: BLOOD SPECIMENOrdering Facility: [facility] Address:[address] [place] [address] Performed By: #### 38039-2 ####[facility] LABCLIA [id number] [address] LABCLIA [id number] [place] [address] [place] AMERICAWBC (Bld) [#/Vol]8.94 10*3/uLNormal3.70-11.00[facility] Comment on above:Order Comment: Specimen Type: BLOOD SPECIMENOrdering Facility: [facility] Address:[address] [place] [address] Performed By: #### 07633-3 ####[facility] LABCLIA [id number] [address] LABCLIA [id number] [place] [id number] [place] AMERICACNOVSPon 54-94-7897MSBEZIJrdffcUzkxtyzao Clinic ClevelandComprehensive metabolic 2000 panelon 95-23-8434Tgmlvbw [Mass/Vol]4.0 g/dLNormal3.9-4.9 [facility] on above:Order Comment: Specimen Type: BLOOD SPECIMENOrdering Facility: [facility] Address:[address] [place], [place] [address]Performed By: #### 92438-2 ####[facility] LABCLIA [id number] [place], [place] [address]FQJ [Catalytic activity/Vol]96 U/HRnjvqb73-553ZicdpdhjlMount Carmel Health System on above:Order Comment: Specimen Type: BLOOD SPECIMENOrdering Facility: [facility] Address:[address] [place], [place] [address]Performed By: #### 08207- 8 ####[facility] LABCLIA [id number] [place], [place] [address]URP [Catalytic activity/Vol]68 U/LHigh7-38[facility] on above:Order Comment: Specimen Type: BLOOD SPECIMENOrdering Facility: [facility] Address:[address] [place], [place] [address]Performed By: #### 65623-6 ####[facility] LABCLIA [id number] [place], [place] [address]Yotiu gap [Moles/Vol]11 mmol/LNormal8-15[facility] on above:Order Comment: Specimen Type: BLOOD SPECIMENOrdering Facility: [facility] Address:[address] [place], [place] [address]Performed By: #### 88653- 8 ####[facility] LABCLIA [id number] [place], [place] [address]LOD [Catalytic activity/Vol]19 U/IFplzpt44-10MgoyqowqxMount [facility] Health [facility] on above:Order Comment: Specimen Type: BLOOD SPECIMENOrdering Facility: [facility] Address:[address] [place], [place] [address]Performed By: #### 11657-2 ####[facility] LABCLIA [id number] [place], [place] [address]Mcziehmde [Mass/Vol]0.3 mg/dLNormal0.2-1.3CVeterans Health Administration on above:Order Comment: Specimen Type: BLOOD SPECIMENOrdering Facility: [facility] Address:[address] [place], [place] [address]Performed By: #### 41196- 8 ####[facility] LABCLIA [id number] [place], [place] [address]Qrouuam [Mass/Vol]8.9 mg/dLNormal8.5-10.2CVeterans Health Administration on above:Order Comment: Specimen Type: BLOOD SPECIMENOrdering Facility: [facility] Address:[address] [place], [place] [address]Performed By: #### 30236-2 ####[facility] LABCLIA [id number] [place], [place] [address]Wmadfnpk [Moles/Vol]101 mmol/L Stxgxr52-622ZudjcjuaxMount Carmel Health System on above:Order Comment: Specimen Type: BLOOD SPECIMENOrdering Facility: [facility] Address:[address] [place], [place] [address]Performed By: #### 31000-5 ####[facility] LABCLIA [id number] [place] [address] CO2 [Moles/Vol]24 mmol/FHicsmx10-99LgwqlmislMount Carmel Health System on above: Order Comment: Specimen Type: BLOOD SPECIMENOrdering Facility: [facility] Address:[address] [place], [place] [address]Performed By: #### 93202- 8 ####[facility] LABCLIA [id number] [place], [place] [address]Ttalkyyxea [Mass/Vol]0.52 mg/dLLow0.58-0.96[facility] on above:Order Comment: Specimen Type: BLOOD SPECIMENOrdering Facility: [facility] Address:[address] [place] [address]gezfrdfe By: #### 32841-6 ####[facility] LABCLIA [id number] [place], [place] [address]Qsnzyoolfa and Glomerular filtration rate.predicted panel (S/P/Bld)107 mL/min/1.73m???Normal >=60[facility] on above:Order Comment: Specimen Type: BLOOD SPECIMENOrdering Facility: [facility] Address:[address] [place], [place] [address]Result Comment: Estimated Glomerular Filtration Rate (eGFR) is calculated using the 2020 CKD-EPI creatinine equation. This equation utilizes serum creatinine, sex, and age as parameters. The creatinine assay has traceable calibration to isotope dilution-mass spectrometry. Refer to KDIGO guidelines for clinical interpretation. In patients with unstable renal function, e.g. those with acute kidney injury, the eGFR may not accurately reflect actual GFR.Performed By: #### 81467-2 ####[facility] LABCLIA [id number] [place], [place] [address]Jblhcay [Mass/Vol]139 mg/nUGyim08-35PmqyqzthiMount Carmel Health System on above:Order Comment: Specimen Type: BLOOD SPECIMENOrdering Facility: [facility] Address:[address] [place] [address]Yzoelr Comment: The [place] Diabetes Association (ADA) provides guidance for cutoff values for fast ing glucose and random glucose. The ADA defines fasting as no caloric intake for at least 8 hours. Fasting plasma glucose results between 100 to 125 mg/dL indicate increased risk for diabetes (prediabetes).Fasting plasma glucose results greater than or equal to 126 mg/dL meet the criteria for diagnosis of diabetes. In the absence of unequivocal hyperglycemia, results should be confirmed by repeattesting. In a patient with classic symptoms of hyperglycemia or hyperglycemic crisis, random plasmaglucose results greater than or equal to 200 mg/dL meet the criteria for diagnosis of diabetes.Reference: Standards of Medical Care in Diabetes 2016, [place] Diabetes Association. Diabetes Care. 2016.39(Suppl 1).Performed By: #### 83431-0 ####[facility] LABCLIA [id number] [place], [place] [address]Vzcjdxmjw [Moles/Vol]4.2 mmol/LNormal3.7-5.1CVeterans Health Administration on above: Order Comment: Specimen Type: BLOOD SPECIMENOrdering Facility: [facility] Address:[address] [place], [place] [address]Performed By: #### 56132- 8 ####[facility] LABCLIA [id number] [place], [place] [address]Zkvurya [Mass/Vol]5.9 g/dLLow6.3-8.0[facility] on above:Order Comment: Specimen Type: BLOOD SPECIMENOrdering Facility: [facility] Address:[address] [place], [place] [address]Performed By: #### 07469-4 ####[facility] LABCLIA [id number] [place], [place] [address]Sfjwlr [Moles/Vol]136 mmol/L Yrztcp677-715JhjkrzctoMount Carmel Health System on above:Order Comment: Specimen Type: BLOOD SPECIMENOrdering Facility: [facility] Address:[address] [place], [place] [address]Performed By: #### 64166-4 ####[facility] LABCLIA [id number] [place] [address] Urea nitrogen [Mass/Vol]26 mg/dLHigh7-21[facility] on above:Order Comment: Specimen Type: BLOOD SPECIMENOrdering Facility: [facility] Address:[address] [place], [place] [address]Performed By: #### 18905-1 ####[facility] LABIA [id number] [place], [place] [address]Jgkiivezra Jones 11-52-8253Orzzlnhi [Mass/Vol]2.1 ug/dLLow4.8-19.5CVeterans Health Administration on above:Order Comment: Specimen Type: BLOOD SPECIMENOrdering Facility: [facility] Address:[address] [place], [place] [address]Result Comment: Provided reference range is from 6-10 AM sample collection time.Cortisol Reference Range: 6-10 AM = 4.8-19.5 ug/dL, 4-8 PM = 2.5-11.9 ug/dLPerformed By: #### 3016-3, 2143-6 ####[facility] LABCLIA [id number] [place] [address] [place] HFNCOUAAkF1u (Bld)on 52-35-1692Xsjwnqp glucose Estimated from glycated hemoglobin (Bld) [Mass/Vol]105 mg/dLNormal [facility] on above:Order Comment: Specimen Type: BLOOD SPECIMENOrdering Facility: [facility] Address:[address] [place], [place] [address]Result Comment: eAG: (Estimated average glucose) is a calculated value from HgbA1c and is insurance sales representative of the average blood glucose level in the last 2-3 month period.Performed By: #### 12325-9 ####[facility] LABCLIA [id number] [place] [address] [place] UOYRTFIKlN7g (Bld) [Mass fraction]5.3 %Normal4.3-5.6 [facility] on above:Order Comment: Specimen Type: BLOOD SPECIMENOrdering Facility: [facility] Address:[address] [place] [address]Lrbvri Comment: [place] Diabetes Association guidelines indicate that patients with HgbA1c in the range 5.7-6.4% are at increased risk for development of diabetes, and intervention by lifestyle modification may be beneficial. HgbA1c greater or equal to 6.5% is considered diagnostic of diabetes.Performed By: #### 69226-4 ####[facility] LABCLIA [id number] [place] [address] [place] TSH SerPl-aCncon 82-28-5681VVP Qn0.802 m[IU]/LNormal0.270-4.200[facility]an Private HospitalComment on above:Order Comment: Specimen Type: BLOOD SPECIMENOrdering Facility: [facility] Address:[address] [place], [place] [address]Performed By: #### 3016-3, 2143-6 ####[facility] LABCLIA [id number] [place] [address] [place] CNOVon 29-94-4722VVITXxcmqgIncqvzxxg Clinic ClevelandCT BRAIN STEREOLOCAL WO IVCONon 35-60-1874KN BRAIN STEREOLOCAL WO IVCONNormalKeenan Private Hospital CT Guidance for stereotactic biopsy of Head-- WO contraston 02-19-2024 IMPRESSION: Stereotactic localization examination. Government Services Professional: ABELINO Transcribe Date/Time: Feb 19 2024 8:39A Dictated by : NESTOR TEE MD This examination was interpreted and the report reviewed and electronically signed by: LULU SILVA MD on Feb 19 2024 8:46AM [facility] DIVISION OF RADIOLOGY* * *Final Report* * * DATE OF [...] sphenoid sinuses. Small mastoid effusions. DIVISION OF RADIOLOGYProvider, [facility] [place] - 02/19/2024 * * *Final Report* * [...] mastoid effusions. IMPRESSION IMPRESSION: Stereotactic localization examination. Government Services Professional: ABELINO Transcribe Date/Time: Feb 19 2024 8:39A Dictated by : NESTOR TEE MD This examination was interpreted and the report reviewed and electronically signed by: LULU SILVA MD on Feb 19 2024 8:46AM EST [facility] Guidance for stereotactic biopsy of Head-- WO contrastOrdered By: Ccf Provider on 52-23-5372Rsihxkzyt ClinicMR Guidance for stereotactic localization of Brain-- W contrast Jaz 02-19-2024* * *Final Report* * * DATE OF [...] orbits. Unremarkable extracranial soft tissues. DIVISION OF RADIOLOGYProvider, [facility] [place] - 02/19/2024 * * *Final Report* * [...] soft tissues. IMPRESSION IMPRESSION: Preprocedure localization examination. Government Services Professional: ABELINO Transcribe Date/Time: Feb 19 2024 8:18A Dictated by : NESTOR TEE MD This examination was interpreted and the report reviewed and electronically signed by: LULU SILVA MD on Feb 19 2024 8:32AM EST [facility] HospitalMR Guidance for stereotactic localization of Brain-- W contrast IVOrdered By: Ccf Provider on 03-49-2592Caoqrvqrf ClinicMRI BRAIN LOCAL W IVCON on 85-18-2474TUN BRAIN LOCAL W IVCONNormalKeenan Private HospitalNo Panel Informationon 77-77-6455Ljvdiqkub Study observation (narrative)[facility] OPERATIVE NOon 45-13-0383HZRRVEIEZ NONormalKeenan Private HospitalCNPNon 55-77-9780GZVKLlownrCusxdiyon Clinic ClevelandCNOVon 05-37-6105VTREOxausk [facility]an Private HospitalCB W Auto Differential panel (Bld)on 02-07-2024 Basophils (Bld) [#/Vol]NINFCleveland ClinicBasophils/100 WBC (Bld)0.1 %[facility] HospitalDifferential cell count method Nom (Bld)AutoCleveland ClinicEosinophils (Bld) [#/Vol]NINFCleveland ClinicEosinophils/100 WBC (Bld)0.2 %[facility] Erythrocyte distribution width (RBC) [Ratio]13.2 %11.5 - 15.0 %[facility] Hematocrit (Bld) [Volume fraction]38.5 %36.0 - 46.0 %[facility] HospitalHemoglobin (Bld) [Mass/Vol]13.1 g/dL11.5 - 15.5 g/dLSuburban Community Hospital & Brentwood HospitalImmature granulocytes (Bld) [#/Vol]0.20 10*3/uLHighNINFSuburban Community Hospital & Brentwood HospitalImmature granulocytes/100 WBC (Bld)1.7 %[facility] HospitalInterpretation and review of laboratory results AbnormalSuburban Community Hospital & Brentwood HospitalLymphocytes (Bld) [#/Vol]0.49 10*3/uLLowSuburban Community Hospital & [facility] Lymphocytes/100 WBC (Bld)4.3 %[facility] HospitalH (RBC) [Entitic mass]37.4 pg High26.0 - 34.0 pgCJ.W. Ruby Memorial HospitalHC (RBC) [Mass/Vol]34.0 g/dL30.5 - 36.0 g/dL [facility] HospitalV (RBC) [Entitic vol]110.0 zNHsmv26.0 - 100.0 fLCGalion Community HospitalMonocytes (Bld) [#/Vol]0.39 10*3/uLNINFSuburban Community Hospital & Brentwood HospitalMonocytes/100 WBC (Bld)3.4 %[facility] HospitalNeutrophils (Bld) [#/Vol]10.32 10*3/uLHighSuburban Community Hospital & Brentwood HospitalNeutrophils/100 WBC (Bld)90.3 %[facility] HospitalNucleated RBC (Bld) [#/Vol] NINFCleveland Shriners Children'S Twin CitiesNucleated RBC/100 WBC (Bld) [Ratio]0.0 %/100 WBCSuburban Community Hospital & Brentwood HospitalPlatelet mean volume (Bld) [Entitic vol]9.5 fL9.0 - 12.7 fLCcleveland clinic hillcrest hospital ClinicPlatelets (Bld) [#/Vol]241 10*3/uLHerculaneum ClinicRBC (Bld) [#/Vol]3.50 10*6/uLLow3.90 - 5.20 m/uLSuburban Community Hospital & Brentwood HospitalWBC (Bld) [#/Vol]11.43 10*3/uLHigh [facility] ClinicBasophils (Bld) [#/Vol]10*3/uLNormal<0.11 [facility] on above:Order Comment: Specimen Type: BLOOD SPECIMENOrdering Facility: [facility] Address:[address] [place], [place] [address]Performed By: #### 91459-1 ####[facility] LABCLIA [id number] [place], [place] [address]Iwzfrcsds/100 WBC (Bld)0.1 %NormalMount Carmel Health System on above:Order Comment: Specimen Type: BLOOD SPECIMENOrdering Facility: [facility] Address:[address] [place], [place] [address]Performed By: #### 33104-0 ####[facility] LABCLIA [id number] [place], [place] [address]Rbmhlpodilqr cell count method Nom (Bld)AutoNormal [facility] on above:Order Comment: Specimen Type: BLOOD SPECIMENOrdering Facility: [facility] Address:[address] [place], [place] [address]Performed By: #### 96711-6 ####[facility] LABCLIA [id number] [place], [place] [address]Dzfafqghcjv (Bld) [#/Vol]10*3/uLNormal<0.46[facility] on above:Order Comment: Specimen Type: BLOOD SPECIMENOrdering Facility: [facility] Address:[address] [place], [place] [address]Performed By: #### 76533- 8 ####[facility] LABCLIA [id number] [place], [place] [address]Cvfdetajfki/100 WBC (Bld)0.2 %NormalMount Carmel Health System on above:Order Comment: Specimen Type: BLOOD SPECIMENOrdering Facility: [facility] Address:[address] [place], [place] [address]Performed By: #### [id number] ####[facility] LABCLIA [id number] [place], [place] [address]Bxpjpdtaezv distribution width (RBC) [Ratio]13.2 %Nbnzwo75.5-15.0[facility] on above: Order Comment: Specimen Type: BLOOD SPECIMENOrdering Facility: [facility] Address:[address] [place], [place] [address]Performed By: #### [id number]- 8 ####[facility] LABCLIA [id number] [place], [place] [address]Ynmkdaxlcj (Bld) [Volume fraction]38.5 %Hmodlx13.0-46.0 [facility] on above:Order Comment: Specimen Type: BLOOD SPECIMENOrdering Facility: [facility] Address:[address] [place], [place] [address]Performed By: #### 16690-4 ####[facility] LABIA [id number] [place], [place] [address]Hyyiovohye (Bld) [Mass/Vol]13.1 g/kYPpfwqb28.5-15.5CVeterans Health Administration on above: Order Comment: Specimen Type: BLOOD SPECIMENOrdering Facility: [facility] Address:[address] [place], [place] [address]Performed By: #### 39827- 8 ####[facility] LABIA [id number] [place], [place] [address]Gdmooqhn granulocytes (Bld) [#/Vol]0.20 10*3/uLHigh<0.10 [facility] on above:Order Comment: Specimen Type: BLOOD SPECIMENOrdering Facility: [facility] Address:[address] [place], [place] [address]Performed By: #### 58657-3 ####[facility] LABIA [id number] [place], [place] [address]Ndhnknba granulocytes/100 WBC (Bld)1.7 %NormalMount Carmel Health System on above: Order Comment: Specimen Type: BLOOD SPECIMENOrdering Facility: [facility] Address:[address] [place], [place] [address]Performed By: #### 26040- 8 ####[facility] LABCLIA [id number] [place], [place] [address]Uhulbnivrqf (Bld) [#/Vol]0.49 10*3/uLLow1.00-4.00 [facility] on above:Order Comment: Specimen Type: BLOOD SPECIMENOrdering Facility: [facility] Address:[address] [place], [place] [address]Performed By: #### 86640-2 ####[facility] LABCLIA [id number] [place], [place] [address]Iqzluucmhez/100 WBC (Bld)4.3 %NormalMount Carmel Health System on above:Order Comment: Specimen Type: BLOOD SPECIMENOrdering Facility: [facility] Address:[address] [place], [place] [address]Performed By: #### 70027-5 ####[facility] LABCLIA [id number] [place], [place] [address]MGR (RBC) [Entitic mass]37.4 rxLhuf51.0-34.0[facility] on above:Order Comment: Specimen Type: BLOOD SPECIMENOrdering Facility: [facility] Address:[address] [place], [place] [address]Performed By: #### 06608-2 ####[facility] LABCLIA [id number] [place], [place] [address]OCIW (RBC) [Mass/Vol]34.0 g/bSYgtdao69.5-36.0[facility] on above: Order Comment: Specimen Type: BLOOD SPECIMENOrdering Facility: [facility] Address:[address] [place], [place] [address]Performed By: #### 06131- 8 ####[facility] LABCLIA [id number] [place], [place] [address]ARS (RBC) [Entitic vol]110.0 hQNiek87.0-100.0[facility] on above:Order Comment: Specimen Type: BLOOD SPECIMENOrdering Facility: [facility] Address:[address] [place], [place] [address]Performed By: #### 77605-7 ####[facility] LABCLIA [id number] [place], [place] [address]Yytnqcpiv (Bld) [#/Vol]0.39 10*3/uLNormal<0.87[facility] on above:Order Comment: Specimen Type: BLOOD SPECIMENOrdering Facility: [facility] Address:[address] [place], [place] [address]Performed By: #### 50212- 8 ####[facility] LABCLIA [id number] [place], [place] [address]Rcclhhkps/100 WBC (Bld)3.4 %NormalMount Carmel Health System on above:Order Comment: Specimen Type: BLOOD SPECIMENOrdering Facility: [facility] Address:[address] [place], [place] [address]Performed By: #### 71060-2 ####[facility] LABCLIA [id number] [place], [place] [address]Juszxnsssdm (Bld) [#/Vol]10.32 10*3/uLHigh1.45-7.50[facility] on above:Order Comment: Specimen Type: BLOOD SPECIMENOrdering Facility: [facility] Address:[address] [place], [place] [address]Performed By: #### 63489-2 ####[facility] LABCLIA [id number] [place], [place] [address]Gmgxbpdbsmi/100 WBC (Bld)90.3 %NormalMount Carmel Health System on above:Order Comment: Specimen Type: BLOOD SPECIMENOrdering Facility: [facility] Address:[address] [place], [place] [address]Performed By: #### 06345-5 ####[facility] LABCLIA [id number] [place], [place] [address]Yrqkqvwbn RBC (Bld) [#/Vol] 10*3/uLNormal<0.01[facility] on above:Order Comment: Specimen Type: BLOOD SPECIMENOrdering Facility: [facility] Address:[address] [place], [place] [address]Performed By: #### 83600-7 ####[facility] LABCLIA [id number] [place], [place] [address]Qkoftbhoz RBC/100 WBC (Bld) [Ratio]0.0 /100 WBCNormal [facility] on above:Order Comment: Specimen Type: BLOOD SPECIMENOrdering Facility: [facility] Address:[address] [place], [place] [address]Performed By: #### 83169-9 ####[facility] LABCLIA [id number] [place], [place] [address]Pvuteayn mean volume (Bld) [Entitic vol]9.5 fLNormal9.0-12.7CVeterans Health Administration on above:Order Comment: Specimen Type: BLOOD SPECIMENOrdering Facility: [facility] Address:[address] [place] [address] Performed By: #### 60096-9 ####[facility] LABCLIA [id number] [place], [place] [address]Fxtnxqeol (Bld) [#/Vol]241 10*3/iXAqvpyb446-517ZauosrsahMount Carmel Health System on above:Order Comment: Specimen Type: BLOOD SPECIMENOrdering Facility: [facility] Address:[address] [place], [place] [address]Performed By: #### 42564-3 ####[facility] LABCLIA [id number] [place], [place] [address]SOB (Bld) [#/Vol]3.50 10*6/uLLow3.90-5.20[facility] on above:Order Comment: Specimen Type: BLOOD SPECIMENOrdering Facility: [facility] Address:[address] [place], [place] [address]Performed By: #### 69993-8 ####[facility] [id number] [place], [place] [address]NAU (Bld) [#/Vol]11.43 10*3/uL High3.70-11.00[facility] on above:Order Comment: Specimen Type: BLOOD SPECIMENOrdering Facility: [facility] Address:[address] [place], [place] [address]Performed By: #### 68034-5 ####[facility] [id number] [place] [address] CNOVSPon 61-62-7242VWOYLYYzqrenKbhpvzoyw [facility] HospitalComprehensive metabolic 2000 panelon 40-08-4035Tmpoiem [Mass/Vol]4.4 g/dL3.9 - 4.9 g/dLSuburban Community Hospital & [facility] ALP [Catalytic activity/Vol]93 U/L34 - 123 U/LCleveland ClinicALT [Catalytic activity/Vol]16 U/L7 - 38 U/LCleveland ClinicAnion gap [Moles/Vol]11 mmol/L8 - 15 mmol/LCleveland ClinicAST [Catalytic activity/Vol]14 U/L13 - 35 U/LCleveland ClinicBilirubin [Mass/Vol]0.3 mg/dL0.2 - 1.3 mg/dLHerculaneum ClinicCalcium [Mass/Vol]9.6 mg/dL8.5 - 10.2 mg/dLHerculaneum ClinicChloride [Moles/Vol]94 mmol/L Low98 - 107 mmol/LCleveland ClinicCO2 [Moles/Vol]28 mmol/L22 - 30 mmol/L [facility] HospitalCreatinine [Mass/Vol]0.57 mg/dLLow0.58 - 0.96 mg/dLSuburban Community Hospital & Brentwood HospitalGFR/1.73 sq M.predicted among non-blacks MDRD (S/P/Bld) [Vol rate/Area]104 mL/min/{1.73_m2}- PINOhio State University [facility] on above:Estimated Glomerular Filtration Rate (eGFR) is calculated using the 2020 CKD-EPI creatinine equation. This equation utilizes serum creatinine, sex, and age as parameters. The creatinine assay has traceable calibration to isotope dilution-mass spectrometry. Refer to KDIGO guidelines for clinical interpretation. In patients with unstable renal function, e.g. those with acute kidney injury, the eGFRmay not accurately reflect actual GFR.Glucose [Mass/Vol]144 mg/dMEmud85 - 99 mg/dL [facility] on above:The [place] Diabetes Association (ADA) provides guidance for cutoff values for fasting glucose andrandom glucose. The ADA defines fasting as no caloric intake for at least 8 hours. Fasting plasma gl ucose results between 100 to 125 mg/dL indicate [...] Standards of Medical Care in Diabetes 2016, [place] Diabetes Association. Diabetes Care. 2016.39(Suppl 1). Interpretation and review of laboratory resultsAbnormalCleveland ClinicPotassium [Moles/Vol]4.4 mmol/L3.7 - 5.1 mmol/LCcleveland clinic hillcrest hospital ClinicProtein [Mass/Vol]6.7 g/dL 6.3 - 8.0 g/dLHerculaneum ClinicSodium [Moles/Vol]133 mmol/FFqr291 - 144 mmol/L [facility] Brent[facility] HospitalUrea nitrogen [Mass/Vol]26 mg/dLHigh7 - 21 mg/dLKeenan Private Hospital ClinicAlbumin [Mass/Vol]4.4 g/dLNormal3.9-4.9CVeterans Health Administration on above:Order Comment: Specimen Type: BLOOD SPECIMENOrdering Facility: [facility] Address:[address]ITALMEREDITH [place] [id number] By: #### 45929-4 ####[facility] LABCLIA [id number] [place], [place] [address]WVZ [Catalytic activity/Vol]93 U/IZlxdwc92-709QurgkttdrMount Carmel Health System on above:Order Comment: Specimen Type: BLOOD SPECIMENOrdering Facility: [facility] Address:[address] [place], [place] [address]Performed By: #### 40219-4 ####[facility] LABCLIA [id number] [place] [address]BGO [Catalytic activity/Vol]16 U/LNormal7-38[facility] on above:Order Comment: Specimen Type: BLOOD SPECIMENOrdering Facility: [facility] Address:[address] [place], [place] [address]Performed By: #### 90383-1 ####[facility] LABCLIA [id number] [place], [place] [address]Jaqot gap [Moles/Vol]11 mmol/LNormal8-15[facility] on above:Order Comment: Specimen Type: BLOOD SPECIMENOrdering Facility: [facility] Address:[address] [place], [place] [address]Performed By: #### 09310- 8 ####[facility] LABCLIA [id number] [place] TURCIOSWINSLOW [facility] [address]BMV [Catalytic activity/Vol]14 U/LZhlnkm46-07ClggzxzdnMount Carmel Health System on above:Order Comment: Specimen Type: BLOOD SPECIMENOrdering Facility: [facility] Address:[address] [place], [place] [address]Performed By: #### 24116-1 ####[facility] LABCLIA [id number] [place] HERRERAWINSLOW INDIAN HEALTHCARE CENTERELIZABETHALB[place], [place] [address]Yvyudqwcu [Mass/Vol]0.3 mg/dLNormal0.2-1.3CVeterans Health Administration on above:Order Comment: Specimen Type: BLOOD SPECIMENOrdering Facility: [facility] Address:[address] [place], [place] [address]Performed By: #### 05712- 8 ####[facility] LABCLIA [id number] [facility] [place] [address]Ijnlxpb [Mass/Vol]9.6 mg/dLNormal8.5-10.2CVeterans Health Administration on above:Order Comment: Specimen Type: BLOOD SPECIMENOrdering Facility: [facility] Address:[address] [place], [place] [address]Performed By: #### 09143-3 ####[facility] LABCLIA [id number] [place], [place] [address]Tymvsqfn [Moles/Vol]94 mmol/L Oag85-091SlgzjouzaMount Carmel Health System on above:Order Comment: Specimen Type: BLOOD SPECIMENOrdering Facility: [facility] Address:[address] [place], [place] [address]Performed By: #### 51908-5 ####[facility] LABCLIA [id number] [place] [address] CO2 [Moles/Vol]28 mmol/XOeowoq62-45FjnwmyikkMount Carmel Health System on above: Order Comment: Specimen Type: BLOOD SPECIMENOrdering Facility: [facility] Address:[address] [place], [place] [address]Performed By: #### 69076- 8 ####[facility] LABCLIA [id number] [facility] [place] [place], [place] [address]Rbanlpuxto [Mass/Vol]0.57 mg/dLLow0.58-0.96[facility] on above:Order Comment: Specimen Type: BLOOD SPECIMENOrdering Facility: [facility] Address:[address] [place], [place] [address]Performed By: #### 25218-8 ####[facility] LABCLIA [id number] [place], [place] [address]Ckvjwsndbt and Glomerular filtration rate.predicted panel (S/P/Bld)104 mL/min/1.73m???Normal >=60[facility] on above:Order Comment: Specimen Type: BLOOD SPECIMENOrdering Facility: [facility] Address:[address] [place] [address]Skaosb Comment: Estimated Glomerular Filtration Rate (eGFR) is calculated using the 2020 CKD-EPI creatinine equation. This equation utilizes serum creatinine, sex, and age as parameters. The creatinine assay has traceable calibration to isotope dilution-mass spectrometry. Refer to KDIGO guidelines for clinical interpretation. In patients with unstable renal function, e.g. those with acute kidney injury, the eGFR may not accurately reflect actual GFR.Performed By: #### 41217-1 ####[facility] LABCLIA [id number] [place], [place] [address]Gclouqv [Mass/Vol]144 mg/dYQqov56-56CbuvqkrpaMount Carmel Health System on above:Order Comment: Specimen Type: BLOOD SPECIMENOrdering Facility: [facility] Address:[address] [place] [address]Ogxbyq Comment: The [place] Diabetes Association (ADA) provides guidance for cutoff values for fast ing glucose and random glucose. The ADA defines fasting as no caloric intake for at least 8 hours. Fasting plasma glucose results between 100 to 125 mg/dL indicate increased risk for diabetes (prediabetes).Fasting plasma glucose results greater than or equal to 126 mg/dL meet the criteria for diagnosis of diabetes. In the absence of unequivocal hyperglycemia, results should be confirmed by repeattesting. In a patient with classic symptoms of hyperglycemia or hyperglycemic crisis, random plasmaglucose results greater than or equal to 200 mg/dL meet the criteria for diagnosis of diabetes.Reference: Standards of Medical Care in Diabetes 2016, [place] Diabetes Association. Diabetes Care. 2016.39(Suppl 1).Performed By: #### 75588-6 ####[facility] LABCLIA [id number] [place], [place] [address]Fvkwzcxxb [Moles/Vol]4.4 mmol/LNormal3.7-5.1CVeterans Health Administration on above: Order Comment: Specimen Type: BLOOD SPECIMENOrdering Facility: [facility] Address:[address] [place], [place] [address]Performed By: #### 55910- 8 ####[facility] LABCLIA [id number] [place], [place] [address]Sojhbrl [Mass/Vol]6.7 g/dLNormal6.3-8.0[facility] on above:Order Comment: Specimen Type: BLOOD SPECIMENOrdering Facility: [facility] Address:[address] [place], [place] [address]Performed By: #### 30848-7 ####[facility] LABCLIA [id number] [place], [place] [address]Nodecw [Moles/Vol]133 mmol/LLow 136-144[facility] on above:Order Comment: Specimen Type: BLOOD SPECIMENOrdering Facility: [facility] Address:[address] [place], [place] [address]Performed By: #### 29362-9 ####[facility] LABCLIA [id number] [place], [place] [address]Wprg nitrogen [Mass/Vol]26 mg/dLHigh7-21[facility] on above: Order Comment: Specimen Type: BLOOD SPECIMENOrdering Facility: [facility] Address:[address] [place], [place] [address]Performed By: #### 83441- 8 ####[facility] LABCLIA [id number] [place], [place] [address]Fsjebn SerPl-mCncon 65-32-2195Gjpuilqe [Mass/Vol]2.5 ug/dLLow4.8-19.5CVeterans Health Administration on above:Order Comment: Specimen Type: BLOOD SPECIMENOrdering Facility: [facility] Address:[address] [place], [place] [address]Result Comment: Provided reference range is from 6-10 AM sample collection time.Cortisol Reference Range: 6-10 AM = 4.8-19.5 ug/dL, 4-8 PM = 2.5-11.9 ug/dLPerformed By: #### 3016-3, 6 ####[facility] LABIA [id number] [address] STATES OF EJTFWOMEmH0w (Bld)on 50-67-1326Vbnsjbg glucose Estimated from glycated hemoglobin (Bld) [Mass/Vol]91 mg/dLNormal [facility] on above:Order Comment: Specimen Type: BLOOD SPECIMENOrdering Facility: [facility] Address:[address] [place], [place] [address]Result Comment: eAG: (Estimated average glucose) is a calculated value from HgbA1c and is insurance sales representative of the average blood glucose level in the last 2-3 month period.Performed By: #### 06971-2 ####[facility] [id number] [address] STREETHbA1c (Bld) [Mass fraction]4.8 %Normal4.3-5.6 [facility] on above:Order Comment: Specimen Type: BLOOD SPECIMENOrdering Facility: [facility] Address:[address] [place], [place] [address]Result Comment: [place] Diabetes Association guidelines indicate that patients with HgbA1c in the range 5.7-6.4% are at increased risk for development of diabetes, and intervention by lifestyle modification may be beneficial. HgbA1c greater or equal to 6.5% is considered diagnostic of diabetes.Performed By: #### 92204-2 ####[facility]ITALIA [id number] [place] [id number] [place] TSH SerPl-aCncon 09-52-2739MTY Qn0.696 m[IU]/LNormal0.270-4.200[facility] on above:Order Comment: Specimen Type: BLOOD SPECIMENOrdering Facility: [facility] Address:[address] [place], [place] [address]Performed By: #### 3016-3, 2142-08 ####[facility] LABCLIA [id number] [address] [place] [place] [id number] [place] CNPNon 35-29-6280JTPJRhtchaMtllhhiyg Clinic ClevelandCNPNon 67-15-9034HRACKjwavs Keenan Private HospitalCNPNon 44-91-0045CHVYQkyzgnMjfxobhpo Clinic Cleveland CNPNon 09-88-0475BPVCSxzyydBsybzilch Clinic ClevelandCNOVSPon 92-33-0085ZDCUCU NormalKeenan Private HospitalGLUCOSE, BLOOD (POC)on 92-62-6785Dhujdhx [Mass/Vol]96 mg/dL74 - 99 mg/dLSuburban Community Hospital & Brentwood HospitalComment on above: Location:[facility], [address] [place] [address] , [place], [place], [address] The Accu-Chek Inform II glucose meter has [...] blood gas instrument) in the above situations. [facility] PET/CT SKULL-THIGH SUBQon 45-74-8050FX PET/CT SKULL-THIGH SUBQNormalCBrecksville VA [facility] Abdomen and Pelvis W contrast Jaz 49-63-4971COKBVEMUBQ: 1. No evidence of metastatic disease in [...] any questions regarding this interpretation, please call [phone]. If you are unable to reach us at the number above, please feel free to contact [facility] eRadiology at [phone].DIVISION OF RADIOLOGY* * *Final Report* * * DATE OF EXAM: Sep 28 2023 8:48AM [facility] 0530 - CT ABD/PEL W IVCON / [...] Localizer images: No additional findings. DIVISION OF RADIOLOGYProvider, [facility] [place] - 09/28/2023 * * *Final Report* * * DATE OF EXAM: Sep 28 2023 8:48AM [facility] 0530 - CT ABD/PEL W IVCON / [...] any questions regarding this interpretation, please call [phone]. If you are unable to reach us at the number above, please feel free to contact [facility] eRadiology at [phone]. [facility] Chest W contrast Jaz 05-38-3746ISKTFQXXWC: 1. Stable appearance of posttreatment change/treated neoplasm [...] any questions regarding this interpretation, please call [phone]. If you are unable to reach us at the number above, please feel free to contact [facility] Hospital[facility] at [phone].DIVISION OF RADIOLOGY* * *Final Report* * * DATE OF EXAM: Sep 28 2023 8:48AM [facility] 0539 - CT CHEST W IVCON / [...] Localizer images: No additional findings. DIVISION OF RADIOLOGYProvider, [facility] [place] - 09/28/2023 * * *Final Report* * * DATE OF EXAM: Sep 28 2023 8:48AM [facility] 0539 - CT CHEST W IVCON / [...] any questions regarding this interpretation, please call [phone]. If you are unable to reach us at the number above, please feel free to contact [facility] eRadiology at [phone]. [facility] Chest W contrast IVOrdered By: Ccf Provider on 09-28-2023 [facility] Brentwood HospitalNo Panel Informationon 21-32-0845Irlesusmd Study observation (narrative)[facility] Brentwood HospitalFERRITINon 01-31-9715Hfxrikhn [Mass/Vol]34.0 ng/mL 14.7 - 205.1 ng/mLClevelfirsthealth moore regional hospital ClinicFerritin [Mass/Vol]on 64-15-7148Khevwmqhnzusje and review of laboratory resultsNormalCOhio Valley Surgical HospitalIron and Iron binding capacity panelon 77-67-3455Dztpeddqpofkdd and review of laboratory resultsAbnormalCcleveland clinic hillcrest hospital ClinicIron [Mass/Vol]40 ug/dLLow41 - 186 ug/dLThe MetroHealth Systemn binding capacity [Mass/Vol]265 ug/dL232 - 386 ug/dLSuburban Community Hospital & [facility] Iron/TIBC [Molar ratio]15.1 %15.0 - 57.0 %[facility] HospitalPET+CT Guidance for localization of tumor of Skull base to mid-thigh-- W 18F-FDG Jaz 17-71-4317EBELVZDLYB: HEAD/NECK: * No FDG avid neoplastic process. [...] any questions regarding this interpretation, please call [phone]. If you are unable to reach us at the number above, please feel free to contact [facility] eRadiology at [phone].DIVISION OF RADIOLOGY* * *Final Report* * * DATE OF [...] * Radiopharmaceutical Dose: 6.9 mCi * Radiopharmaceutical: M83-Ovxxxvcvvsmeylkpgy (FDG) COMPARISON: FDG PET/CT 03/01/2023 CORRELATION: No relevant imaging available RESULT: REFERENCES: SUV reference values: * Background liver activity: SUVmax 1.8; SUVmean 1.5 Supervisor Cartography (topogram) images: No additional findings. Notes and [...] Soft Tissues: No abnormal uptake. DIVISION OF RADIOLOGYProvider, [facility] [place] - 06/15/2023 * * *Final Report* * [...] * Radiopharmaceutical Dose: 6.9 mCi * Radiopharmaceutical: O37-Ewrjtdfjomlndnznst (FDG) COMPARISON: FDG PET/CT 03/01/2023 CORRELATION: No relevant imaging available RESULT: REFERENCES: SUV reference values: * Background liver activity: SUVmax 1.8; SUVmean 1.5 Supervisor Cartography (topogram) images: No additional findings. Notes and [...] any questions regarding this interpretation, please call [phone]. If you are unable to reach us at the number above, please feel free to contact [facility] eRadiology at [phone]. [facility] Brentwood HospitalPET+CT Guidance for localization of tumor of Skull base to mid-thigh-- W 18F-FDG IVOrdered By: Ccf Provider on 91-27-8835Anetmtsll Clinic GLUCOSE, BLOOD (POC)on 62-71-1693Kqanbrz [Mass/Vol]132 mg/kWHbmbjbbz02 - 99 mg/dLSuburban Community Hospital & Brentwood HospitalComment on above:Location:[facility], [address] [place] [address] , [place], [place], [facility] The Accu-Chek Inform II glucose meter has [...] above situations. Interpretation and review of laboratory resultsAbnormalCOhio Valley Surgical HospitalPET+CT Guidance for localization of tumor of Skull base to mid-thigh-- W 18F-FDG Jaz 80-87-2876Kehfkjpuq Study observation (narrative)[facility] PET+CT Guidance for localization of tumor of Skull base to mid-thigh-- W 18F-FDG Jaz 62-43-8356MOOPTABNXI: 1. HEAD and NECK: No evidence of [...] any questions regarding this interpretation, please call [phone]. If you are unable to reach us at the number above, please feel free to contact [facility] Hospitaliology at [phone].DIVISION OF RADIOLOGY* * *Final Report* * * DATE OF [...] low dose noncontrast CT scan. DIVISION OF RADIOLOGYProvider, [facility] [place] - 03/02/2023 * * *Final Report* * [...] any questions regarding this interpretation, please call [phone]. If you are unable to reach us at the number above, please feel free to contact [facility] eRadiology at [phone]. [facility] Brentwood HospitalPET+CT Guidance for localization of tumor of Skull base to mid-thigh-- W 18F-FDG IVOrdered By: Ccf Provider on 09-71-5162Cjqnbgjxo Clinic GLUCOSE, BLOOD (POC)on 36-69-4771Kvigqmt [Mass/Vol]112 mg/cQYplxtblu59 - 99 mg/dLSuburban Community Hospital & Brentwood HospitalComment on above:Location:[facility], [address] [place] [address] , [place], [place], [address] The Accu-Chek Inform II glucose meter has [...] above situations. Interpretation and review of laboratory resultsAbnormalCOhio Valley Surgical HospitalPET+CT Guidance for localization of tumor of Skull base to mid-thigh-- W 18F-FDG Jaz 28-88-6777Sworccwbp Study observation (narrative)[facility] CBC W Auto Differential panel (Bld)on 09-29-6717Ztntllfzu (Bld) [#/Vol]0.04 10*3/uL<0.11 k/uLSuburban Community Hospital & Brentwood HospitalBasophils/100 WBC (Bld)0.5 %[facility] Differential cell count method Nom (Bld)AutoCleveland ClinicEosinophils (Bld) [#/Vol]0.12 10*3/uL<0.46 k/uLSuburban Community Hospital & Brentwood HospitalEosinophils/100 WBC (Bld)1.4 % [facility] Brentwood HospitalErythrocyte distribution width (RBC) [Ratio]14.0 %11.5 - 15.0 % [facility] Brentwood HospitalHematocrit (Bld) [Volume fraction]33.7 %Low36.0 - 46.0 % [facility] Brent[facility] HospitalHemoglobin (Bld) [Mass/Vol]10.5 g/dLLow11.5 - 15.5 g/dLSuburban Community Hospital & Brentwood HospitalImmature granulocytes (Bld) [#/Vol]0.08 10*3/uL<0.10 k/uLSuburban Community Hospital & [facility] Immature granulocytes/100 WBC (Bld)0.9 %[facility]wood HospitalLymphocytes (Bld) [#/Vol]1.74 10*3/uL1.00 - 4.00 k/[facility] Toledo Medical CenterLymphocytes/100 WBC (Bld)20.4 %[facility] HospitalH (RBC) [Entitic mass]37.0 rfHuks37.0 - 34.0 pgClevelPipestone County Medical CenterHC (RBC) [Mass/Vol]31.2 g/dL30.5 - 36.0 g/dLBrecksville VA / Crille HospitalV (RBC) [Entitic vol]118.7 rDEkxp78.0 - 100.0 fLCleveland ClinicMonocytes (Bld) [#/Vol] 0.97 10*3/uLHigh<0.87 k/[facility] CenterMonocytes/100 WBC (Bld)11.4 %[facility] HospitalNeutrophils (Bld) [#/Vol]5.57 10*3/uL1.45 - 7.50 k/[facility] Neutrophils/100 WBC (Bld)65.4 %[facility] HospitalNucleated RBC (Bld) [#/Vol]<0.01 k/[facility] Medical CenterNucleated RBC/100 WBC (Bld) [Ratio]0.0 /100 WBCSuburban Community Hospital & Brentwood HospitalPlatelet mean volume (Bld) [Entitic vol]9.1 fL9.0 - 12.7 fLClevelfirsthealth moore regional hospital ClinicPlatelets (Bld) [#/Vol]199 10*3/uL150 - 400 k/[facility] Medical CenterRBC (Bld) [#/Vol]2.84 10*6/uLLow3.90 - 5.20 m/[facility] CenterWBC (Bld) [#/Vol]8.52 10*3/uL3.70 - 11.00 k/[facility] CenterComprehensive metabolic 2000 panelon 58-75-6887Nbxppun [Mass/Vol]3.6 g/dLLow3.9 - 4.9 g/dLHerculaneum ClinicALP [Catalytic activity/Vol]127 U/LHigh34 - 123 U/LCleveland ClinicALT [Catalytic activity/Vol]6 U/LLow7 - 38 U/LCleveland ClinicAnion gap [Moles/Vol]4 mmol/LLow9 - 18 mmol/LCleveland ClinicAST [Catalytic activity/Vol]13 U/L13 - 35 U/L [facility] HospitalBilirubin [Mass/Vol]0.2 mg/dL0.2 - 1.3 mg/dLSuburban Community Hospital & [facility] Calcium [Mass/Vol]8.8 mg/dL8.5 - 10.2 mg/dLSuburban Community Hospital & Brentwood HospitalChloride [Moles/Vol] 106 mmol/LHigh97 - 105 mmol/LCleveland ClinicCO2 [Moles/Vol]27 mmol/L22 - 30 mmol/LCleveland ClinicCreatinine [Mass/Vol]0.64 mg/dL0.58 - 0.96 mg/dLSuburban Community Hospital & Brentwood HospitalEstimated Glomerular Filtration Qamk252 mL/min/1.73m>=60 mL/min/1.73m [facility] HospitalGlucose [Mass/Vol]122 mg/rDFyyb79 - 99 mg/dLSuburban Community Hospital & [facility] Potassium [Moles/Vol]3.8 mmol/L3.7 - 5.1 mmol/LCleveland ClinicProtein [Mass/Vol]5.8 g/dLLow6.3 - 8.0 g/dLSalem City Hospitalodium [Moles/Vol]137 mmol/L 136 - 144 mmol/LCleveland [facility] Children'S Twin CitiesUrea nitrogen [Mass/Vol]14 mg/dL7 - 21 mg/dL [facility] HospitalPET+CT Guidance for localization of tumor of Skull base to mid-thigh-- W 18F-FDG Jaz 03-00-5654RBRFKQETIZ: HEAD/NECK: * No FDG avid neoplastic process. [...] any questions regarding this interpretation, please call [phone]. If you are unable to reach us at the number above, please feel free to contact [facility] Hospitaliology at [phone].DIVISION OF RADIOLOGY* * *Final Report* * * DATE OF [...] - Background liver activity (max SUV): 1.7 Supervisor Cartography (topogram) images: No additional findings. HEAD AND [...] lesion. Multifocal degenerative osseous changes. DIVISION OF RADIOLOGYProvider, [facility] [place] - 01/03/2023 * * *Final Report* * [...] - Background liver activity (max SUV): 1.7 Supervisor Cartography (topogram) images: No additional findings. HEAD AND [...] 2023 10:07A Dictated by: (more content not included)...[facility] HospitalPET+CT Guidance for localization of tumor of Skull base to mid-thigh-- W 18F-FDG IVOrdered By: Ccf Provider on 76-06-0374Kozwbtmgb ClinicGLUCOSE, BLOOD (POC)on 61-22-0010Uhetytv [Mass/Vol]90 mg/dL74 - 99 mg/dLSuburban Community Hospital & Brentwood HospitalComment on above: Location:[facility], [address] [place] [address] , [place], [place], [facility] The Accu-Chek Inform II glucose meter has [...] blood gas instrument) in the above situations. [facility] Brentwood HospitalPET+CT Guidance for localization of tumor of Skull base to mid-thigh-- W 18F-FDG Jaz 79-87-9237Emdprjfdf Study observation (narrative) [facility] Brentwood HospitalXR Chest PA and Lateralon 84-10-0751WXEDFPKDKH: See result. Transcribed Using Voice Recognition Transcribe Date/Time: Nov 24 2022 9:39A Dictated by: AMBER BELTRAN MD This examination was interpreted and the report reviewed and electronically signed by: AMBER BELTRAN MD on Nov 24 2022 9:42AM [facility] RAD[facility]* * *Final Report* * * DATE OF [...] clips are present in the upper abdomen. [facility] RADIOLOGYProvider, [facility] [place] - 11/24/2022 * * *Final Report* * [...] MD on Nov 24 2022 9:42AM EST [facility] Brentwood HospitalXR Chest PA and LateralOrdered By: Ccf Provider on 11-24-2022 [facility] Brentwood HospitalCNOVon 11-86-1159PXELXrpwhc Visit (ANETA) DEBBY HERMOSILLO ([id number]) 1965 F Date Time Provider Department 11/23/22 1:00 PM JOSE RAFAEL FERNANDES During your visit today, we recorded the following information about you: Temperature Pulse Respiration Blood pressure 96.9 degrees 112/minute 18/minute 152/84 Weight Height 36.2 kg 1.524 m Jose Rafael Fernandes APRN.MULTIGRAPH OPERATOR 11/23/2022 4:18 PM Signed [facility] - OUTPATIENT THORACIC SURGERY CLINIC NOTE PT NAME: Debby Hermosillo [facility] NO: [id number] THORACIC SURGEON: Evette Walden M.D. DATE OF SERVICE: 11/23/2022 PRINCIPAL [...] with radiation back in 2017 referred by Otoniel Adhikari MD for an opinion regarding management [...] tube site suture. She has resumed her CONE TENDER suboxone. Denies any SOB, lightheadedness, or dizziness. [...] IS, and increasing aerobic activity as tolerated [facility] KYLEIGH, STEPHANIE Allergies As of Date: 11/23/2022 Noted Allergy Reaction PENICILLINS 01/12/2017 16 - Unknown Date Reviewed: 11/23/2022 Reviewed by: Arabella Holly (more content not included)...NormalNantucket Cottage HospitalXR CHEST 2V FRONTAL/LATon 90-40-9269NO CHEST 2V FRONTAL/LAT* * *Final Report* * * DATE OF [...] MD on Nov 24 2022 9:42AM EST [id number] Medical Center Chest PA and Lateralon 52-45-3234Rnjybynce Study observation (narrative)[facility] CARDIAC PERF STRESS/EXERCISEon 98-81-3346Qsfswpyiv ClinicCT Chest W contrast Jaz 10-31-2022 IMPRESSION: 1. Interval increase in size of [...] any questions regarding this interpretation, please call [phone]. If you are unable to reach us at the number above, please feel free to contact [facility] eRadiology at [phone].DIVISION OF RADIOLOGY* * *Final Report* * * DATE OF EXAM: Oct 31 2022 9:23AM [facility] 0539 - CT CHEST W IVCON / [...] No abnormality in the imaged upper abdomen. Supervisor Cartography (topogram) images: No additional findings. DIVISION OF RADIOLOGYProvider, [facility] [place] - 10/31/2022 * * *Final Report* * * DATE OF EXAM: Oct 31 2022 9:23AM [facility] 0539 - CT CHEST W IVCON / [...] No abnormality in the imaged upper abdomen. Supervisor Cartography (topogram) images: No additional findings. IMPRESSION IMPRESSION: [...] any questions regarding this interpretation, please call [phone]. If you are unable to reach us at the number above, please feel free to contact [facility] eRadiology at [phone]. [facility] Brent[facility] HospitalRadiology Study observation (narrative)[facility] Chest W contrast IVOrdered By: Ccf Provider on 37-34-4683Pkyghiqyv ClinicCNOVon 37-28-7829MTDPRmoncn Visit (ANETA) DEBBY HERMOSILLO ([id number]) 1965 F Date Time Provider Department 09/21/22 3:00 PM EVETTE WALDEN During your visit today, we recorded the following information about you: Temperature Pulse Respiration Blood pressure 97.6 degrees 66/minute 22/minute 153/69 Weight Height 37.3 kg 1.524 m Evette Walden MD 09/21/2022 4:46 PM Signed [facility] THORACIC SURGERY OUTPATIENT CONSULT NOTE Debby Hermosillo [id number] Requesting Provider: Otoniel Adhikari MD Thoracic Physician: Evette Walden MD Chief Complaint: New RLL nodule in setting of 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 [facility] STAFF PHYSICIAN NOTE OF PERSONAL [...] management of the patient's care. STAFF PHYSICIAN: Evette Walden MD DATE OF SERVICE: September 21, 2022 TIME OF SERVICE: 4:39 PM Impression: Dbeby Hermosillo is a 57 year old White female with PMH of Stage II combined small cell and SCC of the RUL treated with 5 cycles of carboplatin and topside combined with radiation back in 2018 referred by Otoniel Adhikari MD for an opinion regarding management [...] with radiation back in 2018 referred by Otoniel Adhikari MD for an opinion regarding management [...] 6 months? saw neurologist (Dr. Hearn- In [facility]); possible MS? Osteoporosis Pneumonia 06/2016 AND 12/2016 Small cell lung cancer in adult (HCC) 02/17/2017 Combined small cell carcinoma and squamous cell carcinoma with extensive necrosis PAST SURGICAL HISTORY: PAST SURGICAL HISTORY Procedure Laterality Date CARPAL TUNNEL CHOLECYSTECTOMY HX COLONOSCOPY HYSTERECTOMY HX NOSE SURGERY HX FRACTURE PAST SURGICAL HISTORY OF CONE BIOPSY 198 (more content not included)...NormalHillcrest HospitalLUNG DIFFUSION CAPACITY (DLCO)on 75-75-7375ZICG (ml/min/mmHg)11.80 ml/min/mmHg [facility] Brentwood HospitalDLCO/VA (ml/min/mmHg/L)2.35 ml/min/mmHg/LCleveland JlubmdZWN31- 75% PRE (L/S)1.48 L/SCleveland ClinicFEV1 PRE (L)2.16 LCleveland ClinicFEV1/FVC PRE (%)70 %[facility] Brentwood HospitalFVC PRE (L)3.07 LClevelfirsthealth moore regional hospital ClinicPEF PRE (L/S)4.04 L/SCleveland ClinicVA (L)5.03 LCmercy health perrysburg hospitaland ClinicSPIROMETRY WITH DILATOR IF OBSTRUCTEDon 84-36-7965Fzxszdoqj [facility] Twin CitiesMRI BRAIN WO/W IVCONon 09-17-2022 [facility] Brentwood HospitalBRONCHOSCOPYon 60-64-0104Elgcaxzbe ClinicCT Chest WO contraston 76-94-6484ATGANDIEXH: 1. Few small groundglass and solid pulmonary [...] any questions regarding this interpretation, please call [phone]. If you are unable to reach us at the number above, please feel free to contact [facility] eRadiology at [phone].DIVISION OF RADIOLOGY* * *Final Report* * * DATE OF EXAM: Aug 05 2022 8:03AM [facility] 0541 - CT CHEST WO IVCON / [...] is moderate calcification of the abdominal aorta. Supervisor Cartography (topogram) images: No additional findings. - DIVISION OF RADIOLOGYProvider, [facility] [place] - 08/05/2022 * * *Final Report* * * DATE OF EXAM: Aug 05 2022 8:03AM [facility] 0541 - CT CHEST WO IVCON / [...] is moderate calcification of the abdominal aorta. Supervisor Cartography (topogram) images: No additional findings. - IMPRESSION [...] any questions regarding this interpretation, please call [phone]. If you are unable to reach us at the number above, please feel free to contact [facility] eRadiology at [phone]. [facility] Brent[facility] HospitalRadiology Study observation (narrative)[facility] Chest WO contrastOrdered By: Ccf Provider on 30-96-3453Phyoefoot ClinicGLUCOSE, BLOOD (POC)on 63-14-4905Ihmzsxu [Mass/Vol]129 mg/tJLtwsobnk56 - 99 mg/dLSuburban Community Hospital & Brentwood HospitalComment on above:Location:[facility], [address] [place] [address] , [place], [place], [address] The Accu-Chek Inform II glucose meter has [...] above situations. Interpretation and review of laboratory resultsAbnormalCOhio Valley Surgical HospitalPET+CT Guidance for localization of tumor of Skull base to mid-thigh-- W 18F-FDG Jaz 78-59-3008NVUPINBJHL: 1. Neck: No suspicious hypermetabolic foci 2. [...] any questions regarding this interpretation, please call [phone]. If you are unable to reach us at the number above, please feel free to contact [facility] eRadiology at [phone].DIVISION OF RADIOLOGY* * *Final Report* * * DATE OF [...] SKELETON: There are no hypermetabolic osseous lesions. Supervisor Cartography (topogram) images:No additional findings. DIVISION OF RADIOLOGYProvider, [facility] [place] - 07/15/2022 * * *Final Report* * [...] SKELETON: There are no hypermetabolic osseous lesions. Supervisor Cartography (topogram) images:No additional findings. IMPRESSION IMPRESSION: 1. [...] any questions regarding this interpretation, please call [phone]. If you are unable to reach us at the number above, please feel free to contact [facility] eRadiology at [phone]. [facility] Brent[facility] HospitalRadiology Study observation (narrative)[facility] HospitalT+CT Guidance for localization of tumor of Skull base to mid-thigh-- W 18F-FDG IV Ordered By: Ccf Provider on 08-17-5992Ydrzoouff ClinicMRI BRAIN WO W CONon 15-31-2781RKU BRAIN WO W CONEXAMINATION: MRI BRAIN WO W CON HISTORY: Primary malignant neoplasm [...] Electronically authenticated by: SARA KIDD Date: 2022-07-08 07:19German HospitalCT Chest W contrast Jaz 56-38-9042RPYFBWDFFB: 1. New mild reticulonodular opacities in the [...] any questions regarding this interpretation, please call [phone]. If you are unable to reach us at the number above, please feel free to contact [facility] Hospitaliology at [phone].DIVISION OF RADIOLOGY* * *Final Report* * * DATE OF EXAM: Jun 23 2022 10:27AM [facility] 0539 - CT CHEST W IVCON / [...] Mild intrahepatic biliary ductal dilatation. DIVISION OF RADIOLOGYProvider, [facility] [place] - 06/23/2022 * * *Final Report* * * DATE OF EXAM: Jun 23 2022 10:27AM [facility] 0539 - CT CHEST W IVCON / [...] Reduction Employed: Automated exposure control (AEC) Comparison: 1/18/23 RESULT: Limitations: None. Lines, tubes, and devices: [...] any questions regarding this interpretation, please call [phone]. If you are unable to reach us at the number above, please feel free to contact [facility] eRadiology at [phone]. [facility] HospitalRadiology Study observation (narrative)[facility] Chest W contrast IVOrdered By: Ccf Provider on 02-13-0388Wbrisbylj ClinicXR SHOULDER RT 2V or >on 97-35-3352OV SHOULDER RT 2V or >EXAM: XR SHOULDER RT 2V or > HISTORY: [...] Electronically authenticated by: REI CHE Date: 2022-05-13 23:08German HospitalCT Abdomen and Pelvis W contrast Jaz 31-39-4129CQHYFTLPVS: 1. No evidence of metastatic disease in [...] any questions regarding this interpretation, please call [phone]. If you are unable to reach us at the number above, please feel free to contact [facility] Hospitaliology at [phone].DIVISION OF RADIOLOGY* * *Final Report* * * DATE OF EXAM: Mar 30 2022 11:41AM [facility] 0530 - CT ABD/PEL W IVCON / [...] chest CT performed will be reported separately. Supervisor Cartography (topogram) images: No additional findings. DIVISION OF RADIOLOGYProvider, [facility] [place] - 03/30/2022 * * *Final Report* * * DATE OF EXAM: Mar 30 2022 11:41AM [facility] 0530 - CT ABD/PEL W IVCON / [...] chest CT performed will be reported separately. Supervisor Cartography (topogram) images: No additional findings. IMPRESSION IMPRESSION: [...] any questions regarding this interpretation, please call [phone]. If you are unable to reach us at the number above, please feel free to contact [facility] eRadiology at [phone]. [facility] Abdomen and Pelvis W contrast IVOrdered By: Ccf Provider on 12-02-2292Akolisxqo ClinicCT Chest W contrast Jaz 50-80-8257CNTAMLOMTY: 1. Interval development of a new 5 [...] any questions regarding this interpretation, please call [phone]. If you are unable to reach us at the number above, please feel free to contact [facility] at [phone].DIVISION OF RADIOLOGY* * *Final Report* * * DATE OF EXAM: Mar 30 2022 11:41AM [facility] 0539 - CT CHEST W IVCON / [...] was performed concurrently and is reported separately. Supervisor Cartography (topogram) images: No additional findings. DIVISION OF RADIOLOGYProvider, [facility] [place] - 03/30/2022 * * *Final Report* * * DATE OF EXAM: Mar 30 2022 11:41AM [facility] 0539 - CT CHEST W IVCON / [...] was performed concurrently and is reported separately. Supervisor Cartography (topogram) images: No additional findings. IMPRESSION IMPRESSION: [...] any questions regarding this interpretation, please call [phone]. If you are unable to reach us at the number above, please feel free to contact [facility] Hospitaliology at [phone]. [facility] Panel Informationon 39-49-8335Cjdfqyaji Study observation (narrative)[facility] URINEon 28-13-0458XZRDDTK URINE Culture Observations: NO GROWTH.NormalThe [facility] Community HospitalComment on above:Performed By: #### CREA, LIPID #### [facility] [address] [address] [address] Martell Coyle RANDOM W/MICROSCOPICon 17-63-5919CJKVMAUHKLAGNQcpoceacPDLO SEENMetrohealth Main Campus Medical CenterComment on above:Performed By: #### UAMIC #### [facility] [address] [address] [address] Martell Shetty Ql (U)Unable to perform testing due to color interference.AbnormalNEGATIVEMetrohealth Main Campus Medical CenterComment on above:Performed By: #### UAMIC #### [facility] [address] [place] [address] Dr. Martell Frost SEENNormalNONE SEENMetrohealth Main Campus Medical CenterComment on above:Performed By: #### UAMIC #### [facility] [address] [address] [address] Martell Arrington (U)CLEARNormalCLEARMetrohealth Main Campus Medical CenterComment on above: Performed By: #### UAMIC #### [facility] [address] [place] [address] Dr. Martell Pinto (U)DK. ORANGEAbnormalYELLOWMetrohealth Main Campus Medical CenterComment on above:Performed By: #### UAMIC #### [facility] [address] [address] [address] Martell Forresterystals LM Nom (Urine sed)NONE SEENNormalNONE SEENMetrohealth Main Campus Medical CenterComment on above:Performed By: #### UAMIC #### [facility] [address] [address] [address] Moura ChangEpithelial cells LM Ql (Urine sed)FEWAbnormalNONE SEEN /RAREThe [facility] Community HospitalComment on above:Performed By: #### UAMIC #### [facility] [address] [address] [address] Martell Moralesose Ql (U)Unable to perform testing due to color interference.AbnormalNEGATIVEMarymount Hospital HospitalComment on above:Performed By: #### UAMIC #### [facility] [address] [address] [address] Martell EppersonHemoglobin Ql (U)Unable to perform testing due to color interference.AbnormalNEGATIVEMarymount Hospital HospitalComment on above:Performed By: #### UAMIC #### [facility] [address] [address] [address] Martell Moffett Ql (U)Unable to perform testing due to color interference.AbnormalNEGATIVEMarymount Hospital HospitalComment on above:Performed By: #### UAMIC #### [facility] [address] [place] [address] Dr. Martell Parsons to perform testing due to color interference. AbnormalNEGATIVEMarymount Hospital HospitalComment on above:Performed By: #### UAMIC #### [facility] [address] [place] [address] Dr. Martell RonquilloCOUSSMALLAbnormalNONE SEENThe [place] HospitalComment on above:Performed By: #### UAMIC #### [facility] [address] [place] [address] Dr. Martell Martineztrite Ql (U)Unable to perform testing due to color interference.AbnormalNEGATIVEMarymount Hospital HospitalComment on above:Performed By: #### UAMIC #### [facility] [address] [place] [address] Dr. Martell Pathak to perform testing due to color interference.Abnormal5-9 The [facility]ranton HospitalComment on above:Performed By: #### UAMIC #### [facility] [address] [place] [address] Dr. Martell EppersonRBCNONE SEENAbnormal0-2The [place] HospitalComment on above: Performed By: #### UAMIC #### [facility] [address] [place] [address] Dr. Martell EppersonSPEC GRAVITY1.831Psuuoh9.005-<=1.025The [facility] Community HospitalComment on above:Performed By: #### UAMIC #### [facility] [address] [address] [address] Martell Coyle PROTEINPrateek to perform testing due to color interference. NormalNEGATIVE/ TRACEThe [facility] Community HospitalComment on above:Performed By: #### UAMIC #### [facility] [address] [address] [address] Martell SagastumeBILINOGENPrateek to perform testing due to color interference. Normal0.2 - 1.0The [facility] Community HospitalComment on above:Performed By: #### UAMIC #### [facility] [address] [address] [address] Martell EppersonWBC2-5AbnormalNONE SEENThe [facility] Community HospitalComment on above: Performed By: #### UAMIC #### [facility] [address] [address] [address] Martell EppersonCT angio neckon 43-51-5938XR angio neckMERCY HEALTH [place] [address] CT Scan Report Signed Patient: Debby Hermosillo MR#: [id number] : 1965 Acct:[id number] Age/Sex: 56 / F ADM Date: 11/30/21 Loc: Room: Type: [facility] Attending Dr: Finn Mejias DO Copies to: Merry Mejias DO Ordering Provider: Merry Mejias DO Date of Service: 11/30/21 CT/CT angio neck: I63.9 ([id number]) CT/CT angio head: I63.9 CT angio head, [...] Seth Hendrickson M.D.11/30/2021 7:10 PM Dictation Location: [place] [address] Transcribed By: DONA 11/30/211909 Dictated By: Seth Hendrickson II, MD 11/30/211846 Signed By: 11/30/211909[facility] Memorial HospitalCreatinine (Bld) [Mass/Vol] Ordered By: Merry Mejias on 32-23-1058Bzkcfewqzi [Mass/Vol]0.9 mg/dL 0.6-1.3FCleveland Clinic Mercy HospitalComment on above:ER/ESD physician is notified/shown all ISTAT results. Critical values may be confirmed by laboratory testing if deemed necessary by ER attending doctor.ECH echo transthoracicon [id number] echo transthoracicMERCY HEALTH [place] [address] Echocardiogram Signed Patient: Debby Hermosillo MR#: [id number] : 1965 Acct:[id number] Age/Sex: 56 / F ADM Date: 11/30/21 Loc: Room: Type: [facility] Attending Dr: Finn Mejias DO Ordering Provider: Merry Mejias DO Date of Service: 11/30/21/ [facility] transthoracic: CVA. Copies to: DO Shun Aponte MD, [facility] Weight: 79 lb Performed By: Ysabel Colunga [facility] BSA: 1.3 m2 BP: 139/74 mmHg HR: [...] 11/30/21 1341 Signed By: Shun Coleman MD, [facility] 11/30/21 1504[facility] HospitalISTAT XRay CREon [id number] [Mass/Vol]0.9 mg/dLNormal 0.6-1.3FCleveland Clinic Mercy HospitalComment on above:Result Comment: ER/ESD physician is notified/shown all ISTAT results. Critical values may be confirmed by laboratory testing if deemed necessary by ER attending doctor.Performed By: #### ISCRE #### [facility] [address] Point of Care testing ,ISTAT GFR (> 60NormalZanesville City HospitalComment on above:Result Comment: GFR estimated reference range: According to KDOQI guidelines, <60 ml/min/1.73m2 is sufficient to diagnose a patient with chronic kidney disease. PERFORMED BY: [place] [address] PATHOLOGIST REAL ESTATE PHOTOGRAPHER KIM FLEMING M.D.Performed By: #### ISCRE #### [address] Point of Care testing ,ISTAT GFR (Non- Am> 60NormKindred Hospital LimaComment on above:Performed By: #### ISCRE #### [facility] [address] [place] [address] Point of Care testing ,No Panel InformationOrdered By: Merry Mejias on 02-01-1501DZE Estimated GFR > 60Zanesville City HospitalComment on above:GFR estimated reference range: According to KDOQI guidelines, <60 ml/min/1.73m2 is sufficient todiagnose a patient with chronic kidney disease.POC Estimated GFR Non- Amer> 60Zanesville City HospitalCREATININEon 11-10-2021 Creatinine [Mass/Vol]0.96 mg/dLNormal0.55-1.02The [facility] HospitalComment on above:Performed By: #### CREA, LIPID #### [facility] [address] [place] [address] Dr. Martell JonesGFR-AF VIETNAMESE>60Normal>=60The [facility] Community HospitalComment on above:Performed By: #### CREA, LIPID #### [facility] [address] [address] [address] Martell JonesGFR-NON AF VIETNAMESE=60Normal>=60The [facility] Community HospitalComment on above:Performed By: #### CREA, LIPID #### [facility] [address] [address] [address] Martell FerrerID PROFILEon [id number]-HDL RATIO NORMSSamaritan HospitalComment on above:Result Comment: 3.3 - 4.4 LOW RISK 4.4 - 7.1 AVERAGE RISK 7.1 - 11.0 MODERATE RISK >11.0 HIGH RISKPerformed By: #### CREA, LIPID #### [facility] [address] [address] [address] Martell EppersonCholesterol [Mass/Vol]250 mg/dLCritically high<=200The [facility] on above:Performed By: #### CREA, LIPID #### [facility] [address] [address] [address] Martell EppersonCholesterol in HDL [Mass/Vol]51 mg/xMTuirnn15-50SvmMetrohealth Main Campus Medical CenterComment on above:Performed By: #### CREA, LIPID #### [facility] [address] [address] [address] Martell EppersonCholesterol in LDL [Mass/Vol]158.2 mg/dLGerman HospitalComtrinity health livonia on above:Performed By: #### CREA, LIPID #### [facility] [address] [address] [address] Martell Contreras.total/Cholesterol in HDL [Mass ratio]4.9 {ratio} NormalC[facility] Clinic [facility] on above:Performed By: #### CREA, LIPID #### [facility] [address] [address] [address] Martell PimentelL NORMAL> or = 60 mg/dl - LOW CARDIOVASCULAR RISK <40 mg/dl - HIGH CARDIOVASCULAR RISKGerman HospitalComment on above:Performed By: #### CREA, LIPID #### [facility] [address] [place] [address] Dr. Martell EppersonLDL CALC NORMALSEE BELOWNoChillicothe HospitalComment on above:Result Comment: <100 mg/dl OPTIMAL 100 - 129 mg/dl NEAR OR ABOVE OPTIMAL 130 - 159 mg/dl BORDERLINE HIGH 160 - 189 mg/dl HIGH >190 mg/dl VERY HIGH Performed By: #### CREA, LIPID #### [facility] [address] [place], [place] [address] Dr. Martell EppersonTriglyceride [Mass/Vol]204 mg/dLCritically high<=150The [facility] HospitalComtrinity health livonia on above:Performed By: #### CREA, LIPID #### [facility] [address] [place], [place] [address] Dr. Martell EppersonVLDL CALC40.8 mg/dLGerman HospitalComment on above: Performed By: #### CREA, LIPID #### [facility] [address] [place], [place] [address] Dr. Martell Gabriel KIDNEYSon [id number] KIDNEYSUS KIDNEYS EXAM DATE: 11/04/2021 12:53 PM MDT COMPARISON: Abdomen radiograph 11/04/2021 INDICATION: Recurrent UTI TECHNIQUE: Real-time ultrasound scanning of the kidneys and bladder was performed by the art appraiser. Professor Of Latin American Studies static images are submitted for review. FINDINGS: [...] Electronically authenticated by: DENISE AHUMADA Date: 2021-11-04 16:02German HospitalXR KUB 1 VIEWon [id number] KUB 1 VIEWEXAM: XR KUB 1 VIEW HISTORY: Urinary tract [...] may be helpful. Electronically authenticated by: TORIN EKLLY Date: 2021-11-04 15:36German HospitalMRI BRAIN WO W CONon [id number] BRAIN WO W CONEXAMINATION: MRI BRAIN WO W CON HISTORY: Primary malignant neoplasm [...] Electronically authenticated by: CHRIS MOJICA Date: 2021-09-21 21:57German HospitalCT Chest W contrast Jaz [id number]: 1. Mild patchy airspace opacification within the [...] any questions regarding this interpretation, please call [phone]. If you are unable to reach us at the number above, please feel free to contact [facility] Hospitaliology at [phone]. ZZZ_DO_NOT_USE_DIVISION OF RADIOLOGY* * *Final Report* * * DATE OF EXAM: Sep 07 2021 10:47AM [facility] 0539 - CT CHEST W IVCON / [...] biliary ductal dilatation. The gallbladder is absent. Supervisor Cartography (topogram) images: No additional findings. ZZZ_DO_NOT_USE_DIVISION OF RADIOLOGYProvider, [facility] [place] - 09/07/2021 * * *Final Report* * * DATE OF EXAM: Sep 07 2021 10:47AM [facility] 0539 - CT CHEST W IVCON / [...] biliary ductal dilatation. The gallbladder is absent. Supervisor Cartography (topogram) images: No additional findings. IMPRESSION IMPRESSION: [...] any questions regarding this interpretation, please call [phone]. If you are unable to reach us at the number above, please feel free to contact [facility] eRadiology at [phone]. [facility] Brent[facility] HospitalRadiology Study observation (narrative)[facility] Chest W contrast IVOrdered By: Ccf Provider on [id number] ClinicCULTURE URINE on [id number] URINECulture Observations: LIGHT GROWTH OF MIXED GENITAL SULEIMAN. NO POTENTIAL PATHOGENS SEEN.NormalThe Kira HospitalComment on above:Performed By: #### URCX #### [facility] [address] [address] [address] Martell Mohan [id number] Ql (U)NegativeNormalNEGATIVEMetrohealth Main Campus Medical CenterComment on above:Performed By: #### UA #### [facility] [address] [address] [address] Martell EppersonClarity (U)CLEARNormalCLEARMetrohealth Main Campus Medical CenterComment on above: Performed By: #### UA #### [facility] [address] [address] [address] Martell Pinto (U)DK. YELLOWNormalYELLOWMetrohealth Main Campus Medical CenterComment on above:Performed By: #### UA #### [facility] [address] [place] [address] Dr. Martell EppersonGlucose Ql (U)NegativeNormalNEGATIVEMetrohealth Main Campus Medical CenterComment on above:Performed By: #### UA #### [facility] [address] [address] [address] Martell EppersonHemoglobin Ql (U)NegativeNormalNEGPaulding County Hospital on above:Performed By: #### UA #### [facility] [address] [place] [address] Dr. Martell EppersonKetones Ql (U)NegativeNormalNEGATIVEMetrohealth Main Campus Medical CenterComment on above:Performed By: #### UA #### [facility] [address] [address] [address] Martell EppersonLEUKOCYTESNegativeNormalNEGATIVEMetrohealth Main Campus Medical CenterComtrinity health [place] on above:Performed By: #### UA #### [facility] [address] [place] [address] Dr. Martell EppersonNitrite Ql (U)NegativeNormalNEGATIVEMetrohealth Main Campus Medical CenterComment on above:Performed By: #### UA #### [facility] [address] [address] [address] Martell EppersonpH (U)5.0 [pH]Normal5-9The [facility] Community HospitalComment on above: Performed By: #### UA #### [facility] [address] [address] [address] Martell EppersonSPEC GRAVITY1.430Vceitv4.005-<=1.025The [facility] Community HospitalComment on above:Performed By: #### UA #### [facility] [address] [address] [address] Martell EppersonUA PROTEINNegativeNormalNEGATIVE/ TRACEThe [facility] Comment on above:Performed By: #### UA #### [facility] [address] [address] [address] Martell EppersonUrobilinogen Qn (U)0.2 {Emiliano'U}/dLNormal0.2 - 1.0The [facility] Community HospitalComment on above:Performed By: #### UA #### [facility] [address] [address] [address] Martell EppersonCT Chest W contrast Jaz [id number]: 1. Right upper lobe post radiation change, [...] any questions regarding this interpretation, please call [phone]. If you are unable to reach us at the number above, please feel free to contact [facility] eRadiology at [phone].DIVISION OF RADIOLOGY* * *Final Report* * * DATE OF EXAM: Feb 25 2021 8:55AM [facility] 0539 - CT CHEST W IVCON / [...] Mild intrahepatic biliary ductal dilatation. DIVISION OF RADIOLOGYProvider, [facility] [place] - 02/25/2021 * * *Final Report* * * DATE OF EXAM: Feb 25 2021 8:55AM [facility] 0539 - CT CHEST W IVCON / [...] any questions regarding this interpretation, please call [phone]. If you are unable to reach us at the number above, please feel free to contact [facility] eRadiology at [phone]. [facility] HospitalRadiology Study observation (narrative)[facility] Brent[facility] HospitalCT Chest W contrast IVOrdered By: Ccf Provider on [id number] Clinic Vital Signs Date TimeVital SignValuePerforming IawndedmnDfqgykjr12-79-0619 13:40-0400Body .5 Raizahaigraciela Hunter Work Phone: [facility]08-28-2025 13:09-0400Body qmabwj019 cm Shyla Mayer APRN.STEPHANIE Work Phone: [facility]08-28-2025 13:09-0400Body mass index (BMI) [Ratio]17.18 kg/d5ZeixiShyla Mayer APRN.CNP Work Phone: [facility]08-28-2025 13:09-0400Body temperature 97.11 [degF]Shyla Mayer APRN.CNP Work Phone: [facility]08-28-2025 13:09-0400Body qvqbey00.7 kgShyla Mayer APRN.CNP Work Phone: [facility]08-28-2025 13:09-0400Diastolic blood tjcqoxek03 mm[Hg]Shyla Mayer MEAT TEAM LEAD.MULTIGRAPH OPERATOR Work Phone: [facility]08-28-2025 13:09Heart myjg670 /minShyla Mayer MEAT TEAM LEAD.MULTIGRAPH OPERATOR Work Phone: [facility]08-28-2025 13:09Respiratory rate 16 /minShyla Mayer MEAT TEAM LEAD.MULTIGRAPH OPERATOR Work Phone: [facility]08-28-2025 13:09-2312OkA0% (BldA) [Mass fraction]96 %Shyla Mayer MEAT TEAM LEAD.MULTIGRAPH OPERATOR Work Phone: [facility]08-28-2025 13:09Systolic blood stbvllav060 mm[Hg]Shyla Mayer MEAT TEAM LEAD.MULTIGRAPH OPERATOR Work Phone: [facility]08-21-2025 14:12-0400Body .9 cmPaul Biedenbach DO Work Phone: [facility]Qvjzffaapg75-49-3659 14:12-0400Body mass index (BMI) [Ratio]18.18 kg/m2Paul Biedenbach DO Work Phone: [facility] SouthIzvfzomouz97-32-9865 14:120400Body acdvbb20.82 kgPaul Biedenbach DO Work Phone: [facility] SouthOchcpoeyxf26-52-8430 14:Body uorwdn067.86 cmPHYSICIAN [facility]08-18-2025 14:22-0400Body mass index (BMI) [Ratio]17.5 kg/c2BGLWUGIFD [facility]08-18-2025 14:040Body .46 kgPHYSICIAN [facility]08-18-2025 14:040Diastolic blood fljkzoid47 mm[Hg] PHYSICIAN NO [facility]08-18-2025 14:040Heart rate90 /minPHYSICIAN [facility]08-18-2025 14:22-0400Respiratory rate16 /minPHYSICIAN [facility]08-18-2025 14:22-9754LgQ9% (BldA) [Mass fraction]96 %PHYSICIAN [facility]08-18-2025 14:22-0400Systolic blood fqtfutth145 mm[Hg]PHYSICIAN NO [facility]07-17-2025 09:00-0400 Body cwidaz204.86 cmPHYSICIAN [facility] 09-26-2024 09:00-0400Body mass index (BMI) [Ratio]17.2 kg/y1MOUKSZHXO [facility]07-17-2025 09:00-0400Body bbbecu10.61 kg PHYSICIAN [facility]07-17-2025 09:00-0400 Diastolic blood qxxyknez28 mm[Hg]PHYSICIAN NO [facility]07-17-2025 09:00-0400Heart rate96 /minPHYSICIAN [facility]07-17-2025 09:00-0400Systolic blood nwpbuxrh562 mm[Hg] PHYSICIAN NO [facility]06-26-2025 08:59-0400Body mass index (BMI) [Ratio]17.01 kg/e4XhapkMichael Britton MD Work Phone: [facility]06-26-2025 08:59-0400Body temperature 97.59 [degF]Michael Britton MD Work Phone: [facility]06-26-2025 08:59-0400Body azsyqh51.3 kgMichael Britton MD Work Phone: [facility]06-26-2025 08:59-0400Diastolic blood jkywpqrl32 mm[Hg]Michael Britton MD Work Phone: [facility]06-26-2025 08:59-0400Heart ooau223 /minMichael Britton MD Work Phone: [facility]06-26-2025 08:59-0400Respiratory rate 16 /minMichael Britton MD Work Phone: [facility]06-26-2025 08:59-3890IkZ8% (BldA) [Mass fraction]98 %Michael Britton MD Work Phone: [facility]06-26-2025 08:59-0400Systolic blood hohwhkwi103 mm[Hg]Michael Britton MD Work Phone: [facility]05-30-2025 14:22-0400Body mass index (BMI) [Ratio]17.83 kg/h2SsincShyla Mayer APRN.MULTIGRAPH OPERATOR Work Phone: [phone] [place], [place] [address]05-30-2025 14:22-0400Body temperature 97.5 [degF]Shyla Mayer APRN.MULTIGRAPH OPERATOR Work Phone: [phone] [place], [place] [address]05-30-2025 14:22-0400Body .2 kgShyla Mayer APRN.MULTIGRAPH OPERATOR Work Phone: [phone] [place], [place] [address]05-30-2025 14:22-0400Diastolic blood tkglimcz28 mm[Hg]Shyla Mayer APRN.MULTIGRAPH OPERATOR Work Phone: 1([phone])594-[address] [place], [place] [address]05-30-2025 14:22-0400Heart rate90 /min Shyla Mayer APRN.MULTIGRAPH OPERATOR Work Phone: 1(750)097-[address] [place], [place] [address]05-30-2025 14:22-0400Respiratory rate 18 /minShyla Mayer APRN.MULTIGRAPH OPERATOR Work Phone: [facility]05-30-2025 14:22-9592SwC8% (BldA) [Mass fraction]96 %Shyla Mayer APRN.MULTIGRAPH OPERATOR Work Phone: [facility]05-30-2025 14:22-0400Systolic blood ewhpqhpn132 mm[Hg]Shyla Myaer APRN.MULTIGRAPH OPERATOR Work Phone: [phone]05-15-2025 12:52-0400Body cm Shyla Mayer APRN.MULTIGRAPH OPERATOR Work Phone: [facility]05-15-2025 12:52-0400Body mass index (BMI) [Ratio]17.62 kg/s3VunyuShyla Mayer APRN.MULTIGRAPH OPERATOR Work Phone: [facility]05-15-2025 12:52-0400Body temperature 97.59 [degF]Shyla Mayer APRN.MULTIGRAPH OPERATOR Work Phone: [facility]05-15-2025 12:52-0400Body .7 kgShyla Mayer APRN.MULTIGRAPH OPERATOR Work Phone: [facility]05-15-2025 12:52-0400Diastolic blood urkjkvgf89 mm[Hg]Shyla Mayer APRN.MULTIGRAPH OPERATOR Work Phone: [facility]05-15-2025 12:52-0400Heart jerw487 /minShyla Mayer APRN.MULTIGRAPH OPERATOR Work Phone: [facility]05-15-2025 12:52-0400Respiratory rate 16 /minShyla Mayer APRN.MULTIGRAPH OPERATOR Work Phone: [facility]05-15-2025 12:52-4208BbN8% (BldA) [Mass fraction]98 %Shyla Mayer APRN.MULTIGRAPH OPERATOR Work Phone: [facility]05-15-2025 12:52-0400Systolic blood ifhzffbg161 mm[Hg]Shyla Mayer APRN.MULTIGRAPH OPERATOR Work Phone: [facility]04-28-2025 14:42-0400Body .9 Karel Mejias DO Work Phone: NOSaint John's HospitalOaffiijewk11-27-5410 14:42-0400Body mass index (BMI) [Ratio]18.18 kg/c2Yvbeffsdicb Randell DO Work Phone: NOSaint John's HospitalMuxhnklesv62-67-0935 14:42-0400Body ytkdgt98.82 kgChristopher Mejias DO Work Phone: noSaint John's HospitalYssxjbdjha24-44-0541 14:42-0400Diastolic blood siqcjhrl43 mm[Hg]Merry Mejias DO Work Phone: noSaint John's HospitalZilelcmvtb76-99-5414 14:42-0400Systolic blood mm[Hg]Merry Mejias DO Work Phone: [facility] SouthGayrnnafow57-51-1926 14:19-0400Body mass index (BMI) [Ratio]17.83 kg/g2IgfjgMichael Britton MD Work Phone: [facility]04-10-2025 14:19-0400Body temperature 97.3 [degF]Michael Britton MD Work Phone: [facility]04-10-2025 14:19-0400Body idxsmu95.2 kgMichael Britton MD Work Phone: [facility]04-10-2025 14:19-0400Diastolic blood kaziqxbe45 mm[Hg]Michael Britton MD Work Phone: [facility]04-10-2025 14:19-0400Heart wtiy548 /minMichael Birtton MD Work Phone: [facility]04-10-2025 14:19-0400Respiratory rate 18 /minMichael Britton MD Work Phone: [facility]04-10-2025 14:19-0088JpE3% (BldA) [Mass fraction]98 %Michael Britton MD Work Phone: [facility]04-10-2025 14:19-0400Systolic blood cebwdrqo391 mm[Hg]Michael Britton MD Work Phone: [facility]04-03-2025 13:07-0400Body mass index (BMI) [Ratio]17.7 kg/o4VsymqtAlis Fonseca APRN.MULTIGRAPH OPERATOR Work Phone: [facility]04-03-2025 13:07-0400Body temperature 97.3 [degF]Alis Fonseca APRN.MULTIGRAPH OPERATOR Work Phone: [facility]04-03-2025 13:07-0400Body ziplxf86.9 kgJaimee Mauricio MEAT TEAM LEAD.MULTIGRAPH OPERATOR Work Phone: [facility]04-03-2025 13:07-0400Diastolic blood viaymmva76 mm[Hg]Alis Mauricio MEAT TEAM LEAD.MULTIGRAPH OPERATOR Work Phone: [facility]04-03-2025 13:07-0400Heart czrd978 /minJaimee Mauricio MEAT TEAM LEAD.MULTIGRAPH OPERATOR Work Phone: [facility]04-03-2025 13:07-0400Respiratory rate 16 /minJaimee Mauricio MEAT TEAM LEAD.MULTIGRAPH OPERATOR Work Phone: [facility]04-03-2025 13:07-2773RxF7% (BldA) [Mass fraction]97 %Alis Mauricio MEAT TEAM LEAD.MULTIGRAPH OPERATOR Work Phone: [facility]04-03-2025 13:07-0400Systolic blood jhwvipgh954 mm[Hg]Alis Mauricio MEAT TEAM LEAD.[facility] Work Phone: [facility]02-20-2025 12:51-0500Diastolic blood citrsrku42 mm[Hg]Michael Britton MD Work Phone: [facility] Brentwood HospitalComment on above:-04-9417 12:51-0500Systolic blood xuycjgkw865 mm[Hg]Michael Britton MD Work Phone: [facility] HospitalComment on above:-44-4570 12:48-0500Body mass index (BMI) [Ratio]18.05 kg/j6UpkcsMichael Britton MD Work Phone: [facility]02-20-2025 12:48-0500Body temperature 97.11 [degF]Michael Britton MD Work Phone: [facility]02-20-2025 12:48-0500Body hilsxi83.7 kgMichael Britton MD Work Phone: [facility]02-20-2025 12:48-0500Heart wezi613 /minMichael Britton MD Work Phone: [facility]02-20-2025 12:48-0500Respiratory rate 18 /minMichael Britton MD Work Phone: [facility]02-20-2025 12:48-5835PsF0% (BldA) [Mass fraction]99 %Michael Britton MD Work Phone: [facility]01-09-2025 13:03-0500Diastolic blood ylforbgy77 mm[Hg]Michael Britton MD Work Phone: [facility]01-09-2025 13:03-0500Systolic blood mm[Hg]Michael Britton MD Work Phone: [facility]01-09-2025 13:01-0500Body oiaxqr063 cm Michael Britton MD Work Phone: [facility]01-09-2025 13:01-0500Body mass index (BMI) [Ratio]17.96 kg/l4VpuulMichael Britton MD Work Phone: [facility]01-09-2025 13:01-0500Body temperature 97.5 [degF]Michael Britton MD Work Phone: [facility]01-09-2025 13:01-0500Body ccxydr18.5 kgMichael Britton MD Work Phone: [facility]01-09-2025 13:01-0500Heart bumd512 /minMichael Britton MD Work Phone: [facility]01-09-2025 13:01-0500Respiratory rate 16 /minMichael Britton MD Work Phone: [facility]01-09-2025 13:01-4824KpH1% (BldA) [Mass fraction]98 %Michael Britton MD Work Phone: [facility]01-02-2025 13:00-0500Body jkymhm01.19 kgKrystina Garcia TIRE DUSTER Work Phone: [facility] SouthPvukhbqbfb47-22-2336 13:00-0500Diastolic blood xumdyrdz45 mm[Hg]Krystina Garcia TIRE DUSTER Work Phone: [facility] SouthNkyszmwngv34-86-5538 13:00-0500Heart rate87 /min Krystina Garcia TIRE DUSTER Work Phone: noSaint John's HospitalGphafhhhit08-20-0804 13:00-0500Systolic blood vihzdeij599 mm[Hg]Krystina Garcia TIRE DUSTER Work Phone: [facility] SouthLznujwbyuc59-08-3370 14:16-0500Body awdriu575 cm Raphael Franco PA-C Work Phone: [facility]12-18-2024 14:16-0500Body mass index (BMI) [Ratio]18.26 kg/t9Jsdod Franco PA-C Work Phone: [facility]12-18-2024 14:16-0500Body temperature 97.7 [degF]Raphael Franco PA-C Work Phone: [facility]12-18-2024 14:16-0500Body hqzejc44.2 kgMindy Franco PA-C Work Phone: [facility]12-18-2024 14:16-0500Diastolic blood jbeeitfa61 mm[Hg]Raphael Franco PA-C Work Phone: [facility]12-18-2024 14:16-0500Heart bnig109 /minMindy Franco PA-C Work Phone: [facility]12-18-2024 14:16-0500Respiratory rate 16 /minMindy Franco PA-C Work Phone: [facility]12-18-2024 14:16-6530HpO1% (BldA) [Mass fraction]95 %Raphael Franco PA-C Work Phone: [facility]12-18-2024 14:16-0500Systolic blood gkwpajjn637 mm[Hg]Raphael Davsier PA-C Work Phone: [facility] [facility]12-09-2024 12:46-0500Diastolic blood trzmybqm33 mm[Hg][employer] Work Phone: [facility]12-09-2024 12:46-0500Heart rate87 /min [employer] Work Phone: [place] [address]-09-2024 12:46-0500Respiratory rate 16 /min[facility] [facility] Work Phone: [place] [address]-09-2024 12:46-9183NgT2% (BldA) [Mass fraction]94 %[employer] Work Phone: [facility]12-09-2024 12:46-0500Systolic blood ttxaexfm514 mm[Hg][employer] Work Phone: [facility]12-05-2024 10:57-0500Body ihaxle719 cm Alfredo More MD Work Phone: [phone]12-05-2024 10:57-0500Body mass index (BMI) [Ratio]16.62 kg/o0EfmkdqaAlfredo More MD Work Phone: [facility]12-05-2024 10:57-0500Body temperature 98.2 [degF]Alfredo More MD Work Phone: [facility]12-05-2024 10:57-0500Body .4 kgAlfredo More MD Work Phone: [place] [address]-05-2024 10:57-0500Diastolic blood sqqiepup51 mm[Hg]Alfredo More MD Work Phone: [facility] HospitalComment on above: ijtvpdaw14-39-1121 10:57-0500Heart rate96 /minAlfredo More MD Work Phone: [facility]Comment [facility]: pigyixqe81-37-7820 10:57-0500Respiratory rate17 /minAlfredo More MD Work Phone: [facility]12-05-2024 10:57-1433JiF1% (BldA) [Mass fraction]95 %Alfredo More MD Work Phone: [facility]12-05-2024 10:57-0500Systolic blood vfddslxe545 mm[Hg]Alfredo More MD Work Phone: [facility] HospitalComment on above: bjroaguq73-39-2403 12:41-0500Diastolic blood miarrzti04 mm[Hg]Raphael Franco PA-C Work Phone: [facility] HospitalComment on above:recheck [id number] 12:41-0500Systolic blood rhftokwp621 mm[Hg]Raphael Franco PA-C Work Phone: [facility] HospitalComment on above:recheck [id number] 12:37-0500Body .5 cmMindy Franco PA-C Work Phone: [facility]11-27-2024 12:37-0500Body mass index (BMI) [Ratio]16.13 kg/i2Hihxc Franco PA-C Work Phone: [facility]11-27-2024 12:37-0500Body temperature 96.69 [degF]Raphael Franco PA-C Work Phone: [place] [address]-27-2024 12:37-0500Body kg Raphael Franco PA-C Work Phone: [facility]11-27-2024 12:37-0500Heart rate85 /min Raphael Franco PA-C Work Phone: [facility]11-27-2024 12:37-0500Respiratory rate 16 /minMindy Franco PA-C Work Phone: [facility]11-27-2024 12:37-8033MfK4% (BldA) [Mass fraction]98 %Raphael Jolley PA-C Work Phone: [facility]11-01-2024 14:40-0400Body mass index (BMI) [Ratio]16.09 kg/f8BdeaoMichael Britton MD Work Phone: [facility]11-01-2024 14:40-0400Body temperature 97.39 [degF]Michael Britton MD Work Phone: [facility]11-01-2024 14:40-0400Body umbytz57.9 kgMichael Britton MD Work Phone: [facility]11-01-2024 14:40-0400Diastolic blood tjaxhhqs69 mm[Hg]Michael Britton MD Work Phone: [facility]11-01-2024 14:40-0400Heart rate92 /min Michael Britton MD Work Phone: [facility]11-01-2024 14:40-0400Respiratory rate 18 /minMichael Britton MD Work Phone: [facility]11-01-2024 14:40-0122LhH2% (BldA) [Mass fraction]100 %Michael Britton MD Work Phone: [facility]11-01-2024 14:40-0400Systolic blood vyriylqx808 mm[Hg]Michael Britton MD Work Phone: [facility]10-16-2024 13:05-0400Body bzrypb477.5 cmVmaggie Britton MD Work Phone: [facility]10-16-2024 13:05-0400Body mass index (BMI) [Ratio]15.87 kg/x8BgdxpMichael Britton MD Work Phone: [facility]10-16-2024 13:05-0400Body temperature 97.59 [degF]Michael Britton MD Work Phone: [facility]10-16-2024 13:05-0400Body vromhp23.4 kgMichael Britton MD Work Phone: [facility]10-16-2024 13:05-0400Diastolic blood mgxtoitt37 mm[Hg]Michael Britton MD Work Phone: [facility]10-16-2024 13:05-0400Heart cvup303 /minMichael Britton MD Work Phone: [facility]10-16-2024 13:05-0400Respiratory rate 16 /minMichael Britton MD Work Phone: [facility]10-16-2024 13:05-5280AxH8% (BldA) [Mass fraction]97 %Michael Britton MD Work Phone: [facility]10-16-2024 13:05-0400Systolic blood rpbulpbb360 mm[Hg]Michael Britton MD Work Phone: [facility]09-04-2024 13:48-0400Body eqhund509.5 cmVmaggie Britton MD Work Phone: [facility]09-04-2024 13:48-0400Body mass index (BMI) [Ratio]15.66 kg/p5QfdxqMichael Britton MD Work Phone: [facility]09-04-2024 13:48-0400Body temperature 97.2 [degF]Michael Britton MD Work Phone: [facility]09-04-2024 13:48-0400Body judbbx45.9 kgMichael Britton MD Work Phone: [facility]09-04-2024 13:48-0400Diastolic blood afbuqmzi34 mm[Hg]Michael Britton MD Work Phone: [facility]09-04-2024 13:48-0400Heart rate92 /min Michael Britton MD Work Phone: [facility]09-04-2024 13:48-0400Respiratory rate 16 /minMichael Britton MD Work Phone: [facility]09-04-2024 13:48-6303XaU5% (BldA) [Mass fraction]98 %Michael Britton MD Work Phone: [facility]09-04-2024 13:48-0400Systolic blood kxnllwmi092 mm[Hg]Michael Britton MD Work Phone: [facility]08-27-2024 09:58-0400Blood Pressure LocationJELEE RINCON [facility]08-27-2024 09:58-0400Diastolic blood mm[Hg]JESSIKA RINCON [facility]08-27-2024 09:58-0400Heart rate92 /minJESSIKA MCKENZIE [facility]08-27-2024 09:58-0400Systolic blood jlduclhp373 mm[Hg]JESSIKA RINCON [facility]07-23-2024 13:42-0400Body ezrbwd277.5 cmOtoniel Adhikari MD Work Phone: [facility]07-23-2024 13:42-0400Body mass index (BMI) [Ratio]16 kg/t1JccutOtoniel Adhikari MD Work Phone: [facility]07-23-2024 13:42-0400Body temperature 97.11 [degF]Otoniel Adhikari MD Work Phone: [facility]07-23-2024 13:42-0400Body ljqukc87.7 kgOtoniel Adhikari MD Work Phone: [facility]07-23-2024 13:42-0400Diastolic blood emjfxuts15 mm[Hg]Otoniel Adhikari MD Work Phone: [facility]07-23-2024 13:42-0400Heart rate96 /min Otoniel Adhikari MD Work Phone: [facility]07-23-2024 13:42-0400Respiratory rate 16 /minOtoniel Adhikari MD Work Phone: [facility]07-23-2024 13:42-6986MjC2% (BldA) [Mass fraction]100 %Otoniel Adhikari MD Work Phone: [facility]07-23-2024 13:42-0400Systolic blood ciblzgbg952 mm[Hg]Otoniel Adhikari MD Work Phone: [facility]06-11-2024 13:41-0400Body flzitn287.5 cmOtoniel Adhikari MD Work Phone: [facility]06-11-2024 13:41-0400Body mass index (BMI) [Ratio]16.38 kg/w0LwrfbOtoniel Adhikari MD Work Phone: [facility]06-11-2024 13:41-0400Body temperature 97.39 [degF]Otoniel Adhikari MD Work Phone: [facility]06-11-2024 13:41-0400Body shbfyi21.6 kgOtoniel Adhikari MD Work Phone: [facility]06-11-2024 13:41-0400Diastolic blood kzykkiok02 mm[Hg]Otoniel Adhikari MD Work Phone: [facility]06-11-2024 13:41-0400Heart rate90 /min Otoniel Adhikari MD Work Phone: [facility]06-11-2024 13:41-0400Respiratory rate 16 /minOtoniel Adhikari MD Work Phone: [facility]06-11-2024 13:41-3424QmN9% (BldA) [Mass fraction]97 %Otoniel Adhikari MD Work Phone: [facility]06-11-2024 13:41-0400Systolic blood tpbwqidm832 mm[Hg]Otoniel Adhikari MD Work Phone: [facility]04-30-2024 13:55-0400Diastolic blood ztxkcyry31 mm[Hg]Raphael Franco PA-C Work Phone: [facility] HospitalComment on above:tfgutmw59-85-3258 13:55-0400Systolic blood gudhhnuv859 mm[Hg]Raphael Franco PA-C Work Phone: [facility]Comment on above:nvzrfir38-37-7271 13:54-0400Body .5 cmMindy Franco PA-C Work Phone: [facility]04-30-2024 13:54-0400Body mass index (BMI) [Ratio]16.89 kg/q7Idpdx Franco PA-C Work Phone: [facility]04-30-2024 13:54-0400Body temperature 97.11 [degF]Raphael Franco PA-C Work Phone: [facility]04-30-2024 13:54-0400Body xojzyu02.8 kgMindy Franco PA-C Work Phone: [place] [address]-30-2024 13:54-0400Heart rate87 /min Raphael Franco PA-C Work Phone: [facility]04-30-2024 13:54-0400Respiratory rate 16 /minMindy Franco PA-C Work Phone: [place] [address]-30-2024 13:54-7776YmS2% (BldA) [Mass fraction]99 %Raphael Daviser PA-C Work Phone: [facility]04-09-2024 13:17-0400Body pmdeyi869.5 cmOtoniel Adhikari MD Work Phone: [facility]04-09-2024 13:17-0400Body temperature 97.81 [degF]Otoniel Adhikari MD Work Phone: [facility]04-09-2024 13:17-0400Body wunpqe63.9 kgOtoniel Adhikari MD Work Phone: [facility]04-09-2024 13:17-0400Diastolic blood fkyhqfpm50 mm[Hg]Otoniel Adhikari MD Work Phone: [facility]04-09-2024 13:17-0400Heart rate97 /min Otoniel Adhikari MD Work Phone: [facility]04-09-2024 13:17-0400Respiratory rate 16 /minOtoniel Adhikari MD Work Phone: [facility]04-09-2024 13:17-0160KzH7% (BldA) [Mass fraction]96 %Otoniel Adhikari MD Work Phone: [facility]04-09-2024 13:17-0400Systolic blood mm[Hg]Otoniel Adhikari MD Work Phone: [facility]03-19-2024 13:17-0400Body evlxws669.5 cmMincarl Daviser PA-C Work Phone: [facility]03-19-2024 13:17-0400Body temperature 97.2 [degF]Raphael Daviser PA-C Work Phone: [facility]03-19-2024 13:17-0400Body lpilqs39.6 kgMincarl Franco PA-C Work Phone: [facility]03-19-2024 13:17-0400Diastolic blood yqklgrua63 mm[Hg]Raphael Franco PA-C Work Phone: [facility]03-19-2024 13:17-0400Heart rate91 /min Raphael Franco PA-C Work Phone: [facility]03-19-2024 13:17-0400Respiratory rate 16 /minMindy Franco PA-C Work Phone: [facility]03-19-2024 13:17-9793DeD6% (BldA) [Mass fraction]99 %Raphael Franco PA-C Work Phone: [facility]03-19-2024 13:17-0400Systolic blood lyqlsclq089 mm[Hg]Raphael Franco PA-C Work Phone: [facility]02-27-2024 14:21-0500Body trciyn240.5 cmMindy Franco PA-C Work Phone: [facility]02-27-2024 14:21-0500Body temperature 97.39 [degF]Raphael Franco PA-C Work Phone: [facility]02-27-2024 14:21-0500Body .3 kgMindy Franco PA-C Work Phone: [facility]02-27-2024 14:21-0500Diastolic blood gltuztwo66 mm[Hg]Raphael Franco PA-C Work Phone: [facility]02-27-2024 14:21-0500Heart rate83 /min Raphael Franco PA-C Work Phone: [facility]02-27-2024 14:21-0500Respiratory rate 16 /minMindy Franco PA-C Work Phone: [facility]02-27-2024 14:21-9288KjJ5% (BldA) [Mass fraction]96 %Raphael Franco PA-C Work Phone: [facility]02-27-2024 14:21-0500Systolic blood aiqylqzg736 mm[Hg]Raphael Daviser PA-C Work Phone: [facility]12-06-2023 13:28-0500Body olonkk955.5 cmOtoniel Adhikari MD Work Phone: [facility]12-06-2023 13:28-0500Body temperature 97.81 [degF]Otoniel Adhikari MD Work Phone: [facility]12-06-2023 13:28-0500Body fjejoe63.47 kgOtoniel Adhikari MD Work Phone: [facility]12-06-2023 13:28-0500Diastolic blood nilapwxf34 mm[Hg]Otoniel Adhikari MD Work Phone: [facility]12-06-2023 13:28-0500Heart rate96 /min Otoniel Adhikari MD Work Phone: [facility]12-06-2023 13:28-0500Respiratory rate 16 /minOtoniel Adhikari MD Work Phone: [facility]12-06-2023 13:28-3161KfM3% (BldA) [Mass fraction]100 %Otoniel Adhikari MD Work Phone: [facility]12-06-2023 13:28-0500Systolic blood ubwhweue986 mm[Hg]Otoniel Adhikari MD Work Phone: [facility]11-15-2023 14:00-0500Body ofgkgi100.5 cmRaphael Daviser PA-C Work Phone: [facility]11-15-2023 14:00-0500Body temperature 97.2 [degF]Raphael Daviser PA-C Work Phone: [facility]11-15-2023 14:00-0500Body aoavtz35.92 kgMincarl Franco PA-C Work Phone: [facility]11-15-2023 14:00-0500Diastolic blood bxmyxkvq50 mm[Hg]Raphael Franco PA-C Work Phone: [facility]11-15-2023 14:00-0500Heart rate91 /min Raphael Franco PA-C Work Phone: [facility]11-15-2023 14:00-0500Respiratory rate 16 /minMincarl Franco PA-C Work Phone: [facility]11-15-2023 14:00-2862FaF2% (BldA) [Mass fraction]100 %Raphael Franco PA-C Work Phone: [facility]11-15-2023 14:00-0500Systolic blood hjqvbpof147 mm[Hg]Raphael Franco PA-C Work Phone: [facility]11-02-2023 13:30-0400Body ejtahd105.94 cmBrianda Lewis Other [place] Other 11-02-2023 13:30-0400Body mass index (BMI) [Ratio] 14.93 kg/o1KncsrkBrianda Lewis Other [place] Other 11-02-2023 13:30-0400Body wypioqcniwn05.8 [degF]Brianda Lewis Other [place] Other 11-02-2023 13:30-0400Body mlxfcu26.83 kgBrianda Lewis Other [place] Other 11-02-2023 13:30-0400Diastolic blood qsmovnzn93 mm[Hg] Brianda Lewis Other [place] Other 11-02-2023 13:30-7080HqR6% (BldA) [Mass fraction]98 % Brianda Lewis Other [facility] [place] Other 11-02-2023 13:30-0400Systolic blood enhjruug642 mm[Hg] Brianda Lewis Other [place] Other 10-25-2023 13:19-0400Body jaqyiz147.5 cmMindy Franco PA-C Work Phone: [facility]10-25-2023 13:19-0400Body temperature 97.81 [degF]Raphael Franco PA-C Work Phone: [facility]10-25-2023 13:19-0400Body qwursq59.74 kgMindy Franco PA-C Work Phone: [facility]10-25-2023 13:19-0400Diastolic blood avcxzzie48 mm[Hg]Raphael Franco PA-C Work Phone: [facility]10-25-2023 13:19-0400Heart rate93 /min Raphael Franco PA-C Work Phone: [facility]10-25-2023 13:19-0400Respiratory rate 16 /minMindy Franco PA-C Work Phone: [facility]10-25-2023 13:19-5375DxI0% (BldA) [Mass fraction]97 %Raphael Franco PA-C Work Phone: [facility]10-25-2023 13:19-0400Systolic blood sntsapoe663 mm[Hg]Raphael Franco PA-C Work Phone: [facility]09-13-2023 12:48-0400Body hueyfj027.4 [facility]AM LE[facility].MULTIGRAPH OPERATOR Work Phone: [phone] [address]-13-2023 12:48-0400Body temperature 96.91 [degF][facility] MEAT TEAM LEAD.MULTIGRAPH OPERATOR Work Phone: [phone] [address]-13-2023 12:48-0400Body uavcyd70.15 kg[facility] MEAT TEAM LEAD.MULTIGRAPH OPERATOR Work Phone: [phone] [address]-13-2023 12:48-0400Diastolic blood mm[Hg][facility] MEAT TEAM LEAD.MULTIGRAPH OPERATOR Work Phone: [phone] [address]-13-2023 12:48-0400Heart mvue777 /minChrist[facility] MEAT TEAM LEAD.MULTIGRAPH OPERATOR Work Phone: [phone] [address]-13-2023 12:48-0400Respiratory rate 18 /min[facility] MEAT TEAM LEAD.MULTIGRAPH OPERATOR Work Phone: [phone] [address]-13-2023 12:48-9965ZjR9% (BldA) [Mass fraction]99 %[facility] MEAT TEAM LEAD.MULTIGRAPH OPERATOR Work Phone: [phone] [address]-13-2023 12:48-0400Systolic blood mm[Hg][facility] MEAT TEAM LEAD.MULTIGRAPH OPERATOR Work Phone: [phone]09-01-2023 12:58-0400Body stunyj534.4 cmEvette Walden MD Work Phone: [phone] [facility] HospitalNanoke56-71-7226 12:58-0400Body temperature 98.91 [degF]Evette Walden MD Work Phone: [phone] [facility] HospitalBdxwrf22-33-3632 12:58-0400Body loguxx84.74 kgEvette Walden MD Work Phone: [phone] Community HospitalRkdenh79-21-3417 12:58-0400Diastolic blood yowhjsse41 mm[Hg]Evette Walden MD Work Phone: [phone] Community HospitalUhafzh84-73-5697 12:58-0400Heart rate97 /min Evette Walden MD Work Phone: [phone] Community HospitalZracuc32-55-9437 12:58-0314GvT5% (BldA) [Mass fraction]96 %Evette Walden MD Work Phone: TGalion [facility] HospitalXnrkox12-44-2001 12:58-0400Systolic blood ixkcgpcq148 mm[Hg]Evette Walden MD Work Phone: WGalion [facility] HospitalStmoic90-79-3192 10:02-0400Blood Pressure LocationJELEE RINCON [facility]08-22-2023 10:02-0400Diastolic blood zycuudpm09 mm[Hg]JESSIKA RINCON [facility]08-22-2023 10:02-0400Heart rate84 /minJENNCHARLINE RINCON [facility]08-22-2023 10:02-0400Systolic blood bnkymjab803 mm[Hg]JESSIKA RINCON [facility]07-12-2023 14:39-0400Body jcueou063.4 cmEvette Walden MD Work Phone: RGalion [facility] HospitalHvdvrj70-41-7878 14:39-0400Body temperature 97.59 [degF]Evette Walden MD Work Phone: IGalion [facility] HospitalUpwggf99-71-3417 14:39-0400Body eckhwe81.29 kgEvette Walden MD Work Phone: VGalion [facility] HospitalNjorxi68-48-8997 14:39-0400Diastolic blood dbitervm44 mm[Hg]Evette Walden MD Work Phone: DGalion [facility] HospitalEowtsu70-70-9663 14:39-0400Heart rate66 /min Evette Walden MD Work Phone: cGalion [facility] HospitalEjrvll91-20-0892 14:39-0400Respiratory rate 22 /minDwhit Walden MD Work Phone: cGal[facility] HospitalJhxymv94-69-8672 14:39-7580OsV6% (BldA) [Mass fraction]99 %Evette Walden MD Work Phone: cGal[facility] HospitalGdibvh21-92-8679 14:39-0400Systolic blood vaftqiui897 mm[Hg]Evette Walden MD Work Phone: cGal[facility] HospitalQcmfwg78-22-9087 11:36-0400Body heknor551.9 cmOtoniel Adhikari MD Work Phone: [facility]06-07-2023 11:36-0400Body temperature 98.29 [degF]Otoniel Adhikari MD Work Phone: [facility]06-07-2023 11:36-0400Body .83 kgOtoniel Adhikari MD Work Phone: [facility]06-07-2023 11:36-0400Diastolic blood mm[Hg]Otoniel Adhikari MD Work Phone: [facility]06-07-2023 11:36-0400Heart rate89 /min Otoniel Adhikari MD Work Phone: [facility]06-07-2023 11:36-0400Respiratory rate 16 /minOtoniel Adhikari MD Work Phone: [facility]06-07-2023 11:36-7322LwR8% (BldA) [Mass fraction]99 %Otoniel Adhikari MD Work Phone: [facility]06-07-2023 11:36-0400Systolic blood baspocfq315 mm[Hg]Otoniel Adhikari MD Work Phone: [facility]05-31-2023 11:15-0400Diastolic blood ahjmwgja90 mm[Hg]Ana Smith MD Work Phone: [facility]05-31-2023 11:15-0400Heart rate88 /min Ana Smith MD Work Phone: [facility]05-31-2023 11:15-0400Respiratory rate 20 /minAna Smith MD Work Phone: [facility]05-31-2023 11:15-9852ZiC2% (BldA) [Mass fraction]95 %Ana Smith MD Work Phone: [facility]05-31-2023 11:15-0400Systolic blood khhiirop710 mm[Hg]Ana Smith MD Work Phone: [facility]05-31-2023 10:54-0400Body temperature 97 [degF]Ana Smith MD Work Phone: [facility]05-10-2023 13:28-0400Body zrpoeu902.9 cmOtoniel Adhikari MD Work Phone: [facility]05-10-2023 13:28-0400Body temperature 97.59 [degF]Otoniel Adhikari MD Work Phone: [facility]05-10-2023 13:28-0400Body kszioh48.01 kgOtoniel Adhikari MD Work Phone: [facility]05-10-2023 13:28-0400Diastolic blood obcrmrib35 mm[Hg]Otoniel Adhikari MD Work Phone: [facility]05-10-2023 13:28-0400Heart rate81 /min Otoniel Adhikari MD Work Phone: [facility]05-10-2023 13:28-0400Respiratory rate 16 /minOtoniel Adhikari MD Work Phone: [facility]05-10-2023 13:28-8117BbU8% (BldA) [Mass fraction]97 %Otoniel Adhikari MD Work Phone: [facility]05-10-2023 13:28-0400Systolic blood mm[Hg]Otoniel Adhikari MD Work Phone: [facility]02-22-2023 11:02-0500Blood Pressure LocationJENNIFER MCKENZIE [facility]02-22-2023 11:02-0500Diastolic blood vrpzhhma21 mm[Hg]JESSIKA MCKENZIE [facility]02-22-2023 11:02-0500Heart rate79 /minJENNIFER MCKENZIE [facility]02-22-2023 11:02-0500Respiratory rate16 /minJENNIFER MCKENZIE [facility]02-22-2023 11:02-0500Systolic blood mm[Hg]JESSIKA MCKENZIE [facility]01-26-2023 09:52-0500Body fyvvpq073.9 cmOtoniel Adhikari MD Work Phone: [facility]01-26-2023 09:52-0500Body temperature 97.11 [degF]Otoniel Adhikari MD Work Phone: [facility]01-26-2023 09:52-0500Body kfahex66.47 kgOtoniel Adhikari MD Work Phone: [facility]01-26-2023 09:52-0500Diastolic blood udpjnqsc05 mm[Hg]Otoniel Adhikari MD Work Phone: [facility]01-26-2023 09:52-0500Heart rate84 /min Otoniel Adhikari MD Work Phone: [facility]01-26-2023 09:52-0500Respiratory rate 16 /minOtoniel Adhikari MD Work Phone: [facility]01-26-2023 09:52-5785MqQ9% (BldA) [Mass fraction]100 %Otoniel Adhikari MD Work Phone: [facility]01-26-2023 09:52-0500Systolic blood jqafhacj840 mm[Hg]Otoniel Adhikari MD Work Phone: [facility]07-20-2022 13:19-0400Body tcxcra824.9 cmOtoniel Adhikari MD Work Phone: [facility]07-20-2022 13:19-0400Body temperature 97.3 [degF]Otoniel Adhikari MD Work Phone: [facility]07-20-2022 13:19-0400Body .47 kgOtoniel Adhikari MD Work Phone: [facility]07-20-2022 13:19-0400Diastolic blood mm[Hg]Otoniel Adhikari MD Work Phone: [facility]07-20-2022 13:19-0400Heart rate95 /min Otoniel Adhikari MD Work Phone: [facility]07-20-2022 13:19-0400Respiratory rate 16 /minOtoniel Adhikari MD Work Phone: [facility]07-20-2022 13:19-4651LlR2% (BldA) [Mass fraction]100 %Otoniel Adhikari MD Work Phone: [facility]07-20-2022 13:19-0400Systolic blood ilosbcfy101 mm[Hg]Otoniel Adhikari MD Work Phone: [facility]07-14-2022 11:30-0400Body sykyqr569.94 cmDamonica Blackburn Other [employer] Other 07-14-2022 11:30-0400Body mass index (BMI) [Ratio]15.3 kg/l0Xhgzpmonica Blackburn Other [employer] Other 07-14-2022 11:30-0400Body avjrdv61.74 kgDamonica Blackburn Other [employer] Other 07-14-2022 11:30-0400Diastolic blood oikjumxo55 mm[Hg] Chris Blackburn Other [employer] Other 07-14-2022 11:30-0400Systolic blood rvypzade676 mm[Hg] Chris Blackburn Other [employer] Other 07-05-2022 14:20-0400Body ovaive891.9 cmMindy Franco PA-C Work Phone: [facility]07-05-2022 14:20-0400Body temperature 97.11 [degF]Raphael Franco PA-C Work Phone: [facility]07-05-2022 14:20-0400Body .83 kgMindy Franco PA-C Work Phone: [facility]07-05-2022 14:20-0400Diastolic blood lgqdykly91 mm[Hg]Raphael Franco PA-C Work Phone: [facility]07-05-2022 14:20-0400Heart rate89 /min Raphael Franco PA-C Work Phone: [facility]07-05-2022 14:20-0400Respiratory rate 16 /minMindy Franco PA-C Work Phone: [facility]07-05-2022 14:20-2890HhY8% (BldA) [Mass fraction]98 %Raphael Jolley PA-C Work Phone: [facility]07-05-2022 14:20-0400Systolic blood nigucwhp509 mm[Hg]Raphael Jolley PA-C Work Phone: [facility]03-07-2022 14:30-0500Body knywaf336.94 cmDavid Hykes Other [employer] Other 03-07-2022 14:30-0500Body mass index (BMI) [Ratio] 16.06 kg/b4Gtjvb Hykes Other [employer] Other 03-07-2022 14:30-0500Body rqhemm26.56 kgDavid Hykes Other [employer] Other 03-07-2022 14:30-0500Diastolic blood ozgsqvle49 mm[Hg] Chris Blackburn Other [employer] Other 03-07-2022 14:30-0500Systolic blood zxhfuimq041 mm[Hg] Chris Blackburn Other [employer] Other 02-01-2022 15:15-0500Body uqdiak628.94 cmDavid Hykes Other [employer] Other 02-01-2022 15:15-0500Body mass index (BMI) [Ratio] 18.89 kg/t3Ddjfw Hykes Other [employer] Other 02-01-2022 15:15-0500Body .36 kgDavid Hykes Other [employer] Other 02-01-2022 15:15-0500Diastolic blood zmbpdydv53 mm[Hg] Chris Blackburn Other [employer] Other 02-01-2022 15:15-0500Respiratory rate16 /minDavicatarino Blackburn Other [employer] Other 02-01-2022 15:15-0500Systolic blood agjrmgca981 mm[Hg] Chris Blackburn Other [employer] Other Encounters Encounter DateEncounter TypeCare ProviderFacilityStart: 12-17-2024 End: 77-80-5597lhpvglqegwSYOPU ABHYANKARFacility:[facility]: 30-71-9804kxpticthelLYBXI MARTINEZFacility:[facility]: 11-23-2024 End: 85-45-3459LjnvujPkqatqLuis Carlos Fonseca APRN.CNP Work Phone: Hematology/OncologyComment on above:Med Change Request Start: 11-07-2024 End: 97-27-3749Lzhrzce encounter procedureShyla Mayer APRN.CNP Work Phone: Hematology/OncologyStart: 11-07-2024 End: 78-37-4119scqetmfridFnprw Memo Makenzie Work Phone: Hematology/OncologyComment on above:Malignant neoplasm of unspecified part of unspecified bronchus or lung (HCC) (Primary Dx); Malignant neoplasm of upper lobe of left lung (HCC)Malignant neoplasm of hilus of lung, unspecified laterality (HCC) (Primary Dx); 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); Acute hepatitis; Tongue lesion; Hypothyroidism due to medicationStart: 11-07-2024 End: 10-74-6333gcpscnjisvAUERU M MUSSERFacility:[facility]tart: 10-31-2024 End: 90-70-2905Guovxj outpatient new 45 minutesPaul S Biedenbach DO Work Phone: [facility] [place] OtolaryngologyComment on above:Tobacco abuse (Primary Dx); Chronic rhinitis; Tongue lesionStart: 10-31-2024 End: 17-47-0685iknmlxybeeRRMU S BIEDENBACHNot AvailableStart: 10-31-2024 End: 94-68-9596Tancjb flowsheetPaul S Biedenbach DO Work Phone: [facility] OtolaryngologyStart: 10-31-2024 End: 25-64-5307Baefyz flowsheetPaul S Biedenbach DO Work Phone: no[facility] OtolaryngologyStart: 10-31-2024 End: 22-43-2533Bkubzyzib encounterMila Briscoe RN Work Phone: Hematology/OncologyStart: 10-30-2024 End: 64-66-9089ucfzaybdtkJjzsx Reba OWUSU Work Phone: Hematology/OncologyComment on above:TreatmentStart: 10-28-2024 End: 66-00-8289ksaysbfqidLVEKIBDIZ NO [facility] Work Phone: Start: 10-28-2024 End: 05-51-6330Ztvzfvi encounter Piyush Bennett LKSN-LNY-F-[facility] Work Phone: Start: 10-23-2024 End: 47-92-4279Chvpuuwcr encounterBecky Olivares RN Work Phone: Hematology/OncologyComment on above:Care Coordination (Colonoscopy)Start: 10-23-2024 End: 35-70-2506duidxdmoqqIbjfrwwo Talal SarminiFacility:[place] DHStart: 10-23-2024 End: 07-42-7768Dovmbep encounter procedureMuhammad Talal Sarmini 352-8510Pdemtj-[facility]omPe[facility] Start: 10-17-2024 End: 44-27-6673Uompmtjai encounterAlis Fonseca APRN.CNP Work Phone: Cancer Appts MCComment on above:Patient Update; Care Coordination (Vomiting-cancelled appointment)Start: 10-03-2024 End: 81-88-7963RkhucyRxtpgEspinoza Mayer APRN.CNP Work Phone: Hematology/OncologyComment on above:Refill Request Start: 09-26-2024 End: 88-50-1667rzaqwlhectGHLTXUVRW [facility] Work Phone: Start: 09-26-2024 End: 89-54-3836Jxfejhf encounter Fior Sepulveda MD-[facility] Work Phone: Start: 09-10-2024 End: 29-99-6715UejxldNdxrkRema Jolley PA-C Work Phone: Hematology/OncologyComment on above:Refill Request Start: 09-10-2024 End: 69-79-6745BrzdyjMfkluEspinoza Mayer APRN.CNP Work Phone: Hematology/OncologyComment on above:Refill Request Start: 09-05-2024 End: 67-47-1391Qrfjyibvc encounterMichael Britton MD Work Phone: Cancer Appts MCComment on above:Future Appointment Start: 09-05-2024 End: 27-14-8387Ljwsbl outpatient visit 40 minutesMichael Britton MD Work Phone: Hematology/OncologyComment on above:Urinary frequency (Primary Dx); Malignant neoplasm of hilus of lung, unspecified laterality (HCC); 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); 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); Malignant neoplasm of unspecified part of unspecified bronchus or lung (HCC); Colitis, acute; Acute hepatitis; Tongue lesion; Malignant neoplasm of upper lobe, right bronchus or lung (HCC); Malignant neoplasm of upper lobe, left bronchus or lung (HCC); Malignant neoplasm of lower lobe, right bronchus or lung (HCC); Malignant neoplasm of overlapping sites of unspecified bronchus and lung (HCC); Secondary malignant neoplasm of brain (HCC); Thinning of skin; Encounter for antineoplastic chemotherapy; Personal history of tobacco use; Personal history of other malignant neoplasm of bronchus and lungStart: 09-05-2024 End: 75-23-2632qhrgyykkmfYtthk [address] [place] Work Phone: Hematology/OncologyComment on above:Malignant neoplasm of unspecified part of unspecified bronchus or lung (HCC) (Primary Dx); Malignant neoplasm of upper lobe of left lung (HCC)Start: 22-96-2671njavsntnaystephanie MAYERFacility:[facility]tart: 08-27-2024 End: 15-52-7282Hrbjiqtofn hospital visit by physicianArrival Time Radiology Work Phone: Radiology Pet CTComment on above:Malignant neoplasm of unspecified part of unspecified bronchus or lung (HCC) [C34.90]Start: 08-15-2024 End: 42-65-1648lxlzfuwynrHdqnsEdvin Jolley PA-C Work Phone: Hematology/OncologyComment on above:UlcersRefill RequestStart: 08-12-2024 End: 18-62-0120QivgmcScezgShyla Mayer APRN.CNP Work Phone: Hematology/OncologyComment on above:Refill Request Start: 08-09-2024 End: 93-07-4762Xawvgwv encounter procedureShyla Mayer APRN.CNP Work Phone: Hematology/OncologyStart: 08-09-2024 End: 73-55-1264ziexsixaziDdejbEzio Mayer APRN.MULTIGRAPH OPERATOR Work Phone: Hematology/OncologyComment on above:Malignant neoplasm of unspecified part of unspecified bronchus or lung (HCC) (Primary Dx); Diarrhea, unspecified type; Hypothyroidism due to medicationStart: 07-29-2024 End: 40-40-7216imszbhiaafJILISEZ DOLORESAMMADIFacility:[facility] Start: 07-25-2024 End: 92-02-6367Shvhhqfuu Patricia Olivares [facility] Work Phone: Hematology/OncologyComment on above:Medication Update (Keytruda whitebag update)Start: 07-25-2024 End: 86-37-0795Vouveyi encounter procedureShyla Mayer APRN.STEPHANIE Work Phone: Hematology/OncologyStart: 07-25-2024 End: 02-08-9714mnbhoyxfuaRvdgx Martinez [employer]AT TEAM LEAD.MULTIGRAPH OPERATOR Work Phone: Hematology/OncologyComment on above:Malignant neoplasm of hilus of lung, unspecified laterality (HCC) (Primary Dx); Colitis, acute; 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); Diarrhea, unspecified typeStart: 07-24-2024 End: 58-48-5333RdcznePgxuy Schmitt [facility] Work Phone: [facility] HB-3Comment on above:Refill Request (Keytruda rx to send to [employer])Start: 07-20-2024 End: 86-10-7123KsvstbFvpjf Abhyankar MD Work Phone: Hematology/OncologyComment on above:Refill Request Start: 07-19-2024 End: 63-69-6793UwntbjBzrvmRema Jolley PA-C Work Phone: Hematology/OncologyComment on above:Refill Request Start: 07-08-2024 End: 58-81-6185taurzebayxERDXWCQAYQX RANDELLNot AvailableStart: 07-08-2024 End: 48-37-9722Myrong outpatient visit 25 minutesChristopher Randell SINGH Work Phone: aNA BELLEVUEComment on above:Ischemic stroke (CMS/HCC) (Primary Dx); Malignant neoplasm of lung, unspecified laterality, unspecified part of lung (CMS/HCC); 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)Start: 07-08-2024 End: 29-94-3724Zzumuz flowsheetChristopher Randell DO Work Phone: aTARA BELLEVUEStart: 07-08-2024 End: 45-05-8569Lwowhe flowsheetChristopher Randell DO Work Phone: aTARA BELLEVUEStart: 07-05-2024 End: 47-31-9392Zwurtzdkx encounterBecky Olivares RN Work Phone: Hematology/OncologyComment on above:Care Coordination (Treatment Update)Start: 07-04-2024 End: 45-29-1835jflngdiewoRHWXF ABHYANKARFacility:[facility]art: 06-20-2024 End: 99-33-9911Dyzqad outpatient visit 25 minutesMichael Britton MD Work Phone: Hematology/OncologyComment on above: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) (Primary Dx); Hypothyroidism due to medication; Elevated liver enzymes; Malaise and fatigue; Abnormal blood chemistryStart: 06-20-2024 End: 99-43-3637qltogrthsiBUFZB ABHYANKARFacility:[facility]tart: 06-17-2024 End: 70-83-2581Nxmoaqlyv Result EncounterStello Bennett NP Work Phone: noms External Department UnsolicitedStart: 06-17-2024 End: 22-19-2920Ntzwiprdp Result EncounterStello Bennett TIRE DUSTER Work Phone: noms External Department UnsolicitedStart: 06-14-2024 End: 09-02-7771Zfgmjtlcy encounterMichael Britton MD Work Phone: Hematology/OncologyComment on above:Lab OrdersStart: 06-13-2024 End: 00-46-5611Bjynwh outpatient visit 25 minutesAlis Fonseca APRN.CNP Work Phone: Hematology/OncologyComment on above:Malignant neoplasm of hilus of lung, unspecified laterality (HCC) (Primary Dx); 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); Elevated liver enzymesStart: 06-13-2024 End: 61-37-3835kcyqtcboelGjhzk [address] [place] Work Phone: Hematology/OncologyComment on above:Malignant neoplasm of unspecified part of unspecified bronchus or lung (HCC) (Primary Dx)Start: 06-10-2024 End: 84-46-9637qwzcaupmxyKROWHWOR E PERRYFacility:EU BellevueStart: 06-05-2024 End: 57-50-4694kuehiyoxmkRniyd M Musser PA-C Work Phone: Hematology/OncologyComment on above:Ulcer medsRefill RequestStart: 05-02-2024 End: 49-11-2396Xqjcaezvc encounterMichael Britton MD Work Phone: Cancer Appts MCComment on above:Results; Care Coordination (PET results)Start: 05-02-2024 End: 36-75-5698Weghdl outpatient visit 25 minutesMichael Britton MD Work Phone: Hematology/OncologyComment on above:Malignant neoplasm of hilus of lung, unspecified laterality (HCC) (Primary Dx); 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); Malignant neoplasm of right lung, unspecified part of lung (HCC); 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)Start: 05-02-2024 End: 58-13-9477pagnxwtyehCenui [address] [place] Work Phone: Hematology/OncologyComment on above:Malignant neoplasm of unspecified part of unspecified bronchus or lung (HCC) (Primary Dx); Malignant neoplasm of upper lobe of left lung (HCC)Start: 04-30-2024 End: 55-22-2376yjfuaxoilaHZDJM ABHYANKARFacility:[facility]tart: 04-30-2024 End: 73-06-1451Yehqemkdzh hospital visit by physicianArrival Time Radiology Work Phone: Radiology Pet CTComment on above: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) [C71.1]Start: 04-28-2024 End: 27-84-5423EbakgyJfoerEspinoza Mayer APRN.CNP Work Phone: Hematology/OncologyComment on above:Refill Request Start: 04-01-2024 End: 92-01-4442Iyjbnyfwjb hospital visit by physicianMri 3 Radio Main Q (I-Stat/1.5t/3t) Work Phone: MRI QStart: 03-29-2024 End: 14-14-0761xcjlitoloyLbyqv M Musser PA-C Work Phone: Hematology/OncologyComment on above:UtiStart: 03-25-2024 End: 26-13-4172ojobjktwuzFqqrq Abhyankar MD Work Phone: Hematology/OncologyComment on above:MedicationStart: 03-21-2024 End: 41-51-3235Ztbgia outpatient visit 25 minutesMichael Britton MD Work Phone: Hematology/OncologyComment on above: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) (Primary Dx); Malignant neoplasm of right lung, unspecified part of lung (HCC); 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); Malignant neoplasm of hilus of lung, unspecified laterality (HCC)Start: 03-21-2024 End: 44-94-9379kwhxjvshtyQgslm Lola Murphyy Work Phone: Hematology/OncologyComment on above:Malignant neoplasm of unspecified part of unspecified bronchus or lung (HCC) (Primary Dx); Malignant neoplasm of upper lobe of left lung (HCC)Start: 03-14-2024 End: 57-18-3944Zuavig Mirlande Garcia TIRE DUSTER Work Phone: [facility] [facility] R[facility]TEStart: 03-14-2024 End: 80-26-7106Smedlz Mirlande Garcia TIRE DUSTER Work Phone: [facility] [place] [facility]TEStart: 03-14-2024 End: 27-64-6604Zkhspu outpatient visit 25 minutesKrystina Garcia NP Work Phone: [facility] [place] STATE ROUTEComment on above:Ischemic stroke (CMS/HCC) (Primary Dx); Malignant neoplasm of lung, unspecified laterality, unspecified part of lung (CMS/HCC); Tobacco use; Episodic migraine (CMS/HCC); 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)Start: 03-14-2024 End: 60-62-0990hftdeqniuaGNEGRZ MORRISNot AvailableStart: 02-28-2024 End: 07-35-7220Eyljaq outpatient visit 15 minutesMincarl Jolley PA-C Work Phone: Hematology/OncologyComment on above: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) (Primary Dx); Malaise and fatigueStart: 02-28-2024 End: 02-73-4325lxibloizxsPNUHY M MUSSERFacility:[facility]tart: 02-19-2024 End: 92-12-4959Ucbjmtpzr Oncology NotePramansoor Mauro MD Work Phone: [facility] OncologyComment on above:Treatment PlanningCompletion NoteStart: 02-19-2024 End: 99-53-6690Uxmjexp encounter procedurePlacement James Stephens Work Phone: NeurosurgeryComment on above:Secondary malignant neoplasm of brain (HCC) (Primary Dx)Start: 02-19-2024 End: 84-13-0908Kqequmsqpm hospital visit by Tomasa Robbins (1.5t) Work Phone: RadiologyComment on above: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]Start: 02-19-2024 End: 02-00-4119sjcjjwyzpeLXDVFTA MOHAMMADIFacility:[facility] Start: 02-16-2024 End: 73-41-4996Jgjlbnbms encounterAlfredo More MD Work Phone: NeurosurgeryComment on above:Preparations For Procedures (GKRS)Start: 02-15-2024 End: 88-46-9763Uvtmrqt encounter procedureAliirma More MD Work Phone: [facility] CenterComment on above: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)Start: 02-15-2024 End: 93-78-0829ukmdaagtepBjgyvogo Yu MD Work Phone: Radiation OncologyComment on above:Primary malignant neoplasm 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 (HCC) (Primary Dx)Start: 02-15-2024 End: 16-03-3323Cayexeuxqoew consultation with patientJessika Carter MD Work Phone: Radiation OncologyStart: 02-07-2024 End: 71-73-1692Kroumt outpatient visit 40 minutesMincarl Jolley PA-C Work Phone: Hematology/OncologyComment on above: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) (Primary Dx); Malignant neoplasm of hilus of lung, unspecified laterality (HCC); Malaise and fatigueStart: 02-07-2024 End: 64-09-9241wsixhecumaSviol Lola [place] Work Phone: Hematology/OncologyComment on above:Malignant neoplasm of unspecified part of unspecified bronchus or lung (HCC) (Primary Dx); Malignant neoplasm of upper lobe of left lung (HCC)Start: 02-06-2024 End: 98-23-5182Yivcpvvme encounterSelfHighsmith-Rainey Specialty Hospital Brain Tumor CenterComment on above:Triage (Internal Referral )Start: 02-02-2024 End: 41-47-1408ShxcwdJvketAnshu Adhikari MD Work Phone: Hematology/OncologyComment on above:Med Change Request Start: 02-02-2024 End: 24-63-1622Cuzcekhuh encounterMichael Britton MD Work Phone: Cancer Appts MCComment on above:AppointmentStart: 02-01-2024 End: 27-41-0874PxkiowBqkzbKanika Britton MD Work Phone: Hematology/OncologyComment on above:Refill RequestLab OrdersStart: 01-31-2024 End: 82-65-1521Mkoqzopca encounterRaphael Jolley PA-C Work Phone: Hematology/OncologyComment on above:Results; Care Coordination (MRI results)Episodic migraine (CMS/HCC) (Primary Dx)Start: 01-26-2024 End: 03-77-3233IzuxguFaxwpKanika Britton MD Work Phone: Hematology/OncologyComment on above:Refill Request Start: 01-23-2024 End: 04-76-9144kgnksttypdBddudCk Britton MD Work Phone: Hematology/OncologyComment on above:MriStart: 01-12-2024 End: 52-13-0078vantgejpcqAWNWZ ABHYANKARFacility:[facility]tart: 01-12-2024 End: 91-78-1225Dsmpwa outpatient visit 25 minutesMichael Britton MD Work Phone: Hematology/OncologyComment on above:Malignant neoplasm of unspecified part of unspecified bronchus or lung (HCC) (Primary Dx); Malignant neoplasm of right lung, unspecified part of lung (HCC); 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); Syncope and collapse; Malaise and fatigue; Nonintractable headache, unspecified chronicity pattern, unspecified headache typeStart: 01-12-2024 End: 11-03-9675jimcaptctlGMOHM ABHYANKARFacility:[facility]tart: 01-12-2024 End: 16-19-4965Tjsvinmgvd hospital visit by physicianArrival Time Radiology Work Phone: Radiology Pet CTComment on above:Malignant neoplasm of unspecified part of unspecified bronchus or lung (HCC) [C34.90]Start: 01-10-2024 End: 93-53-0742ZvbflmOgfkiAnshu Adhikari MD Work Phone: Hematology/OncologyComment on above:Refill Request Start: 12-27-2023 End: 03-53-0843Rnnfqovss Aldair Britton MD Work Phone: Cancer Appts MCComment on above:ResultsStart: 12-27-2023 End: 09-64-9247llhrlutvfrBlzva [address] [place] Work Phone: Hematology/OncologyComment on above:Malignant neoplasm of hilus of lung, unspecified laterality (HCC) (Primary Dx); Malignant neoplasm of upper lobe of left lung (HCC)Start: 12-27-2023 End: 88-88-3322Rmepdf outpatient visit 40 minutesMichael Britton MD Work Phone: Hematology/OncologyComment on above:Malignant neoplasm of unspecified part of unspecified bronchus or lung (HCC) (Primary Dx); Malignant neoplasm of hilus of lung, unspecified laterality (HCC); Malignant neoplasm of right lung, unspecified part of lung (HCC); 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); Syncope and collapseStart: 12-22-2023 End: 49-39-7983Okdsqrirt encounterMichael Britton MD Work Phone: Hematology/OncologyComment on above:Lab OrdersStart: 12-18-2023 End: 23-18-4716MkquwcDoiktJake DINH-C Work Phone: Hematology/OncologyComment on above:Refill Request Start: 12-15-2023 End: 43-95-2359IswwkvErvncJake DINH-C Work Phone: Hematology/OncologyComment on above:Refill Request Start: 12-15-2023 End: 20-84-8253DkdfxoUzqczKanika Britton MD Work Phone: Hematology/OncologyComment on above:Refill Request Start: 11-30-2023 End: 84-87-4075khmthemfhiMpptmMerlene DINH-C Work Phone: Hematology/OncologyComment on above:ThrushStart: 11-15-2023 End: 42-54-8818wvfknvfggdWsttc [address] Work Phone: Hematology/OncologyComment on above:Malignant neoplasm of hilus of lung, unspecified laterality (HCC) (Primary Dx); Malignant neoplasm of upper lobe of left lung (HCC)Start: 11-15-2023 End: 68-40-9992Hiemgt outpatient visit 25 minutesMichael Britton MD Work Phone: Hematology/OncologyComment on above:Malaise and fatigue (Primary Dx); Malignant neoplasm of hilus of lung, unspecified laterality (HCC); Anemia, unspecified typeStart: 11-07-2023 End: 31-29-5684Fsngqfpqh encounterMichael Britton MD Work Phone: Hematology/OncologyComment on above:Lab OrdersStart: 11-07-2023 End: 41-39-8540Gklgizu encounter procedureJESSIKA RINCON [facility] start: 00-80-8029ZfvfgtNbcseAnshu Adhikari MD Work Phone: Hematology/OncologyComment on above:Refill Request Start: 81-53-3024Cfdiptvre encounterOtoniel Adhikari MD Work Phone: Cancer Appts MCComment on above:Referral Information (Podiatry)Start: 10-03-2023 End: 10-43-6434ggstpawcttVqvfo Karamlou MD Work Phone: Hematology/OncologyComment on above:Malignant neoplasm of hilus of lung, unspecified laterality (HCC) (Primary Dx); OnychomycosisMalignant neoplasm of hilus of lung, unspecified laterality (HCC) (Primary Dx); Malignant neoplasm of upper lobe of left lung (HCC)Start: 10-03-2023 End: 64-73-1339Bcoyqrl encounter Emma Adhikari MD Work Phone: Hematology/OncologyStart: 82-39-1529Kvojblvuh encounterMila Briscoe RN Work Phone: Hematology/OncologyComment on above:Care Coordination (Stable CT results)Start: 09-28-2023 End: 22-48-8291Ovpqaythhc hospital visit by physicianArrival Time Radiology Work Phone: Radiology Pet CTComment on above:Malignant neoplasm of hilus of lung, unspecified laterality (HCC) [C34.00]Start: 70-45-7692Qsuhfl Raphael Jolley PA-C Work Phone: Hematology/OncologyComment on above:Refill Request Start: 99-77-0431Cgkpcwube encounterMila Briscoe RN Work Phone: Hematology/OncologyComment on above:Care Coordination (Lab orders)Start: 01-83-9116Nlyypwxbm encounterOtoniel Adhikari MD Work Phone: Hematology/OncologyComment on above:Patient Update Start: 08-22-2023 End: 31-28-6854otleqbzssaNnaraSukhi Adhikari MD Work Phone: Hematology/OncologyComment on above:Malignant neoplasm of hilus of lung, unspecified laterality (HCC) (Primary Dx); Anemia, unspecified type; Malignant neoplasm of right lung, unspecified part of lung (HCC)Malignant neoplasm of hilus of lung, unspecified laterality (HCC) (Primary Dx); Malignant neoplasm of upper lobe of left lung (HCC)Start: 08-22-2023 End: 49-55-5019Cmxehlb encounter Emma Adhikari MD Work Phone: Hematology/OncologyStart: 07-11-2023 End: 44-24-0244wweuqxwalhYtyrs [address] [place] Work Phone: Hematology/OncologyComment on above:Malignant neoplasm of upper lobe of left lung (HCC) (Primary Dx); Malignant neoplasm of hilus of lung, unspecified laterality (HCC)Start: 07-11-2023 End: 32-45-7681Ubtixm outpatient visit 15 minutesMincarl Jolley PA-C Work Phone: Hematology/OncologyComment on above:Malignant neoplasm of hilus of lung, unspecified laterality (HCC) (Primary Dx); Anemia, unspecified type; Malaise and fatigueStart: 36-91-6120odmgyrwqwiJbntvSukhi Adhikari MD Work Phone: Hematology/OncologyComment on above:UtiStart: 06-20-2023 End: 46-86-5095mgzgjwoyrnMxnncSukhi Adhikari MD Work Phone: Hematology/OncologyComment on above:Malignant neoplasm of hilus of lung, unspecified laterality (HCC) (Primary Dx); Anemia, unspecified typeMalignant neoplasm of upper lobe of left lung (HCC) (Primary Dx); Malignant neoplasm of hilus of lung, unspecified laterality (HCC)Start: 06-20-2023 End: 89-99-1664Kqeoxoj encounter Emma Adhikari MD Work Phone: SANDUSKYStart: 85-44-8859Hocjldnae encounterTifjason Briscoe RN Work Phone: Hematology/OncologyComment on above:Care Coordination (PET results)Start: 04-61-6022Slayqfqlu encounterMila Briscoe RN Work Phone: Hematology/OncologyComment on above:Care Coordination (PET results)Start: 06-14-2023 End: 84-54-7384Ssnswzisyy hospital visit by physicianArrival Time Radiology Work Phone: Radiology Pet CTComment on above:Malignant neoplasm of hilus of lung, unspecified laterality (HCC) [C34.00]Start: 05-30-2023 End: 26-54-0592rgqrjgiygiSoedjMerlene Jolley PA-C Work Phone: Hematology/OncologyComment on above:Malignant neoplasm of hilus of lung, unspecified laterality (HCC) (Primary Dx); Malaise and fatigue; Malignant neoplasm of unspecified part of unspecified bronchus or lung (HCC) Malignant neoplasm of upper lobe of left lung (HCC) (Primary Dx); Malignant neoplasm of hilus of lung, unspecified laterality (HCC)Start: 05-30-2023 End: 85-65-5243Gfjsmny encounter Malcolm Jolley PA-C Work Phone: SANDUSKYStart: 05-09-2023 End: 59-24-0857quigedrvvkYkopdEdvin Jolley PA-C Work Phone: Hematology/OncologyComment on above:Malignant neoplasm of hilus of lung, unspecified laterality (HCC) (Primary Dx); Malaise and fatigueMalignant neoplasm of upper lobe of left lung (HCC) (Primary Dx); Malignant neoplasm of hilus of lung, unspecified laterality (HCC)Start: 05-09-2023 End: 89-64-5956Gvqyelj encounter procedureRaphael Jolley PA-C Work Phone: SANDUSKYStart: 02-94-1876Epbgxxinn encounterMila Briscoe RN Work Phone: Hematology/OncologyComment on above:Care Coordination (MRI results)Start: 03-01-2023 End: 51-07-4837Tbztacpxgl hospital visit by physicianArrival Time Radiology Work Phone: Radiology Pet CTComment on above:Malignant neoplasm of upper lobe of left lung (HCC) [C34.12]Start: 02-15-2023 End: 64-72-0365usemgfbjsgTxhcgSukhi Adhikari MD Work Phone: Hematology/OncologyComment on above:Malignant neoplasm of upper lobe of left lung (HCC) (Primary Dx)Malignant neoplasm of upper lobe of left lung (HCC) (Primary Dx); Malignant neoplasm of hilus of lung, unspecified laterality (HCC)Start: 02-15-2023 End: 98-26-7515Emgvvef encounter Emma Adhikari MD Work Phone: SANDUSKYStart: 01-25-2023 End: 68-58-6654emympiaoguAgvixEdvin Jolley PA-C Work Phone: Hematology/OncologyComment on above:Anemia, unspecified type (Primary Dx); Malignant neoplasm of upper lobe of left lung (HCC); Malaise and fatigue; DysuriaDysuria (Primary Dx); Malignant neoplasm of upper lobe of left lung (HCC); Malignant neoplasm of hilus of lung, unspecified laterality (HCC); Anemia, unspecified typeStart: 01-25-2023 End: 40-21-7478Kjvsihu encounter procedureRaphael DINH-C Work Phone: SANDUSKYStart: 01-12-2023 End: 03-92-5383exwlqjentcPljvad Ruttino Other [facility] [employer] Other Start: 01-21-3552DGKZ visit new Randi Lewis [facility] Vascular SurgeryStart: 51-50-6893Zoqxhmvkn encounterTifjason Briscoe RN Work Phone: Hematology/OncologyComment on above:Care Coordination (C1D1 treatment follow up call)Start: 01-04-2023 End: 41-97-3497xdxbhiuxvuZqgiq M Musser PA-C Work Phone: Hematology/OncologyComment on above:Malignant neoplasm of upper lobe of left lung (HCC) (Primary Dx); Malaise and fatigueMalignant neoplasm of upper lobe of left lung (HCC) (Primary Dx); Malignant neoplasm of hilus of lung, unspecified laterality (HCC)Start: 01-04-2023 End: 40-11-3355Zdvtcdj encounter procedureRaphael DINH-C Work Phone: SANDUSKYStart: 89-39-2608Gooetmzsn encounterRaphael DINH-C Work Phone: Hematology/OncologyComment on above:Lab OrdersStart: 04-45-1079Lbxwbtqqo encounterTifjason Briscoe RN Work Phone: Hematology/OncologyComment on above:Care Coordination (Discoloration of left ring finger)Start: 01-02-2023 End: 37-83-1766Tpabxbdgnr hospital visit by physicianArrival Time Radiology Work Phone: Radiology Pet CTComment on above:Neoplasm of lung [D49.1]Start: 01-02-2023 End: 47-48-3267Njxnxnq evaluation of patient and reportTifjason Briscoe RN Work Phone: Hematology/OncologyComment on above:Malignant neoplasm of upper lobe of left lung (HCC) (Primary Dx)Start: 45-29-9763rgvfbzstypXvmvySukhi Adhikari MD Work Phone: Hematology/OncologyComment on above:PathologyStart: 11-23-2022 End: 37-55-4233vfmqladjolRLYMDMAZ WILTSHIREFacility:[facility] Hospitaltart: 11-23-2022 End: 07-56-3284Uwubxzq encounter procedureChristiana Hospital MEAT TEAM LEADNATI Work Phone: oracic SurgeryComment on above:Malignant neoplasm of unspecified part of unspecified bronchus or lung (HCC) (Primary Dx); Lung noduleStart: 11-23-2022 End: 01-57-4315Sigivnobfq hospital visit by physicianTata Parsons [facility] RegionJERELOSMOND GENERAL HOSPITALomment on above:Malignant neoplasm of lower lobe of right lung (HCC) [C34.31]Start: 11-11-2022 End: 53-75-4500Xxdrbkbru to same day surgery centerAnesthesia Clearance Work Phone: [facility] Work Phone: Start: 11-11-2022 End: 70-97-8982Cybbujx encounter procedureAnesthesia Clearance Work Phone: CardiothoracicComment on above:Encounter for preoperative anesthesiology assessment for thoracic surgery (Primary Dx)Lung nodule (Primary Dx)Start: 11-11-2022 End: 99-85-3892Wbcekcq encounter statusCard InjectionHerculaneum ClinicStart: 11-11-2022 End: 69-71-2362Hvuslqiujy hospital visit by physicianKorina InjectionMolecular ImagingComment on above:Malignant neoplasm of unspecified part of unspecified bronchus or lung (HCC) [C34.90]Start: 11-01-2022 End: 84-99-2927Ftotdxt encounter procedureJESSIKA RINCON [facility] start: 10-31-2022 End: 62-74-8878Kemdfsm encounter statusArrival Radiology Work Phone: [facility]: 10-31-2022 End: 54-48-4708Ovpzpakvik hospital visit by physicianArrival Time Radiology Work Phone: Radiology Pet CTComment on above:Malignant neoplasm of unspecified part of unspecified bronchus or lung (HCC) [C34.90]Start: 10-10-2022 End: 54-96-5171Egk Drop offJESSIKA RINCON [facility] Start: 10-10-2022 End: 42-82-7246Dlijdqm encounter procedureMELISSAIFER Lupe MCKENZIE [facility] start: 09-21-2022 End: 87-31-1656qzvykufodnSWFRIO P RAYMONDPulmonary LabComment on above: SpirometryStart: 09-21-2022 End: 84-36-0616Yzjfcyr encounter procedurePulm Lab [place] Work Phone: [place] 2Comment on above:Lung nodule [R91.1] (Primary Dx)Start: 30-78-1767Htzuctcrn encounterBecky Olivares RN Work Phone: Hematology/OncologyComment on above:Care Coordination (MRI Results)Start: 09-17-2022 End: 07-59-3756Gzbqyfmzes hospital visit by physiciani [facility] (I-Stat/1.5t) Work Phone: RadiologyComment on above:Malignant neoplasm of lower lobe of left lung (HCC) [C34.32]Start: 08-17-2022 End: 30-40-1725jxpotgjoztIgqchSukhi Adhikari MD Work Phone: Hematology/OncologyComment on above:Malignant neoplasm of hilus of lung, unspecified laterality (HCC) (Primary Dx)Start: 08-17-2022 End: 84-80-1489Gxnqrug encounter procedureOtoniel Adhikari MD Work Phone: SANDUSKYStart: 08-10-2022 End: 74-31-5632Gvcgtbjswe hospital visit by physicianAna Smith MD Work Phone: admittingComment on above:Bronchiolar disease [J98.09] Start: 08-05-2022 End: 95-33-9143Qdptdui encounter statusArrival Radiology Work Phone: [facility]art: 08-05-2022 End: 05-46-7464Wuxeghsche hospital visit by physicianArrival Time Radiology Work Phone: Radiology Pet CTComment on above:Small cell carcinoma of lung, 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]Start: 07-20-2022 End: 63-59-2826bwwsfhegbpVvjrxSukhi Adhikari MD Work Phone: Hematology/OncologyComment on above:Malignant neoplasm of hilus of lung, unspecified laterality (HCC); Anemia, unspecified typeStart: 07-20-2022 End: 34-47-6306Ltrmzub encounter procedureOtoniel Adhikari MD Work Phone: SANDUSKYStart: 07-15-2022 End: 09-10-6715Ccmqcibtua hospital visit by physicianArrival Time Radiology Work Phone: Radiology Pet CTComment on above:Neoplasm of lung [D49.1]Start: 16-98-2484VtwaevOfqcpRema Jolley PA-C Work Phone: Hematology/OncologyComment on above:Refill Request Start: 07-07-2022 End: 92-13-8013xqiwcxkecsYLHKD KARAMLOUFacility:B8Feula: 84-01-3504Rxalmfxuu encounterTegenevieve Miranda HUCAdmittingComment on above:Appointment; [employer] Consultant - OtherStart: 96-27-5125Gwxniw OnlyAnnalisa Whiteside PA-C Work Phone: pulmonary MedicineComment on above:Preoperative examination (Primary Dx)Start: 79-57-0200Pckvoxnjjmotg examination doneAnnalisa Whiteside PA-C Work Phone: pulmonary MedicineStart: 85-34-4074zavcmzlxcdMkops Gillespie MD Work Phone: Pulmonary MedicineComment on above:Bronchoscopy Scheduling (Initial Bronch Request )Start: 12-82-6568Mugwsna encounter status Dre Cantor MD Work Phone: Pulmonary MedicineStart: 95-39-4348Wukclhnuw encounter Mila Briscoe RN Work Phone: Hematology/OncologyComment on above:Care Coordination (Clinical update)Start: 06-23-2022 End: 95-94-8070Rvzuoafbnn hospital visit by physicianArrival Time Radiology Work Phone: Radiology Pet CTComment on above:Malignant neoplasm of unspecified part of unspecified bronchus or lung (HCC) [C34.90]Start: 84-54-5244RvfrbrStvzk M Musser PA-C Work Phone: Hematology/OncologyComment on above:Refill Request Start: 05-13-2022 End: 18-91-1795yholxnrxodPX DOCTOR MISCFacility:L9Mjghq: 05-04-2022 End: 17-27-4378Bmnkwtq encounter procedureJESSIKA RINCON [facility] start: 04-18-2022 End: 67-12-9517itojxfmmsrCxonfxzg [place] Other [place] Other Start: 98-15-5941Eecvacdzq encounterGilson Vergara [facility] GastroenterologyStart: 04-07-2022 End: 27-81-1537rvzjopflbpVqtjy Karamlou MD Work Phone: Hematology/OncologyComment on above:Malignant neoplasm of unspecified part of unspecified bronchus or lung (HCC) (Primary Dx); Malignant neoplasm of hilus of lung, unspecified laterality (HCC); Anemia, unspecified typeStart: 04-07-2022 End: 73-42-8867Jfuzmmq encounter procedureOtoniel Adhikari MD Work Phone: SANDUSKYStart: 03-30-2022 End: 21-25-1409Prfjrbutxh hospital visit by physicianArrival Time Radiology Work Phone: Radiology Pet CTComment on above:Malignant neoplasm of unspecified part of unspecified bronchus or lung (HCC) [C34.90]Start: 72-76-2198Cchvwicnm encounterOtoniel Adhikari MD Work Phone: Cancer Appts MCComment on above:Referral Information; Care Coordination (Urology referral)Start: 03-02-2022 End: 18-37-0813wluktqphmzEC RAPHAEL JOLLEYFacility:Y7Eplhs: 31-40-3173vepphoupzv Otoniel Adhikari MD Work Phone: Hematology/OncologyComment on above:ThrushStart: 12-08-2021 End: 73-85-3659pnshouuemfAlbqkcyw [place]ormack Other [place] Other Start: 77-86-5061Ctldahyze encounterLasaqib Vergara [facility] GastroenterologyStart: 94-71-3002Xcsokgdmv encounterAngella Malloy RN Hematology/OncologyComment on above:Patient QuestionStart: 11-30-2021 End: 71-15-6128woivjyobhrPMIWPSTYO NO FAMILYFacility:[facility] Hospitaltart: 11-30-2021 End: 73-70-8257Rfkguaw encounter Sourav Mejias Work Phone: [facility] Start: 60-46-7952dgcmolerfhAbqzctxo:9090Start: 11-10-2021 End: 69-48-7715vdroevemwwERORHVYBFGR HASSETTFacility:Q5Txtxi: 11-04-2021 End: 78-25-1300skcfnydcszYEJAQUOQ PERRYFacility:B9Wladb: 12-69-7968wqjpfxaivt Raphael Jolley PA-C Work Phone: Hematology/OncologyComment on above:ThrushStart: 78-07-8534Avhmfkegi encounterMila Briscoe RN Work Phone: Hematology/OncologyComment on above:Care Coordination (lab results)Start: 10-01-2021 End: 30-91-3637xacpvdnbxcMqwhc [place] Other [facility] [place] Other Start: 01-04-0316Qcucmydqn encounterDavid HykesFPG GastroenterologyStart: 70-61-5051xcpfkdukxmHnqon Karamlou MD Work Phone: Hematology/OncologyComment on above:Covid testStart: 62-78-2226X-mail encounter from Óscar Adhikari MD Work Phone: SANDUSKYStart: 25-04-6866Sutszksbc encounterOtoniel Adhikari MD Work Phone: Cancer Appts MCComment on above:Referral Information (Neurology)Start: 09-29-2021 End: 91-73-5918ccdfhierucFahuw Karamlou MD Work Phone: Hematology/OncologyComment on above:Cerebrovascular accident (CVA) due to occlusion of small artery (HCC) (Primary Dx); Malignant neoplasm of unspecified part of unspecified bronchus or lung (HCC) Start: 09-29-2021 End: 16-75-6225Dgurpls encounter Emma Adhikari MD Work Phone: SANDUSKYStart: 09-23-2021 End: 93-20-0739xbuqdnwtovBrmia Bere Other [place] Other Start: 53-85-2561Pepnxf outpatient visit 25 minutes Chris BlackburnFPG GastroenterologyStart: 09-21-2021 End: 39-26-3540vburprozxfNC MINDY M MUSSERFacility:A4Kwybg: 09-14-2021 End: 31-15-7840eimqjippwcObzce M Musser PA-C Work Phone: Hematology/OncologyComment on above:Abnormal weight loss (Primary Dx); Malignant neoplasm of unspecified part of unspecified bronchus or lung (HCC); Frequent UTIStart: 09-14-2021 End: 29-26-0988Mmupsns encounter procedureRaphael Jolley PA-C Work Phone: SANDUSKYStart: 16-68-1490Wnsedqgtl encounterRaphael Jolley PA-C Work Phone: Cancer Appts MCComment on above:Referral Information Start: 80-95-1440Ameuxzrkl encounterBecky Olivares RN Work Phone: Hematology/OncologyComment on above:Care Coordination (CT Results)Start: 09-07-2021 End: 81-03-0267Xakatqqwow hospital visit by physicianArrival Time Radiology Work Phone: Radiology Pet CTComment on above:Malignant neoplasm of unspecified part of unspecified bronchus or lung (HCC) [C34.90]Start: 47-13-3937Axahvdpnt encounterMarry Simpson RNHematology/OncologyComment on above:ResultsStart: 24-91-2197hwyibrqutcHnasj M Musser PA-C Work Phone: Hematology/OncologyStart: 08-27-2021 End: 23-98-7917pnlfulubwqZNChevy JOLLEYFacility:S0Gptal: 08-26-2021 End: 27-45-1784ikildehxlcOrkkj M Musser PA-C Work Phone: Hematology/OncologyComment on above:UtiStart: 08-16-2021 End: 90-60-5685fnbcbtstbqDquzn [place] Other [employer] Other Start: 13-84-9965Trzllkovf encounterDavid HykesFPG GastroenterologyStart: 03-29-5142wtrobomvcpNxwdo M Musser PA-C Work Phone: Hematology/OncologyComment on above:ZofranStart: 05-17-2021 End: 83-07-6220rgupmictxkUcrlx [place] Other [employer] Other Start: 39-37-5976Yfkofl outpatient visit 10 minutes Chris HykesFPG GastroenterologyStart: 05-12-2021 End: 03-80-1810uvbzhubsphKicsm [place]kes Other [employer] Other Start: 61-90-9831Nbqimuddz encounterDavid HykesFPG GastroenterologyStart: 04-13-2021 End: 98-99-2104vajmeftstbLewwb [place] Other [employer] Other Start: 87-18-6730Fccvfy outpatient new 45 minutesDavid HykesFPG GastroenterologyStart: 02-25-2021 End: 31-93-1613Kmjasdcnaf hospital visit by physicianArrival Time Radiology Work Phone: Radiology Pet CTComment on above:Lung nodules [R91.8] Procedures DateProcedureProcedure DetailPerforming ClinicianStart: 58-86-7248Wizx bld gluc mntr dev cleared fda spec home useCcf ProviderStart: 00-43-8006HZF LIPID PROFILE (FASTING)Aneta Bennett TIRE DUSTER Work Phone: Start: 17-87-7427CQOI LIVER PANELSarah Bennett TIRE DUSTER Work Phone: Start: 01-75-8615Zgcy bld gluc mntr dev cleared fda spec home useCcf ProviderStart: 66-74-7724Pq guidance stereotactic localization Alfredo More MD Work Phone: Start: 84-24-9688Qfvxzoqw magnetic resonance procedure Alfredo More MD Work Phone: Start: 74-62-1277Vtrwceuckfwf destruction of lesion using gamma radiationMuhammad Iraidamini Start: 53-93-6350Hmba bld gluc mntr dev cleared fda spec home useCcf ProviderStart: 22-48-2983Mv abdomen & pelvis w/contrast Newton Adhikari MD Work Phone: Start: 16-99-3329Jr thorax w/contrast Newton Adhikari MD Work Phone: Start: 91-46-8059Sip imaging ct attenuation skull base mid-thighRaphael Jolley PA-C Work Phone: Start: 79-64-6482Xohx bld gluc mntr dev cleared fda spec home useCcf ProviderStart: 00-05-0000Bqn imaging ct attenuation skull base mid-thighOtoniel Adhikari MD Work Phone: Start: 77-07-6699Nszb bld gluc mntr dev cleared fda spec home useCcf ProviderStart: 68-74-6965Udb imaging ct attenuation skull base mid-thighOtoniel Adhikari MD Work Phone: Start: 56-28-4636Lweq bld gluc mntr dev cleared fda spec home useCcf ProviderStart: 90-28-7721Uezgwvlpxp exam chest 2 viewsMarbennyr Mckenna Pastrana MEAT TEAM LEAD.MULTIGRAPH OPERATOR Work Phone: Start: 35-27-9569Kbstuktqyi spect multiple studies Evette Walden MD Work Phone: Start: 27-80-3253Ie thorax w/contrast Olive Walden MD Work Phone: Start: 03-18-2240Kp diffusing capacityDaerin Walden MD Work Phone: Start: 81-76-0483Hwo brain brain stem w/o w/contrast Newton Adhikari MD Work Phone: Start: 21-59-7314Noagljx incl fluor gdnce dx w/cell washg spxOtoniel Adhikari MD Work Phone: Start: 91-55-3258JthziyYGKYEDYU MCKENZIE Start: 00-99-7992Og thorax w/o contrast Vianey Cantor MD Work Phone: Start: 48-16-5705Ayv imaging ct attenuation skull base mid-thighOtoniel Adhikari MD Work Phone: Start: 37-29-0479Horh bld gluc mntr dev cleared fda spec home useCcf ProviderStart: 32-78-0646Fb thorax w/contrast Newton Adhikari MD Work Phone: Start: 31-58-0952Jb abdomen & pelvis w/contrast Newton Adhikari MD Work Phone: Start: 20-84-2566Ph thorax w/contrast Newton Adhikari MD Work Phone: Start: 12-77-7369NT angiography of headDO Finn Mejias Work Phone: Start: 32-54-9035SN angiography of neck vesselsDO Finn Mejias Work Phone: Start: 44-57-6836Bmbie depression screening assessment Otoniel Adhikari MD Work Phone: Start: 47-33-2816Hg thorax w/contrast Newton Adhikari MD Work Phone: Start: 76-03-4275Uj thorax w/contrast Satnam Soniya Franco COHEN Work Phone: Start: 47-70-6948Tdagm depression screening assessment Raphael Franco COHEN Work Phone: Start: 56-81-6806KiiwxaigjqiyLNRDLQZD MCKENZIE ChemotherapyChemotherapy 1JENNIFER MCKENZIE Comment on above:Last 03/05/18Decompression of median nerveJELEE RINCON Endoscopy and biopsy of upper gastrointestinal tract JESSIKA RINCON Gallbladder structure (body structure)JESSIKA MCKENZIE Partial hysterectomyJENNIFER MCKENZIE Reconstruction of noseJENNIFER MCKENZIE Thoracoscopic wedge resection of lungMuhammad Janette Plan of Treatment DateCare ActivityDetailAuthorStart: 77-55-5175Yxuyodmx ScreeningDiabetes ScreeningSalem City Hospitaltart: 93-68-7020Tjykyfiy ScreeningDiabetes Screening [facility]tart: 86-33-0115Srrkppdq ScreeningDiabetes ScreeningSalem City Hospitaltart: 28-06-2351Xujsoomt ScreeningDiabetes ScreeningSub[facility] Start: 84-94-7689Qhxuzsff ScreeningDiabetes ScreeningHerculaneum ClinicStart: 84-91-7749Zyywaxot ScreeningDiabetes ScreeningSalem City Hospitaltart: 06-14-2027 Diabetes ScreeningDiabetes ScreeningSalem City Hospitaltart: 06-32-1362Jvniwmgp ScreeningDiabetes ScreeningSalem City Hospitaltart: 31-33-5744Qovxnjld Screening Diabetes ScreeningSalem City Hospitaltart: 53-24-6785Gihglhvy ScreeningDiabetes ScreeningSalem City Hospitaltart: 91-30-7894Ggpcavrh ScreeningDiabetes Screening [facility] ClinicStart: 30-69-2458Vkfwdywn ScreeningDiabetes ScreeningSalem City Hospitaltart: 00-78-3327Sqnuqhue ScreeningDiabetes ScreeningSuburban [facility] Start: 38-67-8823Fbdrtcif ScreeningDiabetes ScreeningSalem City Hospitaltart: 49-12-9152Rgukwref ScreeningDiabetes ScreeningSalem City Hospitaltart: 07-10-2026 Diabetes ScreeningDiabetes ScreeningSalem City Hospitaltart: 94-54-1892Zhwdiwbu ScreeningDiabetes ScreeningSalem City Hospitaltart: 67-69-5888Wamwzowf Screening Diabetes ScreeningSalem City Hospitaltart: 29-98-3306Gkajkjgy ScreeningDiabetes ScreeningSalem City Hospitaltart: 02-18-0046Hvgdwnrv ScreeningDiabetes Screening [facility]: 80-82-4352Iqsyyezl ScreeningDiabetes ScreeningSalem City Hospitaltart: 71-44-6656Vitnxmxb ScreeningDiabetes ScreeningSuburban [facility] Start: 48-46-3814Zfdcvnio ScreeningDiabetes ScreeningSalem City Hospitaltart: 21-96-1945jpsweqvlwcFubucgqiroAbspfcoo:EU BellevueStart: 97-68-3931Onhbypfh ScreeningDiabetes ScreeningSalem City Hospitaltart: 87-45-1331HLUKJEIY SCREEN DIABETES SCREENSalem City Hospitaltart: 81-68-0711BKYZQFZZ SCREENDIABETES SCREEN [facility] Hospitaltart: 33-47-2725JLNREEXO SCREENDIABETES SCREENSuburban Community Hospital & [facility] Start: 15-04-3315UOSEJHIR SCREENDIABETES SCREENSalem City Hospitaltart: 12-17-2024 End: 39-02-7071Kzhazm-up encounterHematology/OncologyComment on above:6 week follow up with lab chemotx Keytrudafollow up with lab chemotx KeytrudaStart: 12-17-2024 End: 17-22-1889Tiodisv encounter /07/2025 1:45 PM EDT Office Visit [facility] [address] [place] [id number] follow up with lab chemotx KeytrudaNortBronson Battle Creek Hospital LaboratoryComment on above:follow up with lab chemotx Keytruda Start: 12-13-2024 End: 84-87-4149Yxqcruv encounter mcwtnimhn66/03/2025 1:30 PM EDT Appointment Radiology Pet CT [address] [address] PET Radiology Pet CTComment on above:PETStart: 25-39-0373Smyluxfuv [facility] CenterStart: 11-07-2024 End: 36-08-3675Fwruzy-up encounterHematology/OncologyComment on above:follow up with lab chemotx KeytrudaStart: 11-07-2024 End: 98-54-1234Kipljfs encounter ztjodyrvj58/28/2025 1:45 PM EDT Office Visit [facility] [address] [place] [address] follow up with lab chemotx KeytrudaNortBronson Battle Creek Hospital LaboratoryComment on above:follow up with lab chemotx Keytruda Start: 10-31-2024 End: 13-96-9737Dzilquj encounter ukxnvteio62/21/2025 2:30 PM EDT Office Visit [facility] [address] [place] [phone] Cinthia Clayton, DO [address] [facility] [place] [address] [facility] OtolaryngologyComment on above:ArrivedStart: 10-31-2024 End: 21-67-3583ZDX W Auto Differential panel - BloodCOMPLETE BLOOD COUNT AND DIFFERENTIAL Lab Routine Malignant neoplasm of hilus of lung, unspecified l aterality (HCC) Anemia, unspecified type Expected: 10/31/2024, Expires: 01/30/2025leveland ClinicComment on above:Expected: 10/31/2024, Expires: 01/30/2025Start: 10-31-2024 End: 52-85-2089Apnheavxgbwxm metabolic 2000 panel - Serum or PlasmaCOMPREHENSIVE METABOLIC PANEL Lab Routine Malignant neoplasm of hilus of lung, unspecified laterality (HCC) Anemia, unspecified type Expected: 10/31/2024, Expires: 01/30/2025[facility] Work Phone: Comment on above:Expected: 10/31/2024, Expires: 01/30/2025Start: 10-31-2024 End: 54-50-7610Zhfqlzmyxko [Units/volume] in Serum or PlasmaTHYROID STIMULATING HORMONE Lab Routine Malignant neoplasm of hilus of lung, unspecified laterality (HCC) Anemia, unspecified type Expected: 10/31/2024, Expires: 01/30/2025 [facility] HospitalComment on above:Expected: 10/31/2024, Expires: 01/30/2025Start: 10-28-2024 End: 78-80-7263Kpmflwd encounter vpwmpneuw99/18/2025 2:20 PM EDT Office Visit KARLY PATEL [address] [place] [phone] Aneta Bennett NP [address] [place] [phone] KARLY BARRIOStart: 10-17-2024 End: 80-93-9492Svffqd-up encounterHematology/OncologyComment on above:6 week follow up with lab chemotx KeytrudaStart: 10-17-2024 End: 50-40-3577Ejdktzn encounter /07/2025 1:15 PM EDT Office Visit [facility] [address] [place], [place] [address], [place] [address] 6 week follow up with lab chemotx KeytrudaNortBronson Battle Creek Hospital LaboratoryComment on above:6 week follow up with lab chemotx KeytrudaStart: 37-13-8174EWJBVCAG SCREENDIABETES SCREENSuburban [facility] & [facility] Start: 09-05-2024 End: 88-65-5669Jyqwfu-up encounterHematology/OncologyComment on above:follow up after pet scan with lab and possible chemotx KeytrudaStart: 09-05-2024 End: 83-23-1754Tcnfvxn encounter vrvedzcoq16/26/2025 8:45 AM EDT Office Visit [facility] [address] [place] [address] follow up after pet scan with lab and possible chemotx KeytrudaNoRoane General Hospital LaboratoryComment on above:follow up after pet scan with lab and possible chemotx KeytrudaStart: 08-27-2024 End: 55-60-7090Gvazjbe encounter fuvoadriw28/17/2025 1:30 PM EDT Appointment Radiology Pet CT [address] [place] [address] Pet scan Radiology Pet CTComment on above:Pet scanStart: 08-23-2024 End: 88-83-2004SYO W Auto Differential panel - BloodCOMPLETE BLOOD COUNT AND DIFFERENTIAL Lab Routine Malignant neoplasm of unspecified part of unspecified bronchus or lung (HCC) Diarrhea, unspecified type Hypothyroidism due to medication Expected: 08/23/2024, Expires: 11/22/2024[facility] ClinicComment on above:Expected: 08/23/2024, Expires: 11/22/2024Start: 08-23-2024 End: 18-89-5263Fgpzxixzgbjzl metabolic 2000 panel - Serum or PlasmaCOMPREHENSIVE METABOLIC PANEL Lab Routine Malignant neoplasm of unspecified part of unspecified bronchus or lung (HCC) Diarrhea, unspecified type Hypothyroidism due to medication Expected: 08/23/2024, Expires: 11/22/2024[facility] ClinicComment on above:Expected: 08/23/2024, Expires: 11/22/2024Start: 08-23-2024 End: 04-70-0930Rhxmhknmsth [Units/volume] in Serum or PlasmaTHYROID STIMULATING HORMONE Lab Routine Malignant neoplasm of unspecified part of unspecified bronch us or lung (HCC) Diarrhea, unspecified type Hypothyroidism due to medication Expected: 08/23/2024, Expires: 11/22/2024[facility] ClinicComment on above: Expected: 08/23/2024, Expires: 11/22/2024Start: 08-09-2024 End: 15-38-8357Xwoipe-up encounterHematology/OncologyComment on above:1 week follow up with lab chemotx KeytrudaStart: 08-09-2024 End: 19-52-8847Vzhjcgo encounter pflriophx61/30/2025 2:15 PM EDT Office Visit [facility] [address] [place] [address] 1 week labNortBr[facility] Laboratory Comment on above:1 week labStart: 08-09-2024 End: 64-56-9924HVY W Auto Differential panel - BloodCOMPLETE BLOOD COUNT AND DIFFERENTIAL Lab Routine Malignant neoplasm of hilus of lung, unspecified l aterality (HCC) Colitis, acute 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) Diarrhea, unspecified type Expected: 08/09/2024, Expires: 11/08/2024[facility] Comment on above:Expected: 08/09/2024, Expires: 11/08/2024Start: 08-09-2024 End: 92-63-9505Knxhrjbxgpiqc metabolic 2000 panel - Serum or PlasmaCOMPREHENSIVE METABOLIC PANEL Lab Routine Malignant neoplasm of hilus of lung, unspecified laterality (HCC) Colitis, acute 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) Diarrhea, unspecified type Expected: 08/09/2024, Expires: 11/08/2024[facility] Comment on above:Expected: 08/09/2024, Expires: 11/08/2024Start: 07-25-2024 End: 40-64-5358Uvsqox-up encounterHematology/OncologyComment on above:2 week follow up with lab chemotx KeytrudaStart: 07-25-2024 End: 96-99-9672Dmgzvqz encounter /15/2025 12:45 PM EDT Office Visit [facility] [address] [place] [address] 2 week follow up with lab chemotx KeytrudaNoRoane General Hospital LaboratoryComment on above:2 week follow up with lab chemotx KeytrudaStart: 07-08-2024 End: 19-27-5904Nzltgsu encounter ozogbnxmc14/28/2025 2:30 PM EDT Office Visit KARLY KIRA [address] [place] [phone] Merry Mejias DO [address] [place] [address] KARLY BELLEVUEStart: 07-04-2024 End: 30-17-9499EKF W Auto Differential panel - BloodCOMPLETE BLOOD COUNT AND DIFFERENTIAL Lab Routine Hypothyroidism due to medication 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) Elevated liver enzymes Malaise and fatigue Abnormal blood chemistry Expected: 07/04/2024 (Approximate), Expires: 10/03/2024[facility] ClinicComment on above:Expected: 07/04/2024 (Approximate), Expires: 10/03/2024 Start: 07-04-2024 End: 07-14-5432Iijyhlrwuoiwz metabolic 2000 panel - Serum or PlasmaCOMPREHENSIVE METABOLIC PANEL Lab Routine Hypothyroidism due to medication 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) Elevated liver enzymes Malaise and fatigue Abnormal blood chemistry Expected: 07/04/2024 (Approximate), Expires: 10/03/2024[facility] Work Phone: Comment on above:Expected: 07/04/2024 (Approximate), Expires: 10/03/2024Start: 07-04-2024 End: 56-76-6174Nvmlorfb [Mass/volume] in Serum or PlasmaCORTISOL, SERUM Lab Routine Hypothyroidism due to medication 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) El evated liver enzymes Malaise and fatigue Abnormal blood chemistry Expected: 07/04/2024 (Approximate), Expires: 10/03/2024[facility] ClinicComment on above: Expected: 07/04/2024 (Approximate), Expires: 10/03/2024Start: 07-04-2024 End: 44-92-0210Scpqjxpdwyq [Units/volume] in Serum or PlasmaTHYROID STIMULATING HORMONE Lab Routine Hypothyroidism due to medication Lung cancer metastatic to b one (HCC) Elevated liver enzymes Malaise and fatigue Abnormal blood chemistry Expected: 07/04/2024 (Approximate), Expires: 10/03/2024[facility] ClinicComment on above:Expected: 07/04/2024 (Approximate), Expires: 10/03/2024Start: 07-04-2024 End: 37-44-2448Efmhyz-up encounterHematology/OncologyComment on above:2 week follow up with lab chemotx KeytrudaStart: 07-04-2024 End: 58-33-8751Gflgukb encounter pmwbqcegx83/24/2025 1:15 PM EDT Office Visit [facility] [address] [place] [address] 2 week follow up with lab chemotx KeytrudaNortBronson [facility] Hospital LaboratoryComment on above:2 week follow up with lab chemotx KeytrudaStart: 06-20-2024 End: 89-65-7109Hmtqqm-up encounterHematology/OncologyComment on above:1 week follow up with lab chemotx KeytrudaStart: 06-20-2024 End: 49-47-4132Wkcpsnh encounter lvgglcfzo13/10/2025 2:15 PM EDT Office Visit [facility] [place] [address] 1 week [facility] centerN[facility] Comment on above:1 week labStart: 06-20-2024 End: 55-70-7014UEZ W Auto Differential panel - BloodCOMPLETE BLOOD COUNT AND DIFFERENTIAL Lab Routine 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) Expected: 12/2024, Expires: 06/14/2025[facility] Work Phone: Comment on above:Expected: 06/20/2024, Expires: 06/14/2025Start: 06-20-2024 End: 82-81-6182Twgsasomlidzf metabolic 2000 panel - Serum or PlasmaCOMPREHENSIVE METABOLIC PANEL Lab Routine 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) Expected: 06/20/2024, Expires: 06/14/2025[facility] ClinicComment on above:Expected: 06/20/2024, Expires: 06/14/2025Start: 06-13-2024 End: 62-84-8236Phrgaf-up encounterHematology/OncologyComment on above:6 week follow up with lab chemotx KeytrudaStart: 06-13-2024 End: 88-74-9404Dekaslp encounter qkoqcqdxn57/03/2025 12:45 PM EDT Office Visit [facility] [address] [place] [address] 6 week follow up with lab chemotx KeytrudaNortBronson [facility] Hospital LaboratoryComment on above:6 week follow up with lab chemotx KeytrudaStart: 05-14-2024 End: 71-61-5427Rdwjoio encounter /04/2025 2:40 PM EST Office Visit [facility] [address] [place] [phone] Krystina Garcia, TIRE DUSTER [address] [place] [address] [facility] ROUTEStart: 05-02-2024 End: 94-81-1904Eeitsm-up encounterHematology/OncologyComment on above:6 week follow up with lab chemotx KeytrudaStart: 05-02-2024 End: 47-14-4163Cltnvfq encounter oaivgswkt70/20/2025 12:45 PM EST Office Visit [facility] [address] [place] [address] [place] [address] 6 week follow up with lab chemotx KeytrudaNortBronson [facility] Hospital LaboratoryComment on above:6 week follow up with lab chemotx KeytrudaStart: 04-30-2024 End: 31-73-4411Dhbylfb encounter oskiyqebt26/18/2025 11:15 AM EST Appointment Radiology Pet CT [address] [place] [address] [place] [address] PET Radiology Pet CTComment on above:PETStart: 04-25-2024 End: 68-83-4543ZNR+CT Guidance for localization of tumor of Skull base to mid-thigh-- W 18F-FDG IVNM PET/CT SKULL-THIGH SUBSEQUENT Radiology Routine 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) Malignant neoplasm of right lung, unspecified part of lung (HCC) 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, unspecified laterality (HCC) Expected: 04/25/2024 (Approximate), Expires: 04/20/2025[facility] Work Phone: Comment on above:Expected: 04/25/2024 (Approximate), Expires: 04/20/2025Start: 04-25-2024 End: 76-36-3903Prfxgnw encounter qjjwephno05/13/2025 12:45 PM EST Appointment Radiology Pet CT [address] [place] [address] PET Radiology Pet CTComment on above:PETStart: 04-01-2024 End: 46-09-4182Kioycec encounter fjglzufvx52/20/2025 2:30 PM EST Office Visit [facility] [address] [place] [address] Hilaria Webber, KYLEIGH.MULTIGRAPH OPERATOR [address] [facility] [address] [place] [address] 6-8 week follow up scan for brain metastasis , s/p gamma knife on February 18[facility] CenterComment on above: 6-8 week follow up scan for brain metastasis , s/p gamma knife on Februarytart: 04-01-2024 End: 59-64-7879Yxzeelq encounter vxzamyfpn84/20/2025 12:20 PM EST Appointment MRI Q [address] [address] With PerfusionMRI Q Comment on above:With PerfusionStart: 27-52-1447Pwvqslqyre hospital visit by nzpcylceg53/20/2025 12:20 PM EST Hospital Encounter MRI Q [address] [address] Ilqvevppi malignant neoplasm of brain (HCC) [C79.31]MRI QComment on above: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 [address] [place] [address] 3 week follow up with lab chemotx KeytrudaNortBronson [facility] Hospital LaboratoryComment on above:3 week follow up with lab chemotx KeytrudaStart: 03-14-2024 End: 02-92-0172Hsojrlw encounter lvfbeyfiy48/02/2025 1:00 PM EST Office Visit [facility] [address] [place] [phone] Krystina Garcia NP [address] [place] [address] ArrivedNOMS [facility] ROUTEComment on above:ArrivedStart: 02-28-2024 End: 81-25-0771QQZ W Auto Differential panel - BloodCOMPLETE BLOOD COUNT AND DIFFERENTIAL Lab Routine 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) Malaise and fatigue Expected: 02/28/2024, Expires: 05/29/2024[facility] Comment on above:Expected: 02/28/2024, Expires: 05/29/2024Start: 02-28-2024 End: 05-03-6218Qlpnlgapkompz metabolic 2000 panel - Serum or PlasmaCOMPREHENSIVE METABOLIC PANEL Lab Routine 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) Malaiseand fatigue Expected: 02/28/2024, Expires: 05/29/2024[facility] Work Phone: Comment on above:Expected: 02/28/2024, Expires: 05/29/2024Start: 02-28-2024 End: 77-07-3811Qcsbgd-up bupumlbdm08/18/2024 2:00 PM EST Visit (SP) Office Hematology/Oncology [address] [place] [phone] Raphael Jolley, PA-C [address] [place] [address] 3 week follow up with MARY or Dr Jamesematology/OncologyComment on above:3 week follow up with MARY or Dr Griffithsrt: 02-28-2024 End: 39-72-2289Kgyjkfidnwi [Units/volume] in Serum or PlasmaTHYROID STIMULATING HORMONE Lab Routine 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) Malaise an d fatigue Expected: 02/28/2024, Expires: 05/29/2024[facility] ClinicComment on above:Expected: 02/28/2024, Expires: 05/29/2024Start: 02-28-2024 End: 41-21-5829Qupctnb encounter xvhdqygog60/18/2024 1:45 PM EST Office Visit [facility] [address] [place] [address] 3 week follow up with MARY or Dr MarieeMary Babb [facility] LaboratoryComment on above:3 week follow up with MARY or Dr George Start: 02-20-2024 End: 89-92-0264Tozdzwe encounter bpvpokzmd63/10/2024 3:40 PM EST [facility] [address] [place] [phone] Krystina Garcia NP [address] [place] [address] [facility] ROUTEStart: 02-19-2024 End: 88-75-6669Cnstolloz to same day surgery vknwnw6402/19/2024 8:10 PM EST - 02/19/2024 8:55 PM EST Surgery Anesthesia [address] [address] Alfredo More MD [address] [place] [address] STEREOTACTIC RADIOSURGERY 1 COMPLEX CRANIAL LESION AnesthesiaComment on above:STEREOTACTIC RADIOSURGERY 1 COMPLEX CRANIAL LESION Start: 02-19-2024 End: 11-71-7848Xrbxrlmmpmcc radiosurgery 1 complex cranial lesSTEREOTACTIC RADIOSURGERY 1 COMPLEX CRANIAL LESION Secondary malignant neoplasm of brain (HCC) 02/19/2024 8:10 PM ESTMC ANESTHESIA ONLYStart: 02-76-4845Blibumhekd hospital visit by gqzgvfzag64/09/2024 8:10 PM EST Hospital Encounter Anesthesia [address] [address] Alfredo More MD [address] [place], [place] [id number] 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]AnesthesiaComment on above: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]Start: 02-19-2024 End: 61-02-9766Jnonhpd encounter procedureRadiation OncologyComment on above: AMM/JY (need cvg)AMM/JY (pp cvg per email)Start: 02-19-2024 End: 67-64-5978Eqmmoyk encounter procedureRadiologyComment on above:CPT 48448 FrameCpt 41935Ashxinrn sentCCN AcceptedStart: 02-15-2024 End: 43-51-8738Vtgdvtz encounter procedureRadiation OncologyComment on above:Dx: Brain MetsTime Frame: EXPEDITEStart: 58-32-6142FLHHERIN SCREENDIABETES SCREEN [facility] Hospitaltart: 02-07-2024 End: 35-00-8329AEM W Auto Differential panel - BloodCOMPLETE BLOOD COUNT AND DIFFERENTIAL Lab Routine 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) Malignant neoplasm of hilus of lung, unspecified laterality (HCC) Malaise and fatigue Expected: 02/07/2024, Expires: 05/08/2024[facility] ClinicComment on above:Expected: 02/07/2024, Expires: 05/08/2024Start: 02-07-2024 End: 20-90-2125Xkrhlhfcwktse metabolic 2000 panel - Serum or PlasmaCOMPREHENSIVE METABOLIC PANEL Lab Routine 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) Malignant neoplasm of hilus of lung, unspecified laterality (HCC) Malaise and fatigue Expected: 02/07/2024,Expires: 05/08/2024[facility] Work Phone: Comment on above:Expected: 02/07/2024, Expires: 05/08/2024Start: 02-07-2024 End: 55-49-8922Hlaldqodxbw [Units/volume] in Serum or PlasmaTHYROID STIMULATING HORMONE Lab Routine 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) Malignant neoplasm of hilus of lung, unspecified laterality (HCC) Malaise and fatigue Expected: 02/07/2024, Expires: 05/08/2024[facility] ClinicComment on above: Expected: 02/07/2024, Expires: 05/08/2024Start: 02-07-2024 End: 04-48-7878Rrqdtg-up encounterHematology/OncologyComment on above:4 week follow up with lab chemotx KeytrudaStart: 02-07-2024 End: 89-84-8759Vcvinmt encounter xnaeerdjn88/27/2024 12:45 PM EST Office Visit [facility] [address] [place] [address] 4 week follow up with lab chemotx KeytrudaNortBronson [facility] LaboratoryComment on above:4 week follow up with lab chemotx KeytrudaStart: 01-12-2024 End: 06-87-6226Kjilje-up vvyhcybin91/01/2024 2:40 PM EDT Visit (SP) Office Hematology/Oncology [address] [place], [place] [phone] Michael Britton MD [address] [place] [address] follow up after PET scan same dayHematology/OncologyComment on above:follow up after PET scan same dayStart: 01-12-2024 End: 41-09-6229Ljhulfi encounter rqbsafbul20/01/2024 12:45 PM EDT Appointment Radiology Pet CT [address] [place] [address] PET Radiology Pet CTComment on above:PETStart: 01-10-2024 End: 12-73-1686SRQ+CT Guidance for localization of tumor of Skull base to mid-thigh-- W 18F-FDG IVNM PET/CT SKULL-THIGH SUBSEQUENT Radiology Routine Malignant neoplasm of unspecified part of unspecified bronchus or lung (HCC) Malignant neoplasm of hilus of lung, unspecified laterality (HCC) Malignant neoplasm of right lung, unspecified part of lung (HCC) 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) Expected: 01/10/2024 (Approximate), Expires: 01/25/2025[facility] Work Phone: Comment on above:Expected: 01/10/2024 (Approximate), Expires: 01/25/2025Start: 12-28-2023 End: 24-82-5406MS Brain WO and W contrast IVMRI BRAIN WO/W IVCON Radiology STAT Malignant neoplasm of unspecified part of unspecified bronchus or lung (HCC) Syncope and collapse Expected: 12/28/2023 (Approximate), Expires: 01/25/2025 [facility] HospitalComment [facility]:Expected: 12/28/2023 (Approximate), Expires: 01/25/2025Start: 12-27-2023 End: 76-05-0331Gomgjl-up encounterHematology/OncologyComment on above:6 WEEK FOLLOW UP KEYTRUDAStart: 12-27-2023 End: 19-53-5700Bltwxid encounter olcyykpjk80/16/2024 1:00 PM EDT Office Visit [facility] [address] [place] [address] 6 W[facility] UP [facility] LaboratoryComment on above:6 WEEK FOLLOW UP KEYTRUDAStart: 12-06-2023 End: 42-05-8081Tqsgmttuyrz [Units/volume] in Serum or PlasmaTHYROID STIMULATING HORMONE Lab Routine Malignant neoplasm of hilus of lung, unspecified laterality (HCC) Malaise and fatigue Expected: 12/06/2023, Expires: 03/06/2024[facility] Work Phone: Comment on above:Expected: 12/06/2023, Expires: 03/06/2024Start: 12-06-2023 End: 85-83-7447Fwswjrzuj (T4) free [Mass/volume] in Serum or PlasmaT4 FREE/FREE THYROXINE Lab Routine Malignant neoplasm of hilus of lung, unspecified laterality (HCC) Malaise and fatigue Expected: 12/06/2023, Expires: 03/06/2024 [facility] HospitalComment on above:Expected: 12/06/2023, Expires: 03/06/2024Start: 12-06-2023 End: 26-68-8070Hdzuejy encounter anbuvqzvr94/25/2024 1:30 PM EDT Office Visit [facility] [address] [place] [address] 3 week labNortBronson [facility] Comment on above:3 week labStart: 11-15-2023 End: 19-08-5126CVF W Auto Differential panel - BloodCOMPLETE BLOOD COUNT AND DIFFERENTIAL Lab Routine Malignant neoplasm of hilus of lung, unspecified l aterality (HCC) Thyroid dysfunction Abnormal blood chemistry Expected: 11/15/2023 (Approximate), Expires: 02/14/2024[facility] ClinicComment on above: Expected: 11/15/2023 (Approximate), Expires: 02/14/2024Start: 11-15-2023 End: 38-66-4287Liwpsiyhtwuqp metabolic 2000 panel - Serum or PlasmaCOMPREHENSIVE METABOLIC PANEL Lab Routine Malignant neoplasm of hilus of lung, unspecified laterality (HCC) Thyroid dysfunction Abnormal blood chemistry Expected: 11/15/2023 (Approximate), Expires: 02/14/2024[facility] Work Phone: Comment on above:Expected: 11/15/2023 (Approximate), Expires: 02/14/2024Start: 11-15-2023 End: 93-54-8332Fnqwbogt [Mass/volume] in Serum or PlasmaCORTISOL, SERUM Lab Routine Malignant neoplasm of hilus of lung, unspecified laterality (HCC) Thyroi d dysfunction Abnormal blood chemistry Expected: 11/15/2023 (Approximate), Expires: 02/14/2024[facility] ClinicComment on above:Expected: 11/15/2023 (Approximate), Expires: 02/14/2024Start: 11-15-2023 End: 63-85-3173Fnlznl-up encounterHematology/OncologyComment on above:6 WEEK FOLLOW UP KEYTRUDAStart: 11-15-2023 End: 18-46-2250Zfbnrtlczi A1c in BloodHEMOGLOBIN A1C Lab Routine Malignant neoplasm of hilus of lung, unspecified laterality (HCC) Thyroid dysfunction Abnormal blood chemistry Expected: 11/15/2023 (Approximate), Expires: 02/14/2024 [facility] ClinicComment on above:Expected: 11/15/2023 (Approximate), Expires: 02/14/2024Start: 11-15-2023 End: 58-88-9106Jozgtsulxvj [Units/volume] in Serum or PlasmaTHYROID STIMULATING HORMONE Lab Routine Malignant neoplasm of hilus of lung, unspecified laterality (HCC) Thyroid dysfunction Abnormal blood chemistry Expected: 11/15/2023 (Approximate), Expires: 02/14/2024[facility] ClinicComment on above:Expected: 11/15/2023 (Approximate), Expires: 02/14/2024Start: 11-15-2023 End: 17-12-8411Zezybqj encounter vihymwxfc63/04/2024 1:45 PM EDT Office Visit [facility] [address] [place] [phone] 6 WEEK FOLLOW UP [facility]ITALUDANortBr[facility] LaboratoryComment on above:6 WEEK FOLLOW UP [facility]ITALStart: 63-64-7755Irtnh-19 Vaccine ( season)Covid-19 Vaccine ()[facility]: 65-21-2298Lqtnu-19 Vaccine ( season)Covid-19 Vaccine ( season)[facility] Hospitaltart: 42-11-0007Vpujmshtc vaccinationSalem City Hospitaltart: 10-03-2023 End: 57-38-6720AQS W Auto Differential panel - BloodCOMPLETE BLOOD COUNT AND DIFFERENTIAL Lab Routine Malignant neoplasm of hilus of lung, unspecified l aterality (HCC) Expected: 10/03/2023 (Approximate), Expires: 01/02/2024[facility] ClinicComment on above:Expected: 10/03/2023 (Approximate), Expires: 01/02/2024 Start: 10-03-2023 End: 97-30-3177Upysywxcubwlm metabolic 2000 panel - Serum or PlasmaCOMPREHENSIVE METABOLIC PANEL Lab Routine Malignant neoplasm of hilus of lung, unspecified laterality (HCC) Expected: 10/03/2023 (Approximate), Expires: 01/02/2024 [facility] HospitalComment on above:Expected: 10/03/2023 (Approximate), Expires: 01/02/2024Start: 10-03-2023 End: 29-04-7450VF Abdomen and Pelvis W contrast IVCT ABD/PEL W IVCON Radiology Routine Malignant neoplasm of hilus of lung, unspecified laterality (HCC) Malignant neoplasm of right lung, unspecified part of lung (HCC) Expected: 10/03/2023 (Approximate), Expires: 09/20/2024[facility] ClinicComment on above: Expected: 10/03/2023 (Approximate), Expires: 09/20/2024Start: 10-03-2023 End: 21-26-2837KG Chest W contrast IVCT CHEST W IVCON Radiology Routine Malignant neoplasm of hilus of lung, unspecified laterality (HCC) Expected: 10/03/2023 (Approximate), Expires: 09/20/2024[facility] Work Phone: Comment on above:Expected: 10/03/2023 (Approximate), Expires: 09/20/2024Start: 10-03-2023 End: 55-29-5885Qmrfklwitfq [Units/volume] in Serum or PlasmaTHYROID STIMULATING HORMONE Lab Routine Malignant neoplasm of hilus of lung, unspecified laterality (HCC) Expected: 10/03/2023 (Approximate), Expires: 01/02/2024[facility] Comment on above:Expected: 10/03/2023 (Approximate), Expires: 01/02/2024Start: 10-03-2023 End: 87-62-8252Ovgtck-up encounterHematology/OncologyComment on above:6 WEEK FOLLOW UP KEYTRUDAStart: 10-03-2023 End: 68-08-6831Kdzggsm encounter xusvzkhav77/23/2024 1:30 PM EDT Office Visit [facility] [address] [place] [phone] 6 WEEK FOLLOW UP KEYTRUDANortBronson [facility] LaboratoryComment on above:6 WEEK FOLLOW UP KEYTRUDAStart: 09-28-2023 End: 18-63-1357Eonlgzb encounter /18/2024 7:45 AM EDT Appointment Radiology Pet CT [address] [place] [address] CT CAP W IV Radiology Pet CTComment on above:CT CAP W IVStart: 08-22-2023 End: 31-97-3096OEF W Auto Differential panel - BloodCOMPLETE BLOOD COUNT AND DIFFERENTIAL Lab Routine Malignant neoplasm of hilus of lung, unspecified l aterality (HCC) Anemia, unspecified type Malaise and fatigue Expected: 08/22/2023 (Approximate), Expires: 11/21/2023[facility] ClinicComment on above: Expected: 08/22/2023 (Approximate), Expires: 11/21/2023Start: 08-22-2023 End: 00-84-1235Opbkmicazpmkm metabolic 2000 panel - Serum or PlasmaCOMPREHENSIVE METABOLIC PANEL Lab Routine Malignant neoplasm of hilus of lung, unspecified laterality (HCC) Anemia, unspecified type Malaise and fatigue Expected: 08/22/2023 (Approximate), Expires: 11/21/2023[facility] Work Phone: Comment on above:Expected: 08/22/2023 (Approximate), Expires: 11/21/2023Start: 08-22-2023 End: 30-06-6503Pdsstipsmxe [Units/volume] in Serum or PlasmaTHYROID STIMULATING HORMONE Lab Routine Malignant neoplasm of hilus of lung, unspecified laterality (HCC) Anemia, unspecified type Malaise and fatigue Expected: 08/22/2023 (Approximate), Expires: 11/21/2023[facility] ClinicComment on above:Expected: 08/22/2023 (Approximate), Expires: 11/21/2023Start: 08-22-2023 End: 30-40-1038Ulacwt-up encounterHematology/OncologyComment on above:6 WEEK FOLLOW UP KEYTRUDAStart: 08-22-2023 End: 17-69-3420Pphfihn encounter /11/2024 1:30 PM EDT Office Visit [facility] [address] [place] [id number] [phone] WEEK FOLLOW UP [facility] LaboratoryComment on above:6 WEEK [facility] UP [facility]Start: 07-11-2023 End: 52-07-8573KJV W Auto Differential panel - BloodCBC + DIFF Lab Routine Malignant neoplasm of hilus of lung, unspecified laterality (HCC) Expected: 0 07/11/2023 (Approximate), Expires: 10/10/2023[facility] Work Phone: Comment on above:Expected: 07/11/2023 (Approximate), Expires: 10/10/2023Start: 07-11-2023 End: 21-81-3893Cjfeyswixpjmo metabolic 2000 panel - Serum or PlasmaCOMP METABOLIC PANEL Lab Routine Malignant neoplasm of hilus of lung, unspecified laterality (HCC) Expected: 07/11/2023 (Approximate), Expires: 10/10/2023 [facility] Work Phone: Comment on above:Expected: 07/11/2023 (Approximate), Expires: 10/10/2023Start: 07-11-2023 End: 03-36-9868Zhvxmklzjoj [Units/volume] in Serum or PlasmaTSH BLD Lab Routine Malignant neoplasm of hilus of lung, unspecified laterality (HCC) Expected: 06/13 (Approximate), Expires: 10/10/2023[facility] Work Phone: Comment on above:Expected: 07/11/2023 (Approximate), Expires: 10/10/2023Start: 36-87-3958OGE Vaccine (1 - 1-dose 60+ series)RSV Vaccine (1 - 1-dose 60+ series)[facility]: 77-39-5117DFZ Vaccine (1 - Risk 60-74 years 1-dose series)RSV Vaccine (1 - Risk 60-74 years 1-dose series) [facility]: 06-20-2023 End: 13-63-0642FAV W Auto Differential panel - BloodCBC + DIFF Lab Routine Malignant neoplasm of hilus of lung, unspecified laterality (HCC) Malaise and fatigue Expected: 06/20/2023 (Approximate), Expires: 09/19/2023[facility] Work Phone: Comment on above:Expected: 06/20/2023 (Approximate), Expires: 09/19/2023Start: 06-20-2023 End: 68-51-5979Csqtzqgexcjeg metabolic 2000 panel - Serum or PlasmaCOMP METABOLIC PANEL Lab Routine Malignant neoplasm of hilus of lung, unspecified laterality (HCC) Malaise and fatigue Expected: 06/20/2023 (Approximate), Expires: 09/19/2023[facility] Work Phone: Comment on above:Expected: 06/20/2023 (Approximate), Expires: 09/19/2023Start: 06-20-2023 End: 80-52-7318Oweffxnwmcv [Units/volume] in Serum or PlasmaTSH BLD Lab Routine Malignant neoplasm of hilus of lung, unspecified laterality (HCC) Malaise and fa tigue Expected: 06/20/2023 (Approximate), Expires: 09/19/2023[facility] Work Phone: Comment on above:Expected: 06/20/2023 (Approximate), Expires: 09/19/2023Start: 05-30-2023 End: 73-51-2531CRQ W Auto Differential panel - BloodCBC + DIFF Lab Routine Malignant neoplasm of hilus of lung, unspecified laterality (HCC) Malaise and fatigue Expected: 05/30/2023 (Approximate), Expires: 08/29/2023[facility] Work Phone: Comment on above:Expected: 05/30/2023 (Approximate), Expires: 08/29/2023Start: 05-30-2023 End: 10-90-5315Djemxsylwqrts metabolic 2000 panel - Serum or PlasmaCOMP METABOLIC PANEL Lab Routine Malignant neoplasm of hilus of lung, unspecified laterality (HCC) Malaise and fatigue Expected: 05/30/2023 (Approximate), Expires: 08/29/2023[facility] Work Phone: Comment on above:Expected: 05/30/2023 (Approximate), Expires: 08/29/2023Start: 05-30-2023 End: 44-01-1250Yftrvixbedg [Units/volume] in Serum or PlasmaTSH BLD Lab Routine Malignant neoplasm of hilus of lung, unspecified laterality (HCC) Malaise and fa tigue Expected: 05/30/2023 (Approximate), Expires: 08/29/2023[facility] Work Phone: Comment on above:Expected: 05/30/2023 (Approximate), Expires: 08/29/2023Start: 77-71-5647Bguerwafwu Health ScreeningBehavioral Health ScreeningSalem City Hospitaltart: 18-60-7176Qgdieilokl AssessmentDepression AssessmentSalem City Hospitaltart: 65-99-2101viPznfbjrgcm Health Screening zzBehavioral Health ScreeningSalem City Hospitaltart: 03-08-2023 End: 36-88-9589VWO W Auto Differential panel - BloodCBC + DIFF Lab Routine Malignant neoplasm of upper lobe of left lung (HCC) Expected: 03/08/2023 (Mary roximate), Expires: 06/07/2023[facility] Work Phone: Comment on above:Expected: 03/08/2023 (Approximate), Expires: 06/07/2023Start: 03-08-2023 End: 92-99-7310Pqxdrseiynwig metabolic 2000 panel - Serum or PlasmaCOMP METABOLIC PANEL Lab Routine Malignant neoplasm of upper lobe of left lung (HCC) Expected: 03/08/2023 (Approximate), Expires: 06/07/2023[facility] Work Phone: Comment on above:Expected: 03/08/2023 (Approximate), Expires: 06/07/2023Start: 03-08-2023 End: 89-63-5930YZ PET/CT SKULL-THIGH SUBSEQUENTNM PET/CT SKULL-THIGH SUBSEQUENT Radiology Routine Malignant neoplasm of upper lobe of left lung (HCC) Expected: 03/08/2023 (Approximate), Expires: 03/16/2024[facility] Work Phone: Comment on above:Expected: 03/08/2023 (Approximate), Expires: 03/16/2024Start: 03-08-2023 End: 08-09-5526Wkxgwfvszze [Units/volume] in Serum or PlasmaTSH BLD Lab Routine Malignant neoplasm of upper lobe of left lung (HCC) Expected: 03/08/2023 (Approx imate), Expires: 06/07/2023[facility] Work Phone: Comment on above:Expected: 03/08/2023 (Approximate), Expires: 06/07/2023Start: 02-15-2023 End: 49-55-0773NNK W Auto Differential panel - BloodCBC + DIFF Lab Routine Anemia, unspecified type Malignant neoplasm of upper lobe of left lung (HCC) Malaise and fatigue Expected: 02/15/2023 (Approximate), Expires: 05/17/2023 [facility] Work Phone: Comment on above:Expected: 02/15/2023 (Approximate), Expires: 05/17/2023Start: 02-15-2023 End: 30-88-5013Ilfwfyyotcnyc metabolic 2000 panel - Serum or PlasmaCOMP METABOLIC PANEL Lab Routine Anemia, unspecified type Malignant neoplasm of upper lobe of left lung (HCC) Malaise and fatigue Expected: 02/15/2023 (Approximate), Expires: 05/17/2023[facility] Work Phone: Comment on above:Expected: 02/15/2023 (Approximate), Expires: 05/17/2023Start: 02-15-2023 End: 10-60-5633Cisturhcmws [Units/volume] in Serum or PlasmaTSH BLD Lab Routine Anemia, unspecified type Malignant neoplasm of upper lobe of left lung (HCC) Mal aise and fatigue Expected: 02/15/2023 (Approximate), Expires: 05/17/2023 [facility] Work Phone: Comment on above:Expected: 02/15/2023 (Approximate), Expires: 05/17/2023Start: 01-25-2023 End: 87-83-0446NPA W Auto Differential panel - BloodCBC + DIFF Lab Routine Malignant neoplasm of upper lobe of left lung (HCC) Malaise and fatigue Expec edu: 01/25/2023 (Approximate), Expires: 04/26/2023[facility] Work Phone: Comment on above:Expected: 01/25/2023 (Approximate), Expires: 04/26/2023Start: 01-25-2023 End: 92-11-8088Basnparsl (Vitamin B12) [Mass/volume] in Serum or PlasmaBlanchard Valley Health System [facility] Work Phone: Comment on above:Expected: 01/25/2023, Expires: 04/26/2023Start: 01-25-2023 End: 16-46-7799Jruntixmvmyem metabolic 2000 panel - Serum or PlasmaCOMP METABOLIC PANEL Lab Routine Malignant neoplasm of upper lobe of left lung (HCC) Malaise and fatigue Expected: 01/25/2023 (Approximate), Expires: 04/26/2023 [facility] Work Phone: Comment on above:Expected: 01/25/2023 (Approximate), Expires: 04/26/2023Start: 01-25-2023 End: 78-50-0943Ucdpvitf [Mass/volume] in Serum or [facility] Work Phone: Comment on above:Expected: 01/25/2023, Expires: 04/26/2023Start: 01-25-2023 End: 15-87-4759Uobjpa [Mass/volume] in Serum or [facility] Work Phone: Comment on above:Expected: 01/25/2023, Expires: 04/26/2023Start: 01-25-2023 End: 67-60-3702Fbtk and Iron binding capacity panel - Serum or PlasmaBlanchard Valley Health System [facility] Work Phone: Comment on above:Expected: 01/25/2023, Expires: 04/26/2023Start: 01-25-2023 End: 04-09-5232Snipdwdxhfu [Units/volume] in Serum or PlasmaTSH BLD Lab Routine Malignant neoplasm of upper lobe of left lung (HCC) Malaise and fatigue Expected : 01/25/2023 (Approximate), Expires: 04/26/2023[facility] Work Phone: Comment on above:Expected: 01/25/2023 (Approximate), Expires: 04/26/2023Start: 01-25-2023 End: 28-08-5823Fgjtdvcsaa complete panel - UrineBlanchard Valley Health System [facility] Work Phone: Comment on above:Expected: 01/25/2023, Expires: 04/26/2023Start: 01-03-2023 End: 08-84-0016Kqrftticerj [Units/volume] in Serum or PlasmaTSH BLD Lab Routine Malaise and fatigue Expected: 01/03/2023, Expires: 04/04/2023[facility] Work Phone: Comment on above:Expected: 01/03/2023, Expires: 04/04/2023Start: 92-63-3792Ssdco-19 Vaccine ()Covid-19 Vaccine ()[facility]: 17-13-4541Wsjhznkmq vaccination [facility]: 89-38-7825Zztuj depression screening assessmentDEPRESSION SCREENINGSalem City Hospitaltart: 08-17-2022 End: 77-29-0796BGNK SEND OUT TST 1MISC SEND OUT TST 1 Lab Routine Malignant neoplasm of hilus of lung, unspecified laterality (HCC) Expected: 08/17/2022, Expires: 10/17/2022[facility] Work Phone: Comment on above:Expected: 08/17/2022, Expires: 10/17/2022Start: 07-06-2022 End: 69-55-0626MOL W Auto Differential panel - BloodCBC + DIFF Lab Routine Malignant neoplasm of unspecified part of unspecified bronchus or lung (HCC) Expected: 07/06/2022 (Approximate), Expires: 09/05/2022[facility] Work Phone: Comment on above:Expected: 07/06/2022 (Approximate), Expires: 09/05/2022Start: 07-06-2022 End: 19-59-9290Womzuzpkjbxnc metabolic 2000 panel - Serum or PlasmaCOMP METABOLIC PANEL Lab Routine Malignant neoplasm of unspecified part of unspecified bronchus or lung (HCC) Expected: 07/06/2022 (Approximate), Expires: 09/05/2022[facility] Work Phone: Comment on above:Expected: 07/06/2022 (Approximate), Expires: 09/05/2022Start: 07-06-2022 End: 23-08-1841EU CHEST W IVCONCT CHEST W IVCON Radiology Routine Malignant neoplasm of unspecified part of unspecified bronchus or lung (HCC) Expected: 07/06/2022 (Approximate), Expires: 05/07/2023[facility] Work Phone: Comment on above:Expected: 07/06/2022 (Approximate), Expires: 05/07/2023Start: 07-06-2022 End: 74-07-3110AWST-CoV-2 (COVID-19) RNA [Presence] in Respiratory specimen by SILVANO with probe detectionPRE-PROCEDURE & PRE-OPERATIVE COVID Microbiology Routine Preoperative examination Expected: 07/06/2022, Expires: 07/07/2023[facility] Work Phone: Comment on above:Expected: 07/06/2022, Expires: 07/07/2023Start: 07-05-2022 End: 90-65-4173Fqeqx metabolic 2000 panel - Serum or PlasmaBASIC METABOLIC PNL Lab STAT Small cell carcinoma of lung, right (HCC) Squamous cell carcinoma of ri ght lung (HCC) Lung nodule Pre-op testing Expected: 07/05/2022, Expires: 09/04/2022[facility] Work Phone: Comment on above:Expected: 07/05/2022, Expires: 09/04/2022Start: 07-05-2022 End: 40-00-0833QKP W Auto Differential panel - BloodCBC + DIFF Lab STAT Small cell carcinoma of lung, right (HCC) Squamous cell carcinoma of right lung(HCC) Lung nodule Pre-op testing Expected: 07/05/2022, Expires: 09/04/2022[facility] Work Phone: Comment on above:Expected: 07/05/2022, Expires: 09/04/2022Start: 04-01-2022 End: 61-39-3906Ai abdomen & pelvis w/contrast materialCT ABD/PEL W IVCON Radiology Routine Malignant neoplasm of unspecified part of unspecified bronchus or lung (HCC) Expected: 04/01/2022, Expires: 10/30/2022[facility] Work Phone: Comment on above:Expected: 04/01/2022, Expires: 10/30/2022Start: 04-01-2022 End: 48-28-1773KW CHEST W IVCONCT CHEST W IVCON Radiology Routine Malignant neoplasm of unspecified part of unspecified bronchus or lung (HCC) Expected: 04/01/2022, Expires: 10/30/2022[facility] Work Phone: Comment on above:Expected: 04/01/2022, Expires: 10/30/2022Start: 03-17-2022 End: 53-84-1661LTZ W Auto Differential panel - BloodCBC + DIFF Lab Routine Malignant neoplasm of unspecified part of unspecified bronchus or lung (HCC) Abnormal weight loss Expected: 03/17/2022 (Approximate), Expires: 05/17/2022 [facility] Work Phone: Comment on above:Expected: 03/17/2022 (Approximate), Expires: 05/17/2022Start: 03-17-2022 End: 29-99-4922Sfjufbdbyvunt metabolic 2000 panel - Serum or PlasmaCOMP METABOLIC PANEL Lab Routine Malignant neoplasm of unspecified part of unspecified bronchus or lung (HCC) Abnormal weight loss Expected: 03/17/2022 (Approximate), Expires: 05/17/2022[facility] Work Phone: Comment on above:Expected: 03/17/2022 (Approximate), Expires: 05/17/2022Start: 03-17-2022 End: 86-57-7288Jj thorax w/contrast materialCT CHEST W IVCON Radiology Routine Malignant neoplasm of unspecified part of unspecified bronchus or lung (HCC) Expected: 03/17/2022 (Approximate), Expires: 10/14/2022[facility] Work Phone: Comment on above:Expected: 03/17/2022 (Approximate), Expires: 10/14/2022Start: 07-67-4445NPIKBTXGIQ ASSESSMENTDEPRESSION ASSESSMENT [facility]: 49-96-8346Ycnju depression screening assessmentDEPRESSION SCREENINGSalem City Hospitaltart: 71-74-6200Lcoifsacl vaccinationINFLUENZA (#1) [facility]: 09-30-2021 End: 10-85-3056Tcersibfj virus A and B RNA and SARS-CoV-2 (COVID-19) N gene panel - Respiratory specimen by SILVANO with probe detectionCOVID WITH FLUA+B, ROUTINE Microbiology Routine Close exposure to COVID-19 virus Expected: 09/30/2021, Expires: 10/14/2021[facility] Work Phone: Comment on above:Expected: 09/30/2021, Expires: 10/14/2021tart: 34-71-0350BEJVH-19 VACCINE (5 - Booster for Pfizer series) COVID-19 VACCINE (5 - Booster for Pfizer series)[facility]: 70-60-0148IZLUD-19 VACCINE (5 - Pfizer series)COVID-19 VACCINE (5 - Pfizer series)[facility]: 37-28-9833AHKIW-19 VACCINE (4 - Booster for Pfizer series)COVID-19 VACCINE (4 - Booster for Pfizer series)[facility]: 31-31-1542RAHNNLRJKB ASSESSMENTDEPRESSION ASSESSMENTSal[facility] Hospitaltart: 20-60-1787PGMYAFVH VACCINE (1 of 2)SHINGRIX VACCINE (1 of 2)[facility] Start: 12-31-9286PFWWEERAJ (FIT-DNA)COLOGUARD (FIT-DNA)[facility]: 99-37-8490ThoyzyqcyzlMBPUKLMXWPTPvfxauvjm ClinicStart: 54-71-9910LXGDFCOQKE CANCER SCREENINGCOLORECTAL CANCER SCREENINGSal[facility] City Hospitaltart: 30-80-7812FA COLONOGRAPHYCT COLONOGRAPHYSalem City Hospitaltart: 49-12-0473WKPUK OCCULT BLOOD FECAL OCCULT BLOODSalem City Hospitaltart: 94-23-7652Hhykk 1996 panel - Serum or PlasmaLipid ScreeningSalem City Hospitaltart: 33-68-7523Bzazz panelLipid Screening [facility]: 34-73-8400MXSNA SCREENLIPID SCREENSalem City Hospitaltart: 58-72-2177Avrerulci for malignant neoplasm of colonSalem City Hospitaltart: 13-20-7292ENAGFKATEGYYMJIARDACIMMOZBSidkagepx ClinicStart: 32-89-0817Onurumfjpyl [facility]: 16-91-3573Qteajvqxz for malignant neoplasm of breast [facility]: 70-57-9465UTIYFSBWUNMM (2 - PCV)PNEUMOCOCCAL (2 - PCV) [facility]: 84-55-0264Awnim microalbumin profileSuburban Community Hospital & [facility] Start: 94-07-5093SXO TESTINGHPV TESTINGSalem City Hospitaltart: 06-27-1993 Screening for malignant neoplasm of cervixSalem City Hospitaltart: 06-27-1993 Zoledronic acid therapyAlpha-1 Antitrypsin Deficiency ScreeningSuburban Community [facility] & [facility] Start: 06-12-5130RNW TESTINGPAP TESTINGSal[facility] City Hospitaltart: 06-27-1984 Screening for malignant neoplasm of cervixSalem City Hospitaltart: 06-27-1982 SHINGRIX VACCINE (1 of 2)SHINGRIX VACCINE (1 of 2)[facility]: 79-78-4957KJIETY PCP TEAM CHRONIC DISEASE VISITANNUAL PCP TEAM CHRONIC DISEASE VISITSalem City Hospitaltart: 36-00-7896Rgnhhvj ScreeningAnxiety Screening [facility]: 35-79-0826Juhpwqlipx ScreeningDepression Screening [facility]: 45-03-1383KUGMUNSVA C SCREENINGHEPATITIS C SCREENING [facility]: 19-05-4716Xvmmzvzdj C screeningHepatitis C Screening [facility]: 56-92-4138GHG SCREENINGHIV SCREENINGSub[facility] Start: 83-38-9737QBD screeningHIV ScreeningSalem City Hospitaltart: 1965 HEPATITIS B (1 of 3 - 3-dose series)HEPATITIS B (1 of 3 - 3-dose series) [facility]: 23-77-9201Ytdlpakgt for malignant neoplasm of colonNOMS HealthcareBacteria identified in Urine by CultureURINE CULTURE Microbiology Routine Dysuria Ordered: 08/26/2021[facility] Work Phone: Comment on above:Ordered: 08/26/2021acteria identified in Urine by CultureBACTERIAL CULTURE, URINE Microbiology Routine Dysuria Malignant neoplasm of hilus of lung, unspecified laterality (HCC) Ordered: 03/29/2024[facility]:Ordered: 03/29/2024 End: 99-78-1438SHH W Auto Differential panel - BloodCOMPLETE BLOOD COUNT AND DIFFERENTIAL Lab Routine Malignant neoplasm of right lung, unspecified part of lung (HCC) Every 6 weeks for 9 Occurrences starting 12/25/2023 until 12/24/2024 [facility] Hospital[facility]:Every 6 weeks for 9 Occurrences starting 12/25/2023 until 12/24/2024lostridioides difficile toxin genes [Presence] in Stool by SILVANO with probe detectionCLOSTRIDIUM DIFFICILE TOXIN BY PCR Lab Routine Malignant neoplasm of hilus of lung, unspecified laterality (HCC) Colitis, acute 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) Diarrhea, unspecified type Ordered: 07/25/2024[facility] Work Phone: Comment on above:Ordered: 07/25/2024 End: 49-79-4514Ztcjdfrfjccyz metabolic 2000 panel - Serum or PlasmaCOMPREHENSIVE METABOLIC PANEL Lab Routine Malignant neoplasm of right lung, unspecified part of lung (HCC) Every 6 weeks for 9 Occurrences starting 12/25/2023 until 12/24/2024[facility] Work Phone: Comment on above:Every 6 weeks for 9 Occurrences starting 12/25/2023 until 12/24/2024 End: 47-81-9707Nfpzwpit [Mass/volume] in Serum or PlasmaCORTISOL, SERUM Lab Routine Abnormal blood chemistry Every 6 weeks for 9 Occurrences starting 2023 until 12/24/2024[facility] HospitalComment on above:Every 6 weeks for 9 Occurrences starting 12/25/2023 until 12/24/2024 End: 10-34-7396Pb thorax w/o contrast materialCT CHEST WO IVCON Radiology Routine Small cell carcinoma of lung, 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) Lung nodule Pre-op testing 1 Occurrences starting 07/05/[address] [place] [address] Work Phone: Comment on above:1 Occurrences starting 07/05/2022 until 08/04/2023[facility]OLOGY NON-[facility]NBl[facility] Work Phone: Comment on above:Release Upon Ordering for 1 Occurrences starting 08/10/2022, 1 completed End: 68-07-2474ULO COMPLETEECG COMPLETE ECG STAT Small cell carcinoma of lung, 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) Lung nodule Pre-op testing 1 Occurrences starting 07/05/[address] [place] [address] Work Phone: Comment on above:1 Occurrences starting 07/05/2022 until 07/06/2023ENTERIC BACTERIAL PANEL BY PCRENTERIC BACTERIAL PANEL BY PCR Lab Routine Malignant neoplasm of hilus of lung, unspecified laterality (HCC) Colitis, acute 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) Diarrhea, unspecified type Ordered: 07/25/2024[facility] HospitalComment on above:Ordered: 07/25/2024 End: 94-39-6496Majcendubi A1c in BloodHEMOGLOBIN A1C Lab Routine Abnormal blood chemistry Every 6 weeks for 9 Occurrences starting 12/25/2023 until 12/24/2024 [facility] HospitalComment on above:Every 6 weeks for 9 Occurrences starting 12/25/2023 until 12/24/2024Hepatic function panelZanesville City HospitalHepatic function panelZanesville City Hospital End: 40-06-4310Add brain brain stem w/o w/contrast materialMRI BRAIN WO/W IVCON Radiology Routine Malignant neoplasm of unspecified part of unspecified bronchus or lung (HCC) 1 [facility]ur[facility] 09[facility]14[facility]2021 [facility] Work Phone: Comment on above:1 Occurrences starting 09/14/2021 until 10/14/2022 End: 76-30-2972EBE+CT Guidance for localization of tumor of Skull base to mid-thigh-- W 18F-FDG IVNM PET/CT SKULL-THIGH SUBSEQUENT Radiology Routine Malignant neoplasm of hilus of lung, unspecifiedlaterality (HCC) Malaise and fatigue Malignant neoplasm of unspecified part of unspecified bronchusor lung (HCC) 1 Occurrences starting 05/30/2023 until 5[facility] Work Phone: Comment on above:1 Occurrences starting 05/30/2023 until 2024PET+CT Guidance for localization of tumor of Skull base to mid-thigh-- W 18F-FDG IVNM PET/CT SKULL-THIGH SUBSEQUENT Radiology Routine Malignant neoplasm of unspecified part of unspecified bronchus or lung (HCC) Malignant neoplasm of hilus of lung, unspecified laterality (HCC) Malignant neoplasm of right lung, unspecified part of lung (HCC) 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, unspecified laterality (HCC) 04/30/2024 12:57 PM [facility] Work Phone: End: 70-99-5790IMP+CT Guidance for localization of tumor of Skull base to mid-thigh-- W 18F-FDG IVNM PET/CT SKULL-THIGH SUBSEQUENT Radiology Routine Malignant neoplasm of unspecified part of unspecified bronchus or lung (HCC) 1 Occurrences starting 08/09/2024 until 09/08/2025[facility] Work Phone: Comment on above:1 Occurrences starting 08/09/2024 until 09/08/2025PET+CT Guidance for localization of tumor of Skull base to mid-thigh-- W 18F-FDG IVNM PET/CT SKULL-THIGH SUBSEQUENT Radiology Routine Malignant neoplasm of unspecified part of unspecified bronchus or lung (HCC) 08/27/2024 2:[address] 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) Acute hepatitis Tongue lesion Hypothyroidism due to medication 1 Occurrences starting 11/07/2024 until 12/07/2025[facility] Work Phone: Comment on above:1 Occurrences starting 11/07/2024 until 12/07/2025REFERRAL FOR ADDITIONAL BIOMARKER AND MOLECULAR TESTINGBlanchard Valley Health [facility] [facility] Work Phone: [phone]-ZlN-2 (COVID-19) RNA [Presence] in Respiratory specimen by SILVANO with probe detectionSELF CHECK COVID Microbiology Routine Small cell carcinoma of lung, 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) Lung nodule Pre-op testing Ordered: 07/05/2022[facility] Work Phone: Comment on above:Ordered: 07/05/2022SURGICAL PATHOLOGY [facility] Work Phone: Comment on above:Release Upon Ordering for 1 Occurrences starting 08/10/2022, 1 completedThyrotropin [Units/volume] in Serum or PlasmaTSH BLD Lab Routine Malaise and fatigue 01/04/2023 1:[address] [facility] Work Phone: End: 45-97-2467Bggtcatpjmx [Units/volume] in Serum or PlasmaTHYROID STIMULATING HORMONE Lab Routine Malaise and fatigue Every 6 weeks for 9 Occurrences starting 12/25/2023 until 12/24/2024[facility]:Every 6 weeks for 9 Occurrences starting 12/25/2023 until 12/24/2024UA DIP, URINE (POC)UA DIP, URINE (POC) Lab Routine Dysuria Ordered: 08/26/2021[facility] Work Phone: Comment on above:Ordered: 08/26/2021UA DIP, URINE (POC)UA DIP, URINE (POC) Lab Routine Dysuria Malignant neoplasm of hilus of lung, unspecified laterality(HCC) Ordered: 03/29/2024[facility] Work Phone: Comment on above:Ordered: 03/29/2024[facility] Immunizations Immunization DateImmunizationNotesCare OkgwugflDcwcyppg21-72-5250mxfqzgspksnz (PCV20) vaccine, 20 valent (PREVNAR 20)Otoniel Adhikari MD Work Phone: [facility] HospitalClhudt23-92-8249vgumyqzld nasal, unspecified formulationBrNorth Central [facility] Hospital MEAT TEAM LEAD.MULTIGRAPH OPERATOR Work Phone: [facility] HospitalOfdonb38-51-0737bslmgcmsy virus vaccine, unspecified formulationJENNCHARLINE RINCON [facility]10-06-2022influenza, injectable, quadrivalent, contains preservativePulm [place]2 Work Phone: [facility] HospitalIoqcga00-46-1091SXUUG-55 original vaccine, age 12+ yr, monovalent (InSample-PipetteNTFoodcloud - FOSTER TOP)Otoniel Adhikari MD Work Phone: [facility] HospitalMlyjqw93-65-1735VSOS-MsL-4 mRNA (djgbmcdcdrx-vqlz-sjgvwpu) vaccineJENNIFER MCKENZIE [facility]10-08-2021SARS-CoV-2 (COVID-19) mRNA BNT-162b2 vaxJENNIFER MCKENZIE [facility]09-16-2021influenza nasal, unspecified formulationDre Cantor MD Work Phone: [facility] HospitalFwkdeu60-83-5455njbjmwkoy virus vaccine, unspecified formulationJENNIFER MCKENZIE [facility]09-16-2021influenza, injectable, quadrivalent, preservative freeMindy Franco PA-C Work Phone: [facility] HospitalQmgvvc49-84-3271TRXFV-57 vaccine, age 12+ yr (PFIZER-BIONTECH - PURPLE TOP)Raphael Franco PA-C Work Phone: [facility] HospitalBhmfla81-08-3111AQKZO-60 vaccine, age 12+ yr (PFIZER-BIONTECH - PURPLE TOP)Raphael Franco PA-C Work Phone: [facility] HospitalRocbli21-67-2809weyukaeqn nasal, unspecified formulationDre Cantor MD Work Phone: [facility] HospitalWuhsyx70-02-5594hcybhlgtr virus vaccine, unspecified formulationJENNIFER MCKENZIE [facility]11-05-2020Influenza, injectable, Madin [place] Canine Kidney, preservative free, quadrivalentMindy Franco PA-C Work Phone: [facility] HospitalYbgckw28-07-9641cltixbaqeyhs polysaccharide vaccine, 23 valentMindy Franco PA-C Work Phone: [facility] HospitalQhfkwp30-88-6462FS(adult) unspecified formulation; Translations: [Td(adult) unspecified formulation]Raphael Franco PA-C Work Phone: [facility] HospitalNEGATED: Highlighted row has not occurred!04-13-4935RSXD-CoV-2 mRNA (tozinameran 5y-11y) vaccineJENNIFER MCKENZIE [facility] Makenzie Willingham DatePayer CategoryPayerPolicy [id number]-[id number] [id number] Cross Blue Shield [id number] BLUE CARD PPO OOS [id number] 03/13/2017-Present [phone] [address] [place], [place] [address]CBTjedvsuls2231 1.2.840.437376.1.13.159.2.7.3.884624.16833-63-5911Gngteov 1.2.840.465643.1.13.159.2.7.3.003019.4[id number] sn1ji3a9-np1b-4206-11n9-m4zd8[id number] 2..1.419186.3.57[id number] 2.0.1.096352.3.579.[id number] 2.0.1.355283.3.579.[id number] 2.0.1.577125.3.579.2.[id number] 2.0.1.870497.3.57[id number] 2.0.1.292468.3.579.[id number] 2.840.1.300969.3.579.[id number] 2..840.1.019115.3.579.[id number] 2..840.1.978728.3.57[id number] 2.840.1.385016.3.57[id number] 2.840.1.305555.3.579.2.316428-50-3265Ijgqbfd9746122 2.0.1.838839.3.579.2.[id number] 2.0.1.034541.3.579.[id number] 2.0.1.870815.3.57[id number] 2.0.1.646807.3.579.2.99337-65-0496VbxaNew Sunrise Regional Treatment [id number] 2..1.669485.19Private [facility] Wagqkxbyssh7901r1-d202-900l-514u-[id number] [id number] 2..1.128808.3.579.2.531 Social History DateTypeDetailFacilityStart: 01-12-2017 End: 30-43-6470Jpqhkir smoking status NHISSmokes tobacco dailySub[facility] History of tobacco useCigarette SmokerSalem City Hospitaltart: 01-12-2017 End: 97-04-2542Dztwpedoaq smoked current (pack per day) - Reported1.5CMount St. Mary Hospitaltart: 01-12-2017 End: 49-33-8746Ifogvzc use and exposureSmokeless tobacco non-userSalem City Hospitaltart: 02-11-2021 End: 45-17-5885Llskyzs intakeCurrent non-drinker of alcohol (finding)[facility] Hospitaltart: 84-96-9435Gzj Assigned At BirthNot on fileSalem City Hospitaltart: 07-20-2022 End: 86-23-6779Miz [facility]: 01-26-2021 End: 85-57-9099Xgvkowex to SARS-CoV-2 (event)Not sureSalem City Hospitaltart: 40-13-2426Izpqtxn smoking status NHISSmoker (finding)[facility] Hospitaltart: 30-55-1312Kqc Assigned At [facility]tart: 05-20-2020 End: 22-99-8716Xravgud smoking statusHeavy tobacco smoker (finding)[facility] GeneralComment on above:Started smoking againdeniesStart: 30-37-7778Bhstl Depression Screening Xkuhqdyjvm5Tlrrogicg ClinicComment on above:Started smoking againdeniesStart: 38-36-7188Bgsnucq Comment4 cigs per day [facility] Hospitaltart: 11-01-2022 End: 00-15-1833Omuwgca smoking statusLight tobacco smoker (finding)[facility] CenterComment on above:Started smoking againdeniesTobacco smoking status NHISTobacco smoking consumption unknownNOMS HealthcareStart: 54-53-0975Maksno identityIdentifies as female gender (finding) [facility] HealthcareStart: 74-02-3249RnnXpmmpf (finding)[facility] Hospitalexual OrientationPeoples Hospital Digestive [facility] Functional Status MnijZsdyatpkqqOcemjsYzkxpcgj47-76-3461Vphojwvrvv StatusN/AExec[facility]08-22-2023Functional StatusN/A[facility]02-22-2023Functional StatusN/A [facility]11-02-2017Are you deaf, or do you have serious difficulty hearingNo 01/12/2017 3:33 PM EDT Tae Bustillos [facility] HospitalCuoehr94-72-3649Bgq you blind, or do you have serious difficulty seeing, even when wearing glassesNo 01/12/2017 3:33 PM EDT Tae Bustillos No [facility] HospitalRvjnlm59-12-9123Oi you have serious difficulty walking or climbing stairsNo 01/12/2017 3:33 PM EDT Tae Bustillos [facility]11-02-2017Do you have difficulty dressing or bathingNo 01/12/2017 3:33 PM EDT Apollo Tae Tran No [facility] HospitalLrllfe92-09-0760Wtfksgd of a physical, mental, or emotional condition, do you have difficulty doing errands alone such as visiting a physician's office or shoppingNo 01/12/2017 3:33 PM EDT Tae Bustillos [facility] Mental Status OnsfGlbsxbstnyJwavofCnreqoeh81-22-0453Sbjnjhr of a physical, mental, or emotional condition, do you have serious difficulty concentrating, remembering, or making decisionsNo 01/12/2017 3:33 PM EDT Tae Bustillos [facility] Clinical Notes 01-12-2017 to 12-17-2024 Note Date & IhvhBnwpQhhnismv12-13-0355 [facility]2025 [facility]Ke[facility]10-[facility]-2025 [facility] 11-25-2024 Telephone encounter Note* Telephone Encounter - Shyla Mayer APRN.CNP - 11/25/2024 11:29 AM EDT The following approved medication requests have been transmitted electronically. Requested Prescriptions Signed Prescriptions Disp Refills pantoprazole DR (PROTONIX) 40 mg tablet 180 tablet 1 Sig: TAKE 1 TABLET BY MOUTH TWICE A DAY Authorizing Provider: SHYLA MAYER APRN.CNP [facility]09-15-2025 Miscellaneous Notes* Telephone Encounter - Shyla Mayer APRN.CNP - 11/25/2024 11:29 AM EDT The following approved medication requests have been transmitted electronically. Requested Prescriptions Signed Prescriptions Disp Refills pantoprazole DR (PROTONIX) 40 mg tablet 180 tablet 1 Sig: TAKE 1 TABLET BY MOUTH TWICE A DAY Authorizing Provider: SHYLA MAYER APRN.CNP documented in this encounterSuburban [facility] & [facility]08-28-2025 NoteKeenan Private Hospital08-28-2025 History of Present illness Narrative* Sally Blanco RN - 11/07/2024 2:25 PM EDT Patient education complete regarding weight based dosing with rational. She has verbalized understanding and agrees with the plan. Sally Blanco RN documented in this encounterSuburban Community Hospital & [facility]08-28-2025 NoteKeenan [facility] Hospital08-28-2025 History of Present illness Narrative* Shyla Mayer APRN.CNP - 11/07/2024 1:15 PM EDT Images from the original note were not included. NAME: Debby Hermosillo [facility] NO.: [id number] DATE OF SERVICE: November 07, 2024 ([place]) Some elements in this clinic note that are critical to medical decision making have been carefully reviewed and included from a prior clinic note dated: September 05, 2024 (Reba) Referring Provider: Otoniel Adhikari MD Additional Clinicians involved in Debby [...] 360 08/2022: MICHAEL splice site SNV, JAYLIN CASE SUMMARY / ASSESSMENT: 59 year old female here for follow up. [...] when she had small cell lung cancer. 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 Both AE's have responded nicely to prednisone and will taper further to 10 mg daily before restarting I/O Plan was to keep her on prednisone 10 mg and resume treatment. Patient elected to abruptly stop theprednisone. Within a short time of stopping the prednisone she began having diarrhea stools. Prednisone was resumed at 10 mg daily. SUMMARIZED PLAN OF CARE: Obtain procedure and office notes from ENT Continue Keytruda today and q 6 weeks Labs q 6 weeks RTC in 6 weeks with labs clinician and Keytruda Ordered PET scan to be completed prior to return visit Continue Prednisone 10 mg for immune mediated colitis (Patient inquired about stopping - Recommended continuation due to history of immunotherapy colitis and elevated LFTs) Continue Synthroid 25 mcg daily Continue Protonix 40 mg twice daily Encouraged she continue the Carafate HPI: CASE HISTORY: Reverse Chronological Order 08/27/2024 - PET/CT: PRIMARY DISEASE SITE: * Right upper lobe peribronchiolar nodular opacity with air bronchograms and associated low-level metabolic activity is not substantially changed, presumed posttreatment relateduptake. JUAN ANTONIO DISEASE: * No metabolically active regional lymphadenopathy. METASTATIC DISEASE: * No metabolically active distant metastases. ADDITIONAL FINDINGS: * Persistent, intense metabolic activity localizing to the right aspect of thetongue . Although this is nonspecific and may be physiologic, correlation with direct visualizationis recommended to evaluate for an underlying lesion 06/20/2024 - ?? Immune mediated colitis - Start Prednisone 40 mg and taper weekly 06/18/2024 - CT Abdomen: at [facility] ER for elevated LFTs Intra and extrahepatic biliary dilation, probably related to cholecystectomy 04/30/2024 - PET/CT: Since 01/12/2024, no evidence of FDG avid disease. Posttreatment changes in the right lung. 02/19/2024 - GKS right frontal lesion 01/26/2024 - MRI Brain: Interval development of a 0.8 x 0.7 [...] musculature surrounding the right ischium, likely strain ortrauma. 09/28/2023 - CT CAP: Chest: Stable appearance [...] undergo continued close imaging surveillance. No significant thoracicadenopathy. A/P: No evidence of metastatic disease in [...] to posttherapy changes and healing. Attention on follow-upCT scan of the chest. Stable posttreatment changes [...] A - TRANSBRONCHIAL FINE-NEEDLE ASPIRATION - LINGULA NODULE: - Positive for malignant cells. - Adenocarcinoma. B - EBUS TRANSBRONCHIAL FINE NEEDLE ASPIRATE, LYMPH NODE - 4L: - Positive for malignant cells. - Adenocarcinoma. [...] for neoplasm. No hypermetabolic lymphadenopathy. Abdomen and Pelvis: No evidence of FDG avid neoplastic process [...] and reticular opacities, likely on the basis ofposttreatment change. No evidence of bulky intrathoracic lymphadenopathy. 07/18/2019 - PET/CT: NECK: NO FDG AVID NEOPLASTIC PROCESS.. CHEST: NO FDG AVID NEOPLASTIC PROCESS. 1.4 X 0.9 CM HYPOMETABOLIC RIGHT UPPER LOBE NODULE WITH ADJACENT PARENCHYMAL SCARRING LATERALLY, IMPROVED SINCE 01/09/2019. FINDINGS ARE COMPATIBLE WITH SATISFACTORY RESPONSE OF TREATED RIGHT UPPER LOBE NODULE POST CHEMORADIATION. 0.6 CM AND 0.4 CM FAINT RIGHTMIDDLE LOBE GROUNDGLASS ATTENUATION DENSITIES, STABLE SINCE 09/12/2017. ABDOMEN/PELVIS: NO FDG AVID NEOPLASTIC PROCESS. EXTREMITIES/SKELETON: NO SUSPICIOUS FDG AVID OSSEOUS LESION. 04/09/2018 - Discontinued Imfinzi per Dr. Beaver due to pancreatitis 01/16/2018-01/29/2018 - PCI whole brain 2500 cGy in [address] Carrero 03/24/2017-07/12/2017 - Concurrent carboplatin and etoposide (5 cycles) 03/24/2017-05/17/2017 - Concurrent radiation HPI: Updated Visit, November 07, 2024: Patient with a history of lung cancer, currently managed with Keytruda every 6 weeks, presents for follow-up. She has been treated for gastric ulcers for years, currently taking Protonix twice daily and sucralfate 1g four times daily. She recently saw her diploma pharmacy technician a couple of weeks ago, who mentioned a possible colonoscopy but has not scheduled it yet. She was also advised to undergo a gastric emptying study, which she declined. She reports a recent increase in cough, producing clear sputum, and has been experiencing a few migraines per month. She denies any recent nausea, vomiting, or diarrhea and reports normal bowel movements daily. She also notes a non- pruritic rash on her arms. She is on a low dose of prednisone, which she recently ran out of, and reports feeling hot, attributing it to the steroids. She mentions a recent weight of 87 pounds and feels that the steroids have caused abdominal distension. She recently saw an ENT specialist who performed a nasal endoscopy, which was unremarkable, and no biopsies were taken. Recent labs show a WBC count of 16.58 x 10^9/L, hemoglobin at 11.9 g/dL, and normal platelet count. Updated Visit, September 05, 2024: Returns alone today. 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 She underwent chemotherapy and radiation therapy to the right upper lobe. In June 2022, imaging revealed an enlarging mass in the left upper lobe, as well as lingular and right lower lobe lesions. Biopsies confirmed adenocarcinoma in the lingula, 4L, and right lower lobe,with KRAS A146 mutation and a PD-L1 score of 100%. A PET scan indicated stage IV disease, though a brain MRI was negative. She began pembrolizumab in December 2022. In January 2024, a frontal brain lesion was detected, and she underwent Gamma Knife radiosurgery on February 19, 2024. Prior to this, she had received prophylactic cranial irradiation due to small cell lung cancer. Recent PET scan on August 27 showed changes in the right upper lobe likely related to prior treatment, with no evidence of juan antonio involvement or distant metastases. However, there was intense activityinvolving the right side of the tongue. Patient reports polyuria in the mornings, urinating every 10 minutes after consuming three cups of coffee, which resolves by noon. She denies symptoms of a UTI but will undergo a urinalysis with culture if indicated. She also notes a funny sensation on the left side of her tongue and frequent manipulation of the area, possibly related to recent increased consumption of vinegar-containing foods. She expresses anxiety about seeing a dentist and prefers a referral to an ENT specialist. She reports that her diarrhea has resolved after restarting prednisone 10 mg daily. She is currently on Synthroid and Protonix. She also notes thin skin with ecchymoses and easy bruising on her arms,which she attributes to treatment and sun exposure. Ears/Nose/Mouth/Throat: (+) left tongue paresthesia, (-) tongue pain Gastrointestinal: (-) diarrhea Genitourinary: (+) urinary frequency Skin: (+) easy skin tearing Psychiatric: (+) situational anxiety about dental visits Updated Visit, August 09, 2024: Debby Hermosillo returns for scheduled follow-up. At her last visit prednisone 20 mg was resumed due to recurrent diarrhea. Today, she states that the diarrhea has resolved. She denies any blood in her stools. She has occasional nausea without vomiting. She complains of an upset stomach. She remains on Protonix 40 mg twice daily. She has not been taking the Carafate. She is eating and drinking well. She states that since resuming the prednisone her appetite has increased. She has gained weight. Patient had collected a stool sample and brought to office for testing as recommended. She states that her was told they would not be able to process without a clear reason as to why. Last pembrolizumab was on 05/02/2024. Updated Visit, July 25, 2024: Debby Hermosillo returns for scheduled follow-up. 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 1 week ago, the patient elected to stop the prednisone. Recommendation was to decrease prednisone to 10 mg daily, in order to possibly resume treatment. Shortly after stopping the prednisone, the patient developed recurrent severe diarrhea. This morning she had 5 diarrheal stools.She denies any blood in her stools. She states that her stools are dark pineda in color. The diarrheahas been ongoing for the last 2 days. She is not eating well. She states she is drinking plenty of fluids. She denies nausea and vomiting. She has an upset stomach. She has been taking pbds-fap-dkjpolh Pepto-Bismol pills. She resumed prednisone 20 mg this morning. She denies any fevers or chills. She has had no recent antibiotic use. She denies any skin rashes. She has a chronic cough which is unchanged. Updated Visit, July 04, 2024: Debby returns for a follow up. She endorses improvement in diarrhea with prednisone - will taper to 10mg. She may need to increase to 20mg if diarrhea returns. Will continue holding Keytruda and reconsider in 3 weeks. Liver enzymes have improved. Updated Visit, June 20, 2024: Debby returns for a follow up. On 06/18/2024, she was sent to the ER at [facility] by another physician for liver workup. CT revealed intra and extrahepatic biliary dilation, probably related to cholecystectomy. She endorses bowel incontinence and diarrhea. Will hold C9 today and start prednisone. Also sent rx for Synthroid as TSH is 9.060 due to Keytruda. Updated Visit, June 13, 2024: Debby returns today. She denies new rashes, shortness of breath, and diarrhea. She was seen in the ER about 1 week ago for pain due to ulcers and a hernia. She does endorse vision changes since GKRS. She has not yet followed up with neurosurgery. LFTs are elevated today - will hold C9 Keytruda today and repeat CMP in 1 week to monitor. She has not started any new medications, including Tylenol,and she does not drink alcohol. Updated Visit, May 02, 2024: Debby returns [...] her right frontal lesion. She is finishing asteroid taper per NS team. She has not [...] mg BID. She is scheduled to see [facility] team 02/14. She has had multiple falls and her family finds her laying on the floor and she doesn't remember how she got there. She also was driving her son to work and got lost and didn't know how to get home. She did have some diarrhea for 2-3 weeks liquid stools4-5 times a day. It went away on its own. She is eating and drinking okay. She does have some vision changes. She is no longer driving. No pain. Updated Visit, January 12, 2024: Debby returns for a follow up. She has her MRI of the brain scheduled for 01/14. Final reading oftoday's PET/CT are in process - on my initial view, I do not see any cause for concern. For the past 1.5 months, she has not had the strength to get back up after bending over. She endorses difficulty driving in the dark - recommended she follow up with her supervisor white sugar. Updated Visit, December 27, 2023: Debby returns for a follow up. She reports about 3 weeks ago, her found her asleep on thefloor but she does not remember how she got there. Her elbows had wounds indicative of a fall - healed now. She complains of buttock pain, similar to a pain she had in the past. I will order a PET/CTand MRI of the brain to evaluate her [...] wait to correct with next lab test. Mother had thyroid cancer More tired than usual [...] PERFORMANCE STATUS: 1 PHYSICAL EXAMINATION: Vitals: BP 164/85 Pulse 107 Temp (Src) 97.1 (Temporal) Resp 16 Ht 4' 11.843 (1.52m) Wt 87 lb 8.4 oz (39.7kg) SpO2 96% BMI 17.18 kg/(m^2). Body surface area is 1.29 meters squared. Exam limited to gross visualization [...] ALLERGIES: ALLERGIES Allergen Reactions Penicillins Unknown MEDICATIONS: KEYTRUDA 25 mg/mL injection INFUSE 168 MG INTRAVENOUSLY EVERY 6 WEEKS levothyroxine (SYNTHROID) 25 mcg tablet TAKE 1 TABLET BY MOUTH EVERY DAY benzonatate (TESSALON PERLE) 100 mg capsule take 1 capsule by mouth three times a day as needed forcough ondansetron (ZOFRAN) 8 mg tablet Take 1 tablet by mouth every 8 hours as needed for nausea/vomiting. prochlorperazine (COMPAZINE) 10 mg tablet TAKE 1 TABLET BY MOUTH EVERY 6 HOURS NEEDED furosemide (LASIX) 20 mg tablet Take 1 tablet by mouth once daily. famotidine (PEPCID) 20 mg tablet Take 1 tablet by mouth once daily. pantoprazole DR (PROTONIX) 40 mg tablet Take 1 tablet by mouth two times a day. sucralfate (CARAFATE) 1 gram tablet TAKE 1 TABLET BY MOUTH FOUR TIMES A DAY KLOR-CON M20 20 mEq tablet TAKE 1 TABLET BY MOUTH EVERY DAY folic acid 1 mg tablet take 1 tablet by mouth every day buprenorphine-naloxone (SUBOXONE) 8-2 mg film Dissolve under the tongue once daily. SUBOXONE 8-2 mg film Dissolve [...] mouth. LABORATORY VALUES: WBC (k/uL) Date Value 11/07/2024 16.58 (H) RBC (m/uL) Date Value 11/07/2024 3.93 Hemoglobin (g/dL) Date Value 11/07/2024 11.9 Hematocrit (%) Date Value 11/07/2024 37.7 MCV (fL) Date Value 11/07/2024 95.9 MCH (pg) Date Value 11/07/2024 30.3 MCHC (g/dL) Date Value 11/07/2024 31.6 RDW-CV (%) Date Value 11/07/2024 15.8 (H) Platelet Count (k/uL) Date Value 11/07/2024 297 MPV (fL) Date Value 11/07/2024 9.1 Glucose (mg/dL) Date Value 11/07/2024 134 (H) BUN (mg/dL) Date Value 11/07/2024 23 (H) Creatinine (mg/dL) Date Value 11/07/2024 1.12 (H) Sodium (mmol/L) Date Value 11/07/2024 136 Potassium (mmol/L) Date Value 11/07/2024 4.1 Chloride (mmol/L) Date Value 11/07/2024 96 (L) CO2 (mmol/L) Date Value 11/07/2024 28 Protein, Total (g/dL) Date Value 11/07/2024 6.8 Albumin (g/dL) Date Value 11/07/2024 4.4 Calcium, Total (mg/dL) Date Value 11/07/2024 9.7 Alkaline Phosphatase (U/L) Date Value 11/07/2024 120 Bilirubin, Total (mg/dL) Date Value 11/07/2024 0.3 AST (U/L) Date Value 11/07/2024 12 (L) ALT (U/L) Date Value 11/07/2024 9 DIAGNOSIS: (C34.00) Malignant neoplasm of hilus of lung, unspecified laterality (HCC) (primary encounter diagnosis) (C34.90, C79.51) 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) (B17.9) Acute hepatitis (K14.8) Tongue lesion (E03.2) Hypothyroidism due to medication PAST MEDICAL HISTORY Diagnosis Date Acute, but ill-defined, cerebrovascular disease 10/2021 Adenocarcinoma of left lung (HCC) 08/10/2022 4L and Lingula Arthritis Asthma (HCC) Back pain chronic Carpal tunnel syndrome, bilateral s/p repair 2016 Current smoker DDD (degenerative disc disease), lumbar GERD (gastroesophageal reflux disease) Kidney stones Malignant neoplasm of lower lobe of right lung (HCC) 11/15/2022 Neck pain Neuropathy unclear origin- 6 months? saw neurologist (Dr. Hearn- In [facility]); possible MS? Osteoporosis Pneumonia 06/2016 & [...] which included preparing to see the patient, [id number] patient care, completing clinical documentation, obtaining and/or reviewing separately obtained history, performing a medically appropriate examination, counseling and educating the pat ient/family/caregiver, ordering medications, tests, or procedures, independently interpreting results (not separately reported), and communicating results to the patient/family/caregiver. Shyla Mayer APRN.CNP Hematology and Oncology Services Provided at: [place], [place] CC: Milton Madison MD documented in [facility] encounter[facility] Telephone encounter Note * Telephone Encounter - Briseyda Ewing - 10/31/2024 3:03 PM EDT Patient has been rescheduled for 11/07. LMOV with this date/time. Thanks! Briseyda Ewing [facility]08-21-2025 Miscellaneous Notes* Telephone Encounter - Briseyda Ewing - 10/31/2024 3:03 PM EDT Patient has been rescheduled for 11/07. LMOV with this date/time. Thanks! Briseyda Ewing * Telephone Encounter - Mila Briscoe RN - 10/31/2024 2:39 PM EDT Call received from pt stating she needs to reschedule her appointment she missed here on 10/17. Please call pt and schedule. Per my chart message pt should have labs, follow up, and treatment next week. Thanks Mila Briscoe RN documented in this encounterSub[facility] Telephone encounter Note * Telephone Encounter - Mila Briscoe RN - 10/31/2024 2:39 PM EDT Call received from pt stating she needs to reschedule her appointment she missed here on 10/17. Please call pt and schedule. Per my chart message pt should have labs, follow up, and treatment next week. Thanks Mila Briscoe RN [facility] Work Phone: [phone] History of Present illness Narrative* Cinthia Clayton, DO - 10/31/2024 2:30 PM EDT Subjective Patient ID: Debby Hermosillo is a 59 y.o. female who presents for Mouth Lesions (New Patient : tongue lesion on PET) HPI 59-year-old white female presents today for evaluation of possible tongue mass. Patient recently underwent PET scan for evaluation of other malignancy. Found to have significant uptake in the area ofthe right base of tongue. Presents today for further evaluation treatment Review of Systems Patient denies any pain or fever. Denies any difficulty swallowing. She is a smoker. Currently being treated with chemotherapy. The rest of her review of systems is negative Allergies as of 10/31/2024 - Reviewed 10/31/2024 Allergen Reaction Noted Penicillins Unknown 01/12/2017 Past Medical History: Diagnosis Date Admission for chemotherapy 10/30/2024 Last 03/05/18 Age-related osteoporosis without current pathological fracture 10/30/2024 Anemia 01/01/2018 Anemia due to antineoplastic chemotherapy 05/23/2017 Arthritis Asthma (HCC) Back pain Carpal tunnel syndrome, left 10/30/2024 Centrilobular emphysema ([facility]) 11/15/2022 Chronic bilateral low back pain without sciatica 01/12/2017 Cough in adult 11/06/2017 CTS (carpal tunnel syndrome) Current smoker 10/30/2024 Added secondary to documentation in Social History. CVA (cerebral vascular accident) ([facility]) Discharge planning issues 11/15/2022 Epigastric pain 10/30/2024 Family history of colon cancer 10/30/2024 GERD (gastroesophageal reflux disease) Herniated cervical disc 10/30/2024 History of musculoskeletal disorder 10/30/2024 Kidney stone Lung cancer, primary, with metastasis from lung to other site ([facility]) brain Lung mass 10/30/2024 Malignant neoplasm of lower lobe of right lung (HCC) 11/15/2022 Malignant neoplasm of unspecified part of right bronchus or lung (HCC) 03/13/2017 Malignant neoplasm of upper lobe of left lung (HCC) 12/13/2022 Nausea 02/12/2018 Neck pain Neuropathy Nicotine use disorder 01/12/2017 Non-ulcer dyspepsia 10/30/2024 Osteoporosis Pain, postoperative, acute 11/15/2022 Peptic ulcer 11/06/2017 Pneumonia Primary malignant neoplasm of lung (HCC) 10/30/2024 Recurrent UTI Red blood cell antibody positive 11/23/2022 See Blood Bank Report, Antibody Interpretation for details. Renal stone 10/30/2024 Smoker Spinal cord compression (HCC) 10/30/2024 Thrombocytopenia 05/08/2017 UTI symptoms 10/30/2024 Vitamin D deficiency 10/30/2024 Vomiting 10/30/2024 Current Outpatient Medications: acetaminophen (Tylenol) 325 MG tablet, every 6 (six) hours, Disp: , Rfl: aspirin 81 MG EC tablet, Take 81 mg by mouth in the morning., Disp: , Rfl: benzonatate (Tessalon) 100 MG capsule, , Disp: , Rfl: Buprenorphine HCl-Naloxone HCl (Suboxone) 8-2 MG SL film, , Disp: , Rfl: dextrose 5 % solution 50 mL with pembrolizumab 100 MG/4ML solution, Infuse into a venous catheter 1(one) time, Disp: , Rfl: famotidine (Pepcid) 20 MG tablet, Take 20 mg by mouth in the morning., Disp: , Rfl: folic acid (Folvite) 1 MG tablet, Take 1 mg by mouth in the morning., Disp: , Rfl: furosemide (Lasix) 20 MG tablet, Take 20 mg by mouth in the morning., Disp: , Rfl: KLOR-CON 20 MEQ ER tablet, Take 20 mEq by mouth Daily, Disp: , Rfl: levothyroxine (Synthroid, Levoxyl) 25 MCG tablet, Take by mouth in the morning. Take before meals.,Disp: , Rfl: OLANZapine (ZyPREXA) 5 MG tablet, Take 1 tablet by mouth at bedtime, Disp: , Rfl: ondansetron (Zofran) 8 MG tablet, Take 8 mg by mouth every 8 (eight) hours if needed, Disp: , Rfl: pantoprazole (ProtoNix) 40 MG EC tablet, Take 40 mg by mouth Daily, Disp: , Rfl: prochlorperazine (Compazine) 10 MG tablet, Take 10 mg by mouth every 6 (six) hours if needed, Disp:, Rfl: Rimegepant Sulfate (Nurtec) 75 MG tablet dispersible, Take one 75 mg tablet by mouth every other day for migraine prevention. Allow tablet to dissolve entirely., Disp: 16 tablet, Rfl: 11 Past Surgical History: Procedure Laterality Date CARPAL TUNNEL RELEASE Bilateral CHOLECYSTECTOMY COLONOSCOPY HYSTERECTOMY LUNG CANCER SURGERY NOSE SURGERY Social History Socioeconomic History Marital status: Spouse name: Not on file Number of children: Not on file Years of education: Not on file Highest education level: Not on file Occupational History Not on file Tobacco Use Smoking status: Every Day Types: Cigarettes Smokeless tobacco: Never Substance and Sexual Activity Alcohol use: Not on file Drug use: Not on file Sexual activity: Not on file Other Topics Concern Not on file Social History Narrative Not on file Social Drivers of Health Financial Resource Strain: Not on file Food Insecurity: Not on file Transportation Needs: Not on file Physical Activity: Not on file Stress: Not on file Social Connections: Not on file Intimate Partner Violence: Not on file Housing Stability: Not on file Objective ENT Physical Exam General Examination: General overview: Normal, age-appropriate, no evidence of distress, very thin, appears ill Head: Normocephalic, atraumatic Eyes: Pupils are equally round and reactive to light and accommodation, extraocular muscles are intact Ears: External ear architecture within normal limits, ear canals are patent, tympanic membranes areintact. Nose: External nose unremarkable, nares patent, septum intact, no evidence of congestion. Obvious evidence of smoking Oral cavity: Mucosa moist, no evidence of ulcer, mass, or lesion, obvious evidence of smoking. Manual palpation of the tongue yields no evidence of mass or induration Throat: Clear, indirect examination is incomplete Fiberoptic laryngoscopy Consent was obtained Anesthesia: Topical xylocaine with Afrin mixture sprayed into the nasal airways bilaterally. Procedure: A diagnostic flexible fiberoptic laryngoscopy was performed. The flexible fiberoptic laryngoscope was placed into the nasal airway and advanced to the nasopharynx. Further advancement is completed down to the level of the epiglottis. Examination of the larynx including both surfaces of the epiglottis, false vocal and true vocal cords, arytenoids, and surrounding mucosal surfaces show no evidence of lesion, ulceration, or mass. Bilateral vocal cords have good motion. Bilateral piriform sinuses and base of tongue appear without lesion. There is obvious motion in the area of the base of tongue on the right. No evidence of neoplastic change Neck/thyroid: Neck supple, full range of motion, no cervical lymphadenopathy, no evidence of thyromegaly Lymph nodes: No cervical lymphadenopathy Skin: Warm and dry, no evidence of suspicious lesions, no rash Heart: No jugular venous distention, point of maximal impulse normal Lungs: Good air movement, no audible wheezing, no shortness of breath Chest: Normal shape and expansion Abdomen: Normal, soft, nontender, nondistended Musculoskeletal: Cervical spine normal, full range of motion Extremities: No clubbing, cyanosis, or edema Peripheral pulses: 2+ radial, 2+ carotid Neurologic: Alert and oriented, cranial nerves 2-12 are grossly intact Psych: Alert and oriented, normal affect, no evidence of distress Assessment/Plan Diagnoses and all orders for this visit: Tobacco abuse Comments: this patient is encouraged to quit smoking Chronic rhinitis Comments: secondary to smoke exposure Tongue lesion Comments: do not suspect malignancy in the area of her PET scan uptake. After review of her PET scan, the significant findings on PET scan are likely secondary to muscularmotion that continues throughout the time of the scan indicating metabolic activity in this region.I am very skeptical of any neoplastic process documented in this encounterCox [id number] Telephone encounter Note* Telephone Encounter - Raphael Jolley PA-C - 10/31/2024 11:03 AM EDT If you are feeling better, we should get you shceduled to come in for follow up, labs and treatmentnext week. Raphael Jolley PA-C [facility]08-[facility] Miscellaneous Notes* Telephone Encounter - Raphael Jolley PA-C - 10/31/2024 11:03 AM EDT If you are feeling better, we should get you shceduled to come in for follow up, labs and treatmentnext week. Raphael Jolley PA-C documented in this encounterSub[facility]08-18-20[facility] Telephone encounter Note * Telephone Encounter - Becky Olivares RN - 10/28/2024 1:53 PM EDT Becky @ [facility] notified and verbalizes understanding. Becky Olivares RN [facility] Work Phone: [phone] Miscellaneous Notes* Telephone Encounter - Becky Olivares RN - 10/28/2024 1:53 PM EDT Becky @ [facility] notified and verbalizes understanding. Becky Olivares RN * Telephone Encounter - Michael Britton MD - 10/28/2024 1:47 PM EDT Yeah - probably can skip - agree her life expectancy is likely less than 10 years. * Telephone Encounter - Becky Olivares RN - 10/23/2024 1:10 PM EDT Pt's GI asks if you would recommend she have a screening colonoscopy. States that normally if a patient has a life expectancy of 10 years or less they only scope if symptomatic. Your thoughts? Becky Olivares RN documented in this encounterSub[facility]08-[facility]-2025 Telephone encounter Note * Telephone Encounter - Michael Britton MD - 10/28/2024 1:47 PM EDT Yeah - probably can skip - agree her life expectancy is likely less than 10 years. [facility]08-13-2025 Telephone encounter Note* Telephone Encounter - Becky Olivares RN - 10/23/2024 1:10 PM EDT Pt's GI asks if you would recommend she have a screening colonoscopy. States that normally if a patient has a life expectancy of 10 years or less they only scope if symptomatic. Your thoughts? Becky Olivares RN [facility]08-07-2025 Telephone encounter Note* Telephone Encounter - Mila Briscoe RN - 10/17/2024 11:41 AM EDT Call placed to pt because she cancelled her appointments due to vomiting and she states her ulcer is acting up and that's what's causing her vomiting. Pt states she hasn't been feeling well for a fewdays now. Pt has tried both antiemetics with no relief. Pt states she does feel a little bit bettertoday but is still concerned about her ulcers. Pt states she saw a new GI doctor about a month ago and he was very rude to her and she'll never step foot in his office again. Pt states she found a different doctor in [place] that she is going to call and make an appointment with. Pt states she doesn't remember the doctors name but she'll look it up again and let us know so we can fax records to their office. Please advise Mila Briscoe RN [facility] Work Phone: [phone] Miscellaneous Notes* Telephone Encounter - Mila Briscoe RN - 10/17/2024 11:41 AM EDT Call placed to pt because she cancelled her appointments due to vomiting and she states her ulcer is acting up and that's what's causing her vomiting. Pt states she hasn't been feeling well for a fewdays now. Pt has tried both antiemetics with no relief. Pt states she does feel a little bit bettertoday but is still concerned about her ulcers. Pt states she saw a new GI doctor about a month ago and he was very rude to her and she'll never step foot in his office again. Pt states she found a different doctor in [place] that she is going to call and make an appointment with. Pt states she doesn't remember the doctors name but she'll look it up again and let us know so we can fax records to their office. Please advise Mila Briscoe RN * Telephone Encounter - Octavia Najera - 10/17/2024 11:37 AM EDT Patient called to say that she needs to cancel her visits today as she is vomiting. Please return her call at [phone] AKIL Singh documented in this encounterSub[facility] Hospital [facility]08-[facility] Telephone encounter Note * Telephone Encounter - Octavia Najera - 10/17/2024 11:37 AM EDT Patient called to say that she needs to cancel her visits today as she is vomiting. Please return her call at [phone] AKIL Singh [facility]07-17-2025 Evaluation note* Author Jeet LuMagruder Memorial HospitalAuthoredJuly 2024 [id number] female referred to the GI clinic for evaluation of abdominal pain. +intermittent epigastric pain for years. + history of gastric ulcers. She is currently on pantoprazole 40 mg twice daily without complete resolution of the pain. - Will arrange for EGD for evaluation of intraluminal etiologies of pain. -Will arrange for ultrasound of upper abdomen. -Will check LFTs and lipase and celiac panel - If previous workup is unremarkable we will arrange for gastric emptying study [facility] Work Phone: [phone]) 882-965707-09-2025 Telephone encounter Note* Telephone Encounter - Yudi Vega - 09/18/2024 2:05 PM EDT Called ENT office spoke with June. She states this referral is still in review with provider. She will check with their provider on status of this referral. Yudi Chapa [facility]07-09-2025 Miscellaneous Notes* Telephone Encounter - Yudi Vega - 09/18/2024 2:05 PM EDT Called ENT office spoke with June. She states this referral is still in review with provider. She will check with their provider on status of this referral. Yudi Chapa * Telephone Encounter - Yudi Vega - 09/11/2024 1:56 PM EDT Called ENT office. Their office has received this referral and have it out to their providers to review. Provider will then let their office staff know when to call patient to get scheduled. Yudi Chapa * Telephone Encounter - Jessika Valerio - 09/09/2024 8:29 AM EDT Records faxed to [facility]. * Telephone Encounter - Yudi Vega - 09/05/2024 10:05 AM EDT Racheal: Information ready for you. Yudi Chapa * Telephone Encounter - Dulce Osman - 09/05/2024 9:36 AM EDT Please refer to ENT [facility]. Dx Tongue Lesion. Please send pet ct images to their office. Racheal, Please fax recods and send images Ubaldo, Please follow pu on this appt,. documented in this encounterSuburban [facility]07-[facility] Telephone encounter Note * Telephone Encounter - Yudi Vega - 09/11/2024 1:56 PM EDT Called ENT office. Their office has received this referral and have it out to their providers to review. Provider will then let their office staff know when to call patient to get scheduled. Yudi Chapa [facility]07-01-2025 Telephone encounter Note* Telephone Encounter - Shyla Mayer APRN.CNP - 09/10/2024 4:06 PM EDT The following approved medication requests have been transmitted electronically. Requested Prescriptions Signed Prescriptions Disp Refills benzonatate (TESSALON PERLE) 100 mg capsule 90 capsule 0 Sig: take 1 capsule by mouth three times a day as needed for cough Authorizing Provider: SHYLA MAYER APRN.CNP [facility]07-01-2025 Miscellaneous Notes* Telephone Encounter - Shyla Mayer APRN.CNP - 09/10/2024 4:06 PM EDT The following approved medication requests have been transmitted electronically. Requested Prescriptions Signed Prescriptions Disp Refills benzonatate (TESSALON PERLE) 100 mg capsule 90 capsule 0 Sig: take 1 capsule by mouth three times a day as needed for cough Authorizing Provider: SHYLA MAYER APRN.CNP documented in this encounterSuburban [facility] Hospital [facility]07-[facility] Telephone encounter Note * Telephone Encounter - Shyla Mayer APRN.CNP - 09/10/2024 9:23 AM EDT The following approved medication requests have been transmitted electronically. Requested Prescriptions Signed Prescriptions Disp Refills prochlorperazine (COMPAZINE) 10 mg tablet 100 tablet 0 Sig: TAKE 1 TABLET BY MOUTH EVERY 6 HOURS NEEDED Authorizing Provider: SHYLA MAYER APRN.CNP [facility]07-01-2025 Miscellaneous Notes* Telephone Encounter - Shyla Mayer APRN.CNP - 09/10/2024 9:23 AM EDT The following approved medication requests have been transmitted electronically. Requested Prescriptions Signed Prescriptions Disp Refills prochlorperazine (COMPAZINE) 10 mg tablet 100 tablet 0 Sig: TAKE 1 TABLET BY MOUTH EVERY 6 HOURS NEEDED Authorizing Provider: SHYLA MAYER APRN.CNP documented in this encounterSub[facility]06-30-[facility] Telephone encounter Note * Telephone Encounter - Jessika Valerio - 09/09/2024 8:29 AM EDT Records faxed to [facility]. [facility]06-26-[facility] Telephone encounter Note* Telephone Encounter - Yudi Vega - 09/05/2024 10:05 AM EDT Racheal: Information ready for you. Yudi Chapa [facility]06-26-2025 [facility] History of Present illness Narrative* Sally Blanco RN - 09/05/2024 9:55 AM EDT Patient has reported urinary frequency, orders received per Dr Britton and patient had submitted urine sample to medical assistants who will process accordingly. Sally Blanco RN documented in this encounterSuburban Community Hospital [facility]06-[facility] Telephone encounter Note * Telephone Encounter - Mago Osmanlupe Byrnes - 09/05/2024 9:36 AM EDT Please refer to ENT Makenzie. Dx Tongue Lesion. Please send pet ct images to their office. Racheal, Please fax recods and send images Ubaldo, Please follow pu on this appt,. 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 We will perform a urinalysis today to check fora possible urinary tract infection. If the results are suspicious, the sample will be sent for a culture. 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 - You are currently receiving pembrolizumab (Keytruda) every 6 weeks. Your next dose is scheduled in 6 weeks, and labs will be drawn at that time. - Your recent PET scan (August 27) showed no distant metastases or concerning lymph node activity. The changes in your right upper lobe are likely related to prior treatment. However, there was intense activity noted on the right side of your tongue. We discussed your tongue symptoms: - You reported that the left side of your tongue feels unusual, though the PET scan showed activityon the right side. Upon examination, no abnormalities were seen or felt. - You mentioned eating a lot of vinegar-containing foods, which may contribute to irritation. - I recommend you see an ear, nose, and throat (ENT) specialist for further evaluation. A referral has been placed. We discussed your immune-mediated colitis: - You previously experienced diarrhea related to immune-mediated colitis, which resolved after restarting prednisone 10 mg daily. Continue taking prednisone as prescribed. We discussed your skin concerns: - You have very thin skin with frequent scrapes and bruising, likely due to aging, prior treatments, and sun exposure. No specific treatment is needed at this time, but please protect your skin from further injury. Follow-up plan: - Continue receiving Keytruda every 6 weeks, with labs drawn at each visit. - Complete the urinalysis today. If you develop symptoms of a urinary tract infection, such as burning with urination, fever, or worsening frequency, please call our office. - Schedule an appointment with the ENT specialist for further evaluation of your tongue. - We will see you back in 6 weeks for your next Keytruda treatment. If you have any concerns beforethen, please call our office. documented in this encounterSuburban Community Hospital [facility]06-[facility] History of Present illness Narrative* Michael Britton MD - 09/05/2024 9:00 AM EDT Images from the original note were not included. NAME: Debby Hermosillo [facility] NO.: [id number] DATE OF SERVICE: September 05, 2024 (Reba) Some elements in this clinic note that are critical to medical decision making have been carefully reviewed and included from a prior clinic note dated: August 09, 2024 ([place]) Referring Provider: Otoniel Adhikari MD Additional Clinicians involved in Debby [...] 360 08/2022: MICHAEL splice site SNV, JAYLIN CASE SUMMARY / ASSESSMENT: 59 year old female here for follow up. [...] when she had small cell lung cancer. 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 Both AE's have responded nicely to prednisone and will taper further to 10 mg daily before restarting I/O Plan was to keep her on prednisone 10 mg and resume treatment. Patient elected to abruptly stop theprednisone. Within a short time of stopping the prednisone she began having diarrhea stools. Prednisone was resumed at 10 mg daily. 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 Urinary frequency (R35.0) Increased urinary frequency noted, particularly in the mornings. - Ordered urinalysis with reflex to culture if indicated to rule out urinary tract infection; sample to be collected in the chemo suite. 2. 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 Recent PET scan showed changes in the right upper lobe likely related to post-treatment effects. - Continue monitoring with regular PET scans. 3. 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) (C71.1) Secondary malignant neoplasm of brain (HCC) (C79.31) Frontal brain lesion treated with Gamma Knife on February 19, 2024. Previous prophylactic cranial irradiation due to small cell lung cancer. - Continue monitoring for any neurological symptoms or changes. 4. 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 5. Malignant neoplasm of unspecified part of unspecified bronchus or lung (HCC) (C34.90) 6. Colitis, acute (K52.9) Immune-mediated colitis previously managed with prednisone 10 mg daily. Diarrhea has resolved. - Continue prednisone 10 mg daily. 7. Acute hepatitis (B17.9) 8. Tongue lesion (K14.8) Intense activity involving the right side of the tongue noted on PET scan. No visible lesions on physical examination. Patient reports a funny feeling on the left side of the tongue. - Referred to ENT for further evaluation. 9. Malignant neoplasm of upper lobe, right bronchus or lung (HCC) (C34.11) Post-treatment changes noted in the right upper lobe on recent PET scan. 10. Malignant neoplasm of upper lobe, left bronchus or lung (HCC) (C34.12) Enlarging mass in the left upper lobe noted in June 2022, positive for adenocarcinoma with KRAS A146 mutation and PD-L1 score of 100%. - Continue pembrolizumab (Keytruda) every 6 weeks. 11. Malignant neoplasm of lower lobe, right bronchus or lung (HCC) (C34.31) Lesion in the right lower lobe positive for adenocarcinoma. 12. Malignant neoplasm of overlapping sites of unspecified bronchus and lung (HCC) (C34.80) 13. Thinning of skin (R23.4) Multiple ecchymoses and thin skin observed on both arms, likely due to treatment and sun exposure. - Advised gentle skin care and protection from trauma. 14. Encounter for antineoplastic chemotherapy (Z51.11) Currently receiving pembrolizumab (Keytruda) every 6 weeks. - Continue scheduled chemotherapy. - Routine labs every 6 weeks with Keytruda administration. - Follow-up in 6 weeks. 15. Personal history of tobacco use (Z87.891) History of tobacco use contributing to skin changes. 16. Personal history of other malignant neoplasm of bronchus and lung (Z85.118) History of multiple types of lung cancer, including small cell, squamous cell, and adenocarcinoma. HPI: CASE HISTORY: Reverse Chronological Order 08/27/2024 - PET/CT: PRIMARY DISEASE SITE: * Right upper lobe peribronchiolar nodular opacity with air bronchograms and associated low-level metabolic activity is not substantially changed, presumed posttreatment relateduptake. JUAN ANTONIO DISEASE: * No metabolically active regional lymphadenopathy. METASTATIC DISEASE: * No metabolically active distant metastases. ADDITIONAL FINDINGS: * Persistent, intense metabolic activity localizing to the right aspect of thetongue . Although this is nonspecific and may be physiologic, correlation with direct visualizationis recommended to evaluate for an underlying lesion 06/20/2024 - ?? Immune mediated colitis - Start Prednisone 40 mg and taper weekly 06/18/2024 - CT Abdomen: at [facility] ER for elevated LFTs Intra and extrahepatic biliary dilation, probably related to cholecystectomy 04/30/2024 - PET/CT: Since 01/12/2024, no evidence of FDG avid disease. Posttreatment changes in the right lung. 02/19/2024 - GKS right frontal lesion 01/26/2024 - MRI Brain: Interval development of a 0.8 x 0.7 [...] musculature surrounding the right ischium, likely strain ortrauma. 09/28/2023 - CT CAP: Chest: Stable appearance [...] undergo continued close imaging surveillance. No significant thoracicadenopathy. A/P: No evidence of metastatic disease in [...] to posttherapy changes and healing. Attention on follow-upCT scan of the chest. Stable posttreatment changes [...] A - TRANSBRONCHIAL FINE-NEEDLE ASPIRATION - LINGULA NODULE: - Positive for malignant cells. - Adenocarcinoma. B - EBUS TRANSBRONCHIAL FINE NEEDLE ASPIRATE, LYMPH NODE - 4L: - Positive for malignant cells. - Adenocarcinoma. [...] for neoplasm. No hypermetabolic lymphadenopathy. Abdomen and Pelvis: No evidence of FDG avid neoplastic process [...] and reticular opacities, likely on the basis ofposttreatment change. No evidence of bulky intrathoracic lymphadenopathy. 07/18/2019 - PET/CT: NECK: NO FDG AVID NEOPLASTIC PROCESS.. CHEST: NO FDG AVID NEOPLASTIC PROCESS. 1.4 X 0.9 CM HYPOMETABOLIC RIGHT UPPER LOBE NODULE WITH ADJACENT PARENCHYMAL SCARRING LATERALLY, IMPROVED SINCE 01/09/2019. FINDINGS ARE COMPATIBLE WITH SATISFACTORY RESPONSE OF TREATED RIGHT UPPER LOBE NODULE POST CHEMORADIATION. 0.6 CM AND 0.4 CM FAINT RIGHTMIDDLE LOBE GROUNDGLASS ATTENUATION DENSITIES, STABLE SINCE 09/12/2017. ABDOMEN/PELVIS: NO FDG AVID NEOPLASTIC PROCESS. EXTREMITIES/SKELETON: NO SUSPICIOUS FDG AVID OSSEOUS LESION. 04/09/2018 - Discontinued Imfinzi per Dr. Beaver due to pancreatitis 01/16/2018-01/29/2018 - PCI whole brain 2500 cGy in [address] Carrero 03/24/2017-07/12/2017 - Concurrent carboplatin and etoposide (5 cycles) 03/24/2017-05/17/2017 - Concurrent radiation HPI: Updated Visit, September 05, 2024: Returns alone today. 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 She underwent chemotherapy and radiation therapy to the right upper lobe. In June 2022, imaging revealed an enlarging mass in the left upper lobe, as well as lingular and right lower lobe lesions. Biopsies confirmed adenocarcinoma in the lingula, 4L, and right lower lobe,with KRAS A146 mutation and a PD-L1 score of 100%. A PET scan indicated stage IV disease, though a brain MRI was negative. She began pembrolizumab in December 2022. In January 2024, a frontal brain lesion was detected, and she underwent Gamma Knife radiosurgery on February 19, 2024. Prior to this, she had received prophylactic cranial irradiation due to small cell lung cancer. Recent PET scan on August 27 showed changes in the right upper lobe likely related to prior treatment, with no evidence of juan antonio involvement or distant metastases. However, there was intense activityinvolving the right side of the tongue. Patient reports polyuria in the mornings, urinating every 10 minutes after consuming three cups of coffee, which resolves by noon. She denies symptoms of a UTI but will undergo a urinalysis with culture if indicated. She also notes a funny sensation on the left side of her tongue and frequent manipulation of the area, possibly related to recent increased consumption of vinegar-containing foods. She expresses anxiety about seeing a dentist and prefers a referral to an ENT specialist. She reports that her diarrhea has resolved after restarting prednisone 10 mg daily. She is currently on Synthroid and Protonix. She also notes thin skin with ecchymoses and easy bruising on her arms,which she attributes to treatment and sun exposure. Ears/Nose/Mouth/Throat: (+) left tongue paresthesia, (-) tongue pain Gastrointestinal: (-) diarrhea Genitourinary: (+) urinary frequency Skin: (+) easy skin tearing Psychiatric: (+) situational anxiety about dental visits Updated Visit, August 09, 2024: Debby Hermosillo returns for scheduled follow-up. At her last visit prednisone 20 mg was resumed due to recurrent diarrhea. Today, she states that the diarrhea has resolved. She denies any blood in her stools. She has occasional nausea without vomiting. She complains of an upset stomach. She remains on Protonix 40 mg twice daily. She has not been taking the Carafate. She is eating and drinking well. She states that since resuming the prednisone her appetite has increased. She has gained weight. Patient had collected a stool sample and brought to office for testing as recommended. She states that her was told they would not be able to process without a clear reason as to why. Last pembrolizumab was on 05/02/2024. Updated Visit, July 25, 2024: Debby Hermosillo returns for scheduled follow-up. 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 1 week ago, the patient elected to stop the prednisone. Recommendation was to decrease prednisone to 10 mg daily, in order to possibly resume treatment. Shortly after stopping the prednisone, the patient developed recurrent severe diarrhea. This morning she had 5 diarrheal stools.She denies any blood in her stools. She states that her stools are dark pineda in color. The diarrheahas been ongoing for the last 2 days. She is not eating well. She states she is drinking plenty of fluids. She denies nausea and vomiting. She has an upset stomach. She has been taking [id number] Pepto-Bismol pills. She resumed prednisone 20 mg this morning. She denies any fevers or chills. She has had no recent antibiotic use. She denies any skin rashes. She has a chronic cough which is unchanged. Updated Visit, July 04, 2024: Debby returns for a follow up. She endorses improvement in diarrhea with prednisone - will taper to 10mg. She may need to increase to 20mg if diarrhea returns. Will continue holding Keytruda and reconsider in 3 weeks. Liver enzymes have improved. Updated Visit, June 20, 2024: Debby returns for a follow up. On 06/18/2024, she was sent to the ER at [facility] by another physician for liver workup. CT revealed intra and extrahepatic biliary dilation, probably related to cholecystectomy. She endorses bowel incontinence and diarrhea. Will hold C9 today and start prednisone. Also sent rx for Synthroid as TSH is 9.060 due to Keytruda. Updated Visit, June 13, 2024: Debby returns today. She denies new rashes, shortness of breath, and diarrhea. She was seen in the ER about 1 week ago for pain due to ulcers and a hernia. She does endorse vision changes since [facility]. She has not yet followed up with neurosurgery. LFTs are elevated today - will hold C9 Keytruda today and repeat CMP in 1 week to monitor. She has not started any new medications, including Tylenol,and she does not drink alcohol. Updated Visit, May 02, 2024: Debby returns [...] her right frontal lesion. She is finishing asteroid taper per NS team. She has not [...] mg BID. She is scheduled to see [facility] team 02/14. She has had multiple falls and her family finds her laying on the floor and she doesn't remember how she got there. She also was driving her son to work and got lost and didn't know how to get home. She did have some diarrhea for 2-3 weeks liquid stools4-5 times a day. It went away on its own. She is eating and drinking okay. She does have some vision changes. She is no longer driving. No pain. Updated Visit, January 12, 2024: Debby returns for a follow up. She has her MRI of the brain scheduled for 01/14. Final reading oftoday's PET/CT are in process - on my initial view, I do not see any cause for concern. For the past 1.5 months, she has not had the strength to get back up after bending over. She endorses difficulty driving in the dark - recommended she follow up with her supervisor [employer]. Updated Visit, December 27, 2023: Debby returns for a follow up. She reports about 3 weeks ago, her found her asleep on thefloor but she does not remember how she got there. Her elbows had wounds indicative of a fall - healed now. She complains of buttock pain, similar to a pain she had in the past. I will order a PET/CTand MRI of the brain to evaluate her [...] wait to correct with next lab test. Mother had thyroid cancer More tired than usual - especially in afternoon. October 03, 2023: Debby Hermosillo is a 58 year old year old female here for follow up. She is doing well and denies any rash, diarrhea and or SOB and or cough. She has had loss of appetite. REVIEW OF SYSTEMS Per HPI and otherwise negative by full review of organ systems. Ears/Nose/Mouth/Throat: (+) left tongue paresthesia, (-) tongue pain Gastrointestinal: (-) diarrhea Genitourinary: (+) urinary frequency Skin: (+) easy skin tearing Psychiatric: (+) situational anxiety about dental visits ECOG PERFORMANCE STATUS: 1 PHYSICAL EXAMINATION: Vitals: BP 151/83 Pulse 106 Temp (Src) 97.6 (Temporal) Resp 16 Wt 86 lb 10.3 oz (39.3kg) SpO2 98% Body surface area is 1.29 meters squared. Exam limited to gross visualization [...] Take 1 tablet by mouth once daily. famotidine (PEPCID) 20 mg tablet Take 1 tablet by mouth once daily. pantoprazole DR (PROTONIX) 40 mg tablet Take 1 tablet by mouth two times a day. prochlorperazine (COMPAZINE) 10 mg tablet TAKE 1 TABLET BY MOUTH EVERY 6 HOURS NEEDED benzonatate (TESSALON PERLE) 100 mg capsule TAKE 1 CAPSULE BY MOUTH THREE TIMES A DAY NEEDED FORCOUGH pembrolizumab (KEYTRUDA) 25 mg/mL injection Inject 168 mg intravenously every 6 weeks. SYNTHROID 25 mcg tablet TAKE 1 TABLET BY MOUTH EVERY DAY sucralfate (CARAFATE) 1 gram tablet TAKE 1 TABLET BY MOUTH FOUR TIMES A DAY ondansetron (ZOFRAN) 8 mg tablet Take 1 tablet by mouth every 8 hours as needed for nausea/vomiting. KLOR-CON M20 20 mEq tablet TAKE 1 TABLET BY MOUTH EVERY DAY folic acid 1 mg tablet take 1 tablet by mouth every day buprenorphine-naloxone (SUBOXONE) 8-2 mg film Dissolve under the tongue once daily. aspirin, enteric coated (ASPIRIN, ENTERIC COATED) 81 mg EC tablet Take 81 mg by mouth once daily. NURTEC ODT 75 mg disintegrating tablet DISSOLVE 1 TABLET ON THE TONGUE ONCE A DAY AT ONSET OF MIGRAINE ACETAMINOPHEN (TYLENOL ORAL) Take by mouth. SUBOXONE 8-2 mg film Dissolve 1 Film under the tongue twice daily for 1 day. Do not start before November 23, 2022. atorvastatin (LIPITOR) 40 mg tablet Take 40 mg by mouth once daily. LABORATORY VALUES: WBC (k/uL) Date Value 09/05/2024 11.58 (H) RBC (m/uL) Date Value 09/05/2024 3.78 (L) Hemoglobin (g/dL) Date Value 09/05/2024 11.9 Hematocrit (%) Date Value 09/05/2024 37.4 MCV (fL) Date Value 09/05/2024 98.9 MCH (pg) Date Value 09/05/2024 31.5 MCHC (g/dL) Date Value 09/05/2024 31.8 RDW-CV (%) Date Value 09/05/2024 14.9 Platelet Count (k/uL) Date Value 09/05/2024 326 MPV (fL) Date Value 09/05/2024 9.3 Glucose (mg/dL) Date Value 09/05/2024 98 BUN (mg/dL) Date Value 09/05/2024 20 Creatinine (mg/dL) Date Value 09/05/2024 0.80 Sodium (mmol/L) Date Value 09/05/2024 140 Potassium (mmol/L) Date Value 09/05/2024 3.7 Chloride (mmol/L) Date Value 09/05/2024 98 CO2 (mmol/L) Date Value 09/05/2024 30 Protein, Total (g/dL) Date Value 09/05/2024 6.8 Albumin (g/dL) Date Value 09/05/2024 4.2 Calcium, Total (mg/dL) Date Value 09/05/2024 9.8 Alkaline Phosphatase (U/L) Date Value 09/05/2024 293 (H) Bilirubin, Total (mg/dL) Date Value 09/05/2024 0.2 AST (U/L) Date Value 09/05/2024 12 (L) ALT (U/L) Date Value 09/05/2024 17 DIAGNOSIS: (R35.0) Urinary frequency (primary encounter diagnosis) Plan: URINALYSIS (WITH MICROSCOPIC) WITH CULTURE IF INDICATED (C34.00) Malignant neoplasm of hilus of lung, unspecified laterality (HCC) (C71.1) 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) (C34.90, C79.51) 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) (C34.90) Malignant neoplasm of unspecified part of unspecified bronchus or lung (HCC) (K52.9) Colitis, acute (B17.9) Acute hepatitis (K14.8) Tongue lesion Plan: CONSULT TO ENT (C34.11) Malignant neoplasm of upper lobe, right bronchus or lung (HCC) (C34.12) Malignant neoplasm of upper lobe, left bronchus or lung (HCC) (C34.31) Malignant neoplasm of lower lobe, right bronchus or lung (HCC) (C34.80) Malignant neoplasm of overlapping sites of unspecified bronchus and lung (HCC) (C79.31) Secondary malignant neoplasm of brain (HCC) (R23.4) Thinning of skin (Z51.11) Encounter for antineoplastic chemotherapy (Z87.891) Personal history of tobacco use (Z85.118) Personal history of other malignant neoplasm of bronchus and lung PAST MEDICAL HISTORY Diagnosis Date Acute, but ill-defined, cerebrovascular disease 10/2021 Adenocarcinoma of left lung (HCC) 08/10/2022 4L and Lingula Arthritis Asthma (HCC) Back pain chronic Carpal tunnel syndrome, bilateral s/p repair - 2016 Current smoker DDD (degenerative disc disease), lumbar GERD (gastroesophageal reflux disease) Kidney stones Malignant neoplasm of lower lobe of right lung (HCC) 11/15/2022 Neck pain Neuropathy unclear origin- 6 months? saw neurologist (Dr. Hearn- In [facility]); possible MS? Osteoporosis Pneumonia 06/2016 & [...] of 40 minutes on the date of service which included preparing to see the patient, [id number] patient care, completing clinical documentation, obtaining and/or reviewing separately obtained history, performing a medically appropriate examination, counseling and educating the patient/family/caregiver, ordering medications, tests, or procedures, independently interpreting results (not separately reported), communicating results to the patient/family/caregiver, and care coordination (not separately reported). Michael Britton MD, CPE Hematology and Oncology Services Provided at: [place], [place] CC: Milton Madison MD documented in this encounterSub[facility]25 NoteKeenan [facility]06-17-2025 History of Present illness Narrative* Yue Alcocer RN - 08/27/2024 1:30 PM EDT Radiology Service Progress Note DATE OF SERVICE: August 27, 2024 TIME: 1:29 PM PATIENT WEIGHT: 84LBS PATIENT IDENTITY VERIFICATION COMPLETED USING TWO (2) STANDARD IDENTIFIERS: Name and Date of confirmed by patient verbally. FALL SCREENING: Has the patient had 2 falls in the last year or 1 fall with injury or currently using an Ambulatory Assistive Device (Walker, Cane, Wheelchair, Crutches, etc.)? No PATIENT GENDER DATA: Assigned female at . status: : No status:NO. ALLERGIES: Reviewed and unchanged CONTRAST ALLERGY: No EXAM: CT -CONTRAST INDUCED NEPHROPATHY RISK FACTORS: Not applicable CREATININE: Creatinine Date Value Ref Range Status 08/09/2024 0.77 0.58 - 0.96 mg/dL Final 07/25/2024 0.57 (L) 0.58 - 0.96 mg/dL Final 07/04/2024 0.63 0.58 - 0.96 mg/dL Final Estimated Glomerular Filtration Rate Date Value Ref Range Status 08/09/2024 88 >=60 mL/min/1.73m Final Comment: Estimated Glomerular [...] RESULTS: POC done: Yes, See Lab Tab August 27, 2024 TREATMENT: N/A IV SITE: Ambulatory: A peripheral IV was started in the Left antecubital site with a Angio cath: 22gauge. IV SITE APPEARANCE: Clean,Dry and Intact SIGNATURE: Yue Alcocer RN PATIENT NAME: Debby Hermosillo DATE: August 27, 2024 TIME: 1:29 PM * Becky Ledezma RT(R) - 08/27/2024 1:30 PM EDT RADIOLOGY SERVICE PROGRESS NOTE SERVICE DATE: 08/27/2024 SERVICE TIME: 2:29 PM PATIENT IDENTITY VERIFICATION COMPLETED USING TWO (2) STANDARD IDENTIFIERS: Name and Date of confirmed by patient verbally POST EXAM PIV STATUS: Discontinued PROCEDURE TYPE: NM INJECT: PET/CT BODY SCAN. 7.0 mCi F18 FDG. Administered By: . No other medications given.. ADMINISTRATION TIME: 1333 PATIENT DISCHARGED TO: Ambulatory patient, left AL department area. Is this a therapy: No A Diagnostic radioactive procedure has taken place, with no further precautions necessary other than routine body substance precautions. More information regarding radiation safety can be found usingthis link: [email or web address] SIGNATURE: RT Bhavana(R) PATIENT NAME: Debby Hermosillo DATE: August 27, 2024 TIME: 2:29 PM PAGER/CONTACT #: documented in this encounterSub[facility]06-17-2025 NoteKeenan [facility]06-17-2025 NoteKeen[facility]06-06-2025 Telephone encounter Note* Telephone Encounter - Angella Malloy RN - 08/16/2024 7:53 AM EDT Alis: I pended her previous Pepcid and Protonix RX's. I didn't see where she was ever prescribed Omeprazole. Please review and sign if agreeable. Angella Malloy RN [facility]06-06-2025 Miscellaneous Notes* Telephone Encounter - Angella Malloy RN - 08/16/2024 7:53 AM EDT Alis: I pended her previous Pepcid and Protonix RX's. I didn't see where she was ever prescribed Omeprazole. Please review and sign if agreeable. Angella Malloy RN documented in this encounterSub[facility]06-02-2025 Telephone encounter Note * Telephone Encounter - Shyla Mayer APRN.CNP - 08/12/2024 1:58 PM EDT The following approved medication requests have been transmitted electronically. Requested Prescriptions Signed Prescriptions Disp Refills prochlorperazine (COMPAZINE) 10 mg tablet 100 tablet 0 Sig: TAKE 1 TABLET BY MOUTH EVERY 6 HOURS NEEDED Authorizing Provider: SHYLA MAYER APRN.CNP [facility]06-02-2025 Miscellaneous Notes* Telephone Encounter - Shyla Mayer APRN.CNP - 08/12/2024 1:58 PM EDT The following approved medication requests have been transmitted electronically. Requested Prescriptions Signed Prescriptions Disp Refills prochlorperazine (COMPAZINE) 10 mg tablet 100 tablet 0 Sig: TAKE 1 TABLET BY MOUTH EVERY 6 HOURS NEEDED Authorizing Provider: SHYLA MAYER APRN.CNP documented in this encounterSuburban Community Hospital & [facility]05-30-2025 NoteKeenan [facility]05-30-2025 History of Present illness Narrative* Shyla Mayer APRN.CNP - 08/09/2024 8:54 AM EDT Images from the original note were not included. NAME: Debby Hermosillo [facility] NO.: [id number] DATE OF SERVICE: August 09, 2024 ([place]) Some elements in this clinic note that are critical to medical decision making have been carefully reviewed and included from a prior clinic note dated: July 25, 2024 ([place]) Referring Provider: Otoniel Adhikari MD Additional Clinicians involved in Debby [...] 08/2022: MICHAEL splice site SNV, JAYLIN ASSESSMENT: 59 year old female here for follow up. [...] when she had small cell lung cancer. 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 Both AE's have responded nicely to prednisone and will taper further to 10 mg daily before restarting I/O Plan was to keep her on prednisone 10 mg and resume treatment. Patient elected to abruptly stop theprednisone. Within a short time of stopping the prednisone she began having diarrhea stools. Prednisone was resumed at 10 mg daily. PLAN: Continue to hold Keytruda due to possible immune mediated colitis Diarrhea resolved after resuming prednisone 20 mg daily. At this time she will decrease the prednisone to 10 mg daily and attempt to consider resuming Keytruda at her next visit Ordered stool for C. difficile and cultures (Specimen brought in by patient - Lab was unable to process ??) Prior to her next follow-up we will arrange for a PET scan Continue Synthroid 25 mcg daily Continue Protonix 40 mg twice daily Encouraged she resume the Carafate RTC after PET scan complete Labs same day HPI: CASE HISTORY: Reverse Chronological Order 06/20/2024 - ?? Immune mediated colitis - Start Prednisone 40 mg and taper weekly 06/18/2024 - CT Abdomen: at [facility] ER for elevated LFTs Intra and extrahepatic biliary dilation, probably related to cholecystectomy 04/30/2024 - PET/CT: Since 01/12/2024, no evidence of FDG avid disease. Posttreatment changes in the right lung. 02/19/2024 - GKS right frontal lesion 01/26/2024 - MRI Brain: Interval development of a 0.8 x 0.7 [...] musculature surrounding the right ischium, likely strain ortrauma. 09/28/2023 - CT CAP: Chest: Stable appearance [...] undergo continued close imaging surveillance. No significant thoracicadenopathy. A/P: No evidence of metastatic disease in [...] to posttherapy changes and healing. Attention on follow-upCT scan of the chest. Stable posttreatment changes [...] A - TRANSBRONCHIAL FINE-NEEDLE ASPIRATION - LINGULA NODULE: - Positive for malignant cells. - Adenocarcinoma. B - EBUS TRANSBRONCHIAL FINE NEEDLE ASPIRATE, LYMPH NODE - 4L: - Positive for malignant cells. - Adenocarcinoma. [...] for neoplasm. No hypermetabolic lymphadenopathy. Abdomen and Pelvis: No evidence of FDG avid neoplastic process [...] and reticular opacities, likely on the basis ofposttreatment change. No evidence of bulky intrathoracic lymphadenopathy. 07/18/2019 - PET/CT: NECK: NO FDG AVID NEOPLASTIC PROCESS.. CHEST: NO FDG AVID NEOPLASTIC PROCESS. 1.4 X 0.9 CM HYPOMETABOLIC RIGHT UPPER LOBE NODULE WITH ADJACENT PARENCHYMAL SCARRING LATERALLY, IMPROVED SINCE 01/09/2019. FINDINGS ARE COMPATIBLE WITH SATISFACTORY RESPONSE OF TREATED RIGHT UPPER LOBE NODULE POST CHEMORADIATION. 0.6 CM AND 0.4 CM FAINT RIGHTMIDDLE LOBE GROUNDGLASS ATTENUATION DENSITIES, STABLE SINCE 09/12/2017. ABDOMEN/PELVIS: NO FDG AVID NEOPLASTIC PROCESS. EXTREMITIES/SKELETON: NO SUSPICIOUS FDG AVID OSSEOUS LESION. 04/09/2018 - Discontinued Imfinzi per Dr. Beaver due to pancreatitis 01/16/2018-01/29/2018 - PCI whole brain 2500 cGy in [address] Carrero 03/24/2017-07/12/2017 - Concurrent carboplatin and etoposide (5 cycles) 03/24/2017-05/17/2017 - Concurrent radiation Updated Visit, August 09, 2024: Debby Hermosillo returns for scheduled follow-up. At her last visit prednisone 20 mg was resumed due to recurrent diarrhea. Today, she states that the diarrhea has resolved. She denies any blood in her stools. She has occasional nausea without vomiting. She complains of an upset stomach. She remains on Protonix 40 mg twice daily. She has not been taking the Carafate. She is eating and drinking well. She states that since resuming the prednisone her appetite has increased. She has gained weight. Patient had collected a stool sample and brought to office for testing as recommended. She states that her was told they would not be able to process without a clear reason as to why. Last pembrolizumab was on 05/02/2024. Updated Visit, July 25, 2024: Debby Hermosillo returns for scheduled follow-up. 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 1 week ago, the patient elected to stop the prednisone. Recommendation was to decrease prednisone to 10 mg daily, in order to possibly resume treatment. Shortly after stopping the prednisone, the patient developed recurrent severe diarrhea. This morning she had 5 diarrheal stools.She denies any blood in her stools. She states that her stools are dark pineda in color. The diarrheahas been ongoing for the last 2 days. She is not eating well. She states she is drinking plenty of fluids. She denies nausea and vomiting. She has an upset stomach. She has been taking [id number] Pepto-Bismol pills. She resumed prednisone 20 mg this morning. She denies any fevers or chills. She has had no recent antibiotic use. She denies any skin rashes. She has a chronic cough which is unchanged. Updated Visit, July 04, 2024: Debby returns for a follow up. She endorses improvement in diarrhea with prednisone - will taper to 10mg. She may need to increase to 20mg if diarrhea returns. Will continue holding Keytruda and reconsider in 3 weeks. Liver enzymes have improved. Updated Visit, June 20, 2024: Debby returns for a follow up. On 06/18/2024, she was sent to the ER at [facility] by another physician for liver workup. CT revealed intra and extrahepatic biliary dilation, probably related to cholecystectomy. She endorses bowel incontinence and diarrhea. Will hold C9 today and start prednisone. Also sent rx for Synthroid as TSH is 9.060 due to Keytruda. Updated Visit, June 13, 2024: Debby returns today. She denies new rashes, shortness of breath, and diarrhea. She was seen in the ER about 1 week ago for pain due to ulcers and a hernia. She does endorse vision changes since GKRS. She has not yet followed up with neurosurgery. LFTs are elevated today - will hold C9 Keytruda today and repeat CMP in 1 week to monitor. She has not started any new medications, including Tylenol,and she does not drink alcohol. Updated Visit, May 02, 2024: Debby returns [...] her right frontal lesion. She is finishing asteroid taper per NS team. She has not [...] mg BID. She is scheduled to see [facility] team 02/14. She has had multiple falls and her family finds her laying on the floor and she doesn't remember how she got there. She also was driving her son to work and got lost and didn't know how to get home. She did have some diarrhea for 2-3 weeks liquid stools4-5 times a day. It went away on its own. She is eating and drinking okay. She does have some vision changes. She is no longer driving. No pain. Updated Visit, January 12, 2024: Debby returns for a follow up. She has her MRI of the brain scheduled for 01/14. Final reading oftoday's PET/CT are in process - on my initial view, I do not see any cause for concern. For the past 1.5 months, she has not had the strength to get back up after bending over. She endorses difficulty driving in the dark - recommended she follow up with her supervisor white sugar. Updated Visit, December 27, 2023: Debby returns for a follow up. She reports about 3 weeks ago, her found her asleep on thefloor but she does not remember how she got there. Her elbows had wounds indicative of a fall - healed now. She complains of buttock pain, similar to a pain she had in the past. I will order a PET/CTand MRI of the brain to evaluate her [...] wait to correct with next lab test. Mother had thyroid cancer More tired than usual [...] ECOG PERFORMANCE STATUS: 1 PHYSICAL EXAMINATION: Vitals: There were no vitals taken for this visit. There is no height or weight on file to calculate BSA. Exam limited to gross visualization where appropriate. [...] MEDICATIONS: benzonatate (TESSALON PERLE) 100 mg capsule TAKE 1 CAPSULE BY MOUTH THREE TIMES A DAY NEEDED FORCOUGH pembrolizumab (KEYTRUDA) 25 mg/mL injection Inject 168 mg intravenously every 6 weeks. prochlorperazine (COMPAZINE) 10 mg tablet TAKE 1 TABLET BY MOUTH EVERY 6 HOURS NEEDED SYNTHROID 25 mcg tablet TAKE 1 TABLET BY MOUTH EVERY DAY pantoprazole DR (PROTONIX) 40 mg tablet Take 1 tablet by mouth two times a day. sucralfate (CARAFATE) 1 gram tablet TAKE 1 TABLET BY MOUTH FOUR TIMES A DAY ondansetron (ZOFRAN) 8 mg tablet Take 1 tablet by mouth every 8 hours as needed for nausea/vomiting. famotidine (PEPCID) 20 mg tablet Take 1 tablet by mouth once daily. furosemide (LASIX) 20 mg tablet TAKE 1 TABLET BY MOUTH EVERY DAY KLOR-CON M20 20 mEq tablet TAKE 1 TABLET BY MOUTH EVERY DAY folic acid 1 mg tablet take 1 tablet by mouth every day buprenorphine-naloxone (SUBOXONE) 8-2 mg film Dissolve under the tongue once daily. SUBOXONE 8-2 mg film Dissolve [...] mouth. LABORATORY VALUES: WBC (k/uL) Date Value 08/09/2024 15.39 (H) RBC (m/uL) Date Value 08/09/2024 3.40 (L) Hemoglobin (g/dL) Date Value 08/09/2024 10.7 (L) Hematocrit (%) Date Value 08/09/2024 33.9 (L) MCV (fL) Date Value 08/09/2024 99.7 MCH (pg) Date Value 08/09/2024 31.5 MCHC (g/dL) Date Value 08/09/2024 31.6 RDW-CV (%) Date Value 08/09/2024 15.5 (H) Platelet Count (k/uL) Date Value 08/09/2024 232 MPV (fL) Date Value 08/09/2024 9.6 Glucose (mg/dL) Date Value 08/09/2024 121 (H) BUN (mg/dL) Date Value 08/09/2024 19 Creatinine (mg/dL) Date Value 08/09/2024 0.77 Sodium (mmol/L) Date Value 08/09/2024 133 (L) Potassium (mmol/L) Date Value 08/09/2024 5.0 Chloride (mmol/L) Date Value 08/09/2024 97 (L) CO2 (mmol/L) Date Value 08/09/2024 27 Protein, Total (g/dL) Date Value 08/09/2024 6.6 Albumin (g/dL) Date Value 08/09/2024 4.1 Calcium, Total (mg/dL) Date Value 08/09/2024 9.4 Alkaline Phosphatase (U/L) Date Value 08/09/2024 413 (H) Bilirubin, Total (mg/dL) Date Value 08/09/2024 0.3 AST (U/L) Date Value 08/09/2024 58 (H) ALT (U/L) Date Value 08/09/2024 43 (H) DIAGNOSIS: (C34.00) Malignant neoplasm of hilus of lung, unspecified laterality (HCC) (primary encounter diagnosis) (K52.9) Colitis, acute (C34.90, C79.51) 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 saw neurologist (Dr. Hearn- In [facility]); possible MS? Osteoporosis Pneumonia 06/2016 & [...] which included preparing to see the patient, [id number] patient care, completing clinical documentation, obtaining and/or reviewing separately obtained history, performing a medically appropriate examination, counseling and educating the pat ient/family/caregiver, ordering medications, tests, or procedures, independently interpreting results (not separately reported), and communicating results to the patient/family/caregiver. Shyla Mayer APRN.MULTIGRAPH OPERATOR Hematology and Oncology Services Provided at: [place], [place] CC: Milton Madison MD documented [facility] Telephone encounter Note * Telephone Encounter - Rain Olivares RPh - 08/02/2024 4:32 PM EDT [facility] copay assistance enrollment completed online 08/01/24. I called [facility] on 08/02/24 and they verified receipt. They stated the next step is to verify benefits. I stressed the fact that this is through her pharmacy benefit. I also let the rep know that the prescription was already ran at [facility] pharmacy with a copay of $5900. I requested this to be escalated. I called Jenny [phone] on 08/02 to request they reach out to [facility] @ [phone] to verify herbenefits for the Keytruda and to expedite the copay assistance approval as she is currently scheduled Monday08/09/24. Hopefully, we can get this approved by Monday or Monday. Once approved, we need to: - forward the copay billing information to [facility] pharmacy - request overnight shipment of the Keytruda Worst case - Shyla should still see her Monday I would think because she has had ongoing diarrhea and we can reschedule for treatment. Rain Cabello RPh [facility] Work Phone: [phone] Miscellaneous Notes* Telephone Encounter - Rain Olivares RPh - 08/02/2024 4:32 PM EDT [facility] copay assistance enrollment completed online 08/01/24. I called [facility] on 08/02/24 and they verified receipt. They stated the next step is to verify benefits. I stressed the fact that this is through her pharmacy benefit. I also let the rep know that the prescription was already ran at [facility] pharmacy with a copay of $5900. I requested this to be escalated. I called Jenny [phone] on 08/02 to request they reach out to [facility] @ [phone] to verify herbenefits for the Keytruda and to expedite the copay assistance approval as she is currently scheduled Monday08/09/24. Hopefully, we can get this approved by Monday or Monday. Once approved, we need to: - forward the copay billing information to [facility] pharmacy - request overnight shipment of the Keytruda Worst case - Shyla should still see her Monday I would think because she has had ongoing diarrhea and we can reschedule for treatment. Thanks, Rain Olivares RPh * Telephone Encounter - Rain Olivares RPh - 07/25/2024 9:28 AM EDT Received email that keyreneeuda requires a PA. Unable to complete on [facility]. Call placed to [facility] - they updated the PA, and advised it should be approved for 90 days. Call placed to [facility] pharmacy - still receiving a denial. Conference call placed to [facility]. [facility] was able to provide updated pharmacy billing information and [facility] pharmacy was able to geta paid claim. However, the copay is $5968.24. [facility] rep advised the patient must use the [employer] copay card for the copay. I requested [facility] to reverse the claim for now and advised I would obtain the [employer] copay information and call back. [facility] also advised they need to do a welcome call with the patient to review her current med listand other pertinent medical conditions. Once they have this completed, [facility] retail pharmacy technician advised they could ship out the medication today. Call placed back to JENNY requesting a review of the denied claim at our [facility] pharmacy. The rep stated she would escalate to the clinical team and call me back with more information if we would be ableto fill here. documented in this encounterSub[facility]05-15[facility]25 [facility] History of Present illness Narrative* Shyla Mayer, KYLEIGH.MULTIGRAPH OPERATOR - 07/25/2024 12:59 PM EDT Images from the original note were not included. NAME: Debby Hermosillo CLINIC NO.: [id number] DATE OF SERVICE: July 25, 2024 ([place]) Some elements in this clinic note that are critical to medical decision making have been carefully reviewed and included from a prior clinic note dated: July 04, 2024 (Reba) Referring Provider: Otoniel Adhikari MD Additional Clinicians involved in Debby [...] 08/2022: MICHAEL splice site SNV, JAYLIN ASSESSMENT: 59 year old female here for follow up. [...] when she had small cell lung cancer. 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 Both AE's have responded nicely to prednisone and will taper further to 10 mg daily before restarting I/O PLAN: Continue to hold Keytruda due to possible immune mediated colitis Resume prednisone 20mg (2 tablets) daily Will order stool for C. difficile and cultures Continue Synthroid 25 mcg daily RTC in 2 weeks for follow up and labs Labs same day Consider decreasing prednisone to 10 mg daily HPI: CASE HISTORY: Reverse Chronological Order 06/20/2024 - ?? Immune mediated colitis - Start Prednisone 40 mg and taper weekly. 06/18/2024 - CT Abdomen: at [facility] ER for elevated LFTs Intra and extrahepatic biliary dilation, probably related to cholecystectomy 04/30/2024 - PET/CT: Since 01/12/2024, no evidence of FDG avid disease. Posttreatment changes in the right lung. 02/19/2024 - GKS right frontal lesion 01/26/2024 - MRI Brain: Interval development of a 0.8 x 0.7 [...] musculature surrounding the right ischium, likely strain ortrauma. 09/28/2023 - CT CAP: Chest: Stable appearance [...] undergo continued close imaging surveillance. No significant thoracicadenopathy. A/P: No evidence of metastatic disease in [...] to posttherapy changes and healing. Attention on follow-upCT scan of the chest. Stable posttreatment changes [...] A - TRANSBRONCHIAL FINE-NEEDLE ASPIRATION - LINGULA NODULE: - Positive for malignant cells. - Adenocarcinoma. B - EBUS TRANSBRONCHIAL FINE NEEDLE ASPIRATE, LYMPH NODE - 4L: - Positive for malignant cells. - Adenocarcinoma. [...] for neoplasm. No hypermetabolic lymphadenopathy. Abdomen and Pelvis: No evidence of FDG avid neoplastic process [...] and reticular opacities, likely on the basis ofposttreatment change. No evidence of bulky intrathoracic lymphadenopathy. 07/18/2019 - PET/CT: NECK: NO FDG AVID NEOPLASTIC PROCESS.. CHEST: NO FDG AVID NEOPLASTIC PROCESS. 1.4 X 0.9 CM HYPOMETABOLIC RIGHT UPPER LOBE NODULE WITH ADJACENT PARENCHYMAL SCARRING LATERALLY, IMPROVED SINCE 01/09/2019. FINDINGS ARE COMPATIBLE WITH SATISFACTORY RESPONSE OF TREATED RIGHT UPPER LOBE NODULE POST CHEMORADIATION. 0.6 CM AND 0.4 CM FAINT RIGHTMIDDLE LOBE GROUNDGLASS ATTENUATION DENSITIES, STABLE SINCE 09/12/2017. ABDOMEN/PELVIS: NO FDG AVID NEOPLASTIC PROCESS. EXTREMITIES/SKELETON: NO SUSPICIOUS FDG AVID OSSEOUS LESION. 04/09/2018 - Discontinued Imfinzi per Dr. Beaver due to pancreatitis 01/16/2018-01/29/2018 - PCI whole brain 2500 cGy in [address] Carrero 03/24/2017-07/12/2017 - Concurrent carboplatin and etoposide (5 cycles) 03/24/2017-05/17/2017 - Concurrent radiation Updated Visit, July 25, 2024: Debby Hermosillo returns for scheduled follow-up. 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 1 week ago, the patient elected to stop the prednisone. Recommendation was to decrease prednisone to 10 mg daily, in order to possibly resume treatment. Shortly after stopping the prednisone, the patient developed recurrent severe diarrhea. This morning she had 5 diarrheal stools.She denies any blood in her stools. She states that her stools are dark pineda in color. The diarrheahas been ongoing for the last 2 days. She is not eating well. She states she is drinking plenty of fluids. She denies nausea and vomiting. She has an upset stomach. She has been taking [id number] Pepto-Bismol pills. She resumed prednisone 20 mg this morning. She denies any fevers or chills. She has had no recent antibiotic use. She denies any skin rashes. She has a chronic cough which is unchanged. Updated Visit, July 04, 2024: Debby returns for a follow up. She endorses improvement in diarrhea with prednisone - will taper to 10mg. She may need to increase to 20mg if diarrhea returns. Will continue holding Keytruda and reconsider in 3 weeks. Liver enzymes have improved. Updated Visit, June 20, 2024: Debby returns for a follow up. On 06/18/2024, she was sent to the ER at [facility] by another physician for liver workup. CT revealed intra and extrahepatic biliary dilation, probably related to cholecystectomy. She endorses bowel incontinence and diarrhea. Will hold C9 today and start prednisone. Also sent rx for Synthroid as TSH is 9.060 due to Keytruda. Updated Visit, June 13, 2024: Debby returns today. She denies new rashes, shortness of breath, and diarrhea. She was seen in the ER about 1 week ago for pain due to ulcers and a hernia. She does endorse vision changes since GKRS. She has not yet followed up with neurosurgery. LFTs are elevated today - will hold C9 Keytruda today and repeat CMP in 1 week to monitor. She has not started any new medications, including Tylenol,and she does not drink alcohol. Updated Visit, May 02, 2024: Debby returns [...] her right frontal lesion. She is finishing asteroid taper per NS team. She has not [...] have some diarrhea for 2-3 weeks liquid stools4-5 times a day. It went away on its own. She is eating and drinking okay. She does have some vision changes. She is no longer driving. No pain. Updated Visit, January 12, 2024: Debby returns for a follow up. She has her MRI of the brain scheduled for 01/14. Final reading oftoday's PET/CT are in process - on my initial view, I do not see any cause for concern. For the past 1.5 months, she has not had the strength to get back up after bending over. She endorses difficulty driving in the dark - recommended she follow up with her supervisor white sugar. Updated Visit, December 27, 2023: Debby returns for a follow up. She reports about 3 weeks ago, her found her asleep on thefloor but she does not remember how she got there. Her elbows had wounds indicative of a fall - healed now. She complains of buttock pain, similar to a pain she had in the past. I will order a PET/CTand MRI of the brain to evaluate her [...] wait to correct with next lab test. Mother had thyroid cancer More tired than usual [...] PERFORMANCE STATUS: 1 PHYSICAL EXAMINATION: Vitals: BP 146/78 Pulse 107 Temp (Src) 97.6 (Temporal) Resp 16 Ht 4' 11.843 (1.52m) Wt 89 lb 11.6 oz (40.7kg) SpO2 98% BMI 17.62 kg/(m^2). Body surface area is 1.31 meters squared. Exam limited to gross visualization [...] ALLERGIES: ALLERGIES Allergen Reactions Penicillins Unknown MEDICATIONS: pembrolizumab (KEYTRUDA) 25 mg/mL injection Inject 168 mg intravenously every 6 weeks. prochlorperazine (COMPAZINE) 10 mg tablet TAKE 1 TABLET BY MOUTH EVERY 6 HOURS NEEDED SYNTHROID 25 mcg tablet TAKE 1 TABLET BY MOUTH EVERY DAY benzonatate (TESSALON PERLE) 100 mg capsule take 1 capsule by mouth three times a day as needed forcough pantoprazole DR (PROTONIX) 40 mg tablet Take 1 tablet by mouth two times a day. sucralfate (CARAFATE) 1 gram tablet TAKE 1 TABLET BY MOUTH FOUR TIMES A DAY ondansetron (ZOFRAN) 8 mg tablet Take 1 tablet by mouth every 8 hours as needed for nausea/vomiting. famotidine (PEPCID) 20 mg tablet Take 1 tablet by mouth once daily. furosemide (LASIX) 20 mg tablet TAKE 1 TABLET BY MOUTH EVERY DAY KLOR-CON M20 20 mEq tablet TAKE 1 TABLET BY MOUTH EVERY DAY folic acid 1 mg tablet take 1 tablet by mouth every day buprenorphine-naloxone (SUBOXONE) 8-2 mg film Dissolve under the tongue once daily. aspirin, enteric coated (ASPIRIN, ENTERIC COATED) 81 [...] 2022. LABORATORY VALUES: WBC (k/uL) Date Value 07/25/2024 8.59 RBC (m/uL) Date Value 07/25/2024 3.31 (L) Hemoglobin (g/dL) Date Value 07/25/2024 10.5 (L) Hematocrit (%) Date Value 07/25/2024 33.1 (L) MCV (fL) Date Value 07/25/2024 100.0 MCH (pg) Date Value 07/25/2024 31.7 MCHC (g/dL) Date Value 07/25/2024 31.7 RDW-CV (%) Date Value 07/25/2024 16.4 (H) Platelet Count (k/uL) Date Value 07/25/2024 207 MPV (fL) Date Value 07/25/2024 10.1 Glucose (mg/dL) Date Value 07/25/2024 117 (H) BUN (mg/dL) Date Value 07/25/2024 14 Creatinine (mg/dL) Date Value 07/25/2024 0.57 (L) Sodium (mmol/L) Date Value 07/25/2024 135 (L) Potassium (mmol/L) Date Value 07/25/2024 4.1 Chloride (mmol/L) Date Value 07/25/2024 101 CO2 (mmol/L) Date Value 07/25/2024 25 Protein, Total (g/dL) Date Value 07/25/2024 6.1 (L) Albumin (g/dL) Date Value 07/25/2024 3.4 (L) Calcium, Total (mg/dL) Date Value 07/25/2024 9.1 Alkaline Phosphatase (U/L) Date Value 07/25/2024 1,338 (H) Bilirubin, Total (mg/dL) Date Value 07/25/2024 0.3 AST (U/L) Date Value 07/25/2024 255 (H) ALT (U/L) Date Value 07/25/2024 151 (H) DIAGNOSIS: (C34.00) Malignant neoplasm of hilus of lung, unspecified laterality (HCC) (primary encounter diagnosis) (K52.9) Colitis, acute (C34.90, C79.51) 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) (R19.7) Diarrhea, unspecified type PAST MEDICAL HISTORY Diagnosis Date Acute, but ill-defined, cerebrovascular disease 10/2021 Adenocarcinoma of left lung (HCC) 08/10/2022 4L and Lingula Arthritis Asthma ([facility]) Back pain chronic Carpal tunnel syndrome, bilateral s/p repair - 2016 Current smoker DDD (degenerative disc disease), lumbar GERD (gastroesophageal reflux disease) Kidney stones Malignant neoplasm of lower lobe of right lung (HCC) 11/15/2022 Neck pain Neuropathy unclear origin- 6 months? saw neurologist (Dr. Hearn- In [facility]); possible MS? Osteoporosis Pneumonia 06/2016 & [...] which included preparing to see the patient, [id number] patient care, completing clinical documentation, obtaining and/or reviewing separately obtained history, performing a medically appropriate examination, counseling and educating the pat ient/family/caregiver, ordering medications, tests, or procedures, independently interpreting results (not separately reported), and communicating results to the patient/family/caregiver. Shyla Mayer APRN.STEPHANIE Hematology and Oncology Services Provided at: [place], [place] CC: Milton Madison MD documented in this encounterSub[facility] Telephone encounter Note * Telephone Encounter - Rain Olivares RPh - 07/25/2024 9:28 AM EDT Received email that eric requires a PA. Unable to complete on [facility]. Call placed to JENNY - they updated the PA, and advised it should be approved for 90 days. Call placed to [facility] - still receiving a denial. Conference call placed to JENNY. [facility] was able to provide updated pharmacy billing information and [facility] pharmacy was able to geta paid claim. However, the copay is $5968.24. [facility] advised the patient must use the [employer] copay card for the copay. I requested [facility] to reverse the claim for now and advised I would obtain the [employer] copay information and call back. [facility] need to do a welcome call with the patient to review her current med listand other pertinent medical conditions. Once they have this completed, [facility] retail pharmacy technician advised they could ship out the medication today. Call placed back to JENNY requesting a review of the denied claim at our [facility] pharmacy. The rep stated she would escalate to the clinical team and call me back with more information if we would be ableto fill here. [facility]05-13-2025 Telephone encounter Note* Telephone Encounter - Michael Britton MD - 07/23/2024 5:42 PM EDT Not taking [facility]05-13-2025 Miscellaneous Notes* Telephone Encounter - Michael Britton MD - 07/23/2024 5:42 PM EDT Not taking * Telephone Encounter - Angella Malloy RN - 07/22/2024 2:07 PM EDT Pt reports she is no longer taking prednisone. Denies need for RX Angella Malloy RN * Telephone Encounter - Raphael Jolley PA-C - 07/22/2024 1:59 PM EDT Please call and claify the dose she is currently taking of prednisone. Raphael Jolley PA-C documented in this encounterSuburban [facility]05-12-2025 Telephone encounter Note * Telephone Encounter - Angella Malloy RN - 07/22/2024 2:07 PM EDT Pt reports she is no longer taking prednisone. Denies need for RX Angella Malloy RN [facility]05-12-2025 Telephone encounter Note* Telephone Encounter - Raphael Jolley PA-C - 07/22/2024 1:59 PM EDT Please call and claify the dose she is currently taking of prednisone. Raphael Jolley PA-C [facility]05-09-2025 Telephone encounter Note* Telephone Encounter - Shyla Mayer APRN.CNP - 07/19/2024 9:01 AM EDT The following approved medication requests have been transmitted electronically. Requested Prescriptions Signed Prescriptions Disp Refills prochlorperazine (COMPAZINE) 10 mg tablet 100 tablet 0 Sig: TAKE 1 TABLET BY MOUTH EVERY 6 HOURS NEEDED Authorizing Provider: SHYLA MAYER APRN.CNP [facility]05-09-2025 Miscellaneous Notes* Telephone Encounter - Shyla Mayer APRN.CNP - 07/19/2024 9:01 AM EDT The following approved medication requests have been transmitted electronically. Requested Prescriptions Signed Prescriptions Disp Refills prochlorperazine (COMPAZINE) 10 mg tablet 100 tablet 0 Sig: TAKE 1 TABLET BY MOUTH EVERY 6 HOURS NEEDED Authorizing Provider: SHYLA MAYER APRN.CNP documented in this encounterSuburban Community Hospital [facility]04-28-2025 History of Present illness Narrative* Merry Mejias, - 07/08/2024 2:30 PM EDT Images from the original note were not included. Chief Complaint: headaches and strokes Subjective Debby Hermosillo, 59 y.o., female Patient presents today for a follow up for history of stroke and migraines. She has been diagnosed with brain metastasis and is status post gamma knife radiosurgery in February 2024. R She continues to follow with [facility] and is on Keytruda and recently had elevations in liver enzymes and the us her cholesterol medication was stopped which we think is reasonable. She has had no new stroke-like symptoms. She does note that the more frequent attempts to utilize Nurtec to controlher migraines have been quite successful. She continues to try to limit the utilization of cigarettes. She has no new neurological concerns today. She is taking and tolerating aspirin and Nurtec well. Review of Systems Constitutional: Negative for appetite [...] Alcohol use: Not on file Allergies: Penicillins There were no vitals filed for this visit. There is no height or weight on file to calculate BMI. Neurologic exam: Mental status: Well nourished, well [...] , wrist extensors , wrist flexor , physician general practice strength 5/5. LUE Strength deltoid , biceps , triceps , wrist extensors , wrist flexor , physician general practice strength 5/5. RLE Strength illopsoas, quadriceps, tibialis anterior, and gastrocnemius strength 5/5. LLE Strength illopsoas, quadriceps, tibialis anterior, and gastrocnemius strength 5/5. Normal tone x4 extremities. Bulk is normal. Sensory: Sensation is intact to light touch throughout distal extremities. Reflexes: RUE biceps reflex 4+ brachioradialis reflex 4+ . LUE biceps reflex 4+ brachioradialis reflex 4+ . RLE knee reflex 3+ . LLE knee reflex 3+ . Craft's sign negative. Coordination: Aleabq-ih-qhit testing is normal Rapid alternating movements are normal Gait: Normal Review and summary of old records: [facility] neurosurgery note dated 02/19/2024: Admitting diagnosis secondary malignant neoplasm of the brain. Procedure performed gamma nice head frame placement. MRI of the brain with contrast on 02/19/2024: 7 mm enhancing parenchymal metastasis in the right anterior parasagittal frontal lobe, unchanged since 01/26/2024: No extra-axial collection. No midline shift. MRI of the brain with without contrast at [facility] on 01/26/2024: There is no acute infarct, [...] process. No evidence of metastasis. [place] [facility] [place]: no thrombus vegetation or masses seen. CTA head and neck at [facility] [place]: there is subtle cortically based [...] Radiosurgery. PLAN: - Continue follow up with [facility] oncology and neurosurgery Tobacco use Stroke risk [...] to both oncology and neurosurgery regarding her increasein headache frequency and she verbalized understanding. - Continue Nurtec 75 mg to every other day [...] oncology as per their recommendations. See above. Pt has been fully educated on their diagnosis, treatment options, follow up plan, and return instructions documented in this encounterCox [id number] Telephone encounter Note* Telephone Encounter - Becky Olivares RN - 07/05/2024 1:29 PM EDT FYI: [employer] calls to confirm that our office received their therapy planning letter recommending we switch patient to weight based keytruda dosing. Informed them that the letter was received and scanned into pt's record. Also informed them that the Keytruda is currently on hold due to immuno-related side effects. Ariel: JENNY just wanted you to be aware that pt is approved for weight-based dosing when you do decide to resume treatment. Copy of their letter is scanned into pt's record. Thanks! Becky Olivares RN [facility] Work Phone: [phone] Miscellaneous Notes* Telephone Encounter - Becky Olivares RN - 07/05/2024 1:29 PM EDT FYI: [employer] calls to confirm that our office received their therapy planning letter recommending we switch patient to weight based keytruda dosing. Informed them that the letter was received and scanned into pt's record. Also informed them that the Keytruda is currently on hold due to immuno-related side effects. Ariel: JENNY just wanted you to be aware that pt is approved for weight-based dosing when you do decide to resume treatment. Copy of their letter is scanned into pt's record. Thanks! Becky Olivares RN documented in this encounterSuburban Community [facility]04-24-2025 NoteKeen[facility]04-24-2025 NoteKeenan [facility]04-10-2025 History of Present illness Narrative* Abhyankar, Michael, MD - 06/20/2024 2:40 PM EDT Images from the original note were not included. NAME: Debby Hermosillo CLINIC NO.: [id number] DATE OF SERVICE: June 20, 2024 (Reba) Some elements in this clinic note that are critical to medical decision making have been carefully reviewed and included from a prior clinic note dated: June 13, 2024 (Mauricio) Referring Provider: Otoniel Adhikari MD Additional Clinicians involved in Debby [...] when she had small cell lung cancer. 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 PLAN: Hold C9 Keytruda today due to elevated liver enzymes and diarrhea Start Prednisone - 4 tablets daily for 1 week, then decrease to 3 tablets for 1 week Start Synthroid 25 mcg daily RTC in 2 weeks to consider C9 Keytruda Labs same day HPI: CASE HISTORY: Reverse Chronological Order 06/20/2024 - ?? Immune mediated colitis - Start Prednisone 40 mg and taper weekly. 06/18/2024 - CT Abdomen: at [facility] ER for elevated LFTs Intra and extrahepatic biliary dilation, probably related to cholecystectomy 04/30/2024 - PET/CT: Since 01/12/2024, no evidence of FDG avid disease. Posttreatment changes in the right lung. 02/19/2024 - GKS right frontal lesion 01/26/2024 - MRI Brain: Interval development of a 0.8 x 0.7 [...] musculature surrounding the right ischium, likely strain ortrauma. 09/28/2023 - CT CAP: Chest: Stable appearance [...] undergo continued close imaging surveillance. No significant thoracicadenopathy. A/P: No evidence of metastatic disease in [...] to posttherapy changes and healing. Attention on follow-upCT scan of the chest. Stable posttreatment changes [...] and reticular opacities, likely on the basis ofposttreatment change. No evidence of bulky intrathoracic lymphadenopathy. 07/18/2019 - PET/CT: NECK: NO FDG AVID NEOPLASTIC PROCESS.. CHEST: NO FDG AVID NEOPLASTIC PROCESS. 1.4 X 0.9 CM HYPOMETABOLIC RIGHT UPPER LOBE NODULE WITH ADJACENT PARENCHYMAL SCARRING LATERALLY, IMPROVED SINCE 01/09/2019. FINDINGS ARE COMPATIBLE WITH SATISFACTORY RESPONSE OF TREATED RIGHT UPPER LOBE NODULE POST CHEMORADIATION. 0.6 CM AND 0.4 CM FAINT RIGHTMIDDLE LOBE GROUNDGLASS ATTENUATION DENSITIES, STABLE SINCE 09/12/2017. ABDOMEN/PELVIS: NO FDG AVID NEOPLASTIC PROCESS. EXTREMITIES/SKELETON: NO SUSPICIOUS FDG AVID OSSEOUS LESION. 04/09/2018 - Discontinued Imfinzi per Dr. Beaver due to pancreatitis 01/16/2018-01/29/2018 - PCI whole brain 2500 cGy in [address] Carrero 03/24/2017-07/12/2017 - Concurrent carboplatin and etoposide (5 cycles) 03/24/2017-05/17/2017 - Concurrent radiation Updated Visit, June 20, 2024: Debby returns for a follow up. On 06/18/2024, she was sent to the ER at [facility] by another physician for liver workup. CT revealed intra and extrahepatic biliary dilation, probably related to cholecystectomy. She endorses bowel incontinence and diarrhea. Will hold C9 today and start prednisone. Also sent rx for Synthroid as TSH is 9.060 due to Keytruda. Updated Visit, June 13, 2024: Debby returns today. She denies new rashes, shortness of breath, and diarrhea. She was seen in the ER about 1 week ago for pain due to ulcers and a hernia. She does endorse vision changes since GKRS. She has not yet followed up with neurosurgery. LFTs are elevated today - will hold C9 Keytruda today and repeat CMP in 1 week to monitor. She has not started any new medications, including Tylenol,and she does not drink alcohol. Updated Visit, May 02, 2024: Debby returns [...] her right frontal lesion. She is finishing asteroid taper per NS team. She has not [...] have some diarrhea for 2-3 weeks liquid stools4-5 times a day. It went away on its own. She is eating and drinking okay. She does have some vision changes. She is no longer driving. No pain. Updated Visit, January 12, 2024: Debby returns for a follow up. She has her MRI of the brain scheduled for 01/14. Final reading ofday's PET/CT are in process - on my initial view, I do not see any cause for concern. For the past 1.5 months, she has not had the strength to get back up after bending over. She endorses difficulty driving in the dark - recommended she follow up with her supervisor white sugar. Updated Visit, December 27, 2023: Debby returns for a follow up. She reports about 3 weeks ago, her found her asleep on thefloor but she does not remember how she got there. Her elbows had wounds indicative of a fall - healed now. She complains of buttock pain, similar to a pain she had in the past. I will order a PET/CTand MRI of the brain to evaluate her [...] wait to correct with next lab test. Mother had thyroid cancer More tired than usual [...] PERFORMANCE STATUS: 1 PHYSICAL EXAMINATION: Vitals: BP 155/85 Pulse 103 Temp (Src) 97.3 (Temporal) Resp 18 Wt 90 lb 13.3 oz (41.2kg) SpO2 98% Body surface area is 1.32 meters squared. [...] ALLERGIES: ALLERGIES Allergen Reactions Penicillins Unknown MEDICATIONS: sucralfate (CARAFATE) 1 gram tablet TAKE 1 TABLET BY MOUTH FOUR TIMES A DAY pantoprazole DR (PROTONIX) 40 mg tablet Take 1 tablet by mouth two times a day. prochlorperazine (COMPAZINE) 10 mg tablet Take 1 tablet by mouth every 6 hours as needed. benzonatate (TESSALON PERLE) 100 mg capsule take 1 capsule by mouth three times a day as needed forcough ondansetron (ZOFRAN) 8 mg tablet Take 1 tablet by mouth every 8 hours as needed for nausea/vomiting. famotidine (PEPCID) 20 mg tablet Take 1 tablet by mouth once daily. furosemide (LASIX) 20 mg tablet TAKE 1 TABLET BY MOUTH EVERY DAY KLOR-CON M20 20 mEq tablet TAKE 1 TABLET BY MOUTH EVERY DAY folic acid 1 mg tablet take 1 tablet by mouth every day buprenorphine-naloxone (SUBOXONE) 8-2 mg film Dissolve under the tongue once daily. aspirin, enteric coated (ASPIRIN, ENTERIC COATED) 81 mg EC tablet Take 81 mg by mouth once daily. atorvastatin (LIPITOR) 40 mg tablet Take 40 mg by mouth once daily. NURTEC ODT 75 mg disintegrating tablet DISSOLVE 1 TABLET ON THE TONGUE ONCE A DAY AT ONSET OF MIGRAINE ACETAMINOPHEN (TYLENOL ORAL) Take by mouth. predniSONE (DELTASONE) 10 mg tablet Take 4 tablets by mouth once daily. Taper as directed. levothyroxine (SYNTHROID) 25 mcg tablet Take 1 tablet by mouth once daily. SUBOXONE 8-2 mg film Dissolve 1 Film under the tongue twice daily for 1 day. Do not start before November 23, 2022. LABORATORY VALUES: WBC (k/uL) Date Value 06/20/2024 8.06 RBC (m/uL) Date Value 06/20/2024 3.24 (L) Hemoglobin (g/dL) Date Value 06/20/2024 10.3 (L) Hematocrit (%) Date Value 06/20/2024 32.9 (L) MCV (fL) Date Value 06/20/2024 101.5 (H) MCH (pg) Date Value 06/20/2024 31.8 MCHC (g/dL) Date Value 06/20/2024 31.3 RDW-CV (%) Date Value 06/20/2024 14.7 Platelet Count (k/uL) Date Value 06/20/2024 242 MPV (fL) Date Value 06/20/2024 9.3 Glucose (mg/dL) Date Value 06/20/2024 97 BUN (mg/dL) Date Value 06/20/2024 17 Creatinine (mg/dL) Date Value 06/20/2024 0.59 Sodium (mmol/L) Date Value 06/20/2024 136 Potassium (mmol/L) Date Value 06/20/2024 4.1 Chloride (mmol/L) Date Value 06/20/2024 104 CO2 (mmol/L) Date Value 06/20/2024 26 Protein, Total (g/dL) Date Value 06/20/2024 5.5 (L) Albumin (g/dL) Date Value 06/20/2024 3.1 (L) Calcium, Total (mg/dL) Date Value 06/20/2024 8.7 Alkaline Phosphatase (U/L) Date Value 06/20/2024 710 (H) Bilirubin, Total (mg/dL) Date Value 06/20/2024 0.2 AST (U/L) Date Value 06/20/2024 38 (H) ALT (U/L) Date Value 06/20/2024 141 (H) DIAGNOSIS: (C34.90, C79.51) 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) (primary encounter diagnosis) Plan: COMPREHENSIVE METABOLIC PANEL, COMPLETE BLOOD COUNT AND DIFFERENTIAL, CORTISOL, SERUM, THYROID STIMULATING HORMONE (E03.2) Hypothyroidism due to medication Plan: levothyroxine (SYNTHROID) 25 mcg tablet, COMPREHENSIVE METABOLIC PANEL, COMPLETE BLOOD COUNT AND DIFFERENTIAL, CORTISOL, SERUM, THYROID STIMULATING HORMONE (R74.8) Elevated liver enzymes Plan: COMPREHENSIVE METABOLIC PANEL, COMPLETE BLOOD COUNT AND DIFFERENTIAL, CORTISOL, SERUM, THYROID STIMULATING HORMONE (R53.81, R53.83) Malaise and fatigue Plan: COMPREHENSIVE METABOLIC PANEL, COMPLETE BLOOD COUNT AND DIFFERENTIAL, CORTISOL, SERUM, THYROID STIMULATING HORMONE (R79.9) Abnormal blood chemistry Plan: COMPREHENSIVE METABOLIC PANEL, COMPLETE BLOOD COUNT AND DIFFERENTIAL, CORTISOL, SERUM, THYROID STIMULATING HORMONE PAST MEDICAL HISTORY Diagnosis Date Acute, but ill-defined, cerebrovascular disease 10/2021 Adenocarcinoma of left lung (HCC) 08/10/2022 4L and Lingula Arthritis Asthma (HCC) Back pain chronic Carpal tunnel syndrome, bilateral s/p repair - 2016 Current smoker DDD (degenerative disc disease), lumbar GERD (gastroesophageal reflux disease) Kidney stones Malignant neoplasm of lower lobe of right lung (HCC) 11/15/2022 Neck pain Neuropathy unclear origin- 6 months? saw neurologist (Dr. Hearn- In [facility]); possible MS? Osteoporosis Pneumonia 06/2016 & [...] which included preparing to see the patient, [id number] patient care, completing clinical documentation, performing a medically appropriate examination, counseling and educating the patient/family/caregiver, ordering medications, tests, or procedures, independently interpreting results (not separately reported), communicating results to the patient/family/caregiver, and care coordination (not separately reported). Michael Britton MD, CPE Hematology and Oncology Services Provided at: [place], [place] Scribe Attestation: This note was scribed by Marina Castro on June 20, 2024 under the direction and supervision ofDr. Michael Britton. I attest that all of the information documented is correct to the best of my knowledge. Provider Attestation: I, Michael Britton MD, attest that all information documented by the above scribe is correct, and was supervised by me and under my direction. CC: Milton Madison MD documented in this encounterSuburban [facility]04-10-2025 NoteKeenan [facility] Hospital04-10-2025 Instructions* Patient Instructions* Marina Castro - 06/20/2024 2:34 PM EDT Hold C9 Keytruda today due to elevated liver enzymes and diarrhea Start Prednisone - 4 tablets daily for 1 week, then decrease to 3 tablets for 1 week Start Synthroid 25 mcg daily RTC in 2 weeks to consider C9 Keytruda Labs same day documented in this encounterSuburban Community Hospital [facility]04-04-2025 Telephone encounter Note * Telephone Encounter - Jessie Dill MA - 06/14/2024 9:15 AM EDT Patient has an appt on 06/20/24. Would you like labs, if so place orders the standing orders are every 6 weeks. Jessie Dill MA [facility]04-04-2025 Miscellaneous Notes* Telephone Encounter - Jessie Santos MA - 06/14/2024 9:15 AM EDT Patient has an appt on 06/20/24. Would you like labs, if so place orders the standing orders are every 6 weeks. Jessie Dill MA documented in this encounterSuburban Community Hospital [facility]04-03-2025 NoteKeenan [facility]04-03-2025 History of Present illness Narrative* Jessika Lange RN - 06/13/2024 1:46 PM EDT AST at [facility], Danny, TIRE DUSTER want to hold treatment this week. We will bring pt back next week to be seen, get redrawn and possible treatment if labs are better. Explained all this to pt and pt agreeableto plan. No further questions. Lead nurse notified to let PSS know to schedule as such since this has changed since pt was seen and in exam room. Jessika Lange, RN documented in this encounterSuburban [facility] Hospital [facility]04-03-2025 Instructions* Patient Instructions* Marina Castro - 06/13/2024 1:28 PM EDT documented in this encounterSuburban Community Hospital [facility]04-03-2025 History of Present illness Narrative* Alis Fonseca APRN.CNP - 06/13/2024 1:00 PM EDT Images from the original note were not included. NAME: Debby Hermosillo [facility] NO.: [id number] DATE OF SERVICE: June 13, 2024 (Mauricio) Some elements in this clinic note that are critical to medical decision making have been carefully reviewed and included from a prior clinic note dated: May 02, 2024 (Reba) Referring Provider: Otoniel Adhikari MD Additional Clinicians involved in Debby [...] Dexamethasone taper and her symptoms improving. PLAN: Hold C9 Keytruda today due to elevated liver enzymes RTC in 1 week to consider C9 Keytruda Repeat labs (monitor liver enzymes) HPI: CASE HISTORY: Reverse Chronological Order 04/30/2024 - PET/CT: Since 01/12/2024, no evidence of FDG avid disease. Posttreatment changes in the right lung. 02/19/2024 - GKS right frontal lesion 01/26/2024 - MRI Brain: Interval development of a 0.8 x 0.7 [...] musculature surrounding the right ischium, likely strain ortrauma. 09/28/2023 - CT CAP: Chest: Stable appearance [...] undergo continued close imaging surveillance. No significant thoracicadenopathy. A/P: No evidence of metastatic disease in [...] to posttherapy changes and healing. Attention on follow-upCT scan of the chest. Stable posttreatment changes [...] and reticular opacities, likely on the basis ofposttreatment change. No evidence of bulky intrathoracic lymphadenopathy. 07/18/2019 - PET/CT: NECK: NO FDG AVID NEOPLASTIC PROCESS.. CHEST: NO FDG AVID NEOPLASTIC PROCESS. 1.4 X 0.9 CM HYPOMETABOLIC RIGHT UPPER LOBE NODULE WITH ADJACENT PARENCHYMAL SCARRING LATERALLY, IMPROVED SINCE 01/09/2019. FINDINGS ARE COMPATIBLE WITH SATISFACTORY RESPONSE OF TREATED RIGHT UPPER LOBE NODULE POST CHEMORADIATION. 0.6 CM AND 0.4 CM FAINT RIGHTMIDDLE LOBE GROUNDGLASS ATTENUATION DENSITIES, STABLE SINCE 09/12/2017. ABDOMEN/PELVIS: NO FDG AVID NEOPLASTIC PROCESS. EXTREMITIES/SKELETON: NO SUSPICIOUS FDG AVID OSSEOUS LESION. 04/09/2018 - Discontinued Imfinzi per Dr. Beaver due to pancreatitis 01/16/2018-01/29/2018 - PCI whole brain 2500 cGy in [address] Carrero 03/24/2017-07/12/2017 - Concurrent carboplatin and etoposide (5 cycles) 03/24/2017-05/17/2017 - Concurrent radiation Updated Visit, June 13, 2024: Debby returns today. She denies new rashes, shortness of breath, and diarrhea. She was seen in the ER about 1 week ago for pain due to ulcers and a hernia. She does endorse vision changes since GKRS. She has not yet followed up with neurosurgery. LFTs are elevated today - will hold C9 Keytruda today and repeat CMP in 1 week to monitor. She has not started any new medications, including Tylenol,and she does not drink alcohol. Updated Visit, May 02, 2024: Debby returns [...] her right frontal lesion. She is finishing asteroid taper per NS team. She has not [...] have some diarrhea for 2-3 weeks liquid stools4-5 times a day. It went away on its own. She is eating and drinking okay. She does have some vision changes. She is no longer driving. No pain. Updated Visit, January 12, 2024: Debby returns for a follow up. She has her MRI of the brain scheduled for 01/14. Final reading oftoday's PET/CT are in process - on my initial view, I do not see any cause for concern. For the past 1.5 months, she has not had the strength to get back up after bending over. She endorses difficulty driving in the dark - recommended she follow up with her supervisor white sugar. Updated Visit, December 27, 2023: Debby returns for a follow up. She reports about 3 weeks ago, her found her asleep on thefloor but she does not remember how she got there. Her elbows had wounds indicative of a fall - healed now. She complains of buttock pain, similar to a pain she had in the past. I will order a PET/CTand MRI of the brain to evaluate her [...] wait to correct with next lab test. Mother had thyroid cancer More tired than usual [...] PERFORMANCE STATUS: 1 PHYSICAL EXAMINATION: Vitals: BP 131/74 Pulse 116 Temp (Src) 97.3 (Temporal) Resp 16 Wt 90 lb 2.7 oz (40.9kg) SpO2 97% Body surface area is 1.31 meters squared. Exam limited to gross visualization [...] ALLERGIES: ALLERGIES Allergen Reactions Penicillins Unknown MEDICATIONS: pantoprazole DR (PROTONIX) 40 mg tablet Take 1 tablet by mouth two times a day. prochlorperazine (COMPAZINE) 10 mg tablet Take 1 tablet by mouth every 6 hours as needed. benzonatate (TESSALON PERLE) 100 mg capsule take 1 capsule by mouth three times a day as needed forcough ondansetron (ZOFRAN) 8 mg tablet Take 1 tablet by mouth every 8 hours as needed for nausea/vomiting. famotidine (PEPCID) 20 mg tablet Take 1 [...] film Dissolve under the tongue once daily. aspirin, enteric coated (ASPIRIN, ENTERIC COATED) 81 mg EC tablet Take 81 mg by mouth once daily. atorvastatin (LIPITOR) 40 mg tablet Take 40 mg by mouth once daily. NURTEC ODT 75 mg disintegrating tablet DISSOLVE 1 TABLET ON THE TONGUE ONCE A DAY AT ONSET OF MIGRAINE ACETAMINOPHEN (TYLENOL ORAL) Take by mouth. dexAMETHasone (DECADRON) 2 mg tablet Start the day after your Gamma Knife Procedure: Decadron (dexamethasone) Take 4 mg (2 tablets) daily for 3 days. Take 2 mg (1 tablet) daily for 3 days then Stop Decadron Patient should start on February 20, 2024. SUBOXONE 8-2 mg film Dissolve 1 Film under the tongue twice daily for 1 day. Do not start before November 23, 2022. LABORATORY VALUES: WBC (k/uL) Date Value 06/13/2024 9.52 RBC (m/uL) Date Value 06/13/2024 3.47 (L) Hemoglobin (g/dL) Date Value 06/13/2024 11.0 (L) Hematocrit (%) Date Value 06/13/2024 34.6 (L) MCV (fL) Date Value 06/13/2024 99.7 MCH (pg) Date Value 06/13/2024 31.7 MCHC (g/dL) Date Value 06/13/2024 31.8 RDW-CV (%) Date Value 06/13/2024 14.5 Platelet Count (k/uL) Date Value 06/13/2024 248 MPV (fL) Date Value 06/13/2024 9.5 Glucose (mg/dL) Date Value 06/13/2024 117 (H) BUN (mg/dL) Date Value 06/13/2024 21 Creatinine (mg/dL) Date Value 06/13/2024 0.74 Sodium (mmol/L) Date Value 06/13/2024 136 Potassium (mmol/L) Date Value 06/13/2024 4.1 Chloride (mmol/L) Date Value 06/13/2024 101 CO2 (mmol/L) Date Value 06/13/2024 27 Protein, Total (g/dL) Date Value 06/13/2024 6.1 (L) Albumin (g/dL) Date Value 06/13/2024 3.3 (L) Calcium, Total (mg/dL) Date Value 06/13/2024 8.9 Alkaline Phosphatase (U/L) Date Value 06/13/2024 425 (H) Bilirubin, Total (mg/dL) Date Value 06/13/2024 0.2 AST (U/L) Date Value 06/13/2024 105 (H) ALT (U/L) Date Value 06/13/2024 53 (H) DIAGNOSIS: (C34.00) Malignant neoplasm of hilus of lung, unspecified laterality (HCC) (primary encounter diagnosis) (C34.90, C79.51) 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) (R74.8) Elevated liver enzymes PAST MEDICAL HISTORY Diagnosis Date Acute, but [...] 6 months? saw neurologist (Dr. Hearn- In [facility]); possible MS? Osteoporosis Pneumonia 06/2016 & [...] which included preparing to see the patient, [id number] patient care, completing clinical documentation, performing a medically appropriate examination, counseling and educating the patient/family/caregiver, ordering medications, tests, or procedures, independently interpreting results (not separately reported), communicating results to the patient/family/caregiver, and care coordination (not separately reported). Alis Fonseca APRN, TIRE DUSTER-C, OCN Hematology and Oncology Services Provided at: [place], [place] Scribe Attestation: This note was scribed by Marina Castro on June 13, 2024 under the direction and supervision of Alis Fonseca. I attest that all of the information documented is correct to the best of my knowledge. Provider Attestation: I, Alis Fonseca, attest that all information documented by the above scribe is correct, and was supervised by me and under my direction. CC: Milton Madison MD documented in this encounterSub[facility]04-[facility]-2025 NoteKeenan Private Hospital03-31-2025 NotePatient Education Urology Kidney Stones Kidney stones are rock-like masses that form inside of the kidneys. Kidneys are organs that make pee (urine). A kidney stone may move into other parts of the urinary tract, including: ??? The tubes that connect the kidneys to the bladder (ureters). ??? The bladder. ??? The tube that carries urine out of the body (urethra). Kidney stones can cause very bad pain and can block the flow of pee. The stone usually leaves your body through your pee. A doctor may need to take out the stone. What are the causes? Kidney stones may be caused by: ??? Too much calcium in the body. This may be caused by too much parathyroid hormone in the blood. ??? Uric acid crystals in the bladder. The body makes uric acid when you eat certain foods. ??? Narrowing of one or both of the ureters. ??? A kidney blockage that you were born with. ??? Past surgery on the kidney or the ureters. What increases the risk? You are more likely to develop this condition if: ??? You have had a kidney stone in the past. ??? Other people in your family have had kidney stones. ??? You do not drink enough water. ??? You eat a diet that is high in protein, salt (sodium), or sugar. ??? You are very overweight (obese). What are the signs or symptoms? Symptoms of a kidney stone may include: ??? Pain in the side of the belly, right below the ribs. Pain usually spreads to the groin. ??? Needing to pee often or right away. ??? Pain when peeing. ??? Blood in your pee. ??? Feeling like you may vomit (nauseous). ??? Vomiting. ??? Fever and chills. How is this treated? Treatment depends on the size, location, and makeup of the kidney stones. The stones will often pass out of the body when you pee. You may need to: ??? Drink more fluid to help pass the stone. ? In some cases, you may be given fluids through an IV tube at the hospital. ??? Take medicine for pain. ??? Change your diet to help keep kidney stones from coming back. Sometimes, you may need: ??? A procedure to break up kidney stones using a beam of light (laser) or shock waves. ??? Surgery to remove the kidney stones. Follow these instructions at home: Medicines ??? Take lgrf-naa-sxkhkhz and prescription medicines only as told by your doctor. ??? Ask your doctor if the medicine prescribed to you requires you to avoid driving or using machinery. Eating and drinking ??? Drink enough fluid to keep your pee pale yellow. ? You may be told to drink at least 8?10 glasses of water each day. This will help you pass the stone. ??? If told by your doctor, change your diet. You may be told to: ? Limit how much salt you eat. ? Eat more fruits and vegetables. ? Limit how much meat, poultry, fish, and eggs you eat. ??? Follow instructions from your doctor about what you may eat and drink. General instructions ??? Collect pee samples as told by your doctor. You may need to collect a pee sample: ? 24 hours after a stone comes out. ? 8?12 weeks after a stone comes out, and every 6?12 months after that. ??? Strain your pee every time you pee. Use the strainer that your doctor recommends. ??? Do not throw out the stone. Keep it so that it can be tested by your doctor. ??? Keep all follow-up visits. You may need X-rays and ultrasounds to make sure the stone has come out. How is this prevented? To prevent another kidney stone: ??? Drink enough fluid to keep your pee pale yellow. This is the best way to prevent kidney stones. ??? Eat healthy foods. ??? Avoid certain foods as told by your doctor. You may be told to eat less protein. ??? Stay at a healthy weight. Where to find more information ??? National Kidney Foundation (NKF): kidney.org ??? U[employer] Care Foundation (UCF): urologyhealth.org Contact a doctor if: ??? You have pain that gets worse or does not get better with medicine. Get help right away if: ??? You have a fever or chills. ??? You get very bad pain. ??? You get new pain in your belly. ??? You faint. ??? You cannot pee. This information is not intended to replace advice given to you by your health care provider. Make sure you discuss any questions you have with your health care provider. Document Revised: 10/21/2022 Document Reviewed: 10/21/2022 [employer] Patient Education ? 2023 [employer] 06-05-2024 Telephone encounter Note* Telephone Encounter - Raphael Jolley PA-C - 06/05/2024 12:14 PM EDT Absolutely. I sent the refill to [facility] in [place]. Raphael Jolley PA-C [facility]03-26-2025 Miscellaneous Notes* Telephone Encounter - Raphael Jolley PA-C - 06/05/2024 12:14 PM EDT Absolutely. I sent the refill to [facility] in [place]. Raphael Jolley PA-C documented in this encounterSuburban [facility]02-21-2025 Telephone encounter Note * Telephone Encounter - Mila Briscoe RN - 05/03/2024 8:52 AM EST Images from the original note were not included. Michael Britton MD Cullen, Tiffany G, RN Hi Tiff - PET/CT is negative. Message left with this information on pt's voicemail Mila Briscoe RN [facility] Work Phone: [phone] Miscellaneous Notes* Telephone Encounter - Mila Briscoe RN - 05/03/2024 8:52 AM EST Images from the original note were not included. AbMichael joel MD Cullen, Tiffany G, RN Hi Tiff - PET/CT is negative. Message left with this information on pt's voicemail Mila Briscoe RN * Telephone Encounter - Briseyda Ewing - 05/02/2024 1:30 PM EST Images from the original note were not included. documented in this encounterSuburban [facility] Hospital [facility]02-20-2025 Telephone encounter Note * Telephone Encounter - Briseyda Ewing - 05/02/2024 1:30 PM EST Images from the original note were not included. [facility]02-20-2025 Instructions* Patient Instructions* Marina Castro - 05/02/2024 1:10 PM EST Mila Briscoe to call results of PET scan Proceed C8 Keytruda today RTC with me in 6 weeks for C9 Keytruda [facility] same day documented in this encounterSuburban Community Hospital & [facility]02-20-2025 History of Present illness Narrative* Michael Britton MD - 05/02/2024 1:00 PM EST Images from the original note were not included. NAME: Debby Hermosillo NO.: [id number] DATE OF SERVICE: May 02, 2024 (Reba) Some elements in this clinic note that are critical to medical decision making have been carefully reviewed and included from a prior clinic note dated: March 21, 2024 (Reba) Referring Provider: Otoniel Adhikari MD Additional Clinicians involved in Debby [...] musculature surrounding the right ischium, likely strain ortrauma. 09/28/2023 - CT CAP: Chest: Stable appearance [...] undergo continued close imaging surveillance. No significant thoracicadenopathy. A/P: No evidence of metastatic disease in [...] to posttherapy changes and healing. Attention on follow-upCT scan of the chest. Stable posttreatment changes [...] and reticular opacities, likely on the basis ofposttreatment change. No evidence of bulky intrathoracic lymphadenopathy. 07/18/2019 - PET/CT: NECK: NO FDG AVID NEOPLASTIC PROCESS.. CHEST: NO FDG AVID NEOPLASTIC PROCESS. 1.4 X 0.9 CM HYPOMETABOLIC RIGHT UPPER LOBE NODULE WITH ADJACENT PARENCHYMAL SCARRING LATERALLY, IMPROVED SINCE 01/09/2019. FINDINGS ARE COMPATIBLE WITH SATISFACTORY RESPONSE OF TREATED RIGHT UPPER LOBE NODULE POST CHEMORADIATION. 0.6 CM AND 0.4 CM FAINT RIGHTMIDDLE LOBE GROUNDGLASS ATTENUATION DENSITIES, STABLE SINCE 09/12/2017. [...] her right frontal lesion. She is finishing asteroid taper per NS team. She has not [...] have some diarrhea for 2-3 weeks liquid stools4-5 times a day. It went away on its own. She is eating and drinking okay. She does have some vision changes. She is no longer driving. No pain. Updated Visit, January 12, 2024: Debby returns for a follow up. She has her MRI of the brain scheduled for 01/14. Final reading oftoday's PET/CT are in process - on my initial view, I do not see any cause for concern. For the past 1.5 months, she has not had the strength to get back up after bending over. She endorses difficulty driving in the dark - recommended she follow up with her supervisor white sugar. Updated Visit, December 27, 2023: Debby returns for a follow up. She reports about 3 weeks ago, her found her asleep on thefloor but she does not remember how she got there. Her elbows had wounds indicative of a fall - healed now. She complains of buttock pain, similar to a pain she had in the past. I will order a PET/CTand MRI of the brain to evaluate her [...] mouth three times a day as needed forcough dexAMETHasone (DECADRON) 2 mg tablet Start the [...] 6 months? saw neurologist (Dr. Hearn- In [facility]); possible MS? Osteoporosis Pneumonia 06/2016 & [...] which included preparing to see the patient, [id number] patient care, completing clinical documentation, performing a medically appropriate examination, counseling and educating the patient/family/caregiver, ordering medications, tests, or procedures, independently interpreting results (not separately reported), communicating results to the patient/family/caregiver, and care coordination (not separately reported). Michael Britton MD, CPE Hematology and Oncology Services Provided at: [place], [place] Scribe Attestation: This note was scribed by Marina Castro on May 02, 2024 under the direction and supervisionof Dr. Michael Britton. I attest that all of the information documented is correct to the best of my knowledge. Provider Attestation: I, Michael Britton MD, attest that all information documented by the above scribe is correct, and was supervised by me and under my direction. CC: Milton Madison MD documented in this encounterSuburban Community Hospital [facility]02-20-2025 NoteKeenan Private Hospital02-18-2025 History of Present illness Narrative* Becky Ledezma RT(R) - 04/30/2024 11:15 AM EST RADIOLOGY SERVICE PROGRESS NOTE SERVICE DATE: 04/30/2024 SERVICE TIME: 12:11 PM PATIENT IDENTITY VERIFICATION COMPLETED USING TWO (2) STANDARD IDENTIFIERS: Name and Date of confirmed by patient verbally POST EXAM PIV STATUS: Discontinued PROCEDURE TYPE: NM INJECT: PET/CT BODY SCAN. 6.4 mCi F18 FDG. No other medications given.. ADMINISTRATION TIME: 1124 PATIENT DISCHARGED TO: Ambulatory patient, left AL department area. Is this a therapy: No A Diagnostic radioactive procedure has taken place, with no further precautions necessary other than routine body substance precautions. More information regarding radiation safety can be found usingthis link: [email or web address] SIGNATURE: RT Bhavana(R) PATIENT NAME: Debby Hermosillo DATE: April 30, 2024 TIME: 12:11 PM PAGER/CONTACT #: * Yue Alcocer RN - 04/30/2024 11:15 AM EST Radiology Service Progress Note DATE [...] Assigned female at . status: : No status:NO. ALLERGIES: Reviewed and unchanged CONTRAST ALLERGY: No [...] 2024 TIME: 12:46 PM documented in this encounterSuburban [facility] Hospital [facility]02-18-2025 NoteKeenan Private Hospital02-18-2025 NoteKeenan Private Hospital01-17-2025 Telephone encounter Note* Telephone Encounter - Raphael Jolley PA-C - 03/29/2024 10:46 AM EST Prefer she gets a urinalysis and culture before starting antibiotic. Orders placed. She can get it at [facility] or here. Will send in cipro to [facility] but advise her to get urine sample first. Raphael Jolley PA-C [facility]01-17-2025 Miscellaneous Notes* Telephone Encounter - Raphael Jolley PA-C - 03/29/2024 10:46 AM EST Prefer she gets a urinalysis and culture before starting antibiotic. Orders placed. She can get it at [facility] or here. Will send in cipro to [facility] but advise her to get urine sample first. Raphael Jolley PA-C documented in this encounterSuburban Community Hospital [facility]01-13-2025 Telephone encounter Note * Telephone Encounter - Shyla Mayer APRN.CNP - 03/25/2024 1:47 PM EST The following approved medication requests have been transmitted electronically. Requested Prescriptions Signed Prescriptions Disp Refills ondansetron (ZOFRAN) 8 mg tablet 90 tablet 0 Sig: Take 1 tablet by mouth every 8 hours as needed for nausea/vomiting. Authorizing Provider: SHYLA MAYER prochlorperazine (COMPAZINE) 10 mg tablet 100 tablet 0 Sig: Take 1 tablet by mouth every 6 hours as needed. Authorizing Provider: SHYLA MAYER Please notify I increased the dispense dose. Resend if I need to change it. Shyla Cabello APRN.STEPHANIE [facility]01-13-2025 Miscellaneous Notes* Telephone Encounter - Shyla Mayer APRN.CNP - 03/25/2024 1:47 PM EST The following approved medication requests have been transmitted electronically. Requested Prescriptions Signed Prescriptions Disp Refills ondansetron (ZOFRAN) 8 mg tablet 90 tablet 0 Sig: Take 1 tablet by mouth every 8 hours as needed for nausea/vomiting. Authorizing Provider: HSYLA MAYER prochlorperazine (COMPAZINE) 10 mg tablet 100 tablet 0 Sig: Take 1 tablet by mouth every 6 hours as needed. Authorizing Provider: SHYLA MAYER Please notify I increased the dispense dose. Resend if I need to change it. Shyla Cabello MEAT TEAM LEAD.MULTIGRAPH OPERATOR * Telephone Encounter - Angella Malloy RN - 03/25/2024 1:42 PM EST Pt requesting refill of both zofran and compazine. She is out of both. Pended for review and sign Angella Malloy RN documented in this encounterSuburban Community Hospital [facility]01-13-2025 Telephone encounter Note * Telephone Encounter - Angella Malloy RN - 03/25/2024 1:42 PM EST Pt requesting refill of both zofran and compazine. She is out of both. Pended for review and sign Angella Malloy RN [facility]01-09-2025 Instructions* Patient Instructions* Michael Britton MD - 03/21/2024 1:29 PM EST Keytruda today and in 6 weeks with labs same day. PET/CT in 5 weeks RTC with me in 6 weeks to review scans and treat after. documented in this encounterSuburban Community Hospital & [facility]01-09-2025 [facility]01-09-2025 History of Present illness Narrative* Jessie Dill MA - 03/21/2024 1:07 PM EST Patient would like you to look at her arms, she has yung on both of them (looks similar to bruises-she is not on blood thinners). Jessie Dill MA * Michael Britton MD - 03/21/2024 1:00 PM EST Images from the original note were not included. NAME: Debby Hermosillo CLINIC NO.: [id number] DATE OF SERVICE: March 21, 2024 (shonvt) Some elements in this clinic note that are critical to medical decision making have been carefully reviewed and included from a prior clinic note dated: January 12, 2024 (Reba) Referring Provider: Otoniel Adhikari MD Additional Clinicians involved in Debby [...] musculature surrounding the right ischium, likely strain ortrauma. 09/28/2023 - CT CAP: Chest: Stable appearance [...] undergo continued close imaging surveillance. No significant thoracicadenopathy. A/P: No evidence of metastatic disease in [...] to posttherapy changes and healing. Attention on follow-upCT scan of the chest. Stable posttreatment changes [...] and reticular opacities, likely on the basis ofposttreatment change. No evidence of bulky intrathoracic lymphadenopathy. 07/18/2019 - PET/CT: NECK: NO FDG AVID NEOPLASTIC PROCESS.. CHEST: NO FDG AVID NEOPLASTIC PROCESS. 1.4 X 0.9 CM HYPOMETABOLIC RIGHT UPPER LOBE NODULE WITH ADJACENT PARENCHYMAL SCARRING LATERALLY, IMPROVED SINCE 01/09/2019. FINDINGS ARE COMPATIBLE WITH SATISFACTORY RESPONSE OF TREATED RIGHT UPPER LOBE NODULE POST CHEMORADIATION. 0.6 CM AND 0.4 CM FAINT RIGHTMIDDLE LOBE GROUNDGLASS ATTENUATION DENSITIES, STABLE SINCE 09/12/2017. [...] her right frontal lesion. She is finishing asteroid taper per NS team. She has not [...] have some diarrhea for 2-3 weeks liquid stools4-5 times a day. It went away on its own. She is eating and drinking okay. She does have some vision changes. She is no longer driving. No pain. Updated Visit, January 12, 2024: Debby returns for a follow up. She has her MRI of the brain scheduled for 01/14. Final reading oftoday's PET/CT are in process - on my initial view, I do not see any cause for concern. For the past 1.5 months, she has not had the strength to get back up after bending over. She endorses difficulty driving in the dark - recommended she follow up with her supervisor white sugar. Updated Visit, December 27, 2023: Debby returns for a follow up. She reports about 3 weeks ago, her found her asleep on thefloor but she does not remember how she got there. Her elbows had wounds indicative of a fall - healed now. She complains of buttock pain, similar to a pain she had in the past. I will order a PET/CTand MRI of the brain to evaluate her [...] mouth three times a day as needed forcough dexAMETHasone (DECADRON) 2 mg tablet Start the [...] 6 months? saw neurologist (Dr. Hearn- In [facility]); possible MS? Osteoporosis Pneumonia 06/2016 & [...] which included preparing to see the patient, [id number] patient care, completing clinical documentation, performing a medically appropriate examination, counseling and educating the patient/family/caregiver, ordering medications, tests, or procedures, independently interpreting results (not separately reported), communicating results to the patient/family/caregiver, and care coordination (not separately reported). Michael Britton MD, CPE Hematology and Oncology Services Provided at: [place], [place] CC: Milton Madison MD documented in this encounterSuburban Community Hospital [facility]01-09-2025 NoteKeenan Private Hospital01-02-2025 History of Present illness Narrative* Krystina GarciaDEXTER - 03/14/2024 1:00 PM EST Images from the original note were [...] , wrist extensors , wrist flexor , physician general practice strength 5/5. LUE Strength deltoid , biceps , triceps , wrist extensors , wrist flexor , physician general practice strength 5/5. RLE Strength illopsoas, quadriceps, tibialis [...] reflex 2+ . Craft's sign negative. 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 Procedure performed gamma nice head frame placement. MRI of the brain with contrast on 02/19/2024: 7 mm enhancing parenchymal metastasis in the right anterior parasagittal frontal lobe, unchanged since 01/26/2024: No extra-axial collection. No midline shift. MRI of the brain with without contrast at [facility] on 01/26/2024: There is no acute infarct, [...] process. No evidence of metastasis. [place] [facility] [place]: no thrombus vegetation or masses seen. CT[place] head and [place] [facility] [place]: there is subtle cortically based [...] Radiosurgery. PLAN: - Continue follow up with [facility] oncology and neurosurgery Tobacco use Stroke risk [...] to both oncology and neurosurgery regarding her increasein headache frequency and she verbalized understanding. - [...] fail to improve, or should a new neurologicalconcern arise. Pt has been fully educated on their diagnosis, treatment options, follow up plan, and return instructions documented in this encounterCox [id number] NoteKeenan Private Hospital12-18-2024 History of Present illness Narrative* Raphael Jolley PA-C - 02/28/2024 2:19 PM EST Images from the original note were not included. NAME: Bay Debby [facility] NO.: [id number] DATE OF SERVICE: January 12, 2024 (Reba) Some elements in this clinic note that are critical to medical decision making have been carefully reviewed and included from a prior clinic note dated: December 27, 2023 (Reba) Referring Provider: Otoniel Adhikari MD Additional Clinicians involved in Debby [...] undergo continued close imaging surveillance. No significant thoracicadenopathy. A/P: No evidence of metastatic disease in [...] to posttherapy changes and healing. Attention on follow-upCT scan of the chest. Stable posttreatment changes [...] and reticular opacities, likely on the basis ofposttreatment change. No evidence of bulky intrathoracic lymphadenopathy. 07/18/2019 - PET/CT: NECK: NO FDG AVID NEOPLASTIC PROCESS.. CHEST: NO FDG AVID NEOPLASTIC PROCESS. 1.4 X 0.9 CM HYPOMETABOLIC RIGHT UPPER LOBE NODULE WITH ADJACENT PARENCHYMAL SCARRING LATERALLY, IMPROVED SINCE 01/09/2019. FINDINGS ARE COMPATIBLE WITH SATISFACTORY RESPONSE OF TREATED RIGHT UPPER LOBE NODULE POST CHEMORADIATION. 0.6 CM AND 0.4 CM FAINT RIGHTMIDDLE LOBE GROUNDGLASS ATTENUATION DENSITIES, STABLE SINCE 09/12/2017. [...] her right frontal lesion. She is finishing asteroid taper per NS team. She has not [...] have some diarrhea for 2-3 weeks liquid stools4-5 times a day. It went away on its own. She is eating and drinking okay. She does have some vision changes. She is no longer driving. No pain. Updated Visit, January 12, 2024: Debby returns for a follow up. She has her MRI of the brain scheduled for 01/14. Final reading oftoday's PET/CT are in process - on my initial view, I do not see any cause for concern. For the past 1.5 months, she has not had the strength to get back up after bending over. She endorses difficulty driving in the dark - recommended she follow up with her supervisor white sugar. Updated Visit, December 27, 2023: Debby returns for a follow up. She reports about 3 weeks ago, her found her asleep on thefloor but she does not remember how she got there. Her elbows had wounds indicative of a fall - healed now. She complains of buttock pain, similar to a pain she had in the past. I will order a PET/CTand MRI of the brain to evaluate her [...] especially in afternoon. October 03, 2023: Debby Hermoisllo is a 58 year old year old [...] mouth three times a day as needed forcough SUBOXONE 8-2 mg film Dissolve 1 Film [...] 6 months? saw neurologist (Dr. Hearn- In [facility]); possible MS? Osteoporosis Pneumonia 06/2016 & [...] which included preparing to see the patient, [id number] patient care, completing clinical documentation, performing a medically appropriate examination, counseling and educating the patient/family/caregiver, ordering medications, tests, or p rocedures, independently interpreting results (not separately reported), communicating results to the patient/family/caregiver, and care coordination (not separately reported). Raphael Jolley PA-C Hematology and Oncology Services Provided at: [place], [place] CC: Milton Madison MD documented in this encounterSub[facility]12[facility] History of Present illness Narrative* Марина Owens, RT(R) - 02/19/2024 9:00 AM EST Radiology Service Progress Note PATIENT NAME: Debby Hermosillo DATE OF SERVICE: February 19, 2024 TIME: 8:35 AM PATIENT IDENTITY VERIFICATION COMPLETED USING TWO (2) IDENTIFIERS: Name and Date of confirmedby patient verbally and Name and Date of confirmed by identification band. FALL SCREENING: Has the patient had 2 falls in the last year or 1 fall with injury or currently using an Ambulatory Assistive Device (Walker, Cane, Wheelchair, Crutches, etc.)? No PATIENT GENDER DATA: Female. status: : No status: NO. PATIENT RELEVANT IMPLANT DATA REVIEWED: Yes PATIENT PRESENTS WITH AN IMPLANTABLE OR ATTACHED PROM BURN OFF OPERATOR: No RADIOLOGY DEPARTMENT: CT; Exam(s) Completed: Brain PERIPHERAL IV DATA: Not applicable SIGNED BY: RT Lisseth(R) February 19, 2024 8:35 AM documented in this encounterSuburban Community Hospital [facility]12-09-2024 [facility]Ke[facility]12-[facility]-2024 Instructions* Patient Instructions* Gloria Fuentes RN - 02/19/2024 8:39 AM EST [facility] Discharge Instructions - As with any surgery there are risks and potential side effects. There is a slight chance of developing brain swelling days or months after the Gamma Knife radiosurgery. If you experience nausea, vomiting, severe headache, visual changes, difficulty speaking, a seizure or any other symptom unusualfor you, contact your physician immediately or go to the nearest emergency room. These may or may not be symptoms of brain swelling. If you go to a physician or hospital other than the [facility] with any problem related to the [...] after your radiosurgery is not unusual. The pinsites may be tender to the touch, as with any small wound, for 3-4 days. Infection of the pin sitesis very rare. If a couple days post-radiosurgery [...] call your physician, Dr. Yamileth More at [phone] In the evening or on weekends, call [phone]; [phone] or toll-free 9-186-LQF-CARE and ask the paving plant operator to page your neurosurgeon's resident delivery consultant. Monday through Monday 8:00 amto 5:00 pm or the Gamma Knife nurse Monday through Monday 8:00 am to 4:00 pm at [phone]. documented in this encounterSuburban Community Hospital [facility]12-09-2024 NoteIMPRESSION: Preprocedure localization examination. Government Services Professional: ABELINO Transcribe Date/Time: Feb 19 2024 8:18A Dictated by : NESTOR TEE MD This examination was interpreted and the report reviewed and electronically signed by: LULU SILVA MD on Feb 19 2024 8:32AM EST DIVISION OF [id number] History of Present illness Narrative* Staci Pino RN - 02/19/2024 7:40 AM EST Radiology Service Progress Note DATE [...] antecubital site with a Angio cath: 22gauge. and A Saline lock was inserted per protocol IV SITE APPEARANCE: Clean,Dry and Intact SIGNATURE: Staci Pino RN PATIENT NAME: Debby Hermosillo DATE: February 19, 2024 TIME: 7:42 AM * Elisabet Pandey RT(R) - 02/19/2024 7:40 AM EST Radiology Service Progress Note PATIENT [...] PATIENT PRESENTS WITH AN IMPLANTABLE OR ATTACHED PROM BURN OFF OPERATOR: No RADIOLOGY DEPARTMENT: MR; Exam(s) Completed: Head: Localization PERIPHERAL IV DATA: Site assessment: Clean,Dry and Intact, Site disposition Left in for next appointment SIGNED BY: RT Tiffany(R) February 19, 2024 7:45 AM documented in this encounterSuburban Community Hospital [facility]12-09-2024 [facility]Ke[facility]12-09-2024 [facility]Ke[facility]12-09-2024 [facility]Ke[facility]12-09-2024 History of Present illness Narrative* Gloria Fuentes RN - 02/19/2024 6:40 AM EST February 19, 2024 0727 Debby Hermosillo arrived ambulatory with post MRI imaging. Debby arrived for GK[facility] ID verified with patient: name and ; ID band applied, allergies reviewed Gloria Feuntes RN Debby assessed for the following: Does [...] Transportation verification: Is patient on immunotherapy? Yes, beatricetrshana. H&P Completion Date: . IV Access Site: left arm #22 angiocath/mediport placed/accessed prior to arrival to . ALLYSSA Cruz positioned in up-right position for stereotactic frame application UNIVERSAL PROTOCOL / SAFETY CHECKLIST: Procedure to be Performed: Gamma Knife Head-frame Placement Sign-In Communication: Completed 818 Time Out: Team confirms the Correct Patient, Correct Procedure, Correct Site, Site Marking, & Correct Position. Gloria Fuentes RN 08 IV Versed 1 mg per order of Dr. Yamileth More for anxiolysis, Gloria Fuentes RN. Falls Risk Assessment: Patient now at risk for falls d/t administration of versed for frame placement. 823 Head Frame: Hunters, pin size 4 utilized for anterior x2 and posterior x2. Frame placement by Dr. Yamileth More. Post-Frame Scannin Report called to ALLYSSA Jenkins in imaging; transported to CT scan via cart. 839 Debby returned to Gamma Knife center waiting with significant other. Nutrition offered. Debby updated regarding treatment planning. Pt reported Decadron 4 mg PO taken prior to arrival in GK. No additional decadron to be given per order of Dr. Yamileth More, Gloria Fuentes RN. 1200 Xanax 0.5mg PO given per [...] Prescriptions eScripted to Pharmacy of Choice: Yes, [facility] in [place], [place]. Contact phone numbers for [facility]/Gamma Knife RN desk hours of availability, Dr. Yamileth More's clinic telephone number, and [facility] local and toll free numbers given to Debby and family/visitors/care takers. Anne-Marie Guardado left ambulatory with Gloria Fuentes, ALLYSSA documented in this encounterSuburban Community Hospital & [facility]12-09-2024 History of Present illness Narrative* Estevan Mauro MD - 02/19/2024 12:00 AM EST DEBBY HERMOSILLO [id number] 02/19/2024 [facility] Department of Radiation Oncology [facility] RADIATION ONCOLOGY GAMMA KNIFE TREATMENT PLANNING NOTE [...] DVH. Electronically Signed Estevan Mauro M.D. / EMA 49:13 AM documented in this encounterSuburban Community Hospital & [facility]12-09-2024 History of Present illness Narrative* Estevan Mauro MD - 02/19/2024 12:00 AM EST SARBJIT HERMOSILLOJULIÁN Gonzales [id number] 02/19/2024 [facility] / Department of Radiation [...] written directive. Staff Physician Estevan Mauro M.D [id number] AM Electronically Signed cc: Dr. Jessika More documented in this encounterSuburban Community Hospital & [facility]12-09-2024 NoteHNO ID: [id number] Author: ESTEVAN MAURO MD Service: Radiation Oncology Author Type: Physician Type: Progress Notes Filed: 02/27/2024 09:13 Note Text: DEBBY HERMOSILLO [id number] 02/19/2024 [facility] Department of Radiation Oncology [facility] RADIATION ONCOLOGY GAMMA KNIFE TREATMENT PLANNING NOTE [...] DVH. Electronically Signed Estevan Mauro M.D. / EMA :13 [facility]12-09-2024 NoteHNO ID: [id number] Author: ESTEVAN MAURO MD Service: Radiation Oncology Author Type: Physician Type: Progress Notes Filed: 02/29/2024 00:04 Note Text: DEBBY HERMOSILLO [id number] 02/19/2024 [facility] / Department of Radiation [...] written directive. Staff Physician Estevan Mauro M.D [id number] AM Electronically Signed cc: [facility] Telephone encounter Note* Telephone Encounter - Jayleen Enrique RN - 02/16/2024 11:37 AM EST I left a message for Debby regarding [...] any doses. Instructed Debby to report to [facility] at 0710. Patient instructed to disregard any other emails, phone calls, or Mychart messages regarding arrival time. Directions given regarding hand winder parking at [facility] entrance. Jayleen Enrique RN [facility]12-06-2024 Miscellaneous Notes* Telephone Encounter - Jayleen Enrique RN - 02/16/2024 11:37 AM EST I left a message for Debby regarding [...] any doses. Instructed Debby to report to [facility] at 0710. Patient instructed to disregard any other emails, phone calls, or Mychart messages regarding arrival time. Directions given regarding hand winder parking at [facility] main entrance. Jayleen Enrique RN documented in this encounterSuburban Community Hospital & [facility]12-05-2024 History of Present illness Narrative* Alfredo More MD - 02/15/2024 11:00 AM EST Images from the original note were not included. Brain Tumor Neuro-Oncology Center New Patient Consultation Referred by No referring provider defined for this encounter. 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 Beaver.during surveillance she developed [...] 6 months? saw neurologist (Dr. Hearn- In [facility]); possible MS? Osteoporosis Pneumonia 06/2016 & [...] mouth three times a day as needed forcough furosemide (LASIX) 20 mg tablet TAKE 1 [...] - 4.00 k/uL 1.48 1.32 0.49 Abs [place] <0.87 k/uL 1.06 0.84 0.39 Abs Eosin [...] DATE OF EXAM: Sep 17 2022 3:39PM [facility] 0295 - MRI BRAIN WO/W IVCON / [...] posttreatment related changes. Additional findings as discussed. Government Services Professional: PSCB Transcribe Date/Time: Sep 17 2022 3:44P Dictated by : FEMI BARNETT MD This examination was interpreted and the report reviewed and electronically signed by: FEMI BARNETT MD on Sep 17 2022 4:01PM EST , CT Brain Report CT BRAIN W IVCON Exam End: 07/30/2018 11:00 AM (Final result) Narrative: * * *Final Report* * * DATE OF EXAM: Jul 30 2018 11:00AM [facility] 0005 - CT BRAIN W IVCON / [...] any questions regarding this interpretation, please call [phone]. If you are unable to reach us at the number above, please feel free to contact [facility] at [phone]. Data Review: Personal review of medical records: I reviewed the [facility] chart. Personal review of image, tracing or [...] (pressure) is common for the first five toten minutes but then usually goes away. Measurement are taken and then the patient is sent for a CTscan. The CT and MRI are transferred to our planning computer where I fuse the images and define regions to be treated (or not). Thereafter I create a plan by applying different size, intensities andlocations of focused radiation to the lesion such that the end result is that the treatment dose ofradiation nearly matches the size, shape and location of the lesion. The radiation oncologist reviews the plan and assigns a dose of radiation. The radiation physicist reviews the plan and confirms the machine is working properly. During this time the patient rests in the waiting area. Treatment typically is in the afternoon. The patient lies down on the treatment couch and the head end desizing machine operator is part of a positioning device that will direct, with great accuracy, up to 192 beams of radiation to converge at the point I picked on the computer. The staff will leave the room prior to treatment and the patient will be monitored by 3 television cameras and 2 intercom systems. The patientwill then slide into the device up to [...] I saw and evaluated the patient. I reviewedthe fellow's note and agree with findings and plan as written. Josep Menchaca MD 12:00 pm 02/15/2024 [facility] I spent a total of 60 minutes on the date of the service which included preparing to see the patient, [id number] patient care, completing clinical documentation, obtaining and/or reviewing separately obtained history, counseling and educating the patient/family/caregiver, independently interpretin g results (not separately reported), and care coordination (not separately reported). Alfredo More MD February 15, 2024 documented in this encounterSuburban Community Hospital & [facility]12-05-2024 NoteKeenan [facility]12-05-2024 Nurse Note* Kristie Zaidi MA - 02/15/2024 10:57 AM EST Additional intake questions: Has the patient had fever, nausea, vomiting, diarrhea, constipation, fatigue for > 1 week? No Does the patient have a decreased appetite? No Does patient want to see a Fashion Stylist? No (yes to any of above refer patient to schedulers for dietitian appointment) ) Does patient have any new or increased numbness or tingling of extremities? No Is patient interested in fertility information? No Does patient need any prescription refills? No Does patient have an advanced directive in place? No, Patient referred to [facility]12-05-2024 Nurse Note* Kristie Zaidi MA - 02/15/2024 10:57 AM EST Additional intake questions: Has the patient had fever, nausea, vomiting, diarrhea, constipation, fatigue for > 1 week? No Does the patient have a decreased appetite? No Does patient want to see a Fashion Stylist? No (yes to any of above refer patient to schedulers for dietitian appointment) ) Does patient have any new or increased numbness or tingling of extremities? No Is patient interested in fertility information? No Does patient need any prescription refills? No Does patient have an advanced directive in place? No, Patient referred to [facility] documented in this encounterSuburban Community Hospital & [facility]12-05-2024 [facility]Ke[facility]12-05-2024 History of Present illness Narrative* Jessika Carter MD - 02/15/2024 10:07 AM EST Radiation Oncology - New Patient/Consult Note Patient consents to this virtual visit. PATIENT NAME: Debby Hermosillo PATIENT REQUESTING PROVIDER: Dr. 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 Recurrent Adenocarcinoma- with metastasis 07/2022, confirmed 11/2022- Adenocarcinoma- KRAS A146V, P53, PDL-1 100%, ALK, ROS- 1, NTRK, Her-2 and RET fusions, BRAF negative. Guardant 360 08/2022: MICHAEL splice site SNV, JAYLIN. 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 Final recommendations will be communicated back to the requesting physician by way of the shared medical record, or letter torequesting physician via US mail. DIAGNOSIS: Patient was [...] mutation and no other abnormalities and PDL-1 1 00%. PET suggestive of distant metastasis, MRI Brain negative. Started Single agent Pembro 01/04/2023. PET 06/[address] 09/2023 no progression , PET 01/2024 no progression, MRI brain 01/2024 showed 0.8 cm new right frontal lesion with edema and symptoms. Currently on Dex 4 mg BID. She reportsoccasional migraines, B/l weakness when rising up. Gait [...] mouth three times a day as needed forcough furosemide (LASIX) 20 mg tablet TAKE 1 [...] 6 months? saw neurologist (Dr. Hearn- In [facility]); possible MS? Osteoporosis Pneumonia 06/2016 & [...] co registered for target contouring and treatment planning.The CT scan is necessary to correct for the spatial distortion of the MRI. Both scans will be evaluated by a radiologist and the results will be discussed with the patient. Signed by: Jessika Carter MD cc: To use this Smartlink, specify the provider ID whose address you want to display, e.g., .PROVADDR[1(where 1 is the provider ID). Michael Britton [address] [place] [address] [place] [address] Raphael More [facility] documented in this encounterSuburban Community Hospital [facility]11-27-2024 History of Present illness Narrative* Raphael Jolley PA-C - 02/07/2024 1:00 PM EST Images from the original note were not included. NAME: Bay Debby [facility] NO.: [id number] DATE OF SERVICE: January 12, 2024 (Reba) Some elements in this clinic note that are critical to medical decision making have been carefully reviewed and included from a prior clinic note dated: December 27, 2023 (Reba) Referring Provider: Otoniel Adhikari MD Additional Clinicians involved in Debby [...] undergo continued close imaging surveillance. No significant thoracicadenopathy. A/P: No evidence of metastatic disease in [...] to posttherapy changes and healing. Attention on follow-upCT scan of the chest. Stable posttreatment changes [...] and reticular opacities, likely on the basis ofposttreatment change. No evidence of bulky intrathoracic lymphadenopathy. 07/18/2019 - PET/CT: NECK: NO FDG AVID NEOPLASTIC PROCESS.. CHEST: NO FDG AVID NEOPLASTIC PROCESS. 1.4 X 0.9 CM HYPOMETABOLIC RIGHT UPPER LOBE NODULE WITH ADJACENT PARENCHYMAL SCARRING LATERALLY, IMPROVED SINCE 01/09/2019. FINDINGS ARE COMPATIBLE WITH SATISFACTORY RESPONSE OF TREATED RIGHT UPPER LOBE NODULE POST CHEMORADIATION. 0.6 CM AND 0.4 CM FAINT RIGHTMIDDLE LOBE GROUNDGLASS ATTENUATION DENSITIES, STABLE SINCE 09/12/2017. [...] mg BID. She is scheduled to see [facility] team 02/14. She has had multiple falls and her family finds her laying on the floor and she doesn't remember how she got there. She also was driving her son to work and got lost and didn't know how to get home. She did have some diarrhea for 2-3 weeks liquid stools4-5 times a day. It went away on its own. She is eating and drinking okay. She does have some vision changes. She is no longer driving. No pain. Updated Visit, January 12, 2024: Debby returns for a follow up. She has her MRI of the brain scheduled for 01/14. Final reading oftoday's PET/CT are in process - on my initial view, I do not see any cause for concern. For the past 1.5 months, she has not had the strength to get back up after bending over. She endorses difficulty driving in the dark - recommended she follow up with her supervisor white sugar. Updated Visit, December 27, 2023: Debby returns for a follow up. She reports about 3 weeks ago, her found her asleep on thefloor but she does not remember how she got there. Her elbows had wounds indicative of a fall - healed now. She complains of buttock pain, similar to a pain she had in the past. I will order a PET/CTand MRI of the brain to evaluate her [...] mouth three times a day as needed forcough furosemide (LASIX) 20 mg tablet TAKE 1 [...] 6 months? saw neurologist (Dr. Hearn- In [facility]); possible MS? Osteoporosis Pneumonia 06/2016 & [...] which included preparing to see the patient, [id number] patient care, completing clinical documentation, performing a medically appropriate examination, counseling and educating the patient/family/caregiver, ordering medications, tests, or p rocedures, independently interpreting results (not separately reported), communicating results to the patient/family/caregiver, and care coordination (not separately reported). Raphael Jolley PA-C Hematology and Oncology Services Provided at: [place], [place] CC: Milton Madison MD documented in this encounterSuburban Community Hospital [facility]11-27-2024 NoteKeenan [facility]11-26-2024 Telephone encounter Note* Telephone Encounter - Briseyda Ewing - 02/06/2024 2:58 PM EST Patient has been scheduled on 02/14 per patient's chart and scheduling spoke w/ patient. Briseyda Ewing [facility]11-26-2024 Miscellaneous Notes* Telephone Encounter - Briseyda Ewing - 02/06/2024 2:58 PM EST Patient has been scheduled on 02/14 per patient's chart and scheduling spoke w/ patient. Briseyda Ewing * Telephone Encounter - Mila Briscoe RN - 02/06/2024 9:45 AM EST I called and left a message on '[email or web address] requesting a call back. Mila Briscoe RN * Telephone Encounter - Briseyda Ewing - 02/06/2024 8:56 AM EST Hi Preeti, Do you have an update with this patient? Thanks! Briseyda Ewing * Telephone Encounter - Raphael Jolley PA-C - 02/06/2024 8:50 AM EST Can we check on this? Nothing has been scheduled. Raphael Jolley PA-C * Telephone Encounter - Preeti Bourne - 02/02/2024 3:32 PM EST Sent message to Preeti Moore with patient information.Also sent message to scheduling pool * Telephone Encounter - Raphael Jolley PA-C - 02/02/2024 3:14 PM EST Please refer patient to gamma knife center for new frontal lobe lesion. I tried to message Dr. Turner, but she has not gotten back to me. THe patient is symptomatic and needs seen. Raphael Jolley PA-C documented in this encounterSuburban Community Hospital & [facility]11-26-2024 Telephone encounter Note * Telephone Encounter - Windy Starks - 02/06/2024 2:16 PM EST Spoke to patient and scheduled both appointments for 02/14. Windy Curiel [facility]11-26-2024 Miscellaneous Notes* Telephone Encounter - Windy Starks - 02/06/2024 2:16 PM EST Spoke to patient and scheduled both appointments for 02/14. Windy Curiel * Telephone Encounter - Hilaria Webber APRN.CNP - 02/06/2024 12:21 PM EST Images from the original note were not included. Time Frame: EXPEDITE Provider: Yue / Lon / Mohsen / Argenis / Jacinto AND Rad/Onc Referring: Raphael Jolley PA-C/ Michael Britton MD Dx: Brain mets - GK consult * Telephone Encounter - Farideh Jiang - 02/06/2024 12:09 PM EST Order CONSULT TO NEUROSURGERY [[id number]] (Order [id number]) Patient Info Patient Name Sex Debby Hedrick ([id number]) Female 1965 Order Information Date and Time Department Ordering/Authorizing 02/02/2024 3:17 PM Raphael Atkinson Order Providers Authorizing Provider Encounter Provider Raphael Jolley PA-C Musser, Mindy M, PA-C Future Order Information Expires 02/01/25 Associated Diagnoses 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) [C71.1] Comments [facility] Reason for Exam Priority: Routine Dx: 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) [C71.1 (ICD-10-CM)] Comments: [facility] Order Questions Question Answer [facility] ADT-Related Order Information Priority and Order Details Priority Class Routine Sammy Internal Referral Order History Outpatient Date/Time Action Taken User Additional Information 02/02/24 1517 Sign Raphael Jolley PA-C Detailed Information Referral Reprint Requisition CONSULT TO NEUROSURGERY (Order#[id number]) on 02/02/24 documented in [facility] Telephone encounter Note * Telephone Encounter - Hilaria Webber APRN.CNP - 02/06/2024 12:21 PM EST Images from the original note were not included. Time Frame: EXPEDITE Provider: Yue / Lon / Mohsen / Argenis / Jacinto AND Rad/Onc Referring: Raphael Jolley PA-C/ Michael Britton MD Dx: Brain mets - GK consult [facility]11-26-2024 Telephone encounter Note* Telephone Encounter - Farideh Jiang - 02/06/2024 12:09 PM EST Order CONSULT TO NEUROSURGERY [[id number]] (Order [id number]) Patient Info Patient Name Sex Debby Hedrick ([id number]) Female 1965 Order Information Date and Time Department Ordering/Authorizing 02/02/2024 3:17 PM Raphael Atkinson Order Providers Authorizing Provider Encounter Provider Raphael Jolley PA-C Musser, Mindy M, PA-C Future Order Information Expires 02/01/25 Associated Diagnoses 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) [C71.1] Comments [facility] Reason for Exam Priority: Routine Dx: 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) [C71.1 (ICD-10-CM)] Comments: [facility] Order Questions Question Answer [facility] Epic access? Yes [facility] Brain Tumor ADT-Related Order Information Priority and Order Details Priority Class Routine Sammy Internal Referral Order History Outpatient Date/Time Action Taken User Additional Information 02/02/24 1517 Sign Raphael Jolley PA-C Detailed Information Referral Reprint Requisition CONSULT TO NEUROSURGERY (Order#[id number]) on 02/02/24 [facility]11-26-2024 Telephone encounter Note* Telephone Encounter - Mila Briscoe RN - 02/06/2024 9:45 AM EST I called and left a message on 's voicemail requesting a call back. Mila Briscoe RN [facility] Work Phone: 1(238) 643-976811-26-2024 Telephone encounter Note* Telephone Encounter - Kaylin Briseyda - 02/06/2024 8:56 AM EST Stephen Álvarez, Do you have an update with this patient? Thanks! Briseyda Ewing [facility]11-26-2024 Telephone encounter Note* Telephone Encounter - Raphael Jolley PA-C - 02/06/2024 8:50 AM EST Can we check on this? Nothing has been scheduled. Raphael Jolley PA-C [facility]11-22-2024 Telephone encounter Note* Telephone Encounter - Preeti Bourne - 02/02/2024 3:34 PM EST Patient Debby Hermosillo Patient prefers to do virtual at her home. new frontal lobe lesion. [facility]11-22-2024 Miscellaneous Notes* Telephone Encounter - Preeti Bourne - 02/02/2024 3:34 PM EST Patient Debby Hermosillo Patient prefers to do virtual at her home. new frontal lobe lesion. documented in this encounterSub[facility] Telephone encounter Note * Telephone Encounter - Preeti Bourne - 02/02/2024 3:32 PM EST Sent message to Preeti Moore with patient information.Also sent message to scheduling pool [facility]11-22-2024 Telephone encounter Note* Telephone Encounter - Raphael Jolley PA-C - 02/02/2024 3:14 PM EST Please refer patient to [facility] knife center for new frontal lobe lesion. I tried to message Dr. Turner, but she has not gotten back to me. THe patient is symptomatic and needs seen. Raphael Jolley PA-C [facility]11-21-2024 Telephone encounter Note* Telephone Encounter - Oswaldo Connor - 02/01/2024 7:50 AM EST Your seeing this patient 02/07/24 for lab/TX. Her Q6 week CBC, CMP was used 01/11. The rest of her orders we can use, but can you place new orders for those 2 tests? Thank you, Milagros Connor MLT [facility]11-21-2024 Miscellaneous Notes* Telephone Encounter - Oswaldo Connor - 02/01/2024 7:50 AM EST Your seeing this patient 02/07/24 for lab/TX. Her Q6 week CBC, CMP was used 01/11. The rest of her orders we can use, but can you place new orders for those 2 tests? Thank you, Milagros Connor MLT documented in this encounterSub[facility] Telephone encounter Note * Telephone Encounter - Mila Briscoe RN - 01/31/2024 4:34 PM EST Pt notified and is agreeable to this. Mila Briscoe RN [facility] Work Phone: 1([phone]) 935-484811-20-2024 Miscellaneous Notes* Telephone Encounter - Mila Briscoe RN - 01/31/2024 4:34 PM EST Pt notified and is agreeable to this. Mila Briscoe RN * Telephone Encounter - Raphael Jolley PA-C - 01/31/2024 1:26 PM EST I would recommend she does not drive until she is evaluated by Neurosurgery and treated for this brain lesion. Dex script sent. Raphael Jolley PA-C * Telephone Encounter - Mila Briscoe RN - 01/31/2024 12:56 PM EST Call placed to pt and results discussed [...] bruises on her body and she feels they'remost likely from the falls. Pt took her son to work a couple nights ago and ended up 5 miles away from their home and she didn't know where she was, how she got there, or how to get home. Pt also states she's had a terrible migraine for a couple of weeks and she's been taking migraine medicine withno relief. Pt c/o blurry vision, especially at night. Pt also admits to confusion often, not knowing where she's at or what she's doing. Notified pt that script for dex will be sent to her pharmacy, and that we are awaiting on a response from Dr Turner as to next steps. Pt aware we will be callingher as soon as we hear from Yue. MM: please sign pending script to go to [facility] Mila Briscoe RN * Telephone Encounter - Raphael Jolley PA-C - 01/31/2024 9:27 AM EST LM on VM for patient to call back to review recent MRI brain results which show small mass in rightfrontal lobe with vasogenic edema. Dr. Britton would like her started on Dexamethasone 4 mg BID and I am sending a message to Dr. Turner about getting her in for possible gamma knife radiosurgery. Please assess patient's current symptoms as well if she calls back. I also need to know which pharmacy to send Dex to. Raphael Jolley PA-C documented in this encounterSub[facility] Telephone encounter Note * Telephone Encounter - Sam Walton MA - 01/31/2024 2:32 PM EST The patient calls in for refills of [...] to send meds? Patient is almost out. [id number] Miscellaneous Notes* Telephone Encounter - Sam Walton MA - 01/31/2024 2:32 PM EST The patient calls in for refills of [...] Patient is almost out. documented in this encounterCox [id number] Telephone encounter Note* Telephone Encounter - Raphael Jolley PA-C - 01/31/2024 1:26 PM EST I would recommend she does not drive until she is evaluated by Neurosurgery and treated for this brain lesion. Dex script sent. Raphael Jolley PA-C [facility]11-20-2024 Telephone encounter Note* Telephone Encounter - Mila Briscoe RN - 01/31/2024 12:56 PM EST Call placed to pt and results discussed [...] bruises on her body and she feels they'remost likely from the falls. Pt took her son to work a couple nights ago and ended up 5 miles away from their home and she didn't know where she was, how she got there, or how to get home. Pt also states she's had a terrible migraine for a couple of weeks and she's been taking migraine medicine withno relief. Pt c/o blurry vision, especially at night. Pt also admits to confusion often, not knowing where she's at or what she's doing. Notified pt that script for dex will be sent to her pharmacy, and that we are awaiting on a response from Dr Turner as to next steps. Pt aware we will be callingher as soon as we hear from Yue. MM: please sign pending script to go to [facility] Kira Briscoe RN [facility]11-20-2024 Telephone encounter Note* Telephone Encounter - Raphael Jolley PA-C - 01/31/2024 9:27 AM EST LM on VM for patient to call back to review recent MRI brain results which show small mass in rightfrontal lobe with vasogenic edema. Dr. Britton would like her started on Dexamethasone 4 mg BID and I am sending a message to Dr. Turner about getting her in for possible gamma knife radiosurgery. Please assess patient's current symptoms as well if she calls back. I also need to know which pharmacy to send Dex to. Raphael Jolley PA-C [facility]11-12-2024 Telephone encounter Note* Telephone Encounter - Jessika Valerio - 01/23/2024 3:45 PM EST She is now scheduled for MRI on 01/26/24 at 1:00. [facility]11-12-2024 Miscellaneous Notes* Telephone Encounter - Jessika Valerio - 01/23/2024 3:45 PM EST She is now scheduled for MRI on 01/26/24 at 1:00. * Telephone Encounter - Angella Malloy RN - 01/23/2024 1:38 PM EST Spoke with pt. She is going to obtain Immodium and take as directed. She has compazine and Zofran, previously prescribed. Encouraged to take one, 1 hour prior to MRI, if continued nausea can take other medication 30 minutes prior to MRI. They are hoping to rescheduled to end of this week. Ariel : any further recommendations or changes to above? Angella Malloy RN * Telephone Encounter - Michael Britton MD - 01/23/2024 1:18 PM EST I'm not sure what she is requesting - would you mind calling her to clarify? documented in this encounterSub[facility] Telephone encounter Note * Telephone Encounter - Angella Malloy RN - 01/23/2024 1:38 PM EST Spoke with pt. She is going to obtain Immodium and take as directed. She has compazine and Zofran, previously prescribed. Encouraged to take one, 1 hour prior to MRI, if continued nausea can take other medication 30 minutes prior to MRI. They are hoping to rescheduled to end of this week. Ariel : any further recommendations or changes to above? Angella Malloy RN [facility]11-12-2024 Telephone encounter Note* Telephone Encounter - Michael Britton MD - 01/23/2024 1:18 PM EST I'm not sure what she is requesting - would you mind calling her to clarify? [facility]11-04-2024 Telephone encounter Note* Telephone Encounter - Jessika Valerio - 01/15/2024 9:53 AM EST Patient has re-scheduled her MRI again to 01-23-24 @ 1:00. [facility]11-04-2024 Miscellaneous Notes* Telephone Encounter - Jessika Valerio - 01/15/2024 9:53 AM EST Patient has re-scheduled her MRI again to 01-23-24 @ 1:00. * Telephone Encounter - Jessika Valerio - 01/12/2024 3:19 PM EDT MRI has been re-scheduled again to 01/15/24 @ 8:00. * Telephone Encounter - Mila Briscoe RN - 01/12/2024 3:10 PM EDT Racheal: can you get results of MRI at [place] please. She was going to have it on 01/09 Thanks Mila Briscoe RN * Telephone Encounter - Dulce Osman - 01/12/2024 3:04 PM EDT Images from the original note were not included. * [facility] 01/03/2024 12:59 PM EDT Patient has rescheduled her MRI again to 01-10-24 at 1:00 * Tele[facility] En[facility] - [facility] - 12/29/2023 3:12 PM EDT MRI was rescheduled to 01/03/24 @ 9am. * Telephone Encounter - Mila Briscoe RN - 12/29/2023 3:06 PM EDT Racheal: can you see if there's results on [facility]? Thanks Mila Briscoe, ALLYSSA * Telephone Encounter - Briseyda Ewing - 12/27/2023 2:17 PM EDT Patient has been scheduled for STAT MRI Brain tomorrow 12/27 @ 5 pm at [facility]. Briseyda Ewing documented in this encounterSub[facility] Telephone encounter Note * Telephone Encounter - [facility] Jessika Baca - 01/12/2024 3:19 PM EDT MRI has been re-scheduled again to 01/15/24 @ 8:00. [facility]11-01-2024 Telephone encounter Note* Telephone Encounter - Mila Briscoe RN - 01/12/2024 3:10 PM EDT Racheal: can you get results of MRI at [place] please. She was going to have it on 01/09 Thanks Mila Briscoe, ALLYSSA [facility] Work Phone: 1(257) [phone] Telephone encounter Note* Telephone Encounter - Dulce Osman - 01/12/2024 3:04 PM EDT Images from the original note were not included. [facility]11-01-2024 Instructions* Patient Instructions* Marina Castro - 01/12/2024 2:56 PM EDT Keep MRI Brain as scheduled on 01/15/2024 Mila Briscoe to call with results of PET and MRI RTC in 4 weeks for Keytruda C6 Labs same day May need to start Synthroid Continue potassium supplement daily documented in this encounterSub[facility] History of Present illness Narrative* Michael Britton MD - 01/12/2024 2:40 PM EDT Images from the original note were not included. NAME: Debby Hermosillo CLINIC NO.: [id number] DATE OF SERVICE: January 12, 2024 (Reba) Some elements in this clinic note that are critical to medical decision making have been carefully reviewed and included from a prior clinic note dated: December 27, 2023 (Reba) Referring Provider: Otoniel Adhikari MD Additional Clinicians involved in Debby [...] undergo continued close imaging surveillance. No significant thoracicadenopathy. A/P: No evidence of metastatic disease in [...] to posttherapy changes and healing. Attention on follow-upCT scan of the chest. Stable posttreatment changes [...] and reticular opacities, likely on the basis ofposttreatment change. No evidence of bulky intrathoracic lymphadenopathy. 07/18/2019 - PET/CT: NECK: NO FDG AVID NEOPLASTIC PROCESS.. CHEST: NO FDG AVID NEOPLASTIC PROCESS. 1.4 X 0.9 CM HYPOMETABOLIC RIGHT UPPER LOBE NODULE WITH ADJACENT PARENCHYMAL SCARRING LATERALLY, IMPROVED SINCE 01/09/2019. FINDINGS ARE COMPATIBLE WITH SATISFACTORY RESPONSE OF TREATED RIGHT UPPER LOBE NODULE POST CHEMORADIATION. 0.6 CM AND 0.4 CM FAINT RIGHTMIDDLE LOBE GROUNDGLASS ATTENUATION DENSITIES, STABLE SINCE 09/12/2017. [...] the brain scheduled for 01/14. Final reading oftoday's PET/CT are in process - on my initial view, I do not see any cause for concern. For the past 1.5 months, she has not had the strength to get back up after bending over. She endorses difficulty driving in the dark - recommended she follow up with her supervisor white sugar. Updated Visit, December 27, 2023: Debby returns for a follow up. She reports about 3 weeks ago, her found her asleep on thefloor but she does not remember how she got there. Her elbows had wounds indicative of a fall - healed now. She complains of buttock pain, similar to a pain she had in the past. I will order a PET/CTand MRI of the brain to evaluate her [...] mouth three times a day as needed forcough buprenorphine-naloxone (SUBOXONE) 8-2 mg film Dissolve under [...] neoplasm of lower lobe of right lung ([facility]) 11/15/2022 Neck pain Neuropathy unclear origin- 6 months? saw neurologist (Dr. Hearn- In [facility]); possible MS? Osteoporosis Pneumonia 06/2016 & 12/2016 Recurrent UTI 11/04/2021 Small cell lung cancer in adult ([facility]) 02/17/2017 Combined small cell carcinoma and squamous [...] which included preparing to see the patient, [id number] patient care, completing clinical documentation, obtaining and/or reviewing separately obtained history, performing a medically appropriate examination, counseling and educating the pat ient/family/caregiver, ordering medications, tests, or procedures, independently interpreting results (not separately reported), communicating results to the patient/family/caregiver, and care coordination (not separately reported). Michael Britton MD, CPE Hematology and Oncology Services Provided at: [place], [place] CC: Milton Madison MD documented in this encounterSub[facility]11[facility]24 [facility] History of Present illness Narrative* Kerri Sethi RN - 01/12/2024 12:45 PM EDT Radiology Service Progress Note DATE [...] 2024 TIME: 12:47 PM documented in this encounterSuburban [facility] Hospital [facility]11-01-2024 [facility]Ke[facility]-2024 [facility]10-[facility]-2024 Telephone encounter Note* [facility] 01/03/2024 12:59 PM EDT Patient has rescheduled her MRI again to 01-10-24 at 1:00 [facility]10-18-2024 Telephone encounter Note* Tele[facility] En[facility] - [facility] - 12/29/2023 3:12 PM EDT MRI was rescheduled to 01/03/24 @ 9am. [facility]10-18-2024 Telephone encounter Note* Telephone Encounter - Mila Briscoe RN - 12/29/2023 3:06 PM EDT Racheal: can you see if there's results on [facility]? Thanks Mila Briscoe RN [facility]10-16-2024 Telephone encounter Note* Telephone Encounter - Briseyda Ewing - 12/27/2023 2:17 PM EDT Patient has been scheduled for STAT MRI Brain tomorrow 12/27 @ 5 pm at [facility]. Briseyda Ewing [facility]10-16-2024 Instructions* Patient Instructions* Marina Castro - 12/27/2023 1:49 PM EDT Proceed keytruda today Start taking potassium supplement daily - rx sent MRI Brain stat PET/CT in 2 weeks RTC same day to review, no treatment RTC in 6 weeks for clinician, labs, treatment same day. May need to start Synthroid. documented in this encounterSuburban Community Hospital [facility]10-[facility] History of Present illness Narrative* Michael Britton MD - 12/27/2023 1:15 PM EDT Images from the original note were not included. NAME: Debby Hermosillo [facility] NO.: [id number] DATE OF SERVICE: December 27, 2023 (Reba) Some elements in this clinic note that are critical to medical decision making have been carefully reviewed and included from a prior clinic note dated: November 15, 2023 (Reba) Referring Provider: Otoniel Adhikari MD Additional Clinicians involved in Debby [...] undergo continued close imaging surveillance. No significant thoracicadenopathy. A/P: No evidence of metastatic disease in [...] to posttherapy changes and healing. Attention on follow-upCT scan of the chest. Stable posttreatment changes [...] and reticular opacities, likely on the basis ofposttreatment change. No evidence of bulky intrathoracic lymphadenopathy. 07/18/2019 - PET/CT: NECK: NO FDG AVID NEOPLASTIC PROCESS.. CHEST: NO FDG AVID NEOPLASTIC PROCESS. 1.4 X 0.9 CM HYPOMETABOLIC RIGHT UPPER LOBE NODULE WITH ADJACENT PARENCHYMAL SCARRING LATERALLY, IMPROVED SINCE 01/09/2019. FINDINGS ARE COMPATIBLE WITH SATISFACTORY RESPONSE OF TREATED RIGHT UPPER LOBE NODULE POST CHEMORADIATION. 0.6 CM AND 0.4 CM FAINT RIGHTMIDDLE LOBE GROUNDGLASS ATTENUATION DENSITIES, STABLE SINCE 09/12/2017. [...] weeks ago, her found her asleep on thefloor but she does not remember how she got there. Her elbows had wounds indicative of a fall - healed now. She complains of buttock pain, similar to a pain she had in the past. I will order a PET/CTand MRI of the brain to evaluate her [...] mouth three times a day as needed forcough buprenorphine-naloxone (SUBOXONE) 8-2 mg film Dissolve under [...] 6 months? saw neurologist (Dr. Hearn- In [facility]); possible MS? Osteoporosis Pneumonia 06/2016 & [...] which included preparing to see the patient, [id number]-[id number] patient care, completing clinical documentation, obtaining and/or reviewing separately obtained history, performing a medically appropriate examination, counseling and educating the pat ient/family/caregiver, ordering medications, tests, or procedures, independently interpreting results (not separately reported), communicating results to the patient/family/caregiver, and care coordination (not separately reported). Michael Britton MD, CPE Hematology and Oncology Services Provided at: [place], [place] Scribe Attestation: This note was scribed by Marina Castro on December 27, 2023 under the direction and supervision of Dr. Mihcael Britton. I attest that all of the information documented is correct to the best of myknowledge. Provider Attestation: I, Michael Britton MD, attest that all information documented by the above scribe is correct, and was supervised by me and under my direction. CC: Milton Madison MD documented in this encounterSuburban Community Hospital [facility]10-[facility]2024 Telephone encounter Note * Telephone Encounter - Barbara Pereira MA - 12/22/2023 11:[address] lab orders for appt on 12/26 if needed. Barbara Pereira MA [facility]10-11-2024 Miscellaneous Notes* Telephone Encounter - Barbara Pereira MA - 12/22/2023 11:[address] lab orders for appt on 12/26 if needed. Barbara Pereira MA documented in this encounterSuburban Community Hospital [facility]09-04-2024 History of Present illness Narrative* Michael Britton MD - 11/15/2023 2:00 PM EDT Images from the original note were not included. PATIENT NAME: Debby Hermosillo CLINIC NO.: [id number] DATE OF SERVICE: November 15, 2023 (Reba) Some elements in this clinic note that are critical to medical decision making have been carefully reviewed and included from a prior clinic note dated: October 03, 2023 (Andry) Referring Provider: Otoniel Adhikari MD Diagnosis: 1. Stage II A, [...] Carpal tunnel syndrome, bilateral Comment: s/p repair 2016 No date: Current smoker No date: DDD (degenerative disc disease), lumbar No date: GERD (gastroesophageal reflux disease) No date: Kidney stones 11/15/2022: Malignant neoplasm of lower lobe of right lung (HCC) No date: Neck pain No date: Neuropathy Comment: unclear origin- 6 months? saw neurologist (Dr. Hearn- In [facility]); possible MS? No date: Osteoporosis 06/2016 [...] 5' .433 (1.54m) Wt 81 lb 5.6 oz(36.9kg) SpO2 98% BMI 15.66 kg/(m^2). ECOG PERFORMANCE [...] which included preparing to see the patient, [id number]-jm-voio patient care, completing clinical documentation, obtaining and/or reviewing separately obtained history, performing a medically appropriate examination, counseling and educating the patient/family/caregiver, ordering medications, tests, or procedures, independently interpreting results (not separately reported), communicating results to the patient/family/caregiver, and care coordination (not separately reported). Michael Britton MD, CPE Hematology and Oncology Services Provided at: [place], [place] CC: Milton Madison MD documented in this encounter[facility] Instructions* Patient Instructions* Michael Britton MD - 11/15/2023 1:58 PM EDT Labs in 3 weeks : TSH, FT4 Proceed keytruda today RTC in 6 weeks for clinician, labs, treatment same day. May need to start Synthroid. documented in this encounterSub[facility]08-27[facility] Hospital Discharge instructions Patient Education 11/07/2023 10:28:53 Kidney Stones Kidney Stones Kidney stones are solid, rock-like deposits that form inside of the kidneys. The kidneys are a pairof organs that make urine. A kidney stone [...] the ribs (flank pain). Pain usually spreads (radiates)to the groin. Needing to urinate often or [...] Follow these instructions at home: Medicines Take wwpr-jkd-wimykzd and prescription medicines only as told by [...] provider. Document Revised: 06/08/2022 Document Reviewed: 06/08/2022 [employer] Patient Education 2022 Soundsupply. Follow Up Care 11/01/2022 10:36:17 With:JESSIKA RINCON PA-C, URL Address: [address] [place] [address] When: Unknown Comments:1 year w/ [facility] Telephone encounter Note* Telephone Encounter - Jessie Dill MA - 11/07/2023 11:57 AM EDT Patient has an appt on 11/15/23. Would you like labs, if so place orders (She is a transition of care). Jessie Dill MA [facility]08-27-[facility]24 Miscellaneous Notes* Telephone Encounter - Jessie Santos MA - 11/07/2023 11:57 AM EDT Patient has an appt on 11/15/23. Would you like labs, if so place orders (She is a transition of care). Jessie Dill MA documented in this encounterSub[facility]08-[facility]24 Telephone encounter Note * Telephone Encounter - Briseyda Ewing - 10/17/2023 11:07 AM EDT Patient is scheduled for 10/18 @ 1:20 pm in the [place] office with Dr. Guzman. Briseyda Ewing [facility]24 Miscellaneous Notes* Telephone Encounter - Briseyda Ewing - 10/17/2023 11:07 AM EDT Patient is scheduled for 10/18 @ 1:20 pm in the [place] office with Dr. Guzman. Briseyda Ewing * Telephone Encounter - Jessika Valerio - 10/03/2023 3:45 PM EDT Records faxed to [facility] [place] office. * Telephone Encounter - Briseyda Ewing - 10/03/2023 2:32 PM EDT Referral for Podiatry. Racheal/Ubaldo: Patient resides in [place]. Can we refer patient to [facility] and follow up? Thanks! Briseyda Ewing documented in this encounterSub[facility]07-23-[facility]24 Telephone encounter Note * Telephone Encounter - Jessika Valerio - 10/03/2023 3:45 PM EDT Records faxed to [facility] [place] office. [facility] History of Present illness Narrative* Mellisa Rincon RN - 10/03/2023 3:[address] Adhikari made aware via secure chat of patient's potassium= 3.1 today. Script written for Lasixand oral potassium due to edema in BLE but was not sure if Dr. Adhikari knew of the low potassium itself. Orders given for pt to receive KCl 20 mEq PO prior to discharge from clinic today. Mellisa Rincon, RN documented in this encounterSuburban [facility]07-[facility]-2024 Telephone encounter Note * Telephone Encounter - Briseyda Ewing - 10/03/2023 2:32 PM EDT Referral for Podiatry. Racheal/Ubaldo: Patient resides in [place]. Can we refer patient to [facility] and follow up? Thanks! Briseyda Kaylin [facility] History of Present illness Narrative* Otoniel Adhikari MD - 10/03/2023 2:06 PM EDT Images from the original note were not included. PATIENT NAME: Debby Hermosillo CLINIC NO.: [id number] ATTENDING PHYSICIAN: Otoniel Adhikari MD DATE OF SERVICE: October 03, [...] 6 months? saw neurologist (Dr. Hearn- In [facility]); possible MS? Osteoporosis Pneumonia 06/2016 & [...] 5' .433 (1.54m) Wt 83 lb 1.8 oz(37.7kg) SpO2 100% BMI 16.00 kg/(m^2). Wt 40.1 [...] Range Status 10/03/2023 10.4 % Final Abs Bastrop Date Value Ref Range Status 10/03/2023 0.71 [...] do not hesitate to contact me at [phone]. Otoniel Adhikari MD Hematology/Medical Oncology [facility] CC: Milton Madison MD I spent a total of 30 minutes on the date of the service which included preparing to see the patient, nkcw-ox-jpng patient care, completing clinical documentation, obtaining and/or reviewing separately obtained history, performing a medically appropriate examination, counseling and educating the pat ient/family/caregiver and ordering medications, tests, or procedures. documented in this encounterSuburban [facility]07-22-2024 Telephone encounter Note * Telephone Encounter - Mila Briscoe RN - 10/02/2023 9:20 AM EDT Message left with this information on pt's voicemail. Mila Briscoe RN [facility] Work Phone: [phone] Miscellaneous Notes* Telephone Encounter - Mila Briscoe RN - 10/02/2023 9:20 AM EDT Message left with this information on pt's voicemail. Mila Briscoe RN * Telephone Encounter - Mila Briscoe RN - 10/02/2023 9:19 AM EDT ----- Message from Otoniel Adhikari MD sent at 10/02/2023 8:48 AM EDT ----- Please call with stable CT documented in this encounterSuburban [facility] Hospital [facility]07-22-2024 Telephone encounter Note * Telephone Encounter - Mila Briscoe RN - 10/02/2023 9:19 AM EDT ----- Message from Otoniel Adhikari MD sent at 10/02/2023 8:48 AM EDT ----- Please call with stable CT [facility]-18[facility] History of Present illness Narrative* Kerri Sethi RN - 09/28/2023 7:45 AM EDT Radiology Service Progress Note DATE [...] DATE: September 28, 2023 TIME: 7:57 AM * Becky Ledezma RT(R) - 09/28/2023 7:45 AM EDT Radiology Service Progress Note [...] PATIENT PRESENTS WITH AN IMPLANTABLE OR ATTACHED PROM BURN OFF OPERATOR: No RADIOLOGY DEPARTMENT: CT; Exam(s) Completed: Chest Abdomen Pelvis PERIPHERAL IV DATA: Site assessment: Clean,Dry and Intact, Site disposition Discontinued SIGNED BY: RT Bhavana(R) September 28, 2023 8:42 AM documented in this encounterSuburban [facility] Hospital [facility]06-18-2024 Telephone encounter Note * Telephone Encounter - Mila Briscoe RN - 08/29/2023 2:11 PM EDT Please sign pending lab orders. Thanks Mila Briscoe RN [facility]-18-2024 Miscellaneous Notes* Telephone Encounter - Mila Briscoe RN - 08/29/2023 2:11 PM EDT Please sign pending lab orders. Thanks Mila Briscoe RN documented in this encounterSuburban [facility]06-17-2024 Telephone encounter Note * Telephone Encounter - Chani Connors - 08/28/2023 12:07 PM EDT Patient is scheduled for labwork on 08/28 at 2pm. Mary - For possible treatment scheduling. Thanks, Chani Connors [facility]-17-2024 Miscellaneous Notes* Telephone Encounter - Chani Connors - 08/28/2023 12:07 PM EDT Patient is scheduled for labwork on 08/28 at 2pm. Mary - For possible treatment scheduling. Thanks, Chani Connors * Telephone Encounter - Eugenie Corrales RN - 08/28/2023 9:26 AM EDT Iron studies pended for you to sign. PSS-please schedule pt for lab only appointment. * Telephone Encounter - Otoniel Adhikari MD - 08/24/2023 8:32 AM EDT Also can we check her iron studies * Telephone Encounter - Otoniel Adhikari MD - 08/23/2023 2:39 PM EDT I send the Olanzapine for her already * Telephone Encounter - Eugenie Corrales RN - 08/22/2023 2:20 PM EDT Pt forgot to tell you that she has noticed recently that her hair is falling out in handfuls. Shewanted you to know that she's had a b12 deficiency in the past. Pt is also expecting a script for appetite stimulant that you talked about. documented in this encounterSuburban Community Hospital [facility]06-17-2024 Telephone encounter Note * Telephone Encounter - Eugenie Corrales RN - 08/28/2023 9:26 AM EDT Iron studies pended for you to sign. PSS-please schedule pt for lab only appointment. [facility] Telephone encounter Note* Telephone Encounter - Otoniel Adhikari MD - 08/24/2023 8:32 AM EDT Also can we check her iron studies [facility]2024 Telephone encounter Note* Telephone Encounter - Otoniel Adhikari MD - 08/23/2023 2:39 PM EDT I send the Olanzapine for her already [facility]06-[facility]-2024 Telephone encounter Note* Telephone Encounter - Eugenie Corrales RN - 08/22/2023 2:20 PM EDT Pt forgot to tell you that she has noticed recently that her hair is falling out in handfuls. Shewanted you to know that she's had a b12 deficiency in the past. Pt is also expecting a script for appetite stimulant that you talked about. [facility] History of Present illness Narrative* Salyl Blanco RN - 08/22/2023 2:04 PM EDT Patient forgot to mention to Dr Adhikari that she has been losing her hair by the hand full. Discussed with call center team leader, Fabiano Corrales RN who will send a phone enc to notify provider Sally Blanco RN documented in this encounterSuburban Community Hospital [facility]06-11-2024 History of Present illness Narrative* Otoniel Adhikari MD - 08/22/2023 1:48 PM EDT Images from the original note were not included. PATIENT NAME: Debby Hermosillo CLINIC NO.: [id number] ATTENDING PHYSICIAN: Otoniel Adhikari MD DATE OF SERVICE: August 22, [...] neoplasm of lower lobe of right lung ([facility]) 11/15/2022 Neck pain Neuropathy unclear origin- 6 months? saw neurologist (Dr. Hearn- In [facility]); possible MS? Osteoporosis Pneumonia 06/2016 & 12/2016 Recurrent UTI 11/04/2021 Small cell lung cancer in adult ([facility]) 02/17/2017 Combined small cell carcinoma and squamous [...] 5' .433 (1.54m) Wt 85 lb 1.6 oz(38.6kg) SpO2 97% BMI 16.38 kg/(m^2). Wt 40.1 [...] Range Status 08/22/2023 9.9 % Final Abs Bastrop Date Value Ref Range Status 08/22/2023 0.71 [...] do not hesitate to contact me at [phone]. Otoniel Adhikari MD Hematology/Medical Oncology [facility] CC: Milton Madison MD I spent a total of 30 minutes on the date of the service which included preparing to see the patient, twov-ww-nzjo patient care, completing clinical documentation, obtaining and/or reviewing separately obtained history, performing a medically appropriate examination, counseling and educating the pat ient/family/caregiver and ordering medications, tests, or procedures. documented in this encounterSuburban [facility]04-30-2024 History of Present illness Narrative* Raphael Jolley PA-C - 07/11/2023 2:00 PM EDT Images from the original note were not included. PATIENT NAME: Debby Gann Hermosillo [facility] NO.: [id number] ATTENDING PHYSICIAN: Otoniel Adhikari MD DATE OF SERVICE: July 11, 2023 (Elements copied from Dr. Adhikari's note dated June 20, 2023, have been reviewed and updated whereappropriate, and all reflect current assessment and medical [...] 6 months? saw neurologist (Dr. Hearn- In [facility]); possible MS? Osteoporosis Pneumonia 06/2016 & [...] Range Status 07/11/2023 10.3 % Final Abs Bastrop Date Value Ref Range Status 07/11/2023 0.60 [...] Treatment today and return in 6 weeks. Raphael Jolley PA-C I spent a total of 20 minutes on the date of the service which included preparing to see the patient, jzng-yl-nysk patient care, completing clinical documentation, performing a medically appropriate examination, counseling and educating the patient/family/caregiver, ordering medications, tests, or p rocedures, independently interpreting results (not separately reported), and communicating results to the patient/family/caregiver. documented in this encounterSuburban [facility]04-12-2024 Miscellaneous Notes* Telephone Encounter - Otoniel Adhikari MD - 06/23/2023 12:11 PM EDT Thanks * Telephone Encounter - Otoniel Adhikari MD - 06/23/2023 11:46 AM EDT Can we start Abx? Thanks * Telephone Encounter - Raphael Jolley PA-C - 06/23/2023 11:40 AM EDT Ideally we would do a urinalysis, culture and sensitivity, but with it being the weekend, she can start an antibiotic, but if her symptoms worsen, or if she develops fevers or flank pain she will need to go to ER. Raphael Jolley PA-C documented in this encounterSub[facility]04-09-2024 History of Present illness Narrative* Otoniel Adhikari MD - 06/20/2023 1:37 PM EDT Images from the original note were not included. PATIENT NAME: Debby Hermosillo CLINIC NO.: [id number] ATTENDING PHYSICIAN: Otoniel Adhikari MD DATE OF SERVICE: June 20, 2023 Some of the elements of this note have been copied from my previous progress note dated 03/08/2023.All the information has been reviewed carefully. Dear [...] 6 months? saw neurologist (Dr. Hearn- In [facility]); possible MS? Osteoporosis Pneumonia 06/2016 & [...] Range Status 06/20/2023 10.5 % Final Abs Bastrop Date Value Ref Range Status 06/20/2023 0.70 [...] do not hesitate to contact me at [phone]. Otoniel Adhikari MD Hematology/Medical Oncology [facility] CC: Milton Madison MD I spent a total of 30 minutes on the date of the service which included preparing to see the patient, incs-bo-lzca patient care, completing clinical documentation, obtaining and/or reviewing separately obtained history, performing a medically appropriate examination, counseling and educating the pat ient/family/caregiver and ordering medications, tests, or procedures. documented in this encounterSuburban [facility]04-05-2024 Miscellaneous Notes* Telephone Encounter - Mila Briscoe RN - 06/16/2023 11:24 AM EDT Pt notified of results Mila Briscoe RN * Telephone Encounter - Mila Briscoe RN - 06/16/2023 11:23 AM EDT ----- Message from Otoniel Adhikari MD sent at 06/15/2023 11:48 PM EDT ----- Call with negative PET documented in this encounterSuburban [facility] Hospital [facility]04-04-2024 Miscellaneous Notes* Telephone Encounter - Mila Briscoe RN - 06/15/2023 1:36 PM EDT Pt notified of results Mila Briscoe RN * Telephone Encounter - Mila Briscoe RN - 06/15/2023 1:36 PM EDT ----- Message from Raphael Jolley PA-C sent at 06/15/2023 12:33 PM EDT ----- Please call with negative PET documented in this encounterSub[facility]04-03-2024 History of Present illness Narrative* Kerri Sethi RN - 06/14/2023 12:00 PM EDT Radiology Service Progress Note [...] DATE: June 14, 2023 TIME: 11:59 AM * Aayush Whitten, RT(R) - 06/14/2023 12:00 PM EDT RADIOLOGY SERVICE PROGRESS NOTE SERVICE DATE: 06/14/2023 [...] PATIENT PRESENTS WITH AN IMPLANTABLE OR ATTACHED PROM BURN OFF OPERATOR: No IV SITE: lt ac POST EXAM PIV STATUS: Discontinued PROCEDURE TYPE: NM INJECT: PET/CT BODY SCAN. 6.9 mCi F18 FDG. No other medications given.. ADMINISTRATION TIME: 1200 PATIENT DISCHARGED TO: Ambulatory patient, left AL department area. A Diagnostic radioactive procedure has taken place, with no further precautions necessary other than routine body substance precautions. More information regarding radiation safety can be found usingthis link: [email or web address]%[email or web address]%[email or web address] SIGNATURE: CABRERA Gomez) PATIENT NAME: Debby Hermosillo DATE: June 14, 2023 TIME: 12:07 PM PAGER/CONTACT #: documented in this encounterSuburban [facility] Hospital [facility]03-19-2024 History of Present illness Narrative* Raphael Jolley PA-C - 05/30/2023 1:30 PM EDT Images from the original note were not included. PATIENT NAME: Debby Hermosillo [facility] NO.: [id number] ATTENDING PHYSICIAN: Otoniel Adhikari MD DATE OF SERVICE: May 30, 2023 (Elements copied from my note dated May 09, 2022, have been reviewed and updated where appropriate, and all reflect current assessment and medical decision making during today's encounter, 2023) CC: Follow up Diagnosis: 1. Stage [...] This happened before and she had a positivePETscan in that area in December 2022 Otherwise she tolerating treatment without rash, itching, diarrhea or shortness of breath. She did have some vomiting of mucus this morning and happens about once a week. This has been goingon for months. PAST MEDICAL HISTORY Diagnosis Date [...] 6 months? saw neurologist (Dr. Hearn- In [facility]); possible MS? Osteoporosis Pneumonia 06/2016 & [...] 5' .433 (1.54m) Wt 87 lb 4.8 oz(39.6kg) SpO2 99% BMI 16.81 kg/(m^2). ECOG PERFORMANCE [...] Range Status 05/30/2023 8.6 % Final Abs Bastrop Date Value Ref Range Status 05/30/2023 0.61 [...] 3 weeks for PET, treatment and labs Raphael Jolley PA-C I spent a total of 30 minutes on the date of the service which included preparing to see the patient, zqis-ma-zjvk patient care, completing clinical documentation, obtaining and/or reviewing separately obtained history, performing a medically appropriate examination, counseling and educating the pat ient/family/caregiver, ordering medications, tests, or procedures, independently interpreting results (not separately reported), and communicating results to the patient/family/caregiver. documented in this encounterSuburban Community Hospital [facility]03-19-2024 Nurse Note* Jessie Santos MA - 05/30/2023 1:21 PM EDT Patient states that she had a fall a few days ago she did land on her bed, she was falling backwards. She sates her balance has been off. Jessie Delgado MA documented in this encounterSuburban Community Hospital & [facility]02-27-2024 History of Present illness Narrative* Raphael Jolley PA-C - 05/09/2023 2:23 PM EST Images from the original note were not included. PATIENT NAME: Debby Hermosillo CLINIC NO.: [id number] ATTENDING PHYSICIAN: Otoniel Adhikari MD DATE OF SERVICE: April 19, [...] 6 months? saw neurologist (Dr. Hearn- In [facility]); possible MS? Osteoporosis Pneumonia 06/2016 & [...] Range Status 05/09/2023 12.7 % Final Abs Bastrop Date Value Ref Range Status 05/09/2023 0.85 [...] in 3 weeks for treatment and labs Raphael Jolley PA-C CC: Milton Madison MD documented in this encounterSuburban Community Hospital [facility]02-23-2024 Miscellaneous Notes* Telephone Encounter - Mila Briscoe RN - 05/05/2023 2:13 PM EST Pt notified of negative MRI results Mila Briscoe RN documented in this encounterSuburban Community Hospital & [facility]12-20-2023 History of Present illness Narrative* Yue Alcocer RN - 03/01/2023 12:45 PM EST Radiology Service Progress Note DATE OF [...] Left antecubital site with a Angio cath: 24gauge. IV SITE APPEARANCE: Clean,Dry and Intact SIGNATURE: Yue Alcocer RN PATIENT NAME: Debby Hermosillo DATE: March 01, 2023 TIME: 12:57 PM * Becky Ledezma, RT(R) - 03/01/2023 12:45 PM EST RADIOLOGY SERVICE PROGRESS NOTE SERVICE DATE: 03/01/2023 SERVICE TIME: 1:33 PM PATIENT IDENTITY VERIFICATION COMPLETED USING TWO (2) STANDARD IDENTIFIERS: Name and Date of confirmed by patient verbally POST EXAM PIV STATUS: Discontinued PROCEDURE TYPE: NM INJECT: PET/CT BODY SCAN. 6.3 mCi F18 FDG. No other medications given.. ADMINISTRATION TIME: 1258 PATIENT DISCHARGED TO: Ambulatory patient, left AL department area. A Diagnostic radioactive procedure has taken place, with no further precautions necessary other than routine body substance precautions. More information regarding radiation safety can be found usingthis link: [email or web address]%20Nuclear%[email or web address] SIGNATURE: Becky Ledezma RT(R) PATIENT NAME: Debby Hermosillo DATE: March 01, 2023 TIME: 1:33 PM PAGER/CONTACT #: documented in this encounterSuburban Community Hospital [facility]12-06-2023 History of Present illness Narrative* Otoniel Adhikari MD - 02/15/2023 1:44 PM EST Images from the original note were not included. PATIENT NAME: Debby Hermosillo CLINIC NO.: [id number] ATTENDING PHYSICIAN: Otoniel Adhikari MD DATE OF SERVICE: February 15, [...] 6 months? saw neurologist (Dr. Hearn- In [facility]); possible MS? Osteoporosis Pneumonia 06/2016 & [...] Range Status 01/25/2023 6.1 % Final Abs Bastrop Date Value Ref Range Status 01/25/2023 0.40 [...] do not hesitate to contact me at [phone]. Otoniel Adhikari MD Hematology/Medical Oncology [facility] CC: Milton Madison MD I spent a total of 30 minutes on the date of the service which included preparing to see the patient, ijao-gd-nity patient care, completing clinical documentation, obtaining and/or reviewing separately obtained history, performing a medically appropriate examination, counseling and educating the pat ient/family/caregiver and ordering medications, tests, or procedures. documented in this encounterSuburban Community Hospital [facility]11-15-2023 History of Present illness Narrative* Raphael Jolley PA-C - 01/25/2023 2:00 PM EST Images from the original note were not included. PATIENT NAME: Debby Gann [facility] NO.: [id number] ATTENDING PHYSICIAN: Otoniel Adhikari MD DATE OF SERVICE: Jan 25, 2023 (Elements copied from my note dated January 05, 3032, have been reviewed and updated where appropriate, and all reflect current assessment and medical decision making during today's encounter, [id number]) CC: Follow up [facility] Diagnosis: 1. Stage II A, T2a, N1, [...] symptoms but no fever, chills or flank pain.She is also fatigued, but otherwise is doing [...] 6 months? saw neurologist (Dr. Hearn- In [facility]); possible MS? Osteoporosis Pneumonia 06/2016 & [...] 5' .433 (1.54m) Wt 81 lb 6.4 oz(36.9kg) SpO2 100% BMI 15.67 kg/(m^2). ECOG PERFORMANCE [...] Range Status 01/25/2023 6.1 % Final Abs Bastrop Date Value Ref Range Status 01/25/2023 0.40 [...] in 3 weeks for her next cycle. Raphael Jolley PA-C CC: Milton Madison MD documented in this encounterSuburban Community Hospital [facility]11-02-2023 Evaluation note* Encounter Date Diagnosis Assessment Notes Treatment Notes Treatment Clinical Notes Jan, Discoloration of skin of finger [...] aspect of microvascular disease due to her yearsof smoking. This was discussed with her at [...] if any issues or concerns arise. Jan, urrent every day smoker (ICD-10 - F17.200)Discussed the health risks associated with tobacco smoking. Patient understands her risks and is wor tushar hard on her smoking cessation journey. [employer] Other 11-01-2023 Miscellaneous Notes* Telephone Encounter - Yudi Vega - 01/11/2023 10:06 AM EDT Called [facility] office. Patient is scheduled to see [...] vascular now to schedule and appointment. Mila Briscoe, RN * Telephone Encounter - Mila Briscoe [...] Vega - 01/09/2023 8:57 AM EDT Called [facility] office. They have called and left pt messages on 01/04 and 01/06 to call theiroffice to get scheduled. Their event coordinator will call patient tomorrow which will be their 3rd attempt, if patient does not answer, they will close this referral. Yudi Chapa * Telephone Encounter - Yudi Vega - 01/04/2023 10:27 AM EDT Called [facility] office. They have received this referral and they will be calling patient soonto get scheduled. Yudi Chapa * Telephone Encounter - Jessika Valerio - 01/02/2023 2:37 PM EDT Records faxed to [facility]. * Telephone Encounter - Yudi Vega - 01/02/2023 2:11 PM EDT Racheal: Information ready for you. Yudi Guerrero Pss * Telephone Encounter - Raphael Jolley PA-C - 01/02/2023 1:55 PM EDT [...] to go to ER. Referal order signed Raphael Jolley PA-C * Telephone Encounter - Mila [...] and it's been like this ever since. Raphael assessed pt's finger as well. Pt notified that we will be referring her to vascular so they can assess this further. Pt notified that she needs to proceed to the ER urgently with any pain or blackening that lighten up with movement. Verbalized understanding. MM: please sign pending referral. PSS: pt prefers to be seen in [place]. Thanks Mila Briscoe RN documented in this encounterSub[facility]10[facility]30[facility]23 Miscellaneous Notes* Telephone Encounter - Mila [...] protocol. Mila Briscoe RN documented in this encounterSuburban Community Hospital & [facility]10-25-2023 History of Present illness Narrative* Raphael Jolley PA-C - 01/04/2023 1:22 PM EDT Images from the original note were not included. PATIENT NAME: Debby Gann [facility] NO.: [id number] ATTENDING PHYSICIAN: Otoniel Adhikari MD DATE OF SERVICE: January 04, [...] 6 months? saw neurologist (Dr. Hearn- In [facility]); possible MS? Osteoporosis Pneumonia 06/2016 & [...] Range Status 01/04/2023 11.4 % Final Abs Bastrop Date Value Ref Range Status 01/04/2023 0.97 [...] in 3 weeks for her next cycle. Raphael Jolley PA-C CC: Milton Madison MD documented in this encounterSuburban Community Hospital & [facility]10-24-2023 Miscellaneous Notes* Telephone Encounter - Hanh Chacon - 01/03/2023 11:34 AM EDT Patient has an OTV appointment on 01/04. Labs done 12/27. Please place lab orders if interested. Hanh Chacon documented in this encounterSuburban Community Hospital & [facility]10-23-2023 History of Present illness Narrative* Becky [...] [id number] PATIENT DISCHARGED TO: Ambulatory patient, left AL department area. A Diagnostic radioactive procedure has taken place, with no further precautions necessary other than routine body substance precautions. More information regarding radiation safety can be found usingthis link: [email or web address] 20Diagnostic%20Nuclear%20Medicine%20Procedures.pdf SIGNATURE: RT Bhavana(R) PATIENT NAME: Debby Hermosillo DATE: January 02, 2023 TIME: 1:42 PM PAGER/CONTACT #: documented in this encounterSuburban Community Hospital & [facility]10-23-2023 History of Present illness Narrative* Mila [...] N/A Mila Briscoe RN documented in this encounterSuburban Community Hospital [facility]10-02-2023 Miscellaneous Notes* Telephone Encounter - Jessika Lange RN - 12/12/2022 8:14 AM EDT Can we get this patient schedule per Dr. Adhikari's message. Then make patient aware. \ Thanks, Jessika Lange RN * Telephone Encounter - Otoniel Adhikari MD - 12/09/2022 4:40 PM EDT Can she be scheduled to see me sometime next week please. Thanks documented in this encounterSuburban Community Hospital & [facility]09-13-2023 NoteHNO ID: [id number] Author: Jose Rafael Fernaneds APRN.MULTIGRAPH OPERATOR Service: ? Author Type: Nurse Practitioner Type: Progress Notes Filed: 11/23/2022 4:18 PM Note Text: [facility] - OUTPATIENT THORACIC SURGERY CLINIC NOTE PT NAME: Debby Gann [facility] NO: [id number] THORACIC SURGEON: Evette Walden M.D. DATE OF SERVICE: 11/23/2022 PRINCIPAL [...] with radiation back in 2018 referred by Otoniel Adhikari MD for an opinion regarding management [...] tube site suture. She has resumed her CONE TENDER suboxone. Denies any SOB, lightheadedness, or dizziness. [...] activity as tolerated Jose Rafael Fernandes APRN, [facility]09-13-2023 History of Present illness Narrative* Jose Rafael Fernandes APRN.[facility] - 11/23/2022 12:49 PM EDT [facility] - OUTPATIENT THORACIC SURGERY CLINIC NOTE PT NAME: Debby Hermosillo [facility] NO: [id number] THORACIC SURGEON: Evette Walden M.D. DATE OF SERVICE: 11/23/2022 PRINCIPAL [...] with radiation back in 2018 referred by Otoniel Adhikari MD for an opinion regarding management [...] tube site suture. She has resumed her CONE TENDER suboxone. Denies any SOB, lightheadedness, or dizziness. [...] Position: Sitting, BP Cuff Size: Small Adult) [id number] Temp 36.1 C (96.9 F) (Temporal) Resp [...] activity as tolerated Jose Rafael Fernandes APRN, MULTIGRAPH OPERATOR documented in this encounterSuburban Community Hospital & [facility]09-01-2023 History of Present illness Narrative* Chris [...] procedure: R VATS + wedge resection Surgeon: Evette Walden Scheduled date: 11/15/2022 HPI: 57 year [...] 6 months? saw neurologist (Dr. Hearn- In [facility]); possible MS? Osteoporosis Pneumonia 06/2016 & 12/2016 Recurrent UTI 11/04/2021 Small cell lung cancer in adult ([facility]) 02/17/2017 Combined small cell carcinoma and squamous [...] any questions regarding this interpretation, please call [phone]. If you are unable to reach us at the number above, please feel free to contact [facility] at [phone]. Assessment No problem-specific Assessment & Plan notes [...] and consent discussed: yes. Patient / Responsible Alliance Party agrees to proceed: yes Patient / Surrogate agrees to blood products: Yes Instructions Given to Patient: Instructions located in the after visit summary. Patient given verbal and written preop instructions and voices comprehension and compliance. Signature: Ana Quigley MD Patient Name: Debby Hermosillo Date: November 11, 2022 Time: 11:25 AM Pager/Contact #: documented in this encounterSuburban Community Hospital & [facility]09-01-2023 History of Present illness Narrative* Evette Walden MD - 11/11/2022 2:20 PM EDT [...] on treatment options and the subsequent plan. Evette Walden MD CHART COPY DO NOT DISCARD [...] instructions. . Last clinic note 09/21/2022 per Evette Walden M.D. Chief Complaint: New RLL nodule [...] ECG Risk, benefits, and alternatives discussed per Evette Walden M.D. H&P 11/11/[address] Walden Films 10/31/2022 CCT Jessika Dimas, RN PHYSICAL EXAM BP 144/86 Pulse 97 [...] gross focal neurologic deficits documented in this encounterSuburban Community Hospital & [facility]08-22-2023 Hospital Discharge instructions Patient Education 11/01/2022 [...] include: ?8 oz (237 mL) of milk, ldxolqh-oymukzpvcsvh-nmqlr milk, and calcium- fortifiedfruit juice. Calcium-fortified means [...] ?Spinach (cooked), rhubarb, beets, sweet potatoes, and Gabonese chard. ?Peanuts. ?Potato chips, barbadian fries, and baked potatoes with skin on. ?Nuts and nut products. ?Chocolate. If you regularly take a diuretic medicine, make sure to eat at least 1 or 2 servings of fruits or vegetables that are high in potassium each day. These include: ?Avocado. ?Banana. ?[place], prune, carrot, or tomato juice. ?Baked potato. [...] magnesium, fish oil, or vitamin B6. Take vbng-nhr-hozytci and prescription medicines only as told by [...] Casseroles. Pizza. Lasagna. Frozen meals. Potato chips. [place] Citizen fries. The items listed above may not [...] provider. Document Revised: 11/08/2021 Document Reviewed: 11/08/2021 [employer] Patient Education 2022 Soundsupply. Follow Up Care 05/04/2022 11:31:31 With:JESSIKA RINCON PA-C, URL Address: [address] [place] [address] [place] [address] When:Within 1 Year(s) Comments:w/[employer] [facility] 08-21-2023 History of Present illness [...] 31, 2022 9:18 AM documented in this encounterSuburban Community Hospital & [facility]07-12-2023 NoteHNO ID: [id number] Author: Evette Walden MD Service: ? 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 [facility] STAFF PHYSICIAN NOTE OF PERSONAL [...] management of the patient's care. 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 saw neurologist (Dr. Hearn- In [facility]); possible MS? 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 [facility] STAFF PHYSICIAN NOTE OF PERSONAL [...] management of the patient's care. STAFF PHYSICIAN: Evette Walden MD DATE OF SERVICE: September 21, 2022 TIME OF SERVICE: 4:39 PM Impression: Debby Hermosillo is a 57 year old White female with PMH of Stage II combined small celland SCC of the RUL treated with 5 cycles of carboplatin and topside combined with radiation back [id number] referred by Otoniel Adhikari MD for an opinion regarding management [...] with radiation back in 2017 referred by Otoniel Adhikari MD for an opinion regarding management [...] 6 months? saw neurologist (Dr. Hearn- In [facility]); possible MS? Osteoporosis Pneumonia 06/2016 & [...] personally performed by: myself SIGNATURE: Jose Rafael Fernandes, KYLEIGH.MULTIGRAPH OPERATOR DATE of SERVICE: 09/21/2022 TIME of SERVICE: 1:10 PM documented in this encounterSuburban Community Hospital & [facility]07-12-2023 History of Present illness Narrative* Yen Dailey, BACK HOE MACHINE OPERATOR - 09/21/2022 1:50 PM EDT PULM FUNCTION SMARTBLOCK: Provider: Evette Walden MD Assisting Tech: Yen Dailey BACK HOE MACHINE OPERATOR Spirometry: 1 DLCO: 1 documented in this [facility]07-10-2023 Miscellaneous Notes* Telephone Encounter - Becky Olivares RN - 09/19/2022 4:32 PM EDT Pt notified and verbalizes understanding. Becky Olivares RN * Telephone Encounter - Becky Olivares RN - 09/19/2022 4:32 PM EDT ----- Message from tOoniel Adhikari MD sent at 09/19/2022 10:49 AM EDT ----- Call with negative MRI documented in this encounterSuburban Community Hospital & [facility]07-08-2023 History of Present illness Narrative* Pamela [...] 17, 2022 3:16 PM documented in this encounterSuburban Community Hospital & [facility]06-07-2023 History of Present illness Narrative* Otoniel Adhikari MD - 08/17/2022 11:43 AM EDT Images from the original note were not included. PATIENT NAME: Debby Hermosillo [facility] NO.: [id number] ATTENDING PHYSICIAN: Otoniel Adhikari MD DATE OF SERVICE: August 17, [...] 6 months? saw neurologist (Dr. Hearn- In [facility]); possible MS? Osteoporosis Pneumonia 06/2016 & [...] Range Status 07/25/2022 8.6 % Final Abs Bastrop Date Value Ref Range Status 07/25/2022 0.85 [...] stage IV disease and will present at [facility] next week and discuss. Will reach out to the patient after the TB [employer]ant 360 today as well. See back in 1 week Thank you for the kind referral. If there are any questions and or concerns please do not hesitate to contact me at [phone]. Otoniel Adhikari MD Hematology/Medical Oncology [facility] [place] CC: Milton Madison MD I spent a total of 30 minutes on the date of the service which included preparing to see the patient, rfmv-fi-ncfq patient care, completing clinical documentation, obtaining and/or reviewing separately obtained history, performing a medically appropriate examination, counseling and educating the pat ient/family/caregiver and ordering medications, tests, or procedures. documented in this encounterSuburban Community Hospital & [facility]05-26-2023 History of Present illness Narrative* Becky [...] 05, 2022 7:57 AM documented in this encounterSuburban Community Hospital & [facility]05-10-2023 History of Present illness Narrative* Otoniel Adhikari MD - 07/20/2022 1:54 PM EDT Images from the original note were not included. PATIENT NAME: Debby Hermosillo CLINIC NO.: [id number] ATTENDING PHYSICIAN: Otoniel Adhikari MD DATE OF SERVICE: July 20, [...] 6 months? saw neurologist (Dr. Hearn- In [facility]); possible MS? Osteoporosis Pneumonia 06/2016 & [...] Range Status 06/29/2022 7.7 % Final Abs Bastrop Date Value Ref Range Status 06/29/2022 0.64 <0.87 k/uL Final Eosinophils % Date Value Ref Range Status 06/29/2022 1.0 % Final Abs Eosin Date Value Ref Range Status 06/29/2022 0.08 <0.46 k/uL Final Basophils % Date Value Ref Range Status 06/29/2022 0.2 % Final Abs Baso Date Value Ref Range Status 06/29/2022 <0.03 <0.11 k/uL Final PATH: Asúl biopsy February 2017: Right lung, upper lobe [...] do not hesitate to contact me at [phone]. Otoniel Adhikari MD Hematology/Medical Oncology [facility] CC: Milton Madison MD I spent a total of 30 minutes on the date of the service which included preparing to see the patient, ilzv-bc-ogpp patient care, completing clinical documentation, obtaining and/or reviewing separately obtained history, performing a medically appropriate examination, counseling and educating the pat ient/family/caregiver and ordering medications, tests, or procedures. documented in this encounterSuburban Community Hospital & [facility]05-05-2023 History of Present illness Narrative* Yue [...] 1206 PATIENT DISCHARGED TO: Ambulatory patient, left AL department area. A Diagnostic radioactive procedure has taken place, with no further precautions necessary other than routine body substance precautions. More information regarding radiation safety can be found usingthis link: [email or web address]%20Medicine%[email or web address] SIGNATURE: RT Bhavana(R) PATIENT NAME: Debby Hermosillo DATE: July 15, 2022 TIME: 12:10 PM PAGER/CONTACT #: documented in this encounterSuburban Community Hospital & [facility]04-25-2023 Miscellaneous Notes* Telephone Encounter - Mila Briscoe RN - 07/05/2022 2:50 PM EDT Pt notified of recommendations and is agreeable to plan. Pt is scheduled for PET on 07/15. Mila Briscoe RN * Telephone Encounter - Mila Briscoe RN - 07/05/2022 2:39 PM EDT ----- Message from Otoniel Adhikari MD sent at 07/05/2022 7:39 AM EDT ----- Regarding: update [Lease let her know that I presented at the TB at [facility] and will await a PET and if PET negatve theyrecommemded an EBUS and navigational biopsy at [facility] if she is agreeable. 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 Consultation request/referral by: Otoniel Adhikari/ tumor board Reviewed by: MD Dre Weaver MD July 05, 2022 8:04 AM Addendum: CBC with diff: WBC 8.29 06/29/2022 RBC 3.43 06/29/2022 Hemoglobin 12.2 06/29/2022 Hematocrit 36.7 06/29/2022 MCV 107.0 06/29/2022 MCH 35.6 06/29/2022 MCHC 33.2 06/29/2022 RDW-CV 12.9 06/29/2022 Platelet Count 159 06/29/2022 MPV 9.0 06/29/2022 Neut% 72.2 06/29/2022 Lymph% 18.5 06/29/2022 Bastrop% 7.7 06/29/2022 Eosin% 2.0 02/11/2021 Baso% 0.2 06/29/2022 Abs Neut (ANC) 5.99 06/29/2022 Abs Lym 0.86 06/20/2017 Abs Bastrop 0.64 06/29/2022 Abs Eosin 0.08 06/29/2022 Abs [...] - 0.96 mg/dL Final documented in this encounterSuburban Community Hospital & [facility]04-13-2023 History of Present illness Narrative* Yue Pineda RN - 06/23/2022 10:15 AM EDT Radiology [...] 23, 2022 10:20 AM documented in this encounterSuburban Community Hospital & [facility]02-22-2023 Hospital Discharge instructions Patient Education 05/04/2022 [...] include: ?Spinach. ?Rhubarb. ?Beets. ?Potato chips and barbadian fries. ?Nuts. If you regularly take a diuretic medicine, make sure to eat at least 1 2 fruits or vegetables high in potassium each day. These include: ?Avocado. ?Banana. ?[place], prune, carrot, or tomato juice. ?Baked potato. [...] Casseroles. Pizza. Lasagna. Frozen meals. Potato chips. [place] Citizen fries. Summary You can reduce your risk [...] 06/24/2011 Document Revised: 06/19/2019 Document Reviewed: 02/07/2017 [employer] Patient Education 2020 Soundsupply. Follow Up Care 04/07/2022 09:22:30 With:JESSIKA RINCON PA-C, URL Address: [address] [place] [address]. [place] [address] When: Unknown [facility] 02-06-2023 Evaluation note* Encounter Date Diagnosis Assessment Notes Treatment Notes Treatment Clinical Notes Apr, Nausea & vomiting (ICD-10 - R11. 2) Sure Chill Other 01-26-2023 History of Present illness Narrative* Otoniel Adhikari MD - 04/07/2022 10:01 AM EST Images from the original note were not included. PATIENT NAME: Debby Hermosillo CLINIC NO.: [id number] ATTENDING PHYSICIAN: Otoniel Adhikari MD DATE OF SERVICE: April 07, [...] 6 months? saw neurologist (Dr. Hearn- In [facility]); possible MS? Osteoporosis Pneumonia 06/2016 & [...] 04/07/2022 1.51 1.00 - 4.00 k/uL Final Bastrop% Date Value Ref Range Status 04/07/2022 13.3 % Final Abs Bastrop Date Value Ref Range Status 04/07/2022 0.74 [...] do not hesitate to contact me at [phone]. Otoniel Adhikari MD Hematology/Medical Oncology [facility] CC: Milton Madison MD I spent a total of 30 minutes on the date of the service which included preparing to see the patient, veoj-xu-uhpd patient care, completing clinical documentation, obtaining and/or reviewing separately obtained history, performing a medically appropriate examination, counseling and educating the pat ient/family/caregiver and ordering medications, tests, or procedures. documented in this encounterSuburban Community Hospital & [facility]01-18-2023 History of Present illness Narrative* Angella [...] 30, 2022 11:14 AM documented in this encounterSuburban Community Hospital & [facility]01-12-2023 Miscellaneous Notes* Telephone Encounter - Mila Briscoe RN - 03/24/2022 10:30 AM EST Call placed to pt who is agreeable to calling and rescheduling an appointment with urology. Explained the importance of this and pt verbalized understanding. Mila Briscoe RN * Telephone Encounter - Raphael Jolley PA-C - 03/24/2022 9:30 AM EST Please call patient and advise that we tecommend she reschedule and keep an appointment with urology due to her recurrent UTIs Raphael * Telephone Encounter - Yudi Chapa - 03/24/2022 7:35 AM EST Called [facility] spoke with Shelbi. She states patient was scheduled with their office on 02/23 and no-showed and scheduled on 03/16 to which she called and cancelled. Yudi Guerrero Pss documented in this encounterSuburban Community Hospital & [facility]12-13-2022 Miscellaneous Notes* Telephone Encounter - Otoniel Adhikari MD - 02/22/2022 5:32 PM EST Nystatin documented in this encounterSuburban Community Hospital & [facility]09-22-2022 Miscellaneous Notes* Telephone Encounter - Angella Malloy RN - 12/02/2021 10:52 AM EDT Pt aware RX sent to [facility]. Encouraged to call for any additional [...] so much, Debby hermosillo documented in this encounterSuburban Community Hospital & [facility]07-25-2022 Miscellaneous Notes* Telephone Encounter - Mila Briscoe RN - 10/04/2021 1:45 PM EDT Pt has reviewed her negative covid results on my chart Mila Briscoe RN * Telephone Encounter - Mila Briscoe RN - 10/04/2021 1:45 PM EDT ----- Message from Otoniel Adhikari MD sent at 10/02/2021 10:28 AM EDT ----- Call with results documented in this encounterSuburban Community Hospital & [facility]07-25-2022 Miscellaneous Notes* Telephone Encounter - Yudi Guerrero Pss - 10/04/2021 8:32 AM EDT Called [facility] spoke with Alissa. Patient is scheduled 11/10 @ 1:[address] Mejias at their [place] office. Yudi Guerrero Pss * Telephone Encounter - Jessika Muse [facility] - 09/30/2021 7:53 AM EDT Records faxed to [facility]. * Telephone Encounter - Yudi Yolanda Pss - 09/29/2021 1:53 PM EDT Racheal: Information ready for you. Yudi Guerrero Pss * Telephone Encounter - Briseyda Silverjessie - 09/29/2021 1:50 PM EDT Patient to be referred to Neurology. Patient's preference is to stay local with [facility]. Racheal/Ubaldo: Can you please send information and follow up? Thank you! Briseydachema Ewing documented in this encounterSuburban Community Hospital & [facility]07-21-2022 Miscellaneous Notes* Telephone Encounter - Mila Briscoe RN - 09/30/2021 5:17 PM EDT Order faxed to [facility] Mila Briscoe, ALLYSSA documented in this encounterSuburban Community Hospital & [facility]07-20-2022 History of Present illness Narrative* Otoniel Adhikari MD - 09/29/2021 1:29 PM EDT Images from the original note were not included. PATIENT NAME: Debby Hermosillo CLINIC NO.: [id number] ATTENDING PHYSICIAN: Otoniel Adhikari MD DATE OF SERVICE: September 29, [...] 6 months? saw neurologist (Dr. Hearn- In [facility]); possible MS? Osteoporosis Pneumonia 06/2016 & [...] 09/14/2021 2.04 1.00 - 4.00 k/uL Final Bastrop% Date Value Ref Range Status 09/14/2021 10.0 % Final Abs Bastrop Date Value Ref Range Status 09/14/2021 0.63 [...] do not hesitate to contact me at [phone]. Otoniel Adhikari MD Hematology/Medical Oncology [facility] CC: Milton Madison MD I spent a total of 25 minutes on the date of the service which included preparing to see the patient, faca-jw-pmcj patient care, completing clinical documentation, obtaining and/or reviewing separately obtained history, performing a medically appropriate examination, counseling and educating the pat ient/family/caregiver and ordering medications, tests, or procedures. 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 Pam at Dr. Blackburn's office is going to reach out to the patient for an appointment. Briseyda Ewing * Telephone Encounter - Briseyda Ewing - 09/14/2021 3:58 PM EDT Sent referral to [facility] for referral. Sent information for an appointment for Dr. Blackburn regarding weight loss and worsening nausea. Patient is established. Briseyda Ewing [facility] History of Present illness Narrative* Raphael Jolley PA-C - 09/14/2021 2:30 PM EDT Images from the original note were not included. PATIENT NAME: Debby Gann [place] [facility] NO.: [id number] ATTENDING PHYSICIAN: Otoniel Adhikari MD DATE OF SERVICE: September 14, [...] 6 months? saw neurologist (Dr. Hearn- In [facility]); possible MS? Osteoporosis Pneumonia 06/2016 & [...] 09/14/2021 2.04 1.00 - 4.00 k/uL Final [place]% Date Value Ref Range Status 09/14/2021 10.0 % Final Abs [place] Date Value Ref Range Status 09/14/2021 0.63 [...] well. She will follow up with our director of user experience for her weight loss as well. Raphael Jolley PA-C documented in this encounter[facility] Nurse Note* Jessie Dill MA - 09/14/2021 2:24 PM EDT Patient states that her weight loss has been effecting her, she was not feeling well recently but is now.Jessie Dill MA documented in this encounter[facility] Miscellaneous Notes* Telephone Encounter - Becky Sessler, RN - 09/10/2021 11:18 AM EDT Pt notified and verbalizes understanding. Becky Olivares RN * Telephone Encounter - Becky Olivares RN - 09/10/2021 8:56 AM EDT Call placed to pt. No answer. Message left requesting call back. Becky Olivares RN * Telephone Encounter - Becky Olivares RN - 09/10/2021 8:56 AM EDT ----- Message from Otoniel Adhikari MD sent at 09/09/2021 7:07 PM EDT ----- Regarding: Stable CT Please let her know that her CT does not show any progresion,. Thanks documented [facility] History of Present illness Narrative* Angella Maloly RN - 09/07/2021 10:15 AM EDT Radiology [...] 07, 2021 10:41 AM documented in this encounter[facility] Miscellaneous Notes* Telephone Encounter - Marry Simpson RN - 08/30/2021 11:53 AM EDT Informed pt of UA results. Pt verbalized understanding and denies further needs at this time. Marry Simpson RN documented in this encounter[facility] History of Present illness Narrative* Raphael Jolley PA-C - 08/28/2021 10:40 AM EDT Called patient and advised her to not take zofran while on cipro due to potential interaction. Verbalized understanding. Raphael Jolley PA-C documented in this encounterSub[facility] Miscellaneous Notes* Telephone Encounter - Marry Simpson RN - 08/27/2021 4:22 PM EDT Pt informed and is still symptomatic and will begin Cipro. Marry Simpson RN * Telephone Encounter - Raphael Jolley PA-C - 08/27/2021 3:47 PM EDT If she is having symptoms, will start on Cipro since we don't have results and it is the weekend. Raphael Jolley PA-C * Telephone Encounter - Marry Simpson RN - 08/27/2021 3:31 PM EDT Spoke with [facility] Lab, culture pending, UA not ordered. Lab is going to run stat UA and fax results over aubrey. Marry Simpson RN * Telephone Encounter - Raphael Jolley PA-C - 08/27/2021 3:04 PM EDT Can you please call the patient ask patient if she did her urine test? I have not seen results. Raphael Jolley PA-C * Telephone Encounter - Raphael Jolley PA-C - 08/26/2021 3:41 PM EDT Can she please check a urinalysis and urine culture Prior to prescribing anything? Raphael Jolley PA-C documented in this encounterSub[facility] Evaluation note* Encounter Date Diagnosis Assessment Notes Treatment Notes Treatment Clinical Notes May, Gastroesophageal ref lux disease, unspecified whether esophagitis present (ICD-10 - K21.9) CONTINUE PANTOPRAZOLE 40 MG TWICE A DAY PRN May,cute gastritis without hemorrhage, unspecified gastritis type (ICD- 10 - K29.00) May,Nausea & vomiting (ICD-10 - R11.2) CONTINUE COMPAZINE DIRECTED [facility] Other 02-01-2022 Evaluation note* Encounter Date Diagnosis Assessment Notes Treatment Notes Treatment Clinical Notes Apr, Gastroesophageal ref lux disease, unspecified whether esophagitis present (ICD-10 - K21.9) Apr,hronic superficial gastritis without bleeding (ICD-10 - K29.30) Apr,Nausea & vomiting (ICD-10 - R11.2) START PANTOPRAZOLE 40 MG BID OBTAIN RECORDS FROM [facility] RTO 4 WEEKS Apr,rimary malignant neoplasm of right lung metastatic to other site (ICD-10 - C34.91) [facility] Other 12-16-2021 History of Present illness Narrative* [...] 25, 2021 9:22 AM documented in this encounterSub[facility] Nurse Note* Angella Malloy RN - [...] DATE: February 25, 2021 TIME: 8:25 AM [facility] Nurse Note* Angella Malloy RN - [...] 2021 TIME: 8:25 AM documented in this encounter[address] History of Past illness Narrative* ProblemNoted DateResolved NfesXurholhiy12documented as of this encounter (statuses as of 08/16/2021) [address] History of Past illness Narrative* ProblemNoted Date Resolved XyqyPholiwjdj25documented as of this encounter (statuses as of 08/27/2021) [address]-2017 History of Past illness Narrative* ProblemNoted Date Resolved QnfcMnwuevqpo36documented as of this encounter (statuses as of 08/28/2021) [address]2017 History of Past illness Narrative* ProblemNoted Date Resolved ZeeqXifynsknq14documented as of this encounter (statuses as of 08/30/2021) [address]2017 History of Past illness Narrative* ProblemNoted Date Resolved LsfgFddbemyft57documented as of this encounter (statuses as of 09/10/2021) [address]2017 History of Past illness Narrative* ProblemNoted Date Resolved DjidFotiymhya10documented as of this encounter (statuses as of 09/14/2021) [address]2017 History of Past illness Narrative* ProblemNoted Date Resolved XplnFvxongksh19documented as of this encounter (statuses as of 09/16/2021) [address]2017 History of Past illness Narrative* ProblemNoted Date Resolved NtcbEllnoahbr72documented as of this encounter (statuses as of 09/30/2021) [address]2017 History of Past illness Narrative* ProblemNoted Date Resolved OblyMriahxdmh82documented as of this encounter (statuses as of 09/30/2021) [address]2017 History of Past illness Narrative* ProblemNoted Date Resolved YnxcAcpdvdtsv99documented as of this encounter (statuses as of 10/01/2021) [address]2017 History of Past illness Narrative* ProblemNoted Date Resolved XgvdXgwrosurz11documented as of this encounter (statuses as of 10/04/2021) [address]2017 History of Past illness Narrative* ProblemNoted Date Resolved IpnyPbiiocnnf09documented as of this encounter (statuses as of 10/20/2021) [address]2017 History of Past illness Narrative* ProblemNoted Date Resolved OcwaHpowuaojk04documented as of this encounter (statuses as of 12/02/2021) [address]2017 History of Past illness Narrative* ProblemNoted Date Resolved IeyyKpufqbgzh10documented as of this encounter (statuses as of 02/23/2022) [address]2017 History of Past illness Narrative* ProblemNoted Date Resolved CxbqOzicllccy67documented as of this encounter (statuses as of 03/24/2022) [address]2017 History of Past illness Narrative* ProblemNoted Date Resolved IiagPgrnwzxzj14documented as of this encounter (statuses as of 04/07/2022) [address]2017 History of Past illness Narrative* ProblemNoted Date Resolved AyxuUpzztdbny83documented as of this encounter (statuses as of 06/10/2022) [address]2017 History of Past illness Narrative* ProblemNoted Date Resolved MdtgZdeduubqi66documented as of this encounter (statuses as of 07/05/2022) [address]2017 History of Past illness Narrative* ProblemNoted Date Resolved WlanJkyoqvoap39documented as of this encounter (statuses as of 07/06/2022) [address]2017 History of Past illness Narrative* ProblemNoted Date Resolved DsgpWhornenpt45documented as of this encounter (statuses as of 07/07/2022) [address]2017 History of Past illness Narrative* ProblemNoted Date Resolved TgdjRdwnkpqvh91documented as of this encounter (statuses as of 07/07/2022) [facility] of Past illness Narrative* ProblemNoted Date Resolved TeroGzgglehwi62documented as of this encounter (statuses as of 07/11/2022) [facility] of Past illness Narrative* ProblemNoted Date Resolved GhzoTawielmls08documented as of this encounter (statuses as of 07/21/2022) [address] History of Past illness Narrative* ProblemNoted Date Resolved EwnhTjmhsolxc97documented as of this encounter (statuses as of 08/11/2022) [facility] History of Past illness Narrative* ProblemNoted Date Resolved AitjWcexpjrda62documented as of this encounter (statuses as of 08/17/2022) [address]2017 History of Past illness Narrative* ProblemNoted Date Diagnosed DateResolved CjgpDrjryijnj06documented as of this encounter (statuses as of 09/20/2022) [address]2017 History of Past illness Narrative* ProblemNoted Date Diagnosed DateResolved LxmxJektzlcmn12documented as of this encounter (statuses as of 09/22/2022) [address]2017 History of Past illness Narrative* ProblemNoted Date Diagnosed DateResolved LmerPwraudnwd66documented as of this encounter (statuses as of 09/22/2022) [address]2017 History of Past illness Narrative* ProblemNoted Date Diagnosed DateResolved QkgsCdxeiabwo04documented as of this encounter (statuses as of 11/11/2022) [facility] of Past illness Narrative* ProblemNoted Date Diagnosed DateResolved RqdvTicmhrzbl40documented as of this encounter (statuses as of 11/11/2022) [facility] of Past illness Narrative* ProblemNoted Date Diagnosed DateResolved FxyrOfbqgpxfh88documented as of this encounter (statuses as of 11/12/2022) [facility] of Past illness Narrative* ProblemNoted Date Diagnosed DateResolved VddeRowgjzbrh70documented as of this encounter (statuses as of 11/24/2022) [address]2017 History of Past illness Narrative* ProblemNoted Date Diagnosed DateResolved EwwmYyfapqjle87documented as of this encounter (statuses as of 12/13/2022) [facility] History of Past illness Narrative* ProblemNoted Date Diagnosed DateResolved LmlySsmpbrycg38documented as of this encounter (statuses as of 01/02/2023) [address]2017 History of Past illness Narrative* ProblemNoted Date Diagnosed DateResolved YxzgDevgagnwf37documented as of this encounter (statuses as of 01/04/2023) [facility] History of Past illness Narrative* ProblemNoted Date Diagnosed DateResolved RfniDznlzkwhf75documented as of this encounter (statuses as of 01/05/2023) [address]2017 History of Past illness Narrative* ProblemNoted Date Diagnosed DateResolved RyzbCuzfohkpm86documented as of this encounter (statuses as of 01/09/2023) [address]2017 History of Past illness Narrative* ProblemNoted Date Diagnosed DateResolved RjsbZrnlgmzvl59documented as of this encounter (statuses as of 01/11/2023) [address]2017 History of Past illness Narrative* ProblemNoted Date Diagnosed DateResolved GtneTgddaqqno50documented as of this encounter (statuses as of 01/16/2023) [address]2017 History of Past illness Narrative* ProblemNoted Date Diagnosed DateResolved XyyqKdpmhkwpz43documented as of this encounter (statuses as of 01/25/2023) [facility] History of Past illness Narrative* ProblemNoted Date Diagnosed DateResolved IvzcSvljmxklz90documented as of this encounter (statuses as of 01/26/2023) [facility] History of Past illness Narrative* ProblemNoted Date Diagnosed DateResolved NxpyFhfnnlrgy76documented as of this encounter (statuses as of 02/15/2023) [facility] History of Past illness Narrative* ProblemNoted Date Diagnosed DateResolved TgdtOnepdjhtl15documented as of this encounter (statuses as of 02/16/2023) [facility] History of Past illness Narrative* ProblemNoted Date Diagnosed DateResolved GsgrNwnbghbzk35documented as of this encounter (statuses as of 05/05/2023) [address]2017 History of Past illness Narrative* ProblemNoted Date Diagnosed DateResolved HnqhNwlhaswzv02documented as of this encounter (statuses as of 05/10/2023) [address]2017 History of Past illness Narrative* ProblemNoted Date Diagnosed DateResolved CgbfTkczjpoxz00documented as of this encounter (statuses as of 05/10/2023) [address]2017 History of Past illness Narrative* ProblemNoted Date Diagnosed DateResolved LunjTkddnvuog31documented as of this encounter (statuses as of 05/30/2023) [address]2017 History of Past illness Narrative* ProblemNoted Date Diagnosed DateResolved NdwcDybexffzg16documented as of this encounter (statuses as of 05/30/2023) [address]-2017 History of Past illness Narrative* ProblemNoted Date Diagnosed DateResolved DyerHewnfnyce20documented as of this encounter (statuses as of 06/16/2023) [address]-2017 History of Past illness Narrative* ProblemNoted Date Diagnosed DateResolved QadaRgwgkohla99documented as of this encounter (statuses as of 06/21/2023) [address]-2017 History of Past illness Narrative* ProblemNoted Date Diagnosed DateResolved FvopPwyevgiox20documented as of this encounter (statuses as of 06/21/2023) [address]2017 History of Past illness Narrative* ProblemNoted Date Diagnosed DateResolved MbewHsffpqgnc67documented as of this encounter (statuses as of 06/23/2023) [facility] Future Appointments Appointment Date:11/01/2022 10:00:00 AM Scheduled Provider:JESSIKA RINCON PA-C Location:[facility] Appointment Type:URO Office Visit [facility] evaluation + Plan note Future Appointments Appointment Date:11/01/2022 10:00:00 AM Scheduled Provider:JESSIKA RINCON PA-C Location:[facility] Appointment Type:URO Office Visit Diagnostic Tests Pending * [facility] Future App[facility]ments Appointment Date:11/07/2023 10:00:00 AM Scheduled Provider:JESSIKA RINCON PA-C Location:[facility] Appointment Type:URO Office Visit [facility] evaluation + Plan note Future Appointments Appointment Date:12/08/2025 02:40:00 PM Scheduled Provider:JESSIKA RINCON PA-C Location:[facility] Appointment Type:URO Office Visit Future Scheduled Tests Radiology* NM Gastric Emptying Study 10/23/24 [facility] Evaluation note* Diagnosis Malignant neoplasm of hilus of lung, unspecified laterality (HCC) Anemia, unspecified type documented in this encounter [facility] note* Diagnosis Dysuria- Primary documented in this encounter [facility] noteNo [employer] [place] Other Evaluation note* Diagnosis Abnormal weight loss- Primary Loss of weight Malignant neoplasm of unspecified part of unspecified bronchus or lung (HCC) Frequent UTI Urinary tract infection, site not specified documented in this encounter [facility] note* Diagnosis Cerebrovascular accident (CVA) due to occlusion of small artery (HCC)- Primary Malignant neoplasm of unspecified part of unspecified bronchus or lung (HCC) documented in this encounter [facility] note* Diagnosis Close exposure to COVID-19 virus- Primary documented in this encounter [facility] noteNo assessment information [facility] Work Phone: Evaluation note* Diagnosis Thrush- Primary Candidiasis of mouth documented in this encounter [facility] note* Diagnosis Malignant neoplasm of unspecified part of unspecified bronchus or lung (HCC)- Primary Malignant neoplasm of hilus of lung, unspecified laterality (HCC) Anemia, unspecified type documented in this encounter [facility] note* Diagnosis Malignant neoplasm of hilus of lung, unspecified laterality (HCC) Anemia, unspecified type documented in this encounter [facility] note* Diagnosis Lung nodule- Primary Solitary pulmonary nodule Small cell carcinoma of lung, 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) Pre-op testing Preoperative examination, unspecified [facility]* Diagnosis Preoperative examination- Primary Preoperative examination, unspecified [facility] encounter [facility] Diagnosis Malignant neoplasm of hilus of lung, unspecified laterality (HCC) Anemia, unspecified type documented [facility] this encounter [facility]* Diagnosis Bronchiolar disease Other diseases of trachea and bronchus Lung nodule Solitary pulmonary nodule documented [facility]* Diagnosis Malignant neoplasm of hilus of lung, unspecified laterality (HCC)- Primary documented [facility] this encounter [facility]* Diagnosis Malignant neoplasm of upper lobe of left lung (HCC) documented [facility] this encounter [facility]* Diagnosis Malignant neoplasm of upper lobe of left lung (HCC) documented [facility] this encounter [facility]* Diagnosis Lung nodule [R91.1]- Primary Solitary pulmonary nodule documented [facility]* Diagnosis Encounter for preoperative anesthesiology assessment for thoracic surgery- Primary Malignant neoplasm of unspecified part of unspecified bronchus or lung (HCC) Pre-op testing Preoperative examination, unspecified SOB (shortness of breath) Shortness of breath documented in this encounter [facility]* Diagnosis Lung nodule- Primary Solitary pulmonary nodule Malignant neoplasm of unspecified part of unspecified bronchus or lung (HCC) Pre-op testing Preoperative examination, unspecified SOB (shortness of breath) Shortness of breath documented [facility] this encounter [facility]* Diagnosis Malignant neoplasm of unspecified part of unspecified bronchus or lung (HCC) Pre-op testing Preoperative examination, unspecified SOB (shortness of breath) Shortness of breath Encounter for other preprocedural examination Malignant neoplasm of unspecified part of unspecified bronchus or lung (HCC) Pre-op testing Preoperative examination, unspecified SOB (shortness of breath) Shortness of breath documented in this encounter [facility]* Diagnosis Malignant neoplasm of unspecified part of unspecified bronchus or lung (HCC)- Primary Lung nodule Solitary pulmonary nodule documented [facility] this encounter [facility]* Diagnosis Malignant neoplasm of upper lobe of left lung (HCC)- Primary documented [facility]* Diagnosis Malignant neoplasm of [...] [facility]* Diagnosis Vascular insufficiency- Primary Unspecified circulatory system disorder [facility] Diagnosis Malignant neoplasm of lower lobe of left lung (HCC) [facility] Diagnosis Anemia, unspecified type- Primary Malignant neoplasm of upper lobe of left lung (HCC) Malaise and fatigue Other malaise and fatigue Dysuria [facility] Diagnosis Dysuria- Primary Malignant neoplasm of upper lobe of left lung (HCC) Malignant neoplasm of hilus of lung, unspecified laterality (HCC) Anemia, unspecified type [facility] Diagnosis Malignant neoplasm of upper lobe of left lung (HCC)- Primary [facility] Diagnosis Malignant neoplasm of upper lobe of left lung (HCC)- Primary Malignant neoplasm of hilus of lung, unspecified laterality (HCC) [facility] Diagnosis Malignant neoplasm of hilus of lung, unspecified laterality (HCC)- Primary Malaise and fatigue Other malaise and fatigue documented [facility]* Diagnosis Malignant neoplasm of upper lobe of left lung (HCC)- Primary Malignant neoplasm of hilus of lung, unspecified laterality (HCC) [facility] [...] laterality (HCC) [facility]* Diagnosis Anemia, unspecified type- Primary documented [...] Syncope and collapse [facility] Diagnosis Malignant neoplasm of unspecified part of unspecified bronchus or lung (HCC) Malignant neoplasm of hilus of lung, unspecified laterality (HCC) Malignant neoplasm of right lung, unspecified part of lung (HCC) 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) [facility] Diagnosis Malignant neoplasm of unspecified part of unspecified bronchus or lung (HCC)- Primary Malignant neoplasm of right lung, unspecified part of lung (HCC) 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) Syncope and collapse Malaise and fatigue Other malaise and fatigue Nonintractable headache, unspecified chronicity pattern, unspecified headache type [facility]* Diagnosis Episodic migraine (CMS/HCC)- Primary [facility] Diagnosis Malignant neoplasm of hilus of lung, unspecified laterality (HCC) Anemia, unspecified type [facility]* Diagnosis 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 documented [facility]* Diagnosis 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)- Primary 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 [facility] Diagnosis 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)- Primary 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 Malignant neoplasm of hilus of lung, unspecified laterality (HCC) Malaise and fatigue Other malaise and fatigue [facility]* Diagnosis Malignant neoplasm of unspecified part of unspecified bronchus or lung (HCC)- Primary Malignant neoplasm of upper lobe of left lung (HCC) [facility]* Diagnosis Primary malignant neoplasm 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 (HCC)- Primary 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 [facility] Diagnosis 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 [facility] Diagnosis Secondary malignant neoplasm of brain (HCC)- Primary Secondary malignant neoplasm of brain and spinal cord [facility] Diagnosis 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 [facility] Diagnosis 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 [facility] Diagnosis Malignant neoplasm of unspecified part of unspecified bronchus or lung (HCC)- Primary [facility] Diagnosis 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)- Primary 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 Malaise and fatigue Other malaise and fatigue [facility] Diagnosis Ischemic stroke (CMS/HCC)- Primary Malignant neoplasm of lung, unspecified laterality, unspecified part of lung (CMS/HCC) Tobacco use Episodic migraine (CMS/HCC) 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) Secondary malignant neoplasm of brain and spinal cord [facility] Diagnosis 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)- Primary 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 Malignant neoplasm of right lung, unspecified part of lung (HCC) 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, unspecified laterality (HCC) documented [facility] Diagnosis Malignant neoplasm of unspecified part of unspecified bronchus or lung (HCC)- Primary Malignant neoplasm of upper lobe of left lung (HCC) [facility] Diagnosis Malignant neoplasm of hilus of lung, unspecified laterality (HCC) Anemia, unspecified type [facility] Diagnosis Dysuria- Primary Malignant neoplasm of hilus of lung, unspecified laterality (HCC) [facility] Diagnosis Malignant neoplasm of hilus of lung, unspecified laterality (HCC) Anemia, unspecified type [facility] Diagnosis 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) 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 Malignant neoplasm of right lung, unspecified part of lung (HCC) 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, unspecified laterality (HCC) [facility] Diagnosis Malignant neoplasm of unspecified part of unspecified bronchus or lung (HCC)- Primary Malignant neoplasm of upper lobe of left lung (HCC) [facility] Diagnosis Malignant neoplasm of hilus of lung, unspecified laterality (HCC)- Primary 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) 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 Malignant neoplasm of right lung, unspecified part of lung (HCC) 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) documented [facility] Diagnosis Malignant neoplasm of unspecified part of unspecified bronchus or lung (HCC)- Primary [facility] Diagnosis Malignant neoplasm of hilus of lung, unspecified laterality (HCC)- Primary 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) Elevated liver enzymes Other nonspecific abnormal serum enzyme levels [facility] Diagnosis 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)- Primary [facility] Diagnosis 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 Elevated liver enzymes Other nonspecific abnormal serum enzyme levels Malaise and fatigue Other malaise and fatigue Abnormal blood chemistry Other abnormal blood chemistry [facility] Diagnosis Ischemic stroke (CMS/HCC)- Primary Malignant neoplasm of lung, unspecified laterality, unspecified part of lung (CMS/HCC) 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) Secondary malignant neoplasm of brain and spinal cord [facility] Diagnosis Malignant neoplasm of hilus of lung, unspecified laterality (HCC)- Primary Colitis, acute Other and unspecified noninfectious gastroenteritis and colitis 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) Diarrhea, unspecified type [facility] Diagnosis Malignant neoplasm of unspecified part of unspecified bronchus or lung (HCC)- Primary Diarrhea, unspecified type Hypothyroidism due to medication [facility] Diagnosis Malignant neoplasm of hilus of lung, unspecified laterality (HCC) Anemia, unspecified type [facility] Diagnosis Malignant neoplasm of unspecified part of unspecified bronchus or lung (HCC) [facility] Diagnosis Malignant neoplasm of unspecified part of unspecified bronchus or lung (HCC)- Primary Malignant neoplasm of upper lobe of left lung (HCC) [facility] Diagnosis Urinary frequency- Primary Malignant neoplasm of hilus of lung, unspecified laterality (HCC) 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) 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 neoplasm of unspecified part of unspecified bronchus or lung (HCC) Colitis, acute Other and unspecified noninfectious gastroenteritis and colitis Acute hepatitis Acute and subacute necrosis of liver Tongue lesion Other specified conditions of the tongue Malignant neoplasm of upper lobe, right bronchus or lung (HCC) Malignant neoplasm of upper lobe, left bronchus or lung (HCC) Malignant neoplasm of lower lobe, right bronchus or lung (HCC) Malignant neoplasm of overlapping sites of unspecified bronchus and lung (HCC) 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 Thinning of skin Other specified disorder of skin Encounter for antineoplastic chemotherapy Personal history of tobacco use Personal history of tobacco use, presenting hazards to health Personal history of other malignant neoplasm of bronchus and lung documented [facility] this [facility] Author Jeet Sepulveda [facility]ored[facility] [id number]-loir-sgw female referred to the GI clinic for evaluation of abdominal pain. +intermittent epigastric pain for years. + history of gastric ulcers. She is currently on pantoprazole 40 mg twice daily without complete resolution of the pain. - Will arrange for EGD for evaluation of intraluminal etiologies of pain. -Will arrange for ultrasound of upper abdomen. -Will check LFTs and lipase and celiac panel - If previous workup is unremarkable we will arrange for gastric emptying study [facility] Work Phone: Evaluation note* Diagnosis Malignant neoplasm of hilus of lung, unspecified laterality (HCC) Anemia, unspecified type documented [facility] Diagnosis Tobacco abuse- Primary Tobacco use disorder Chronic rhinitis Tongue lesion Unspecified condition of the tongue [facility] Diagnosis Malignant neoplasm of hilus of lung, unspecified laterality (HCC)- Primary Anemia, unspecified type documented [facility] Diagnosis Malignant neoplasm of hilus of lung, unspecified laterality (HCC)- Primary 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) Acute hepatitis Acute and subacute necrosis of liver Tongue lesion Other specified conditions of the tongue Hypothyroidism due to medication documented in this encounter [facility] Narrative - Reported* Type Description Date Medical History metastatic lung cancer Medical HistoryGERDSurgical Cgfjiqbaocbitcivmes7616Woizdorq History vatkdgxavumsbiq5189Gebpkyyqpeyascw Historysee above Sure Chill Other History general Narrative - Reported* Type Description Date Medical History metastatic lung cancer- small ce ll Medical HistoryGERDSurgical Qrcxgssxgkjvtefyfal6082Olidsuyr History tenyutntpslompt1860Dyqznskm HistoryLung BiopsySurgical HistoryWedge Resection Hospitalization Historysee above VerticalResponse [facility] [employer] Other Hospital course Narrative No data available for this section [facility] Discharge instructions No data available for this section [facility] progress note No data available for this section [facility] reason for referral (narrative)* Diagnostic Procedure Only (Urgent) - ClosedSpecialtyDiagnoses / ProceduresReferred By Contact Referred To ContactMOLECULAR & FUNCTIONAL IMAGING Diagnoses Malignant neoplasm of unspecified part of unspecified bronchus or lung (HCC) Pre-op testing SOB (shortness of breath) Encounter for other preprocedural examination Procedures NM CARDIAC PERF STRESS/EXERCISE MYOCARDIAL SPECT MULTIPLE STUDIES Evette Walden MD [address] [place] [address] [facility] [address] [place] [address] Referral IDStatusReasonStart DateExpiration DateVisits RequestedVisits [id number] Auto-Generated Referral / [facility] for referral (narrative)* Diagnostic Procedure Only (Routine) - AuthorizedSpecialtyDiagnoses / ProceduresReferred By Contact Referred To ContactMOLECULAR & FUNCTIONAL IMAGING Diagnoses Malignant neoplasm of upper lobe of left lung (HCC) Procedures NM PET/CT SKULL-THIGH SUBSEQUENT PET IMAGING CT ATTENUATION SKULL BASE MID-THIGH Otoniel Adhikari MD [address] [place] [address] Molecular [facility] Functional Imaging [address] [place] [address] Referral IDStatusReasonStart DateExpiration DateVisits RequestedVisits [id number] Auto-Generated Referral / [facility] for referral (narrative)* Diagnostic Procedure Only (Routine) - OpenSpecialtyDiagnoses / ProceduresReferred By ContactReferred To ContactMOLECULAR & FUNCTIONAL IMAGING Diagnoses Malignant neoplasm of hilus of lung, unspecified laterality (HCC) Malaise and fatigue Malignant neoplasm of unspecified part of unspecified bronchus or lung (HCC) Procedures NM PET/CT SKULL-THIGH SUBSEQUENT PET IMAGING CT ATTENUATION SKULL BASE MID-THIGH Raphael Jolley PA-C [facility] [employer] [facility] [place] [address] Molecular & Functional Imaging [address] [place] [address] Referral IDStatusReasonStspringfield DateExpiration DateVisits RequestedVisits [id number] Auto-Generated Referral / [facility] for referral (narrative)* Diagnostic Procedure Only (Routine) - ClosedSpecialtyDiagnoses / ProceduresReferred By ContactReferred To ContactMOLECULAR & FUNCTIONAL IMAGING Diagnoses Malignant neoplasm of hilus of lung, unspecified laterality (HCC) Malaise and fatigue Malignant neoplasm of unspecified part of unspecified bronchus or lung (HCC) Procedures NM PET/CT SKULL-THIGH SUBSEQUENT PET IMAGING CT ATTENUATION SKULL BASE MID-THIGH Raphael Jolley PA-C [facility] [employer] [facility] [place] [address] Molecular & Functional Imaging [address] [place] [address] Referral IDStatusReasonStart DateExpiration DateVisits RequestedVisits [id number] Auto-Generated Referral / [facility] for referral (narrative)* Diagnostic Procedure Only (Routine) - ClosedSpecialtyDiagnoses / ProceduresReferred By ContactReferred To ContactMOLECULAR & FUNCTIONAL IMAGING Diagnoses Malignant neoplasm of upper lobe of left lung (HCC) Procedures NM PET/CT SKULL-THIGH SUBSEQUENT PET IMAGING CT ATTENUATION SKULL BASE MID-THIGH Otoniel Adhikari MD [address] [place] [address] [facility] [address] [place] [address] Referral IDStatusReasonStspringfield DateExpiration DateVisits RequestedVisits [id number] Auto-Generated Referral / [facility] for referral (narrative)* Diagnostic Procedure Only (Urgent) - ClosedSpecialtyDiagnoses / ProceduresReferred By ContactReferred To ContactMOLECULAR & FUNCTIONAL IMAGING Diagnoses Neoplasm of lung Procedures NM PET/CT SKULL-THIGH INITIAL PET IMAGING CT ATTENUATION SKULL BASE MID-THIGH Otoniel Adhikari MD [address] [place] [address] Molecular & Functional Imaging [address] [place] [address] Referral IDStatusReasonStspringfield DateExpiration DateVisits RequestedVisits [id number] Auto-Generated Referral / [facility] for referral (narrative)* Diagnostic Procedure Only (Routine) - ClosedSpecialtyDiagnoses / ProceduresReferred By ContactReferred To ContactMOLECULAR & FUNCTIONAL IMAGING Diagnoses Neoplasm of lung Procedures NM PET/CT SKULL-THIGH INITIAL PET IMAGING CT ATTENUATION SKULL BASE MID-THIGH Otoniel Adhikari MD [address] [place] [address] Molecular & Functional Imaging [address] [place] [address] Referral IDStatusReasonStart DateExpiration DateVisits RequestedVisits [id number] Auto-Generated Referral / [facility] for referral (narrative)* Diagnostic Procedure Only (Routine) - ClosedSpecialtyDiagnoses / ProceduresReferred By ContactReferred To ContactCT IMAGING Diagnoses Malignant neoplasm of unspecified part of unspecified bronchus or lung (HCC) Procedures CT CHEST W IVCON DIAGNOSTIC COMPUTED TOMOGRAPHY THORAX W/CONTRAST Otoniel Adhikari MD [address] [place], [place] [id number] Ct [facility] [place] [address] Referral IDStatusReasonStart DateExpiration DateVisits RequestedVisits [id number]/5/202312/31/202311 * Diagnostic Procedure Only (Routine) - ClosedSpecialtyDiagnoses / Procedures Referred By ContactReferred To ContactCT IMAGING Diagnoses Malignant neoplasm of unspecified part of unspecified bronchus or lung (HCC) Procedures CT ABD/PEL W IVCON CT ABD & PELVIS W/CONTRAST Otoniel Adhikari MD [address] [place], [place] [address] [place] [address] Referral IDStatusReasonStart DateExpiration DateVisits RequestedVisits [id number]/5/202312/31/202311 [facility] for referral (narrative)* Diagnostic Procedure Only (Routine) - Pending ReviewSpecialtyDiagnoses / ProceduresReferred By Contact Referred To ContactMOLECULAR & FUNCTIONAL IMAGING Diagnoses 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) Malignant neoplasm of right lung, unspecified part of lung (HCC) 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, unspecified laterality (HCC) Procedures NM PET/CT SKULL-THIGH SUBSEQUENT PET IMAGING CT ATTENUATION SKULL BASE MID-THIGH Michael Britton MD [address] [place] [address] [place] [address] Molecular & Functional Imaging [address] [place] [address] Referral IDStatusReasonStspringfield DateExpiration DateVisits RequestedVisits [id number] Review Auto-Generated Referral / [facility] for referral (narrative)No reason for referral information availableP[facility] Work Phone: Reason for visit NarrativePT HERE AT REQUEST OF DR ADHIKARI FOR EVALUATION AND TREATMENT OF NAUSEA AND VOMITING, REFERRAL NOTE [facility] Other Reason for visit Narrative* [place] Prior Authorization (Routine) - AuthorizedSpecialtyDiagnoses / ProceduresReferred By Contact Referred To Contact Diagnoses Malignant neoplasm of upper lobe of left lung (HCC) Malignant neoplasm of unspecified part of unspecified bronchus or lung Procedures INJ PEMBROLIZUMAB Otoniel Adhikari MD [address] [place] [address] [place] [address] Phone: tel: fax: Hematology/Oncology [address] [place] [address] [place] [address] Phone: tel: fax: Referral IDStatusReasonStart DateExpiration DateVisits RequestedVisits [id number]/9/20245/ [facility] for visit Narrative* [place] Prior Authorization (Routine) - DeniedSpecialtyDiagnoses / ProceduresReferred By ContactReferred To Contact Diagnoses Malignant neoplasm of upper lobe of left lung (HCC) Malignant neoplasm of unspecified part of unspecified bronchus or lung (HCC) Procedures INJ PEMBROLIZUMAB Otoniel Adhikari MD [address] [place] [address] Phone: tel: fax: Hematology/Oncology [address] [place] [address] [address] [place] [id number] Phone: tel: fax: Referral IDStatusReasonStart DateExpiration DateVisits RequestedVisits [id number] Patient Cleared - Admin/Hash Slinger/Director advise to proceed or did not respond [facility] for visit Narrative* [place] Prior Authorization (Routine) - AuthorizedSpecialtyDiagnoses / ProceduresReferred By ContactReferred To Contact Diagnoses Malignant neoplasm of upper lobe of left lung (HCC) Malignant neoplasm of unspecified part of unspecified bronchus or lung (HCC) Procedures INJ PEMBROLIZUMAB Otoniel Adhikari MD [address] [place] [address] Phone: tel: fax: Hematology/Oncology [address] [place] [address] [place] [address] Phone: tel: fax: Referral IDStatusReasonStspringfield DateExpiration DateVisits RequestedVisits [id number] Patient Cleared - Admin/Hash Slinger/Director advise to proceed or did not respond [facility] Reason for Referral SpecialtyDiagnoses / ProceduresReferred By ContactReferred To ContactCT IMAGING Diagnoses Secondary malignant neoplasm of brain (HCC) Procedures CT BRAIN STEREOLOCAL WO IVCON CT GUIDANCE STEREOTACTIC LOCALIZATION Alfredo More MD [address] [facility] [place] [address] Ct [facility] [place] [address] Referral IDStatusReasonStart DateExpiration DateVisits RequestedVisits [id number] Auto-Generated Referral Patient Cleared - Admin/Hash Slinger/Director advise to proceed or did not respond /[id number] / ProceduresReferred By ContactReferred To ContactMR IMAGING Diagnoses Secondary malignant neoplasm of brain (HCC) Procedures MRI BRAIN LOCALIZATION W IVCON MAGNETIC RESONANCE ELASTOGRAPHY Alfredo More MD [address] [place] [id number] Mr [facility] [place] [address] Referral IDStatusReasonStspringfield DateExpiration DateVisits RequestedVisits [id number] Auto-Generated Referral [id number] / ProceduresReferred By ContactReferred To ContactNeurosurgery Diagnoses 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) Procedures CONSULT TO NEUROSURGERY OFFICE/OUTPATIENT [facility] 60 MINUTES Raphael Jolley PA-C [address] [place] [address] [address] [place] [id number] Referral IDStatusReasonStart DateExpiration DateVisits RequestedVisits [id number] PCP Requested Referral [id number] / ProceduresReferred By ContactReferred To ContactCT IMAGING Diagnoses Lung nodules Procedures CT CHEST W IVCON CAT SCAN OF CHEST CONTRAST Raphael Jolley PA-C [address] [place] [address] [place] [address] Ct [facility] Referral IDStatusReasonStspringfield DateExpiration DateVisits RequestedVisits [id number] Auto-Generated Referral [id number] / ProceduresReferred By ContactReferred To ContactPodiatry Diagnoses Onychomycosis Procedures CONSULT TO PODIATRY OFFICE/OUTPATIENT [facility] 60 MINUTES Otoniel Adhikari MD [address] [place] [address] Referral IDStatusReasonStart DateExpiration DateVisits RequestedVisits [id number] PCP Requested Referral /[id number] / ProceduresReferred By ContactReferred To ContactVascular Medicine Diagnoses Vascular insufficiency Procedures CONSULT TO VASCULAR MEDICINE OFFICE/OUTPATIENT [facility] 60-74 MINUTES Raphael Jolley PA-C [address] [place] [address] Referral IDStatusReasonStart DateExpiration DateVisits RequestedVisits [id number] PCP Requested Referral /[id number] / ProceduresReferred By ContactReferred To ContactCT IMAGING Diagnoses Small cell carcinoma of lung, 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) Lung nodule Pre-op testing Procedures CT CHEST WO IVCON DIAGNOSTIC COMPUTED TOMOGRAPHY THORAX W/O CNTRST Dre Cantor MD [address] [place] [address] Ct Imaging Referral IDStatusReasonStart DateExpiration DateVisits RequestedVisits [id number] Review Auto-Generated Referral /[id number] / ProceduresReferred By ContactReferred To [facility] Diagnoses Small cell carcinoma of lung, 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) Lung nodule Pre-op testing Procedures ECG COMPLETE ECG ROUTINE ECG W/LEAST 12 LDS W/I&R Dre Cantor MD [address] [place] [address] [facility] [address] [place] [address] Referral IDStatusReasonStart DateExpiration DateVisits RequestedVisits [id number] Review Auto-Generated Referral /[id number] / ProceduresReferred By ContactReferred To ContactUrology Diagnoses Frequent UTI Procedures CONSULT TO UROLOGY OFFICE/OUTPATIENT NEW HIGH MDM 60-74 MINUTES Raphael Jolley PA-C [address] [place] [address] [place] [address] Referral IDStatusReasonStart DateExpiration DateVisits RequestedVisits [id number] PCP Requested Referral /[id number] / ProceduresReferred By ContactReferred To ContactMR IMAGING Diagnoses Malignant neoplasm of unspecified part of unspecified bronchus or lung (HCC) Procedures MRI BRAIN WO/W IVCON MRI BRAIN BRAIN STEM W/O W/CONTRAST MATERIAL Raphael Jolley PA-C [address] [place] [address] [place] [address] Mr Imaging Referral IDStatusReasonStart DateExpiration DateVisits RequestedVisits [id number] Review Auto-Generated Referral [id number] / ProceduresReferred By ContactReferred To ContactCT IMAGING Diagnoses Malignant neoplasm of unspecified part of unspecified bronchus or lung (HCC) Procedures CT CHEST W IVCON DIAGNOSTIC COMPUTED TOMOGRAPHY THORAX W/CONTRAST Raphael Jolley PA-C [address] [place] [address] [place] [address] Ct Imaging Referral IDStatusReasonStart DateExpiration DateVisits RequestedVisits [id number] Review Auto-Generated Referral Health Concerns InfectionOnset DateLast IndicatedResolved TimeCOVID-19 Rule-Out10/01/2021 8:03 AM EDT Chief Complaint and Reason for Visit Chief Complaint I63.9 Chief Complaint Admit Date abdominal pain September 26, 2024 8:48 am Reason for Visit Admit Date Epigastric pain September 26, 2024 8:48 am History of gastric ulcer September 26, 2024 8:48am Chief Complaint Admit Date abdominal pain September 26, 2024 8:48 am 4 month follow up October 28, 2024 2: 19pm Reason for Visit Admit Date Epigastric pain September 26, 2024 8:48 am History of gastric ulcer September 26, 2024 8:48am Encounter for medication monitoring Augu st 2024 2:19pm Advance Directives No Advanced Directives Records Found Advance Directive Response Recorded Date/ Time Advance Directives No June 06, 3:47pm Advance Directive Response Recorded Date/ Time Advance Directives No August 16 12:22pm Summary Purpose Family History No Family History Records Found Relationship Condition Age at Onset Recorded Date/T ashley father Unknown motherDeceasedUnknown Medications Administered Section Medication OrderMAR ActionAction DateDoseRateSite pembrolizumab 200 mg in NaCl 0.9% 66 mL (KEYTRUDA) 200 mg, INTRAVENOUS, Administer over 30 Minutes, ONCE, 1 dose, On Mon01/04/23 at 1400, Approx Total Volume: 66 mL EXP: 01/04/23 2000 RT Administer with 0.2 micron filter. New Bag/Syringe/Otpnkz1301/04/2023 2:15 PM [id number] mgMedication OrderMAR Action Action DateDoseRateSite pembrolizumab 200 mg in NaCl 0.9% 66 mL (KEYTRUDA) 200 mg, INTRAVENOUS, Administer over 30 Minutes, ONCE, 1 dose, On Mon01/25/23 at 1530, Approx Total Volume: 66 mL EXP 1500 01/26/23 RF Administer with 0.2 micron filter. New Bag/Syringe/Vcvlvj2901/25/2023 3:27 PM [id number] mgMedication OrderMAR Action Action DateDoseRateSite pembrolizumab 200 mg in NaCl 0.9% 66 mL (KEYTRUDA) 200 mg, INTRAVENOUS, Administer over 30 Minutes, ONCE, 1 dose, On Mon02/15/23 at 1430, Approx TotalVolume: 66 mL EXP: 02/15/23 2020 RT Administer with 0.2 micron filter. New Bag/Syringe/Nfrvxq2302/15/2023 2:31 PM [id number] mg Additional Source Comments Source Comments (unrecognize d section and content) In the event this informatio n is protected by the [facility] Confidentiality of Alcohol and Drug Abuse Patient Records regulations: The Federal rules restrict any use of the information to criminally investigate or prosecute any alcohol or drug abuse patient.[facility] the event this information is protected by the Federal Confidentiality of Alcohol and Drug Abuse Patient Records regulations: The Federal rules restrict any use of the information to criminally investigate or prosecute any alcohol or drug abuse patient.[facility] the event this information is protected by the Federal Confidentiality of Alcohol and Drug Abuse Patient Records regulations: The Federal rules restrict any use of the information to criminally investigate or prosecute any alcohol or drug abuse patient.[facility]In the event this information is protected by the Federal Confidentiality of Alcohol and Drug Abuse Patient Records regulations: The Federal rules restrict any use of the information to criminally investigate or prosecute any alcohol or drug abuse patient.[facility]In the event this information is protected by the Federal Confidentiality of Alcohol and Drug Abuse Patient Records regulations: The Federal rules restrict any use of the information to criminally investigate or prosecute any alcohol or drug abuse patient.[facility]In the event this information is protected by the Federal Confidentiality of Alcohol and Drug Abuse Patient Records regulations: The Federal rules restrict any use of the information to criminally investigate or prosecute any alcohol or drug abuse patient.[facility]In the event this information is protected by the Federal Confidentiality of Alcohol and Drug Abuse Patient Records regulations: The Federal rules restrict any use of the information to criminally investigate or prosecute any alcohol or drug abuse patient.[facility]In the event this information is protected by the Federal Confidentiality of Alcohol and Drug Abuse Patient Records regulations: The Federal rules restrict any use of the information to criminally investigate or prosecute any alcohol or drug abuse patient.[facility]In the event this information is protected by the Federal Confidentiality of Alcohol and Drug Abuse Patient Records regulations: The Federal rules restrict any use of the information to criminally investigate or prosecute any alcohol or drug abuse patient.[facility]In the event this information is protected by the Federal Confidentiality of Alcohol and Drug Abuse Patient Records regulations: The Federal rules restrict any use of the information to criminally investigate or prosecute any alcohol or drug abuse patient.[facility]In the event this information is protected by the Federal Confidentiality of Alcohol and Drug Abuse Patient Records regulations: The Federal rules restrict any use of the information to criminally investigate or prosecute any alcohol or drug abuse patient.[facility]In the event this information is protected by the Federal Confidentiality of Alcohol and Drug Abuse Patient Records regulations: The Federal rules restrict any use of the information to criminally investigate or prosecute any alcohol or drug abuse patient.[facility]In the event this information is protected by the Federal Confidentiality of Alcohol and Drug Abuse Patient Records regulations: The Federal rules restrict any use of the information to criminally investigate or prosecute any alcohol or drug abuse patient.[facility]In the event this information is protected by the Federal Confidentiality of Alcohol and Drug Abuse Patient Records regulations: The Federal rules restrict any use of the information to criminally investigate or prosecute any alcohol or drug abuse patient.[facility]In the event this information is protected by the Federal Confidentiality of Alcohol and Drug Abuse Patient Records regulations: The Federal rules restrict any use of the information to criminally investigate or prosecute any alcohol or drug abuse patient.[facility]In the event this information is protected by the Federal Confidentiality of Alcohol and Drug Abuse Patient Records regulations: The Federal rules restrict any use of the information to criminally investigate or prosecute any alcohol or drug abuse patient.[facility]In the event this information is protected by the Federal Confidentiality of Alcohol and Drug Abuse Patient Records regulations: The Federal rules restrict any use of the information to criminally investigate or prosecute any alcohol or drug abuse patient.[facility]In the event this information is protected by the Federal Confidentiality of Alcohol and Drug Abuse Patient Records regulations: The Federal rules restrict any use of the information to criminally investigate or prosecute any alcohol or drug abuse patient.[facility]In the event this information is protected by the Federal Confidentiality of Alcohol and Drug Abuse Patient Records regulations: The Federal rules restrict any use of the information to criminally investigate or prosecute any alcohol or drug abuse patient.[facility]In the event this information is protected by the Federal Confidentiality of Alcohol and Drug Abuse Patient Records regulations: The Federal rules restrict any use of the information to criminally investigate or prosecute any alcohol or drug abuse patient.[facility]In the event this information is protected by the Federal Confidentiality of Alcohol and Drug Abuse Patient Records regulations: The Federal rules restrict any use of the information to criminally investigate or prosecute any alcohol or drug abuse patient.[facility]In the event this information is protected by the Federal Confidentiality of Alcohol and Drug Abuse Patient Records regulations: The Federal rules restrict any use of the information to criminally investigate or prosecute any alcohol or drug abuse patient.[facility]In the event this information is protected by the Federal Confidentiality of Alcohol and Drug Abuse Patient Records regulations: The Federal rules restrict any use of the information to criminally investigate or prosecute any alcohol or drug abuse patient.[facility]In the event this information is protected by the Federal Confidentiality of Alcohol and Drug Abuse Patient Records regulations: The Federal rules restrict any use of the information to criminally investigate or prosecute any alcohol or drug abuse patient.[facility]In the event this information is protected by the Federal Confidentiality of Alcohol and Drug Abuse Patient Records regulations: The Federal rules restrict any use of the information to criminally investigate or prosecute any alcohol or drug abuse patient.[facility]In the event this information is protected by the Federal Confidentiality of Alcohol and Drug Abuse Patient Records regulations: The Federal rules restrict any use of the information to criminally investigate or prosecute any alcohol or drug abuse patient.[facility] HospitalIn the event this information is protected by the Federal Confidentiality of Alcohol and Drug Abuse Patient Records regulations: The Federal rules restrict any use of the information to criminally investigate or prosecute any alcohol or drug abuse patient.[facility]In the event this information is protected by the Federal Confidentiality of Alcohol and Drug Abuse Patient Records regulations: The Federal rules restrict any use of the information to criminally investigate or prosecute any alcohol or drug abuse patient.[facility]In the event this information is protected by the Federal Confidentiality of Alcohol and Drug Abuse Patient Records regulations: The Federal rules restrict any use of the information to criminally investigate or prosecute any alcohol or drug abuse patient.[facility]In the event this information is protected by the Federal Confidentiality of Alcohol and Drug Abuse Patient Records regulations: The Federal rules restrict any use of the information to criminally investigate or prosecute any alcohol or drug abuse patient.[facility]In the event this information is protected by the Federal Confidentiality of Alcohol and Drug Abuse Patient Records regulations: The Federal rules restrict any use of the information to criminally investigate or prosecute any alcohol or drug abuse patient.[facility]In the event this information is protected by the Federal Confidentiality of Alcohol and Drug Abuse Patient Records regulations: The Federal rules restrict any use of the information to criminally investigate or prosecute any alcohol or drug abuse patient.[facility]In the event this information is protected by the Federal Confidentiality of Alcohol and Drug Abuse Patient Records regulations: The Federal rules restrict any use of the information to criminally investigate or prosecute any alcohol or drug abuse patient.[facility]In the event this information is protected by the Federal Confidentiality of Alcohol and Drug Abuse Patient Records regulations: The Federal rules restrict any use of the information to criminally investigate or prosecute any alcohol or drug abuse patient.[facility]In the event this information is protected by the Federal Confidentiality of Alcohol and Drug Abuse Patient Records regulations: The Federal rules restrict any use of the information to criminally investigate or prosecute any alcohol or drug abuse patient.[facility]In the event this information is protected by the Federal Confidentiality of Alcohol and Drug Abuse Patient Records regulations: The Federal rules restrict any use of the information to criminally investigate or prosecute any alcohol or drug abuse patient.[facility]In the event this information is protected by the Federal Confidentiality of Alcohol and Drug Abuse Patient Records regulations: The Federal rules restrict any use of the information to criminally investigate or prosecute any alcohol or drug abuse patient.[facility]In the event this information is protected by the Federal Confidentiality of Alcohol and Drug Abuse Patient Records regulations: The Federal rules restrict any use of the information to criminally investigate or prosecute any alcohol or drug abuse patient.[facility]In the event this information is protected by the Federal Confidentiality of Alcohol and Drug Abuse Patient Records regulations: The Federal rules restrict any use of the information to criminally investigate or prosecute any alcohol or drug abuse patient.[facility]In the event this information is protected by the Federal Confidentiality of Alcohol and Drug Abuse Patient Records regulations: The Federal rules restrict any use of the information to criminally investigate or prosecute any alcohol or drug abuse patient.[facility]In the event this information is protected by the Federal Confidentiality of Alcohol and Drug Abuse Patient Records regulations: The Federal rules restrict any use of the information to criminally investigate or prosecute any alcohol or drug abuse patient.[facility]In the event this information is protected by the Federal Confidentiality of Alcohol and Drug Abuse Patient Records regulations: The Federal rules restrict any use of the information to criminally investigate or prosecute any alcohol or drug abuse patient.[facility]In the event this information is protected by the Federal Confidentiality of Alcohol and Drug Abuse Patient Records regulations: The Federal rules restrict any use of the information to criminally investigate or prosecute any alcohol or drug abuse patient.[facility]In the event this information is protected by the Federal Confidentiality of Alcohol and Drug Abuse Patient Records regulations: The Federal rules restrict any use of the information to criminally investigate or prosecute any alcohol or drug abuse patient.[facility]In the event this information is protected by the Federal Confidentiality of Alcohol and Drug Abuse Patient Records regulations: The Federal rules restrict any use of the information to criminally investigate or prosecute any alcohol or drug abuse patient.[facility]In the event this information is protected by the Federal Confidentiality of Alcohol and Drug Abuse Patient Records regulations: The Federal rules restrict any use of the information to criminally investigate or prosecute any alcohol or drug abuse patient.[facility]In the event this information is protected by the Federal Confidentiality of Alcohol and Drug Abuse Patient Records regulations: The Federal rules restrict any use of the information to criminally investigate or prosecute any alcohol or drug abuse patient.[facility]In the event this information is protected by the Federal Confidentiality of Alcohol and Drug Abuse Patient Records regulations: The Federal rules restrict any use of the information to criminally investigate or prosecute any alcohol or drug abuse patient.[facility]In the event this information is protected by the Federal Confidentiality of Alcohol and Drug Abuse Patient Records regulations: The Federal rules restrict any use of the information to criminally investigate or prosecute any alcohol or drug abuse patient.[facility]In the event this information is protected by the Federal Confidentiality of Alcohol and Drug Abuse Patient Records regulations: The Federal rules restrict any use of the information to criminally investigate or prosecute any alcohol or drug abuse patient.[facility]In the event this information is protected by the Federal Confidentiality of Alcohol and Drug Abuse Patient Records regulations: The Federal rules restrict any use of the information to criminally investigate or prosecute any alcohol or drug abuse patient.[facility]In the event this information is protected by the Federal Confidentiality of Alcohol and Drug Abuse Patient Records regulations: The Federal rules restrict any use of the information to criminally investigate or prosecute any alcohol or drug abuse patient.[facility]In the event this information is protected by the Federal Confidentiality of Alcohol and Drug Abuse Patient Records regulations: The Federal rules restrict any use of the information to criminally investigate or prosecute any alcohol or drug abuse patient.[facility]In the event this information is protected by the Federal Confidentiality of Alcohol and Drug Abuse Patient Records regulations: The Federal rules restrict any use of the information to criminally investigate or prosecute any alcohol or drug abuse patient.[facility]In the event this information is protected by the Federal Confidentiality of Alcohol and Drug Abuse Patient Records regulations: The Federal rules restrict any use of the information to criminally investigate or prosecute any alcohol or drug abuse patient.[facility]In the event this information is protected by the Federal Confidentiality of Alcohol and Drug Abuse Patient Records regulations: The Federal rules restrict any use of the information to criminally investigate or prosecute any alcohol or drug abuse patient.[facility]In the event this information is protected by the Federal Confidentiality of Alcohol and Drug Abuse Patient Records regulations: The Federal rules restrict any use of the information to criminally investigate or prosecute any alcohol or drug abuse patient.[facility]In the event this information is protected by the Federal Confidentiality of Alcohol and Drug Abuse Patient Records regulations: The Federal rules restrict any use of the information to criminally investigate or prosecute any alcohol or drug abuse patient.[facility]In the event this information is protected by the Federal Confidentiality of Alcohol and Drug Abuse Patient Records regulations: The Federal rules restrict any use of the information to criminally investigate or prosecute any alcohol or drug abuse patient.[facility]In the event this information is protected by the Federal Confidentiality of Alcohol and Drug Abuse Patient Records regulations: The Federal rules restrict any use of the information to criminally investigate or prosecute any alcohol or drug abuse patient.[facility]In the event this information is protected by the Federal Confidentiality of Alcohol and Drug Abuse Patient Records regulations: The Federal rules restrict any use of the information to criminally investigate or prosecute any alcohol or drug abuse patient.[facility]In the event this information is protected by the Federal Confidentiality of Alcohol and Drug Abuse Patient Records regulations: The Federal rules restrict any use of the information to criminally investigate or prosecute any alcohol or drug abuse patient.[facility]In the event this information is protected by the Federal Confidentiality of Alcohol and Drug Abuse Patient Records regulations: The Federal rules restrict any use of the information to criminally investigate or prosecute any alcohol or drug abuse patient.[facility]In the event this information is protected by the Federal Confidentiality of Alcohol and Drug Abuse Patient Records regulations: The Federal rules restrict any use of the information to criminally investigate or prosecute any alcohol or drug abuse patient.[facility]In the event this information is protected by the Federal Confidentiality of Alcohol and Drug Abuse Patient Records regulations: The Federal rules restrict any use of the information to criminally investigate or prosecute any alcohol or drug abuse patient.[facility]In the event this information is protected by the Federal Confidentiality of Alcohol and Drug Abuse Patient Records regulations: The Federal rules restrict any use of the information to criminally investigate or prosecute any alcohol or drug abuse patient.[facility]In the event this information is protected by the Federal Confidentiality of Alcohol and Drug Abuse Patient Records regulations: The Federal rules restrict any use of the information to criminally investigate or prosecute any alcohol or drug abuse patient.[facility]In the event this information is protected by the Federal Confidentiality of Alcohol and Drug Abuse Patient Records regulations: The Federal rules restrict any use of the information to criminally investigate or prosecute any alcohol or drug abuse patient.[facility]In the event this information is protected by the Federal Confidentiality of Alcohol and Drug Abuse Patient Records regulations: The Federal rules restrict any use of the information to criminally investigate or prosecute any alcohol or drug abuse patient.[facility]In the event this information is protected by the Federal Confidentiality of Alcohol and Drug Abuse Patient Records regulations: The Federal rules restrict any use of the information to criminally investigate or prosecute any alcohol or drug abuse patient.[facility]In the event this information is protected by the Federal Confidentiality of Alcohol and Drug Abuse Patient Records regulations: The Federal rules restrict any use of the information to criminally investigate or prosecute any alcohol or drug abuse patient.[facility]In the event this information is protected by the Federal Confidentiality of Alcohol and Drug Abuse Patient Records regulations: The Federal rules restrict any use of the information to criminally investigate or prosecute any alcohol or drug abuse patient.[facility]In the event this information is protected by the Federal Confidentiality of Alcohol and Drug Abuse Patient Records regulations: The Federal rules restrict any use of the information to criminally investigate or prosecute any alcohol or drug abuse patient.[facility]In the event this information is protected by the Federal Confidentiality of Alcohol and Drug Abuse Patient Records regulations: The Federal rules restrict any use of the information to criminally investigate or prosecute any alcohol or drug abuse patient.[facility]In the event this information is protected by the Federal Confidentiality of Alcohol and Drug Abuse Patient Records regulations: The Federal rules restrict any use of the information to criminally investigate or prosecute any alcohol or drug abuse patient.[facility]In the event this information is protected by the Federal Confidentiality of Alcohol and Drug Abuse Patient Records regulations: The Federal rules restrict any use of the information to criminally investigate or prosecute any alcohol or drug abuse patient.[facility]In the event this information is protected by the Federal Confidentiality of Alcohol and Drug Abuse Patient Records regulations: The Federal rules restrict any use of the information to criminally investigate or prosecute any alcohol or drug abuse patient.[facility]In the event this information is protected by the Federal Confidentiality of Alcohol and Drug Abuse Patient Records regulations: The Federal rules restrict any use of the information to criminally investigate or prosecute any alcohol or drug abuse patient.[facility]In the event this information is protected by the Federal Confidentiality of Alcohol and Drug Abuse Patient Records regulations: The Federal rules restrict any use of the information to criminally investigate or prosecute any alcohol or drug abuse patient.[facility]In the event this information is protected by the Federal Confidentiality of Alcohol and Drug Abuse Patient Records regulations: The Federal rules restrict any use of the information to criminally investigate or prosecute any alcohol or drug abuse patient.[facility]In the event this information is protected by the Federal Confidentiality of Alcohol and Drug Abuse Patient Records regulations: The Federal rules restrict any use of the information to criminally investigate or prosecute any alcohol or drug abuse patient.[facility]In the event this information is protected by the Federal Confidentiality of Alcohol and Drug Abuse Patient Records regulations: The Federal rules restrict any use of the information to criminally investigate or prosecute any alcohol or drug abuse patient.[facility]In the event this information is protected by the Federal Confidentiality of Alcohol and Drug Abuse Patient Records regulations: The Federal rules restrict any use of the information to criminally investigate or prosecute any alcohol or drug abuse patient.[facility]In the event this information is protected by the Federal Confidentiality of Alcohol and Drug Abuse Patient Records regulations: The Federal rules restrict any use of the information to criminally investigate or prosecute any alcohol or drug abuse patient.[facility]In the event this information is protected by the Federal Confidentiality of Alcohol and Drug Abuse Patient Records regulations: The Federal rules restrict any use of the information to criminally investigate or prosecute any alcohol or drug abuse patient.[facility]In the event this information is protected by the Federal Confidentiality of Alcohol and Drug Abuse Patient Records regulations: The Federal rules restrict any use of the information to criminally investigate or prosecute any alcohol or drug abuse patient.[facility]In the event this information is protected by the Federal Confidentiality of Alcohol and Drug Abuse Patient Records regulations: The Federal rules restrict any use of the information to criminally investigate or prosecute any alcohol or drug abuse patient.[facility]In the event this information is protected by the Federal Confidentiality of Alcohol and Drug Abuse Patient Records regulations: The Federal rules restrict any use of the information to criminally investigate or prosecute any alcohol or drug abuse patient.[facility]In the event this information is protected by the Federal Confidentiality of Alcohol and Drug Abuse Patient Records regulations: The Federal rules restrict any use of the information to criminally investigate or prosecute any alcohol or drug abuse patient.[facility]In the event this information is protected by the Federal Confidentiality of Alcohol and Drug Abuse Patient Records regulations: The Federal rules restrict any use of the information to criminally investigate or prosecute any alcohol or drug abuse patient.[facility]In the event this information is protected by the Federal Confidentiality of Alcohol and Drug Abuse Patient Records regulations: The Federal rules restrict any use of the information to criminally investigate or prosecute any alcohol or drug abuse patient.[facility]In the event this information is protected by the Federal Confidentiality of Alcohol and Drug Abuse Patient Records regulations: The Federal rules restrict any use of the information to criminally investigate or prosecute any alcohol or drug abuse patient.[facility]In the event this information is protected by the Federal Confidentiality of Alcohol and Drug Abuse Patient Records regulations: The Federal rules restrict any use of the information to criminally investigate or prosecute any alcohol or drug abuse patient.[facility]In the event this information is protected by the Federal Confidentiality of Alcohol and Drug Abuse Patient Records regulations: The Federal rules restrict any use of the information to criminally investigate or prosecute any alcohol or drug abuse patient.[facility]In the event this information is protected by the Federal Confidentiality of Alcohol and Drug Abuse Patient Records regulations: The Federal rules restrict any use of the information to criminally investigate or prosecute any alcohol or drug abuse patient.[facility]In the event this information is protected by the Federal Confidentiality of Alcohol and Drug Abuse Patient Records regulations: The Federal rules restrict any use of the information to criminally investigate or prosecute any alcohol or drug abuse patient.[facility]In the event this information is protected by the Federal Confidentiality of Alcohol and Drug Abuse Patient Records regulations: The Federal rules restrict any use of the information to criminally investigate or prosecute any alcohol or drug abuse patient.[facility]In the event this information is protected by the Federal Confidentiality of Alcohol and Drug Abuse Patient Records regulations: The Federal rules restrict any use of the information to criminally investigate or prosecute any alcohol or drug abuse patient.[facility]In the event this information is protected by the Federal Confidentiality of Alcohol and Drug Abuse Patient Records regulations: The Federal rules restrict any use of the information to criminally investigate or prosecute any alcohol or drug abuse patient.[facility]In the event this information is protected by the Federal Confidentiality of Alcohol and Drug Abuse Patient Records regulations: The Federal rules restrict any use of the information to criminally investigate or prosecute any alcohol or drug abuse patient.[facility]In the event this information is protected by the Federal Confidentiality of Alcohol and Drug Abuse Patient Records regulations: The Federal rules restrict any use of the information to criminally investigate or prosecute any alcohol or drug abuse patient.[facility]In the event this information is protected by the Federal Confidentiality of Alcohol and Drug Abuse Patient Records regulations: The Federal rules restrict any use of the information to criminally investigate or prosecute any alcohol or drug abuse patient.[facility]In the event this information is protected by the Federal Confidentiality of Alcohol and Drug Abuse Patient Records regulations: The Federal rules restrict any use of the information to criminally investigate or prosecute any alcohol or drug abuse patient.[facility]In the event this information is protected by the Federal Confidentiality of Alcohol and Drug Abuse Patient Records regulations: The Federal rules restrict any use of the information to criminally investigate or prosecute any alcohol or drug abuse patient.[facility]In the event this information is protected by the Federal Confidentiality of Alcohol and Drug Abuse Patient Records regulations: The Federal rules restrict any use of the information to criminally investigate or prosecute any alcohol or drug abuse patient.[facility]In the event this information is protected by the Federal Confidentiality of Alcohol and Drug Abuse Patient Records regulations: The Federal rules restrict any use of the information to criminally investigate or prosecute any alcohol or drug abuse patient.[facility]In the event this information is protected by the Federal Confidentiality of Alcohol and Drug Abuse Patient Records regulations: The Federal rules restrict any use of the information to criminally investigate or prosecute any alcohol or drug abuse patient.[facility]In the event this information is protected by the Federal Confidentiality of Alcohol and Drug Abuse Patient Records regulations: The Federal rules restrict any use of the information to criminally investigate or prosecute any alcohol or drug abuse patient.[facility]In the event this information is protected by the Federal Confidentiality of Alcohol and Drug Abuse Patient Records regulations: The Federal rules restrict any use of the information to criminally investigate or prosecute any alcohol or drug abuse patient.[facility]In the event this information is protected by the Federal Confidentiality of Alcohol and Drug Abuse Patient Records regulations: The Federal rules restrict any use of the information to criminally investigate or prosecute any alcohol or drug abuse patient.[facility]In the event this information is protected by the Federal Confidentiality of Alcohol and Drug Abuse Patient Records regulations: The Federal rules restrict any use of the information to criminally investigate or prosecute any alcohol or drug abuse patient.[facility]In the event this information is protected by the Federal Confidentiality of Alcohol and Drug Abuse Patient Records regulations: The Federal rules restrict any use of the information to criminally investigate or prosecute any alcohol or drug abuse patient.[facility]In the event this information is protected by the Federal Confidentiality of Alcohol and Drug Abuse Patient Records regulations: The Federal rules restrict any use of the information to criminally investigate or prosecute any alcohol or drug abuse patient.[facility]In the event this information is protected by the Federal Confidentiality of Alcohol and Drug Abuse Patient Records regulations: The Federal rules restrict any use of the information to criminally investigate or prosecute any alcohol or drug abuse patient.[facility]In the event this information is protected by the Federal Confidentiality of Alcohol and Drug Abuse Patient Records regulations: The Federal rules restrict any use of the information to criminally investigate or prosecute any alcohol or drug abuse patient.[facility]In the event this information is protected by the Federal Confidentiality of Alcohol and Drug Abuse Patient Records regulations: The Federal rules restrict any use of the information to criminally investigate or prosecute any alcohol or drug abuse patient.[facility]In the event this information is protected by the Federal Confidentiality of Alcohol and Drug Abuse Patient Records regulations: The Federal rules restrict any use of the information to criminally investigate or prosecute any alcohol or drug abuse patient.[facility]In the event this information is protected by the Federal Confidentiality of Alcohol and Drug Abuse Patient Records regulations: The Federal rules restrict any use of the information to criminally investigate or prosecute any alcohol or drug abuse patient.[facility]In the event this information is protected by the Federal Confidentiality of Alcohol and Drug Abuse Patient Records regulations: The Federal rules restrict any use of the information to criminally investigate or prosecute any alcohol or drug abuse patient.[facility]In the event this information is protected by the Federal Confidentiality of Alcohol and Drug Abuse Patient Records regulations: The Federal rules restrict any use of the information to criminally investigate or prosecute any alcohol or drug abuse patient.[facility]In the event this information is protected by the Federal Confidentiality of Alcohol and Drug Abuse Patient Records regulations: The Federal rules restrict any use of the information to criminally investigate or prosecute any alcohol or drug abuse patient.[facility]In the event this information is protected by the Federal Confidentiality of Alcohol and Drug Abuse Patient Records regulations: The Federal rules restrict any use of the information to criminally investigate or prosecute any alcohol or drug abuse patient.[facility]In the event this information is protected by the Federal Confidentiality of Alcohol and Drug Abuse Patient Records regulations: The Federal rules restrict any use of the information to criminally investigate or prosecute any alcohol or drug abuse patient.[facility]In the event this information is protected by the Federal Confidentiality of Alcohol and Drug Abuse Patient Records regulations: The Federal rules restrict any use of the information to criminally investigate or prosecute any alcohol or drug abuse patient.[facility]In the event this information is protected by the Federal Confidentiality of Alcohol and Drug Abuse Patient Records regulations: The Federal rules restrict any use of the information to criminally investigate or prosecute any alcohol or drug abuse patient.[facility]In the event this information is protected by the Federal Confidentiality of Alcohol and Drug Abuse Patient Records regulations: The Federal rules restrict any use of the information to criminally investigate or prosecute any alcohol or drug abuse patient.[facility]In the event this information is protected by the Federal Confidentiality of Alcohol and Drug Abuse Patient Records regulations: The Federal rules restrict any use of the information to criminally investigate or prosecute any alcohol or drug abuse patient.[facility]In the event this information is protected by the Federal Confidentiality of Alcohol and Drug Abuse Patient Records regulations: The Federal rules restrict any use of the information to criminally investigate or prosecute any alcohol or drug abuse patient.[facility]In the event this information is protected by the Federal Confidentiality of Alcohol and Drug Abuse Patient Records regulations: The Federal rules restrict any use of the information to criminally investigate or prosecute any alcohol or drug abuse patient.[facility]In the event this information is protected by the Federal Confidentiality of Alcohol and Drug Abuse Patient Records regulations: The Federal rules restrict any use of the information to criminally investigate or prosecute any alcohol or drug abuse patient.[facility]In the event this information is protected by the Federal Confidentiality of Alcohol and Drug Abuse Patient Records regulations: The Federal rules restrict any use of the information to criminally investigate or prosecute any alcohol or drug abuse patient.[facility]In the event this information is protected by the Federal Confidentiality of Alcohol and Drug Abuse Patient Records regulations: The Federal rules restrict any use of the information to criminally investigate or prosecute any alcohol or drug abuse patient.[facility]In the event this information is protected by the Federal Confidentiality of Alcohol and Drug Abuse Patient Records regulations: The Federal rules restrict any use of the information to criminally investigate or prosecute any alcohol or drug abuse patient.[facility]In the event this information is protected by the Federal Confidentiality of Alcohol and Drug Abuse Patient Records regulations: The Federal rules restrict any use of the information to criminally investigate or prosecute any alcohol or drug abuse patient.[facility]In the event this information is protected by the Federal Confidentiality of Alcohol and Drug Abuse Patient Records regulations: The Federal rules restrict any use of the information to criminally investigate or prosecute any alcohol or drug abuse patient.[facility]In the event this information is protected by the Federal Confidentiality of Alcohol and Drug Abuse Patient Records regulations: The Federal rules restrict any use of the information to criminally investigate or prosecute any alcohol or drug abuse patient.[facility]In the event this information is protected by the Federal Confidentiality of Alcohol and Drug Abuse Patient Records regulations: The Federal rules restrict any use of the information to criminally investigate or prosecute any alcohol or drug abuse patient.[facility]In the event this information is protected by the Federal Confidentiality of Alcohol and Drug Abuse Patient Records regulations: The Federal rules restrict any use of the information to criminally investigate or prosecute any alcohol or drug abuse patient.[facility]In the event this information is protected by the Federal Confidentiality of Alcohol and Drug Abuse Patient Records regulations: The Federal rules restrict any use of the information to criminally investigate or prosecute any alcohol or drug abuse patient.[facility]In the event this information is protected by the Federal Confidentiality of Alcohol and Drug Abuse Patient Records regulations: The Federal rules restrict any use of the information to criminally investigate or prosecute any alcohol or drug abuse patient.[facility]In the event this information is protected by the Federal Confidentiality of Alcohol and Drug Abuse Patient Records regulations: The Federal rules restrict any use of the information to criminally investigate or prosecute any alcohol or drug abuse patient.[facility]In the event this information is protected by the Federal Confidentiality of Alcohol and Drug Abuse Patient Records regulations: The Federal rules restrict any use of the information to criminally investigate or prosecute any alcohol or drug abuse patient.[facility]In the event this information is protected by the Federal Confidentiality of Alcohol and Drug Abuse Patient Records regulations: The Federal rules restrict any use of the information to criminally investigate or prosecute any alcohol or drug abuse patient.[facility]In the event this information is protected by the Federal Confidentiality of Alcohol and Drug Abuse Patient Records regulations: The Federal rules restrict any use of the information to criminally investigate or prosecute any alcohol or drug abuse patient.[facility]In the event this information is protected by the Federal Confidentiality of Alcohol and Drug Abuse Patient Records regulations: The Federal rules restrict any use of the information to criminally investigate or prosecute any alcohol or drug abuse patient.[facility]In the event this information is protected by the Federal Confidentiality of Alcohol and Drug Abuse Patient Records regulations: The Federal rules restrict any use of the information to criminally investigate or prosecute any alcohol or drug abuse patient.[facility]In the event this information is protected by the Federal Confidentiality of Alcohol and Drug Abuse Patient Records regulations: The Federal rules restrict any use of the information to criminally investigate or prosecute any alcohol or drug abuse patient.[facility]In the event this information is protected by the Federal Confidentiality of Alcohol and Drug Abuse Patient Records regulations: The Federal rules restrict any use of the information to criminally investigate or prosecute any alcohol or drug abuse patient.[facility]In the event this information is protected by the Federal Confidentiality of Alcohol and Drug Abuse Patient Records regulations: The Federal rules restrict any use of the information to criminally investigate or prosecute any alcohol or drug abuse patient.[facility]In the event this information is protected by the Federal Confidentiality of Alcohol and Drug Abuse Patient Records regulations: The Federal rules restrict any use of the information to criminally investigate or prosecute any alcohol or drug abuse patient.[facility]In the event this information is protected by the Federal Confidentiality of Alcohol and Drug Abuse Patient Records regulations: The Federal rules restrict any use of the information to criminally investigate or prosecute any alcohol or drug abuse patient.[facility]In the event this information is protected by the Federal Confidentiality of Alcohol and Drug Abuse Patient Records regulations: The Federal rules restrict any use of the information to criminally investigate or prosecute any alcohol or drug abuse patient.[facility]In the event this information is protected by the Federal Confidentiality of Alcohol and Drug Abuse Patient Records regulations: The Federal rules restrict any use of the information to criminally investigate or prosecute any alcohol or drug abuse patient.[facility]In the event this information is protected by the Federal Confidentiality of Alcohol and Drug Abuse Patient Records regulations: The Federal rules restrict any use of the information to criminally investigate or prosecute any alcohol or drug abuse patient.[facility] HospitalIn the event this information is protected by the Federal Confidentiality of Alcohol and Drug Abuse Patient Records regulations: The Federal rules restrict any use of the information to criminally investigate or prosecute any alcohol or drug abuse patient.[facility] Care Teams (unrecognized sec tion and content) Team Status: Active Member Role Status Dates PHYSICIAN NO FAMILY Primary Care Provider Active Team Status: Inactive Member Role Status Dates PHYSICIAN NO FAMILY Primary Care Provider Active Start: September 26, 2024 End: September 26, 2024Imad JAMEY Sepulvedattending ProviderActiveStart: September 26, 2024 End: September 26, 2024Team MemberRelationshipSpecialtyStart DateEnd Date Milton Madison PCP - GeneralFamily Wkwiayql49/26/17 Gasper Fong KebpzpjmdSvioxjkekgt35/26/17 Mert Mcgovern MD Radiation Yptbejej99/27/17 Otoniel Adhikari MD [address] [place] [address] PhysicianHematology/Oncology03/20/19Team MemberRelationshipSpecialtyStart DateEnd Date Milton Madison PCP - GeneralFamily Cfgwipqb40/26/17 Gasper Fong DvpgblzqdLcccnvmlghn05/26/17 Mert Mcgovern MD Radiation Jajkyquw20/27/17 Otoniel Adhikari MD [address] [place] [address] PhysicianHematology/Oncology03/20/19Team MemberRelationshipSpecialtyStart DateEnd Date Milton Madison PCP - GeneralFamily Buutmqbz82/26/17 Gasper Fong EzyyqejtqIwehpoyozrh63/26/17 Mert Mcgovern MD Radiation Ylhgpnlt16/27/17 Otoniel Adhikari MD [address] [place] [address] PhysicianHematology/Oncology03/20/19Team MemberRelationshipSpecialtyStart DateEnd Date Milton Madison PCP - GeneralFamily Yepfgyuy00/26/17 Gasper Fong ScklbmtzjYipqttlkzhc04/26/17 Mert Mcgovern MD Radiation Cyqcetrw60/27/17 Otoniel Adhikari MD [address] [place] [address] PhysicianHematology/Oncology03/20/19Team MemberRelationshipSpecialtyStart DateEnd Date Milton Madison PCP - GeneralFamily Mnkwaifr74/26/17 Gasper Fong UtoigbhcnRzcdqgxdynm58/26/17 Mert Mcgovern MD Radiation Utjoldxr72/27/17 Otoniel Adhikari MD [address] [place] [address] PhysicianHematology/Oncology03/20/19Team MemberRelationshipSpecialtyStart DateEnd Date Milton Madison PCP - GeneralFamily Zalcqycd17/26/17 Gasper Fong FnjwkqacbWefsaplqhaa96/26/17 Mert Mcgovern MD Radiation Sbfhtsti46/27/17 Otoniel Adhikari MD [address] [place] [address] PhysicianHematology/Oncology03/20/19Team MemberRelationshipSpecialtyStart DateEnd Date Milton Madison PCP - GeneralFamily Niuggckv16/26/17 Gasper Fong MpglxsfwcJxgtpvidwqz77/26/17 Mert Mcgovern MD Radiation Uxsayslk73/27/17 Otoniel Adhikari MD [address] [place] [address] PhysicianHematology/Oncology03/20/19Team MemberRelationshipSpecialtyStart DateEnd Date Milton Madison PCP - GeneralFamily Gmsyxsgg71/26/17 Gasper Fong TbcmaroxuHxvifqymdge56/26/17 Mert Mcgovern MD Radiation Qlfapqpo66/27/17 Otoniel Adhikari MD [address] [place] [address] PhysicianHematology/Oncology03/20/19 Team Status: Inactive Member Role Status Dates Finn Mejias , Attending Provider Active PHYSICIAN NO FAMILYPrthe outer [facility] hospitalry Care ProviderActiveTeam MemberRelationshipSpecialty Start DateEnd Date Milton Madison PCP - GeneralFamily Mmwpormn68/26/17 Gasper Fong QvomucaefJluadgjytgb99/26/17 Mert Mcgovern MD Radiation Nwatsbbt86/27/17 Otoniel Adhikari MD [address] [place] [address] PhysicianHematology/Oncology03/20/19Team MemberRelationshipSpecialtyStart DateEnd Date Milton Madison PCP - GeneralFamily Zxozquxt11/26/17 Gasper Fong TfsutujtjKhuztbcmuuz29/26/17 Mert Mcgovern MD Radiation Sydpkjso13/27/17 Otoniel Adhikari MD [address] [place] [address] PhysicianHematology/Oncology03/20/19Team MemberRelationshipSpecialtyStart DateEnd Date Milton Madison PCP - GeneralFamily Jwekexyk77/26/17 Gasper Fong CefvhpenrZlupqjazzgt19/26/17 Mert Mcgovern MD Radiation Oumfwaor49/27/17 Otoniel Adhikari MD [address] [place] [address] PhysicianHematology/Oncology03/20/19Team MemberRelationshipSpecialtyStart DateEnd Date Milton Madison PCP - GeneralFamily Bnchheyf93/26/17 Gasper Fong ZowbzkzfwOytovrqniyk06/26/17 Mert Mcgovern MD Radiation Kondghog21/27/17 Otoniel Adhikari MD [address] [place] [address] PhysicianHematology/Oncology03/20/19Team MemberRelationshipSpecialtyStart DateEnd Date Milton Madison PCP - GeneralFamily Icqirale66/26/17 Gasper Fong GikleogctOdnogmahcwu14/26/17 Mert Mcgovern MD Radiation Dsarizln95/27/17 Otoniel Adhikari MD [address] [place] [address] PhysicianHematology/Oncology03/20/19Team MemberRelationshipSpecialtyStart DateEnd Date Gricelda Milton Hubbard PCP - GeneralFamily Bqdzxndf00/26/17 Gasper Fong RsqehtaisUbkawtbboqv49/26/17 Mert Mcgovern MD Radiation Ycczhayi19/27/17 Otoniel Adhikari MD [address] [place] [address] PhysicianHematology/Oncology03/20/19Team MemberRelationshipSpecialtyStart DateEnd Date Milton Madison PCP - GeneralFamily Vsfchomg90/26/17 Gasper Fong VxexswpmfFeqzpketclo66/26/17 Mert Mcgovern MD Radiation Nkcpckvf90/27/17 Otoniel Adhikari MD [address] [place] [address] PhysicianHematology/Oncology03/20/19Team MemberRelationshipSpecialtyStart DateEnd Date Milton Madison PCP - GeneralFamily Mbbumdvf82/26/17 Gasper Fong FtiorfuvqXowwybsjdxt48/26/17 Mert Mcgovern MD Radiation Wstaywbi04/27/17 Otoniel Adhikari MD [address] [place] [address] PhysicianHematology/Oncology03/20/19Team MemberRelationshipSpecialtyStart DateEnd Date Milton Madison [facility] Kafglrfp52/26/17 Gasper Fong DkztstfbvKhprlqbjyqz34/26/17 Mert Mcgovern MD Radiation Rjukedvn99/27/17 Otoniel Adhikari MD [address] [place] [address] PhysicianHematology/Oncology03/20/19Team MemberRelationshipSpecialtyStart DateEnd Date Gasper Fong AjnqlasxyDuznzzkzvap93/26/17 Mert Mcgovern MD Radiation Vcsiflbh74/27/17 Otoniel Adhikari MD [address] [place] [address] PhysicianHematology/Oncology03/20/19Team MemberRelationshipSpecialtyStart DateEnd Date Gasper Fong PwgucwxfeMjbsodnwbtc90/26/17 Mert Mcgovern MD Radiation Opffajvy71/27/17 Otoniel Adhikari MD [address] [place] [address] PhysicianHematology/Oncology03/20/19Team MemberRelationshipSpecialtyStart DateEnd Date Gasper Fong WxzomohubKpnltrzpbjk57/26/17 Mert Mcgovern MD Radiation Smjcnvbu04/27/17 Otoniel Adhikari MD [address] [place] [address] PhysicianHematology/Oncology03/20/19 Otoniel Adhikari MD [address] [place] [address] ReferringHematology/Oncology08/23/22Te MemberRelationshipSpecialtyStart DateEnd Date Gasper Fong BqxqnfftwWdlmcodwske52/26/17 Mert Mcgovern MD Radiation Atfatmhy99/27/17 Otoniel Adhikari MD [address] [place] [address] PhysicianHematology/Oncology03/20/19 Otoniel Adhikari MD [address] [place] [address] ReferringHematology/Oncology08/23/22 Judi Howell [address] [place] [address] [facility]09/21/22Te MemberRelationshipSpecialtyStart DateEnd Date Gasper Fong SpukunoylOzpsdlgcetc20/26/17 Mert Mcgovern MD Radiation Ciruzdik88/27/17 Otoniel Adhikari MD [address] [place] [address] PhysicianHematology/Oncology03/20/19 Otoniel Adhikari MD [address] [place] [address] ReferringHematology/Oncology08/23/22 Judi Howell [address] [facility] [place] [address] [facility]09/21/22Te MemberRelationshipSpecialtyStart DateEnd Date Gasper Fong RytouuqkeWygxbgogbzh08/26/17 Mert Mcgovern MD Radiation Ypwhpbrl88/27/17 Otoniel Adhikari MD [address] [place] [address] PhysicianHematology/Oncology03/20/19 Otoniel Adhikari MD [address] [place] [address] ReferringHematology/Oncology08/23/22 Judi Howell [address] [place] [address] [facility]09/21/22Te MemberRelationshipSpecialtyStart DateEnd Date Gasper Fong PkwraiygsIjazmonfyfa42/26/17 Mert Mcgovern MD Radiation Yutgnaym14/27/17 Otoniel Adhikari MD [address] [place] [address] PhysicianHematology/Oncology03/20/19 Otoniel Adhikari MD [address] [place] [address] ReferringHematology/Oncology08/23/22 Judi Howell [address] [place] [address] [facility]09/21/22Te MemberRelationshipSpecialtyStart DateEnd Date Gasper Fong ShgipscycWhaqfiqcyjx35/26/17 Mert Mcgovern MD Radiation Vxxvjrnf01/27/17 Otoniel Adhikari MD [address] [place] [address] PhysicianHematology/Oncology03/20/19 Otoniel Adhikari MD [address] [facility] [place] [address] ReferringHematology/Oncology08/23/22 Judi Howell [address] [place] [address] Family Medicine09/21/22Team MemberRelationshipSpecialtyStart DateEnd Date Gasper Fong AajcwzylkDnkueiugwsb32/26/17 Mert Mcgovern MD Radiation Jjtrbvyn76/27/17 Otoniel Adhikari MD [address] [facility] [place] [address] PhysicianHematology/Oncology03/20/19 Otoniel Adhikari MD [address] [place] [address] ReferringHematology/Oncology08/23/22 Judi Howell [address] [place] [address] [facility]09/21/22Team MemberRelationshipSpecialtyStart DateEnd Date Gasper Fong DO QzscyrukwDlwpouvsotm85/26/17 Mert Mcgovern MD Radiation Dosewyoq30/27/17 Otoniel Adhikari MD [address] [place] [address] PhysicianHematology/Oncology03/20/19 Otoniel Adhikari MD [address] [place] [address] ReferringHematology/Oncology08/23/22 Judi Howell [address] [place] [address] [facility]09/21/22Team MemberRelationshipSpecialtyStart DateEnd Date Gasper Fong DO XhqivsifrJphfjwjamjz38/26/17 Mert Mcgovern MD Radiation Nnsoizcz10/27/17 Otoniel Adhikari MD [address] [place] [address] PhysicianHematology/Oncology03/20/19 Otoniel Adhikari MD [address] [place] [address] ReferringHematology/Oncology08/23/22 Judi Howell [address] [place] [address] [facility]09/21/22Team MemberRelationshipSpecialtyStart DateEnd Date Gasper Fong DO InhqcduyzTgcmbggvdlo77/26/17 Mert Mcgovern MD Radiation Wfxktang16/27/17 Otoniel Adhikari MD [address] [facility] [place] [address] PhysicianHematology/Oncology03/20/19 Otoniel Adhikari MD [address] [facility] [place] [address] ReferringHematology/Oncology08/23/22 Judi Howell [address] [place] [address] [facility]09/21/22Team MemberRelationshipSpecialtyStart DateEnd Date LambertonGasper DO JprawvfxuWpgrsiygyus23/26/17 Mert Mcgovern MD Radiation Yhfhqvvg09/27/17 Otoniel Adhikari MD [address] [facility] [place] [address] PhysicianHematology/Oncology03/20/19 Otoniel Adhikari MD [address] [facility] [place] [address] ReferringHematology/Oncology08/23/22 Judi Howell [address] [place] [address] [facility]09/21/22Te MemberRelationshipSpecialtyStart DateEnd Date Gasper Fong DO HvzkiimpbMtxxbmqzbgm64/26/17 Mert Mcgovern MD Radiation Qsnioztn94/27/17 Otoniel Adhikari MD [address] [place] [address] PhysicianHematology/Oncology03/20/19 Otoniel Adhikari MD [address] [place] [address] ReferringHematology/Oncology08/23/22 Judi Howell [address] [place] [address] [facility]09/21/22Te MemberRelationshipSpecialtyStart DateEnd Date Gasper Fong DO YquylamatDndpgjkrqpa35/26/17 Mert Mcgovern MD Radiation Zksywjut53/27/17 Otoniel Adhikari MD [address] [place] [address] PhysicianHematology/Oncology03/20/19 Otoniel Adhikari MD [address] [place] [address] ReferringHematology/Oncology08/23/22 Judi Howell [address] [place] [address] [facility]09/21/22Team MemberRelationshipSpecialtyStart DateEnd Date Gasper Fong DO QkeasnlgfWigrdhoosez83/26/17 Mert Mcgovern MD Radiation Gvatqgfo76/27/17 Otoniel Adhikari MD [address] [place] [address] PhysicianHematology/Oncology03/20/19 Otoniel Adhikari MD [address] [place] [address] ReferringHematology/Oncology08/23/22 Judi Howell [address] [place] [address] [facility]09/21/22Te MemberRelationshipSpecialtyStart DateEnd Date Gasper Fong DO EgmvcbcpqArmhbjolojk76/26/17 Mert Mcgovern MD Radiation Tmbbffni75/27/17 Otoniel Adhikari MD [address] [place] [address] PhysicianHematology/Oncology03/20/19 Otoniel Adhikari MD [address] [facility] [place] [address] ReferringHematology/Oncology08/23/22Te MemberRelationshipSpecialtyStart DateEnd Date Gasper Fong DO WmimbmjvhOmvrqoqffky01/26/17 Mert Mcgovern MD Radiation Qqsemoik31/27/17 Otoniel Adhikari MD [address] [facility] [place] [address] PhysicianHematology/Oncology03/20/19 Otoniel Adhikari MD [address] [facility] [place] [address] ReferringHematology/Oncology08/23/22 Judi Howell [address] [place] [address] Family [facility]09/21/22Te MemberRelationshipSpecialtyStart DateEnd Date Gasper Fong DO GisjyieknUeihfzgsasm40/26/17 Mert Mcgovern MD Radiation Xexdhxbi67/27/17 Otoniel Adhikari MD [address] [place] [address] PhysicianHematology/Oncology03/20/19 Otoniel Adhikari MD [address] [place] [address] ReferringHematology/Oncology08/23/22 Judi Howell [address] [place] [address] [facility]09/21/22Team MemberRelationshipSpecialtyStart DateEnd Date Gasper Fong DO RpeultnfyAsejfzfomei99/26/17 Mert Mcgovern MD Radiation Qedcvgrf94/27/17 Otoniel Adhikari MD [address] [place] [address] PhysicianHematology/Oncology03/20/19 Otoniel Adhikari MD [address] [facility] [place] [address] ReferringHematology/Oncology08/23/22 Judi Howell [address] [place] [phone] [facility]09/21/22Team MemberRelationshipSpecialtyStart DateEnd Date Gasper Fong DO ZxassznjsHcsargtgqan56/26/17 Mert Mcgovern MD Radiation Vowyoryj89/27/17 Otoniel Adhikari MD [address] [facility] [place] [address] PhysicianHematology/Oncology03/20/19 Otoniel Adhikari MD [address] [facility] [place] [address] ReferringHematology/Oncology08/23/22 Judi Howell [address] [place] [address] [facility]09/21/22Team MemberRelationshipSpecialtyStart DateEnd Date Gasper Fong DO LtjaolzguQaotntxicsi52/26/17 Mert Mcgovern MD Radiation Zxfvskzk95/27/17 Otoniel Adhikari MD [address] [place] [address] [place] [address] ReferringHematology/Oncology08/23/22 Judi Howell [address] [place] [address] [facility]09/21/22 Mila Briscoe, RN [address] [facility] [place] [address] Specialty Care CoordinatorHematology/Oncology05/05/23 Raphael Jolley PA-C [address] [facility] [place] [address] Physician AssistantHematology/Oncology05/05/23Team MemberRelationshipSpecialty Start DateEnd Date Gasper Fong DO EmvperpcnQkchkvfllgv32/26/17 Mert Mcgovern MD Radiation Rjfjbpot28/27/17 Otoniel Adhikari MD [address] [place] [address] [place] [address] ReferringHematology/Oncology08/23/22 Judi Howell [address] [place] [address] Family [facility]09/21/22 Mila Briscoe RN [address] [facility] [place] [address] Specialty Care CoordinatorHematology/Oncology05/05/23 Raphael Jolley PA-C [address] [facility] [place] [address] Physician AssistantHematology/Oncology05/05/23Te MemberRelationshipSpecialty Start DateEnd Date Ajit Gasper Mendoza WwhslueivWckupgbonuu78/26/17 Mert Mcgovern MD Radiation Jwokcbod10/27/17 Otoniel Adhikari MD [address] [facility] [place] [address] ReferringHematology/Oncology08/23/22 Judi Howell [address] [place] [address] Family Medicine09/21/22 Mila Briscoe, ALLYSSA [address] [place] [address] Specialty Care CoordinatorHematology/Oncology05/05/23 Raphael Jolley, PA-C [address] [facility] [place] [address] Physician AssistantHematology/Oncology05/05/23Team MemberRelationshipSpecialty Start DateEnd Date Gasper Fong DO VqudcptynYlnwsbvubtc23/26/17 Mert Mcgovern MD Radiation Skriwcic57/27/17 Otoniel Adhikari MD [address] [facility] [place] [address] ReferringHematology/Oncology08/23/22 Judi Howell [address] [place] [address] [facility] Medicine09/21/22 Mila Briscoe RN [address] [place] [address] Specialty Care CoordinatorHematology/Oncology05/05/23 Raphael Jolley, PA-C [address] [place] [address] Physician AssistantHematology/Oncology05/05/23Team MemberRelationshipSpecialty Start DateEnd Date Gasper Fong DO NiavaeuzkBevwtzkutcd09/26/17 Mert Mcgovern MD Radiation Eapyvqef40/27/17 Otoniel Adhikari MD [address] [facility] [place] [address] ReferringHematology/Oncology08/23/22 Judi Howell [address] [place] [address] Family Medicine09/21/22 Mila Briscoe, RN [address] [facility] [place] [address] Specialty Care CoordinatorHematology/Oncology05/05/23 Raphael Jolley PA-C [address] [facility] [place] [address] Physician AssistantHematology/Oncology05/05/23Team MemberRelationshipSpecialty Start DateEnd Date Gasper Fong DO HbtnwehctMtzguqhkzpx35/26/17 Mert Mcgovern MD Radiation Qlmgnfhr18/27/17 Otoniel Adhikari MD [address] [facility] [place] [address] ReferringHematology/Oncology08/23/22 Judi Howell [address] [place] [address] [facility]09/21/22 Mila Briscoe, RN [address] [facility] [place] [address] Specialty Care CoordinatorHematology/Oncology05/05/23 Raphael Jolley PA-C [address] [facility] [place] [address] Physician AssistantHematology/Oncology05/05/23Team MemberRelationshipSpecialty Start DateEnd Date Gasper Fong DO DihxejqniTwagubgihdq78/26/17 Mert Mcgovern MD Radiation Efqkvodh90/27/17 Otoniel Adhikari MD [address] [facility] [place] [address] ReferringHematology/Oncology08/23/22 Judi Howell [address] [place] [address] [facility]09/21/22 Mila Briscoe, ALLYSSA [address] [facility] [place] [address] Specialty Care CoordinatorHematology/Oncology05/05/23 Raphael Jolley PA-C [address] [facility] [place] [address] Physician AssistantHematology/Oncology05/05/23Team MemberRelationshipSpecialty Start DateEnd Date Lamberton Gasper MendozaDO MhvzxedgcAvadytrovsb21/26/17 Mert Mcgovern MD Radiation Dlajbhcp79/27/17 Otoniel Adhikari MD [address] [facility] [place] [address] ReferringHematology/Oncology08/23/22 Judi Howell [address] [place] [address] [facility]09/21/22 Mila Briscoe RN [address] [facility] [place] [address] Specialty Care CoordinatorHematology/Oncology05/05/23 Raphael Jolley PA-C [address] [facility] [place] [address] Physician AssistantHematology/Oncology05/05/23Team MemberRelationshipSpecialty Start DateEnd Date Ajit Gasper MendozaDO OwlqlecxeCvtscbievsv64/26/17 Mert Mcgovern MD Radiation Odnzhins91/27/17 Otoniel Adhikari MD [address] [facility] [place] [address] ReferringHematology/Oncology08/23/22 Judi Howell [address] [place] [phone] Family Medicine09/21/22 Mila Briscoe, ALLYSSA [address] [facility] [place] [address] Specialty Care CoordinatorHematology/Oncology05/05/23 Raphael Jolley PA-C [address] [facility] [place] [address] Physician AssistantHematology/Oncology05/05/23Team MemberRelationshipSpecialty Start DateEnd Date Gasper Fong DO ZumcvxlheBluxzwjkenx44/26/17 Mert Mcgovern MD Radiation Lmvlkkem41/27/17 Otoniel Adhikari MD [address] [facility] [place] [address] ReferringHematology/Oncology08/23/22 Judi Howell [address] [place] [address] [facility] Medicine09/21/22 Mila Briscoe RN [address] [facility] [place] [address] Specialty Care CoordinatorHematology/Oncology05/05/23 Raphael Jolley, PA-Moisés [address] [facility] [place] [address] Physician AssistantHematology/Oncology05/05/23Team MemberRelationshipSpecialty Start DateEnd Date Gasper Fong DO IjnhfdzoqUxlysonelkp48/26/17 Mert Mcgovern MD Radiation Bfsvkleb64/27/17 Otoniel Adhikari MD [address] [facility] [place] [address] ReferringHematology/Oncology08/23/22 Judi Howell [address] [place] [address] [facility]09/21/22 Mila Briscoe RN [address] [facility] [place] [place] [address] Specialty Care CoordinatorHematology/Oncology05/05/23 Raphael Jolley PA-C [address] [facility] [place] [address] Physician AssistantHematology/Oncology05/05/23Team MemberRelationshipSpecialty Start DateEnd Date Ajit Gasper MendozaDO PmewciuewRvksooyreok45/26/17 Mert Mcgovern MD Radiation Ekcqmisn24/27/17 Otoniel Adhikari MD [address] [facility] [place] [address] ReferringHematology/Oncology08/23/22 Judi Howell [address] [place] [phone] Family Medicine09/21/22 Mila Briscoe RN [address] [facility] [place] [address] Specialty Care CoordinatorHematology/Oncology05/05/23 Raphael Jolley PA-C [address] [facility] [place] [address] Physician AssistantHematology/Oncology05/05/23Team MemberRelationshipSpecialty Start DateEnd Date Gasper Fong DO FagssmeqkEdwecvmanyj31/26/17 Mert Mcgovern MD Radiation Cvmbcxff03/27/17 Otoniel Adhikari MD [address] [facility] [place] [address] ReferringHematology/Oncology08/23/22 Judi Howell [address] [place] [address] [facility]09/21/22 Mila Briscoe RN [address] [facility] [place] [address] Specialty Care CoordinatorHematology/Oncology05/05/23 Raphael Jolley PA-C [address] [facility] [place] [address] Physician AssistantHematology/Oncology05/05/23Team MemberRelationshipSpecialty Start DateEnd Date Gasper Fong DO XrrtwatwiDteckbossmc35/26/17 Mert Mcgovern MD Radiation Ffjdtfdz98/27/17 Otoniel Adhikari MD [address] [facility] [place] [address] ReferringHematology/Oncology08/23/22 Judi Howell [address] [place] [address] [facility]09/21/22 Mila Briscoe RN [address] [facility] [place] [address] Specialty Care CoordinatorHematology/Oncology05/05/23 Raphael Jolley PA-C [address] [facility] [place] [address] Physician AssistantHematology/Oncology05/05/23Team MemberRelationshipSpecialty Start DateEnd Date Gasper Fong DO BaeaktppvXeaffayrntl48/26/17 Mert Mcgovern MD Radiation Tyauyzpx61/27/17 Otoniel Adhikari MD [address] [place] [address] ReferringHematology/Oncology08/23/22 Judi Howell [address] [place] [phone] [facility]09/21/22 Mila Briscoe RN [address] [facility] [place] [address] Specialty Care CoordinatorHematology/Oncology05/05/23 Rahpael Jolley PA-C [address] [facility] [place] [address] Physician AssistantHematology/Oncology05/05/23Team MemberRelationshipSpecialty Start DateEnd Date Gasper Fong DO JyvhrufcuJdehrfwdlum72/26/17 Mert Mcgovern MD Radiation Tiwtbjsb66/27/17 Otoniel Adhikari MD [address] [facility] [place] [address] ReferringHematology/Oncology08/23/22 Judi Howell [address] [place] [address] Family Medicine09/21/22 Mila Briscoe, RN [address] [facility] [place] [address] Specialty Care CoordinatorHematology/Oncology05/05/23 Raphael Jolley PA-C [address] [place] [address] Physician AssistantHematology/Oncology05/05/23Team MemberRelationshipSpecialty Start DateEnd Date Gasper Fong DO RqdkfltxqUsewxmvrzkc88/26/17 Mert Mcgovern MD Radiation Pkdmzaig02/27/17 Otoniel Ahdikari MD [address] [facility] [place] [address] ReferringHematology/Oncology08/23/22 Judi Howell [address] [place] [address] [facility]09/21/22 Mila Briscoe, RN [address] [facility] [place] [address] Specialty Care CoordinatorHematology/Oncology05/05/23 Raphael Jolley PA-C [address] [facility] [place] [address] Physician AssistantHematology/Oncology05/05/23Team MemberRelationshipSpecialty Start DateEnd Date Gasper FongwDO FceghmngzLaldrtzpzhs43/26/17 Mert Mcgovern MD Radiation Kujgzwlp91/27/17 Otoniel Adhikari MD [address] [facility] [place] [address] ReferringHematology/Oncology08/23/22 Judi Howell [address] [place] [address] [facility]09/21/22 Mila Briscoe, RN [address] [facility] [place] [address] Specialty Care CoordinatorHematology/Oncology05/05/23 Raphael Jolley PA-C [address] [facility] [place] [address] Physician AssistantHematology/Oncology05/05/23Team MemberRelationshipSpecialty [place]alei DateEnd Date Gasper Fong DO QwbskcbmhWtkjsjhdivf35/26/17 Mert Mcgovern MD Radiation Xcxhalmz45/27/17 Judi Howell [address] [place] [address] [facility]09/21/22 Mila Briscoe RN [address] [facility] [place] [address] Specialty Care CoordinatorHematology/Oncology05/05/23 Raphael Jolley PA-C [address] [facility] [place] [address] Physician AssistantHematology/Oncology05/05/23 Michael Britton MD [address] [facility] [place] [address] PhysicianHematology/Oncology11/15/23Team MemberRelationshipSpecialtyStart DateEnd Date Ajit Gasper MendozaDO YbvsyrucjUunjyyusgol34/26/17 Mert Mcgovern MD Radiation Vxniseda09/27/17 Judi Howell [address] [place] [address] Family Medicine09/21/22 Mila Briscoe RN [address] [facility] [place] [address] Specialty Care CoordinatorHematology/Oncology05/05/23 Raphael Jolley, VICKI [address] [facility] [place] [address] Physician AssistantHematology/Oncology05/05/23 Michael Britton MD [address] [facility] [place] [address] PhysicianHematology/Oncology11/15/23Team MemberRelationshipSpecialtyStart DateEnd Date Gasper Fong DO FwagsksooXpkplpjqdxv28/26/17 Mert Mcgovern MD Radiation Nbhzspzi58/27/17 Otoniel Adhikari MD [address] [facility] [place] [address] ReferringHematology/Oncology08/23/ Judi Howell [address] [place] [address] Family Medicine09/21/22 Mila Briscoe, RN [address] [facility] [place] [address] Specialty Care CoordinatorHematology/Oncology05/05/23 Raphael Jolley, VICKI [address] [facility] [place] [address] Physician AssistantHematology/Oncology05/05/23Team MemberRelationshipSpecialty Start DateEnd Date Gasper Fong NicolasaDO LvfuwmeboEixlhaceybs66/26/17 Mert Mcgovern MD Radiation Xtudqdca78/27/17 Otoniel Adhikari MD [address] [facility] [facility] [place] [address] ReferringHematology/Oncology Judi Howell [address] [place] [address] Family [facility]09/21/22 Mila Briscoe RN [address] [facility] [place] [address] Specialty Care CoordinatorHematology/Oncology05/05/23 Raphael Jolley PA-C [address] [facility] [place] [address] Physician AssistantHematology/Oncology05/05/23Team MemberRelationshipSpecialty Start DateEnd Date Gasper Fong DO RomuccrovUmcbjkjnkit66/26/17 Mert Mcgovern MD Radiation Ermdozjh06/27/17 Otoniel Adhikari MD [address] [facility] [place] [address] PhysicianHematology/Oncology Otoniel Adhikari MD [address] [facility] [place] [address] ReferringHematology/Oncology Judi Howell [address] [place] [address] [facility]09/21/22Team MemberRelationshipSpecialtyStart DateEnd Date Gasper Fong DO ThyfozakoUxqwflntkdd30/26/17 Mert Mcgovern MD Radiation Pvvhhkkf58/27/17 Otoniel Adhikari MD [address] [facility] [place] [address] PhysicianHematology/Oncology Otoniel Adhikari MD [address] [facility] [place] [address] ReferringHematology/Oncology Judi Howell [address] [place] [address] [facility]09/21/22Team MemberRelationshipSpecialtyStart DateEnd Date Gasper Fong DO MhjmncpunNjejsvjsvzt06/26/17 Mert Mcgovern MD Radiation Mlizqcim86/27/17 Otoniel Adhikari MD [address] [facility] [place] [address] PhysicianHematology/Oncology03/20/ Otoniel Adhikari MD [address] [facility] [place] [address] ReferringHematology/Oncology Judi Howell [address] [place] [address] Family Medicine09/21/22Team MemberRelationshipSpecialtyStart DateEnd Date Gasper Fong DO TymtblyuxNcikidecfko21/26/17 Mert Mcgovern MD Radiation Wzlzmlms41/27/17 Judi Howell [address] [place] [address] Family Medicine09/21/22 Mila Briscoe, ALLYSSA [address] [facility] [place] [address] Specialty Care CoordinatorHematology/Oncology05/05/23 Raphael Jolley, PABenC [address] [facility] [place] [address] Physician AssistantHematology/Oncology05/05/23 Michael Britton MD [address] [place] [address] [place] [address] PhysicianHematology/Oncology11/15/23Team MemberRelationshipSpecialtyStart DateEnd Date Gasper Fong DO YfdxlxhkmGqmmzrwmptf52/26/17 Mert Mcgovern MD Radiation Nmllmcfy81/27/17 Otoniel Adhikari MD [address] [place] [address] [place] [address] PhysicianHematology/OncologyTeam MemberRelationshipSpecialtyStart DateEnd Date [place] PCP - GeneralFamily Cepfheav14/26/175 Gasper Fong DO HjvmlosaoJcyuaobnbqu63/26/17 Mert Mcgovern MD Radiation Immtvevw79/27/17 Otoniel Adhikari MD [address] [place] [address] [place] [address] PhysicianHematology/OncologyTeam MemberRelationshipSpecialtyStart DateEnd Date [place] PCP - GeneralFamily Hydpreqz45/26/175 Gasper Fong DO YrobqbgtwTlwovbzvobg14/26/17 Mert Mcgovern MD Radiation Zezeetmt23/27/17 Otoniel Adhikari MD [address] [place] [address] PhysicianHematology/OncologyTeam MemberRelationshipSpecialtyStart DateEnd Date [place] PCP - GeneralFamily Schtswjb85/26/175 Gasper Fong DO HtarsewcnIijbfldarua82/26/17 Mert Mcgovern MD Radiation Vqqmkxcd55/27/17 Otoniel Adhikari MD [address] [place] [address] PhysicianHematology/OncologyTeam MemberRelationshipSpecialtyStart DateEnd Date [place] DO PCP - GeneralFamily Syoccnpk61/26/175 Gasper Fong DO JucpmsizcBsxeeqebpzq21/26/17 Mert Mcgovern MD Radiation Knidflyb18/27/17 Otoniel Adhikari MD [address] [place] [address] PhysicianHematology/OncologyTeam MemberRelationshipSpecialtyStart DateEnd Date [place] DO PCP - GeneralFamily Bsalvpih83/26/175 Gasper Fong DO ZpenbocxxPzybiuueuli19/26/17 Mert Mcgovern MD Radiation Saupvqtm13/27/17 Otoniel Adhikari MD [address] [place] [address] PhysicianHematology/OncologyTeam MemberRelationshipSpecialtyStart DateEnd Date Gasper Fong DO YojrljebnOnvjnrizbvx14/26/17 Mert Mcgovern MD Radiation Mwtlngkd60/27/17 Judi Howell [address] [place] [address] Family Medicine09/21/22 Mila Briscoe RN [address] [facility] [place] [address] Specialty Care CoordinatorHematology/Oncology05/05/23 Raphael Jolley PA-C [address] [facility] [place] [address] Physician AssistantHematology/Oncology05/05/23 Michael Britton MD [address] [facility] [place] [address] PhysicianHematology/Oncology11/15/23Team MemberRelationshipSpecialtyStart DateEnd Date Gasper Fong DO LuurgbnxsGzreewigbrx71/26/17 Mert Mcgovern MD Radiation Xorfnpek86/27/17 Judi Howell [address] [place] [address] Family Medicine09/21/22 Mila Briscoe, RN [address] [facility] [place] [address] Specialty Care CoordinatorHematology/Oncology05/05/23 Raphael Jolley PA-C [address] [facility] [place] [address] Physician AssistantHematology/Oncology05/05/23 Michael Britton MD [address] [facility] [place] [address] PhysicianHematology/Oncology11/15/23Team MemberRelationshipSpecialtyStart DateEnd Date Gasper Fong DO WsmtyqdiuVwpggkmmnev09/26/17 Mert Mcgovern MD Radiation Czbyiehc35/27/17 Judi Howell [address] [place] [address] [facility] Medicine09/21/22 Mila Briscoe, RN [address] [facility] [place] [address] Specialty Care CoordinatorHematology/Oncology05/05/23 Raphael Jolley PA-C [address] [facility] [place] [address] Physician AssistantHematology/Oncology05/05/23 Michael Britton MD [address] [facility] [place] [address] PhysicianHematology/Oncology11/15/23Team MemberRelationshipSpecialtyStart DateEnd Date Gasper FongwDO YrygxwxiiPifkftvmerp91/26/17 Mert Mcgovern MD Radiation Rpjeohox19/27/17 Judi Howell [address] [place] [address] [facility]09/21/22 Mila Briscoe, RN [address] [facility] [place] [address] Specialty Care CoordinatorHematology/Oncology05/05/23 Raphael Jolley PA-C [address] [facility] [place] [address] Physician AssistantHematology/Oncology05/05/23 Michael Britton MD [address] [facility] [place] [address] PhysicianHematology/Oncology11/15/23Team MemberRelationshipSpecialtyStart DateEnd Date Gasper Fong DO YnhdchomcYjnerzbglxq49/26/17 Mert Mcgovern MD Radiation Chwxrqbi17/27/17 Judi Howell [address] [place] [address] Family [facility]09/21/22 Mila Briscoe RN [address] [facility] [place] [address] Specialty Care CoordinatorHematology/Oncology05/05/23 Raphael Jolley PA-C [address] [facility] [place] [address] Physician AssistantHematology/Oncology05/05/23 Michael Britton MD [address] [facility] [place] [address] PhysicianHematology/Oncology11/15/23Team MemberRelationshipSpecialtyStart DateEnd Date Gasper Fong DO HvvxvtisvTpxarzdlgnp66/26/17 Mert Mcgovern MD Radiation Wxxzlhby11/27/17 Judi Howell [address] [place] [address] [facility] Medicine09/21/22 Mila Briscoe RN [address] [facility] [place] [address] Specialty Care CoordinatorHematology/Oncology05/05/23 Raphael Jolley PA-C [address] [facility] [place] [address] Physician AssistantHematology/Oncology05/05/23 Michael Britton MD [address] [facility] [place] [address] PhysicianHematology/Oncology11/15/23Team MemberRelationshipSpecialtyStart DateEnd Date Gasper Fong DO OxttlxluxBcdkzwcphiy50/26/17 Mert Mcgovern MD Radiation Xvpbdgpj71/27/17 Judi Howell [address] [place] [address] [facility]09/21/22 Mila Briscoe, ALLYSSA [address] [facility] [place] [address] Specialty Care CoordinatorHematology/Oncology05/05/23 Raphael Jolley PA-C [address] [facility] [place] [address] Physician AssistantHematology/Oncology05/05/23 Michael Britton MD [address] [place] [address] [place] [address] PhysicianHematology/Oncology11/15/23Team MemberRelationshipSpecialtyStart DateEnd Date Gasper Fong DO BlvbjgbvmLslhegoxcan16/26/17 Mert Mcgovern MD Radiation Wzezjuvc28/27/17 Judi Howell [address] [place] [address] Family Medicine09/21/22 Mila Briscoe RN [address] [facility] [place] [address] Specialty Care CoordinatorHematology/Oncology05/05/23 Raphael Jolley PA-C [address] [place] [address] [place] [address] Physician AssistantHematology/Oncology05/05/23 Michael Britton MD [address] [place] [address] [place] [address] PhysicianHematology/Oncology11/15/23Team MemberRelationshipSpecialtyStart DateEnd Date Gasper Fong DO ZttfyzbktUniqpfojsbk40/26/17 Mert Mcgovern MD Radiation Zpuovbxu45/27/17 Judi Howell [address] [place] [address] [facility]09/21/22 Mila Briscoe, RN [address] [facility] [place] [address] Specialty Care CoordinatorHematology/Oncology05/05/23 Raphael Jolley, PA-C [address] [facility] [place] [address] Physician AssistantHematology/Oncology05/05/23 Michael Britton MD [address] [facility] [place] [address] PhysicianHematology/Oncology11/15/23Team MemberRelationshipSpecialtyStart DateEnd Date Gasper Fong DO DiiqpetjuLghqaeslpwg54/26/17 Mert Mcgovern MD Radiation Kcejzfjp07/27/17 Judi Howell [address] [place] [address] [facility]09/21/22 Mila Briscoe, RN [address] [facility] [place] [address] Specialty Care CoordinatorHematology/Oncology05/05/23 Raphael Jolley, PA-C [address] [facility] [place] [address] Physician AssistantHematology/Oncology05/05/23 Michael Britton MD [address] [facility] [place] [address] PhysicianHematology/Oncology11/15/23Team MemberRelationshipSpecialtyStart DateEnd Date Gasper Fong DO ArlapcwcwMhbojmzrtps98/26/17 Mert Mcgovern MD Radiation Gmndljhj85/27/17 Judi Howell [address] [place] [address] Family [facility]09/21/22 Mila Briscoe RN [address] [facility] [place] [address] Specialty Care CoordinatorHematology/Oncology05/05/23 Raphael Jolley PA-C [address] [facility] [place] [address] Physician AssistantHematology/Oncology05/05/23 Michael Britton MD [address] [facility] [place] [address] PhysicianHematology/Oncology11/15/23Team MemberRelationshipSpecialtyStart DateEnd Date Gasper Fong DO OhrbjwudrNfexeysnnfw96/26/17 Mert Mcgovern MD Radiation Vcfydarv13/27/17 Judi Howell [address] [place] [address] [facility]09/21/22 Mila Briscoe, RN [address] [place] [address] Specialty Care CoordinatorHematology/Oncology05/05/23 Raphael Jolley PA-C [address] [place] [address] Physician AssistantHematology/Oncology05/05/23 Michael Britton MD [address] [facility] [address] PhysicianHematology/Oncology11/15/23Team MemberRelationshipSpecialtyStart DateEnd Date Gasper Fong DO SqmngrnwrPnmmbhedory83/26/17 Mert Mcgovern MD Radiation Texkxjta45/27/17 Judi Howell [address] [place] [address] [facility]09/21/22 Mila Briscoe, RN [address] [place] [address] Specialty Care CoordinatorHematology/Oncology05/05/23 Raphael Jolley PA-C [address] [place] [address] Physician AssistantHematology/Oncology05/05/23 Michael Britton MD [address] [place] [address] PhysicianHematology/Oncology11/15/23Te MemberRelationshipSpecialtyStart DateEnd Date Gasper Fong DO TzscqeejlRwahyrcraht78/26/17 Mert Mcgovern MD Radiation Lubixrda35/27/17 Judi Howell [address] [place] [address] [facility]09/21/22 Mila Briscoe RN [address] [facility] [place] [address] Specialty Care CoordinatorHematology/Oncology05/05/23 Raphael Jolley PA-C [address] [facility] [place] [address] Physician AssistantHematology/Oncology05/05/23 Michael Britton MD [address] [facility] [place] [address] PhysicianHematology/Oncology11/15/23Te MemberRelationshipSpecialtyStart DateEnd Date Gasper Fong DO IiacsdprwPiceotfdsiz44/26/17 Mert Mcgovern MD Radiation Vqrdqrex02/27/17 Judi Howell [address] [place] [address] Family Medicine09/21/22 Mila Briscoe, ALLYSSA [address] [facility] [place] [address] Specialty Care CoordinatorHematology/Oncology05/05/23 Raphael Jolley, VICKI [address] [place] [address] [place] [address] Physician AssistantHematology/Oncology05/05/23 Michael Britton MD [address] [place] [address] [place] [address] PhysicianHematology/Oncology11/15/23Team MemberRelationshipSpecialtyStart DateEnd Date Merry Mejias DO [address] [address] Referring PhysicianNeurology1/05/07Team MemberRelationshipSpecialtyStart DateEnd Date Merry Mejias DO [address] [address] Referring PhysicianNeurology1/05/07Team MemberRelationshipSpecialtyStart DateEnd Date Gasper Fong DO FajojtcazPuliihkuatl49/26/17 Mert Mcgovern MD Radiation Xlmszopx68/27/17 Judi Howell [address] [place] [address] [facility] Medicine09/21/22 Mila Briscoe RN [address] [facility] [place] [address] Specialty Care CoordinatorHematology/Oncology05/05/23 Raphael Jolley PA-C [address] [facility] [place] [address] Physician AssistantHematology/Oncology05/05/23 Michael Britton MD [address] [facility] [place] [address] PhysicianHematology/Oncology11/15/23Team MemberRelationshipSpecialtyStart DateEnd Date Gasper Fong DO PozaqknxuQwxnwmeunbz07/26/17 Mert Mcgovern MD Radiation Flpdyvdw93/27/17 Judi Howell [address] [place] [address] Family Medicine09/21/22 Mila Briscoe RN [address] [facility] [place] [address] Specialty Care CoordinatorHematology/Oncology05/05/23 Raphael Jolley PA-C [address] [facility] [place] [address] Physician AssistantHematology/Oncology05/05/23 Michael Britton MD [address] [facility] [place] [address] PhysicianHematology/Oncology11/15/23Team MemberRelationshipSpecialtyStart DateEnd Date Gasper Fong DO QacllvgxtHuqftxoolch51/26/17 Mert Mcgovern MD Radiation Occgmddb25/27/17 Judi Howell [address] [place] [address] Family Medicine09/21/22 Mila Briscoe, RN [address] [facility] [place] [address] Specialty Care CoordinatorHematology/Oncology05/05/23 Raphael Jolley PA-C [address] [facility] [place] [address] Physician AssistantHematology/Oncology05/05/23 Michael Britton MD [address] [facility] [place] [address] PhysicianHematology/Oncology11/15/23Team MemberRelationshipSpecialtyStart DateEnd Date Gasper Fong DO ApohdhyvqGryktqoytem15/26/17 Mert Mcgovern MD Radiation Bnxdjeqv25/27/17 Judi Howell [address] [place] [address] [facility]09/21/22 Mila Briscoe, RN [address] [facility] [place] [address] Specialty Care CoordinatorHematology/Oncology05/05/23 Raphael Jolley PA-C [address] [facility] [place] [address] Physician AssistantHematology/Oncology05/05/23 Michael Britton MD [address] [facility] [place] [address] PhysicianHematology/Oncology11/15/23Team MemberRelationshipSpecialtyStart DateEnd Date Gasper Fong DO MxgsgtrhkJxrjhqeswbh47/26/17 Mert Mcgovern MD Radiation Hupcfbht99/27/17 Judi Howell [address] [place] [address] Family Medicine09/21/22 Mila Briscoe RN [address] [facility] [place] [address] Specialty Care CoordinatorHematology/Oncology05/05/23 Raphael Jolley, PABenC [address] [facility] [place] [address] Physician AssistantHematology/Oncology05/05/23 Michael Britton MD [address] [facility] [place] [address] PhysicianHematology/Oncology11/15/23Team MemberRelationshipSpecialtyStart DateEnd Date Gasper Fong DO TijeqsfvgNpizlutteho78/26/17 Mert Mcgovern MD Radiation Giogbezd46/27/17 Judi Howell [address] [place] [address] [facility]09/21/22 Mila Briscoe, RN [address] [facility] [place] [address] Specialty Care CoordinatorHematology/Oncology05/05/23 Raphael Jolley PA-C [address] [facility] [place] [address] Physician AssistantHematology/Oncology05/05/23 Michael Britton MD [address] [facility] [place] [address] PhysicianHematology/Oncology11/15/23Team MemberRelationshipSpecialtyStart DateEnd Date Ajit Gasper MendozaDO NchgraljzQbrenagtmfk94/26/17 Mert Mcgovern MD Radiation Haxiasfk81/27/17 Judi Howell [address] [place] [address] [facility]09/21/22 Mila Briscoe RN [address] [facility] [place] [address] Specialty Care CoordinatorHematology/Oncology05/05/23 Raphael Jolley PA-C [address] [facility] [place] [address] Physician AssistantHematology/Oncology05/05/23 Michael Britton MD [address] [facility] [place] [address] PhysicianHematology/Oncology11/15/23Team MemberRelationshipSpecialtyStart DateEnd Date Ajit Gasper Mendoza BudhsumqnWtapgxavocs80/26/17 Mert Mcgovern MD Radiation Pzrukebs36/27/17 Judi Howell [address] [place] [address] Family [facility]09/21/22 Mila Briscoe RN [address] [facility] [place] [address] Specialty Care CoordinatorHematology/Oncology05/05/23 Raphael Jolley PA-C [address] [facility] [place] [address] Physician AssistantHematology/Oncology05/05/23 Michael Britton MD [address] [facility] [place] [address] PhysicianHematology/Oncology11/15/23Team MemberRelationshipSpecialtyStart DateEnd Date Ajit Gasper Mendoza, KqosbnukuDzjgaaoasel70/26/17 Mert Mcgovern MD Radiation Jqwxnnrh40/27/17 Judi Howell [address] [place] [address] [facility]09/21/22 Mila Briscoe RN [address] [facility] [place] [address] Specialty Care CoordinatorHematology/Oncology05/05/23 Raphael Jolley PA-C [address] [facility] [place] [address] Physician AssistantHematology/Oncology05/05/23 Michael Britton MD [address] [facility] [place] [address] PhysicianHematology/Oncology11/15/23Team MemberRelationshipSpecialtyStart DateEnd Date Gasper Fong DO BlsjsdrhdCgjytuuveni37/26/17 Mert Mcgovern MD Radiation Qrhklebn02/27/17 Judi Howell [address] [place] [address] [facility]09/21/22 Mila Briscoe RN [address] [facility] [place] [address] Specialty Care CoordinatorHematology/Oncology05/05/23 Raphael Jolley, PA-C [address] [facility] [place] [address] Physician AssistantHematology/Oncology05/05/23 Michael Britton MD [address] [facility] [place] [address] PhysicianHematology/Oncology11/15/23Team MemberRelationshipSpecialtyStart DateEnd Date Gasper Fong, IcftomxmhYplzkokygmd97/26/17 Mert Mcgovern MD Radiation Xnuomtfl33/27/17 Judi Howell [address] [place] [phone] [facility]09/21/22 Mila Briscoe RN [address] [facility] [place] [address] Specialty Care CoordinatorHematology/Oncology05/05/23 Raphael Jolley PA-C [address] [place] [address] Physician AssistantHematology/Oncology05/05/23 Michael Britton MD [address] [place] [address] PhysicianHematology/Oncology11/15/23Team MemberRelationshipSpecialtyStart DateEnd Date Gasper Fong, ErlijfidsPnuhjugjhwa83/26/17 Mert Mcgovern MD Radiation Chalytcy51/27/17 Judi Howell [address] [place] [phone] [facility]09/21/22 Mila Briscoe RN [address] [facility] [place] [address] Specialty Care CoordinatorHematology/Oncology05/05/23 Raphael Jolley PA-C [address] [facility] [place] [address] Physician AssistantHematology/Oncology05/05/23 Michael Britton MD [address] [facility] [place] [address] PhysicianHematology/Oncology11/15/23Team MemberRelationshipSpecialtyStart DateEnd Date Merry Mejias DO [address] [place] [address] Referring PhysicianNeurolog03/14/24Team MemberRelationshipSpecialtyStart DateEnd Date Gasper Fong VvicjlwelRmelinefmpm89/26/17 Mert Mcgovern MD Radiation Sqsuqbbf71/27/17 Judi Howell [address] [place] [phone] Family Medicine09/21/22 Mila Briscoe, RN [address] [facility] [place] [address] Specialty Care CoordinatorHematology/Oncology05/05/23 Raphael Jolley PA-C [address] [facility] [place] [address] Physician AssistantHematology/Oncology05/05/23 Michael Britton MD [address] [facility] [place] [address] PhysicianHematology/Oncology9/4/24Team MemberRelationshipSpecialtyStart DateEnd Date Merry Mejias DO [address] [place] [address] Referring PhysicianNeurolog03/14/24Team MemberRelationshipSpecialtyStart DateEnd Date Merry Mejias DO [address] [place] [address] Referring PhysicianNeurolog03/14/24Team MemberRelationshipSpecialtyStart DateEnd Date Gasper Fong DO PtxknvqlbCfksjilfxtr79/26/17 Mert Mcgovern MD Radiation Bgynnwwn11/27/17 Judi oHwell [address] [place] [phone] Family Medicine09/21/22 Mila Briscoe, RN [address] [facility] [place] [address] Specialty Care CoordinatorHematology/Oncology05/05/23 Raphael Jolley, PA-C [address] [facility] [place] [address] Physician AssistantHematology/Oncology05/05/23 Michael Britton MD [address] [facility] [place] [address] PhysicianHematology/Oncology11/15/23Team MemberRelationshipSpecialtyStart DateEnd Date Gasper Fong DO BjtqmcvmcLicixeiqykw77/26/17 Mert Mcgovern MD Radiation Raeeabyj91/27/17 Judi [place] [address] [place] [phone] [facility]09/21/22 Mila Briscoe, RN [address] [facility] [place] [address] Specialty Care CoordinatorHematology/Oncology05/05/23 Raphael Jolley PA-C [facility] [address] [facility] [place] [address] Physician AssistantHematology/Oncology05/05/23 Michael Britton MD [address] [facility] [place] [address] PhysicianHematology/Oncology11/15/23Team MemberRelationshipSpecialtyStart DateEnd Date Ajit Gasper MendozaDO XywsbcgqoJlddrizqnax24/26/17 Mert Mcgovern MD Radiation Niuuoulb62/27/17 Judi [place] [address] [place] [address] [facility]09/21/22 Mila Briscoe, RN [address] [facility] [place] [address] Specialty Care CoordinatorHematology/Oncology05/05/23 Raphael Jolley PAShy [address] [facility] [place] [address] Physician AssistantHematology/Oncology05/05/23 Michael Britton MD [address] [facility] [place] [address] PhysicianHematology/Oncology11/15/23Team MemberRelationshipSpecialtyStart DateEnd Date Gasper Fong DO MxgmdeuvdTnqaccbbxhx18/26/17 Mert Mcgovern MD Radiation Eghmlxhf29/27/17 Judi [place]ell [address] [place] [phone] Family Medicine09/21/22 Mila Briscoe RN [address] [facility] [place] [address] Specialty Care CoordinatorHematology/Oncology05/05/23 Raphael Jolley PA-C [address] [facility] [place] [address] Physician AssistantHematology/Oncology05/05/23 Michael Britton MD [address] [facility] [place] [address] PhysicianHematology/Oncology11/15/23Team MemberRelationshipSpecialtyStart DateEnd Date Gasper Fong DO PrwdddqgkUayodqwhstp49/26/17 Mert Mcgovern MD Radiation Buyittar15/27/17 Judi [place]ell [address] [place] [phone] [facility]09/21/22 Mila Briscoe, RN [address] [facility] [place] [address] Specialty Care CoordinatorHematology/Oncology05/05/23 Raphael Jolley PA-C [address] [place] [address] [place] [address] Physician AssistantHematology/Oncology05/05/23 Michael Britton MD [address] [place] [address] [place] [address] PhysicianHematology/Oncology11/15/23 Shyla Mayer APRN.MULTIGRAPH OPERATOR [address] [place] [address] [place] [address] Nurse PractitionerHematology/Oncology07/25/24Team MemberRelationshipSpecialty Start DateEnd Date Gasper FongDO PixciujuqBsznkmsndgx11/26/17 Mert Mcgovern MD Radiation Toynllww28/27/17 Judi [place]ell [address] [place] [phone] [facility]09/21/22 Mila Briscoe, RN [address] [facility] [place] [address] Specialty Care CoordinatorHematology/Oncology05/05/23 Raphael Jolley PA-C [address] [place] [address] [place] [address] Physician AssistantHematology/Oncology05/05/23 Michael Britton MD [address] [place] [address] [place] [address] PhysicianHematology/Oncology11/15/23 Shyla Mayer, MEAT TEAM LEAD.MULTIGRAPH OPERATOR [address] [place] [address] [place] [address] Nurse PractitionerHematology/Oncology07/25/24Team MemberRelationshipSpecialty Start DateEnd Date Gasper FongDO JyvhipnstYndibfulgko59/26/17 Mert Mcgovern MD Radiation Gngbfsie23/27/17 Judi [place]ell [address] [place] [address] Family Medicine09/21/22 Mila Briscoe, RN [address] [place] [address] [place] [address] Specialty Care CoordinatorHematology/Oncology05/05/23 Raphael Jolley PA-C [address] [place] [address] [place] [address] Physician AssistantHematology/Oncology05/05/23 Michael Britton MD [address] [place] [address] [place] [address] PhysicianHematology/Oncology11/15/23 Shyla Mayer, MEAT TEAM LEAD.MULTIGRAPH OPERATOR [address] [place] [address] [place] [address] Nurse PractitionerHematology/Oncology07/25/24Team MemberRelationshipSpecialty Start DateEnd Date Gasper Fong DO IieugnyxeZzbehxddbrl14/26/17 Mert Mcgovern MD Radiation Phlbagyi97/27/17 Judi [place]ell [address] [place] [address] Family Medicine09/21/22 Mila Briscoe RN [address] [facility] [place] [address] Specialty Care CoordinatorHematology/Oncology05/05/23 Raphael Jolley PA-C [address] [facility] [place] [address] Physician AssistantHematology/Oncology05/05/23 Michael Britton MD [address] [facility] [place] [address] PhysicianHematology/Oncology11/15/23 Shyla Mayer APRN.MULTIGRAPH OPERATOR [address] [facility] [place] [address] Nurse PractitionerHematology/Oncology07/25/24Team MemberRelationshipSpecialty Start DateEnd Date Gasper FongDO ZxfslulbbZrqgfpaigtg54/26/17 Mert Mcgovern MD Radiation Nswdiuem45/27/17 Judi [place]ell [address] [place] [phone] [facility] Medicine09/21/22 Mila Briscoe, RN [address] [facility] [place] [address] Specialty Care CoordinatorHematology/Oncology05/05/23 Raphael Jolley, VICKI [address] [place] [address] [place] [address] Physician AssistantHematology/Oncology05/05/23 Michael Britton MD [address] [facility] [place] [address] PhysicianHematology/Oncology11/15/23 Shyla Mayer APRN.MULTIGRAPH OPERATOR [address] [facility] [place] [address] Nurse PractitionerHematology/Oncology07/25/24Team MemberRelationshipSpecialty Start DateEnd Date Ajit Gasper MendozaDO QfddmthojLnyewpwhvad80/26/17 Mert Mcgovern MD Radiation Zvfwisig53/27/17 Judi [place] [address] [place] [address] [facility] Medicine09/21/22 Mila Briscoe, RN [address] [facility] [place] [address] Specialty Care CoordinatorHematology/Oncology05/05/23 Raphael Jolley PA-C [address] [place] [address] [place] [address] Physician AssistantHematology/Oncology05/05/23 Michael Britton MD [address] [facility] [place] [address] PhysicianHematology/Oncology11/15/23 Shyla Mayer, KYLEIGH.MULTIGRAPH OPERATOR [address] [facility] [place] [address] Nurse PractitionerHematology/Oncology07/25/24Team MemberRelationshipSpecialty Start DateEnd Date Gasper FongDO EpctetmalBrzkthqwcta42/26/17 Mert Mcgovern MD Radiation Oepxinop70/27/17 Judi [place] [address] [place] [address] Family Medicine09/21/22 Mila Briscoe, RN [address] [facility] [place] [address] Specialty Care CoordinatorHematology/Oncology05/05/23 Raphael Jolley PA-C [address] [facility] [place] [address] Physician AssistantHematology/Oncology05/05/23 Michael Britton MD [address] [facility] [place] [address] PhysicianHematology/Oncology11/15/23 Shyla Mayer, KYLEIGH.MULTIGRAPH OPERATOR [address] [facility] [place] [address] Nurse PractitionerHematology/Oncology07/25/24Team MemberRelationshipSpecialty Start DateEnd Date Gasper Fong DO GrmqbyaopElfjhhccuhe11/26/17 Mert Mcgovern MD Radiation Jipjvmhw22/27/17 Judi [place]ell [address] [place] [address] Family Medicine09/21/22 Mila Briscoe, RN [address] [facility] [address] [place] [address] Specialty Care CoordinatorHematology/Oncology05/05/23 Raphael Jolley PA-C [address] [facility] [address] [place], [facility]70 Physician AssistantHematology/Oncology05/05/23 Michael Britton MD [address] [facility] [place] [address] PhysicianHematology/Oncology11/15/23 Shyla Mayer APRN.MULTIGRAPH OPERATOR [address] [facility] [address] [place], [facility]70 Nurse PractitionerHematology/Oncology07/25/24Team MemberRelationshipSpecialty Start DateEnd Date Gasper Fong DO DskayvbnwTydnozzlgsl57/26/17 Mert Mcgovern MD Radiation Wlisqbny68/27/17 Judi [place]ell [address] [place] [phone] [facility]09/21/22 Mila Briscoe, RN [address] [facility] [place] [address] Specialty Care CoordinatorHematology/Oncology05/05/23 Raphael Jolley, KATIEC [address] [place] [address] [place] [address] Physician AssistantHematology/Oncology05/05/23 Michael Britton MD [address] [place] [address] [place] [address] PhysicianHematology/Oncology11/15/23 Shyla Mayer APRN.MULTIGRAPH OPERATOR [address] [place] [address] [place] [address] Nurse PractitionerHematology/Oncology07/25/24Team MemberRelationshipSpecialty Start DateEnd Date Gasper FongwDO DuilyjpesWzcjvnxiubz48/26/17 Mert Mcgovern MD Radiation Mxxaevqg53/27/17 Judi [place]ell [address] [place] [address] [facility]09/21/22 Mila Briscoe, RN [address] [facility] [place] [address] Specialty Care CoordinatorHematology/Oncology05/05/23 Raphael Jolley PA-C [address] [place] [address] [place] [address] Physician AssistantHematology/Oncology05/05/23 Michael Britton MD [address] [facility] [place] [address] PhysicianHematology/Oncology11/15/23 Shyla Mayer, MEAT TEAM LEAD.MULTIGRAPH OPERATOR [address] [facility] [place] [address] Nurse PractitionerHematology/Oncology07/25/24Team MemberRelationshipSpecialty Start DateEnd Date Ajit Gasper MendozaDO DjtapdsneGdhnokwyowr78/26/17 Mert Mcgovern MD Radiation Ykysnfhr09/27/17 Judi [place]ell [address] [place] [address] Family Medicine09/21/22 Mila Briscoe, RN [address] [facility] [place] [address] Specialty Care CoordinatorHematology/Oncology05/05/23 Raphael Jolley, PA-C [address] [place] [address] [place] [address] Physician AssistantHematology/Oncology05/05/23 Michael Britton MD [address] [facility] [place] [address] PhysicianHematology/Oncology11/15/23 Shyla Mayer, MEAT TEAM LEAD.MULTIGRAPH OPERATOR [address] [facility] [place] [address] Nurse PractitionerHematology/Oncology07/25/24 Team Status: Inactive Member Role Status Dates PHYSICIAN NO FAMILY Primary Care Provider Active Start: October 28, 2024 End: October 28, 2024Aneta Bennett APRN-FNP-CAttending ProviderActiveStart: October 28, 2024 End: October 28, 2024Team MemberRelationshipSpecialtyStart DateEnd Date Merry Mejias DO [address] [place] [address] Referring PhysicianNeurolog03/14/24Team MemberRelationshipSpecialtyStart DateEnd Date Merry Mejias DO [address] [address] Referring PhysicianNeurolog03/14/24Team MemberRelationshipSpecialtyStart DateEnd Date Gasper Fong DO WhfddurgxWnmpekpajtn91/26/17 Mert Mcgovern MD Radiation Jujnkjqf48/27/17 Judi [place]ell [address] [place] [address] Family Medicine09/21/22 Mila Briscoe RN [address] [facility] [place] [address] Specialty Care CoordinatorHematology/Oncology05/05/23 Raphael Jolley PABenC [address] [place], [place] [address] [address] Physician AssistantHematology/Oncology05/05/23 Michael Britton MD [address] [place] [address] [place] [address] PhysicianHematology/Oncology11/15/23 Shyla Mayer APRN.MULTIGRAPH OPERATOR [address] [facility] [place] [address] Nurse PractitionerHematology/Oncology07/25/24Team MemberRelationshipSpecialty Start DateEnd Date Gasper Fong DO IbylapvpzVytdfmoksqy65/26/17 Mert Mcgovern MD Radiation Snzssvys21/27/17 Judi Howell [address] [place] [address] Family Medicine09/21/22 Mila Briscoe, RN [address] [facility] [place] [address] Specialty Care CoordinatorHematology/Oncology05/05/23 Raphael Jolley, PA-C [address] [facility] [place] [address] Physician AssistantHematology/Oncology05/05/23 Michael Britton MD [address] [facility] [place] [address] PhysicianHematology/Oncology11/15/23 Shyla Mayer APRN.MULTIGRAPH OPERATOR [address] [facility] [place] [address] Nurse PractitionerHematology/Oncology07/25/24Team MemberRelationshipSpecialty Start DateEnd Date Gasper Fong DO NqmktvxbtZkhkqurgxin19/26/17 Mert Mcgovern MD Radiation Frccndqt81/27/17 Judi Howell [address] [place] [address] Family Medicine09/21/22 Mila Briscoe RN [address] [facility] [place] [address] Specialty Care CoordinatorHematology/Oncology05/05/23 Raphael Jolley PA-C [address] [place] [address] [place] [address] Physician AssistantHematology/Oncology05/05/23 Michael Britton MD [address] [facility] [place] [address] PhysicianHematology/Oncology11/15/23 Shyla Mayer APRN.MULTIGRAPH OPERATOR [address] [facility] [place] [address] Nurse PractitionerHematology/Oncology07/25/24 Reason for Visit (unrecogniz ed section and content) ReasonCommentsRadiology CTSpecialtyDiagnoses / ProceduresReferred By Contact Referred To ContactADMITTING Diagnoses 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] Procedures STEREOTACTIC RADIOSURGERY 1 COMPLEX CRANIAL LES STEREOTACTIC RADIOSURGERY 1 COMPLEX CRANIAL LESION [facility] [address] [place] [id number] Referral IDStatusReasonStart DateExpiration DateVisits RequestedVisits [id number] MRIReasonCommentsResultsReason CommentsCare CoordinationCT ResultsReasonCommentsLung Cancer6 month follow up ReasonCommentsReferral InformationReasonCommentsLung Cancerfollow up after imagingReasonCommentsReferral InformationNeurologyReasonCommentsCare Coordinationlab resultsReasonCommentsPatient QuestionReasonCommentsReferral InformationCare CoordinationUrology referralReasonCommentsLung Cancer Cerebrovascular accident (CVA) due to occlusion of small arReasonCommentsRefill RequestReasonOnset DateCommentsBronchoscopy Uekthhdzzv78/25/2023Initial Bronch RequestReasonCommentsCare CoordinationClinical updateReasonCommentsAppointment Cisco Consultant - OtherReasonCommentsLung CancerFollow upSpecialtyDiagnoses / ProceduresReferred By ContactReferred To ContactADMITTING Diagnoses Bronchiolar disease Procedures [facility] INCL FLUOR GDNCE DX W/CELL WASHG SPX BRONCHOSCOPY FLEXIBLE ADULT [facility] [place] [address] Referral IDStatusReasonStart DateExpiration DateVisits RequestedVisits [id number] CoordinationMRI ResultsReasonComments SpirometrySpecialtyDiagnoses / ProceduresReferred By ContactReferred To Contact [facility] Diagnoses Malignant neoplasm of upper lobe of left lung (HCC) Procedures LUNG DIFFUSION CAPACITY (DLCO) DIFFUSING CAPACITY Evette Walden MD [address] [place] [address] [facility] [address] [place] [address] Referral IDStatusReasonStspringfield DateExpiration DateVisits RequestedVisits [id number] Auto-Generated Referral /[id number] / ProceduresReferred By ContactReferred To [facility] [place] Diagnoses Malignant neoplasm of upper lobe of left lung (HCC) Procedures SPIROMETRY WITH DILATOR IF OBSTRUCTED BRNCDILAT RSPSE SPMTRY PRE&POST-BRNCDILAT ADMN Evette Walden MD [address] [place] [address] [address] Referral IDStatusReasonStart DateExpiration DateVisits RequestedVisits [id number] Auto-Generated Referral /[id number]tstWdpuperiBvvudiflv NMSpecialty Diagnoses / ProceduresReferred By ContactReferred To ContactMOLECULAR & FUNCTIONAL IMAGING Diagnoses Malignant neoplasm of unspecified part of unspecified bronchus or lung (HCC) Pre-op testing SOB (shortness of breath) Encounter for other preprocedural examination Procedures NM CARDIAC PERF STRESS/EXERCISE MYOCARDIAL SPECT MULTIPLE STUDIES Evette Walden MD [address] [place] [address] Molecular [facility] Functional Imaging [address] [place] [address] Referral IDStatusReasonStart DateExpiration DateVisits RequestedVisits [id number] Auto-Generated Referral /[id number]-Au VisitReasonCommentsFirst Time Treatment EducationReasonCommentsLab OrdersReasonCommentsLung CancerTreatment visitSpecialtyDiagnoses / ProceduresReferred By ContactReferred To Contact Diagnoses Malignant neoplasm of hilus of lung, unspecified laterality (HCC) Malignant neoplasm of upper lobe of left lung (HCC) Procedures INJ PEMBROLIZUMAB Otoniel Adhikari MD [address] [place] [address] [facility] [address] [place] [address] Referral IDStatusReasonHanalei DateExpiration DateVisits RequestedVisits [id number]/3/202310/[id number] JxozprwoxiiiN2K0 treatment follow up callReasonCommentsCare Coordination Discoloration of left ring fingerSpecialtyDiagnoses / ProceduresReferred By ContactReferred To ContactMR IMAGING Diagnoses Malignant neoplasm of lower lobe of left lung (HCC) Procedures MRI BRAIN WO/W IVCON MRI BRAIN BRAIN STEM W/O W/CONTRAST MATERIAL Otoniel Adhikari MD [address] [place], [place] [address] Mr [facility]95 Referral IDStatusReasonStart DateExpiration DateVisits RequestedVisits [id number] Auto-Generated Referral /[id number] CancerReasonCommentsLung CancerTreatment visitReasonCommentsCare CoordinationMRI resultsReasonCommentsLung Cancer2 week follow upReasonCommentsLung Cancer3 week follow upReasonCommentsCare CoordinationPET resultsReasonCommentsLung CancerOTVReferral IDStatusReasonStart DateExpiration DateVisits RequestedVisits [id number]/3/[id number] IDStatusReasonStart DateExpiration DateVisits Requested Visits [id number]/9/20245/[id number] UpdateReasonOnset DateCommentsRefill Yfjbnix02/23/2024ReasonCommentsCare CoordinationLab ordersReasonCommentsCare CoordinationStable CT resultsReason CommentsLung CancerOTVReasonCommentsReferral InformationPodiatryReasonComments Lung CancerTOCReasonCommentsRadiology CTSpecialtyDiagnoses / ProceduresReferred By ContactReferred To ContactCT IMAGING Diagnoses Malignant neoplasm of hilus of lung, unspecified laterality (HCC) Procedures CT CHEST W IVCON DIAGNOSTIC COMPUTED TOMOGRAPHY THORAX W/CONTRAST Otoniel Adhikari MD [address] [place], [place] [address] [facility] [place] [address] Referral IDStatusReasonStart DateExpiration DateVisits RequestedVisits [id number] Auto-Generated Referral /[id number] / ProceduresReferred By ContactReferred To ContactMOLECULAR & FUNCTIONAL IMAGING Diagnoses Malignant neoplasm of hilus of lung, unspecified laterality (HCC) Malaise and fatigue Malignant neoplasm of unspecified part of unspecified bronchus or lung (HCC) Procedures NM PET/CT SKULL-THIGH SUBSEQUENT PET IMAGING CT ATTENUATION SKULL BASE MID-THIGH Raphael Jolley PA-C [address] [place] [address] Molecular & Functional Imaging [address] [place] [address] Referral IDStatusReasonStart DateExpiration DateVisits RequestedVisits [id number] Auto-Generated Referral /[id number] / ProceduresReferred By ContactReferred To ContactMOLECULAR & FUNCTIONAL IMAGING Diagnoses Malignant neoplasm of upper lobe of left lung (HCC) Procedures NM PET/CT SKULL-THIGH SUBSEQUENT PET IMAGING CT ATTENUATION SKULL BASE MID-THIGH Otoniel Adhikari MD [address] [place] [address] Molecular & Functional Imaging [address] [place] [address] Referral IDStatusReasonStart DateExpiration DateVisits RequestedVisits [id number] Auto-Generated Referral /[id number] / ProceduresReferred By ContactReferred To ContactMOLECULAR & FUNCTIONAL IMAGING Diagnoses Neoplasm of lung Procedures NM PET/CT SKULL-THIGH INITIAL PET IMAGING CT ATTENUATION SKULL BASE MID-THIGH Otoniel Adhikari MD [address] [place] [address] Molecular & Functional Imaging [address] [place] [address] Referral IDStatusReasonStart DateExpiration DateVisits RequestedVisits [id number] Auto-Generated Referral /[id number] / ProceduresReferred By ContactReferred To ContactCT IMAGING Diagnoses Malignant neoplasm of unspecified part of unspecified bronchus or lung (HCC) Pre-op testing SOB (shortness of breath) Procedures CT CHEST W IVCON DIAGNOSTIC COMPUTED TOMOGRAPHY THORAX W/CONTRAST Evette Walden MD [address] [place] [address] [facility] [place] [address] Referral IDStatusReasonStart DateExpiration DateVisits RequestedVisits [id number] Auto-Generated Referral [id number] / ProceduresReferred By ContactReferred To ContactCT IMAGING Diagnoses Small cell carcinoma of lung, 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) Lung nodule Pre-op testing Procedures CT CHEST WO IVCON DIAGNOSTIC COMPUTED TOMOGRAPHY THORAX W/O CNTRST Dre Cantor MD [address] [place] [address] [facility] [place] [address] Referral IDStatusReasonStart DateExpiration DateVisits RequestedVisits [id number] Auto-Generated Referral [id number] / ProceduresReferred By ContactReferred To ContactCT IMAGING Diagnoses Malignant neoplasm of unspecified part of unspecified bronchus or lung (HCC) Procedures CT CHEST W IVCON DIAGNOSTIC COMPUTED TOMOGRAPHY THORAX W/CONTRAST Otoniel Adhikari MD [address] [place] [address] [facility] [place] [address] Referral IDStatusReasonStart DateExpiration DateVisits RequestedVisits [id number] Auto-Generated Referral /[id number] IDStatusReasonStart DateExpiration DateVisits RequestedVisits [id number] Auto-Generated Referral 1Referral IDStatusReasonStart DateExpiration DateVisits RequestedVisits [id number]/5/202312/31/[id number] / ProceduresReferred By ContactReferred To ContactCT IMAGING Diagnoses Malignant neoplasm of unspecified part of unspecified bronchus or lung (HCC) Procedures CT CHEST W IVCON CAT SCAN OF CHEST CONTRAST Otoniel Adhikari MD [address] [place] [address] [facility] [place] [address] Referral IDStatusReasonStart DateExpiration DateVisits RequestedVisits [id number] Auto-Generated Referral [id number] / ProceduresReferred By ContactReferred To ContactCT IMAGING Diagnoses Lung nodules Procedures CT CHEST W IVCON CAT SCAN OF CHEST CONTRAST Raphael Jolley PA-C [address] [place] [address] [facility] [place] [address] Referral IDStatusReasonStart DateExpiration DateVisits RequestedVisits [id number] Auto-Generated Referral ReasonOnset DateCommentsRefill Ewaaukr66/04/2024Reason CommentsMalaise and fatigueTreatment visitReasonOnset DateCommentsRefill Request 4ReasonCommentsRadiology NMSpecialtyDiagnoses / ProceduresReferred By ContactReferred To ContactMOLECULAR & FUNCTIONAL IMAGING Diagnoses Malignant neoplasm of unspecified part of unspecified bronchus or lung (HCC) Malignant neoplasm of hilus of lung, unspecified laterality (HCC) Malignant neoplasm of right lung, unspecified part of lung (HCC) 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) Procedures NM PET/CT SKULL-THIGH SUBSEQUENT PET IMAGING CT ATTENUATION SKULL BASE MID-THIGH Michael Britton MD [address] [place], [place] [id number] Molecular [facility] Functional Imaging [address] [place] [address] Referral IDStatusReasonStart DateExpiration DateVisits RequestedVisits [id number] Auto-Generated Referral [id number] CoordinationMRI resultsReason Onset DateCommentsRefill Azekayv94/21/2024ReasonCommentsMed Change RequestReason CommentsTriageInternal ReferralReasonCommentsAppointmentSpecialtyDiagnoses / ProceduresReferred By ContactReferred To Contact Diagnoses Malignant neoplasm of upper lobe of left lung (HCC) Malignant neoplasm of unspecified part of unspecified bronchus or lung Procedures INJ PEMBROLIZUMAB Otoniel Adhikari MD [address] [place] [address] [facility] [address] [place] [address] ReasonCommentsNew PatientReasonCommentsPreparations For ProceduresGKRSReason CommentsProcedureGKRSSpecialtyDiagnoses / ProceduresReferred By ContactReferred To ContactADMITTING Diagnoses 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] Procedures STEREOTACTIC RADIOSURGERY 1 COMPLEX CRANIAL LES STEREOTACTIC RADIOSURGERY 1 COMPLEX CRANIAL LESION [facility] [address] [place] [address] ReasonOnset DateCommentsLab 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Follow upReasonCommentsStrokeMigraineReasonCommentsLung CancerReasonOnset DateCommentsRefill Wkclklz5904/28/2024SpecialtyDiagnoses / ProceduresReferred By ContactReferred To ContactMOLECULAR & FUNCTIONAL IMAGING Diagnoses 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) Malignant neoplasm of right lung, unspecified part of lung (HCC) 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, unspecified laterality (HCC) Procedures NM PET/CT SKULL-THIGH SUBSEQUENT PET IMAGING CT ATTENUATION SKULL BASE MID-THIGH Michael Britton MD [address] [place] [address] [place] [address] Phone: tel: fax: Molecular Imaging [address] [place], [place] [id number] Phone: tel: Referral IDStatusReasonStart DateExpiration DateVisits RequestedVisits [id number] Auto-Generated Referral /[id number]w CoordinationPET resultsReasonOnset DateCommentsRefill Gbczbtx9706/05/2024ReasonCommentsCare CoordinationTreatment UpdateReasonOnset DateCommentsRefill Hdwcmdf3107/24/2024Keytruda rx to send to [facility] SpecReasonOnset DateCommentsRefill Hpbfkyk7308/15/2024ReasonComments Medication UpdateKeytruda whitebag updateSpecialtyDiagnoses / ProceduresReferred By ContactReferred To ContactMOLECULAR & FUNCTIONAL IMAGING Diagnoses Malignant neoplasm of unspecified part of unspecified bronchus or lung (HCC) Procedures NM PET/CT SKULL-THIGH SUBSEQUENT PET IMAGING CT ATTENUATION SKULL BASE MID-THIGH Shyla Mayer, [employer].[address] [place] [address] Phone: tel: fax: Molecular Imaging [address] [place] [address] Phone: tel: Referral IDStatusReasonStart DateExpiration DateVisits RequestedVisits [id number] Auto-Generated Referral /[id number] DateCommentsRefill Xvstbdv9609/10/2024ReasonComments Future AppointmentReasonCommentsPatient UpdateCare CoordinationVomiting- cancelled appointmentReasonCommentsCare CoordinationColonoscopyReasonComments Mouth LesionsNew Patient : tongue lesion on PET Goals (unrecognized section and content) Goals may be documented in a n alternate section INFORMATION SOURCE (unrecogn ized section and content) DATE CREATED AUTHOR 12/12/2021 [facility] DATE CREATED AUTHOR AUTHOR'S ORGANIZ ATION 04/16/2022 [facility] DATE CREATED AUTHOR AUTHOR'S ORGANIZ ATION 07/11/2022 [facility] DATE CREATED AUTHOR AUTHOR'S ORGANIZ ATION 11/25/2022 [facility] DATE CREATED AUTHOR AUTHOR'S ORGANIZ ATION 03/02/2024 [facility] DATE CREATED AUTHOR AUTHOR'S ORGANIZ ATION 11/02/2024 [facility] DATE CREATED AUTHOR AUTHOR'S ORGANIZ ATION 12/05/2024 [facility] DATE CREATED AUTHOR AUTHOR'S ORGANIZ ATION 01/03/2025 [facility] Inactive Administered Medications - up to 3 most recent administrations Administered Medications (un recognized section and content) Medication OrderMAR ActionAction DateDoseRateSite pembrolizumab 200 mg in NaCl 0.9% 66 mL (KEYTRUDA) 200 mg, INTRAVENOUS, Administer over 30 Minutes, ONCE, 1 dose, On Mon05/09/23 at 1500, Approx TotalVolume: 66 mL EXP 209905/09/23 Administer with 0.2 micron filter. New Bag/Syringe/Bbrssd2905/09/2023 3:16 PM [id number] mgMedication OrderMAR Action Action DateDoseRateSite pembrolizumab 200 mg in NaCl 0.9% 66 mL (KEYTRUDA) 200 mg, INTRAVENOUS, Administer over 30 Minutes, ONCE, 1 dose, On Mon05/30/23 at 1400, Approx TotalVolume: 66 mL EXP 199905/30/23 Administer with 0.2 micron filter. New Bag/Syringe/Xevlnl3405/30/2023 2:08 PM [id number] mgMedication OrderMAR Action Action DateDoseRateSite pembrolizumab 200 mg in NaCl 0.9% 66 mL (KEYTRUDA) 200 mg, INTRAVENOUS, Administer over 30 Minutes, ONCE, 1 dose, On Mon06/20/23 at 1400, Approx Total Volume: 66 mL EXP: 06/20/2023 2000 RT Administer with 0.2 micron filter. New Bag/Syringe/Ssjhey2706/20/2023 2:20 PM [id number] mg FOR RECORDS PERTAINING TO PATIENTS WHO [...] BE BASED ON THE PRIMARY CLINICAL RECORDS. [facility]. provides no warranty or guarantee of the accuracy or completeness of information in this document.
== END 2025-01-08 14:16 | disposition home or self-care (01) ==
LOC: US 14:15
PROVIDERS: Visit Provider Physician Assistant Medical
DX: R60.9 Edema, unspecified (principal)
CPT/HCPCS: 93970